=== PATIENT | male | born 1945 | race Caucasian/White ===

== ENCOUNTER → 2017-09-20 17:31 | Outpatient (CLI) | payer MEDICARE, OTHER, SELFPAY ==
--- NOTE | 2017-09-20 12:20 | COLBX_PTH ---
PATIENT: TOMMY KLEIN LOC: [facility] U#:[id number] AGE/SX: 79/M ROOM: RE09/20/[address]: Dr. Mg Norman MD : 1945 BED: DIS: SPEC #: [id number] RECD: 09/20/17 15:33 STATUS: ROHIT JJ #: [id number] ALEYDA: 09/20/17 12:[address]: Mg Norman DEPT: SURGICAL PATHOLOGY RECD BY: Aamir Corea ENTERED: 09/23/17 07:54 SP TYPE: COLON BX OTHR DR: Dr. Denisa Macias, [facility] Tissues: Rectum, NOS Procedures: Surgery Specimen Level IV HEADER OPERATION: Colonoscopy with polypectomy PRE-OP DIAGNOSIS: Rectal bleeding TISSUE SUBMITTED: Rectal polyp MICROSCOPIC DIAGNOSIS Rectal polyp, polypectomy: Fragments of fecal material. Colonic mucosal tissue is not identified. SJ:scott 09/24/18 MICROSCOPIC DESCRIPTION Slides are reviewed. GROSS DESCRIPTION Received in fixative is one container labeled with the patient's name and designated rectal polyp. The specimen predominantly consists of fecal material mixed with possible soares soft tissue, measuring in aggregate 2.5 x 0.6 x 0.1 cm. The specimen is totally submitted in one cassette. BIJU:scott 09/23/17 TC: cannot code CPT: 45200
== END ==
PROVIDERS: Family Provider Internal Medicine; PCP Internal Medicine; Visit Provider Internal Medicine Gastroenterology
DX: K62.1 Rectal polyp (principal)
CPT/HCPCS: 88305

== ENCOUNTER → 2018-02-07 15:04 | Outpatient (CLI) | payer MEDICARE, OTHER, SELFPAY ==
--- NOTE | 2018-02-07 12:17 | RAD_ITS ---
STUDY: X-RAY - RIGHT HAND REASON FOR EXAM: Male, 72 years old. Pain, possible foreign body TECHNIQUE: 2 view(s) of the hand. COMPARISON: None. FINDINGS: Normal radiocarpal articulation. Normal distal radioulnar joint. Normal visualized carpal bones. Normal carpal articulations Normal carpometacarpal articulation of the thumb. Normal second through fifth carpometacarpal joints. Normal metacarpi. There is degenerative arthrosis of the metacarpophalangeal (MCP) joints. Normal interphalangeal joint of the thumb. Normal proximal and distal phalanges of the thumb. Normal metacarpophalangeal joints of the second through fifth fingers. Normal proximal and distal interphalangeal joints of the second through fifth fingers. Normal phalanges of the second through fifth fingers. There is mild soft tissue swelling and a possible foreign body projecting adjacent to the first metacarpal seen only on the lateral view. RAD/Hand 2 Views IMPRESSION: Possible foreign body near the site of entrance marked on the film on the lateral film seen adjacent to the mid first metacarpal Mild arthrosis No demonstrated fracture Electronically Signed: Endy Perla MD at 9:21 EST , Service support ,
== END ==
PROVIDERS: Family Provider Internal Medicine; PCP Internal Medicine; Referring Provider Internal Medicine; Visit Provider Internal Medicine
DX: M79.641 Pain in right hand (principal)
CPT/HCPCS: 73120

== ENCOUNTER → 2018-04-01 13:14 | Outpatient (CLI) | payer MEDICARE, OTHER, SELFPAY ==
[2018-02-27 14:47] VITALS: BMI 29.3
--- NOTE | 2018-04-01 13:19 | US_ITS ---
STUDY: ABDOMINAL ULTRASOUND - RIGHT UPPER QUADRANT REASON FOR VISIT: Male, 72 years old. One-month history of epigastric pain and nausea. TECHNIQUE: Ultrasound evaluation of the right upper quadrant was performed with real-time and static lares-scale imaging. TECHNICAL QUALITY: Adequate. COMPARISON: None. FINDINGS: Liver: The liver measures 16.9 cm. There is normal echogenicity of the liver. The bile ducts are within normal limits. There is hepatic color flow. The direction of portal flow is hepatopetal. There is no demonstrated mass lesion. Gallbladder: Normal distended gallbladder. The gallbladder wall measures 2.4 mm. There is a negative sonographic Arcos's sign. There is no pericholecystic fluid. There are no gallstones. Common Bile Duct (C.B.D.): The common bile duct measures 4.5 mm. Pancreas: Normal size of the head, body and tail of the pancreas. There is increased echogenicity of the pancreas. There is no demonstrated pancreatic mass or cyst. Right Kidney: Normal size of the right kidney. The right kidney measures 12.7 cm x 4.9 cm x 6.6 cm. Normal renal cortex. The right cortex measures 2.0 cm. There is a 1.2 cm x 1 cm x 0.9 cm cyst arising from the lateral aspect of the right kidney. There is no right hydronephrosis. US/Abdomen Limited IMPRESSION: Normal right upper quadrant ultrasound examination. Small right renal cyst. Electronically Signed: Jakob Hunt MD at 14:49 EST Tel [phone], Service support ,
== END ==
PROVIDERS: Family Provider Internal Medicine; PCP Internal Medicine; Referring Provider Internal Medicine; Visit Provider Internal Medicine
DX: R10.13 Epigastric pain (principal)
CPT/HCPCS: 76705

== ENCOUNTER → 2018-04-14 11:18 | Outpatient (CLI) | payer MEDICARE, OTHER, SELFPAY ==
[2018-02-27 14:47] VITALS: BMI 29.3
--- NOTE | 2018-04-14 11:21 | NM_ITS ---
CLINICAL: 72-year-old male with reported history of right upper quadrant abdominal pain. RADIONUCLIDE HEPATOBILIARY SCINTIGRAPHY COMPARISON: Previous CCK hepatobiliary scintigraphy study dated 12/24/2011, abdominal ultrasound report 04/01/2018 FINDINGS: Following the intravenous administration of 5.4 mCi of 99m Tc Mebrofenin, hepatobiliary images reveal: 1. Relatively prompt and homogeneous radiopharmaceutical concentration is noted by a normal sized liver. No parenchymal defects are identified. 2. Gallbladder activity is identified at 10 minutes post radiopharmaceutical administration. 3. Small intestinal tract is observed at 15 minutes following tracer injection. 4. Washout of the radiopharmaceutical by the hepatic parenchyma appears qualitatively normal. Cholecystokinin (0.02 ug/kg) was administered intravenously over a 30-minute period. The post CCK gallbladder ejection fraction calculated at 20 minutes following Cholecystokinin administration was noted to be 93.0 % (normal greater than 35%). During 30 minutes of post CCK imaging, there is no scintigraphic evidence of reflux of the radiotracer into the common hepatic duct or refilling of the gallbladder. 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 NM/Hepatobilliary Img w/Pharm Int IMPRESSION: 1. A gallbladder ejection fraction calculated to be greater than 35% following the administration of Cholecystokinin makes the probability of functional hepatobiliary disease (gallbladder and/or sphincter of Oddi dyskinesia) and/or organic hepatobiliary disease (chronic acalculous cholecystitis and/or cystic duct syndrome) to be low. (Sandy Juan et al, Journal of Nuclear Medicine 32:1695, 1990). 2. There is scintigraphic evidence of transient post CCK duodenal-gastric reflux. (Elza et al, Nucl Med Angelika Corinne Press pg. 35, 1980). 3 . Overall compared to the previous CCK hepatobiliary scintigraphy study dated 12/24/2011, there is no significant interval change. Electronically Signed: Aamir Richmond DO at 23:46 EST Tel , Service support ,
--- OUTSIDE RECORDS SUMMARY | 2018-06-16 21:41 | XMS RPT_ITS | Continuity of Care Document ---
:1945 External Reference #:[id number] Author Organization [facility] Address [address] [place] [address] Phone Care Team Providers Name Role Phone Colleen GARCIA Denisa Unavailable Physical Therapy, [facility] Unavailable Herberth Pollock Unavailable Lawrence Church MD Unavailable Baljit Arcos MD Unavailable Dr. Nik Ch Unavailable Rivera MAO MD , Jhonathan Zelaya Unavailable Santana Zayas Unavailable Dr. Abel Rojas Unavailable Dr. Mg Norman Unavailable Julio Crooks DO Unavailable ALICIA Edge Unavailable Unavailable Pranav Wilkins Unavailable Unavailable Unavailable Unavailable Problems Name Dates Details Abnormal TSH (R79.89, 790.6) Status: Active Adult hypothyroidism (E03.9, 244.9) Status: Active AK (actinic keratosis) (L57.0, 702.0) Status: Active Annual Medicare Physical WITH abnormal findings (Renamed from Encounter for general adult medical examination with abnormal findings) (Z00.01, V70.0) Status: Active Benign prostatic hyperplasia with urinary obstruction and other lower urinary tract symptoms (N40.1, 600.21) Status: Active Bloody stool (K92.1, 578.1) Status: Active BMI 27.0-27.9,adult (Z68.27, V85.23) Status: Active BMI 28.0-28.9,adult (Z68.28, V85.24) Status: Active BMI 28.0-28.9,adult (Z68.28, V85.24) Status: Active BMI 28.0-28.9,adult (Z68.28, V85.24) Status: Active Bronchitis (J40, 490) Status: Active Chronic anticoagulation (Z79.01, V58.61) Comments: plavix -- bc h/o TIA Status: Active Concussion, with loss of consciousness of 30 minutes or less, subsequent encounter (S06.0X1D, V58.89) Status: Active Controlled diabetes mellitus type II without complication (E11.9, 250.00) Comments: pt wants to stay on amaryl bc cost - risk of low bs and cva with age reviewed-- he will work on diet and exercise to bring down and then rev meds Status: Active Cough (R05, 786.2) Status: Active Decreased peripheral vibratory sense (R20.8, 782.0) Status: Active 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, 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) Status: Active Dizziness and giddiness (R42, 780.4) Status: Active EGD - 07-31-07 Status: Active Encounter for Medicare annual wellness exam (Z00.00, V70.0) Status: Active Encounter for screening for malignant neoplasm of colon (Renamed from Special screening for malignant neoplasms, colon) (Z12.11, V76.51) Comments: ordered cologard Status: Active Epigastric pain (R10.13, 789.06) Status: Active Episodic lightheadedness (R42, 780.4) Comments: last carotids ok -- ck vertebrals Status: Active Essential hypertension (I10, 401.9) Comments: spikning intermittently Status: Active Family history of other cardiovascular diseases (Z82.49, V17.4) Status: Active GERD (gastroesophageal reflux disease) (K21.9, 530.81) Status: Active Hand pain, right (M79.641, 729.5) Status: Active Heart Cath Status: Active Heart disease, hypertensive, malignant, 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, 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) Status: Active Heart disease, hypertensive, malignant, 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, 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) Comments: back pain has not let him exercising -- wt gain , bp up etc Status: Active Heart murmur (R01.1, 785.2) Status: Active Heart murmur (R01.1, 785.2) Comments: last echo 04/06 Status: Active Heart murmur, aortic (I35.8, 424.1) Status: Active Heart murmur, systolic (R01.1, 785.2) Status: Active History of transient cerebral ischemia (Renamed from H/O transient cerebral ischemia) (Z86.73, V12.54) Status: Active Hypercholesterolemia (E78.00, 272.0) Status: Active Hypothyroidism (E03.9, 244.9) Status: Active Impingement syndrome of shoulder region, unspecified laterality (M75.40, 726.2) Status: Active Impotence (N52.9, 607.84) Status: Active Injury by nail (W45.0XXA, E920.8) Status: Active Insomnia, unspecified (G47.00, 780.52) Status: Active Low back pain potentially associated with radiculopathy (M54.5, 724.2) Comments: failure to improve after all conservative measures Status: Active Memory loss (R41.3, 780.93) Status: Active MILD SQUAMOUS CELL ATYPIA Status: Active Nausea (R11.0, 787.02) Status: Active Need for pneumococcal vaccination (Z23, V03.82) Status: Active Need for prophylactic vaccination (Renamed from Need for immunization against influenza) (Z23, V04.81) Status: Active Need for prophylactic vaccination and inoculation against influenza (Z23, V04.81) Status: Active Need for prophylactic vaccination and inoculation against influenza (Z23, V04.81) Status: Active Non-smoker (Z78.9, V49.89) Status: Active Non-smoker (Z78.9, V49.89) Status: Active Nutritional counseling (Z71.3, V65.3) Status: Active Occlusion and stenosis of unspecified carotid artery (I65.29, 433.10) Status: Active Other specified dermatoses (L98.8, 702.8) Status: Active Other specified viral infection, in conditions classified elsewhere and of unspecified site (B97.89, 079.89) Status: Active Paresthesia (R20.2, 782.0) Comments: Left foot Status: Active Physical exam WITHOUT abnormal findings (Renamed from Encounter for routine adult health examination without abnormal findings) (Z00.00, V70.0) Status: Active Potassium disorder (E87.8, 276.9) Status: Active Pre-operative general physical examination (Z01.818, V72.83) Status: Active Rash (R21, 782.1) Status: Active Right hand pain (M79.641, 729.5) Status: Active Right upper quadrant pain (R10.11, 789.01) Status: Active Rosacea (L71.9, 695.3) Status: Active RUQ pain (R10.11, 789.01) Status: Active Sacroiliac pain (M53.3, 724.6) Status: Active Screening for prostate cancer (Z12.5, V76.44) Status: Active Shoulder pain (M25.519, 719.41) Status: Active Sore throat (J02.9, 462) Status: Active Subcutaneous nodules (R22.9, 782.2) Status: Active 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 rupture (441.2) Comments: was being followed by dr Guillen but since he is not in [place] anymore so we will sweet pickle maker ball Status: Active TUBULOVILLOUS ADENOMA, NOS Comments: last colonoscopy was 2014 - Status: Active Uncontrolled type II diabetes mellitus (E11.65, 250.02) Status: Active Unspecified contact dermatitis, unspecified cause (L25.9, 692.9) Status: Active Unspecified Diagnosis Status: Active Vision changes (H53.9, 368.9) Status: Active Vitamin D deficiency (E55.9, 268.9) Status: Active Medications Name Dates Details Amaryl 4 MG Oral Tablet 1 (one) Tablet two times daily for 0 days Quantity: 180 {Tablet} Refills: 2 Ordered:27-Dec-2016 Jim Macias DO, DO, Kathleen Start : 27-Dec-2016 Active Atorvastatin Calcium 40 MG Oral Tablet 1 (one) Tablet daily for 0 days Quantity: 30 {Tablet} Refills: 5 Ordered:23-Dec-2017 Jim Macias DO, DO, Kathleen Start : 23-Dec-2017 Active Comments:in place of zocor Atorvastatin Calcium 40 MG Oral Tablet 1 (one) Tablet daily for 0 days Quantity: 90 {Tablet} Refills: 3 Ordered:23-Dec-2017 Jim Macias DO, DO, Kathleen Start : 23-Dec-2017 Active CATAPRES, 0.1MG (Oral Tablet) 1 Tablet up to tid for bp >180 on top for 0 days Quantity: 90 {Tablet} Refills: 1 Ordered:08-Oct-2013 Jim Macias DO, DO, Kathleen Start : 08-Oct-2013 Active Cialis 5 MG Oral Tablet 1 (one) Tablet qd for 90 days Quantity: 90 {Tablet} Refills: 3 Ordered:25-Feb-2018 Jim Macias DO, DO, Kathleen Start : 25-Feb-2018 Active Comments:Dx: BPH Folic Acid 1 MG Oral Tablet 1 Tablet QD for 90 days Quantity: 90 {Tablet} Refills: 3 Ordered:04-Jan-2017 Jim Macias DO, DO, Kathleen Start : 04-Jan-2017 Active Glucophage 1000 MG Oral Tablet 1 (one) tablet bid for 30 days Quantity: 180 {Tablet} Refills: 3 Ordered:11-Feb-2017 Jim Macias DO, DO, Kathleen Start : 11-Feb-2017 Active Januvia 100 MG Oral Tablet 1 (one) Tablet qd for 0 days Quantity: 30 {Tablet} Refills: 3 Ordered:31-Jul-2017 Jim Macias DO, DO, Kathleen Start : 31-Jul-2017 Active Metoprolol Succinate ER 50 MG Oral Tablet Extended Release 24 Hour 1 Tablet ER 24HR qd for 0 days Quantity: 90 {Tablet} Refills: 3 Ordered:06-Nov-2017 Jim Macias DO, DO, Kathleen Start : 06-Nov-2017 Active Metoprolol Succinate ER 50 MG Oral Tablet Extended Release 24 Hour 1 Tablet ER 24HR qd for 0 days Quantity: 90 {Tablet} Refills: 3 Ordered:06-Nov-2017 Jim Macias DO, DO, Kathleen Start : 06-Nov-2017 Active Comments:new dose MULTI-DAY PLUS MINERALS (Oral Tablet) 1 QD for 0 days Refills: 0 Ordered:04-Feb-2009 Anne Edgetive Norvasc 2.5 MG Oral Tablet 1 (one) Tablet Tablet daily for 0 days Quantity: 30 {Tablet} Refills: 3 Ordered:27-Dec-2016 Jim Macias DO, DO, Kathleen Start : 27-Dec-2016 Active Norvasc 2.5 MG Oral Tablet 1 (one) Tablet Tablet daily for 0 days Quantity: 90 {Tablet} Refills: 3 Ordered:27-Dec-2016 Jim Macias DO, DO, Kathleen Start : 27-Dec-2016 Active Pen Yeaddiss 5/16 31G X 8 MM Miscellaneous 1 (one) Misc Misc q week for 30 days Quantity: 1 {Box} Refills: 3 Ordered:01-Apr-2017 KelyAnne LPN Start : 01-Apr-2017 Active Plavix 75 MG Oral Tablet 1 Tablet qd for 30 days Quantity: 90 {Tablet} Refills: 3 Ordered:13-Aug-2017 Jim Macias DO, DO, Kathleen Start : 13-Aug-2017 Active Plavix 75 MG Oral Tablet 1 Tablet qd for 90 days Quantity: 90 {Tablet} Refills: 3 Ordered:13-Aug-2017 Jim Macias DO, DO, Kathleen Start : 13-Aug-2017 Active Protonix 40 MG Oral Tablet Delayed Release [address] qd for 0 days Quantity: 90 {Tablet} Refills: 3 Ordered:01-Apr-2018 Jim Macias DO, DO, Kathleen Start : 01-Apr-2018 Active Comments:may substitute generic Ramipril 5 MG Oral Capsule 1 Capsule bid for 90 days Quantity: 180 {Capsule} Refills: 3 Ordered:06-Nov-2017 Jim Macias DO, DO, Kathleen Start : 06-Nov-2017 Active Synthroid 50 MCG Oral Tablet tad Tablet daily for 90 days Quantity: 90 {Tablet} Refills: 1 Ordered:21-Oct-2017 Jim Macias DO, DO, Kathleen Start : 21-Oct-2017 Active VITAMIN D3, 5000UNIT (Oral Capsule) 2 (two) Capsule qd for 0 days Quantity: 90 {Capsule} Refills: 3 Ordered:10-May-2014 Jim Macias DO, DO, Kathleen Start : 10-May-2014 Active Comments:recently upped TYRELL-D 12 HOUR, 60-120MG (Oral Tablet Extended Release 12 Hour) 1 (one) Tablet ER 12HR Twice daily prn for 0 days Refills: 0 Ordered:17-Aug-2008 Anne Edge LPN Start : 17-Aug-2008 End : 14-Oct-2008 Inactive AMBIEN, 10MG (Oral Tablet) 1 Tablet qhs for 0 days Quantity: 90 {Tablet} Refills: 3 Ordered:04-Sep-2012 Anne Edge LPN Start : 28-Sep-2011 End : 04-Sep-2012 Inactive Comments:ninety ANTIVERT, 25MG (Oral Tablet) 1 Tablet q 8 hr prn for 0 days Quantity: 30 {Tablet} Refills: 0 Ordered:13-Mar-2012 Anne Edge LPN Start : 05-Jan-2011 End : 13-Mar-2012 Inactive ANTIVERT, 25MG (Oral Tablet) 1 (one) Tablet Q 6hr/PRN for 0 days Quantity: 30 {Tablet} Refills: 0 Ordered:17-Aug-2008 Anne Edge LPN Start : 17-Aug-2008 End : 14-Oct-2008 Inactive AUGMENTIN, 875-125MG (Oral Tablet) 1 Tablet bid for 10 days Quantity: 20 {Tablet} Refills: 0 Ordered:27-May-2015 Jim Macias DO, DO, Kathleen Start : 27-May-2015 End : 06-Jun-2015 Inactive BIAXIN, 500MG (Oral Tablet) 1 Tablet bid for 0 days Quantity: 20 {Tablet} Refills: 0 Ordered:10-Aug-2009 Anne Edge LPN Start : 15-Jun-2009 Inactive BYSTOLIC, 5MG (Oral Tablet) 1 (one) Tablet qd for 30 days Quantity: 30 {Tablet} Refills: 3 Ordered:08-Aug-2012 Anne Edge LPN Start : 07-Aug-2012 End : 08-Aug-2012 Inactive CELEBREX, 100MG (Oral Capsule) 1 Capsule Capsule qd for 0 days Quantity: 10 {Capsule} Refills: 0 Ordered:08-Oct-2013 Anne Edge LPN Start : 03-Apr-2013 End : 08-Oct-2013 Inactive CELEBREX, 200MG (Oral Capsule) 1 (one) Capsule qd for 0 days Quantity: 30 {Capsule} Refills: 3 Ordered:31-May-2010 Anne Edge LPN Start : 07-Jul-2009 End : 31-May-2010 Inactive CHERATUSSIN AC, 100-10MG/5ML (Oral Solution) 1-2 Teaspoon qhs prn cough for 0 days Quantity: 6 {Ounce} Refills: 0 Ordered:10-May-2014 Anne Edge LPN Start : 23-Mar-2014 End : 10-May-2014 Inactive Chlorthalidone 25 MG Oral Tablet 1 Tablet qd for 0 days Quantity: 90 {Tablet} Refills: 3 Ordered:31-Jul-2017 Anne Edge LPN Start : 08-Oct-2013 End : 31-Jul-2017 Inactive CIALIS, 20MG (Oral Tablet) 1 Tablet x1 prn for 0 days Quantity: 10 {Tablet} Refills: 3 Ordered:08-Jun-2011 Anne Edge LPN Start : 08-Jun-2011 End : 08-Jun-2011 Inactive Etodolac ER 400 MG Oral Tablet Extended Release 24 Hour 2 (two) Tablet ER 24HR qd with food for 0 days Quantity: 30 {Tablet} Refills: 0 Ordered:24-Sep-2016 Jim Macias DO, DO, Kathleen Start : 10-Sep-2016 End : 24-Sep-2016 Inactive FINACEA, 15% (External Gel) apply to affected area Gel Twice daily for 0 days Quantity: 45 {Gel} Refills: 0 Ordered:17-Dec-2007 Anne Edge LPN Start : 17-Dec-2007 End : 03-Mar-2008 Inactive Comments:disregard rx for daily use psl FISH OIL MAXIMUM STRENGTH, 1200MG (Oral Capsule) 2 bid for 0 days Refills: 0 Ordered:08-Jun-2011 Anne Edge LPN End : 08-Jun-2011 Inactive FLEXERIL, 10MG (Oral Tablet) 1 (one) Tablet Twice daily prn for 0 days Quantity: 20 {Tablet} Refills: 0 Ordered:14-Oct-2008 Anne Edge LPN Start : 14-Oct-2008 End : 25-Oct-2008 Inactive HYDROCHLOROTHIAZIDE, 25MG (Oral Tablet) 1 Tablet QD for 0 days Quantity: 30 {Tablet} Refills: 5 Ordered:03-Mar-2008 Anne Edge LPN Start : 03-Mar-2008 End : 17-Aug-2008 Inactive JUBLIA, 10% (External Solution) uad (10 %) Inactive Comments:Trillium [place] Devil Levitra 10 MG Oral Tablet 1 Tablet uad for 0 days Quantity: 8 {Tablet} Refills: 3 Ordered:31-Jul-2017 Anne Edge LPN Start : 13-Dec-2011 End : 31-Jul-2017 Inactive Comments:take 1 hr prior to intercourse LODINE XL, 400MG (Oral Tablet Extended Release 24 Hour) 2 (two) Tablet ER 24HR Daily for 0 days Quantity: 30 {Tablet_ER_24HR} Refills: 0 Ordered:14-Oct-2008 Anne Edge LPN Start : 14-Oct-2008 End : 25-Oct-2008 Inactive NASACORT AQ, 55MCG/ACT (Nasal Aerosol Solution) 2 (two) Aerosol Soln Daily for 0 days Refills: 0 Ordered:13-Dec-2011 Anne Edge LPN Start : 05-Jan-2011 End : 13-Dec-2011 Inactive Niaspan 500 MG Oral Tablet Extended Release 1 (one) Tablet ER daily for 0 days Quantity: 90 {Tablet_ER} Refills: 3 Ordered:31-Jul-2017 Anne Edge LPN Start : 08-Oct-2013 End : 31-Jul-2017 Inactive OMEPRAZOLE, 20MG (Oral Capsule Delayed Release) 1 (one) Capsule DR Daily for 0 days Quantity: 30 {Capsule_DR} Refills: 6 Ordered:31-Mar-2007 Anne Edge LPN Start : 31-Mar-2007 End : 07-Nov-2007 Inactive OMNARIS, 50MCG/ACT (Nasal Suspension) 2 (two) Suspension qd for 0 days Quantity: 1 {Suspension} Refills: 0 Ordered:31-May-2010 Anne Edge LPN Start : 23-Feb-2010 End : 31-May-2010 Inactive ProAir HFA 108 (90 Base) MCG/ACT Inhalation Aerosol Solution 2 (two) Puff Puff tid for 0 days Quantity: 1 {Inhaler} Refills: 0 Ordered:10-Sep-2016 Anne Edge LPN Start : 23-Mar-2014 End : 10-Sep-2016 Inactive PROMETHAZINE HCL, 12.5MG (Oral Tablet) 1-2 Tablet q 8 hr prn for 0 days Quantity: 20 {Tablet} Refills: 0 Ordered:13-Mar-2012 Anne Edge LPN Start : 05-Jan-2011 End : 13-Mar-2012 Inactive Comments:twenty SPECTAZOLE, 1% (External Cream) uad Cream BID for 0 days Quantity: 45 {Cream} Refills: 0 Ordered:31-Mar-2007 Anne Edge LPN Start : 31-Mar-2007 End : 07-Nov-2007 Inactive SULAR, 10MG (Oral Tablet Extended Release 24 Hour) 1 (one) Tablet ER 24HR Daily for 0 days Refills: 0 Ordered:29-Nov-2006 Brittaney Nina Start : 29-Nov-2006 End : 31-Mar-2007 Inactive Terbinafine HCl 250 MG Oral Tablet 1 Tablet qd for 90 days Quantity: 90 {Tablet} Refills: 3 Ordered:31-Jul-2017 Anne Edge LPN Start : 08-Oct-2013 End : 31-Jul-2017 Inactive VITAMIN E, 100UNIT (Oral Capsule) Not sure Not sure for 0 days Refills: 0 Ordered:31-Mar-2007 Brittaney Nina End : 31-Mar-2007 Inactive Zithromax Z-Luke 250 MG Oral Tablet 1 (one) Tablet Tablet tad for 0 days Quantity: 1 {Package} Refills: 0 Ordered:10-Sep-2016 Anne Edge LPN Start : 03-May-2016 End : 10-Sep-2016 Inactive Zithromax Z-Luke 250 MG Oral Tablet tad Tablet qd for 0 days Quantity: 1 {Package} Refills: 0 Ordered:31-Jul-2017 Anne Edge LPN Start : 15-May-2017 End : 31-Jul-2017 Inactive ASPIRIN BUF([id number]), 325MG (Oral Tablet) 1 (one) Tablet Daily for 0 days Refills: 0 Ordered:15-Sep-2007 Anne Edge LPN Start : 15-Sep-2007 End : 04-Sep-2012 Discontinued Comments:This order discontinued per [facility]. ASPIRIN LOW DOSE, 81MG (Oral Tablet) 1 Tablet QD for 0 days Refills: 0 Ordered:15-Sep-2007 Jim Macias DO, DO, Kathleen Start : 15-Sep-2007 End : 15-Sep-2007 Discontinued Bydureon 2 MG Subcutaneous Pen-injector 2 (two) Milligram qweek for 30 days Quantity: 1 {Box} Refills: 3 Ordered:27-May-2017 Colleen GARCIAJim DO, Kathleen Start : 27-May-2017 End : 27-May-2017 Discontinued Comments:called in to gavino hancock subcutaneous METFORMIN HCL, 1000MG (OSM) (Oral Tablet Extended Release 24 Hour) 2 (two) Tablet ER 24HR Daily for 0 days Refills: 0 Ordered:28-Sep-2009 Lorraine Johnston RN Start : 27-Dec-2008 End : 28-Sep-2009 Discontinued Comments:This order discontinued per [facility]. METROGEL, 0.75% (External Gel) 1 BID PRN for 0 days Refills: 0 Ordered:04-Sep-2012 Anne Edge LPN End : 04-Sep-2012 Discontinued Comments:This order discontinued per [facility]. NEXIUM, 20MG (Oral Capsule Delayed Release) Not sure - generic Not sure for 0 days Refills: 0 Ordered:26-Jul-2006 Lorraine Johnston RN End : 26-Jul-2006 Discontinued VIAGRA, 100MG (Oral Tablet) 1 (one) Tablet Tablet uad for 0 days Quantity: 12 {Tablet} Refills: 5 Ordered:19-Jan-2015 ColleenJim pratt DO, DO, Kathleen Start : 19-Jan-2015 End : 19-Jan-2015 Discontinued VITAMIN C, 100MG (Oral Tablet Chewable) Not sure Not sure for 0 days Refills: 0 Ordered:04-Nov-2006 Lisa Jeter End : 04-Nov-2006 Discontinued ZOCOR, 40MG (Oral Tablet) 1 Tablet Q HS for 0 days Quantity: 90 {Tablet} Refills: 3 Ordered:08-Jan-2014 Taylor Ascencio MD Start : 08-Jan-2014 End : 08-Jan-2014 Discontinued Comments:new dose Allergies and Adverse Reactions Name Dates Details Seafood (Allergy) Status: Active Shellfish (Allergy) Status: Active Past Medical History Name Dates Details Abdominal pain, acute, right upper quadrant (R10.11, 789.01) Comments: still present but improved 1-2/10 Status: Inactive as of 13-Mar-2012 Abnormal blood chemistry (R79.9, 790.6) Comments: elevated fasting BS Status: Resolved as of 25-Oct-2008 Abnormal cardiac function test (R94.30, 794.30) Status: Resolved as of 25-Oct-[address] scan (793.99) Status: Inactive as of 12-Dec-2016 Acute pain of right knee (M25.561, 719.46) Status: Inactive as of 06-Nov-2017 Benign paroxysmal positional vertigo (H81.10, 386.11) Status: Resolved as of 25-Oct-2008 Body aches (R52, 780.96) Status: Inactive as of 08-Jun-2016 Bronchitis (J40, 490) Status: Inactive as of 21-May-2016 Concussion, with loss of consciousness of 30 minutes or less, initial encounter (S06.0X1A, 850.11) Status: Inactive as of 30-May-2016 Cough (R05, 786.2) Status: Inactive as of 08-Jun-2016 Epistaxis (R04.0, 784.7) Comments: got cauterized - dr lawrence church Status: Resolved as of 15-Sep-2012 Eustachian tube dysfunction (H69.80, 381.81) Status: Resolved as of 25-Oct-2008 Fall from skis, initial encounter (V00.321A, E885.3) Status: Inactive as of 30-May-2016 Flu-like symptoms (R68.89, 780.99) Status: Inactive as of 30-May-2016 Hip pain (M25.559, 719.45) Status: Inactive as of 21-Feb-2015 Hypertensive urgency (I16.0, 401.9) Comments: ekg july 29 was okonly sx nose bleed Status: Resolved as of 04-Sep-2012 LIGHTHEADEDNESS (780.4) Status: Inactive as of 17-Aug-2008 Low back pain (M54.5, 724.2) Status: Inactive as of 13-Mar-2012 Muscle spasm (M62.838, 728.85) Status: Inactive as of 10-Aug-2009 Neoplasm of uncertain behavior of skin (D48.5, 238.2) Status: Inactive as of 17-Aug-2008 Other diseases of vocal cords (J38.3, 478.5) Status: Inactive as of 08-Jun-2016 Other symptoms and signs involving general sensations and perceptions (R44.8, 799.89) Status: Inactive as of 13-Mar-2012 Plantar fasciitis, right (M72.2, 728.71) Comments: strectghinb icving and nsaid- iof not better refer pod Status: Resolved as of 01-Apr-2017 Slurred speech (R47.81, 784.59) Status: Resolved as of 15-Sep-2012 TINEA PEDIS (110.4) Status: Inactive as of 17-Aug-2008 Traumatic head injury with multiple lacerations, initial encounter (S09.90XA, 959.01) Status: Inactive as of 30-May-2016 Procedures Date Value Details 01-Apr-2018 Abdomen Limited Result: Comments: See Note; NOTES: [facility] Imaging Services [address] [place] [address] Abdomen Limited MR#: [id number] Acct: [id number] Name: YOHANNES CADET Rep #: [id number] : 1945 M 72 From: Jakob Hunt MD PCP: Denisa Macias DO Status: REG CLI Study: Abdomen Limited Date of Exam: 04/01/18 Exam# [id number] Ordering Dr: Denisa Macias DO STUDY: ABDOMINAL UL TRASOUND - RIGHT UPPER QUADRANT REASON FOR VISIT: Male, 72 years old. One-month history of epigastric pain and nausea. TECHNIQUE: Ultrasound evaluation of the right upper quadrant was performed with r eal-time and static lares-scale imaging. TECHNICAL QUALITY: Adequate. COMPARISON: None. FINDINGS: Liver: The liver measures 16.9 cm. There is normal echogenicity o f the liver. The bile ducts are within normal limits. There is hepatic color flow. The direction of portal flow is hepatopetal. There is no demonstrated mass lesion. Gallbladder: Normal distended gallb ladder. The gallbladder wall measures 2.4 mm. There is a negative sonographic Arcos's sign. There is no pericholecystic fluid. There are no gallstones. Common Bile Duct (C.B.D.): The common bile duct measures 4.5 mm. Pancreas: Normal size of the head, body and tail of the pancreas. There is increased echogenicity of the pancreas. There is no demonstrated pancreatic mass or cyst. Right Kidney: Norm al size of the right kidney. The right kidney measures 12.7 cm x 4.9 cm x 6.6 cm. Normal renal cortex. The right cortex measures 2.0 cm. There is a 1.2 cm x 1 cm x 0.9 cm cyst arising from the lateral a spect of the right kidney. There is no right hydronephrosis. US/Abdomen Limited IMPRESSION: Normal right upper quadrant ultrasound examination. Small right renal cyst. Electronically Signed: Jakob Hunt MD at 14:49 EST Tel [phone], Service support , CC: Denisa Macias DO Homebound Teacher: Signed 28-Feb-2018 Surgery Visit Report Result: Comments: See Note; NOTES: [facility] [address] [place] [address]. 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: No Is patient in pain ?: No Allergies shellfish derived Allergy (Mild, Verified 02/27/18 14:47) hives Medications amlodipine 2.5 mg tablet 2.5 mg PO DAILY 02/27/18 [History Confirmed 02/27/18] atorvastatin 40 mg tablet 4 0 mg PO DAILY 02/27/18 [History Confirmed 02/27/18] cholecalciferol (vitamin D3) 5,000 unit capsule 5,000 unit PO DAILY 02/27/18 [History Confirmed 02/27/18] clonidine HCl 0.1 mg tablet 0.1 mg PO TID [History Confirmed 02/27/18] clopidogrel 75 mg tablet 75 mg PO DAILY 02/27/18 [History Confirmed 02/27/18] folic acid 1 mg tablet 1 mg PO DAILY 02/27/18 [History Confirmed 02/27/18] glimepiride 4 mg tablet 4 mg PO BID tab 02/27/18 [History Confirmed 02/27/18] levothyroxine 50 mcg tablet 50 mcg PO DAILY 02/27/18 [History Confirmed 02/27/18] metformin 1,000 mg tablet 1,000 mg PO BID 02/27/18 [His tory Confirmed 02/27/18] metoprolol succinate ER 50 mg capsule sprinkle, ext. release 24 hr 50 mg PO DAILY 02/27/18 [History Confirmed 02/27/18] multivitamin,ix-vzyp-fmmimltm tablet 1 tab PO DAILY 02/27 [History Confirmed 02/27/18] ramipril 5 mg capsule 5 mg PO DAILY 02/27/18 [History Confirmed 02/27/18] sitagliptin 100 mg tablet 100 mg PO DAILY 02/27/18 [History Confirmed 02/27/18] [facility] Medical History Diabetes mellitus (Acute) Hypothyroidism (Acute) TIA (transient ischemic attack) (Acute) HTN (hypertension) (Chronic) Surgical History (Revi ewed 02/28/18 @ 08:23 by Jhonathan Stafford MD) History of colonoscopy (Acute) History of tonsillectomy (Acute) History of vasectomy (Acute) Family History Father Heart disease Cancer brain Myocardial infarction CVA (cerebral vascular accident) Social History Smoking Status: Never smoker HPI HPI HPI: YOHANNES CADET, is a 72 M who presents to the [facility] today for evaluation of a questionable foreign body to his right hand. 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 He removed the nail obtained a tetanus shot and since then he has noticed that there is still a slight bump in the area and an x-ray was obtained show ing a possible foreign body near the site of entry marked on the film on the lateral area adjacent to the mid first metacarpal. Patient states that he really has no symptomatology at all occasionally h e will feel like something is uncomfortable when he pushes on the palmar aspect of his right head but this is actually been improving over the last month. He has had no drainage she has had no numbness or tingling down his hand and knees have full function of his hand ever since the incident ROS General General: No weight change, appetite, fatigue, colon cancer, breast cancer or weakness HEENT HEEN T: No difficulty swallowing, eye injury, eye surgery, swollen glands or hoarseness Endo Endocrine: Yes thyroid disease and diabetes mellitus; no thyroid cancer, Hair loss, heat intolerance or cold intol erance Cardio Cardiovascular: Yes high blood pressure; no murmur, pacemaker, heart disease, atrial fibrillation, heart attack, heart stent, palpitations, shortness of breat with exertion or chest pain P sych Psychiatric: No depression, anxiety or hearing voices Resp Respiratory: No shortness of breath, No sleep apnea, No cough, No COPD, No asthma, No emphysema, No wheezing Gastro Gastrointestinal: No a bdominal pain, No nausea or vomiting, No diarrhea, No constipation, No blood in stool, No acid reflux, No hemorrhoids, No ulcers, No gallbladder problem, No black,tarry stools Caleb Hematologic: Yes bloo d thinners, No blood disorders, No bleeding, No anemia, No blood clots Neuro Neurologic: No system reviewed and no additional complaints, except as docu, No as per HPI, No abnormal walking, No abnormal hearing, No abnormal movements, No abnormal speech, No behavioral changes, No burning sensations, No confusion, No seizure-like activity, No unsteadiness, No dizziness, No localized weakness, No frequen t falls, No headache(s), No lack of coordination, No loss of vision, No memory loss, No numbness, No other visual disturbances, No radiating pain, No restless legs, No sensory deficit, No fainting, No t ingling, No tremor(s), No weakness, Yes other (TIA) Exam Cardio Heart Sounds: no murmurs Extrem Other: On the palmar surface of his right he had is an obvious site where the entry of the nail happened . And it feels like the skin there is still healing and is slightly firm there is no induration he has no pain to deep palpation he has no signs of cellulitis he has normal function of his hand with ext ension and flexion and cutaneous sensation at the tip of his fingers Assessment AND Plan Problems 1. Foreign body of right hand, initial encounter S60.554I Plan At this point I do not think there is any surgical intervention that is needed. Continue to improve he has no localizing signs or symptoms of an infection or sequelae of injury to the nerves secondary to the incident. He can follow-up with me on an as-needed basis. I do not think that there is correlation with x-ray findings and physical exam x-ray findings medic same if there was something deep within the tissue itself physical exam make s you think that there is something superficial in the hand skin. I do not think there is any benefit to doing any surgeries on him at this time. Coding Level of Care Code Off vis,new,level 2 Diagnos es Foreign body of right hand, initial encounter S60.989F Encounter type: initial encounter Laterality: right 02/28/18 0826 <Electronically signed by Jhonathan Stafford MD> Date __ Jhonathan Stafford MD Cosigner Signature: Date (if applicable) CC: Denisa Macias DO 07-Feb-2018 Hand 2 Views Result: Comments: See Note; NOTES: [facility] Imaging Services [address] [place] [place] [address] Hand 2 Views MR#: [id number] Acct: [id number] Name: LATOYAYOHANNES F Rep #: [id number] : 0 1945 M 72 From: Morales Perla MD PCP: Denisa Macias DO Status: REG CLI Study: Hand 2 Views Date of Exam: 02/07/18 Exam# [id number] Ordering Dr: Denisa Macias DO STUDY: X-RAY - RIGHT HAND REASO N FOR EXAM: Male, 72 years old. Pain, possible foreign body TECHNIQUE: 2 view(s) of the hand. COMPARISON: None. FINDINGS: Normal radiocarpal articulation. Normal d istal radioulnar joint. Normal visualized carpal bones. Normal carpal articulations Normal carpometacarpal articulation of the thumb. Normal second through fifth carpometacarpal joints. Normal metaca rpi. There is degenerative arthrosis of the metacarpophalangeal (MCP) joints. Normal interphalangeal joint of the thumb. Normal proximal and distal phalanges of the thumb. Normal metacarpophalangeal j oints of the second through fifth fingers. Normal proximal and distal interphalangeal joints of the second through fifth fingers. Normal phalanges of the second through fifth fingers. There is mild sof t tissue swelling and a possible foreign body projecting adjacent to the first metacarpal seen only on the lateral view. RAD/Hand 2 Views IMPRESS ION: Possible foreign body near the site of entrance marked on the film on the lateral film seen adjacent to the mid first metacarpal Mild arthrosis No demonstrated fracture Electronically Signed: Guillermo Perla MD at 9:21 EST , Service support , CC: Denisa Macias DO Homebound Teacher: Signed 05-Dec-2016 PT D/C Summary (1) Result: Comments: See Note; NOTES: [facility] [address] [place] [address]. [address] [place] [address] Fax REHABILITATION SERVICES DISCHAR GE SUMMARY MR#: [id number] Acct: [id number] Name: YOHANNES CADET Rep #: [id number] : 1945 71 From: Aftab Mendez PT, ATC Referring DrAddi: Nik Ch DPM Status: REG RCR Insurance: MEDIC ARE PART A B [employer] FOR [employer] HP - PT D/C Summary It has been my pleasure to treat YOHANNES CADET under orders from Nik Ch, for the diagnosis of R plantarfascitis for a total of 14 visit (s). Discharge Date: Please see the following information for a summary of their discharge status. - Subjective Subjective: Mild pain this date - Pain R foot Pain Intensity (Out of 10): 1 - Obj ective Objective/Function: Pt rosendo Rx well. Pt had no pain after Rx. Pt has achieved Rx goals. - Goals Goal 1:: Decrease R foot pain x 50% to aid with ambulation Goal 2:: Increase R ankle DF ROM x 10 de grees to aid with decreasing R foot pain Goal 3:: I with HEP - Plan Plan: Discharge - D/C Information If there are questions or concerns regarding this patient's physical therapy, please feel free to call me at [phone]. Thank you for the referral of this patient. Sincerely, Aftab Mendez, PT, <Electronically signed by Aftab Mendez PT, ATC> 12/05/16 1100 CC: Nik valdes DPM; Denisa Macias DO [facility] Signed 09-Oct-2016 Inital Evaluation (1) - PT Result: Comments: See Note; NOTES: [facility] [address] [facility] [place] [address] Fax REHABILITATION SERVICES INITIAL EVALUATION MR#: [id number] Acct: [id number] Name: YOHANNES CADET Rep #: [id number] : 1945 71 From: Aftab Mendez PT, ATC Referring DrAddi: Nik Ch DPM Status: REG RCR Insurance: [facility] PART A B [employer]PS FOR LIFE Patient's Visit Information YOHANNES CADET is a 71 year old M referred to Physical Therapy by Nik Ch with a diagnosis of R plantarfascitis. Date of Evalua tion: 10/09/16 Physical Therapist: Aftab Mendez, PT, - Visit Plan Frequency: 2-3x /Week Duration: 4 Weeks Plan: R ankle stretching, DTR, stick rollout, foam roller, US and HEP - Subjective Subject viviana: Pt reports he has had R foot pain for a couple weeks. Pt reports he has been walking 10-15 miles per day, and that may be what provoked his pain. 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 Pt reports he has had this pain in the past, but it just went away. No T or N in R foot. Pt reports he does wear a DF boot to stretch out his foot, which he is able to we ar for 1/2 hour. No sleep diff at this time. Pt reports he has had xrays which reveal he has a spur in his R foot. Pt reports he is limited mostly with prolonged walking at this time. 2/10 at rest, 7/10 at worst - Pain R foot Pain Intensity (Out of 10): 2 Pain Intensity Range: 7 - Objective Palpation: Tender on ant heel region. No obvious deformity. Neuro: B LE sensation is WNL to light touch. RO M: L ankle DF= 2, PF= 60; R ankle DF= 3, PF= 60. MMT: 5/5 throughout B ankles - Goals Goal 1:: Decrease R foot pain x 50% to aid with ambulation Goal Time Frame: 2-4 Weeks Goal 2:: Increase R ankle DF ROM x 10 degrees to aid with decreasing R foot pain Goal Time Frame: 2-4 Weeks Goal 3:: I with HEP Goal Time Frame: 2-4 Weeks - Rehabilitation Potential Physical Therapy Diagnosis: R foot pain and limi barb ability to ambulate secondary to R plantarfascitis Rehabilitation Potential: Good - Anticipated Interventions Patient/Client Instruction: Educate patient on: Condition, Plan of Care For the Purpose of:: To improve self management Therapeutic Exercise to Include: Passive ROM, Active ROM For the Purpose of:: To decrease pain, To increase ROM Manual Therapy Techniques to Include: Soft tissue mobiliz ation For the Purpose of:: To decrease pain, To increase ROM Ultrasound (thermal/non thermal): Yes For the Purpose of:: To decrease pain Thank you for the opportunity to evaluate your patient. For Medicare and Medicare HMO plans, please review the plan of care and approve it. It will need to be FAXED BACK to us at [phone] for Medicare purposes. Please let me know if there are questions or concerns regarding this plan of care. Physician Signature: Date: <Electronically signed by Aftab Mendez PT, ATC> 1001 CC: Nik Ch DPM; Denisa Macias DO [facility] Signed For Medicare only, by signing this I certify the plan of care. Physicians Signature Date 21-May-2016 Brain/Head without Contrast Result: Comments: See Note; NOTES: [facility] Imaging Services [address] [place] [address] Verdana 4d Brain/Head without Contrast MR#: [id number] Acct: [id number] Name: YOHANNES CADET Rep #: [id number] : 1945 M 70 From: Sincere Solorio DO PCP: Denisa Macias DO Status: REG CLI Study: Brain/Head without Contrast Date of Exam: 05/21/16 Exam# [id number] Ordering Dr: Denisa Macias DO STUDY: CT BRAIN WITHOUT CONTRAST REASON FOR EXAM: Male, 70 years old. Head injury, status post fall yesterday. Patient on blood thinners RADIATION DOSAGE (If Supplied By Facility): CTDIv ol = ( 60.81 ) mGy, DLP = ( 1089.89 ) mGycm TECHNIQUE: Transaxial CT imaging of the brain was performed without administration of intravenous contrast material. Sagittal and coronal reconstructed image s are provided and reviewed. Individualized dose optimization techniques were used for this CT. COMPARISON: 08/04/2012 FINDINGS: Vascular calcifications are seen. N ormal calvarium. There is mild cerebral atrophy with widening of the extra-axial spaces and ventricular dilatation. There are areas of decreased attenuation within the white matter tracts of the suprat entorial brain, consistent with microvascular disease changes. Normal basal ganglia and thalami. Normal brainstem. There is mild cerebellar atrophy. There is no intracranial hemorrhage. There are no fi ndings of an acute ischemic infarction. Normal visualized paranasal sinuses. CT/Brain/Head without Contrast IMPRESSION: Chronic involutional marce nges. No acute intracranial abnormality. Electronically Signed: Sincere Solorio DO at 14:26 EST Tel , Service support [phone], CC: Denisa Macias DO Homebound Teacher: Signed 14-Nov-2015 Echocardiogram Complete Result: Comments: See Note; NOTES: [facility] Cardiovascular Services [address] [place] [id number] Echo Complete 11/14/15 1303 MR#: [id number] Acct: [id number] Name: YOHANNES CADET Rep #: [id number] : 1945 70 From: Layo Raymond MD Attending Dr: Denisa Macias DO Status: REG CLI Ordering Dr: Denisa Macias DO Date: 11/14/15 [facility]: [facility] Sex: M C Admitted: Reason Fo r Study: MURMUR Procedure This was a 2D Doppler, Color Flow transthoracic echocardiogram. Exam performed in department. Left Ventricle Normal LV size. Left ventricular systolic function is normal. The estimated ejection fraction is 60 %. No regional wall motion abnormalities noted. Right Ventricle Normal RV size. Normal systolic function. Atria Normal left atrium. Normal right atrium. Mitral Valv e Normal mitral valve. Mild (1+) eccentric mitral valve insufficiency. Tricuspid Valve Normal tricuspid valve. Mild tricuspid valve insufficiency. Aortic Valve Trisinus/trileaflet aortic valve. Pulmon ic Valve Normal pulmonic valve. Great Vessels Normal aortic root. The pulmonary artery is normal size. Normal inferior vena cava. Pericardium/Pleural No pericardial effusion. MMode/2D Measurements &a mp;#38; Calculations LVIDd: 4.5 cm IVSd: 1.3 cm Ao root diam: 3.9 cm LVIDs: 2.9 cm LVPWd: 1.1 cm LA dimension: 3.3 cm RVDd: 3.7 cm FS: 35.7 % LAV(MOD-bp): 50.9 ml EDV(MOD-sp2): 153.8 ml SV(MOD-sp2): 96.4 ml LAV(MOD-bp) Indexed: 22.9 ml/m2 EF(MOD-sp2): 62.7 % LAV(MOD-sp2): 45.3 ml LAV(MOD-sp4): 51.1 ml LA A4 area: 17.6 cm2 RA A4 area: 15.5 cm2 Doppler Measurements & Calculations MV E max siav: 81.9 cm/sec Lat Peak E' Siva: 11.1 cm/s ec Med Peak E' Siva: 6.1 cm/sec MV A max siva: 80.7 cm/sec E/E' lat: 7.4 E/E' med: 13.4 MV E/A: 1.0 Ao V2 max: 216.7 cm/se c LV V1 max: 110.3 cm/sec PA V2 max: 104.7 cm/sec Ao max P.8 mmHg LV V1 max P.9 mmHg Ao V2 mean: 132.6 cm/sec LV V1 mean P.3 mmHg Ao mean P.1 mmHg LV V1 mean: 70.1 cm/sec Ao V2 VTI: 40. 7 cm LV V1 VTI: 26.1 cm Interpretation Summary Normal LV size. Left ventricular systolic function is normal. The estimated ejection fraction is 60 %. Mild (1+) eccentric mitral valve insufficiency. Mil d tricuspid valve insufficiency. Ordering Physician: Denisa Macias Performed By: Zaira Her RDCS 11/14/151648 Date Layo Raymond MD CC: Denisa Macias DO Date Dictated: 10/24 05/10 1303 Date Transcribed: 11/14/151648 Homebound Teacher: Signed 14-Nov-2015 Chest WITH Contrast Result: Comments: See Note; NOTES: [facility] Imaging Services [address] [place] [address] [place] [id number] Verdana 4d Chest WITH Contrast MR#: [id number] Acct: [id number] Name: YOHANNES CADET Rep #: [id number] : 1945 M 70 From: Asia Peres MD PCP: Denisa Macias DO Status: [facility] CLI Study: Chest WITH Contrast Date of Exam: 11/14/15 Exam# [id number] Ordering Dr: Denisa Macias TUDY: CT CHEST WITH CONTRAST REASON FOR EXAM: Male, 70 years old. Heart murmur,? TAA, history of diabetes, hypertension RADIATION DOSAGE (If Supplied By Facility): CTDIvol = ( 17.07 ) mGy, DLP = ( 829 .12 ) mGycm TECHNIQUE: Transaxial 2.5 mm imaging was performed following intravenous administration of 100 ml of Isovue 300 contrast material. Multiplanar coronal and sagittal images were reformatted. There is image blurring as a result of cardiac motion. Diagnostic accuracy is somewhat reduced. However, there is substantial diagnostic information remaining available on this study. Individualized do se optimization techniques were used for this CT. COMPARISON: None. FINDINGS: The lungs are normal. There is no demonstrated pleural abnormality. Normal heart and pericardium. There are mild calcifications of the coronary arteries. Normal mediastinum. Normal hilar regions. Normal enhanced pulmonary arteries. Normal aorta arch and descending thoracic aorta. The re are multi-level degenerative changes of the thoracic spine. There is a small hiatal hernia and a left upper renal pole cyst of 1.4 x 1.5 cm. The visualized upper abdominal aorta is of normal enhance ment in diameter. CT/Chest WITH Contrast IMPRESSION: No abdominal aortic aneurysm, dissection or leak. No pulmonary edema, congestive heart dangelo lure or confluent pneumonia. Mild arteriosclerosis. Other nonacute findings as outlined above. Electronically Signed: Asia Peres MD at 2:25 EDT , Service support , CC: Denisa Macias DO Homebound Teacher: Signed 24-Oct-2015 ELECTROCARDIOGRAM, COMPLETE (ECG) ([id number]) Comments: sinus gabby - no acute chg - same as old and on BB Result: [MEASUREMENTS ANALYSIS] Date of Test: 10/24/2015 09:30:26; Heart Rate: 55; MS Interval: 184; QRS: 105; QT Interval: 404; Corrected QT Interval (QTc): 396; P Wave [place]: 26; QRS Wave [place]: 27; T Wave [place] : 34; Blood Pressure: 138/70 [ECG DIAGNOSTIC STATEMENTS] Date of Test: 10/24/2015 09:30:26; Summary: Sinus Bradycardia WITHIN NORMAL LIMITS 29-Sep-2015 Knee 4 or More Views Result: Comments: See Note; NOTES: [facility] Imaging Services [address] [place] [address] Verdana 4d Knee 4 or More Views MR#: [id number] Acct: [id number] Name: LTAOYAYOHANNES Rep #: [id number] : 1945 [facility] From: Tripp Miller MD PCP: Denisa Macias DO Status: REG CLI Study: Knee 4 or More Views Date of Exam: 09/29/15 Exam# [id number] Ordering Dr: Carrol Bautista DO STUDY: X-RAY - RIGHT KNEE REASON FOR EXAM: Male, 70 years old. The patient. No trauma TECHNIQUE: 4 view(s) of the knee. COMPARISON: None. F INDINGS: Normal visualized distal femur. Normal visualized proximal tibia and fibula. Normal proximal tibiofibular articulation. Normal medial femorotibial compartment. Normal lateral femorotibial compartment. There is moderate degenerative arthrosis of the patellofemoral articulation. The soft tissue structures are unremarkable. IMPRESSION: Moderate art hrosis of the patellofemoral joint Electronically Signed: Tripp Miller MD, FACR at 9:18 EDT , Service support [phone], RAD/Knee 4 or More Views IMPRESSION: Moderate arthrosis of the patellofemoral joint Electronically Signed: Tripp Miller MD, FACR at 9:18 EDT , Service support , CC: Carrol Kirkpatrick DO; Denisa Macias DO Homebound Teacher: Signed 27-Oct-2013 PT Discharge Summary Result: Comments: See Note; NOTES: [facility] [facility] [place] [address] Fax REHABILITATION SERVICES DISCHARGE SUMMARY MR#: [id number] Acct: [id number] Name: YOHANNES CADET Rep #: [id number] : 1945 68 From: Baljit Silva Referring Dr.: Denisa Macias DO Status: PRE RCR Eval Date: Dis charge Date: DATE OF SERVICE: PHYSICIAN: Denisa Macias D.O. This patient by the name of Yohannes Cadet was seen in our clinic with a diagnosis of right SI joint pain, right hip pain. The pat ient received physical therapy, which focused on the flexibility program. Provided the patient with a heel lift as well as some strengthening exercises for his core, abdominal back as well as hip ran ge of motion, flexibility. At this point, the patient hip dysfunction as well as some low back issues which he had in the past. The patient is progressing towards goals. We only saw the patient fo r 3 visits. On last visit, he complained of some slight foot slap. We did some strengthening exercises for his right ankle as well. At this point, he appears to have some isolated pain or isolated w eakness from his foot as well as some weakness in his legs. At this point, the patient was progressing towards his goals with increasing his strength, range of motion and function. He is discharged from our care. He will continue to exercise on his own otherwise. Once again, thank you for this referral. Baljit Silva, PT T: GI JOB: [id number] <Electronically signed by Baljit pantoja > 10/27/13 0758 CC: Signed 27-Jul-2013 Inital Evaluation - PT Result: Comments: See Note; NOTES: [facility] [address] [facility] [address] [place] [address] Fax REHABILITATION SERVICES INITIAL EVALUATION MR#: [id number] Acct: [id number] Name: YOHANNES CADET Rep #: [id number] : 1945 67 From: Baljit Silva Referring Dr.: Denisa Macias DO Status: DIS RCR Insurance: [place] PART A B Eval Date: [employer] DATE OF SERVICE: 07/20/2013 REFERRING PHYSICIAN: Dr. Denisa Macias, Radha. SUBJECTIVE: This patient by the name of Yohannes Cadet who was born on 1945, who was referred to physical therapy with diagnosis of right SI joint pain, hip pain. This patient has a significant history of low back and hip pain for many years. He has received physical therapy in the past for his low back, knee foot and has also complained of some symptoms in his foot. Most recently, he noticed in the morning he has increased stiffness in his lumbosacra l spine, as well as some pain around his right knee is 3/10, low back about 2/10 as well and symptoms in his foot with some pain and numbness. He states when he is walking extended distances he feel s as though that the right foot has a foot drop on it. He gets fatigued and tired as well, pain about half an hour affects his foot, worse in the morning. It is a little better when he is walking. T tete is 0/10 and will increase to 4/10 in his low back. He states that he did have x-rays. We looked at the x-ray, everything was negative. He had some mild arthritis from the acetabulum joint spac e narrowing. 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 His goals are to find why h e has this problems and pains, to care of it. Also to make sure he is able to ski as well. PAST MEDICAL HISTORY: Hypertension, TIA, low back pain, history of a transverse process fracture, osteoar thritis. MEDICATIONS: None. SOCIAL HISTORY: . OBJECTIVE: POSTURE: The patient has a flat lumbar spine. GAIT ASSESSMENT: The patient ambulates with toes out slightly, also noted a sligh t increased calcaneal valgus in heel strike, foot flat. NEUROLOGICAL: Denies numbness/tingling. Reflexes symmetrically elicited L3-L4, L4-L5, L5-S1. Myotome is intact. Lower extremity hamstrings mini joe limited. Piriformis is moderately at loss. Rectus femoris is moderately loss. Lower extremity strength, hip flexors are 4-/5, quadriceps, hamstrings are 4/5, dorsiflexors 4/5, plantar flexors 4/5. Active lumbar range of motion, flexion with functional limitation, extension with functional limitation, side glides with functional limitation. Repeated motion: Flexion, no effect before and after. Extension, end-range pain, no worse afterwards. Hook lying , no effect before and after. Prone press ups, end-range pain, right lumbosacral spine, no worse afterwards. Symmetries: There was n o leg length discrepancy noted, ASIS, PSIS, iliac crest are all equal. Palpation is also unremarkable as well. SPECIAL TESTS: Negative straight leg raise and intact heel-toe walking. Negative lumba r quadrant. Sacrum shear is negative as well. ASSESSMENT AND IMPRESSION: This patient has right low back pain, as well as symptoms radiating to right lumbosacral spine, which appears to be more l ow back and related, although his foot pain may be unrelated due to the patient does have some weakness of his posterior tibialis tendon around his posterior tibialis tendon area he has some tenderne ss, as well as when he stands there is a calcaneal valgus on his right side, although he does have a bilateral pes cavus with higher arch, but appears to have some more stress on his posterior tibi sylvain tendon as his foot mechanics are changing, worse on the right side. The patient could benefit from orthotics for this condition. PROBLEMS: 1. Decreased home exercise program. 2. Decreased pos ture body mechanics. 3. Decrease low back and leg pain. 4. Limited normal functional activities secondary symptomatology of pain in low back and foot. 5. Decreased prophylaxis. GOALS: 1. The karin ent will be independent with home exercise program to self-manage symptoms. 2. The patient will be independent with posture about body mechanics. 3. The patient to reduce symptoms in his low back and leg by at least 75% or greater to improve function, return to all level functional activity and maintain high quality of active lifestyle. 4. The patient will be able to have minimal complaints of pain with all functional activities, walking, standing or job demands, housework chores, ADLs, hobbies, etc., . 5. Prophylaxis home exercise program. PLAN: Plan of care was reviewed with the cherelle pickard. We discussed with the patient rehab potential. We discussed with the patient benefits of physical therapy. We did perform the low functional index scale with a score of 22% and using walking mo bility, moving around G8978 CJ at 20-39% and G8979 mobility goal status at CI 1-19%. Today, we educated the patient on some exercises to include repeat extension in lying, piriformis stretch, supin e hamstring stretch, 10repetitions. I plan to see this patient 3 times a week for the next 4 weeks focusing on home exercise program, posture body mechanics training, posture exercises, lumbar stabi lization, back strengthening, modalities and patient education, lower extremity flexibility ANDbenefits from orthotics. Due to the patient has a bilateral pes cavus as well causing posterior tibiali s stress and he did have a history of using orthotics in the past. We discussed with patient possibly using the [id number] orthotics before he considers fabricated orthotics due to cost. Uzair Silva, PT T: GI JOB: [id number] <Electronically signed by Baljit Silva > 07/27/13 1802 CC: Signed For Medicare only, by signing this I c ertify the plan of care. Physicians Signature Date 09-Jul-2013 Hip min 2 Views Result: Comments: See Note; NOTES: [facility] Imaging Services [address] [place] [address] Radiology Report MR#: [id number] Acct: [id number] Name: YOHANNES CADET Rep #: [id number] : 1945 M 67 From: Jakob Hunt MD PCP: Denisa Macias DO Status: REG CLI Study: Hip min 2 Views Date of Exam: 07/09/13 Exam# [id number] Ordering Dr: Denisa Macias DO STUDY : X-RAY - RIGHT HIP REASON FOR EXAM: Male, 67 years old. Right hip pain. TECHNIQUE: 2 view(s) of the hip. COMPARISON: None. FINDINGS: Normal femoral head, neck, intertrochanteric region and visualized proximal femur. Normal acetabulum. Normal hip joint. Normal visualized superior and inferior pubic rami and ischial tuberosities. IMPRESSION: Normal x-ray examination of the hip. Electronically Signed: Jakob Hunt MD at 14:44 EDT Tel [phone], Service support [phone], Fax CC: Denisa Macias DO Homebound Teacher: Signed 09-Jul-2013 Pelvis 1 or 2 Views Result: Comments: See Note; NOTES: [facility] Imaging Services [address] [place] [address] Radiology Report MR#: [id number] Acct: [id number] Name: YOHANNES CADET Rep #: [id number] : 1945 M 67 From: Jakob Hunt MD PCP: Denisa Macias DO Status: REG CLI Study: Pelvis 1 or 2 Views Date of Exam: 07/09/13 Exam# [id number] Ordering Dr: Denisa Macias DO S TUDY: X-RAY - PELVIS REASON FOR EXAM: Male, 67 years old. Right hip pain. TECHNIQUE: One view of the pelvis was obtained. COMPARISON: None. FINDINGS: There is a non-specific bowel gas pattern. Normal visualized soft tissue structures. Normal bilateral iliac wings, sacroiliac joints and visualized sacrum. Normal visualized bilateral superior and inferio r pubic rami. Normal pubic symphysis. Normal ischial tuberosities. Normal visualized right femoral head. Normal right acetabulum. There is moderate articular joint space narrowing of the right hip. Normal visualized left femoral head. Normal left acetabulum. There is moderate articular joint space narrowing of the left hip. IMPRESSION: Joint space narrowi ng of both hip joints. Electronically Signed: Jakob Hunt MD at 13:32 EDT Tel [phone], Service support [phone], CC: Denisa Macias DO Homebound Teacher: Signed 09-Jul-2013 EKG ([id number]) Comments: nsr no acute chg - ant leads are old Result: [MEASUREMENTS ANALYSIS] Date of Test: 07/09/2013 08:48:02; Heart Rate: 57; MS Interval: 164; QRS: 106; QT Interval: 408; Corrected QT Interval (QTc): 403; P Wave [place]: 25; QRS Wave [place]: 60; T Wave [place] : 62; Blood Pressure: 138/68 [ECG DIAGNOSTIC STATEMENTS] Date of Test: 07/09/2013 08:48:02; Summary: Sinus Bradycardia - Negative precordial T-waves. WITHIN NORMAL LIMITS Immunization Name Dates Details Influenza (3 years and up) on: 05-Jan-2008 Family History Unknown Family Member Name Dates Details Father Comments: [place]/CVA at 84 Status: Active Social History Name Dates Details Alcohol Use Comments: Occasional alcohol use Status: Active Non Smoker/No Tobacco Use Status: Active Tobacco use: Never smoker. Comments: 06/08/11 Status: Active Smoking Status Name Dates Details Never smoker Vital Signs Date Test Result Details 01-Apr-20189:54 Pulse 83 /min Comments: Pattern: Regular Respiration Rate 18 /min Comments: Pattern: Unlabored O2 SAT 96 % Comments: Room air BP Systolic 138 mm[Hg] Comments: Patient Position: Sitting; Cuff Location: Left Arm; Cuff Size: Large BP Diastolic 72 mm[Hg] Comments: Patient Position: Sitting; Cuff Location: Left Arm; Cuff Size: Large Weight 222.125 lb Height 74 in Body Mass Index Calculated 28.52 kg/m2 Body Surface Area Calculated 2.27 m2 :58 Pulse 65 /min Comments: Pattern: Regular Respiration Rate 18 /min Comments: Pattern: Unlabored O2 SAT 95 % Comments: Room air BP Systolic 138 mm[Hg] Comments: Patient Position: Sitting; Cuff Location: Left Arm; Cuff Size: Large BP Diastolic 78 mm[Hg] Comments: Patient Position: Sitting; Cuff Location: Left Arm; Cuff Size: Large Weight 225.125 lb Height 74 in Body Mass Index Calculated 28.9 kg/m2 Body Surface Area Calculated 2.29 m2 :58 Temperature 96 f Comments: Method: Temporal Pulse 69 /min Comments: Pattern: Regular Respiration Rate 16 /min Comments: Pattern: Unlabored O2 SAT 96 % Comments: Room air BP Systolic 118 mm[Hg] Comments: Patient Position: Sitting; Cuff Location: Left Arm; Cuff Size: Standard BP Diastolic 79 mm[Hg] Comments: Patient Position: Sitting; Cuff Location: Left Arm; Cuff Size: Standard Weight 225.5 lb Height 74 in Body Mass Index Calculated 28.95 kg/m2 Body Surface Area Calculated 2.29 m2 :08 Temperature 97.9 f Comments: Method: Temporal Pulse 98 /min Comments: Pattern: Regular Respiration Rate 16 /min Comments: Pattern: Unlabored O2 SAT 96 % Comments: Room air BP Systolic 140 mm[Hg] Comments: Patient Position: Sitting; Cuff Location: Left Arm; Cuff Size: Standard BP Diastolic 74 mm[Hg] Comments: Patient Position: Sitting; Cuff Location: Left Arm; Cuff Size: Standard Weight 219.5 lb Height 74 in Body Mass Index Calculated 28.18 kg/m2 Body Surface Area Calculated 2.26 m2 :47 Pulse 64 /min Comments: Pattern: Regular Respiration Rate 18 /min Comments: Pattern: Unlabored O2 SAT 98 % Comments: Room air BP Systolic 140 mm[Hg] Comments: Patient Position: Sitting; Cuff Location: Left Arm; Cuff Size: Standard BP Diastolic 78 mm[Hg] Comments: Patient Position: Sitting; Cuff Location: Left Arm; Cuff Size: Standard Weight 219.5 lb Height 74 in Body Mass Index Calculated 28.18 kg/m2 Body Surface Area Calculated 2.26 m2 :07 Pulse 62 /min Comments: Pattern: Regular Respiration Rate 18 /min Comments: Pattern: Unlabored O2 SAT 97 % Comments: Room air BP Systolic 126 mm[Hg] Comments: Patient Position: Sitting; Cuff Location: Left Arm; Cuff Size: Large BP Diastolic 74 mm[Hg] Comments: Patient Position: Sitting; Cuff Location: Left Arm; Cuff Size: Large Weight 221.5 lb Height 74 in Body Mass Index Calculated 28.44 kg/m2 Body Surface Area Calculated 2.27 m2 :15 Pulse 78 /min Comments: Pattern: Regular Respiration Rate 18 /min Comments: Pattern: Unlabored O2 SAT 98 % Comments: Room air BP Systolic 128 mm[Hg] Comments: Patient Position: Sitting; Cuff Location: Left Arm; Cuff Size: Large BP Diastolic 78 mm[Hg] Comments: Patient Position: Sitting; Cuff Location: Left Arm; Cuff Size: Large Weight 215.25 lb Height 74 in Body Mass Index Calculated 27.64 kg/m2 Body Surface Area Calculated 2.24 m2 :33 Temperature 97.4 f Comments: Method: Temporal Pulse 81 /min Comments: Pattern: Regular Respiration Rate 18 /min Comments: Pattern: Unlabored O2 SAT 96 % Comments: Room air BP Systolic 120 mm[Hg] Comments: Patient Position: Sitting; Cuff Location: Left Arm; Cuff Size: Large BP Diastolic 62 mm[Hg] Comments: Patient Position: Sitting; Cuff Location: Left Arm; Cuff Size: Large Weight 219.25 lb Height 74 in Body Mass Index Calculated 28.15 kg/m2 Body Surface Area Calculated 2.26 m2 :52 Pulse 54 /min Comments: Pattern: Regular Respiration Rate 18 /min Comments: Pattern: Unlabored O2 SAT 96 % Comments: Room air BP Systolic 128 mm[Hg] Comments: Patient Position: Sitting; Cuff Location: Left Arm; Cuff Size: Large BP Diastolic 78 mm[Hg] Comments: Patient Position: Sitting; Cuff Location: Left Arm; Cuff Size: Large Weight 222.125 lb Height 74 in Body Mass Index Calculated 28.52 kg/m2 Body Surface Area Calculated 2.27 m2 :53 Comments: [facility]inf [facility]. [facility] had a glaucoma test done Pulse 75 /min Comments: Pattern: Regular Respiration Rate 18 /min Comments: Pattern: Unlabored O2 SAT 95 % Comments: Room air BP Systolic 122 mm[Hg] Comments: Patient Position: Sitting; Cuff Location: Left Arm; Cuff Size: Large BP Diastolic 80 mm[Hg] Comments: Patient Position: Sitting; Cuff Location: Left Arm; Cuff Size: Large Weight 221.375 lb Height 74 in Body Mass Index Calculated 28.42 kg/m2 Body Surface Area Calculated 2.27 m2 :39 Pulse 59 /min Comments: Pattern: Regular Respiration Rate 18 /min Comments: Pattern: Unlabored O2 SAT 98 % Comments: Room air BP Systolic 122 mm[Hg] Comments: Patient Position: Sitting; Cuff Location: Left Arm; Cuff Size: Large BP Diastolic 78 mm[Hg] Comments: Patient Position: Sitting; Cuff Location: Left Arm; Cuff Size: Large Weight 226.375 lb Height 74 in Body Mass Index Calculated 29.06 kg/m2 Body Surface Area Calculated 2.29 m2 :57 Comments: his machine got 152/89 Pulse 68 /min Comments: Pattern: Regular Respiration Rate 18 /min Comments: Pattern: Unlabored O2 SAT 96 % Comments: Room air BP Systolic 124 mm[Hg] Comments: Patient Position: Sitting; Cuff Location: Left Arm; Cuff Size: Large BP Diastolic 84 mm[Hg] Comments: Patient Position: Sitting; Cuff Location: Left Arm; Cuff Size: Large Weight 221.5 lb Height 74 in Body Mass Index Calculated 28.44 kg/m2 Body Surface Area Calculated 2.27 m2 :58 Pulse 56 /min Comments: Pattern: Regular Respiration Rate 18 /min Comments: Pattern: Unlabored O2 SAT 95 % Comments: Room air BP Systolic 142 mm[Hg] Comments: Patient Position: Sitting; Cuff Location: Left Arm; Cuff Size: Large BP Diastolic 82 mm[Hg] Comments: Patient Position: Sitting; Cuff Location: Left Arm; Cuff Size: Large Weight 221.5 lb Height 74 in Body Mass Index Calculated 28.44 kg/m2 Body Surface Area Calculated 2.27 m2 :54 Pulse 62 /min Comments: Pattern: Regular Respiration Rate 18 /min Comments: Pattern: Unlabored O2 SAT 95 % Comments: Room air Weight 223.5 lb Height 74 in Body Mass Index Calculated 28.7 kg/m2 Body Surface Area Calculated 2.28 m2 :05 Pulse 64 /min Comments: Pattern: Regular Respiration Rate 18 /min Comments: Pattern: Unlabored O2 SAT 94 % Comments: Room air BP Systolic 132 mm[Hg] Comments: Patient Position: Sitting; Cuff Location: Left Arm; Cuff Size: Large BP Diastolic 78 mm[Hg] Comments: Patient Position: Sitting; Cuff Location: Left Arm; Cuff Size: Large Weight 223.125 lb Height 74 in Body Mass Index Calculated 28.65 kg/m2 Body Surface Area Calculated 2.28 m2 :09 Pulse 64 /min Comments: Pattern: Regular Respiration Rate 18 /min Comments: Pattern: Unlabored O2 SAT 95 % Comments: Room air BP Systolic 122 mm[Hg] Comments: Patient Position: Standing; Cuff Location: Left Arm; Cuff Size: Large BP Diastolic 72 mm[Hg] Comments: Patient Position: Standing; Cuff Location: Left Arm; Cuff Size: Large Weight 219 lb Height 74 in Body Mass Index Calculated 28.12 kg/m2 Body Surface Area Calculated 2.26 m2 :56 Temperature 98.2 f Comments: Method: Temporal Pulse 62 /min Comments: Pattern: Regular Respiration Rate 18 /min Comments: Pattern: Unlabored O2 SAT 97 % Comments: Room air BP Systolic 116 mm[Hg] Comments: Patient Position: Sitting; Cuff Location: Left Arm; Cuff Size: Large BP Diastolic 70 mm[Hg] Comments: Patient Position: Sitting; Cuff Location: Left Arm; Cuff Size: Large Weight 216 lb Height 74 in Body Mass Index Calculated 27.73 kg/m2 Body Surface Area Calculated 2.25 m2 :13 Pulse 66 /min Comments: Pattern: Regular Respiration Rate 18 /min Comments: Pattern: Unlabored O2 SAT 96 % Comments: Room air BP Systolic 124 mm[Hg] Comments: Patient Position: Sitting; Cuff Location: Left Arm; Cuff Size: Large BP Diastolic 72 mm[Hg] Comments: Patient Position: Sitting; Cuff Location: Left Arm; Cuff Size: Large Weight 223 lb Height 74 in Body Mass Index Calculated 28.63 kg/m2 Body Surface Area Calculated 2.28 m2 :27 Pulse 60 /min Comments: Pattern: Regular Respiration Rate 18 /min Comments: Pattern: Unlabored O2 SAT 95 % Comments: Room air BP Systolic 138 mm[Hg] Comments: Patient Position: Sitting; Cuff Location: Left Arm; Cuff Size: Large BP Diastolic 70 mm[Hg] Comments: Patient Position: Sitting; Cuff Location: Left Arm; Cuff Size: Large Weight 226.25 lb Height 74 in Body Mass Index Calculated 29.05 kg/m2 Body Surface Area Calculated 2.29 m2 :07 Pulse 59 /min Comments: Pattern: Regular Respiration Rate 16 /min Comments: Pattern: Unlabored O2 SAT 97 % Comments: Room air BP Systolic 126 mm[Hg] Comments: Patient Position: Sitting; Cuff Location: Left Arm; Cuff Size: Standard BP Diastolic 68 mm[Hg] Comments: Patient Position: Sitting; Cuff Location: Left Arm; Cuff Size: Standard Weight 218.5 lb Height 74 in Body Mass Index Calculated 28.05 kg/m2 Body Surface Area Calculated 2.26 m2 :20 Temperature 97.5 f Comments: Method: Temporal Pulse 76 /min Comments: Pattern: Regular Respiration Rate 18 /min Comments: Pattern: Unlabored O2 SAT 96 % Comments: Room air BP Systolic 150 mm[Hg] Comments: Patient Position: Sitting; Cuff Location: Left Arm; Cuff Size: Large BP Diastolic 80 mm[Hg] Comments: Patient Position: Sitting; Cuff Location: Left Arm; Cuff Size: Large Weight 219.5 lb Height 74 in Body Mass Index Calculated 28.18 kg/m2 Body Surface Area Calculated 2.26 m2 :48 Temperature 97.7 f Comments: Method: Axillary Pulse 63 /min Comments: Pattern: Regular Respiration Rate 18 /min Comments: Pattern: Unlabored O2 SAT 97 % Comments: Room air BP Systolic 122 mm[Hg] Comments: Patient Position: Sitting; Cuff Location: Left Arm; Cuff Size: Large BP Diastolic 64 mm[Hg] Comments: Patient Position: Sitting; Cuff Location: Left Arm; Cuff Size: Large Weight 221.5 lb Height 74 in Body Mass Index Calculated 28.44 kg/m2 Body Surface Area Calculated 2.27 m2 :45 Temperature 97.4 f Comments: Method: Oral Pulse 52 /min Comments: Pattern: Regular Respiration Rate 18 /min Comments: Pattern: Unlabored O2 SAT 98 % Comments: Room air BP Systolic 138 mm[Hg] Comments: Patient Position: Sitting; Cuff Location: Left Arm; Cuff Size: Standard BP Diastolic 78 mm[Hg] Comments: Patient Position: Sitting; Cuff Location: Left Arm; Cuff Size: Standard Weight 210 lb Height 74 in Body Mass Index Calculated 26.96 kg/m2 Body Surface Area Calculated 2.22 m2 :54 Temperature 97 f Comments: Method: Temporal Pulse 78 /min Comments: Pattern: Regular Respiration Rate 16 /min Comments: Pattern: Unlabored O2 SAT 98 % Comments: Room air BP Systolic 128 mm[Hg] Comments: Patient Position: Sitting; Cuff Location: Left Arm; Cuff Size: Standard BP Diastolic 78 mm[Hg] Comments: Patient Position: Sitting; Cuff Location: Left Arm; Cuff Size: Standard Weight 210 lb Height 74 in Body Mass Index Calculated 26.96 kg/m2 Body Surface Area Calculated 2.22 m2 :31 Temperature 96.7 f Comments: Method: Tympanic Pulse 56 /min Comments: Pattern: Regular Respiration Rate 18 /min Comments: Pattern: Unlabored O2 SAT 98 % Comments: Room air BP Systolic 124 mm[Hg] Comments: Patient Position: Sitting; Cuff Location: Left Arm; Cuff Size: Standard BP Diastolic 66 mm[Hg] Comments: Patient Position: Sitting; Cuff Location: Left Arm; Cuff Size: Standard Weight 210.25 lb Height 74 in Body Mass Index Calculated 26.99 kg/m2 Body Surface Area Calculated 2.22 m2 :57 Pulse 68 /min Comments: Pattern: Regular BP Systolic 120 mm[Hg] Comments: Patient Position: Sitting; Cuff Location: Left Arm; Cuff Size: Standard BP Diastolic 78 mm[Hg] Comments: Patient Position: Sitting; Cuff Location: Left Arm; Cuff Size: Standard Weight 234.25 lb Height 74 in Body Mass Index Calculated 30.08 kg/m2 Body Surface Area Calculated 2.32 m2 :12 Pulse 68 /min Comments: Pattern: Regular Respiration Rate 18 /min Comments: Pattern: Unlabored O2 SAT 97 % Comments: Room air BP Systolic 128 mm[Hg] Comments: Patient Position: Sitting; Cuff Location: Left Arm; Cuff Size: Large BP Diastolic 70 mm[Hg] Comments: Patient Position: Sitting; Cuff Location: Left Arm; Cuff Size: Large Weight 234.25 lb Height 74 in Body Mass Index Calculated 30.08 kg/m2 Body Surface Area Calculated 2.32 m2 :24 Comments: supine: 124/78 P 70sittin/80 P 75standin/76 P 78 Temperature 96.5 f Comments: Method: Oral Pulse 74 /min Comments: Pattern: Regular Respiration Rate 18 /min Comments: Pattern: Unlabored O2 SAT 98 % Comments: Room air BP Systolic 110 mm[Hg] Comments: Patient Position: Sitting; Cuff Location: Left Arm; Cuff Size: Standard BP Diastolic 60 mm[Hg] Comments: Patient Position: Sitting; Cuff Location: Left Arm; Cuff Size: Standard Weight 222.5625 lb Height 74 in Body Mass Index Calculated 28.58 kg/m2 Body Surface Area Calculated 2.27 m2 :15 Comments: eye-Dr at [facility] 2013hearing -wnl Pulse 57 /min Comments: Pattern: Regular Respiration Rate 20 /min Comments: Pattern: Unlabored O2 SAT 98 % Comments: Room air BP Systolic 128 mm[Hg] Comments: Patient Position: Sitting; Cuff Location: Left Arm; Cuff Size: Standard BP Diastolic 72 mm[Hg] Comments: Patient Position: Sitting; Cuff Location: Left Arm; Cuff Size: Standard Weight 228.5625 lb Height 74 in Body Mass Index Calculated 29.35 kg/m2 Body Surface Area Calculated 2.3 m2 :40 Temperature 97.9 f Comments: Method: Oral Pulse 72 /min Comments: Pattern: Regular Respiration Rate 18 /min Comments: Pattern: Unlabored BP Systolic 140 mm[Hg] Comments: Patient Position: Sitting; Cuff Location: Left Arm; Cuff Size: Standard BP Diastolic 90 mm[Hg] Comments: Patient Position: Sitting; Cuff Location: Left Arm; Cuff Size: Standard Weight 230 lb Height 74 in Body Mass Index Calculated 29.53 kg/m2 Body Surface Area Calculated 2.31 m2 :47 Pulse 64 /min Comments: Pattern: Regular Respiration Rate 18 /min Comments: Pattern: Unlabored O2 SAT 97 % Comments: Room air BP Systolic 132 mm[Hg] Comments: Patient Position: Sitting; Cuff Location: Left Arm; Cuff Size: Large BP Diastolic 62 mm[Hg] Comments: Patient Position: Sitting; Cuff Location: Left Arm; Cuff Size: Large Weight 230.4375 lb Height 74 in Body Mass Index Calculated 29.59 kg/m2 Body Surface Area Calculated 2.31 m2 :48 Temperature 96.9 f Comments: Method: Oral Pulse 66 /min Comments: Pattern: Regular Respiration Rate 18 /min Comments: Pattern: Unlabored O2 SAT 96 % Comments: Room air BP Systolic 138 mm[Hg] Comments: Patient Position: Sitting; Cuff Location: Left Arm; Cuff Size: Large BP Diastolic 68 mm[Hg] Comments: Patient Position: Sitting; Cuff Location: Left Arm; Cuff Size: Large Weight 227.125 lb Height 74 in Body Mass Index Calculated 29.16 kg/m2 Body Surface Area Calculated 2.29 m2 :46 Pulse 64 /min Comments: Pattern: Regular Respiration Rate 16 /min Comments: Pattern: Unlabored O2 SAT 98 % Comments: Room air BP Systolic 118 mm[Hg] Comments: Patient Position: Sitting; Cuff Location: Left Arm; Cuff Size: Large BP Diastolic 62 mm[Hg] Comments: Patient Position: Sitting; Cuff Location: Left Arm; Cuff Size: Large Weight 227.375 lb Height 74 in Body Mass Index Calculated 29.19 kg/m2 Body Surface Area Calculated 2.3 m2 :03 Temperature 97.6 f Comments: Method: Oral Pulse 68 /min Comments: Pattern: Regular Respiration Rate 18 /min Comments: Pattern: Unlabored BP Systolic 122 mm[Hg] Comments: Patient Position: Sitting; Cuff Location: Left Arm; Cuff Size: Large BP Diastolic 78 mm[Hg] Comments: Patient Position: Sitting; Cuff Location: Left Arm; Cuff Size: Large Weight 227.0625 lb Height 74 in Body Mass Index Calculated 29.15 kg/m2 Body Surface Area Calculated 2.29 m2 :26 Temperature 98 f Comments: Method: Oral Pulse 64 /min Comments: Pattern: Regular Respiration Rate 18 /min Comments: Pattern: Unlabored BP Systolic 124 mm[Hg] Comments: Patient Position: Sitting; Cuff Location: Left Arm; Cuff Size: Standard BP Diastolic 82 mm[Hg] Comments: Patient Position: Sitting; Cuff Location: Left Arm; Cuff Size: Standard Weight 225.4375 lb Height 74 in Body Mass Index Calculated 28.94 kg/m2 Body Surface Area Calculated 2.29 m2 :22 Pulse 60 /min Comments: Pattern: Regular Respiration Rate 18 /min Comments: Pattern: Unlabored BP Systolic 122 mm[Hg] Comments: Patient Position: Sitting; Cuff Location: Left Arm; Cuff Size: Large BP Diastolic 70 mm[Hg] Comments: Patient Position: Sitting; Cuff Location: Left Arm; Cuff Size: Large Weight 231 lb Height 74 in Body Mass Index Calculated 29.66 kg/m2 Body Surface Area Calculated 2.31 m2 :35 Temperature 98.2 f Pulse 74 /min Comments: Pattern: Regular Respiration Rate 20 /min Comments: Pattern: Unlabored BP Systolic 198 mm[Hg] Comments: Patient Position: Sitting; Cuff Location: Left Arm; Cuff Size: Standard BP Diastolic 108 mm[Hg] Comments: Patient Position: Sitting; Cuff Location: Left Arm; Cuff Size: Standard Weight 234.25 lb Height 74 in Body Mass Index Calculated 30.08 kg/m2 Body Surface Area Calculated 2.32 m2 :04 Pulse 60 /min Comments: Pattern: Regular Respiration Rate 20 /min Comments: Pattern: Unlabored BP Systolic 152 mm[Hg] Comments: Patient Position: Sitting; Cuff Location: Left Arm; Cuff Size: Large BP Diastolic 80 mm[Hg] Comments: Patient Position: Sitting; Cuff Location: Left Arm; Cuff Size: Large Weight 234.25 lb Height 74 in Body Mass Index Calculated 30.08 kg/m2 Body Surface Area Calculated 2.32 m2 :18 Pulse 60 /min Comments: Pattern: Regular Respiration Rate 18 /min Comments: Pattern: Unlabored BP Systolic 122 mm[Hg] Comments: Patient Position: Sitting; Cuff Location: Left Arm; Cuff Size: Large BP Diastolic 80 mm[Hg] Comments: Patient Position: Sitting; Cuff Location: Left Arm; Cuff Size: Large Weight 230.0625 lb Height 74 in Body Mass Index Calculated 29.54 kg/m2 Body Surface Area Calculated 2.31 m2 :59 Temperature 97.9 f Comments: Method: Oral Pulse 64 /min Comments: Pattern: Regular Respiration Rate 18 /min Comments: Pattern: Unlabored BP Systolic 158 mm[Hg] Comments: Patient Position: Sitting; Cuff Location: Left Arm; Cuff Size: Large BP Diastolic 92 mm[Hg] Comments: Patient Position: Sitting; Cuff Location: Left Arm; Cuff Size: Large Weight 221.5 lb Height 74 in Body Mass Index Calculated 28.44 kg/m2 Body Surface Area Calculated 2.27 m2 :09 Temperature 96.6 f Comments: Method: Oral Pulse 72 /min Comments: Pattern: Regular Respiration Rate 20 /min Comments: Pattern: Unlabored BP Systolic 120 mm[Hg] Comments: Patient Position: Sitting; Cuff Location: Left Arm; Cuff Size: Large BP Diastolic 78 mm[Hg] Comments: Patient Position: Sitting; Cuff Location: Left Arm; Cuff Size: Large Weight 218.375 lb Height 74 in Body Mass Index Calculated 28.04 kg/m2 Body Surface Area Calculated 2.26 m2 :36 Pulse 64 /min Comments: Pattern: Regular Respiration Rate 20 /min Comments: Pattern: Unlabored BP Systolic 122 mm[Hg] Comments: Patient Position: Sitting; Cuff Location: Left Arm; Cuff Size: Large BP Diastolic 80 mm[Hg] Comments: Patient Position: Sitting; Cuff Location: Left Arm; Cuff Size: Large Weight 218.125 lb Height 74 in Body Mass Index Calculated 28.01 kg/m2 Body Surface Area Calculated 2.25 m2 :22 Pulse 76 /min Comments: Pattern: Regular Respiration Rate 18 /min Comments: Pattern: Unlabored BP Systolic 128 mm[Hg] Comments: Patient Position: Sitting; Cuff Location: Left Arm; Cuff Size: Large BP Diastolic 78 mm[Hg] Comments: Patient Position: Sitting; Cuff Location: Left Arm; Cuff Size: Large Weight 220.4375 lb Height 74 in Body Mass Index Calculated 28.3 kg/m2 Body Surface Area Calculated 2.27 m2 :48 Temperature 98.4 f Comments: Method: Oral Pulse 60 /min Comments: Pattern: Regular Respiration Rate 16 /min Comments: Pattern: Unlabored BP Systolic 130 mm[Hg] Comments: Patient Position: Supine; Cuff Location: Left Arm; Cuff Size: Standard BP Diastolic 80 mm[Hg] Comments: Patient Position: Supine; Cuff Location: Left Arm; Cuff Size: Standard Weight 231.0625 lb Height 74 in Body Mass Index Calculated 29.67 kg/m2 Body Surface Area Calculated 2.31 m2 :31 Temperature 97.8 f Comments: Method: Oral Pulse 60 /min Comments: Pattern: Regular Respiration Rate 18 /min Comments: Pattern: Unlabored BP Systolic 118 mm[Hg] Comments: Patient Position: Sitting; Cuff Location: Left Arm; Cuff Size: Large BP Diastolic 70 mm[Hg] Comments: Patient Position: Sitting; Cuff Location: Left Arm; Cuff Size: Large Weight 231 lb Height 72 in Body Mass Index Calculated 31.33 kg/m2 Body Surface Area Calculated 2.27 m2 :15 Temperature 97.2 f Comments: Method: Oral Pulse 60 /min Comments: Pattern: Regular Respiration Rate 20 /min Comments: Pattern: Unlabored BP Systolic 138 mm[Hg] Comments: Patient Position: Sitting; Cuff Location: Left Arm; Cuff Size: Large BP Diastolic 80 mm[Hg] Comments: Patient Position: Sitting; Cuff Location: Left Arm; Cuff Size: Large Weight 235.3125 lb Height 72 in Body Mass Index Calculated 31.91 kg/m2 Body Surface Area Calculated 2.28 m2 :29 Temperature 98 f Comments: Method: Oral Pulse 64 /min Comments: Pattern: Regular Respiration Rate 20 /min Comments: Pattern: Unlabored BP Systolic 152 mm[Hg] Comments: Patient Position: Sitting; Cuff Location: Left Arm; Cuff Size: Standard BP Diastolic 84 mm[Hg] Comments: Patient Position: Sitting; Cuff Location: Left Arm; Cuff Size: Standard Weight 230.5 lb Height 72 in Body Mass Index Calculated 31.26 kg/m2 Body Surface Area Calculated 2.26 m2 :04 Pulse 60 /min Comments: Pattern: Regular Respiration Rate 20 /min Comments: Pattern: Unlabored BP Systolic 152 mm[Hg] Comments: Patient Position: Sitting; Cuff Location: Left Arm; Cuff Size: Large BP Diastolic 98 mm[Hg] Comments: Patient Position: Sitting; Cuff Location: Left Arm; Cuff Size: Large Weight 230.125 lb Height 72 in Body Mass Index Calculated 31.21 kg/m2 Body Surface Area Calculated 2.26 m2 :05 Temperature 98.1 f Comments: Method: Oral Pulse 60 /min Comments: Pattern: Regular Respiration Rate 16 /min Comments: Pattern: Unlabored BP Systolic 118 mm[Hg] Comments: Patient Position: Sitting; Cuff Location: Left Arm; Cuff Size: Standard BP Diastolic 82 mm[Hg] Comments: Patient Position: Sitting; Cuff Location: Left Arm; Cuff Size: Standard Weight 231.3125 lb Height 72 in Body Mass Index Calculated 31.37 kg/m2 Body Surface Area Calculated 2.27 m2 :03 Pulse 60 /min Comments: Pattern: Regular Respiration Rate 18 /min Comments: Pattern: Unlabored BP Systolic 128 mm[Hg] Comments: Patient Position: Sitting; Cuff Location: Left Arm; Cuff Size: Large BP Diastolic 78 mm[Hg] Comments: Patient Position: Sitting; Cuff Location: Left Arm; Cuff Size: Large Weight 225.375 lb Height 72 in Body Mass Index Calculated 30.57 kg/m2 Body Surface Area Calculated 2.24 m2 :09 Temperature 96.7 f Comments: Method: Oral Pulse 64 /min Comments: Pattern: Regular Respiration Rate 20 /min Comments: Pattern: Unlabored BP Systolic 120 mm[Hg] Comments: Patient Position: Sitting; Cuff Location: Left Arm; Cuff Size: Large BP Diastolic 80 mm[Hg] Comments: Patient Position: Sitting; Cuff Location: Left Arm; Cuff Size: Large Weight 222.25 lb Height 72 in Body Mass Index Calculated 30.14 kg/m2 Body Surface Area Calculated 2.23 m2 :08 Pulse 80 /min Comments: Pattern: Regular Respiration Rate 20 /min Comments: Pattern: Unlabored BP Systolic 118 mm[Hg] Comments: Patient Position: Sitting; Cuff Location: Left Arm; Cuff Size: Large BP Diastolic 78 mm[Hg] Comments: Patient Position: Sitting; Cuff Location: Left Arm; Cuff Size: Large Weight 220 lb Height 72 in Body Mass Index Calculated 29.84 kg/m2 Body Surface Area Calculated 2.22 m2 :04 Pulse 60 /min Comments: Pattern: Regular Respiration Rate 20 /min Comments: Pattern: Unlabored BP Systolic 118 mm[Hg] Comments: Patient Position: Sitting; Cuff Location: Left Arm; Cuff Size: Standard BP Diastolic 74 mm[Hg] Comments: Patient Position: Sitting; Cuff Location: Left Arm; Cuff Size: Standard Weight 222.5 lb Height 72 in Body Mass Index Calculated 30.18 kg/m2 Body Surface Area Calculated 2.23 m2 :10 Pulse 76 /min Comments: Pattern: Regular Respiration Rate 20 /min Comments: Pattern: Unlabored BP Systolic 124 mm[Hg] Comments: Patient Position: Sitting; Cuff Location: Left Arm; Cuff Size: Large BP Diastolic 78 mm[Hg] Comments: Patient Position: Sitting; Cuff Location: Left Arm; Cuff Size: Large Weight 224.25 lb Height 72 in Body Mass Index Calculated 30.41 kg/m2 Body Surface Area Calculated 2.24 m2 :30 Pulse 80 /min Comments: Pattern: Regular Respiration Rate 20 /min Comments: Pattern: Unlabored BP Systolic 128 mm[Hg] Comments: Patient Position: Sitting; Cuff Location: Left Arm; Cuff Size: Large BP Diastolic 80 mm[Hg] Comments: Patient Position: Sitting; Cuff Location: Left Arm; Cuff Size: Large Weight 225.5 lb Height 72 in Body Mass Index Calculated 30.58 kg/m2 Body Surface Area Calculated 2.24 m2 :15 Pulse 60 /min Comments: Pattern: Regular Respiration Rate 18 /min Comments: Pattern: Unlabored BP Systolic 128 mm[Hg] Comments: Patient Position: Sitting; Cuff Location: Left Arm; Cuff Size: Large BP Diastolic 82 mm[Hg] Comments: Patient Position: Sitting; Cuff Location: Left Arm; Cuff Size: Large Weight 227.1875 lb Height 72 in Body Mass Index Calculated 30.81 kg/m2 Body Surface Area Calculated 2.25 m2 Head Circumference 0.00 cm :01 Pulse 64 /min Comments: Pattern: Regular Respiration Rate 20 /min Comments: Pattern: Unlabored BP Systolic 124 mm[Hg] Comments: Patient Position: Sitting; Cuff Location: Left Arm; Cuff Size: Large BP Diastolic 82 mm[Hg] Comments: Patient Position: Sitting; Cuff Location: Left Arm; Cuff Size: Large Weight 233.5 lb Height 72 in Body Mass Index Calculated 31.67 kg/m2 Body Surface Area Calculated 2.28 m2 Head Circumference 0.00 cm :12 Pulse 64 /min Comments: Pattern: Regular Respiration Rate 18 /min Comments: Pattern: Unlabored BP Systolic 118 mm[Hg] Comments: Patient Position: Sitting; Cuff Location: Left Arm; Cuff Size: Large BP Diastolic 68 mm[Hg] Comments: Patient Position: Sitting; Cuff Location: Left Arm; Cuff Size: Large Weight 233.4375 lb Height 72 in Body Mass Index Calculated 31.66 kg/m2 Body Surface Area Calculated 2.28 m2 Head Circumference 0.00 cm :50 Temperature 97 f Comments: Method: Oral Pulse 61 /min Comments: Pattern: Regular Respiration Rate 18 /min Comments: Pattern: Unlabored BP Systolic 140 mm[Hg] Comments: Patient Position: Sitting; Cuff Location: Right Arm; Cuff Size: Large BP Diastolic 80 mm[Hg] Comments: Patient Position: Sitting; Cuff Location: Right Arm; Cuff Size: Large Weight 241.3125 lb Height 0 in Head Circumference 0.00 cm :01 Temperature 95.4 f Comments: Method: Oral Pulse 60 /min Comments: Pattern: Regular Respiration Rate 20 /min Comments: Pattern: Unlabored BP Systolic 118 mm[Hg] Comments: Patient Position: Sitting; Cuff Location: Left Arm; Cuff Size: Large BP Diastolic 62 mm[Hg] Comments: Patient Position: Sitting; Cuff Location: Left Arm; Cuff Size: Large Weight 236.1875 lb Height 72 in Body Mass Index Calculated 32.03 kg/m2 Body Surface Area Calculated 2.29 m2 Head Circumference 0.00 cm :04 Pulse 60 /min Comments: Pattern: Regular Respiration Rate 20 /min Comments: Pattern: Unlabored BP Systolic 128 mm[Hg] Comments: Patient Position: Sitting; Cuff Location: Left Arm; Cuff Size: Large BP Diastolic 68 mm[Hg] Comments: Patient Position: Sitting; Cuff Location: Left Arm; Cuff Size: Large Weight 242.5 lb Height 72 in Body Mass Index Calculated 32.89 kg/m2 Body Surface Area Calculated 2.31 m2 Head Circumference 0.00 cm :30 Pulse 64 /min Comments: Pattern: Regular Respiration Rate 20 /min Comments: Pattern: Unlabored BP Systolic 128 mm[Hg] Comments: Patient Position: Sitting; Cuff Location: Left Arm; Cuff Size: Large BP Diastolic 80 mm[Hg] Comments: Patient Position: Sitting; Cuff Location: Left Arm; Cuff Size: Large Weight 238.5625 lb Height 72 in Body Mass Index Calculated 32.35 kg/m2 Body Surface Area Calculated 2.3 m2 Head Circumference 0.00 cm :20 Pulse 66 /min Comments: Pattern: Regular Respiration Rate 16 /min Comments: Pattern: Unlabored BP Systolic 136 mm[Hg] Comments: Patient Position: Sitting; Cuff Location: Left Arm; Cuff Size: Standard BP Diastolic 78 mm[Hg] Comments: Patient Position: Sitting; Cuff Location: Left Arm; Cuff Size: Standard Weight 232.4375 lb Height 72 in Body Mass Index Calculated 31.52 kg/m2 Body Surface Area Calculated 2.27 m2 Head Circumference 0.00 cm :32 Pulse 80 /min Comments: Pattern: Regular Respiration Rate 20 /min Comments: Pattern: Unlabored BP Systolic 136 mm[Hg] Comments: Patient Position: Sitting; Cuff Location: Left Arm; Cuff Size: Standard BP Diastolic 80 mm[Hg] Comments: Patient Position: Sitting; Cuff Location: Left Arm; Cuff Size: Standard Weight 232.4375 lb Height 72 in Body Mass Index Calculated 31.52 kg/m2 Body Surface Area Calculated 2.27 m2 Head Circumference 0.00 cm :00 Pulse 72 /min Comments: Pattern: Regular Respiration Rate 20 /min Comments: Pattern: Unlabored BP Systolic 118 mm[Hg] Comments: Patient Position: Sitting; Cuff Location: Left Arm; Cuff Size: Large BP Diastolic 70 mm[Hg] Comments: Patient Position: Sitting; Cuff Location: Left Arm; Cuff Size: Large Weight 232.4375 lb Height 72 in Body Mass Index Calculated 31.52 kg/m2 Body Surface Area Calculated 2.27 m2 Head Circumference 0.00 cm :13 Pulse 64 /min Comments: Pattern: Regular Respiration Rate 20 /min Comments: Pattern: Unlabored BP Systolic 122 mm[Hg] Comments: Patient Position: Sitting; Cuff Location: Left Arm; Cuff Size: Large BP Diastolic 78 mm[Hg] Comments: Patient Position: Sitting; Cuff Location: Left Arm; Cuff Size: Large Weight 230.125 lb Height 72 in Body Mass Index Calculated 31.21 kg/m2 Body Surface Area Calculated 2.26 m2 Head Circumference 0.00 cm :20 Pulse 60 /min Comments: Pattern: Regular Respiration Rate 18 /min Comments: Pattern: Unlabored BP Systolic 148 mm[Hg] Comments: Patient Position: Sitting; Cuff Location: Right Arm; Cuff Size: Large BP Diastolic 80 mm[Hg] Comments: Patient Position: Sitting; Cuff Location: Right Arm; Cuff Size: Large Weight 230.4375 lb Height 72 in Body Mass Index Calculated 31.25 kg/m2 Body Surface Area Calculated 2.26 m2 Head Circumference 0.00 cm :14 Pulse 72 /min Comments: Pattern: Regular Respiration Rate 20 /min Comments: Pattern: Unlabored BP Systolic 128 mm[Hg] Comments: Patient Position: Sitting; Cuff Location: Left Arm; Cuff Size: Large BP Diastolic 78 mm[Hg] Comments: Patient Position: Sitting; Cuff Location: Left Arm; Cuff Size: Large Weight 230.4375 lb Height 72 in Body Mass Index Calculated 31.25 kg/m2 Body Surface Area Calculated 2.26 m2 Head Circumference 0.00 cm :29 Pulse 80 /min Comments: Pattern: Regular Respiration Rate 16 /min Comments: Pattern: Unlabored BP Systolic 124 mm[Hg] Comments: Patient Position: Sitting; Cuff Location: Right Arm; Cuff Size: Standard BP Diastolic 82 mm[Hg] Comments: Patient Position: Sitting; Cuff Location: Right Arm; Cuff Size: Standard Weight 234.125 lb Height 72 in Body Mass Index Calculated 31.75 kg/m2 Body Surface Area Calculated 2.28 m2 Head Circumference 0.00 cm :14 Pulse 64 /min Comments: Pattern: Regular Respiration Rate 16 /min Comments: Pattern: Unlabored BP Systolic 124 mm[Hg] Comments: Patient Position: Sitting; Cuff Location: Left Arm; Cuff Size: Standard BP Diastolic 82 mm[Hg] Comments: Patient Position: Sitting; Cuff Location: Left Arm; Cuff Size: Standard Weight 234.125 lb Height 72 in Body Mass Index Calculated 31.75 kg/m2 Body Surface Area Calculated 2.28 m2 Head Circumference 0.00 cm :03 Pulse 64 /min Comments: Pattern: Regular Respiration Rate 20 /min Comments: Pattern: Unlabored BP Systolic 124 mm[Hg] Comments: Patient Position: Sitting; Cuff Location: Left Arm; Cuff Size: Standard BP Diastolic 78 mm[Hg] Comments: Patient Position: Sitting; Cuff Location: Left Arm; Cuff Size: Standard Weight 223 lb Height 0 in Head Circumference 0.00 cm :39 Temperature 97.37 f Comments: Method: Undefined Pulse 74 /min Comments: Pattern: Regular Respiration Rate 18 /min Comments: Pattern: Undefined BP Systolic 148 mm[Hg] Comments: Patient Position: Sitting; Cuff Location: Left Arm; Cuff Size: Standard BP Diastolic 90 mm[Hg] Comments: Patient Position: Sitting; Cuff Location: Left Arm; Cuff Size: Standard Weight 0 lb Height 0 in Head Circumference 0.00 cm :00 Temperature 97.5 f Comments: Method: Oral Pulse 76 /min Comments: Pattern: Regular Respiration Rate 16 /min Comments: Pattern: Unlabored BP Systolic 138 mm[Hg] Comments: Patient Position: Sitting; Cuff Location: Left Arm; Cuff Size: Large BP Diastolic 88 mm[Hg] Comments: Patient Position: Sitting; Cuff Location: Left Arm; Cuff Size: Large Weight 0 lb Height 0 in Head Circumference 0.00 cm :44 Temperature 97.9 f Comments: Method: Oral Pulse 68 /min Comments: Pattern: Regular Respiration Rate 18 /min Comments: Pattern: Unlabored BP Systolic 142 mm[Hg] Comments: Patient Position: Sitting; Cuff Location: Left Arm; Cuff Size: Standard BP Diastolic 94 mm[Hg] Comments: Patient Position: Sitting; Cuff Location: Left Arm; Cuff Size: Standard Weight 223 lb Height 0 in Head Circumference 0.00 cm :58 Pulse 60 /min Comments: Pattern: Regular Respiration Rate 16 /min Comments: Pattern: Unlabored BP Systolic 124 mm[Hg] Comments: Patient Position: Sitting; Cuff Location: Left Arm; Cuff Size: Standard BP Diastolic 80 mm[Hg] Comments: Patient Position: Sitting; Cuff Location: Left Arm; Cuff Size: Standard Weight 238.375 lb Height 0 in Head Circumference 0.00 cm :56 Temperature 97.5 f Comments: Method: Undefined Pulse 72 /min Comments: Pattern: Regular Respiration Rate 16 /min Comments: Pattern: Undefined BP Systolic 142 mm[Hg] Comments: Patient Position: Sitting; Cuff Location: Right Arm; Cuff Size: Standard BP Diastolic 80 mm[Hg] Comments: Patient Position: Sitting; Cuff Location: Right Arm; Cuff Size: Standard Weight 238.375 lb Height 0 in Head Circumference 0.00 cm Results Date Description Value Details [id number] HELICOBACTER PYLORI ANTIBODY Comments: PATIENT NOT FASTINGPERFORMED BY: [facility] [id number] [facility] [id number] PROFILE IgG, IgM, IgA (15712) H. pylori, IgG Abs 0.14 {Index_Value} (Normal) Range: 0.00-0.79 Comments: Negative <0.80 Equivocal 0.80 - 0.89 Positive >0.89 5-Pgg-500591:40 Amylase (96401) Comments: PATIENT NOT FASTINGPERFORMED BY: [facility] [id number] [facility] [id number] Amylase 93 U/L (Normal) Range: 31-124 1-Jtx-066404:40 Lipase (62039) Comments: PATIENT NOT FASTINGPERFORMED BY: [facility] [id number] [facility] [id number] Lipase 41 U/L (Normal) Range: 13-78 1-Qog-252308:40 Sed Rate Erythrocyte (99234) Comments: PATIENT NOT FASTINGPERFORMED BY: [facility] HospitalBgtiou7340 [facility] [id number] Sedimentation Rate-Westergren 8 mm/h (Normal) Range: 0-30 7-Blx-715682:40 Metabolic Panel, Comprehensive Comments: PATIENT NOT FASTINGPERFORMED BY: [facility] HospitalMqhcpv5799 [facility] [id number] (04658) ALT (SGPT) 17 [iU]/L (Normal) Range: 0-44 AST (SGOT) 12 [iU]/L (Normal) Range: 0-40 Alkaline Phosphatase 99 [iU]/L (Normal) Range: 39-117 Bilirubin, Total 0.4 mg/dL (Normal) Range: 0.0-1.2 A/G Ratio 2.0 (Normal) Range: 1.2-2.2 Globulin, Total 2.1 g/dL (Normal) Range: 1.5-4.5 Albumin 4.2 g/dL (Normal) Range: 3.5-4.8 Protein, Total 6.3 g/dL (Normal) Range: 6.0-8.5 Calcium 9.5 mg/dL (Normal) Range: 8.6-10.2 Carbon Dioxide, Total 24 mmol/L (Normal) Range: 20-29 Chloride 100 mmol/L (Normal) Range: 96-106 Potassium 4.3 mmol/L (Normal) Range: 3.5-5.2 Sodium 137 mmol/L (Normal) Range: 134-144 BUN/Creatinine Ratio 11 (Normal) Range: 10-24 eGFR If Africn Am 71 mL/min/1.73 (Normal) eGFR If NonAfricn Am 62 mL/min/1.73 (Normal) Creatinine 1.16 mg/dL (Normal) Range: 0.76-1.27 BUN 13 mg/dL (Normal) Range: 8-27 Glucose 152 mg/dL (Abnormal) Range: 65-99 4-Vhj-107257:40 CBC with auto diff (44331) Comments: PATIENT NOT FASTINGPERFORMED BY: [facility] HospitalIsealn4058 [facility] [id number] Immature Grans (Abs) 0.0 {x10E3/uL} (Normal) Range: 0.0-0.1 Immature Granulocytes 0 % (Normal) Baso (Absolute) 0.0 {x10E3/uL} (Normal) Range: 0.0-0.2 Eos (Absolute) 0.1 {x10E3/uL} (Normal) Range: 0.0-0.4 Monocytes(Absolute) 0.3 {x10E3/uL} (Normal) Range: 0.1-0.9 Lymphs (Absolute) 1.6 {x10E3/uL} (Normal) Range: 0.7-3.1 Neutrophils (Absolute) 4.4 {x10E3/uL} (Normal) Range: 1.4-7.0 Basos 0 % (Normal) Eos 1 % (Normal) Monocytes 5 % (Normal) Lymphs 25 % (Normal) Neutrophils 69 % (Normal) Platelets 228 {x10E3/uL} (Normal) Range: 150-379 RDW 14.0 % (Normal) Range: 12.3-15.4 MCHC 32.1 g/dL (Normal) Range: 31.5-35.7 MCH 27.1 pg (Normal) Range: 26.6-33.0 MCV 85 fL (Normal) Range: 79-97 Hematocrit 42.1 % (Normal) Range: 37.5-51.0 Hemoglobin 13.5 g/dL (Normal) Range: 13.0-17.7 RBC 4.98 {x10E6/uL} (Normal) Range: 4.14-5.80 WBC 6.4 {x10E3/uL} (Normal) Range: 3.4-10.8 11-Idm-188326:59 HgA1C , Office (47153) HgA1C , Office 7.2 % (Abnormal) Range: 4.6 - 7.1 28-Qgi-861056:59 Blood Glucose , Office (63014) Blood Glucose , Office 128 (Normal) 9-Rbz-158232:20 Microscopic Examination Comments: PATIENT WAS FASTINGPERFORMED BY: BN [facility] [address] [id number] BY: CB [facility] Hblmpq9112 [facility] [id number] Bacteria None seen (Normal) Mucus Threads Present (Normal) Epithelial Cells (non renal) None seen {/hpf} (Normal) Range: 0 - 10 RBC None seen {/hpf} (Normal) Range: 0 - 2 WBC 0-5 {/hpf} (Normal) Range: 0 - 5 9-Onw-427030:20 CALCIFIDIOL (59642) VIT D Comments: PATIENT WAS FASTINGPERFORMED BY: [place] [id number] BY: [place] Fwrigh5362 [facility] [id number] 25 Vitamin D, 25-Hydroxy 55.7 ng/mL (Normal) Range: 30.0-100.0 Comments: Vitamin D deficiency has been defined by the [place] ofN[facility]cine and an Endocrine Society practice guideline as alevel of serum 25-OH vitamin D less than 20 ng/mL (1,2).The Endocrine Society went on to further define vitamin Dinsufficiency as a level between 21 and 29 ng/mL (2).1. IOM ([place] of Medicine). 2010. Dietary reference intakes for calcium and D. [place]: The National Academies Press.2. Charles MF, Raissa OCONNELL, Nirmala ALBERT, et al. Evaluation, treatment, and prevention of vitamin D deficiency: an Endocrine Society clinical practice guideline. JCEM. 2010; 96(7):1911-30. 2-Ceu-972131:20 TSH (87543) Comments: PATIENT WAS FASTINGPERFORMED BY: [address] [id number] BY: EferioRehabilitation Hospital of Southern New MexicoHemohq7159 [facility] [id number] TSH 2.360 {uIU/mL} (Normal) Range: 0.450-4.500 7-Hxv-010092:20 URINALYSIS, W/ MICRO Comments: PATIENT WAS FASTINGPERFORMED BY: [place] [id number] BY: [facility]tonCh[facility] HospitalVvfukx9708 [facility] [id number] (65450) Microscopic Examination See below: (Normal) Comments: Microscopic was indicated and was performed. Microscopic Examination MICRON (Normal) Comments: Microscopic follows if indicated. Nitrite, Urine Negative (Normal) Urobilinogen,Semi-Qn 0.2 mg/dL (Normal) Range: 0.2-1.0 Bilirubin Negative (Normal) Occult Blood Negative (Normal) Ketones Negative (Normal) Glucose Negative (Normal) Protein Negative (Normal) WBC Esterase Negative (Normal) Appearance Clear (Normal) Urine-Color Yellow (Normal) pH 5.0 (Normal) Range: 5.0-7.5 Specific Garner 1.019 (Normal) Range: 1.005-1.030 5-Ete-268044:20 MICROALBUMIN: CREATININE Comments: PATIENT WAS FASTINGPERFORMED BY: Liquid[address] [id number] BY: EferioRehabilitation Hospital of Southern New MexicoGsjjvg9179 [facility] [id number] RATIO (35227) AND (08265) Alb/Creat Ratio <2.4 {mg/g_creat} (Normal) Range: 0.0-30.0 Comments: Normal: 0.0 - 30.0 Albuminuria: 31.0 - 300.0 Clinical albuminuria: >300.0 Albumin, Urine <3.0 ug/mL (Normal) Creatinine, Urine 123.5 mg/dL (Normal) 2-Gio-380377:20 METABOLIC PANEL, Comments: PATIENT WAS FASTINGPERFORMED BY: [address] [id number] BY: EferioChilton Memorial HospitalGdycxu8557 [facility] [id number] COMPREHENSIVE (36869) ALT (SGPT) 22 [iU]/L (Normal) Range: 0-44 AST (SGOT) 15 [iU]/L (Normal) Range: 0-40 Alkaline Phosphatase 100 [iU]/L (Normal) Range: 39-117 Bilirubin, Total 0.4 mg/dL (Normal) Range: 0.0-1.2 A/G Ratio 1.8 (Normal) Range: 1.2-2.2 Globulin, Total 2.3 g/dL (Normal) Range: 1.5-4.5 Albumin 4.2 g/dL (Normal) Range: 3.5-4.8 Protein, Total 6.5 g/dL (Normal) Range: 6.0-8.5 Calcium 9.2 mg/dL (Normal) Range: 8.6-10.2 Carbon Dioxide, Total 23 mmol/L (Normal) Range: 20-29 Chloride 102 mmol/L (Normal) Range: 96-106 Potassium 4.5 mmol/L (Normal) Range: 3.5-5.2 Sodium 140 mmol/L (Normal) Range: 134-144 BUN/Creatinine Ratio 12 (Normal) Range: 10-24 eGFR If Africn Am 75 mL/min/1.73 (Normal) eGFR If NonAfricn Am 65 mL/min/1.73 (Normal) Creatinine 1.11 mg/dL (Normal) Range: 0.76-1.27 BUN 13 mg/dL (Normal) Range: 8-27 Glucose 156 mg/dL (Abnormal) Range: 65-99 9-Phw-661049:20 CBC W/AUTO DIFF WBC Comments: PATIENT WAS FASTINGPERFORMED BY: BN [facility] Fihtdohepw2699 [facility] [id number] BY: CB [facility] Fjmnzl0830 [facility] [id number] (75312) Immature Grans (Abs) 0.0 {x10E3/uL} (Normal) Range: 0.0-0.1 Immature Granulocytes 0 % (Normal) Baso (Absolute) 0.0 {x10E3/uL} (Normal) Range: 0.0-0.2 Eos (Absolute) 0.1 {x10E3/uL} (Normal) Range: 0.0-0.4 Monocytes(Absolute) 0.4 {x10E3/uL} (Normal) Range: 0.1-0.9 Lymphs (Absolute) 1.7 {x10E3/uL} (Normal) Range: 0.7-3.1 Neutrophils (Absolute) 3.6 {x10E3/uL} (Normal) Range: 1.4-7.0 Basos 0 % (Normal) Eos 2 % (Normal) Monocytes 7 % (Normal) Lymphs 29 % (Normal) Neutrophils 62 % (Normal) Platelets 212 {x10E3/uL} (Normal) Range: 150-379 RDW 14.1 % (Normal) Range: 12.3-15.4 MCHC 33.2 g/dL (Normal) Range: 31.5-35.7 MCH 27.4 pg (Normal) Range: 26.6-33.0 MCV 83 fL (Normal) Range: 79-97 Hematocrit 38.9 % (Normal) Range: 37.5-51.0 Hemoglobin 12.9 g/dL (Abnormal) Range: 13.0-17.7 RBC 4.70 {x10E6/uL} (Normal) Range: 4.14-5.80 WBC 5.8 {x10E3/uL} (Normal) Range: 3.4-10.8 2-Ooo-277574:20 LIPOPROTEIN, BLD, BY NMR Comments: PATIENT WAS FASTINGPERFORMED BY: BN [facility] Uhnakqbrjf4984 [facility] [id number] BY: CB [facility] Kqdcxw7406 [facility] [id number] ([id number]) LP-IR Score 66 (Abnormal) Comments: INSULIN RESISTANCE MARKER <--Insulin Sensitive Insulin Resistant--> Percentile in Reference PopulationInsulin Resistance ScoreLP-IR Score Low 25th 50th 75th High <27 27 45 63 >63LP-IR Score is inaccurate if patient is non-fasting. .The LP-IR score is a laboratory developed i [facility] that has beenassociated with insulin resistance and diabetes risk and should beused as one component of a physician's clinical assessment. TheLP-IR score listed above has not been cleared by the [place] Food andDrug Administration. LDL Size 20.4 nm (Normal) Comments: INTERPRETATIVE INFORMATION PARTICLE CONCENTRATION AND SIZE <--Lower CVD Risk Highe r CVD Risk--> LDL AND HDL PARTICLES Percentile in Reference Population HDL-P (total) High 75th 50th 25th Low >34.9 34.9 30.5 26.7 <26.7 . Small LDL-P Low 25th 50th 75th High <117 117 527 839 >839 . LDL Size <-Large (Pattern A)-> <-Small (Pattern B)-> 23.0 20.6 20.5 19.0 Small LDL-P and LDL Size are associated with CVD risk, but not afterLDL-P is taken into account. .These assays were developed and their performance characteristicsdetermined by [employer]. These assays have not been cleared by [place] Food and Drug Administration. The clinical utility of theselaboratory values have not been fully established. Small LDL-P 640 nmol/L (Abnormal) HDL-P (Total) 35.6 umol/L (Normal) Cholesterol, Total 168 mg/dL (Normal) Range: 100-199 Triglycerides 122 mg/dL (Normal) Range: 0-149 HDL-C 50 mg/dL (Normal) LDL-C 94 mg/dL (Normal) Range: 0-99 Comments: . Optimal < 100 Above optimal 100 - 129 Borderline 1 30 - 159 High 160 - 189 Very high > 189 .LDL-C is inaccurate if patient is non-fasting. LDL-P 1194 nmol/L (Abnormal) Comments: Low < 1000 Moderate 1000 - 1299 Borderline-High 1300 - 1599 High 1600 - 2000 Very High > 2000 23-Bqw-946566:40 HgA1C , Office (33119) HgA1C , Office 6.6 % (Normal) Range: 4.6 - 7.1 10-Ltg-456228:40 Blood Glucose , Office (87351) Blood Glucose , Office 75 (Normal) 40-Qti-580266:20 COLON BIOPSY (CHOOSE See Note (Normal) Comments: [facility] [address] [place], [address] SITE) Comments: Patient: YOHANNES CADET : 1945 (72/M) Acct Num: [id number] Phys: Mg Norman Unit Num: [id number] Loc: LABSPEC Specimen: [id number] Received: 09/20/17 - 6477 Spec Type: C OLON BX TISSUES TISSUES: Rectum, NOS GROSS DESCRIPTION Received in fixative is one container labeled with the patient's name and designated rectal polyp. The specimen predominantly consists of fecal material mixed with possible soares soft tissue, measuring in aggregate 2.5 x 0.6 x0.1 cm. The specimen is totally submitted in one cassette. SJ:scott 09/23/17 TC: cannot code CPT: 90366 HEADER OPERATION: Colonoscopy with polypectomy PRE-OP DIAGNOSIS: Rectal bleeding TISSUE SUBMITTED: Rectal polyp MICROSCOPIC DESCRIPTION Slides are reviewed. MICROSCOPIC DIAGNOSIS Rectal polyp, polypectomy: Fragments of fecal material. Colonic mucosal tissue is not identified. SJ:scott 09/24/18 Signed Magdy Yaniv 09/24/17 <signature on file> 73-Jto-884618:08 Microscopic Examination Comments: PATIENT WAS FASTINGPERFORMED BY: [employer] Groupin [place] [id number] Bacteria None seen (Normal) Mucus Threads Present (Normal) Epithelial Cells (non renal) None seen {/hpf} (Normal) Range: 0 - 10 RBC None seen {/hpf} (Normal) Range: 0 - 2 WBC 0-5 {/hpf} (Normal) Range: 0 - 5 53-Ind-262234:08 T4, FREE (THYROXINE) (24870) Comments: PATIENT WAS FASTINGPERFORMED BY: [employer]in [place] [id number] T4,Free(Direct) 1.27 ng/dL (Normal) Range: 0.82-1.77 84-Kdv-946673:08 T3, FREE (TRIDOTHYRONINE) (11551) Comments: PATIENT WAS FASTINGPERFORMED BY: [employer] [place] [id number] Triiodothyronine,Free,Serum 2.7 pg/mL (Normal) Range: 2.0-4.4 83-Abn-484968:08 CALCIFIDIOL (70625) VIT D 25 Comments: PATIENT WAS FASTINGPERFORMED BY: [facility]63[employer]ox [place] [id number] Vitamin D, 25-Hydroxy 57.4 ng/mL (Normal) Range: 30.0-100.0 Comments: Vitamin D deficiency has been defined by the [place] ofMedicine and an Endocrine Society practice guideline as alevel of serum 25-OH vitamin D less than 20 ng/mL (1,2).The Endocrine Society went on to further define vitamin Dinsufficiency as a level between 21 and 29 ng/mL (2).1. IOM ([place] of Medicine). 2010. Dietary reference intakes for calcium and D. [place]: The National Academies Press.2. Charles MF, Raissa OCONNELL, Nirmala ALBERT, et al. Evaluation, treatment, and prevention of vitamin D deficiency: an Endocrine Society clinical practice guideline. JCEM. 2010; 96(7):1911-30. 80-Esy-322945:08 TSH (59028) Comments: PATIENT WAS FASTINGPERFORMED BY: [facility] GroupC[facility] [id number] TSH 3.370 {uIU/mL} (Normal) Range: 0.450-4.500 69-Eky-474950:08 URINALYSIS, W/ MICRO (54002) Comments: PATIENT WAS FASTINGPERFORMED BY: [employer]70 [facility] [id number] Microscopic Examination See below: (Normal) Comments: Microscopic was indicated and was performed. Microscopic Examination MICRON (Normal) Comments: Microscopic follows if indicated. Nitrite, Urine Negative (Normal) Urobilinogen,Semi-Qn 0.2 mg/dL (Normal) Range: 0.2-1.0 Bilirubin Negative (Normal) Occult Blood Negative (Normal) Ketones Negative (Normal) Glucose Negative (Normal) Protein Negative (Normal) WBC Esterase Negative (Normal) Appearance Clear (Normal) Urine-Color Yellow (Normal) pH 5.0 (Normal) Range: 5.0-7.5 Specific Garner 1.026 (Normal) Range: 1.005-1.030 59-Lva-765239:08 MICROALBUMIN: CREATININE RATIO Comments: PATIENT WAS FASTINGPERFORMED BY: u[employer]70 [facility] [id number] (41061) AND (00395) Alb/Creat Ratio 1.3 {mg/g_creat} (Normal) Range: 0.0-30.0 Albumin, Urine 3.1 ug/mL (Normal) Creatinine, Urine 237.2 mg/dL (Normal) 83-Vzs-893853:08 METABOLIC PANEL, COMPREHENSIVE Comments: PATIENT WAS FASTINGPERFORMED BY: [place] Pykljf1487 [facility] [id number] (09102) ALT (SGPT) 17 [iU]/L (Normal) Range: 0-44 AST (SGOT) 14 [iU]/L (Normal) Range: 0-40 Alkaline Phosphatase 95 [iU]/L (Normal) Range: 39-117 Bilirubin, Total 0.4 mg/dL (Normal) Range: 0.0-1.2 A/G Ratio 1.8 (Normal) Range: 1.2-2.2 Globulin, Total 2.2 g/dL (Normal) Range: 1.5-4.5 Albumin 3.9 g/dL (Normal) Range: 3.5-4.8 Protein, Total 6.1 g/dL (Normal) Range: 6.0-8.5 Calcium 9.1 mg/dL (Normal) Range: 8.6-10.2 Carbon Dioxide, Total 23 mmol/L (Normal) Range: 20-29 Comments: Please note reference interval change Chloride 104 mmol/L (Normal) Range: 96-106 Potassium 4.8 mmol/L (Normal) Range: 3.5-5.2 Sodium 141 mmol/L (Normal) Range: 134-144 BUN/Creatinine Ratio 12 (Normal) Range: 10-24 eGFR If Africn Am 70 mL/min/1.73 (Normal) eGFR If NonAfricn Am 60 mL/min/1.73 (Normal) Creatinine 1.19 mg/dL (Normal) Range: 0.76-1.27 BUN 14 mg/dL (Normal) Range: 8-27 Glucose 142 mg/dL (Abnormal) Range: 65-99 38-Kpd-765433:08 CBC W/AUTO DIFF WBC (87748) Comments: PATIENT WAS FASTINGPERFORMED BY: [facility]tonChilton Memorial HospitalHrmoja9250 [facility] [id number] Immature Grans (Abs) 0.0 {x10E3/uL} (Normal) Range: 0.0-0.1 Immature Granulocytes 0 % (Normal) Baso (Absolute) 0.0 {x10E3/uL} (Normal) Range: 0.0-0.2 Eos (Absolute) 0.1 {x10E3/uL} (Normal) Range: 0.0-0.4 Monocytes(Absolute) 0.4 {x10E3/uL} (Normal) Range: 0.1-0.9 Lymphs (Absolute) 1.6 {x10E3/uL} (Normal) Range: 0.7-3.1 Neutrophils (Absolute) 3.3 {x10E3/uL} (Normal) Range: 1.4-7.0 Basos 0 % (Normal) Eos 2 % (Normal) Monocytes 7 % (Normal) Lymphs 30 % (Normal) Neutrophils 61 % (Normal) Platelets 218 {x10E3/uL} (Normal) Range: 150-379 RDW 14.2 % (Normal) Range: 12.3-15.4 MCHC 32.5 g/dL (Normal) Range: 31.5-35.7 MCH 27.9 pg (Normal) Range: 26.6-33.0 MCV 86 fL (Normal) Range: 79-97 Hematocrit 38.8 % (Normal) Range: 37.5-51.0 Hemoglobin 12.6 g/dL (Abnormal) Range: 13.0-17.7 RBC 4.52 {x10E6/uL} (Normal) Range: 4.14-5.80 WBC 5.5 {x10E3/uL} (Normal) Range: 3.4-10.8 46-Dph-081342:08 LIPID PANEL (96449) Comments: PATIENT WAS FASTINGPERFORMED BY: [facility]6370 [facility] [id number] LDL/HDL Ratio 1.2 {ratio} (Normal) Range: 0.0-3.6 Comments: LDL/HDL Ratio Men Women 1/2 Avg.Risk 1.0 1.5 Av g.Risk 3.6 3.2 2X Avg.Risk 6.2 5.0 3X Avg.Risk 8.0 6.1 LDL Cholesterol Calc 51 mg/dL (Normal) Range: 0-99 VLDL Cholesterol Ezequiel 18 mg/dL (Normal) Range: 5-40 HDL Cholesterol 43 mg/dL (Normal) Triglycerides 90 mg/dL (Normal) Range: 0-149 Cholesterol, Total 112 mg/dL (Normal) Range: 100-199 6-Voq-981166:08 HgA1C , Office (85308) HgA1C , Office 6.9 % (Normal) Range: 4.6 - 7.1 4-Bqv-722678:08 Blood Glucose , Office (98911) Blood Glucose , Office 123 (Normal) 6-Sdt-213164:23 Blood Glucose , Office (65729) Blood Glucose , Office 69 (Normal) :23 HgA1C , Office (11910) HgA1C , Office 7.1 % (Normal) Range: 4.6 - 7.1 :23 Blood Glucose , Office (82053) Blood Glucose , Office 84 (Normal) 32-Pzx-919698:06 Microscopic Examination Comments: PATIENT WAS FASTINGPERFORMED BY: [facility]Rehabilitation Hospital of Southern New MexicoHqobop4188 [facility] [id number] Bacteria Few (Normal) Mucus Threads Present (Normal) Epithelial Cells (non renal) None seen {/hpf} (Normal) Range: 0 - 10 RBC 0-2 {/hpf} (Normal) Range: 0 - 2 WBC 0-5 {/hpf} (Normal) Range: 0 - 5 8-Wfk-339192:25 Methymalonic Acid, Serum Comments: PATIENT NOT FASTINGPERFORMED BY: [facility]tonRehabilitation Hospital of Southern New MexicoPyyltu3105 [facility] [id number] BY: [employer] [id number] (43272) Methylmalonic Acid, Serum 586 nmol/L (Abnormal) Range: 0-378 7-Fdt-426052:25 METABOLIC PANEL, Comments: PATIENT NOT FASTINGPERFORMED BY: [facility]tonCh[facility] HospitalQvplfo7296 [facility] [id number] BY: [employer] [id number] Inf ormation: [id number], [id number] COMPREHENSIVE (46258) ALT (SGPT) 11 [iU]/L (Normal) Range: 0-44 AST (SGOT) 11 [iU]/L (Normal) Range: 0-40 Alkaline Phosphatase, S 99 [iU]/L (Normal) Range: 39-117 Bilirubin, Total 0.3 mg/dL (Normal) Range: 0.0-1.2 A/G Ratio 2.3 (Abnormal) Range: 1.2-2.2 Globulin, Total 1.9 g/dL (Normal) Range: 1.5-4.5 Albumin, Serum 4.3 g/dL (Normal) Range: 3.5-4.8 Protein, Total, Serum 6.2 g/dL (Normal) Range: 6.0-8.5 Calcium, Serum 9.5 mg/dL (Normal) Range: 8.6-10.2 Carbon Dioxide, Total 26 mmol/L (Normal) Range: 18-29 Chloride, Serum 101 mmol/L (Normal) Range: 96-106 Potassium, Serum 4.8 mmol/L (Normal) Range: 3.5-5.2 Sodium, Serum 141 mmol/L (Normal) Range: 134-144 BUN/Creatinine Ratio 12 (Normal) Range: 10-24 eGFR If Africn Am 68 mL/min/1.73 (Normal) eGFR If NonAfricn Am 59 mL/min/1.73 (Abnormal) Creatinine, Serum 1.21 mg/dL (Normal) Range: 0.76-1.27 BUN 14 mg/dL (Normal) Range: 8-27 Glucose, Serum 153 mg/dL (Abnormal) Range: 65-99 4-Ffo-875577:25 CBC (AUTO) (24198) Comments: PATIENT NOT FASTINGPERFORMED BY: CB [facility] Bdsrbl1449 [facility] [id number] BY: BN [facility] [address] [id number] Platelets 213 {x10E3/uL} (Normal) Range: 150-379 RDW 14.0 % (Normal) Range: 12.3-15.4 MCHC 33.2 g/dL (Normal) Range: 31.5-35.7 MCH 27.5 pg (Normal) Range: 26.6-33.0 MCV 83 fL (Normal) Range: 79-97 Hematocrit 38.2 % (Normal) Range: 37.5-51.0 Hemoglobin 12.7 g/dL (Normal) Range: 12.6-17.7 RBC 4.62 {x10E6/uL} (Normal) Range: 4.14-5.80 WBC 4.6 {x10E3/uL} (Normal) Range: 3.4-10.8 0-Ipk-624455:25 TSH (59922) Comments: PATIENT NOT FASTINGPERFORMED BY: CB [facility] Rpoyfx3244 [address]ado RoadDublin [place] [id number] BY: [address] [id number] TSH 3.040 {uIU/mL} (Normal) Range: 0.450-4.500 7-Gze-278480:25 VITAMIN B-12 (CYANOCOBALAMIN) Comments: PATIENT NOT FASTINGPERFORMED BY: CB [facility] Matzhe5332 Ros[address] RoadDublin [place] [id number] BY: [address] [id number] (80756) Vitamin B12 227 pg/mL (Normal) Range: 211-946 7-Qnk-779995:25 PSA (PROSTATE SPECIFIC Comments: PATIENT NOT FASTINGPERFORMED BY: CB [facility] Vegbev9634 [address] RoadDublin [place] [id number] BY: [address] [id number] ANTIGEN) (V76.44) Prostate Specific Ag, 2.0 ng/mL (Normal) Range: 0.0-4.0 Serum Comments: Dee ECLIA methodology. .According to the [place] [employer], Serum PSA shoulddecrease and remain at undetectable levels after radicalprostatectomy. The AUA defines biochemical recurrence as an initialPSA value 0.2 ng/mL or greater followed by a subsequent confirmatoryPSA value 0.2 ng/mL or greater.Values obtained with d ifferent assay methods or kits cannot be usedinterchangeably. Results cannot be interpreted as absolute evidenceof the presence or absence of malignant disease. 64-Ycq-597877:06 CALCIFIDIOL (74244) VIT D 25 Comments: PATIENT WAS FASTINGPERFORMED BY: CB [facility] Qmlzqb9613 [address] RoadDublin [place] [id number] Vitamin D, 25-Hydroxy 42.4 ng/mL (Normal) Range: 30.0-100.0 Comments: Vitamin D deficiency has been defined by the [place] ofMedicine and an Endocrine Society practice guideline as alevel of serum 25-OH vitamin D less than 20 ng/mL (1,2).The Endocrine Society went on to further define vitamin Dinsufficiency as a level between 21 and 29 ng/mL (2).1. IOM ([place] of Medicine). 2010. Dietary reference intakes for calcium and D. [place]: The National Academies Press.2. Charles MF, Raissa OCONNELL, Nirmala ALBERT, et al. Evaluation, treatment, and prevention of vitamin D deficiency: an Endocrine Society clinical practice guideline. JCEM. 2010; 96(7):1911-30. :06 TSH (31575) Comments: PATIENT WAS FASTINGPERFORMED BY: [employer]in [place] [id number] TSH 3.460 {uIU/mL} (Normal) Range: 0.450-4.500 :06 URINALYSIS, W/ MICRO (98459) Comments: PATIENT WAS FASTINGPERFORMED BY: [facility] Education GroupC[facility] [id number] Microscopic Examination See below: (Normal) Comments: Microscopic was indicated and was performed. Microscopic Examination MICRON (Normal) Comments: Microscopic follows if indicated. Nitrite, Urine Negative (Normal) Urobilinogen,Semi-Qn 0.2 mg/dL (Normal) Range: 0.2-1.0 Bilirubin Negative (Normal) Occult Blood Negative (Normal) Ketones Negative (Normal) Glucose Negative (Normal) Protein Negative (Normal) WBC Esterase Negative (Normal) Appearance Clear (Normal) Urine-Color Yellow (Normal) pH 5.0 (Normal) Range: 5.0-7.5 Specific Garner 1.020 (Normal) Range: 1.005-1.030 :06 MICROALBUMIN: CREATININE RATIO Comments: PATIENT WAS FASTINGPERFORMED BY: [employer] Groupin [place] [id number] (15343) AND (39784) Microalb/Creat Ratio <2.4 {mg/g_creat} (Normal) Range: 0.0-30.0 Microalbumin, Urine <3.0 ug/mL (Normal) Creatinine, Urine 127.3 mg/dL (Normal) 16-Wfd-258165:06 METABOLIC PANEL, COMPREHENSIVE Comments: PATIENT WAS FASTINGPERFORMED BY: [place] Igdahu1405 [facility] [id number] (05722) ALT (SGPT) 15 [iU]/L (Normal) Range: 0-44 AST (SGOT) 16 [iU]/L (Normal) Range: 0-40 Alkaline Phosphatase, S 96 [iU]/L (Normal) Range: 39-117 Bilirubin, Total 0.4 mg/dL (Normal) Range: 0.0-1.2 A/G Ratio 2.3 (Abnormal) Range: 1.2-2.2 Globulin, Total 1.8 g/dL (Normal) Range: 1.5-4.5 Albumin, Serum 4.2 g/dL (Normal) Range: 3.5-4.8 Protein, Total, Serum 6.0 g/dL (Normal) Range: 6.0-8.5 Calcium, Serum 9.4 mg/dL (Normal) Range: 8.6-10.2 Carbon Dioxide, Total 23 mmol/L (Normal) Range: 18-29 Chloride, Serum 102 mmol/L (Normal) Range: 96-106 Potassium, Serum 4.7 mmol/L (Normal) Range: 3.5-5.2 Sodium, Serum 142 mmol/L (Normal) Range: 134-144 BUN/Creatinine Ratio 12 (Normal) Range: 10-24 eGFR If Africn Am 85 mL/min/1.73 (Normal) eGFR If NonAfricn Am 73 mL/min/1.73 (Normal) Creatinine, Serum 1.01 mg/dL (Normal) Range: 0.76-1.27 BUN 12 mg/dL (Normal) Range: 8-27 Glucose, Serum 136 mg/dL (Abnormal) Range: 65-99 17-Lgc-686524:06 LIPID PANEL (98695) Comments: PATIENT WAS FASTINGPERFORMED BY: [facility]tonRehabilitation [facility] of Southern New MexicoStpjbr9963 [facility] [id number] LDL/HDL Ratio 1.5 {ratio_units} (Normal) Range: 0.0-3.6 Comments: LDL/HDL Ratio Men Women 1/2 Avg.Risk 1.0 1.5 Av g.Risk 3.6 3.2 2X Avg.Risk 6.2 5.0 3X Avg.Risk 8.0 6.1 LDL Cholesterol Calc 63 mg/dL (Normal) Range: 0-99 VLDL Cholesterol Ezequiel 25 mg/dL (Normal) Range: 5-40 HDL Cholesterol 42 mg/dL (Normal) Triglycerides 126 mg/dL (Normal) Range: 0-149 Cholesterol, Total 130 mg/dL (Normal) Range: 100-199 84-Xqt-434516:06 CBC W/AUTO DIFF WBC (82190) Comments: PATIENT WAS FASTINGPERFORMED BY: LabCoChilton Memorial HospitalNvtpch2713 [facility] [id number] Immature Grans (Abs) 0.0 {x10E3/uL} (Normal) Range: 0.0-0.1 Immature Granulocytes 0 % (Normal) Baso (Absolute) 0.0 {x10E3/uL} (Normal) Range: 0.0-0.2 Eos (Absolute) 0.2 {x10E3/uL} (Normal) Range: 0.0-0.4 Monocytes(Absolute) 0.3 {x10E3/uL} (Normal) Range: 0.1-0.9 Lymphs (Absolute) 1.7 {x10E3/uL} (Normal) Range: 0.7-3.1 Neutrophils (Absolute) 2.5 {x10E3/uL} (Normal) Range: 1.4-7.0 Basos 1 % (Normal) Eos 4 % (Normal) Monocytes 7 % (Normal) Lymphs 35 % (Normal) Neutrophils 53 % (Normal) Platelets 222 {x10E3/uL} (Normal) Range: 150-379 RDW 13.9 % (Normal) Range: 12.3-15.4 MCHC 31.4 g/dL (Abnormal) Range: 31.5-35.7 MCH 26.9 pg (Normal) Range: 26.6-33.0 MCV 86 fL (Normal) Range: 79-97 Hematocrit 40.1 % (Normal) Range: 37.5-51.0 Hemoglobin 12.6 g/dL (Normal) Range: 12.6-17.7 Comments: Effective February 25, 2017 the reference interval for Hemoglobin MALES only will be changing to: Males 13-15 years: 12.6 - 17.7 Males >15 years: 13.0 - 17.7 RBC 4.68 {x10E6/uL} (Normal) Range: 4.14-5.80 WBC 4.7 {x10E3/uL} (Normal) Range: 3.4-10.8 :32 HgA1C , Office (24183) HgA1C , Office 7.3 % (Abnormal) Range: 4.6 - 7.1 :32 Blood Glucose , Office (74907) Blood Glucose , Office 185 (Normal) :33 ALDOSTERONE (42544) Comments: PATIENT NOT FASTINGPERFORMED BY: [place] [id number] Aldosterone 3.8 ng/dL (Normal) Range: 0.0-30.0 Comments: This test was developed and its performance characteristicsdetermined by [employer] It has not been cleared or approvedby the Food and Drug Administration. :33 RENIN (32045) Comments: PATIENT NOT FASTINGPERFORMED BY: [address] [id number] Renin Activity, Plasma 0.402 {ng/mL/hr} Range: 0.167-5.380 (Normal) Comments: This test was developed and its performance characteristicsdetermined by [employer] It has not been cleared or approvedby the Food and Drug Administration. :31 METANEPHRINES - URINE (70503) Comments: PATIENT NOT FASTINGPERFORMED BY: [facility]Co[address] [id number] Metanephrine, U,24hr 238 {ug/24_hr} (Normal) Range: 45-290 Comments: (Hypertensive) >17 years 11 months: 35 - 460 Metanephrine, Ur 119 ug/L (Normal) Normetanephr.,U,24h 370 {ug/24_hr} (Normal) Range: 82-500 Comments: (Hypertensive) >17 years 11 months: 110 - 1050 Normetanephrine, Ur 185 ug/L (Normal) :31 CATECHOLAMINES TOTAL, URINE Comments: PATIENT NOT FASTINGPERFORMED BY: [place] 825027 [facility] [id number] Information: START 09/25/2016@WarrenAM (01800) Dopamine, Ur, 24hr 280 {ug/24_hr} (Normal) Range: 0-510 Dopamine, Urine 140 ug/L (Normal) Norepinephrine,U,24h 42 {ug/24_hr} (Normal) Range: 0-135 Norepinephrine, Ur 21 ug/L (Normal) Epinephrine, U, 24hr 4 {ug/24_hr} (Normal) Range: 0-20 Epinephrine, Urine 2 ug/L (Normal) 26-Sep-20161:31 URINE VMA (94279) Comments: PATIENT NOT FASTINGPERFORMED BY: [facility] HospitalWundrbar[address] [id number] VMA, Urine, 24hr 3.4 {mg/24_hr} (Normal) Range: 0.0-7.5 Comments: This test was developed and its performance characteristicsdetermined by [employer] It has not been cleared or approvedby the Food and Drug Administration. VMA, Urine 1.7 mg/L (Normal) 50-Ksx-361513:05 Microscopic Examination Comments: PATIENT WAS FASTINGPERFORMED BY: [facility] CenterWundrbarChilton Memorial HospitalWkoqpc8566 [facility] [id number] Bacteria None seen (Normal) Mucus Threads Present (Normal) Epithelial Cells (non renal) None seen {/hpf} (Normal) Range: 0 - 10 RBC 0-2 {/hpf} (Normal) Range: 0 - 2 WBC 0-5 {/hpf} (Normal) Range: 0 - 5 12-Tax-144261:05 LIPID PANEL (28164) Comments: PATIENT WAS FASTINGPERFORMED BY: [facility]6370 [facility] [id number] LDL/HDL Ratio 1.3 {ratio_units} (Normal) Range: 0.0-3.6 Comments: LDL/HDL Ratio Men Women 1/2 Avg.Risk 1.0 1.5 Av g.Risk 3.6 3.2 2X Avg.Risk 6.2 5.0 3X Avg.Risk 8.0 6.1 LDL Cholesterol Calc 61 mg/dL (Normal) Range: 0-99 VLDL Cholesterol Ezequiel 19 mg/dL (Normal) Range: 5-40 HDL Cholesterol 47 mg/dL (Normal) Triglycerides 94 mg/dL (Normal) Range: 0-149 Cholesterol, Total 127 mg/dL (Normal) Range: 100-199 :05 URINALYSIS, W/ MICRO (09861) Comments: PATIENT WAS FASTINGPERFORMED BY: [facility] [id number] Microscopic Examination See below: (Normal) Comments: Microscopic was indicated and was performed. Microscopic Examination MICRON (Normal) Comments: Microscopic follows if indicated. Nitrite, Urine Negative (Normal) Urobilinogen,Semi-Qn 0.2 mg/dL (Normal) Range: 0.2-1.0 Bilirubin Negative (Normal) Occult Blood Negative (Normal) Ketones Negative (Normal) Glucose Negative (Normal) Protein Negative (Normal) WBC Esterase Negative (Normal) Appearance Clear (Normal) Urine-Color Yellow (Normal) pH 5.5 (Normal) Range: 5.0-7.5 Specific Garner 1.024 (Normal) Range: 1.005-1.030 56-Hrp-333135:05 MICROALBUMIN: CREATININE RATIO Comments: PATIENT WAS FASTINGPERFORMED BY: extraTKT [facility] [id number] (40717) AND (49669) Microalb/Creat Ratio <1.7 {mg/g_creat} (Normal) Range: 0.0-30.0 Microalbumin, Urine <3.0 ug/mL (Normal) Creatinine, Urine 171.8 mg/dL (Normal) :05 METABOLIC PANEL, COMPREHENSIVE Comments: PATIENT WAS FASTINGPERFORMED BY: extraTKT [facility] [id number] (76303) ALT (SGPT) 15 [iU]/L (Normal) Range: 0-44 AST (SGOT) 15 [iU]/L (Normal) Range: 0-40 Alkaline Phosphatase, S 93 [iU]/L (Normal) Range: 39-117 Bilirubin, Total 0.4 mg/dL (Normal) Range: 0.0-1.2 A/G Ratio 1.8 (Normal) Range: 1.2-2.2 Globulin, Total 2.3 g/dL (Normal) Range: 1.5-4.5 Albumin, Serum 4.2 g/dL (Normal) Range: 3.5-4.8 Protein, Total, Serum 6.5 g/dL (Normal) Range: 6.0-8.5 Calcium, Serum 9.4 mg/dL (Normal) Range: 8.6-10.2 Carbon Dioxide, Total 23 mmol/L (Normal) Range: 18-29 Chloride, Serum 104 mmol/L (Normal) Range: 96-106 Potassium, Serum 4.7 mmol/L (Normal) Range: 3.5-5.2 Sodium, Serum 143 mmol/L (Normal) Range: 134-144 BUN/Creatinine Ratio 12 (Normal) Range: 10-24 eGFR If Africn Am 74 mL/min/1.73 (Normal) eGFR If NonAfricn Am 64 mL/min/1.73 (Normal) Creatinine, Serum 1.14 mg/dL (Normal) Range: 0.76-1.27 BUN 14 mg/dL (Normal) Range: 8-27 Glucose, Serum 117 mg/dL (Abnormal) Range: 65-99 42-Amx-505665:05 CBC W/AUTO DIFF WBC (01962) Comments: PATIENT WAS FASTINGPERFORMED BY: LabCoChilton Memorial HospitalDvocwx0467 [facility] [id number] Immature Grans (Abs) 0.0 {x10E3/uL} (Normal) Range: 0.0-0.1 Immature Granulocytes 0 % (Normal) Baso (Absolute) 0.0 {x10E3/uL} (Normal) Range: 0.0-0.2 Eos (Absolute) 0.2 {x10E3/uL} (Normal) Range: 0.0-0.4 Monocytes(Absolute) 0.3 {x10E3/uL} (Normal) Range: 0.1-0.9 Lymphs (Absolute) 1.7 {x10E3/uL} (Normal) Range: 0.7-3.1 Neutrophils (Absolute) 2.7 {x10E3/uL} (Normal) Range: 1.4-7.0 Basos 0 % (Normal) Eos 3 % (Normal) Monocytes 7 % (Normal) Lymphs 35 % (Normal) Neutrophils 55 % (Normal) Platelets 204 {x10E3/uL} (Normal) Range: 150-379 RDW 14.1 % (Normal) Range: 12.3-15.4 MCHC 33.2 g/dL (Normal) Range: 31.5-35.7 MCH 27.7 pg (Normal) Range: 26.6-33.0 MCV 83 fL (Normal) Range: 79-97 Hematocrit 38.5 % (Normal) Range: 37.5-51.0 Hemoglobin 12.8 g/dL (Normal) Range: 12.6-17.7 RBC 4.62 {x10E6/uL} (Normal) Range: 4.14-5.80 WBC 4.9 {x10E3/uL} (Normal) Range: 3.4-10.8 :05 TSH ([id number]) Comments: PATIENT WAS FASTINGPERFORMED BY: Halton VibeWrite [facility] [id number] TSH 3.460 {uIU/mL} (Normal) Range: 0.450-4.500 :05 T4, FREE (THYROXINE) ([id number]) Comments: PATIENT WAS FASTINGPERFORMED BY: Halton [id number] [facility] [place] [id number] T4,Free(Direct) 1.34 ng/dL (Normal) Range: 0.82-1.77 :05 T3, FREE (TRIDOTHYRONINE) ([id number]) Comments: PATIENT WAS FASTINGPERFORMED BY: Halton [id number] [facility] [id number] Triiodothyronine,Free,Serum 3.0 pg/mL (Normal) Range: 2.0-4.4 :05 CALCIFIDIOL ([id number]) VIT D 25 Comments: PATIENT WAS FASTINGPERFORMED BY: Halton [id number] [facility] [id number] Vitamin D, 25-Hydroxy 46.6 ng/mL (Normal) Range: 30.0-100.0 Comments: Vitamin D deficiency has been defined by the [place] of[employer] and an Endocrine Society practice guideline as alevel of serum 25-OH vitamin D less than 20 ng/mL (1,2).The Endocrine Society went on to further define vitamin Dinsufficiency as a level between 21 and 29 ng/mL (2).1. IOM ([place] of Medicine). 2010. Dietary reference intakes for calcium and D. [place]: The National Academies Press.2. Charles MF, Raissa OCONNELL, Nirmala ALBERT, et al. Evaluation, treatment, and prevention of vitamin D deficiency: an Endocrine Society clinical practice guideline. JCEM. 2010; 96(7):1911-30. :42 HgA1C , Office (92902) HgA1C , Office 6.6 % (Normal) Range: 4.6 - 7.1 :42 Blood Glucose , Office (57517) Blood Glucose , Office 117 (Normal) :59 HgA1C , Office (64731) HgA1C , Office 6.8 % (Normal) Range: 4.6 - 7.1 :59 Blood Glucose , Office (73674) Blood Glucose , Office 237 (Normal) :52 Rapid Flu (29811 x 2) Influenza A Ag neg (Normal) :19 HgA1C , Office (84400) HgA1C , Office 6.6 % (Normal) Range: 4.6 - 7.1 :19 Blood Glucose , Office (50887) Blood Glucose , Office 171 (Normal) :43 Microscopic Examination Comments: PATIENT WAS FASTINGPERFORMED BY: [facility]CoCh[facility] HospitalTcmbsz4188 [facility] [id number] Bacteria Few (Normal) Mucus Threads Present (Normal) Epithelial Cells (non renal) 0-10 {/hpf} (Normal) Range: 0 - 10 RBC 0-2 {/hpf} (Normal) Range: 0 - 2 WBC 0-5 {/hpf} (Normal) Range: 0 - 5 :53 Serum Creatinine AND GFR Comments: [facility] [address] [place], [place], [id number] EST GFR - AA 83 mL/min (Normal) Comments: GFR Calc EST GFR 69 mL/min (Normal) Comments: Non- GFR Calc CREAT,SERUM 1.12 mg/dL (Normal) Range: 0.70-1.30 Comments: The validity of the calculated GFR AND GFRAA in patients over70 years has not been determined. Clinical correlation isessential. :43 CALCIFIDIOL (17747) VIT D 25 Comments: PATIENT WAS FASTINGPERFORMED BY: uBeam70 [facility] [id number] Vitamin D, 25-Hydroxy 55.4 ng/mL (Normal) Range: 30.0-100.0 Comments: Vitamin D deficiency has been defined by the [place] ofN[facility]cine and an Endocrine Society practice guideline as alevel of serum 25-OH vitamin D less than 20 ng/mL (1,2).The Endocrine Society went on to further define vitamin Dinsufficiency as a level between 21 and 29 ng/mL (2).1. IOM ([place] of Medicine). 2010. Dietary reference intakes for calcium and D. [place]: The National Academies Press.2. Charles MF, Raissa NC, Nirmala ALBERT, et al. Evaluation, treatment, and prevention of vitamin D deficiency: an Endocrine Society clinical practice guideline. JCEM. 2010; 96(7):1911-30. :43 URINALYSIS, W/ MICRO (79718) Comments: PATIENT WAS FASTINGPERFORMED BY: [facility]6370 [facility] [id number] Microscopic Examination See below: (Normal) Comments: Microscopic was indicated and was performed. Microscopic Examination MICRON (Normal) Comments: Microscopic follows if indicated. Nitrite, Urine Negative (Normal) Urobilinogen,Semi-Qn 0.2 mg/dL (Normal) Range: 0.2-1.0 Bilirubin Negative (Normal) Occult Blood Negative (Normal) Ketones Negative (Normal) Glucose Negative (Normal) Protein Negative (Normal) WBC Esterase Negative (Normal) Appearance Clear (Normal) Urine-Color Yellow (Normal) pH 5.5 (Normal) Range: 5.0-7.5 Specific Garner 1.022 (Normal) Range: 1.005-1.030 8-Lkm-741848:43 MICROALBUMIN: CREATININE RATIO Comments: PATIENT WAS FASTINGPERFORMED BY: H2i TechnologiesScheurer Hospital6370 [facility] [id number] (40611) AND (65038) Microalb/Creat Ratio <2.4 {mg/g_creat} (Normal) Range: 0.0-30.0 Microalbumin, Urine <3.0 ug/mL (Normal) Creatinine, Urine 122.5 mg/dL (Normal) 8-Drj-369655:43 METABOLIC PANEL, COMPREHENSIVE Comments: PATIENT WAS FASTINGPERFORMED BY: H2i TechnologiesMoberly Regional Medical CenterMxpjxn3558 [facility] [id number] (14160) ALT (SGPT) 12 [iU]/L (Normal) Range: 0-44 AST (SGOT) 12 [iU]/L (Normal) Range: 0-40 Alkaline Phosphatase, S 100 [iU]/L (Normal) Range: 39-117 Bilirubin, Total 0.3 mg/dL (Normal) Range: 0.0-1.2 A/G Ratio 2.1 (Normal) Range: 1.1-2.5 Globulin, Total 2.0 g/dL (Normal) Range: 1.5-4.5 Albumin, Serum 4.1 g/dL (Normal) Range: 3.5-4.8 Protein, Total, Serum 6.1 g/dL (Normal) Range: 6.0-8.5 Calcium, Serum 9.2 mg/dL (Normal) Range: 8.6-10.2 Carbon Dioxide, Total 24 mmol/L (Normal) Range: 18-29 Chloride, Serum 103 mmol/L (Normal) Range: 97-106 Potassium, Serum 5.1 mmol/L (Normal) Range: 3.5-5.2 Sodium, Serum 140 mmol/L (Normal) Range: 136-144 BUN/Creatinine Ratio 13 (Normal) Range: 10-22 eGFR If Africn Am 78 mL/min/1.73 (Normal) eGFR If NonAfricn Am 67 mL/min/1.73 (Normal) Creatinine, Serum 1.09 mg/dL (Normal) Range: 0.76-1.27 BUN 14 mg/dL (Normal) Range: 8-27 Glucose, Serum 120 mg/dL (Abnormal) Range: 65-99 9-Azq-338957:43 TSH (04404) Comments: PATIENT WAS FASTINGPERFORMED BY: [facility]6370 [facility] [id number] TSH 4.010 {uIU/mL} (Normal) Range: 0.450-4.500 :43 LIPID PANEL (49770) Comments: PATIENT WAS FASTINGPERFORMED BY: [facility]6370 [facility] [id number] LDL/HDL Ratio 1.2 {ratio_units} (Normal) Range: 0.0-3.6 Comments: LDL/HDL Ratio Men Women 1/2 Avg.Risk 1.0 1.5 Av g.Risk 3.6 3.2 2X Avg.Risk 6.2 5.0 3X Avg.Risk 8.0 6.1 LDL Cholesterol Calc 55 mg/dL (Normal) Range: 0-99 VLDL Cholesterol Ezequiel 16 mg/dL (Normal) Range: 5-40 HDL Cholesterol 46 mg/dL (Normal) Comments: According to ATP-III Guidelines, HDL-C >59 mg/dL is considered anegative risk factor for CHD. Triglycerides 82 mg/dL (Normal) Range: 0-149 Cholesterol, Total 117 mg/dL (Normal) Range: 100-199 :43 CBC W/AUTO DIFF WBC (49844) Comments: PATIENT WAS FASTINGPERFORMED BY: [facility]6370 [facility] [id number] Immature Grans (Abs) 0.0 {x10E3/uL} (Normal) Range: 0.0-0.1 Immature Granulocytes 0 % (Normal) Baso (Absolute) 0.0 {x10E3/uL} (Normal) Range: 0.0-0.2 Eos (Absolute) 0.2 {x10E3/uL} (Normal) Range: 0.0-0.4 Monocytes(Absolute) 0.4 {x10E3/uL} (Normal) Range: 0.1-0.9 Lymphs (Absolute) 1.9 {x10E3/uL} (Normal) Range: 0.7-3.1 Neutrophils (Absolute) 3.4 {x10E3/uL} (Normal) Range: 1.4-7.0 Basos 1 % (Normal) Eos 3 % (Normal) Monocytes 7 % (Normal) Lymphs 32 % (Normal) Neutrophils 57 % (Normal) Platelets 236 {x10E3/uL} (Normal) Range: 150-379 RDW 14.1 % (Normal) Range: 12.3-15.4 MCHC 32.5 g/dL (Normal) Range: 31.5-35.7 MCH 27.7 pg (Normal) Range: 26.6-33.0 MCV 85 fL (Normal) Range: 79-97 Hematocrit 40.0 % (Normal) Range: 37.5-51.0 Hemoglobin 13.0 g/dL (Normal) Range: 12.6-17.7 RBC 4.70 {x10E6/uL} (Normal) Range: 4.14-5.80 WBC 6.0 {x10E3/uL} (Normal) Range: 3.4-10.8 :27 HgA1C , Office (37875) HgA1C , Office 6.6 % (Normal) Range: 4.6 - 7.1 :27 Blood Glucose , Office (63355) Blood Glucose , Office 168 (Normal) 53-Htl-233278:08 Microscopic Examination Comments: PATIENT WAS FASTINGPERFORMED BY: [facility]6370 [facility] [id number] Bacteria None seen (Normal) Mucus Threads Present (Normal) Epithelial Cells (non renal) None seen {/hpf} (Normal) Range: 0 - 10 RBC None seen {/hpf} (Normal) Range: 0 - 2 WBC 0-5 {/hpf} (Normal) Range: 0 - 5 :08 CALCIFIDIOL (72092) VIT D 25 Comments: PATIENT WAS FASTINGPERFORMED BY: [facility]6370 [facility] [id number] Vitamin D, 25-Hydroxy 62.4 ng/mL (Normal) Range: 30.0-100.0 Comments: Vitamin D deficiency has been defined by the [place] ofMedicine and an Endocrine Society practice guideline as alevel of serum 25-OH vitamin D less than 20 ng/mL (1,2).The Endocrine Society went on to further define vitamin Dinsufficiency as a level between 21 and 29 ng/mL (2).1. IOM ([place] of Medicine). 2010. Dietary reference intakes for calcium and D. [place]: The National Academies Press.2. Charles MF, Raissa OCONNELL, Nirmala ALBERT, et al. Evaluation, treatment, and prevention of vitamin D deficiency: an Endocrine Society clinical practice guideline. JCEM. 2010; 96(7):1911-30. 99-Ydn-971517:08 URINALYSIS, W/ MICRO (54497) Comments: PATIENT WAS FASTINGPERFORMED BY: [facility] GroupC[facility] [id number] Microscopic Examination See below: (Normal) Comments: Microscopic was indicated and was performed. Microscopic Examination MICRON (Normal) Comments: Microscopic follows if indicated. Nitrite, Urine Negative (Normal) Urobilinogen,Semi-Qn 0.2 mg/dL (Normal) Range: 0.2-1.0 Bilirubin Negative (Normal) Occult Blood Negative (Normal) Ketones Negative (Normal) Glucose Negative (Normal) Protein Negative (Normal) WBC Esterase Negative (Normal) Appearance Clear (Normal) Urine-Color Yellow (Normal) pH 6.0 (Normal) Range: 5.0-7.5 Specific Garner 1.022 (Normal) Range: 1.005-1.030 13-Kex-584547:08 MICROALBUMIN: CREATININE RATIO Comments: PATIENT WAS FASTINGPERFORMED BY: uBeam70 [facility] [id number] (86542) AND (60492) Microalb/Creat Ratio <1.8 {mg/g_creat} (Normal) Range: 0.0-30.0 Microalbumin, Urine <3.0 ug/mL (Normal) Creatinine, Urine 164.4 mg/dL (Normal) :08 METABOLIC PANEL, COMPREHENSIVE Comments: PATIENT WAS FASTINGPERFORMED BY: Eferio VibeWrite [facility] [id number] (38234) ALT (SGPT) 16 [iU]/L (Normal) Range: 0-44 AST (SGOT) 17 [iU]/L (Normal) Range: 0-40 Alkaline Phosphatase, S 91 [iU]/L (Normal) Range: 39-117 Bilirubin, Total 0.5 mg/dL (Normal) Range: 0.0-1.2 A/G Ratio 1.7 (Normal) Range: 1.1-2.5 Globulin, Total 2.5 g/dL (Normal) Range: 1.5-4.5 Albumin, Serum 4.2 g/dL (Normal) Range: 3.5-4.8 Protein, Total, Serum 6.7 g/dL (Normal) Range: 6.0-8.5 Calcium, Serum 9.4 mg/dL (Normal) Range: 8.6-10.2 Carbon Dioxide, Total 26 mmol/L (Normal) Range: 18-29 Chloride, Serum 103 mmol/L (Normal) Range: 97-108 Potassium, Serum 4.5 mmol/L (Normal) Range: 3.5-5.2 Sodium, Serum 142 mmol/L (Normal) Range: 134-144 BUN/Creatinine Ratio 13 (Normal) Range: 10-22 eGFR If Africn Am 79 mL/min/1.73 (Normal) eGFR If NonAfricn Am 68 mL/min/1.73 (Normal) Creatinine, Serum 1.09 mg/dL (Normal) Range: 0.76-1.27 BUN 14 mg/dL (Normal) Range: 8-27 Glucose, Serum 108 mg/dL (Abnormal) Range: 65-99 86-Hdx-210643:08 LIPID PANEL (98311) Comments: PATIENT WAS FASTINGPERFORMED BY: [facility]CoCh[facility] HospitalBzmlwp9407 [facility] [id number] LDL/HDL Ratio 1.4 {ratio_units} (Normal) Range: 0.0-3.6 Comments: LDL/HDL Ratio Men Women 1/2 Avg.Risk 1.0 1.5 Av g.Risk 3.6 3.2 2X Avg.Risk 6.2 5.0 3X Avg.Risk 8.0 6.1 LDL Cholesterol Calc 60 mg/dL (Normal) Range: 0-99 VLDL Cholesterol Ezequiel 20 mg/dL (Normal) Range: 5-40 HDL Cholesterol 44 mg/dL (Normal) Comments: According to ATP-III Guidelines, HDL-C >59 mg/dL is considered anegative risk factor for CHD. Triglycerides 99 mg/dL (Normal) Range: 0-149 Cholesterol, Total 124 mg/dL (Normal) Range: 100-199 :08 CBC W/AUTO DIFF WBC Comments: PATIENT WAS FASTINGPERFORMED BY: [facility]6370 [facility] [id number] Information: [id number] (65376) Immature Grans (Abs) 0.0 {x10E3/uL} (Normal) Range: 0.0-0.1 Immature Granulocytes 0 % (Normal) Baso (Absolute) 0.0 {x10E3/uL} (Normal) Range: 0.0-0.2 Eos (Absolute) 0.1 {x10E3/uL} (Normal) Range: 0.0-0.4 Monocytes(Absolute) 0.4 {x10E3/uL} (Normal) Range: 0.1-0.9 Lymphs (Absolute) 1.6 {x10E3/uL} (Normal) Range: 0.7-3.1 Neutrophils (Absolute) 3.4 {x10E3/uL} (Normal) Range: 1.4-7.0 Basos 1 % (Normal) Eos 2 % (Normal) Monocytes 8 % (Normal) Lymphs 28 % (Normal) Neutrophils 61 % (Normal) Platelets 214 {x10E3/uL} (Normal) Range: 150-379 RDW 15.1 % (Normal) Range: 12.3-15.4 MCHC 31.8 g/dL (Normal) Range: 31.5-35.7 MCH 27.0 pg (Normal) Range: 26.6-33.0 MCV 85 fL (Normal) Range: 79-97 Hematocrit 40.9 % (Normal) Range: 37.5-51.0 Hemoglobin 13.0 g/dL (Normal) Range: 12.6-17.7 RBC 4.81 {x10E6/uL} (Normal) Range: 4.14-5.80 WBC 5.5 {x10E3/uL} (Normal) Range: 3.4-10.8 :08 TSH (30898) Comments: PATIENT WAS FASTINGPERFORMED BY: [facility]6370 [facility] [id number] TSH 4.000 {uIU/mL} (Normal) Range: 0.450-4.500 :03 HgA1C , Office (42291) HgA1C , Office 6.2 % (Normal) Range: 4.6 - 7.1 :03 Blood Glucose , Office (14640) Blood Glucose , Office 102 (Normal) :49 Throat Culture (55445) Comments: PATIENT NOT FASTINGPERFORMED BY: [place] VibeWrite [facility] [id number] Information: SRC:THRT [id number] Result 1 RRF (Normal) Comments: Routine respiratory alfredo Upper Respiratory Culture Final report (Normal) :02 Rapid Strep Test, Office (93854) Rapid Strep Test, Office Negative (Normal) :48 Influenza A&B Viral Comments: PATIENT NOT FASTINGPERFORMED BY: extraTKT [facility] [id number] Information: SRC:NOS [id number] Culture (31523) Viral Culture,Rapid,Influenza FLUABN (Normal) Comments: Negative:No Influenza A or B detected. :26 Rapid Flu (48572 x 2) Influenza A Ag negative (Normal) :30 HgA1C , Office (43197) HgA1C , Office 7.3 % (Abnormal) Range: 4.6 - 7.1 :30 Blood Glucose , Office (29022) Blood Glucose , Office 191 (Normal) :52 Microscopic Examination Comments: PATIENT WAS FASTINGPERFORMED BY: Eferio Rpnifq4029 [facility] [id number] Bacteria None seen (Normal) Mucus Threads Present (Normal) Epithelial Cells (non renal) 0-10 {/hpf} (Normal) Range: 0 - 10 RBC 0-2 {/hpf} (Normal) Range: 0 - 2 WBC 0-5 {/hpf} (Normal) Range: 0 - 5 :52 CALCIFIDIOL (10226) VIT D 25 Comments: PATIENT WAS FASTINGPERFORMED BY: Eferio VibeWrite [facility] [id number] Vitamin D, 25-Hydroxy 44.9 ng/mL (Normal) Range: 30.0-100.0 Comments: Vitamin D deficiency has been defined by the [place] ofMedicine and an Endocrine Society practice guideline as alevel of serum 25-OH vitamin D less than 20 ng/mL (1,2).The Endocrine Society went on to further define vitamin Dinsufficiency as a level between 21 and 29 ng/mL (2).1. IOM ([place] of Medicine). 2010. Dietary reference intakes for calcium and D. [place]: The National AcademKybalion Press.2. Charles MF, Raissa NC, Nirmala ALBERT, et al. Evaluation, treatment, and prevention of vitamin D deficiency: an Endocrine Society clinical practice guideline. JCEM. 2010; 96(7):1911-30. :52 LIPID PANEL (05532) Comments: PATIENT WAS FASTINGPERFORMED BY: [employer] [facility] HospitalPrePayC[facility] [id number] LDL/HDL Ratio 2.4 {ratio_units} (Normal) Range: 0.0-3.6 Comments: LDL/HDL Ratio Men Women 1/2 Avg.Risk 1.0 1.5 Av g.Risk 3.6 3.2 2X Avg.Risk 6.2 5.0 3X Avg.Risk 8.0 6.1 LDL Cholesterol Calc 120 mg/dL (Abnormal) Range: 0-99 VLDL Cholesterol Ezequiel 25 mg/dL (Normal) Range: 5-40 HDL Cholesterol 51 mg/dL (Normal) Comments: According to ATP-III Guidelines, HDL-C >59 mg/dL is considered anegative risk factor for CHD. Triglycerides 123 mg/dL (Normal) Range: 0-149 Cholesterol, Total 196 mg/dL (Normal) Range: 100-199 :52 TSH (02726) Comments: PATIENT WAS FASTINGPERFORMED BY: [employer] [facility] HospitalPrePayC[facility] [id number] TSH 4.480 {uIU/mL} (Normal) Range: 0.450-4.500 :52 URINALYSIS, W/ MICRO (11637) Comments: PATIENT WAS FASTINGPERFORMED BY: [employer] RoadDublin [place] [id number] Microscopic Examination See below: (Normal) Comments: Microscopic was indicated and was performed. Microscopic Examination MICRON (Normal) Comments: Microscopic follows if indicated. Nitrite, Urine Negative (Normal) Urobilinogen,Semi-Qn 0.2 mg/dL (Normal) Range: 0.2-1.0 Bilirubin Negative (Normal) Occult Blood Negative (Normal) Ketones Negative (Normal) Glucose Negative (Normal) Protein Negative (Normal) WBC Esterase Negative (Normal) Appearance Clear (Normal) Urine-Color Yellow (Normal) pH 6.0 (Normal) Range: 5.0-7.5 Specific Garner 1.024 (Normal) Range: 1.005-1.030 :52 MICROALBUMIN: CREATININE RATIO Comments: PATIENT WAS FASTINGPERFORMED BY: [facility]6370 [facility] [id number] (91283) AND (38531) Microalb/Creat Ratio <2.2 {mg/g_creat} (Normal) Range: 0.0-30.0 Microalbumin, Urine <3.0 ug/mL (Normal) Range: 0.0-17.0 Creatinine, Urine 135.9 mg/dL (Normal) Range: 22.0-328.0 :52 METABOLIC PANEL, COMPREHENSIVE Comments: PATIENT WAS FASTINGPERFORMED BY: [place] 1092870 [facility] [id number]; will review at 02/21 appt (60138) ALT (SGPT) 13 [iU]/L (Normal) Range: 0-44 AST (SGOT) 13 [iU]/L (Normal) Range: 0-40 Alkaline Phosphatase, S 86 [iU]/L (Normal) Range: 39-117 Bilirubin, Total <0.2 mg/dL (Normal) Range: 0.0-1.2 A/G Ratio 2.0 (Normal) Range: 1.1-2.5 Globulin, Total 2.0 g/dL (Normal) Range: 1.5-4.5 Albumin, Serum 4.0 g/dL (Normal) Range: 3.5-4.8 Protein, Total, Serum 6.0 g/dL (Normal) Range: 6.0-8.5 Calcium, Serum 9.4 mg/dL (Normal) Range: 8.6-10.2 Carbon Dioxide, Total 26 mmol/L (Normal) Range: 18-29 Chloride, Serum 100 mmol/L (Normal) Range: 97-108 Potassium, Serum 5.2 mmol/L (Normal) Range: 3.5-5.2 Sodium, Serum 139 mmol/L (Normal) Range: 134-144 BUN/Creatinine Ratio 17 (Normal) Range: 10-22 eGFR If Africn Am 79 mL/min/1.73 (Normal) eGFR If NonAfricn Am 68 mL/min/1.73 (Normal) Creatinine, Serum 1.09 mg/dL (Normal) Range: 0.76-1.27 BUN 18 mg/dL (Normal) Range: 8-27 Glucose, Serum 130 mg/dL (Abnormal) Range: 65-99 54-Ful-34092:52 CBC W/AUTO DIFF WBC Comments: PATIENT WAS FASTINGPERFORMED BY: [facility]Sche[facility] Hospital6370 [facility] [id number] Information: [id number] (11979) Immature Grans (Abs) 0.0 {x10E3/uL} (Normal) Range: 0.0-0.1 Immature Granulocytes 0 % (Normal) Baso (Absolute) 0.0 {x10E3/uL} (Normal) Range: 0.0-0.2 Eos (Absolute) 0.2 {x10E3/uL} (Normal) Range: 0.0-0.4 Monocytes(Absolute) 0.5 {x10E3/uL} (Normal) Range: 0.1-0.9 Lymphs (Absolute) 1.5 {x10E3/uL} (Normal) Range: 0.7-3.1 Neutrophils (Absolute) 3.2 {x10E3/uL} (Normal) Range: 1.4-7.0 Basos 1 % (Normal) Eos 3 % (Normal) Monocytes 8 % (Normal) Lymphs 29 % (Normal) Neutrophils 59 % (Normal) Platelets 222 {x10E3/uL} (Normal) Range: 150-379 RDW 14.1 % (Normal) Range: 12.3-15.4 MCHC 32.3 g/dL (Normal) Range: 31.5-35.7 MCH 26.7 pg (Normal) Range: 26.6-33.0 MCV 83 fL (Normal) Range: 79-97 Hematocrit 39.3 % (Normal) Range: 37.5-51.0 Hemoglobin 12.7 g/dL (Normal) Range: 12.6-17.7 RBC 4.75 {x10E6/uL} (Normal) Range: 4.14-5.80 WBC 5.4 {x10E3/uL} (Normal) Range: 3.4-10.8 :56 HgA1C , Office (73733) HgA1C , Office 5.9 % (Normal) Range: 4.6 - 7.1 :56 Blood Glucose , Office (69241) Blood Glucose , Office 103 (Normal) :35 HgA1C , Office (49176) HgA1C , Office 6.0 % (Normal) Range: 4.6 - 7.1 :34 Blood Glucose , Office (09712) Blood Glucose , Office 135 (Normal) :45 Potassium Comments: Test performed at:[facility] [address] [place] [address] [id number] K 4.3 mmol/L (Normal) Range: 3.5-5.1 :54 Comp. Metabolic Panel (14) Comments: PATIENT WAS FASTINGPERFORMED BY: [facility]CoCh[facility] HospitalAwbypo7797 [facility] [id number] Information: [id number] ALT (SGPT) 11 [iU]/L (Normal) Range: 0-44 AST (SGOT) 14 [iU]/L (Normal) Range: 0-40 Alkaline Phosphatase, S 89 [iU]/L (Normal) Range: 39-117 Bilirubin, Total 0.3 mg/dL (Normal) Range: 0.0-1.2 A/G Ratio 2.1 (Normal) Range: 1.1-2.5 Globulin, Total 2.0 g/dL (Normal) Range: 1.5-4.5 Albumin, Serum 4.1 g/dL (Normal) Range: 3.5-4.8 Protein, Total, Serum 6.1 g/dL (Normal) Range: 6.0-8.5 Calcium, Serum 9.5 mg/dL (Normal) Range: 8.6-10.2 Carbon Dioxide, Total 25 mmol/L (Normal) Range: 18-29 Chloride, Serum 104 mmol/L (Normal) Range: 97-108 Potassium, Serum 5.3 mmol/L (Abnormal) Range: 3.5-5.2 Sodium, Serum 142 mmol/L (Normal) Range: 134-144 BUN/Creatinine Ratio 14 (Normal) Range: 10-22 eGFR If Africn Am 80 mL/min/1.73 (Normal) eGFR If NonAfricn Am 69 mL/min/1.73 (Normal) Creatinine, Serum 1.08 mg/dL (Normal) Range: 0.76-1.27 BUN 15 mg/dL (Normal) Range: 8-27 Glucose, Serum 117 mg/dL (Abnormal) Range: 65-99 06-Kdw-27386:54 Lipid Panel With LDL/HDL Comments: PATIENT WAS FASTINGPERFORMED BY: [facility] GroupC[facility] [id number] Ratio LDL/HDL Ratio 2.1 {ratio_units} Range: 0.0-3.6 (Normal) Comments: LDL/HDL Ratio Men Women 1/2 Avg.Risk 1.0 1.5 Av g.Risk 3.6 3.2 2X Avg.Risk 6.2 5.0 3X Avg.Risk 8.0 6.1 LDL Cholesterol Calc 103 mg/dL (Abnormal) Range: 0-99 VLDL Cholesterol Ezequiel 16 mg/dL (Normal) Range: 5-40 HDL Cholesterol 48 mg/dL (Normal) Comments: According to ATP-III Guidelines, HDL-C >59 mg/dL is considered anegative risk factor for CHD. Triglycerides 78 mg/dL (Normal) Range: 0-149 Cholesterol, Total 167 mg/dL (Normal) Range: 100-199 02-Aug-2014 TSH 2.860 {uIU/mL} Comments: PATIENT WAS FASTINGPERFORMED BY: [facility]6370 [facility] [id number] 9:54 (Normal) Range: 0.450-4.500 02-Aug-2014 Vitamin D, 25-Hydroxy 61.9 ng/mL (Normal) Comments: PATIENT WAS FASTINGPERFORMED BY: Eferio Dnxyrw6897 [facility] [id number] 9:54 Range: 30.0-100.0 Comments: Vitamin D deficiency has been defined by the [place] ofMedicine and an Endocrine Society practice guideline as alevel of serum 25-OH vitamin D less than 20 ng/mL (1,2).The Endocrine Society went on to further define vitamin Dinsufficiency as a level between 21 and 29 ng/mL (2).1. IOM ([place] of Medicine). 2010. Dietary reference intakes for calcium and D. [place]: The National AcademKybalion Press.2. Charles MF, Raissa OCONNELL, Nirmala ALBERT, et al. Evaluation, treatment, and prevention of vitamin D deficiency: an Endocrine Society clinical practice guideline. JCEM. 2010; 96(7):1911-30. :13 HgA1C , Office (41868) HgA1C , Office 6.8 % (Normal) Range: 4.6 - 7.1 :13 Blood Glucose , Office (12532) Blood Glucose , Office 218 (Normal) 78-Oot-539825:24 Microscopic Examination Comments: PATIENT WAS FASTINGPERFORMED BY: [place] Btghvg4496 [facility] [id number] Bacteria None seen (Normal) Mucus Threads Present (Normal) Epithelial Cells (non renal) None seen {/hpf} (Normal) Range: 0 - 10 RBC 0-2 {/hpf} (Normal) Range: 0 - 2 WBC 0-5 {/hpf} (Normal) Range: 0 - 5 16-Exs-330105:24 Vitamin D Hydroxy (94434) Comments: PATIENT WAS FASTINGPERFORMED BY: Eferio Akxicw2582 [facility] [id number] Vitamin D, 25-Hydroxy 35.7 ng/mL (Normal) Range: 30.0-100.0 Comments: Vitamin D deficiency has been defined by the [place] ofMedicine and an Endocrine Society practice guideline as alevel of serum 25-OH vitamin D less than 20 ng/mL (1,2).The Endocrine Society went on to further define vitamin Dinsufficiency as a level between 21 and 29 ng/mL (2).1. IOM ([place] of Medicine). 2010. Dietary reference intakes for calcium and D. [place]: The National Academies Press.2. Charles MF, Raissa OCONNELL, Nirmala ALBERT, et al. Evaluation, treatment, and prevention of vitamin D deficiency: an Endocrine Society clinical practice guideline. JCEM. 2010; 96(7):1911-30. 94-Jbu-331851:24 URINALYSIS, W/ MICRO ([id number]) Comments: PATIENT WAS FASTINGPERFORMED BY: [email or web address] [facility]yticsUNC [facility] Center [id number] Microscopic Examination See below: (Normal) Comments: Microscopic was indicated and was performed. Microscopic Examination MICRON (Normal) Comments: Microscopic follows if indicated. Nitrite, Urine Negative (Normal) Urobilinogen,Semi-Qn 0.2 mg/dL (Normal) Range: 0.0-1.9 Bilirubin Negative (Normal) Occult Blood Negative (Normal) Ketones Negative (Normal) Glucose Negative (Normal) Protein Negative (Normal) WBC Esterase Negative (Normal) Appearance Clear (Normal) Urine-Color Yellow (Normal) pH 6.0 (Normal) Range: 5.0-7.5 Specific Garner 1.025 (Normal) Range: 1.005-1.030 [id number] TSH ([id number]) Comments: PATIENT WAS FASTINGPERFORMED BY: [facility] [facility]PrePayC[facility] [id number] TSH 2.740 {uIU/mL} (Normal) Range: 0.450-4.500 [id number] MICROALBUMIN: CREATININE RATIO Comments: PATIENT WAS FASTINGPERFORMED BY: Eferio Smnurl1171 [facility] [id number] ([id number]) AND ([id number]) Microalb/Creat Ratio <1.5 {mg/g_creat} (Normal) Range: 0.0-30.0 Microalbumin, Urine <3.0 ug/mL (Normal) Range: 0.0-17.0 Creatinine, Urine 205.5 mg/dL (Normal) Range: 22.0-328.0 36-Epn-454348:24 METABOLIC PANEL, COMPREHENSIVE Comments: PATIENT WAS FASTINGPERFORMED BY: [place] Qwnfqm8893 [facility] [id number] (76513) ALT (SGPT) 13 [iU]/L (Normal) Range: 0-44 AST (SGOT) 13 [iU]/L (Normal) Range: 0-40 Alkaline Phosphatase, S 91 [iU]/L (Normal) Range: 39-117 Bilirubin, Total 0.5 mg/dL (Normal) Range: 0.0-1.2 A/G Ratio 2.1 (Normal) Range: 1.1-2.5 Globulin, Total 1.9 g/dL (Normal) Range: 1.5-4.5 Albumin, Serum 4.0 g/dL (Normal) Range: 3.5-4.8 Protein, Total, Serum 5.9 g/dL (Abnormal) Range: 6.0-8.5 Calcium, Serum 9.3 mg/dL (Normal) Range: 8.6-10.2 Comments: Please note reference interval change Carbon Dioxide, Total 24 mmol/L (Normal) Range: 18-29 Chloride, Serum 100 mmol/L (Normal) Range: 97-108 Potassium, Serum 4.8 mmol/L (Normal) Range: 3.5-5.2 Sodium, Serum 141 mmol/L (Normal) Range: 134-144 BUN/Creatinine Ratio 10 (Normal) Range: 10-22 eGFR If Africn Am 74 mL/min/1.73 (Normal) eGFR If NonAfricn Am 64 mL/min/1.73 (Normal) Creatinine, Serum 1.15 mg/dL (Normal) Range: 0.76-1.27 BUN 12 mg/dL (Normal) Range: 8-27 Glucose, Serum 138 mg/dL (Abnormal) Range: 65-99 49-Okr-620310:24 LIPID PANEL (69328) Comments: PATIENT WAS FASTINGPERFORMED BY: [facility]tonCh[facility] HospitalFmxnbr3484 [facility] [id number] LDL/HDL Ratio 3.2 {ratio_units} (Normal) Range: 0.0-3.6 Comments: LDL/HDL Ratio Men Women 1/2 Avg.Risk 1.0 1.5 Av g.Risk 3.6 3.2 2X Avg.Risk 6.2 5.0 3X Avg.Risk 8.0 6.1 LDL Cholesterol Calc 149 mg/dL (Abnormal) Range: 0-99 VLDL Cholesterol Ezequiel 26 mg/dL (Normal) Range: 5-40 HDL Cholesterol 46 mg/dL (Normal) Comments: According to ATP-III Guidelines, HDL-C >59 mg/dL is considered anegative risk factor for CHD. Triglycerides 128 mg/dL (Normal) Range: 0-149 Cholesterol, Total 221 mg/dL (Abnormal) Range: 100-199 71-Pvd-746187:24 CBC W/AUTO DIFF WBC Comments: PATIENT WAS FASTINGPERFORMED BY: LabCoChilton Memorial HospitalKingww7600 [facility] [id number] Information: [id number] (85622) Immature Grans (Abs) 0.0 {x10E3/uL} (Normal) Range: 0.0-0.1 Immature Granulocytes 0 % (Normal) Baso (Absolute) 0.0 {x10E3/uL} (Normal) Range: 0.0-0.2 Eos (Absolute) 0.1 {x10E3/uL} (Normal) Range: 0.0-0.4 Monocytes(Absolute) 0.4 {x10E3/uL} (Normal) Range: 0.1-0.9 Lymphs (Absolute) 1.7 {x10E3/uL} (Normal) Range: 0.7-3.1 Neutrophils (Absolute) 2.8 {x10E3/uL} (Normal) Range: 1.4-7.0 Basos 0 % (Normal) Eos 2 % (Normal) Monocytes 7 % (Normal) Lymphs 33 % (Normal) Neutrophils 58 % (Normal) Platelets 258 {x10E3/uL} (Normal) Range: 150-379 RDW 14.8 % (Normal) Range: 12.3-15.4 MCHC 32.3 g/dL (Normal) Range: 31.5-35.7 MCH 26.9 pg (Normal) Range: 26.6-33.0 MCV 83 fL (Normal) Range: 79-97 Hematocrit 39.9 % (Normal) Range: 37.5-51.0 Hemoglobin 12.9 g/dL (Normal) Range: 12.6-17.7 RBC 4.80 {x10E6/uL} (Normal) Range: 4.14-5.80 WBC 5.0 {x10E3/uL} (Normal) Range: 3.4-10.8 :00 Fecal Occult Blood , Office (53117) Fecal Occult Blood , Office (Inhouse) negative (Normal) :57 PSA (PROSTATE SPECIFIC Comments: PATIENT NOT FASTINGPERFORMED BY: [place] Pvtemr9709 [facility] [id number] Information: [id number] ANTIGEN) (V76.44) Prostate Specific Ag, 1.5 ng/mL (Normal) Range: 0.0-4.0 Serum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 or other use of these documents isstrictly prohibited. If you have received this information in error,pleasenotify the sender immediately and arrange for the return or destructionofthese docu ments. Dictated on 08/04/12 1645 by HEATHER FONTENOT MDranscribed on 08/04/121717 by ITS IMPORTSign by HEATHER FONTENOT MD on 08/04/121718 Sign by: ___ HEATHER FONTENOT MD [id number] CBCD ANC 4.1 3/uL (Normal) Range: 2.0-7.7 IG% 0.30 % (Abnormal) Range: 0.0-0.0 B% 0.5 % (Normal) Range: 0-1 E% 1.8 % (Normal) Range: 0-5 M% 7.9 % (Normal) Range: 0-10 L% 24.2 % (Normal) Range: 19-41 N% 65.3 % (Normal) Range: 47-70 MPV 10.6 fL (Normal) Range: 6.2-12.0 PLT 223 K/mm3 (Normal) Range: 150-450 RDWSD 42.2 fL (Normal) Range: 35.1-43.9 RDWCV 14.1 % (Normal) Range: 11.6-14.6 MCHC 32.2 g/dL (Normal) Range: 32-36 MCH 26.9 pg (Abnormal) Range: 27.0-32.0 MCV 83.4 fL (Normal) Range: 80-94 HCT 41.6 % (Normal) Range: 40-54 HGB 13.4 g/dL (Normal) Range: 13.0-16.5 RBC 4.99 {M/mm3} (Normal) Range: 4.6-6.2 WBC 6.2 {k/mm3} (Normal) Range: 4.4-11.0 :57 METABOLIC PANEL, Comments: PATIENT NOT FASTINGPERFORMED BY: GUICHO [facility] Mzplkg8805 [facility] [id number] Information: [id number] COMPREHENSIVE ([id number]) ALT (SGPT) 13 [iU]/L (Normal) Range: 0-44 AST (SGOT) 14 [iU]/L (Normal) Range: 0-40 Alkaline Phosphatase, S 88 [iU]/L (Normal) Range: 25-160 Bilirubin, Total 0.2 mg/dL (Normal) Range: 0.0-1.2 A/G Ratio 1.9 (Normal) Range: 1.1-2.5 Globulin, Total 2.2 g/dL (Normal) Range: 1.5-4.5 Albumin, Serum 4.2 g/dL (Normal) Range: 3.6-4.8 Protein, Total, Serum 6.4 g/dL (Normal) Range: 6.0-8.5 Calcium, Serum 9.1 mg/dL (Normal) Range: 8.6-10.2 Carbon Dioxide, Total 24 mmol/L (Normal) Range: 20-32 Chloride, Serum 104 mmol/L (Normal) Range: 97-108 Potassium, Serum 4.4 mmol/L (Normal) Range: 3.5-5.2 Sodium, Serum 139 mmol/L (Normal) Range: 134-144 BUN/Creatinine Ratio 14 (Normal) Range: 10-22 eGFR If Africn Am 89 mL/min/1.73 (Normal) Creatinine, Serum 1.00 mg/dL (Normal) Range: 0.76-1.27 eGFR If NonAfricn Am 77 mL/min/1.73 (Normal) BUN 14 mg/dL (Normal) Range: 8-27 Glucose, Serum 79 mg/dL (Normal) Range: 65-99 :01 HgA1C , Office (39203) HgA1C , Office 6.2 % (Normal) Range: 4.6 - 7.1 :01 Blood Glucose , Office (39314) Blood Glucose , Office 89 (Normal) :48 Microscopic Examination Comments: PATIENT WAS FASTINGPERFORMED BY: H2i TechnologiesMoberly Regional Medical CenterOhurbe4080 [facility] [id number] Bacteria Few (Normal) Mucus Threads Present (Normal) Epithelial Cells (non renal) None seen {/hpf} (Normal) Range: 0 - 10 RBC 0-3 {/hpf} (Normal) Range: 0 - 3 WBC 0-5 {/hpf} (Normal) Range: 0 - 5 :48 TSH (26745) Comments: PATIENT WAS FASTINGPERFORMED BY: [facility]Re[facility] Southern [facility] MexicoKgeini1532 [facility] [id number] TSH 5.340 {uIU/mL} (Abnormal) Range: 0.450-4.500 :48 URINALYSIS, W/ MICRO (46234) Comments: PATIENT WAS FASTINGPERFORMED BY: [facility] TechnologiesSelect [facility] Zbnkuc3557 [facility] [id number] Microscopic Examination See below: (Normal) Microscopic Examination MICRON (Normal) Comments: Microscopic follows if indicated. Bilirubin Negative (Normal) Nitrite, Urine Negative (Normal) Urobilinogen,Semi-Qn 0.2 mg/dL (Normal) Range: 0.0-1.9 Occult Blood Negative (Normal) Ketones Negative (Normal) Glucose Negative (Normal) Protein Negative (Normal) WBC Esterase Negative (Normal) Appearance Clear (Normal) pH 5.5 (Normal) Range: 5.0-7.5 Urine-Color Yellow (Normal) Specific Garner 1.028 (Normal) Range: 1.005-1.030 :48 MICROALBUMIN: CREATININE RATIO Comments: PATIENT WAS FASTINGPERFORMED BY: H2i TechnologiesScheurer Hospital6370 [facility] [id number] ([id number]) AND ([id number]) Microalb/Creat Ratio 1.6 {mg/g_creat} (Normal) Range: 0.0-30.0 Creatinine, Urine 195.7 mg/dL (Normal) Range: 22.0-328.0 Microalbumin, Urine 3.2 ug/mL (Normal) Range: 0.0-17.0 :48 METABOLIC PANEL, COMPREHENSIVE Comments: PATIENT WAS FASTINGPERFORMED BY: SAFCell70 [facility] [id number] ([id number]) ALT (SGPT) 16 [iU]/L (Normal) Range: 0-44 AST (SGOT) 16 [iU]/L (Normal) Range: 0-40 Alkaline Phosphatase, S 93 [iU]/L (Normal) Range: 25-160 Bilirubin, Total 0.3 mg/dL (Normal) Range: 0.0-1.2 A/G Ratio 1.9 (Normal) Range: 1.1-2.5 Globulin, Total 2.2 g/dL (Normal) Range: 1.5-4.5 Albumin, Serum 4.2 g/dL (Normal) Range: 3.6-4.8 Protein, Total, Serum 6.4 g/dL (Normal) Range: 6.0-8.5 Calcium, Serum 9.7 mg/dL (Normal) Range: 8.6-10.2 Carbon Dioxide, Total 25 mmol/L (Normal) Range: 20-32 Chloride, Serum 103 mmol/L (Normal) Range: 97-108 Potassium, Serum 4.4 mmol/L (Normal) Range: 3.5-5.2 Sodium, Serum 141 mmol/L (Normal) Range: 134-144 BUN/Creatinine Ratio 12 (Normal) Range: 10-22 eGFR If Africn Am 78 mL/min/1.73 (Normal) eGFR If NonAfricn Am 68 mL/min/1.73 (Normal) Creatinine, Serum 1.11 mg/dL (Normal) Range: 0.76-1.27 BUN 13 mg/dL (Normal) Range: 8-27 Glucose, Serum 97 mg/dL (Normal) Range: 65-99 :48 LIPID PANEL (08524) Comments: PATIENT WAS FASTINGPERFORMED BY: [employer]6370 [facility] [id number] LDL Cholesterol Calc 97 mg/dL (Normal) Range: 0-99 LDL/HDL Ratio 1.7 {ratio_units} (Normal) Range: 0.0-3.6 HDL Cholesterol 57 mg/dL (Normal) Comments: According to ATP-III Guidelines, HDL-C >59 mg/dL is considered anegative risk factor for CHD. VLDL Cholesterol Ezequiel 24 mg/dL (Normal) Range: 5-40 Cholesterol, Total 178 mg/dL (Normal) Range: 100-199 Triglycerides 120 mg/dL (Normal) Range: 0-149 :48 CBC WITH MANUAL DIFF Comments: PATIENT WAS FASTINGPERFORMED BY: [facility] Bogtre0544 [facility] [id number] Information: [id number] (96431) Immature Grans (Abs) 0.0 {x10E3/uL} (Normal) Range: 0.0-0.1 Immature Granulocytes 0 % (Normal) Range: 0-2 Baso (Absolute) 0.1 {x10E3/uL} (Normal) Range: 0.0-0.2 Eos (Absolute) 0.2 {x10E3/uL} (Normal) Range: 0.0-0.4 Monocytes(Absolute) 0.6 {x10E3/uL} (Normal) Range: 0.1-1.0 Lymphs (Absolute) 1.9 {x10E3/uL} (Normal) Range: 0.7-4.5 Neutrophils (Absolute) 4.3 {x10E3/uL} (Normal) Range: 1.8-7.8 Basos 1 % (Normal) Range: 0-3 Eos 3 % (Normal) Range: 0-7 Monocytes 9 % (Normal) Range: 4-13 Lymphs 27 % (Normal) Range: 14-46 Neutrophils 60 % (Normal) Range: 40-74 Platelets 237 {x10E3/uL} (Normal) Range: 140-415 RDW 14.3 % (Normal) Range: 12.3-15.4 MCH 26.6 pg (Normal) Range: 26.6-33.0 MCHC 32.7 g/dL (Normal) Range: 31.5-35.7 MCV 82 fL (Normal) Range: 79-97 Hematocrit 42.2 % (Normal) Range: 37.5-51.0 Hemoglobin 13.8 g/dL (Normal) Range: 12.6-17.7 RBC 5.18 {x10E6/uL} (Normal) Range: 4.14-5.80 WBC 7.0 {x10E3/uL} (Normal) Range: 4.0-10.5 :46 HgA1C , Office (89290) HgA1C , Office 6.1 % (Normal) Range: 4.6 - 7.1 :46 Blood Glucose , Office (12056) Blood Glucose , Office 91 (Normal) [id number]:25 HEPATOBILLIARY IMG W/PHARM INT Radiology Report See Note (Normal) Comments: CLINICAL:66-year-old male with history of right upper quadrant abdominal pain. RADIONUCLIDE HEPATOBILIARY SCINTIGRAPHY COMPARISON:Gallbladder ultrasound report 12/18/11 FINDINGS:Following the intravenou s administration of 5.1 mCi of Tc Mebrofenin,hepatobiliary images reveal: 1. Relatively prompt and homogeneous radiopharmaceutical concentrationisnoted by a normal sized liver. No parenchymal defects are identified.2. Gallbladder activity is identified at 15 minutes postradiopharmaceutical administration.3. Small intestinal tract is observed at 45 minutes postradiopharmaceutical administration.4. Washout of the radiopharmaceutical by the hepatic parenchyma occursina normal fashion on qualitative inspection. Cholecystokinin (0.02 ug/kg) was administered intravenously over [id number] period. The post CCK gallbladder ejection fraction [id number] minutes following Cholecystokinin administration was noted to be 83.6%(normal greater than 35%). During 30 minutes of post CCK imaging, thereisno s cintigraphic evidence of reflux of the radiotracer into the commonhepatic duct or refilling of the gallbladder. There is scintigraphicevidence of post CCK duodenal gastric reflux. IMPRESSION:1. A gall bladder ejection fraction calculated to be greater than 35%following the administration of Cholecystokinin makes the probability offunctional hepatobiliary disease (gallbladder and/or sphincter of Oddi dyskinesia) and/or organic hepatobiliary disease (chronic acalculouscholecystitis and/or cystic duct syndrome) to be low. (Sandy Medina al,Journal of Nuclear Medicine 32:1695, 1990). 2. There is sci ntigraphic evidence of post CCK duodenal-gastric reflux.(Nader, Nucl Med Angelika Corinne Press pg. 35, 1980). Signed:Aamir Richmond M.D.December 24, 2011 at 8:34:10 PM [id number] S igned RB/RB If you are the referring physician and would like to consult with theradiologist who provided this interpretation, please contact Chad Aragon at [phone]. If this radiologist is un available, you will bedirected to another radiologist to assist. If you are a patient with a question regarding this report, pleasecontactyour referring physician directly. Professional Interpretation P rovided By: [employer], Phone , These documents contain legally protected and confidential healthinformation intended only for the use of the individual or entity namedabo ve. If you are not the intended recipient, you are hereby notifiedthatany disclosure, copying, distribution, or other use of these documents isstrictly prohibited. If you have received this information in error,pleasenotify the sender immediately and arrange for the return or destructionofthese documents. Dictated on 12/24/11814 by Aamir Richmond DOTranscribed on 12/24/112116 by ITS IMPORTSign by Aamir Richmond DO on 12/24/112116 Sign by: Aamir Richmond DO [id number]-Cur-99711:56 GALLBLADDER Radiology Report See Note (Normal) Comments: PROCEDURE: ABDOMINAL ULTRASOUND - RIGHT UPPER QUADRANT REASON FOR VISIT: Male, 66 years old. Right upper quadrant pain. TECHNIQUE: Ultrasound evaluation of the right upper quadrant wa sperformed w ith real-time and static lares-scale imaging. TECHNICAL QUALITY: Adequate. COMPARISON: None. FINDINGS: Liver: The liver measures 16.5 cm. There is normal echogenicity of theliver. The bile ducts are within normal limits. There is hepatic colorflow. The direction of portal flow is hepatopetal. There is nodemonstrated mass lesion. Gallbladder: Normal distended gallbladder. The gallbladder w all isthickened and measures 4.5 mm. There is a negative sonographic Arcos'ssign. There is no pericholecystic fluid. Sludge is seen within thegallbladder lumen. Correlation with a nuclear medicine hepatobiliaryscanis recommended. Common Bile Duct (C.B.D.): The common bile duct measures 4.0 mm. Pancreas: Normal size of the head, body of the pancreas. The tailportion is obscured due to overlyi ng bowel gas. There is normalechogenicity of the pancreas. There is no demonstrated pancreatic massorcyst. Right Kidney: Normal size of the right kidney. The right wxnwuzhrukbkbf37.6 cm. Normal rolando al cortex. The right cortex measures 1.8 cm. Thereisno demonstrated renal mass or cyst. There is no right hydronephrosis. IMPRESSION:Sludge in the gallbladder lumen, with a thickened gallbladder wall .Correlation with nuclear medicine hepatobiliary scan is recommended. Signed:Jakob Hunt M.D.December 18, 2011 at 11:00:05 AM [id number] Signed GP/GP If you are the referring physician and would like to consult with theradiologist who provided this interpretation, please contact Chad Lao at [phone]. If this radiologist is unavailable, youwill be directed to another radiologist to assist. If you are a patient with a question regarding this report, pleasecontactyour referring physician directly. Professional Interpretation Provided By: [employer], Phone , These documents contain legally protected and confidential healthinformation intended only for the use of the individual or entity namedabove. If you are not the intende d recipient, you are hereby notifiedthatany disclosure, copying, distribution, or other use of these documents isstrictly prohibited. If you have received this information in error,pleasenotify the send er immediately and arrange for the return or destructionofthese documents. Dictated on 12/18/1140 by Jordy Hutn MDscribed on 12/18/111116 by ITS IMPORTSign by Jakob Hunt MD 12/18/111117 Sign by: Jakob Hunt MD :41 HgA1C , Office (97439) HgA1C , Office 6.2 % (Normal) Range: 4.6 - 7.1 :41 Blood Glucose , Office (80359) Blood Glucose , Office 115 (Normal) :37 HgA1C , Office (59337) HgA1C , Office 6.4 % (Normal) Range: 4.6 - 7.1 :37 Blood Glucose , Office (37498) Blood Glucose , Office 119 (Normal) :44 PSA (PROSTATE SPECIFIC Comments: PATIENT WAS FASTINGPERFORMED BY: uBeam70 [facility] [id number] ANTIGEN) (V76.44) Prostate Specific Ag, 1.7 ng/mL (Normal) Range: 0.0-4.0 Serum Comments: VenuelabsIA methodology. .According to the [place] [employer], Serum PSA shoulddecrease and remain at undetectable levels after radicalprostatectomy. The AUA defines biochemical recurrence as an initialPSA value 0.2 ng/mL or greater followed by a subsequent confirmatoryPSA value 0.2 ng/mL or greater.Values obtained with d ifferent assay methods or kits cannot be usedinterchangeably. Results cannot be interpreted as absolute evidenceof the presence or absence of malignant disease. :44 TSH (45858) Comments: PATIENT WAS FASTINGPERFORMED BY: [facility] [id number] TSH 2.660 {uIU/mL} (Normal) Range: 0.450-4.500 :44 URINALYSIS, W/ MICRO (18356) Comments: PATIENT WAS FASTINGPERFORMED BY: [facility]6370 [facility] [id number] Microscopic Examination See below: (Normal) Microscopic Examination MICRON (Normal) Comments: Microscopic follows if indicated. Nitrite, Urine Negative (Normal) Urobilinogen,Semi-Qn 0.2 mg/dL (Normal) Range: 0.0-1.9 Bilirubin Negative (Normal) Occult Blood Negative (Normal) Ketones Negative (Normal) Glucose Negative (Normal) Protein Negative (Normal) WBC Esterase Negative (Normal) Appearance Clear (Normal) Urine-Color Yellow (Normal) pH 6.0 (Normal) Range: 5.0-7.5 Specific Garner 1.024 (Normal) Range: 1.005-1.030 :44 MICROALBUMIN: CREATININE RATIO Comments: PATIENT WAS FASTINGPERFORMED BY: GUICHO [facility]Re[facility] MexicoXmoake1903 [facility] [id number] (60498) AND (85797) Microalb/Creat Ratio 1.1 {mg/g_creat} (Normal) Range: 0.0-30.0 Microalbumin, Urine 3.2 ug/mL (Normal) Range: 0.0-17.0 Creatinine, Urine 294.1 mg/dL (Normal) Range: 22.0-328.0 :44 Microscopic Examination Comments: PATIENT WAS FASTINGPERFORMED BY: GUICHO [facility]tonRe[facility] Southern New MexicoUevxar8832 [facility] [id number] Bacteria None seen (Normal) Mucus Threads Present (Normal) Epithelial Cells (non renal) None seen {/hpf} (Normal) Range: 0 - 10 RBC 0-3 {/hpf} (Normal) Range: 0 - 3 WBC 0-5 {/hpf} (Normal) Range: 0 - 5 :44 METABOLIC PANEL, COMPREHENSIVE Comments: PATIENT WAS FASTINGPERFORMED BY: [facility]Re[facility] MexicoTawrdl9142 [facility] [id number] (44506) ALT (SGPT) 21 [iU]/L (Normal) Range: 0-55 AST (SGOT) 22 [iU]/L (Normal) Range: 0-40 Alkaline Phosphatase, S 94 [iU]/L (Normal) Range: 25-160 Bilirubin, Total 0.6 mg/dL (Normal) Range: 0.0-1.2 A/G Ratio 1.9 (Normal) Range: 1.1-2.5 Globulin, Total 2.2 g/dL (Normal) Range: 1.5-4.5 Albumin, Serum 4.1 g/dL (Normal) Range: 3.6-4.8 Protein, Total, Serum 6.3 g/dL (Normal) Range: 6.0-8.5 Calcium, Serum 9.4 mg/dL (Normal) Range: 8.6-10.2 Carbon Dioxide, Total 23 mmol/L (Normal) Range: 20-32 Chloride, Serum 103 mmol/L (Normal) Range: 97-108 Potassium, Serum 4.3 mmol/L (Normal) Range: 3.5-5.2 Sodium, Serum 140 mmol/L (Normal) Range: 134-144 BUN/Creatinine Ratio 11 (Normal) Range: 10-22 eGFR If Africn Am 83 mL/min/1.73 (Normal) eGFR If NonAfricn Am 71 mL/min/1.73 (Normal) Creatinine, Serum 1.07 mg/dL (Normal) Range: 0.76-1.27 BUN 12 mg/dL (Normal) Range: 8-27 Glucose, Serum 119 mg/dL (Abnormal) Range: 65-99 :44 LIPID PANEL (37391) Comments: PATIENT WAS FASTINGPERFORMED BY: uBeam70 [facility] [id number] LDL/HDL Ratio 1.2 {ratio_units} (Normal) Range: 0.0-3.6 LDL Cholesterol Calc 63 mg/dL (Normal) Range: 0-99 VLDL Cholesterol Ezequiel 20 mg/dL (Normal) Range: 5-40 HDL Cholesterol 52 mg/dL (Normal) Comments: According to ATP-III Guidelines, HDL-C >59 mg/dL is considered anegative risk factor for CHD. Triglycerides 100 mg/dL (Normal) Range: 0-149 Cholesterol, Total 135 mg/dL (Normal) Range: 100-199 :44 CBC WITH MANUAL DIFF Comments: PATIENT WAS FASTINGPERFORMED BY: uBeam70 [facility] [id number] Information: [id number] (84741) Immature Grans (Abs) 0.0 {x10E3/uL} (Normal) Range: 0.0-0.1 Immature Granulocytes 0 % (Normal) Range: 0-2 Baso (Absolute) 0.0 {x10E3/uL} (Normal) Range: 0.0-0.2 Eos (Absolute) 0.1 {x10E3/uL} (Normal) Range: 0.0-0.4 Monocytes(Absolute) 0.3 {x10E3/uL} (Normal) Range: 0.1-1.0 Lymphs (Absolute) 1.9 {x10E3/uL} (Normal) Range: 0.7-4.5 Neutrophils (Absolute) 3.1 {x10E3/uL} (Normal) Range: 1.8-7.8 Basos 1 % (Normal) Range: 0-3 Eos 3 % (Normal) Range: 0-7 Monocytes 6 % (Normal) Range: 4-13 Lymphs 34 % (Normal) Range: 14-46 Neutrophils 56 % (Normal) Range: 40-74 Platelets 239 {x10E3/uL} (Normal) Range: 140-415 RDW 14.7 % (Normal) Range: 12.3-15.4 Comments: Please note reference interval change MCHC 31.9 g/dL (Normal) Range: 31.5-35.7 Comments: Please note reference interval change MCH 26.5 pg (Abnormal) Range: 26.6-33.0 Comments: Please note reference interval change MCV 83 fL (Normal) Range: 79-97 Comments: Please note reference interval change Hematocrit 41.7 % (Normal) Range: 37.5-51.0 Comments: Please note reference interval change Hemoglobin 13.3 g/dL (Normal) Range: 12.6-17.7 Comments: Please note reference interval change RBC 5.02 {x10E6/uL} (Normal) Range: 4.14-5.80 Comments: Please note reference interval change WBC 5.5 {x10E3/uL} (Normal) Range: 4.0-10.5 :25 HgA1C , Office (63408) HgA1C , Office 6.2 % (Normal) Range: 4.6 - 7.1 :25 Blood Glucose , Office (10503) Blood Glucose , Office 84 (Normal) :56 Blood Glucose , Office (70013) Blood Glucose , Office 96 (Normal) :29 SPINE, LUMBAR (ROUTINE) Radiology Report See Note (Normal) Comments: PROCEDURE: MRI LUMBAR SPINE WITHOUT CONTRAST REASON FOR EXAM: Male, 65 years old. Low back pain radiating to theright side for 3 months. TECHNIQUE: Standardized fat and water weighted pulse seque nces wereobtained in the sagittal and axial planes. COMPARISON: None. FINDINGS:It is presumed that the lower most lumbar type vertebral body representsL5. Slight straightening of the normal lumbar williams dosis with minor L3-4, L4-5and L5-S1 retrolisthesis. There is no substantial scoliosis. Prominent discogenic endplate changes at L3-4 with Modic type I endplateedema and Schmorl's node formation. Angel Luis r Modic chart II discogenicendplate change at L5-S1. Otherwise normal lumbar vertebrae. Normal conus medullaris that terminates at the L1-2 level. T12-L1: Sagittal imaging only. Normal disk height, hy dration andmorphology. No substantial endplate spondylosis or appreciable facetarthrosis. Normal central canal and visualized bilateral intervertebralneural foramina. L1-2 and L2-3: Normal disk height and hydration with minor annularbulgingand endplate spondylosis. Mild bilateral facet arthrosis. Normalcentralcanal, lateral recesses and bilateral intervertebral neural foramina. L3-4: Disk dehydra tion with moderate disk space narrowing.Circumferential annular bulge with broad-based posterior and slightlyrightlateralizing disk herniation of the protrusion type measuring 3 mm in APdimension. Acco mpanying endplate spondylosis with Modic type Idiscogenicendplate edema and Schmorl's nodes along the opposing vertebral bodyendplates. Mild to moderate bilateral facet arthrosis with slightligamentum flavum hypertrophy. Shallow ventral thecal sac contourdeformity with mild right lateral recess encroachment, with otherwisenormal central canal. Mild to moderate right intervertebral neuralforaminal n arrowing with normal left neural foramen. L4-5: Normal disk height and hydration with minor annular bulge. Nosubstantial endplate spondylosis with mild bilateral facet arthrosis.Normal central canal a nd lateral recesses. Normal bilateralintervertebralneural foramina. L5-S1: Disk dehydration with marked disk space narrowing.Circumferentialannular bulge with broad-based posterior and right per than leftintraforaminal disk herniation of the protrusion type with accompanyingendplate spondylosis, with lateralizing disk-spur complexes measuring uptoapproximately 5 mm in AP dimension. Mild to moderate bilateral facetarthrosis. Normal central canal and lateral recesses. Mild to moderatebilateral intervertebral neural foraminal narrowing. Normal visualized paraspinous soft tissue structures. IMPRESS ION:Multilevel degenerative changes of the lumbar spine, with straightenedlumbar lordosis and minor L3-4, L4-5 and L5-S1 retrolisthesis. Annular bulges and/or disk protrusions in conjunction with endpla tespondylosis and mild to moderate facet arthrosis, most pronounced at theL3- 4 and L5-S1 intervertebral disk levels, results in mild to moderateintervertebral neural foraminal narrowing on the right at L3-4 andbilaterally at L5-S1. Findings additionally result in mild right L3-4lateral recess encroachment, with otherwise normal central canal. Pleasesee level by level details above. Dictated on 1040 by HEATHER FONTENOT MD RTranscribed on 02/23/11 1355 by ITS IMPORTSign by HEATHER FONTENOT MD on 02/23/11 1356 Sign by: HEATHER FONTENOT MD :08 HgA1C , Office (57606) HgA1C , Office 6.3 % (Normal) Range: 4.6 - 7.1 :08 Blood Glucose , Office (28271) Blood Glucose , Office 108 (Normal) :50 URINALYSIS, W/ MICRO (41470) Comments: PATIENT WAS FASTINGPERFORMED BY: [facility]6370 [facility] [id number] Microscopic Examination See below: (Normal) Microscopic Examination MICRON (Normal) Comments: Microscopic follows if indicated. Nitrite, Urine Negative (Normal) Urobilinogen,Semi-Qn 0.2 mg/dL (Normal) Range: 0.0-1.9 Bilirubin Negative (Normal) Occult Blood Negative (Normal) Ketones Negative (Normal) Glucose Negative (Normal) Protein Negative (Normal) WBC Esterase Negative (Normal) Appearance Clear (Normal) Urine-Color Yellow (Normal) pH 5.5 (Normal) Range: 5.0-7.5 Specific Garner 1.022 (Normal) Range: 1.005-1.030 :50 MICROALBUMIN: CREATININE RATIO Comments: PATIENT WAS FASTINGPERFORMED BY: [place] Bxehno5712 [facility] [id number] ([id number]) AND (45548) Microalb/Creat Ratio <.6 {mg/g_creat} (Normal) Range: 0.0-30.0 Creatinine, Urine 163.1 mg/dL (Normal) Range: 22.0-328.0 Microalbumin, Urine <1.0 ug/mL (Normal) Range: 0.0-17.0 Comments: Verified by repeat analysis 29-Nov-20108:50 METABOLIC PANEL, COMPREHENSIVE Comments: PATIENT WAS FASTINGPERFORMED BY: Halton Iorvrm8281 [facility] [id number] ([id number]) ALT (SGPT) 16 [iU]/L (Normal) Range: 0-55 AST (SGOT) 15 [iU]/L (Normal) Range: 0-40 Alkaline Phosphatase, S 94 [iU]/L (Normal) Range: 25-160 Bilirubin, Total 0.4 mg/dL (Normal) Range: 0.0-1.2 A/G Ratio 2.0 (Normal) Range: 1.1-2.5 Globulin, Total 2.1 g/dL (Normal) Range: 1.5-4.5 Albumin, Serum 4.2 g/dL (Normal) Range: 3.6-4.8 Protein, Total, Serum 6.3 g/dL (Normal) Range: 6.0-8.5 Calcium, Serum 9.0 mg/dL (Normal) Range: 8.6-10.2 Carbon Dioxide, Total 26 mmol/L (Normal) Range: 20-32 Chloride, Serum 103 mmol/L (Normal) Range: 97-108 Potassium, Serum 4.5 mmol/L (Normal) Range: 3.5-5.2 Sodium, Serum 141 mmol/L (Normal) Range: 135-145 BUN/Creatinine Ratio 16 (Normal) Range: 10-22 eGFR If Africn Am 85 mL/min/1.73 (Normal) Comments: Note: A persistent eGFR <60 mL/min/1.73 m2 (3 months or more) mayindicate chronic kidney disease. An eGFR >59 mL/min/1.73 m2 with anelevated urine protein also may indicate chronic kidney disease.Calculated using CKD-EPI formula. eGFR If NonAfricn Am 74 mL/min/1.73 (Normal) Creatinine, Serum 1.04 mg/dL (Normal) Range: 0.76-1.27 BUN 17 mg/dL (Normal) Range: 8-27 Glucose, Serum 104 mg/dL (Abnormal) Range: 65-99 :50 LIPID PANEL (08506) Comments: PATIENT WAS FASTINGPERFORMED BY: uBeam70 [facility] [id number] LDL Cholesterol Calc 68 mg/dL (Normal) Range: 0-99 LDL/HDL Ratio 1.5 {ratio_units} (Normal) Range: 0.0-3.6 HDL Cholesterol 46 mg/dL (Normal) Comments: According to ATP-III Guidelines, HDL-C >59 mg/dL is considered anegative risk factor for CHD. VLDL Cholesterol Ezequiel 23 mg/dL (Normal) Range: 5-40 Triglycerides 115 mg/dL (Normal) Range: 0-149 Cholesterol, Total 137 mg/dL (Normal) Range: 100-199 :50 CBC WITH MANUAL DIFF Comments: PATIENT WAS FASTINGPERFORMED BY: [facility]6370 [facility] [id number] Information: [id number] ([id number]) Immature Grans (Abs) 0.0 {x10E3/uL} (Normal) Range: 0.0-0.1 Immature Granulocytes 0 % (Normal) Range: 0-2 Comments: Please note reference interval change Baso (Absolute) 0.0 {x10E3/uL} (Normal) Range: 0.0-0.2 Eos (Absolute) 0.2 {x10E3/uL} (Normal) Range: 0.0-0.4 Monocytes(Absolute) 0.5 {x10E3/uL} (Normal) Range: 0.1-1.0 Lymphs (Absolute) 1.8 {x10E3/uL} (Normal) Range: 0.7-4.5 Neutrophils (Absolute) 3.1 {x10E3/uL} (Normal) Range: 1.8-7.8 Basos 1 % (Normal) Range: 0-3 Eos 3 % (Normal) Range: 0-7 Monocytes 9 % (Normal) Range: 4-13 Lymphs 32 % (Normal) Range: 14-46 Neutrophils 55 % (Normal) Range: 40-74 Platelets 235 {x10E3/uL} (Normal) Range: 140-415 RDW 13.9 % (Normal) Range: 11.7-15.0 MCHC 32.1 g/dL (Normal) Range: 32.0-36.0 MCH 27.1 pg (Normal) Range: 27.0-34.0 MCV 84 fL (Normal) Range: 80-98 Hematocrit 41.1 % (Normal) Range: 36.0-50.0 Hemoglobin 13.2 g/dL (Normal) Range: 12.5-17.0 RBC 4.87 {x10E6/uL} (Normal) Range: 4.10-5.60 WBC 5.7 {x10E3/uL} (Normal) Range: 4.0-10.5 :50 Microscopic Examination Comments: PATIENT WAS FASTINGPERFORMED BY: uBeam70 [facility] [id number] Bacteria Few (Normal) Mucus Threads Present (Normal) Epithelial Cells (non renal) None seen {/hpf} (Normal) Range: 0 - 10 RBC None seen {/hpf} (Normal) Range: 0 - 3 WBC 0-5 {/hpf} (Normal) Range: 0 - 5 :58 HgA1C , Office (46970) HgA1C , Office 6.0 % (Normal) Range: 4.6 - 7.1 :58 Blood Glucose , Office (09035) Blood Glucose , Office 93 (Normal) 58-Jgb-519170:13 PSA (PROSTATE SPECIFIC Comments: PATIENT NOT FASTINGPERFORMED BY: LabWundrbar Qjginl8480 [facility] [id number] Information: [id number] ANTIGEN) (V76.44) Prostate Specific Ag, 1.5 ng/mL (Normal) Range: 0.0-4.0 Serum Comments: Dee ECLIA methodology. .According to the [place] [employer], Serum PSA shoulddecrease and remain at undetectable levels after radicalprostatectomy. The AUA defines biochemical recurrence as an initialPSA value 0.2 ng/mL or greater followed by a subsequent confirmatoryPSA value 0.2 ng/mL or greater.Values obtained with d ifferent assay methods or kits cannot be usedinterchangeably. Results cannot be interpreted as absolute evidenceof the presence or absence of malignant disease. :16 HgA1C , Office (46539) HgA1C , Office 6.2 % (Normal) Range: 4.6 - 7.1 :16 Blood Glucose , Office (41921) Blood Glucose , Office 196 (Normal) :15 TSH (19094) Comments: PATIENT WAS FASTINGPERFORMED BY: [facility] [id number] TSH 3.200 {uIU/mL} (Normal) Range: 0.450-4.500 7-Zri-857433:15 MICROALBUMIN: CREATININE RATIO Comments: PATIENT WAS FASTINGPERFORMED BY: uBeam70 [facility] [id number] ([id number]) AND (52510) Creatinine, Urine 168.7 mg/dL (Normal) Range: 22.0-328.0 Microalb/Creat Ratio 1.5 {mg/g_creat} (Normal) Range: 0.0-30.0 Microalbumin, Urine 2.5 ug/mL (Normal) Range: 0.0-17.0 :15 METABOLIC PANEL, COMPREHENSIVE Comments: PATIENT WAS FASTINGPERFORMED BY: uBeam70 [facility] [id number] (85692) A/G Ratio 1.8 (Normal) Range: 1.1-2.5 Alkaline Phosphatase, S 96 [iU]/L (Normal) Range: 25-160 ALT (SGPT) 19 [iU]/L (Normal) Range: 0-55 AST (SGOT) 19 [iU]/L (Normal) Range: 0-40 Bilirubin, Total 0.4 mg/dL (Normal) Range: 0.0-1.2 Albumin, Serum 4.1 g/dL (Normal) Range: 3.6-4.8 Calcium, Serum 9.5 mg/dL (Normal) Range: 8.6-10.2 Carbon Dioxide, Total 26 mmol/L (Normal) Range: 20-32 Globulin, Total 2.3 g/dL (Normal) Range: 1.5-4.5 Protein, Total, Serum 6.4 g/dL (Normal) Range: 6.0-8.5 BUN/Creatinine Ratio 11 (Normal) Range: 10-22 Chloride, Serum 101 mmol/L (Normal) Range: 97-108 Potassium, Serum 4.4 mmol/L (Normal) Range: 3.5-5.2 Sodium, Serum 137 mmol/L (Normal) Range: 135-145 BUN 12 mg/dL (Normal) Range: 8-27 Creatinine, Serum 1.05 mg/dL (Normal) Range: 0.76-1.27 eGFR >59 mL/min/1.73 (Normal) eGFR AfricanAmerican >59 mL/min/1.73 Comments: Note: Persistent reduction for 3 months or more in an eGFR<60 mL/min/1.73 m2 defines CKD. Patients with eGFR values>/=60 mL/min/1.73 m2 may also have CKD if evidence of persistentproteinuria is (Normal) present. Additional information may be found [email or web address]. Glucose, Serum 108 mg/dL (Abnormal) Range: 65-99 6-Lih-783120:15 LIPID PANEL (53923) Comments: PATIENT WAS FASTINGPERFORMED BY: uBeam70 [facility] [id number] LDL/HDL Ratio 1.8 {ratio_units} (Normal) Range: 0.0-3.6 HDL Cholesterol 49 mg/dL (Normal) Comments: According to ATP-III Guidelines, HDL-C >59 mg/dL is considered anegative risk factor for CHD. LDL Cholesterol Calc 86 mg/dL (Normal) Range: 0-99 VLDL Cholesterol Ezequiel 25 mg/dL (Normal) Range: 5-40 Cholesterol, Total 160 mg/dL (Normal) Range: 100-199 Triglycerides 123 mg/dL (Normal) Range: 0-149 0-Ohz-692195:15 CBC WITH MANUAL DIFF Comments: PATIENT WAS FASTINGPERFORMED BY: uBeam70 [facility] [id number] Information: [id number] (35981) Immature Grans (Abs) 0.0 {x10E3/uL} (Normal) Range: 0.0-0.1 Immature Granulocytes 0 % (Normal) Range: 0-1 Baso (Absolute) 0.0 {x10E3/uL} (Normal) Range: 0.0-0.2 Eos (Absolute) 0.1 {x10E3/uL} (Normal) Range: 0.0-0.4 Lymphs (Absolute) 1.6 {x10E3/uL} (Normal) Range: 0.7-4.5 Monocytes(Absolute) 0.4 {x10E3/uL} (Normal) Range: 0.1-1.0 Neutrophils (Absolute) 2.8 {x10E3/uL} (Normal) Range: 1.8-7.8 Basos 1 % (Normal) Range: 0-3 Eos 3 % (Normal) Range: 0-7 Lymphs 32 % (Normal) Range: 14-46 Monocytes 9 % (Normal) Range: 4-13 Neutrophils 55 % (Normal) Range: 40-74 MCH 26.9 pg (Abnormal) Range: 27.0-34.0 MCHC 32.8 g/dL (Normal) Range: 32.0-36.0 Platelets 226 {x10E3/uL} (Normal) Range: 140-415 RDW 14.1 % (Normal) Range: 11.7-15.0 MCV 82 fL (Normal) Range: 80-98 Hematocrit 40.8 % (Normal) Range: 36.0-50.0 Hemoglobin 13.4 g/dL (Normal) Range: 12.5-17.0 RBC 4.98 {x10E6/uL} (Normal) Range: 4.10-5.60 WBC 5.0 {x10E3/uL} (Normal) Range: 4.0-10.5 :53 HgA1C , Office (59930) HgA1C , Office 6.3 % (Normal) Range: 4.6 - 7.1 :53 Blood Glucose , Office (79008) Blood Glucose , Office 123 (Normal) :51 HgA1C , Office (06691) HgA1C , Office 6.2 % (Normal) Range: 4.6 - 7.1 :51 Blood Glucose , Office (85098) Blood Glucose , Office 93 (Normal) 65-Huc-621906:01 Microscopic Examination Comments: PATIENT WAS FASTINGPERFORMED BY: Halton Ingbze1760 [facility] [id number] Bacteria Few (Normal) Mucus Threads Present (Normal) Epithelial Cells (non renal) None seen {/hpf} (Normal) Range: 0 - 10 RBC 0-3 {/hpf} (Normal) Range: 0 - 3 WBC 0-5 {/hpf} (Normal) Range: 0 - 5 :01 PSA (PROSTATE SPECIFIC Comments: PATIENT WAS FASTINGPERFORMED BY: Halton Zbefyb3870 [facility] [id number] ANTIGEN) (V76.44) Prostate Specific Ag, 1.4 ng/mL (Normal) Range: 0.0-4.0 Serum Comments: RobArt ECLIA methodology..According to the [place] [employer], Serum PSA shoulddecrease and remain at undetectable levels after radicalprostatectomy. The AUA defines biochemical recurrence a s an initialPSA value 0.2 ng/mL or greater followed by a subsequent confirmatoryPSA value 0.2 ng/mL or greater.Values obtained with different assay methods or kits cannot be usedinterchangeably. Results cannot be interpreted as absolute evidenceof the presence or absence of malignant disease. :01 TSH (73093) Comments: PATIENT WAS FASTINGPERFORMED BY: Halton Ormwbs5648 [facility] [id number] TSH 3.670 {uIU/mL} (Normal) Range: 0.450-4.500 20-Zhf-212224:01 URINALYSIS, W/ MICRO (85937) Comments: PATIENT WAS FASTINGPERFORMED BY: Halton Fyhixq3396 [facility] [id number] Microscopic Examination See below: (Normal) Bilirubin Negative (Normal) Microscopic Examination MICRON (Normal) Comments: Microscopic follows if indicated. Nitrite, Urine Negative (Normal) Urobilinogen,Semi-Qn 0.2 mg/dL (Normal) Range: 0.0-1.9 Glucose Negative (Normal) Ketones Negative (Normal) Occult Blood Negative (Normal) Protein Negative (Normal) WBC Esterase Negative (Normal) Appearance Clear (Normal) pH 6.0 (Normal) Range: 5.0-7.5 Specific Garner 1.024 (Normal) Range: 1.005-1.030 Urine-Color Yellow (Normal) :01 MICROALBUMIN: CREATININE RATIO Comments: PATIENT WAS FASTINGPERFORMED BY: [facility]6370 [facility] [id number] ([id number]) AND (24005) Microalb/Creat Ratio <.4 {mg/g_creat} (Normal) Range: 0.0-30.0 Microalbumin, Urine <1.0 ug/mL (Normal) Range: 0.0-17.0 Creatinine, Urine 226.9 mg/dL (Normal) Range: 22.0-328.0 :01 METABOLIC PANEL, COMPREHENSIVE Comments: PATIENT WAS FASTINGPERFORMED BY: uBeam70 [facility] [id number] (92821) A/G Ratio 2.0 (Normal) Range: 1.1-2.5 Alkaline Phosphatase, S 82 [iU]/L (Normal) Range: 25-160 ALT (SGPT) 18 [iU]/L (Normal) Range: 0-55 AST (SGOT) 19 [iU]/L (Normal) Range: 0-40 Bilirubin, Total 0.5 mg/dL (Normal) Range: 0.0-1.2 Globulin, Total 2.2 g/dL (Normal) Range: 1.5-4.5 Albumin, Serum 4.3 g/dL (Normal) Range: 3.6-4.8 Protein, Total, Serum 6.5 g/dL (Normal) Range: 6.0-8.5 Calcium, Serum 9.1 mg/dL (Normal) Range: 8.6-10.2 Carbon Dioxide, Total 25 mmol/L (Normal) Range: 20-32 Chloride, Serum 102 mmol/L (Normal) Range: 97-108 Potassium, Serum 4.3 mmol/L (Normal) Range: 3.5-5.2 BUN/Creatinine Ratio 15 (Normal) Range: 8-27 Sodium, Serum 140 mmol/L (Normal) Range: 135-145 Creatinine, Serum 1.03 mg/dL (Normal) Range: 0.76-1.27 eGFR >59 mL/min/1.73 (Normal) eGFR AfricanAmerican >59 mL/min/1.73 Comments: Note: Persistent reduction for 3 months or more in an eGFR<60 mL/min/1.73 m2 defines CKD. Patients with eGFR values>/=60 mL/min/1.73 m2 may also have CKD if evidence of persistentproteinuria is (Normal) present. Additional information may be found [email or web address]. BUN 15 mg/dL (Normal) Range: 5-26 Glucose, Serum 93 mg/dL (Normal) Range: 65-99 52-Nks-022980:01 LIPID PANEL (11392) Comments: PATIENT WAS FASTINGPERFORMED BY: [facility] [id number] HDL Cholesterol 46 mg/dL (Normal) Comments: According to ATP-III Guidelines, HDL-C >59 mg/dL is considered anegative risk factor for CHD. LDL Cholesterol Calc 70 mg/dL (Normal) Range: 0-99 LDL/HDL Ratio 1.5 {ratio_units} (Normal) Range: 0.0-3.6 VLDL Cholesterol Ezequiel 18 mg/dL (Normal) Range: 5-40 Cholesterol, Total 134 mg/dL (Normal) Range: 100-199 Triglycerides 89 mg/dL (Normal) Range: 0-149 62-Wvz-478363:01 CBC WITH MANUAL DIFF Comments: PATIENT WAS FASTINGPERFORMED BY: [employer] LabCoKunlun70 [facility] [id number] Information: [id number] ([id number]) Baso (Absolute) 0.0 {x10E3/uL} (Normal) Range: 0.0-0.2 Eos (Absolute) 0.2 {x10E3/uL} (Normal) Range: 0.0-0.4 Monocytes(Absolute) 0.4 {x10E3/uL} (Normal) Range: 0.1-1.0 Lymphs (Absolute) 1.9 {x10E3/uL} (Normal) Range: 0.7-4.5 Basos 0 % (Normal) Range: 0-3 Neutrophils (Absolute) 3.0 {x10E3/uL} (Normal) Range: 1.8-7.8 Eos 3 % (Normal) Range: 0-7 Lymphs 34 % (Normal) Range: 14-46 Monocytes 8 % (Normal) Range: 4-13 Neutrophils 55 % (Normal) Range: 40-74 MCHC 33.5 g/dL (Normal) Range: 32.0-36.0 Platelets 188 {x10E3/uL} (Normal) Range: 140-415 RDW 14.0 % (Normal) Range: 11.7-15.0 Hematocrit 41.1 % (Normal) Range: 36.0-50.0 Hemoglobin 13.8 g/dL (Normal) Range: 12.5-17.0 MCH 28.6 pg (Normal) Range: 27.0-34.0 MCV 85 fL (Normal) Range: 80-98 RBC 4.81 {x10E6/uL} (Normal) Range: 4.10-5.60 WBC 5.5 {x10E3/uL} (Normal) Range: 4.0-10.5 :59 HgA1C , Office (21275) HgA1C , Office 6.6 % (Normal) Range: 4.6 - 7.1 :59 Blood Glucose , Office (07482) Blood Glucose , Office 105 (Normal) :29 HgA1C , Office (72296) Comments: done km HgA1C , Office 7.2 % (Abnormal) Range: 4.6 - 7.1 :29 Blood Glucose , Office (56317) Comments: done Blood Glucose , Office 134 (Normal) :04 HgA1C , Office (70800) Comments: done km HgA1C , Office 6.7 % (Normal) Range: 4.6 - 7.1 :04 Blood Glucose , Office (07876) Comments: done Blood Glucose , Office 141 (Normal) :27 TSH (54080) Comments: PATIENT WAS FASTINGPERFORMED BY: [facility]CoRe[facility] Southern New MexicoSvjfaz1148 [facility] [id number] TSH 3.740 {uIU/mL} (Normal) Range: 0.450-4.500 :27 METABOLIC PANEL, COMPREHENSIVE Comments: PATIENT WAS FASTINGPERFORMED BY: [facility]CoChilton [facility] HospitalVxfarj7661 [facility] [id number] (68621) A/G Ratio 1.7 (Normal) Range: 1.1-2.5 Albumin, Serum 4.0 g/dL (Normal) Range: 3.6-4.8 Alkaline Phosphatase, S 86 [iU]/L (Normal) Range: 25-160 ALT (SGPT) 16 [iU]/L (Normal) Range: 0-55 AST (SGOT) 15 [iU]/L (Normal) Range: 0-40 Bilirubin, Total 0.4 mg/dL (Normal) Range: 0.1-1.2 BUN 13 mg/dL (Normal) Range: 5-26 BUN/Creatinine Ratio 13 (Normal) Range: 8-27 Calcium, Serum 9.6 mg/dL (Normal) Range: 8.5-10.6 Carbon Dioxide, Total 28 mmol/L (Normal) Range: 20-32 Chloride, Serum 105 mmol/L (Normal) Range: 97-108 Creatinine, Serum 1.02 mg/dL (Normal) Range: 0.76-1.27 eGFR >59 mL/min/1.73 (Normal) eGFR AfricanAmerican >59 mL/min/1.73 Comments: Note: Persistent reduction for 3 months or more in an eGFR<60 mL/min/1.73 m2 defines CKD. Patients with eGFR values>/=60 mL/min/1.73 m2 may also have CKD if evidence of persistentproteinuria is (Normal) present. Additional information may be found [email or web address]. Globulin, Total 2.4 g/dL (Normal) Range: 1.5-4.5 Glucose, Serum 119 mg/dL (Abnormal) Range: 65-99 Potassium, Serum 4.8 mmol/L (Normal) Range: 3.5-5.2 Protein, Total, Serum 6.4 g/dL (Normal) Range: 6.0-8.5 Sodium, Serum 141 mmol/L (Normal) Range: 135-145 :27 LIPOPROTEIN, BLD, BY NMR (72366) Comments: PATIENT WAS FASTINGClinical Information: ADD [id number], [id number] PERFORMED BY: [facility] Jvbzlu4939 [facility] [id number] Cholesterol, Total 149 mg/dL (Normal) HDL-C 41 mg/dL (Normal) Large HDL-P 8.2 umol/L (Normal) Large VLDL-P 3.0 nmol/L (Normal) LDL Particle Size 20.2 nm (Normal) Comments: . Small (Pattern B) 18.0 - 20.5 Large (Pattern A) 20.6 - 23.0 . LDL-C 85 mg/dL (Normal) Comments: . Optimal < 100 Above optimal 100 - 129 Borderline 1 30 - 159 High 160 - 189 Very high > 189 . LDL-P 1373 nmol/L (Abnormal) Comments: . Optimal < 1000 Above optimal 1000 - 1299 Borderline 13 00 - 1599 High 1600 - 2000 Very high > 2000 . Patient Goals SPRCS (Normal) Comments: High Risk: LDL-P < 1000; Secondary goal: Small LDL-P < 850Moderately High-Risk: LDL-P < 1300; Secondary goal: Small LDL-P < 850 Small LDL-P 1087 nmol/L (Abnormal) Comments: . Low < 600 Moderate 600 - 849 Borderline 8 50 - 1200 High > 1200 . Triglycerides 117 mg/dL (Normal) 25-Oct-20089:27 CBC WITH MANUAL DIFF (04227) Comments: PATIENT WAS FASTINGPERFORMED BY: [facility] Oanupy2227 [facility] [id number] Baso (Absolute) 0.0 {x10E3/uL} (Normal) Range: 0.0-0.2 Basos 1 % (Normal) Range: 0-3 Eos 3 % (Normal) Range: 0-7 Eos (Absolute) 0.1 {x10E3/uL} (Normal) Range: 0.0-0.4 Hematocrit 40.3 % (Normal) Range: 36.0-50.0 Hemoglobin 13.3 g/dL (Normal) Range: 12.5-17.0 Lymphs 30 % (Normal) Range: 14-46 Lymphs (Absolute) 1.4 {x10E3/uL} (Normal) Range: 0.7-4.5 MCH 28.2 pg (Normal) Range: 27.0-34.0 MCHC 33.0 g/dL (Normal) Range: 32.0-36.0 MCV 85 fL (Normal) Range: 80-98 Monocytes 7 % (Normal) Range: 4-13 Monocytes(Absolute) 0.3 {x10E3/uL} (Normal) Range: 0.1-1.0 Neutrophils 59 % (Normal) Range: 40-74 Neutrophils (Absolute) 2.8 {x10E3/uL} (Normal) Range: 1.8-7.8 Platelets 190 {x10E3/uL} (Normal) Range: 140-415 RBC 4.72 {x10E6/uL} (Normal) Range: 4.10-5.60 RDW 14.1 % (Normal) Range: 11.7-15.0 WBC 4.7 {x10E3/uL} (Normal) Range: 4.0-10.5 :55 HgA1C , Office (31418) Comments: done HgA1C , Office 5.9 % (Normal) Range: 4.6 - 7.1 :55 Blood Glucose , Office (51280) Comments: done Blood Glucose , Office 115 (Normal) 35-Hvi-191053:10 TSH (43037) Comments: REpeat first week in September; PATIENT NOT FASTINGClinical Information: ADD DRAW FEE [id number] ADD J 30014 PERFORMED BY: EferioChilton Memorial HospitalOuhboc7573 [facility] [id number] TSH 3.800 {uIU/mL} (Normal) Range: 0.450-4.500 37-Ycn-632245:48 TSH (66240) Comments: PATIENT WAS FASTINGPERFORMED BY: [facility]tonChilton [facility] HospitalStbjpt8629 [facility] [id number] TSH 4.538 {uIU/mL} (Abnormal) Range: 0.450-4.500 35-Sqa-228335:48 MICROALBUMIN: CREATININE RATIO Comments: PATIENT WAS FASTINGPERFORMED BY: [place]tonM[place] 2526170 [facility] [id number] (15489) AND (75659) Creatinine, Urine 370.1 mg/dL (Abnormal) Range: 22.0-328.0 Microalb/Creat Ratio 1.0 {ug/mg_creat} (Normal) Range: 0.0-30.0 Microalbumin, Urine 3.7 ug/mL (Normal) Range: 0.0-17.0 38-Krq-573380:48 METABOLIC PANEL, COMPREHENSIVE Comments: PATIENT WAS FASTINGPERFORMED BY: LabCoChilton Memorial HospitalFvxwcu7638 [facility] [id number] (58688) A/G Ratio 1.6 (Normal) Range: 1.1-2.5 Albumin, Serum 4.1 g/dL (Normal) Range: 3.6-4.8 Alkaline Phosphatase, S 94 [iU]/L (Normal) Range: 25-160 ALT (SGPT) 16 [iU]/L (Normal) Range: 0-55 AST (SGOT) 16 [iU]/L (Normal) Range: 0-40 Bilirubin, Total 0.5 mg/dL (Normal) Range: 0.1-1.2 BUN 13 mg/dL (Normal) Range: 5-26 BUN/Creatinine Ratio 12 (Normal) Range: 8-27 Calcium, Serum 9.2 mg/dL (Normal) Range: 8.5-10.6 Carbon Dioxide, Total 24 mmol/L (Normal) Range: 20-32 Chloride, Serum 105 mmol/L (Normal) Range: 97-108 Creatinine, Serum 1.09 mg/dL (Normal) Range: 0.76-1.27 eGFR >59 mL/min/1.73 (Normal) eGFR AfricanAmerican >59 mL/min/1.73 Comments: Note: Persistent reduction for 3 months or more in an eGFR<60 mL/min/1.73 m2 defines CKD. Patients with eGFR values>/=60 mL/min/1.73 m2 may also have CKD if evidence of persistentproteinuria is (Normal) present. Additional information may be found [email or web address]. Globulin, Total 2.5 g/dL (Normal) Range: 1.5-4.5 Glucose, Serum 114 mg/dL (Abnormal) Range: 65-99 Potassium, Serum 4.5 mmol/L (Normal) Range: 3.5-5.2 Protein, Total, Serum 6.6 g/dL (Normal) Range: 6.0-8.5 Sodium, Serum 140 mmol/L (Normal) Range: 135-145 [id number] CBC WITH MANUAL DIFF ([id number]) Comments: PATIENT WAS FASTINGClinical Information: ADD DRAW FEE [id number] ADD J [id number] PERFORMED BY: GUICHO [employer] [facility] [id number] Baso (Absolute) 0.0 {x10E3/uL} (Normal) Range: 0.0-0.2 Basos 0 % (Normal) Range: 0-3 Eos 2 % (Normal) Range: 0-7 Eos (Absolute) 0.1 {x10E3/uL} (Normal) Range: 0.0-0.4 Hematocrit 43.5 % (Normal) Range: 36.0-50.0 Hemoglobin 14.2 g/dL (Normal) Range: 12.5-17.0 Lymphs 30 % (Normal) Range: 14-46 Lymphs (Absolute) 1.8 {x10E3/uL} (Normal) Range: 0.7-4.5 MCH 27.9 pg (Normal) Range: 27.0-34.0 MCHC 32.7 g/dL (Normal) Range: 32.0-36.0 MCV 85 fL (Normal) Range: 80-98 Monocytes 6 % (Normal) Range: 4-13 Monocytes(Absolute) 0.4 {x10E3/uL} (Normal) Range: 0.1-1.0 Neutrophils 62 % (Normal) Range: 40-74 Neutrophils (Absolute) 3.8 {x10E3/uL} (Normal) Range: 1.8-7.8 Platelets 205 {x10E3/uL} (Normal) Range: 140-415 Comments: Please note reference interval change RBC 5.09 {x10E6/uL} (Normal) Range: 4.10-5.60 RDW 14.4 % (Normal) Range: 11.7-15.0 WBC 6.1 {x10E3/uL} (Normal) Range: 4.0-10.5 [id number]-[id number] LIPID PANEL ([id number]) Comments: PATIENT WAS FASTINGPERFORMED BY: GUIC[facility]Obttjp[facility] [id number] Cholesterol, Total 171 mg/dL (Normal) Range: 100-199 HDL Cholesterol 45 mg/dL (Normal) Comments: According to ATP-III Guidelines, HDL-C >59 mg/dL is considered anegative risk factor for CHD. LDL Cholesterol Calc 99 mg/dL (Normal) Range: 0-99 LDL/HDL Ratio 2.2 {ratio_units} (Normal) Range: 0.0-3.6 Triglycerides 133 mg/dL (Normal) Range: 0-149 VLDL Cholesterol Ezequiel 27 mg/dL (Normal) Range: 5-40 :24 HgA1C , Office (48305) Comments: done HgA1C , Office 6.5 % (Normal) Range: 4.6 - 7.1 :24 Blood Glucose , Office (64969) Comments: done Blood Glucose , Office 113 (Normal) :38 HgA1C , Office (05183) Comments: done HgA1C , Office 6.0 % (Normal) Range: 4.6 - 7.1 :38 Blood Glucose , Office (10185) Comments: done Blood Glucose , Office 132 (Normal) :09 PSA,TOT SCREEN 1.30 ng/mL (Normal) Range: 0.00-4.00 Comments: This test was performed using the TPSA method for the[employer]um[employer] chemistry system.Values obtained with different assay methods cannot be usedinterchangably.When changing PSA assays in the course of monito ring apatient, additional sequential testing should be carriedout to confirm baseline values. :00 HgA1C , Office (87598) Comments: done HgA1C , Office 7.4 % (Abnormal) Range: 4.6 - 7.1 :00 Blood Glucose , Office (32413) Comments: done Blood Glucose , Office 138 (Normal) :32 MYOCARD PERF SPECT REST/STRESS Radiology Report See Note (Normal) Comments: Exam Number: [id number] MYOCARDIAL PERFUSION SCAN TECHNIQUEThe patient was injected with 10 mCi of Tc99m Cardiolite andsubsequently rest SPECT Cardiolite nuclear imaging was obtained in thehorizontal regino g, vertical long, and short axes views. The patientexercised on a Gurmeet protocol for 13 minutes achieving a peak heartrate of 171 beats per minute (109% predicted maximum heart rate) witha peak blood p ressure of 164/90 mmHg and a peak MET capacity of 15METs. The patient was injected with 31 mCi of Tc99m Cardiolite andsubsequently stress SPECT Cardiolite nuclear imaging was obtained inthe horizontal l jolynn, vertical long, and short axes views. GatedCardiolite study at peak stress was obtained. INTERPRETATION Rest SPECT Cardiolite nuclear imaging demonstrates resting diminishedmyocardial perfusion/tra cer uptake in the basal towards midinferiorsegment. Otherwise there appears to be relatively uniform traceruptake. Status post stress there is notation of a similar defect inthe inferior segment altho ugh less prominent as compared to rest. There appears to be end-systolic thickening and brightening and on thegated Cardiolite study myocardial thickening and inward wall motion. The reported LVEF is 60 %. The aforementioned resting changes arenoted on the resting polar map images. Status post stress thereappears to be no obvious deficits on the stress polar map images. Theaforementioned changes star ear compatible with shifting soft tissueattenuation/diaphragmatic attenuation and artifact with no myocardialperfusion changes considered diagnostic for stress-induced myocardialischemia or previous jacobo cardial injury/infarction. IMPRESSION1. Rest and stress SPECT Cardiolite nuclear imaging demonstratemyocardial perfusion changes appearing compatible with shifting softtissue/diaphragmatic attenuatio n and artifact (more prominent at restas opposed to stress) with no myocardial perfusion changes considereddiagnostic for stress-induced myocardial ischemia or previousmyocardial injury/infarction.2 . T he gated Cardiolite study reports an LVEF of 60%. Reported By: LOUIS CASTILLO M.D. [id number] URINALYSIS W/O MICRO ([id number]) Comments: PATIENT WAS FASTINGPERFORMED BY: [facility]ytclg[facility] [id number] Appearance Clear (Normal) Bilirubin Negative (Normal) Glucose Negative (Normal) Ketones Negative (Normal) Microscopic Examination MICRON (Normal) Comments: Microscopic follows if indicated. Nitrite, Urine Negative (Normal) Occult Blood Negative (Normal) pH 7.5 (Normal) Range: 5.0-7.5 Protein Trace (Normal) Specific Garner 1.023 (Normal) Range: 1.005-1.030 Urine-Color Yellow (Normal) Urobilinogen,Semi-Qn 0.2 mg/dL (Normal) Range: 0.0-1.9 WBC Esterase Negative (Normal) :27 TSH ([id number]) Comments: PATIENT WAS FASTINGPERFORMED BY: [facility]6[address] [facility] [id number] TSH 3.505 {uIU/mL} (Normal) Range: 0.350-5.500 Comments: Adult TSH concentrations below 5.5 uIU/mL do not rule out the presence of subclinical hypothyroidism. : MICROALBUMIN URINE QUANT Comments: PATIENT WAS FASTINGPERFORMED BY: [address] [id number] ([id number]) Microalbum.,U,Random 4.4 ug/mL (Normal) Range: 0.0-17.0 : METABOLIC PANEL, COMPREHENSIVE Comments: PATIENT WAS FASTINGPERFORMED BY: H2[employer] TechnologiesJessica [place] [id number] [facility] [id number] ([id number]) A/G Ratio 1.8 (Normal) Range: 1.1-2.5 Albumin, Serum 4.4 g/dL (Normal) Range: 3.6-4.8 Alkaline Phosphatase, S 92 [iU]/L (Normal) Range: 25-160 ALT (SGPT) 22 [iU]/L (Normal) Range: 0-55 AST (SGOT) 18 [iU]/L (Normal) Range: 0-40 Bilirubin, Total 0.5 mg/dL (Normal) Range: 0.1-1.2 BUN 15 mg/dL (Normal) Range: 5-26 BUN/Creatinine Ratio 14 (Normal) Range: 8-27 Calcium, Serum 10.0 mg/dL (Normal) Range: 8.5-10.6 Carbon Dioxide, Total 26 mmol/L (Normal) Range: 20-32 Chloride, Serum 100 mmol/L (Normal) Range: 97-108 Creatinine, Serum 1.10 mg/dL (Normal) Range: 0.50-1.50 Globulin, Total 2.5 g/dL (Normal) Range: 1.5-4.5 Glom Filt Rate, Est >60 mL/min (Normal) Range: 60-137 Glucose, Serum 132 mg/dL (Abnormal) Range: 65-99 If -Hungarian >60 mL/min (Normal) Range: 60-137 Comments: Note: Persistent reduction for 3 months or more in an eGFR<60 mL/min/1.73 m2 defines CKD. Patients with eGFR values>/=60 mL/min/1.73 m2 may also have CKD if evidence of persistentproteinuria is present. .Additional information may be found at [email or web address].org. Potassium, Serum 4.2 mmol/L (Normal) Range: 3.5-5.2 Protein, Total, Serum 6.9 g/dL (Normal) Range: 6.0-8.5 Sodium, Serum 140 mmol/L (Normal) Range: 135-145 [id number] CBC WITH MANUAL DIFF ([id number]) Comments: PATIENT WAS FASTINGClinical Information: ADD [id number], ADD [id number] PERFORMED BY: [facility] [id number] Baso (Absolute) 0.0 {x10E3/uL} (Normal) Range: 0.0-0.2 Basos 0 % (Normal) Range: 0-3 Eos 3 % (Normal) Range: 0-7 Eos (Absolute) 0.2 {x10E3/uL} (Normal) Range: 0.0-0.4 Hematocrit 43.1 % (Normal) Range: 36.0-50.0 Hemoglobin 14.5 g/dL (Normal) Range: 12.5-17.0 Lymphs 32 % (Normal) Range: 14-46 Lymphs (Absolute) 1.8 {x10E3/uL} (Normal) Range: 0.7-4.5 MCH 28.0 pg (Normal) Range: 27.0-34.0 MCHC 33.7 g/dL (Normal) Range: 32.0-36.0 MCV 83 fL (Normal) Range: 80-98 Monocytes 7 % (Normal) Range: 4-13 Monocytes(Absolute) 0.4 {x10E3/uL} (Normal) Range: 0.1-1.0 Neutrophils 58 % (Normal) Range: 40-74 Neutrophils (Absolute) 3.2 {x10E3/uL} (Normal) Range: 1.8-7.8 Platelets 226 {x10E3/uL} (Normal) Range: 140-415 RBC 5.18 {x10E6/uL} (Normal) Range: 4.10-5.60 RDW 14.0 % (Normal) Range: 11.7-15.0 WBC 5.5 {x10E3/uL} (Normal) Range: 4.0-10.5 :27 LIPID PANEL ([id number]) Comments: PATIENT WAS FASTINGPERFORMED BY: [facility] HospitalOdafbc9152 [facility] [id number] LDL/HDL Ratio 2.4 {ratio_units} (Normal) Range: 0.0-3.6 Cholesterol, Total 212 mg/dL (Abnormal) Range: 100-199 Comment SPRCS (Normal) Comments: If initial LDL-cholesterol result is >100 mg/dL, assess forrisk factors. HDL Cholesterol 52 mg/dL (Normal) Range: 40-59 LDL Cholesterol Calc 123 mg/dL (Abnormal) Range: 0-99 Triglycerides 184 mg/dL (Abnormal) Range: 0-149 VLDL Cholesterol Ezequiel 37 mg/dL (Normal) Range: 5-40 :28 HgA1C , Office (97810) Comments: done HgA1C , Office 6.9 % (Normal) Range: 4.6 - 7.1 :28 Blood Glucose , Office (91015) Comments: done Blood Glucose , Office 157 (Normal) :58 HgA1C , Office (69291) Comments: done HgA1C , Office 6.6 % (Normal) Range: 4.6 - 7.1 :58 Blood Glucose , Office (72427) Comments: done Blood Glucose , Office 136 (Normal) :29 CBCD,SMEAR DIFF CELLS COUNTED 100 (Normal) EOS 3 % (Normal) Range: 0-5 HCT 43.3 % (Normal) Range: 40-54 HGB 14.4 g/dL (Normal) Range: 14.0-18.0 LYMPH 31 % (Normal) Range: 19-41 MCH 28.1 pg (Normal) Range: 27.0-32.0 MCHC 33.3 g/dL (Normal) Range: 32-36 MCV 84.5 fL (Normal) Range: 80-94 MONOCYTE 1 % (Normal) Range: 0-10 PLT 231 K/mm3 (Normal) Range: 150-450 PLT EST SeeNote (Normal) Comments: Result: ADEQUATE RBC 5.12 {M/mm3} (Normal) Range: 4.6-6.2 RDW 13.0 % (Normal) Range: 11.6-14.6 RED CELL MORPH SeeNote {NORMAL} (Normal) Comments: Result: NORM C&C SEGS 65 % (Normal) Range: 47-70 WBC 5.0 K/mm3 (Normal) Range: 4.4-11.0 :29 COMP METABOLIC A/G 1.2 {RATIO} (Normal) Range: 0.9-2.4 ALB 3.6 g/dL (Normal) Range: 3.4-5.0 ALK P 103 U/L (Normal) Range: 50-136 ALT 38 [iU]/L (Normal) Range: 30-65 AST 16 U/L (Normal) Range: 15-37 BUN 13 mg/dL (Normal) Range: 7-18 BUN/CRE 10.8 {RATIO} (Normal) Range: 10-20 CA 8.9 mg/dL (Normal) Range: 8.5-10.1 CL 98 mmol/L (Normal) Range: 98-107 CO2 31.0 mmol/L (Normal) Range: 21.0-32.0 Comments: Please Note Reference Interval Change CREAT,SERUM 1.2 mg/dL (Normal) Range: 0.8-1.3 GAP 7 (Normal) Range: 5-15 GLOB 3.1 g/dL (Normal) Range: 2.7-4.2 Comments: Please Note Reference Interval Change GLU 137 mg/dL (Abnormal) Range: 70-110 Comments: Fasting Glucose result greater than or equal to 126 mg/dL suggests DIABETES MELLITUS per A.D.A. criteria. K 3.7 mmol/L (Normal) Range: 3.5-5.1 NA 136 mmol/L (Normal) Range: 136-145 T BILI 0.32 mg/dL (Normal) Range: 0.00-1.00 T PROT 6.7 g/dL (Normal) Range: 6.4-8.2 :29 COMPLETE UA BACTERIA 0 SEEN {/hpf} (Normal) BILIRUBIN URINE SeeNote (Normal) Comments: Result: NEGATIVE CLARITY CLEAR (Normal) COLOR YELLOW (Normal) GLUCOSE, UR SeeNote (Normal) Comments: Result: NEGATIVE KETONE UR SeeNote mg/dL (Normal) Comments: Result: NEGATIVE LEUK ESTERASE SeeNote (Normal) Comments: Result: NEGATIVE MUCUS, URINE 2+ {/hpf} (Normal) NITRITE UR SeeNote (Normal) Comments: Result: NEGATIVE OCCULT BLOOD-UR SeeNote (Normal) Comments: Result: NEGATIVE pH UR 6.0 (Normal) Range: 5.0-8.0 PROT DIPSTX SeeNote (Normal) Comments: Result: NEGATIVE RBC-UA 0 SEEN {/hpf} (Normal) Range: 0-5 SP.GR. DIPSTX >=1.030 (Normal) Range: 1.002-1.030 SQUAM EPI 0 SEEN {/hpf} (Normal) Range: 0-5 UROBILI 0.2 EU/dl (Normal) Range: 0.2 - 1.0 WBC 0 SEEN {/hpf} (Normal) Range: 0-5 :29 LIPID CHOL 168 mg/dL (Normal) Comments: <200 mg/dL Desirable 200-240 mg/dL Borderline >240 mg/dL High Risk HDL 40 mg/dL (Normal) Comments: Reference Range HDL <40 mg/dL Low HDL Cholesterol HDL >or= 60 mg/dL High HDL Cholesterol LDL 107 mg/dL (Normal) Range: 0-130 TRIG 106 mg/dL (Normal) Comments: Serum Triglycerides Reference Interval Normal <150 mg/dL Borderline high 150 - 199 mg/dL High 200 - 499 mg/dL Very High > or = 500 mg/dL VLDL 21 mg/dL (Normal) Range: 5-40 :29 MICROALBUMIN,UR 8.3 mg/L (Normal) :29 PSA,TOT SCREEN 1.35 ng/mL (Normal) Range: 0.00-4.00 Comments: This test was performed using the TPSA method for the[employer] chemistry system.Values obtained with different assay methods cannot be usedinterchangably.When changing PSA assays in the course of monito ring apatient, additionaly sequential testing should be carriedout to confirm baseline values. :29 TSH 3.67 {uIU/mL} (Normal) Range: 0.34-4.82 :39 Blood Glucose , Office ([id number]) Comments: done km Blood Glucose , Office 98 (Normal) :39 HgA1C , Office (63386) Comments: done km HgA1C , Office 6.5 % (Normal) Range: 4.6 - 7.1 :57 HgA1C , Office (63839) HgA1C , Office 6.5 % (Normal) Range: 4.6 - 7.1 :57 Blood Glucose , Office (27326) Blood Glucose , Office 138 (Normal) :03 HgA1C , Office (03442) HgA1C , Office 6.6 % (Normal) Range: 4.6 - 7.1 :03 Blood Glucose , Office (29071) Blood Glucose , Office 92 (Normal) [id number] LIVER ALB 3.6 g/dL (Normal) Range: 3.4-5.0 ALK P 96 U/L (Normal) Range: 50-136 ALT 47 [iU]/L (Normal) Range: 30-65 AST 20 U/L (Normal) Range: 15-37 D BILI 0.08 mg/dL (Normal) Range: 0.00-0.30 T BILI 0.44 mg/dL (Normal) Range: 0.00-1.00 T PROT 6.9 g/dL (Normal) Range: 6.4-8.2 :28 MICROALB:CRE UR MALB:CREAT 8.4 {mg/g_CRE} (Normal) MICROALBUMIN,UR 11.6 mg/L (Normal) UR CREAT 138.8 mg/dL (Normal) :28 PFLIP CHOL 188 mg/dL (Normal) Comments: <200 mg/dL Desirable 200-240 mg/dL Borderline >240 mg/dL High Risk HDL 38 mg/dL (Normal) Comments: Reference Range HDL <40 mg/dL Low HDL Cholesterol HDL >or= 60 mg/dL High HDL Cholesterol LDL 118 mg/dL (Normal) Range: 0-130 TRIG 160 mg/dL (Normal) Comments: Serum Triglycerides Reference Interval Normal <150 mg/dL Borderline high 150 - 199 mg/dL High 200 - 499 mg/dL Very High > or = 500 mg/dL VLDL 32 mg/dL (Normal) Range: 5-40 Plan of Care Name Dates Details Instructions Epigastric pain : *Abd Pain Red Flags Indication: Epigastric pain Uncontrolled type II diabetes mellitus : Continue Current Prescription(s) Indication: Uncontrolled type II diabetes mellitus Essential hypertension : Continue Current Prescription(s) Indication: Essential hypertension Controlled diabetes mellitus type II without complication : Follow up in 3 months Indication: Controlled diabetes mellitus type II without complication Hypothyroidism : Reviewed Lab Indication: Hypothyroidism Hypothyroidism : Continue Current Prescription(s) Indication: Hypothyroidism Essential hypertension : HTN/CAD Red Flags Indication: Essential hypertension Essential hypertension : Reviewed Lab Indication: Essential hypertension Hypercholesterolemia : Continue Current Prescription(s) Indication: Hypercholesterolemia Hypercholesterolemia : Cholesterol mgmt Indication: Hypercholesterolemia Controlled diabetes mellitus type II without complication : *Diabetes Education Indication: Controlled diabetes mellitus type II without complication Non-smoker : Eprescribed prescriptions (G8553) Indication: Non-smoker Right hand pain : Follow up if no improvement or if symptoms worsen Indication: Right hand pain BMI 28.0-28.9,adult : Eprescribed prescriptions (G8553) Indication: BMI 28.0-28.9,adult Controlled diabetes mellitus type II without complication : Follow up in 3 months Indication: Controlled diabetes mellitus type II without complication Essential hypertension : Diet, Exercise, and Wt loss Indication: Essential hypertension Essential hypertension : HTN/CAD Red Flags Indication: Essential hypertension Hypercholesterolemia : Cholesterol mgmt Indication: Hypercholesterolemia Controlled diabetes mellitus type II without complication : Eprescribed prescriptions (G8553) Indication: Controlled diabetes mellitus type II without complication AK (actinic keratosis) : Cryotherapy Indication: AK (actinic keratosis) Controlled diabetes mellitus type II without complication : Follow up in 3 months Indication: Controlled diabetes mellitus type II without complication GERD (gastroesophageal reflux disease) : GERD Education Indication: GERD (gastroesophageal reflux disease) Hypercholesterolemia : Cholesterol mgmt Indication: Hypercholesterolemia Hypercholesterolemia : *Cholesterol - Nonprescription Treatment Indication: Hypercholesterolemia Essential hypertension : Diet, Exercise, and Wt loss Indication: Essential hypertension Essential hypertension : HTN/CAD Red Flags Indication: Essential hypertension Uncontrolled type II diabetes mellitus : Follow up in 3 months Indication: Uncontrolled type II diabetes mellitus History of transient cerebral ischemia (Renamed from H/O transient cerebral ischemia) : Continue Current Prescription(s) Indication: History of transient cerebral ischemia (Renamed from H/O transient cerebral ischemia) Hypercholesterolemia : Cholesterol mgmt Indication: Hypercholesterolemia Essential hypertension : Diet, Exercise, and Wt loss Indication: Essential hypertension Essential hypertension : HTN/CAD Red Flags Indication: Essential hypertension Hypothyroidism : Continue Current Prescription(s) Indication: Hypothyroidism Hypothyroidism : Reviewed Lab Indication: Hypothyroidism Uncontrolled type II diabetes mellitus : *Diabetes Education Indication: Uncontrolled type II diabetes mellitus GERD (gastroesophageal reflux disease) : GERD Education Indication: GERD (gastroesophageal reflux disease) Memory loss : Follow up - Make appt after diagnostic tests Indication: Memory loss Annual Medicare Physical WITH abnormal findings (Renamed from Encounter for general adult medical examination with abnormal findings) : *Weight Loss Discussion Indication: Annual Medicare Physical WITH abnormal findings (Renamed from Encounter for general adult medical examination with abnormal findings) Annual Medicare Physical WITH abnormal findings (Renamed from Encounter for general adult medical examination with abnormal findings) : advance planning information Indication: Annual Medicare Physical WITH abnormal findings (Renamed from Encounter for general adult medical examination with abnormal findings) Annual Medicare Physical WITH abnormal findings (Renamed from Encounter for general adult medical examination with abnormal findings) : elderly packet given Indication: Annual Medicare Physical WITH abnormal findings (Renamed from Encounter for general adult medical examination with abnormal findings) Annual Medicare Physical WITH abnormal findings (Renamed from Encounter for general adult medical examination with abnormal findings) : fall reduction handout Indication: Annual Medicare Physical WITH abnormal findings (Renamed from Encounter for general adult medical examination with abnormal findings) Encounter for screening for malignant neoplasm of colon (Renamed from Special screening for malignant neoplasms, colon) : *Colon Cancer Screening Indication: Encounter for screening for malignant neoplasm of colon (Renamed from Special screening for malignant neoplasms, colon) Uncontrolled type II diabetes mellitus : Follow up in 3 months Indication: Uncontrolled type II diabetes mellitus GERD (gastroesophageal reflux disease) : GERD Education Indication: GERD (gastroesophageal reflux disease) Essential hypertension : Diet, Exercise, and Wt loss Indication: Essential hypertension Essential hypertension : HTN/CAD Red Flags Indication: Essential hypertension Uncontrolled type II diabetes mellitus : Diabetes and Exercise: Preventing Low Blood Sugar: blood sugar Indication: Uncontrolled type II diabetes mellitus Essential hypertension : Continue Current Prescription(s) Indication: Essential hypertension Essential hypertension : BP MONITORING - SELF Indication: Essential hypertension Uncontrolled type II diabetes mellitus : Follow up in 3 months Indication: Uncontrolled type II diabetes mellitus Essential hypertension : HTN/CAD Red Flags Indication: Essential hypertension Hypercholesterolemia : Cholesterol mgmt Indication: Hypercholesterolemia Uncontrolled type II diabetes mellitus : *Diabetes Education Indication: Uncontrolled type II diabetes mellitus Uncontrolled type II diabetes mellitus : Eprescribed prescriptions (G8553) Indication: Uncontrolled type II diabetes mellitus Uncontrolled type II diabetes mellitus : Diabetes and Exercise: Preventing Low Blood Sugar: blood sugar Indication: Uncontrolled type II diabetes mellitus Controlled diabetes mellitus type II without complication : Follow up in 3 months Indication: Controlled diabetes mellitus type II without complication Controlled diabetes mellitus type II without complication : *Diabetes Education Indication: Controlled diabetes mellitus type II without complication GERD (gastroesophageal reflux disease) : GERD Education Indication: GERD (gastroesophageal reflux disease) Hypercholesterolemia : Cholesterol mgmt Indication: Hypercholesterolemia Essential hypertension : Diet, Exercise, and Wt loss Indication: Essential hypertension Essential hypertension : HTN/CAD Red Flags Indication: Essential hypertension Fall from skis, initial encounter : fu any day next week Indication: Fall from skis, initial encounter Cough : Follow up if no improvement or if symptoms worsen Indication: Cough Flu-like symptoms : Eprescribed prescriptions (G8553) Indication: Flu-like symptoms Controlled diabetes mellitus type II without complication : Follow up in 3 months Indication: Controlled diabetes mellitus type II without complication Controlled diabetes mellitus type II without complication : Reviewed Lab Indication: Controlled diabetes mellitus type II without complication Adult hypothyroidism : Reviewed Lab Indication: Adult hypothyroidism Essential hypertension : Diet, Exercise, and Wt loss Indication: Essential hypertension Essential hypertension : HTN/CAD Red Flags Indication: Essential hypertension Hypercholesterolemia : Cholesterol mgmt Indication: Hypercholesterolemia Controlled diabetes mellitus type II without complication : Diabetes and Exercise: Preventing Low Blood Sugar: blood sugar Indication: Controlled diabetes mellitus type II without complication Controlled diabetes mellitus type II without complication : Follow up in 3 months Indication: Controlled diabetes mellitus type II without complication Hypercholesterolemia : Cholesterol mgmt Indication: Hypercholesterolemia Essential hypertension : Reviewed Lab Indication: Essential hypertension Controlled diabetes mellitus type II without complication : Eprescribed prescriptions (G8553) Indication: Controlled diabetes mellitus type II without complication Essential hypertension : HTN/CAD Red Flags Indication: Essential hypertension Controlled diabetes mellitus type II without complication : Follow up in 3 months- with kf per kf Indication: Controlled diabetes mellitus type II without complication Hypercholesterolemia : Cholesterol mgmt Indication: Hypercholesterolemia Controlled diabetes mellitus type II without complication : *Diabetes Education Indication: Controlled diabetes mellitus type II without complication GERD (gastroesophageal reflux disease) : Eprescribed prescriptions (G8553) Indication: GERD (gastroesophageal reflux disease) Body aches : Eprescribed prescriptions (G8553) Indication: Body aches Body aches : Flu (Influenza) *: upper respiratory infection Indication: Body aches Uncontrolled type II diabetes mellitus : Follow up in 3 months Indication: Uncontrolled type II diabetes mellitus Essential hypertension : HTN/CAD Red Flags Indication: Essential hypertension Hypothyroidism : Continue Current Prescription(s) Indication: Hypothyroidism Hypercholesterolemia : Reviewed Lab Indication: Hypercholesterolemia Uncontrolled type II diabetes mellitus : Eprescribed prescriptions (G8553) Indication: Uncontrolled type II diabetes mellitus Uncontrolled type II diabetes mellitus : Diabetes and Exercise: Preventing Low Blood Sugar: blood sugar Indication: Uncontrolled type II diabetes mellitus Physical exam WITHOUT abnormal findings (Renamed from Encounter for routine adult health examination without abnormal findings) : Follow up in 1 month- gen med / will need [facility] Indication: Physical exam WITHOUT abnormal findings (Renamed from Encounter for routine adult health examination without abnormal findings) Physical exam WITHOUT abnormal findings (Renamed from Encounter for routine adult health examination without abnormal findings) : fall reduction handout Indication: Physical exam WITHOUT abnormal findings (Renamed from Encounter for routine adult health examination without abnormal findings) Physical exam WITHOUT abnormal findings (Renamed from Encounter for routine adult health examination without abnormal findings) : elderly packet given Indication: Physical exam WITHOUT abnormal findings (Renamed from Encounter for routine adult health examination without abnormal findings) Physical exam WITHOUT abnormal findings (Renamed from Encounter for routine adult health examination without abnormal findings) : advance planning information Indication: Physical exam WITHOUT abnormal findings (Renamed from Encounter for routine adult health examination without abnormal findings) Physical exam WITHOUT abnormal findings (Renamed from Encounter for routine adult health examination without abnormal findings) : Eprescribed prescriptions (G8553) Indication: Physical exam WITHOUT abnormal findings (Renamed from Encounter for routine adult health examination without abnormal findings) Controlled diabetes mellitus type II without complication : Follow up in 2 months- medicare physcial Indication: Controlled diabetes mellitus type II without complication Controlled diabetes mellitus type II without complication : Follow up in 3 months- gen med Indication: Controlled diabetes mellitus type II without complication Heart disease, hypertensive, malignant, without heart failure : Continue Current Prescription(s) Indication: Heart disease, hypertensive, malignant, without heart failure Heart disease, hypertensive, malignant, without heart failure : HTN/CAD Red Flags Indication: Heart disease, hypertensive, malignant, without heart failure Controlled diabetes mellitus type II without complication : Eprescribed prescriptions ([id number]) Indication: Controlled diabetes mellitus type II without complication Heart disease, hypertensive, malignant, without heart failure : BP MONITORING - SELF Indication: Heart disease, hypertensive, malignant, without heart failure Controlled diabetes mellitus type II without complication : Follow up in 3 months Indication: Controlled diabetes mellitus type II without complication Heart disease, hypertensive, malignant, without heart failure : Continue Current Prescription(s) Indication: Heart disease, hypertensive, malignant, without heart failure Controlled diabetes mellitus type II without complication : *Diabetes Education Indication: Controlled diabetes mellitus type II without complication GERD (gastroesophageal reflux disease) : GERD Education Indication: GERD (gastroesophageal reflux disease) Heart disease, hypertensive, malignant, without heart failure : HTN/CAD Red Flags Indication: Heart disease, hypertensive, malignant, without heart failure Hypercholesterolemia : Cholesterol mgmt Indication: Hypercholesterolemia Hypothyroidism : Continue Current Prescription(s) Indication: Hypothyroidism Hypothyroidism : Reviewed Lab Indication: Hypothyroidism Heart disease, hypertensive, malignant, without heart failure : HTN/CAD Red Flags Indication: Heart disease, hypertensive, malignant, without heart failure Heart disease, hypertensive, malignant, without heart failure : Continue Current Prescription(s) Indication: Heart disease, hypertensive, malignant, without heart failure Heart disease, hypertensive, malignant, without heart failure : Continue Current Prescription(s) Indication: Heart disease, hypertensive, malignant, without heart failure Uncontrolled type II diabetes mellitus : Follow up in 3 months Indication: Uncontrolled type II diabetes mellitus Hypercholesterolemia : Cholesterol mgmt Indication: Hypercholesterolemia Hypothyroidism : Continue Current Prescription(s) Indication: Hypothyroidism Uncontrolled type II diabetes mellitus : Reviewed Lab Indication: Uncontrolled type II diabetes mellitus Heart disease, hypertensive, malignant, without heart failure : Reviewed Lab Indication: Heart disease, hypertensive, malignant, without heart failure Uncontrolled type II diabetes mellitus : Eprescribed prescriptions ([id number]) Indication: Uncontrolled type II diabetes mellitus Uncontrolled type II diabetes mellitus : Diabetes and Exercise: Preventing Low Blood Sugar: blood sugar Indication: Uncontrolled type II diabetes mellitus Flu-like symptoms : Follow up if no improvement or if symptoms worsen Indication: Flu-like symptoms Hypothyroidism : Continue Current Prescription(s) Indication: Hypothyroidism Uncontrolled type II diabetes mellitus : Eprescribed prescriptions ([id number]) Indication: Uncontrolled type II diabetes mellitus Uncontrolled type II diabetes mellitus : Follow up 10 days on 21 days Indication: Uncontrolled type II diabetes mellitus Uncontrolled type II diabetes mellitus : Follow up in 3 months Indication: Uncontrolled type II diabetes mellitus Encounter for Medicare annual wellness exam : *Weight Loss Discussion Indication: Encounter for Medicare annual wellness exam Encounter for Medicare annual wellness exam : advance planning information Indication: Encounter for Medicare annual wellness exam Encounter for Medicare annual wellness exam : elderly packet given Indication: Encounter for Medicare annual wellness exam Encounter for Medicare annual wellness exam : fall reduction handout Indication: Encounter for Medicare annual wellness exam GERD (gastroesophageal reflux disease) : GERD Education Indication: GERD (gastroesophageal reflux disease) Hypercholesterolemia : Cholesterol mgmt Indication: Hypercholesterolemia Heart disease, hypertensive, malignant, without heart failure : HTN/CAD Red Flags Indication: Heart disease, hypertensive, malignant, without heart failure Uncontrolled type II diabetes mellitus : Diabetes and Exercise: Preventing Low Blood Sugar: blood sugar Indication: Uncontrolled type II diabetes mellitus Heart disease, hypertensive, malignant, without heart failure : Eprescribed prescriptions ([id number]) Indication: Heart disease, hypertensive, malignant, without heart failure Uncontrolled type II diabetes mellitus : Follow up in 3 months Indication: Uncontrolled type II diabetes mellitus Uncontrolled type II diabetes mellitus : GERD Education Indication: Uncontrolled type II diabetes mellitus Heart disease, hypertensive, malignant, without heart failure : HTN/CAD Red Flags Indication: Heart disease, hypertensive, malignant, without heart failure Heart disease, hypertensive, malignant, without heart failure : Diet, Exercise, and Wt loss Indication: Heart disease, hypertensive, malignant, without heart failure Hypercholesterolemia : Cholesterol mgmt Indication: Hypercholesterolemia Uncontrolled type II diabetes mellitus : Eprescribed prescriptions ([id number]) Indication: Uncontrolled type II diabetes mellitus Uncontrolled type II diabetes mellitus : Diabetes and Exercise: Preventing Low Blood Sugar: blood sugar Indication: Uncontrolled type II diabetes mellitus Uncontrolled type II diabetes mellitus : Follow up in 3 months Indication: Uncontrolled type II diabetes mellitus Uncontrolled type II diabetes mellitus : HTN/CAD Red Flags Indication: Uncontrolled type II diabetes mellitus Uncontrolled type II diabetes mellitus : Diet, Exercise, and Wt loss Indication: Uncontrolled type II diabetes mellitus Uncontrolled type II diabetes mellitus : *Diabetes Education Indication: Uncontrolled type II diabetes mellitus Hypercholesterolemia : Cholesterol mgmt Indication: Hypercholesterolemia GERD (gastroesophageal reflux disease) : GERD Education Indication: GERD (gastroesophageal reflux disease) Uncontrolled type II diabetes mellitus : Diabetes and Exercise: Preventing Low Blood Sugar: blood sugar Indication: Uncontrolled type II diabetes mellitus Heart disease, hypertensive, malignant, without heart failure : Continue Current Prescription(s) Indication: Heart disease, hypertensive, malignant, without heart failure Uncontrolled type II diabetes mellitus : Follow up in 3 months Indication: Uncontrolled type II diabetes mellitus Hypothyroidism : Continue Current Prescription(s) Indication: Hypothyroidism Hypercholesterolemia : Cholesterol mgmt Indication: Hypercholesterolemia Uncontrolled type II diabetes mellitus : *Diabetes Education Indication: Uncontrolled type II diabetes mellitus Heart disease, hypertensive, malignant, without heart failure : HTN/CAD Red Flags Indication: Heart disease, hypertensive, malignant, without heart failure Uncontrolled type II diabetes mellitus : Diabetes Mellitus: Type 2 *: diabetes Indication: Uncontrolled type II diabetes mellitus Heart disease, hypertensive, malignant, without heart failure : HTN/CAD Red Flags Indication: Heart disease, hypertensive, malignant, without heart failure Hypothyroidism : Reviewed Lab Indication: Hypothyroidism Hypercholesterolemia : Cholesterol mgmt Indication: Hypercholesterolemia Controlled diabetes mellitus type II without complication : Follow up in 3 months Indication: Controlled diabetes mellitus type II without complication Controlled diabetes mellitus type II without complication : Diabetes Overview (Living with Diabetes): hypoglycemia Indication: Controlled diabetes mellitus type II without complication Controlled diabetes mellitus type II without complication : Follow up in 3 months Indication: Controlled diabetes mellitus type II without complication Heart disease, hypertensive, malignant, without heart failure : HTN/CAD Red Flags Indication: Heart disease, hypertensive, malignant, without heart failure Controlled diabetes mellitus type II without complication : Diabetes Mellitus: Type 2 *: high blood glucose Indication: Controlled diabetes mellitus type II without complication Heart disease, hypertensive, malignant, without heart failure : Continue Current Prescription(s) Indication: Heart disease, hypertensive, malignant, without heart failure Heart disease, hypertensive, malignant, without heart failure : HTN/CAD Red Flags Indication: Heart disease, hypertensive, malignant, without heart failure History of transient cerebral ischemia (Renamed from H/O transient cerebral ischemia) : 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 Indication: History of transient cerebral ischemia (Renamed from H/O transient cerebral ischemia) Hypertensive urgency : 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 Indication: Hypertensive urgency Heart disease, hypertensive, malignant, without heart failure : Continue Current Prescription(s) Indication: Heart disease, hypertensive, malignant, without heart failure Heart disease, hypertensive, malignant, without heart failure : Follow up in 1 month Indication: Heart disease, hypertensive, malignant, without heart failure Heart disease, hypertensive, malignant, without heart failure : BP MONITORING - SELF Indication: Heart disease, hypertensive, malignant, without heart failure Heart disease, hypertensive, malignant, without heart failure : Diet, Exercise, and Wt loss Indication: Heart disease, hypertensive, malignant, without heart failure Heart disease, hypertensive, malignant, without heart failure : HTN/CAD Red Flags Indication: Heart disease, hypertensive, malignant, without heart failure Heart disease, hypertensive, malignant, without heart failure : HTN/CAD Red Flags Indication: Heart disease, hypertensive, malignant, without heart failure Heart disease, hypertensive, malignant, without heart failure : Diet, Exercise, and Wt loss Indication: Heart disease, hypertensive, malignant, without heart failure Hypercholesterolemia : Cholesterol mgmt Indication: Hypercholesterolemia Hypothyroidism : Continue Current Prescription(s) Indication: Hypothyroidism Controlled diabetes mellitus type II without complication : Follow up in 3 months Indication: Controlled diabetes mellitus type II without complication Controlled diabetes mellitus type II without complication : Diabetes Overview (Living with Diabetes): diabetes type 2 Indication: Controlled diabetes mellitus type II without complication Controlled diabetes mellitus type II without complication : Follow up in 3 months Indication: Controlled diabetes mellitus type II without complication Controlled diabetes mellitus type II without complication : Follow up in 3 months Indication: Controlled diabetes mellitus type II without complication Hypercholesterolemia : Cholesterol mgmt Indication: Hypercholesterolemia Heart disease, hypertensive, malignant, without heart failure : Diet, Exercise, and Wt loss Indication: Heart disease, hypertensive, malignant, without heart failure Heart disease, hypertensive, malignant, without heart failure : HTN/CAD Red Flags Indication: Heart disease, hypertensive, malignant, without heart failure Hypothyroidism : Continue Current Prescription(s) Indication: Hypothyroidism GERD (gastroesophageal reflux disease) : GERD Education Indication: GERD (gastroesophageal reflux disease) Controlled diabetes mellitus type II without complication : Diabetes Mellitus: Type 2 *: diabetes type 2 Indication: Controlled diabetes mellitus type II without complication Abdominal pain, acute, right upper quadrant : Abdominal Pain: abdominal pain Indication: Abdominal pain, acute, right upper quadrant Hypothyroidism : Continue Current Prescription(s) Indication: Hypothyroidism Controlled diabetes mellitus type II without complication : Follow up in 3 months Indication: Controlled diabetes mellitus type II without complication Controlled diabetes mellitus type II without complication : *Cholesterol - Nonprescription Treatment Indication: Controlled diabetes mellitus type II without complication Controlled diabetes mellitus type II without complication : Cholesterol mgmt Indication: Controlled diabetes mellitus type II without complication Heart disease, hypertensive, malignant, without heart failure : Diet, Exercise, and Wt loss Indication: Heart disease, hypertensive, malignant, without heart failure Heart disease, hypertensive, malignant, without heart failure : HTN/CAD Red Flags Indication: Heart disease, hypertensive, malignant, without heart failure Controlled diabetes mellitus type II without complication : Diabetes Overview (Living with Diabetes): high blood glucose Indication: Controlled diabetes mellitus type II without complication Abdominal pain, acute, right upper quadrant : Abdominal Pain: abdominal pain Indication: Abdominal pain, acute, right upper quadrant Controlled diabetes mellitus type II without complication : Follow up in 3 months Indication: Controlled diabetes mellitus type II without complication Hypercholesterolemia : *Cholesterol - Nonprescription Treatment Indication: Hypercholesterolemia Hypercholesterolemia : Cholesterol mgmt Indication: Hypercholesterolemia Heart disease, hypertensive, malignant, without heart failure : Reviewed Lab Indication: Heart disease, hypertensive, malignant, without heart failure Hypothyroidism : Reviewed Lab Indication: Hypothyroidism Heart disease, hypertensive, malignant, without heart failure : HTN/CAD Red Flags Indication: Heart disease, hypertensive, malignant, without heart failure Controlled diabetes mellitus type II without complication : Diet, Exercise, and Wt loss Indication: Controlled diabetes mellitus type II without complication Controlled diabetes mellitus type II without complication : *Diabetes Education Indication: Controlled diabetes mellitus type II without complication Controlled diabetes mellitus type II without complication : Diabetes and Exercise: Preventing Low Blood Sugar: exercise Indication: Controlled diabetes mellitus type II without complication Controlled diabetes mellitus type II without complication : Follow up in 3 months Indication: Controlled diabetes mellitus type II without complication Heart disease, hypertensive, malignant, without heart failure : HTN/CAD Red Flags Indication: Heart disease, hypertensive, malignant, without heart failure Hypercholesterolemia : *Cholesterol - Nonprescription Treatment Indication: Hypercholesterolemia Hypercholesterolemia : Cholesterol mgmt Indication: Hypercholesterolemia Controlled diabetes mellitus type II without complication : Diet, Exercise, and Wt loss Indication: Controlled diabetes mellitus type II without complication Controlled diabetes mellitus type II without complication : *Diabetes Education Indication: Controlled diabetes mellitus type II without complication Controlled diabetes mellitus type II without complication : Follow up in 3 months Indication: Controlled diabetes mellitus type II without complication Heart disease, hypertensive, malignant, without heart failure : Diet, Exercise, and Wt loss Indication: Heart disease, hypertensive, malignant, without heart failure Heart disease, hypertensive, malignant, without heart failure : HTN/CAD Red Flags Indication: Heart disease, hypertensive, malignant, without heart failure Hypercholesterolemia : *Cholesterol - Nonprescription Treatment Indication: Hypercholesterolemia Hypercholesterolemia : Cholesterol mgmt Indication: Hypercholesterolemia Hypothyroidism : Continue Current Prescription(s) Indication: Hypothyroidism Controlled diabetes mellitus type II without complication : *Diabetes Education Indication: Controlled diabetes mellitus type II without complication Controlled diabetes mellitus type II without complication : Diet, Exercise, and Wt loss Indication: Controlled diabetes mellitus type II without complication Displacement of lumbar intervertebral disc without myelopathy : Reviewed Diagnostic Tests Indication: Displacement of lumbar intervertebral disc without myelopathy Dizziness and giddiness : Follow up - Make appt after diagnostic tests Indication: Dizziness and giddiness Dizziness and giddiness : *Vertigo Education Indication: Dizziness and giddiness Occlusion and stenosis of unspecified carotid artery : Reviewed Diagnostic Tests Indication: Occlusion and stenosis of unspecified carotid artery Controlled diabetes mellitus type II without complication : Follow up in 3 months Indication: Controlled diabetes mellitus type II without complication Hypercholesterolemia : *Cholesterol - Nonprescription Treatment Indication: Hypercholesterolemia Hypercholesterolemia : Cholesterol mgmt Indication: Hypercholesterolemia Hypothyroidism : Reviewed Lab Indication: Hypothyroidism Heart disease, hypertensive, malignant, without heart failure : Continue Current Prescription(s) Indication: Heart disease, hypertensive, malignant, without heart failure Heart disease, hypertensive, malignant, without heart failure : HTN/CAD Red Flags Indication: Heart disease, hypertensive, malignant, without heart failure Heart disease, hypertensive, malignant, without heart failure : Diet, Exercise, and Wt loss Indication: Heart disease, hypertensive, malignant, without heart failure Controlled diabetes mellitus type II without complication : Diet, Exercise, and Wt loss Indication: Controlled diabetes mellitus type II without complication Controlled diabetes mellitus type II without complication : *Diabetes Education Indication: Controlled diabetes mellitus type II without complication Hypothyroidism : Continue Current Prescription(s) Indication: Hypothyroidism Controlled diabetes mellitus type II without complication : FOLLOW UP IN 3 MONTHS Indication: Controlled diabetes mellitus type II without complication GERD (gastroesophageal reflux disease) : GERD Education Indication: GERD (gastroesophageal reflux disease) Hypercholesterolemia : CHOLESTEROL MGMT. Indication: Hypercholesterolemia Hypercholesterolemia : *Cholesterol - Nonprescription Treatment Indication: Hypercholesterolemia Heart disease, hypertensive, malignant, without heart failure : HTN/CAD Red Flags Indication: Heart disease, hypertensive, malignant, without heart failure Heart disease, hypertensive, malignant, without heart failure : Diet, Exercise, and Wt loss Indication: Heart disease, hypertensive, malignant, without heart failure Controlled diabetes mellitus type II without complication : *Diabetes Education Indication: Controlled diabetes mellitus type II without complication Controlled diabetes mellitus type II without complication : Diet, Exercise, and Wt loss Indication: Controlled diabetes mellitus type II without complication Controlled diabetes mellitus type II without complication : FOLLOW UP IN 3 MONTHS Indication: Controlled diabetes mellitus type II without complication Hypercholesterolemia : *Cholesterol - Nonprescription Treatment Indication: Hypercholesterolemia Hypercholesterolemia : CHOLESTEROL MGMT. Indication: Hypercholesterolemia GERD (gastroesophageal reflux disease) : GERD Education Indication: GERD (gastroesophageal reflux disease) Hypothyroidism : Continue Current Prescription(s) Indication: Hypothyroidism Heart disease, hypertensive, malignant, without heart failure : Diet, Exercise, and Wt loss Indication: Heart disease, hypertensive, malignant, without heart failure Heart disease, hypertensive, malignant, without heart failure : HTN/CAD Red Flags Indication: Heart disease, hypertensive, malignant, without heart failure Controlled diabetes mellitus type II without complication : Diet, Exercise, and Wt loss Indication: Controlled diabetes mellitus type II without complication Controlled diabetes mellitus type II without complication : *Diabetes Education Indication: Controlled diabetes mellitus type II without complication Other specified viral infection, in conditions classified elsewhere and of unspecified site : *URI Symptoms Indication: Other specified viral infection, in conditions classified elsewhere and of unspecified site Other specified viral infection, in conditions classified elsewhere and of unspecified site : *URI Treatment Indication: Other specified viral infection, in conditions classified elsewhere and of unspecified site Hypothyroidism : Continue Current Prescription(s) Indication: Hypothyroidism GERD (gastroesophageal reflux disease) : GERD Education Indication: GERD (gastroesophageal reflux disease) Heart disease, hypertensive, malignant, without heart failure : Diet, Exercise, and Wt loss Indication: Heart disease, hypertensive, malignant, without heart failure Heart disease, hypertensive, malignant, without heart failure : HTN/CAD Red Flags Indication: Heart disease, hypertensive, malignant, without heart failure Hypercholesterolemia : CHOLESTEROL MGMT. Indication: Hypercholesterolemia Hypercholesterolemia : *Cholesterol - Nonprescription Treatment Indication: Hypercholesterolemia Hypercholesterolemia : *Cholesterol - Medication Side Effects Indication: Hypercholesterolemia Controlled diabetes mellitus type II without complication : FOLLOW UP IN 3 MONTHS Indication: Controlled diabetes mellitus type II without complication Controlled diabetes mellitus type II without complication : Diet, Exercise, and Wt loss Indication: Controlled diabetes mellitus type II without complication Controlled diabetes mellitus type II without complication : *Diabetes Education Indication: Controlled diabetes mellitus type II without complication Controlled diabetes mellitus type II without complication : FOLLOW UP IN 3 MONTHS Indication: Controlled diabetes mellitus type II without complication Heart disease, hypertensive, malignant, without heart failure : Diet, Exercise, and Wt loss Indication: Heart disease, hypertensive, malignant, without heart failure Heart disease, hypertensive, malignant, without heart failure : HTN/CAD Red Flags Indication: Heart disease, hypertensive, malignant, without heart failure Hypothyroidism : Continue Current Prescription(s) Indication: Hypothyroidism Hypercholesterolemia : CHOLESTEROL MGMT. Indication: Hypercholesterolemia Hypercholesterolemia : *Cholesterol - Nonprescription Treatment Indication: Hypercholesterolemia Hypercholesterolemia : *Cholesterol - Medication Side Effects Indication: Hypercholesterolemia Controlled diabetes mellitus type II without complication : Diet, Exercise, and Wt loss Indication: Controlled diabetes mellitus type II without complication Controlled diabetes mellitus type II without complication : *Diabetes Education Indication: Controlled diabetes mellitus type II without complication Uncontrolled type II diabetes mellitus : FOLLOW UP IN 3 MONTHS Indication: Uncontrolled type II diabetes mellitus Hypothyroidism : Continue Current Prescription(s) Indication: Hypothyroidism GERD (gastroesophageal reflux disease) : GERD Education Indication: GERD (gastroesophageal reflux disease) Hypercholesterolemia : CHOLESTEROL MGMT. Indication: Hypercholesterolemia Hypercholesterolemia : *Cholesterol - Nonprescription Treatment Indication: Hypercholesterolemia Hypercholesterolemia : *Cholesterol - Medication Side Effects Indication: Hypercholesterolemia Heart disease, hypertensive, malignant, without heart failure : Diet, Exercise, and Wt loss Indication: Heart disease, hypertensive, malignant, without heart failure Heart disease, hypertensive, malignant, without heart failure : HTN/CAD Red Flags Indication: Heart disease, hypertensive, malignant, without heart failure Uncontrolled type II diabetes mellitus : Diet, Exercise, and Wt loss Indication: Uncontrolled type II diabetes mellitus Uncontrolled type II diabetes mellitus : *Diabetes Education Indication: Uncontrolled type II diabetes mellitus GERD (gastroesophageal reflux disease) : GERD Education Indication: GERD (gastroesophageal reflux disease) Heart disease, hypertensive, malignant, without heart failure : HTN/CAD Red Flags Indication: Heart disease, hypertensive, malignant, without heart failure Hypercholesterolemia : CHOLESTEROL MGMT. 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 Indication: Hypercholesterolemia Hypercholesterolemia : Cholesterol - Medication Side Effects Indication: Hypercholesterolemia Hypercholesterolemia : Cholesterol - Nonprescription Treatment Indication: Hypercholesterolemia GERD (gastroesophageal reflux disease) : GERD Education Indication: GERD (gastroesophageal reflux disease) Heart disease, hypertensive, malignant, without heart failure : Continue Current Prescription(s) Indication: Heart disease, hypertensive, malignant, without heart failure Hypothyroidism : Continue Current Prescription(s) Indication: Hypothyroidism Controlled diabetes mellitus type II without complication : FOLLOW UP IN 3 MONTHS Indication: Controlled diabetes mellitus type II without complication GERD (gastroesophageal reflux disease) : GERD Education Indication: GERD (gastroesophageal reflux disease) Controlled diabetes mellitus type II without complication : *Diabetes Education Indication: Controlled diabetes mellitus type II without complication Heart disease, hypertensive, malignant, without heart failure : Diet, Exercise, and Wt loss Indication: Heart disease, hypertensive, malignant, without heart failure Heart disease, hypertensive, malignant, without heart failure : HTN/CAD Red Flags Indication: Heart disease, hypertensive, malignant, without heart failure Abnormal blood chemistry : FOLLOW UP IN 2 MONTHS Indication: Abnormal blood chemistry GERD (gastroesophageal reflux disease) : GERD Education Indication: GERD (gastroesophageal reflux disease) Hypercholesterolemia : CHOLESTEROL MGMT. Indication: Hypercholesterolemia Hypercholesterolemia : Cholesterol - Nonprescription Treatment Indication: Hypercholesterolemia Hypercholesterolemia : Cholesterol - Medication Side Effects Indication: Hypercholesterolemia Controlled diabetes mellitus type II without complication : *Diabetes Education Indication: Controlled diabetes mellitus type II without complication Heart disease, hypertensive, malignant, without heart failure : Diet, Exercise, and Wt loss Indication: Heart disease, hypertensive, malignant, without heart failure Heart disease, hypertensive, malignant, without heart failure : HTN/CAD Red Flags Indication: Heart disease, hypertensive, malignant, without heart failure Controlled diabetes mellitus type II without complication : *Diabetes Education Indication: Controlled diabetes mellitus type II without complication Controlled diabetes mellitus type II without complication : FOLLOW UP IN 3 MONTHS Indication: Controlled diabetes mellitus type II without complication GERD (gastroesophageal reflux disease) : GERD Education Indication: GERD (gastroesophageal reflux disease) Hypercholesterolemia : Cholesterol - Nonprescription Treatment Indication: Hypercholesterolemia Hypercholesterolemia : CHOLESTEROL MGMT. 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 Neoplasm of uncertain behavior of skin : Skin Biopsy Home Instructions Indication: Neoplasm of uncertain behavior of skin Neoplasm of uncertain behavior of skin : Skin Infection - Signs and Symptoms Indication: Neoplasm of uncertain behavior of skin Neoplasm of uncertain behavior of skin : Shave Biopsy with Epi Indication: Neoplasm of uncertain behavior of skin Heart disease, hypertensive, malignant, without heart failure : Diet, Exercise, and Wt loss Indication: Heart disease, hypertensive, malignant, without heart failure Heart disease, hypertensive, malignant, without heart failure : HTN/CAD Red Flags Indication: Heart disease, hypertensive, malignant, without heart failure Uncontrolled type II diabetes mellitus : *Diabetes Education Indication: Uncontrolled type II diabetes mellitus Hypercholesterolemia : Cholesterol - Nonprescription Treatment Indication: Hypercholesterolemia Hypercholesterolemia : CHOLESTEROL MGMT. Indication: Hypercholesterolemia Hypercholesterolemia : Cholesterol - Medication Side Effects Indication: Hypercholesterolemia Heart disease, hypertensive, malignant, without heart failure : Continue Current Prescription(s) Indication: Heart disease, hypertensive, malignant, without heart failure Hypercholesterolemia : CHOLESTEROL MGMT. Indication: Hypercholesterolemia Hypercholesterolemia : Cholesterol - Nonprescription Treatment Indication: Hypercholesterolemia Hypercholesterolemia : Cholesterol - Medication Side Effects Indication: Hypercholesterolemia Uncontrolled type II diabetes mellitus : FOLLOW UP IN 3 MONTHS Indication: Uncontrolled type II diabetes mellitus Uncontrolled type II diabetes mellitus : *Diabetes Education Indication: Uncontrolled type II diabetes mellitus Diet, Exercise, and Wt loss HTN/CAD Red Flags GERD (gastroesophageal reflux disease) : GERD Education Indication: GERD (gastroesophageal reflux disease) Hypercholesterolemia : Cholesterol - Nonprescription Treatment Indication: Hypercholesterolemia Hypercholesterolemia : CHOLESTEROL MGMT. Indication: Hypercholesterolemia Hypercholesterolemia : Cholesterol - Medication Side Effects Indication: Hypercholesterolemia Diet, Exercise, and Wt loss *Diabetes Education GERD (gastroesophageal reflux disease) : GERD Education Indication: GERD (gastroesophageal reflux disease) Hypercholesterolemia : CHOLESTEROL MGMT. Indication: Hypercholesterolemia Hypercholesterolemia : Cholesterol - Nonprescription Treatment Indication: Hypercholesterolemia Hypercholesterolemia : Cholesterol - Medication Side Effects Indication: Hypercholesterolemia Diet, Exercise, and Wt loss Hypercholesterolemia : CHOLESTEROL MGMT. Indication: Hypercholesterolemia Hypercholesterolemia : Cholesterol - Medication Side Effects Indication: Hypercholesterolemia Hypercholesterolemia : Cholesterol - Nonprescription Treatment Indication: Hypercholesterolemia FOLLOW UP IN 2-3 WEEKS BP MONITORING - SELF HTN/CAD Red Flags Hypercholesterolemia : CHOLESTEROL MGMT. Indication: Hypercholesterolemia Hypercholesterolemia : Cholesterol - Medication Side Effects Indication: Hypercholesterolemia Hypercholesterolemia : Cholesterol - Nonprescription Treatment Indication: Hypercholesterolemia GERD (gastroesophageal reflux disease) : GERD Education Indication: GERD (gastroesophageal reflux disease) GERD (gastroesophageal reflux disease) : GERD Education Indication: GERD (gastroesophageal reflux disease) Hypercholesterolemia : Cholesterol - Nonprescription Treatment Indication: Hypercholesterolemia Hypercholesterolemia : Cholesterol - Medication Side Effects Indication: Hypercholesterolemia Diet and Exercise Hypercholesterolemia : Diet and Exercise and sriram in 6 months Indication: Hypercholesterolemia BP MONITORING - SELF-- pt to call in and i plan from there Planned Observations T4, FREE (THYROXINE) ([id number])Indication: Hypothyroidism On: 12-Nhf-561074:48 Request T3, FREE (TRIDOTHYRONINE) ([id number])Indication: Hypothyroidism On: 27-Sga-602080:48 Request URINALYSIS, W/ MICRO ([id number])Indication: Essential hypertension On: 95-Lef-471284:47 Request MICROALBUMIN: CREATININE RATIO ([id number]) AND ([id number])Indication: Essential hypertension On: 73-Qah-709344:47 Request METABOLIC PANEL, COMPREHENSIVE ([id number])Indication: Essential hypertension On: :47 Request CBC W/AUTO DIFF WBC ([id number])Indication: Essential hypertension On: 67-Zwn-540571:47 Request LIPID PANEL ([id number])Indication: Hypercholesterolemia On: 11-Hri-406834:47 Request TSH ([id number])Indication: Hypothyroidism On: 91-Edo-999049:47 Request CALCIFIDIOL (54049) VIT D 25Indication: Vitamin D deficiency On: 56-Nhl-079182:47 Request Influenza A&B Viral Culture ([id number])Indication: Flu-like symptoms On: 9-Ias-614657:53 Request POTASSIUM SERUM ([id number])Indication: Potassium disorder On: 77-Eea-009616:53 Request CALCIFEDIOL (52946)Indication: Vitamin D deficiency On: :36 Request TSH ([id number])Indication: Hypothyroidism On: 11-Fni-45557:35 Request Lipid Panel (84297)Indication: Hypercholesterolemia On: :34 Request Metabolic Panel, Comprehensive (04781)Indication: Hypercholesterolemia On: :34 Request URINE VMA ([id number])Indication: Hypertensive urgency On: 32-Lvs-691912:54 Request Catecholamines,24-Hour Urine ([id number])Indication: Hypertensive urgency On: 45-Paj-466258:54 Request RENIN ([id number])Indication: Hypertensive urgency On: 04-Pce-022325:54 Request ALDOSTERONE ([id number])Indication: Hypertensive urgency On: 99-Dih-884855:54 Request METANEPHRINES ([id number])Indication: Hypertensive urgency On: 34-Hmz-174803:54 Request CBC (Auto) ([id number])Indication: Hypertensive urgency On: 42-Jmh-854909:36 Request Metabolic Panel, Basic ([id number])Indication: Hypertensive urgency On: 06-Xre-764430:36 Request TSH ([id number])Indication: Hypertensive urgency On: :24 Request CBC WITH MANUAL DIFF ([id number])Indication: Hypertensive urgency On: 80-Oip-156726:24 Request METABOLIC PANEL, COMPREHENSIVE (37752)Indication: Hypertensive urgency On: 54-Vac-821254:24 Request Troponin I (38052)Indication: Hypertensive urgency On: 70-Dej-085753:20 Request CPK MB FRACTION ([id number])Indication: Hypertensive urgency On: 09-Ruk-505834:20 Request CREATINE KINASE TOTAL ([id number])Indication: Hypertensive urgency On: 34-Gyw-628339:20 Request TSH ([id number])Indication: Hypothyroidism On: 94-Kmi-337229:56 Request HgA1C , Office (77151)Indication: Controlled diabetes mellitus type II without complication On: 95-Chf-59008:56 Request PSA (PROSTATE SPECIFIC ANTIGEN) (V76.44)Indication: Screening for prostate cancer On: :20 Request TSH ([id number])Indication: Uncontrolled type II diabetes mellitus On: :19 Request URINALYSIS, W/ MICRO ([id number])Indication: Uncontrolled type II diabetes mellitus On: :19 Request MICROALBUMIN: CREATININE RATIO ([id number]) AND (31050)Indication: Uncontrolled type II diabetes mellitus On: :19 Request METABOLIC PANEL, COMPREHENSIVE ([id number])Indication: Uncontrolled type II diabetes mellitus On: :19 Request LIPOPROTEIN, BLD, BY NMR ([id number])Indication: Uncontrolled type II diabetes mellitus On: :19 Request LIPID PANEL ([id number])Indication: Uncontrolled type II diabetes mellitus On: :19 Request CBC WITH MANUAL DIFF ([id number])Indication: Uncontrolled type II diabetes mellitus On: : Request LIPOPROTEIN, BLD, BY NMR ([id number])Indication: Hypercholesterolemia On: :57 Request LIPID PANEL ([id number])Indication: Hypercholesterolemia On: :57 Request Comments: do in 3 months LIPID PANEL ([id number])Indication: Controlled diabetes mellitus type II without complication On: :22 Request T3, FREE (TRIDOTHYRONINE) ([id number])Indication: Abnormal TSH On: :40 Request T4, FREE (THYROXINE) ([id number])Indication: Abnormal TSH On: :40 Request TSH ([id number])Indication: Abnormal TSH On: :40 Request Comments: do in 2-3 mo TSH ([id number])Indication: Controlled diabetes mellitus type II without complication On: :29 Request METABOLIC PANEL, COMPREHENSIVE ([id number])Indication: Controlled diabetes mellitus type II without complication On: :29 Request MICROALBUMIN: CREATININE RATIO ([id number]) AND ([id number])Indication: Controlled diabetes mellitus type II without complication On: : Request CBC WITH MANUAL DIFF ([id number])Indication: Controlled diabetes mellitus type II without complication On: :29 Request LIPID PANEL ([id number])Indication: Controlled diabetes mellitus type II without complication On: :29 Request PSA (PROSTATE SPECIFIC ANTIGEN) (V76.44)Indication: Uncontrolled type II diabetes mellitus On: :18 Request LIPID PANEL ([id number])Indication: Hypercholesterolemia On: :02 Request HEPATIC FUNCTION PANEL ([id number])Indication: Hypercholesterolemia On: 38-Hse-079520:02 Request TSH ([id number]) On: :45 Request METABOLIC PANEL, COMPREHENSIVE (64139) On: :44 Request LIPID PANEL (40816) On: :44 Request CBC WITH MANUAL DIFF ([id number]) On: :44 Request PSA (PROSTATE SPECIFIC ANTIGEN) (98377) On: :17 Request Comments: screening TSH ([id number]) On: :14 Request URINALYSIS W/O MICRO ([id number]) On: :14 Request MICROALBUMIN URINE QUANT ([id number]) On: :14 Request LIPID PANEL ([id number]) On: :14 Request METABOLIC PANEL, COMPREHENSIVE ([id number]) On: 6-Byh-949199:14 Request CBC WITH MANUAL DIFF ([id number]) On: 1-Cja-554000:14 Request MICROALBUMIN: CREATININE RATIO ([id number]) On: :07 Request AND (40756) METABOLIC PANEL, COMPREHENSIVE ([id number]) On: :07 Request LIPID PANEL (00386) On: :07 Request CBC WITH MANUAL DIFF ([id number]) On: 3-Frp-918954:07 Request Planned Procedures HIDA SCAN WITH CHOLECYSTOKININ On: 03-Apr-2018 Intent (76653)By: Denisa Macias DO, DO, Kathleen ULTRASOUND, ABDOMEN, LIMITED On: 01-Apr-2018 Intent ([id number])By: Denisa Macias DO Comments: needs for pre-op -- this week please Denisa Macias DO EKG ([id number])By: Denisa Macias DO On: 27-Feb-2018 Intent Denisa Macias DO Comments: nsr no acute chg PNEUM VAC ADLT/IMUMNOSPR, SBC/INTRM On: 07-Feb-2018 Intent (23655)By: Denisa Macias DO Comments: 0.5 cc given sq lt arm lot [id number] exp 04/21/19 Denisa Macias DO X-RAY OF RIGHT HAND, ONE OR TWO On: 07-Feb-2018 Intent VIEWS ([id number])By: Denisa Macias DO Comments: attention to hypothenar area for FB Denisa Macias DO TD VACCINE ADULT (74915)By: Venkata, On: 23-Dec-2017 Intent Anne Comments: a105a3/12611.5mlr dltd, IMMLONG Flu Vaccine (Quadrivalent) 66181Dm: On: 28-Nov-2017 Intent Visit, Nurse Comments: Lot #[id number]/30/19Site-L dltd, IMDose prefilled syringegiven by: Genna VARGAS.VIS reviewed and ABN signed X-RAY RIGHT KNEE, 3 VIEWS ([id number])By: On: 31-Jul-2017 Intent Denisa Macias DO, DO, Kathleen Radiology - Knee - Right - Weight On: 31-Jul-2017 Intent BearingBy: Denisa Macias DO, DO, Kathleen ELECTROCARDIOGRAM, COMPLETE (ECG) On: 31-Jul-2017 Intent ([id number])By: Denisa Macias DO Comments: nsr no acute chg Denisa Macias DO CT - Brain/Head (IV Contrast On: 31-Dec-2016 Intent Needed)By: Denisa Macias DO, DO, Kathleen Echo CompleteBy: Denisa Macias DO On: 31-Dec-2016 Intent Denisa Macias DO PDAW-FF-LHOV BEHAVIORAL COUNSELING On: 31-Dec-2016 Intent FOR OBESITY, 15 MINUTES (G0447)By: Denisa Macias DO, DO, Kathleen Flu Vaccine (Quadrivalent) 62226Rz: On: 17-Dec-2016 Intent Denisa Macias DO, DO, Comments: Lot:[id number]:09/09/17Amt:0.5mlRoute:IMSite: L DltdGiven By: YURY Valdez signed Denisa MAGNETIC RESONANCE ANGIOGRAPHY OF On: 3-Dayo-2017 Intent CAROTID AND VERTEBRAL VESSELS (50974)By: Denisa Macias DO, DO, Kathleen ELECTROCARDIOGRAM, COMPLETE (ECG) On: 24-Sep-2016 Intent ([id number])By: Denisa Macias DO Comments: sinus gabby no acute chg- on BB Denisa Macias DO Renal Duplex ScanBy: Colleen GARCIA, On: 24-Sep-2016 Intent Denisa Valladares DO ELECTROCARDIOGRAM, COMPLETE (ECG) On: 10-Sep-2016 Intent (49578)By: Denisa Macias DO Comments: sinus gabby no acute chg Denisa Macias DO CT HEAD OR BRAIN WO CONTRAST On: 21-May-2016 Intent (72196)By: Denisa Macias DO, DO, Kathleen Flu Vaccine (Quadrivalent) 88187Gq: On: 23-Dec-2015 Intent Emeka Levin Comments: FLUlot: [id number]:08/08site:Lt deltoidroute:IMdose:.5mlDEMICK, [place] Echo CompleteBy: Denisa Macias DO On: 24-Oct-[address] SCAN OF CHEST WITH CONTRAST On: 24-Oct-2015 Intent (73791)By: Denisa Macias DO, DO, Kathleen CT - Chest (IV Contrast Needed)By: On: 20-Jun-2015 Intent Denisa Macias DO, DO, Kathleen Echo CompleteBy: Denisa Macias DO On: 21-Feb-2015 Intent Denisa Macias DO Flu Vaccine (Quadrivalent) 29057Jt: On: 05-Jan-2015 Intent Denisa Macias DO, DO, Comments: lot [id number]: 09/22/2015site/route L rafa, IMamt 0.5mlVIS and ABN signed when applicableELIO Oliver4 Denisa ELECTROCARDIOGRAM, COMPLETE (ECG) On: 16-Nov-2014 Intent (53866)By: Denisa Macias DO Comments: nsr no acute changes - Denisa Macias DO Prevnar 13 (63131)By: Colleen GARCIA, On: 10-May-2014 Intent Denisa Macias DO Denisa Comments: Lot:[id number]:08/07Dose:0.5mgRoute:imSite:l armGiven By:MIGUEL ÁNGEL signed Inhaler Demonstration (09040)By: On: 23-Mar-2014 Intent Hayley Stone CNP ADMINISTRATION OF INFLUENZA VIRUS On: 25-Dec-2013 Intent VACCINE (G0008)By: Visit, Nurse Comments: Lot #[id number]-L dltd, IMDose prefilled syringegiven by:YURY Seymour and IRAIS signed FLU VAC, SPLIT, >3 YEARS, INTRAMUSC On: 25-Dec-2013 Intent (49198)By: Visit, Nurse EKG (48756)By: Denisa Macias DO On: 08-Oct-2013 Intent Colleen DO Denisa Comments: nsr no acute chg - same as 2012 and last echo 2012 Radiology - PelvisBy: Colleen DO, On: 09-Jul-2013 Intent Denisa Macias DODenisa Comments: attention R side SI jt Radiology - Hip - RightBy: Colleen On: 09-Jul-2013 Intent , Denisa Colleen DO Denisa EMGBy: Colleen DO, Denisa Colleen On: 03-Apr-2013 Intent Denisa GARCIA Comments: lower extremity Nerve ConductionBy: Colleen DO, On: 03-Apr-2013 Intent Denisa Colleen DO Denisa Comments: lower extremity Eprescribed prescriptions ([id number])By: On: 03-Apr-2013 Intent Anne Edge LPN PNEUM VAC ADLT/IMUMNOSPR, SBC/INTRM On: 19-Dec-2012 Intent ([id number])By: Marge Smith Comments: Lot:[id number]:10/25/13Dose:0.5mgRoute:imSite:r armGiven By:MIGUEL ÁNGEL signed ADMINISTRATION OF PNEUMOCOCCAL On: 19-Dec-2012 Intent VACCINE (G0009)By: Marge Smith FLU VAC, SPLIT, >3 YEARS, INTRAMUSC On: 17-Dec-2012 Intent (52072)By: Anne Edge LPN Comments: Lot:[id number]:6.14Amt:0.5mlRoute:IMSite: L DltdGiven By: ALICIA ValdezVIS signed Eprescribed prescriptions ([id number])By: On: 17-Dec-2012 Intent Anne Edge LPN Eprescribed prescriptions ([id number])By: On: 15-Sep-2012 Intent Anne Edge LPN Renal Artery DopplerBy: Colleen DO, On: 08-Aug-2012 Intent Denisa Colleen DO Denisa MRI - BrainBy: Colleen DO Denisa On: 04-Aug-2012 Intent Colleen DO Denisa CT - Brain/HeadBy: Colleen DO, On: 04-Aug-2012 Intent Denisa Colleen DO, Denisa Echo CompleteBy: Colleen DO, Denisa On: 04-Aug-2012 Intent Colleen DO Denisa Carotid DopplerBy: Colleen DO, On: 04-Aug-2012 Intent Denisa Colleen DO, Denisa EKG ([id number])By: Colleen DO Denisa On: 28-Jul-2012 Intent Colleen DO Denisa Comments: nsr no acute changes Echo CompleteBy: Colleen DO, Denisa On: 21-Mar-2012 Intent Colleen DO, Denisa Echo CompleteBy: Colleen DO, Denisa On: 19-Mar-2012 Intent Colleen DO Denisa Eprescribed prescriptions ([id number])By: On: 13-Mar-2012 Intent Anne Edge LPN Eprescribed prescriptions ([id number])By: On: 31-Dec-2011 Intent Colleen DO, Denisa Colleen DO Denisa Nuclear Medicine - HIDA w/CPKBy: On: 19-Dec-2011 Intent Ciesa COMMERCIAL KITCHEN SERVICE TECHNICIAN, Supriya EKG ([id number])By: Colleen DO Denisa On: 13-Dec-2011 Intent Colleen DO Denisa Comments: nsr no acute chg Ultrasound - GallbladderBy: Colleen On: 29-Nov-2011 Intent DODenisa Colleen DO, Denisa Eprescribed prescriptions ([id number])By: On: 29-Nov-2011 Intent Anne Edge LPN FLU VAC, SPLIT, >3 YEARS, INTRAMUSC On: 27-Nov-2011 Intent (82107)By: Marissa Palomino LPN Comments: Lot #[id number]/30/13Site-left deltoidgiven by: Todd Palomino LPN ADMINISTRATION OF INFLUENZA VIRUS On: 27-Nov-2011 Intent VACCINE (G0008)By: Marissa Palomino LPN MRI - Lumbar Spine (IV Contrast On: 26-Jan-2011 Intent Needed)By: Denisa Macias DO, DO, Kathleen EKG (32137)By: Denisa Macias DO On: 05-Jan-2011 Intent Denisa Macias DO Comments: nsr no acute chg Cartoid DopplerBy: Colleen GARCIA, On: 05-Jan-2011 Intent Denisa Valladares DO EKG (62011)By: Denisa Macias DO On: 06-Dec-2010 Intent Denisa Macias DO Comments: nsr no acute chgn- Bio Z (09060)By: Denisa Macias DO On: 06-Dec-2010 Intent Denisa Macias DO Comments: stabel parameters- no chg in rx IMMUNIZ ADMNIN, 1 VAC, SNGL/COMBO On: 06-Dec-2010 Intent ([id number])By: Denisa Macias DO, DO, Kathleen FLU VAC, SPLIT, >3 YEARS, INTRAMUSC On: 06-Dec-2010 Intent (14829)By: Denisa Macias DO, DO, Kathleen TDAP VACCINE >7 IM (05608)By: Colleen On: 30-Aug-2010 Denisa Izquierdo DO, DO, Kathleen Comments: Lot #[id number]/25/13Site-left deltoidgiven by: Todd Palomino LPN ADMINISTRATION OF INFLUENZA VIRUS On: 27-Dec-2009 Intent VACCINE (G0008)By: Edilia Vasquez LPN FLU VAC, SPLIT, >3 YEARS, INTRAMUSC On: 27-Dec-2009 Intent ([id number])By: Edilia Vasquez LPN Comments: Lot #[id number] 4PExp-07/03Site-L armDose0.5mlgiven by: EKG (50515)By: Denisa Macias DO On: 15-Nov-2009 Intent Denisa Macias DO Comments: nsr no acute changes MRI - Shoulder(s) - LeftBy: Colleen On: 11-May-2009 Intent Denisa GARCIA DO, Kathleen Bio Z (58107)By: Denisa Macias DO On: 25-Oct-2008 Intent Denisa Macias DO Comments: NORMAL SVR AND CO EKG (47592)By: Denisa Macias DO On: 25-Oct-2008 Intent Denisa Macias DO Comments: NSR NO ACUTE CHANGES Bio Z (77822)By: Denisa Macias DO On: 04-Jun-2008 Intent Denisa Macias DO Comments: normal IMMUNIZ ADMNIN, 1 VAC, SNGL/COMBO On: 05-Jan-2008 Intent (68051)By: Denisa Macias DO, DO, Kathleen FLU VAC, SPLIT, >3 YEARS, INTRAMUSC On: 05-Jan-2008 Intent (49731)By: Denisa Macias DO, DO, Kathleen Bio Z ([id number])By: Denisa Macias DO On: 07-Nov-2007 Intent Denisa Macias DO Comments: normal svr and co Nuclear Stress Test/Stress On: 15-Sep-2007 Intent SPECT/TreadmillBy: Colleen GARCIA, Comments: heart group Denisa Valladares DO Echo CompleteBy: Denisa Macias DO On: 07-Aug-2007 Intent Deinsa Macias DO Cartoid DopplerBy: Colleen GARCIA, On: 07-Aug-2007 Intent Denisa Valladares DO EKG ([id number])By: Denisa Macias DO On: 07-Aug-2007 Intent Denisa Macias DO Comments: nsr no acute ischemic changes EKG (75371)By: Denisa Macias DO On: 29-Nov-2006 Intent Denisa Macias DO Comments: nsr no acute ischemic changes EMGBy: Denisa Macias DO On: 04-Nov-2006 Intent Denisa GARCIA Nerve ConductionBy: Colleen GARCIA, On: 04-Nov-2006 Intent Denisa Valladares DO Instructions Name Dates Details Non-smoker : How to access health information online Indication: Non-smoker Non-smoker : How to access health information online - Detail Indication: Non-smoker Non-smoker : Patient Instructions Indication: Non-smoker Non-smoker : How to access health information online Indication: Non-smoker Non-smoker : How to access health information online - Detail Indication: Non-smoker Non-smoker : Patient Instructions Indication: Non-smoker Non-smoker : How to access health information online Indication: Non-smoker Non-smoker : How to access health information online - Detail Indication: Non-smoker Non-smoker : Patient Instructions Indication: Non-smoker BMI 28.0-28.9,adult : How to access health information online Indication: BMI 28.0-28.9,adult BMI 28.0-28.9,adult : How to access health information online - Detail Indication: BMI 28.0-28.9,adult Injury by nail : Patient Instructions Indication: Injury by nail Controlled diabetes mellitus type II without complication : How to access health information online Indication: Controlled diabetes mellitus type II without complication Controlled diabetes mellitus type II without complication : How to access health information online - Detail Indication: Controlled diabetes mellitus type II without complication Controlled diabetes mellitus type II without complication : Patient Instructions Indication: Controlled diabetes mellitus type II without complication Non-smoker : How to access health information online Indication: Non-smoker Non-smoker : How to access health information online - Detail Indication: Non-smoker Non-smoker : Patient Instructions Indication: Non-smoker Non-smoker : How to access health information online Indication: Non-smoker Non-smoker : How to access health information online - Detail Indication: Non-smoker Non-smoker : Patient Instructions Indication: Non-smoker Uncontrolled type II diabetes mellitus : How to access health information online Indication: Uncontrolled type II diabetes mellitus Uncontrolled type II diabetes mellitus : How to access health information online - Detail Indication: Uncontrolled type II diabetes mellitus Uncontrolled type II diabetes mellitus : Patient Instructions Indication: Uncontrolled type II diabetes mellitus Uncontrolled type II diabetes mellitus : obesity counseling Indication: Uncontrolled type II diabetes mellitus Non-smoker : How to access health information online Indication: Non-smoker Non-smoker : How to access health information online - Detail Indication: Non-smoker Non-smoker : Patient Instructions Indication: Non-smoker Uncontrolled type II diabetes mellitus : How to access health information online Indication: Uncontrolled type II diabetes mellitus Uncontrolled type II diabetes mellitus : How to access health information online - Detail Indication: Uncontrolled type II diabetes mellitus Uncontrolled type II diabetes mellitus : Patient Instructions Indication: Uncontrolled type II diabetes mellitus Non-smoker : How to access health information online Indication: Non-smoker Non-smoker : How to access health information online - Detail Indication: Non-smoker Non-smoker : Patient Instructions Indication: Non-smoker Uncontrolled type II diabetes mellitus : How to access health information online Indication: Uncontrolled type II diabetes mellitus Uncontrolled type II diabetes mellitus : How to access health information online - Detail Indication: Uncontrolled type II diabetes mellitus Uncontrolled type II diabetes mellitus : Patient Instructions Indication: Uncontrolled type II diabetes mellitus Non-smoker : How to access health information online Indication: Non-smoker Non-smoker : How to access health information online - Detail Indication: Non-smoker Non-smoker : Patient Instructions Indication: Non-smoker Non-smoker : How to access health information online Indication: Non-smoker Non-smoker : How to access health information online - Detail Indication: Non-smoker Non-smoker : Patient Instructions Indication: Non-smoker Non-smoker : How to access health information online Indication: Non-smoker Non-smoker : How to access health information online - Detail Indication: Non-smoker Non-smoker : Patient Instructions Indication: Non-smoker Flu-like symptoms : How to access health information online Indication: Flu-like symptoms Flu-like symptoms : How to access health information online - Detail Indication: Flu-like symptoms Flu-like symptoms : Patient Instructions Indication: Flu-like symptoms Controlled diabetes mellitus type II without complication : How to access health information online Indication: Controlled diabetes mellitus type II without complication Controlled diabetes mellitus type II without complication : How to access health information online - Detail Indication: Controlled diabetes mellitus type II without complication Controlled diabetes mellitus type II without complication : Patient Instructions Indication: Controlled diabetes mellitus type II without complication Controlled diabetes mellitus type II without complication : How to access health information online Indication: Controlled diabetes mellitus type II without complication Controlled diabetes mellitus type II without complication : Patient Instructions Indication: Controlled diabetes mellitus type II without complication GERD (gastroesophageal reflux disease) : How to access health information online Indication: GERD (gastroesophageal reflux disease) GERD (gastroesophageal reflux disease) : How to access health information online - Detail Indication: GERD (gastroesophageal reflux disease) GERD (gastroesophageal reflux disease) : Patient Instructions Indication: GERD (gastroesophageal reflux disease) Body aches : How to access health information online - Detail Indication: Body aches Body aches : Patient Instructions Indication: Body aches Uncontrolled type II diabetes mellitus : How to access health information online Indication: Uncontrolled type II diabetes mellitus Uncontrolled type II diabetes mellitus : How to access health information online - Detail Indication: Uncontrolled type II diabetes mellitus Uncontrolled type II diabetes mellitus : Patient Instructions Indication: Uncontrolled type II diabetes mellitus Physical exam WITHOUT abnormal findings (Renamed from Encounter for routine adult health examination without abnormal findings) : How to access health information online Indication: Physical exam WITHOUT abnormal findings (Renamed from Encounter for routine adult health examination without abnormal findings) Physical exam WITHOUT abnormal findings (Renamed from Encounter for routine adult health examination without abnormal findings) : How to access health information online - Detail Indication: Physical exam WITHOUT abnormal findings (Renamed from Encounter for routine adult health examination without abnormal findings) Physical exam WITHOUT abnormal findings (Renamed from Encounter for routine adult health examination without abnormal findings) : Patient Instructions Indication: Physical exam WITHOUT abnormal findings (Renamed from Encounter for routine adult health examination without abnormal findings) Controlled diabetes mellitus type II without complication : How to access health information online Indication: Controlled diabetes mellitus type II without complication Controlled diabetes mellitus type II without complication : How to access health information online - Detail Indication: Controlled diabetes mellitus type II without complication Controlled diabetes mellitus type II without complication : Patient Instructions Indication: Controlled diabetes mellitus type II without complication Uncontrolled type II diabetes mellitus : Patient Instructions Indication: Uncontrolled type II diabetes mellitus Uncontrolled type II diabetes mellitus : Patient Instructions Indication: Uncontrolled type II diabetes mellitus Uncontrolled type II diabetes mellitus : How to access health information online Indication: Uncontrolled type II diabetes mellitus Uncontrolled type II diabetes mellitus : How to access health information online - Detail Indication: Uncontrolled type II diabetes mellitus Uncontrolled type II diabetes mellitus : Patient Instructions Indication: Uncontrolled type II diabetes mellitus Uncontrolled type II diabetes mellitus : Patient Instructions Indication: Uncontrolled type II diabetes mellitus Controlled diabetes mellitus type II without complication : Patient Instructions Indication: Controlled diabetes mellitus type II without complication Controlled diabetes mellitus type II without complication : Patient Instructions Indication: Controlled diabetes mellitus type II without complication Hypertensive urgency : Patient Instructions Indication: Hypertensive urgency Epistaxis : Patient Instructions Indication: Epistaxis Controlled diabetes mellitus type II without complication : Patient Instructions Indication: Controlled diabetes mellitus type II without complication Controlled diabetes mellitus type II without complication : Patient Instructions Indication: Controlled diabetes mellitus type II without complication Abdominal pain, acute, right upper quadrant : Patient Instructions Indication: Abdominal pain, acute, right upper quadrant Controlled diabetes mellitus type II without complication : Patient Instructions Indication: Controlled diabetes mellitus type II without complication Abdominal pain, acute, right upper quadrant : Patient Instructions Indication: Abdominal pain, acute, right upper quadrant Encounters Annotation/Addendum On: 03-Apr-2018 9:15 Encounter Diagnosis: Right upper quadrant pain End: 03-Apr-2018 9:17 [facility] Visit On: 01-Apr-2018 9:54 Encounter Reason: Abdominal pain - The onset of the pain has been sudden and has been occurring in an intermittent pattern for 1 month. The course has been recurrent. The pain is described as a moderate. The pain is desc End: 01-Apr-2018 11:01 ribed as being located in the upper abdomen. The pain does not radiate. The symptoms have no relieving factors. The symptoms have been associated with nausea.Encounter Diagnosis: BMI 28.0-28.9,adult, Non-smoker, Epigastric pain, RUQ pain, Nausea [facility] Office Visit On: 27-Feb-2018 10:58 Encounter Reason: Pre-Op Visit - The procedure scheduled is a lt catract eye sx on 03/14/18. The surgeon for the procedure will be Dr. Catie Zayas.Encounter Diagnosis: BMI 28.0-28.9,adult, Non-smoker, Pre-operative general physical examination, End: 27-Feb-2018 11:56 Essential hypertension, Uncontrolled type II diabetes mellitus [facility] Annotation/Addendum On: 25-Feb-2018 10:03 Encounter Diagnosis: Injury by nail, Hand pain, right End: 25-Feb-2018 10:19 [facility] Visit On: 07-Feb-2018 10:40 Encounter Reason: Follow up tests - Date: (01/29/18 labs)., [ADDITIONAL REASON] Follow up for chronic medical issues - The patient feels well with minor complai End: 07-Feb-2018 13:43 nts, has good energy level and is sleeping well. Patient has been compliant with instructions. Current medication use: no side effects and compliant with dosing regimen. Patient sleeps 7 hours per night . Impact of disease: no emotional impact. Nutrition: inappropriate diet. The medical issues the patient is following up for include All identified problems below, blood sugar issues, high blood pressure and high cholesterol. blood pressure range :, fasting blood sugars : and weight :. Encounter Diagnosis: BMI 28.0-28.9,adult, Non-smoker, Controlled diabetes mellitus type II without complication, Vision changes, Rash, Hand pain, right, Injury by nail, Hypercholesterolemia, Essential hypertension, Hypothyroidism [facility] Visit On: 23-Dec-2017 9:08 Encounter Reason: Falls, Geriatric - The most recent fall occurred indoors. 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 Pulled the n End: 23-Dec-2017 16:08 ail out and it was saurabh-not sure if there is a little piece still in hand or not. There is a small painful area-not sure if its still in there or not. Not sure when last tetanus shot was.Encounter Diagnosis: Non-smoker, BMI 28.0-28.9,adult, Injury by nail, Right hand pain [facility] Visit On: 28-Nov-2017 11:33 Encounter Reason: Injections - The medication the patient is here to receive is other (flu).Encounter Diagnosis: Need for prophylactic vaccination (Renamed from Need for immunization against influenza) End: 28-Nov-2017 13:31 [facility] Visit On: 06-Nov-2017 13:08 Encounter Reason: Follow up for chronic medical issues - The patient feels well with minor complaints, has good energy level and is sleeping well. Patient has been compliant with instructions. Current medication use: no End: 06-Nov-2017 15:36 side effects and compliant with dosing regimen. Patient sleeps 7 hours per night. Nutrition: balanced diet and supplemental vitamins. The medical issues the patient is following up for include All ident ified problems below, blood sugar issues, high blood pressure and high cholesterol. blood pressure range : and weight :., [ADDITIONAL REASON] Follow up tests - Date: (09/09/17). Encounter Diagnosis: Controlled diabetes mellitus type II without complication, BMI 28.0-28.9,adult, Non-smoker, Hypothyroidism, Hypercholesterolemia, Vitamin D deficiency, Nutritional counseling, Essential hypertension [facility] Phone Encounter On: 09-Sep-2017 10:40 Encounter Diagnosis: Bloody stool End: 09-Sep-2017 10:47 [facility] Visit On: 31-Jul-2017 13:07 Encounter Reason: Follow up for chronic medical issues - The patient feels well with minor complaints, has good energy level and is sleeping well.Encounter Diagnosis: BMI 28.0-28.9,adult, Non-smoker, End: 31-Jul-2017 16:50 Controlled diabetes mellitus type II without complication, Nutritional counseling, Essential hypertension, Hypercholesterolemia, Vitamin D deficiency, TUBULOVILLOUS ADENOMA, NOS, GERD (gastroesophageal reflux disease), Hypothyroidism, AK (actinic keratosis), Acute pain of right knee [facility] Visit On: 27-May-2017 16:00 Encounter Reason: Allergic reactionEncounter Diagnosis: BMI 27.0-27.9,adult, Non- smoker, Controlled diabetes mellitus type II without complication, Nutritional counseling, Subcutaneous nodules End: 27-May-2017 17:01 [facility] Visit On: 15-May-2017 11:31 Encounter Reason: Upper Respiratory Infection (URI) - No changes in management were made at the last visit. Symptoms include nasal congestion, scratchy throat, productive cough and general malaise. Onset was sudden 5 day End: 15-May-2017 12:05 (s) ago. The symptoms occur frequently. The patient describes this as moderate in severity and worsening.Encounter Diagnosis: BMI 28.0-28.9,adult, Non-smoker, Cough, Bronchitis [facility] Visit On: 01-Apr-2017 13:22 Encounter Reason: Follow up for chronic medical issues - The patient feels well with minor complaints, has good energy level and is sleeping well. Patient has been compliant with instructions. Current medication use: no End: 01-Apr-2017 14:42 side effects and compliant with dosing regimen. Patient sleeps 7 hours per night. Nutrition: balanced diet and no supplemental vitamins & iron. The medical issues the patient is following up for inc lude All identified problems below, blood sugar issues, high blood pressure, high cholesterol and other. blood pressure range : and weight :.Encounter Diagnosis: BMI 28.0-28.9,adult, GERD (gastroesophageal reflux disease), Uncontrolled type II diabetes mellitus, Hypothyroidism, Chronic anticoagulation, Essential hypertension, Vitamin D deficiency, Hypercholesterolemia, History of transient cerebral ischemia (Renamed from H/O transient cerebral ischemia) [facility] Visit On: 31-Dec-2016 10:10 Encounter Reason: Annual Medicare Exam - The patient had reviewed and updated the family history, medication/s, past medical history and social history. Yes the patient did have a mini mental status exam done today. The End: 31-Dec-2016 16:57 activities of daily living the patient needs help with are none. The patient has driven in past 6 months and put area rugs through house, but the patient has not had fecal incontinence, had urinary inco ntinence, missed or ran out of medications to soon, fallen in the past 6 months, gotten lost, has a medalert necklace or bracelet or put handrails in bathroom. The patient has completed the following pr eventative measures: PSA testing (?) and colonoscopy (5 yrs). The patient does have durable power of sander setter and living will. The patient has noticed nothing from the geriatic depression scale. Other p roviders contributing to the patient's care are other: (foot doc).Encounter Diagnosis: BMI 28.0-28.9,adult, Non-smoker, Annual Medicare Physical WITH abnormal findings (Renamed from Encounter for general adult medical ex amination with abnormal findings), Screening for prostate cancer, Encounter for screening for malignant neoplasm of colon (Renamed from Special screening for malignant neoplasms, colon), Uncontrolled type II diabetes mellitus, Memory loss, Heart murmur, systolic [facility] Visit On: 17-Dec-2016 8:31 Encounter Reason: Follow up for chronic medical issues - The patient feels well with minor complaints, has good energy level and is sleeping well. Patient has been compliant with instructions. Current medication use: no End: 17-Dec-2016 10:36 side effects and compliant with dosing regimen. Patient sleeps 7 hours per night. Nutrition: balanced diet and no supplemental vitamins & iron. The medical issues the patient is following up for inc lude All identified problems below, blood sugar issues, high blood pressure, high cholesterol and other.Encounter Diagnosis: Essential hypertension, Hypercholesterolemia, Uncontrolled type II diabetes mellitus, Vitamin D deficiency, Hypothyroidism, Decreased peripheral vibratory sense, GERD (gastroesophageal reflux disease), Need for prophylactic vaccination (Renamed from Need for immunization against influenza) [facility] Visit On: 24-Sep-2016 12:56 Encounter Reason: high blood pressure - The patient has experienced high blood pressure for days. blood pressure range : (200/100 something).Encounter Diagnosis: BMI 28.0-28.9,adult, Non-smoker, Essential hypertension, Episodic lightheadedness End: 24-Sep-2016 15:44 [facility] Visit On: 10-Sep-2016 8:41 Encounter Reason: Follow up for chronic medical issues - The patient feels well with minor complaints, has good energy level and is sleeping well. Patient has been compliant with instructions. Current medication use: no End: 10-Sep-2016 10:30 side effects and compliant with dosing regimen. Patient sleeps 7 hours per night. Nutrition: balanced diet and no supplemental vitamins & iron. The medical issues the patient is following up for inc lude All identified problems below, blood sugar issues, high blood pressure and high cholesterol. blood pressure range : and weight :.Encounter Diagnosis: Non- smoker, BMI 28.0-28.9,adult, Hypothyroidism, Hypercholesterolemia, Essential hypertension, Vitamin D deficiency, Plantar fasciitis, right, Uncontrolled type II diabetes mellitus [facility] Visit On: 08-Jun-2016 10:47 Encounter Reason: Follow up for chronic medical issues - The patient feels well with minor complaints, has good energy level and is sleeping well. Patient has been compliant with instructions. Current medication use: no End: 08-Jun-2016 12:54 side effects and compliant with dosing regimen. Patient sleeps 7 hours per night. Nutrition: balanced diet and no supplemental vitamins & iron. The medical issues the patient is following up for inc lude All identified problems below, blood sugar issues, high blood pressure and high cholesterol. fasting blood sugars : and weight :.Encounter Diagnosis: Controlled diabetes mellitus type II without complication, BMI 28.0-28.9,adult, Non-smoker, Benign prostatic hyperplasia with urinary obstruction and other lower urinary tract symptoms, Insomnia, unspecified, GERD (gastroesophageal reflux disease), Hypercholesterolemia, Essential hypertension, Vitamin D deficiency, Hypothyroidism [facility] Visit On: 30-May-2016 14:05 Encounter Diagnosis: BMI 28.0-28.9,adult, Non-smoker, Concussion, with loss of consciousness of 30 minutes or less, subsequent encounter, Concussion, with loss of consciousness of 30 minutes or less, initial encounter End: 30-May-2016 15:04 [facility] Visit On: 21-May-2016 11:58 Encounter Reason: Falls, Geriatric - The most recent fall occurred 1 day(s) ago outdoors. The fall resulted from loss of balance. The patient describes the symptoms as moderate in severity.Encounter Diagnosis: BMI 28.0-28.9,adult, Non-smoker, End: 21-May-2016 12:48 Fall from skis, initial encounter, Traumatic head injury with multiple lacerations, initial encounter, Concussion, with loss of consciousness of 30 minutes or less, initial encounter, Chronic anticoagulation [facility] Visit On: 03-May-2016 10:49 Encounter Reason: Flu Like Symptoms - No changes in management were made at the last visit. Symptoms include fever, chills, body aches and dry cough. Onset was sudden 3 day(s) ago. There is no known event that preceded s End: 03-May-2016 15:41 ymptom onset. The symptoms occur constantly. The patient describes this as moderate in severity and unchanged.Encounter Diagnosis: Flu-like symptoms, Cough, Body aches, Bronchitis [facility] Visit On: 09-Feb-2016 9:12 Encounter Reason: Follow up tests - Date: (01/24/16 labs)., [ADDITIONAL REASON] Follow up for chronic medical issues - The patient feels well with minor complai End: 09-Feb-2016 10:20 nts, has good energy level and is sleeping well. Patient has been compliant with instructions. Current medication use: no side effects and compliant with dosing regimen. Patient sleeps 6 hours per night . Nutrition: balanced diet and no supplemental vitamins & iron. The medical issues the patient is following up for include All identified problems below, blood sugar issues, high blood pressure and high cholesterol. blood pressure range :, fasting blood sugars : and weight :. Encounter Diagnosis: Controlled diabetes mellitus type II without complication, BMI 28.0- 28.9,adult, Non-smoker, Vitamin D deficiency, Hypercholesterolemia, Essential hypertension, Adult hypothyroidism [facility] Visit On: 23-Dec-2015 14:11 Encounter Reason: Nurse procedure visit - The symptoms have been associated with other (flu).Encounter Diagnosis: Need for prophylactic vaccination (Renamed from Need for immunization against influenza) End: 23-Dec-2015 14:24 [facility] Visit On: 24-Oct-2015 8:17 Encounter Reason: Follow up for chronic medical issues - The patient feels well with minor complaints, has good energy level and is sleeping well. Patient has been compliant with instructions. Current medication use: no End: 24-Oct-2015 11:28 side effects and compliant with dosing regimen. Patient sleeps 6 hours per night. Nutrition: balanced diet and no supplemental vitamins & iron. The medical issues the patient is following up for inc lude All identified problems below, blood sugar issues, high blood pressure and high cholesterol.Encounter Diagnosis: Controlled diabetes mellitus type II without complication, Essential hypertension, Hypothyroidism, Hypercholesterolemia, Vitamin D deficiency, 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 rupture (441.2), Heart murmur, Decreased peripheral vibratory sense [facility] Visit On: 20-Jun-2015 7:58 Encounter Reason: Follow up for chronic medical issues - The patient feels well with minor complaints, has good energy level and is sleeping well. Patient has been compliant with instructions. Current medication use: no End: 20-Jun-2015 8:42 side effects and compliant with dosing regimen. Patient sleeps 6 hours per night. Nutrition: balanced diet and no supplemental vitamins & iron. The medical issues the patient is following up for inc lude All identified problems below, blood sugar issues, high blood pressure and high cholesterol. blood pressure range : and weight :.Encounter Diagnosis: Hypercholesterolemia, Vitamin D deficiency, Controlled diabetes mellitus type II without complication, GERD (gastroesophageal reflux disease), 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 rupture (441.2), Hypothyroidism, Essential hypertension, TUBULOVILLOUS ADENOMA, NOS [facility] Visit On: 27-May-2015 12:20 Encounter Reason: Flu Like Symptoms - No changes in management were made at the last visit. Symptoms include body aches, sore throat, hoarseness, dry cough and headache, while symptoms do not include fever ( said he End: 27-May-2015 14:33 was warm) or runny nose. Onset was sudden. Onset followed exposure to someone at work with upper respiratory symptoms. The symptoms occur constantly. The patient describes this as moderate in severity a nd unchanged. Associated symptoms include fatigue, while associated symptoms do not include nausea, vomiting or diarrhea. Current treatment includes non- prescription cold medication.Encounter Diagnosis: Body aches, Sore throat [facility] Visit On: 21-Feb-2015 9:28 Encounter Reason: Follow up tests - Date: (02/15/15 labs)., [ADDITIONAL REASON] Follow up for chronic medical issues - The patient feels well with minor complai End: 21-Feb-2015 10:22 nts, has good energy level and is sleeping well. Patient has been compliant with instructions. Current medication use: no side effects and compliant with dosing regimen. Patient sleeps 6 hours per night . Nutrition: balanced diet and no supplemental vitamins & iron. The medical issues the patient is following up for include All identified problems below, blood sugar issues, high blood pressure and high cholesterol. blood pressure range : and weight :. Encounter Diagnosis: Uncontrolled type II diabetes mellitus, Hypercholesterolemia, Vitamin D deficiency, Hypothyroidism, Benign prostatic hyperplasia with urinary obstruction and other lower urinary tract symptoms, Essential hypertension, Heart murmur, aortic [facility] Office Visit On: 19-Jan-2015 9:28 Encounter Reason: Annual Medicare Exam - The patient had reviewed and updated the family history, medication/s, past medical history and social history. Yes the patient did have (mms 30/30wisper 3/3) a mini mental status End: 19-Jan-2015 11:07 exam done today. The activities of daily living the patient needs help with are none. The patient has had urinary incontinence (stream changed too) and fallen in the past 6 months, but the patient has not had fecal incontinence. The patient has completed the following preventative measures: PSA testing (2014) and colonoscopy (2013). The patient does have durable power of sander setter and living will. The patient has noticed nothing from the geriatic depression scale. Other providers contributing to the patient's care are computer repair instructor (dr zayas) and other: ([facility] vision jerome, vision test up to date).Encounter Diagnosis: Physical exam WITHOUT abnormal findings (Renamed from Encounter for routine adult health examination without abnormal findings), BPH (600.01) [facility] Office Visit On: 05-Jan-2015 15:06 Encounter Reason: Injections - The medication the patient is here to receive is other (influenza vaccine).Encounter Diagnosis: Need for prophylactic vaccination (Renamed from Need for immunization against influenza) End: 05-Jan-2015 16:09 [facility] Office Visit On: 16-Nov-2014 7:52 Encounter Reason: Follow up for chronic medical issues - The patient feels well with no complaints, has good energy level and is sleeping well. Patient has been compliant with instructions. Current medication use: no josé luis End: 16-Nov-2014 10:20 e effects and compliant with dosing regimen. Patient sleeps 6 hours per night. 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 Patient has been compliant with instructions. Current medication use: no josé luis End: 09-Aug-2014 9:16 e effects and compliant with dosing regimen. Patient sleeps 6 hours per night. 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), Gerd (530.81), Type II Diabetes,controlled (250.00) [facility] Lab Order On: 03-Aug-2014 12:52 Encounter Diagnosis: Potassium disorder End: 03-Aug-2014 12:56 [facility] Phone Encounter On: 02-Aug-2014 9:30 Encounter Diagnosis: Hypercholesterolemia (272.0), Hypothyroidism(244.9), Vitamin D deficiency End: 02-Aug-2014 9:36 [facility] Office Visit On: 19-May-2014 15:57 Encounter Reason: BP nurse visit - The symptoms have been associated with other (BP check).Encounter Diagnosis: 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 Patient has been compliant with instructions. Current medication use: no End: 10-May-2014 13:25 side effects and compliant with dosing regimen. Patient sleeps 7 hours per night. Nutrition: balanced diet and supplemental vitamins. The medical issues the patient is following up for include All ident ified problems below, blood sugar issues, high blood pressure and high cholesterol. 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 The cough is characterized as dry. The cough occurs all the time. The symptoms are aggravated by supine posture. The symptoms have been associated with h End: 23-Mar-2014 9:50 eadache, hoarseness, weight loss and wheezing, while the symptoms have not been associated with fever.Encounter Diagnosis: Flu-like symptoms, Cough [facility] Office Visit On: 18-Jan-2014 11:12 Encounter Reason: Follow up for chronic medical issues - The patient feels well with minor complaints, has good energy level and is sleeping well. Patient has been compliant with instructions. Current medication use: no End: 18-Jan-2014 15:12 side effects and compliant with dosing regimen. Patient sleeps 7 hours per night. Nutrition: balanced diet and supplemental vitamins. The medical issues the patient is following up for include All ident ified problems below, blood sugar issues, high blood pressure and high cholesterol. blood pressure range : and weight :., [ADDITIONAL REASON] Annual Medicare Exam - Yes the patient did have a mini mental status exam done t tete. The activities of daily living the patient needs help with are none. The patient has fallen in the past 6 months, but the patient has not had fecal incontinence, had urinary incontinence, missed o r ran out of medications to soon, driven in past 6 months, gotten lost, has a medalert necklace or bracelet, put area rugs through house or put handrails in bathroom. The patient has completed the [facility] preventative measures: PSA testing (2011) and colonoscopy (2011). The patient does have durable power of sander setter and living will. The patient has noticed nothing from the geriatic depression scale . Other providers contributing to the patient's care are computer repair instructor (Dr. Antonio) and surgeon (Dr. Negro -- orthopedic surgeon). 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), Annual Medicare Physical (V70.0), Type II Diabetes,uncontrolled (250.02), Impotence (607.84), SCREENING FOR CANCER OF THE PROSTATE (V76.44) [facility] Office Visit On: 08-Jan-2014 11:39 Encounter Diagnosis: Unspecified hypertensive heart disease without heart failure (402.90) End: 08-Jan-2014 11:57 [facility] Office Visit On: 25-Dec-2013 13:39 Encounter Reason: InjectionsEncounter Diagnosis: Need for prophylactic vaccination and inoculation against influenza (V04.81) End: 28-Dec-2013 11:38 [facility] Office Visit On: 08-Oct-2013 6:48 Encounter Reason: Follow up tests - Date: (09/29/13 labs)., [ADDITIONAL REASON] Follow up for chronic medical issues - The patient feels well with minor complai End: 08-Oct-2013 15:20 nts, has good energy level and is sleeping well. Patient has been compliant with instructions. Current medication use: no side effects and compliant with dosing regimen. Patient sleeps 6 hours per night . Nutrition: balanced diet and supplemental vitamins. The medical issues the patient is following up for include All identified problems below, blood sugar issues, high blood pressure and high cholesterol. blood pressure range : and weight :. Encounter Diagnosis: Gerd (530.81), Hypothyroidism(244.9), Hypercholesterolemia (272.0), BPH (600.01), Type II Diabetes,uncontrolled (250.02), Unspecified hypertensive heart disease without heart failure (402.90) [facility] Phone Encounter On: 17-Jul-2013 15:38 Encounter Diagnosis: Vitamin D deficiency End: 17-Jul-2013 15:39 [facility] Office Visit On: 09-Jul-2013 7:36 Encounter Reason: Follow up for chronic medical issues - The patient feels well with minor complaints, has good energy level and is sleeping well. Patient has been compliant with instructions. Current medication use: no End: 09-Jul-2013 15:16 side effects and compliant with dosing regimen. Patient sleeps 6 hours per night. Nutrition: balanced diet and supplemental vitamins. The medical issues the patient is following up for include All ident ified problems below, blood sugar issues, high blood pressure and high cholesterol. blood pressure range : and weight :.Encounter Diagnosis: Hypothyroidism(244.9), Gerd (530.81), Hypercholesterolemia (272.0), Type II Diabetes,uncontrolled (250.02), Unspecified hypertensive heart disease without heart failure (402.90), History of transient cerebral ischemia (Renamed from H/O transient cerebral ischemia), Hip pain, Sacroiliac pain [facility] Phone Encounter On: 29-Jun-2013 13:56 Encounter Diagnosis: Impotence (607.84) End: 29-Jun-2013 13:59 [facility] Office Visit On: 03-Apr-2013 7:30 Encounter Reason: Follow up for chronic medical issues - The patient feels well with minor complaints, has good energy level and is sleeping well. Patient has been compliant with instructions. Current medication use: no End: 03-Apr-2013 9:05 side effects and compliant with dosing regimen. Patient sleeps 6 hours per night. Nutrition: balanced diet. The medical issues the patient is following up for include All identified problems below, bloo d sugar issues, high blood pressure and high cholesterol. blood pressure range :, fasting blood sugars : and weight :.Encounter Diagnosis: Unspecified hypertensive heart disease without heart failure (402.90), Hypercholesterolemia (272.0), Hypothyroidism(244.9), Type II Diabetes,uncontrolled (250.02), Parasthesia (782.0), Shoulder pain (719.41) [facility] Office Visit On: 19-Dec-2012 11:46 Encounter Diagnosis: Need for pneumococcal vaccination (V03.82) End: 19-Dec-2012 14:01 [facility] Office Visit On: 17-Dec-2012 7:54 Encounter Reason: Follow up for chronic medical issues - The patient feels well with minor complaints, has good energy level and is sleeping well. Patient has been compliant with instructions. Current medication use: no End: 17-Dec-2012 11:37 side effects and compliant with dosing regimen. Patient sleeps 8 hours per night. Nutrition: balanced diet and no supplemental vitamins & iron. The medical issues the patient is following up for inc lude All identified problems below, blood sugar issues, high blood pressure and high cholesterol. blood pressure range :, fasting blood sugars : and weight :.Encounter Diagnosis: Type II Diabetes,controlled (250.00), Need for prophylactic vaccination and inoculation against influenza (V04.81), Hypercholesterolemia (272.0), Hypothyroidism(244.9), Unspecified hypertensive heart disease without heart failure (402.90) [facility] Office Visit On: 15-Sep-2012 10:22 Encounter Reason: Follow up for chronic medical issues - The patient feels well with minor complaints, has good energy level and is sleeping poorly. Patient has been compliant with instructions. Current medication use: n End: 15-Sep-2012 11:30 o side effects and compliant with dosing regimen. Patient sleeps 6 hours per night. Nutrition: balanced diet and supplemental vitamins. The medical issues the patient is following up for include All angelica ntified problems below, blood sugar issues, high blood pressure and high cholesterol. blood pressure range :, fasting blood sugars : and weight :., [ADDITIONAL REASON] Annual Medicare Exam - The patient had reviewed and updated the family history, medication/s, past medical history and social history. Yes the patient did have () a mini mental status exam done today. The activities of daily living the patient needs help with are none. The cherelle pickard has driven in past 6 months and put area rugs through house, but the patient has not had fecal incontinence, had urinary incontinence, missed or ran out of medications to soon, fallen in the past 6 months, gotten lost, has a medalert necklace or bracelet or put handrails in bathroom. The patient has completed the following preventative measures: PSA testing (08/2011) and colonoscopy (2011). The criselda toscano does have durable power of sander setter and living will. The patient has noticed nothing from the geriatic depression scale. 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 Encounter Diagnosis: Type II Diabetes,controlled (250.00), Unspecified hypertensive heart disease without heart failure (402.90), Hypothyroidism(244.9), Hypercholesterolemia (272.0), Epistaxis (784.7), Slurred speech (784.59), History of transient cerebral ischemia (V12.54), Annual Medicare Physical (V70.0), SCREENING FOR CANCER OF THE PROSTATE (V76.44) [facility] Office Visit On: 04-Sep-2012 10:18 Encounter Reason: Follow up Hypertension - The patient has experienced follow up hypertension for months. The symptoms have been associated with obesity, while the symptoms have not been associated with anxiety or excess End: 04-Sep-2012 11:13 viviana caffeine intake. blood pressure range :.Encounter Diagnosis: Hypertensive urgency (401.9), Hypercholesterolemia (272.0), Hypothyroidism(244.9), Type II Diabetes,controlled (250.00), History of transient cerebral ischemia (V12.54), Unspecified hypertensive heart disease without heart failure (402.90), Epistaxis (784.7) [facility] Office Visit On: 08-Aug-2012 10:50 Encounter Diagnosis: Hypertensive urgency (401.9) End: 08-Aug-2012 11:21 [facility] Phone Encounter On: 08-Aug-2012 9:24 Encounter Diagnosis: Hypertensive urgency (401.9) End: 08-Aug-2012 10:37 [facility] Phone Encounter On: 07-Aug-2012 8:17 Encounter Diagnosis: Hypertensive urgency (401.9) End: 07-Aug-2012 8:18 [facility] Phone Encounter On: 04-Aug-2012 17:36 Encounter Diagnosis: Abnormal CT scan (793.99) End: 04-Aug-2012 17:38 [facility] Office Visit On: 04-Aug-2012 13:23 Encounter Diagnosis: Unspecified hypertensive heart disease without heart failure (402.90), Epistaxis (784.7), Hypertensive urgency (401.9), Slurred speech (784.59) End: 04-Aug-2012 17:13 [facility] Office Visit On: 28-Jul-2012 12:52 Encounter Reason: high blood pressure - The patient has experienced high blood pressure for 1 day. The symptoms have been associated with family history of hypertension and obesity, while the symptoms have not been asso End: 28-Jul-2012 13:55 ciated with anxiety or excessive caffeine intake. blood pressure range : (not usually high).Encounter Diagnosis: Unspecified hypertensive heart disease without heart failure (402.90), Heart murmur (785.2), Epistaxis (784.7) [facility] Office Visit On: 13-Jun-2012 7:00 Encounter Reason: Follow up for chronic medical issues - The patient feels well with minor complaints, has good energy level and is sleeping poorly. Patient has been compliant with instructions. Current medication use: n End: 13-Jun-2012 7:52 o side effects and compliant with dosing regimen. Patient sleeps 6 hours per night. Nutrition: balanced diet and supplemental vitamins. The medical issues the patient is following up for include All angelica ntified problems below, blood sugar issues, high blood pressure and high cholesterol.Encounter Diagnosis: Type II Diabetes,controlled (250.00), Hypothyroidism(244.9), Hypercholesterolemia (272.0), Unspecified hypertensive heart disease without heart failure (402.90) [facility] Annotation/Addendum On: 21-Mar-2012 10:38 Encounter Diagnosis: Heart murmur (785.2) End: 21-Mar-2012 10:43 [facility] Phone Encounter On: 19-Mar-2012 14:55 Encounter Diagnosis: Hypothyroidism(244.9), Heart murmur (785.2) End: 19-Mar-2012 14:57 [facility] Office Visit On: 13-Mar-2012 7:42 Encounter Reason: Follow up for chronic medical issues - The patient feels well with minor complaints, has good energy level and is sleeping well. Patient has been compliant with instructions. Current medication use: no End: 13-Mar-2012 8:47 side effects and compliant with dosing regimen. Patient sleeps 6 hours per night. Nutrition: balanced diet and supplemental vitamins. The medical issues the patient is following up for include All ident ified problems below, blood sugar issues, cardiac issues, high blood pressure, high cholesterol and hypothyroid. blood pressure range :, fasting blood sugars : and weight :.Encounter Diagnosis: Type II Diabetes,controlled (250.00), Hypothyroidism(244.9), Gerd (530.81), Unspecified hypertensive heart disease without heart failure (402.90), Hypercholesterolemia (272.0) [facility] Office Visit On: 31-Dec-2011 11:07 Encounter Reason: Follow up tests - Date: (hida scan 12-24-11).Encounter Diagnosis: Abdominal Pain,RUQ(789.01), Gerd (530.81) End: 31-Dec-2011 11:54 [facility] Phone Encounter On: 19-Dec-2011 14:28 Encounter Diagnosis: ABNORMAL FINDINGS NEC (796.9) End: 19-Dec-2011 14:33 [facility] Office Visit On: 13-Dec-2011 7:30 Encounter Reason: Follow up for chronic medical issues - The patient feels well with minor complaints, has good energy level and is sleeping well. Patient has been compliant with instructions. Current medication use: no End: 13-Dec-2011 9:04 side effects and compliant with dosing regimen. Patient sleeps 7 hours per night. Nutrition: balanced diet and supplemental vitamins. The medical issues the patient is following up for include All ident ified problems below, blood sugar issues, high blood pressure and high cholesterol. blood pressure range : and weight :.Encounter Diagnosis: Impotence (607.84), Hypothyroidism(244.9), Type II Diabetes,controlled (250.00), Unspecified hypertensive heart disease without heart failure (402.90) [facility] Office Visit On: 29-Nov-2011 10:22 Encounter Reason: Abdominal pain - The onset of the pain has been sudden and has been occurring in an intermittent pattern for 1 week. The course has been decreasing. The pain is described as a mild (was really bad but g End: 29-Nov-2011 10:56 etting better now) sharp pain, dull ache and gnawing. The pain is described as being located in the right upper quadrant. The pain radiates to the back. The symptoms have no aggravating factors. The sym ptoms have no relieving factors. There has been no associated abdominal distention, bloating, constipation, diarrhea or nausea.Encounter Diagnosis: Abdominal Pain,RUQ(789.01) [facility] Office Visit On: 27-Nov-2011 12:19 Encounter Reason: Injections - The medication the patient is here to receive is other (flu).Encounter Diagnosis: Need for prophylactic vaccination and inoculation against influenza (V04.81) End: 27-Nov-2011 12:33 [facility] Office Visit On: 07-Sep-2011 8:36 Encounter Reason: Follow up for chronic medical issues - The patient feels well with minor complaints, has good energy level and is sleeping well. Patient has been compliant with instructions. Current medication use: no End: 07-Sep-2011 9:27 side effects and compliant with dosing regimen. Patient sleeps 6 hours per night. Nutrition: balanced diet and supplemental vitamins. The medical issues the patient is following up for include All ident ified problems below, blood sugar issues, gastric reflux, high blood pressure, high cholesterol and hypothyroid.Encounter Diagnosis: Type II Diabetes,controlled (250.00), Hypothyroidism(244.9), Unspecified hypertensive heart disease without heart failure (402.90), Hypercholesterolemia (272.0) [facility] Lab Order On: 30-Aug-2011 12:43 Encounter Diagnosis: Unspecified hypertensive heart disease without heart failure (402.90), Hypothyroidism(244.9), SCREENING FOR CANCER OF THE PROSTATE (V76.44) End: 30-Aug-2011 12:44 [facility] Phone Encounter On: 08-Jun-2011 16:33 Encounter Diagnosis: Unspecified Diagnosis End: 08-Jun-2011 16:35 [facility] Office Visit On: 08-Jun-2011 8:25 Encounter Reason: Follow up for chronic medical issues - The patient feels well with minor complaints, has good energy level and is sleeping well. Patient has been compliant with instructions. Current medication use: no End: 08-Jun-2011 9:06 side effects and compliant with dosing regimen. Patient sleeps 6 hours per night. Nutrition: balanced diet and supplemental vitamins. The medical issues the patient is following up for include All ident ified problems below, blood sugar issues, gastric reflux, high blood pressure, high cholesterol and hypothyroid. 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 Patient has been compliant with instructions. Current medication use: no End: 09-Mar-2011 9:16 side effects and compliant with dosing regimen. Patient sleeps 6 hours per night. Nutrition: balanced diet and supplemental vitamins. The medical issues the patient is following up for include All ident ified problems below, blood sugar issues, high blood pressure and high cholesterol. blood pressure range : and weight :., [ADDITIONAL REASON] Follow up tests - Date: (02/22/11 mri). 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 The injury involved the lower back. The activity began 2 month(s) ago. The last clinic visit was 2 month(s) ago. No changes in management we End: 26-Jan-2011 11:59 re made at the last visit. Symptoms include back pain and spasm, while symptoms do not include stiffness. Symptoms are located in the left lower back and right lower back. There is no radiation. The pat ient describes the pain as dull and aching. The symptoms occur constantly. The patient describes symptoms as moderate in severity and worsening. Symptoms are exacerbated by sitting. Symptoms are not relieved by rest, ice or acetaminophen. Encounter Diagnosis: Low back pain (724.2), LOW BACK PAIN WITH RADICULOPATHY (724.4) [facility] Office Visit On: 05-Jan-2011 10:43 Encounter Reason: Dizziness - The last clinic visit was 1 day(s) ago. No changes in management were made at the last visit. Symptoms include dizziness, while symptoms do not include weakness or syncope. The dizziness is End: 05-Jan-2011 15:55 described as lightheadedness, a spinning sensation, a sensation of movement and loss of balance. Onset was sudden 1 day(s) ago. There is no known event that preceded symptom onset. The symptoms occur co nstantly. The patient describes this as severe and worsening. Symptoms are exacerbated by head movement and turning the head, while symptoms are not exacerbated by lying down. Symptoms are not relieved by rest, recumbency, lying still, avoiding head movement or antivertigo medications. Associated symptoms include nausea, while associated symptoms do not include vomiting, diarrhea, headache, fever, ear pain, ear fullness, tinnitus or neck pain. The patient is not currently being treated for this problem.Encounter Diagnosis: Unspecified hypertensive heart disease without heart failure (402.90), Dizziness(780.4) [facility] Office Visit On: 06-Dec-2010 8:01 Encounter Reason: Follow up tests - Diagnostic tests include other (lab). Date: (11/29/10). Follow up visit with no current symptoms. There is a family history of cardiovascular disease. Past medical history includes hypertension., End: 06-Dec-2010 8:46 [ADDITIONAL REASON] Follow up for chronic medical issues - The patient feels well with no complaints. Patient has been compliant with instructions. Current medication use: no side effects. Encounter Diagnosis: Type II Diabetes,controlled (250.00), Hypothyroidism(244.9), Hypercholesterolemia (272.0), Unspecified hypertensive heart disease without heart failure (402.90), OCCLUSION AND STENOSIS OF CAROTID ARTERY, WITHOUT MENTION OF CEREBRAL INFARCTION (433.10), Need for prophylactic vaccination and inoculation against influenza (V04.81) [facility] Erroneous Entry On: 29-Nov-2010 8:49 Encounter Diagnosis: Type II Diabetes,controlled (250.00) End: 29-Nov-2010 8:50 [facility] Office Visit On: 30-Aug-2010 7:58 Encounter Reason: Follow up for chronic medical issues - The patient feels well with minor complaints, has good energy level and is sleeping well. Patient has been compliant with instructions. Current medication use: no End: 30-Aug-2010 9:14 side effects and compliant with dosing regimen. Patient sleeps 7 hours per night. Nutrition: balanced diet and supplemental vitamins. The medical issues the patient is following up for include All ident ified problems below, blood sugar issues, high blood pressure and high cholesterol. blood pressure range :, fasting blood sugars : and weight :., [ADDITIONAL REASON] Follow up, Laboratory Test Results - Date: (07/30/10). Encounter Diagnosis: Type II Diabetes,controlled (250.00), Unspecified hypertensive heart disease without heart failure (402.90), Hypercholesterolemia (272.0), Gerd (530.81), Hypothyroidism(244.9) [facility] Office Visit On: 31-May-2010 8:09 Encounter Reason: Follow up for chronic medical issues - The patient feels well with minor complaints, has good energy level and is sleeping well. Patient has been compliant with instructions. Current medication use: no End: 31-May-2010 9:37 side effects and compliant with dosing regimen. Patient sleeps 6 hours per night. Nutrition: balanced diet and supplemental vitamins. The medical issues the patient is following up for include All ident ified problems below, blood sugar issues, high blood pressure, high cholesterol and hypothyroid. blood pressure range : and weight :., [ADDITIONAL REASON] Follow up, Laboratory Test Results - Date: (05/24/10). Encounter Diagnosis: Type II Diabetes,controlled (250.00), Hypothyroidism(244.9), Gerd (530.81), Hypercholesterolemia (272.0), Unspecified hypertensive heart disease without heart failure (402.90), SCREENING FOR CANCER OF THE PROSTATE (V76.44) [facility] Phone Encounter On: 08-Mar-2010 16:31 Encounter Diagnosis: Viral infection, unspecified (079.99) End: 08-Mar-2010 16:32 [facility] Office Visit On: 23-Feb-2010 6:51 Encounter Reason: Follow up for chronic medical issues - The patient does not feel well, has decreased energy level and is sleeping poorly. Patient has been compliant with instructions. Current medication use: no side ef End: 23-Feb-2010 7:38 fects and compliant with dosing regimen. Patient sleeps 5 hours per night. Nutrition: balanced diet and supplemental vitamins. The medical issues the patient is following up for include All identified p roblems below, blood sugar issues, high blood pressure and high cholesterol. blood pressure range :, fasting blood sugars : and weight :.Encounter Diagnosis: Type II Diabetes,controlled (250.00), Unspecified hypertensive heart disease without heart failure (402.90), Hypercholesterolemia (272.0), Gerd (530.81), Hypothyroidism(244.9), Viral infection, unspecified (079.99) [facility] Office Visit On: 27-Dec-2009 17:14 Encounter Diagnosis: Need for prophylactic vaccination and inoculation against influenza (V04.81) End: 28-Dec-2009 9:39 [facility] Office Visit On: 15-Nov-2009 7:49 Encounter Reason: Follow up for chronic medical issues - The patient feels well with minor complaints ,has good energy level and is sleeping poorly. Patient has been compliant with instructions. Current medication use: n End: 15-Nov-2009 9:17 o side effects and compliant with dosing regimen. Patient sleeps 6 hours per night. Nutrition: balanced diet and supplemental vitamins. The medical issues the patient is following up for include All angelica ntified problems below ,blood sugar issues ,high blood pressure ,high cholesterol and hypothyroid. weight :. Encounter Diagnosis: Type II Diabetes,controlled (250.00), Unspecified hypertensive heart disease without heart failure (402.90), Hypothyroidism(244.9), Hypercholesterolemia (272.0) [facility] Office Visit On: 10-Aug-2009 7:58 Encounter Reason: Follow up for chronic medical issues - The patient feels well with minor complaints ,has good energy level and is sleeping well. Patient has been compliant with instructions. Current medication use: no End: 10-Aug-2009 9:01 side effects and compliant with dosing regimen. Patient sleeps 6 hours per night. Nutrition: balanced diet and supplemental vitamins. The medical issues the patient is following up for include All ident ified problems below ,blood sugar issues ,high blood pressure and high cholesterol. blood pressure range : ,fasting blood sugars : and weight :. Encounter Diagnosis: Type II Diabetes,uncontrolled (250.02), Unspecified hypertensive heart disease without heart failure (402.90), Hypercholesterolemia (272.0), Gerd (530.81), Hypothyroidism(244.9), SCREENING FOR CANCER OF THE PROSTATE (V76.44) [facility] Phone Encounter On: 15-Jun-2009 15:43 [facility] End: 15-Jun-2009 15:44 Office Visit On: 11-May-2009 8:28 Encounter Reason: Follow up for chronic medical issues - The patient feels well with minor complaints ,has decreased energy level and is sleeping well. Patient has been compliant with instructions. Current medication use End: 11-May-2009 9:39 : no side effects and compliant with dosing regimen. Patient sleeps 7 hours per night. Nutrition: balanced diet and supplemental vitamins. The medical issues the patient is following up for include All identified problems below ,blood sugar issues ,high blood pressure ,high cholesterol and hypothyroid. weight :. Encounter Diagnosis: Type II Diabetes,uncontrolled (250.02), Unspecified hypertensive heart disease without heart failure (402.90), Hypothyroidism(244.9), Hypercholesterolemia (272.0), Shoulder pain (719.41), Shoulder Impingment Syndrome (726.2), TUBULOVILLOUS ADENOMA, NOS, Gerd (530.81), SCREENING FOR CANCER OF THE PROSTATE (V76.44) [facility] Office Visit On: 04-Feb-2009 8:02 Encounter Reason: Follow up for chronic medical issues - The patient feels well with minor complaints ,has good energy level and is sleeping well. Patient has been compliant with instructions. Current medication use: no End: 04-Feb-2009 9:40 side effects and compliant with dosing regimen. Patient sleeps 6 hours per night. Nutrition: balanced diet ,inadequate caloric intake ,inappropriate diet ,no supplemental vitamins & iron ,poor nutri tion ,supplemental vitamins and low salt diet. The medical issues the patient is following up for include All identified problems below ,blood sugar issues ,high blood pressure and high cholesterol. blo od pressure range : ,fasting blood sugars : (160) and weight :. Encounter Diagnosis: Type II Diabetes,uncontrolled (250.02), Unspecified hypertensive heart disease without heart failure (402.90), Hypercholesterolemia (272.0), Hypothyroidism(244.9), Gerd (530.81), OCCLUSION AND STENOSIS OF CAROTID ARTERY, WITHOUT MENTION OF CEREBRAL INFARCTION (433.10) [facility] Office Visit On: 25-Oct-2008 7:54 Encounter Reason: Follow up for chronic medical issues - The patient feels well with minor complaints ,has good energy level and is sleeping well. Patient has been compliant with instructions. Current medication use: no End: 25-Oct-2008 9:04 side effects and compliant with dosing regimen. Patient sleeps 7 hours per night. Nutrition: balanced diet and supplemental vitamins. The medical issues the patient is following up for include All ident ified problems below ,blood sugar issues ,high blood pressure and high cholesterol. fasting blood sugars :. Encounter Diagnosis: Type II Diabetes,controlled (250.00), Unspecified hypertensive heart disease without heart failure (402.90), Hypothyroidism(244.9), Gerd (530.81) [facility] Office Visit On: 14-Oct-2008 9:10 Encounter Reason: Follow up, Laboratory Test Results - Date: (08/24/08). Encounter Diagnosis: Abnormal TSH (794.5), Hypothyroidism(244.9), Muscle spasm (728.85), Low back pain (724.2) End: 14-Oct-2008 9:59 [facility] Office Visit On: 24-Aug-2008 13:17 Encounter Reason: Follow up, Laboratory Test Results - Lab results: other (TSH, glucose). Date:. Encounter Diagnosis: Abnormal TSH (794.5), Abnormal blood chemistry (790.6) End: 24-Aug-2008 17:21 [facility] Office Visit On: 17-Aug-2008 11:47 Encounter Reason: Vertigo - The onset of the vertigo has been sudden and has been occurring in a persistent pattern for 3 days. The course has been constant. The vertigo is characterized as lightheadedness and spinning o End: 17-Aug-2008 12:37 f the environment. The vertigo is precipitated by position change. The symptoms have been associated with headache ,loss of balance and nausea, while the symptoms have not been associated with fever ,syncope ,tinnitus or vomiting. Encounter Diagnosis: Benign paroxysmal positional vertigo (386.11), Eustachian tube dysfunction (381.81) [facility] Office Visit On: 04-Jun-2008 10:24 Encounter Reason: Follow up for chronic medical issues - The patient feels well with minor complaints ,has good energy level and is sleeping poorly. Patient has been compliant with instructions. Current medication use: n End: 04-Jun-2008 13:12 o side effects and compliant with dosing regimen. Patient sleeps 7 hours per night. Nutrition: balanced diet and supplemental vitamins. The medical issues the patient is following up for include All angelica ntified problems below ,blood sugar issues ,gastric reflux ,high blood pressure and high cholesterol. Encounter Diagnosis: Type II Diabetes,controlled (250.00), Unspecified hypertensive heart disease without heart failure (402.90), Hypercholesterolemia (272.0), Gerd (530.81), BPH (600.01), OCCLUSION AND STENOSIS OF CAROTID ARTERY, WITHOUT MENTION OF CEREBRAL INFARCTION (433.10), Muscle spasm (728.85) [facility] Office Visit On: 03-Mar-2008 7:43 Encounter Reason: Follow up for chronic medical issues - The patient feels well with minor complaints ,has good energy level and is sleeping well. Patient has been compliant with instructions. Current medication use: no End: 03-Mar-2008 10:30 side effects and compliant with dosing regimen. Patient sleeps 7 hours per night. Nutrition: balanced diet and supplemental vitamins. The medical issues the patient is following up for include All ident ified problems below ,blood sugar issues ,high blood pressure and high cholesterol. blood pressure range : and weight :. Encounter Diagnosis: Type II Diabetes,controlled (250.00), Unspecified hypertensive heart disease without heart failure (402.90) , Hypercholesterolemia (272.0), Gerd (530.81) [facility] Office Visit On: 05-Jan-2008 14:17 Encounter Reason: Skin lesion - The skin lesion appeared gradually and has been occurring for months. It has been increasing in size. The skin lesion is characterized as raised above the skin. The skin lesion is located on the face. End: 05-Jan-2008 14:33 Encounter Diagnosis: MILD SQUAMOUS CELL ATYPIA, Need for prophylactic vaccination and inoculation against influenza (V04.81) [facility] Office Visit On: 22-Dec-2007 10:03 Encounter Reason: Skin lesion - The skin lesion appeared rapidly and has been occurring for 2 weeks. It has been increasing in size. The skin lesion is characterized as red and raised above the skin. The skin lesion is l End: 22-Dec-2007 12:00 ocated on the face (left cheek). There has been no associated itching or pain. Encounter Diagnosis: Lesion-Unknown behavior (238.2) [facility] Office Visit On: 17-Dec-2007 9:57 Encounter Reason: Skin lesion - The skin lesion appeared rapidly and has been occurring for 2 weeks. It has been increasing in size. The skin lesion is characterized as red and raised above the skin. The skin lesion is l End: 17-Dec-2007 10:37 ocated on the face (left cheek). There has been no associated itching or pain. Encounter Diagnosis: Rosacea (695.3), Lesion-Unknown behavior (238.2) [facility] Office Visit On: 07-Nov-2007 7:59 Encounter Reason: Follow up for chronic medical issues - The patient feels well with no complaints ,has good energy level and is sleeping well. Patient has been compliant with instructions. Current medication use: no josé luis End: 07-Nov-2007 10:02 e effects and compliant with dosing regimen. Patient sleeps 7 hours per night. Nutrition: balanced diet and supplemental vitamins. The medical issues the patient is following up for include All identifi ed problems below ,blood sugar issues ,gastric reflux ,high blood pressure and high cholesterol. blood pressure range : and weight :. Encounter Diagnosis: Type II Diabetes,uncontrolled (250.02), Unspecified hypertensive heart disease without heart failure (402.90), Hypercholesterolemia (272.0), OCCLUSION AND STENOSIS OF CAROTID ARTERY, WITHOUT MENTION OF CEREBRAL INFARCTION (433.10) [facility] Office Visit On: 25-Sep-2007 13:19 Encounter Reason: Follow up, Diagnostic Procedure Results - Date: (09-19-07). Note for Follow up, Diagnostic Procedure Results: stress testEncounter Diagnosis: Abnormal Cardiac Test (794.30), LIGHTHEADEDNESS (780.4) End: 25-Sep-2007 14:08 [facility] Office Visit On: 15-Sep-2007 10:11 Encounter Reason: Follow up, Laboratory Test Results - Date: (08-07-07 on face sheet). , [ADDITIONAL REASON] Follow up, Diagnostic Procedure Results - Date: (09-03-07 scanned in). Encounter Diagnosis: Abnormal Cardiac Test (794.30), End: 15-Sep-2007 11:05 OCCLUSION AND STENOSIS OF CAROTID ARTERY, WITHOUT MENTION OF CEREBRAL INFARCTION (433.10), Unspecified hypertensive heart disease without heart failure (402.90), Hypercholesterolemia (272.0) [facility] Historical Summary On: 08-Sep-2007 13:43 [facility] End: 08-Sep-2007 14:04 Phone Encounter On: 01-Sep-2007 8:44 [facility] End: 01-Sep-2007 8:44 Office Visit On: 07-Aug-2007 9:28 Encounter Reason: Follow up for chronic medical issues - The patient feels well with minor complaints ,has good energy level and is sleeping poorly. Patient has been compliant with instructions. Current medication use: n End: 07-Aug-2007 11:15 o side effects and compliant with dosing regimen. Patient sleeps 7 hours per night. Nutrition: balanced diet and supplemental vitamins. The medical issues the patient is following up for include All angelica ntified problems below ,blood sugar issues ,high blood pressure and high cholesterol. blood pressure range :. Encounter Diagnosis: Type II Diabetes,uncontrolled (250.02), LIGHTHEADEDNESS (780.4), Benign essential hypertension (401.1), Hypercholesterolemia (272.0), Gerd (530.81), Rosacea (695.3) [facility] Historical Summary On: 06-Aug-2007 9:20 [facility] End: 06-Aug-2007 9:22 Office Visit On: 31-Mar-2007 8:57 Encounter Reason: Follow up for chronic medical issues - The patient feels well with no complaints ,has good energy level and is sleeping well. Patient has been compliant with instructions. Current medication use: no josé luis End: 31-Mar-2007 12:13 e effects and compliant with dosing regimen. Patient sleeps 7 hours per night. Nutrition: balanced diet and supplemental vitamins. The medical issues the patient is following up for include All identifi ed problems below ,blood sugar issues ,high blood pressure and high cholesterol. blood pressure range :. Encounter Diagnosis: Abnormal glucose tolerance test (790.22), Hypertension (401.0), Hypercholesterolemia (272.0), Gerd (530.81), TINEA PEDIS (110.4) [facility] Office Visit On: 02-Jan-2007 11:02 Encounter Reason: Follow up Meds - The patient feels well with no complaints ,has good energy level and is sleeping poorly. Patient has been compliant with instructions. Current medication use: no side effects and compli End: 02-Jan-2007 12:06 ant with dosing regimen. Patient sleeps 6 hours per night. Nutrition: balanced diet and supplemental vitamins. Encounter Diagnosis: Benign essential hypertension (401.1), Hypercholesterolemia (272.0) [facility] Office Visit On: 29-Nov-2006 11:38 Encounter Reason: Follow up for chronic medical issues - The patient feels well with no complaints ,has good energy level and is sleeping well. Patient has been compliant with instructions. Current medication use: no josé luis End: 29-Nov-2006 12:57 e effects and compliant with dosing regimen. Patient sleeps 7 hours per night. Nutrition: inappropriate diet ,supplemental vitamins and low salt diet. The medical issues the patient is following up for include All identified problems below ,gastric reflux ,high blood pressure and high cholesterol. blood pressure range : (130's-70). Encounter Diagnosis: Abnormal glucose tolerance test (790.22), Hypertension (401.0), Hypercholesterolemia (272.0), Gerd (530.81) [facility] Office Visit On: 04-Nov-2006 12:00 Encounter Reason: Foot problems - The onset of the foot problems has been gradual (left foot numbness) and they have been occurring in a persistent pattern for 2 months (before surgery done on ingrown toenail). The cours End: 04-Nov-2006 12:46 e has been constant. The foot problems are described as mild (numbness). Encounter Diagnosis: Parasthesia (782.0) [facility] Office Visit On: 26-Jul-2006 10:44 Encounter Reason: Follow up for chronic medical issues - The patient feels well with minor complaints (occasional swelling of left foot ). Patient has been compliant with instructions. Current medication use: no side eff End: 26-Jul-2006 11:33 ects. Patient sleeps 6 hours per night. Nutrition: balanced diet. The medical issues the patient is following up for include All identified problems below ,blood sugar issues ,gastric reflux ,high blood pressure ,high cholesterol and other (BPH). Encounter Diagnosis: Abnormal glucose tolerance test (790.22), Hypertension (401.0), Hypercholesterolemia (272.0), Gerd (530.81) [facility] Office Visit On: 18-Jul-2006 11:54 Encounter Reason: Rash - The onset of the rash has been gradual and has been occurring in a persistent pattern for 3 days. The course has been increasing. The rash is characterized as red and raised above the skin. The r End: 18-Jul-2006 12:25 maxx was first seen on the trunk. It spread to the trunk. Note for Rash: Pt was cutting downa tree and thinks he now has poison oak- [facility] Office Visit On: 28-Mar-2006 10:56 Encounter Reason: Follow up for chronic medical issues - The patient feels well with minor complaints (one little spot on back that still hurts). Patient has been compliant with instructions. Current medication use: no s End: 28-Mar-2006 18:03 angelica effects. Patient sleeps 5 (has interrupted sleep pattern on and off) hours per night. Nutrition: balanced diet. The medical issues the patient is following up for include All identified problems bel ow ,blood sugar issues ,high blood pressure and high cholesterol. , [ADDITIONAL REASON] Follow up for diabetes/glucose intolerance - The patient is sleeping poorly. Cherelle pickard has been compliant with instructions. Nutrition: follows ADA diet (to best of his ability). , [ADDITIONAL REASON] Insomnia - The onset of the insomnia has been variable and has been occurring in an intermittent pattern for 12 months. The course has been recurrent. The insomnia is characterized as disturbed sleep. There has been no associated anxiety ,chronic pain ,depression ,excessive alcohol ,excessive caffeine intake ,fatigue ,lack of concentration ,suicidal thoughts ,use of alcohol or weight loss. Encounter Diagnosis: Abnormal glucose tolerance test (790.22), Hypertension (401.0), Hypercholesterolemia (272.0), Insomnia,Unspecified (327.00), Gerd (530.81) [facility] Historical Summary On: 26-Mar-2006 15:22 [facility] End: 26-Mar-2006 15:24 Historical Summary On: 07-Mar-2006 14:16 [facility] End: 07-Mar-2006 14:37 Payers MedicareAlex Plummer Ins/MedicareErnest Stone; joceline guarantor
--- OUTSIDE RECORDS SUMMARY | 2018-06-16 21:44 | XMS RPT_ITS | Continuity of Care Document ---
:1945 External Reference #:[id number] Author Organization [facility] Address [address] [facility] [address] [place] [address] Phone Care Team Providers Name Role Phone Colleen GARCIA Denisa Unavailable Physical Therapy, [facility] Unavailable Herberth Pollock Unavailable Lawrence Church MD Unavailable Baljit Arcos MD Unavailable Dr. Nik Ch Unavailable Rivera MAO MD , Jhonathan Zelaya Unavailable Santana Zayas Unavailable Dr. Abel Rojas Unavailable Dr. Mg Norman Unavailable Julio Crooks DO Unavailable ALICIA Edge Unavailable Unavailable Unavailable Unavailable Problems Name Dates [...] Right hand pain (M79.641, 729.5) Status: Active Rosacea (L71.9, 695.3) Status: Active [...] not in neptali anymore so we will garbage pick up worker ball Status: Active TUBULOVILLOUS ADENOMA, NOS Comments: [...] DO, Kathleen Start : 27-Dec-2016 Active Pen [place] 5/16 31G X 8 MM Miscellaneous 1 (one) Misc Misc q week for 30 days Quantity: 1 {Box} Refills: 3 Ordered:01-Apr-2017 Anne Edge LPN Start : 01-Apr-2017 Active Plavix 75 [...] days Quantity: 90 {Capsule} Refills: 3 Ordered:10-May-2014 iJm Macias DO, DO, Kathleen Start : 10-May-2014 [...] (External Solution) uad (10 %) Inactive Comments:Trillium Harnett Levitra 10 MG Oral Tablet 1 Tablet [...] : 15-May-2017 End : 31-Jul-2017 Inactive ASPIRIN BUF(JEBHUA-KDYEFW-IRG), 325MG (Oral Tablet) 1 (one) Tablet Daily [...] days Quantity: 1 {Box} Refills: 3 Ordered:27-May-2017 Jim Macias DO, DO, Kathleen Start : 27-May-2017 End : [...] days Quantity: 12 {Tablet} Refills: 5 Ordered:19-Jan-2015 Jim Macias DO, DO, Kathleen Start : 19-Jan-2015 End [...] (R10.11, 789.01) Comments: still present but improved Status: Inactive as of 13-Mar-2012 Abnormal blood [...] as of 30-May-2016 Procedures Date Value Details 28-Feb-2018 Surgery Visit Report Result: Comments: See Note; NOTES: [facility] [address] [place] [address]. [address] [place] [address] OFFICE VISIT Date of Service: 02/27/18 MR#: [id number] Acct: [id number] Name: YOHANNES CADET Rep #: [id number] : 1945 Provider: Jhonathan Stafford MD Age/Sex: 72/M Location: [facility] Status: Signed Intake Vital Signs02/27/18 Height 6 ft 09/09 Weight: 216 lb 4 oz 02/27/18 Body Mass Index (BMI) 29.3 02/27/18 Blood Pressure 135/79 H Intake Visit Reasons: FB R Hand Chief Complaint: FB right hand Labor Trainer Required: No Is patient in pain ?: [...] mg PO DAILY 02/27/18 [History Confirmed 02/27/18] multivitamin,ro-fbel-ekisthxj tablet 1 tab PO DAILY 02/27 [History Confirmed 02/27/18] ramipril 5 mg capsule 5 mg PO DAILY 02/27/18 [History Confirmed 02/27/18] sitagliptin 100 mg tablet 100 mg PO DAILY 02/27/18 [History Confirmed 02/27/18] [facility] Medical History Diabetes mellitus (Acute) Hypothyroidism (Acute) [...] a 72 M [facility] of a questionable foreign [...] Foreign body of right hand, initial encounter S60.551A Plan At this point I do not [...] Foreign body of right hand, initial encounter S60.551A Encounter type: initial encounter Laterality: right 02/28/18 0826 <Electronically signed by Jhonathan Stafford MD> Date __ Jhonathan Stafford MD Cosigner Signature: Date (if applicable) CC: Denisa Macias DO 07-Feb-2018 Hand 2 Views Result: Comments: See Note; NOTES: [facility] Imaging Services [address] [place] [address] Hand 2 Views MR#: [id number] Acct: [id number] Name: YOHANNES CADET Rep #: [id number] : 0 1945 M 72 From: Morales Perla MD PCP: Denisa Macias DO Status: REG CLI Study: Hand 2 Views Date of Exam: 02/07/18 Exam# [id number] Ordering Dr: Denisa Macias DO STUDY: X-RAY [...] Service support , CC: Denisa Macias DO Stocklayer: Signed 05-Dec-2016 PT D/C Summary (1) Result: Comments: See Note; NOTES: [facility] [address] [place] [address] Fax REHABILITATION SERVICES DISCHAR SUMMARY MR#: [id number] Acct: [id number] Name: YOHANNES CADET Rep #: [id number] [...] please feel free to call me at [phone]. Thank you for the referral of this patient. Sincerely, Aftab Mendez PT, <Electronically signed by Aftab Mendez PT, ATC> 12/05/16 1100 CC: Nik valdes DPM; Denisa Macias DO [facility] Signed 09-Oct-2016 Inital Evaluation (1) - PT Result: Comments: See Note; NOTES: [facility] [address] [facility]. [address] [place], [place] [address] Fax REHABILITATION SERVICES INITIAL EVALUATION MR#: [id number] Acct: [id number] Name: YOHANNES CADET Rep #: [id number] : 1945 71 From: Aftab Mendez PT, ATC Referring DrAddi: Nik Ch DPM Status: REG RCR Insurance: [facility] CARE PART A B [employer] FOR LIFE Patient's Visit Information YOHANNES CADET is a 71 year old M referred to Physical Therapy by Nik Ch with a diagnosis of R plantarfascitis. Date of Evalua tion: 10/09/16 Physical Therapist: Aftab Mendez PT, - Visit Plan Frequency: 2-3x /Week [...] to be FAXED BACK to us at [phone] for Medicare purposes. Please let me know if there are questions or concerns regarding this plan of care. Physician Signature: Date: <Electronically signed by Aftab Mendez PT, ATC> 1001 CC: Nik FINNM; Denisa Macias DO [facility] Signed For Medicare only, by signing this I certify the plan of care. Physicians Signature Date 21-May-2016 Brain/Head without Contrast Result: Comments: See Note; NOTES: [facility] Imaging Services [address] [place] [address] Verda 4d Brain/Head without Contrast MR#: [id number] Acct: [id number] Name: YOHANNES CADET Rep #: [id number] : 1945 M 70 From: Sincere Solorio DO PCP: Denisa Macias DO Status: REG CLI Study: Brain/Head without Contrast Date of Exam: 05/21/16 Exam# [id number] Ordering Dr: Denisa Macias DO STUDY: CT [...] at 14:26 EST Tel , Service support [phone], CC: Denisa Macias DO Stocklayer: Signed 14-Nov-2015 Echocardiogram Complete Result: Comments: See Note; NOTES: [facility] Cardiovascular Services [facility] [place] [address] Echo Complete 11/14/15 1303 MR#: [id number] Acct: [id number] Name: YOHANNES CADET Rep #: [id number] : 1945 70 From: Layo Raymond MD Attending Dr: Denisa Macias DO Status: REG CLI Ordering Dr: Denisa Macias DO Date: 11/14/15 Location: [facility] Sex: M C Admitted: Reason Fo r [...] Doppler Measurements & Calculations MV E max siva: 81.9 cm/sec Lat Peak E' Siva: 11.1 [...] Denisa Macias Performed By: Zaira Her RDCS 11/14/15 1649 Date Layo Raymond MD CC: Denisa Macias DO Date Dictated: 10/24 05/10 1303 Date Transcribed: 11/14/15 1649 Stocklayer: Signed 14-Nov-2015 Chest WITH Contrast Result: Comments: See Note; NOTES: [facility] Imaging Services [address] [place] [address] Verdana 4d Chest WITH Contrast MR#: [id number] Acct: [id number] Name: YOHANNES CADET Rep #: [id number] : 1945 M 70 From: Asia Peres MD PCP: Denisa Macias DO Status: REG CLI Study: Chest WITH Contrast Date of Exam: 11/14/15 Exam# [id number] Ordering Dr: Denisa Macias TUDY: CT CHEST [...] Service support , CC: Denisa Macias DO Stocklayer: Signed 24-Oct-2015 ELECTROCARDIOGRAM, COMPLETE (ECG) (53309) Comments: sinus gabby - no acute chg - same as old and on BB Result: [MEASUREMENTS ANALYSIS] Date of Test: 10/24/2015 09:30:26; Heart Rate: 55; MO Interval: 184; QRS: 105; QT Interval: 404; Corrected QT Interval (QTc): 396; P Wave [place]: 26; QRS Wave [place]: 27; T Wave [place] : 34; Blood Pressure: 138/70 [ECG DIAGNOSTIC STATEMENTS] Date of Test: 10/24/2015 09:30:26; Summary: Sinus Bradycardia WITHIN NORMAL LIMITS 29-Sep-2015 Knee 4 or More Views Result: Comments: See Note; NOTES: [facility] Imaging Services [address] [place] [address] Verdana 4d Knee 4 or More Views MR#: [id number] Acct: [id number] Name: YOHANNES CADET Rep #: [id number] : 1945 M 70 From: Tripp Miller MD PCP: Denisa Macias DO Status: REG CLI Study: Knee 4 or More Views Date of Exam: 09/29/15 Exam# [id number] Ordering Dr: Carrol Bautista DO STUDY: X-RAY [...] FACR at 9:18 EDT , Service support [phone], RAD/Knee 4 or More Views IMPRESSION: Moderate arthrosis of the patellofemoral joint Electronically Signed: Tripp Miller MD, FACR at 9:18 EDT , Service support [phone], CC: Carrol Kirkpatrick DO; Denisa Macias DO Stocklayer: Signed 27-Oct-2013 PT Discharge Summary Result: Comments: See Note; NOTES: [facility] [address] [place], [place] [address] Fax REHABILITATION SERVICES DISCHARGE SUMMARY MR#: [id number] Acct: [id number] Name: YOHANNES CADET Rep #: [id number] : 1945 68 From: Baljit Silva Referring [...] referral. Baljit Silva, PT T: GI JOB: [id number] <Electronically signed by Baljit pantoja > 10/27/13 0758 CC: Signed 27-Jul-2013 Inital Evaluation - PT Result: Comments: See Note; NOTES: [facility] [address] [place] [address]. [address] [place] [address] Fax REHABILITATION SERVICES INITIAL EVALUATION MR#: [id number] Acct: [id number] Name: YOHANNES CADET Rep #: [id number] : 1945 67 From: Baljit Silva Referring Dr.: Denisa Macias DO Status: DIS RCR Insurance: [place] PART A B Eval Date: [employer] FOR LIFE DATE OF SERVICE: 07/20/2013 REFERRING PHYSICIAN: Dr. Denisa Macias, JethroO. 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 His goals are to find why yaya lo has this problems and pains, to care [...] We discussed with patient possibly using the ubha-tke-cszprfq orthotics before he considers fabricated orthotics due to cost. Uzair Silva, PT T: GI JOB: [id number] <Electronically signed by Baljit Silva > 07/27/13 1802 CC: Signed For Medicare only, by signing this I c ertify the plan of care. Physicians Signature Date 09-Jul-2013 Hip min 2 Views Result: Comments: See Note; NOTES: [facility] Imaging Services [address] [place] [address] Radiology Report MR#: [id number] Acct: [id number] Name: YOHANNES CADET Rep #: [id number] : 1945 M 67 From: Jakob Hunt MD PCP: Denisa Macias DO Status: REG CLI Study: Hip min 2 Views Date of Exam: 07/09/13 Exam# [id number] Ordering Dr: Denisa Macias DO STUDY : [...] Jakob Hunt MD at 14:44 EDT Tel [phone], Service support [phone], Fax CC: Denisa Macias DO Stocklayer: Signed 09-Jul-2013 Pelvis 1 or 2 Views Result: Comments: See Note; NOTES: [facility] Imaging Services [address] [place] [address] Radiology Report MR#: [id number] Acct: [id number] Name: YOHANNES CADET Rep #: [id number] : 1945 M 67 From: Jakob Hunt MD PCP: Denisa aMcias DO Status: REG CLI Study: Pelvis 1 or 2 Views Date of Exam: 07/09/13 Exam# [id number] Ordering Dr: Denisa Macias DO S TUDY: [...] Jakob Hunt MD at 13:32 EDT Tel [phone], Service support [phone], CC: Denisa Macias DO Stocklayer: Signed 09-Jul-2013 EKG (17436) Comments: nsr no acute chg - ant leads are old Result: [MEASUREMENTS ANALYSIS] Date of Test: 07/09/2013 08:48:02; Heart Rate: 57; MO Interval: 164; QRS: 106; QT Interval: 408; Corrected QT Interval (QTc): 403; P Wave Havana: 25; QRS Wave [place]: 60; T Wave [place] : 62; Blood Pressure: 138/68 [ECG DIAGNOSTIC STATEMENTS] Date of Test: 07/09/2013 08:48:02; Summary: Sinus Bradycardia - Negative precordial T-waves. WITHIN NORMAL LIMITS Immunization Name Dates Details Influenza (3 years and up) on: 05-Jan-2008 Family History Unknown Family Member Name Dates Details Father Comments: NC/CVA at 84 Status: Active Social History Name [...] kg/m2 Body Surface Area Calculated 2.27 m2 9-Klm-708149:58 Pulse 65 /min Comments: Pattern: Regular Respiration [...] kg/m2 Body Surface Area Calculated 2.27 m2 7-Rhd-796051:15 Pulse 78 /min Comments: Pattern: Regular Respiration [...] Surface Area Calculated 2.27 m2 :15 Comments: joshua- at [facility] 2013hearing -wnl Pulse 57 /min Comments: Pattern: [...] kg/m2 Body Surface Area Calculated 2.29 m2 85-Xft-56414:46 Pulse 64 /min Comments: Pattern: Regular Respiration [...] kg/m2 Body Surface Area Calculated 2.26 m2 : Temperature 98.1 f Comments: Method: Oral Pulse [...] 0.00 cm Results Date Description Value Details :59 HgA1C , Office (86503) HgA1C , Office 7.2 % (Abnormal) Range: 4.6 - 7.1 :59 Blood Glucose , Office (75179) Blood Glucose , Office 128 (Normal) 9-Enu-751212:20 Microscopic Examination Comments: PATIENT WAS FASTINGPERFORMED BY: [employer] [id number] BY: [employer]yside[employer]70 [place] EventsCutefund [place] [id number] Bacteria None seen (Normal) Mucus Threads Present (Normal) Epithelial Cells (non renal) None seen {/hpf} (Normal) Range: 0 - 10 RBC None seen {/hpf} (Normal) Range: 0 - 2 WBC 0-5 {/hpf} (Normal) Range: 0 - 5 5-Aun-569059:20 CALCIFIDIOL (93740) VIT D Comments: PATIENT WAS FASTINGPERFORMED BY: [employer] [id number] BY: BuysideFX[address] WelzooSelect Specialty Hospital [facility] [id number] 25 Vitamin D, 25-Hydroxy 55.7 ng/mL (Normal) Range: 30.0-100.0 Comments: Vitamin D deficiency has been defined by the [place] of[place]icine and an Endocrine Society practice guideline as alevel of serum 25-OH vitamin D less than 20 ng/mL (1,2).The Endocrine Society went on to further define vitamin Dinsufficiency as a level between 21 and 29 ng/mL (2).1. IOM ([place] of Medicine). 2010. Dietary reference intakes for calcium and D. [place]: The National Academies Press.2. Charles MF, Raissa OCONNELL, Nirmala ALBERT, et al. Evaluation, treatment, and prevention of vitamin D deficiency: an Endocrine Society clinical practice guideline. JCEM. 2010; 96(7):1911-30. 9-Mzg-479060:20 TSH (43853) Comments: PATIENT WAS FASTINGPERFORMED BY: [employer] [facility] [id number] BY: [facility] Resource GroupCape [facility] [id number] TSH 2.360 {uIU/mL} (Normal) Range: 0.450-4.500 1-Vfz-610055:20 URINALYSIS, W/ MICRO Comments: PATIENT WAS FASTINGPERFORMED BY: [employer] [facility] [id number] BY: [facility] Resource GroupC[facility] [id number] (20819) Microscopic Examination See below: (Normal) Comments: Microscopic was indicated and was performed. Microscopic Examination MICRON (Normal) Comments: Microscopic follows if indicated. Nitrite, Urine Negative (Normal) Urobilinogen,Semi-Qn 0.2 mg/dL (Normal) Range: 0.2-1.0 Bilirubin Negative (Normal) Occult Blood Negative (Normal) Ketones Negative (Normal) Glucose Negative (Normal) Protein Negative (Normal) WBC Esterase Negative (Normal) Appearance Clear (Normal) Urine-Color Yellow (Normal) pH 5.0 (Normal) Range: 5.0-7.5 Specific Flint 1.019 (Normal) Range: 1.005-1.030 1-Qkc-577423:20 MICROALBUMIN: CREATININE Comments: PATIENT WAS FASTINGPERFORMED BY: [employer] [id number] BY: Ethics Resource Groupin [place] [id number] RATIO (86835) AND (86049) Alb/Creat Ratio <2.4 {mg/g_creat} (Normal) Range: 0.0-30.0 Comments: Normal: 0.0 - 30.0 Albuminuria: 31.0 - 300.0 Clinical albuminuria: >300.0 Albumin, Urine <3.0 ug/mL (Normal) Creatinine, Urine 123.5 mg/dL (Normal) 7-Web-370975:20 METABOLIC PANEL, Comments: PATIENT WAS FASTINGPERFORMED BY: BN [facility] Irkdguphhf1944 [facility] [id number] BY: CB [facility] Aoxruk2442 [facility] [id number] COMPREHENSIVE (03892) ALT (SGPT) 22 [iU]/L (Normal) Range: 0-44 [...] 8-27 Glucose 156 mg/dL (Abnormal) Range: 65-99 8-Isq-875825:20 CBC W/AUTO DIFF WBC Comments: PATIENT WAS FASTINGPERFORMED BY: Movidius[address] [id number] BY: [facility] County HospitalPiktochartValerie Ville 1217270 [facility] [id number] (46686) Immature Grans (Abs) 0.0 {x10E3/uL} (Normal) Range: [...] 4.14-5.80 WBC 5.8 {x10E3/uL} (Normal) Range: 3.4-10.8 3-Nnt-884804:20 LIPOPROTEIN, BLD, BY NMR Comments: PATIENT WAS FASTINGPERFORMED BY: Movid[address] [id number] BY: MovidiusSaint Francis Medical CenterMtmdet5525 [facility] [id number] (22176) LP-IR Score 66 (Abnormal) Comments: INSULIN RESISTANCE MARKER <--Insulin Sensitive Insulin Resistant--> Percentile in Reference PopulationInsulin Resistance ScoreLP-IR Score Low 25th 50th 75th High <27 27 45 63 >63LP-IR Score is inaccurate if patient is non-fasting. .The LP-IR score is a laboratory developed i [facility] that has beenassociated with insulin resistance and [...] were developed and their performance characteristicsdetermined by LipBuysideFX. These assays have not been cleared by [...] 1600 - 2000 Very High > 2000 72-Lxh-992105:40 HgA1C , Office (15218) HgA1C , Office 6.6 % (Normal) Range: 4.6 - 7.1 78-Kiw-639612:40 Blood Glucose , Office (14525) Blood Glucose , Office 75 (Normal) 02-Vec-841126:20 COLON BIOPSY (CHOOSE See Note (Normal) Comments: [facility] Ualtlkujum[address] [place], [address] SITE) Comments: Patient: YOHANNES CADET : 1945 (72/M) Acct Num: [id number] Phys: Mg Norman Unit Num: [id number] Loc: LABSPEC Specimen: [id number] Received: 09/20/171532 Spec Type: C OLON BX TISSUES TISSUES: Rectum, NOS GROSS DESCRIPTION Received in fixative is one container labeled with the patient's name and designated rectal polyp. The specimen predominantly consists of fecal material mixed with possible soares soft tissue, measuring in aggregate 2.5 x 0.6 x0.1 cm. The specimen is totally submitted in one cassette. BIJU:scott 09/23/17 TC: cannot code CPT: 29107 HEADER OPERATION: Colonoscopy with polypectomy PRE-OP DIAGNOSIS: Rectal bleeding TISSUE SUBMITTED: Rectal polyp MICROSCOPIC DESCRIPTION Slides are reviewed. MICROSCOPIC DIAGNOSIS Rectal polyp, polypectomy: Fragments of fecal material. Colonic mucosal tissue is not identified. BIJU:scott 09/24/18 Signed Magdy Purvis 09/24/17 <signature on file> 95-Fpc-233054:08 Microscopic Examination Comments: PATIENT WAS FASTINGPERFORMED BY: [facility] Kgxelp8126 [address] Roadblin [place] [id number] Bacteria None seen (Normal) Mucus Threads Present (Normal) Epithelial Cells (non renal) None seen {/hpf} (Normal) Range: 0 - 10 RBC None seen {/hpf} (Normal) Range: 0 - 2 WBC 0-5 {/hpf} (Normal) Range: 0 - 5 :08 T4, FREE (THYROXINE) (59023) Comments: PATIENT WAS FASTINGPERFORMED BY: [facility]University [facility] Byoors8511 Rosado RoadDublin [place] [id number] T4,Free(Direct) 1.27 ng/dL (Normal) Range: 0.82-1.77 :08 T3, FREE (TRIDOTHYRONINE) (20998) Comments: PATIENT WAS FASTINGPERFORMED BY: [facility]University [facility] Yasobi1299 Rosado RoadDublin [place] [id number] Triiodothyronine,Free,Serum 2.7 pg/mL (Normal) Range: 2.0-4.4 :08 CALCIFIDIOL (20334) VIT D 25 Comments: PATIENT WAS FASTINGPERFORMED BY: [facility] Maikru9761 Rosado RoadDublin [place] [id number] Vitamin D, 25-Hydroxy 57.4 ng/mL (Normal) Range: 30.0-100.0 Comments: Vitamin D deficiency has been defined by the [place] of[place]icine and an Endocrine Society practice guideline as alevel of serum 25-OH vitamin D less than 20 ng/mL (1,2).The Endocrine Society went on to further define vitamin Dinsufficiency as a level between 21 and 29 ng/mL (2).1. IOM ([place] of Medicine). 2010. Dietary reference intakes for calcium and D. [place]: The National Academies Press.2. Charles MF, Raissa NC, Nirmala ALBERT, et al. Evaluation, treatment, and prevention of vitamin D deficiency: an Endocrine Society clinical practice guideline. JCEM. 2010; 96(7):1911-30. :08 TSH (16823) Comments: PATIENT WAS FASTINGPERFORMED BY: [facility] Zcfdll0030 [facility] [id number] TSH 3.370 {uIU/mL} (Normal) Range: 0.450-4.500 06-Hem-236816:08 URINALYSIS, W/ MICRO (29716) Comments: PATIENT WAS FASTINGPERFORMED BY: [facility]6370 [facility] [id number] Microscopic Examination See below: (Normal) Comments: Microscopic was indicated and was performed. Microscopic Examination MICRON (Normal) Comments: Microscopic follows if indicated. Nitrite, Urine Negative (Normal) Urobilinogen,Semi-Qn 0.2 mg/dL (Normal) Range: 0.2-1.0 Bilirubin Negative (Normal) Occult Blood Negative (Normal) Ketones Negative (Normal) Glucose Negative (Normal) Protein Negative (Normal) WBC Esterase Negative (Normal) Appearance Clear (Normal) Urine-Color Yellow (Normal) pH 5.0 (Normal) Range: 5.0-7.5 Specific Flint 1.026 (Normal) Range: 1.005-1.030 19-Vyd-640842:08 MICROALBUMIN: CREATININE RATIO Comments: PATIENT WAS FASTINGPERFORMED BY: [facility]6370 [facility] [id number] (12512) AND (78288) Alb/Creat Ratio 1.3 {mg/g_creat} (Normal) Range: 0.0-30.0 Albumin, Urine 3.1 ug/mL (Normal) Creatinine, Urine 237.2 mg/dL (Normal) 97-Tmk-515648:08 METABOLIC PANEL, COMPREHENSIVE Comments: PATIENT WAS FASTINGPERFORMED BY: [facility]6370 [facility] [id number] (88708) ALT (SGPT) 17 [iU]/L (Normal) Range: 0-44 [...] 8-27 Glucose 142 mg/dL (Abnormal) Range: 65-99 25-Aws-433158:08 CBC W/AUTO DIFF WBC (51467) Comments: PATIENT WAS FASTINGPERFORMED BY: [facility] Nygtku5959 [facility] [id number] Immature Grans (Abs) 0.0 {x10E3/uL} (Normal) Range: [...] WBC 5.5 {x10E3/uL} (Normal) Range: 3.4-10.8 :08 LIPID PANEL (51876) Comments: PATIENT WAS FASTINGPERFORMED BY: GUICHO Movidiusrafi [facility] [id number] LDL/HDL Ratio 1.2 {ratio} (Normal) Range: 0.0-3.6 Comments: LDL/HDL Ratio Men Women 1/2 Avg.Risk 1.0 1.5 Av g.Risk 3.6 3.2 2X Avg.Risk 6.2 5.0 3X Avg.Risk 8.0 6.1 LDL Cholesterol Calc 51 mg/dL (Normal) Range: 0-99 VLDL Cholesterol Ezequiel 18 mg/dL (Normal) Range: 5-40 HDL Cholesterol 43 mg/dL (Normal) Triglycerides 90 mg/dL (Normal) Range: 0-149 Cholesterol, Total 112 mg/dL (Normal) Range: 100-199 :08 HgA1C , Office (25957) HgA1C , Office 6.9 % (Normal) Range: 4.6 - 7.1 :08 Blood Glucose , Office (90972) Blood Glucose , Office 123 (Normal) 4-Yki-285061:23 Blood Glucose , Office (39700) Blood Glucose , Office 69 (Normal) :23 HgA1C , Office (94885) HgA1C , Office 7.1 % (Normal) Range: 4.6 - 7.1 :23 Blood Glucose , Office (25552) Blood Glucose , Office 84 (Normal) 67-Qub-907034:06 Microscopic Examination Comments: PATIENT WAS FASTINGPERFORMED BY: GUICHO Glovicoblin [place] [id number] Bacteria Few (Normal) Mucus Threads Present (Normal) Epithelial Cells (non renal) None seen {/hpf} (Normal) Range: 0 - 10 RBC 0-2 {/hpf} (Normal) Range: 0 - 2 WBC 0-5 {/hpf} (Normal) Range: 0 - 5 1-Tqy-554419:25 Methymalonic Acid, Serum Comments: PATIENT NOT FASTINGPERFORMED BY: [place] 0066370 [facility] [id number] BY: Wealth[address] [id number] (12661) Methylmalonic Acid, Serum 586 nmol/L (Abnormal) Range: 0-378 9-Byu-942828:25 METABOLIC PANEL, Comments: PATIENT NOT FASTINGPERFORMED BY: LabPiktochartValerie Ville 1217270 [facility] [id number] BY: LabPiktochart[address] [id number] Inf ormation: [id number], [id number] COMPREHENSIVE (75599) ALT (SGPT) 11 [iU]/L (Normal) Range: 0-44 [...] Glucose, Serum 153 mg/dL (Abnormal) Range: 65-99 3-Dgv-938089:25 CBC (AUTO) (86212) Comments: PATIENT NOT FASTINGPERFORMED BY: [employer] [address] [facility]ontiacClavisterC[facility] [id number] BY: Movid[address] [id number] Platelets 213 {x10E3/uL} (Normal) Range: 150-379 RDW 14.0 % (Normal) Range: 12.3-15.4 MCHC 33.2 g/dL (Normal) Range: 31.5-35.7 MCH 27.5 pg (Normal) Range: 26.6-33.0 MCV 83 fL (Normal) Range: 79-97 Hematocrit 38.2 % (Normal) Range: 37.5-51.0 Hemoglobin 12.7 g/dL (Normal) Range: 12.6-17.7 RBC 4.62 {x10E6/uL} (Normal) Range: 4.14-5.80 WBC 4.6 {x10E3/uL} (Normal) Range: 3.4-10.8 3-Ygd-922288:25 TSH (23450) Comments: PATIENT NOT FASTINGPERFORMED BY: [employer]uro [employer] Jhupkp2275 [facility] [id number] BY: Movidius[address] [id number] TSH 3.040 {uIU/mL} (Normal) Range: 0.450-4.500 0-Hbl-509849:25 VITAMIN B-12 (CYANOCOBALAMIN) Comments: PATIENT NOT FASTINGPERFORMED BY: [employer] [facility] [id number] BY: MovidiusSpecialty Hospital at MonmouthApnsjcwlkp5232 [facility] [id number] (98408) Vitamin B12 227 pg/mL (Normal) Range: 211-946 :25 PSA (PROSTATE SPECIFIC Comments: PATIENT NOT FASTINGPERFORMED BY: [facility]Co Awhblp3982 [facility] [place] [id number] BY: LabCoDestiny Ville 037367 [facility] [id number] ANTIGEN) (V76.44) Prostate Specific Ag, 2.0 ng/mL (Normal) Range: 0.0-4.0 Serum Comments: Luxury RetreatsIA methodology. .According to the [place] [employer], Serum PSA shoulddecrease and remain at undetectable levels after radicalprostatectomy. The AUA defines biochemical recurrence as an initialPSA value 0.2 ng/mL or greater followed by a subsequent confirmatoryPSA value 0.2 ng/mL or greater.Values obtained with d ifferent assay methods or kits cannot be usedinterchangeably. Results cannot be interpreted as absolute evidenceof the presence or absence of malignant disease. 14-Vnu-041198:06 CALCIFIDIOL (80338) VIT D 25 Comments: PATIENT WAS FASTINGPERFORMED BY: WealthEngineMclaren [facility] Special [facility] Hospital6370 [facility] [id number] Vitamin D, 25-Hydroxy 42.4 ng/mL (Normal) Range: 30.0-100.0 Comments: Vitamin D deficiency has been defined by the [place] ofMedicine and an Endocrine Society practice guideline as alevel of serum 25-OH vitamin D less than 20 ng/mL (1,2).The Endocrine Society went on to further define vitamin Dinsufficiency as a level between 21 and 29 ng/mL (2).1. IOM ([place] of Medicine). 2010. Dietary reference intakes for calcium and D. [place]: The National Academies Press.2. Charles MF, Raissa OCONNELL, Nirmala ALBERT, et al. Evaluation, treatment, and prevention of vitamin D deficiency: an Endocrine Society clinical practice guideline. JCEM. 2010; 96(7):1911-30. :06 TSH (74345) Comments: PATIENT WAS FASTINGPERFORMED BY: WealthEngineMclaren [facility] Hospital6370 [facility] [id number] TSH 3.460 {uIU/mL} (Normal) Range: 0.450-4.500 :06 URINALYSIS, W/ MICRO (09264) Comments: PATIENT WAS FASTINGPERFORMED BY: [facility]6370 [facility] [id number] Microscopic Examination See below: (Normal) Comments: Microscopic was indicated and was performed. Microscopic Examination MICRON (Normal) Comments: Microscopic follows if indicated. Nitrite, Urine Negative (Normal) Urobilinogen,Semi-Qn 0.2 mg/dL (Normal) Range: 0.2-1.0 Bilirubin Negative (Normal) Occult Blood Negative (Normal) Ketones Negative (Normal) Glucose Negative (Normal) Protein Negative (Normal) WBC Esterase Negative (Normal) Appearance Clear (Normal) Urine-Color Yellow (Normal) pH 5.0 (Normal) Range: 5.0-7.5 Specific [place] 1.020 (Normal) Range: 1.005-1.030 20-Sys-622831:06 MICROALBUMIN: CREATININE RATIO Comments: PATIENT WAS FASTINGPERFORMED BY: WealthEngineMcl[facility] Hospital6370 [facility] [id number] (63762) AND (70719) Microalb/Creat Ratio <2.4 {mg/g_creat} (Normal) Range: 0.0-30.0 Microalbumin, Urine <3.0 ug/mL (Normal) Creatinine, Urine 127.3 mg/dL (Normal) 23-Anw-416491:06 METABOLIC PANEL, COMPREHENSIVE Comments: PATIENT WAS FASTINGPERFORMED BY: [facility]6370 [facility] [id number] (24481) ALT (SGPT) 15 [iU]/L (Normal) Range: 0-44 [...] Glucose, Serum 136 mg/dL (Abnormal) Range: 65-99 28-Ghf-673339:06 LIPID PANEL (58635) Comments: PATIENT WAS FASTINGPERFORMED BY: Nanotron TechnologiesCoEasiest Credit Card To Get Approved For70 Kapow EventsCape Fear Valley Bl[facility] [id number] LDL/HDL Ratio 1.5 {ratio_units} (Normal) Range: 0.0-3.6 Comments: LDL/HDL Ratio Men Women 1/2 Avg.Risk 1.0 1.5 Av g.Risk 3.6 3.2 2X Avg.Risk 6.2 5.0 3X Avg.Risk 8.0 6.1 LDL Cholesterol Calc 63 mg/dL (Normal) Range: 0-99 VLDL Cholesterol Ezequiel 25 mg/dL (Normal) Range: 5-40 HDL Cholesterol 42 mg/dL (Normal) Triglycerides 126 mg/dL (Normal) Range: 0-149 Cholesterol, Total 130 mg/dL (Normal) Range: 100-199 58-Mec-014831:06 CBC W/AUTO DIFF WBC (19250) Comments: PATIENT WAS FASTINGPERFORMED BY: InfoBionic [facility] Ilhqjm6257 K-PAX PharmaceuticalsSelect Specialty Hospital - [facility] [id number] Immature Grans (Abs) 0.0 {x10E3/uL} (Normal) Range: [...] (Normal) Range: 3.4-10.8 :32 HgA1C , Office (48588) HgA1C , Office 7.3 % (Abnormal) Range: 4.6 - 7.1 :32 Blood Glucose , Office (53648) Blood Glucose , Office 185 (Normal) :33 ALDOSTERONE (44654) Comments: PATIENT NOT FASTINGPERFORMED BY: LabCo[address] [id number] Aldosterone 3.8 ng/dL (Normal) Range: 0.0-30.0 Comments: This test was developed and its performance characteristicsdetermined by [employer].. It has not been cleared or approvedby the Food and Drug Administration. 0-Dge-493383:33 RENIN (48320) Comments: PATIENT NOT FASTINGPERFORMED BY: [address] [id number] Renin Activity, Plasma 0.402 {ng/mL/hr} Range: 0.167-5.380 (Normal) Comments: This test was developed and its performance characteristicsdetermined by [employer] It has not been cleared or approvedby the Food and Drug Administration. :31 METANEPHRINES - URINE (26343) Comments: PATIENT NOT FASTINGPERFORMED BY: [address] [id number] Metanephrine, U,24hr 238 {ug/24_hr} (Normal) Range: 45-290 Comments: (Hypertensive) >17 years 11 months: 35 - 460 Metanephrine, Ur 119 ug/L (Normal) Normetanephr.,U,24h 370 {ug/24_hr} (Normal) Range: 82-500 Comments: (Hypertensive) >17 years 11 months: 110 - 1050 Normetanephrine, Ur 185 ug/L (Normal) :31 CATECHOLAMINES TOTAL, URINE Comments: PATIENT NOT FASTINGPERFORMED BY: [address] [id number] Information: START 09/25/2016@447AM (69043) Dopamine, Ur, 24hr 280 {ug/24_hr} (Normal) Range: 0-510 Dopamine, Urine 140 ug/L (Normal) Norepinephrine,U,24h 42 {ug/24_hr} (Normal) Range: 0-135 Norepinephrine, Ur 21 ug/L (Normal) Epinephrine, U, 24hr 4 {ug/24_hr} (Normal) Range: 0-20 Epinephrine, Urine 2 ug/L (Normal) :31 URINE VMA (83006) Comments: PATIENT NOT FASTINGPERFORMED BY: WealthEngine[address] [id number] VMA, Urine, 24hr 3.4 {mg/24_hr} (Normal) Range: 0.0-7.5 Comments: This test was developed and its performance characteristicsdetermined by [employer].. It has not been cleared or approvedby the Food and Drug Administration. VMA, Urine 1.7 mg/L (Normal) :05 Microscopic Examination Comments: PATIENT WAS FASTINGPERFORMED BY: GUICHO [facility] SystemsPiktochartSaint Francis Medical CenterVtkuso5181 [facility] [id number] Bacteria None seen (Normal) Mucus Threads Present (Normal) Epithelial Cells (non renal) None seen {/hpf} (Normal) Range: 0 - 10 RBC 0-2 {/hpf} (Normal) Range: 0 - 2 WBC 0-5 {/hpf} (Normal) Range: 0 - 5 :05 LIPID PANEL (26769) Comments: PATIENT WAS FASTINGPERFORMED BY: GUICHO [facility]6370 [facility] [id number] LDL/HDL Ratio 1.3 {ratio_units} (Normal) Range: 0.0-3.6 Comments: LDL/HDL Ratio Men Women 1/2 Avg.Risk 1.0 1.5 Av g.Risk 3.6 3.2 2X Avg.Risk 6.2 5.0 3X Avg.Risk 8.0 6.1 LDL Cholesterol Calc 61 mg/dL (Normal) Range: 0-99 VLDL Cholesterol Ezequiel 19 mg/dL (Normal) Range: 5-40 HDL Cholesterol 47 mg/dL (Normal) Triglycerides 94 mg/dL (Normal) Range: 0-149 Cholesterol, Total 127 mg/dL (Normal) Range: 100-199 93-Opg-878435:05 URINALYSIS, W/ MICRO (88543) Comments: PATIENT WAS FASTINGPERFORMED BY: [facility]6370 [facility] [id number] Microscopic Examination See below: (Normal) Comments: Microscopic was indicated and was performed. Microscopic Examination MICRON (Normal) Comments: Microscopic follows if indicated. Nitrite, Urine Negative (Normal) Urobilinogen,Semi-Qn 0.2 mg/dL (Normal) Range: 0.2-1.0 Bilirubin Negative (Normal) Occult Blood Negative (Normal) Ketones Negative (Normal) Glucose Negative (Normal) Protein Negative (Normal) WBC Esterase Negative (Normal) Appearance Clear (Normal) Urine-Color Yellow (Normal) pH 5.5 (Normal) Range: 5.0-7.5 Specific [place] 1.024 (Normal) Range: 1.005-1.030 08-Hqh-226811:05 MICROALBUMIN: CREATININE RATIO Comments: PATIENT WAS FASTINGPERFORMED BY: BuysideFX70 [address] [facility] [id number] (32292) AND (54923) Microalb/Creat Ratio <1.7 {mg/g_creat} (Normal) Range: 0.0-30.0 Microalbumin, Urine <3.0 ug/mL (Normal) Creatinine, Urine 171.8 mg/dL (Normal) :05 METABOLIC PANEL, COMPREHENSIVE Comments: PATIENT WAS FASTINGPERFORMED BY: BuysideFX70 Kapow EventsCape Fear Valley [facility] [id number] (94761) ALT (SGPT) 15 [iU]/L (Normal) Range: 0-44 [...] Glucose, Serum 117 mg/dL (Abnormal) Range: 65-99 :05 CBC W/AUTO DIFF WBC (99070) Comments: PATIENT WAS FASTINGPERFORMED BY: LabMclaren Bay Special Care Hospital6370 [facility] [id number] Immature Grans (Abs) 0.0 {x10E3/uL} (Normal) Range: [...] 4.9 {x10E3/uL} (Normal) Range: 3.4-10.8 :05 TSH (21424) Comments: PATIENT WAS FASTINGPERFORMED BY: [facility] Iiwgll0881 Rosado RoadDublin [place] [id number] TSH 3.460 {uIU/mL} (Normal) Range: 0.450-4.500 :05 T4, FREE (THYROXINE) (80805) Comments: PATIENT WAS FASTINGPERFORMED BY: [facility] Syrefz5564 Rosado RoadDublin [place] [id number] T4,Free(Direct) 1.34 ng/dL (Normal) Range: 0.82-1.77 :05 T3, FREE (TRIDOTHYRONINE) (85230) Comments: PATIENT WAS FASTINGPERFORMED BY: [facility] Jtqwfa0823 [address] [facility] Hospitalblin [place] [id number] Triiodothyronine,Free,Serum 3.0 pg/mL (Normal) Range: 2.0-4.4 :05 CALCIFIDIOL (20198) VIT D 25 Comments: PATIENT WAS FASTINGPERFORMED BY: [facility] Dzvntu3250 [address] [facility]ontiacDublin [place] [id number] Vitamin D, 25-Hydroxy 46.6 ng/mL (Normal) Range: 30.0-100.0 Comments: Vitamin D deficiency has been defined by the [place] of[place]icine and an Endocrine Society practice guideline as alevel of serum 25-OH vitamin D less than 20 ng/mL (1,2).The Endocrine Society went on to further define vitamin Dinsufficiency as a level between 21 and 29 ng/mL (2).1. IOM ([place] of Medicine). 2010. Dietary reference intakes for calcium and D. [place]: The National Academies Press.2. Charles MF, Raissa NC, Hien-Calixto ALBERT, et al. Evaluation, treatment, and prevention of vitamin D deficiency: an Endocrine Society clinical practice guideline. JCEM. 2010; 96(7):1911-30. :42 HgA1C , Office (32422) HgA1C , Office 6.6 % (Normal) Range: 4.6 - 7.1 :42 Blood Glucose , Office (40956) Blood Glucose , Office 117 (Normal) :59 HgA1C , Office (55567) HgA1C , Office 6.8 % (Normal) Range: 4.6 - 7.1 :59 Blood Glucose , Office (97887) Blood Glucose , Office 237 (Normal) :52 Rapid Flu (63298 x 2) Influenza A Ag neg (Normal) :19 HgA1C , Office (89031) HgA1C , Office 6.6 % (Normal) Range: 4.6 - 7.1 :19 Blood Glucose , Office (30507) Blood Glucose , Office 171 (Normal) :43 Microscopic Examination Comments: PATIENT WAS FASTINGPERFORMED BY: Ethics Resource GroupCape Fear [facility] [id number] Bacteria Few (Normal) Mucus Threads Present (Normal) Epithelial Cells (non renal) 0-10 {/hpf} (Normal) Range: 0 - 10 RBC 0-2 {/hpf} (Normal) Range: 0 - 2 WBC 0-5 {/hpf} (Normal) Range: 0 - 5 :53 Serum Creatinine AND GFR Comments: [facility] Kshjshzygf[address] [place], [place], [address] EST GFR - AA 83 mL/min (Normal) Comments: GFR Calc EST GFR 69 mL/min (Normal) Comments: Non- GFR Calc CREAT,SERUM 1.12 mg/dL (Normal) Range: 0.70-1.30 Comments: The validity of the calculated GFR AND GFRAA in patients over70 years has not been determined. Clinical correlation isessential. :43 CALCIFIDIOL (07272) VIT D 25 Comments: PATIENT WAS FASTINGPERFORMED BY: [employer] RosadoMetaplaceSelect Specialty Hospital [facility] [id number] Vitamin D, 25-Hydroxy 55.4 ng/mL (Normal) Range: 30.0-100.0 Comments: Vitamin D deficiency has been defined by the [place] ofMedicine and an Endocrine Society practice guideline as alevel of serum 25-OH vitamin D less than 20 ng/mL (1,2).The Endocrine Society went on to further define vitamin Dinsufficiency as a level between 21 and 29 ng/mL (2).1. IOM ([place] of Medicine). 2010. Dietary reference intakes for calcium and D. [place]: The National Academies Press.2. Charles MF, Raissa OCONNELL, Nirmala ALBERT, et al. Evaluation, treatment, and prevention of vitamin D deficiency: an Endocrine Society clinical practice guideline. JCEM. 2010; 96(7):1911-30. 5-Ymg-690840:43 URINALYSIS, W/ MICRO (18899) Comments: PATIENT WAS FASTINGPERFORMED BY: [employer] [place] [id number] Microscopic Examination See below: (Normal) Comments: Microscopic was indicated and was performed. Microscopic Examination MICRON (Normal) Comments: Microscopic follows if indicated. Nitrite, Urine Negative (Normal) Urobilinogen,Semi-Qn 0.2 mg/dL (Normal) Range: 0.2-1.0 Bilirubin Negative (Normal) Occult Blood Negative (Normal) Ketones Negative (Normal) Glucose Negative (Normal) Protein Negative (Normal) WBC Esterase Negative (Normal) Appearance Clear (Normal) Urine-Color Yellow (Normal) pH 5.5 (Normal) Range: 5.0-7.5 Specific [place] 1.022 (Normal) Range: 1.005-1.030 8-Kph-080207:43 MICROALBUMIN: CREATININE RATIO Comments: PATIENT WAS FASTINGPERFORMED BY: Ethics Resource GroupCape [facility] [id number] (42564) AND (92996) Microalb/Creat Ratio <2.4 {mg/g_creat} (Normal) Range: 0.0-30.0 Microalbumin, Urine <3.0 ug/mL (Normal) Creatinine, Urine 122.5 mg/dL (Normal) :43 METABOLIC PANEL, COMPREHENSIVE Comments: PATIENT WAS FASTINGPERFORMED BY: Ethics Resource GroupCape [facility] [id number] (69906) ALT (SGPT) 12 [iU]/L (Normal) Range: 0-44 [...] Glucose, Serum 120 mg/dL (Abnormal) Range: 65-99 1-Lnt-012561:43 TSH (17295) Comments: PATIENT WAS FASTINGPERFORMED BY: BuysideFX70 [facility] [id number] TSH 4.010 {uIU/mL} (Normal) Range: 0.450-4.500 5-Wed-008387:43 LIPID PANEL (52852) Comments: PATIENT WAS FASTINGPERFORMED BY: BuysideFX70 [facility] [id number] LDL/HDL Ratio 1.2 {ratio_units} (Normal) Range: 0.0-3.6 [...] Cholesterol, Total 117 mg/dL (Normal) Range: 100-199 6-Mdu-433560:43 CBC W/AUTO DIFF WBC (18022) Comments: PATIENT WAS FASTINGPERFORMED BY: [facility] Nxocmr2778 [facility] [id number] Immature Grans (Abs) 0.0 {x10E3/uL} (Normal) Range: [...] (Normal) Range: 3.4-10.8 :27 HgA1C , Office (99111) HgA1C , Office 6.6 % (Normal) Range: 4.6 - 7.1 :27 Blood Glucose , Office (95212) Blood Glucose , Office 168 (Normal) :08 Microscopic Examination Comments: PATIENT WAS FASTINGPERFORMED BY: [employer] [facility] [id number] Bacteria None seen (Normal) Mucus Threads Present (Normal) Epithelial Cells (non renal) None seen {/hpf} (Normal) Range: 0 - 10 RBC None seen {/hpf} (Normal) Range: 0 - 2 WBC 0-5 {/hpf} (Normal) Range: 0 - 5 :08 CALCIFIDIOL (99526) VIT D 25 Comments: PATIENT WAS FASTINGPERFORMED BY: TeamVisibility6370 [facility] HospitalClavisterCape [facility] [id number] Vitamin D, 25-Hydroxy 62.4 ng/mL (Normal) Range: 30.0-100.0 Comments: Vitamin D deficiency has been defined by the [place] ofMedicine and an Endocrine Society practice guideline as alevel of serum 25-OH vitamin D less than 20 ng/mL (1,2).The Endocrine Society went on to further define vitamin Dinsufficiency as a level between 21 and 29 ng/mL (2).1. IOM ([place] of Medicine). 2010. Dietary reference intakes for calcium and D. [place]: The National Academies Press.2. Charles MF, Raissa NC, Nirmala ALBERT, et al. Evaluation, treatment, and prevention of vitamin D deficiency: an Endocrine Society clinical practice guideline. JCEM. 2010; 96(7):1911-30. :08 URINALYSIS, W/ MICRO (33920) Comments: PATIENT WAS FASTINGPERFORMED BY: Movidius Ycthuo6453 [address] WelzooSelect Specialty Hospital - [facility] [id number] Microscopic Examination See below: (Normal) Comments: Microscopic was indicated and was performed. Microscopic Examination MICRON (Normal) Comments: Microscopic follows if indicated. Nitrite, Urine Negative (Normal) Urobilinogen,Semi-Qn 0.2 mg/dL (Normal) Range: 0.2-1.0 Bilirubin Negative (Normal) Occult Blood Negative (Normal) Ketones Negative (Normal) Glucose Negative (Normal) Protein Negative (Normal) WBC Esterase Negative (Normal) Appearance Clear (Normal) Urine-Color Yellow (Normal) pH 6.0 (Normal) Range: 5.0-7.5 Specific [place] 1.022 (Normal) Range: 1.005-1.030 89-Fku-693128:08 MICROALBUMIN: CREATININE RATIO Comments: PATIENT WAS FASTINGPERFORMED BY: [employer]uro [employer] Vgwyub8961 Kap[facility] EventsCape Fear [facility] [id number] (39928) AND (20791) Microalb/Creat Ratio <1.8 {mg/g_creat} (Normal) Range: 0.0-30.0 Microalbumin, Urine <3.0 ug/mL (Normal) Creatinine, Urine 164.4 mg/dL (Normal) :08 METABOLIC PANEL, COMPREHENSIVE Comments: PATIENT WAS FASTINGPERFORMED BY: [employer]6370 Kap[facility] EventsCape Fear Valley [facility] [id number] (29676) ALT (SGPT) 16 [iU]/L (Normal) Range: 0-44 [...] Glucose, Serum 108 mg/dL (Abnormal) Range: 65-99 38-Sku-910493:08 LIPID PANEL (13798) Comments: PATIENT WAS FASTINGPERFORMED BY: Crescentratinglin6370 [facility] [id number] LDL/HDL Ratio 1.4 {ratio_units} (Normal) Range: 0.0-3.6 [...] Cholesterol, Total 124 mg/dL (Normal) Range: 100-199 75-Hbs-649466:08 CBC W/AUTO DIFF WBC Comments: PATIENT WAS FASTINGPERFORMED BY: Crescentratinglin6370 [facility] [id number] Information: [id number] (18550) Immature Grans (Abs) 0.0 {x10E3/uL} (Normal) Range: [...] 5.5 {x10E3/uL} (Normal) Range: 3.4-10.8 :08 TSH (69857) Comments: PATIENT WAS FASTINGPERFORMED BY: Cybersourcelin6370 [facility] [id number] TSH 4.000 {uIU/mL} (Normal) Range: 0.450-4.500 :03 HgA1C , Office (63347) HgA1C , Office 6.2 % (Normal) Range: 4.6 - 7.1 :03 Blood Glucose , Office (06436) Blood Glucose , Office 102 (Normal) :49 Throat Culture (47489) Comments: PATIENT NOT FASTINGPERFORMED BY: InfoBionic LabPiktochart Vzdpcm4511 [facility] [id number] Information: SRC:THRT [id number] Result 1 RRF (Normal) Comments: Routine respiratory alfredo Upper Respiratory Culture Final report (Normal) :02 Rapid Strep Test, Office (09395) Rapid Strep Test, Office Negative (Normal) 9-Xii-457232:48 Influenza A&B Viral Comments: PATIENT NOT FASTINGPERFORMED BY: LabMclaren Bay Special Care Hospital6370 [facility] [id number] Information: SRC:NOS [id number] Culture (71648) Viral Culture,Rapid,Influenza FLUABN (Normal) Comments: Negative:No Influenza A or B detected. 4-Vfx-595246:26 Rapid Flu (86538 x 2) Influenza A Ag negative (Normal) :30 HgA1C , Office (89580) HgA1C , Office 7.3 % (Abnormal) Range: 4.6 - 7.1 :30 Blood Glucose , Office (49456) Blood Glucose , Office 191 (Normal) :52 Microscopic Examination Comments: PATIENT WAS FASTINGPERFORMED BY: [facility]6370 [facility] [id number] Bacteria None seen (Normal) Mucus Threads Present (Normal) Epithelial Cells (non renal) 0-10 {/hpf} (Normal) Range: 0 - 10 RBC 0-2 {/hpf} (Normal) Range: 0 - 2 WBC 0-5 {/hpf} (Normal) Range: 0 - 5 :52 CALCIFIDIOL (83355) VIT D 25 Comments: PATIENT WAS FASTINGPERFORMED BY: [facility]6370 [facility] [id number] Vitamin D, 25-Hydroxy 44.9 ng/mL (Normal) Range: 30.0-100.0 Comments: Vitamin D deficiency has been defined by the [place] ofMedicine and an Endocrine Society practice guideline as alevel of serum 25-OH vitamin D less than 20 ng/mL (1,2).The Endocrine Society went on to further define vitamin Dinsufficiency as a level between 21 and 29 ng/mL (2).1. IOM ([place] of Medicine). 2010. Dietary reference intakes for calcium and D. [place]: The National Academies Press.2. Charles SCHILLING, Raissa OCONNELL, Nirmala ALBERT, et al. Evaluation, treatment, and prevention of vitamin D deficiency: an Endocrine Society clinical practice guideline. JCEM. 2010; 96(7):1911-30. :52 LIPID PANEL (76941) Comments: PATIENT WAS FASTINGPERFORMED BY: MovidiusSaint Francis Medical CenterVcblit8567 [facility] [id number] LDL/HDL Ratio 2.4 {ratio_units} (Normal) Range: 0.0-3.6 [...] 196 mg/dL (Normal) Range: 100-199 :52 TSH (05360) Comments: PATIENT WAS FASTINGPERFORMED BY: Auro Mira EnergySaint Francis Medical CenterDbozej1081 [facility] [id number] TSH 4.480 {uIU/mL} (Normal) Range: 0.450-4.500 :52 URINALYSIS, W/ MICRO (58509) Comments: PATIENT WAS FASTINGPERFORMED BY: Auro Mira EnergyValerie V[place] 1217270 [facility] [id number] Microscopic Examination See below: (Normal) Comments: Microscopic was indicated and was performed. Microscopic Examination MICRON (Normal) Comments: Microscopic follows if indicated. Nitrite, Urine Negative (Normal) Urobilinogen,Semi-Qn 0.2 mg/dL (Normal) Range: 0.2-1.0 Bilirubin Negative (Normal) Occult Blood Negative (Normal) Ketones Negative (Normal) Glucose Negative (Normal) Protein Negative (Normal) WBC Esterase Negative (Normal) Appearance Clear (Normal) Urine-Color Yellow (Normal) pH 6.0 (Normal) Range: 5.0-7.5 Specific [place] 1.024 (Normal) Range: 1.005-1.030 :52 MICROALBUMIN: CREATININE RATIO Comments: PATIENT WAS FASTINGPERFORMED BY: Auro Mira EnergySaint Francis Medical CenterTdyadf6405 [facility] [id number] (94728) AND (95036) Microalb/Creat Ratio <2.2 {mg/g_creat} (Normal) Range: 0.0-30.0 Microalbumin, Urine <3.0 ug/mL (Normal) Range: 0.0-17.0 Creatinine, Urine 135.9 mg/dL (Normal) Range: 22.0-328.0 62-Qyq-94223:52 METABOLIC PANEL, COMPREHENSIVE Comments: PATIENT WAS FASTINGPERFORMED BY: Cybersourcelin6370 [facility] [id number]; will review at 02/21 appt (52540) ALT (SGPT) 13 [iU]/L (Normal) Range: 0-44 [...] Glucose, Serum 130 mg/dL (Abnormal) Range: 65-99 :52 CBC W/AUTO DIFF WBC Comments: PATIENT WAS FASTINGPERFORMED BY: LabCoSaint Francis Medical CenterOfabaf4632 [facility] [id number] Information: [id number] (06525) Immature Grans (Abs) 0.0 {x10E3/uL} (Normal) Range: [...] (Normal) Range: 3.4-10.8 :56 HgA1C , Office (11929) HgA1C , Office 5.9 % (Normal) Range: 4.6 - 7.1 :56 Blood Glucose , Office (69501) Blood Glucose , Office 103 (Normal) :35 HgA1C , Office (22344) HgA1C , Office 6.0 % (Normal) Range: 4.6 - 7.1 :34 Blood Glucose , Office (12494) Blood Glucose , Office 135 (Normal) :45 Potassium Comments: Test performed at:[facility] Cxhwtwscbl[address] [place], [place] [address] K 4.3 mmol/L (Normal) Range: 3.5-5.1 :54 Comp. Metabolic Panel (14) Comments: PATIENT WAS FASTINGPERFORMED BY: LabCoSaint Francis Medical CenterDiqenr4518 [facility] [id number] Information: [id number] ALT (SGPT) 11 [iU]/L (Normal) Range: 0-44 [...] Glucose, Serum 117 mg/dL (Abnormal) Range: 65-99 25-Crl-86886:54 Lipid Panel With LDL/HDL Comments: PATIENT WAS FASTINGPERFORMED BY: WealthEngineMclaren Bay Special Care Hospital6370 [facility] [id number] Ratio LDL/HDL Ratio 2.1 {ratio_units} Range: 0.0-3.6 [...] 2.860 {uIU/mL} Comments: PATIENT WAS FASTINGPERFORMED BY: WealthEngineCoSaint Francis Medical CenterVjlukp7962 [facility] [facility] [id number] 9:54 (Normal) Range: 0.450-4.500 02-Aug-2014 Vitamin D, 25-Hydroxy 61.9 ng/mL (Normal) Comments: PATIENT WAS FASTINGPERFORMED BY: [facility]CoSaint [facility] CenterXzhwjy8766 [facility] [id number] 9:54 Range: 30.0-100.0 Comments: Vitamin D deficiency has been defined by the [place] ofMedicine and an Endocrine Society practice guideline as alevel of serum 25-OH vitamin D less than 20 ng/mL (1,2).The Endocrine Society went on to further define vitamin Dinsufficiency as a level between 21 and 29 ng/mL (2).1. IOM ([place] of Medicine). 2010. Dietary reference intakes for calcium and D. [place]: The National Academies Press.2. Charles MF, Raissa NC, Nirmala ALBERT, et al. Evaluation, treatment, and prevention of vitamin D deficiency: an Endocrine Society clinical practice guideline. JCEM. 2010; 96(7):1911-30. :13 HgA1C , Office (55030) HgA1C , Office 6.8 % (Normal) Range: 4.6 - 7.1 :13 Blood Glucose , Office (92080) Blood Glucose , Office 218 (Normal) 73-Cyk-207059:24 Microscopic Examination Comments: PATIENT WAS FASTINGPERFORMED BY: [employer] Ttkxqh9216 Rosado RoadSentara Albemarle Medical Centerin [place] [id number] Bacteria None seen (Normal) Mucus Threads Present (Normal) Epithelial Cells (non renal) None seen {/hpf} (Normal) Range: 0 - 10 RBC 0-2 {/hpf} (Normal) Range: 0 - 2 WBC 0-5 {/hpf} (Normal) Range: 0 - 5 :24 Vitamin D Hydroxy (73243) Comments: PATIENT WAS FASTINGPERFORMED BY: [employer]6370 [facility] [id number] Vitamin D, 25-Hydroxy 35.7 ng/mL (Normal) Range: 30.0-100.0 Comments: Vitamin D deficiency has been defined by the [place] ofMedicine and an Endocrine Society practice guideline as alevel of serum 25-OH vitamin D less than 20 ng/mL (1,2).The Endocrine Society went on to further define vitamin Dinsufficiency as a level between 21 and 29 ng/mL (2).1. IOM ([place] of Medicine). 2010. Dietary reference intakes for calcium and D. [place]: The National Academies Press.2. Charles MF, Raissa OCONNELL, Nirmala ALBERT, et al. Evaluation, treatment, and prevention of vitamin D deficiency: an Endocrine Society clinical practice guideline. JCEM. 2010; 96(7):1911-30. :24 URINALYSIS, W/ MICRO (65870) Comments: PATIENT WAS FASTINGPERFORMED BY: [facility] Skkujm5585 [address] [facility] [place] [id number] Microscopic Examination See below: (Normal) Comments: Microscopic was indicated and was performed. Microscopic Examination MICRON (Normal) Comments: Microscopic follows if indicated. Nitrite, Urine Negative (Normal) Urobilinogen,Semi-Qn 0.2 mg/dL (Normal) Range: 0.0-1.9 Bilirubin Negative (Normal) Occult Blood Negative (Normal) Ketones Negative (Normal) Glucose Negative (Normal) Protein Negative (Normal) WBC Esterase Negative (Normal) Appearance Clear (Normal) Urine-Color Yellow (Normal) pH 6.0 (Normal) Range: 5.0-7.5 Specific [place] 1.025 (Normal) Range: 1.005-1.030 81-Gfn-949288:24 TSH (27134) Comments: PATIENT WAS FASTINGPERFORMED BY: [employer] [facility] [id number] TSH 2.740 {uIU/mL} (Normal) Range: 0.450-4.500 55-Zow-465525:24 MICROALBUMIN: CREATININE RATIO Comments: PATIENT WAS FASTINGPERFORMED BY: [employer] [facility] [id number] (84233) AND (13258) Microalb/Creat Ratio <1.5 {mg/g_creat} (Normal) Range: 0.0-30.0 Microalbumin, Urine <3.0 ug/mL (Normal) Range: 0.0-17.0 Creatinine, Urine 205.5 mg/dL (Normal) Range: 22.0-328.0 11-Qje-673767:24 METABOLIC PANEL, COMPREHENSIVE Comments: PATIENT WAS FASTINGPERFORMED BY: Auro Mira EnergySaint Francis Medical CenterHsshsl6150 [facility] [id number] (83131) ALT (SGPT) 13 [iU]/L (Normal) Range: 0-44 [...] Glucose, Serum 138 mg/dL (Abnormal) Range: 65-99 64-Isk-476298:24 LIPID PANEL (15409) Comments: PATIENT WAS FASTINGPERFORMED BY: [employer]ideFX70 [employer] [facility] [id number] LDL/HDL Ratio 3.2 {ratio_units} (Normal) Range: 0.0-3.6 [...] Cholesterol, Total 221 mg/dL (Abnormal) Range: 100-199 29-Fyv-226455:24 CBC W/AUTO DIFF WBC Comments: PATIENT WAS FASTINGPERFORMED BY: [employer]6370 [address] [facility] [id number] Information: [id number] (76441) Immature Grans (Abs) 0.0 {x10E3/uL} (Normal) Range: [...] 4.14-5.80 WBC 5.0 {x10E3/uL} (Normal) Range: 3.4-10.8 15-Tbu-786979:00 Fecal Occult Blood , Office (78410) Fecal Occult Blood , Office (Inhouse) negative (Normal) 10-Jes-233350:57 PSA (PROSTATE SPECIFIC Comments: PATIENT NOT FASTINGPERFORMED BY: [facility]6370 [facility] [id number] Information: [id number] ANTIGEN) (V76.44) Prostate Specific Ag, 1.5 ng/mL (Normal) Range: 0.0-4.0 Serum Comments: Dee ECLIA methodology. .According to the [place] U[employer], Serum PSA shoulddecrease and remain [...] of malignant disease. :17 HgA1C , Office (38897) HgA1C , Office 7.0 % (Normal) Range: 4.6 - 7.1 :17 Blood Glucose , Office (54371) Blood Glucose , Office 118 (Normal) :50 HgA1C , Office (57741) HgA1C , Office 7.6 % (Abnormal) Range: 4.6 - 7.1 :50 Blood Glucose , Office (06232) Blood Glucose , Office 142 (Normal) :44 Microscopic Examination Comments: PATIENT WAS FASTINGPERFORMED BY: [employer]ideFX70 [facility] [id number] Bacteria None seen (Normal) Mucus Threads Present (Normal) Epithelial Cells (non renal) None seen {/hpf} (Normal) Range: 0 - 10 RBC 0-2 {/hpf} (Normal) Range: 0 - 2 WBC 0-5 {/hpf} (Normal) Range: 0 - 5 :32 URINALYSIS, W/ MICRO (29709) Comments: PATIENT WAS FASTINGPERFORMED BY: [employer]6370 [facility] [id number] Microscopic Examination See below: (Normal) Comments: Microscopic was indicated and was performed. Microscopic Examination MICRON (Normal) Comments: Microscopic follows if indicated. Nitrite, Urine Negative (Normal) Urobilinogen,Semi-Qn 0.2 mg/dL (Normal) Range: 0.0-1.9 Bilirubin Negative (Normal) Ketones Negative (Normal) Occult Blood Negative (Normal) Glucose Trace (Abnormal) Protein Negative (Normal) WBC Esterase Negative (Normal) Appearance Clear (Normal) Urine-Color Yellow (Normal) pH 6.0 (Normal) Range: 5.0-7.5 Specific [place] 1.024 (Normal) Range: 1.005-1.030 :32 MICROALBUMIN: CREATININE RATIO Comments: PATIENT WAS FASTINGPERFORMED BY: [employer] Mkkfxo5807 [facility] [id number] (22731) AND (05365) Microalb/Creat Ratio 1.3 {mg/g_creat} (Normal) Range: 0.0-30.0 Creatinine, Urine 188.3 mg/dL (Normal) Range: 22.0-328.0 Microalbumin, Urine 2.4 ug/mL (Normal) Range: 0.0-17.0 :32 TSH (31837) Comments: PATIENT WAS FASTINGPERFORMED BY: OVIA70 [facility] [id number] TSH 3.250 {uIU/mL} (Normal) Range: 0.450-4.500 :32 METABOLIC PANEL, COMPREHENSIVE Comments: PATIENT WAS FASTINGPERFORMED BY: [employer] [facility] [id number]; will review at 10/08 appt (46451) ALT (SGPT) 22 [iU]/L (Normal) Range: 0-44 [...] Glucose, Serum 152 mg/dL (Abnormal) Range: 65-99 0-Exl-127334:32 LIPID PANEL (50595) Comments: PATIENT WAS FASTINGPERFORMED BY: [employer]6370 [facility] [id number] LDL/HDL Ratio 2.0 {ratio_units} (Normal) Range: 0.0-3.6 LDL Cholesterol Calc 84 mg/dL (Normal) Range: 0-99 HDL Cholesterol 43 mg/dL (Normal) Comments: According to ATP-III Guidelines, HDL-C >59 mg/dL is considered anegative risk factor for CHD. VLDL Cholesterol Ezequiel 24 mg/dL (Normal) Range: 5-40 Triglycerides 121 mg/dL (Normal) Range: 0-149 Cholesterol, Total 151 mg/dL (Normal) Range: 100-199 :32 CBC WITH MANUAL DIFF Comments: PATIENT WAS FASTINGPERFORMED BY: Auro Mira EnergySaint Francis Medical CenterWkzkxz5513 [facility] [id number] Information: [id number] (72998) Immature Grans (Abs) 0.0 {x10E3/uL} (Normal) Range: [...] (Normal) Range: 3.4-10.8 :37 HgA1C , Office (55489) HgA1C , Office 7.1 % (Normal) Range: 4.6 - 7.1 :37 Blood Glucose , Office (89866) Blood Glucose , Office 142 (Normal) 47-Rny-246805:39 Microscopic Examination Comments: PATIENT WAS FASTINGPERFORMED BY: [employer]6370 [facility] [id number] Bacteria None seen (Normal) Mucus Threads Present (Normal) Epithelial Cells (non renal) None seen {/hpf} (Normal) Range: 0 - 10 RBC None seen {/hpf} (Normal) Range: 0 - 3 WBC 0-5 {/hpf} (Normal) Range: 0 - 5 :13 Vitamin D Hydroxy (42691) Comments: PATIENT WAS FASTINGPERFORMED BY: [employer]ysideFX70 [facility]-PAX PharmaceuticalsSelect [facility] [id number] Vitamin D, 25-Hydroxy 35.9 ng/mL (Normal) Range: 30.0-100.0 Comments: Vitamin D deficiency has been defined by the [place] of[place]icine and an Endocrine Society practice guideline as alevel of serum 25-OH vitamin D less than 20 ng/mL (1,2).The Endocrine Society went on to further define vitamin Dinsufficiency as a level between 21 and 29 ng/mL (2).1. IOM ([place] of Medicine). 2010. Dietary reference intakes for calcium and D. [place]: The National Academies Press.2. Charles MF, Raissa OCONNELL, Nirmala ALBERT, et al. Evaluation, treatment, and prevention of vitamin D deficiency: an Endocrine Society clinical practice guideline. JCEM. 2010; 96(7):1911-30. :13 TSH (33279) Comments: PATIENT WAS FASTINGPERFORMED BY: [employer] [place] [id number] TSH 4.190 {uIU/mL} (Normal) Range: 0.450-4.500 :13 URINALYSIS, W/ MICRO (59523) Comments: PATIENT WAS FASTINGPERFORMED BY: [facility] GroupCape [facility] [id number] Microscopic Examination MICRON (Normal) Comments: Microscopic follows if indicated. Microscopic Examination See below: (Normal) Nitrite, Urine Negative (Normal) Urobilinogen,Semi-Qn 0.2 mg/dL (Normal) Range: 0.0-1.9 Bilirubin Negative (Normal) Occult Blood Negative (Normal) Ketones Negative (Normal) Glucose Negative (Normal) Protein Negative (Normal) Appearance Clear (Normal) WBC Esterase Negative (Normal) Urine-Color Yellow (Normal) pH 7.0 (Normal) Range: 5.0-7.5 Specific [place] 1.023 (Normal) Range: 1.005-1.030 :13 MICROALBUMIN: CREATININE RATIO Comments: PATIENT WAS FASTINGPERFORMED BY: BuysideFX70 [facility] EventsC[facility] [id number] (84554) AND (97146) Microalb/Creat Ratio 1.4 {mg/g_creat} (Normal) Range: 0.0-30.0 Creatinine, Urine 177.1 mg/dL (Normal) Range: 22.0-328.0 Microalbumin, Urine 2.5 ug/mL (Normal) Range: 0.0-17.0 :13 METABOLIC PANEL, COMPREHENSIVE Comments: PATIENT WAS FASTINGPERFORMED BY: [employer] Sgupnl8251 [facility] [id number] (13963) ALT (SGPT) 17 [iU]/L (Normal) Range: 0-44 [...] mg/dL (Abnormal) Range: 65-99 :13 LIPID PANEL (35966) Comments: PATIENT WAS FASTINGPERFORMED BY: OVIA70 [facility] [id number] LDL/HDL Ratio 1.8 {ratio_units} (Normal) Range: 0.0-3.6 LDL Cholesterol Calc 86 mg/dL (Normal) Range: 0-99 VLDL Cholesterol Ezequiel 18 mg/dL (Normal) Range: 5-40 HDL Cholesterol 48 mg/dL (Normal) Comments: According to ATP-III Guidelines, HDL-C >59 mg/dL is considered anegative risk factor for CHD. Triglycerides 92 mg/dL (Normal) Range: 0-149 Cholesterol, Total 152 mg/dL (Normal) Range: 100-199 27-Ejx-55573:13 CBC WITH MANUAL DIFF Comments: PATIENT WAS FASTINGPERFORMED BY: LabCoSaint Francis Medical CenterNjuumi8211 [facility] [id number] Information: [id number] (87273) Immature Grans (Abs) 0.0 {x10E3/uL} (Normal) Range: [...] (Normal) Range: 3.4-10.8 :31 HgA1C , Office (44391) HgA1C , Office 6.7 % (Normal) Range: 4.6 - 7.1 :31 Blood Glucose , Office (53699) Blood Glucose , Office 141 (Normal) :55 HgA1C , Office (14202) HgA1C , Office 6.4 % (Normal) Range: 4.6 - 7.1 :55 Blood Glucose , Office (03610) Blood Glucose , Office 116 (Normal) :33 Microscopic Examination Comments: PATIENT WAS FASTINGPERFORMED BY: [facility] GroupC[facility] [id number] Bacteria None seen (Normal) Mucus Threads Present (Normal) Epithelial Cells (non renal) None seen {/hpf} (Normal) Range: 0 - 10 RBC 0-3 {/hpf} (Normal) Range: 0 - 3 WBC 0-5 {/hpf} (Normal) Range: 0 - 5 :33 PSA (PROSTATE SPECIFIC Comments: PATIENT WAS FASTINGPERFORMED BY: [employer]6370 [facility] EventsC[facility] [id number] ANTIGEN) (V76.44) Prostate Specific Ag, 1.5 ng/mL (Normal) Range: 0.0-4.0 Serum Comments: Dee ECLIA methodology. .According to the [place] U[employer] Association, Serum PSA shoulddecrease and remain at undetectable levels after radicalprostatectomy. The AUA defines biochemical recurrence as an initialPSA value 0.2 ng/mL or greater followed by a subsequent confirmatoryPSA value 0.2 ng/mL or greater.Values obtained with d ifferent assay methods or kits cannot be usedinterchangeably. Results cannot be interpreted as absolute evidenceof the presence or absence of malignant disease. :33 TSH (38729) Comments: PATIENT WAS FASTINGPERFORMED BY: [employer] Ohxwzk3836 [address] Wenjuan.comblin [place] [id number] TSH 2.770 {uIU/mL} (Normal) Range: 0.450-4.500 :33 URINALYSIS, W/ MICRO (95685) Comments: PATIENT WAS FASTINGPERFORMED BY: MovidiusSaint Francis Medical CenterAxggiq6423 [facility] [id number] Microscopic Examination See below: (Normal) Microscopic Examination MICRON (Normal) Comments: Microscopic follows if indicated. Nitrite, Urine Negative (Normal) Urobilinogen,Semi-Qn 0.2 mg/dL (Normal) Range: 0.0-1.9 Bilirubin Negative (Normal) Occult Blood Negative (Normal) Ketones Negative (Normal) Glucose Negative (Normal) Protein Negative (Normal) WBC Esterase Negative (Normal) Appearance Clear (Normal) Urine-Color Yellow (Normal) pH 6.0 (Normal) Range: 5.0-7.5 Specific [place] 1.026 (Normal) Range: 1.005-1.030 63-Qam-958774:33 MICROALBUMIN: CREATININE RATIO Comments: PATIENT WAS FASTINGPERFORMED BY: [employer] Cmfsqi9094 [facility] [id number] (38437) AND (29988) Microalb/Creat Ratio 1.8 {mg/g_creat} (Normal) Range: 0.0-30.0 Microalbumin, Urine 3.6 ug/mL (Normal) Range: 0.0-17.0 Creatinine, Urine 203.4 mg/dL (Normal) Range: 22.0-328.0 56-Zpw-206969:33 METABOLIC PANEL, COMPREHENSIVE Comments: PATIENT WAS FASTINGPERFORMED BY: MovidiusSaint Francis Medical CenterPolcnp2200 [facility] [id number] (31672) ALT (SGPT) 16 [iU]/L (Normal) Range: 0-44 [...] Glucose, Serum 114 mg/dL (Abnormal) Range: 65-99 67-Nms-995023:33 LIPID PANEL (43671) Comments: PATIENT WAS FASTINGPERFORMED BY: [employer]70 [address] [facility] [id number] LDL/HDL Ratio 1.3 {ratio_units} (Normal) Range: 0.0-3.6 LDL Cholesterol Calc 63 mg/dL (Normal) Range: 0-99 VLDL Cholesterol Ezequiel 25 mg/dL (Normal) Range: 5-40 HDL Cholesterol 47 mg/dL (Normal) Comments: According to ATP-III Guidelines, HDL-C >59 mg/dL is considered anegative risk factor for CHD. Triglycerides 123 mg/dL (Normal) Range: 0-149 Cholesterol, Total 135 mg/dL (Normal) Range: 100-199 81-Bdi-563728:33 CBC WITH MANUAL DIFF Comments: PATIENT WAS FASTINGPERFORMED BY: Auro Mira EnergySaint Francis Medical CenterBxlykk1976 [facility] [id number] Information: [id number] (39313) Immature Grans (Abs) 0.0 {x10E3/uL} (Normal) Range: [...] (Normal) Range: 4.0-10.5 :22 HgA1C , Office (33601) HgA1C , Office 6.3 % (Normal) Range: 4.6 - 7.1 :22 Blood Glucose , Office (62382) Blood Glucose , Office 109 (Normal) :49 ALDOS 9.3 ng/dL (Normal) Range: 0.0-30.0 :49 CATU tDOP24 674 Range: 0-510 {ug/24_hr} Comments: TESTING PERFORMED AT [facility]. ORIGINAL REPORT ONFILE IN LAB CONTAINS ADDITIONAL [...] metanephrines and plasma catecolamines. TESTING PERFORMED AT [facility]. ORIGINAL REPORT ONFILE IN LAB CONTAINS ADDITIONAL TEST SITE INFORMATION. a y - 2 0 1 3 9 : 4 9 2 [place] 1.86 Comments: Adult Normal SaltIntake:Upright 1.31 - 3.95Supine 0.15 - 2.33.Salt Excretion(Na mEq/24 hr):Na= 0 - 30 8.82 - 23.86Na= 30 - 75 4.09 - 7.73Na= 75 - 150 1.44 - 2.80Na= 0 {ng/mL/hr} >150 0.39 - 1.31Performed at: - [facility] [id number] Director: Bruno Williamson MD, Phone: [phone] - (Normal) Pam car y - 2 0 1 3 9 : 4 9 :49 VMA tVMA24 4.6 {mg/24_hr} (Normal) Range: 0.0-7.5 tVMA 2.2 mg/L (Normal) :15 BMP CO2 30.0 mmol/L (Normal) Range: 21.0-32.0 [...] 126 mg/dLsuggests DIABETES MELLITUS per A.D.A. criteria. 62-Xek-683406:15 CBCD ANC 3.6 3/uL (Normal) Range: 2.0-7.7 [...] 4.6-6.2 WBC 6.4 {k/mm3} (Normal) Range: 4.4-11.0 90-Tik-63431:00 BRAIN W/WO CONTRAST Radiology Report See Note [...] Stauffer M.D.August 08, 2012 at 10:05:25 PM [id number] Signed AH/AH If you are the referring physician and would like to consult with theradiologist who provided this interpretation, please contact Roseanne Mast. at [phone]. If this radiologist is unavailable,you will be directed to another radiologist to assist. If you are a patient with a question regarding this report, pleasecontactyour referring physician directly . Professional Interpretation Provided By: [employer], Phone , These documents contain legally protected [...] on 08/08/122207 Sign by: MIKHAIL STAUFFER MD 69-Hms-266816:32 BRAIN/HEAD WITHOUT CONTRAST Radiology Report See Note [...] Fontenot M.D.August 04, 2012 at 5:16:58 PM [id number] Signed DN/DN If you are the referring physician and would like to consult with theradiologist who pro vided this interpretation, please contact Heather Ng M.D. at [phone]. If this radiologist is unavailable, youwillbe directed to another radiologist to assist. If you are a patient with a quest ion regarding this report, pleasecontactyour referring physician directly. Professional Interpretation Provided By: [employer], Phone , These documents contain legally pro tected and confidential healthinformation intended only for the use of the individual or entity namedabove. If you are not the intended recipient, you are hereby notifiedthatany disclosure, copying, dis tribution, or other use of these documents isstrictly prohibited. If you have received this information in error,pleasenotify the sender immediately and arrange for the return or destructionofthese [facility] ments. Dictated on 08/04/12 1645 by HEATHER FONTENOT MD RTranscribed on 08/04/121717 by ITS IMPORTSign by HEATHER FONTENOT MD on 08/04/121718 Sign by: ___ HEATHER FONTENOT MD 37-Zqx-336587:36 CBCD ANC 4.1 3/uL (Normal) Range: 2.0-7.7 [...] 4.6-6.2 WBC 6.2 {k/mm3} (Normal) Range: 4.4-11.0 8-Jqp-682031:57 METABOLIC PANEL, Comments: PATIENT NOT FASTINGPERFORMED BY: LabCoSaint Francis Medical CenterUjybyw4143 [facility] [id number] Information: [id number] COMPREHENSIVE (50126) ALT (SGPT) 13 [iU]/L (Normal) Range: 0-44 [...] (Normal) Range: 65-99 :01 HgA1C , Office (83955) HgA1C , Office 6.2 % (Normal) Range: 4.6 - 7.1 :01 Blood Glucose , Office (45769) Blood Glucose , Office 89 (Normal) :48 Microscopic Examination Comments: PATIENT WAS FASTINGPERFORMED BY: OVIA70 [facility] [id number] Bacteria Few (Normal) Mucus Threads Present (Normal) Epithelial Cells (non renal) None seen {/hpf} (Normal) Range: 0 - 10 RBC 0-3 {/hpf} (Normal) Range: 0 - 3 WBC 0-5 {/hpf} (Normal) Range: 0 - 5 :48 TSH (53874) Comments: PATIENT WAS FASTINGPERFORMED BY: [employer] Fbvvai4104 [facility] [id number] TSH 5.340 {uIU/mL} (Abnormal) Range: 0.450-4.500 :48 URINALYSIS, W/ MICRO (96410) Comments: PATIENT WAS FASTINGPERFORMED BY: MovidiusSaint Francis Medical CenterZqlkda1362 [facility] [id number] Microscopic Examination See below: (Normal) Microscopic Examination MICRON (Normal) Comments: Microscopic follows if indicated. Bilirubin Negative (Normal) Nitrite, Urine Negative (Normal) Urobilinogen,Semi-Qn 0.2 mg/dL (Normal) Range: 0.0-1.9 Occult Blood Negative (Normal) Ketones Negative (Normal) Glucose Negative (Normal) Protein Negative (Normal) WBC Esterase Negative (Normal) Appearance Clear (Normal) pH 5.5 (Normal) Range: 5.0-7.5 Urine-Color Yellow (Normal) Specific [place] 1.028 (Normal) Range: 1.005-1.030 :48 MICROALBUMIN: CREATININE RATIO Comments: PATIENT WAS FASTINGPERFORMED BY: [employer] Yktvnu5671 [facility] [id number] (30572) AND (49550) Microalb/Creat Ratio 1.6 {mg/g_creat} (Normal) Range: 0.0-30.0 Creatinine, Urine 195.7 mg/dL (Normal) Range: 22.0-328.0 Microalbumin, Urine 3.2 ug/mL (Normal) Range: 0.0-17.0 :48 METABOLIC PANEL, COMPREHENSIVE Comments: PATIENT WAS FASTINGPERFORMED BY: Auro Mira EnergySaint Francis Medical CenterLhciqk4165 [facility] [id number] (01094) ALT (SGPT) 16 [iU]/L (Normal) Range: 0-44 [...] mg/dL (Normal) Range: 65-99 :48 LIPID PANEL (98684) Comments: PATIENT WAS FASTINGPERFORMED BY: [employer]ysideFX70 [facility] [id number] LDL Cholesterol Calc 97 mg/dL (Normal) Range: [...] MANUAL DIFF Comments: PATIENT WAS FASTINGPERFORMED BY: Auro Mira EnergySaint Francis Medical CenterEjofgc8529 [facility] [id number] Information: [id number] (71188) Immature Grans (Abs) 0.0 {x10E3/uL} (Normal) Range: [...] (Normal) Range: 4.0-10.5 :46 HgA1C , Office (99815) HgA1C , Office 6.1 % (Normal) Range: 4.6 - 7.1 :46 Blood Glucose , Office (26074) Blood Glucose , Office 91 (Normal) 6-Pay-479064:25 HEPATOBILLIARY IMG W/PHARM INT Radiology Report See [...] Cholecystokinin (0.02 ug/kg) was administered intravenously over m73-atcdph period. The post CCK gallbladder ejection fraction xawekfocshgr38 minutes following Cholecystokinin administration was noted to [...] cystic duct syndrome) to be low. (Sandy Juan et al,Journal of Nuclear Medicine 32:1695, 1990). 2. 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 35, 1980). Signed:Aamir Richmond M.D.December 24, 2011 at 8:34:10 PM [id number] S igned RB/RB If you are the referring physician and would like to consult with theradiologist who provided this interpretation, please contact Chad Aragon at [phone]. If this radiologist is un available, you will bedirected to another radiologist to assist. If you are a patient with a question regarding this report, pleasecontactyour referring physician directly. Professional Interpretation P rovided By: [employer], Phone , These documents contain legally protected [...] on 12/24/112116 Sign by: Aamir Richmond DO 78-Tzq-77314:56 GALLBLADDER Radiology Report See Note (Normal) Comments: [...] size of the right kidney. The right qwcvvzxyjtztss27.6 cm. Normal rolando al cortex. The right cortex measures 1.8 cm. Thereisno demonstrated renal mass or cyst. There is no right hydronephrosis. IMPRESSION:Sludge in the gallbladder lumen, with a thickened gallbladder wall .Correlation with nuclear medicine hepatobiliary scan is recommended. Signed:Jakob Hunt M.D.December 18, 2011 at 11:00:05 AM [id number] Signed GP/GP If you are the referring physician and would like to consult with theradiologist who provided this interpretation, please contact Chad Lao at [phone]. If this radiologist is unavailable, youwill be directed to another radiologist to assist. If you are a patient with a question regarding this report, pleasecontactyour referring physician directly. Professional Interpretation Provided By: [employer], Phone , These documents contain legally protected [...] the return or destructionofthese documents. Dictated on 12/18/11 0940 by Gilbert YANG,Adrianaranscribed on 12/18/11 1117 by ITS IMPORTSign by Jakob Hunt MD 12/18/11 1118 Sign by: Jakob Hunt MD :41 HgA1C , Office (27464) HgA1C , Office 6.2 % (Normal) Range: 4.6 - 7.1 :41 Blood Glucose , Office (23784) Blood Glucose , Office 115 (Normal) :37 HgA1C , Office (48481) HgA1C , Office 6.4 % (Normal) Range: 4.6 - 7.1 :37 Blood Glucose , Office (06273) Blood Glucose , Office 119 (Normal) :44 PSA (PROSTATE SPECIFIC Comments: PATIENT WAS FASTINGPERFORMED BY: LabMcl[facility] Hospital6370 [facility] [id number] ANTIGEN) (V76.44) Prostate Specific Ag, 1.7 ng/mL (Normal) Range: 0.0-4.0 Serum Comments: Dee ECLIA methodology. .According to the [place] [employer], Serum PSA shoulddecrease and remain at undetectable levels after radicalprostatectomy. The AUA defines biochemical recurrence as an initialPSA value 0.2 ng/mL or greater followed by a subsequent confirmatoryPSA value 0.2 ng/mL or greater.Values obtained with d ifferent assay methods or kits cannot be usedinterchangeably. Results cannot be interpreted as absolute evidenceof the presence or absence of malignant disease. :44 TSH (60393) Comments: PATIENT WAS FASTINGPERFORMED BY: Ethics Resource GroupCape [facility] [id number] TSH 2.660 {uIU/mL} (Normal) Range: 0.450-4.500 :44 URINALYSIS, W/ MICRO (63767) Comments: PATIENT WAS FASTINGPERFORMED BY: Ethics Resource GroupCape [facility] [id number] Microscopic Examination See below: (Normal) Microscopic Examination MICRON (Normal) Comments: Microscopic follows if indicated. Nitrite, Urine Negative (Normal) Urobilinogen,Semi-Qn 0.2 mg/dL (Normal) Range: 0.0-1.9 Bilirubin Negative (Normal) Occult Blood Negative (Normal) Ketones Negative (Normal) Glucose Negative (Normal) Protein Negative (Normal) WBC Esterase Negative (Normal) Appearance Clear (Normal) Urine-Color Yellow (Normal) pH 6.0 (Normal) Range: 5.0-7.5 Specific [place] 1.024 (Normal) Range: 1.005-1.030 :44 MICROALBUMIN: CREATININE RATIO Comments: PATIENT WAS FASTINGPERFORMED BY: BuysideFX70 Kapow EventsCape Fear Valley Bl[facility] [id number] ([id number]) AND (05739) Microalb/Creat Ratio 1.1 {mg/g_creat} (Normal) Range: 0.0-30.0 Microalbumin, Urine 3.2 ug/mL (Normal) Range: 0.0-17.0 Creatinine, Urine 294.1 mg/dL (Normal) Range: 22.0-328.0 :44 Microscopic Examination Comments: PATIENT WAS FASTINGPERFORMED BY: CloudSpongeDublin [place] [id number] Bacteria None seen (Normal) Mucus Threads Present (Normal) Epithelial Cells (non renal) None seen {/hpf} (Normal) Range: 0 - 10 RBC 0-3 {/hpf} (Normal) Range: 0 - 3 WBC 0-5 {/hpf} (Normal) Range: 0 - 5 9-Ocp-593321:44 METABOLIC PANEL, COMPREHENSIVE Comments: PATIENT WAS FASTINGPERFORMED BY: GUICHO TeamVisibility6370 [facility] [id number] ([id number]) ALT (SGPT) 21 [iU]/L (Normal) Range: 0-55 [...] Glucose, Serum 119 mg/dL (Abnormal) Range: 65-99 2-Aqx-933660:44 LIPID PANEL (12666) Comments: PATIENT WAS FASTINGPERFORMED BY: GUICHO OVIA70 [facility] [id number] LDL/HDL Ratio 1.2 {ratio_units} (Normal) Range: 0.0-3.6 LDL Cholesterol Calc 63 mg/dL (Normal) Range: 0-99 VLDL Cholesterol Ezequiel 20 mg/dL (Normal) Range: 5-40 HDL Cholesterol 52 mg/dL (Normal) Comments: According to ATP-III Guidelines, HDL-C >59 mg/dL is considered anegative risk factor for CHD. Triglycerides 100 mg/dL (Normal) Range: 0-149 Cholesterol, Total 135 mg/dL (Normal) Range: 100-199 7-Jxy-872835:44 CBC WITH MANUAL DIFF Comments: PATIENT WAS FASTINGPERFORMED BY: Movidius Ldmbyc0724 [facility] [id number] Information: [id number] (93703) Immature Grans (Abs) 0.0 {x10E3/uL} (Normal) Range: [...] (Normal) Range: 4.0-10.5 :25 HgA1C , Office (28898) HgA1C , Office 6.2 % (Normal) Range: 4.6 - 7.1 :25 Blood Glucose , Office (56929) Blood Glucose , Office 84 (Normal) :56 Blood Glucose , Office (30762) Blood Glucose , Office 96 (Normal) 3-Ljo-873109:29 SPINE, LUMBAR (ROUTINE) Radiology Report See Note [...] on 02/23/11 1355 by ITS IMPORTSign by CORIE YANGHEATHER R on 02/23/11 1356 Sign by: CORIE AYNGHEATHER :08 HgA1C , Office (70496) HgA1C , Office 6.3 % (Normal) Range: 4.6 - 7.1 :08 Blood Glucose , Office (93929) Blood Glucose , Office 108 (Normal) :50 URINALYSIS, W/ MICRO (64207) Comments: PATIENT WAS FASTINGPERFORMED BY: Ethics Resource GroupCutefund [place] [id number] Microscopic Examination See below: (Normal) Microscopic Examination MICRON (Normal) Comments: Microscopic follows if indicated. Nitrite, Urine Negative (Normal) Urobilinogen,Semi-Qn 0.2 mg/dL (Normal) Range: 0.0-1.9 Bilirubin Negative (Normal) Occult Blood Negative (Normal) Ketones Negative (Normal) Glucose Negative (Normal) Protein Negative (Normal) WBC Esterase Negative (Normal) Appearance Clear (Normal) Urine-Color Yellow (Normal) pH 5.5 (Normal) Range: 5.0-7.5 Specific [place] 1.022 (Normal) Range: 1.005-1.030 :50 MICROALBUMIN: CREATININE RATIO Comments: PATIENT WAS FASTINGPERFORMED BY: BuysideFX70 Kapow EventsCape Fear [facility] [id number] ([id number]) AND (24090) Microalb/Creat Ratio <.6 {mg/g_creat} (Normal) Range: 0.0-30.0 Creatinine, Urine 163.1 mg/dL (Normal) Range: 22.0-328.0 Microalbumin, Urine <1.0 ug/mL (Normal) Range: 0.0-17.0 Comments: Verified by repeat analysis :50 METABOLIC PANEL, COMPREHENSIVE Comments: PATIENT WAS FASTINGPERFORMED BY: Auro [employer] Vwmfee9986 Kapow EventsCape Fear [facility] [id number] (32813) ALT (SGPT) 16 [iU]/L (Normal) Range: 0-55 [...] mg/dL (Abnormal) Range: 65-99 :50 LIPID PANEL (82519) Comments: PATIENT WAS FASTINGPERFORMED BY: LabCoSaint Francis Medical CenterVnxort3512 [facility] [id number] LDL Cholesterol Calc 68 mg/dL (Normal) Range: 0-99 LDL/HDL Ratio 1.5 {ratio_units} (Normal) Range: 0.0-3.6 HDL Cholesterol 46 mg/dL (Normal) Comments: According to ATP-III Guidelines, HDL-C >59 mg/dL is considered anegative risk factor for CHD. VLDL Cholesterol Ezequiel 23 mg/dL (Normal) Range: 5-40 Triglycerides 115 mg/dL (Normal) Range: 0-149 Cholesterol, Total 137 mg/dL (Normal) Range: 100-199 29-Nov-20108:50 CBC WITH MANUAL DIFF Comments: PATIENT WAS FASTINGPERFORMED BY: LabM[facility] Hospital6370 [facility] [id number] Information: [id number] (63101) Immature Grans (Abs) 0.0 {x10E3/uL} (Normal) Range: [...] Microscopic Examination Comments: PATIENT WAS FASTINGPERFORMED BY: Movidius Jpabgj2104 [facility] [id number] Bacteria Few (Normal) Mucus Threads Present (Normal) Epithelial Cells (non renal) None seen {/hpf} (Normal) Range: 0 - 10 RBC None seen {/hpf} (Normal) Range: 0 - 3 WBC 0-5 {/hpf} (Normal) Range: 0 - 5 :58 HgA1C , Office (52002) HgA1C , Office 6.0 % (Normal) Range: 4.6 - 7.1 :58 Blood Glucose , Office (38951) Blood Glucose , Office 93 (Normal) :13 PSA (PROSTATE SPECIFIC Comments: PATIENT NOT FASTINGPERFORMED BY: Movidius Silgmk5991 [facility] [id number] Information: [id number] ANTIGEN) (V76.44) Prostate Specific Ag, 1.5 ng/mL (Normal) Range: 0.0-4.0 Serum Comments: Dee ECLIA methodology. .According to the [place] [employer], Serum PSA shoulddecrease and remain [...] of malignant disease. :16 HgA1C , Office (76985) HgA1C , Office 6.2 % (Normal) Range: 4.6 - 7.1 :16 Blood Glucose , Office (30651) Blood Glucose , Office 196 (Normal) :15 TSH (72138) Comments: PATIENT WAS FASTINGPERFORMED BY: Movidius Ykxylt3889 [facility] [id number] TSH 3.200 {uIU/mL} (Normal) Range: 0.450-4.500 4-Dgy-682774:15 MICROALBUMIN: CREATININE RATIO Comments: PATIENT WAS FASTINGPERFORMED BY: MovidiusSaint Francis Medical CenterItoato5837 [facility] [id number] (50075) AND (85792) Creatinine, Urine 168.7 mg/dL (Normal) Range: 22.0-328.0 Microalb/Creat Ratio 1.5 {mg/g_creat} (Normal) Range: 0.0-30.0 Microalbumin, Urine 2.5 ug/mL (Normal) Range: 0.0-17.0 2-Wvz-837108:15 METABOLIC PANEL, COMPREHENSIVE Comments: PATIENT WAS FASTINGPERFORMED BY: Auto I.D. Xfbpoy0079 [facility] [id number] (82971) A/G Ratio 1.8 (Normal) Range: 1.1-2.5 Alkaline [...] Glucose, Serum 108 mg/dL (Abnormal) Range: 65-99 8-Qgf-151661:15 LIPID PANEL (48796) Comments: PATIENT WAS FASTINGPERFORMED BY: [employer]6370 [facility] [id number] LDL/HDL Ratio 1.8 {ratio_units} (Normal) Range: 0.0-3.6 HDL Cholesterol 49 mg/dL (Normal) Comments: According to ATP-III Guidelines, HDL-C >59 mg/dL is considered anegative risk factor for CHD. LDL Cholesterol Calc 86 mg/dL (Normal) Range: 0-99 VLDL Cholesterol Ezequiel 25 mg/dL (Normal) Range: 5-40 Cholesterol, Total 160 mg/dL (Normal) Range: 100-199 Triglycerides 123 mg/dL (Normal) Range: 0-149 6-Gis-976907:15 CBC WITH MANUAL DIFF Comments: PATIENT WAS FASTINGPERFORMED BY: [employer]6370 [facility] [id number] Information: [id number] (77269) Immature Grans (Abs) 0.0 {x10E3/uL} (Normal) Range: [...] (Normal) Range: 4.0-10.5 :53 HgA1C , Office (75707) HgA1C , Office 6.3 % (Normal) Range: 4.6 - 7.1 :53 Blood Glucose , Office (49090) Blood Glucose , Office 123 (Normal) :51 HgA1C , Office (28316) HgA1C , Office 6.2 % (Normal) Range: 4.6 - 7.1 :51 Blood Glucose , Office (80323) Blood Glucose , Office 93 (Normal) 39-Mgi-899751:01 Microscopic Examination Comments: PATIENT WAS FASTINGPERFORMED BY: CloudSpongeSelect [facility] [id number] Bacteria Few (Normal) Mucus Threads Present (Normal) Epithelial Cells (non renal) None seen {/hpf} (Normal) Range: 0 - 10 RBC 0-3 {/hpf} (Normal) Range: 0 - 3 WBC 0-5 {/hpf} (Normal) Range: 0 - 5 53-Fks-685454:01 PSA (PROSTATE SPECIFIC Comments: PATIENT WAS FASTINGPERFORMED BY: Ethics Resource GroupCape [facility] [id number] ANTIGEN) (V76.44) Prostate Specific Ag, 1.4 ng/mL (Normal) Range: 0.0-4.0 Serum Comments: Dee ECLIA methodology..According to the [place] [employer], Serum PSA shoulddecrease and remain at undetectable levels after radicalprostatectomy. The AUA defines biochemical recurrence a s an initialPSA value 0.2 ng/mL or greater followed by a subsequent confirmatoryPSA value 0.2 ng/mL or greater.Values obtained with different assay methods or kits cannot be usedinterchangeably. Results cannot be interpreted as absolute evidenceof the presence or absence of malignant disease. 17-Nxc-090858:01 TSH (35157) Comments: PATIENT WAS FASTINGPERFORMED BY: Ethics Resource GroupC[facility] [id number] TSH 3.670 {uIU/mL} (Normal) Range: 0.450-4.500 : URINALYSIS, W/ MICRO (61861) Comments: PATIENT WAS FASTINGPERFORMED BY: Ethics Resource GroupCape [facility] [id number] Microscopic Examination See below: (Normal) Bilirubin Negative (Normal) Microscopic Examination MICRON (Normal) Comments: Microscopic follows if indicated. Nitrite, Urine Negative (Normal) Urobilinogen,Semi-Qn 0.2 mg/dL (Normal) Range: 0.0-1.9 Glucose Negative (Normal) Ketones Negative (Normal) Occult Blood Negative (Normal) Protein Negative (Normal) WBC Esterase Negative (Normal) Appearance Clear (Normal) pH 6.0 (Normal) Range: 5.0-7.5 Specific [place] 1.024 (Normal) Range: 1.005-1.030 Urine-Color Yellow (Normal) 77-Jfv-860716:01 MICROALBUMIN: CREATININE RATIO Comments: PATIENT WAS FASTINGPERFORMED BY: Ethics Resource GroupC[facility] [id number] (07202) AND (16970) Microalb/Creat Ratio <.4 {mg/g_creat} (Normal) Range: 0.0-30.0 Microalbumin, Urine <1.0 ug/mL (Normal) Range: 0.0-17.0 Creatinine, Urine 226.9 mg/dL (Normal) Range: 22.0-328.0 :01 METABOLIC PANEL, COMPREHENSIVE Comments: PATIENT WAS FASTINGPERFORMED BY: GUICHO Auto I.D. Biwghh7181 [facility] [id number] (22080) A/G Ratio 2.0 (Normal) Range: 1.1-2.5 Alkaline [...] Glucose, Serum 93 mg/dL (Normal) Range: 65-99 56-Tvw-870583:01 LIPID PANEL (30569) Comments: PATIENT WAS FASTINGPERFORMED BY: GUICHO LabCoSaint Francis Medical CenterVswkkv2789 [facility] [id number] HDL Cholesterol 46 mg/dL (Normal) Comments: According to ATP-III Guidelines, HDL-C >59 mg/dL is considered anegative risk factor for CHD. LDL Cholesterol Calc 70 mg/dL (Normal) Range: 0-99 LDL/HDL Ratio 1.5 {ratio_units} (Normal) Range: 0.0-3.6 VLDL Cholesterol Ezequiel 18 mg/dL (Normal) Range: 5-40 Cholesterol, Total 134 mg/dL (Normal) Range: 100-199 Triglycerides 89 mg/dL (Normal) Range: 0-149 27-Ezp-112751:01 CBC WITH MANUAL DIFF Comments: PATIENT WAS FASTINGPERFORMED BY: MovidiusSaint Francis Medical CenterZbbjlr4331 [facility] [id number] Information: [id number] (70080) Baso (Absolute) 0.0 {x10E3/uL} (Normal) Range: 0.0-0.2 [...] (Normal) Range: 4.0-10.5 :59 HgA1C , Office (62679) HgA1C , Office 6.6 % (Normal) Range: 4.6 - 7.1 :59 Blood Glucose , Office (03780) Blood Glucose , Office 105 (Normal) :29 HgA1C , Office (08546) Comments: done km HgA1C , Office 7.2 % (Abnormal) Range: 4.6 - 7.1 :29 Blood Glucose , Office (15463) Comments: done km Blood Glucose , Office 134 (Normal) :04 HgA1C , Office (98538) Comments: done km HgA1C , Office 6.7 % (Normal) Range: 4.6 - 7.1 :04 Blood Glucose , Office (89320) Comments: done Blood Glucose , Office 141 (Normal) :27 TSH (39304) Comments: PATIENT WAS FASTINGPERFORMED BY: Auro Mira EnergySaint Francis Medical CenterZuorkl5157 [facility] [id number] TSH 3.740 {uIU/mL} (Normal) Range: 0.450-4.500 :27 METABOLIC PANEL, COMPREHENSIVE Comments: PATIENT WAS FASTINGPERFORMED BY: Auro Mira EnergyValerie V[place] 1217270 [facility] [id number] (24508) A/G Ratio 1.7 (Normal) Range: 1.1-2.5 Albumin, [...] Sodium, Serum 141 mmol/L (Normal) Range: 135-145 25-Oct-20089:27 LIPOPROTEIN, BLD, BY NMR (63416) Comments: PATIENT WAS FASTINGClinical Information: ADD [id number], [id number] PERFORMED BY: LabM[facility] Hospital6370 [facility] [id number] Cholesterol, Total 149 mg/dL (Normal) HDL-C 41 [...] mg/dL (Normal) 25-Oct-20089:27 CBC WITH MANUAL DIFF (94695) Comments: PATIENT WAS FASTINGPERFORMED BY: LabCoSaint Francis Medical CenterEwukvq6865 [facility] [id number] Baso (Absolute) 0.0 {x10E3/uL} (Normal) Range: 0.0-0.2 [...] 11.7-15.0 WBC 4.7 {x10E3/uL} (Normal) Range: 4.0-10.5 3-Aug-02447:55 HgA1C , Office (90570) Comments: done km HgA1C , Office 5.9 % (Normal) Range: 4.6 - 7.1 :55 Blood Glucose , Office (29015) Comments: done km Blood Glucose , Office 115 (Normal) 84-Qda-606538:10 TSH (36386) Comments: REpeat first week in September; PATIENT NOT FASTINGClinical Information: ADD DRAW FEE 106701 ADD J [id number] PERFORMED BY: BuysideFX70 Rosado WelzooSelect Specialty Hospital [facility] [id number] TSH 3.800 {uIU/mL} (Normal) Range: 0.450-4.500 60-Axt-895547:48 TSH (83157) Comments: PATIENT WAS FASTINGPERFORMED BY: BuysideFX70 Rosado [facility]-PontiacClavisterCape [facility] [id number] TSH 4.538 {uIU/mL} (Abnormal) Range: 0.450-4.500 03-Pyp-986258:48 MICROALBUMIN: CREATININE RATIO Comments: PATIENT WAS FASTINGPERFORMED BY: BuysideFX70 RosadoSaint Francis Medical Center [id number] (03561) AND (86691) Creatinine, Urine 370.1 mg/dL (Abnormal) Range: 22.0-328.0 Microalb/Creat Ratio 1.0 {ug/mg_creat} (Normal) Range: 0.0-30.0 Microalbumin, Urine 3.7 ug/mL (Normal) Range: 0.0-17.0 84-Lco-133062:48 METABOLIC PANEL, COMPREHENSIVE Comments: PATIENT WAS FASTINGPERFORMED BY: BuysideFX70 RosadoSaint Francis Medical Center [id number] (76117) A/G Ratio 1.6 (Normal) Range: 1.1-2.5 Albumin, [...] Sodium, Serum 140 mmol/L (Normal) Range: 135-145 28-Yly-744779:48 CBC WITH MANUAL DIFF (44785) Comments: PATIENT WAS FASTINGClinical Information: ADD DRAW FEE [id number] ADD J [id number] PERFORMED BY: LabCoSaint Francis Medical CenterPmsobe4689 [facility] [id number] Baso (Absolute) 0.0 {x10E3/uL} (Normal) Range: 0.0-0.2 [...] 11.7-15.0 WBC 6.1 {x10E3/uL} (Normal) Range: 4.0-10.5 :48 LIPID PANEL (81700) Comments: PATIENT WAS FASTINGPERFORMED BY: LabCoSaint Francis Medical CenterIqvryb7952 [facility] [id number] Cholesterol, Total 171 mg/dL (Normal) Range: 100-199 HDL Cholesterol 45 mg/dL (Normal) Comments: According to ATP-III Guidelines, HDL-C >59 mg/dL is considered anegative risk factor for CHD. LDL Cholesterol Calc 99 mg/dL (Normal) Range: 0-99 LDL/HDL Ratio 2.2 {ratio_units} (Normal) Range: 0.0-3.6 Triglycerides 133 mg/dL (Normal) Range: 0-149 VLDL Cholesterol Ezequiel 27 mg/dL (Normal) Range: 5-40 :24 HgA1C , Office (17246) Comments: done km HgA1C , Office 6.5 % (Normal) Range: 4.6 - 7.1 :24 Blood Glucose , Office (51695) Comments: done km Blood Glucose , Office 113 (Normal) :38 HgA1C , Office (38309) Comments: done km HgA1C , Office 6.0 % (Normal) Range: 4.6 - 7.1 :38 Blood Glucose , Office (30467) Comments: done sylvain Blood Glucose , Office 132 (Normal) :09 PSA,TOT SCREEN 1.30 ng/mL (Normal) Range: 0.00-4.00 Comments: This test was performed using the TPSA method for the[employer] chemistry system.Values obtained with different assay methods cannot be usedinterchangably.When changing PSA assays in the course of monito ring apatient, additional sequential testing should be carriedout to confirm baseline values. :00 HgA1C , Office (94005) Comments: done sylvain HgA1C , Office 7.4 % (Abnormal) Range: 4.6 - 7.1 :00 Blood Glucose , Office (66800) Comments: done sylvain Blood Glucose , Office 138 (Normal) :32 MYOCARD PERF SPECT REST/STRESS Radiology Report See Note (Normal) Comments: Exam Number: [id number] MYOCARDIAL PERFUSION SCAN TECHNIQUEThe patient was injected [...] of 60%. Reported By: LOUIS CASTILLO M.D. 09-Sni-249053:27 URINALYSIS W/O MICRO (90571) Comments: PATIENT WAS FASTINGPERFORMED BY: Ethics Resource GroupCape [facility] [id number] Appearance Clear (Normal) Bilirubin Negative (Normal) Glucose Negative (Normal) Ketones Negative (Normal) Microscopic Examination MICRON (Normal) Comments: Microscopic follows if indicated. Nitrite, Urine Negative (Normal) Occult Blood Negative (Normal) pH 7.5 (Normal) Range: 5.0-7.5 Protein Trace (Normal) Specific [place] 1.023 (Normal) Range: 1.005-1.030 Urine-Color Yellow (Normal) Urobilinogen,Semi-Qn 0.2 mg/dL (Normal) Range: 0.0-1.9 WBC Esterase Negative (Normal) 64-Mhw-474675:27 TSH (11391) Comments: PATIENT WAS FASTINGPERFORMED BY: BuysideFX70 Kapow EventsCape Fear Valley Bl[facility] Hospital [id number] TSH 3.505 {uIU/mL} (Normal) Range: 0.350-5.500 Comments: Adult TSH concentrations below 5.5 uIU/mL do not rule out the presence of subclinical hypothyroidism. 62-Utb-705760:27 MICROALBUMIN URINE QUANT Comments: PATIENT WAS FASTINGPERFORMED BY: Ethics Resource GroupCape [facility] [id number] (71151) Microalbum.,U,Random 4.4 ug/mL (Normal) Range: 0.0-17.0 :27 METABOLIC PANEL, COMPREHENSIVE Comments: PATIENT WAS FASTINGPERFORMED BY: [facility] Vrxtau0151 [facility] [id number] (68176) A/G Ratio 1.8 (Normal) Range: 1.1-2.5 Albumin, [...] Serum 132 mg/dL (Abnormal) Range: 65-99 If -Yemeni >60 mL/min (Normal) Range: 60-137 Comments: Note: [...] Sodium, Serum 140 mmol/L (Normal) Range: 135-145 :27 CBC WITH MANUAL DIFF (22758) Comments: PATIENT WAS FASTINGClinical Information: ADD [id number], ADD [id number] PERFORMED BY: GUICHO MovidiusSaint Francis Medical CenterThhwsv8379 [facility] [id number] Baso (Absolute) 0.0 {x10E3/uL} (Normal) Range: 0.0-0.2 [...] 11.7-15.0 WBC 5.5 {x10E3/uL} (Normal) Range: 4.0-10.5 89-Ika-522113:27 LIPID PANEL (10899) Comments: PATIENT WAS FASTINGPERFORMED BY: WealthEngineCoSaint Francis Medical CenterFpanel4491 [facility] [id number] LDL/HDL Ratio 2.4 {ratio_units} (Normal) Range: 0.0-3.6 Cholesterol, Total 212 mg/dL (Abnormal) Range: 100-199 Comment SPRCS (Normal) Comments: If initial LDL-cholesterol result is >100 mg/dL, assess forrisk factors. HDL Cholesterol 52 mg/dL (Normal) Range: 40-59 LDL Cholesterol Calc 123 mg/dL (Abnormal) Range: 0-99 Triglycerides 184 mg/dL (Abnormal) Range: 0-149 VLDL Cholesterol Ezequiel 37 mg/dL (Normal) Range: 5-40 :28 HgA1C , Office (94489) Comments: done HgA1C , Office 6.9 % (Normal) Range: 4.6 - 7.1 :28 Blood Glucose , Office (16590) Comments: done Blood Glucose , Office 157 (Normal) :58 HgA1C , Office (84656) Comments: done HgA1C , Office 6.6 % (Normal) Range: 4.6 - 7.1 :58 Blood Glucose , Office (81620) Comments: done Blood Glucose , Office 136 [...] T PROT 6.7 g/dL (Normal) Range: 6.4-8.2 01-Fic-46399:29 COMPLETE UA BACTERIA 0 SEEN {/hpf} (Normal) [...] was performed using the TPSA method for [employer] chemistry system.Values obtained with different assay methods cannot be usedinterchangably.When changing PSA assays in the course of monito ring apatient, additionaly sequential testing should be carriedout to confirm baseline values. :29 TSH 3.67 {uIU/mL} (Normal) Range: 0.34-4.82 :39 Blood Glucose , Office (33605) Comments: done km Blood Glucose , Office 98 (Normal) :39 HgA1C , Office (39863) Comments: done km HgA1C , Office 6.5 % (Normal) Range: 4.6 - 7.1 :57 HgA1C , Office (52753) HgA1C , Office 6.5 % (Normal) Range: 4.6 - 7.1 :57 Blood Glucose , Office (45738) Blood Glucose , Office 138 (Normal) :03 HgA1C , Office (02600) HgA1C , Office 6.6 % (Normal) Range: 4.6 - 7.1 9-Egu-220899:03 Blood Glucose , Office (50022) Blood Glucose , Office 92 (Normal) 08-Krp-121152:28 LIVER ALB 3.6 g/dL (Normal) Range: 3.4-5.0 [...] 1 month- gen med / will need [facility] Indication: Physical exam WITHOUT abnormal findings (Renamed [...] from H/O transient cerebral ischemia) : Reviewed Rehabilitator Letter Indication: History of transient cerebral ischemia (Renamed from H/O transient cerebral ischemia) Hypertensive urgency : Reviewed Rehabilitator Letter Indication: Hypertensive urgency Heart disease, hypertensive, [...] Current Prescription(s) Indication: Hypothyroidism Hypothyroidism : Reviewed Rehabilitator Letter Indication: Hypothyroidism Uncontrolled type II diabetes [...] and i plan from there Planned Observations HELICOBACTER PYLORI ANTIBODY PROFILE IgG, IgM, IgA (27827)Indication: Epigastric pain On: :52 Request Amylase (06778)Indication: Epigastric pain On: :52 Request Lipase (89761)Indication: Epigastric pain On: :52 Request Sed Rate Erythrocyte (36742)Indication: Epigastric pain On: :52 Request Metabolic Panel, Comprehensive (72979)Indication: Epigastric pain On: :52 Request CBC with auto diff (55502)Indication: Epigastric pain On: :52 Request T4, FREE (THYROXINE) (56031)Indication: Hypothyroidism On: :48 Request T3, FREE (TRIDOTHYRONINE) (24355)Indication: Hypothyroidism On: :48 Request URINALYSIS, W/ MICRO (47423)Indication: Essential hypertension On: :47 Request MICROALBUMIN: CREATININE RATIO (77684) AND (41541)Indication: Essential hypertension On: :47 Request METABOLIC PANEL, COMPREHENSIVE (85878)Indication: Essential hypertension On: :47 Request CBC W/AUTO DIFF WBC (60266)Indication: Essential hypertension On: :47 Request LIPID PANEL (06520)Indication: Hypercholesterolemia On: :47 Request TSH (65905)Indication: Hypothyroidism On: :47 Request CALCIFIDIOL (27541) VIT D 25Indication: Vitamin D deficiency On: :47 Request Influenza A&B Viral Culture (10286)Indication: Flu-like symptoms On: 9-Skk-080689:53 Request POTASSIUM SERUM (69845)Indication: Potassium disorder On: 62-Qie-260903:53 Request CALCIFEDIOL (35298)Indication: Vitamin D deficiency On: 77-Mpl-72129:36 Request TSH (58078)Indication: Hypothyroidism On: 98-Vmk-54397:35 Request Lipid Panel (00733)Indication: Hypercholesterolemia On: :34 Request Metabolic Panel, Comprehensive (68817)Indication: Hypercholesterolemia On: :34 Request URINE VMA (98502)Indication: Hypertensive urgency On: 90-Zld-325533:54 Request Catecholamines,24-Hour Urine (81963)Indication: Hypertensive urgency On: 01-Hsa-684476:54 Request RENIN (03237)Indication: Hypertensive urgency On: 46-Xoj-252937:54 Request ALDOSTERONE (81161)Indication: Hypertensive urgency On: 11-Hhc-719872:54 Request METANEPHRINES (90477)Indication: Hypertensive urgency On: 34-Zsm-918953:54 Request CBC (Auto) (36568)Indication: Hypertensive urgency On: 26-Wvv-325095:36 Request Metabolic Panel, Basic ([id number])Indication: Hypertensive urgency On: 47-Djo-[id number] Request TSH ([id number])Indication: Hypertensive urgency On: 58-Qfd-784173:24 Request CBC WITH MANUAL DIFF ([id number])Indication: Hypertensive urgency On: 21-Yjc-660103:24 Request METABOLIC PANEL, COMPREHENSIVE ([id number])Indication: Hypertensive urgency On: 50-Rhk-725590:24 Request Troponin I (52735)Indication: Hypertensive urgency On: 09-Taq-017034:20 Request CPK MB FRACTION ([id number])Indication: Hypertensive urgency On: 06-Hnl-831137:20 Request CREATINE KINASE TOTAL ([id number])Indication: Hypertensive urgency On: 05-Hnt-016393:20 Request TSH ([id number])Indication: Hypothyroidism On: 08-Nlg-596768:56 Request HgA1C , Office ([id number])Indication: Controlled diabetes mellitus type II without complication On: 49-Fot-20928:56 Request PSA (PROSTATE SPECIFIC ANTIGEN) (V76.44)Indication: Screening for prostate cancer On: :20 Request TSH ([id number])Indication: Uncontrolled type II diabetes mellitus On: :19 Request URINALYSIS, W/ MICRO ([id number])Indication: Uncontrolled type II diabetes mellitus On: :19 Request MICROALBUMIN: CREATININE RATIO ([id number]) AND ([id number])Indication: Uncontrolled type II diabetes mellitus On: :19 Request METABOLIC PANEL, COMPREHENSIVE ([id number])Indication: Uncontrolled type II diabetes mellitus On: :19 Request LIPOPROTEIN, BLD, BY NMR ([id number])Indication: Uncontrolled type II diabetes mellitus On: :19 Request LIPID PANEL ([id number])Indication: Uncontrolled type II diabetes mellitus On: :19 Request CBC WITH MANUAL DIFF ([id number])Indication: Uncontrolled type II diabetes mellitus On: : Request LIPOPROTEIN, BLD, BY NMR ([id number])Indication: Hypercholesterolemia On: :57 Request LIPID PANEL ([id number])Indication: Hypercholesterolemia On: :57 Request Comments: do in 3 months LIPID PANEL ([id number])Indication: Controlled diabetes mellitus type II without complication On: :22 Request T3, FREE (TRIDOTHYRONINE) ([id number])Indication: Abnormal TSH On: :40 Request T4, FREE (THYROXINE) ([id number])Indication: Abnormal TSH On: :40 Request TSH ([id number])Indication: Abnormal TSH On: :40 Request Comments: do in 2-3 mo TSH ([id number])Indication: Controlled diabetes mellitus type II without complication On: :29 Request METABOLIC PANEL, COMPREHENSIVE ([id number])Indication: Controlled diabetes mellitus type II without complication On: :29 Request MICROALBUMIN: CREATININE RATIO ([id number]) AND ([id number])Indication: Controlled diabetes mellitus type II without complication On: :29 Request CBC WITH MANUAL DIFF ([id number])Indication: Controlled diabetes mellitus type II without complication On: :29 Request LIPID PANEL ([id number])Indication: Controlled diabetes mellitus type II without complication On: :29 Request PSA (PROSTATE SPECIFIC ANTIGEN) (V76.44)Indication: Uncontrolled type II diabetes mellitus On: :18 Request LIPID PANEL ([id number])Indication: Hypercholesterolemia On: :02 Request HEPATIC FUNCTION PANEL (53210)Indication: Hypercholesterolemia On: 28-Wba-354039:02 Request TSH ([id number]) On: :45 Request METABOLIC PANEL, COMPREHENSIVE (43541) On: :44 Request LIPID PANEL ([id number]) On: :44 Request CBC WITH MANUAL DIFF ([id number]) On: :44 Request PSA (PROSTATE SPECIFIC ANTIGEN) (34091) On: :17 Request Comments: screening TSH ([id number]) On: :14 Request URINALYSIS W/O MICRO ([id number]) On: :14 Request MICROALBUMIN URINE QUANT (09952) On: :14 Request LIPID PANEL ([id number]) On: :14 Request METABOLIC PANEL, COMPREHENSIVE ([id number]) On: :14 Request CBC WITH MANUAL DIFF ([id number]) On: :14 Request MICROALBUMIN: CREATININE RATIO ([id number]) On: :07 Request AND ([id number]) METABOLIC PANEL, COMPREHENSIVE (51363) On: :07 Request LIPID PANEL ([id number]) On: :07 Request CBC WITH MANUAL DIFF ([id number]) On: : Request Planned Procedures ULTRASOUND, ABDOMEN, LIMITED On: 01-Apr-2018 Intent ([id number])By: Denisa Macias DO Comments: needs for pre-op -- this week please Denisa Macias DO EKG ([id number])By: Denisa Macias DO On: 27-Feb-2018 Intent Denisa Macias DO Comments: nsr no acute chg PNEUM VAC ADLT/IMUMNOSPR, SBC/INTRM On: 07-Feb-2018 Intent (19774)By: Denisa Macias DO Comments: 0.5 cc given sq lt arm lot [id number] 04/21/19 Denisa Macias DO X-RAY OF RIGHT HAND, ONE OR TWO On: 07-Feb-2018 Intent VIEWS ([id number])By: Denisa Macias DO Comments: attention to hypothenar area for FB Denisa Macias DO TD VACCINE ADULT ([id number])By: Venkata, On: 23-Dec-2017 Intent Anne Comments: a105a3/97933.5mlr dltd, IMMLONG Flu Vaccine (Quadrivalent) 92775Wa: On: 28-Nov-2017 Intent Visit, Nurse Comments: Lot #[id number]/30/19Site-L dltd, IMDose prefilled syringegiven by: Genna FARAHVIS reviewed and ABN signed X-RAY RIGHT KNEE, 3 VIEWS ([id number])By: On: 31-Jul-2017 Intent Denisa Macias DO, DO, Kathleen Radiology - Knee - Right - Weight On: 31-Jul-2017 Intent BearingBy: Denisa Macias DO, DO, Kathleen ELECTROCARDIOGRAM, COMPLETE (ECG) On: 31-Jul-2017 Intent ([id number])By: Denisa Macias DO Comments: nsr no acute chg Denisa Macias DO CT - Brain/Head (IV Contrast On: 31-Dec-2016 Intent Needed)By: Denisa Macias DO, DO, Kathleen Echo CompleteBy: Denisa Macias DO On: 31-Dec-2016 Intent Denisa Macias DO [id number]-MV-[id number] BEHAVIORAL COUNSELING On: 31-Dec-2016 Intent FOR OBESITY, 15 MINUTES (G0447)By: Denisa Macias DO, DO, Kathleen Flu Vaccine (Quadrivalent) 18539Nq: On: 17-Dec-2016 Intent Denisa Macias DO, DO, Comments: Lot:[id number]:09/09/17Amt:0.5mlRoute:IMSite: L DltdGiven By: YURY Valdez signed Denisa MAGNETIC RESONANCE ANGIOGRAPHY OF On: 24-Sep-2016 Intent CAROTID AND VERTEBRAL VESSELS ([id number])By: Denisa Macias DO, DO, Kathleen ELECTROCARDIOGRAM, COMPLETE (ECG) On: 24-Sep-2016 Intent ([id number])By: Denisa Macias DO Comments: sinus gabby no acute chg- on BB Denisa Macias DO Renal Duplex ScanBy: Colleen GARCIA, On: 24-Sep-2016 Intent Denisa Valladares DO ELECTROCARDIOGRAM, COMPLETE (ECG) On: 10-Sep-2016 Intent ([id number])By: Denisa Macias DO Comments: sinus gabby no acute chg Denisa Macias DO CT HEAD OR BRAIN WO CONTRAST On: 21-May-2016 Intent ([id number])By: Denisa Macias DO, DO, Kathleen Flu Vaccine (Quadrivalent) 50339Ds: On: 23-Dec-2015 Intent Emeka Levin Comments: FLUlot: [id number]:08/08site:Lt deltoidroute:IMdose:.5mlDEMICK, [place] Echo CompleteBy: Denisa Macias DO On: 24-Oct-[address] SCAN OF CHEST WITH CONTRAST On: 24-Oct-2015 Intent ([id number])By: Denisa Macias DO, DO, Kathleen CT - Chest (IV Contrast Needed)By: On: 20-Jun-2015 Intent Denisa Macias DO, DO, Kathleen Echo CompleteBy: Denisa Macias DO On: 21-Feb-2015 Intent Denisa Macias DO Flu Vaccine (Quadrivalent) 47321Xa: On: 05-Jan-2015 Intent Denisa Macias DO, DO, Comments: lot [id number]: 09/22/2015site/route L rafa, IMamt 0.5mlVIS and ABN signed when applicableFirebaugh [facility] Denisa ELECTROCARDIOGRAM, COMPLETE (ECG) On: 16-Nov-2014 Intent (79385)By: Denisa Macias DO Comments: nsr no acute changes - Denisa Macias DO Prevnar 13 (71880)By: Colleen GARCIA, On: 10-May-2014 Intent Denisa Valladares DO Comments: Lot:[id number]:08/07Dose:0.5mgRoute:imSite:l armGiven By:MIGUEL ÁNGEL signed Inhaler Demonstration ([id number])By: On: 23-Mar-2014 Intent Ciesa GELATIN MAKER UTILITY, Supriya ADMINISTRATION OF INFLUENZA VIRUS On: 25-Dec-2013 Intent VACCINE (G0008)By: Visit, Nurse Comments: Lot #[id number]-L dltd, IMDose prefilled syringegiven by:YURY Seymour and IRAIS signed FLU VAC, SPLIT, >3 YEARS, INTRAMUSC On: 25-Dec-2013 Intent ([id number])By: Visit, Nurse EKG (12138)By: Denisa Macias DO On: 08-Oct-2013 Intent Denisa Macias DO Comments: nsr no acute chg - same as 2012 and last echo 2012 Radiology - PelvisBy: Colleen GARCIA, On: 09-Jul-2013 Intent Denisa Valladares DO Comments: attention R side SI jt Radiology - Hip - RightBy: Colleen On: 09-Jul-2013 Intent Denisa GARCIA DO, Kathleen EMGBy: Colleen Denisa GARCIA Colleen On: 03-Apr-2013 Denisa Izquierdo DO Comments: lower extremity Nerve ConductionBy: Colleen GARCIA, On: 03-Apr-2013 Intent Denisa Valladares DO Comments: lower extremity Eprescribed prescriptions ([id number])By: On: 03-Apr-2013 Anne Hale LPN PNEUM VAC ADLT/IMUMNOSPR, SBC/INTRM On: 19-Dec-2012 Intent (52540)By: Marge Smith Comments: Lot:[id number]:10/25/13Dose:0.5mgRoute:imSite:r armGiven By:MIGUEL ÁNGEL signed ADMINISTRATION OF PNEUMOCOCCAL On: 19-Dec-2012 Intent VACCINE (G0009)By: Marge Smith FLU VAC, SPLIT, >3 YEARS, INTRAMUSC On: 17-Dec-2012 Intent (47352)By: Anne Edge LPN Comments: Lot:[id number]:6.14Amt:0.5mlRoute:IMSite: L DltdGiven By: YURY Valdez signed Eprescribed prescriptions (G8553)By: On: 17-Dec-2012 Anne Hale LPN Eprescribed prescriptions (G8553)By: On: 15-Sep-2012 Anne Hale LPN Renal Artery DopplerBy: Colleen GARCIA, On: 08-Aug-2012 Intent Denisa Colleen DOInesDenisa MRI - BrainBy: Colleen DO Denisa On: 04-Aug-2012 Intent Colleen DO Denisa CT - Brain/HeadBy: Colleen DO, On: 04-Aug-2012 Intent Denisa Colleen DO Denisa Echo CompleteBy: Colleen DO Denisa On: 04-Aug-2012 Intent Colleen DO Denisa Carotid DopplerBy: Oclleen DO, On: 04-Aug-2012 Intent Denisa Colleen DO Denisa EKG ([id number])By: Colleen DO Denisa On: 28-Jul-2012 Intent Colleen DO Denisa Comments: nsr no acute changes Echo CompleteBy: Colleen DO Denisa On: 21-Mar-2012 Intent Colleen DO Denisa Echo CompleteBy: Colleen DO Denisa On: 19-Mar-2012 Intent Colleen DODeniaDenisa Eprescribed prescriptions (G8553)By: On: 13-Mar-2012 Intent Anne Edge LPN Eprescribed prescriptions (G8553)By: On: 31-Dec-2011 Intent Colleen DO Denisa Colleen DO Denisa Nuclear Medicine - HIDA w/CPKBy: On: 19-Dec-2011 Intent Ciesa GELATIN MAKER UTILITYHayley E EKG (50537)By: Denisa Macias DO On: 13-Dec-2011 Intent Colleen DOInesDenisa Comments: nsr no acute chg Ultrasound - GallbladderBy: Colleen On: 29-Nov-2011 Intent Denisa GARCIA Colleen DO Denisa Eprescribed prescriptions (G8553)By: On: 29-Nov-2011 Intent Anne Edge LPN FLU VAC, SPLIT, >3 YEARS, INTRAMUSC On: 27-Nov-2011 Intent (11049)By: Marissa Palomino LPN Comments: Lot #[id number]/30/13Site-left deltoidgiven by: Todd Palomino LPN ADMINISTRATION OF INFLUENZA VIRUS On: 27-Nov-2011 Intent VACCINE (G0008)By: Marissa Palomino LPN MRI - Lumbar Spine (IV Contrast On: 26-Jan-2011 Intent Needed)By: Denisa Macias DO, DO, Kathleen EKG (27820)By: Denisa Macias DO On: 05-Jan-2011 Intent Denisa Macias DO Comments: nsr no acute chg Cartoid DopplerBy: Colleen GARCIA, On: 05-Jan-2011 Intent Denisa Valladares DO EKG (10257)By: Denisa Macias DO On: 06-Dec-2010 Intent Denisa Macias DO Comments: nsr no acute chgn- Bio Z (35376)By: Denisa Macias DO On: 06-Dec-2010 Intent Denisa Macias DO Comments: stabel parameters- no chg in rx IMMUNIZ ADMNIN, 1 VAC, SNGL/COMBO On: 06-Dec-2010 Intent ([id number])By: Denisa Macias DO, DO, Kathleen FLU VAC, SPLIT, >3 YEARS, INTRAMUSC On: 06-Dec-2010 Intent (61082)By: Denisa Macias DO, DO, Kathleen TDAP VACCINE >7 IM ([id number])By: Colleen On: 30-Aug-2010 Intent Denisa GARCIA DO, Kathleen Comments: Lot #[id number]/25/13Site-left deltoidgiven by: Todd Palomino LPN ADMINISTRATION OF INFLUENZA VIRUS On: 27-Dec-2009 Intent VACCINE (G0008)By: Edilia Vasquez LPN FLU VAC, SPLIT, >3 YEARS, INTRAMUSC On: 27-Dec-2009 Intent (98913)By: Edilia Vasquez LPN Comments: Lot #[id number] 4PExp-07/03Site-L armDose0.5mlgiven by: EKG (12652)By: Denisa Macias DO On: 15-Nov-2009 Intent Denisa Macias DO Comments: nsr no acute changes MRI - Shoulder(s) - LeftBy: Colleen On: 11-May-2009 Intent Denisa GARCIA DO, Kathleen Bio Z (12620)By: Denisa Macias DO On: 25-Oct-2008 Intent Denisa Macias DO Comments: NORMAL SVR AND CO EKG (47766)By: Denisa Macias DO On: 25-Oct-2008 Intent Denisa Macias DO Comments: NSR NO ACUTE CHANGES Bio Z ([id number])By: Denisa Macias DO On: 04-Jun-2008 Intent Denisa Macias DO Comments: normal IMMUNIZ ADMNIN, 1 VAC, SNGL/COMBO On: 05-Jan-2008 Intent ([id number])By: Denisa Macias DO, DO, Kathleen FLU VAC, SPLIT, >3 YEARS, INTRAMUSC On: 05-Jan-2008 Intent ([id number])By: Denisa Macias DO, DO, Kathleen Bio Z (58656)By: Denisa Macias DO On: 07-Nov-2007 Intent Denisa Macias DO Comments: normal svr and co Nuclear Stress Test/Stress On: 15-Sep-2007 Intent SPECT/TreadmillBy: Colleen GARCIA, Comments: heart group Denisa Valladares DO Echo CompleteBy: Denisa Macias DO On: 07-Aug-2007 Intent Denisa Macias DO Cartoid DopplerBy: Colleen GARCIA, On: 07-Aug-2007 Intent Denisa Valladares DO EKG (83504)By: Denisa Macias DO On: 07-Aug-2007 Intent Denisa Macias DO Comments: nsr no acute ischemic changes EKG (31077)By: Denisa Macias DO On: 29-Nov-2006 Intent Denisa Macias DO Comments: nsr no acute ischemic changes EMGBy: Denisa Macias DO On: 04-Nov-2006 Intent Denisa GARCIA Nerve ConductionBy: Colleen GARCIA On: 04-Nov-2006 Intent Denisa Valladares DO Instructions [...] Abdominal pain, acute, right upper quadrant Encounters Office Visit On: 01-Apr-2018 9:54 Encounter Reason: Abdominal pain - The onset of the pain has been sudden and has been occurring in an intermittent pattern for 1 month. The course has been recurrent. The pain is described as a moderate. The pain is desc End: 8-Van-2019 11:01 ribed as being located in the [...] The patient does have durable power of azure architect and living will. The patient has noticed [...] the patient is following up for inc rosemarie All identified problems below, blood sugar issues, [...] The patient does have durable power of azure architect and living will. The patient has noticed nothing from the geriatic depression scale. Other providers contributing to the patient's care are refrigerating engineer head (dr zayas) and other: ([facility], vision test up to date).Encounter Diagnosis: Physical [...] in bathroom. The patient has completed the [facility] preventative measures: PSA testing (2011) and colonoscopy (2011). The patient does have durable power of azure architect and living will. The patient has noticed nothing from the geriatic depression scale . Other providers contributing to the patient's care are refrigerating engineer head (Dr. Antonio) and surgeon (Dr. Negro -- [...] criselda toscano does have durable power of azure architect and living will. The patient has noticed nothing from the geriatic depression scale. Other providers contributing to the patient's care are renal social worker and other: (dependency counselor, ENT). Encounter Diagnosis: Type II Diabetes,controlled (250.00), [...] [facility] End: 07-Mar-2006 14:37 Payers MedicareAetmadan Life Ins/MedicareErnest Stone; joceline guarantor
--- OUTSIDE RECORDS SUMMARY | 2018-06-16 21:46 | XMS RPT_ITS | Continuity of Care Document ---
:1945 External Reference #:[id number] Author Organization [facility] Address [address] [facility] [address] [place] [address] Phone Care Team Providers Name Role Phone Colleen GARCIA Denisa Unavailable Physical Therapy, [facility] Unavailable Herberth Pollock Unavailable Lawrence Collier MD Unavailable Baljit Arcos MD Unavailable Dr. Nik Ch Unavailable Rivera MAO MD , Jhonathan Zelaya Unavailable Santana Liu Unavailable Dr. Abel Rojas Unavailable Dr. 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) Status: Active Heart murmur (R01.1, 785.2) Status: [...] Active MILD SQUAMOUS CELL ATYPIA Status: Active Need for pneumococcal vaccination (Z23, [...] Status: Active Rosacea (L71.9, 695.3) Status: Active Sacroiliac pain (M53.3, 724.6) Status: Active Screening for prostate cancer (Z12.5, V76.44) Status: Active Shoulder pain (M25.519, 719.41) Status: Active Sore throat (J02.9, 462) Status: Active Subcutaneous nodules (R22.9, 782.2) Status: Active 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 rupture (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.2) Comments: was being followed by dr Guillen but since he is not in [place] anymore so we will steel pickler ball Status: Active TUBULOVILLOUS ADENOMA, NOS Comments: [...] DO, DO, Kathleen Start : 23-Dec-2017 Active Atorvastatin Calcium 40 MG Oral Tablet 1 (one) Tablet daily for 0 days Quantity: 30 {Tablet} Refills: 5 Ordered:23-Dec-2017 Jim Macias DO, DO, Kathleen Start : 23-Dec-2017 Active Comments:in place of zocor CATAPRES, 0.1MG (Oral Tablet) 1 Tablet up [...] Kathleen Start : 06-Nov-2017 Active Comments:new dose Metoprolol Succinate ER 50 MG Oral Tablet Extended Release 24 Hour 1 Tablet ER 24HR qd for 0 days Quantity: 90 {Tablet} Refills: 3 Ordered:06-Nov-2017 Jim Macias DO, DO, Kathleen Start : 06-Nov-2017 Active MULTI-DAY PLUS MINERALS (Oral Tablet) 1 QD for 0 days Refills: 0 Ordered:04-Feb-2009 Anne Edge Norvasc 2.5 MG Oral Tablet 1 (one) Tablet Tablet daily for 0 days Quantity: 30 {Tablet} Refills: 3 Ordered:27-Dec-2016 Jim Macias DO, DO, Kathleen Start : 27-Dec-2016 Active Norvasc 2.5 MG Oral Tablet 1 (one) Tablet Tablet daily for 0 days Quantity: 90 {Tablet} Refills: 3 Ordered:27-Dec-2016 Jim Macias DO, DO, Kathleen Start : 27-Dec-2016 Active Pen [place] 08/07 31G X 8 MM Miscellaneous 1 (one) [...] DO, DO, Kathleen Start : 13-Aug-2017 Active Ramipril 5 MG Oral Capsule 1 Capsule [...] Inactive Comments:ninety ANTIVERT, 25MG (Oral Tablet) 1 (one) Tablet Q 6hr/PRN for 0 days Quantity: 30 {Tablet} Refills: 0 Ordered:17-Aug-2008 Anne Edge LPN Start : 17-Aug-2008 End : 14-Oct-2008 Inactive ANTIVERT, 25MG (Oral Tablet) 1 Tablet q 8 hr prn for 0 days Quantity: 30 {Tablet} Refills: 0 Ordered:13-Mar-2012 Anne Edge LPN Start : 05-Jan-2011 End : 13-Mar-2012 Inactive AUGMENTIN, 875-125MG (Oral Tablet) 1 Tablet [...] (External Solution) uad (10 %) Inactive Comments:Trillium [place] Levitra 10 MG Oral Tablet 1 Tablet [...] : 05-Jan-2011 End : 13-Mar-2012 Inactive Comments:twenty Protonix 40 MG Oral Tablet Delayed Release [address] qd for 0 days Quantity: 90 {Tablet} Refills: 3 Ordered:31-Jul-2017 Anne Edge LPN Start : 08-Oct-2013 End : 31-Jul-2017 Inactive Comments:may substitute generic SPECTAZOLE, 1% (External Cream) uad Cream BID [...] : 15-May-2017 End : 31-Jul-2017 Inactive ASPIRIN BUF(YLSEQX-DYPPJS-QTK), 325MG (Oral Tablet) 1 (one) Tablet Daily [...] for 0 days Refills: 0 Ordered:04-Sep-2012 Anne dEge LPN End : 04-Sep-2012 Discontinued Comments:This order [...] 784.7) Comments: got cauterized - dr lawrence collier Status: Resolved as of 15-Sep-2012 Eustachian tube [...] as of 30-May-2016 Procedures Date Value Details 07-Feb-2018 Hand 2 Views Result: Comments: See Note; NOTES: [facility] Imaging Services [address] [address] Hand 2 Views MR#: [id number] Acct: [id number] Name: YOHANNES CADET Rep #: [id number] : 0 1945 M 72 From: Morales Perla MD PCP: Denisa Macias DO Status: REG CLI Study: Hand 2 Views Date of Exam: 02/07/18 Exam# [id number] Ordering Dr: Denisa Macias DO STUDY: X-RAY [...] Service support , CC: Denisa Macias DO Hotel Maintenance Technician: Signed 05-Dec-2016 PT D/C Summary (1) Result: Comments: See Note; NOTES: [facility] Physical Therapy [facility] [place], [place] [address] Fax REHABILITATION SERVICES DISCHAR GE SUMMARY MR#: [id number] Acct: [id number] Name: YOHANNES CADET Rep #: [id number] : 1945 71 From: Aftab Mendez PT, ATC Referring Dr.: Nik Ch DPM Status: REG RCR Insurance: MEDIC ARE PART A B S [place] HP - PT D/C Summary It has [...] please feel free to call me at [phone]. Thank you for the referral of this patient. Sincerely, Aftab Mendez, PT, <Electronically signed by Aftab Mendez PT, ATC> 12/05/16 1100 CC: Nik valdes DPM; Denisa Colleen DO [facility] Signed 09-Oct-2016 Inital Evaluation (1) - PT Result: Comments: See Note; NOTES: [facility] Physical Therapy [facility] [address] [place] [address] Fax REHABILITATION SERVICES INITIAL EVALUATION MR#: [id number] Acct: [id number] Name: YOHANNES CADET Rep #: [id number] : 1945 71 From: Aftab Mendez PT, ATC Referring Dr.: Nik Ch DPM Status: REG RCR Insurance: [employer] PART A B [place] Patient's Visit Information YOHANNES CADET is a [...] to be FAXED BACK to us at [phone] for Medicare purposes. Please let me know if there are questions or concerns regarding this plan of care. Physician Signature: Date: <Electronically signed by Aftab Mendez PT, ATC> 1001 CC: Nik Ch DPM; Denisa Macias DO [facility] Signed For Medicare only, by signing this I certify the plan of care. Physicians Signature Date 21-May-2016 Brain/Head without Contrast Result: Comments: See Note; NOTES: [facility] Imaging Services [address] [place] [address] Verdana 4d Brain/Head without Contrast MR#: [id number] Acct: [id number] Name: YOHANNES CADET Rep #: [id number] : 1945 M 70 From: Sincere Solorio DO PCP: Denisa Macias DO Status: REG CLI Study: Brain/Head without Contrast Date of Exam: 05/21/16 Exam# [id number] Ordering Dr: Denisa Macias DO STUDY: CT [...] at 14:26 EST Tel , Service support [phone], CC: Denisa Macias DO Hotel Maintenance Technician: Signed 14-Nov-2015 Echocardiogram Complete Result: Comments: See Note; NOTES: [facility] Cardiovascular Services [address] [place] [address] Echo Complete 11/14/15 1303 MR#: [id number] Acct: [id number] Name: YOHANNES CADET Rep #: [id number] : 1945 70 From: Layo Raymond MD Attending Dr: Denisa Macias DO Status: REG CLI Ordering Dr: Denisa Macias DO Date: 11/14/15 Location: [facility] Sex: M C Admitted: Reason Fo r [...] Physician: Denisa Macias Performed By: Zaira Her , RDCS 11/14/151648 Date Layo Raymond MD CC: Denisa Macias DO Date Dictated: 10/24 05/10 1303 Date Transcribed: 11/14/151648 Hotel Maintenance Technician: Signed 14-Nov-2015 Chest WITH Contrast Result: Comments: See Note; NOTES: [facility] Imaging Services [address] [place] [address] Verdana 4d Chest WITH Contrast MR#: [id number] Acct: [id number] Name: YOHANNES CADET Rep #: [id number] : 1945 M 70 From: Asia Peres MD PCP: Denisa Macias DO Status: REG CLI Study: Chest WITH Contrast Date of Exam: 11/14/15 Exam# [id number] Ordering Dr: Denisa Macias DY: CT CHEST WITH CONTRAST REASON FOR EXAM: [...] Service support , CC: Denisa Macias DO Hotel Maintenance Technician: Signed 24-Oct-2015 ELECTROCARDIOGRAM, COMPLETE (ECG) (08511) Comments: sinus gabby - no acute chg - same as old and on BB Result: [MEASUREMENTS ANALYSIS] Date of Test: 10/24/2015 09:30:26; Heart Rate: 55; SC Interval: 184; QRS: 105; QT Interval: 404; Corrected QT Interval (QTc): 396; P Wave [place]: 26; QRS Wave [place]: 27; T Wave [place] : 34; Blood Pressure: 138/70 [ECG DIAGNOSTIC STATEMENTS] Date of Test: 10/24/2015 09:30:26; Summary: Sinus Bradycardia WITHIN NORMAL LIMITS 29-Sep-2015 Knee 4 or More Views Result: Comments: See Note; NOTES: [facility] Imaging Services [address] [place] [address] Verdana 4d Knee 4 or More Views MR#: [id number] Acct: [id number] Name: YOHANNES CADET Rep #: [id number] : 1945 M 70 From: Tripp Miller MD PCP: Denisa Macias DO Status: REG CLI Study: Knee 4 or More Views Date of Exam: 09/29/15 Exam# [id number] Ordering Dr: Carrol Bautista DO STUDY: X-RAY [...] FACR at 9:18 EDT , Service support [phone], RAD/Knee 4 or More Views IMPRESSION: Moderate arthrosis of the patellofemoral joint Electronically Signed: Tripp Miller MD, FACR at 9:18 EDT , Service support , CC: Carrol Kirkpatrick DO; Denisa Macias DO Hotel Maintenance Technician: Signed 27-Oct-2013 PT Discharge Summary Result: Comments: See Note; NOTES: [facility] Physical Therapy [address] [place] [address] Fax REHABILITATION SERVICES DISCHARGE SUMMARY MR#: [id number] Acct: [id number] Name: YOHANNES CADET Rep #: [id number] : 1945 68 From: Baljit Silva Referring : Denisa Macias DO Status: PRE RCR Eval Date: Dis charge Date: DATE OF SERVICE: PHYSICIAN: Denisa Macias D.O. This patient by the name of Yohannes Helio was seen in our clinic with a [...] referral. Baljit Silva, PT T: GI JOB: [id number] <Electronically signed by Baljit pantoja > 10/27/13 0758 CC: Signed 27-Jul-2013 Inital Evaluation - PT Result: Comments: See Note; NOTES: [facility] Physical Therapy [facility] [address] [place], [place] [address] Fax REHABILITATION SERVICES INITIAL EVALUATION MR#: [id number] Acct: [id number] Name: YOHANNES CADET Rep #: [id number] : 1945 67 From: Baljit Silva Referring Dr.: Denisa Macias DO Status: DIS RCR Insurance: [place] PART A B Eval Date: [facility] [employer] DATE OF SERVICE: 07/20/2013 REFERRING PHYSICIAN: Dr. Denias Macias, JethroO. 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 His goals are to find [...] We discussed with patient possibly using the trxe-wqu-pwfbfox orthotics before he considers fabricated orthotics due to cost. Uzair Silva PT T: GI JOB: [id number] <Electronically signed by Baljit Silva > 07/27/13 1802 CC: Signed For Medicare only, by signing this I c ertify the plan of care. Physicians Signature Date 09-Jul-2013 Hip min 2 Views Result: Comments: See Note; NOTES: [facility] Imaging Services [address] [place] [address] Radiology Report MR#: [id number] Acct: [id number] Name: YOHANNES CADET Rep #: [id number] : 1945 M 67 From: Jakob Hunt MD PCP: Denisa Macias DO Status: REG CLI Study: Hip min 2 Views Date of Exam: 07/09/13 Exam# [id number] Ordering Dr: Denisa Macias DO STUDY : [...] examination of the hip. Electronically Signed: Jakob Hnut MD at 14:44 EDT Tel [phone], Service support [phone], Fax CC: Denisa Macias DO Hotel Maintenance Technician: Signed 09-Jul-2013 Pelvis 1 or 2 Views Result: Comments: See Note; NOTES: [facility] Imaging Services [address] [place] [address] Radiology Report MR#: [id number] Acct: [id number] Name: YOHANNES CADET Rep #: [id number] : 1945 M 67 From: Jakob Hunt MD PCP: Denisa Macias DO Status: REG CLI Study: Pelvis 1 or 2 Views Date of Exam: 07/09/13 Exam# [id number] Ordering Dr: Denisa Macias TUDY: X-RAY - PELVIS REASON FOR EXAM: [...] Jakob Hunt MD at 13:32 EDT Tel [phone], Service support [phone], CC: Denisa Macias DO Hotel Maintenance Technician: Signed 09-Jul-2013 EKG (95648) Comments: nsr no acute chg - ant leads are old Result: [MEASUREMENTS ANALYSIS] Date of Test: 07/09/2013 08:48:02; Heart Rate: 57; SC Interval: 164; QRS: 106; QT Interval: 408; Corrected QT Interval (QTc): 403; P Wave [place]: 25; QRS Wave [place]: 60; T Wave [place] : 62; Blood Pressure: 138/68 [ECG DIAGNOSTIC STATEMENTS] Date of Test: 07/09/2013 08:48:02; Summary: Sinus Bradycardia - Negative precordial T-waves. WITHIN NORMAL LIMITS Immunization Name Dates Details Influenza (3 years and up) on: 05-Jan-2008 Family History Unknown Family Member Name Dates Details Father Comments: [place]/CVA at 84 Status: Active Social History Name Dates Details Alcohol Use Comments: Occasional alcohol use Status: Active Non Smoker/No Tobacco Use Status: Active Tobacco use: Never smoker. Comments: 06/08/11 Status: Active Smoking Status Name Dates Details Never smoker Vital Signs Date Test Result Details 5-Niu-236709:58 Pulse 65 /min Comments: Pattern: Regular Respiration [...] kg/m2 Body Surface Area Calculated 2.29 m2 14-Oar-804859:58 Temperature 96 f Comments: Method: Temporal Pulse [...] Calculated 2.27 m2 :15 Comments: eye-Dr at [facility] 2013hearing -wnl Pulse 57 /min Comments: Pattern: [...] Description Value Details :59 HgA1C , Office (05773) HgA1C , Office 7.2 % (Abnormal) Range: 4.6 - 7.1 :59 Blood Glucose , Office (41242) Blood Glucose , Office 128 (Normal) 1-Gnh-392698:20 Microscopic Examination Comments: PATIENT WAS FASTINGPERFORMED BY: BN [facility] Aicaudqjvd2451 [facility] [id number] BY: CB [facility] Ufvzof5360 [facility] [id number] Bacteria None seen (Normal) Mucus Threads Present (Normal) Epithelial Cells (non renal) None seen {/hpf} (Normal) Range: 0 - 10 RBC None seen {/hpf} (Normal) Range: 0 - 2 WBC 0-5 {/hpf} (Normal) Range: 0 - 5 8-Bua-254081:20 CALCIFIDIOL (03873) VIT D Comments: PATIENT WAS FASTINGPERFORMED BY: [facility] [id number] BY: [facility] Aqmrlr4640 [facility] [id number] 25 Vitamin D, 25-Hydroxy 55.7 ng/mL (Normal) Range: 30.0-100.0 Comments: Vitamin D deficiency has been defined by the [place] ofMedicine and an Endocrine Society practice guideline as alevel of serum 25-OH vitamin D less than 20 ng/mL (1,2).The Endocrine Society went on to further define vitamin Dinsufficiency as a level between 21 and 29 ng/mL (2).1. IOM ([place] of Medicine). 2010. Dietary reference intakes for calcium and D. [place]: The National Academies Press.2. Charles MF, Raissa OCONNELL, Nirmala ALBERT, et al. Evaluation, treatment, and prevention of vitamin D deficiency: an Endocrine Society clinical practice guideline. JCEM. 2010; 96(7):1911-30. 1-Miy-233379:20 TSH (10206) Comments: PATIENT WAS FASTINGPERFORMED BY: [employer] [id number] BY: Le[facility] CommerceSt. Joseph's Regional Medical CenterFpnevj9808 [facility] [id number] TSH 2.360 {uIU/mL} (Normal) Range: 0.450-4.500 1-Lvt-410250:20 URINALYSIS, W/ MICRO Comments: PATIENT WAS FASTINGPERFORMED BY: [facility] [id number] BY: Doctors TogetherSt. Joseph's Regional Medical CenterPvmsiu7436 [facility] [id number] (81724) Microscopic Examination See below: (Normal) Comments: Microscopic was indicated and was performed. Microscopic Examination MICRON (Normal) Comments: Microscopic follows if indicated. Nitrite, Urine Negative (Normal) Urobilinogen,Semi-Qn 0.2 mg/dL (Normal) Range: 0.2-1.0 Bilirubin Negative (Normal) Occult Blood Negative (Normal) Ketones Negative (Normal) Glucose Negative (Normal) Protein Negative (Normal) WBC Esterase Negative (Normal) Appearance Clear (Normal) Urine-Color Yellow (Normal) pH 5.0 (Normal) Range: 5.0-7.5 Specific [place] 1.019 (Normal) Range: 1.005-1.030 0-Jmi-865077:20 MICROALBUMIN: CREATININE Comments: PATIENT WAS FASTINGPERFORMED BY: [employer] [id number] BY: Leap CommerceSt. Joseph's Regional Medical CenterLbhnjz5964[address] [place] [address] [id number] RATIO (39592) AND (94132) Alb/Creat Ratio <2.4 {mg/g_creat} (Normal) Range: 0.0-30.0 Comments: Normal: 0.0 - 30.0 Albuminuria: 31.0 - 300.0 Clinical albuminuria: >300.0 Albumin, Urine <3.0 ug/mL (Normal) Creatinine, Urine 123.5 mg/dL (Normal) 7-Ltb-361324:20 METABOLIC PANEL, Comments: PATIENT WAS FASTINGPERFORMED BY: [facility] [id number] BY: Le[employer] CommerceSt. Joseph's Regional Medical CenterBkahwf8556 [facility] [id number] COMPREHENSIVE (23663) ALT (SGPT) 22 [iU]/L (Normal) Range: 0-44 [...] 8-27 Glucose 156 mg/dL (Abnormal) Range: 65-99 0-Ake-059349:20 CBC W/AUTO DIFF WBC Comments: PATIENT WAS FASTINGPERFORMED BY: BN [facility] Eosgjjwrua2442 [facility] [id number] BY: CB [facility] Duxuav5308 [facility] [id number] (94984) Immature Grans (Abs) 0.0 {x10E3/uL} (Normal) Range: [...] 4.14-5.80 WBC 5.8 {x10E3/uL} (Normal) Range: 3.4-10.8 2-Hxr-372096:20 LIPOPROTEIN, BLD, BY NMR Comments: PATIENT WAS FASTINGPERFORMED BY: BN [facility] Ngolpjpmcx2593 [facility] [id number] BY: CB [facility] Ubbhnk8234 [facility] [id number] (88703) LP-IR Score 66 (Abnormal) Comments: INSULIN RESISTANCE MARKER <--Insulin Sensitive Insulin Resistant--> Percentile in Reference PopulationInsulin Resistance ScoreLP-IR Score Low 25th 50th 75th High <27 27 45 63 >63LP-IR Score is inaccurate if patient is non-fasting. .The LP-IR score is a laboratory developed i [facility] that has beenassociated with insulin resistance and [...] 1600 - 2000 Very High > 2000 86-Utc-023157:40 HgA1C , Office (27947) HgA1C , Office 6.6 % (Normal) Range: 4.6 - 7.1 47-Chs-479923:40 Blood Glucose , Office (67430) Blood Glucose , Office 75 (Normal) 82-Yky-744917:20 COLON BIOPSY (CHOOSE See Note (Normal) Comments: [facility] [address] [place], [address] SITE) Comments: Patient: YOHANNES CADET : 1945 (72/M) Acct Num: [id number] Phys: Mg Norman Unit Num: [id number] Loc: LABSPEC Specimen: [id number] Received: 09/20/17 - 7872 Spec Type: C OLON BX TISSUES TISSUES: Rectum, NOS GROSS DESCRIPTION Received in fixative is one container labeled with the patient's name and designated rectal polyp. The specimen predominantly consists of fecal material mixed with possible soares soft tissue, measuring in aggregate 2.5 x 0.6 x0.1 cm. The specimen is totally submitted in one cassette. SJ:scott 09/23/17 TC: cannot code CPT: 22902 HEADER OPERATION: Colonoscopy with polypectomy PRE-OP DIAGNOSIS: Rectal bleeding TISSUE SUBMITTED: Rectal polyp MICROSCOPIC DESCRIPTION Slides are reviewed. MICROSCOPIC DIAGNOSIS Rectal polyp, polypectomy: Fragments of fecal material. Colonic mucosal tissue is not identified. SJ:scott 09/24/18 Signed Magdy Mcduffiein 09/24/17 <signature on file> 56-Dxp-674267:08 Microscopic Examination Comments: PATIENT WAS FASTINGPERFORMED BY: CTQuan[place] [id number] Bacteria None seen (Normal) Mucus Threads Present (Normal) Epithelial Cells (non renal) None seen {/hpf} (Normal) Range: 0 - 10 RBC None seen {/hpf} (Normal) Range: 0 - 2 WBC 0-5 {/hpf} (Normal) Range: 0 - 5 55-Hcr-110973:08 T4, FREE (THYROXINE) (70446) Comments: PATIENT WAS FASTINGPERFORMED BY: CT[place] [id number] T4,Free(Direct) 1.27 ng/dL (Normal) Range: 0.82-1.77 94-Kxv-209552:08 T3, FREE (TRIDOTHYRONINE) (71430) Comments: PATIENT WAS FASTINGPERFORMED BY: [place] [id number] Triiodothyronine,Free,Serum 2.7 pg/mL (Normal) Range: 2.0-4.4 30-Zeu-948811:08 CALCIFIDIOL (07076) VIT D 25 Comments: PATIENT WAS FASTINGPERFORMED BY: [employer] Analysisblin [place] [id number] Vitamin D, 25-Hydroxy 57.4 ng/mL (Normal) Range: 30.0-100.0 Comments: Vitamin D deficiency has been defined by the [place] ofMedicine and an Endocrine Society practice guideline as alevel of serum 25-OH vitamin D less than 20 ng/mL (1,2).The Endocrine Society went on to further define vitamin Dinsufficiency as a level between 21 and 29 ng/mL (2).1. IOM ([place] of Medicine). 2010. Dietary reference intakes for calcium and D. [place]: The National Academies Press.2. Charles MF, Raissa OCONNELL, Nirmala ALBERT, et al. Evaluation, treatment, and prevention of vitamin D deficiency: an Endocrine Society clinical practice guideline. JCEM. 2010; 96(7):1911-30. 16-Ljw-417573:08 TSH (14916) Comments: PATIENT WAS FASTINGPERFORMED BY: CTQuanECU [facility] [id number] TSH 3.370 {uIU/mL} (Normal) Range: 0.450-4.500 93-Yrk-896826:08 URINALYSIS, W/ MICRO (95786) Comments: PATIENT WAS FASTINGPERFORMED BY: [employer]70 Ze-genECU [facility] [id number] Microscopic Examination See below: (Normal) Comments: Microscopic was indicated and was performed. Microscopic Examination MICRON (Normal) Comments: Microscopic follows if indicated. Nitrite, Urine Negative (Normal) Urobilinogen,Semi-Qn 0.2 mg/dL (Normal) Range: 0.2-1.0 Bilirubin Negative (Normal) Occult Blood Negative (Normal) Ketones Negative (Normal) Glucose Negative (Normal) Protein Negative (Normal) WBC Esterase Negative (Normal) Appearance Clear (Normal) Urine-Color Yellow (Normal) pH 5.0 (Normal) Range: 5.0-7.5 Specific [place] 1.026 (Normal) Range: 1.005-1.030 46-Nmr-748709:08 MICROALBUMIN: CREATININE RATIO Comments: PATIENT WAS FASTINGPERFORMED BY: [employer] [facility] [id number] (27730) AND (75647) Alb/Creat Ratio 1.3 {mg/g_creat} (Normal) Range: 0.0-30.0 Albumin, Urine 3.1 ug/mL (Normal) Creatinine, Urine 237.2 mg/dL (Normal) 48-Pqe-731911:08 METABOLIC PANEL, COMPREHENSIVE Comments: PATIENT WAS FASTINGPERFORMED BY: GUICHO [employer]70 [facility] [id number] (19833) ALT (SGPT) 17 [iU]/L (Normal) Range: 0-44 [...] 8-27 Glucose 142 mg/dL (Abnormal) Range: 65-99 64-Zvp-051126:08 CBC W/AUTO DIFF WBC (71081) Comments: PATIENT WAS FASTINGPERFORMED BY: [employer]6370 [facility] [id number] Immature Grans (Abs) 0.0 {x10E3/uL} (Normal) Range: [...] 4.14-5.80 WBC 5.5 {x10E3/uL} (Normal) Range: 3.4-10.8 27-Num-538449:08 LIPID PANEL (83702) Comments: PATIENT WAS FASTINGPERFORMED BY: [facility] Hhtscl2154 [facility] [id number] LDL/HDL Ratio 1.2 {ratio} (Normal) Range: 0.0-3.6 Comments: LDL/HDL Ratio Men Women 1/2 Avg.Risk 1.0 1.5 Av g.Risk 3.6 3.2 2X Avg.Risk 6.2 5.0 3X Avg.Risk 8.0 6.1 LDL Cholesterol Calc 51 mg/dL (Normal) Range: 0-99 VLDL Cholesterol Ezequiel 18 mg/dL (Normal) Range: 5-40 HDL Cholesterol 43 mg/dL (Normal) Triglycerides 90 mg/dL (Normal) Range: 0-149 Cholesterol, Total 112 mg/dL (Normal) Range: 100-199 9-Cel-864627:08 HgA1C , Office (37281) HgA1C , Office 6.9 % (Normal) Range: 4.6 - 7.1 9-Wcw-169410:08 Blood Glucose , Office (46756) Blood Glucose , Office 123 (Normal) 8-Dpy-852782:23 Blood Glucose , Office (82524) Blood Glucose , Office 69 (Normal) :23 HgA1C , Office (22176) HgA1C , Office 7.1 % (Normal) Range: 4.6 - 7.1 :23 Blood Glucose , Office (06993) Blood Glucose , Office 84 (Normal) 75-Fnk-650630:06 Microscopic Examination Comments: PATIENT WAS FASTINGPERFORMED BY: Doctors TogetherUNM Sandoval Regional Medical CenterOadqgj6304 [facility] [id number] Bacteria Few (Normal) Mucus Threads Present (Normal) Epithelial Cells (non renal) None seen {/hpf} (Normal) Range: 0 - 10 RBC 0-2 {/hpf} (Normal) Range: 0 - 2 WBC 0-5 {/hpf} (Normal) Range: 0 - 5 5-Ulk-768540:25 Methymalonic Acid, Serum Comments: PATIENT NOT FASTINGPERFORMED BY: Doctors TogetherUNM Sandoval Regional Medical CenterSlvxyi2605 [facility] [id number] BY: RUN[address] [id number] (87451) Methylmalonic Acid, Serum 586 nmol/L (Abnormal) Range: 0-378 8-Etu-063744:25 METABOLIC PANEL, Comments: PATIENT NOT FASTINGPERFORMED BY: Doctors TogetherPatrick [place] 8840370 [facility] [id number] BY: RUN[address] [id number] Inf ormation: [id number], [id number] COMPREHENSIVE (14031) ALT (SGPT) 11 [iU]/L (Normal) Range: 0-44 [...] Glucose, Serum 153 mg/dL (Abnormal) Range: 65-99 9-Omy-888846:25 CBC (AUTO) (12075) Comments: PATIENT NOT FASTINGPERFORMED BY: CB [facility] Ljfaod9374 [facility] [id number] BY: BN [facility] [address] [id number] Platelets 213 {x10E3/uL} (Normal) Range: 150-379 RDW 14.0 % (Normal) Range: 12.3-15.4 MCHC 33.2 g/dL (Normal) Range: 31.5-35.7 MCH 27.5 pg (Normal) Range: 26.6-33.0 MCV 83 fL (Normal) Range: 79-97 Hematocrit 38.2 % (Normal) Range: 37.5-51.0 Hemoglobin 12.7 g/dL (Normal) Range: 12.6-17.7 RBC 4.62 {x10E6/uL} (Normal) Range: 4.14-5.80 WBC 4.6 {x10E3/uL} (Normal) Range: 3.4-10.8 3-Fsg-675208:25 TSH (47353) Comments: PATIENT NOT FASTINGPERFORMED BY: [employer] [facility] Jvzpsz3011 Rosado RoadDublin [place] [id number] BY: [address] [id number] TSH 3.040 {uIU/mL} (Normal) Range: 0.450-4.500 6-Mmx-247703:25 VITAMIN B-12 (CYANOCOBALAMIN) Comments: PATIENT NOT FASTINGPERFORMED BY: [employer] [facility] Lnbwlv7271 Rosado RoadDublin [place] [id number] BY: [address] [id number] (20111) Vitamin B12 227 pg/mL (Normal) Range: 211-946 1-Zod-989310:25 PSA (PROSTATE SPECIFIC Comments: PATIENT NOT FASTINGPERFORMED BY: [employer] [facility] Nvurcp1199 Rosado RoadDublin [place] [id number] BY: RUN[address] [id number] ANTIGEN) (V76.44) Prostate Specific Ag, 2.0 ng/mL (Normal) Range: 0.0-4.0 Serum Comments: Dee ECLIA methodology. .According to the [place] [employer], Serum PSA shoulddecrease and remain at undetectable levels after radicalprostatectomy. The AUA defines biochemical recurrence as an initialPSA value 0.2 ng/mL or greater followed by a subsequent confirmatoryPSA value 0.2 ng/mL or greater.Values obtained with d ifferent assay methods or kits cannot be usedinterchangeably. Results cannot be interpreted as absolute evidenceof the presence or absence of malignant disease. 77-Xtm-403613:06 CALCIFIDIOL (80702) VIT D 25 Comments: PATIENT WAS FASTINGPERFORMED BY: [employer] [facility] Deukjs7402 [address] RoadDublin [place] [id number] Vitamin D, 25-Hydroxy 42.4 ng/mL (Normal) Range: 30.0-100.0 Comments: Vitamin D deficiency has been defined by the [place] ofMedicine and an Endocrine Society practice guideline as alevel of serum 25-OH vitamin D less than 20 ng/mL (1,2).The Endocrine Society went on to further define vitamin Dinsufficiency as a level between 21 and 29 ng/mL (2).1. IOM ([place] of Medicine). 2010. Dietary reference intakes for calcium and D. [place]: The National Academies Press.2. Charles MF, Raissa OCONNELL, Nirmala ALBERT, et al. Evaluation, treatment, and prevention of vitamin D deficiency: an Endocrine Society clinical practice guideline. JCEM. 2010; 96(7):1911-30. :06 TSH (29792) Comments: PATIENT WAS FASTINGPERFORMED BY: [employer] [place] [id number] TSH 3.460 {uIU/mL} (Normal) Range: 0.450-4.500 :06 URINALYSIS, W/ MICRO (68931) Comments: PATIENT WAS FASTINGPERFORMED BY: [facility]QuanECU [facility] [id number] Microscopic Examination See below: (Normal) Comments: Microscopic was indicated and was performed. Microscopic Examination MICRON (Normal) Comments: Microscopic follows if indicated. Nitrite, Urine Negative (Normal) Urobilinogen,Semi-Qn 0.2 mg/dL (Normal) Range: 0.2-1.0 Bilirubin Negative (Normal) Occult Blood Negative (Normal) Ketones Negative (Normal) Glucose Negative (Normal) Protein Negative (Normal) WBC Esterase Negative (Normal) Appearance Clear (Normal) Urine-Color Yellow (Normal) pH 5.0 (Normal) Range: 5.0-7.5 Specific [place] 1.020 (Normal) Range: 1.005-1.030 86-Gaw-384175:06 MICROALBUMIN: CREATININE RATIO Comments: PATIENT WAS FASTINGPERFORMED BY: CTQuanECU [facility] [id number] (56067) AND (89153) Microalb/Creat Ratio <2.4 {mg/g_creat} (Normal) Range: 0.0-30.0 Microalbumin, Urine <3.0 ug/mL (Normal) Creatinine, Urine 127.3 mg/dL (Normal) 15-Jci-562618:06 METABOLIC PANEL, COMPREHENSIVE Comments: PATIENT WAS FASTINGPERFORMED BY: [employer] [facility] Rvrtks6292 [facility] [id number] (88967) ALT (SGPT) 15 [iU]/L (Normal) Range: 0-44 [...] Glucose, Serum 136 mg/dL (Abnormal) Range: 65-99 91-Bdy-394382:06 LIPID PANEL (54416) Comments: PATIENT WAS FASTINGPERFORMED BY: Doctors TogetherUNM Sandoval Regional Medical CenterTnozoq8628 [facility] [id number] LDL/HDL Ratio 1.5 {ratio_units} (Normal) Range: 0.0-3.6 Comments: LDL/HDL Ratio Men Women 1/2 Avg.Risk 1.0 1.5 Av g.Risk 3.6 3.2 2X Avg.Risk 6.2 5.0 3X Avg.Risk 8.0 6.1 LDL Cholesterol Calc 63 mg/dL (Normal) Range: 0-99 VLDL Cholesterol Ezequiel 25 mg/dL (Normal) Range: 5-40 HDL Cholesterol 42 mg/dL (Normal) Triglycerides 126 mg/dL (Normal) Range: 0-149 Cholesterol, Total 130 mg/dL (Normal) Range: 100-199 06-Ljb-233848:06 CBC W/AUTO DIFF WBC (61925) Comments: PATIENT WAS FASTINGPERFORMED BY: [facility] Jqrmwt5235 [facility] [id number] Immature Grans (Abs) 0.0 {x10E3/uL} (Normal) Range: [...] (Normal) Range: 3.4-10.8 :32 HgA1C , Office (50734) HgA1C , Office 7.3 % (Abnormal) Range: 4.6 - 7.1 :32 Blood Glucose , Office (31240) Blood Glucose , Office 185 (Normal) :33 ALDOSTERONE (89579) Comments: PATIENT NOT FASTINGPERFORMED BY: LabCo[address] [id number] Aldosterone 3.8 ng/dL (Normal) Range: 0.0-30.0 Comments: This test was developed and its performance characteristicsdetermined by [employer]. It has not been cleared or approvedby the Food and Drug Administration. :33 RENIN (04822) Comments: PATIENT NOT FASTINGPERFORMED BY: [facility] [address] [id number] Renin Activity, Plasma 0.402 {ng/mL/hr} Range: 0.167-5.380 (Normal) Comments: This test was developed and its performance characteristicsdetermined by [employer]. It has not been cleared or approvedby the Food and Drug Administration. :31 METANEPHRINES - URINE (22261) Comments: PATIENT NOT FASTINGPERFORMED BY: [facility] [address] [id number] Metanephrine, U,24hr 238 {ug/24_hr} (Normal) Range: 45-290 Comments: (Hypertensive) >17 years 11 months: 35 - 460 Metanephrine, Ur 119 ug/L (Normal) Normetanephr.,U,24h 370 {ug/24_hr} (Normal) Range: 82-500 Comments: (Hypertensive) >17 years 11 months: 110 - 1050 Normetanephrine, Ur 185 ug/L (Normal) :31 CATECHOLAMINES TOTAL, URINE Comments: PATIENT NOT FASTINGPERFORMED BY: [facility]1447 [facility] [id number] Information: START 09/25/2016@447AM (73084) Dopamine, Ur, 24hr 280 {ug/24_hr} (Normal) Range: 0-510 Dopamine, Urine 140 ug/L (Normal) Norepinephrine,U,24h 42 {ug/24_hr} (Normal) Range: 0-135 Norepinephrine, Ur 21 ug/L (Normal) Epinephrine, U, 24hr 4 {ug/24_hr} (Normal) Range: 0-20 Epinephrine, Urine 2 ug/L (Normal) 26-Sep-20161:31 URINE VMA (26979) Comments: PATIENT NOT FASTINGPERFORMED BY: [address] [id number] VMA, Urine, 24hr 3.4 {mg/24_hr} (Normal) Range: 0.0-7.5 Comments: This test was developed and its performance characteristicsdetermined by [employer]. It has not been cleared or approvedby the Food and Drug Administration. VMA, Urine 1.7 mg/L (Normal) 27-Mng-130829:05 Microscopic Examination Comments: PATIENT WAS FASTINGPERFORMED BY: [facility] HospitalAllied Payment NetworkSt. Joseph's Regional Medical CenterIltqte4557 [facility] [id number] Bacteria None seen (Normal) Mucus Threads Present (Normal) Epithelial Cells (non renal) None seen {/hpf} (Normal) Range: 0 - 10 RBC 0-2 {/hpf} (Normal) Range: 0 - 2 WBC 0-5 {/hpf} (Normal) Range: 0 - 5 21-Jcm-886707:05 LIPID PANEL (83330) Comments: PATIENT WAS FASTINGPERFORMED BY: [facility]6370 [facility] [id number] LDL/HDL Ratio 1.3 {ratio_units} (Normal) Range: 0.0-3.6 [...] (Normal) Range: 100-199 :05 URINALYSIS, W/ MICRO (07065) Comments: PATIENT WAS FASTINGPERFORMED BY: [employer] BioelectronicsAtrium Health [facility] [id number] Microscopic Examination See below: (Normal) Comments: Microscopic was indicated and was performed. Microscopic Examination MICRON (Normal) Comments: Microscopic follows if indicated. Nitrite, Urine Negative (Normal) Urobilinogen,Semi-Qn 0.2 mg/dL (Normal) Range: 0.2-1.0 Bilirubin Negative (Normal) Occult Blood Negative (Normal) Ketones Negative (Normal) Glucose Negative (Normal) Protein Negative (Normal) WBC Esterase Negative (Normal) Appearance Clear (Normal) Urine-Color Yellow (Normal) pH 5.5 (Normal) Range: 5.0-7.5 Specific [place] 1.024 (Normal) Range: 1.005-1.030 62-Ffn-064371:05 MICROALBUMIN: CREATININE RATIO Comments: PATIENT WAS FASTINGPERFORMED BY: [employer] [address] [facility] [id number] (95233) AND (61781) Microalb/Creat Ratio <1.7 {mg/g_creat} (Normal) Range: 0.0-30.0 Microalbumin, Urine <3.0 ug/mL (Normal) Creatinine, Urine 171.8 mg/dL (Normal) :05 METABOLIC PANEL, COMPREHENSIVE Comments: PATIENT WAS FASTINGPERFORMED BY: [employer] [facility] [id number] (62580) ALT (SGPT) 15 [iU]/L (Normal) Range: 0-44 [...] Glucose, Serum 117 mg/dL (Abnormal) Range: 65-99 63-Nzl-566024:05 CBC W/AUTO DIFF WBC (82179) Comments: PATIENT WAS FASTINGPERFORMED BY: LabCoSt. Joseph's Regional Medical CenterXikdzu8588 [facility] [id number] Immature Grans (Abs) 0.0 {x10E3/uL} (Normal) Range: [...] 4.9 {x10E3/uL} (Normal) Range: 3.4-10.8 :05 TSH (90376) Comments: PATIENT WAS FASTINGPERFORMED BY: [facility] Mdaecl4738 Ranch Networksblin [place] [id number] TSH 3.460 {uIU/mL} (Normal) Range: 0.450-4.500 :05 T4, FREE (THYROXINE) (57115) Comments: PATIENT WAS FASTINGPERFORMED BY: [facility] Wslawm[address] [place] [employer] [id number] T4,Free(Direct) 1.34 ng/dL (Normal) Range: 0.82-1.77 :05 T3, FREE (TRIDOTHYRONINE) (81984) Comments: PATIENT WAS FASTINGPERFORMED BY: [facility] Epusct8053 [address] [facility] [place] [id number] Triiodothyronine,Free,Serum 3.0 pg/mL (Normal) Range: 2.0-4.4 :05 CALCIFIDIOL (00076) VIT D 25 Comments: PATIENT WAS FASTINGPERFORMED BY: [facility] Vimzyc7382 [address] [facility] Hospitalbl[facility] [place] [id number] Vitamin D, 25-Hydroxy 46.6 ng/mL (Normal) Range: 30.0-100.0 Comments: Vitamin D deficiency has been defined by the [place] ofMedicine and an Endocrine Society practice guideline as alevel of serum 25-OH vitamin D less than 20 ng/mL (1,2).The Endocrine Society went on to further define vitamin Dinsufficiency as a level between 21 and 29 ng/mL (2).1. IOM (Per[place]ido of Medicine). 2010. Dietary reference intakes for calcium and D. [place]: The National Academies Press.2. Charles MF, Raissa OCONNELL, Nirmala ALBERT, et al. Evaluation, treatment, and prevention of vitamin D deficiency: an Endocrine Society clinical practice guideline. JCEM. 2010; 96(7):1911-30. :42 HgA1C , Office (11432) HgA1C , Office 6.6 % (Normal) Range: 4.6 - 7.1 :42 Blood Glucose , Office (68439) Blood Glucose , Office 117 (Normal) :59 HgA1C , Office (75535) HgA1C , Office 6.8 % (Normal) Range: 4.6 - 7.1 :59 Blood Glucose , Office (64748) Blood Glucose , Office 237 (Normal) :52 Rapid Flu (46281 x 2) Influenza A Ag neg (Normal) :19 HgA1C , Office (30430) HgA1C , Office 6.6 % (Normal) Range: 4.6 - 7.1 :19 Blood Glucose , Office (35431) Blood Glucose , Office 171 (Normal) :43 Microscopic Examination Comments: PATIENT WAS FASTINGPERFORMED BY: LabCoSt. Joseph's Regional Medical CenterDsoapb9427 [facility] [id number] Bacteria Few (Normal) Mucus Threads Present (Normal) Epithelial Cells (non renal) 0-10 {/hpf} (Normal) Range: 0 - 10 RBC 0-2 {/hpf} (Normal) Range: 0 - 2 WBC 0-5 {/hpf} (Normal) Range: 0 - 5 :53 Serum Creatinine AND GFR Comments: [facility] Dqsfgtphqp30[address] [place], [place], [id number] EST GFR - AA 83 mL/min (Normal) Comments: GFR Calc EST GFR 69 mL/min (Normal) Comments: Non- GFR Calc CREAT,SERUM 1.12 mg/dL (Normal) Range: 0.70-1.30 Comments: The validity of the calculated GFR AND GFRAA in patients over70 years has not been determined. Clinical correlation isessential. :43 CALCIFIDIOL (28378) VIT D 25 Comments: PATIENT WAS FASTINGPERFORMED BY: [employer]70 [facility] [id number] Vitamin D, 25-Hydroxy 55.4 ng/mL (Normal) Range: 30.0-100.0 Comments: Vitamin D deficiency has been defined by the [place] ofMedicine and an Endocrine Society practice guideline as alevel of serum 25-OH vitamin D less than 20 ng/mL (1,2).The Endocrine Society went on to further define vitamin Dinsufficiency as a level between 21 and 29 ng/mL (2).1. IOM ([place]ido of Medicine). 2010. Dietary reference intakes for calcium and D. [place]: The National Academies Press.2. Charles MF, Raissa [place], Nirmala ALBERT, et al. Evaluation, treatment, and prevention of vitamin D deficiency: an Endocrine Society clinical practice guideline. JCEM. 2010; 96(7):1911-30. :43 URINALYSIS, W/ MICRO (13776) Comments: PATIENT WAS FASTINGPERFORMED BY: [employer]6370 [facility] [id number] Microscopic Examination See below: (Normal) Comments: Microscopic was indicated and was performed. Microscopic Examination MICRON (Normal) Comments: Microscopic follows if indicated. Nitrite, Urine Negative (Normal) Urobilinogen,Semi-Qn 0.2 mg/dL (Normal) Range: 0.2-1.0 Bilirubin Negative (Normal) Occult Blood Negative (Normal) Ketones Negative (Normal) Glucose Negative (Normal) Protein Negative (Normal) WBC Esterase Negative (Normal) Appearance Clear (Normal) Urine-Color Yellow (Normal) pH 5.5 (Normal) Range: 5.0-7.5 Specific [place] 1.022 (Normal) Range: 1.005-1.030 9-Hfb-998130:43 MICROALBUMIN: CREATININE RATIO Comments: PATIENT WAS FASTINGPERFORMED BY: RUNVibra Hospital Of Southeastern Michigan6370 [facility] [id number] (57075) AND (47469) Microalb/Creat Ratio <2.4 {mg/g_creat} (Normal) Range: 0.0-30.0 Microalbumin, Urine <3.0 ug/mL (Normal) Creatinine, Urine 122.5 mg/dL (Normal) 8-Thy-520973:43 METABOLIC PANEL, COMPREHENSIVE Comments: PATIENT WAS FASTINGPERFORMED BY: RUNSac-Osage HospitalBnaffd9582 [facility] [id number] (08502) ALT (SGPT) 12 [iU]/L (Normal) Range: 0-44 [...] Glucose, Serum 120 mg/dL (Abnormal) Range: 65-99 :43 TSH (79007) Comments: PATIENT WAS FASTINGPERFORMED BY: [facility]6370 [facility] [id number] TSH 4.010 {uIU/mL} (Normal) Range: 0.450-4.500 7-Lkj-007378:43 LIPID PANEL (16189) Comments: PATIENT WAS FASTINGPERFORMED BY: [facility]6370 [facility] [id number] LDL/HDL Ratio 1.2 {ratio_units} (Normal) Range: 0.0-3.6 [...] Range: 100-199 :43 CBC W/AUTO DIFF WBC (94512) Comments: PATIENT WAS FASTINGPERFORMED BY: [facility]6370 [facility] [id number] Immature Grans (Abs) 0.0 {x10E3/uL} (Normal) Range: [...] (Normal) Range: 3.4-10.8 :27 HgA1C , Office (73623) HgA1C , Office 6.6 % (Normal) Range: 4.6 - 7.1 :27 Blood Glucose , Office (69923) Blood Glucose , Office 168 (Normal) 23-Phh-664844:08 Microscopic Examination Comments: PATIENT WAS FASTINGPERFORMED BY: [employer]6370 [facility]EC[facility] [id number] Bacteria None seen (Normal) Mucus Threads Present (Normal) Epithelial Cells (non renal) None seen {/hpf} (Normal) Range: 0 - 10 RBC None seen {/hpf} (Normal) Range: 0 - 2 WBC 0-5 {/hpf} (Normal) Range: 0 - 5 :08 CALCIFIDIOL (24893) VIT D 25 Comments: PATIENT WAS FASTINGPERFORMED BY: [employer]6370 [facility]EC[facility] [id number] Vitamin D, 25-Hydroxy 62.4 ng/mL (Normal) Range: 30.0-100.0 Comments: Vitamin D deficiency has been defined by the [place] ofMedicine and an Endocrine Society practice guideline as alevel of serum 25-OH vitamin D less than 20 ng/mL (1,2).The Endocrine Society went on to further define vitamin Dinsufficiency as a level between 21 and 29 ng/mL (2).1. IOM ([place] of Medicine). 2010. Dietary reference intakes for calcium and D. [place]: The National Academies Press.2. Charles MF, Raissa OCONNELL, Nirmala ALBERT, et al. Evaluation, treatment, and prevention of vitamin D deficiency: an Endocrine Society clinical practice guideline. JCEM. 2010; 96(7):1911-30. 34-Ahy-224945:08 URINALYSIS, W/ MICRO (17751) Comments: PATIENT WAS FASTINGPERFORMED BY: CTQuanECU [facility] Hospital [id number] Microscopic Examination See below: (Normal) Comments: Microscopic was indicated and was performed. Microscopic Examination MICRON (Normal) Comments: Microscopic follows if indicated. Nitrite, Urine Negative (Normal) Urobilinogen,Semi-Qn 0.2 mg/dL (Normal) Range: 0.2-1.0 Bilirubin Negative (Normal) Occult Blood Negative (Normal) Ketones Negative (Normal) Glucose Negative (Normal) Protein Negative (Normal) WBC Esterase Negative (Normal) Appearance Clear (Normal) Urine-Color Yellow (Normal) pH 6.0 (Normal) Range: 5.0-7.5 Specific [place] 1.022 (Normal) Range: 1.005-1.030 49-Hdw-753935:08 MICROALBUMIN: CREATININE RATIO Comments: PATIENT WAS FASTINGPERFORMED BY: [employer] Formerly [facility] HospitalHubHumanECU [facility] [id number] (40968) AND (41216) Microalb/Creat Ratio <1.8 {mg/g_creat} (Normal) Range: 0.0-30.0 Microalbumin, Urine <3.0 ug/mL (Normal) Creatinine, Urine 164.4 mg/dL (Normal) 97-Ykl-831878:08 METABOLIC PANEL, COMPREHENSIVE Comments: PATIENT WAS FASTINGPERFORMED BY: [employer] [facility] HospitalHubHumanEC[facility] [id number] (83719) ALT (SGPT) 16 [iU]/L (Normal) Range: 0-44 [...] Glucose, Serum 108 mg/dL (Abnormal) Range: 65-99 57-Eky-048915:08 LIPID PANEL (48169) Comments: PATIENT WAS FASTINGPERFORMED BY: LabCoSt. Joseph's Regional Medical CenterWzyjau2950 [facility] [id number] LDL/HDL Ratio 1.4 {ratio_units} (Normal) Range: 0.0-3.6 [...] DIFF WBC Comments: PATIENT WAS FASTINGPERFORMED BY: RUNVibra Hospital Of Southeastern Michigan6370 [facility] [id number] Information: [id number] (53156) Immature Grans (Abs) 0.0 {x10E3/uL} (Normal) Range: [...] 5.5 {x10E3/uL} (Normal) Range: 3.4-10.8 :08 TSH (82717) Comments: PATIENT WAS FASTINGPERFORMED BY: [facility]6370 [facility] [id number] TSH 4.000 {uIU/mL} (Normal) Range: 0.450-4.500 :03 HgA1C , Office (19599) HgA1C , Office 6.2 % (Normal) Range: 4.6 - 7.1 :03 Blood Glucose , Office (85161) Blood Glucose , Office 102 (Normal) :49 Throat Culture (12796) Comments: PATIENT NOT FASTINGPERFORMED BY: [employer] [facility] [id number] Information: SRC:THRT [id number] Result 1 RRF (Normal) Comments: Routine respiratory alfredo Upper Respiratory Culture Final report (Normal) :02 Rapid Strep Test, Office (72009) Rapid Strep Test, Office Negative (Normal) :48 Influenza A&B Viral Comments: PATIENT NOT FASTINGPERFORMED BY: [employer] [facility] [id number] Information: SRC:NOS [id number] Culture (70824) Viral Culture,Rapid,Influenza FLUABN (Normal) Comments: Negative:No Influenza A or B detected. :26 Rapid Flu (81209 x 2) Influenza A Ag negative (Normal) :30 HgA1C , Office (02881) HgA1C , Office 7.3 % (Abnormal) Range: 4.6 - 7.1 :30 Blood Glucose , Office (93530) Blood Glucose , Office 191 (Normal) :52 Microscopic Examination Comments: PATIENT WAS FASTINGPERFORMED BY: [facility] Xwqwll7775 [facility] [id number] Bacteria None seen (Normal) Mucus Threads Present (Normal) Epithelial Cells (non renal) 0-10 {/hpf} (Normal) Range: 0 - 10 RBC 0-2 {/hpf} (Normal) Range: 0 - 2 WBC 0-5 {/hpf} (Normal) Range: 0 - 5 :52 CALCIFIDIOL (26810) VIT D 25 Comments: PATIENT WAS FASTINGPERFORMED BY: [employer] [facility] [id number] Vitamin D, 25-Hydroxy 44.9 ng/mL (Normal) Range: 30.0-100.0 Comments: Vitamin D deficiency has been defined by the [place] ofMedicine and an Endocrine Society practice guideline as alevel of serum 25-OH vitamin D less than 20 ng/mL (1,2).The Endocrine Society went on to further define vitamin Dinsufficiency as a level between 21 and 29 ng/mL (2).1. IOM ([place] of Medicine). 2010. Dietary reference intakes for calcium and D. [place]: The National Academies Press.2. Charles MF, Raissa OCONNELL, Nirmala ALBERT, et al. Evaluation, treatment, and prevention of vitamin D deficiency: an Endocrine Society clinical practice guideline. JCEM. 2010; 96(7):1911-30. :52 LIPID PANEL (18346) Comments: PATIENT WAS FASTINGPERFORMED BY: [employer] [facility] [id number] LDL/HDL Ratio 2.4 {ratio_units} (Normal) Range: 0.0-3.6 [...] 196 mg/dL (Normal) Range: 100-199 :52 TSH (28818) Comments: PATIENT WAS FASTINGPERFORMED BY: [employer] Former[facility] HospitalHubHumanEC[facility] [id number] TSH 4.480 {uIU/mL} (Normal) Range: 0.450-4.500 :52 URINALYSIS, W/ MICRO (80354) Comments: PATIENT WAS FASTINGPERFORMED BY: CTQuanblin [place] [id number] Microscopic Examination See below: (Normal) Comments: Microscopic was indicated and was performed. Microscopic Examination MICRON (Normal) Comments: Microscopic follows if indicated. Nitrite, Urine Negative (Normal) Urobilinogen,Semi-Qn 0.2 mg/dL (Normal) Range: 0.2-1.0 Bilirubin Negative (Normal) Occult Blood Negative (Normal) Ketones Negative (Normal) Glucose Negative (Normal) Protein Negative (Normal) WBC Esterase Negative (Normal) Appearance Clear (Normal) Urine-Color Yellow (Normal) pH 6.0 (Normal) Range: 5.0-7.5 Specific [place] 1.024 (Normal) Range: 1.005-1.030 :52 MICROALBUMIN: CREATININE RATIO Comments: PATIENT WAS FASTINGPERFORMED BY: [facility]6370 [facility] [id number] (03256) AND (98363) Microalb/Creat Ratio <2.2 {mg/g_creat} (Normal) Range: 0.0-30.0 Microalbumin, Urine <3.0 ug/mL (Normal) Range: 0.0-17.0 Creatinine, Urine 135.9 mg/dL (Normal) Range: 22.0-328.0 :52 METABOLIC PANEL, COMPREHENSIVE Comments: PATIENT WAS FASTINGPERFORMED BY: [facility]6370 [facility] [id number]; will review at 02/21 appt (93276) ALT (SGPT) 13 [iU]/L (Normal) Range: 0-44 [...] Glucose, Serum 130 mg/dL (Abnormal) Range: 65-99 39-Zdx-29888:52 CBC W/AUTO DIFF WBC Comments: PATIENT WAS FASTINGPERFORMED BY: [facility] Kqxgmk6995 [facility] [id number] Information: [id number] (48316) Immature Grans (Abs) 0.0 {x10E3/uL} (Normal) Range: [...] (Normal) Range: 3.4-10.8 :56 HgA1C , Office (86956) HgA1C , Office 5.9 % (Normal) Range: 4.6 - 7.1 :56 Blood Glucose , Office (13590) Blood Glucose , Office 103 (Normal) :35 HgA1C , Office (18012) HgA1C , Office 6.0 % (Normal) Range: 4.6 - 7.1 :34 Blood Glucose , Office (77262) Blood Glucose , Office 135 (Normal) :45 Potassium Comments: Test performed at:[facility] Vwjagumavb4513 [place], [place] [id number] K 4.3 mmol/L (Normal) Range: 3.5-5.1 :54 Comp. Metabolic Panel (14) Comments: PATIENT WAS FASTINGPERFORMED BY: LabCoSt. Joseph's Regional Medical CenterCkvlag7376 [facility] [id number] Information: [id number] ALT (SGPT) 11 [iU]/L (Normal) Range: 0-44 [...] Glucose, Serum 117 mg/dL (Abnormal) Range: 65-99 82-Vpo-54149:54 Lipid Panel With LDL/HDL Comments: PATIENT WAS FASTINGPERFORMED BY: CTQuanECU [facility] [id number] Ratio LDL/HDL Ratio 2.1 {ratio_units} Range: 0.0-3.6 [...] 2.860 {uIU/mL} Comments: PATIENT WAS FASTINGPERFORMED BY: [employer]70 [facility]genEC[facility] [id number] 9:54 (Normal) Range: 0.450-4.500 02-Aug-2014 Vitamin D, 25-Hydroxy 61.9 ng/mL (Normal) Comments: PATIENT WAS FASTINGPERFORMED BY: [employer] Zlxeva5522 [facility] [place] [id number] 9:54 Range: 30.0-100.0 Comments: Vitamin D deficiency has been defined by the [place] ofMedicine and an Endocrine Society practice guideline as alevel of serum 25-OH vitamin D less than 20 ng/mL (1,2).The Endocrine Society went on to further define vitamin Dinsufficiency as a level between 21 and 29 ng/mL (2).1. IOM (Perdido of Medicine). 2010. Dietary reference intakes for calcium and D. [place]: The National Academies Press.2. Charles MF, Raissa OCONNELL, Nirmala ALBERT, et al. Evaluation, treatment, and prevention of vitamin D deficiency: an Endocrine Society clinical practice guideline. JCEM. 2010; 96(7):1911-30. :13 HgA1C , Office (72509) HgA1C , Office 6.8 % (Normal) Range: 4.6 - 7.1 :13 Blood Glucose , Office (65347) Blood Glucose , Office 218 (Normal) 41-Yhe-372798:24 Microscopic Examination Comments: PATIENT WAS FASTINGPERFORMED BY: [facility] Bfwpuh0331 [facility] [id number] Bacteria None seen (Normal) Mucus Threads Present (Normal) Epithelial Cells (non renal) None seen {/hpf} (Normal) Range: 0 - 10 RBC 0-2 {/hpf} (Normal) Range: 0 - 2 WBC 0-5 {/hpf} (Normal) Range: 0 - 5 80-Chr-986884:24 Vitamin D Hydroxy (83697) Comments: PATIENT WAS FASTINGPERFORMED BY: [employer] Vpdtbg2471 [facility] [id number] Vitamin D, 25-Hydroxy 35.7 ng/mL (Normal) Range: 30.0-100.0 Comments: Vitamin D deficiency has been defined by the [place] ofMedicine and an Endocrine Society practice guideline as alevel of serum 25-OH vitamin D less than 20 ng/mL (1,2).The Endocrine Society went on to further define vitamin Dinsufficiency as a level between 21 and 29 ng/mL (2).1. IOM (Perdido of Medicine). 2010. Dietary reference intakes for calcium and D. [place]: The National Academies Press.2. Charles MF, Raissa OCONNELL, Nirmala ALBERT, et al. Evaluation, treatment, and prevention of vitamin D deficiency: an Endocrine Society clinical practice guideline. JCEM. 2010; 96(7):1911-30. 77-Njj-915521:24 URINALYSIS, W/ MICRO (63083) Comments: PATIENT WAS FASTINGPERFORMED BY: [employer]70 [facility] [id number] Microscopic Examination See below: (Normal) Comments: Microscopic was indicated and was performed. Microscopic Examination MICRON (Normal) Comments: Microscopic follows if indicated. Nitrite, Urine Negative (Normal) Urobilinogen,Semi-Qn 0.2 mg/dL (Normal) Range: 0.0-1.9 Bilirubin Negative (Normal) Occult Blood Negative (Normal) Ketones Negative (Normal) Glucose Negative (Normal) Protein Negative (Normal) WBC Esterase Negative (Normal) Appearance Clear (Normal) Urine-Color Yellow (Normal) pH 6.0 (Normal) Range: 5.0-7.5 Specific [place] 1.025 (Normal) Range: 1.005-1.030 75-Pai-348780:24 TSH (15602) Comments: PATIENT WAS FASTINGPERFORMED BY: [employer]6370 [facility] [id number] TSH 2.740 {uIU/mL} (Normal) Range: 0.450-4.500 72-Qwi-821069:24 MICROALBUMIN: CREATININE RATIO Comments: PATIENT WAS FASTINGPERFORMED BY: [employer] Ieytdm2467 [facility] [id number] (44358) AND (93342) Microalb/Creat Ratio <1.5 {mg/g_creat} (Normal) Range: 0.0-30.0 Microalbumin, Urine <3.0 ug/mL (Normal) Range: 0.0-17.0 Creatinine, Urine 205.5 mg/dL (Normal) Range: 22.0-328.0 81-Epw-137201:24 METABOLIC PANEL, COMPREHENSIVE Comments: PATIENT WAS FASTINGPERFORMED BY: [facility] TogetherSt. [facility]'s Regional Medical CenterHrqqwn2640 [facility] [id number] (05231) ALT (SGPT) 13 [iU]/L (Normal) Range: 0-44 [...] Glucose, Serum 138 mg/dL (Abnormal) Range: 65-99 24-Wid-553058:24 LIPID PANEL (82245) Comments: PATIENT WAS FASTINGPERFORMED BY: [facility] TogetherSt. [facility] Regional Medical CenterGzimxp4907 [facility] [id number] LDL/HDL Ratio 3.2 {ratio_units} (Normal) Range: 0.0-3.6 [...] Cholesterol, Total 221 mg/dL (Abnormal) Range: 100-199 66-Eva-652492:24 CBC W/AUTO DIFF WBC Comments: PATIENT WAS FASTINGPERFORMED BY: LabCoSt. Joseph's Regional Medical CenterNgcota5399 [facility] [id number] Information: [id number] (70226) Immature Grans (Abs) 0.0 {x10E3/uL} (Normal) Range: [...] 3.4-10.8 :00 Fecal Occult Blood , Office (97215) Fecal Occult Blood , Office (Inhouse) negative (Normal) :57 PSA (PROSTATE SPECIFIC Comments: PATIENT NOT FASTINGPERFORMED BY: Doctors TogetherUNM Sandoval Regional Medical CenterRpfucn3798 [facility] [id number] Information: [id number] ANTIGEN) (V76.44) Prostate Specific Ag, 1.5 ng/mL (Normal) Range: 0.0-4.0 Serum Comments: Parkit EnterpriseIA methodology. .According to the [place] U[employer], Serum PSA shoulddecrease and remain [...] of malignant disease. :17 HgA1C , Office (04655) HgA1C , Office 7.0 % (Normal) Range: 4.6 - 7.1 30-Upv-874695:17 Blood Glucose , Office (30347) Blood Glucose , Office 118 (Normal) :50 HgA1C , Office (93399) HgA1C , Office 7.6 % (Abnormal) Range: 4.6 - 7.1 :50 Blood Glucose , Office (04261) Blood Glucose , Office 142 (Normal) 0-Qyd-982923:44 Microscopic Examination Comments: PATIENT WAS FASTINGPERFORMED BY: Doctors TogetherUNM Sandoval Regional Medical CenterJunhsi8173 [facility] [id number] Bacteria None seen (Normal) Mucus Threads Present (Normal) Epithelial Cells (non renal) None seen {/hpf} (Normal) Range: 0 - 10 RBC 0-2 {/hpf} (Normal) Range: 0 - 2 WBC 0-5 {/hpf} (Normal) Range: 0 - 5 3-Dos-886582:32 URINALYSIS, W/ MICRO (06894) Comments: PATIENT WAS FASTINGPERFORMED BY: [facility] Mleqzd7546 [facility] [id number] Microscopic Examination See below: (Normal) Comments: Microscopic was indicated and was performed. Microscopic Examination MICRON (Normal) Comments: Microscopic follows if indicated. Nitrite, Urine Negative (Normal) Urobilinogen,Semi-Qn 0.2 mg/dL (Normal) Range: 0.0-1.9 Bilirubin Negative (Normal) Ketones Negative (Normal) Occult Blood Negative (Normal) Glucose Trace (Abnormal) Protein Negative (Normal) WBC Esterase Negative (Normal) Appearance Clear (Normal) Urine-Color Yellow (Normal) pH 6.0 (Normal) Range: 5.0-7.5 Specific [place] 1.024 (Normal) Range: 1.005-1.030 :32 MICROALBUMIN: CREATININE RATIO Comments: PATIENT WAS FASTINGPERFORMED BY: [facility] [employer] [facility] [id number] (47332) AND (80740) Microalb/Creat Ratio 1.3 {mg/g_creat} (Normal) Range: 0.0-30.0 Creatinine, Urine 188.3 mg/dL (Normal) Range: 22.0-328.0 Microalbumin, Urine 2.4 ug/mL (Normal) Range: 0.0-17.0 :32 TSH (77801) Comments: PATIENT WAS FASTINGPERFORMED BY: [facility] Nokfie1174 [facility] [id number] TSH 3.250 {uIU/mL} (Normal) Range: 0.450-4.500 0-Kpv-499226:32 METABOLIC PANEL, COMPREHENSIVE Comments: PATIENT WAS FASTINGPERFORMED BY: [facility] [place] [facility] [id number]; will review at 10/08 appt (19679) ALT (SGPT) 22 [iU]/L (Normal) Range: 0-44 [...] Glucose, Serum 152 mg/dL (Abnormal) Range: 65-99 0-Ogz-998917:32 LIPID PANEL (42191) Comments: PATIENT WAS FASTINGPERFORMED BY: [employer]70 [facility] [id number] LDL/HDL Ratio 2.0 {ratio_units} (Normal) Range: 0.0-3.6 LDL Cholesterol Calc 84 mg/dL (Normal) Range: 0-99 HDL Cholesterol 43 mg/dL (Normal) Comments: According to ATP-III Guidelines, HDL-C >59 mg/dL is considered anegative risk factor for CHD. VLDL Cholesterol Ezequiel 24 mg/dL (Normal) Range: 5-40 Triglycerides 121 mg/dL (Normal) Range: 0-149 Cholesterol, Total 151 mg/dL (Normal) Range: 100-199 1-Bgy-024827:32 CBC WITH MANUAL DIFF Comments: PATIENT WAS FASTINGPERFORMED BY: [employer]6370 [employer] [facility] [id number] Information: [id number] (23268) Immature Grans (Abs) 0.0 {x10E3/uL} (Normal) Range: [...] (Normal) Range: 3.4-10.8 :37 HgA1C , Office (29856) HgA1C , Office 7.1 % (Normal) Range: 4.6 - 7.1 :37 Blood Glucose , Office (43582) Blood Glucose , Office 142 (Normal) :39 Microscopic Examination Comments: PATIENT WAS FASTINGPERFORMED BY: [place] 7445570 [facility] [id number] Bacteria None seen (Normal) Mucus Threads Present (Normal) Epithelial Cells (non renal) None seen {/hpf} (Normal) Range: 0 - 10 RBC None seen {/hpf} (Normal) Range: 0 - 3 WBC 0-5 {/hpf} (Normal) Range: 0 - 5 :13 Vitamin D Hydroxy (51112) Comments: PATIENT WAS FASTINGPERFORMED BY: [facility] Jcppkl5802 [facility] [id number] Vitamin D, 25-Hydroxy 35.9 ng/mL (Normal) Range: 30.0-100.0 Comments: Vitamin D deficiency has been defined by the Perdido ofMedicine and an Endocrine Society practice guideline as alevel of serum 25-OH vitamin D less than 20 ng/mL (1,2).The Endocrine Society went on to further define vitamin Dinsufficiency as a level between 21 and 29 ng/mL (2).1. IOM (Perdido of Medicine). 2010. Dietary reference intakes for calcium and D. [place]: The National Academies Press.2. Charles MF, Raissa OCONNELL, Nirmala ALBERT, et al. Evaluation, treatment, and prevention of vitamin D deficiency: an Endocrine Society clinical practice guideline. JCEM. 2010; 96(7):1911-30. :13 TSH (78479) Comments: PATIENT WAS FASTINGPERFORMED BY: [facility] Bafxev1938 [facility] [place] [id number] TSH 4.190 {uIU/mL} (Normal) Range: 0.450-4.500 :13 URINALYSIS, W/ MICRO (90386) Comments: PATIENT WAS FASTINGPERFORMED BY: [facility] Etnojd0935 [facility] [place] [id number] Microscopic Examination See below: (Normal) Microscopic Examination MICRON (Normal) Comments: Microscopic follows if indicated. Nitrite, Urine Negative (Normal) Urobilinogen,Semi-Qn 0.2 mg/dL (Normal) Range: 0.0-1.9 Bilirubin Negative (Normal) Occult Blood Negative (Normal) Ketones Negative (Normal) Glucose Negative (Normal) Protein Negative (Normal) Appearance Clear (Normal) WBC Esterase Negative (Normal) Urine-Color Yellow (Normal) pH 7.0 (Normal) Range: 5.0-7.5 Specific [place] 1.023 (Normal) Range: 1.005-1.030 :13 MICROALBUMIN: CREATININE RATIO Comments: PATIENT WAS FASTINGPERFORMED BY: [employer] Sefmdj0589 [facility] [id number] (53843) AND (48632) Microalb/Creat Ratio 1.4 {mg/g_creat} (Normal) Range: 0.0-30.0 Creatinine, Urine 177.1 mg/dL (Normal) Range: 22.0-328.0 Microalbumin, Urine 2.5 ug/mL (Normal) Range: 0.0-17.0 :13 METABOLIC PANEL, COMPREHENSIVE Comments: PATIENT WAS FASTINGPERFORMED BY: [employer]6370 [facility] [id number] (84880) ALT (SGPT) 17 [iU]/L (Normal) Range: 0-44 [...] mg/dL (Abnormal) Range: 65-99 :13 LIPID PANEL (82851) Comments: PATIENT WAS FASTINGPERFORMED BY: [employer]70 [facility] [id number] LDL/HDL Ratio 1.8 {ratio_units} (Normal) Range: 0.0-3.6 [...] MANUAL DIFF Comments: PATIENT WAS FASTINGPERFORMED BY: [employer]6370 [facility] [id number] Information: [id number] (38906) Immature Grans (Abs) 0.0 {x10E3/uL} (Normal) Range: [...] (Normal) Range: 3.4-10.8 :31 HgA1C , Office (15176) HgA1C , Office 6.7 % (Normal) Range: 4.6 - 7.1 :31 Blood Glucose , Office (87248) Blood Glucose , Office 141 (Normal) :55 HgA1C , Office (57810) HgA1C , Office 6.4 % (Normal) Range: 4.6 - 7.1 :55 Blood Glucose , Office (41572) Blood Glucose , Office 116 (Normal) 32-Uxz-861336:33 Microscopic Examination Comments: PATIENT WAS FASTINGPERFORMED BY: [facility] Scjjhl8450 [facility] [id number] Bacteria None seen (Normal) Mucus Threads Present (Normal) Epithelial Cells (non renal) None seen {/hpf} (Normal) Range: 0 - 10 RBC 0-3 {/hpf} (Normal) Range: 0 - 3 WBC 0-5 {/hpf} (Normal) Range: 0 - 5 45-Nkr-605131:33 PSA (PROSTATE SPECIFIC Comments: PATIENT WAS FASTINGPERFORMED BY: [employer] Opwptl6753 [facility] [id number] ANTIGEN) (V76.44) Prostate Specific Ag, 1.5 ng/mL (Normal) Range: 0.0-4.0 Serum Comments: Dee ECLIA methodology. .According to the [place] [employer], Serum PSA shoulddecrease and remain at undetectable levels after radicalprostatectomy. The AUA defines biochemical recurrence as an initialPSA value 0.2 ng/mL or greater followed by a subsequent confirmatoryPSA value 0.2 ng/mL or greater.Values obtained with d ifferent assay methods or kits cannot be usedinterchangeably. Results cannot be interpreted as absolute evidenceof the presence or absence of malignant disease. TSH (53766) Comments: PATIENT WAS FASTINGPERFORMED BY: [facility] [id number] TSH 2.770 {uIU/mL} (Normal) Range: 0.450-4.500 URINALYSIS, W/ MICRO (74062) Comments: PATIENT WAS FASTINGPERFORMED BY: CTQuanECU [facility] [id number] Microscopic Examination See below: (Normal) Microscopic Examination MICRON (Normal) Comments: Microscopic follows if indicated. Nitrite, Urine Negative (Normal) Urobilinogen,Semi-Qn 0.2 mg/dL (Normal) Range: 0.0-1.9 Bilirubin Negative (Normal) Occult Blood Negative (Normal) Ketones Negative (Normal) Glucose Negative (Normal) Protein Negative (Normal) WBC Esterase Negative (Normal) Appearance Clear (Normal) Urine-Color Yellow (Normal) pH 6.0 (Normal) Range: 5.0-7.5 Specific [place] 1.026 (Normal) Range: 1.005-1.030 :33 MICROALBUMIN: CREATININE RATIO Comments: PATIENT WAS FASTINGPERFORMED BY: [employer]6370 [facility]EC[facility] [id number] (28013) AND (80641) Microalb/Creat Ratio 1.8 {mg/g_creat} (Normal) Range: 0.0-30.0 Microalbumin, Urine 3.6 ug/mL (Normal) Range: 0.0-17.0 Creatinine, Urine 203.4 mg/dL (Normal) Range: 22.0-328.0 33 METABOLIC PANEL, COMPREHENSIVE Comments: PATIENT WAS FASTINGPERFORMED BY: modulRCo Ktvzvb2568 [facility] [id number] (54316) ALT (SGPT) 16 [iU]/L (Normal) Range: 0-44 [...] Glucose, Serum 114 mg/dL (Abnormal) Range: 65-99 63-Qnt-477751:33 LIPID PANEL (57337) Comments: PATIENT WAS FASTINGPERFORMED BY: Doctors TogetherSt. Joseph's Regional Medical CenterSwzbbr8689 [facility] [id number] LDL/HDL Ratio 1.3 {ratio_units} (Normal) Range: 0.0-3.6 LDL Cholesterol Calc 63 mg/dL (Normal) Range: 0-99 VLDL Cholesterol Ezequiel 25 mg/dL (Normal) Range: 5-40 HDL Cholesterol 47 mg/dL (Normal) Comments: According to ATP-III Guidelines, HDL-C >59 mg/dL is considered anegative risk factor for CHD. Triglycerides 123 mg/dL (Normal) Range: 0-149 Cholesterol, Total 135 mg/dL (Normal) Range: 100-199 08-Glr-565999:33 CBC WITH MANUAL DIFF Comments: PATIENT WAS FASTINGPERFORMED BY: LabCoSt. Joseph's Regional Medical CenterWjmpxn4240 [facility] [id number] Information: [id number] (24158) Immature Grans (Abs) 0.0 {x10E3/uL} (Normal) Range: [...] (Normal) Range: 4.0-10.5 :22 HgA1C , Office (53184) HgA1C , Office 6.3 % (Normal) Range: 4.6 - 7.1 :22 Blood Glucose , Office (16250) Blood Glucose , Office 109 (Normal) :49 ALDOS 9.3 ng/dL (Normal) Range: 0.0-30.0 :49 CATU tDOP24 674 Range: 0-510 {ug/24_hr} Comments: TESTING PERFORMED AT [facility]. ORIGINAL REPORT ONFILE IN LAB CONTAINS ADDITIONAL [...] metanephrines and plasma catecolamines. TESTING PERFORMED AT [facility]. ORIGINAL REPORT ONFILE IN LAB [...] >150 0.39 - 1.31Performed at: - [facility] [address] [id number] Director: Bruno Williamson MD, Phone: [phone] - (Normal) [facility] y - 2 0 1 3 9 : 4 9 :49 VMA tVMA24 4.6 {mg/24_hr} (Normal) Range: 0.0-7.5 tVMA 2.2 mg/L (Normal) 64-Tlh-679105:15 BMP CO2 30.0 mmol/L (Normal) Range: 21.0-32.0 [...] 126 mg/dLsuggests DIABETES MELLITUS per A.D.A. criteria. 53-Est-251471:15 CBCD ANC 3.6 3/uL (Normal) Range: 2.0-7.7 [...] 4.6-6.2 WBC 6.4 {k/mm3} (Normal) Range: 4.4-11.0 23-Ilp-42447:00 BRAIN W/WO CONTRAST Radiology Report See Note [...] Stauffer M.D.August 08, 2012 at 10:05:25 PM [id number] Signed AH/ If you are the referring physician and would like to consult with theradiologist who provided this interpretation, please contact Chad Mast at [phone]. If this radiologist is unavailable,you will be directed to another radiologist to assist. If you are a patient with a question regarding this report, pleasecontactyour referring physician directly . Professional Interpretation Provided By: [employer] Phone , These documents contain legally protected [...] on 08/08/122207 Sign by: MIKHAIL STAUFFER MD 98-Bcp-692387:32 BRAIN/HEAD WITHOUT CONTRAST Radiology Report See Note [...] Fontenot M.D.August 04, 2012 at 5:16:58 PM [id number] Signed DN/DN If you are the referring physician and would like to consult with theradiologist who pro vided this interpretation, please contact Heather Ng M.D. at [phone]. If this radiologist is unavailable, youwillbe directed to another radiologist to assist. If you are a patient with a quest ion regarding this report, pleasecontactyour referring physician directly. Professional Interpretation Provided By: [employer] Phone , These documents contain legally pro [...] 08/04/121718 Sign by: ___ HEATHER FONTENOT MD 92-Azm-561431:36 CBCD ANC 4.1 3/uL (Normal) Range: 2.0-7.7 [...] Comments: PATIENT NOT FASTINGPERFORMED BY: GUICHO [facility] Ucdtng5975 [facility] [id number] Information: [id number] COMPREHENSIVE (98704) ALT (SGPT) 13 [iU]/L (Normal) Range: 0-44 [...] (Normal) Range: 65-99 :01 HgA1C , Office (12944) HgA1C , Office 6.2 % (Normal) Range: 4.6 - 7.1 :01 Blood Glucose , Office (22825) Blood Glucose , Office 89 (Normal) :48 Microscopic Examination Comments: PATIENT WAS FASTINGPERFORMED BY: [facility] Kbepos8885 [facility] [id number] Bacteria Few (Normal) Mucus Threads Present (Normal) Epithelial Cells (non renal) None seen {/hpf} (Normal) Range: 0 - 10 RBC 0-3 {/hpf} (Normal) Range: 0 - 3 WBC 0-5 {/hpf} (Normal) Range: 0 - 5 :48 TSH (23806) Comments: PATIENT WAS FASTINGPERFORMED BY: [facility] Qakaik5849 [facility] [id number] TSH 5.340 {uIU/mL} (Abnormal) Range: 0.450-4.500 :48 URINALYSIS, W/ MICRO (83744) Comments: PATIENT WAS FASTINGPERFORMED BY: [facility] Fodqzc8640 [facility] [id number] Microscopic Examination See below: (Normal) Microscopic Examination MICRON (Normal) Comments: Microscopic follows if indicated. Bilirubin Negative (Normal) Nitrite, Urine Negative (Normal) Urobilinogen,Semi-Qn 0.2 mg/dL (Normal) Range: 0.0-1.9 Occult Blood Negative (Normal) Ketones Negative (Normal) Glucose Negative (Normal) Protein Negative (Normal) WBC Esterase Negative (Normal) Appearance Clear (Normal) pH 5.5 (Normal) Range: 5.0-7.5 Urine-Color Yellow (Normal) Specific [place] 1.028 (Normal) Range: 1.005-1.030 :48 MICROALBUMIN: CREATININE RATIO Comments: PATIENT WAS FASTINGPERFORMED BY: RUNVib[facility]6370 [facility] [id number] (28656) AND (66331) Microalb/Creat Ratio 1.6 {mg/g_creat} (Normal) Range: 0.0-30.0 Creatinine, Urine 195.7 mg/dL (Normal) Range: 22.0-328.0 Microalbumin, Urine 3.2 ug/mL (Normal) Range: 0.0-17.0 :48 METABOLIC PANEL, COMPREHENSIVE Comments: PATIENT WAS FASTINGPERFORMED BY: [facility] Fodjwy5329 [facility] [id number] (44244) ALT (SGPT) 16 [iU]/L (Normal) Range: 0-44 [...] mg/dL (Normal) Range: 65-99 :48 LIPID PANEL (54732) Comments: PATIENT WAS FASTINGPERFORMED BY: [facility] Ysnflx1540 [facility] [id number] LDL Cholesterol Calc 97 mg/dL (Normal) Range: 0-99 LDL/HDL Ratio 1.7 {ratio_units} (Normal) Range: 0.0-3.6 HDL Cholesterol 57 mg/dL (Normal) Comments: According to ATP-III Guidelines, HDL-C >59 mg/dL is considered anegative risk factor for CHD. VLDL Cholesterol Ezequiel 24 mg/dL (Normal) Range: 5-40 Cholesterol, Total 178 mg/dL (Normal) Range: 100-199 Triglycerides 120 mg/dL (Normal) Range: 0-149 65-Nzf-80727:48 CBC WITH MANUAL DIFF Comments: PATIENT WAS FASTINGPERFORMED BY: LabVibra [facility]6370 [facility] [id number] Information: [id number] (54916) Immature Grans (Abs) 0.0 {x10E3/uL} (Normal) Range: [...] (Normal) Range: 4.0-10.5 :46 HgA1C , Office (50246) HgA1C , Office 6.1 % (Normal) Range: 4.6 - 7.1 :46 Blood Glucose , Office (58844) Blood Glucose , Office 91 (Normal) 6-Tmv-204090:25 HEPATOBILLIARY IMG W/PHARM INT Radiology Report See [...] Cholecystokinin (0.02 ug/kg) was administered intravenously over t73-bjjsqx period. The post CCK gallbladder ejection fraction lbdyjfqeiwfc30 minutes following Cholecystokinin administration was noted to [...] Richmond M.D.December 24, 2011 at 8:34:10 PM [id number] S igned RB/RB If you are the referring physician and would like to consult with theradiologist who provided this interpretation, please contact Chad Aragon at [phone]. If this radiologist is un available, you will bedirected to another radiologist to assist. If you are a patient with a question regarding this report, pleasecontactyour referring physician directly. Professional Interpretation P rovided By: [employer] Phone , These documents contain legally protected [...] on 12/24/112116 Sign by: Aamir Richmond DO 05-Ooj-07214:56 GALLBLADDER Radiology Report See Note (Normal) Comments: [...] size of the right kidney. The right sipleabxknexvb84.6 cm. Normal rolando al cortex. The right cortex measures 1.8 cm. Thereisno demonstrated renal mass or cyst. There is no right hydronephrosis. IMPRESSION:Sludge in the gallbladder lumen, with a thickened gallbladder wall .Correlation with nuclear medicine hepatobiliary scan is recommended. Signed:Jakob Hunt M.D.December 18, 2011 at 11:00:05 AM [id number] Signed GP/GP If you are the referring physician and would like to consult with theradiologist who provided this interpretation, please contact Chad Lao at [phone]. If this radiologist is unavailable, youwill be directed to another radiologist to assist. If you are a patient with a question regarding this report, pleasecontactyour referring physician directly. Professional Interpretation Provided By: [employer] Phone , These documents contain legally protected [...] destructionofthese documents. Dictated on 12/18/11 0940 by Jordy Hunt MDscribed on 12/18/111116 by ITS IMPORTSign by Jakob Hunt MD 12/18/111117 Sign by: Jakob Hunt MD :41 HgA1C , Office (10277) HgA1C , Office 6.2 % (Normal) Range: 4.6 - 7.1 :41 Blood Glucose , Office (63777) Blood Glucose , Office 115 (Normal) :37 HgA1C , Office (54346) HgA1C , Office 6.4 % (Normal) Range: 4.6 - 7.1 :37 Blood Glucose , Office (25326) Blood Glucose , Office 119 (Normal) :44 PSA (PROSTATE SPECIFIC Comments: PATIENT WAS FASTINGPERFORMED BY: [employer]6370 [facility] [id number] ANTIGEN) (V76.44) Prostate Specific Ag, 1.7 ng/mL (Normal) Range: 0.0-4.0 Serum Comments: Parkit EnterpriseIA methodology. .According to the [place] [employer], Serum PSA shoulddecrease and remain at undetectable levels after radicalprostatectomy. The AUA defines biochemical recurrence as an initialPSA value 0.2 ng/mL or greater followed by a subsequent confirmatoryPSA value 0.2 ng/mL or greater.Values obtained with d ifferent assay methods or kits cannot be usedinterchangeably. Results cannot be interpreted as absolute evidenceof the presence or absence of malignant disease. :44 TSH (49142) Comments: PATIENT WAS FASTINGPERFORMED BY: [employer]6370 [facility]EC[facility] [id number] TSH 2.660 {uIU/mL} (Normal) Range: 0.450-4.500 :44 URINALYSIS, W/ MICRO (55325) Comments: PATIENT WAS FASTINGPERFORMED BY: [employer]6370 [facility] [id number] Microscopic Examination See below: (Normal) Microscopic Examination MICRON (Normal) Comments: Microscopic follows if indicated. Nitrite, Urine Negative (Normal) Urobilinogen,Semi-Qn 0.2 mg/dL (Normal) Range: 0.0-1.9 Bilirubin Negative (Normal) Occult Blood Negative (Normal) Ketones Negative (Normal) Glucose Negative (Normal) Protein Negative (Normal) WBC Esterase Negative (Normal) Appearance Clear (Normal) Urine-Color Yellow (Normal) pH 6.0 (Normal) Range: 5.0-7.5 Specific [place] 1.024 (Normal) Range: 1.005-1.030 :44 MICROALBUMIN: CREATININE RATIO Comments: PATIENT WAS FASTINGPERFORMED BY: Doctors TogetherUNM Sandoval Regional Medical CenterQgoplv1444 [facility] [id number] ([id number]) AND (39011) Microalb/Creat Ratio 1.1 {mg/g_creat} (Normal) Range: 0.0-30.0 Microalbumin, Urine 3.2 ug/mL (Normal) Range: 0.0-17.0 Creatinine, Urine 294.1 mg/dL (Normal) Range: 22.0-328.0 :44 Microscopic Examination Comments: PATIENT WAS FASTINGPERFORMED BY: [employer] [facility] Sesguj8072 [facility] [id number] Bacteria None seen (Normal) Mucus Threads Present (Normal) Epithelial Cells (non renal) None seen {/hpf} (Normal) Range: 0 - 10 RBC 0-3 {/hpf} (Normal) Range: 0 - 3 WBC 0-5 {/hpf} (Normal) Range: 0 - 5 :44 METABOLIC PANEL, COMPREHENSIVE Comments: PATIENT WAS FASTINGPERFORMED BY: Doctors TogetherUNM Sandoval Regional Medical CenterQcpvua7524 [facility] [id number] (91251) ALT (SGPT) 21 [iU]/L (Normal) Range: 0-55 [...] mg/dL (Abnormal) Range: 65-99 :44 LIPID PANEL (34637) Comments: PATIENT WAS FASTINGPERFORMED BY: [employer]6370 [facility] [id number] LDL/HDL Ratio 1.2 {ratio_units} (Normal) Range: 0.0-3.6 [...] MANUAL DIFF Comments: PATIENT WAS FASTINGPERFORMED BY: [employer]6370 [facility] [id number] Information: [id number] (79319) Immature Grans (Abs) 0.0 {x10E3/uL} (Normal) Range: [...] (Normal) Range: 4.0-10.5 :25 HgA1C , Office (72645) HgA1C , Office 6.2 % (Normal) Range: 4.6 - 7.1 :25 Blood Glucose , Office (26741) Blood Glucose , Office 84 (Normal) :56 Blood Glucose , Office (28763) Blood Glucose , Office 96 (Normal) :29 [...] HEATHER FONTENOT MD :08 HgA1C , Office (16364) HgA1C , Office 6.3 % (Normal) Range: 4.6 - 7.1 :08 Blood Glucose , Office (33425) Blood Glucose , Office 108 (Normal) :50 URINALYSIS, W/ MICRO (67128) Comments: PATIENT WAS FASTINGPERFORMED BY: [facility]6370 [facility] [id number] Microscopic Examination See below: (Normal) Microscopic Examination MICRON (Normal) Comments: Microscopic follows if indicated. Nitrite, Urine Negative (Normal) Urobilinogen,Semi-Qn 0.2 mg/dL (Normal) Range: 0.0-1.9 Bilirubin Negative (Normal) Occult Blood Negative (Normal) Ketones Negative (Normal) Glucose Negative (Normal) Protein Negative (Normal) WBC Esterase Negative (Normal) Appearance Clear (Normal) Urine-Color Yellow (Normal) pH 5.5 (Normal) Range: 5.0-7.5 Specific [place] 1.022 (Normal) Range: 1.005-1.030 :50 MICROALBUMIN: CREATININE RATIO Comments: PATIENT WAS FASTINGPERFORMED BY: [facility] Anmcht1929 [facility] [id number] (37312) AND (62553) Microalb/Creat Ratio <.6 {mg/g_creat} (Normal) Range: 0.0-30.0 Creatinine, Urine 163.1 mg/dL (Normal) Range: 22.0-328.0 Microalbumin, Urine <1.0 ug/mL (Normal) Range: 0.0-17.0 Comments: Verified by repeat analysis :50 METABOLIC PANEL, COMPREHENSIVE Comments: PATIENT WAS FASTINGPERFORMED BY: [employer] [facility] Xsejfy7036 [facility] [id number] (28200) ALT (SGPT) 16 [iU]/L (Normal) Range: 0-55 [...] mg/dL (Abnormal) Range: 65-99 :50 LIPID PANEL (23461) Comments: PATIENT WAS FASTINGPERFORMED BY: [employer]70 [facility] [id number] LDL Cholesterol Calc 68 mg/dL (Normal) Range: [...] MANUAL DIFF Comments: PATIENT WAS FASTINGPERFORMED BY: [employer]6370 [facility] [id number] Information: [id number] (37739) Immature Grans (Abs) 0.0 {x10E3/uL} (Normal) Range: [...] Microscopic Examination Comments: PATIENT WAS FASTINGPERFORMED BY: [employer]70 [facility] [id number] Bacteria Few (Normal) Mucus Threads Present (Normal) Epithelial Cells (non renal) None seen {/hpf} (Normal) Range: 0 - 10 RBC None seen {/hpf} (Normal) Range: 0 - 3 WBC 0-5 {/hpf} (Normal) Range: 0 - 5 :58 HgA1C , Office (56360) HgA1C , Office 6.0 % (Normal) Range: 4.6 - 7.1 :58 Blood Glucose , Office (21777) Blood Glucose , Office 93 (Normal) 15-Cyd-206600:13 PSA (PROSTATE SPECIFIC Comments: PATIENT NOT FASTINGPERFORMED BY: [employer]6370 [facility] [id number] Information: [id number] ANTIGEN) (V76.44) Prostate Specific Ag, 1.5 ng/mL (Normal) Range: 0.0-4.0 Serum Comments: Dee ECLIA methodology. .According to the [place] [employer], Serum PSA shoulddecrease and remain [...] of malignant disease. :16 HgA1C , Office (36746) HgA1C , Office 6.2 % (Normal) Range: 4.6 - 7.1 :16 Blood Glucose , Office (41604) Blood Glucose , Office 196 (Normal) 0-Xgv-593132:15 TSH (77913) Comments: PATIENT WAS FASTINGPERFORMED BY: [employer]70 [facility]At[facility] [id number] TSH 3.200 {uIU/mL} (Normal) Range: 0.450-4.500 7-Hgg-349203:15 MICROALBUMIN: CREATININE RATIO Comments: PATIENT WAS FASTINGPERFORMED BY: [employer]70 [facility] [id number] (38081) AND (55186) Creatinine, Urine 168.7 mg/dL (Normal) Range: 22.0-328.0 Microalb/Creat Ratio 1.5 {mg/g_creat} (Normal) Range: 0.0-30.0 Microalbumin, Urine 2.5 ug/mL (Normal) Range: 0.0-17.0 :15 METABOLIC PANEL, COMPREHENSIVE Comments: PATIENT WAS FASTINGPERFORMED BY: [employer]70 [facility] [id number] (72997) A/G Ratio 1.8 (Normal) Range: 1.1-2.5 Alkaline [...] Glucose, Serum 108 mg/dL (Abnormal) Range: 65-99 5-Wgp-790105:15 LIPID PANEL (94742) Comments: PATIENT WAS FASTINGPERFORMED BY: [employer]70 [facility] [id number] LDL/HDL Ratio 1.8 {ratio_units} (Normal) Range: 0.0-3.6 HDL Cholesterol 49 mg/dL (Normal) Comments: According to ATP-III Guidelines, HDL-C >59 mg/dL is considered anegative risk factor for CHD. LDL Cholesterol Calc 86 mg/dL (Normal) Range: 0-99 VLDL Cholesterol Ezequiel 25 mg/dL (Normal) Range: 5-40 Cholesterol, Total 160 mg/dL (Normal) Range: 100-199 Triglycerides 123 mg/dL (Normal) Range: 0-149 8-Jyv-361273:15 CBC WITH MANUAL DIFF Comments: PATIENT WAS FASTINGPERFORMED BY: [employer]70 [facility] NetworksAt[facility] [id number] Information: [id number] (32332) Immature Grans (Abs) 0.0 {x10E3/uL} (Normal) Range: [...] (Normal) Range: 4.0-10.5 :53 HgA1C , Office (34220) HgA1C , Office 6.3 % (Normal) Range: 4.6 - 7.1 :53 Blood Glucose , Office (79864) Blood Glucose , Office 123 (Normal) :51 HgA1C , Office (98500) HgA1C , Office 6.2 % (Normal) Range: 4.6 - 7.1 72-Hip-21700:51 Blood Glucose , Office (86111) Blood Glucose , Office 93 (Normal) 12-Bsk-339666:01 Microscopic Examination Comments: PATIENT WAS FASTINGPERFORMED BY: [employer] [facility] Oeojju9415 [facility] [id number] Bacteria Few (Normal) Mucus Threads Present (Normal) Epithelial Cells (non renal) None seen {/hpf} (Normal) Range: 0 - 10 RBC 0-3 {/hpf} (Normal) Range: 0 - 3 WBC 0-5 {/hpf} (Normal) Range: 0 - 5 10-Upo-836730:01 PSA (PROSTATE SPECIFIC Comments: PATIENT WAS FASTINGPERFORMED BY: [employer] [facility] Fl[employer]ome [facility] [id number] ANTIGEN) (V76.44) Prostate Specific Ag, 1.4 ng/mL (Normal) Range: 0.0-4.0 Serum Comments: Double[employer] ECLIA methodology..According to the [place] [employer], Serum PSA shoulddecrease and remain at undetectable levels after radicalprostatectomy. The AUA defines biochemical recurrence a s an initialPSA value 0.2 ng/mL or greater followed by a subsequent confirmatoryPSA value 0.2 ng/mL or greater.Values obtained with different assay methods or kits cannot be usedinterchangeably. Results cannot be interpreted as absolute evidenceof the presence or absence of malignant disease. 16-Yxi-340996:01 TSH (73676) Comments: PATIENT WAS FASTINGPERFORMED BY: [employer] [facility] Wjmxke4801 [facility] [id number] TSH 3.670 {uIU/mL} (Normal) Range: 0.450-4.500 62-Nop-817985:01 URINALYSIS, W/ MICRO (53648) Comments: PATIENT WAS FASTINGPERFORMED BY: [employer] [facility] Kpafkb4798 [facility] [id number] Microscopic Examination See below: (Normal) Bilirubin Negative (Normal) Microscopic Examination MICRON (Normal) Comments: Microscopic follows if indicated. Nitrite, Urine Negative (Normal) Urobilinogen,Semi-Qn 0.2 mg/dL (Normal) Range: 0.0-1.9 Glucose Negative (Normal) Ketones Negative (Normal) Occult Blood Negative (Normal) Protein Negative (Normal) WBC Esterase Negative (Normal) Appearance Clear (Normal) pH 6.0 (Normal) Range: 5.0-7.5 Specific [place] 1.024 (Normal) Range: 1.005-1.030 Urine-Color Yellow (Normal) :01 MICROALBUMIN: CREATININE RATIO Comments: PATIENT WAS FASTINGPERFORMED BY: [employer]6370 [facility] [id number] (77944) AND (00056) Microalb/Creat Ratio <.4 {mg/g_creat} (Normal) Range: 0.0-30.0 Microalbumin, Urine <1.0 ug/mL (Normal) Range: 0.0-17.0 Creatinine, Urine 226.9 mg/dL (Normal) Range: 22.0-328.0 13-Hcy-820064:01 METABOLIC PANEL, COMPREHENSIVE Comments: PATIENT WAS FASTINGPERFORMED BY: [employer]70 [facility] HospitalHubHumanEC[facility] [id number] (58591) A/G Ratio 2.0 (Normal) Range: 1.1-2.5 Alkaline [...] Glucose, Serum 93 mg/dL (Normal) Range: 65-99 30-Sij-684159:01 LIPID PANEL (15357) Comments: PATIENT WAS FASTINGPERFORMED BY: [employer]70 [facility] [id number] HDL Cholesterol 46 mg/dL (Normal) Comments: According to ATP-III Guidelines, HDL-C >59 mg/dL is considered anegative risk factor for CHD. LDL Cholesterol Calc 70 mg/dL (Normal) Range: 0-99 LDL/HDL Ratio 1.5 {ratio_units} (Normal) Range: 0.0-3.6 VLDL Cholesterol Ezequiel 18 mg/dL (Normal) Range: 5-40 Cholesterol, Total 134 mg/dL (Normal) Range: 100-199 Triglycerides 89 mg/dL (Normal) Range: 0-149 94-Kao-206118:01 CBC WITH MANUAL DIFF Comments: PATIENT WAS FASTINGPERFORMED BY: [employer]70 [facility] [id number] Information: [id number] (10608) Baso (Absolute) 0.0 {x10E3/uL} (Normal) Range: 0.0-0.2 [...] (Normal) Range: 4.0-10.5 :59 HgA1C , Office (73708) HgA1C , Office 6.6 % (Normal) Range: 4.6 - 7.1 :59 Blood Glucose , Office (69125) Blood Glucose , Office 105 (Normal) :29 HgA1C , Office (43403) Comments: done km HgA1C , Office 7.2 % (Abnormal) Range: 4.6 - 7.1 :29 Blood Glucose , Office (88474) Comments: done Blood Glucose , Office 134 (Normal) :04 HgA1C , Office (84173) Comments: done km HgA1C , Office 6.7 % (Normal) Range: 4.6 - 7.1 :04 Blood Glucose , Office (83586) Comments: done Blood Glucose , Office 141 (Normal) :27 TSH (87906) Comments: PATIENT WAS FASTINGPERFORMED BY: LabCoSt. Joseph's Regional Medical CenterLljrjk2545 [facility] [id number] TSH 3.740 {uIU/mL} (Normal) Range: 0.450-4.500 :27 METABOLIC PANEL, COMPREHENSIVE Comments: PATIENT WAS FASTINGPERFORMED BY: LabCoSt. Joseph's Regional Medical CenterCtjtar1333 [facility] [id number] (45001) A/G Ratio 1.7 (Normal) Range: 1.1-2.5 Albumin, [...] Range: 135-145 :27 LIPOPROTEIN, BLD, BY NMR (33907) Comments: PATIENT WAS FASTINGClinical Information: ADD [id number], [id number] PERFORMED BY: [employer] [facility] Jftrei3876 [facility] [id number] Cholesterol, Total 149 mg/dL (Normal) HDL-C 41 [...] mg/dL (Normal) 25-Oct-20089:27 CBC WITH MANUAL DIFF (21280) Comments: PATIENT WAS FASTINGPERFORMED BY: [facility] Tziban4629 [facility] [id number] Baso (Absolute) 0.0 {x10E3/uL} (Normal) Range: 0.0-0.2 [...] (Normal) Range: 4.0-10.5 :55 HgA1C , Office (52143) Comments: done HgA1C , Office 5.9 % (Normal) Range: 4.6 - 7.1 :55 Blood Glucose , Office (03320) Comments: done Blood Glucose , Office 115 (Normal) 48-Zyr-396369:10 TSH (33021) Comments: REpeat first week in September; PATIENT NOT FASTINGClinical Information: ADD DRAW FEE [id number] ADD J 46517 PERFORMED BY: Leap CommerceSt. Joseph's Regional Medical CenterDfzcqx7434 [facility] [id number] TSH 3.800 {uIU/mL} (Normal) Range: 0.450-4.500 39-Cjd-101503:48 TSH (22742) Comments: PATIENT WAS FASTINGPERFORMED BY: Leap CommerceSt. Joseph's Regional Medical CenterMbbpfj4190 [facility] [id number] TSH 4.538 {uIU/mL} (Abnormal) Range: 0.450-4.500 35-Ocb-240044:48 MICROALBUMIN: CREATININE RATIO Comments: PATIENT WAS FASTINGPERFORMED BY: Leap CommerceSt. Joseph's Regional Medical CenterGqbedn[address] [place] [address] [id number] (27917) AND (31358) Creatinine, Urine 370.1 mg/dL (Abnormal) Range: 22.0-328.0 Microalb/Creat Ratio 1.0 {ug/mg_creat} (Normal) Range: 0.0-30.0 Microalbumin, Urine 3.7 ug/mL (Normal) Range: 0.0-17.0 61-Btk-472493:48 METABOLIC PANEL, COMPREHENSIVE Comments: PATIENT WAS FASTINGPERFORMED BY: [facility] Bhfnka9743 [facility] [id number] (67507) A/G Ratio 1.6 (Normal) Range: 1.1-2.5 Albumin, [...] Sodium, Serum 140 mmol/L (Normal) Range: 135-145 38-Zfj-505484:48 CBC WITH MANUAL DIFF (98207) Comments: PATIENT WAS FASTINGClinical Information: ADD DRAW FEE [id number] ADD J [id number] PERFORMED BY: GUICHO RUNCoIntercommunity Cancer Centers of America [facility] [id number] Baso (Absolute) 0.0 {x10E3/uL} (Normal) Range: 0.0-0.2 [...] 11.7-15.0 WBC 6.1 {x10E3/uL} (Normal) Range: 4.0-10.5 76-Ddc-197638:48 LIPID PANEL (63564) Comments: PATIENT WAS FASTINGPERFORMED BY: [facility] Hazsuv4973 [facility] [id number] Cholesterol, Total 171 mg/dL (Normal) Range: 100-199 HDL Cholesterol 45 mg/dL (Normal) Comments: According to ATP-III Guidelines, HDL-C >59 mg/dL is considered anegative risk factor for CHD. LDL Cholesterol Calc 99 mg/dL (Normal) Range: 0-99 LDL/HDL Ratio 2.2 {ratio_units} (Normal) Range: 0.0-3.6 Triglycerides 133 mg/dL (Normal) Range: 0-149 VLDL Cholesterol Ezequiel 27 mg/dL (Normal) Range: 5-40 :24 HgA1C , Office (25057) Comments: done HgA1C , Office 6.5 % (Normal) Range: 4.6 - 7.1 :24 Blood Glucose , Office (25238) Comments: done Blood Glucose , Office 113 (Normal) :38 HgA1C , Office (95041) Comments: done HgA1C , Office 6.0 % (Normal) Range: 4.6 - 7.1 :38 Blood Glucose , Office (03464) Comments: done Blood Glucose , Office 132 (Normal) :09 PSA,TOT SCREEN 1.30 ng/mL (Normal) Range: 0.00-4.00 Comments: This test was performed using the TPSA method for theSendmybag chemistry system.Values obtained with different assay methods cannot be usedinterchangably.When changing PSA assays in the course of monito ring apatient, additional sequential testing should be carriedout to confirm baseline values. :00 HgA1C , Office (85279) Comments: done HgA1C , Office 7.4 % (Abnormal) Range: 4.6 - 7.1 :00 Blood Glucose , Office (47376) Comments: done Blood Glucose , Office 138 (Normal) :32 MYOCARD PERF SPECT REST/STRESS Radiology Report See Note (Normal) Comments: Exam Number: [id number] MYOCARDIAL PERFUSION SCAN TECHNIQUEThe patient was injected [...] of 60%. Reported By: LOUIS CASTILLO M.D. 99-Erq-866183:27 URINALYSIS W/O MICRO (47123) Comments: PATIENT WAS FASTINGPERFORMED BY: LabCoSt. Joseph's Regional Medical CenterVmvrsg1222 [facility] [id number] Appearance Clear (Normal) Bilirubin Negative (Normal) Glucose Negative (Normal) Ketones Negative (Normal) Microscopic Examination MICRON (Normal) Comments: Microscopic follows if indicated. Nitrite, Urine Negative (Normal) Occult Blood Negative (Normal) pH 7.5 (Normal) Range: 5.0-7.5 Protein Trace (Normal) Specific [place] 1.023 (Normal) Range: 1.005-1.030 Urine-Color Yellow (Normal) Urobilinogen,Semi-Qn 0.2 mg/dL (Normal) Range: 0.0-1.9 WBC Esterase Negative (Normal) :27 TSH (12537) Comments: PATIENT WAS FASTINGPERFORMED BY: RUNVibra Hospital Of Southeastern Michigan6370 [facility] [id number] TSH 3.505 {uIU/mL} (Normal) Range: 0.350-5.500 Comments: Adult TSH concentrations below 5.5 uIU/mL do not rule out the presence of subclinical hypothyroidism. : MICROALBUMIN URINE QUANT Comments: PATIENT WAS FASTINGPERFORMED BY: RUNDebra Ville 2714970 [facility] [id number] (71632) Microalbum.,U,Random 4.4 ug/mL (Normal) Range: 0.0-17.0 : METABOLIC PANEL, COMPREHENSIVE Comments: PATIENT WAS FASTINGPERFORMED BY: RUNVibra Hospital Of Southeastern Michigan6370 [facility] [id number] (66623) A/G Ratio 1.8 (Normal) Range: 1.1-2.5 Albumin, [...] Serum 132 mg/dL (Abnormal) Range: 65-99 If -Emirati >60 mL/min (Normal) Range: 60-137 Comments: Note: [...] Sodium, Serum 140 mmol/L (Normal) Range: 135-145 40-Fyz-773999:27 CBC WITH MANUAL DIFF (74496) Comments: PATIENT WAS FASTINGClinical Information: ADD [id number], ADD [id number] PERFORMED BY: LabCoSt. Joseph's Regional Medical CenterAwvgpr7978 [facility] [id number] Baso (Absolute) 0.0 {x10E3/uL} (Normal) Range: 0.0-0.2 [...] {x10E3/uL} (Normal) Range: 4.0-10.5 :27 LIPID PANEL (26558) Comments: PATIENT WAS FASTINGPERFORMED BY: LabCoSt. Joseph's Regional Medical CenterAajveq0929 [facility] [id number] LDL/HDL Ratio 2.4 {ratio_units} (Normal) Range: 0.0-3.6 Cholesterol, Total 212 mg/dL (Abnormal) Range: 100-199 Comment SPRCS (Normal) Comments: If initial LDL-cholesterol result is >100 mg/dL, assess forrisk factors. HDL Cholesterol 52 mg/dL (Normal) Range: 40-59 LDL Cholesterol Calc 123 mg/dL (Abnormal) Range: 0-99 Triglycerides 184 mg/dL (Abnormal) Range: 0-149 VLDL Cholesterol Ezequiel 37 mg/dL (Normal) Range: 5-40 :28 HgA1C , Office (15294) Comments: done HgA1C , Office 6.9 % (Normal) Range: 4.6 - 7.1 :28 Blood Glucose , Office (26200) Comments: done Blood Glucose , Office 157 (Normal) :58 HgA1C , Office (74010) Comments: done HgA1C , Office 6.6 % (Normal) Range: 4.6 - 7.1 :58 Blood Glucose , Office (82141) Comments: done Blood Glucose , Office 136 [...] T PROT 6.7 g/dL (Normal) Range: 6.4-8.2 72-Iul-90611:29 COMPLETE UA BACTERIA 0 SEEN {/hpf} (Normal) [...] was performed using the TPSA method for theApplicotrinity health [facility] chemistry system.Values obtained with different assay methods cannot be usedinterchangably.When changing PSA assays in the course of monito ring apatient, additionaly sequential testing should be carriedout to confirm baseline values. :29 TSH 3.67 {uIU/mL} (Normal) Range: 0.34-4.82 :39 Blood Glucose , Office (90534) Comments: done km Blood Glucose , Office 98 (Normal) :39 HgA1C , Office (41766) Comments: done km HgA1C , Office 6.5 % (Normal) Range: 4.6 - 7.1 :57 HgA1C , Office (54745) HgA1C , Office 6.5 % (Normal) Range: 4.6 - 7.1 :57 Blood Glucose , Office (21080) Blood Glucose , Office 138 (Normal) :03 HgA1C , Office (20665) HgA1C , Office 6.6 % (Normal) Range: 4.6 - 7.1 :03 Blood Glucose , Office (78077) Blood Glucose , Office 92 (Normal) 99-Nyn-576556:28 LIVER ALB 3.6 g/dL (Normal) Range: 3.4-5.0 ALK P 96 U/L (Normal) Range: 50-136 ALT 47 [iU]/L (Normal) Range: 30-65 AST 20 U/L (Normal) Range: 15-37 D BILI 0.08 mg/dL (Normal) Range: 0.00-0.30 T BILI 0.44 mg/dL (Normal) Range: 0.00-1.00 T PROT 6.9 g/dL (Normal) Range: 6.4-8.2 10-Sbw-546538:28 MICROALB:CRE UR MALB:CREAT 8.4 {mg/g_CRE} (Normal) MICROALBUMIN,UR [...] Plan of Care Name Dates Details Instructions Uncontrolled type II diabetes mellitus : Continue [...] from H/O transient cerebral ischemia) : Reviewed Financial Analyst Accountant Letter Indication: History of transient cerebral ischemia (Renamed from H/O transient cerebral ischemia) Hypertensive urgency : Reviewed Financial Analyst Accountant Letter Indication: Hypertensive urgency Heart disease, hypertensive, [...] Current Prescription(s) Indication: Hypothyroidism Hypothyroidism : Reviewed Financial Analyst Accountant Letter Indication: Hypothyroidism Uncontrolled type II diabetes [...] from there Planned Observations T4, FREE (THYROXINE) (17159)Indication: Hypothyroidism On: 48-Jum-577541:48 Request T3, FREE (TRIDOTHYRONINE) (33768)Indication: Hypothyroidism On: 70-Wci-421666:48 Request URINALYSIS, W/ MICRO (36371)Indication: Essential hypertension On: 92-Qjn-425883:47 Request MICROALBUMIN: CREATININE RATIO (03401) AND (57499)Indication: Essential hypertension On: 38-Imn-744409:47 Request METABOLIC PANEL, COMPREHENSIVE (65741)Indication: Essential hypertension On: 39-Jxf-334232:47 Request CBC W/AUTO DIFF WBC (79036)Indication: Essential hypertension On: 32-Elv-527652:47 Request LIPID PANEL (86763)Indication: Hypercholesterolemia On: 11-Uex-720630:47 Request TSH (28055)Indication: Hypothyroidism On: 14-Ogq-606043:47 Request CALCIFIDIOL (12226) VIT D 25Indication: Vitamin D deficiency On: 86-Zmq-945960:47 Request Influenza A&B Viral Culture (16825)Indication: Flu-like symptoms On: 9-Zap-057355:53 Request POTASSIUM SERUM (60062)Indication: Potassium disorder On: 16-Bld-647559:53 Request CALCIFEDIOL (93119)Indication: Vitamin D deficiency On: 07-Xsh-77901:36 Request TSH (88820)Indication: Hypothyroidism On: 22-Ryy-51513:35 Request Lipid Panel (25367)Indication: Hypercholesterolemia On: :34 Request Metabolic Panel, Comprehensive (84831)Indication: Hypercholesterolemia On: 10-Cke-36097:34 Request URINE VMA (69449)Indication: Hypertensive urgency On: 79-Tge-465659:54 Request Catecholamines,24-Hour Urine (86317)Indication: Hypertensive urgency On: 97-Ouj-955666:54 Request RENIN (34223)Indication: Hypertensive urgency On: 18-Aom-883923:54 Request ALDOSTERONE (90415)Indication: Hypertensive urgency On: 01-Zlb-018164:54 Request METANEPHRINES (05731)Indication: Hypertensive urgency On: 23-Apj-377326:54 Request CBC (Auto) (46123)Indication: Hypertensive urgency On: 29-Nny-502650:36 Request Metabolic Panel, Basic (08126)Indication: Hypertensive urgency On: 75-Fdk-281010:36 Request TSH (04123)Indication: Hypertensive urgency On: 48-Koa-801134:24 Request CBC WITH MANUAL DIFF (36345)Indication: Hypertensive urgency On: 78-Ecp-387307:24 Request METABOLIC PANEL, COMPREHENSIVE (41461)Indication: Hypertensive urgency On: 67-Dpx-678988:24 Request Troponin I (90021)Indication: Hypertensive urgency On: 41-Pkx-297183:20 Request CPK MB FRACTION (73984)Indication: Hypertensive urgency On: 35-Rls-654557:20 Request CREATINE KINASE TOTAL (72160)Indication: Hypertensive urgency On: 89-Tys-311986:20 Request TSH (04518)Indication: Hypothyroidism On: 16-Zia-874926:56 Request HgA1C , Office (52393)Indication: Controlled diabetes mellitus type II without complication On: 16-Mya-79513:56 Request PSA (PROSTATE SPECIFIC ANTIGEN) (V76.44)Indication: Screening for prostate cancer On: :20 Request TSH (62030)Indication: Uncontrolled type II diabetes mellitus On: :19 Request URINALYSIS, W/ MICRO (65814)Indication: Uncontrolled type II diabetes mellitus On: :19 Request MICROALBUMIN: CREATININE RATIO (53773) AND (73384)Indication: Uncontrolled type II diabetes mellitus On: :19 Request METABOLIC PANEL, COMPREHENSIVE (93680)Indication: Uncontrolled type II diabetes mellitus On: :19 Request LIPOPROTEIN, BLD, BY NMR (31385)Indication: Uncontrolled type II diabetes mellitus On: :19 Request LIPID PANEL (12757)Indication: Uncontrolled type II diabetes mellitus On: :19 Request CBC WITH MANUAL DIFF (51914)Indication: Uncontrolled type II diabetes mellitus On: : Request LIPOPROTEIN, BLD, BY NMR (90213)Indication: Hypercholesterolemia On: :57 Request LIPID PANEL (09194)Indication: Hypercholesterolemia On: :57 Request Comments: do in 3 months LIPID PANEL (83800)Indication: Controlled diabetes mellitus type II without complication On: :22 Request T3, FREE (TRIDOTHYRONINE) (06475)Indication: Abnormal TSH On: :40 Request T4, FREE (THYROXINE) ([id number])Indication: Abnormal TSH On: :40 Request TSH ([id number])Indication: Abnormal TSH On: :40 Request Comments: do in 2-3 mo TSH ([id number])Indication: Controlled diabetes mellitus type II without complication On: :29 Request METABOLIC PANEL, COMPREHENSIVE ([id number])Indication: Controlled diabetes mellitus type II without complication On: :29 Request MICROALBUMIN: CREATININE RATIO ([id number]) AND ([id number])Indication: Controlled diabetes mellitus type II without complication On: :29 Request CBC WITH MANUAL DIFF ([id number])Indication: Controlled diabetes mellitus type II without complication On: :29 Request LIPID PANEL ([id number])Indication: Controlled diabetes mellitus type II without complication On: :29 Request PSA (PROSTATE SPECIFIC ANTIGEN) (V76.44)Indication: Uncontrolled type II diabetes mellitus On: :18 Request LIPID PANEL ([id number])Indication: Hypercholesterolemia On: :02 Request HEPATIC FUNCTION PANEL ([id number])Indication: Hypercholesterolemia On: :02 Request TSH ([id number]) On: :45 Request METABOLIC PANEL, COMPREHENSIVE (60355) On: :44 Request LIPID PANEL ([id number]) On: :44 Request CBC WITH MANUAL DIFF ([id number]) On: :44 Request PSA (PROSTATE SPECIFIC ANTIGEN) ([id number]) On: :17 Request Comments: screening TSH ([id number]) On: :14 Request URINALYSIS W/O MICRO ([id number]) On: :14 Request MICROALBUMIN URINE QUANT ([id number]) On: :14 Request LIPID PANEL ([id number]) On: :14 Request METABOLIC PANEL, COMPREHENSIVE (70547) On: :14 Request CBC WITH MANUAL DIFF ([id number]) On: 6-Upu-599625:14 Request MICROALBUMIN: CREATININE RATIO ([id number]) On: :07 Request AND ([id number]) METABOLIC PANEL, COMPREHENSIVE (05400) On: :07 Request LIPID PANEL ([id number]) On: 6-Ozs-826556:07 Request CBC WITH MANUAL DIFF ([id number]) On: 5-Trq-680389:07 Request Planned Procedures EKG ([id number])By: Denisa Macias DO On: 27-Feb-2018 Intent Denisa Macias DO Comments: nsr no acute chg PNEUM VAC ADLT/IMUMNOSPR, SBC/INTRM On: 07-Feb-2018 Intent ([id number])By: Denisa Macias DO Comments: 0.5 cc given sq lt arm lot [id number] exp 04/21/19 Denisa Macias DO X-RAY OF RIGHT HAND, ONE OR TWO On: 07-Feb-2018 Intent VIEWS ([id number])By: Denisa Macias DO Comments: attention to hypothenar area for FB Denisa Macias DO TD VACCINE ADULT ([id number])By: Venkata, On: 23-Dec-2017 Intent Anne Comments: a105a3/21756.5mlr dltd, IMMLONG Flu Vaccine (Quadrivalent) 79510Wc: On: 28-Nov-2017 Intent Visit, Nurse Comments: Lot #[id number]/30/19Site-L dltd, IMDose prefilled syringegiven by: Genna FARAHVIS reviewed and ABN signed X-RAY RIGHT KNEE, 3 VIEWS ([id number])By: On: 31-Jul-2017 Intent Denisa Macias DO, DO, Kathleen Radiology - Knee - Right - Weight On: 31-Jul-2017 Intent BearingBy: Denisa Macias DO, DO, Kathleen ELECTROCARDIOGRAM, COMPLETE (ECG) On: 31-Jul-2017 Intent ([id number])By: Denisa Macias DO Comments: nsr no acute chg Denisa Macias DO CT - Brain/Head (IV Contrast On: 31-Dec-2016 Intent Needed)By: Denisa Macias DO, DO, Kathleen Echo CompleteBy: Denisa Macias DO On: 31-Dec-2016 Intent Denisa Macias DO PYTF-OP-EWNF BEHAVIORAL COUNSELING On: 31-Dec-2016 Intent FOR OBESITY, 15 MINUTES ([id number])By: Denisa Macias DO, DO, Kathleen Flu Vaccine (Quadrivalent) 66560Nz: On: 17-Dec-2016 Intent Denisa Macias DO, DO, Comments: Lot:[id number]:09/09/17Amt:0.5mlRoute:IMSite: L DltdGiven By: YURY Valdez signed Denisa MAGNETIC RESONANCE ANGIOGRAPHY OF On: 24-Sep-2016 Intent CAROTID AND VERTEBRAL VESSELS ([id number])By: Denisa Macias DO, DO, Kathleen ELECTROCARDIOGRAM, COMPLETE (ECG) On: 24-Sep-2016 Intent ([id number])By: Denisa Macias DO Comments: sinus gabby no acute chg- on BB Denisa Macias DO Renal Duplex ScanBy: Colelen GARCIA, On: 24-Sep-2016 Intent Denisa Valladares DO ELECTROCARDIOGRAM, COMPLETE (ECG) On: 10-Sep-2016 Intent ([id number])By: Denisa Macias DO Comments: sinus gabby no acute chg Denisa Macias DO CT HEAD OR BRAIN WO CONTRAST On: 21-May-2016 Intent ([id number])By: Denisa Macias DO, DO, Kathleen Flu Vaccine (Quadrivalent) 03182Vd: On: 23-Dec-2015 Intent CristelaEmeka rosa Comments: FLUlot: [id number]:08/08site:Lt deltoidroute:IMdose:.5mlDEMICK, MA Echo CompleteBy: Denisa Macias DO On: 24-Oct-[address] SCAN OF CHEST WITH CONTRAST On: 24-Oct-2015 Intent ([id number])By: Denisa Macias DO, DO, Kathleen CT - Chest (IV Contrast Needed)By: On: 20-Jun-2015 Intent Denisa Macias DO, DO, Kathleen Echo CompleteBy: Denisa Macias DO On: 21-Feb-2015 Intent Denisa Macias DO Flu Vaccine (Quadrivalent) 90579Kt: On: 05-Jan-2015 Intent Denisa Macias DO, DO, Comments: lot [id number]: 09/22/2015site/route L rafa, IMamt 0.5mlVIS and ABN signed when applicableChelsea, CMA4 Denisa ELECTROCARDIOGRAM, COMPLETE (ECG) On: 16-Nov-2014 Intent ([id number])By: Denisa Macias DO Comments: nsr no acute changes - Denisa Macias DO Prevnar 13 (82068)By: Colleen GARCIA, On: 10-May-2014 Intent Denisa Valladares DO Comments: Lot:[id number]:08/07Dose:0.5mgRoute:imSite:l armGiven By:MIGUEL ÁNGEL signed Inhaler Demonstration (40624)By: On: 23-Mar-2014 Intent Hayley Stone CNP ADMINISTRATION OF INFLUENZA VIRUS On: 25-Dec-2013 Intent VACCINE (G0008)By: Visit, Nurse Comments: Lot #[id number]-L dltd, IMDose prefilled syringegiven by:YURY Seymour and ABN signed FLU VAC, SPLIT, >3 YEARS, INTRAMUSC On: 25-Dec-2013 Intent ([id number])By: Visit, Nurse EKG (60073)By: Denisa Macias DO On: 08-Oct-2013 Intent Denisa Macias DO Comments: nsr no acute chg - same as 2012 and last echo 2012 Radiology - PelvisBy: Colleen DO, On: 09-Jul-2013 Intent Denisa ColleenDenisa pratt DO Comments: attention R side SI jt Radiology - Hip - RightBy: Colleen On: 09-Jul-2013 Intent Denisa GARCIA DO, Kathleen EMGBy: Colleen DO, Denisa Colleen On: 03-Apr-2013 Intent Denisa GARCIA Comments: lower extremity Nerve ConductionBy: Colleen GARCIA, On: 03-Apr-2013 Intent Denisa Valladares DO Comments: lower extremity Eprescribed prescriptions ([id number])By: On: 03-Apr-2013 Intent Anne Edge LPN PNEUM VAC ADLT/IMUMNOSPR, SBC/INTRM On: 19-Dec-2012 Intent ([id number])By: Marge Smith Comments: Lot:[id number]:10/25/13Dose:0.5mgRoute:imSite:r armGiven By:MIGUEL ÁNGEL signed ADMINISTRATION OF PNEUMOCOCCAL On: 19-Dec-2012 Intent VACCINE (G0009)By: Marge Smith FLU VAC, SPLIT, >3 YEARS, INTRAMUSC On: 17-Dec-2012 Intent (33790)By: Anne Edge LPN Comments: Lot:[id number]:6.14Amt:0.5mlRoute:IMSite: L DltdGiven By: YURY Valdez signed Eprescribed prescriptions ([id number])By: On: 17-Dec-2012 Anne Hale LPN Eprescribed prescriptions ([id number])By: On: 15-Sep-2012 Intent Anne Edge LPN Renal Artery DopplerBy: Colleen GARCIA, On: 08-Aug-2012 Intent Denisa Valladares DO MRI - BrainBy: ColleenDenisa pratt DO On: 04-Aug-2012 [address] DO CT - Brain/HeadBy: Colleen DO, On: 04-Aug-2012 Intent Denisa Macias DODenisa Echo CompleteBy: Colleen DOInesDenisa On: 04-Aug-2012 Intent Denisa Macias DO Carotid DopplerBy: Colleen GARCIA, On: 04-Aug-2012 Intent Denisa Valladares DO EKG ([id number])By: Denisa Macias DO On: 28-Jul-2012 Intent Denisa Macias DO Comments: nsr no acute changes Echo CompleteBy: Denisa Macias DO On: 21-Mar-2012 Intent Denisa Macias DO Echo CompleteBy: Colleen DODenisa On: 19-Mar-2012 Intent Denisa Macias DO Eprescribed prescriptions ([id number])By: On: 13-Mar-2012 Intent Anne Edge LPN Eprescribed prescriptions ([id number])By: On: 31-Dec-2011 Intent Denisa Macias DO, DO, Kathleen Nuclear Medicine - HIDA w/CPKBy: On: 19-Dec-2011 Intent 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, Hayley Lo EKG (75444)By: Denisa Macias DO On: 13-Dec-2011 Intent Denisa Macias DO Comments: nsr no acute chg Ultrasound - GallbladderBy: Colleen On: 29-Nov-2011 Intent Denisa GARCIA DO, Kathleen Eprescribed prescriptions ([id number])By: On: 29-Nov-2011 Intent Anne Edge LPN FLU VAC, SPLIT, >3 YEARS, INTRAMUSC On: 27-Nov-2011 Intent ([id number])By: Marissa Palomino LPN Comments: Lot #[id number]/30/13Site-left deltoidgiven by: Todd Palomino LPN ADMINISTRATION OF INFLUENZA VIRUS On: 27-Nov-2011 Intent VACCINE (G0008)By: Marissa Palomino LPN MRI - Lumbar Spine (IV Contrast On: 26-Jan-2011 Intent Needed)By: Denisa Macias DO, DO, Kathleen EKG ([id number])By: Denisa Macias DO On: 05-Jan-2011 Intent Denisa Macias DO Comments: nsr no acute chg Cartoid DopplerBy: Colleen GARCIA, On: 05-Jan-2011 Intent Denisa Valladares DO EKG ([id number])By: Denisa Macias DO On: 06-Dec-2010 Intent Denisa Macias DO Comments: nsr no acute chgn- Bio Z ([id number])By: Denisa Macias DO On: 06-Dec-2010 Intent Denisa Macias DO Comments: stabel parameters- no chg in rx IMMUNIZ ADMNIN, 1 VAC, SNGL/COMBO On: 06-Dec-2010 Intent ([id number])By: Denisa Macias DO, DO, Kathleen FLU VAC, SPLIT, >3 YEARS, INTRAMUSC On: 06-Dec-2010 Intent (53281)By: Denisa Macias DO, DO, Kathleen TDAP VACCINE >7 IM (75781)By: Colleen On: 30-Aug-2010 Denisa Izquierdo DO, DO, Kathleen Comments: Lot #[id number]-2/25/13Site-left deltoidgiven by: Todd Palomino LPN ADMINISTRATION OF INFLUENZA VIRUS On: 27-Dec-2009 Intent VACCINE (G0008)By: Edilia Vasquez LPN FLU VAC, SPLIT, >3 YEARS, INTRAMUSC On: 27-Dec-2009 Intent (73744)By: Edilia Vasquez LPN Comments: Lot #[id number] 4PExp-07/03Site-L armDose0.5mlgiven by: EKG (54489)By: Denisa Macias DO On: 15-Nov-2009 Intent Denisa Macias DO Comments: nsr no acute changes MRI - Shoulder(s) - LeftBy: Colleen On: 11-May-2009 Intent Denisa GARCIA DO, Kathleen Bio Z ([id number])By: Denisa Macias DO On: 25-Oct-2008 Intent Denisa Macias DO Comments: NORMAL SVR AND CO EKG (78361)By: Denisa Macias DO On: 25-Oct-2008 Intent Denisa Macias DO Comments: NSR NO ACUTE CHANGES Bio Z ([id number])By: Denisa Macias DO On: 04-Jun-2008 Intent Denisa Macias DO Comments: normal IMMUNIZ ADMNIN, 1 VAC, SNGL/COMBO On: 05-Jan-2008 Intent ([id number])By: Denisa Macias DO, DO, Kathleen FLU VAC, SPLIT, >3 YEARS, INTRAMUSC On: 05-Jan-2008 Intent (63359)By: Denisa Macias DO, DO, Kathleen Bio Z (04231)By: Denisa Macias DO On: 07-Nov-2007 Intent Denisa Macias DO Comments: normal svr and co Nuclear Stress Test/Stress On: 15-Sep-2007 Intent SPECT/TreadmillBy: Colleen GARCIA, Comments: [facility] eDnisa Valladares DO Echo CompleteBy: Denisa Macias DO On: 07-Aug-2007 Intent Denisa Macias DO Cartoid DopplerBy: Colleen GARCIA, On: 07-Aug-2007 Intent Denisa Valladares DO EKG (38321)By: Denisa Macias DO On: 07-Aug-2007 Intent Denisa Macias DO Comments: nsr no acute ischemic changes EKG ([id number])By: Denisa Macias DO On: 29-Nov-2006 Intent Denisa Macias DO Comments: nsr no acute ischemic changes EMGBy: Deinsa Macias DO On: 04-Nov-2006 Intent Denisa GARCIA [...] right upper quadrant Encounters Office Visit On: 27-Feb-2018 10:58 Encounter Reason: Pre-Op Visit - The procedure scheduled is a lt catract eye sx on 03/14/18. The surgeon for the procedure will be Dr. Catie Liu.Encounter Diagnosis: BMI 28.0-28.9,adult, Non-smoker, Pre-operative general physical [...] The patient does have durable power of trade mark attorney and living will. The patient has noticed [...] The patient does have durable power of trade mark attorney and living will. The patient has noticed nothing from the geriatic depression scale. Other providers contributing to the patient's care are dot net developer (dr liu) and other: ([facility], vision test up to date).Encounter Diagnosis: Physical [...] in bathroom. The patient has completed the [facility] preventative measures: PSA testing (2011) and colonoscopy (2011). The patient does have durable power of trade mark attorney and living will. The patient has noticed nothing from the geriatic depression scale . Other providers contributing to the patient's care are dot net developer (Dr. Antonio) and surgeon (Dr. Negro -- [...] criselda toscano does have durable power of trade mark attorney and living will. The patient has noticed nothing from the geriatic depression scale. Other providers contributing to the patient's care are assessment counselor and other: (bobbin sorter, ENT). Encounter Diagnosis: Type II Diabetes,controlled (250.00), [...] intolerance - The patient is sleeping poorly. hCerelle pickard has been compliant with instructions. Nutrition: [...] [facility] End: 07-Mar-2006 14:37 Payers MedicareAetna Kavitha Ins/MedicareErnest Stone; joceline guarantor
--- OUTSIDE RECORDS SUMMARY | 2018-06-16 21:49 | XMS RPT_ITS | Continuity of Care Document ---
:1945 External Reference #:[id number] Author Organization [facility] Address [address] [place] [address] Phone Care Team Providers Name Role Phone Denia Macias DOeen Unavailable Physical Therapy, [facility] Unavailable Herberth Pollock Unavailable Lawrence Church MD Unavailable Baljit Arcos MD Unavailable Dr. Nik Ch Unavailable Rivera MAO MD , Jhonathan Zelaya Unavailable Santana Zayas Unavailable Dr. Abel Rojas Unavailable Dr. 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] (External Solution) uad (10 %) Inactive Comments:Trillium [place] Levitra 10 MG Oral Tablet 1 Tablet [...] : 15-May-2017 End : 31-Jul-2017 Inactive ASPIRIN BUF(PMXHPC-FCSTVL-DEV), 325MG (Oral Tablet) 1 (one) Tablet Daily [...] 2 Views Result: Comments: See Note; NOTES: [facility] Imaging Services [address] [place] [address] Hand 2 Views MR#: [id number] Acct: [id number] Name: YOHANNES CADET Rep #: [id number] : 0 1945 M 72 From: Morales Perla MD PCP: Denisa Macias DO Status: REG CLI Study: Hand 2 Views Date of Exam: 02/07/18 Exam# [id number] Ordering Dr: Denisa Macias DO STUDY: X-RAY [...] Service support , CC: Denisa Macias DO Ceramic Design Engineer: Signed 05-Dec-2016 PT D/C Summary (1) Result: Comments: See Note; NOTES: [facility] [address] [place] [address] Fax REHABILITATION SERVICES DISCHAR SUMMARY MR#: [id number] Acct: [id number] Name: YOHANNES CADET Rep #: [id number] : 1945 71 From: Aftab Mendez PT, ATC Referring Dr.: Nik Ch DPM Status: REG RCR Insurance: MEDIC ARE PART A B WPS CanDiag HP - PT D/C Summary It has [...] please feel free to call me at [phone]. Thank you for the referral of this patient. Sincerely, Aftab Mendez, PT, <Electronically signed by Aftab Mendez PT, ATC> 12/05/16 1100 CC: Nik valdes DPM; Denisa Colleen DO [facility] Signed 09-Oct-2016 Inital Evaluation (1) - PT Result: Comments: See Note; NOTES: [facility] [address] [place] [address] Fax REHABILITATION SERVICES INITIAL EVALUATION MR#: [id number] Acct: [id number] Name: YOHANNES CADET Rep #: [id number] : 1945 71 From: Aftab Mendez PT, ATC Referring Dr.: Nik Ch DPM Status: REG RCR Insurance: [place] PART A B WPS Can[employer]ag Patient's Visit Information YOHANNES CADET is a [...] to be FAXED BACK to us at [phone] for Medicare purposes. Please let me know if there are questions or concerns regarding this plan of care. Physician Signature: Date: <Electronically signed by Aftab Mendez PT, ATC> 1001 CC: Nik Ch DPM; Denisa Macias DO [facility] Signed For Medicare only, by signing this I certify the plan of care. Physicians Signature Date 21-May-2016 Brain/Head without Contrast Result: Comments: See Note; NOTES: [facility] Imaging Services [address] [place] [address] Verdana 4d Brain/Head without Contrast MR#: [id number] Acct: [id number] Name: YHOANNES CADET Rep #: [id number] : 1945 M 70 From: Sincere Solorio DO PCP: Denisa Macias DO Status: REG CLI Study: Brain/Head without Contrast Date of Exam: 05/21/16 Exam# [id number] Ordering Dr: Denisa Macias DO STUDY: CT [...] at 14:26 EST Tel , Service support [phone], CC: Denisa Macias DO Ceramic Design Engineer: Signed 14-Nov-2015 Echocardiogram Complete Result: Comments: See Note; NOTES: [facility] Cardiovascular Services [address] [place] [address] Echo Complete 11/14/15 1303 MR#: [id number] Acct: [id number] Name: YOHANNES CADET Rep #: [id number] : 1945 70 From: Layo Raymond MD Attending Dr: Denisa Macias DO Status: REG CLI Ordering Dr: Denisa Macias DO Date: 11/14/15 Location: [facility] Sex: M C Admitted: Reason Fo [...] Denisa Macias Performed By: Zaira Her RDCS 11/14/159 Date Layo Raymond MD CC: Denisa Macias DO Date Dictated: 10/24 05/10 1303 Date Transcribed: 11/14/151648 Ceramic Design Engineer: Signed 14-Nov-2015 Chest WITH Contrast Result: Comments: See Note; NOTES: [facility] Imaging Services [address] [place] [address] Verdana 4d Chest WITH Contrast MR#: [id number] Acct: [id number] Name: YOHANNES CADET Rep #: [id number] : 1945 M 70 From: Asia Peres MD PCP: Denisa Macias DO Status: REG CLI Study: Chest WITH Contrast Date of Exam: 11/14/15 Exam# [id number] Ordering Dr: Denisa Macias TUDY: CT CHEST [...] Service support , CC: Denisa Macias DO Ceramic Design Engineer: Signed 24-Oct-2015 ELECTROCARDIOGRAM, COMPLETE (ECG) (97911) Comments: sinus gabby - no acute chg - same as old and on BB Result: [MEASUREMENTS ANALYSIS] Date of Test: 10/24/2015 09:30:26; Heart Rate: 55; WA Interval: 184; QRS: 105; QT Interval: 404; Corrected QT Interval (QTc): 396; P Wave Massillon: 26; QRS Wave Massillon: 27; T Wave Massillon : 34; Blood Pressure: 138/70 [ECG DIAGNOSTIC STATEMENTS] Date of Test: 10/24/2015 09:30:26; Summary: Sinus Bradycardia WITHIN NORMAL LIMITS 29-Sep-2015 Knee 4 or More Views Result: Comments: See Note; NOTES: [facility] Imaging Services [address] [place] [address] Verdana 4d Knee 4 or More Views MR#: [id number] Acct: [id number] Name: YOHANNES CADET Rep #: [id number] : 1945 M 70 From: Tripp Miller MD PCP: Denisa Macias DO Status: REG CLI Study: Knee 4 or More Views Date of Exam: 09/29/15 Exam# [id number] Ordering Dr: Carrol Bautista DO STUDY: X-RAY [...] FACR at 9:18 EDT , Service support [phone], RAD/Knee 4 or More Views IMPRESSION: Moderate arthrosis of the patellofemoral joint Electronically Signed: Tripp Miller MD, FACR at 9:18 EDT , Service support , CC: Carrol Kirkpatrick DO; Denisa Macias DO Ceramic Design Engineer: Signed 27-Oct-2013 PT Discharge Summary Result: Comments: See Note; NOTES: [facility] Physical Therapy [address] [place] [address] Fax REHABILITATION SERVICES DISCHARGE SUMMARY MR#: [id number] Acct: [id number] Name: YOHANNES CADET Rep #: [id number] : 1945 68 From: Baljit Silva Referring [...] referral. Baljit Silva, PT T: GI JOB: [id number] <Electronically signed by Baljit pantoja > 10/27/13 0758 CC: Signed 27-Jul-2013 Inital Evaluation - PT Result: Comments: See Note; NOTES: [facility] [address] [place] [address]. 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 His goals are to find [...] We discussed with patient possibly using the dbkm-olq-byhhkfi orthotics before he considers fabricated orthotics due to cost. Uzair Silva PT T: GI JOB: [id number] <Electronically signed by Baljit Silva > 07/27/13 1802 CC: Signed For Medicare only, by signing this I c ertify the plan of care. Physicians Signature Date 09-Jul-2013 Hip min 2 Views Result: Comments: See Note; NOTES: [facility] Imaging Services [address] [place] [address] Radiology Report MR#: [id number] Acct: [id number] Name: YOHANNES CADET Rep #: [id number] : 1945 67 From: Jakob Hunt MD PCP: Denisa Macias DO Status: REG CLI Study: Hip min 2 Views Date of Exam: 07/09/13 Exam# [id number] Ordering Dr: Denisa Macias DO STUDY : [...] Jakob Hunt MD at 14:44 EDT Tel [phone], Service support [phone], Fax CC: Denisa Macias DO Ceramic Design Engineer: Signed 09-Jul-2013 Pelvis 1 or 2 Views Result: Comments: See Note; NOTES: [facility] Imaging Services [address] [place] [address] Radiology Report MR#: [id number] Acct: [id number] Name: YOHANNES CADET Rep #: [id number] : 1945 M 67 From: Jakob Hunt MD PCP: Denisa Macias DO Status: REG CLI Study: Pelvis 1 or 2 Views Date of Exam: 07/09/13 Exam# [id number] Ordering Dr: Denisa Macias TUDY: X-RAY - [...] Jakob Hunt MD at 13:32 EDT Tel [phone], Service support [phone], CC: Denisa Macias DO Ceramic Design Engineer: Signed 09-Jul-2013 EKG (09461) Comments: nsr no acute chg - ant leads are old Result: [MEASUREMENTS ANALYSIS] Date of Test: 07/09/2013 08:48:02; Heart Rate: 57; WA Interval: 164; QRS: 106; QT Interval: 408; Corrected QT Interval (QTc): 403; P Wave Massillon: 25; QRS Wave Massillon: 60; T Wave Massillon : 62; Blood Pressure: 138/68 [ECG DIAGNOSTIC STATEMENTS] Date of Test: 07/09/2013 08:48:02; Summary: Sinus Bradycardia - Negative precordial T-waves. WITHIN NORMAL LIMITS Immunization Name Dates Details Influenza (3 years and up) on: 05-Jan-2008 Family History Unknown Family Member Name Dates Details Father Comments: [place]/CVA at 84 Status: Active Social History Name Dates Details Alcohol Use Comments: Occasional alcohol use Status: Active Non Smoker/No Tobacco Use Status: Active Tobacco use: Never smoker. Comments: 06/08/11 Status: Active Smoking Status Name Dates Details Never smoker Vital Signs Date Test Result Details :58 Temperature 96 f Comments: Method: Temporal [...] 2.27 m2 :15 Comments: eye-Dr at [facility] 2013hearing -wnl Pulse 57 /min Comments: Pattern: [...] 0.00 cm Results Date Description Value Details 61-Iry-086737:59 HgA1C , Office (23876) HgA1C , Office 7.2 % (Abnormal) Range: 4.6 - 7.1 98-Umb-864569:59 Blood Glucose , Office (11760) Blood Glucose , Office 128 (Normal) 3-Fox-704756:20 Microscopic Examination Comments: PATIENT WAS FASTINGPERFORMED BY: [facility] [address] [id number] BY: [employer] Qwwnwa[address] [place] [address] [id number] Bacteria None seen (Normal) Mucus Threads Present (Normal) Epithelial Cells (non renal) None seen {/hpf} (Normal) Range: 0 - 10 RBC None seen {/hpf} (Normal) Range: 0 - 2 WBC 0-5 {/hpf} (Normal) Range: 0 - 5 7-Kca-036158:20 CALCIFIDIOL (83229) VIT D Comments: PATIENT WAS FASTINGPERFORMED BY: [facility] [address] [id number] BY: [employer] Ganvwu3154 [facility] [id number] 25 Vitamin D, 25-Hydroxy 55.7 ng/mL (Normal) Range: 30.0-100.0 Comments: Vitamin D deficiency has been defined by the [place] of[place]icine and an Endocrine Society practice guideline as alevel of serum 25-OH vitamin D less than 20 ng/mL (1,2).The Endocrine Society went on to further define vitamin Dinsufficiency as a level between 21 and 29 ng/mL (2).1. IOM ([place] of Medicine). 2010. Dietary reference intakes for calcium and D. [place]: The National Academies Press.2. Charles MF, Raissa OCONNELL, Nirmala ALBERT, et al. Evaluation, treatment, and prevention of vitamin D deficiency: an Endocrine Society clinical practice guideline. JCEM. 2010; 96(7):1911-30. 8-Dkq-699305:20 TSH (87939) Comments: PATIENT WAS FASTINGPERFORMED BY: [employer] [id number] BY: [facility] VitaNewton Medical CenterPaqgcw4054 [facility] [id number] TSH 2.360 {uIU/mL} (Normal) Range: 0.450-4.500 6-Zfh-425738:20 URINALYSIS, W/ MICRO Comments: PATIENT WAS FASTINGPERFORMED BY: [employer] T[employer]gen[employer] Technologiesrp [address] [id number] BY: [employer] LabB[employer] Tunnelgenix TechnologiesNewton Medical CenterZtcgps9988 [facility] [id number] (03237) Microscopic Examination See below: (Normal) Comments: Microscopic was indicated and was performed. Microscopic Examination MICRON (Normal) Comments: Microscopic follows if indicated. Nitrite, Urine Negative (Normal) Urobilinogen,Semi-Qn 0.2 mg/dL (Normal) Range: 0.2-1.0 Bilirubin Negative (Normal) Occult Blood Negative (Normal) Ketones Negative (Normal) Glucose Negative (Normal) Protein Negative (Normal) WBC Esterase Negative (Normal) Appearance Clear (Normal) Urine-Color Yellow (Normal) pH 5.0 (Normal) Range: 5.0-7.5 Specific [place]oli 1.019 (Normal) Range: 1.005-1.030 0-Fei-436481:20 MICROALBUMIN: CREATININE Comments: PATIENT WAS FASTINGPERFORMED BY: [facility] LocalMegan [place] [address] [facility] [id number] BY: [facility] VitaDavid [place] 6396970 [facility] [id number] RATIO (07625) AND (91429) Alb/Creat Ratio <2.4 {mg/g_creat} (Normal) Range: 0.0-30.0 Comments: Normal: 0.0 - 30.0 Albuminuria: 31.0 - 300.0 Clinical albuminuria: >300.0 Albumin, Urine <3.0 ug/mL (Normal) Creatinine, Urine 123.5 mg/dL (Normal) 9-Hmk-383140:20 METABOLIC PANEL, Comments: PATIENT WAS FASTINGPERFORMED BY: [employer] [id number] BY: [facility] VitaNewton Medical CenterAylzaw7015 [facility] [id number] COMPREHENSIVE (86691) ALT (SGPT) 22 [iU]/L (Normal) Range: 0-44 [...] 8-27 Glucose 156 mg/dL (Abnormal) Range: 65-99 9-Hhk-124281:20 CBC W/AUTO DIFF WBC Comments: PATIENT WAS FASTINGPERFORMED BY: BN [facility] Hlqlevriqg2004 [facility] [id number] BY: CB [facility] Yjqzay6328 [facility] [id number] (08852) Immature Grans (Abs) 0.0 {x10E3/uL} (Normal) Range: [...] 4.14-5.80 WBC 5.8 {x10E3/uL} (Normal) Range: 3.4-10.8 1-Mkb-330279:20 LIPOPROTEIN, BLD, BY NMR Comments: PATIENT WAS FASTINGPERFORMED BY: BN [facility] Usvxsihpwq5238 [facility] [id number] BY: CB [facility] Jclljx9043 [facility] [id number] (57646) LP-IR Score 66 (Abnormal) Comments: INSULIN RESISTANCE MARKER <--Insulin Sensitive Insulin Resistant--> Percentile in Reference PopulationInsulin Resistance ScoreLP-IR Score Low 25th 50th 75th High <27 27 45 63 >63LP-IR Score is inaccurate if patient is non-fasting. .The LP-IR score is a laboratory developed i [facility] that has beenassociated with insulin resistance and [...] 1600 - 2000 Very High > 2000 16-Lwg-885320:40 HgA1C , Office (47374) HgA1C , Office 6.6 % (Normal) Range: 4.6 - 7.1 91-Bxz-460022:40 Blood Glucose , Office (26160) Blood Glucose , Office 75 (Normal) 54-Mta-351944:20 COLON BIOPSY (CHOOSE See Note (Normal) Comments: [facility] Vadxhqvqag8823 [facility]. [place], [place], [address] SITE) Comments: Patient: YOHANNES CADET : 1945 (72/M) Acct Num: [id number] Phys: FroydariusMg Unit Num: [id number] Loc: LABSPEC Specimen: [id number] Received: 09/20/171532 Spec Type: C OLON BX TISSUES TISSUES: Rectum, NOS GROSS DESCRIPTION Received in fixative is one container labeled with the patient's name and designated rectal polyp. The specimen predominantly consists of fecal material mixed with possible soares soft tissue, measuring in aggregate 2.5 x 0.6 x0.1 cm. The specimen is totally submitted in one cassette. BIJU:scott 09/23/17 TC: cannot code CPT: 68648 HEADER OPERATION: Colonoscopy with polypectomy PRE-OP DIAGNOSIS: Rectal bleeding TISSUE SUBMITTED: Rectal polyp MICROSCOPIC DESCRIPTION Slides are reviewed. MICROSCOPIC DIAGNOSIS Rectal polyp, polypectomy: Fragments of fecal material. Colonic mucosal tissue is not identified. BIJU:scott 09/24/18 Signed Magdy Purvis 09/24/17 <signature on file> 21-Bpa-148963:08 Microscopic Examination Comments: PATIENT WAS FASTINGPERFORMED BY: [employer] Jquxsv0346 Rosado RoadDublin [place] [id number] Bacteria None seen (Normal) Mucus Threads Present (Normal) Epithelial Cells (non renal) None seen {/hpf} (Normal) Range: 0 - 10 RBC None seen {/hpf} (Normal) Range: 0 - 2 WBC 0-5 {/hpf} (Normal) Range: 0 - 5 07-Slp-051739:08 T4, FREE (THYROXINE) (88131) Comments: PATIENT WAS FASTINGPERFORMED BY: [employer] Vefjfe6[address] [facility] HospitalDublin [place] [id number] T4,Free(Direct) 1.27 ng/dL (Normal) Range: 0.82-1.77 :08 T3, FREE (TRIDOTHYRONINE) (39986) Comments: PATIENT WAS FASTINGPERFORMED BY: [employer] Sgprvm7321 Rosado RoadDublin [place] [id number] Triiodothyronine,Free,Serum 2.7 pg/mL (Normal) Range: 2.0-4.4 59-Bbd-603650:08 CALCIFIDIOL (31459) VIT D 25 Comments: PATIENT WAS FASTINGPERFORMED BY: LabK[facility] Duthqp6074 Rosado RoadDublin [place] [id number] Vitamin D, 25-Hydroxy 57.4 ng/mL (Normal) Range: 30.0-100.0 Comments: Vitamin D deficiency has been defined by the [place] of[place]icine and an Endocrine Society practice guideline as alevel of serum 25-OH vitamin D less than 20 ng/mL (1,2).The Endocrine Society went on to further define vitamin Dinsufficiency as a level between 21 and 29 ng/mL (2).1. IOM ([place] of Medicine). 2010. Dietary reference intakes for calcium and D. [place]: The National Academies Press.2. Charles MF, Raissa NC, Nirmala ALBERT, et al. Evaluation, treatment, and prevention of vitamin D deficiency: an Endocrine Society clinical practice guideline. JCEM. 2010; 96(7):1911-30. 40-Iff-841254:08 TSH (16533) Comments: PATIENT WAS FASTINGPERFORMED BY: [facility]6370 [facility] [id number] TSH 3.370 {uIU/mL} (Normal) Range: 0.450-4.500 68-Mvd-271777:08 URINALYSIS, W/ MICRO (16966) Comments: PATIENT WAS FASTINGPERFORMED BY: [facility]6370 [facility] [id number] Microscopic Examination See below: (Normal) Comments: Microscopic was indicated and was performed. Microscopic Examination MICRON (Normal) Comments: Microscopic follows if indicated. Nitrite, Urine Negative (Normal) Urobilinogen,Semi-Qn 0.2 mg/dL (Normal) Range: 0.2-1.0 Bilirubin Negative (Normal) Occult Blood Negative (Normal) Ketones Negative (Normal) Glucose Negative (Normal) Protein Negative (Normal) WBC Esterase Negative (Normal) Appearance Clear (Normal) Urine-Color Yellow (Normal) pH 5.0 (Normal) Range: 5.0-7.5 Specific Pa[place] 1.026 (Normal) Range: 1.005-1.030 08-Fvq-819101:08 MICROALBUMIN: CREATININE RATIO Comments: PATIENT WAS FASTINGPERFORMED BY: [facility]6370 [facility] [id number] (19704) AND (68906) Alb/Creat Ratio 1.3 {mg/g_creat} (Normal) Range: 0.0-30.0 Albumin, Urine 3.1 ug/mL (Normal) Creatinine, Urine 237.2 mg/dL (Normal) 04-Ylh-316153:08 METABOLIC PANEL, COMPREHENSIVE Comments: PATIENT WAS FASTINGPERFORMED BY: [facility]Tr[facility]6370 [facility] [id number] (97203) ALT (SGPT) 17 [iU]/L (Normal) Range: 0-44 [...] 8-27 Glucose 142 mg/dL (Abnormal) Range: 65-99 68-Rwk-749193:08 CBC W/AUTO DIFF WBC (61987) Comments: PATIENT WAS FASTINGPERFORMED BY: LabCoNewton Medical CenterZxcwhf7280 [facility] [id number] Immature Grans (Abs) 0.0 {x10E3/uL} (Normal) Range: [...] {x10E3/uL} (Normal) Range: 3.4-10.8 :08 LIPID PANEL (27825) Comments: PATIENT WAS FASTINGPERFORMED BY: [facility]Tr[facility]6370 [facility] [id number] LDL/HDL Ratio 1.2 {ratio} (Normal) Range: 0.0-3.6 [...] (Normal) Range: 100-199 :08 HgA1C , Office (61209) HgA1C , Office 6.9 % (Normal) Range: 4.6 - 7.1 :08 Blood Glucose , Office (53348) Blood Glucose , Office 123 (Normal) 4-Sey-040084:23 Blood Glucose , Office (80529) Blood Glucose , Office 69 (Normal) :23 HgA1C , Office (13854) HgA1C , Office 7.1 % (Normal) Range: 4.6 - 7.1 2-Mkk-218106:23 Blood Glucose , Office (74647) Blood Glucose , Office 84 (Normal) 87-Pnp-195064:06 Microscopic Examination Comments: PATIENT WAS FASTINGPERFORMED BY: [facility] VitaNewton Medical CenterHuplvj0592 [facility] [id number] Bacteria Few (Normal) Mucus Threads Present (Normal) Epithelial Cells (non renal) None seen {/hpf} (Normal) Range: 0 - 10 RBC 0-2 {/hpf} (Normal) Range: 0 - 2 WBC 0-5 {/hpf} (Normal) Range: 0 - 5 0-Glz-263727:25 Methymalonic Acid, Serum Comments: PATIENT NOT FASTINGPERFORMED BY: [employer] [id number] BY: [employer] [id number] (34113) Methylmalonic Acid, Serum 586 nmol/L (Abnormal) Range: 0-378 7-Hpc-461494:25 METABOLIC PANEL, Comments: PATIENT NOT FASTINGPERFORMED BY: [employer] [id number] BY: [employer] [id number] Inf ormation: [id number], [id number] COMPREHENSIVE (84179) ALT (SGPT) 11 [iU]/L (Normal) Range: 0-44 [...] Glucose, Serum 153 mg/dL (Abnormal) Range: 65-99 5-Aei-919084:25 CBC (AUTO) (32702) Comments: PATIENT NOT FASTINGPERFORMED BY: [facility] Cjnetd300[address] [place] [address] [id number] BY: [employer] [id number] Platelets 213 {x10E3/uL} (Normal) Range: 150-379 RDW 14.0 % (Normal) Range: 12.3-15.4 MCHC 33.2 g/dL (Normal) Range: 31.5-35.7 MCH 27.5 pg (Normal) Range: 26.6-33.0 MCV 83 fL (Normal) Range: 79-97 Hematocrit 38.2 % (Normal) Range: 37.5-51.0 Hemoglobin 12.7 g/dL (Normal) Range: 12.6-17.7 RBC 4.62 {x10E6/uL} (Normal) Range: 4.14-5.80 WBC 4.6 {x10E3/uL} (Normal) Range: 3.4-10.8 6-Tmc-641606:25 TSH (75261) Comments: PATIENT NOT FASTINGPERFORMED BY: [facility] [id number] BY: [employer] [id number] TSH 3.040 {uIU/mL} (Normal) Range: 0.450-4.500 7-Qzq-667480:25 VITAMIN B-12 (CYANOCOBALAMIN) Comments: PATIENT NOT FASTINGPERFORMED BY: CB [facility] Qmydpv0449 Rosado RoadDublin [place] [id number] BY: [facility] [id number] (62107) Vitamin B12 227 pg/mL (Normal) Range: 211-946 1-Djk-713785:25 PSA (PROSTATE SPECIFIC Comments: PATIENT NOT FASTINGPERFORMED BY: CB [facility] Rsylmm2908 [address] RoadDublin [place] [id number] BY: [facility] [id number] ANTIGEN) (V76.44) Prostate Specific Ag, 2.0 ng/mL (Normal) Range: 0.0-4.0 Serum Comments: Commutable ECLIA methodology. .According to the [place] U[employer] Association, Serum PSA shoulddecrease and remain at undetectable levels after radicalprostatectomy. The AUA defines biochemical recurrence as an initialPSA value 0.2 ng/mL or greater followed by a subsequent confirmatoryPSA value 0.2 ng/mL or greater.Values obtained with d ifferent assay methods or kits cannot be usedinterchangeably. Results cannot be interpreted as absolute evidenceof the presence or absence of malignant disease. 87-Fjm-355778:06 CALCIFIDIOL (95965) VIT D 25 Comments: PATIENT WAS FASTINGPERFORMED BY: [facility] Lrevsv0946 [address] [facility] HospitalD[facility] [place] [id number] Vitamin D, 25-Hydroxy 42.4 ng/mL (Normal) Range: 30.0-100.0 Comments: Vitamin D deficiency has been defined by the [place] of[place]icine and an Endocrine Society practice guideline as alevel of serum 25-OH vitamin D less than 20 ng/mL (1,2).The Endocrine Society went on to further define vitamin Dinsufficiency as a level between 21 and 29 ng/mL (2).1. IOM ([place] of Medicine). 2010. Dietary reference intakes for calcium and D. [place]: The National Academies Press.2. Charles MF, Raissa OCONNELL, Nirmala ALBERT, et al. Evaluation, treatment, and prevention of vitamin D deficiency: an Endocrine Society clinical practice guideline. JCEM. 2010; 96(7):1911-30. :06 TSH (50531) Comments: PATIENT WAS FASTINGPERFORMED BY: [facility]6370 [facility] [id number] TSH 3.460 {uIU/mL} (Normal) Range: 0.450-4.500 60-Elo-097201:06 URINALYSIS, W/ MICRO (06013) Comments: PATIENT WAS FASTINGPERFORMED BY: [facility]6[address] [facility] [id number] Microscopic Examination See below: (Normal) Comments: Microscopic was indicated and was performed. Microscopic Examination MICRON (Normal) Comments: Microscopic follows if indicated. Nitrite, Urine Negative (Normal) Urobilinogen,Semi-Qn 0.2 mg/dL (Normal) Range: 0.2-1.0 Bilirubin Negative (Normal) Occult Blood Negative (Normal) Ketones Negative (Normal) Glucose Negative (Normal) Protein Negative (Normal) WBC Esterase Negative (Normal) Appearance Clear (Normal) Urine-Color Yellow (Normal) pH 5.0 (Normal) Range: 5.0-7.5 Specific [place] 1.020 (Normal) Range: 1.005-1.030 83-Wcv-669336:06 MICROALBUMIN: CREATININE RATIO Comments: PATIENT WAS FASTINGPERFORMED BY: [facility]6[address] [facility] [id number] (09414) AND (76841) Microalb/Creat Ratio <2.4 {mg/g_creat} (Normal) Range: 0.0-30.0 Microalbumin, Urine <3.0 ug/mL (Normal) Creatinine, Urine 127.3 mg/dL (Normal) :06 METABOLIC PANEL, COMPREHENSIVE Comments: PATIENT WAS FASTINGPERFORMED BY: [facility]6[address] [facility] [id number] (51271) ALT (SGPT) 15 [iU]/L (Normal) Range: 0-44 [...] Glucose, Serum 136 mg/dL (Abnormal) Range: 65-99 :06 LIPID PANEL (71470) Comments: PATIENT WAS FASTINGPERFORMED BY: [facility]Tr[facility]6370 [facility] [id number] LDL/HDL Ratio 1.5 {ratio_units} (Normal) Range: 0.0-3.6 Comments: LDL/HDL Ratio Men Women 1/2 Avg.Risk 1.0 1.5 Av g.Risk 3.6 3.2 2X Avg.Risk 6.2 5.0 3X Avg.Risk 8.0 6.1 LDL Cholesterol Calc 63 mg/dL (Normal) Range: 0-99 VLDL Cholesterol Ezequiel 25 mg/dL (Normal) Range: 5-40 HDL Cholesterol 42 mg/dL (Normal) Triglycerides 126 mg/dL (Normal) Range: 0-149 Cholesterol, Total 130 mg/dL (Normal) Range: 100-199 96-Vpf-754986:06 CBC W/AUTO DIFF WBC (61510) Comments: PATIENT WAS FASTINGPERFORMED BY: LabCoNewton Medical CenterWhmemh4115 [facility] [id number] Immature Grans (Abs) 0.0 {x10E3/uL} (Normal) Range: [...] (Normal) Range: 3.4-10.8 :32 HgA1C , Office (76198) HgA1C , Office 7.3 % (Abnormal) Range: 4.6 - 7.1 :32 Blood Glucose , Office (20065) Blood Glucose , Office 185 (Normal) :33 ALDOSTERONE (74751) Comments: PATIENT NOT FASTINGPERFORMED BY: [address] [id number] Aldosterone 3.8 ng/dL (Normal) Range: 0.0-30.0 Comments: This test was developed and its performance characteristicsdetermined by [facility]. It has not been cleared or approvedby the Food and Drug Administration. :33 RENIN (69343) Comments: PATIENT NOT FASTINGPERFORMED BY: [employer] [id number] Renin Activity, Plasma 0.402 {ng/mL/hr} Range: 0.167-5.380 (Normal) Comments: This test was developed and its performance characteristicsdetermined by [facility]. It has not been cleared or approvedby the Food and Drug Administration. :31 METANEPHRINES - URINE (35108) Comments: PATIENT NOT FASTINGPERFORMED BY: [employer] [id number] Metanephrine, U,24hr 238 {ug/24_hr} (Normal) Range: 45-290 Comments: (Hypertensive) >17 years 11 months: 35 - 460 Metanephrine, Ur 119 ug/L (Normal) Normetanephr.,U,24h 370 {ug/24_hr} (Normal) Range: 82-500 Comments: (Hypertensive) >17 years 11 months: 110 - 1050 Normetanephrine, Ur 185 ug/L (Normal) :31 CATECHOLAMINES TOTAL, URINE Comments: PATIENT NOT FASTINGPERFORMED BY: [address] [id number] Information: START 09/25/2016@447AM (32392) Dopamine, Ur, 24hr 280 {ug/24_hr} (Normal) Range: 0-510 Dopamine, Urine 140 ug/L (Normal) Norepinephrine,U,24h 42 {ug/24_hr} (Normal) Range: 0-135 Norepinephrine, Ur 21 ug/L (Normal) Epinephrine, U, 24hr 4 {ug/24_hr} (Normal) Range: 0-20 Epinephrine, Urine 2 ug/L (Normal) :31 URINE VMA (83687) Comments: PATIENT NOT FASTINGPERFORMED BY: PARUL [place] [address]99[address] [facility] [id number] VMA, Urine, 24hr 3.4 {mg/24_hr} (Normal) Range: 0.0-7.5 Comments: This test was developed and its performance characteristicsdetermined by [facility]. It has not been cleared or approvedby the Food and Drug Administration. VMA, Urine 1.7 mg/L (Normal) 51-Hae-505619:05 Microscopic Examination Comments: PATIENT WAS FASTINGPERFORMED BY: GUICHO [facility] Imwcnu2529 [facility] [id number] Bacteria None seen (Normal) Mucus Threads Present (Normal) Epithelial Cells (non renal) None seen {/hpf} (Normal) Range: 0 - 10 RBC 0-2 {/hpf} (Normal) Range: 0 - 2 WBC 0-5 {/hpf} (Normal) Range: 0 - 5 61-Bom-350573:05 LIPID PANEL (77440) Comments: PATIENT WAS FASTINGPERFORMED BY: GUICHO [facility] Zeaphm3346 [facility] [id number] LDL/HDL Ratio 1.3 {ratio_units} (Normal) Range: 0.0-3.6 Comments: LDL/HDL Ratio Men Women 1/2 Avg.Risk 1.0 1.5 Av g.Risk 3.6 3.2 2X Avg.Risk 6.2 5.0 3X Avg.Risk 8.0 6.1 LDL Cholesterol Calc 61 mg/dL (Normal) Range: 0-99 VLDL Cholesterol Ezequiel 19 mg/dL (Normal) Range: 5-40 HDL Cholesterol 47 mg/dL (Normal) Triglycerides 94 mg/dL (Normal) Range: 0-149 Cholesterol, Total 127 mg/dL (Normal) Range: 100-199 61-Jzd-971039:05 URINALYSIS, W/ MICRO (21132) Comments: PATIENT WAS FASTINGPERFORMED BY: [facility]6[address] [facility] [id number] Microscopic Examination See below: (Normal) Comments: Microscopic was indicated and was performed. Microscopic Examination MICRON (Normal) Comments: Microscopic follows if indicated. Nitrite, Urine Negative (Normal) Urobilinogen,Semi-Qn 0.2 mg/dL (Normal) Range: 0.2-1.0 Bilirubin Negative (Normal) Occult Blood Negative (Normal) Ketones Negative (Normal) Glucose Negative (Normal) Protein Negative (Normal) WBC Esterase Negative (Normal) Appearance Clear (Normal) Urine-Color Yellow (Normal) pH 5.5 (Normal) Range: 5.0-7.5 Specific [place] 1.024 (Normal) Range: 1.005-1.030 30-Fge-654446:05 MICROALBUMIN: CREATININE RATIO Comments: PATIENT WAS FASTINGPERFORMED BY: [employer] [facility] [id number] (28840) AND (46336) Microalb/Creat Ratio <1.7 {mg/g_creat} (Normal) Range: 0.0-30.0 Microalbumin, Urine <3.0 ug/mL (Normal) Creatinine, Urine 171.8 mg/dL (Normal) 51-Qcv-390922:05 METABOLIC PANEL, COMPREHENSIVE Comments: PATIENT WAS FASTINGPERFORMED BY: [facility]EC[facility] [id number] (35291) ALT (SGPT) 15 [iU]/L (Normal) Range: 0-44 [...] Glucose, Serum 117 mg/dL (Abnormal) Range: 65-99 98-Daw-287999:05 CBC W/AUTO DIFF WBC (98205) Comments: PATIENT WAS FASTINGPERFORMED BY: LabCoNewton Medical CenterRzuidg4778 [facility] [id number] Immature Grans (Abs) 0.0 {x10E3/uL} (Normal) Range: [...] 4.9 {x10E3/uL} (Normal) Range: 3.4-10.8 :05 TSH (06977) Comments: PATIENT WAS FASTINGPERFORMED BY: [facility] Tqeihp1733 [address] RoadDublin [place] [id number] TSH 3.460 {uIU/mL} (Normal) Range: 0.450-4.500 :05 T4, FREE (THYROXINE) (70627) Comments: PATIENT WAS FASTINGPERFORMED BY: [facility] Sqidmw5146 [address] RoadDublin [place] [id number] T4,Free(Direct) 1.34 ng/dL (Normal) Range: 0.82-1.77 :05 T3, FREE (TRIDOTHYRONINE) (06324) Comments: PATIENT WAS FASTINGPERFORMED BY: [facility] Kkzcfc2940 [address] RoadDublin [place] [id number] Triiodothyronine,Free,Serum 3.0 pg/mL (Normal) Range: 2.0-4.4 :05 CALCIFIDIOL (08910) VIT D 25 Comments: PATIENT WAS FASTINGPERFORMED BY: [facility] Lmznom9852 [address] RoadDublin [place] [id number] Vitamin D, 25-Hydroxy 46.6 ng/mL (Normal) Range: 30.0-100.0 Comments: Vitamin D deficiency has been defined by the [place] of[place]icine and an Endocrine Society practice guideline as alevel of serum 25-OH vitamin D less than 20 ng/mL (1,2).The Endocrine Society went on to further define vitamin Dinsufficiency as a level between 21 and 29 ng/mL (2).1. IOM ([place] of Medicine). 2010. Dietary reference intakes for calcium and D. [place]: The National Academies Press.2. Charles MF, Raissa NC, Nirmala ALBERT, et al. Evaluation, treatment, and prevention of vitamin D deficiency: an Endocrine Society clinical practice guideline. JCEM. 2010; 96(7):1911-30. :42 HgA1C , Office (68510) HgA1C , Office 6.6 % (Normal) Range: 4.6 - 7.1 :42 Blood Glucose , Office (89008) Blood Glucose , Office 117 (Normal) :59 HgA1C , Office (33266) HgA1C , Office 6.8 % (Normal) Range: 4.6 - 7.1 :59 Blood Glucose , Office (33007) Blood Glucose , Office 237 (Normal) :52 Rapid Flu (89089 x 2) Influenza A Ag neg (Normal) :19 HgA1C , Office (57706) HgA1C , Office 6.6 % (Normal) Range: 4.6 - 7.1 :19 Blood Glucose , Office (44866) Blood Glucose , Office 171 (Normal) :43 Microscopic Examination Comments: PATIENT WAS FASTINGPERFORMED BY: 6[facility]EC[facility] [id number] Bacteria Few (Normal) Mucus Threads Present (Normal) Epithelial Cells (non renal) 0-10 {/hpf} (Normal) Range: 0 - 10 RBC 0-2 {/hpf} (Normal) Range: 0 - 2 WBC 0-5 {/hpf} (Normal) Range: 0 - 5 :53 Serum Creatinine AND GFR Comments: [facility] [address]qkhwsjp[address] [place], [place], [id number] EST GFR - AA 83 mL/min (Normal) Comments: GFR Calc EST GFR 69 mL/min (Normal) Comments: Non- GFR Calc CREAT,SERUM 1.12 mg/dL (Normal) Range: 0.70-1.30 Comments: The validity of the calculated GFR AND GFRAA in patients over70 years has not been determined. Clinical correlation isessential. :43 CALCIFIDIOL (22025) VIT D 25 Comments: PATIENT WAS FASTINGPERFORMED BY: [employer] [address] [place] GroupNov[facility] [id number] Vitamin D, 25-Hydroxy 55.4 ng/mL (Normal) Range: 30.0-100.0 Comments: Vitamin D deficiency has been defined by the [place] of[place]icine and an Endocrine Society practice guideline as alevel of serum 25-OH vitamin D less than 20 ng/mL (1,2).The Endocrine Society went on to further define vitamin Dinsufficiency as a level between 21 and 29 ng/mL (2).1. IOM ([place] of Medicine). 2010. Dietary reference intakes for calcium and D. [place]: The National Academies Press.2. Charles MF, Raissa OCONNELL, Nirmala ALBERT, et al. Evaluation, treatment, and prevention of vitamin D deficiency: an Endocrine Society clinical practice guideline. JCEM. 2010; 96(7):1911-30. :43 URINALYSIS, W/ MICRO (32336) Comments: PATIENT WAS FASTINGPERFORMED BY: Wink [place] [id number] Microscopic Examination See below: (Normal) Comments: Microscopic was indicated and was performed. Microscopic Examination MICRON (Normal) Comments: Microscopic follows if indicated. Nitrite, Urine Negative (Normal) Urobilinogen,Semi-Qn 0.2 mg/dL (Normal) Range: 0.2-1.0 Bilirubin Negative (Normal) Occult Blood Negative (Normal) Ketones Negative (Normal) Glucose Negative (Normal) Protein Negative (Normal) WBC Esterase Negative (Normal) Appearance Clear (Normal) Urine-Color Yellow (Normal) pH 5.5 (Normal) Range: 5.0-7.5 Specific [place] 1.022 (Normal) Range: 1.005-1.030 :43 MICROALBUMIN: CREATININE RATIO Comments: PATIENT WAS FASTINGPERFORMED BY: [address] [place] [id number] (10561) AND (62929) Microalb/Creat Ratio <2.4 {mg/g_creat} (Normal) Range: 0.0-30.0 Microalbumin, Urine <3.0 ug/mL (Normal) Creatinine, Urine 122.5 mg/dL (Normal) :43 METABOLIC PANEL, COMPREHENSIVE Comments: PATIENT WAS FASTINGPERFORMED BY: [facility] VitaGallup Indian Medical CenterFxpquk6650 [facility] [id number] (15870) ALT (SGPT) 12 [iU]/L (Normal) Range: 0-44 [...] Glucose, Serum 120 mg/dL (Abnormal) Range: 65-99 7-Bfp-165763:43 TSH (32517) Comments: PATIENT WAS FASTINGPERFORMED BY: [facility] VitaGallup Indian Medical CenterIcrram6440 [facility] [id number] TSH 4.010 {uIU/mL} (Normal) Range: 0.450-4.500 2-Leq-018465:43 LIPID PANEL (55039) Comments: PATIENT WAS FASTINGPERFORMED BY: [facility] VitaGallup Indian Medical CenterTveizi3573 [facility] [id number] LDL/HDL Ratio 1.2 {ratio_units} (Normal) Range: 0.0-3.6 [...] Cholesterol, Total 117 mg/dL (Normal) Range: 100-199 6-Ydm-989113:43 CBC W/AUTO DIFF WBC (71576) Comments: PATIENT WAS FASTINGPERFORMED BY: [facility] Dzzmkb1279 [facility] [id number] Immature Grans (Abs) 0.0 {x10E3/uL} (Normal) Range: [...] (Normal) Range: 3.4-10.8 :27 HgA1C , Office (13826) HgA1C , Office 6.6 % (Normal) Range: 4.6 - 7.1 :27 Blood Glucose , Office (99643) Blood Glucose , Office 168 (Normal) :08 Microscopic Examination Comments: PATIENT WAS FASTINGPERFORMED BY: GUICHO [employer] GIDEEN [facility] [id number] Bacteria None seen (Normal) Mucus Threads Present (Normal) Epithelial Cells (non renal) None seen {/hpf} (Normal) Range: 0 - 10 RBC None seen {/hpf} (Normal) Range: 0 - 2 WBC 0-5 {/hpf} (Normal) Range: 0 - 5 :08 CALCIFIDIOL (81777) VIT D 25 Comments: PATIENT WAS FASTINGPERFORMED BY: GUICHO [employer] Vztedt8171 [address] 360EC[facility] [id number] Vitamin D, 25-Hydroxy 62.4 ng/mL (Normal) Range: 30.0-100.0 Comments: Vitamin D deficiency has been defined by the [place] ofBethesda North Hospitalcine and an Endocrine Society practice guideline as alevel of serum 25-OH vitamin D less than 20 ng/mL (1,2).The Endocrine Society went on to further define vitamin Dinsufficiency as a level between 21 and 29 ng/mL (2).1. IOM ([place] of Medicine). 2010. Dietary reference intakes for calcium and D. [place]: The National Academies Press.2. Charles MF, Raissa OCONNELL, Nirmala ALBERT, et al. Evaluation, treatment, and prevention of vitamin D deficiency: an Endocrine Society clinical practice guideline. JCEM. 2010; 96(7):1911-30. :08 URINALYSIS, W/ MICRO (28102) Comments: PATIENT WAS FASTINGPERFORMED BY: [facility]6370 [facility] [id number] Microscopic Examination See below: (Normal) Comments: Microscopic was indicated and was performed. Microscopic Examination MICRON (Normal) Comments: Microscopic follows if indicated. Nitrite, Urine Negative (Normal) Urobilinogen,Semi-Qn 0.2 mg/dL (Normal) Range: 0.2-1.0 Bilirubin Negative (Normal) Occult Blood Negative (Normal) Ketones Negative (Normal) Glucose Negative (Normal) Protein Negative (Normal) WBC Esterase Negative (Normal) Appearance Clear (Normal) Urine-Color Yellow (Normal) pH 6.0 (Normal) Range: 5.0-7.5 Specific [place] 1.022 (Normal) Range: 1.005-1.030 :08 MICROALBUMIN: CREATININE RATIO Comments: PATIENT WAS FASTINGPERFORMED BY: [facility]yTr[facility]6370 [facility] [id number] (13403) AND (13850) Microalb/Creat Ratio <1.8 {mg/g_creat} (Normal) Range: 0.0-30.0 Microalbumin, Urine <3.0 ug/mL (Normal) Creatinine, Urine 164.4 mg/dL (Normal) :08 METABOLIC PANEL, COMPREHENSIVE Comments: PATIENT WAS FASTINGPERFORMED BY: [facility]6370 [facility] [id number] (73209) ALT (SGPT) 16 [iU]/L (Normal) Range: 0-44 [...] Glucose, Serum 108 mg/dL (Abnormal) Range: 65-99 11-Lal-082394:08 LIPID PANEL (98426) Comments: PATIENT WAS FASTINGPERFORMED BY: [employer] [facility] [id number] LDL/HDL Ratio 1.4 {ratio_units} (Normal) Range: 0.0-3.6 [...] DIFF WBC Comments: PATIENT WAS FASTINGPERFORMED BY: [employer] [facility] [id number] Information: [id number] (77444) Immature Grans (Abs) 0.0 {x10E3/uL} (Normal) Range: [...] 5.5 {x10E3/uL} (Normal) Range: 3.4-10.8 :08 TSH (87180) Comments: PATIENT WAS FASTINGPERFORMED BY: [employer] [facility] [id number] TSH 4.000 {uIU/mL} (Normal) Range: 0.450-4.500 :03 HgA1C , Office (18101) HgA1C , Office 6.2 % (Normal) Range: 4.6 - 7.1 :03 Blood Glucose , Office (40801) Blood Glucose , Office 102 (Normal) 1-Dui-690472:49 Throat Culture (81543) Comments: PATIENT NOT FASTINGPERFORMED BY: IDMissionNewton Medical CenterQuqiso6708 [facility] [id number] Information: SRC:THRT [id number] Result 1 RRF (Normal) Comments: Routine respiratory alfredo Upper Respiratory Culture Final report (Normal) :02 Rapid Strep Test, Office (85730) Rapid Strep Test, Office Negative (Normal) :48 Influenza A&B Viral Comments: PATIENT NOT FASTINGPERFORMED BY: [employer] Wmkycu0355 [address] [facility] [id number] Information: SRC:NOS [id number] Culture (70249) Viral Culture,Rapid,Influenza FLUABN (Normal) Comments: Negative:No Influenza A or B detected. 8-Opf-959470:26 Rapid Flu (86223 x 2) Influenza A Ag negative (Normal) :30 HgA1C , Office (10121) HgA1C , Office 7.3 % (Abnormal) Range: 4.6 - 7.1 :30 Blood Glucose , Office (27799) Blood Glucose , Office 191 (Normal) :52 Microscopic Examination Comments: PATIENT WAS FASTINGPERFORMED BY: [employer] Mmbado1371 [facility] [id number] Bacteria None seen (Normal) Mucus Threads Present (Normal) Epithelial Cells (non renal) 0-10 {/hpf} (Normal) Range: 0 - 10 RBC 0-2 {/hpf} (Normal) Range: 0 - 2 WBC 0-5 {/hpf} (Normal) Range: 0 - 5 :52 CALCIFIDIOL (66268) VIT D 25 Comments: PATIENT WAS FASTINGPERFORMED BY: [facility] Pywnmr5615 [facility] [id number] Vitamin D, 25-Hydroxy 44.9 ng/mL (Normal) Range: 30.0-100.0 Comments: Vitamin D deficiency has been defined by the [place] of[place]icine and an Endocrine Society practice guideline as alevel of serum 25-OH vitamin D less than 20 ng/mL (1,2).The Endocrine Society went on to further define vitamin Dinsufficiency as a level between 21 and 29 ng/mL (2).1. IOM ([place] of Medicine). 2010. Dietary reference intakes for calcium and D. [place]: The National Academies Press.2. Chalres MF, Raissa NC, Nirmala ALBERT, et al. Evaluation, treatment, and prevention of vitamin D deficiency: an Endocrine Society clinical practice guideline. JCEM. 2010; 96(7):1911-30. :52 LIPID PANEL (79207) Comments: PATIENT WAS FASTINGPERFORMED BY: [facility] la VitaNewton Medical CenterTdfquh0442 [facility] [id number] LDL/HDL Ratio 2.4 {ratio_units} (Normal) Range: 0.0-3.6 [...] 196 mg/dL (Normal) Range: 100-199 :52 TSH (44394) Comments: PATIENT WAS FASTINGPERFORMED BY: [facility] la VitaNewton Medical CenterLfjfaw3810 [facility] [id number] TSH 4.480 {uIU/mL} (Normal) Range: 0.450-4.500 :52 URINALYSIS, W/ MICRO (74752) Comments: PATIENT WAS FASTINGPERFORMED BY: [facility]yTr[facility]6370 [facility] [id number] Microscopic Examination See below: (Normal) Comments: Microscopic was indicated and was performed. Microscopic Examination MICRON (Normal) Comments: Microscopic follows if indicated. Nitrite, Urine Negative (Normal) Urobilinogen,Semi-Qn 0.2 mg/dL (Normal) Range: 0.2-1.0 Bilirubin Negative (Normal) Occult Blood Negative (Normal) Ketones Negative (Normal) Glucose Negative (Normal) Protein Negative (Normal) WBC Esterase Negative (Normal) Appearance Clear (Normal) Urine-Color Yellow (Normal) pH 6.0 (Normal) Range: 5.0-7.5 Specific [place] 1.024 (Normal) Range: 1.005-1.030 :52 MICROALBUMIN: CREATININE RATIO Comments: PATIENT WAS FASTINGPERFORMED BY: IDMissionNewton Medical CenterPgxzvt2476 [facility] [id number] (23676) AND (63509) Microalb/Creat Ratio <2.2 {mg/g_creat} (Normal) Range: 0.0-30.0 Microalbumin, Urine <3.0 ug/mL (Normal) Range: 0.0-17.0 Creatinine, Urine 135.9 mg/dL (Normal) Range: 22.0-328.0 :52 METABOLIC PANEL, COMPREHENSIVE Comments: PATIENT WAS FASTINGPERFORMED BY: IDMission Glzdct9239 [facility] [id number]; will review at 02/21 appt (33416) ALT (SGPT) 13 [iU]/L (Normal) Range: 0-44 [...] Glucose, Serum 130 mg/dL (Abnormal) Range: 65-99 07-Xzr-63230:52 CBC W/AUTO DIFF WBC Comments: PATIENT WAS FASTINGPERFORMED BY: LabK[facility] Vuyyaw5368 [facility] [id number] Information: [id number] (23946) Immature Grans (Abs) 0.0 {x10E3/uL} (Normal) Range: [...] (Normal) Range: 3.4-10.8 :56 HgA1C , Office (16734) HgA1C , Office 5.9 % (Normal) Range: 4.6 - 7.1 :56 Blood Glucose , Office (24410) Blood Glucose , Office 103 (Normal) :35 HgA1C , Office (87887) HgA1C , Office 6.0 % (Normal) Range: 4.6 - 7.1 :34 Blood Glucose , Office (83382) Blood Glucose , Office 135 (Normal) :45 Potassium Comments: Test performed at:[facility] Srzdfijtql[address] [place] [address] K 4.3 mmol/L (Normal) Range: 3.5-5.1 :54 Comp. Metabolic Panel (14) Comments: PATIENT WAS FASTINGPERFORMED BY: [facility] Rczlfi1520 [facility] [id number] Information: [id number] ALT (SGPT) 11 [iU]/L (Normal) Range: 0-44 [...] Glucose, Serum 117 mg/dL (Abnormal) Range: 65-99 22-Iux-77321:54 Lipid Panel With LDL/HDL Comments: PATIENT WAS FASTINGPERFORMED BY: Agrivi70 [facility] [id number] Ratio LDL/HDL Ratio 2.1 {ratio_units} Range: 0.0-3.6 [...] 2.860 {uIU/mL} Comments: PATIENT WAS FASTINGPERFORMED BY: Hlidacky.cz6370 [facility] [id number] 9:54 (Normal) Range: 0.450-4.500 02-Aug-2014 Vitamin D, 25-Hydroxy 61.9 ng/mL (Normal) Comments: PATIENT WAS FASTINGPERFORMED BY: [employer] Tnlfqi8345 [facility] [id number] 9:54 Range: 30.0-100.0 Comments: Vitamin D deficiency has been defined by the [place] of[place]icine and an Endocrine Society practice guideline as alevel of serum 25-OH vitamin D less than 20 ng/mL (1,2).The Endocrine Society went on to further define vitamin Dinsufficiency as a level between 21 and 29 ng/mL (2).1. IOM ([place] of Medicine). 2010. Dietary reference intakes for calcium and D. [place]: The National Academies Press.2. Raissa Harrison, Nirmala ALBERT, et al. Evaluation, treatment, and prevention of vitamin D deficiency: an Endocrine Society clinical practice guideline. JCEM. 2010; 96(7):1911-30. :13 HgA1C , Office (40771) HgA1C , Office 6.8 % (Normal) Range: 4.6 - 7.1 :13 Blood Glucose , Office (28568) Blood Glucose , Office 218 (Normal) :24 Microscopic Examination Comments: PATIENT WAS FASTINGPERFORMED BY: [employer]6370 [facility] [id number] Bacteria None seen (Normal) Mucus Threads Present (Normal) Epithelial Cells (non renal) None seen {/hpf} (Normal) Range: 0 - 10 RBC 0-2 {/hpf} (Normal) Range: 0 - 2 WBC 0-5 {/hpf} (Normal) Range: 0 - 5 :24 Vitamin D Hydroxy (58912) Comments: PATIENT WAS FASTINGPERFORMED BY: [employer]6370 [address] 360EC[facility] [id number] Vitamin D, 25-Hydroxy 35.7 ng/mL (Normal) Range: 30.0-100.0 Comments: Vitamin D deficiency has been defined by the [place] of[place]icine and an Endocrine Society practice guideline as alevel of serum 25-OH vitamin D less than 20 ng/mL (1,2).The Endocrine Society went on to further define vitamin Dinsufficiency as a level between 21 and 29 ng/mL (2).1. IOM ([place] of Medicine). 2010. Dietary reference intakes for calcium and D. [place]: The National Academies Press.2. Raissa Harrison, Nirmala ALBERT, et al. Evaluation, treatment, and prevention of vitamin D deficiency: an Endocrine Society clinical practice guideline. JCEM. 2010; 96(7):1911-30. :24 URINALYSIS, W/ MICRO (31793) Comments: PATIENT WAS FASTINGPERFORMED BY: IDMission Jvvvcc0214 [facility] [id number] Microscopic Examination See below: (Normal) Comments: Microscopic was indicated and was performed. Microscopic Examination MICRON (Normal) Comments: Microscopic follows if indicated. Nitrite, Urine Negative (Normal) Urobilinogen,Semi-Qn 0.2 mg/dL (Normal) Range: 0.0-1.9 Bilirubin Negative (Normal) Occult Blood Negative (Normal) Ketones Negative (Normal) Glucose Negative (Normal) Protein Negative (Normal) WBC Esterase Negative (Normal) Appearance Clear (Normal) Urine-Color Yellow (Normal) pH 6.0 (Normal) Range: 5.0-7.5 Specific [place] 1.025 (Normal) Range: 1.005-1.030 27-Lde-420206:24 TSH (49756) Comments: PATIENT WAS FASTINGPERFORMED BY: IDMission Qdvbgx2541 [facility] [facility] [id number] TSH 2.740 {uIU/mL} (Normal) Range: 0.450-4.500 51-Sfx-126166:24 MICROALBUMIN: CREATININE RATIO Comments: PATIENT WAS FASTINGPERFORMED BY: IDMissionNewton Medical CenterXapidu0041 [facility] [id number] (11080) AND (02058) Microalb/Creat Ratio <1.5 {mg/g_creat} (Normal) Range: 0.0-30.0 Microalbumin, Urine <3.0 ug/mL (Normal) Range: 0.0-17.0 Creatinine, Urine 205.5 mg/dL (Normal) Range: 22.0-328.0 67-Cdu-447317:24 METABOLIC PANEL, COMPREHENSIVE Comments: PATIENT WAS FASTINGPERFORMED BY: IDMission Nwbohn8514 [facility] [id number] (81753) ALT (SGPT) 13 [iU]/L (Normal) Range: 0-44 [...] Glucose, Serum 138 mg/dL (Abnormal) Range: 65-99 36-Knu-219556:24 LIPID PANEL (40906) Comments: PATIENT WAS FASTINGPERFORMED BY: LabCoNewton Medical CenterBpqxda1251 [facility] [id number] LDL/HDL Ratio 3.2 {ratio_units} (Normal) Range: 0.0-3.6 [...] Cholesterol, Total 221 mg/dL (Abnormal) Range: 100-199 13-Vlj-877926:24 CBC W/AUTO DIFF WBC Comments: PATIENT WAS FASTINGPERFORMED BY: [facility] HospitalCoDavid Ville 6396970 [facility] [id number] Information: [id number] (26878) Immature Grans (Abs) 0.0 {x10E3/uL} (Normal) Range: [...] 4.14-5.80 WBC 5.0 {x10E3/uL} (Normal) Range: 3.4-10.8 40-Njj-112544:00 Fecal Occult Blood , Office (92520) Fecal Occult Blood , Office (Inhouse) negative (Normal) 46-Cfl-358599:57 PSA (PROSTATE SPECIFIC Comments: PATIENT NOT FASTINGPERFORMED BY: [place] 7298370 [facility] [id number] Information: [id number] ANTIGEN) (V76.44) Prostate Specific Ag, 1.5 ng/mL (Normal) Range: 0.0-4.0 Serum Comments: Dee ECLIA methodology. .According to the [place] U[employer] Association, Serum PSA shoulddecrease and remain [...] of malignant disease. :17 HgA1C , Office (38051) HgA1C , Office 7.0 % (Normal) Range: 4.6 - 7.1 :17 Blood Glucose , Office (26283) Blood Glucose , Office 118 (Normal) :50 HgA1C , Office (68135) HgA1C , Office 7.6 % (Abnormal) Range: 4.6 - 7.1 :50 Blood Glucose , Office (39907) Blood Glucose , Office 142 (Normal) 6-Nts-287560:44 Microscopic Examination Comments: PATIENT WAS FASTINGPERFORMED BY: [facility]EC[facility] [id number] Bacteria None seen (Normal) Mucus Threads Present (Normal) Epithelial Cells (non renal) None seen {/hpf} (Normal) Range: 0 - 10 RBC 0-2 {/hpf} (Normal) Range: 0 - 2 WBC 0-5 {/hpf} (Normal) Range: 0 - 5 :32 URINALYSIS, W/ MICRO (38536) Comments: PATIENT WAS FASTINGPERFORMED BY: Ignis IT SolutionsMeadowview Regional [facility] Center [id number] Microscopic Examination See below: (Normal) Comments: Microscopic was indicated and was performed. Microscopic Examination MICRON (Normal) Comments: Microscopic follows if indicated. Nitrite, Urine Negative (Normal) Urobilinogen,Semi-Qn 0.2 mg/dL (Normal) Range: 0.0-1.9 Bilirubin Negative (Normal) Ketones Negative (Normal) Occult Blood Negative (Normal) Glucose Trace (Abnormal) Protein Negative (Normal) WBC Esterase Negative (Normal) Appearance Clear (Normal) Urine-Color Yellow (Normal) pH 6.0 (Normal) Range: 5.0-7.5 Specific Pa[place] 1.024 (Normal) Range: 1.005-1.030 :32 MICROALBUMIN: CREATININE RATIO Comments: PATIENT WAS FASTINGPERFORMED BY: [employer] Xjxuck8188 [facility] [id number] (17766) AND (83020) Microalb/Creat Ratio 1.3 {mg/g_creat} (Normal) Range: 0.0-30.0 Creatinine, Urine 188.3 mg/dL (Normal) Range: 22.0-328.0 Microalbumin, Urine 2.4 ug/mL (Normal) Range: 0.0-17.0 :32 TSH (02630) Comments: PATIENT WAS FASTINGPERFORMED BY: [employer] Qfnmoa4262 [facility] [id number] TSH 3.250 {uIU/mL} (Normal) Range: 0.450-4.500 6-Meg-567809:32 METABOLIC PANEL, COMPREHENSIVE Comments: PATIENT WAS FASTINGPERFORMED BY: [employer] GIDEEN [facility] [id number]; will review at 10/08 appt (52365) ALT (SGPT) 22 [iU]/L (Normal) Range: 0-44 [...] Glucose, Serum 152 mg/dL (Abnormal) Range: 65-99 8-Poz-464576:32 LIPID PANEL (29604) Comments: PATIENT WAS FASTINGPERFORMED BY: Cl[employer] [facility] [id number] LDL/HDL Ratio 2.0 {ratio_units} (Normal) Range: 0.0-3.6 [...] MANUAL DIFF Comments: PATIENT WAS FASTINGPERFORMED BY: [employer] [facility] [id number] Information: [id number] (77067) Immature Grans (Abs) 0.0 {x10E3/uL} (Normal) Range: [...] (Normal) Range: 3.4-10.8 :37 HgA1C , Office (35825) HgA1C , Office 7.1 % (Normal) Range: 4.6 - 7.1 :37 Blood Glucose , Office (65389) Blood Glucose , Office 142 (Normal) 31-Qtn-120410:39 Microscopic Examination Comments: PATIENT WAS FASTINGPERFORMED BY: Agrivi70 [place] [id number] Bacteria None seen (Normal) Mucus Threads Present (Normal) Epithelial Cells (non renal) None seen {/hpf} (Normal) Range: 0 - 10 RBC None seen {/hpf} (Normal) Range: 0 - 3 WBC 0-5 {/hpf} (Normal) Range: 0 - 5 :13 Vitamin D Hydroxy (92491) Comments: PATIENT WAS FASTINGPERFORMED BY: [place] [id number] Vitamin D, 25-Hydroxy 35.9 ng/mL (Normal) Range: 30.0-100.0 Comments: Vitamin D deficiency has been defined by the [place] of[place] and an Endocrine Society practice guideline as alevel of serum 25-OH vitamin D less than 20 ng/mL (1,2).The Endocrine Society went on to further define vitamin Dinsufficiency as a level between 21 and 29 ng/mL (2).1. IOM ([place] of Medicine). 2010. Dietary reference intakes for calcium and D. [place]: The National Academies Press.2. Charles MF, Raissa OCONNELL, Nirmala ALBERT, et al. Evaluation, treatment, and prevention of vitamin D deficiency: an Endocrine Society clinical practice guideline. JCEM. 2010; 96(7):1911-30. :13 TSH (56087) Comments: PATIENT WAS FASTINGPERFORMED BY: Clear[employer] Data6370 [place] [id number] TSH 4.190 {uIU/mL} (Normal) Range: 0.450-4.500 :13 URINALYSIS, W/ MICRO (83545) Comments: PATIENT WAS FASTINGPERFORMED BY: IDMissionrp Xktnus7025 Blueroof 360EC[facility] [id number] Microscopic Examination MICRON (Normal) Comments: Microscopic follows if indicated. Microscopic Examination See below: (Normal) Nitrite, Urine Negative (Normal) Urobilinogen,Semi-Qn 0.2 mg/dL (Normal) Range: 0.0-1.9 Bilirubin Negative (Normal) Occult Blood Negative (Normal) Ketones Negative (Normal) Glucose Negative (Normal) Protein Negative (Normal) Appearance Clear (Normal) WBC Esterase Negative (Normal) Urine-Color Yellow (Normal) pH 7.0 (Normal) Range: 5.0-7.5 Specific [place] 1.023 (Normal) Range: 1.005-1.030 :13 MICROALBUMIN: CREATININE RATIO Comments: PATIENT WAS FASTINGPERFORMED BY: IDMissionrp Rdetdc8249 [employer]of 360[facility] [id number] (79815) AND (71535) Microalb/Creat Ratio 1.4 {mg/g_creat} (Normal) Range: 0.0-30.0 Creatinine, Urine 177.1 mg/dL (Normal) Range: 22.0-328.0 Microalbumin, Urine 2.5 ug/mL (Normal) Range: 0.0-17.0 :13 METABOLIC PANEL, COMPREHENSIVE Comments: PATIENT WAS FASTINGPERFORMED BY: Agrivi70 [employer] 360[facility] [id number] (54531) ALT (SGPT) 17 [iU]/L (Normal) Range: 0-44 [...] mg/dL (Abnormal) Range: 65-99 :13 LIPID PANEL (81488) Comments: PATIENT WAS FASTINGPERFORMED BY: [employer]Story Data6370 [employer] 360[facility] [id number] LDL/HDL Ratio 1.8 {ratio_units} (Normal) Range: 0.0-3.6 LDL Cholesterol Calc 86 mg/dL (Normal) Range: 0-99 VLDL Cholesterol Ezequiel 18 mg/dL (Normal) Range: 5-40 HDL Cholesterol 48 mg/dL (Normal) Comments: According to ATP-III Guidelines, HDL-C >59 mg/dL is considered anegative risk factor for CHD. Triglycerides 92 mg/dL (Normal) Range: 0-149 Cholesterol, Total 152 mg/dL (Normal) Range: 100-199 00-Kxy-40485:13 CBC WITH MANUAL DIFF Comments: PATIENT WAS FASTINGPERFORMED BY: LabCoNewton Medical CenterCoyfix0971 [facility] [id number] Information: [id number] (99481) Immature Grans (Abs) 0.0 {x10E3/uL} (Normal) Range: [...] (Normal) Range: 3.4-10.8 :31 HgA1C , Office (66603) HgA1C , Office 6.7 % (Normal) Range: 4.6 - 7.1 :31 Blood Glucose , Office (34925) Blood Glucose , Office 141 (Normal) :55 HgA1C , Office (47228) HgA1C , Office 6.4 % (Normal) Range: 4.6 - 7.1 :55 Blood Glucose , Office (41226) Blood Glucose , Office 116 (Normal) :33 Microscopic Examination Comments: PATIENT WAS FASTINGPERFORMED BY: [employer] Data6370 [facility] [id number] Bacteria None seen (Normal) Mucus Threads Present (Normal) Epithelial Cells (non renal) None seen {/hpf} (Normal) Range: 0 - 10 RBC 0-3 {/hpf} (Normal) Range: 0 - 3 WBC 0-5 {/hpf} (Normal) Range: 0 - 5 :33 PSA (PROSTATE SPECIFIC Comments: PATIENT WAS FASTINGPERFORMED BY: Clear[employer] Data6370 [facility] [id number] ANTIGEN) (V76.44) Prostate Specific Ag, 1.5 ng/mL (Normal) Range: 0.0-4.0 Serum Comments: Commutable ECLIA methodology. .According to the [place] [employer] Association, Serum PSA shoulddecrease and remain at undetectable levels after radicalprostatectomy. The AUA defines biochemical recurrence as an initialPSA value 0.2 ng/mL or greater followed by a subsequent confirmatoryPSA value 0.2 ng/mL or greater.Values obtained with d ifferent assay methods or kits cannot be usedinterchangeably. Results cannot be interpreted as absolute evidenceof the presence or absence of malignant disease. :33 TSH (40371) Comments: PATIENT WAS FASTINGPERFORMED BY: [facility]arrantyTr[facility]6370 [facility] [id number] TSH 2.770 {uIU/mL} (Normal) Range: 0.450-4.500 :33 URINALYSIS, W/ MICRO (06127) Comments: PATIENT WAS FASTINGPERFORMED BY: [place] 7298370 [facility] [id number] Microscopic Examination See below: (Normal) Microscopic Examination MICRON (Normal) Comments: Microscopic follows if indicated. Nitrite, Urine Negative (Normal) Urobilinogen,Semi-Qn 0.2 mg/dL (Normal) Range: 0.0-1.9 Bilirubin Negative (Normal) Occult Blood Negative (Normal) Ketones Negative (Normal) Glucose Negative (Normal) Protein Negative (Normal) WBC Esterase Negative (Normal) Appearance Clear (Normal) Urine-Color Yellow (Normal) pH 6.0 (Normal) Range: 5.0-7.5 Specific [place] 1.026 (Normal) Range: 1.005-1.030 84-Cpe-504010:33 MICROALBUMIN: CREATININE RATIO Comments: PATIENT WAS FASTINGPERFORMED BY: [facility]arrantyTr[facility]6370 [facility] [id number] (35725) AND (99912) Microalb/Creat Ratio 1.8 {mg/g_creat} (Normal) Range: 0.0-30.0 Microalbumin, Urine 3.6 ug/mL (Normal) Range: 0.0-17.0 Creatinine, Urine 203.4 mg/dL (Normal) Range: 22.0-328.0 21-Yhc-222845:33 METABOLIC PANEL, COMPREHENSIVE Comments: PATIENT WAS FASTINGPERFORMED BY: [facility]6370 [facility] [id number] (74564) ALT (SGPT) 16 [iU]/L (Normal) Range: 0-44 [...] Glucose, Serum 114 mg/dL (Abnormal) Range: 65-99 14-Eyz-766159:33 LIPID PANEL (25197) Comments: PATIENT WAS FASTINGPERFORMED BY: [employer] [facility] [id number] LDL/HDL Ratio 1.3 {ratio_units} (Normal) Range: 0.0-3.6 LDL Cholesterol Calc 63 mg/dL (Normal) Range: 0-99 VLDL Cholesterol Ezequiel 25 mg/dL (Normal) Range: 5-40 HDL Cholesterol 47 mg/dL (Normal) Comments: According to ATP-III Guidelines, HDL-C >59 mg/dL is considered anegative risk factor for CHD. Triglycerides 123 mg/dL (Normal) Range: 0-149 Cholesterol, Total 135 mg/dL (Normal) Range: 100-199 01-Hhf-706711:33 CBC WITH MANUAL DIFF Comments: PATIENT WAS FASTINGPERFORMED BY: IDMissionGallup Indian Medical CenterUpecws6318 [facility] [id number] Information: [id number] (41083) Immature Grans (Abs) 0.0 {x10E3/uL} (Normal) Range: [...] (Normal) Range: 4.0-10.5 :22 HgA1C , Office (08425) HgA1C , Office 6.3 % (Normal) Range: 4.6 - 7.1 :22 Blood Glucose , Office (20567) Blood Glucose , Office 109 (Normal) :49 ALDOS 9.3 ng/dL (Normal) Range: 0.0-30.0 :49 CATU tDOP24 674 Range: 0-510 {ug/24_hr} Comments: TESTING PERFORMED AT [facility]. ORIGINAL REPORT ONFILE IN LAB CONTAINS ADDITIONAL [...] metanephrines and plasma catecolamines. TESTING PERFORMED AT [facility]. ORIGINAL REPORT ONFILE IN LAB CONTAINS ADDITIONAL [...] >150 0.39 - 1.31Performed at: - [facility] [address] [id number] Director: Bruno Williamson MD, Phone: [phone] - (Normal) M joceline y - 2 0 1 3 9 : 4 9 81-Bpd-22352:49 VMA tVMA24 4.6 {mg/24_hr} (Normal) Range: 0.0-7.5 [...] 126 mg/dLsuggests DIABETES MELLITUS per A.D.A. criteria. 76-Zdm-329524:15 CBCD ANC 3.6 3/uL (Normal) Range: 2.0-7.7 [...] 4.6-6.2 WBC 6.4 {k/mm3} (Normal) Range: 4.4-11.0 67-Jti-77202:00 BRAIN W/WO CONTRAST Radiology Report See Note [...] Stauffer M.D.August 08, 2012 at 10:05:25 PM [id number] Signed AH/AH If you are the referring physician and would like to consult with theradiologist who provided this interpretation, please contact Chad Mast at [phone]. If this radiologist is unavailable,you will be directed to another radiologist to assist. If you are a patient with a question regarding this report, pleasecontactyour referring physician directly . Professional Interpretation Provided By: WorldAPP, Phone , These documents contain legally protected [...] on 08/08/122207 Sign by: MIKHAIL STAUFFER MD 67-Mmf-947644:32 BRAIN/HEAD WITHOUT CONTRAST Radiology Report See Note [...] Fontenot M.D.August 04, 2012 at 5:16:58 PM [id number] Signed DN/DN If you are the referring physician and would like to consult with theradiologist who pro vided this interpretation, please contact Heather Ng M.D. at [phone]. If this radiologist is unavailable, youwillbe directed to another radiologist to assist. If you are a patient with a quest ion regarding this report, pleasecontactyour referring physician directly. Professional Interpretation Provided By: WorldAPP, Phone , These documents contain legally pro tected and confidential healthinformation intended only for the use of the individual or entity namedabove. If you are not the intended recipient, you are hereby notifiedthatany disclosure, copying, dis tribution, or other use of these documents isstrictly prohibited. If you have received this information in error,pleasenotify the sender immediately and arrange for the return or destructionofthese danielleu ments. Dictated on 08/04/12 1645 by HEATHER FONTENOT MD RTranscribed on 08/04/121717 by ITS IMPORTSign by HEATHER FONTENOT MD on 08/04/121718 Sign by: ___ HEATHER FONTENOT MD 25-Zht-678595:36 CBCD ANC 4.1 3/uL (Normal) Range: 2.0-7.7 [...] METABOLIC PANEL, Comments: PATIENT NOT FASTINGPERFORMED BY: LabCoNewton Medical CenterEfayeh2959 [facility] [id number] Information: [id number] COMPREHENSIVE (52399) ALT (SGPT) 13 [iU]/L (Normal) Range: 0-44 [...] (Normal) Range: 65-99 :01 HgA1C , Office (43858) HgA1C , Office 6.2 % (Normal) Range: 4.6 - 7.1 :01 Blood Glucose , Office (16432) Blood Glucose , Office 89 (Normal) :48 Microscopic Examination Comments: PATIENT WAS FASTINGPERFORMED BY: LabCoNewton Medical CenterOolnul0140 [facility] [id number] Bacteria Few (Normal) Mucus Threads Present (Normal) Epithelial Cells (non renal) None seen {/hpf} (Normal) Range: 0 - 10 RBC 0-3 {/hpf} (Normal) Range: 0 - 3 WBC 0-5 {/hpf} (Normal) Range: 0 - 5 :48 TSH (46227) Comments: PATIENT WAS FASTINGPERFORMED BY: Viva la VitaGallup Indian Medical CenterIccvzd0507 [facility] [id number] TSH 5.340 {uIU/mL} (Abnormal) Range: 0.450-4.500 :48 URINALYSIS, W/ MICRO (09273) Comments: PATIENT WAS FASTINGPERFORMED BY: Viva la VitaGallup Indian Medical CenterUzcvcp1354 [facility] [id number] Microscopic Examination See below: (Normal) Microscopic Examination MICRON (Normal) Comments: Microscopic follows if indicated. Bilirubin Negative (Normal) Nitrite, Urine Negative (Normal) Urobilinogen,Semi-Qn 0.2 mg/dL (Normal) Range: 0.0-1.9 Occult Blood Negative (Normal) Ketones Negative (Normal) Glucose Negative (Normal) Protein Negative (Normal) WBC Esterase Negative (Normal) Appearance Clear (Normal) pH 5.5 (Normal) Range: 5.0-7.5 Urine-Color Yellow (Normal) Specific Pa[place] 1.028 (Normal) Range: 1.005-1.030 :48 MICROALBUMIN: CREATININE RATIO Comments: PATIENT WAS FASTINGPERFORMED BY: Viva la VitaGallup Indian Medical CenterWqwwja7025 [facility] [id number] (35634) AND (96958) Microalb/Creat Ratio 1.6 {mg/g_creat} (Normal) Range: 0.0-30.0 Creatinine, Urine 195.7 mg/dL (Normal) Range: 22.0-328.0 Microalbumin, Urine 3.2 ug/mL (Normal) Range: 0.0-17.0 :48 METABOLIC PANEL, COMPREHENSIVE Comments: PATIENT WAS FASTINGPERFORMED BY: Viva la VitaNewton Medical CenterVzlqnc8368 [facility] [id number] (20685) ALT (SGPT) 16 [iU]/L (Normal) Range: 0-44 [...] mg/dL (Normal) Range: 65-99 :48 LIPID PANEL (66900) Comments: PATIENT WAS FASTINGPERFORMED BY: Agrivi70 [employer] 360[facility] [id number] LDL Cholesterol Calc 97 mg/dL (Normal) Range: [...] MANUAL DIFF Comments: PATIENT WAS FASTINGPERFORMED BY: [employer] Data6370 [facility] [id number] Information: [id number] (31945) Immature Grans (Abs) 0.0 {x10E3/uL} (Normal) Range: [...] (Normal) Range: 4.0-10.5 :46 HgA1C , Office (01442) HgA1C , Office 6.1 % (Normal) Range: 4.6 - 7.1 :46 Blood Glucose , Office (88729) Blood Glucose , Office 91 (Normal) 9-Pgh-541905:25 HEPATOBILLIARY IMG W/PHARM INT Radiology Report See [...] Cholecystokinin (0.02 ug/kg) was administered intravenously over d67-ruzecv period. The post CCK gallbladder ejection fraction mzjqjeekylvq15 minutes following Cholecystokinin administration was noted to [...] Richmond M.D.December 24, 2011 at 8:34:10 PM [id number] S igned RB/RB If you are the referring physician and would like to consult with theradiologist who provided this interpretation, please contact Chad Aragon at [phone]. If this radiologist is un available, you will bedirected to another radiologist to assist. If you are a patient with a question regarding this report, pleasecontactyour referring physician directly. Professional Interpretation P rovided By: WorldAPP, Phone , These documents contain legally protected and confidential healthinformation intended only for the use of the individual or entity namedabo gustabo. If you are not the intended recipient, [...] on 12/24/112116 Sign by: Aamir Richmond DO :56 GALLBLADDER Radiology Report See Note (Normal) Comments: [...] size of the right kidney. The right mdwmwdxotsekjn94.6 cm. Normal rolando al cortex. The right cortex measures 1.8 cm. Thereisno demonstrated renal mass or cyst. There is no right hydronephrosis. IMPRESSION:Sludge in the gallbladder lumen, with a thickened gallbladder wall .Correlation with nuclear medicine hepatobiliary scan is recommended. Signed:Jakob Hunt M.D.December 18, 2011 at 11:00:05 AM [id number] Signed GP/GP If you are the referring physician and would like to consult with theradiologist who provided this interpretation, please contact Chad Lao at [phone]. If this radiologist is unavailable, youwill be directed to another radiologist to assist. If you are a patient with a question regarding this report, pleasecontactyour referring physician directly. Professional Interpretation Provided By: WorldAPP, Phone , These documents contain legally protected [...] 12/18/11 0940 by Jordy Hunt MDscribed on 12/18/11 111 by ITS IMPORTSign by Jakob Hunt MD 12/18/11 1118 Sign by: Jakob Hunt MD :41 HgA1C , Office (90496) HgA1C , Office 6.2 % (Normal) Range: 4.6 - 7.1 :41 Blood Glucose , Office (77405) Blood Glucose , Office 115 (Normal) :37 HgA1C , Office (72396) HgA1C , Office 6.4 % (Normal) Range: 4.6 - 7.1 :37 Blood Glucose , Office (09867) Blood Glucose , Office 119 (Normal) :44 PSA (PROSTATE SPECIFIC Comments: PATIENT WAS FASTINGPERFORMED BY: [facility]Tr[facility]6370 [facility] [id number] ANTIGEN) (V76.44) Prostate Specific Ag, 1.7 ng/mL (Normal) Range: 0.0-4.0 Serum Comments: YoucruitIA methodology. .According to the [place] [employer] Association, Serum PSA shoulddecrease and remain at undetectable levels after radicalprostatectomy. The AUA defines biochemical recurrence as an initialPSA value 0.2 ng/mL or greater followed by a subsequent confirmatoryPSA value 0.2 ng/mL or greater.Values obtained with d ifferent assay methods or kits cannot be usedinterchangeably. Results cannot be interpreted as absolute evidenceof the presence or absence of malignant disease. :44 TSH (63219) Comments: PATIENT WAS FASTINGPERFORMED BY: [employer]6370 [facility] [id number] TSH 2.660 {uIU/mL} (Normal) Range: 0.450-4.500 :44 URINALYSIS, W/ MICRO (26885) Comments: PATIENT WAS FASTINGPERFORMED BY: [employer]6370 [facility] [id number] Microscopic Examination See below: (Normal) Microscopic Examination MICRON (Normal) Comments: Microscopic follows if indicated. Nitrite, Urine Negative (Normal) Urobilinogen,Semi-Qn 0.2 mg/dL (Normal) Range: 0.0-1.9 Bilirubin Negative (Normal) Occult Blood Negative (Normal) Ketones Negative (Normal) Glucose Negative (Normal) Protein Negative (Normal) WBC Esterase Negative (Normal) Appearance Clear (Normal) Urine-Color Yellow (Normal) pH 6.0 (Normal) Range: 5.0-7.5 Specific [place] 1.024 (Normal) Range: 1.005-1.030 :44 MICROALBUMIN: CREATININE RATIO Comments: PATIENT WAS FASTINGPERFORMED BY: IDMission Mxgnxf6991 [facility] [id number] (20992) AND (77187) Microalb/Creat Ratio 1.1 {mg/g_creat} (Normal) Range: 0.0-30.0 Microalbumin, Urine 3.2 ug/mL (Normal) Range: 0.0-17.0 Creatinine, Urine 294.1 mg/dL (Normal) Range: 22.0-328.0 :44 Microscopic Examination Comments: PATIENT WAS FASTINGPERFORMED BY: Viva la VitaNewton Medical CenterMrcthe8507 [facility] [id number] Bacteria None seen (Normal) Mucus Threads Present (Normal) Epithelial Cells (non renal) None seen {/hpf} (Normal) Range: 0 - 10 RBC 0-3 {/hpf} (Normal) Range: 0 - 3 WBC 0-5 {/hpf} (Normal) Range: 0 - 5 :44 METABOLIC PANEL, COMPREHENSIVE Comments: PATIENT WAS FASTINGPERFORMED BY: [employer] Data6370 [facility] [id number] (71478) ALT (SGPT) 21 [iU]/L (Normal) Range: 0-55 [...] mg/dL (Abnormal) Range: 65-99 :44 LIPID PANEL (13060) Comments: PATIENT WAS FASTINGPERFORMED BY: The Clymb Lfgllc1924 [facility] [id number] LDL/HDL Ratio 1.2 {ratio_units} (Normal) Range: 0.0-3.6 [...] MANUAL DIFF Comments: PATIENT WAS FASTINGPERFORMED BY: Handprintlin6370 [facility] [id number] Information: [id number] (48028) Immature Grans (Abs) 0.0 {x10E3/uL} (Normal) Range: [...] (Normal) Range: 4.0-10.5 :25 HgA1C , Office (46522) HgA1C , Office 6.2 % (Normal) Range: 4.6 - 7.1 :25 Blood Glucose , Office (30867) Blood Glucose , Office 84 (Normal) :56 Blood Glucose , Office (40826) Blood Glucose , Office 96 (Normal) 4-Klu-850974:29 SPINE, LUMBAR (ROUTINE) Radiology Report See Note [...] HEATHER FONTENOT MD :08 HgA1C , Office (57945) HgA1C , Office 6.3 % (Normal) Range: 4.6 - 7.1 :08 Blood Glucose , Office (95538) Blood Glucose , Office 108 (Normal) :50 URINALYSIS, W/ MICRO (19328) Comments: PATIENT WAS FASTINGPERFORMED BY: [facility] [place] [id number] Microscopic Examination See below: (Normal) Microscopic Examination MICRON (Normal) Comments: Microscopic follows if indicated. Nitrite, Urine Negative (Normal) Urobilinogen,Semi-Qn 0.2 mg/dL (Normal) Range: 0.0-1.9 Bilirubin Negative (Normal) Occult Blood Negative (Normal) Ketones Negative (Normal) Glucose Negative (Normal) Protein Negative (Normal) WBC Esterase Negative (Normal) Appearance Clear (Normal) Urine-Color Yellow (Normal) pH 5.5 (Normal) Range: 5.0-7.5 Specific [place] 1.022 (Normal) Range: 1.005-1.030 :50 MICROALBUMIN: CREATININE RATIO Comments: PATIENT WAS FASTINGPERFORMED BY: [facility] [id number] ([id number]) AND (77941) Microalb/Creat Ratio <.6 {mg/g_creat} (Normal) Range: 0.0-30.0 Creatinine, Urine 163.1 mg/dL (Normal) Range: 22.0-328.0 Microalbumin, Urine <1.0 ug/mL (Normal) Range: 0.0-17.0 Comments: Verified by repeat analysis :50 METABOLIC PANEL, COMPREHENSIVE Comments: PATIENT WAS FASTINGPERFORMED BY: Agrivi70 [employer] [facility] [id number] ([id number]) ALT (SGPT) 16 [iU]/L (Normal) Range: 0-55 [...] mg/dL (Abnormal) Range: 65-99 :50 LIPID PANEL (86723) Comments: PATIENT WAS FASTINGPERFORMED BY: [employer] [facility] [id number] LDL Cholesterol Calc 68 mg/dL (Normal) Range: [...] MANUAL DIFF Comments: PATIENT WAS FASTINGPERFORMED BY: [facility] Qaqsew4141 [facility] [id number] Information: [id number] (21681) Immature Grans (Abs) 0.0 {x10E3/uL} (Normal) Range: [...] Microscopic Examination Comments: PATIENT WAS FASTINGPERFORMED BY: [employer] Tgmzmc7010 [facility] [id number] Bacteria Few (Normal) Mucus Threads Present (Normal) Epithelial Cells (non renal) None seen {/hpf} (Normal) Range: 0 - 10 RBC None seen {/hpf} (Normal) Range: 0 - 3 WBC 0-5 {/hpf} (Normal) Range: 0 - 5 :58 HgA1C , Office (46739) HgA1C , Office 6.0 % (Normal) Range: 4.6 - 7.1 :58 Blood Glucose , Office (01735) Blood Glucose , Office 93 (Normal) :13 PSA (PROSTATE SPECIFIC Comments: PATIENT NOT FASTINGPERFORMED BY: [employer] Sejhaf4045 [facility] [id number] Information: [id number] ANTIGEN) (V76.44) Prostate Specific Ag, 1.5 ng/mL (Normal) Range: 0.0-4.0 Serum Comments: Dee ECLIA methodology. .According to the [place] U[employer] Association, Serum PSA shoulddecrease and remain [...] of malignant disease. :16 HgA1C , Office (22080) HgA1C , Office 6.2 % (Normal) Range: 4.6 - 7.1 :16 Blood Glucose , Office (30342) Blood Glucose , Office 196 (Normal) 7-Bfn-227416:15 TSH (03921) Comments: PATIENT WAS FASTINGPERFORMED BY: [employer] [facility]arrantyTr[facility]6370 [facility] [id number] TSH 3.200 {uIU/mL} (Normal) Range: 0.450-4.500 8-Gzk-181492:15 MICROALBUMIN: CREATININE RATIO Comments: PATIENT WAS FASTINGPERFORMED BY: [facility]yTr[facility]6370 [facility] [id number] (71183) AND (89977) Creatinine, Urine 168.7 mg/dL (Normal) Range: 22.0-328.0 Microalb/Creat Ratio 1.5 {mg/g_creat} (Normal) Range: 0.0-30.0 Microalbumin, Urine 2.5 ug/mL (Normal) Range: 0.0-17.0 3-Eij-478994:15 METABOLIC PANEL, COMPREHENSIVE Comments: PATIENT WAS FASTINGPERFORMED BY: [facility] VitaNewton Medical CenterDsqqrq8473 [facility] [id number] (58883) A/G Ratio 1.8 (Normal) Range: 1.1-2.5 Alkaline [...] Glucose, Serum 108 mg/dL (Abnormal) Range: 65-99 9-Wnv-916038:15 LIPID PANEL (13129) Comments: PATIENT WAS FASTINGPERFORMED BY: [employer]6370 [facility] [id number] LDL/HDL Ratio 1.8 {ratio_units} (Normal) Range: 0.0-3.6 HDL Cholesterol 49 mg/dL (Normal) Comments: According to ATP-III Guidelines, HDL-C >59 mg/dL is considered anegative risk factor for CHD. LDL Cholesterol Calc 86 mg/dL (Normal) Range: 0-99 VLDL Cholesterol Ezequiel 25 mg/dL (Normal) Range: 5-40 Cholesterol, Total 160 mg/dL (Normal) Range: 100-199 Triglycerides 123 mg/dL (Normal) Range: 0-149 5-Wrv-890513:15 CBC WITH MANUAL DIFF Comments: PATIENT WAS FASTINGPERFORMED BY: Agrivi70 [facility] [id number] Information: [id number] (90280) Immature Grans (Abs) 0.0 {x10E3/uL} (Normal) Range: [...] (Normal) Range: 4.0-10.5 :53 HgA1C , Office (80793) HgA1C , Office 6.3 % (Normal) Range: 4.6 - 7.1 :53 Blood Glucose , Office (13908) Blood Glucose , Office 123 (Normal) :51 HgA1C , Office (90218) HgA1C , Office 6.2 % (Normal) Range: 4.6 - 7.1 :51 Blood Glucose , Office (11620) Blood Glucose , Office 93 (Normal) 83-Ujd-710293:01 Microscopic Examination Comments: PATIENT WAS FASTINGPERFORMED BY: LabCoNewton Medical CenterGktqiq9196 [facility] [id number] Bacteria Few (Normal) Mucus Threads Present (Normal) Epithelial Cells (non renal) None seen {/hpf} (Normal) Range: 0 - 10 RBC 0-3 {/hpf} (Normal) Range: 0 - 3 WBC 0-5 {/hpf} (Normal) Range: 0 - 5 13-Smg-193664: PSA (PROSTATE SPECIFIC Comments: PATIENT WAS FASTINGPERFORMED BY: [employer] [facility] [id number] ANTIGEN) (V76.44) Prostate Specific Ag, 1.4 ng/mL (Normal) Range: 0.0-4.0 Serum Comments: YoucruitIA methodology..According to the [place] U[employer] Association, Serum PSA shoulddecrease and remain at undetectable levels after radicalprostatectomy. The AUA defines biochemical recurrence a s an initialPSA value 0.2 ng/mL or greater followed by a subsequent confirmatoryPSA value 0.2 ng/mL or greater.Values obtained with different assay methods or kits cannot be usedinterchangeably. Results cannot be interpreted as absolute evidenceof the presence or absence of malignant disease. : TSH (28622) Comments: PATIENT WAS FASTINGPERFORMED BY: Agrivi70 [facility] [id number] TSH 3.670 {uIU/mL} (Normal) Range: 0.450-4.500 95-Ujz-101361: URINALYSIS, W/ MICRO (53987) Comments: PATIENT WAS FASTINGPERFORMED BY: [employer]6370 [facility] [id number] Microscopic Examination See below: (Normal) Bilirubin Negative (Normal) Microscopic Examination MICRON (Normal) Comments: Microscopic follows if indicated. Nitrite, Urine Negative (Normal) Urobilinogen,Semi-Qn 0.2 mg/dL (Normal) Range: 0.0-1.9 Glucose Negative (Normal) Ketones Negative (Normal) Occult Blood Negative (Normal) Protein Negative (Normal) WBC Esterase Negative (Normal) Appearance Clear (Normal) pH 6.0 (Normal) Range: 5.0-7.5 Specific [place] 1.024 (Normal) Range: 1.005-1.030 Urine-Color Yellow (Normal) 95-Nxc-608636: MICROALBUMIN: CREATININE RATIO Comments: PATIENT WAS FASTINGPERFORMED BY: Agrivi70 [facility] [id number] ([id number]) AND (73989) Microalb/Creat Ratio <.4 {mg/g_creat} (Normal) Range: 0.0-30.0 Microalbumin, Urine <1.0 ug/mL (Normal) Range: 0.0-17.0 Creatinine, Urine 226.9 mg/dL (Normal) Range: 22.0-328.0 25-Edw-747927:01 METABOLIC PANEL, COMPREHENSIVE Comments: PATIENT WAS FASTINGPERFORMED BY: LabTr[facility]6370 [facility] [id number] (88744) A/G Ratio 2.0 (Normal) Range: 1.1-2.5 Alkaline [...] Glucose, Serum 93 mg/dL (Normal) Range: 65-99 23-Yal-716159:01 LIPID PANEL (07990) Comments: PATIENT WAS FASTINGPERFORMED BY: [facility] VitaNewton Medical CenterYcuvjg9564 [facility] [id number] HDL Cholesterol 46 mg/dL (Normal) Comments: According to ATP-III Guidelines, HDL-C >59 mg/dL is considered anegative risk factor for CHD. LDL Cholesterol Calc 70 mg/dL (Normal) Range: 0-99 LDL/HDL Ratio 1.5 {ratio_units} (Normal) Range: 0.0-3.6 VLDL Cholesterol Ezequiel 18 mg/dL (Normal) Range: 5-40 Cholesterol, Total 134 mg/dL (Normal) Range: 100-199 Triglycerides 89 mg/dL (Normal) Range: 0-149 29-Vxt-545434:01 CBC WITH MANUAL DIFF Comments: PATIENT WAS FASTINGPERFORMED BY: LabCoNewton Medical CenterVgqncx9052 [facility] [id number] Information: [id number] (85811) Baso (Absolute) 0.0 {x10E3/uL} (Normal) Range: 0.0-0.2 [...] (Normal) Range: 4.0-10.5 :59 HgA1C , Office (88260) HgA1C , Office 6.6 % (Normal) Range: 4.6 - 7.1 :59 Blood Glucose , Office (88783) Blood Glucose , Office 105 (Normal) :29 HgA1C , Office (17296) Comments: done km HgA1C , Office 7.2 % (Abnormal) Range: 4.6 - 7.1 :29 Blood Glucose , Office (71903) Comments: done Blood Glucose , Office 134 (Normal) :04 HgA1C , Office (86963) Comments: done km HgA1C , Office 6.7 % (Normal) Range: 4.6 - 7.1 :04 Blood Glucose , Office (62084) Comments: done Blood Glucose , Office 141 (Normal) :27 TSH (70442) Comments: PATIENT WAS FASTINGPERFORMED BY: [facility] la VitaNewton Medical CenterJdrkhb0272 [facility] [id number] TSH 3.740 {uIU/mL} (Normal) Range: 0.450-4.500 :27 METABOLIC PANEL, COMPREHENSIVE Comments: PATIENT WAS FASTINGPERFORMED BY: IDMissionNewton Medical CenterExezdu6165 [facility] [id number] (25042) A/G Ratio 1.7 (Normal) Range: 1.1-2.5 Albumin, [...] Range: 135-145 25-Oct-20089:27 LIPOPROTEIN, BLD, BY NMR (05316) Comments: PATIENT WAS FASTINGClinical Information: ADD [id number], [id number] PERFORMED BY: [facility]6370 [facility] [id number] Cholesterol, Total 149 mg/dL (Normal) HDL-C 41 [...] mg/dL (Normal) 25-Oct-20089:27 CBC WITH MANUAL DIFF (68382) Comments: PATIENT WAS FASTINGPERFORMED BY: LabCoNewton Medical CenterAjdynj3726 [facility] [id number] Baso (Absolute) 0.0 {x10E3/uL} (Normal) Range: 0.0-0.2 [...] (Normal) Range: 4.0-10.5 :55 HgA1C , Office (38417) Comments: done km HgA1C , Office 5.9 % (Normal) Range: 4.6 - 7.1 :55 Blood Glucose , Office (68511) Comments: done km Blood Glucose , Office 115 (Normal) 78-Nne-155358:10 TSH (14232) Comments: REpeat first week in September; PATIENT NOT FASTINGClinical Information: ADD DRAW FEE [id number] ADD J [id number] PERFORMED BY: IDMissionNewton Medical CenterEmwfip1499 [facility] [id number] TSH 3.800 {uIU/mL} (Normal) Range: 0.450-4.500 72-Tdm-464143:48 TSH (94531) Comments: PATIENT WAS FASTINGPERFORMED BY: [employer] Kpahpy8165 [facility] [id number] TSH 4.538 {uIU/mL} (Abnormal) Range: 0.450-4.500 48-Zwa-518168:48 MICROALBUMIN: CREATININE RATIO Comments: PATIENT WAS FASTINGPERFORMED BY: [facility] VitaNewton Medical CenterDfvhdm26[address] [place] [address] [id number] (27500) AND (45405) Creatinine, Urine 370.1 mg/dL (Abnormal) Range: 22.0-328.0 Microalb/Creat Ratio 1.0 {ug/mg_creat} (Normal) Range: 0.0-30.0 Microalbumin, Urine 3.7 ug/mL (Normal) Range: 0.0-17.0 54-Yvm-081496:48 METABOLIC PANEL, COMPREHENSIVE Comments: PATIENT WAS FASTINGPERFORMED BY: [facility] VitaDavid Ville 6396970 [facility] [id number] (64141) A/G Ratio 1.6 (Normal) Range: 1.1-2.5 Albumin, [...] Sodium, Serum 140 mmol/L (Normal) Range: 135-145 39-Wnj-732886:48 CBC WITH MANUAL DIFF (44084) Comments: PATIENT WAS FASTINGClinical Information: ADD DRAW FEE [id number] ADD J [id number] PERFORMED BY: LabJennifer Ville 6503170 [facility] [id number] Baso (Absolute) 0.0 {x10E3/uL} (Normal) Range: 0.0-0.2 [...] {x10E3/uL} (Normal) Range: 4.0-10.5 :48 LIPID PANEL (53769) Comments: PATIENT WAS FASTINGPERFORMED BY: [facility]6370 [facility] [id number] Cholesterol, Total 171 mg/dL (Normal) Range: 100-199 HDL Cholesterol 45 mg/dL (Normal) Comments: According to ATP-III Guidelines, HDL-C >59 mg/dL is considered anegative risk factor for CHD. LDL Cholesterol Calc 99 mg/dL (Normal) Range: 0-99 LDL/HDL Ratio 2.2 {ratio_units} (Normal) Range: 0.0-3.6 Triglycerides 133 mg/dL (Normal) Range: 0-149 VLDL Cholesterol Ezequiel 27 mg/dL (Normal) Range: 5-40 67-Jyx-005989:24 HgA1C , Office (08273) Comments: done km HgA1C , Office 6.5 % (Normal) Range: 4.6 - 7.1 :24 Blood Glucose , Office (23573) Comments: done Blood Glucose , Office 113 (Normal) :38 HgA1C , Office (61354) Comments: done sylvain HgA1C , Office 6.0 % (Normal) Range: 4.6 - 7.1 :38 Blood Glucose , Office (84295) Comments: done Blood Glucose , Office 132 (Normal) :09 PSA,TOT SCREEN 1.30 ng/mL (Normal) Range: 0.00-4.00 Comments: This test was performed using the TPSA method for thePolymita Technologies chemistry system.Values obtained with different assay methods cannot be usedinterchangably.When changing PSA assays in the course of monito ring apatient, additional sequential testing should be carriedout to confirm baseline values. :00 HgA1C , Office (96280) Comments: done sylvain HgA1C , Office 7.4 % (Abnormal) Range: 4.6 - 7.1 :00 Blood Glucose , Office (71092) Comments: done Blood Glucose , Office 138 (Normal) :32 MYOCARD PERF SPECT REST/STRESS Radiology Report See Note (Normal) Comments: Exam Number: [id number] MYOCARDIAL PERFUSION SCAN TECHNIQUEThe patient was injected [...] of 60%. Reported By: LOUIS CASTILLO M.D. 45-Iqu-911029:27 URINALYSIS W/O MICRO (86384) Comments: PATIENT WAS FASTINGPERFORMED BY: Agrivi70 [employer] [facility] HospitalSocial CollectiveECU [facility] [id number] Appearance Clear (Normal) Bilirubin Negative (Normal) Glucose Negative (Normal) Ketones Negative (Normal) Microscopic Examination MICRON (Normal) Comments: Microscopic follows if indicated. Nitrite, Urine Negative (Normal) Occult Blood Negative (Normal) pH 7.5 (Normal) Range: 5.0-7.5 Protein Trace (Normal) Specific [place] 1.023 (Normal) Range: 1.005-1.030 Urine-Color Yellow (Normal) Urobilinogen,Semi-Qn 0.2 mg/dL (Normal) Range: 0.0-1.9 WBC Esterase Negative (Normal) 73-Llv-618686:27 TSH (86730) Comments: PATIENT WAS FASTINGPERFORMED BY: [employer]6370 [facility] [id number] TSH 3.505 {uIU/mL} (Normal) Range: 0.350-5.500 Comments: Adult TSH concentrations below 5.5 uIU/mL do not rule out the presence of subclinical hypothyroidism. :27 MICROALBUMIN URINE QUANT Comments: PATIENT WAS FASTINGPERFORMED BY: [facility]6370 [facility] [id number] (26725) Microalbum.,U,Random 4.4 ug/mL (Normal) Range: 0.0-17.0 :27 METABOLIC PANEL, COMPREHENSIVE Comments: PATIENT WAS FASTINGPERFORMED BY: LabTr[facility]6370 [facility] [id number] (30329) A/G Ratio 1.8 (Normal) Range: 1.1-2.5 Albumin, [...] Serum 132 mg/dL (Abnormal) Range: 65-99 If -Niuean >60 mL/min (Normal) Range: 60-137 Comments: Note: [...] Range: 135-145 :27 CBC WITH MANUAL DIFF (01466) Comments: PATIENT WAS FASTINGClinical Information: ADD [id number], ADD [id number] PERFORMED BY: Agrivi70 [facility] [id number] Baso (Absolute) 0.0 {x10E3/uL} (Normal) Range: 0.0-0.2 [...] 11.7-15.0 WBC 5.5 {x10E3/uL} (Normal) Range: 4.0-10.5 13-Maw-193754:27 LIPID PANEL (21318) Comments: PATIENT WAS FASTINGPERFORMED BY: [employer] Jnwydc4406 [facility] [id number] LDL/HDL Ratio 2.4 {ratio_units} (Normal) Range: 0.0-3.6 Cholesterol, Total 212 mg/dL (Abnormal) Range: 100-199 Comment SPRCS (Normal) Comments: If initial LDL-cholesterol result is >100 mg/dL, assess forrisk factors. HDL Cholesterol 52 mg/dL (Normal) Range: 40-59 LDL Cholesterol Calc 123 mg/dL (Abnormal) Range: 0-99 Triglycerides 184 mg/dL (Abnormal) Range: 0-149 VLDL Cholesterol Ezequiel 37 mg/dL (Normal) Range: 5-40 :28 HgA1C , Office (77713) Comments: done HgA1C , Office 6.9 % (Normal) Range: 4.6 - 7.1 :28 Blood Glucose , Office (08488) Comments: done Blood Glucose , Office 157 (Normal) :58 HgA1C , Office (80797) Comments: done HgA1C , Office 6.6 % (Normal) Range: 4.6 - 7.1 :58 Blood Glucose , Office (10328) Comments: done Blood Glucose , Office 136 [...] was performed using the TPSA method for thePolymita Technologies chemistry system.Values obtained with different assay methods cannot be usedinterchangably.When changing PSA assays in the course of monito ring apatient, additionaly sequential testing should be carriedout to confirm baseline values. :29 TSH 3.67 {uIU/mL} (Normal) Range: 0.34-4.82 :39 Blood Glucose , Office (49295) Comments: done km Blood Glucose , Office 98 (Normal) :39 HgA1C , Office (24360) Comments: done km HgA1C , Office 6.5 % (Normal) Range: 4.6 - 7.1 :57 HgA1C , Office (04818) HgA1C , Office 6.5 % (Normal) Range: 4.6 - 7.1 8-Mch-610738:57 Blood Glucose , Office (42391) Blood Glucose , Office 138 (Normal) :03 HgA1C , Office (47706) HgA1C , Office 6.6 % (Normal) Range: 4.6 - 7.1 1-Vyc-212157:03 Blood Glucose , Office (98161) Blood Glucose , Office 92 (Normal) 08-Rqg-820723:28 LIVER ALB 3.6 g/dL (Normal) Range: 3.4-5.0 ALK P 96 U/L (Normal) Range: 50-136 ALT 47 [iU]/L (Normal) Range: 30-65 AST 20 U/L (Normal) Range: 15-37 D BILI 0.08 mg/dL (Normal) Range: 0.00-0.30 T BILI 0.44 mg/dL (Normal) Range: 0.00-1.00 T PROT 6.9 g/dL (Normal) Range: 6.4-8.2 07-Vlh-331574:28 MICROALB:CRE UR MALB:CREAT 8.4 {mg/g_CRE} (Normal) MICROALBUMIN,UR 11.6 mg/L (Normal) UR CREAT 138.8 mg/dL (Normal) 16-Ail-587973:28 PFLIP CHOL 188 mg/dL (Normal) Comments: <200 [...] Plan of Care Name Dates Details Instructions Controlled diabetes mellitus type II without complication [...] 1 month- gen med / will need [facility] Indication: Physical exam WITHOUT abnormal findings (Renamed [...] from H/O transient cerebral ischemia) : 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 Indication: History of transient cerebral ischemia (Renamed from H/O transient cerebral ischemia) Hypertensive urgency : 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 Indication: Hypertensive urgency Heart disease, [...] Current Prescription(s) Indication: Hypothyroidism Hypothyroidism : 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 Indication: Hypothyroidism Uncontrolled type II [...] from there Planned Observations T4, FREE (THYROXINE) (06833)Indication: Hypothyroidism On: :48 Request T3, FREE (TRIDOTHYRONINE) (30807)Indication: Hypothyroidism On: :48 Request URINALYSIS, W/ MICRO (47523)Indication: Essential hypertension On: :47 Request MICROALBUMIN: CREATININE RATIO (73243) AND (45900)Indication: Essential hypertension On: :47 Request METABOLIC PANEL, COMPREHENSIVE (57686)Indication: Essential hypertension On: :47 Request CBC W/AUTO DIFF WBC (21824)Indication: Essential hypertension On: :47 Request LIPID PANEL (12382)Indication: Hypercholesterolemia On: :47 Request TSH (40612)Indication: Hypothyroidism On: :47 Request CALCIFIDIOL (64929) VIT D 25Indication: Vitamin D deficiency On: :47 Request Influenza A&B Viral Culture (56234)Indication: Flu-like symptoms On: 8-Vld-626548:53 Request POTASSIUM SERUM (44319)Indication: Potassium disorder On: 80-Keq-088894:53 Request CALCIFEDIOL (08043)Indication: Vitamin D deficiency On: 39-Qzg-57859:36 Request TSH (60832)Indication: Hypothyroidism On: 06-Kma-22339:35 Request Lipid Panel (12420)Indication: Hypercholesterolemia On: :34 Request Metabolic Panel, Comprehensive (88710)Indication: Hypercholesterolemia On: 53-Lda-15557:34 Request URINE VMA (34298)Indication: Hypertensive urgency On: 94-Hld-860903:54 Request Catecholamines,24-Hour Urine (59477)Indication: Hypertensive urgency On: 75-Smr-494878:54 Request RENIN (31315)Indication: Hypertensive urgency On: 73-Fjc-342343:54 Request ALDOSTERONE (85528)Indication: Hypertensive urgency On: 38-Nzc-466548:54 Request METANEPHRINES (99394)Indication: Hypertensive urgency On: 10-Ibs-762621:54 Request CBC (Auto) (52972)Indication: Hypertensive urgency On: 06-Mtu-134928:36 Request Metabolic Panel, Basic (35846)Indication: Hypertensive urgency On: 17-Fsm-913631:36 Request TSH (03801)Indication: Hypertensive urgency On: 57-Buv-686319:24 Request CBC WITH MANUAL DIFF (54725)Indication: Hypertensive urgency On: 57-Qxa-337792:24 Request METABOLIC PANEL, COMPREHENSIVE (48823)Indication: Hypertensive urgency On: 10-Zvv-609882:24 Request Troponin I (65856)Indication: Hypertensive urgency On: 26-Vmx-240859:20 Request CPK MB FRACTION (77442)Indication: Hypertensive urgency On: 88-Icp-601493:20 Request CREATINE KINASE TOTAL (09847)Indication: Hypertensive urgency On: 99-Mwr-878189:20 Request TSH (39622)Indication: Hypothyroidism On: 02-Xjb-918369:56 Request HgA1C , Office (10009)Indication: Controlled diabetes mellitus type II without complication On: 44-Huz-66270:56 Request PSA (PROSTATE SPECIFIC ANTIGEN) (V76.44)Indication: Screening for prostate cancer On: 19-Phl-74885:20 Request TSH (20839)Indication: Uncontrolled type II diabetes mellitus On: :19 Request URINALYSIS, W/ MICRO (64897)Indication: Uncontrolled type II diabetes mellitus On: :19 Request MICROALBUMIN: CREATININE RATIO (73437) AND (46137)Indication: Uncontrolled type II diabetes mellitus On: :19 Request METABOLIC PANEL, COMPREHENSIVE (78670)Indication: Uncontrolled type II diabetes mellitus On: :19 Request LIPOPROTEIN, BLD, BY NMR (34071)Indication: Uncontrolled type II diabetes mellitus On: :19 Request LIPID PANEL (05246)Indication: Uncontrolled type II diabetes mellitus On: :19 Request CBC WITH MANUAL DIFF (81117)Indication: Uncontrolled type II diabetes mellitus On: :19 Request LIPOPROTEIN, BLD, BY NMR (25685)Indication: Hypercholesterolemia On: :57 Request LIPID PANEL (60120)Indication: Hypercholesterolemia On: :57 Request Comments: do in 3 months LIPID PANEL (24219)Indication: Controlled diabetes mellitus type II without complication On: :22 Request T3, FREE (TRIDOTHYRONINE) (32062)Indication: Abnormal TSH On: :40 Request T4, FREE (THYROXINE) (66159)Indication: Abnormal TSH On: :40 Request TSH (15074)Indication: Abnormal TSH On: :40 Request Comments: do in 2-3 mo TSH (58964)Indication: Controlled diabetes mellitus type II without complication On: 44-Bgs-702815:29 Request METABOLIC PANEL, COMPREHENSIVE (97412)Indication: Controlled diabetes mellitus type II without complication On: 41-Ujh-701431:29 Request MICROALBUMIN: CREATININE RATIO (21046) AND (32328)Indication: Controlled diabetes mellitus type II without complication On: :29 Request CBC WITH MANUAL DIFF (17915)Indication: Controlled diabetes mellitus type II without complication On: 80-Fwf-726502:29 Request LIPID PANEL (80453)Indication: Controlled diabetes mellitus type II without complication On: 19-Rlz-760855:29 Request PSA (PROSTATE SPECIFIC ANTIGEN) (V76.44)Indication: Uncontrolled type II diabetes mellitus On: :18 Request LIPID PANEL (00982)Indication: Hypercholesterolemia On: 18-Vjx-195487:02 Request HEPATIC FUNCTION PANEL (71249)Indication: Hypercholesterolemia On: 03-Zvr-526416:02 Request TSH (96527) On: :45 Request METABOLIC PANEL, COMPREHENSIVE (65687) On: :44 Request LIPID PANEL (24680) On: :44 Request CBC WITH MANUAL DIFF (06564) On: :44 Request PSA (PROSTATE SPECIFIC ANTIGEN) (96666) On: 0-Zph-483402:17 Request Comments: screening TSH (62982) On: Request URINALYSIS W/O MICRO (56190) On: Request MICROALBUMIN URINE QUANT (33993) On: Request LIPID PANEL (14241) On: Request METABOLIC PANEL, COMPREHENSIVE (53884) On: Request CBC WITH MANUAL DIFF (24224) On: Request MICROALBUMIN: CREATININE RATIO (59266) On: Request AND (85056) METABOLIC PANEL, COMPREHENSIVE (12135) On: Request LIPID PANEL (78182) On: Request CBC WITH MANUAL DIFF (77147) On: Request Planned Procedures PNEUM VAC ADLT/IMUMNOSPR, SBC/INTRM On: 07-Feb-2018 Intent (66635)By: Denisa Macias DO Comments: 0.5 cc given sq lt arm lot [id number] exp 04/21/19 Denisa Macias DO X-RAY OF RIGHT HAND, ONE OR TWO On: 07-Feb-2018 Intent VIEWS (56800)By: Denisa Macias DO Comments: attention to hypothenar area for FB Denisa Macias DO TD VACCINE ADULT (45209)By: Venkata On: 23-Dec-2017 Intent Anne Comments: [id number]/09197.5mlr dltd, IMMLONG Flu Vaccine (Quadrivalent) 76210Hl: On: 28-Nov-2017 Intent Visit, Nurse Comments: Lot #[id number]/Site-L dltd, IMDose prefilled syringegiven by: Genna VARGAS.VIS reviewed and ABN signed X-RAY RIGHT KNEE, 3 VIEWS (21768)By: On: 31-Jul-2017 Intent Denisa Macias DO, DO, Kathleen Radiology - Knee - Right - Weight On: 31-Jul-2017 Intent BearingBy: Denisa Macias DO, DO, Kathleen ELECTROCARDIOGRAM, COMPLETE (ECG) On: 31-Jul-2017 Intent (99042)By: Denisa Macias DO Comments: nsr no acute chg Denisa Macias DO CT - Brain/Head (IV Contrast On: 31-Dec-2016 Intent Needed)By: Denisa Macias DO, DO, Kathleen Echo CompleteBy: Denisa Macias DO On: 31-Dec-2016 Intent Denisa Macias DO [id number]-[id number]-[id number] BEHAVIORAL COUNSELING On: 31-Dec-2016 Intent FOR OBESITY, 15 MINUTES (G0447)By: Denisa Macias DO, DO, Kathleen Flu Vaccine (Quadrivalent) 04533Tw: On: 17-Dec-2016 Intent Denisa Macias DO, DO, Comments: Lot:[id number]:09/09/17Amt:0.5mlRoute:IMSite: L DltdGiven By: YURY Valdez signed Denisa MAGNETIC RESONANCE ANGIOGRAPHY OF On: 24-Sep-2016 Intent CAROTID AND VERTEBRAL VESSELS ([id number])By: Denisa Macias DO, DO, Kathleen ELECTROCARDIOGRAM, COMPLETE (ECG) On: 24-Sep-2016 Intent ([id number])By: Denisa Macias DO Comments: sinus gabby no acute chg- on BB Denisa Macias DO Renal Duplex ScanBy: Colleen GARCIA, On: 24-Sep-2016 Intent Denisa Vlaladares DO ELECTROCARDIOGRAM, COMPLETE (ECG) On: 10-Sep-2016 Intent ([id number])By: Denisa Macias DO Comments: sinus gabby no acute chg Denisa Macias DO CT HEAD OR BRAIN WO CONTRAST On: 21-May-2016 Intent ([id number])By: Denisa Macias DO, DO, Kathleen Flu Vaccine (Quadrivalent) [id number]: On: 23-Dec-2015 Intent Emeka Levin Comments: FLUlot: [id number]:08/08site:Lt deltoidroute:IMdose:.5mlDEMICK, MA Echo CompleteBy: Denisa Macias DO On: 24-Oct-[address] SCAN OF CHEST WITH CONTRAST On: 24-Oct-2015 Intent ([id number])By: Denisa Macias DO, DO, Kathleen CT - Chest (IV Contrast Needed)By: On: 20-Jun-2015 Intent Denisa Macias DO, DO, Kathleen Echo CompleteBy: Denisa Macias DO On: 21-Feb-2015 Intent Denisa Macias DO Flu Vaccine (Quadrivalent) [id number]: On: 05-Jan-2015 Intent Denisa Macias DO, DO, Comments: lot [id number]: 09/22/2015site/route L rafa, IMamt 0.5mlVIS and ABN signed when applicableChelsea, CMA4 Denisa ELECTROCARDIOGRAM, COMPLETE (ECG) On: 16-Nov-2014 Intent ([id number])By: Denisa Macias DO Comments: nsr no acute changes - Denisa Macias DO Prevnar 13 ([id number])By: Colleen GARCIA, On: 10-May-2014 Intent Denisa Valladares DO Comments: Lot:[id number]:08/07Dose:0.5mgRoute:imSite:l armGiven By:MIGUEL ÁNGEL signed Inhaler Demonstration ([id number])By: On: 23-Mar-2014 Intent Hayley Stone CNP ADMINISTRATION OF INFLUENZA VIRUS On: 25-Dec-2013 Intent VACCINE (G0008)By: Visit, Nurse Comments: Lot #[id number]-L dltd, IMDose prefilled syringegiven by:YURY Seymour and ABN signed FLU VAC, SPLIT, >3 YEARS, INTRAMUSC On: 25-Dec-2013 Intent ([id number])By: Visit, Nurse EKG ([id number])By: Denisa Macias DO On: 08-Oct-2013 Intent Denisa Macias DO Comments: nsr no acute chg - same as 2012 and last echo 2013 Radiology - PelvisBy: Colleen GARCIA, On: 09-Jul-2013 Intent Denisa Valladares DO Comments: attention R side SI jt Radiology - Hip - RightBy: Colleen On: 09-Jul-2013 Intent Denisa GARCIA DO, Kathleen EMGBy: Denisa Macias DO On: 03-Apr-2013 Intent Denisa GARCIA Comments: lower extremity Nerve ConductionBy: Colleen DO, On: 03-Apr-2013 Intent Denisa Colleen Denisa GARCIA Comments: lower extremity Eprescribed prescriptions ([id number])By: On: 03-Apr-2013 Intent Anne Edge LPN PNEUM VAC ADLT/IMUMNOSPR, SBC/INTRM On: 19-Dec-2012 Intent ([id number])By: Marge Smith Comments: Lot:[id number]:10/25/13Dose:0.5mgRoute:imSite:r armGiven By:MIGUEL ÁNGEL signed ADMINISTRATION OF PNEUMOCOCCAL On: 19-Dec-2012 Intent VACCINE (G0009)By: Marge Smith FLU VAC, SPLIT, >3 YEARS, INTRAMUSC On: 17-Dec-2012 Intent ([id number])By: Anne Edge LPN Comments: Lot:[id number]:6.14Amt:0.5mlRoute:IMSite: L DltdGiven By: YURY Valdez signed Eprescribed prescriptions ([id number])By: On: 17-Dec-2012 Intent Anne Edge LPN Eprescribed prescriptions ([id number])By: On: 15-Sep-2012 Intent Anne Edge LPN Renal Artery DopplerBy: Collene DO, On: 08-Aug-2012 Intent Denisa Valladares DO MRI - BrainBy: Colleen DODenisa On: 04-Aug-[address] - Brain/HeadBy: Colleen DO, On: 04-Aug-2012 Intent Denisa Colleen DODenisa Echo CompleteBy: Colleen DO Denisa On: 04-Aug-2012 Intent Colleen DODenisa Carotid DopplerBy: Colleen DO, On: 04-Aug-2012 Intent Denisa Colleen DODenisa EKG ([id number])By: ColleenDenisa pratt DO On: 28-Jul-2012 Intent Denisa Macias DO Comments: nsr no acute changes Echo CompleteBy: Colleen DOInesDenisa On: 21-Mar-2012 Intent Colleen DODenisa Echo CompleteBy: Colleen DO Denisa On: 19-Mar-2012 Intent Denisa Macias DO Eprescribed prescriptions ([id number])By: On: 13-Mar-2012 Intent Anne Edge LPN Eprescribed prescriptions ([id number])By: On: 31-Dec-2011 Intent Denisa Macias DO, DO, Kathleen Nuclear Medicine - HIDA w/CPKBy: On: 19-Dec-2011 Intent Ciesa TACK WELDER, Supriya EKG ([id number])By: Denisa Macias DO On: 13-Dec-2011 Intent Denisa Macias DO Comments: nsr no acute chg Ultrasound - GallbladderBy: Colleen On: 29-Nov-2011 Intent Denisa GARCIA DO, Kathleen Eprescribed prescriptions ([id number])By: On: 29-Nov-2011 Intent Anne Edge LPN FLU VAC, SPLIT, >3 YEARS, INTRAMUSC On: 27-Nov-2011 Intent ([id number])By: Marissa Palomino LPN Comments: Lot #[id number]/30/13Site-left deltoidgiven by: Todd Palomino LPN ADMINISTRATION OF INFLUENZA VIRUS On: 27-Nov-2011 Intent VACCINE (G0008)By: Marissa Palomino LPN MRI - Lumbar Spine (IV Contrast On: 26-Jan-2011 Intent Needed)By: Denisa Macias DO, DO, Kathleen EKG ([id number])By: Denisa Macias DO On: 05-Jan-2011 Intent Denisa Macias DO Comments: nsr no acute chg Cartoid DopplerBy: Colleen GARCIA, On: 05-Jan-2011 Intent Denisa Valladares DO EKG ([id number])By: Denisa Macias DO On: 06-Dec-2010 Intent Denisa Macias DO Comments: nsr no acute chgn- Bio Z ([id number])By: Denisa Macias DO On: 06-Dec-2010 Intent Denisa Macias DO Comments: stabel parameters- no chg in rx IMMUNIZ ADMNIN, 1 VAC, SNGL/COMBO On: 06-Dec-2010 Intent ([id number])By: Denisa Macias DO, DO, Kathleen FLU VAC, SPLIT, >3 YEARS, INTRAMUSC On: 06-Dec-2010 Intent ([id number])By: Denisa Macias DO, DO, Kathleen TDAP VACCINE >7 IM ([id number])By: Colleen On: 30-Aug-2010 Denisa Izquierdo DO, DO, Kathleen Comments: Lot #[id number]/25/13Site-left deltoidgiven by: Todd Palomino LPN ADMINISTRATION OF INFLUENZA VIRUS On: 27-Dec-2009 Intent VACCINE (G0008)By: Edilia Vasquez LPN FLU VAC, SPLIT, >3 YEARS, INTRAMUSC On: 27-Dec-2009 Intent ([id number])By: Edilia Vasquez LPN Comments: Lot #[id number] 4PExp-07/03Site-L armDose0.5mlgiven by: EKG ([id number])By: Denisa Macias DO On: 15-Nov-2009 Intent Denisa Macias DO Comments: nsr no acute changes MRI - Shoulder(s) - LeftBy: Colleen On: 11-May-2009 Intent Denisa GARCIA DO, Kathleen Bio Z ([id number])By: Denisa Macias DO On: 25-Oct-2008 Intent Denisa Macias DO Comments: NORMAL SVR AND CO EKG ([id number])By: Denisa Macias DO On: 25-Oct-2008 Intent Denisa Macias DO Comments: NSR NO ACUTE CHANGES Bio Z ([id number])By: Denisa Macias DO On: 04-Jun-2008 Intent Denisa Macias DO Comments: normal IMMUNIZ ADMNIN, 1 VAC, SNGL/COMBO On: 05-Jan-2008 Intent ([id number])By: Denisa Macias DO, DO, Kathleen FLU VAC, SPLIT, >3 YEARS, INTRAMUSC On: 05-Jan-2008 Intent ([id number])By: Denisa Macias DO, DO, Kathleen Bio Z ([id number])By: Denisa Macias DO On: 07-Nov-2007 Intent Denisa Macias DO Comments: normal svr and co Nuclear Stress Test/Stress On: 15-Sep-2007 Intent SPECT/TreadmillBy: Colleen GARCIA, Comments: heart group Denisa Valladares DO Echo CompleteBy: Denisa Macias DO On: 07-Aug-2007 Intent Denisa Macias DO Cartoid DopplerBy: Colleen DO, On: 07-Aug-2007 Intent Denisa Valladares DO EKG ([id number])By: Denisa Macias DO On: 07-Aug-2007 Intent Denias Macias DO Comments: nsr no acute ischemic changes EKG ([id number])By: Denisa Macias DO On: 29-Nov-2006 Intent Denisa [...] acute, right upper quadrant Encounters Annotation/Addendum On: 25-Feb-2018 10:03 Encounter Diagnosis: Injury [...] The patient does have durable power of trial attorney and living will. The patient has [...] social history. Yes the patient did have ([facility] /30wisper 05/25) a mini mental status End: 19-Jan-2015 11:07 [...] The patient does have durable power of trial attorney and living will. The patient has noticed nothing from the geriatic depression scale. Other providers contributing to the patient's care are call center team leader (dr zayas) and other: ([facility], vision test up to date).Encounter Diagnosis: [...] in bathroom. The patient has completed the [facility] preventative measures: PSA testing (2011) and colonoscopy (2011). The patient does have durable power of trial attorney and living will. The patient has noticed nothing from the geriatic depression scale . Other providers contributing to the patient's care are call center team leader (Dr. Antonio) and surgeon (Dr. Negro -- [...] patient needs help with are none. The pat ierobin has driven in past 6 months and [...] criselda toscano does have durable power of trial attorney and living will. The patient has noticed nothing from the geriatic depression scale. Other providers contributing to the patient's care are sustainability officer and other: (planning intern, ENT). Encounter Diagnosis: Type II Diabetes,controlled (250.00), [...] Internal Medicine End: 07-Mar-2006 14:37 Payers MedicareAetna Life Ins/MedicareErnest Stone; joceline guarantor
--- OUTSIDE RECORDS SUMMARY | 2018-06-16 21:51 | XMS RPT_ITS | Continuity of Care Document ---
:1945 External Reference #:[id number] Author Organization [facility] Address [address] [facility] [address] [place] [address] Phone Care Team Providers Name Role Phone Denia Macias DOeen Unavailable Physical Therapy, [facility] Unavailable Herberth Pollock Unavailable Lawrence Church MD Unavailable Baljit Arcos MD Unavailable Dr. Nik hC Unavailable Rivera MAO MD , Jhonathan Zelaya [...] not in neptali anymore so we will pickle pumper ball Status: Active TUBULOVILLOUS ADENOMA, NOS Comments: [...] DO, Kathleen Start : 27-Dec-2016 Active Pen [place] 16 31G X 8 MM Miscellaneous 1 [...] (External Solution) uad (10 %) Inactive Comments:Trillium Kingfisher Levitra 10 MG Oral Tablet 1 Tablet [...] : 15-May-2017 End : 31-Jul-2017 Inactive ASPIRIN BUF(FFIANW-DLQCXH-OSN), 325MG (Oral Tablet) 1 (one) Tablet Daily [...] 2 Views Result: Comments: See Note; NOTES: [facility] Imaging Services [address] [place] [address] Hand 2 Views MR#: [id number] Acct: [id number] Name: YOHANNES CADET Rep #: [id number] : 0 1945 M 72 From: Morales Perla MD PCP: Denisa Macias DO Status: REG CLI Study: Hand 2 Views Date of Exam: 02/07/18 Exam# [id number] Ordering Dr: Denisa Macias DO STUDY: X-RAY [...] Service support , CC: Denisa Macias DO Tree And Shrub Technician: Signed 05-Dec-2016 PT D/C Summary (1) Result: Comments: See Note; NOTES: [facility] Physical Therapy [facility] [address] [place] [address] Fax REHABILITATION SERVICES DISCHAR SUMMARY MR#: [id number] Acct: [id number] Name: YOHANNES CADET Rep #: [id number] : 1945 71 From: Aftab Mendez PT, ATC Referring Dr.: Nik Ch DPM Status: REG RCR Insurance: MEDIC ARE PART A B [employer] Bet[employer] HP - PT D/C Summary It has [...] please feel free to call me at [phone]. Thank you for the referral of this patient. Sincerely, Aftab Mendez, PT, <Electronically signed by Aftab Mendez PT, ATC> 12/05/16 1100 CC: Nik valdes DPM; Denisa Colleen DO [facility] Signed 09-Oct-2016 Inital Evaluation (1) - PT Result: Comments: See Note; NOTES: [facility] Physical Therapy [facility] [address] [place] [address] Fax REHABILITATION SERVICES INITIAL EVALUATION MR#: [id number] Acct: [id number] Name: YOHANNES CADET Rep #: [id number] : 1945 71 From: Aftab Mendez PT, ATC Referring Dr.: Nik Ch DPM Status: REG RCR Insurance: [employer] PART A B [employer] Patient's Visit Information YOHANNES CADET is a [...] to be FAXED BACK to us at [phone] for Medicare purposes. Please let me know if there are questions or concerns regarding this plan of care. Physician Signature: Date: <Electronically signed by Aftab Mendez PT, ATC> 1001 CC: Nik Ch DPM; Denisa Macias DO [facility] Signed For Medicare only, by signing this I certify the plan of care. Physicians Signature Date 21-May-2016 Brain/Head without Contrast Result: Comments: See Note; NOTES: [facility] Imaging Services [address] [place] [address] Verdana 4d Brain/Head without Contrast MR#: [id number] Acct: [id number] Name: YOHANNES CADET Rep #: [id number] : 1945 M 70 From: Sincere Solorio DO PCP: Denisa Macias DO Status: REG CLI Study: Brain/Head without Contrast Date of Exam: 05/21/16 Exam# [id number] Ordering Dr: Denisa Macias DO STUDY: CT [...] at 14:26 EST Tel , Service support [phone], CC: Denisa Macias DO Tree And Shrub Technician: Signed 14-Nov-2015 Echocardiogram Complete Result: Comments: See Note; NOTES: [facility] Cardiovascular Services [address] [place] [address] Echo Complete 11/14/15 1303 MR#: [id number] Acct: [id number] Name: YOHANNES CADET Rep #: [id number] : 1945 70 From: Layo Raymond MD Attending Dr: Denisa Macias DO Status: REG CLI Ordering Dr: Denisa Macias DO Date: 11/14/15 Location: [facility] Sex: M C Admitted: Reason Fo [...] Dictated: 10/24 05/10 1303 Date Transcribed: 11/14/151648 Tree And Shrub Technician: Signed 14-Nov-2015 Chest WITH Contrast Result: Comments: See Note; NOTES: [facility] Imaging Services [address] [place] [address] Verdana 4d Chest WITH Contrast MR#: [id number] Acct: [id number] Name: YOHANNES CADET Rep #: [id number] : 1945 M 70 From: Asia Peres MD PCP: Denisa Macias DO Status: REG CLI Study: Chest WITH Contrast Date of Exam: 11/14/15 Exam# [id number] Ordering Dr: Denisa Macias TUDY: CT CHEST [...] MD at 2:25 EDT , Service support [phone], CC: Denisa Macias DO Tree And Shrub Technician: Signed 24-Oct-2015 ELECTROCARDIOGRAM, COMPLETE (ECG) (72160) Comments: sinus gabby - no acute chg - same as old and on BB Result: [MEASUREMENTS ANALYSIS] Date of Test: 10/24/2015 09:30:26; Heart Rate: 55; RI Interval: 184; QRS: 105; QT Interval: 404; Corrected QT Interval (QTc): 396; P Wave [place]: 26; QRS Wave [place]: 27; T Wave [place] : 34; Blood Pressure: 138/70 [ECG DIAGNOSTIC STATEMENTS] Date of Test: 10/24/2015 09:30:26; Summary: Sinus Bradycardia WITHIN NORMAL LIMITS 29-Sep-2015 Knee 4 or More Views Result: Comments: See Note; NOTES: [facility] Imaging Services [address] [place] [address] Verdana 4d Knee 4 or More Views MR#: [id number] Acct: [id number] Name: YOHANNES CADET Rep #: [id number] : 1945 M 70 From: Tripp Miller MD PCP: Denisa Macias DO Status: REG CLI Study: Knee 4 or More Views Date of Exam: 09/29/15 Exam# [id number] Ordering Dr: Carrol Bautista DO STUDY: X-RAY [...] FACR at 9:18 EDT , Service support [phone], RAD/Knee 4 or More Views IMPRESSION: Moderate arthrosis of the patellofemoral joint Electronically Signed: Tripp Miller MD, FACR at 9:18 EDT , Service support , CC: Carrol Kirkpatrick DO; Denisa Macias DO Tree And Shrub Technician: Signed 27-Oct-2013 PT Discharge Summary Result: Comments: See Note; NOTES: [facility] Physical Therapy [address] [place] [address] Fax REHABILITATION SERVICES DISCHARGE SUMMARY MR#: [id number] Acct: [id number] Name: YOHANNES CADET Rep #: [id number] : 1945 68 From: Baljit Silva Referring : eDnisa Macias DO Status: PRE RCR Eval Date: [...] referral. Baljit Silva, PT T: GI JOB: [id number] <Electronically signed by Baljit pantoja > 10/27/13 0758 CC: Signed 27-Jul-2013 Inital Evaluation - PT Result: Comments: See Note; NOTES: [facility] Physical Therapy [facility] [address] [place] [address]. 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 His goals are to find [...] We discussed with patient possibly using the avbu-xsj-jqyvalf orthotics before he considers fabricated orthotics due to cost. Uzair Silva PT T: GI JOB: [id number] <Electronically signed by Baljit Silva > 07/27/13 1802 CC: Signed For Medicare only, by signing this I c ertify the plan of care. Physicians Signature Date 09-Jul-2013 Hip min 2 Views Result: Comments: See Note; NOTES: [facility] Imaging Services [address] [place] [address] Radiology Report MR#: [id number] Acct: [id number] Name: YOHANNES CADET Rep #: [id number] : 1945 67 From: Jakob Hunt MD PCP: Denisa Macias DO Status: REG CLI Study: Hip min 2 Views Date of Exam: 07/09/13 Exam# [id number] Ordering Dr: Denisa Macias DO STUDY : [...] Jakob Hunt MD at 14:44 EDT Tel [phone], Service support [phone], Fax CC: Denisa Macias DO Tree And Shrub Technician: Signed 09-Jul-2013 Pelvis 1 or 2 Views Result: Comments: See Note; NOTES: [facility] Imaging Services [address] [place] [address] Radiology Report MR#: [id number] Acct: [id number] Name: YOHANNES CADET Rep #: [id number] : 1945 M 67 From: Jakob Hunt MD PCP: Denisa Macias DO Status: REG CLI Study: Pelvis 1 or 2 Views Date of Exam: 07/09/13 Exam# [id number] Ordering Dr: Denisa Macias TUDY: X-RAY - [...] Jakob Hunt MD at 13:32 EDT Tel [phone], Service support [phone], CC: Denisa Macias DO Tree And Shrub Technician: Signed 09-Jul-2013 EKG (91255) Comments: nsr no acute chg - ant leads are old Result: [MEASUREMENTS ANALYSIS] Date of Test: 07/09/2013 08:48:02; Heart Rate: 57; RI Interval: 164; QRS: 106; QT Interval: 408; Corrected QT Interval (QTc): 403; P Wave [place]: 25; QRS Wave [place]: 60; T Wave [place] : 62; Blood Pressure: 138/68 [ECG DIAGNOSTIC STATEMENTS] Date of Test: 07/09/2013 08:48:02; Summary: Sinus Bradycardia - Negative precordial T-waves. WITHIN NORMAL LIMITS Immunization Name Dates Details Influenza (3 years and up) on: 05-Jan-2008 Family History Unknown Family Member Name Dates Details Father Comments: [place]/CVA at 84 Status: Active Social History Name [...] Calculated 2.27 m2 :15 Comments: eye[facility]Dr [facility] 2013hearing -wnl Pulse 57 /min Comments: Pattern: [...] 0.00 cm Results Date Description Value Details 69-Nnh-353558:59 HgA1C , Office (45004) HgA1C , Office 7.2 % (Abnormal) Range: 4.6 - 7.1 73-Xym-152997:59 Blood Glucose , Office (73208) Blood Glucose , Office 128 (Normal) 3-Kir-033956:20 Microscopic Examination Comments: PATIENT WAS FASTINGPERFORMED BY: CMP.LY [address] [id number] BY: [employer] [address] [place] [address] [id number] Bacteria None seen (Normal) Mucus Threads Present (Normal) Epithelial Cells (non renal) None seen {/hpf} (Normal) Range: 0 - 10 RBC None seen {/hpf} (Normal) Range: 0 - 2 WBC 0-5 {/hpf} (Normal) Range: 0 - 5 5-Qbr-077683:20 CALCIFIDIOL (26863) VIT D Comments: PATIENT WAS FASTINGPERFORMED BY: CMP.LY [address] [id number] BY: [employer] Jhgdwt2444 [facility] [id number] 25 Vitamin D, 25-Hydroxy 55.7 ng/mL (Normal) Range: 30.0-100.0 Comments: Vitamin D deficiency has been defined by the [place] ofMedicine and an Endocrine Society practice guideline as alevel of serum 25-OH vitamin D less than 20 ng/mL (1,2).The Endocrine Society went on to further define vitamin Dinsufficiency as a level between 21 and 29 ng/mL (2).1. IOM ([place] of Medicine). 2010. Dietary reference intakes for calcium and D. [place]: The National Academies Press.2. Charles MF, Raissa OCONNELL, Nirmala ALBERT, et al. Evaluation, treatment, and prevention of vitamin D deficiency: an Endocrine Society clinical practice guideline. JCEM. 2010; 96(7):1911-30. 0-Bdj-923202:20 TSH (76881) Comments: PATIENT WAS FASTINGPERFORMED BY: Arrowsight[address] [id number] BY: ClustrixSaint Barnabas Medical CenterQtedyx6612 [facility] [id number] TSH 2.360 {uIU/mL} (Normal) Range: 0.450-4.500 0-Iyg-088533:20 URINALYSIS, W/ MICRO Comments: PATIENT WAS FASTINGPERFORMED BY: [employer] Labbideo.comrp [address] [id number] BY: [employer] Labbideo.comSaint Barnabas Medical CenterSxcvth5862 [facility] [id number] (61168) Microscopic Examination See below: (Normal) Comments: Microscopic was indicated and was performed. Microscopic Examination MICRON (Normal) Comments: Microscopic follows if indicated. Nitrite, Urine Negative (Normal) Urobilinogen,Semi-Qn 0.2 mg/dL (Normal) Range: 0.2-1.0 Bilirubin Negative (Normal) Occult Blood Negative (Normal) Ketones Negative (Normal) Glucose Negative (Normal) Protein Negative (Normal) WBC Esterase Negative (Normal) Appearance Clear (Normal) Urine-Color Yellow (Normal) pH 5.0 (Normal) Range: 5.0-7.5 Specific Robert 1.019 (Normal) Range: 1.005-1.030 3-Zad-866667:20 MICROALBUMIN: CREATININE Comments: PATIENT WAS FASTINGPERFORMED BY: LawDeckRyan [place] [address] [facility] [id number] BY: ClustrixBrian [place] 1527870 [facility] [id number] RATIO (00667) AND (39270) Alb/Creat Ratio <2.4 {mg/g_creat} (Normal) Range: 0.0-30.0 Comments: Normal: 0.0 - 30.0 Albuminuria: 31.0 - 300.0 Clinical albuminuria: >300.0 Albumin, Urine <3.0 ug/mL (Normal) Creatinine, Urine 123.5 mg/dL (Normal) 6-Qok-315278:20 METABOLIC PANEL, Comments: PATIENT WAS FASTINGPERFORMED BY: LawDeck[address] [id number] BY: ClustrixSaint Barnabas Medical CenterGkdboa2993 [facility] [id number] COMPREHENSIVE (26837) ALT (SGPT) 22 [iU]/L (Normal) Range: 0-44 [...] 8-27 Glucose 156 mg/dL (Abnormal) Range: 65-99 7-Olr-777096:20 CBC W/AUTO DIFF WBC Comments: PATIENT WAS FASTINGPERFORMED BY: BN [facility] Maiwpctick6917 [facility] [id number] BY: CB [facility] Tnpwok1981 [facility] [id number] (21819) Immature Grans (Abs) 0.0 {x10E3/uL} (Normal) Range: [...] 4.14-5.80 WBC 5.8 {x10E3/uL} (Normal) Range: 3.4-10.8 9-Fve-760614:20 LIPOPROTEIN, BLD, BY NMR Comments: PATIENT WAS FASTINGPERFORMED BY: BN [facility] Fqtfxppdgq5527 [facility] [id number] BY: CB [facility] Lyhwuh9171 [facility] [id number] (84703) LP-IR Score 66 (Abnormal) Comments: INSULIN RESISTANCE MARKER <--Insulin Sensitive Insulin Resistant--> Percentile in Reference PopulationInsulin Resistance ScoreLP-IR Score Low 25th 50th 75th High <27 27 45 63 >63LP-IR Score is inaccurate if patient is non-fasting. .The LP-IR score is a laboratory developed i [facility] that has beenassociated with insulin resistance [...] 1600 - 2000 Very High > 2000 30-Yvd-447717:40 HgA1C , Office (70616) HgA1C , Office 6.6 % (Normal) Range: 4.6 - 7.1 74-Auk-282436:40 Blood Glucose , Office (11726) Blood Glucose , Office 75 (Normal) 61-Tms-819904:20 COLON BIOPSY (CHOOSE See Note (Normal) Comments: [facility] Qxnvetyobl7781 [facility]. [place], [place], [address] SITE) Comments: Patient: YOHANNES CADET : 1945 (72/M) Acct Num: [id number] Phys: FroydariusMg Unit Num: [id number] Loc: LABSPEC Specimen: [id number] Received: 09/20/171532 Spec Type: C OLON BX TISSUES TISSUES: Rectum, NOS GROSS DESCRIPTION Received in fixative is one container labeled with the patient's name and designated rectal polyp. The specimen predominantly consists of fecal material mixed with possible soares soft tissue, measuring in aggregate 2.5 x 0.6 x0.1 cm. The specimen is totally submitted in one cassette. BIJU:scott 09/23/17 TC: cannot code CPT: 57921 HEADER OPERATION: Colonoscopy with polypectomy PRE-OP DIAGNOSIS: Rectal bleeding TISSUE SUBMITTED: Rectal polyp MICROSCOPIC DESCRIPTION Slides are reviewed. MICROSCOPIC DIAGNOSIS Rectal polyp, polypectomy: Fragments of fecal material. Colonic mucosal tissue is not identified. BIJU:scott 09/24/18 Signed Magdy Purvis 09/24/17 <signature on file> 29-Lom-317507:08 Microscopic Examination Comments: PATIENT WAS FASTINGPERFORMED BY: [employer] Juqeln2083 Rosado RoadDublin [place] [id number] Bacteria None seen (Normal) Mucus Threads Present (Normal) Epithelial Cells (non renal) None seen {/hpf} (Normal) Range: 0 - 10 RBC None seen {/hpf} (Normal) Range: 0 - 2 WBC 0-5 {/hpf} (Normal) Range: 0 - 5 46-Dhs-722716:08 T4, FREE (THYROXINE) (36926) Comments: PATIENT WAS FASTINGPERFORMED BY: Cl[employer] Tzlqgj0344 [address] [facility] HospitalDublin [place] [id number] T4,Free(Direct) 1.27 ng/dL (Normal) Range: 0.82-1.77 :08 T3, FREE (TRIDOTHYRONINE) (73795) Comments: PATIENT WAS FASTINGPERFORMED BY: [employer] Kknixi8070 Rosado RoadDublin [place] [id number] Triiodothyronine,Free,Serum 2.7 pg/mL (Normal) Range: 2.0-4.4 47-Plw-276356:08 CALCIFIDIOL (17321) VIT D 25 Comments: PATIENT WAS FASTINGPERFORMED BY: [facility]Pers[facility] Iujijc7745 Rosado RoadDublin [place] [id number] Vitamin D, 25-Hydroxy 57.4 ng/mL (Normal) Range: 30.0-100.0 Comments: Vitamin D deficiency has been defined by the [place] of[place]icine and an Endocrine Society practice guideline as alevel of serum 25-OH vitamin D less than 20 ng/mL (1,2).The Endocrine Society went on to further define vitamin Dinsufficiency as a level between 21 and 29 ng/mL (2).1. IOM ([place] of Medicine). 2010. Dietary reference intakes for calcium and D. [place]: The National Academies Press.2. Charles MF, Raissa [place], Nirmala ALBERT, et al. Evaluation, treatment, and prevention of vitamin D deficiency: an Endocrine Society clinical practice guideline. JCEM. 2010; 96(7):1911-30. 70-Aeh-519414:08 TSH (87773) Comments: PATIENT WAS FASTINGPERFORMED BY: [facility]6370 [facility] [id number] TSH 3.370 {uIU/mL} (Normal) Range: 0.450-4.500 78-Xxe-746567:08 URINALYSIS, W/ MICRO (38786) Comments: PATIENT WAS FASTINGPERFORMED BY: [facility]6370 [facility] [id number] Microscopic Examination See below: (Normal) Comments: Microscopic was indicated and was performed. Microscopic Examination MICRON (Normal) Comments: Microscopic follows if indicated. Nitrite, Urine Negative (Normal) Urobilinogen,Semi-Qn 0.2 mg/dL (Normal) Range: 0.2-1.0 Bilirubin Negative (Normal) Occult Blood Negative (Normal) Ketones Negative (Normal) Glucose Negative (Normal) Protein Negative (Normal) WBC Esterase Negative (Normal) Appearance Clear (Normal) Urine-Color Yellow (Normal) pH 5.0 (Normal) Range: 5.0-7.5 Specific Robert 1.026 (Normal) Range: 1.005-1.030 08-Ige-515210:08 MICROALBUMIN: CREATININE RATIO Comments: PATIENT WAS FASTINGPERFORMED BY: [facility]ixSur[facility]6370 [facility] [id number] (90945) AND (36619) Alb/Creat Ratio 1.3 {mg/g_creat} (Normal) Range: 0.0-30.0 Albumin, Urine 3.1 ug/mL (Normal) Creatinine, Urine 237.2 mg/dL (Normal) 33-Xkr-429483:08 METABOLIC PANEL, COMPREHENSIVE Comments: PATIENT WAS FASTINGPERFORMED BY: [facility]ixSur[facility] Center6370 [facility] [id number] (57139) ALT (SGPT) 17 [iU]/L (Normal) Range: 0-44 [...] 8-27 Glucose 142 mg/dL (Abnormal) Range: 65-99 42-Kxs-585073:08 CBC W/AUTO DIFF WBC (67863) Comments: PATIENT WAS FASTINGPERFORMED BY: LabCoSaint Barnabas Medical CenterJxelyf0620 [facility] [id number] Immature Grans (Abs) 0.0 {x10E3/uL} (Normal) Range: [...] {x10E3/uL} (Normal) Range: 3.4-10.8 :08 LIPID PANEL (06224) Comments: PATIENT WAS FASTINGPERFORMED BY: LabSurgeons [facility] Center6370 [facility] [id number] LDL/HDL Ratio 1.2 {ratio} (Normal) Range: 0.0-3.6 [...] (Normal) Range: 100-199 :08 HgA1C , Office (93223) HgA1C , Office 6.9 % (Normal) Range: 4.6 - 7.1 :08 Blood Glucose , Office (96842) Blood Glucose , Office 123 (Normal) 0-Clr-759312:23 Blood Glucose , Office (06164) Blood Glucose , Office 69 (Normal) :23 HgA1C , Office (52727) HgA1C , Office 7.1 % (Normal) Range: 4.6 - 7.1 4-Xkd-515038:23 Blood Glucose , Office (70797) Blood Glucose , Office 84 (Normal) 98-Tnv-317342:06 Microscopic Examination Comments: PATIENT WAS FASTINGPERFORMED BY: ClustrixSaint Barnabas Medical CenterRpsfkc4511 [facility] [id number] Bacteria Few (Normal) Mucus Threads Present (Normal) Epithelial Cells (non renal) None seen {/hpf} (Normal) Range: 0 - 10 RBC 0-2 {/hpf} (Normal) Range: 0 - 2 WBC 0-5 {/hpf} (Normal) Range: 0 - 5 8-Oeg-261177:25 Methymalonic Acid, Serum Comments: PATIENT NOT FASTINGPERFORMED BY: Clustrix[address] [id number] BY: Clustrix[address] [id number] (68781) Methylmalonic Acid, Serum 586 nmol/L (Abnormal) Range: 0-378 3-Uky-033715:25 METABOLIC PANEL, Comments: PATIENT NOT FASTINGPERFORMED BY: Clustrix[address] [id number] BY: Clustrix[address] [id number] Inf ormation: [id number], [id number] COMPREHENSIVE (18334) ALT (SGPT) 11 [iU]/L (Normal) Range: 0-44 [...] Glucose, Serum 153 mg/dL (Abnormal) Range: 65-99 4-Ifk-337049:25 CBC (AUTO) (94507) Comments: PATIENT NOT FASTINGPERFORMED BY: [employer] U[address] [place] [address] [id number] BY: Clustrix[address] [id number] Platelets 213 {x10E3/uL} (Normal) Range: 150-379 RDW 14.0 % (Normal) Range: 12.3-15.4 MCHC 33.2 g/dL (Normal) Range: 31.5-35.7 MCH 27.5 pg (Normal) Range: 26.6-33.0 MCV 83 fL (Normal) Range: 79-97 Hematocrit 38.2 % (Normal) Range: 37.5-51.0 Hemoglobin 12.7 g/dL (Normal) Range: 12.6-17.7 RBC 4.62 {x10E6/uL} (Normal) Range: 4.14-5.80 WBC 4.6 {x10E3/uL} (Normal) Range: 3.4-10.8 7-Wgj-858265:25 TSH (03904) Comments: PATIENT NOT FASTINGPERFORMED BY: [employer] [id number] BY: Clustrix[address] [id number] TSH 3.040 {uIU/mL} (Normal) Range: 0.450-4.500 2-Hqj-557854:25 VITAMIN B-12 (CYANOCOBALAMIN) Comments: PATIENT NOT FASTINGPERFORMED BY: CB [facility] Qlyrpw1168 Rosado RoadDublin [place] [id number] BY: LabCo[address] [id number] (75304) Vitamin B12 227 pg/mL (Normal) Range: 211-946 6-Usf-830112:25 PSA (PROSTATE SPECIFIC Comments: PATIENT NOT FASTINGPERFORMED BY: CB [facility] Ugzuud2037 Rosado RoadDublin [place] [id number] BY: LabCo[address] [id number] ANTIGEN) (V76.44) Prostate Specific Ag, 2.0 ng/mL (Normal) Range: 0.0-4.0 Serum Comments: [employer] ECLIA methodology. .According to the [place] [employer], Serum PSA shoulddecrease and remain at undetectable levels after radicalprostatectomy. The AUA defines biochemical recurrence as an initialPSA value 0.2 ng/mL or greater followed by a subsequent confirmatoryPSA value 0.2 ng/mL or greater.Values obtained with d ifferent assay methods or kits cannot be usedinterchangeably. Results cannot be interpreted as absolute evidenceof the presence or absence of malignant disease. 07-Oci-205170:06 CALCIFIDIOL (16395) VIT D 25 Comments: PATIENT WAS FASTINGPERFORMED BY: [facility] Myicjf9[address] [facility] HospitalDublin [place] [id number] Vitamin D, 25-Hydroxy 42.4 ng/mL (Normal) Range: 30.0-100.0 Comments: Vitamin D deficiency has been defined by the [place] ofMedicine and an Endocrine Society practice guideline as alevel of serum 25-OH vitamin D less than 20 ng/mL (1,2).The Endocrine Society went on to further define vitamin Dinsufficiency as a level between 21 and 29 ng/mL (2).1. IOM ([place] of Medicine). 2010. Dietary reference intakes for calcium and D. [place]: The National Academies Press.2. Charles MF, Raissa OCONNELL, Nirmala ALBERT, et al. Evaluation, treatment, and prevention of vitamin D deficiency: an Endocrine Society clinical practice guideline. JCEM. 2010; 96(7):1911-30. :06 TSH (52664) Comments: PATIENT WAS FASTINGPERFORMED BY: [facility]6370 [facility] [id number] TSH 3.460 {uIU/mL} (Normal) Range: 0.450-4.500 39-Gzi-127896:06 URINALYSIS, W/ MICRO (29826) Comments: PATIENT WAS FASTINGPERFORMED BY: [facility]6370 [facility] [id number] Microscopic Examination See below: (Normal) Comments: Microscopic was indicated and was performed. Microscopic Examination MICRON (Normal) Comments: Microscopic follows if indicated. Nitrite, Urine Negative (Normal) Urobilinogen,Semi-Qn 0.2 mg/dL (Normal) Range: 0.2-1.0 Bilirubin Negative (Normal) Occult Blood Negative (Normal) Ketones Negative (Normal) Glucose Negative (Normal) Protein Negative (Normal) WBC Esterase Negative (Normal) Appearance Clear (Normal) Urine-Color Yellow (Normal) pH 5.0 (Normal) Range: 5.0-7.5 Specific Robert 1.020 (Normal) Range: 1.005-1.030 97-Bkx-882130:06 MICROALBUMIN: CREATININE RATIO Comments: PATIENT WAS FASTINGPERFORMED BY: [facility]6[address] [facility] [id number] (22223) AND (97014) Microalb/Creat Ratio <2.4 {mg/g_creat} (Normal) Range: 0.0-30.0 Microalbumin, Urine <3.0 ug/mL (Normal) Creatinine, Urine 127.3 mg/dL (Normal) :06 METABOLIC PANEL, COMPREHENSIVE Comments: PATIENT WAS FASTINGPERFORMED BY: [facility]6[address] [facility] [id number] (80264) ALT (SGPT) 15 [iU]/L (Normal) Range: 0-44 [...] mg/dL (Abnormal) Range: 65-99 :06 LIPID PANEL (06451) Comments: PATIENT WAS FASTINGPERFORMED BY: [facility]Sur[facility]6[address] [facility] [id number] LDL/HDL Ratio 1.5 {ratio_units} (Normal) Range: 0.0-3.6 Comments: LDL/HDL Ratio Men Women 1/2 Avg.Risk 1.0 1.5 Av g.Risk 3.6 3.2 2X Avg.Risk 6.2 5.0 3X Avg.Risk 8.0 6.1 LDL Cholesterol Calc 63 mg/dL (Normal) Range: 0-99 VLDL Cholesterol Ezequiel 25 mg/dL (Normal) Range: 5-40 HDL Cholesterol 42 mg/dL (Normal) Triglycerides 126 mg/dL (Normal) Range: 0-149 Cholesterol, Total 130 mg/dL (Normal) Range: 100-199 22-Upi-494464:06 CBC W/AUTO DIFF WBC (83859) Comments: PATIENT WAS FASTINGPERFORMED BY: LabCoSaint Barnabas Medical CenterUvghib5337 [facility] [id number] Immature Grans (Abs) 0.0 {x10E3/uL} (Normal) Range: [...] (Normal) Range: 3.4-10.8 :32 HgA1C , Office (83161) HgA1C , Office 7.3 % (Abnormal) Range: 4.6 - 7.1 :32 Blood Glucose , Office (38566) Blood Glucose , Office 185 (Normal) :33 ALDOSTERONE (21263) Comments: PATIENT NOT FASTINGPERFORMED BY: [address] [id number] Aldosterone 3.8 ng/dL (Normal) Range: 0.0-30.0 Comments: This test was developed and its performance characteristicsdetermined by [employer]. It has not been cleared or approvedby the Food and Drug Administration. :33 RENIN (41657) Comments: PATIENT NOT FASTINGPERFORMED BY: Pro[facility]ix[address] [id number] Renin Activity, Plasma 0.402 {ng/mL/hr} Range: 0.167-5.380 (Normal) Comments: This test was developed and its performance characteristicsdetermined by [employer]. It has not been cleared or approvedby the Food and Drug Administration. :31 METANEPHRINES - URINE (60427) Comments: PATIENT NOT FASTINGPERFORMED BY: Pro[employer]omix[address] [id number] Metanephrine, U,24hr 238 {ug/24_hr} (Normal) Range: 45-290 Comments: (Hypertensive) >17 years 11 months: 35 - 460 Metanephrine, Ur 119 ug/L (Normal) Normetanephr.,U,24h 370 {ug/24_hr} (Normal) Range: 82-500 Comments: (Hypertensive) >17 years 11 months: 110 - 1050 Normetanephrine, Ur 185 ug/L (Normal) :31 CATECHOLAMINES TOTAL, URINE Comments: PATIENT NOT FASTINGPERFORMED BY: [address] [id number] Information: START 09/25/2016@447AM (20345) Dopamine, Ur, 24hr 280 {ug/24_hr} (Normal) Range: 0-510 Dopamine, Urine 140 ug/L (Normal) Norepinephrine,U,24h 42 {ug/24_hr} (Normal) Range: 0-135 Norepinephrine, Ur 21 ug/L (Normal) Epinephrine, U, 24hr 4 {ug/24_hr} (Normal) Range: 0-20 Epinephrine, Urine 2 ug/L (Normal) :31 URINE VMA (99947) Comments: PATIENT NOT FASTINGPERFORMED BY: PARUL [place] [address]50[address] [facility] [id number] VMA, Urine, 24hr 3.4 {mg/24_hr} (Normal) Range: 0.0-7.5 Comments: This test was developed and its performance characteristicsdetermined by [facility]. It has not been cleared or approvedby the Food and Drug Administration. VMA, Urine 1.7 mg/L (Normal) 85-Iie-502564:05 Microscopic Examination Comments: PATIENT WAS FASTINGPERFORMED BY: GUICHO [facility] Zzbqlp6439 [facility] [id number] Bacteria None seen (Normal) Mucus Threads Present (Normal) Epithelial Cells (non renal) None seen {/hpf} (Normal) Range: 0 - 10 RBC 0-2 {/hpf} (Normal) Range: 0 - 2 WBC 0-5 {/hpf} (Normal) Range: 0 - 5 52-Ale-515361:05 LIPID PANEL (68758) Comments: PATIENT WAS FASTINGPERFORMED BY: GUICHO [facility] Araikr0149 [facility] [id number] LDL/HDL Ratio 1.3 {ratio_units} (Normal) Range: 0.0-3.6 Comments: LDL/HDL Ratio Men Women 1/2 Avg.Risk 1.0 1.5 Av g.Risk 3.6 3.2 2X Avg.Risk 6.2 5.0 3X Avg.Risk 8.0 6.1 LDL Cholesterol Calc 61 mg/dL (Normal) Range: 0-99 VLDL Cholesterol Ezequiel 19 mg/dL (Normal) Range: 5-40 HDL Cholesterol 47 mg/dL (Normal) Triglycerides 94 mg/dL (Normal) Range: 0-149 Cholesterol, Total 127 mg/dL (Normal) Range: 100-199 55-Lld-419156:05 URINALYSIS, W/ MICRO (96746) Comments: PATIENT WAS FASTINGPERFORMED BY: [facility]6[address] [facility] [id number] Microscopic Examination See below: (Normal) Comments: Microscopic was indicated and was performed. Microscopic Examination MICRON (Normal) Comments: Microscopic follows if indicated. Nitrite, Urine Negative (Normal) Urobilinogen,Semi-Qn 0.2 mg/dL (Normal) Range: 0.2-1.0 Bilirubin Negative (Normal) Occult Blood Negative (Normal) Ketones Negative (Normal) Glucose Negative (Normal) Protein Negative (Normal) WBC Esterase Negative (Normal) Appearance Clear (Normal) Urine-Color Yellow (Normal) pH 5.5 (Normal) Range: 5.0-7.5 Specific Robert 1.024 (Normal) Range: 1.005-1.030 41-Sdp-516093:05 MICROALBUMIN: CREATININE RATIO Comments: PATIENT WAS FASTINGPERFORMED BY: [employer] [employer] [facility] [id number] (16938) AND (66196) Microalb/Creat Ratio <1.7 {mg/g_creat} (Normal) Range: 0.0-30.0 Microalbumin, Urine <3.0 ug/mL (Normal) Creatinine, Urine 171.8 mg/dL (Normal) 15-Cgt-493042:05 METABOLIC PANEL, COMPREHENSIVE Comments: PATIENT WAS FASTINGPERFORMED BY: [facility] [id number] (46730) ALT (SGPT) 15 [iU]/L (Normal) Range: 0-44 [...] Glucose, Serum 117 mg/dL (Abnormal) Range: 65-99 10-Ifq-957435:05 CBC W/AUTO DIFF WBC (73641) Comments: PATIENT WAS FASTINGPERFORMED BY: LabCoSaint Barnabas Medical CenterMedcok2725 [facility] [id number] Immature Grans (Abs) 0.0 {x10E3/uL} (Normal) Range: [...] 4.9 {x10E3/uL} (Normal) Range: 3.4-10.8 :05 TSH (11317) Comments: PATIENT WAS FASTINGPERFORMED BY: [facility] Zzqweg5197 [address] RoadDublin [place] [id number] TSH 3.460 {uIU/mL} (Normal) Range: 0.450-4.500 :05 T4, FREE (THYROXINE) (03029) Comments: PATIENT WAS FASTINGPERFORMED BY: [facility] Eehffl2466 [address]ado RoadDublin [place] [id number] T4,Free(Direct) 1.34 ng/dL (Normal) Range: 0.82-1.77 :05 T3, FREE (TRIDOTHYRONINE) (31893) Comments: PATIENT WAS FASTINGPERFORMED BY: [facility] Leuswp4454 [address] RoadDublin [place] [id number] Triiodothyronine,Free,Serum 3.0 pg/mL (Normal) Range: 2.0-4.4 :05 CALCIFIDIOL (00224) VIT D 25 Comments: PATIENT WAS FASTINGPERFORMED BY: [facility] Wflcsi2699 [address] RoadDublin [place] [id number] Vitamin D, 25-Hydroxy 46.6 ng/mL (Normal) Range: 30.0-100.0 Comments: Vitamin D deficiency has been defined by the [place] ofMedicine and an Endocrine Society practice guideline as alevel of serum 25-OH vitamin D less than 20 ng/mL (1,2).The Endocrine Society went on to further define vitamin Dinsufficiency as a level between 21 and 29 ng/mL (2).1. IOM ([place] of Medicine). 2010. Dietary reference intakes for calcium and D. [place]: The National Academies Press.2. Charles MF, Raissa NC, Nirmala ALBERT, et al. Evaluation, treatment, and prevention of vitamin D deficiency: an Endocrine Society clinical practice guideline. JCEM. 2010; 96(7):1911-30. :42 HgA1C , Office (96570) HgA1C , Office 6.6 % (Normal) Range: 4.6 - 7.1 :42 Blood Glucose , Office (66747) Blood Glucose , Office 117 (Normal) :59 HgA1C , Office (41554) HgA1C , Office 6.8 % (Normal) Range: 4.6 - 7.1 :59 Blood Glucose , Office (15532) Blood Glucose , Office 237 (Normal) :52 Rapid Flu (03170 x 2) Influenza A Ag neg (Normal) :19 HgA1C , Office (89572) HgA1C , Office 6.6 % (Normal) Range: 4.6 - 7.1 :19 Blood Glucose , Office (02765) Blood Glucose , Office 171 (Normal) :43 Microscopic Examination Comments: PATIENT WAS FASTINGPERFORMED BY: [facility] [id number] Bacteria Few (Normal) Mucus Threads Present (Normal) Epithelial Cells (non renal) 0-10 {/hpf} (Normal) Range: 0 - 10 RBC 0-2 {/hpf} (Normal) Range: 0 - 2 WBC 0-5 {/hpf} (Normal) Range: 0 - 5 :53 Serum Creatinine AND GFR Comments: [facility] [address] [place], [place], [id number] EST GFR - AA 83 mL/min (Normal) Comments: GFR Calc EST GFR 69 mL/min (Normal) Comments: Non- GFR Calc CREAT,SERUM 1.12 mg/dL (Normal) Range: 0.70-1.30 Comments: The validity of the calculated GFR AND GFRAA in patients over70 years has not been determined. Clinical correlation isessential. :43 CALCIFIDIOL (14379) VIT D 25 Comments: PATIENT WAS FASTINGPERFORMED BY: [employer] [address] [facility] [id number] Vitamin D, 25-Hydroxy 55.4 ng/mL (Normal) Range: 30.0-100.0 Comments: Vitamin D deficiency has been defined by the [place] ofMedicine and an Endocrine Society practice guideline as alevel of serum 25-OH vitamin D less than 20 ng/mL (1,2).The Endocrine Society went on to further define vitamin Dinsufficiency as a level between 21 and 29 ng/mL (2).1. IOM ([place] of Medicine). 2010. Dietary reference intakes for calcium and D. [place]: The National Academies Press.2. Charles MF, Raissa OCONNELL, Nirmala ALBERT, et al. Evaluation, treatment, and prevention of vitamin D deficiency: an Endocrine Society clinical practice guideline. JCEM. 2010; 96(7):1911-30. :43 URINALYSIS, W/ MICRO (04060) Comments: PATIENT WAS FASTINGPERFORMED BY: [employer] [place] [id number] Microscopic Examination See below: (Normal) Comments: Microscopic was indicated and was performed. Microscopic Examination MICRON (Normal) Comments: Microscopic follows if indicated. Nitrite, Urine Negative (Normal) Urobilinogen,Semi-Qn 0.2 mg/dL (Normal) Range: 0.2-1.0 Bilirubin Negative (Normal) Occult Blood Negative (Normal) Ketones Negative (Normal) Glucose Negative (Normal) Protein Negative (Normal) WBC Esterase Negative (Normal) Appearance Clear (Normal) Urine-Color Yellow (Normal) pH 5.5 (Normal) Range: 5.0-7.5 Specific Robert 1.022 (Normal) Range: 1.005-1.030 :43 MICROALBUMIN: CREATININE RATIO Comments: PATIENT WAS FASTINGPERFORMED BY: [employer] [place] [id number] (15868) AND (84528) Microalb/Creat Ratio <2.4 {mg/g_creat} (Normal) Range: 0.0-30.0 Microalbumin, Urine <3.0 ug/mL (Normal) Creatinine, Urine 122.5 mg/dL (Normal) :43 METABOLIC PANEL, COMPREHENSIVE Comments: PATIENT WAS FASTINGPERFORMED BY: ClustrixLea Regional Medical CenterReuisw3572 [facility] [id number] (22402) ALT (SGPT) 12 [iU]/L (Normal) Range: 0-44 [...] Glucose, Serum 120 mg/dL (Abnormal) Range: 65-99 1-Htk-755959:43 TSH (39540) Comments: PATIENT WAS FASTINGPERFORMED BY: ClustrixLea Regional Medical CenterSsuhci4052 [facility] [id number] TSH 4.010 {uIU/mL} (Normal) Range: 0.450-4.500 3-Lpn-007949:43 LIPID PANEL (95325) Comments: PATIENT WAS FASTINGPERFORMED BY: ClustrixLea Regional Medical CenterNkogcc1557 [facility] [id number] LDL/HDL Ratio 1.2 {ratio_units} (Normal) Range: 0.0-3.6 [...] Cholesterol, Total 117 mg/dL (Normal) Range: 100-199 8-Khb-436836:43 CBC W/AUTO DIFF WBC (87472) Comments: PATIENT WAS FASTINGPERFORMED BY: [facility] Znjmxd0766 [facility] [id number] Immature Grans (Abs) 0.0 {x10E3/uL} (Normal) Range: [...] (Normal) Range: 3.4-10.8 :27 HgA1C , Office (87222) HgA1C , Office 6.6 % (Normal) Range: 4.6 - 7.1 :27 Blood Glucose , Office (54506) Blood Glucose , Office 168 (Normal) :08 Microscopic Examination Comments: PATIENT WAS FASTINGPERFORMED BY: GUICHO [employer] [facility] [id number] Bacteria None seen (Normal) Mucus Threads Present (Normal) Epithelial Cells (non renal) None seen {/hpf} (Normal) Range: 0 - 10 RBC None seen {/hpf} (Normal) Range: 0 - 2 WBC 0-5 {/hpf} (Normal) Range: 0 - 5 :08 CALCIFIDIOL (94528) VIT D 25 Comments: PATIENT WAS FASTINGPERFORMED BY: GUICHO [employer] Jlordk9306 [facility] [id number] Vitamin D, 25-Hydroxy 62.4 ng/mL (Normal) Range: 30.0-100.0 Comments: Vitamin D deficiency has been defined by the [place] ofGenesis Hospitalcine and an Endocrine Society practice guideline as alevel of serum 25-OH vitamin D less than 20 ng/mL (1,2).The Endocrine Society went on to further define vitamin Dinsufficiency as a level between 21 and 29 ng/mL (2).1. IOM ([place] of Medicine). 2010. Dietary reference intakes for calcium and D. [place]: The National Academies Press.2. Charles MF, Raissa OCONNELL, Nirmala ALBERT, et al. Evaluation, treatment, and prevention of vitamin D deficiency: an Endocrine Society clinical practice guideline. JCEM. 2010; 96(7):1911-30. :08 URINALYSIS, W/ MICRO (74838) Comments: PATIENT WAS FASTINGPERFORMED BY: [facility]6370 [facility] [id number] Microscopic Examination See below: (Normal) Comments: Microscopic was indicated and was performed. Microscopic Examination MICRON (Normal) Comments: Microscopic follows if indicated. Nitrite, Urine Negative (Normal) Urobilinogen,Semi-Qn 0.2 mg/dL (Normal) Range: 0.2-1.0 Bilirubin Negative (Normal) Occult Blood Negative (Normal) Ketones Negative (Normal) Glucose Negative (Normal) Protein Negative (Normal) WBC Esterase Negative (Normal) Appearance Clear (Normal) Urine-Color Yellow (Normal) pH 6.0 (Normal) Range: 5.0-7.5 Specific Robert 1.022 (Normal) Range: 1.005-1.030 :08 MICROALBUMIN: CREATININE RATIO Comments: PATIENT WAS FASTINGPERFORMED BY: [facility]gnomixSur[facility] Center6370 [facility] [id number] (41360) AND (10040) Microalb/Creat Ratio <1.8 {mg/g_creat} (Normal) Range: 0.0-30.0 Microalbumin, Urine <3.0 ug/mL (Normal) Creatinine, Urine 164.4 mg/dL (Normal) :08 METABOLIC PANEL, COMPREHENSIVE Comments: PATIENT WAS FASTINGPERFORMED BY: [facility] [id number] (37135) ALT (SGPT) 16 [iU]/L (Normal) Range: 0-44 [...] Glucose, Serum 108 mg/dL (Abnormal) Range: 65-99 63-Vsc-145621:08 LIPID PANEL (50807) Comments: PATIENT WAS FASTINGPERFORMED BY: [employer] [facility] [id number] LDL/HDL Ratio 1.4 {ratio_units} (Normal) Range: 0.0-3.6 [...] DIFF WBC Comments: PATIENT WAS FASTINGPERFORMED BY: [employer] [facility] [id number] Information: [id number] (04193) Immature Grans (Abs) 0.0 {x10E3/uL} (Normal) Range: [...] 5.5 {x10E3/uL} (Normal) Range: 3.4-10.8 :08 TSH (58153) Comments: PATIENT WAS FASTINGPERFORMED BY: [employer] [facility] [id number] TSH 4.000 {uIU/mL} (Normal) Range: 0.450-4.500 :03 HgA1C , Office (22246) HgA1C , Office 6.2 % (Normal) Range: 4.6 - 7.1 :03 Blood Glucose , Office (20596) Blood Glucose , Office 102 (Normal) 6-Xky-405915:49 Throat Culture (33788) Comments: PATIENT NOT FASTINGPERFORMED BY: InnovaspireSaint Barnabas Medical CenterTivdbt6546 [facility] [id number] Information: SRC:THRT [id number] Result 1 RRF (Normal) Comments: Routine respiratory alfredo Upper Respiratory Culture Final report (Normal) :02 Rapid Strep Test, Office (28786) Rapid Strep Test, Office Negative (Normal) :48 Influenza A&B Viral Comments: PATIENT NOT FASTINGPERFORMED BY: [employer] Cmyljz3977 [address] [facility] [id number] Information: SRC:NOS [id number] Culture (69798) Viral Culture,Rapid,Influenza FLUABN (Normal) Comments: Negative:No Influenza A or B detected. 7-Zwt-580173:26 Rapid Flu (90749 x 2) Influenza A Ag negative (Normal) :30 HgA1C , Office (34894) HgA1C , Office 7.3 % (Abnormal) Range: 4.6 - 7.1 :30 Blood Glucose , Office (21035) Blood Glucose , Office 191 (Normal) :52 Microscopic Examination Comments: PATIENT WAS FASTINGPERFORMED BY: [employer] Ukvtzj9768 [facility] [id number] Bacteria None seen (Normal) Mucus Threads Present (Normal) Epithelial Cells (non renal) 0-10 {/hpf} (Normal) Range: 0 - 10 RBC 0-2 {/hpf} (Normal) Range: 0 - 2 WBC 0-5 {/hpf} (Normal) Range: 0 - 5 :52 CALCIFIDIOL (40443) VIT D 25 Comments: PATIENT WAS FASTINGPERFORMED BY: [facility]Pers[facility] Phouqd3770 [facility] [id number] Vitamin D, 25-Hydroxy 44.9 ng/mL (Normal) Range: 30.0-100.0 Comments: Vitamin D deficiency has been defined by the [place] ofMedicine and an Endocrine Society practice guideline as alevel of serum 25-OH vitamin D less than 20 ng/mL (1,2).The Endocrine Society went on to further define vitamin Dinsufficiency as a level between 21 and 29 ng/mL (2).1. IOM ([place] of Medicine). 2010. Dietary reference intakes for calcium and D. [place]: The National Academies Press.2. Charles MF, Raissa NC, Nirmala ALBERT, et al. Evaluation, treatment, and prevention of vitamin D deficiency: an Endocrine Society clinical practice guideline. JCEM. 2010; 96(7):1911-30. :52 LIPID PANEL (03740) Comments: PATIENT WAS FASTINGPERFORMED BY: ClustrixSaint Barnabas Medical CenterEjaadw1454 [facility] [id number] LDL/HDL Ratio 2.4 {ratio_units} (Normal) Range: 0.0-3.6 [...] 196 mg/dL (Normal) Range: 100-199 :52 TSH (51717) Comments: PATIENT WAS FASTINGPERFORMED BY: ClustrixSaint Barnabas Medical CenterIgpyqr2047 [facility] [id number] TSH 4.480 {uIU/mL} (Normal) Range: 0.450-4.500 :52 URINALYSIS, W/ MICRO (26072) Comments: PATIENT WAS FASTINGPERFORMED BY: [facility]gn[facility]ixSurgeons [facility] Center6370 [facility] [id number] Microscopic Examination See below: (Normal) Comments: Microscopic was indicated and was performed. Microscopic Examination MICRON (Normal) Comments: Microscopic follows if indicated. Nitrite, Urine Negative (Normal) Urobilinogen,Semi-Qn 0.2 mg/dL (Normal) Range: 0.2-1.0 Bilirubin Negative (Normal) Occult Blood Negative (Normal) Ketones Negative (Normal) Glucose Negative (Normal) Protein Negative (Normal) WBC Esterase Negative (Normal) Appearance Clear (Normal) Urine-Color Yellow (Normal) pH 6.0 (Normal) Range: 5.0-7.5 Specific Robert 1.024 (Normal) Range: 1.005-1.030 :52 MICROALBUMIN: CREATININE RATIO Comments: PATIENT WAS FASTINGPERFORMED BY: InnovaspireSaint Barnabas Medical CenterYvewkn5395 [facility] [id number] (66797) AND (18015) Microalb/Creat Ratio <2.2 {mg/g_creat} (Normal) Range: 0.0-30.0 Microalbumin, Urine <3.0 ug/mL (Normal) Range: 0.0-17.0 Creatinine, Urine 135.9 mg/dL (Normal) Range: 22.0-328.0 :52 METABOLIC PANEL, COMPREHENSIVE Comments: PATIENT WAS FASTINGPERFORMED BY: [employer] Bsfdwh1635 [facility] [id number]; will review at 02/21 appt (35566) ALT (SGPT) 13 [iU]/L (Normal) Range: 0-44 [...] Glucose, Serum 130 mg/dL (Abnormal) Range: 65-99 60-Cei-75158:52 CBC W/AUTO DIFF WBC Comments: PATIENT WAS FASTINGPERFORMED BY: LabPers[facility] Hospital Oqfpoz1100 [facility] [id number] Information: [id number] (21970) Immature Grans (Abs) 0.0 {x10E3/uL} (Normal) Range: [...] (Normal) Range: 3.4-10.8 :56 HgA1C , Office (83265) HgA1C , Office 5.9 % (Normal) Range: 4.6 - 7.1 :56 Blood Glucose , Office (51416) Blood Glucose , Office 103 (Normal) :35 HgA1C , Office (35670) HgA1C , Office 6.0 % (Normal) Range: 4.6 - 7.1 :34 Blood Glucose , Office (02677) Blood Glucose , Office 135 (Normal) :45 Potassium Comments: Test performed at:[facility] Youeeucoux6971 [place] [address] K 4.3 mmol/L (Normal) Range: 3.5-5.1 :54 Comp. Metabolic Panel (14) Comments: PATIENT WAS FASTINGPERFORMED BY: [facility] Zppayj9202 [facility] [id number] Information: [id number] ALT (SGPT) 11 [iU]/L (Normal) Range: 0-44 [...] Glucose, Serum 117 mg/dL (Abnormal) Range: 65-99 46-Hsb-10058:54 Lipid Panel With LDL/HDL Comments: PATIENT WAS FASTINGPERFORMED BY: [employer] [id number] Ratio LDL/HDL Ratio 2.1 {ratio_units} Range: 0.0-3.6 [...] 2.860 {uIU/mL} Comments: PATIENT WAS FASTINGPERFORMED BY: [employer]6370 [facility] [id number] 9:54 (Normal) Range: 0.450-4.500 02-Aug-2014 Vitamin D, 25-Hydroxy 61.9 ng/mL (Normal) Comments: PATIENT WAS FASTINGPERFORMED BY: [employer] Buyelf8265 [facility] [id number] 9:54 Range: 30.0-100.0 Comments: Vitamin D deficiency has been defined by the [place] ofMedicine and an Endocrine Society practice guideline as alevel of serum 25-OH vitamin D less than 20 ng/mL (1,2).The Endocrine Society went on to further define vitamin Dinsufficiency as a level between 21 and 29 ng/mL (2).1. IOM ([place] of Medicine). 2010. Dietary reference intakes for calcium and D. [place]: The National Academies Press.2. Raissa Harrison, Nirmala ALBERT, et al. Evaluation, treatment, and prevention of vitamin D deficiency: an Endocrine Society clinical practice guideline. JCEM. 2010; 96(7):1911-30. :13 HgA1C , Office (81443) HgA1C , Office 6.8 % (Normal) Range: 4.6 - 7.1 :13 Blood Glucose , Office (27136) Blood Glucose , Office 218 (Normal) :24 Microscopic Examination Comments: PATIENT WAS FASTINGPERFORMED BY: [employer]6370 [facility] [id number] Bacteria None seen (Normal) Mucus Threads Present (Normal) Epithelial Cells (non renal) None seen {/hpf} (Normal) Range: 0 - 10 RBC 0-2 {/hpf} (Normal) Range: 0 - 2 WBC 0-5 {/hpf} (Normal) Range: 0 - 5 :24 Vitamin D Hydroxy (69059) Comments: PATIENT WAS FASTINGPERFORMED BY: [employer]6370 [facility] [id number] Vitamin D, 25-Hydroxy 35.7 ng/mL (Normal) Range: 30.0-100.0 Comments: Vitamin D deficiency has been defined by the [place] ofMedicine and an Endocrine Society practice guideline as alevel of serum 25-OH vitamin D less than 20 ng/mL (1,2).The Endocrine Society went on to further define vitamin Dinsufficiency as a level between 21 and 29 ng/mL (2).1. IOM ([place] of [place]). 2010. Dietary reference intakes for calcium and D. [place]: The National Academies Press.2. Raissa Harrison, Nirmala ALBERT, et al. Evaluation, treatment, and prevention of vitamin D deficiency: an Endocrine Society clinical practice guideline. JCEM. 2010; 96(7):1911-30. :24 URINALYSIS, W/ MICRO (32599) Comments: PATIENT WAS FASTINGPERFORMED BY: [employer] Foddmy1228 [facility] [id number] Microscopic Examination See below: (Normal) Comments: Microscopic was indicated and was performed. Microscopic Examination MICRON (Normal) Comments: Microscopic follows if indicated. Nitrite, Urine Negative (Normal) Urobilinogen,Semi-Qn 0.2 mg/dL (Normal) Range: 0.0-1.9 Bilirubin Negative (Normal) Occult Blood Negative (Normal) Ketones Negative (Normal) Glucose Negative (Normal) Protein Negative (Normal) WBC Esterase Negative (Normal) Appearance Clear (Normal) Urine-Color Yellow (Normal) pH 6.0 (Normal) Range: 5.0-7.5 Specific Robert 1.025 (Normal) Range: 1.005-1.030 71-Sbb-448544:24 TSH (43549) Comments: PATIENT WAS FASTINGPERFORMED BY: [employer] Kfodxx2954 [facility] [id number] TSH 2.740 {uIU/mL} (Normal) Range: 0.450-4.500 06-Cau-299326:24 MICROALBUMIN: CREATININE RATIO Comments: PATIENT WAS FASTINGPERFORMED BY: InnovaspireSaint Barnabas Medical CenterPjazja2441 [facility] [id number] (49270) AND (92993) Microalb/Creat Ratio <1.5 {mg/g_creat} (Normal) Range: 0.0-30.0 Microalbumin, Urine <3.0 ug/mL (Normal) Range: 0.0-17.0 Creatinine, Urine 205.5 mg/dL (Normal) Range: 22.0-328.0 36-Afs-794790:24 METABOLIC PANEL, COMPREHENSIVE Comments: PATIENT WAS FASTINGPERFORMED BY: [employer] Fzoayu5714 [facility] [id number] (89291) ALT (SGPT) 13 [iU]/L (Normal) Range: 0-44 [...] Glucose, Serum 138 mg/dL (Abnormal) Range: 65-99 37-Tfi-053276:24 LIPID PANEL (95411) Comments: PATIENT WAS FASTINGPERFORMED BY: LabCoSaint Barnabas Medical CenterIbvbbb8886 [facility] [id number] LDL/HDL Ratio 3.2 {ratio_units} (Normal) Range: 0.0-3.6 [...] Cholesterol, Total 221 mg/dL (Abnormal) Range: 100-199 86-Mkp-286709:24 CBC W/AUTO DIFF WBC Comments: PATIENT WAS FASTINGPERFORMED BY: [facility] HospitalCoBrian Ville [id number] [facility] [id number] Information: [id number] (25919) Immature Grans (Abs) 0.0 {x10E3/uL} (Normal) Range: [...] 4.14-5.80 WBC 5.0 {x10E3/uL} (Normal) Range: 3.4-10.8 95-Gqs-459935:00 Fecal Occult Blood , Office (14451) Fecal Occult Blood , Office (Inhouse) negative (Normal) 27-Bfg-948910:57 PSA (PROSTATE SPECIFIC Comments: PATIENT NOT FASTINGPERFORMED BY: [place] [id number] [facility] [id number] Information: [id number] ANTIGEN) (V76.44) Prostate Specific Ag, 1.5 ng/mL (Normal) Range: 0.0-4.0 Serum Comments: Dee ECLIA methodology. .According to the [place] [employer], Serum PSA shoulddecrease and remain [...] of malignant disease. :17 HgA1C , Office (68371) HgA1C , Office 7.0 % (Normal) Range: 4.6 - 7.1 :17 Blood Glucose , Office (74415) Blood Glucose , Office 118 (Normal) :50 HgA1C , Office (80270) HgA1C , Office 7.6 % (Abnormal) Range: 4.6 - 7.1 :50 Blood Glucose , Office (04116) Blood Glucose , Office 142 (Normal) 6-Lbv-950050:44 Microscopic Examination Comments: PATIENT WAS FASTINGPERFORMED BY: [facility] [id number] Bacteria None seen (Normal) Mucus Threads Present (Normal) Epithelial Cells (non renal) None seen {/hpf} (Normal) Range: 0 - 10 RBC 0-2 {/hpf} (Normal) Range: 0 - 2 WBC 0-5 {/hpf} (Normal) Range: 0 - 5 :32 URINALYSIS, W/ MICRO (98644) Comments: PATIENT WAS FASTINGPERFORMED BY: [facility] [id number] Microscopic Examination See below: (Normal) Comments: Microscopic was indicated and was performed. Microscopic Examination MICRON (Normal) Comments: Microscopic follows if indicated. Nitrite, Urine Negative (Normal) Urobilinogen,Semi-Qn 0.2 mg/dL (Normal) Range: 0.0-1.9 Bilirubin Negative (Normal) Ketones Negative (Normal) Occult Blood Negative (Normal) Glucose Trace (Abnormal) Protein Negative (Normal) WBC Esterase Negative (Normal) Appearance Clear (Normal) Urine-Color Yellow (Normal) pH 6.0 (Normal) Range: 5.0-7.5 Specific Robert 1.024 (Normal) Range: 1.005-1.030 :32 MICROALBUMIN: CREATININE RATIO Comments: PATIENT WAS FASTINGPERFORMED BY: [employer] Zjfekx9588 [facility] [id number] (05679) AND (41186) Microalb/Creat Ratio 1.3 {mg/g_creat} (Normal) Range: 0.0-30.0 Creatinine, Urine 188.3 mg/dL (Normal) Range: 22.0-328.0 Microalbumin, Urine 2.4 ug/mL (Normal) Range: 0.0-17.0 :32 TSH (32733) Comments: PATIENT WAS FASTINGPERFORMED BY: [employer] Ccggzx7829 [facility] [id number] TSH 3.250 {uIU/mL} (Normal) Range: 0.450-4.500 1-Kht-541382:32 METABOLIC PANEL, COMPREHENSIVE Comments: PATIENT WAS FASTINGPERFORMED BY: [employer] [facility] [id number]; will review at 10/08 appt (14190) ALT (SGPT) 22 [iU]/L (Normal) Range: 0-44 [...] Glucose, Serum 152 mg/dL (Abnormal) Range: 65-99 3-Ajy-948955:32 LIPID PANEL (36281) Comments: PATIENT WAS FASTINGPERFORMED BY: [employer] [facility] [id number] LDL/HDL Ratio 2.0 {ratio_units} (Normal) Range: 0.0-3.6 [...] MANUAL DIFF Comments: PATIENT WAS FASTINGPERFORMED BY: [employer] [facility] [id number] Information: [id number] (77972) Immature Grans (Abs) 0.0 {x10E3/uL} (Normal) Range: [...] (Normal) Range: 3.4-10.8 :37 HgA1C , Office (93553) HgA1C , Office 7.1 % (Normal) Range: 4.6 - 7.1 :37 Blood Glucose , Office (89579) Blood Glucose , Office 142 (Normal) 91-Svj-287425:39 Microscopic Examination Comments: PATIENT WAS FASTINGPERFORMED BY: [employer] [place] [id number] Bacteria None seen (Normal) Mucus Threads Present (Normal) Epithelial Cells (non renal) None seen {/hpf} (Normal) Range: 0 - 10 RBC None seen {/hpf} (Normal) Range: 0 - 3 WBC 0-5 {/hpf} (Normal) Range: 0 - 5 :13 Vitamin D Hydroxy (04967) Comments: PATIENT WAS FASTINGPERFORMED BY: [employer] [place] [id number] Vitamin D, 25-Hydroxy 35.9 ng/mL (Normal) Range: 30.0-100.0 Comments: Vitamin D deficiency has been defined by the [place] ofMedicine and an Endocrine Society practice guideline as alevel of serum 25-OH vitamin D less than 20 ng/mL (1,2).The Endocrine Society went on to further define vitamin Dinsufficiency as a level between 21 and 29 ng/mL (2).1. IOM ([place] of Medicine). 2010. Dietary reference intakes for calcium and D. [place]: The National Academies Press.2. Charles MF, Raissa OCONNELL, Nirmala ALBERT, et al. Evaluation, treatment, and prevention of vitamin D deficiency: an Endocrine Society clinical practice guideline. JCEM. 2010; 96(7):1911-30. :13 TSH (07675) Comments: PATIENT WAS FASTINGPERFORMED BY: [employer]6370 [employer] [place] [id number] TSH 4.190 {uIU/mL} (Normal) Range: 0.450-4.500 :13 URINALYSIS, W/ MICRO (02820) Comments: PATIENT WAS FASTINGPERFORMED BY: Innovaspirerp Wqgibg0489 [facility] [id number] Microscopic Examination MICRON (Normal) Comments: Microscopic follows if indicated. Microscopic Examination See below: (Normal) Nitrite, Urine Negative (Normal) Urobilinogen,Semi-Qn 0.2 mg/dL (Normal) Range: 0.0-1.9 Bilirubin Negative (Normal) Occult Blood Negative (Normal) Ketones Negative (Normal) Glucose Negative (Normal) Protein Negative (Normal) Appearance Clear (Normal) WBC Esterase Negative (Normal) Urine-Color Yellow (Normal) pH 7.0 (Normal) Range: 5.0-7.5 Specific Robert 1.023 (Normal) Range: 1.005-1.030 :13 MICROALBUMIN: CREATININE RATIO Comments: PATIENT WAS FASTINGPERFORMED BY: Innovaspirerp Lhlsei1218 [facility] [id number] (04225) AND (86707) Microalb/Creat Ratio 1.4 {mg/g_creat} (Normal) Range: 0.0-30.0 Creatinine, Urine 177.1 mg/dL (Normal) Range: 22.0-328.0 Microalbumin, Urine 2.5 ug/mL (Normal) Range: 0.0-17.0 :13 METABOLIC PANEL, COMPREHENSIVE Comments: PATIENT WAS FASTINGPERFORMED BY: [employer]70 [facility] [id number] (58390) ALT (SGPT) 17 [iU]/L (Normal) Range: 0-44 [...] mg/dL (Abnormal) Range: 65-99 :13 LIPID PANEL (47089) Comments: PATIENT WAS FASTINGPERFORMED BY: [employer]6370 [facility] [id number] LDL/HDL Ratio 1.8 {ratio_units} (Normal) Range: 0.0-3.6 LDL Cholesterol Calc 86 mg/dL (Normal) Range: 0-99 VLDL Cholesterol Ezequiel 18 mg/dL (Normal) Range: 5-40 HDL Cholesterol 48 mg/dL (Normal) Comments: According to ATP-III Guidelines, HDL-C >59 mg/dL is considered anegative risk factor for CHD. Triglycerides 92 mg/dL (Normal) Range: 0-149 Cholesterol, Total 152 mg/dL (Normal) Range: 100-199 69-Sze-05649:13 CBC WITH MANUAL DIFF Comments: PATIENT WAS FASTINGPERFORMED BY: LabCoSaint Barnabas Medical CenterPsgalz5845 [facility] [id number] Information: [id number] (39370) Immature Grans (Abs) 0.0 {x10E3/uL} (Normal) Range: [...] (Normal) Range: 3.4-10.8 :31 HgA1C , Office (47421) HgA1C , Office 6.7 % (Normal) Range: 4.6 - 7.1 :31 Blood Glucose , Office (83108) Blood Glucose , Office 141 (Normal) :55 HgA1C , Office (15752) HgA1C , Office 6.4 % (Normal) Range: 4.6 - 7.1 :55 Blood Glucose , Office (65916) Blood Glucose , Office 116 (Normal) :33 Microscopic Examination Comments: PATIENT WAS FASTINGPERFORMED BY: [employer]6370 [facility] [id number] Bacteria None seen (Normal) Mucus Threads Present (Normal) Epithelial Cells (non renal) None seen {/hpf} (Normal) Range: 0 - 10 RBC 0-3 {/hpf} (Normal) Range: 0 - 3 WBC 0-5 {/hpf} (Normal) Range: 0 - 5 :33 PSA (PROSTATE SPECIFIC Comments: PATIENT WAS FASTINGPERFORMED BY: [employer]6370 [facility] [id number] ANTIGEN) (V76.44) Prostate Specific Ag, 1.5 ng/mL (Normal) Range: 0.0-4.0 Serum Comments: [employer] ECLIA methodology. .According to the [place] [employer], Serum PSA shoulddecrease and remain at undetectable levels after radicalprostatectomy. The AUA defines biochemical recurrence as an initialPSA value 0.2 ng/mL or greater followed by a subsequent confirmatoryPSA value 0.2 ng/mL or greater.Values obtained with d ifferent assay methods or kits cannot be usedinterchangeably. Results cannot be interpreted as absolute evidenceof the presence or absence of malignant disease. :33 TSH (52150) Comments: PATIENT WAS FASTINGPERFORMED BY: [facility]6370 [facility] [id number] TSH 2.770 {uIU/mL} (Normal) Range: 0.450-4.500 :33 URINALYSIS, W/ MICRO (05942) Comments: PATIENT WAS FASTINGPERFORMED BY: [place] 1930070 [facility] [id number] Microscopic Examination See below: (Normal) Microscopic Examination MICRON (Normal) Comments: Microscopic follows if indicated. Nitrite, Urine Negative (Normal) Urobilinogen,Semi-Qn 0.2 mg/dL (Normal) Range: 0.0-1.9 Bilirubin Negative (Normal) Occult Blood Negative (Normal) Ketones Negative (Normal) Glucose Negative (Normal) Protein Negative (Normal) WBC Esterase Negative (Normal) Appearance Clear (Normal) Urine-Color Yellow (Normal) pH 6.0 (Normal) Range: 5.0-7.5 Specific Robert 1.026 (Normal) Range: 1.005-1.030 46-Fdi-551360:33 MICROALBUMIN: CREATININE RATIO Comments: PATIENT WAS FASTINGPERFORMED BY: [facility]ix[facility] Center6370 [facility] [id number] (15466) AND (12806) Microalb/Creat Ratio 1.8 {mg/g_creat} (Normal) Range: 0.0-30.0 Microalbumin, Urine 3.6 ug/mL (Normal) Range: 0.0-17.0 Creatinine, Urine 203.4 mg/dL (Normal) Range: 22.0-328.0 65-Reb-872982:33 METABOLIC PANEL, COMPREHENSIVE Comments: PATIENT WAS FASTINGPERFORMED BY: [facility]6370 [facility] [id number] (61018) ALT (SGPT) 16 [iU]/L (Normal) Range: 0-44 [...] Glucose, Serum 114 mg/dL (Abnormal) Range: 65-99 36-Ndy-108921:33 LIPID PANEL (68938) Comments: PATIENT WAS FASTINGPERFORMED BY: [employer] [facility] [id number] LDL/HDL Ratio 1.3 {ratio_units} (Normal) Range: 0.0-3.6 LDL Cholesterol Calc 63 mg/dL (Normal) Range: 0-99 VLDL Cholesterol Ezequiel 25 mg/dL (Normal) Range: 5-40 HDL Cholesterol 47 mg/dL (Normal) Comments: According to ATP-III Guidelines, HDL-C >59 mg/dL is considered anegative risk factor for CHD. Triglycerides 123 mg/dL (Normal) Range: 0-149 Cholesterol, Total 135 mg/dL (Normal) Range: 100-199 66-Gfm-951945:33 CBC WITH MANUAL DIFF Comments: PATIENT WAS FASTINGPERFORMED BY: InnovaspireLea Regional Medical CenterRnevfc4493 [facility] [id number] Information: [id number] (25564) Immature Grans (Abs) 0.0 {x10E3/uL} (Normal) Range: [...] (Normal) Range: 4.0-10.5 :22 HgA1C , Office (25827) HgA1C , Office 6.3 % (Normal) Range: 4.6 - 7.1 :22 Blood Glucose , Office (14827) Blood Glucose , Office 109 (Normal) :49 ALDOS 9.3 ng/dL (Normal) Range: 0.0-30.0 :49 CATU tDOP24 674 Range: 0-510 {ug/24_hr} Comments: TESTING PERFORMED AT [facility]. ORIGINAL REPORT ONFILE IN LAB CONTAINS [...] metanephrines and plasma catecolamines. TESTING PERFORMED AT [facility]. ORIGINAL REPORT ONFILE IN LAB CONTAINS [...] >150 0.39 - 1.31Performed at: - [facility] [address] [id number] Director: Bruno Williamson MD, Phone: [phone] - (Normal) M joceline y - 2 0 1 3 9 : 4 9 51-Cxb-55660:49 VMA tVMA24 4.6 {mg/24_hr} (Normal) Range: 0.0-7.5 [...] 126 mg/dLsuggests DIABETES MELLITUS per A.D.A. criteria. 56-Kre-968419:15 CBCD ANC 3.6 3/uL (Normal) Range: 2.0-7.7 [...] 4.6-6.2 WBC 6.4 {k/mm3} (Normal) Range: 4.4-11.0 64-Zuu-47064:00 BRAIN W/WO CONTRAST Radiology Report See Note [...] Stauffer M.D.August 08, 2012 at 10:05:25 PM [id number] Signed AH/AH If you are the referring physician and would like to consult with theradiologist who provided this interpretation, please contact Chad Mast at [phone]. If this radiologist is unavailable,you will be directed to another radiologist to assist. If you are a patient with a question regarding this report, pleasecontactyour referring physician directly . Professional Interpretation Provided By: [employer], Phone , These documents contain legally protected [...] on 08/08/122207 Sign by: MIKHAIL STAUFFER MD 47-Kqi-144271:32 BRAIN/HEAD WITHOUT CONTRAST Radiology Report See Note [...] Fontenot M.D.August 04, 2012 at 5:16:58 PM [id number] Signed DN/DN If you are the referring physician and would like to consult with theradiologist who pro vided this interpretation, please contact Heather Ng M.D. at [phone]. If this radiologist is unavailable, youwillbe directed to another radiologist to assist. If you are a patient with a quest ion regarding this report, pleasecontactyour referring physician directly. Professional Interpretation Provided By: [employer], Phone , These documents contain legally pro [...] 08/04/121718 Sign by: ___ HEATHER FONTENOT MD 12-Bti-604550:36 CBCD ANC 4.1 3/uL (Normal) Range: 2.0-7.7 [...] PANEL, Comments: PATIENT NOT FASTINGPERFORMED BY: LabCoSaint Barnabas Medical CenterEhucxq4922 [facility] [id number] Information: [id number] COMPREHENSIVE (68086) ALT (SGPT) 13 [iU]/L (Normal) Range: 0-44 [...] (Normal) Range: 65-99 :01 HgA1C , Office (80668) HgA1C , Office 6.2 % (Normal) Range: 4.6 - 7.1 :01 Blood Glucose , Office (47751) Blood Glucose , Office 89 (Normal) :48 Microscopic Examination Comments: PATIENT WAS FASTINGPERFORMED BY: LabCoSaint Barnabas Medical CenterZxtyrn6007 [facility] [id number] Bacteria Few (Normal) Mucus Threads Present (Normal) Epithelial Cells (non renal) None seen {/hpf} (Normal) Range: 0 - 10 RBC 0-3 {/hpf} (Normal) Range: 0 - 3 WBC 0-5 {/hpf} (Normal) Range: 0 - 5 :48 TSH (38006) Comments: PATIENT WAS FASTINGPERFORMED BY: ClustrixLea Regional Medical CenterZsrxyn9626 [facility] [id number] TSH 5.340 {uIU/mL} (Abnormal) Range: 0.450-4.500 :48 URINALYSIS, W/ MICRO (65958) Comments: PATIENT WAS FASTINGPERFORMED BY: ClustrixLea Regional Medical CenterLnwscj4043 [facility] [id number] Microscopic Examination See below: (Normal) Microscopic Examination MICRON (Normal) Comments: Microscopic follows if indicated. Bilirubin Negative (Normal) Nitrite, Urine Negative (Normal) Urobilinogen,Semi-Qn 0.2 mg/dL (Normal) Range: 0.0-1.9 Occult Blood Negative (Normal) Ketones Negative (Normal) Glucose Negative (Normal) Protein Negative (Normal) WBC Esterase Negative (Normal) Appearance Clear (Normal) pH 5.5 (Normal) Range: 5.0-7.5 Urine-Color Yellow (Normal) Specific Robert 1.028 (Normal) Range: 1.005-1.030 :48 MICROALBUMIN: CREATININE RATIO Comments: PATIENT WAS FASTINGPERFORMED BY: ClustrixLea Regional Medical CenterWwoetv1697 [facility] [id number] (76116) AND (31028) Microalb/Creat Ratio 1.6 {mg/g_creat} (Normal) Range: 0.0-30.0 Creatinine, Urine 195.7 mg/dL (Normal) Range: 22.0-328.0 Microalbumin, Urine 3.2 ug/mL (Normal) Range: 0.0-17.0 :48 METABOLIC PANEL, COMPREHENSIVE Comments: PATIENT WAS FASTINGPERFORMED BY: ClustrixSaint Barnabas Medical CenterVfpwad4982 [facility] [id number] (18037) ALT (SGPT) 16 [iU]/L (Normal) Range: 0-44 [...] mg/dL (Normal) Range: 65-99 :48 LIPID PANEL (55092) Comments: PATIENT WAS FASTINGPERFORMED BY: [employer] [facility] [id number] LDL Cholesterol Calc 97 mg/dL (Normal) Range: [...] MANUAL DIFF Comments: PATIENT WAS FASTINGPERFORMED BY: [employer]6370 [facility] [id number] Information: [id number] (11314) Immature Grans (Abs) 0.0 {x10E3/uL} (Normal) Range: [...] (Normal) Range: 4.0-10.5 :46 HgA1C , Office (63165) HgA1C , Office 6.1 % (Normal) Range: 4.6 - 7.1 :46 Blood Glucose , Office (91655) Blood Glucose , Office 91 (Normal) 0-Yyf-707080:25 HEPATOBILLIARY IMG W/PHARM INT Radiology Report See [...] Cholecystokinin (0.02 ug/kg) was administered intravenously over k71-fwcijy period. The post CCK gallbladder ejection fraction fsixplfqimvd11 minutes following Cholecystokinin administration was noted to [...] Richmond M.D.December 24, 2011 at 8:34:10 PM [id number] S igned RB/RB If you are the referring physician and would like to consult with theradiologist who provided this interpretation, please contact Chad Aragon at [phone]. If this radiologist is un available, you will bedirected to another radiologist to assist. If you are a patient with a question regarding this report, pleasecontactyour referring physician directly. Professional Interpretation P rovided By: [employer], Phone , These documents contain legally protected [...] size of the right kidney. The right jcnylgtljapope70.6 cm. Normal rolando al cortex. The right cortex measures 1.8 cm. Thereisno demonstrated renal mass or cyst. There is no right hydronephrosis. IMPRESSION:Sludge in the gallbladder lumen, with a thickened gallbladder wall .Correlation with nuclear medicine hepatobiliary scan is recommended. Signed:Jakob Hunt M.D.December 18, 2011 at 11:00:05 AM [id number] Signed GP/GP If you are the referring physician and would like to consult with theradiologist who provided this interpretation, please contact Chad Lao at [phone]. If this radiologist is unavailable, youwill be directed to another radiologist to assist. If you are a patient with a question regarding this report, pleasecontactyour referring physician directly. Professional Interpretation Provided By: [employer], Phone , These documents contain legally protected [...] Jakob Hunt MD :41 HgA1C , Office (91005) HgA1C , Office 6.2 % (Normal) Range: 4.6 - 7.1 :41 Blood Glucose , Office (47444) Blood Glucose , Office 115 (Normal) :37 HgA1C , Office (81921) HgA1C , Office 6.4 % (Normal) Range: 4.6 - 7.1 :37 Blood Glucose , Office (60290) Blood Glucose , Office 119 (Normal) :44 PSA (PROSTATE SPECIFIC Comments: PATIENT WAS FASTINGPERFORMED BY: CB LabSurgeons [facility] Center6370 [facility] [id number] ANTIGEN) (V76.44) Prostate Specific Ag, 1.7 ng/mL (Normal) Range: 0.0-4.0 Serum Comments: [employer] methodology. .According to the [place] [employer], Serum PSA shoulddecrease and remain at undetectable levels after radicalprostatectomy. The AUA defines biochemical recurrence as an initialPSA value 0.2 ng/mL or greater followed by a subsequent confirmatoryPSA value 0.2 ng/mL or greater.Values obtained with d ifferent assay methods or kits cannot be usedinterchangeably. Results cannot be interpreted as absolute evidenceof the presence or absence of malignant disease. :44 TSH (71001) Comments: PATIENT WAS FASTINGPERFORMED BY: [employer]6370 [facility] [id number] TSH 2.660 {uIU/mL} (Normal) Range: 0.450-4.500 :44 URINALYSIS, W/ MICRO (67412) Comments: PATIENT WAS FASTINGPERFORMED BY: [employer]6370 [facility] [id number] Microscopic Examination See below: (Normal) Microscopic Examination MICRON (Normal) Comments: Microscopic follows if indicated. Nitrite, Urine Negative (Normal) Urobilinogen,Semi-Qn 0.2 mg/dL (Normal) Range: 0.0-1.9 Bilirubin Negative (Normal) Occult Blood Negative (Normal) Ketones Negative (Normal) Glucose Negative (Normal) Protein Negative (Normal) WBC Esterase Negative (Normal) Appearance Clear (Normal) Urine-Color Yellow (Normal) pH 6.0 (Normal) Range: 5.0-7.5 Specific Robert 1.024 (Normal) Range: 1.005-1.030 :44 MICROALBUMIN: CREATININE RATIO Comments: PATIENT WAS FASTINGPERFORMED BY: [employer] Ipnvly5620 [facility] [id number] (65540) AND (14871) Microalb/Creat Ratio 1.1 {mg/g_creat} (Normal) Range: 0.0-30.0 Microalbumin, Urine 3.2 ug/mL (Normal) Range: 0.0-17.0 Creatinine, Urine 294.1 mg/dL (Normal) Range: 22.0-328.0 :44 Microscopic Examination Comments: PATIENT WAS FASTINGPERFORMED BY: ClustrixSaint Barnabas Medical CenterXrbmfq5547 [facility] [id number] Bacteria None seen (Normal) Mucus Threads Present (Normal) Epithelial Cells (non renal) None seen {/hpf} (Normal) Range: 0 - 10 RBC 0-3 {/hpf} (Normal) Range: 0 - 3 WBC 0-5 {/hpf} (Normal) Range: 0 - 5 :44 METABOLIC PANEL, COMPREHENSIVE Comments: PATIENT WAS FASTINGPERFORMED BY: [employer]6370 [facility] [id number] (22582) ALT (SGPT) 21 [iU]/L (Normal) Range: 0-55 [...] mg/dL (Abnormal) Range: 65-99 :44 LIPID PANEL (64996) Comments: PATIENT WAS FASTINGPERFORMED BY: [employer] Ueryxg0616 [facility] [id number] LDL/HDL Ratio 1.2 {ratio_units} (Normal) Range: 0.0-3.6 [...] MANUAL DIFF Comments: PATIENT WAS FASTINGPERFORMED BY: [employer]6370 [facility] [id number] Information: [id number] (21282) Immature Grans (Abs) 0.0 {x10E3/uL} (Normal) Range: [...] (Normal) Range: 4.0-10.5 :25 HgA1C , Office (97389) HgA1C , Office 6.2 % (Normal) Range: 4.6 - 7.1 :25 Blood Glucose , Office (66349) Blood Glucose , Office 84 (Normal) :56 Blood Glucose , Office (94603) Blood Glucose , Office 96 (Normal) 1-Yww-904303:29 SPINE, LUMBAR (ROUTINE) Radiology Report See Note [...] HEATHER FONTENOT MD :08 HgA1C , Office (31720) HgA1C , Office 6.3 % (Normal) Range: 4.6 - 7.1 :08 Blood Glucose , Office (83116) Blood Glucose , Office 108 (Normal) :50 URINALYSIS, W/ MICRO (56020) Comments: PATIENT WAS FASTINGPERFORMED BY: [employer] Medical[employer] [place] [id number] Microscopic Examination See below: (Normal) Microscopic Examination MICRON (Normal) Comments: Microscopic follows if indicated. Nitrite, Urine Negative (Normal) Urobilinogen,Semi-Qn 0.2 mg/dL (Normal) Range: 0.0-1.9 Bilirubin Negative (Normal) Occult Blood Negative (Normal) Ketones Negative (Normal) Glucose Negative (Normal) Protein Negative (Normal) WBC Esterase Negative (Normal) Appearance Clear (Normal) Urine-Color Yellow (Normal) pH 5.5 (Normal) Range: 5.0-7.5 Specific Robert 1.022 (Normal) Range: 1.005-1.030 :50 MICROALBUMIN: CREATININE RATIO Comments: PATIENT WAS FASTINGPERFORMED BY: [facility] Medical[facility] [id number] (12531) AND (37679) Microalb/Creat Ratio <.6 {mg/g_creat} (Normal) Range: 0.0-30.0 Creatinine, Urine 163.1 mg/dL (Normal) Range: 22.0-328.0 Microalbumin, Urine <1.0 ug/mL (Normal) Range: 0.0-17.0 Comments: Verified by repeat analysis :50 METABOLIC PANEL, COMPREHENSIVE Comments: PATIENT WAS FASTINGPERFORMED BY: [employer] [facility] [id number] (38815) ALT (SGPT) 16 [iU]/L (Normal) Range: 0-55 [...] mg/dL (Abnormal) Range: 65-99 :50 LIPID PANEL (36230) Comments: PATIENT WAS FASTINGPERFORMED BY: [employer] [facility] [id number] LDL Cholesterol Calc 68 mg/dL (Normal) Range: [...] DIFF Comments: PATIENT WAS FASTINGPERFORMED BY: [facility] Hfqnrc5153 [facility] [id number] Information: [id number] (25657) Immature Grans (Abs) 0.0 {x10E3/uL} (Normal) Range: [...] Microscopic Examination Comments: PATIENT WAS FASTINGPERFORMED BY: [employer] Fbdqkb6918 [facility] [id number] Bacteria Few (Normal) Mucus Threads Present (Normal) Epithelial Cells (non renal) None seen {/hpf} (Normal) Range: 0 - 10 RBC None seen {/hpf} (Normal) Range: 0 - 3 WBC 0-5 {/hpf} (Normal) Range: 0 - 5 :58 HgA1C , Office (61412) HgA1C , Office 6.0 % (Normal) Range: 4.6 - 7.1 :58 Blood Glucose , Office (29454) Blood Glucose , Office 93 (Normal) :13 PSA (PROSTATE SPECIFIC Comments: PATIENT NOT FASTINGPERFORMED BY: [employer] Quuqto4051 [facility] [id number] Information: [id number] ANTIGEN) (V76.44) Prostate Specific Ag, 1.5 ng/mL (Normal) Range: 0.0-4.0 Serum Comments: Dee ECLIA methodology. .According to the [place] [employer], Serum PSA shoulddecrease and remain [...] of malignant disease. :16 HgA1C , Office (28946) HgA1C , Office 6.2 % (Normal) Range: 4.6 - 7.1 :16 Blood Glucose , Office (31551) Blood Glucose , Office 196 (Normal) 3-Hoh-744953:15 TSH (53764) Comments: PATIENT WAS FASTINGPERFORMED BY: [facility]ixSur[facility]6370 [facility] [id number] TSH 3.200 {uIU/mL} (Normal) Range: 0.450-4.500 8-Lpi-299513:15 MICROALBUMIN: CREATININE RATIO Comments: PATIENT WAS FASTINGPERFORMED BY: [facility]gnomixSur[facility] Center6370 [facility] [id number] (16954) AND (23011) Creatinine, Urine 168.7 mg/dL (Normal) Range: 22.0-328.0 Microalb/Creat Ratio 1.5 {mg/g_creat} (Normal) Range: 0.0-30.0 Microalbumin, Urine 2.5 ug/mL (Normal) Range: 0.0-17.0 3-Frl-876362:15 METABOLIC PANEL, COMPREHENSIVE Comments: PATIENT WAS FASTINGPERFORMED BY: ClustrixSaint Barnabas Medical CenterWmgmay9246 [facility] [id number] (91541) A/G Ratio 1.8 (Normal) Range: 1.1-2.5 Alkaline [...] Glucose, Serum 108 mg/dL (Abnormal) Range: 65-99 8-Gwe-411989:15 LIPID PANEL (33673) Comments: PATIENT WAS FASTINGPERFORMED BY: [facility]6370 [facility] [id number] LDL/HDL Ratio 1.8 {ratio_units} (Normal) Range: 0.0-3.6 HDL Cholesterol 49 mg/dL (Normal) Comments: According to ATP-III Guidelines, HDL-C >59 mg/dL is considered anegative risk factor for CHD. LDL Cholesterol Calc 86 mg/dL (Normal) Range: 0-99 VLDL Cholesterol Ezequiel 25 mg/dL (Normal) Range: 5-40 Cholesterol, Total 160 mg/dL (Normal) Range: 100-199 Triglycerides 123 mg/dL (Normal) Range: 0-149 9-Djj-546094:15 CBC WITH MANUAL DIFF Comments: PATIENT WAS FASTINGPERFORMED BY: [employer]70 [facility] [id number] Information: [id number] (30498) Immature Grans (Abs) 0.0 {x10E3/uL} (Normal) Range: [...] (Normal) Range: 4.0-10.5 :53 HgA1C , Office (92513) HgA1C , Office 6.3 % (Normal) Range: 4.6 - 7.1 :53 Blood Glucose , Office (95523) Blood Glucose , Office 123 (Normal) :51 HgA1C , Office (53892) HgA1C , Office 6.2 % (Normal) Range: 4.6 - 7.1 :51 Blood Glucose , Office (87274) Blood Glucose , Office 93 (Normal) 98-Lip-992590:01 Microscopic Examination Comments: PATIENT WAS FASTINGPERFORMED BY: LabCoSaint Barnabas Medical CenterJzudpl3247 [facility] [id number] Bacteria Few (Normal) Mucus Threads Present (Normal) Epithelial Cells (non renal) None seen {/hpf} (Normal) Range: 0 - 10 RBC 0-3 {/hpf} (Normal) Range: 0 - 3 WBC 0-5 {/hpf} (Normal) Range: 0 - 5 09-Ocb-029796: PSA (PROSTATE SPECIFIC Comments: PATIENT WAS FASTINGPERFORMED BY: [employer] [facility] [id number] ANTIGEN) (V76.44) Prostate Specific Ag, 1.4 ng/mL (Normal) Range: 0.0-4.0 Serum Comments: [employer] methodology..According to the [place] [employer], Serum PSA shoulddecrease and remain at undetectable levels after radicalprostatectomy. The AUA defines biochemical recurrence a s an initialPSA value 0.2 ng/mL or greater followed by a subsequent confirmatoryPSA value 0.2 ng/mL or greater.Values obtained with different assay methods or kits cannot be usedinterchangeably. Results cannot be interpreted as absolute evidenceof the presence or absence of malignant disease. : TSH (24853) Comments: PATIENT WAS FASTINGPERFORMED BY: [employer]70 [facility] [id number] TSH 3.670 {uIU/mL} (Normal) Range: 0.450-4.500 75-Opv-470979: URINALYSIS, W/ MICRO (48074) Comments: PATIENT WAS FASTINGPERFORMED BY: [employer]6370 [facility] [id number] Microscopic Examination See below: (Normal) Bilirubin Negative (Normal) Microscopic Examination MICRON (Normal) Comments: Microscopic follows if indicated. Nitrite, Urine Negative (Normal) Urobilinogen,Semi-Qn 0.2 mg/dL (Normal) Range: 0.0-1.9 Glucose Negative (Normal) Ketones Negative (Normal) Occult Blood Negative (Normal) Protein Negative (Normal) WBC Esterase Negative (Normal) Appearance Clear (Normal) pH 6.0 (Normal) Range: 5.0-7.5 Specific Robert 1.024 (Normal) Range: 1.005-1.030 Urine-Color Yellow (Normal) 65-Sah-461659: MICROALBUMIN: CREATININE RATIO Comments: PATIENT WAS FASTINGPERFORMED BY: [employer]70 [facility] [id number] (15494) AND (28624) Microalb/Creat Ratio <.4 {mg/g_creat} (Normal) Range: 0.0-30.0 Microalbumin, Urine <1.0 ug/mL (Normal) Range: 0.0-17.0 Creatinine, Urine 226.9 mg/dL (Normal) Range: 22.0-328.0 37-Axe-826204:01 METABOLIC PANEL, COMPREHENSIVE Comments: PATIENT WAS FASTINGPERFORMED BY: LabSurgeons [facility] Center6370 [facility] [id number] (64673) A/G Ratio 2.0 (Normal) Range: 1.1-2.5 Alkaline [...] Glucose, Serum 93 mg/dL (Normal) Range: 65-99 14-Puy-598691:01 LIPID PANEL (35873) Comments: PATIENT WAS FASTINGPERFORMED BY: ClustrixSaint Barnabas Medical CenterZrwybn3949 [facility] [id number] HDL Cholesterol 46 mg/dL (Normal) Comments: According to ATP-III Guidelines, HDL-C >59 mg/dL is considered anegative risk factor for CHD. LDL Cholesterol Calc 70 mg/dL (Normal) Range: 0-99 LDL/HDL Ratio 1.5 {ratio_units} (Normal) Range: 0.0-3.6 VLDL Cholesterol Ezequiel 18 mg/dL (Normal) Range: 5-40 Cholesterol, Total 134 mg/dL (Normal) Range: 100-199 Triglycerides 89 mg/dL (Normal) Range: 0-149 81-Ruu-390192:01 CBC WITH MANUAL DIFF Comments: PATIENT WAS FASTINGPERFORMED BY: LabCoSaint Barnabas Medical CenterReokcc4004 [facility] [id number] Information: [id number] (53289) Baso (Absolute) 0.0 {x10E3/uL} (Normal) Range: 0.0-0.2 [...] (Normal) Range: 4.0-10.5 :59 HgA1C , Office (28054) HgA1C , Office 6.6 % (Normal) Range: 4.6 - 7.1 :59 Blood Glucose , Office (01448) Blood Glucose , Office 105 (Normal) :29 HgA1C , Office (03339) Comments: done km HgA1C , Office 7.2 % (Abnormal) Range: 4.6 - 7.1 :29 Blood Glucose , Office (39986) Comments: done Blood Glucose , Office 134 (Normal) :04 HgA1C , Office (82057) Comments: done km HgA1C , Office 6.7 % (Normal) Range: 4.6 - 7.1 :04 Blood Glucose , Office (24963) Comments: done Blood Glucose , Office 141 (Normal) :27 TSH (44368) Comments: PATIENT WAS FASTINGPERFORMED BY: ClustrixSaint Barnabas Medical CenterOveicl6135 [facility] [id number] TSH 3.740 {uIU/mL} (Normal) Range: 0.450-4.500 :27 METABOLIC PANEL, COMPREHENSIVE Comments: PATIENT WAS FASTINGPERFORMED BY: InnovaspireSaint Barnabas Medical CenterBwtott2896 [facility] [id number] (17457) A/G Ratio 1.7 (Normal) Range: 1.1-2.5 Albumin, [...] Range: 135-145 25-Oct-20089:27 LIPOPROTEIN, BLD, BY NMR (64941) Comments: PATIENT WAS FASTINGClinical Information: ADD [id number], [id number] PERFORMED BY: [facility]6370 [facility] [id number] Cholesterol, Total 149 mg/dL (Normal) HDL-C 41 [...] mg/dL (Normal) 25-Oct-20089:27 CBC WITH MANUAL DIFF (89320) Comments: PATIENT WAS FASTINGPERFORMED BY: LabCoSaint Barnabas Medical CenterTgisrp9472 [facility] [id number] Baso (Absolute) 0.0 {x10E3/uL} (Normal) Range: 0.0-0.2 [...] (Normal) Range: 4.0-10.5 :55 HgA1C , Office (18546) Comments: done km HgA1C , Office 5.9 % (Normal) Range: 4.6 - 7.1 :55 Blood Glucose , Office (66956) Comments: done km Blood Glucose , Office 115 (Normal) 60-Gkb-889128:10 TSH (64849) Comments: REpeat first week in September; PATIENT NOT FASTINGClinical Information: ADD DRAW FEE 248210 ADD J 01402 PERFORMED BY: InnovaspireSaint Barnabas Medical CenterWsfvus5234 [facility] [id number] TSH 3.800 {uIU/mL} (Normal) Range: 0.450-4.500 14-Kka-507516:48 TSH (48528) Comments: PATIENT WAS FASTINGPERFORMED BY: [employer] Nrhkhg2380 [facility] [id number] TSH 4.538 {uIU/mL} (Abnormal) Range: 0.450-4.500 61-Kqm-767040:48 MICROALBUMIN: CREATININE RATIO Comments: PATIENT WAS FASTINGPERFORMED BY: ClustrixSaint Barnabas Medical CenterXrbfkn[address] [place] [address] [id number] (56597) AND (87101) Creatinine, Urine 370.1 mg/dL (Abnormal) Range: 22.0-328.0 Microalb/Creat Ratio 1.0 {ug/mg_creat} (Normal) Range: 0.0-30.0 Microalbumin, Urine 3.7 ug/mL (Normal) Range: 0.0-17.0 92-Eng-178879:48 METABOLIC PANEL, COMPREHENSIVE Comments: PATIENT WAS FASTINGPERFORMED BY: ClustrixBrian Ville 1527870 [facility] [id number] (70635) A/G Ratio 1.6 (Normal) Range: 1.1-2.5 Albumin, [...] Sodium, Serum 140 mmol/L (Normal) Range: 135-145 44-Gbj-764047:48 CBC WITH MANUAL DIFF (47992) Comments: PATIENT WAS FASTINGClinical Information: ADD DRAW FEE 608839 ADD J 52926 PERFORMED BY: LabLuke Ville 1437770 [facility] [id number] Baso (Absolute) 0.0 {x10E3/uL} (Normal) Range: 0.0-0.2 [...] {x10E3/uL} (Normal) Range: 4.0-10.5 :48 LIPID PANEL (77742) Comments: PATIENT WAS FASTINGPERFORMED BY: [facility]6370 [facility] [id number] Cholesterol, Total 171 mg/dL (Normal) Range: 100-199 HDL Cholesterol 45 mg/dL (Normal) Comments: According to ATP-III Guidelines, HDL-C >59 mg/dL is considered anegative risk factor for CHD. LDL Cholesterol Calc 99 mg/dL (Normal) Range: 0-99 LDL/HDL Ratio 2.2 {ratio_units} (Normal) Range: 0.0-3.6 Triglycerides 133 mg/dL (Normal) Range: 0-149 VLDL Cholesterol Ezequiel 27 mg/dL (Normal) Range: 5-40 11-Krr-539504:24 HgA1C , Office (31088) Comments: done km HgA1C , Office 6.5 % (Normal) Range: 4.6 - 7.1 :24 Blood Glucose , Office (38110) Comments: done Blood Glucose , Office 113 (Normal) :38 HgA1C , Office (99732) Comments: done sylvain HgA1C , Office 6.0 % (Normal) Range: 4.6 - 7.1 :38 Blood Glucose , Office (13955) Comments: done Blood Glucose , Office 132 (Normal) :09 PSA,TOT SCREEN 1.30 ng/mL (Normal) Range: 0.00-4.00 Comments: This test was performed using the TPSA method for theClever chemistry system.Values obtained with different assay methods cannot be usedinterchangably.When changing PSA assays in the course of monito ring apatient, additional sequential testing should be carriedout to confirm baseline values. :00 HgA1C , Office (49165) Comments: done sylvain HgA1C , Office 7.4 % (Abnormal) Range: 4.6 - 7.1 :00 Blood Glucose , Office (67031) Comments: done Blood Glucose , Office 138 (Normal) :32 MYOCARD PERF SPECT REST/STRESS Radiology Report See Note (Normal) Comments: Exam Number: [id number] MYOCARDIAL PERFUSION SCAN TECHNIQUEThe patient was injected [...] of 60%. Reported By: LOUIS CASTILLO M.D. 73-Vfm-862250:27 URINALYSIS W/O MICRO (28863) Comments: PATIENT WAS FASTINGPERFORMED BY: [employer]70 [facility] HospitalipnexusFormerly [facility] [id number] Appearance Clear (Normal) Bilirubin Negative (Normal) Glucose Negative (Normal) Ketones Negative (Normal) Microscopic Examination MICRON (Normal) Comments: Microscopic follows if indicated. Nitrite, Urine Negative (Normal) Occult Blood Negative (Normal) pH 7.5 (Normal) Range: 5.0-7.5 Protein Trace (Normal) Specific Robert 1.023 (Normal) Range: 1.005-1.030 Urine-Color Yellow (Normal) Urobilinogen,Semi-Qn 0.2 mg/dL (Normal) Range: 0.0-1.9 WBC Esterase Negative (Normal) 19-Msg-065406:27 TSH (56192) Comments: PATIENT WAS FASTINGPERFORMED BY: [employer]6370 [facility] [id number] TSH 3.505 {uIU/mL} (Normal) Range: 0.350-5.500 Comments: Adult TSH concentrations below 5.5 uIU/mL do not rule out the presence of subclinical hypothyroidism. :27 MICROALBUMIN URINE QUANT Comments: PATIENT WAS FASTINGPERFORMED BY: [facility]6370 [facility] [id number] (32504) Microalbum.,U,Random 4.4 ug/mL (Normal) Range: 0.0-17.0 :27 METABOLIC PANEL, COMPREHENSIVE Comments: PATIENT WAS FASTINGPERFORMED BY: LabSurgeons [facility] Center6370 [facility] [id number] (29135) A/G Ratio 1.8 (Normal) Range: 1.1-2.5 Albumin, [...] Serum 132 mg/dL (Abnormal) Range: 65-99 If -Libyan >60 mL/min (Normal) Range: 60-137 Comments: Note: [...] Range: 135-145 :27 CBC WITH MANUAL DIFF (21608) Comments: PATIENT WAS FASTINGClinical Information: ADD [id number], ADD [id number] PERFORMED BY: [employer]70 [facility] [id number] Baso (Absolute) 0.0 {x10E3/uL} (Normal) Range: 0.0-0.2 [...] 11.7-15.0 WBC 5.5 {x10E3/uL} (Normal) Range: 4.0-10.5 73-You-180942:27 LIPID PANEL (28900) Comments: PATIENT WAS FASTINGPERFORMED BY: [employer] Vwzszg0183 [facility] [id number] LDL/HDL Ratio 2.4 {ratio_units} (Normal) Range: 0.0-3.6 Cholesterol, Total 212 mg/dL (Abnormal) Range: 100-199 Comment SPRCS (Normal) Comments: If initial LDL-cholesterol result is >100 mg/dL, assess forrisk factors. HDL Cholesterol 52 mg/dL (Normal) Range: 40-59 LDL Cholesterol Calc 123 mg/dL (Abnormal) Range: 0-99 Triglycerides 184 mg/dL (Abnormal) Range: 0-149 VLDL Cholesterol Ezequiel 37 mg/dL (Normal) Range: 5-40 :28 HgA1C , Office (96212) Comments: done HgA1C , Office 6.9 % (Normal) Range: 4.6 - 7.1 :28 Blood Glucose , Office (50718) Comments: done Blood Glucose , Office 157 (Normal) :58 HgA1C , Office (91742) Comments: done HgA1C , Office 6.6 % (Normal) Range: 4.6 - 7.1 :58 Blood Glucose , Office (51558) Comments: done Blood Glucose , Office 136 [...] was performed using the TPSA method for theClever chemistry system.Values obtained with different assay methods cannot be usedinterchangably.When changing PSA assays in the course of monito ring apatient, additionaly sequential testing should be carriedout to confirm baseline values. :29 TSH 3.67 {uIU/mL} (Normal) Range: 0.34-4.82 :39 Blood Glucose , Office (65960) Comments: done km Blood Glucose , Office 98 (Normal) :39 HgA1C , Office (78771) Comments: done km HgA1C , Office 6.5 % (Normal) Range: 4.6 - 7.1 :57 HgA1C , Office (86174) HgA1C , Office 6.5 % (Normal) Range: 4.6 - 7.1 7-Gtz-742948:57 Blood Glucose , Office (38876) Blood Glucose , Office 138 (Normal) :03 HgA1C , Office (56454) HgA1C , Office 6.6 % (Normal) Range: 4.6 - 7.1 8-Gfk-386050:03 Blood Glucose , Office (14211) Blood Glucose , Office 92 (Normal) 59-Ktx-456326:28 LIVER ALB 3.6 g/dL (Normal) Range: 3.4-5.0 ALK P 96 U/L (Normal) Range: 50-136 ALT 47 [iU]/L (Normal) Range: 30-65 AST 20 U/L (Normal) Range: 15-37 D BILI 0.08 mg/dL (Normal) Range: 0.00-0.30 T BILI 0.44 mg/dL (Normal) Range: 0.00-1.00 T PROT 6.9 g/dL (Normal) Range: 6.4-8.2 08-Piy-062024:28 MICROALB:CRE UR MALB:CREAT 8.4 {mg/g_CRE} (Normal) MICROALBUMIN,UR 11.6 mg/L (Normal) UR CREAT 138.8 mg/dL (Normal) 54-Auy-141288:28 PFLIP CHOL 188 mg/dL (Normal) Comments: <200 [...] 1 month- gen med / will need [facility] Indication: Physical exam WITHOUT abnormal [...] from H/O transient cerebral ischemia) : Reviewed Theatre Arts Professor Letter Indication: History of transient cerebral ischemia (Renamed from H/O transient cerebral ischemia) Hypertensive urgency : Reviewed Theatre Arts Professor Letter Indication: Hypertensive urgency Heart disease, hypertensive, [...] Current Prescription(s) Indication: Hypothyroidism Hypothyroidism : Reviewed Theatre Arts Professor Letter Indication: Hypothyroidism Uncontrolled type II diabetes [...] from there Planned Observations T4, FREE (THYROXINE) (52205)Indication: Hypothyroidism On: :48 Request T3, FREE (TRIDOTHYRONINE) (17782)Indication: Hypothyroidism On: :48 Request URINALYSIS, W/ MICRO (50745)Indication: Essential hypertension On: :47 Request MICROALBUMIN: CREATININE RATIO (17125) AND (06425)Indication: Essential hypertension On: :47 Request METABOLIC PANEL, COMPREHENSIVE (14711)Indication: Essential hypertension On: :47 Request CBC W/AUTO DIFF WBC (86627)Indication: Essential hypertension On: :47 Request LIPID PANEL (63173)Indication: Hypercholesterolemia On: :47 Request TSH (80264)Indication: Hypothyroidism On: :47 Request CALCIFIDIOL (85550) VIT D 25Indication: Vitamin D deficiency On: :47 Request Influenza A&B Viral Culture (55298)Indication: Flu-like symptoms On: 6-Cew-340298:53 Request POTASSIUM SERUM (79790)Indication: Potassium disorder On: 90-Klg-487647:53 Request CALCIFEDIOL (38705)Indication: Vitamin D deficiency On: 68-Xco-07322:36 Request TSH (33976)Indication: Hypothyroidism On: 44-Fka-98284:35 Request Lipid Panel (73026)Indication: Hypercholesterolemia On: :34 Request Metabolic Panel, Comprehensive (09402)Indication: Hypercholesterolemia On: 41-Ekn-72773:34 Request URINE VMA (41532)Indication: Hypertensive urgency On: 48-Obo-574615:54 Request Catecholamines,24-Hour Urine (69068)Indication: Hypertensive urgency On: 33-Wom-915724:54 Request RENIN (74747)Indication: Hypertensive urgency On: 52-Wnb-592356:54 Request ALDOSTERONE (75809)Indication: Hypertensive urgency On: 38-Ibd-277912:54 Request METANEPHRINES (42219)Indication: Hypertensive urgency On: 11-Dmk-121291:54 Request CBC (Auto) (12130)Indication: Hypertensive urgency On: 99-Ngm-203389:36 Request Metabolic Panel, Basic (66902)Indication: Hypertensive urgency On: 07-Jwp-275493:36 Request TSH (68343)Indication: Hypertensive urgency On: 50-Nvc-345511:24 Request CBC WITH MANUAL DIFF (61887)Indication: Hypertensive urgency On: 67-Bce-481466:24 Request METABOLIC PANEL, COMPREHENSIVE (90815)Indication: Hypertensive urgency On: 09-Qpk-050989:24 Request Troponin I (88895)Indication: Hypertensive urgency On: 62-Cws-382501:20 Request CPK MB FRACTION (50798)Indication: Hypertensive urgency On: 57-Zjz-870996:20 Request CREATINE KINASE TOTAL (81707)Indication: Hypertensive urgency On: 67-Tnf-676562:20 Request TSH (88991)Indication: Hypothyroidism On: 07-Gia-720257:56 Request HgA1C , Office (73041)Indication: Controlled diabetes mellitus type II without complication On: 62-Nxl-31709:56 Request PSA (PROSTATE SPECIFIC ANTIGEN) (V76.44)Indication: Screening for prostate cancer On: 56-Jpb-79832:20 Request TSH (21077)Indication: Uncontrolled type II diabetes mellitus On: :19 Request URINALYSIS, W/ MICRO (70386)Indication: Uncontrolled type II diabetes mellitus On: :19 Request MICROALBUMIN: CREATININE RATIO (97193) AND (58167)Indication: Uncontrolled type II diabetes mellitus On: :19 Request METABOLIC PANEL, COMPREHENSIVE (66865)Indication: Uncontrolled type II diabetes mellitus On: :19 Request LIPOPROTEIN, BLD, BY NMR (75935)Indication: Uncontrolled type II diabetes mellitus On: :19 Request LIPID PANEL (34333)Indication: Uncontrolled type II diabetes mellitus On: :19 Request CBC WITH MANUAL DIFF (71183)Indication: Uncontrolled type II diabetes mellitus On: :19 Request LIPOPROTEIN, BLD, BY NMR (55667)Indication: Hypercholesterolemia On: :57 Request LIPID PANEL (02446)Indication: Hypercholesterolemia On: :57 Request Comments: do in 3 months LIPID PANEL (85713)Indication: Controlled diabetes mellitus type II without complication On: :22 Request T3, FREE (TRIDOTHYRONINE) (87406)Indication: Abnormal TSH On: :40 Request T4, FREE (THYROXINE) (54938)Indication: Abnormal TSH On: :40 Request TSH (36326)Indication: Abnormal TSH On: :40 Request Comments: do in 2-3 mo TSH (62178)Indication: Controlled diabetes mellitus type II without complication On: 20-Itu-664699:29 Request METABOLIC PANEL, COMPREHENSIVE (11063)Indication: Controlled diabetes mellitus type II without complication On: 21-Hgq-701525:29 Request MICROALBUMIN: CREATININE RATIO (51667) AND (90633)Indication: Controlled diabetes mellitus type II without complication On: :29 Request CBC WITH MANUAL DIFF (69232)Indication: Controlled diabetes mellitus type II without complication On: 64-Pbr-159100:29 Request LIPID PANEL (98495)Indication: Controlled diabetes mellitus type II without complication On: 19-Cvx-224560:29 Request PSA (PROSTATE SPECIFIC ANTIGEN) (V76.44)Indication: Uncontrolled type II diabetes mellitus On: :18 Request LIPID PANEL (21444)Indication: Hypercholesterolemia On: 83-Zow-846017:02 Request HEPATIC FUNCTION PANEL (07355)Indication: Hypercholesterolemia On: 28-Wev-147530:02 Request TSH (52080) On: :45 Request METABOLIC PANEL, COMPREHENSIVE (33047) On: :44 Request LIPID PANEL (23872) On: :44 Request CBC WITH MANUAL DIFF (92619) On: :44 Request PSA (PROSTATE SPECIFIC ANTIGEN) (29498) On: 9-Nas-668708:17 Request Comments: screening TSH (85704) On: Request URINALYSIS W/O MICRO (53480) On: Request MICROALBUMIN URINE QUANT (30972) On: Request LIPID PANEL (74473) On: Request METABOLIC PANEL, COMPREHENSIVE (07206) On: Request CBC WITH MANUAL DIFF (63657) On: Request MICROALBUMIN: CREATININE RATIO (02296) On: Request AND (46819) METABOLIC PANEL, COMPREHENSIVE (46313) On: Request LIPID PANEL (73872) On: Request CBC WITH MANUAL DIFF (62174) On: Request Planned Procedures PNEUM VAC ADLT/IMUMNOSPR, SBC/INTRM On: 07-Feb-2018 Intent (15127)By: Denisa aMcias DO Comments: 0.5 cc given sq lt arm lot [id number] exp 04/21/19 Denisa Macias DO X-RAY OF RIGHT HAND, ONE OR TWO On: 07-Feb-2018 Intent VIEWS (52998)By: Denisa Macias DO Comments: attention to hypothenar area for FB Denisa Macias DO TD VACCINE ADULT (69329)By: Venkata On: 23-Dec-2017 Intent Anne Comments: [id number]/93389.5mlr dltd, IMMLONG Flu Vaccine (Quadrivalent) 64169Sr: On: 28-Nov-2017 Intent Visit, Nurse Comments: Lot #[id number]/30/Site-L dltd, IMDose prefilled syringegiven by: Genna VRAGAS.VIS reviewed and ABN signed X-RAY RIGHT KNEE, 3 VIEWS (42292)By: On: 31-Jul-2017 Intent Denisa Macias DO, DO, Kathleen Radiology - Knee - Right - Weight On: 31-Jul-2017 Intent BearingBy: Denisa Macias DO, DO, Kathleen ELECTROCARDIOGRAM, COMPLETE (ECG) On: 31-Jul-2017 Intent (18821)By: Denisa Macias DO Comments: nsr no acute chg Denisa Macias DO CT - Brain/Head (IV Contrast On: 31-Dec-2016 Intent Needed)By: Denisa Macias DO, DO, Kathleen Echo CompleteBy: Denisa Macias DO On: 31-Dec-2016 Intent Denisa Macias DO EUBY-IJ-DGAQ BEHAVIORAL COUNSELING On: 31-Dec-2016 Intent FOR OBESITY, 15 MINUTES (G0447)By: Denisa Macias DO, DO, Kathleen Flu Vaccine (Quadrivalent) 93308Nw: On: 17-Dec-2016 Intent Denisa Macias DO, DO, Comments: Lot:[id number]:09/09/17Amt:0.5mlRoute:IMSite: L DltdGiven By: YURY Valdez signed Denisa MAGNETIC RESONANCE ANGIOGRAPHY OF On: 24-Sep-2016 Intent CAROTID AND VERTEBRAL VESSELS (48608)By: Denisa Macias DO, DO, Kathleen ELECTROCARDIOGRAM, COMPLETE (ECG) On: 24-Sep-2016 Intent (14901)By: Denisa Macias DO Comments: sinus gabby no acute chg- on BB Denisa Macias DO Renal Duplex ScanBy: Colleen GARCIA, On: 24-Sep-2016 Intent Denisa Valladares DO ELECTROCARDIOGRAM, COMPLETE (ECG) On: 10-Sep-2016 Intent (66902)By: Denisa Macias DO Comments: sinus gabby no acute chg Denisa Macias DO CT HEAD OR BRAIN WO CONTRAST On: 21-May-2016 Intent (80472)By: Denisa Macias DO, DO, Kathleen Flu Vaccine (Quadrivalent) 62018Us: On: 23-Dec-2015 Intent Emeka Levin Comments: FLUlot: [id number]:08/08site:Lt deltoidroute:IMdose:.5mlDEMICK, [place] Echo CompleteBy: Denisa Macias DO On: 24-Oct-[address] SCAN OF CHEST WITH CONTRAST On: 24-Oct-2015 Intent ([id number])By: Denisa Macias DO, DO, Kathleen CT - Chest (IV Contrast Needed)By: On: 20-Jun-2015 Intent Denisa Macias DO, DO, Kathleen Echo CompleteBy: Denisa Macias DO On: 21-Feb-2015 Intent Denisa Macias DO Flu Vaccine (Quadrivalent) [id number]: On: 05-Jan-2015 Intent Denisa Macias DO, DO, Comments: lot [id number]: 09/22/2015site/route L rafa, IMamt 0.5mlVIS and ABN signed when applicableChelsea, CMA4 Denisa ELECTROCARDIOGRAM, COMPLETE (ECG) On: 16-Nov-2014 Intent ([id number])By: Denisa Macias DO Comments: nsr no acute changes - Denisa Macias DO Prevnar 13 ([id number])By: Colleen GARCIA, On: 10-May-2014 Intent Denisa Valladares DO Comments: Lot:[id number]:08/07Dose:0.5mgRoute:imSite:l armGiven By:MIGUEL ÁNGEL signed Inhaler Demonstration ([id number])By: On: 23-Mar-2014 Intent Hayley Stone CNP ADMINISTRATION OF INFLUENZA VIRUS On: 25-Dec-2013 Intent VACCINE ([id number])By: Visit, Nurse Comments: Lot #[id number]-L dltd, IMDose prefilled syringegiven by:YURY Seymour and ABN signed FLU VAC, SPLIT, >3 YEARS, INTRAMUSC On: 25-Dec-2013 Intent ([id number])By: Visit, Nurse EKG ([id number])By: Denisa Macias DO On: 08-Oct-2013 Intent Denisa [...] PNEUM VAC ADLT/IMUMNOSPR, SBC/INTRM On: 19-Dec-2012 Intent ([id number])By: Marge Smith Comments: Lot:[id number]:10/25/13Dose:0.5mgRoute:imSite:r armGiven By:MIGUEL ÁNGEL signed ADMINISTRATION OF PNEUMOCOCCAL On: 19-Dec-2012 Intent VACCINE ([id number])By: Marge Smith FLU VAC, SPLIT, >3 YEARS, INTRAMUSC On: 17-Dec-2012 Intent ([id number])By: Anne Edge LPN Comments: Lot:[id number]:6.14Amt:0.5mlRoute:IMSite: L DltdGiven By: YURY Valdez signed Eprescribed prescriptions ([id number])By: On: 17-Dec-2012 Intent Anne Edge LPN Eprescribed prescriptions ([id number])By: On: 15-Sep-2012 Intent Anne Edge LPN Renal Artery DopplerBy: Colleen DO, On: 08-Aug-2012 Intent Denisa Valladares DO MRI - BrainBy: Colleen DODenisa On: 04-Aug-[address] - Brain/HeadBy: Colleen DO, On: 04-Aug-2012 Intent Denisa Colleen DODenisa Echo CompleteBy: Colleen DO Denisa On: 04-Aug-2012 Intent Colleen DODenisa Carotid DopplerBy: Colleen DO, On: 04-Aug-2012 Intent Denisa Colleen DODenisa EKG ([id number])By: ColleenDenisa pratt DO On: 28-Jul-2012 Intent Denisa Macias DO Comments: nsr no acute changes Echo CompleteBy: Colleen DOInesDenisa On: 21-Mar-2012 Intent Colleen DODenisa Echo CompleteBy: Colleen DO Denisa On: 19-Mar-2012 Intent Denisa Macias DO Eprescribed prescriptions ([id number])By: On: 13-Mar-2012 Intent Anne Edge LPN Eprescribed prescriptions ([id number])By: On: 31-Dec-2011 Intent Denisa Macias DO, DO, Kathleen Nuclear Medicine - HIDA w/CPKBy: On: 19-Dec-2011 Intent Ciesa APPLICATION TECHNICIAN, Supriya EKG ([id number])By: Denisa Macias DO On: 13-Dec-2011 Intent Denisa Macias DO Comments: nsr no acute chg Ultrasound - GallbladderBy: Colleen On: 29-Nov-2011 Intent Denisa GARCIA DO, Kathleen Eprescribed prescriptions ([id number])By: On: 29-Nov-2011 Intent Anne Edge LPN FLU VAC, SPLIT, >3 YEARS, INTRAMUSC On: 27-Nov-2011 Intent ([id number])By: Marissa Palomino LPN Comments: Lot #[id number]/30/13Site-left deltoidgiven by: Todd Palomino LPN ADMINISTRATION OF INFLUENZA VIRUS On: 27-Nov-2011 Intent VACCINE ([id number])By: Marissa Palomino LPN MRI - Lumbar Spine (IV Contrast On: 26-Jan-2011 Intent Needed)By: Denisa Macias DO, DO, Kathleen EKG ([id number])By: Denisa Macias DO On: 05-Jan-2011 Intent Denisa Macias DO Comments: nsr no acute chg Cartoid DopplerBy: Colleen GARCIA, On: 05-Jan-2011 Intent Denisa Valladares DO EKG ([id number])By: Denisa Macias DO On: 06-Dec-2010 Intent Denisa Macias DO Comments: nsr no acute chgn- Bio Z ([id number])By: Denisa Macias DO On: 06-Dec-2010 Intent Denisa Macias DO Comments: stabel parameters- no chg in rx IMMUNIZ ADMNIN, 1 VAC, SNGL/COMBO On: 06-Dec-2010 Intent ([id number])By: Denisa Macias DO, DO, Kathleen FLU VAC, SPLIT, >3 YEARS, INTRAMUSC On: 06-Dec-2010 Intent ([id number])By: Denisa Macias DO, DO, Kathleen TDAP VACCINE >7 IM ([id number])By: Colleen On: 30-Aug-2010 Denisa Izquierdo DO, DO, Kathleen Comments: Lot #[id number]/25/13Site-left deltoidgiven by: Todd Palomino LPN ADMINISTRATION OF INFLUENZA VIRUS On: 27-Dec-2009 Intent VACCINE (G0008)By: Edilia Vasquez LPN FLU VAC, SPLIT, >3 YEARS, INTRAMUSC On: 27-Dec-2009 Intent ([id number])By: Edilia Vasquez LPN Comments: Lot #[id number] 4PExp-07/03Site-L armDose0.5mlgiven by: EKG ([id number])By: Denisa Macias DO On: 15-Nov-2009 Intent Denisa Macias DO Comments: nsr no acute changes MRI - Shoulder(s) - LeftBy: Colleen On: 11-May-2009 Intent Denisa GARCIA DO, Kathleen Bio Z ([id number])By: Denisa Macias DO On: 25-Oct-2008 Intent Denisa Macias DO Comments: NORMAL SVR AND CO EKG ([id number])By: Denisa Macias DO On: 25-Oct-2008 Intent Denisa Macias DO Comments: NSR NO ACUTE CHANGES Bio Z ([id number])By: Denisa Macias DO On: 04-Jun-2008 Intent Denisa Macias DO Comments: normal IMMUNIZ ADMNIN, 1 VAC, SNGL/COMBO On: 05-Jan-2008 Intent ([id number])By: Denisa Macias DO, DO, Kathleen FLU VAC, SPLIT, >3 YEARS, INTRAMUSC On: 05-Jan-2008 Intent ([id number])By: Denisa Macias DO, DO, Kathleen Bio Z ([id number])By: Denisa Macias DO On: 07-Nov-2007 Intent Denisa Macias DO Comments: normal svr and co Nuclear Stress Test/Stress On: 15-Sep-2007 Intent SPECT/TreadmillBy: Colleen GARCIA, Comments: [facility] Denisa Valladares DO Echo CompleteBy: Denisa Macias DO On: 07-Aug-2007 Intent Denisa Macias DO Cartoid DopplerBy: Colleen DO, On: 07-Aug-2007 Intent Denisa Valladares DO EKG ([id number])By: Denisa Macias DO On: 07-Aug-2007 Intent Denisa Macias DO Comments: nsr no acute ischemic changes EKG ([id number])By: Denisa Macias DO On: 29-Nov-2006 Intent Denisa [...] The patient does have durable power of consumer attorney and living will. The patient has [...] social history. Yes the patient did have ([facility] /30wisper 05/25) a mini mental status [...] The patient does have durable power of consumer attorney and living will. The patient has noticed nothing from the geriatic depression scale. Other providers contributing to the patient's care are grease man (dr zayas) and other: ([facility], vision test up to date).Encounter Diagnosis: [...] in bathroom. The patient has completed the [facility] preventative measures: PSA testing (2011) and colonoscopy (2011). The patient does have durable power of consumer attorney and living will. The patient has noticed nothing from the geriatic depression scale . Other providers contributing to the patient's care are grease man (Dr. Antonio) and surgeon (Dr. Negro -- [...] criselda toscano does have durable power of consumer attorney and living will. The patient has noticed nothing from the geriatic depression scale. Other providers contributing to the patient's care are material liaison and other: (animal care provider, ENT). Encounter Diagnosis: Type II Diabetes,controlled (250.00), [...]
--- OUTSIDE RECORDS SUMMARY | 2018-06-16 21:54 | XMS RPT_ITS | Continuity of Care Document ---
:1945 External Reference #:[id number] Author Organization [facility] Address [address] [facility] [address] [place] [address] Phone Care Team Providers Name Role Phone [...] not in neptali anymore so we will machine pecan picker ball Status: Active TUBULOVILLOUS ADENOMA, NOS Comments: [...] DO, Kathleen Start : 27-Dec-2016 Active Pen Mimbres 16 31G X 8 MM Miscellaneous 1 [...] (External Solution) uad (10 %) Inactive Comments:[employer] [place] Levitra 10 MG Oral Tablet 1 Tablet [...] days Quantity: 90 {Tablet} Refills: 3 Ordered:31-Jul-2017 nAne Edge LPN Start : 08-Oct-2013 End : [...] : 15-May-2017 End : 31-Jul-2017 Inactive ASPIRIN BUF(MKBBEB-LBXCLN-QFD), 325MG (Oral Tablet) 1 (one) Tablet Daily [...] 2 Views Result: Comments: See Note; NOTES: [facility] Imaging Services [address] [place] [address] Hand 2 Views MR#: [id number] Acct: [id number] Name: YOHANNES CADET Rep #: [id number] : 0 1945 M 72 From: Morales Perla MD PCP: Denisa Macias DO Status: REG CLI Study: Hand 2 Views Date of Exam: 02/07/18 Exam# [id number] Ordering Dr: Denisa Macias DO STUDY: X-RAY [...] Service support , CC: Denisa Macias DO Upholsterer Inside: Signed 05-Dec-2016 PT D/C Summary (1) Result: Comments: See Note; NOTES: [facility] Physical Therapy [facility] [address] [place] [address] Fax REHABILITATION SERVICES DISCHAR SUMMARY MR#: [id number] Acct: [id number] Name: YOHANNES CADET Rep #: [id number] : 1945 71 From: Aftab Mendez PT, ATC Referring Dr.: Nik Ch DPM Status: REG RCR Insurance: MEDIC ARE PART A B [employer] - PT D/C Summary It has [...] please feel free to call me at [phone]. Thank you for the referral of this patient. Sincerely, Aftab Mendez, PT, <Electronically signed by Aftab Mendez PT, ATC> 12/05/16 1100 CC: Nik valdes DPM; Denisa Colleen DO [facility] Signed 09-Oct-2016 Inital Evaluation (1) - PT Result: Comments: See Note; NOTES: [facility] Physical Therapy [facility] [address] [place] [address] Fax REHABILITATION SERVICES INITIAL EVALUATION MR#: [id number] Acct: [id number] Name: YOHANNES CADET Rep #: [id number] : 1945 71 From: Aftab Mendez PT, ATC Referring Dr.: Nik Ch DPM Status: REG RCR Insurance: [place] PART A B [employer] Patient's Visit Information YOHANNES CADET is a [...] to be FAXED BACK to us at [phone] for Medicare purposes. Please let me know if there are questions or concerns regarding this plan of care. Physician Signature: Date: <Electronically signed by Aftab Mendez PT, ATC> 1001 CC: Nik Ch DPM; Denisa Macias DO [facility] Signed For Medicare only, by signing this I certify the plan of care. Physicians Signature Date 21-May-2016 Brain/Head without Contrast Result: Comments: See Note; NOTES: [facility] Imaging Services [address] [place] [address] Verdana 4d Brain/Head without Contrast MR#: [id number] Acct: [id number] Name: YOHANNES CADET Rep #: [id number] : 1945 M 70 From: Sincere Solorio DO PCP: Denisa Macias DO Status: REG CLI Study: Brain/Head without Contrast Date of Exam: 05/21/16 Exam# [id number] Ordering Dr: Denisa Macias DO STUDY: CT [...] at 14:26 EST Tel , Service support [phone], CC: Denisa Macias DO Upholsterer Inside: Signed 14-Nov-2015 Echocardiogram Complete Result: Comments: See Note; NOTES: [facility] Cardiovascular Services [address] [place] [address] Echo Complete 11/14/15 1303 MR#: [id number] Acct: [id number] Name: YOHANNES CADET Rep #: [id number] : 1945 70 From: Layo Raymond MD Attending Dr: Denisa Macias DO Status: REG CLI Ordering Dr: Denisa Macias DO Date: 11/14/15 Location: [facility] Sex: M C Admitted: Reason Fo [...] Dictated: 10/24 05/10 1303 Date Transcribed: 11/14/151648 Upholsterer Inside: Signed 14-Nov-2015 Chest WITH Contrast Result: Comments: See Note; NOTES: [facility] Imaging Services [address] [place] [address] Verdana 4d Chest WITH Contrast MR#: [id number] Acct: [id number] Name: YOHANNES CADET Rep #: [id number] : 1945 M 70 From: Asia Peres MD PCP: Denisa Macias DO Status: REG CLI Study: Chest WITH Contrast Date of Exam: 11/14/15 Exam# [id number] Ordering Dr: Denisa Macias TUDY: CT CHEST [...] MD at 2:25 EDT , Service support [phone], CC: Denisa Macias DO Upholsterer Inside: Signed 24-Oct-2015 ELECTROCARDIOGRAM, COMPLETE (ECG) (71317) Comments: sinus gabby - no acute chg - same as old and on BB Result: [MEASUREMENTS ANALYSIS] Date of Test: 10/24/2015 09:30:26; Heart Rate: 55; FL Interval: 184; QRS: 105; QT Interval: 404; Corrected QT Interval (QTc): 396; P Wave Warren: 26; QRS Wave Warren: 27; T Wave Warren : 34; Blood Pressure: 138/70 [ECG DIAGNOSTIC STATEMENTS] Date of Test: 10/24/2015 09:30:26; Summary: Sinus Bradycardia WITHIN NORMAL LIMITS 29-Sep-2015 Knee 4 or More Views Result: Comments: See Note; NOTES: [facility] Imaging Services [address] [place] [address] Verdana 4d Knee 4 or More Views MR#: [id number] Acct: [id number] Name: YOHANNES CADET Rep #: [id number] : 1945 M 70 From: Tripp Miller MD PCP: Denisa Macias DO Status: REG CLI Study: Knee 4 or More Views Date of Exam: 09/29/15 Exam# [id number] Ordering Dr: Carrol Bautista DO STUDY: X-RAY [...] FACR at 9:18 EDT , Service support [phone], RAD/Knee 4 or More Views IMPRESSION: Moderate arthrosis of the patellofemoral joint Electronically Signed: Tripp Miller MD, FACR at 9:18 EDT , Service support [phone], CC: Carrol Kirkpatrick DO; Denisa Macias DO Upholsterer Inside: Signed 27-Oct-2013 PT Discharge Summary Result: Comments: See Note; NOTES: [facility] Physical Therapy [address] [place] [address] Fax REHABILITATION SERVICES DISCHARGE SUMMARY MR#: [id number] Acct: [id number] Name: YOHANNES CADET Rep #: [id number] : 1945 68 From: Baljit Silva Referring [...] referral. Baljit Silva, PT T: GI JOB: [id number] <Electronically signed by Baljit pantoja > 10/27/13 0758 CC: Signed 27-Jul-2013 Inital Evaluation - PT Result: Comments: See Note; NOTES: [facility] [address] [place] [address]. 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 His goals are to find [...] We discussed with patient possibly using the dxvs-bfb-vzonpzs orthotics before he considers fabricated orthotics due to cost. Uzair Silva PT T: GI JOB: [id number] <Electronically signed by Baljit Silva > 07/27/13 1802 CC: Signed For Medicare only, by signing this I c ertify the plan of care. Physicians Signature Date 09-Jul-2013 Hip min 2 Views Result: Comments: See Note; NOTES: [facility] Imaging Services [address] [place] [address] Radiology Report MR#: [id number] Acct: [id number] Name: YOHANNES CADET Rep #: [id number] : 1945 67 From: Jakob Hunt MD PCP: Denisa Macias DO Status: REG CLI Study: Hip min 2 Views Date of Exam: 07/09/13 Exam# [id number] Ordering Dr: Denisa Macias DO STUDY : [...] Jakob Hunt MD at 14:44 EDT Tel [phone], Service support [phone], Fax CC: Denisa Macias DO Upholsterer Inside: Signed 09-Jul-2013 Pelvis 1 or 2 Views Result: Comments: See Note; NOTES: [facility] Imaging Services [address] [place] [address] Radiology Report MR#: [id number] Acct: [id number] Name: YOHANNES CADET Rep #: [id number] : 1945 M 67 From: Jakob Hunt MD PCP: Denisa Macias DO Status: REG CLI Study: Pelvis 1 or 2 Views Date of Exam: 07/09/13 Exam# [id number] Ordering Dr: Denisa Macias TUDY: X-RAY - [...] Jakob Hunt MD at 13:32 EDT Tel [phone], Service support [phone], CC: Denisa Macias DO Upholsterer Inside: Signed 09-Jul-2013 EKG (07931) Comments: nsr no acute chg - ant leads are old Result: [MEASUREMENTS ANALYSIS] Date of Test: 07/09/2013 08:48:02; Heart Rate: 57; FL Interval: 164; QRS: 106; QT Interval: 408; Corrected QT Interval (QTc): 403; P Wave Warren: 25; QRS Wave Warren: 60; T Wave Warren : 62; Blood Pressure: 138/68 [ECG DIAGNOSTIC [...] Calculated 2.27 m2 :15 Comments: eye-Dr at [facility] 2013hearing -wnl Pulse 57 /min Comments: Pattern: [...] 0.00 cm Results Date Description Value Details 60-Ihj-867582:59 HgA1C , Office (97652) HgA1C , Office 7.2 % (Abnormal) Range: 4.6 - 7.1 65-Qnm-313020:59 Blood Glucose , Office (37706) Blood Glucose , Office 128 (Normal) 7-Wmv-730016:20 Microscopic Examination Comments: PATIENT WAS FASTINGPERFORMED BY: [employer] [address] [id number] BY: [employer] F[address]sea[address] [place] [address] [id number] Bacteria None seen (Normal) Mucus Threads Present (Normal) Epithelial Cells (non renal) None seen {/hpf} (Normal) Range: 0 - 10 RBC None seen {/hpf} (Normal) Range: 0 - 2 WBC 0-5 {/hpf} (Normal) Range: 0 - 5 2-Guz-176253:20 CALCIFIDIOL (80252) VIT D Comments: PATIENT WAS FASTINGPERFORMED BY: [employer] [address] [id number] BY: [employer] Uybgua2036 [facility] [id number] 25 Vitamin D, 25-Hydroxy 55.7 ng/mL (Normal) Range: 30.0-100.0 Comments: Vitamin D deficiency has been defined by the [place] of[place]icine and an Endocrine Society practice guideline as alevel of serum 25-OH vitamin D less than 20 ng/mL (1,2).The Endocrine Society went on to further define vitamin Dinsufficiency as a level between 21 and 29 ng/mL (2).1. IOM ([place] of Medicine). 2010. Dietary reference intakes for calcium and D. [place]: The National Academies Press.2. Charles MF, Raissa OCONNELL, Nirmala ALBERT, et al. Evaluation, treatment, and prevention of vitamin D deficiency: an Endocrine Society clinical practice guideline. JCEM. 2010; 96(7):1911-30. 1-Lft-946800:20 TSH (09587) Comments: PATIENT WAS FASTINGPERFORMED BY: [employer] [id number] BY: [facility] WellnessKessler Institute for RehabilitationAqknhr9412 [facility] [id number] TSH 2.360 {uIU/mL} (Normal) Range: 0.450-4.500 1-Fib-774654:20 URINALYSIS, W/ MICRO Comments: PATIENT WAS FASTINGPERFORMED BY: [employer] LabRyposrp [address] [id number] BY: [employer] LabRyposKessler Institute for RehabilitationFlbucw6726 [facility] [id number] (66168) Microscopic Examination See below: (Normal) Comments: Microscopic was indicated and was performed. Microscopic Examination MICRON (Normal) Comments: Microscopic follows if indicated. Nitrite, Urine Negative (Normal) Urobilinogen,Semi-Qn 0.2 mg/dL (Normal) Range: 0.2-1.0 Bilirubin Negative (Normal) Occult Blood Negative (Normal) Ketones Negative (Normal) Glucose Negative (Normal) Protein Negative (Normal) WBC Esterase Negative (Normal) Appearance Clear (Normal) Urine-Color Yellow (Normal) pH 5.0 (Normal) Range: 5.0-7.5 Specific Patrick 1.019 (Normal) Range: 1.005-1.030 3-Tvv-798415:20 MICROALBUMIN: CREATININE Comments: PATIENT WAS FASTINGPERFORMED BY: [place]uvotronicsMary [place] [address] [facility] [id number] BY: [facility]-Fi WellnessLori [place] 9826470 [facility] [id number] RATIO (61881) AND (82493) Alb/Creat Ratio <2.4 {mg/g_creat} (Normal) Range: 0.0-30.0 Comments: Normal: 0.0 - 30.0 Albuminuria: 31.0 - 300.0 Clinical albuminuria: >300.0 Albumin, Urine <3.0 ug/mL (Normal) Creatinine, Urine 123.5 mg/dL (Normal) 4-Oja-525666:20 METABOLIC PANEL, Comments: PATIENT WAS FASTINGPERFORMED BY: [employer] [id number] BY: [facility] WellnessKessler Institute for RehabilitationWvvqmb8389 [facility] [id number] COMPREHENSIVE (53020) ALT (SGPT) 22 [iU]/L (Normal) Range: 0-44 [...] 8-27 Glucose 156 mg/dL (Abnormal) Range: 65-99 3-Wzm-696424:20 CBC W/AUTO DIFF WBC Comments: PATIENT WAS FASTINGPERFORMED BY: BN [facility] Ebbondsiet2260 [facility] [id number] BY: CB [facility] Tgprhs2340 [facility] [id number] (56650) Immature Grans (Abs) 0.0 {x10E3/uL} (Normal) Range: [...] 4.14-5.80 WBC 5.8 {x10E3/uL} (Normal) Range: 3.4-10.8 6-Qqr-495642:20 LIPOPROTEIN, BLD, BY NMR Comments: PATIENT WAS FASTINGPERFORMED BY: BN [facility] Kpfuoqixyv1951 [facility] [id number] BY: CB [facility] Fufjxo3053 [facility] [id number] (43480) LP-IR Score 66 (Abnormal) Comments: INSULIN RESISTANCE MARKER <--Insulin Sensitive Insulin Resistant--> Percentile in Reference PopulationInsulin Resistance ScoreLP-IR Score Low 25th 50th 75th High <27 27 45 63 >63LP-IR Score is inaccurate if patient is non-fasting. .The LP-IR score is a laboratory developed i [facility] that has beenassociated with insulin [...] 1600 - 2000 Very High > 2000 38-Qts-912716:40 HgA1C , Office (41440) HgA1C , Office 6.6 % (Normal) Range: 4.6 - 7.1 40-Tyn-762557:40 Blood Glucose , Office (55015) Blood Glucose , Office 75 (Normal) 70-Npa-677498:20 COLON BIOPSY (CHOOSE See Note (Normal) Comments: [facility] Bxrnawzwah8462 [facility]. [place], [place], [address] SITE) Comments: Patient: YOHANNES CADET : 1945 (72/M) Acct Num: [id number] Phys: FroydariusMg Unit Num: [id number] Loc: LABSPEC Specimen: [id number] Received: 09/20/171532 Spec Type: C OLON BX TISSUES TISSUES: Rectum, NOS GROSS DESCRIPTION Received in fixative is one container labeled with the patient's name and designated rectal polyp. The specimen predominantly consists of fecal material mixed with possible soares soft tissue, measuring in aggregate 2.5 x 0.6 x0.1 cm. The specimen is totally submitted in one cassette. BIJU:scott 09/23/17 TC: cannot code CPT: 17141 HEADER OPERATION: Colonoscopy with polypectomy PRE-OP DIAGNOSIS: Rectal bleeding TISSUE SUBMITTED: Rectal polyp MICROSCOPIC DESCRIPTION Slides are reviewed. MICROSCOPIC DIAGNOSIS Rectal polyp, polypectomy: Fragments of fecal material. Colonic mucosal tissue is not identified. BIJU:scott 09/24/18 Signed Magdy Purvis 09/24/17 <signature on file> 77-Chu-904651:08 Microscopic Examination Comments: PATIENT WAS FASTINGPERFORMED BY: [employer] [facility] Gwqaxe8786 [address]ado RoadDublin [place] [id number] Bacteria None seen (Normal) Mucus Threads Present (Normal) Epithelial Cells (non renal) None seen {/hpf} (Normal) Range: 0 - 10 RBC None seen {/hpf} (Normal) Range: 0 - 2 WBC 0-5 {/hpf} (Normal) Range: 0 - 5 71-Zcb-482186:08 T4, FREE (THYROXINE) (32351) Comments: PATIENT WAS FASTINGPERFORMED BY: [employer] [facility] Dqahot9476 [address] [facility]urg[facility] HospitalDublin [place] [id number] T4,Free(Direct) 1.27 ng/dL (Normal) Range: 0.82-1.77 :08 T3, FREE (TRIDOTHYRONINE) (92306) Comments: PATIENT WAS FASTINGPERFORMED BY: [facility] [facility] Sxeoba0752 [address]ado RoadDublin [place] [id number] Triiodothyronine,Free,Serum 2.7 pg/mL (Normal) Range: 2.0-4.4 27-Yjh-571781:08 CALCIFIDIOL (31502) VIT D 25 Comments: PATIENT WAS FASTINGPERFORMED BY: [facility] Weragl0179 Rosado RoadDublin [place] [id number] Vitamin D, 25-Hydroxy 57.4 ng/mL (Normal) Range: 30.0-100.0 Comments: Vitamin D deficiency has been defined by the [place] of[place]icine and an Endocrine Society practice guideline as alevel of serum 25-OH vitamin D less than 20 ng/mL (1,2).The Endocrine Society went on to further define vitamin Dinsufficiency as a level between 21 and 29 ng/mL (2).1. IOM ([place] of Medicine). 2010. Dietary reference intakes for calcium and D. [place]: The National Academies Press.2. Charles MF, Raissa [place], Nirmala ALBERT, et al. Evaluation, treatment, and prevention of vitamin D deficiency: an Endocrine Society clinical practice guideline. JCEM. 2010; 96(7):1911-30. 76-Uiu-146708:08 TSH (56627) Comments: PATIENT WAS FASTINGPERFORMED BY: [facility]6370 [facility] [id number] TSH 3.370 {uIU/mL} (Normal) Range: 0.450-4.500 69-Qwu-192917:08 URINALYSIS, W/ MICRO (77687) Comments: PATIENT WAS FASTINGPERFORMED BY: [facility]6370 [facility] [id number] Microscopic Examination See below: (Normal) Comments: Microscopic was indicated and was performed. Microscopic Examination MICRON (Normal) Comments: Microscopic follows if indicated. Nitrite, Urine Negative (Normal) Urobilinogen,Semi-Qn 0.2 mg/dL (Normal) Range: 0.2-1.0 Bilirubin Negative (Normal) Occult Blood Negative (Normal) Ketones Negative (Normal) Glucose Negative (Normal) Protein Negative (Normal) WBC Esterase Negative (Normal) Appearance Clear (Normal) Urine-Color Yellow (Normal) pH 5.0 (Normal) Range: 5.0-7.5 Specific Patrick 1.026 (Normal) Range: 1.005-1.030 63-Psa-815538:08 MICROALBUMIN: CREATININE RATIO Comments: PATIENT WAS FASTINGPERFORMED BY: [facility]6370 [facility] [id number] (44349) AND (12562) Alb/Creat Ratio 1.3 {mg/g_creat} (Normal) Range: 0.0-30.0 Albumin, Urine 3.1 ug/mL (Normal) Creatinine, Urine 237.2 mg/dL (Normal) 78-Rvd-474732:08 METABOLIC PANEL, COMPREHENSIVE Comments: PATIENT WAS FASTINGPERFORMED BY: [facility]6370 [facility] [id number] (72835) ALT (SGPT) 17 [iU]/L (Normal) Range: 0-44 [...] 8-27 Glucose 142 mg/dL (Abnormal) Range: 65-99 13-Cdw-524530:08 CBC W/AUTO DIFF WBC (70535) Comments: PATIENT WAS FASTINGPERFORMED BY: LabCoKessler Institute for RehabilitationBpuvsx1814 [facility] [id number] Immature Grans (Abs) 0.0 {x10E3/uL} (Normal) Range: [...] {x10E3/uL} (Normal) Range: 3.4-10.8 :08 LIPID PANEL (28220) Comments: PATIENT WAS FASTINGPERFORMED BY: [facility]6370 [facility] [id number] LDL/HDL Ratio 1.2 {ratio} (Normal) Range: 0.0-3.6 [...] (Normal) Range: 100-199 :08 HgA1C , Office (49249) HgA1C , Office 6.9 % (Normal) Range: 4.6 - 7.1 :08 Blood Glucose , Office (62225) Blood Glucose , Office 123 (Normal) 1-Wap-866391:23 Blood Glucose , Office (37029) Blood Glucose , Office 69 (Normal) :23 HgA1C , Office (56435) HgA1C , Office 7.1 % (Normal) Range: 4.6 - 7.1 7-Upk-585557:23 Blood Glucose , Office (34170) Blood Glucose , Office 84 (Normal) 01-Avm-695401:06 Microscopic Examination Comments: PATIENT WAS FASTINGPERFORMED BY: [facility] WellnessKessler Institute for RehabilitationTsqntv3170 [facility] [id number] Bacteria Few (Normal) Mucus Threads Present (Normal) Epithelial Cells (non renal) None seen {/hpf} (Normal) Range: 0 - 10 RBC 0-2 {/hpf} (Normal) Range: 0 - 2 WBC 0-5 {/hpf} (Normal) Range: 0 - 5 8-Iqb-083852:25 Methymalonic Acid, Serum Comments: PATIENT NOT FASTINGPERFORMED BY: [facility] [facility] [id number] BY: [employer] [id number] (35035) Methylmalonic Acid, Serum 586 nmol/L (Abnormal) Range: 0-378 8-Bga-215976:25 METABOLIC PANEL, Comments: PATIENT NOT FASTINGPERFORMED BY: [employer] [facility] [id number] BY: [employer] [id number] Inf ormation: [id number], [id number] COMPREHENSIVE (44518) ALT (SGPT) 11 [iU]/L (Normal) Range: 0-44 [...] Glucose, Serum 153 mg/dL (Abnormal) Range: 65-99 1-Kdn-074732:25 CBC (AUTO) (75702) Comments: PATIENT NOT FASTINGPERFORMED BY: [employer] J[address] [place] [address] [id number] BY: [employer] [id number] Platelets 213 {x10E3/uL} (Normal) Range: 150-379 RDW 14.0 % (Normal) Range: 12.3-15.4 MCHC 33.2 g/dL (Normal) Range: 31.5-35.7 MCH 27.5 pg (Normal) Range: 26.6-33.0 MCV 83 fL (Normal) Range: 79-97 Hematocrit 38.2 % (Normal) Range: 37.5-51.0 Hemoglobin 12.7 g/dL (Normal) Range: 12.6-17.7 RBC 4.62 {x10E6/uL} (Normal) Range: 4.14-5.80 WBC 4.6 {x10E3/uL} (Normal) Range: 3.4-10.8 6-Fjw-103879:25 TSH (65333) Comments: PATIENT NOT FASTINGPERFORMED BY: [employer] [id number] BY: [employer] [id number] TSH 3.040 {uIU/mL} (Normal) Range: 0.450-4.500 5-Ibx-467084:25 VITAMIN B-12 (CYANOCOBALAMIN) Comments: PATIENT NOT FASTINGPERFORMED BY: CB [facility] Kihgnu7982 [address]ado RoadDublin [place] [id number] BY: [facility] [id number] (60387) Vitamin B12 227 pg/mL (Normal) Range: 211-946 2-Glx-255723:25 PSA (PROSTATE SPECIFIC Comments: PATIENT NOT FASTINGPERFORMED BY: CB [facility] Etieki2469 Rosado RoadDublin [place] [id number] BY: [facility] [id number] ANTIGEN) (V76.44) Prostate Specific Ag, 2.0 ng/mL (Normal) Range: 0.0-4.0 Serum Comments: [employer] ECLIA methodology. .According to the [place] [employer] Association, Serum PSA shoulddecrease and remain at undetectable levels after radicalprostatectomy. The AUA defines biochemical recurrence as an initialPSA value 0.2 ng/mL or greater followed by a subsequent confirmatoryPSA value 0.2 ng/mL or greater.Values obtained with d ifferent assay methods or kits cannot be usedinterchangeably. Results cannot be interpreted as absolute evidenceof the presence or absence of malignant disease. 86-Fkx-668114:06 CALCIFIDIOL (09505) VIT D 25 Comments: PATIENT WAS FASTINGPERFORMED BY: [facility] Ewtzsp66[address] [facility]urg[facility] HospitalDublin [place] [id number] Vitamin D, 25-Hydroxy 42.4 ng/mL (Normal) Range: 30.0-100.0 Comments: Vitamin D deficiency has been defined by the [place] of[place]icine and an Endocrine Society practice guideline as alevel of serum 25-OH vitamin D less than 20 ng/mL (1,2).The Endocrine Society went on to further define vitamin Dinsufficiency as a level between 21 and 29 ng/mL (2).1. IOM ([place] of [place]). 2010. Dietary reference intakes for calcium and D. [place]: The National Academies Press.2. Charles MF, Raissa OCONNELL, Nirmala ALBERT, et al. Evaluation, treatment, and prevention of vitamin D deficiency: an Endocrine Society clinical practice guideline. JCEM. 2010; 96(7):1911-30. :06 TSH (46257) Comments: PATIENT WAS FASTINGPERFORMED BY: [facility]6370 [facility] [id number] TSH 3.460 {uIU/mL} (Normal) Range: 0.450-4.500 94-Ikc-507278:06 URINALYSIS, W/ MICRO (90287) Comments: PATIENT WAS FASTINGPERFORMED BY: [facility]6370 [facility] [id number] Microscopic Examination See below: (Normal) Comments: Microscopic was indicated and was performed. Microscopic Examination MICRON (Normal) Comments: Microscopic follows if indicated. Nitrite, Urine Negative (Normal) Urobilinogen,Semi-Qn 0.2 mg/dL (Normal) Range: 0.2-1.0 Bilirubin Negative (Normal) Occult Blood Negative (Normal) Ketones Negative (Normal) Glucose Negative (Normal) Protein Negative (Normal) WBC Esterase Negative (Normal) Appearance Clear (Normal) Urine-Color Yellow (Normal) pH 5.0 (Normal) Range: 5.0-7.5 Specific Patrick 1.020 (Normal) Range: 1.005-1.030 19-Uiv-103265:06 MICROALBUMIN: CREATININE RATIO Comments: PATIENT WAS FASTINGPERFORMED BY: [facility]6370 [facility] [id number] (89565) AND (30156) Microalb/Creat Ratio <2.4 {mg/g_creat} (Normal) Range: 0.0-30.0 Microalbumin, Urine <3.0 ug/mL (Normal) Creatinine, Urine 127.3 mg/dL (Normal) :06 METABOLIC PANEL, COMPREHENSIVE Comments: PATIENT WAS FASTINGPERFORMED BY: [facility]6370 [facility] [id number] (99772) ALT (SGPT) 15 [iU]/L (Normal) Range: 0-44 [...] mg/dL (Abnormal) Range: 65-99 :06 LIPID PANEL (15773) Comments: PATIENT WAS FASTINGPERFORMED BY: [facility]6370 [facility] [id number] LDL/HDL Ratio 1.5 {ratio_units} (Normal) Range: 0.0-3.6 Comments: LDL/HDL Ratio Men Women 1/2 Avg.Risk 1.0 1.5 Av g.Risk 3.6 3.2 2X Avg.Risk 6.2 5.0 3X Avg.Risk 8.0 6.1 LDL Cholesterol Calc 63 mg/dL (Normal) Range: 0-99 VLDL Cholesterol Ezequiel 25 mg/dL (Normal) Range: 5-40 HDL Cholesterol 42 mg/dL (Normal) Triglycerides 126 mg/dL (Normal) Range: 0-149 Cholesterol, Total 130 mg/dL (Normal) Range: 100-199 01-Ijn-020771:06 CBC W/AUTO DIFF WBC (47579) Comments: PATIENT WAS FASTINGPERFORMED BY: LabCoKessler Institute for RehabilitationYmtdbn0013 [facility] [id number] Immature Grans (Abs) 0.0 {x10E3/uL} (Normal) Range: [...] (Normal) Range: 3.4-10.8 :32 HgA1C , Office (92084) HgA1C , Office 7.3 % (Abnormal) Range: 4.6 - 7.1 :32 Blood Glucose , Office (72957) Blood Glucose , Office 185 (Normal) :33 ALDOSTERONE (99442) Comments: PATIENT NOT FASTINGPERFORMED BY: [address] [id number] Aldosterone 3.8 ng/dL (Normal) Range: 0.0-30.0 Comments: This test was developed and its performance characteristicsdetermined by [employer]. It has not been cleared or approvedby the Food and Drug Administration. :33 RENIN (66114) Comments: PATIENT NOT FASTINGPERFORMED BY: Artoo[address] [id number] Renin Activity, Plasma 0.402 {ng/mL/hr} Range: 0.167-5.380 (Normal) Comments: This test was developed and its performance characteristicsdetermined by [employer]. It has not been cleared or approvedby the Food and Drug Administration. :31 METANEPHRINES - URINE (54933) Comments: PATIENT NOT FASTINGPERFORMED BY: Artoo[address] [id number] Metanephrine, U,24hr 238 {ug/24_hr} (Normal) Range: 45-290 Comments: (Hypertensive) >17 years 11 months: 35 - 460 Metanephrine, Ur 119 ug/L (Normal) Normetanephr.,U,24h 370 {ug/24_hr} (Normal) Range: 82-500 Comments: (Hypertensive) >17 years 11 months: 110 - 1050 Normetanephrine, Ur 185 ug/L (Normal) :31 CATECHOLAMINES TOTAL, URINE Comments: PATIENT NOT FASTINGPERFORMED BY: [address] [id number] Information: START 09/25/2016@447AM (88515) Dopamine, Ur, 24hr 280 {ug/24_hr} (Normal) Range: 0-510 Dopamine, Urine 140 ug/L (Normal) Norepinephrine,U,24h 42 {ug/24_hr} (Normal) Range: 0-135 Norepinephrine, Ur 21 ug/L (Normal) Epinephrine, U, 24hr 4 {ug/24_hr} (Normal) Range: 0-20 Epinephrine, Urine 2 ug/L (Normal) :31 URINE VMA (63313) Comments: PATIENT NOT FASTINGPERFORMED BY: PARUL [place] [address] [facility] [id number] VMA, Urine, 24hr 3.4 {mg/24_hr} (Normal) Range: 0.0-7.5 Comments: This test was developed and its performance characteristicsdetermined by [facility]. It has not been cleared or approvedby the Food and Drug Administration. VMA, Urine 1.7 mg/L (Normal) 28-Svi-490474:05 Microscopic Examination Comments: PATIENT WAS FASTINGPERFORMED BY: GUICHO [facility] Uqntsb8932 [facility] [id number] Bacteria None seen (Normal) Mucus Threads Present (Normal) Epithelial Cells (non renal) None seen {/hpf} (Normal) Range: 0 - 10 RBC 0-2 {/hpf} (Normal) Range: 0 - 2 WBC 0-5 {/hpf} (Normal) Range: 0 - 5 03-Dzj-386446:05 LIPID PANEL (12942) Comments: PATIENT WAS FASTINGPERFORMED BY: GUICHO [facility] Jqecyd0258 [facility] [id number] LDL/HDL Ratio 1.3 {ratio_units} (Normal) Range: 0.0-3.6 Comments: LDL/HDL Ratio Men Women 1/2 Avg.Risk 1.0 1.5 Av g.Risk 3.6 3.2 2X Avg.Risk 6.2 5.0 3X Avg.Risk 8.0 6.1 LDL Cholesterol Calc 61 mg/dL (Normal) Range: 0-99 VLDL Cholesterol Ezequiel 19 mg/dL (Normal) Range: 5-40 HDL Cholesterol 47 mg/dL (Normal) Triglycerides 94 mg/dL (Normal) Range: 0-149 Cholesterol, Total 127 mg/dL (Normal) Range: 100-199 48-Upv-302729:05 URINALYSIS, W/ MICRO (54572) Comments: PATIENT WAS FASTINGPERFORMED BY: [facility]6370 [facility] [id number] Microscopic Examination See below: (Normal) Comments: Microscopic was indicated and was performed. Microscopic Examination MICRON (Normal) Comments: Microscopic follows if indicated. Nitrite, Urine Negative (Normal) Urobilinogen,Semi-Qn 0.2 mg/dL (Normal) Range: 0.2-1.0 Bilirubin Negative (Normal) Occult Blood Negative (Normal) Ketones Negative (Normal) Glucose Negative (Normal) Protein Negative (Normal) WBC Esterase Negative (Normal) Appearance Clear (Normal) Urine-Color Yellow (Normal) pH 5.5 (Normal) Range: 5.0-7.5 Specific Patrick 1.024 (Normal) Range: 1.005-1.030 65-Gkn-278691:05 MICROALBUMIN: CREATININE RATIO Comments: PATIENT WAS FASTINGPERFORMED BY: [employer] [facility] [id number] (02614) AND (92105) Microalb/Creat Ratio <1.7 {mg/g_creat} (Normal) Range: 0.0-30.0 Microalbumin, Urine <3.0 ug/mL (Normal) Creatinine, Urine 171.8 mg/dL (Normal) 84-Qgk-790337:05 METABOLIC PANEL, COMPREHENSIVE Comments: PATIENT WAS FASTINGPERFORMED BY: [employer] sentronicsPending sale to [facility] [id number] (19007) ALT (SGPT) 15 [iU]/L (Normal) Range: 0-44 [...] Glucose, Serum 117 mg/dL (Abnormal) Range: 65-99 13-Doh-322337:05 CBC W/AUTO DIFF WBC (65805) Comments: PATIENT WAS FASTINGPERFORMED BY: LabCoKessler Institute for RehabilitationOwjdbp2973 [facility] [id number] Immature Grans (Abs) 0.0 {x10E3/uL} (Normal) Range: [...] 4.9 {x10E3/uL} (Normal) Range: 3.4-10.8 :05 TSH (59946) Comments: PATIENT WAS FASTINGPERFORMED BY: [facility] Hzzinb2198 [address]ado RoadDublin [place] [id number] TSH 3.460 {uIU/mL} (Normal) Range: 0.450-4.500 :05 T4, FREE (THYROXINE) (54410) Comments: PATIENT WAS FASTINGPERFORMED BY: [facility] Dvnppd9170 Rosado RoadDublin [place] [id number] T4,Free(Direct) 1.34 ng/dL (Normal) Range: 0.82-1.77 :05 T3, FREE (TRIDOTHYRONINE) (53963) Comments: PATIENT WAS FASTINGPERFORMED BY: [facility] Cyeddk0303 [address] RoadDublin [place] [id number] Triiodothyronine,Free,Serum 3.0 pg/mL (Normal) Range: 2.0-4.4 :05 CALCIFIDIOL (45891) VIT D 25 Comments: PATIENT WAS FASTINGPERFORMED BY: [facility] Seiwsv6901 [address]ado RoadDublin [place] [id number] Vitamin D, 25-Hydroxy 46.6 ng/mL (Normal) Range: 30.0-100.0 Comments: Vitamin D deficiency has been defined by the [place] of[place]icine and an Endocrine Society practice guideline as alevel of serum 25-OH vitamin D less than 20 ng/mL (1,2).The Endocrine Society went on to further define vitamin Dinsufficiency as a level between 21 and 29 ng/mL (2).1. IOM ([place] of Medicine). 2010. Dietary reference intakes for calcium and D. [place]: The National Academies Press.2. Charles MF, Raissa NC, Nirmala ALBERT, et al. Evaluation, treatment, and prevention of vitamin D deficiency: an Endocrine Society clinical practice guideline. JCEM. 2010; 96(7):1911-30. :42 HgA1C , Office (87040) HgA1C , Office 6.6 % (Normal) Range: 4.6 - 7.1 :42 Blood Glucose , Office (47247) Blood Glucose , Office 117 (Normal) :59 HgA1C , Office (72617) HgA1C , Office 6.8 % (Normal) Range: 4.6 - 7.1 :59 Blood Glucose , Office (97723) Blood Glucose , Office 237 (Normal) :52 Rapid Flu (80610 x 2) Influenza A Ag neg (Normal) :19 HgA1C , Office (66577) HgA1C , Office 6.6 % (Normal) Range: 4.6 - 7.1 :19 Blood Glucose , Office (10840) Blood Glucose , Office 171 (Normal) :43 Microscopic Examination Comments: PATIENT WAS FASTINGPERFORMED BY: [employer] sentronicsPending sale to [facility] [id number] Bacteria Few (Normal) Mucus Threads Present (Normal) Epithelial Cells (non renal) 0-10 {/hpf} (Normal) Range: 0 - 10 RBC 0-2 {/hpf} (Normal) Range: 0 - 2 WBC 0-5 {/hpf} (Normal) Range: 0 - 5 :53 Serum Creatinine AND GFR Comments: [facility] Wqwzjhcflg[address] [place], [place], [id number] EST GFR - AA 83 mL/min (Normal) Comments: GFR Calc EST GFR 69 mL/min (Normal) Comments: Non- GFR Calc CREAT,SERUM 1.12 mg/dL (Normal) Range: 0.70-1.30 Comments: The validity of the calculated GFR AND GFRAA in patients over70 years has not been determined. Clinical correlation isessential. :43 CALCIFIDIOL (94943) VIT D 25 Comments: PATIENT WAS FASTINGPERFORMED BY: [employer] [address] [facility] [id number] Vitamin D, 25-Hydroxy 55.4 ng/mL (Normal) Range: 30.0-100.0 Comments: Vitamin D deficiency has been defined by the [place] of[place]icine and an Endocrine Society practice guideline as alevel of serum 25-OH vitamin D less than 20 ng/mL (1,2).The Endocrine Society went on to further define vitamin Dinsufficiency as a level between 21 and 29 ng/mL (2).1. IOM ([place] of Medicine). 2010. Dietary reference intakes for calcium and D. [place]: The National Academies Press.2. Charles MF, Raissa OCONNELL, Nirmala ALBERT, et al. Evaluation, treatment, and prevention of vitamin D deficiency: an Endocrine Society clinical practice guideline. JCEM. 2010; 96(7):1911-30. :43 URINALYSIS, W/ MICRO (19802) Comments: PATIENT WAS FASTINGPERFORMED BY: [place] [id number] Microscopic Examination See below: (Normal) Comments: Microscopic was indicated and was performed. Microscopic Examination MICRON (Normal) Comments: Microscopic follows if indicated. Nitrite, Urine Negative (Normal) Urobilinogen,Semi-Qn 0.2 mg/dL (Normal) Range: 0.2-1.0 Bilirubin Negative (Normal) Occult Blood Negative (Normal) Ketones Negative (Normal) Glucose Negative (Normal) Protein Negative (Normal) WBC Esterase Negative (Normal) Appearance Clear (Normal) Urine-Color Yellow (Normal) pH 5.5 (Normal) Range: 5.0-7.5 Specific Patrick 1.022 (Normal) Range: 1.005-1.030 :43 MICROALBUMIN: CREATININE RATIO Comments: PATIENT WAS FASTINGPERFORMED BY: [address] [place] [id number] (22326) AND (06964) Microalb/Creat Ratio <2.4 {mg/g_creat} (Normal) Range: 0.0-30.0 Microalbumin, Urine <3.0 ug/mL (Normal) Creatinine, Urine 122.5 mg/dL (Normal) :43 METABOLIC PANEL, COMPREHENSIVE Comments: PATIENT WAS FASTINGPERFORMED BY: Yo-[facility] WellnessSanta Fe Indian HospitalIpzzla3778 [facility] [id number] (00791) ALT (SGPT) 12 [iU]/L (Normal) Range: 0-44 [...] Glucose, Serum 120 mg/dL (Abnormal) Range: 65-99 9-Ubb-480286:43 TSH (59681) Comments: PATIENT WAS FASTINGPERFORMED BY: Yo-Fi WellnessSanta Fe Indian HospitalKpwqia6650 [facility] [id number] TSH 4.010 {uIU/mL} (Normal) Range: 0.450-4.500 5-Ggx-031510:43 LIPID PANEL (62674) Comments: PATIENT WAS FASTINGPERFORMED BY: [facility] WellnessSanta Fe Indian HospitalXjxarl4208 [facility] [id number] LDL/HDL Ratio 1.2 {ratio_units} (Normal) Range: 0.0-3.6 [...] Cholesterol, Total 117 mg/dL (Normal) Range: 100-199 7-Xxv-451720:43 CBC W/AUTO DIFF WBC (66554) Comments: PATIENT WAS FASTINGPERFORMED BY: [facility] Sbmdry5319 [facility] [id number] Immature Grans (Abs) 0.0 {x10E3/uL} (Normal) Range: [...] (Normal) Range: 3.4-10.8 :27 HgA1C , Office (62578) HgA1C , Office 6.6 % (Normal) Range: 4.6 - 7.1 :27 Blood Glucose , Office (86478) Blood Glucose , Office 168 (Normal) :08 Microscopic Examination Comments: PATIENT WAS FASTINGPERFORMED BY: GUICHO [facility] [facility] [employer] [facility] [id number] Bacteria None seen (Normal) Mucus Threads Present (Normal) Epithelial Cells (non renal) None seen {/hpf} (Normal) Range: 0 - 10 RBC None seen {/hpf} (Normal) Range: 0 - 2 WBC 0-5 {/hpf} (Normal) Range: 0 - 5 :08 CALCIFIDIOL (19949) VIT D 25 Comments: PATIENT WAS FASTINGPERFORMED BY: GUICHO [employer] [facility] Dmllvy2392 [facility] [place]P[facility] [id number] Vitamin D, 25-Hydroxy 62.4 ng/mL (Normal) Range: 30.0-100.0 Comments: Vitamin D deficiency has been defined by the [place] ofKettering Healthcine and an Endocrine Society practice guideline as alevel of serum 25-OH vitamin D less than 20 ng/mL (1,2).The Endocrine Society went on to further define vitamin Dinsufficiency as a level between 21 and 29 ng/mL (2).1. IOM ([place] of Medicine). 2010. Dietary reference intakes for calcium and D. [place]: The National Academies Press.2. Charles MF, Raissa OCONNELL, Nirmala ALBERT, et al. Evaluation, treatment, and prevention of vitamin D deficiency: an Endocrine Society clinical practice guideline. JCEM. 2010; 96(7):1911-30. :08 URINALYSIS, W/ MICRO (52265) Comments: PATIENT WAS FASTINGPERFORMED BY: [facility]6370 [facility] [id number] Microscopic Examination See below: (Normal) Comments: Microscopic was indicated and was performed. Microscopic Examination MICRON (Normal) Comments: Microscopic follows if indicated. Nitrite, Urine Negative (Normal) Urobilinogen,Semi-Qn 0.2 mg/dL (Normal) Range: 0.2-1.0 Bilirubin Negative (Normal) Occult Blood Negative (Normal) Ketones Negative (Normal) Glucose Negative (Normal) Protein Negative (Normal) WBC Esterase Negative (Normal) Appearance Clear (Normal) Urine-Color Yellow (Normal) pH 6.0 (Normal) Range: 5.0-7.5 Specific Patrick 1.022 (Normal) Range: 1.005-1.030 :08 MICROALBUMIN: CREATININE RATIO Comments: PATIENT WAS FASTINGPERFORMED BY: [facility]tooBeaumont Hospital6370 [facility] [id number] (44759) AND (38196) Microalb/Creat Ratio <1.8 {mg/g_creat} (Normal) Range: 0.0-30.0 Microalbumin, Urine <3.0 ug/mL (Normal) Creatinine, Urine 164.4 mg/dL (Normal) :08 METABOLIC PANEL, COMPREHENSIVE Comments: PATIENT WAS FASTINGPERFORMED BY: [facility]6370 [facility] [id number] (42056) ALT (SGPT) 16 [iU]/L (Normal) Range: 0-44 [...] Glucose, Serum 108 mg/dL (Abnormal) Range: 65-99 14-Yoi-552600:08 LIPID PANEL (87969) Comments: PATIENT WAS FASTINGPERFORMED BY: [employer] [facility] [id number] LDL/HDL Ratio 1.4 {ratio_units} (Normal) Range: 0.0-3.6 [...] DIFF WBC Comments: PATIENT WAS FASTINGPERFORMED BY: [employer] [facility] [id number] Information: [id number] (87518) Immature Grans (Abs) 0.0 {x10E3/uL} (Normal) Range: [...] 5.5 {x10E3/uL} (Normal) Range: 3.4-10.8 :08 TSH (84502) Comments: PATIENT WAS FASTINGPERFORMED BY: [employer] [facility] [id number] TSH 4.000 {uIU/mL} (Normal) Range: 0.450-4.500 :03 HgA1C , Office (67760) HgA1C , Office 6.2 % (Normal) Range: 4.6 - 7.1 :03 Blood Glucose , Office (37248) Blood Glucose , Office 102 (Normal) 1-Ohg-282004:49 Throat Culture (22557) Comments: PATIENT NOT FASTINGPERFORMED BY: [place] [facility]IG[facility] MEDIAKessler Institute for RehabilitationAjzvgx5323 [facility] [id number] Information: SRC:THRT [id number] Result 1 RRF (Normal) Comments: Routine respiratory alfredo Upper Respiratory Culture Final report (Normal) :02 Rapid Strep Test, Office (54836) Rapid Strep Test, Office Negative (Normal) :48 Influenza A&B Viral Comments: PATIENT NOT FASTINGPERFORMED BY: [employer] Abtjko4123 [address] [facility] [id number] Information: SRC:NOS [id number] Culture (54667) Viral Culture,Rapid,Influenza FLUABN (Normal) Comments: Negative:No Influenza A or B detected. 9-Yvy-424737:26 Rapid Flu (69593 x 2) Influenza A Ag negative (Normal) :30 HgA1C , Office (15248) HgA1C , Office 7.3 % (Abnormal) Range: 4.6 - 7.1 :30 Blood Glucose , Office (42566) Blood Glucose , Office 191 (Normal) :52 Microscopic Examination Comments: PATIENT WAS FASTINGPERFORMED BY: [employer] [facility] Klkdhu0071 [facility] [id number] Bacteria None seen (Normal) Mucus Threads Present (Normal) Epithelial Cells (non renal) 0-10 {/hpf} (Normal) Range: 0 - 10 RBC 0-2 {/hpf} (Normal) Range: 0 - 2 WBC 0-5 {/hpf} (Normal) Range: 0 - 5 :52 CALCIFIDIOL (24915) VIT D 25 Comments: PATIENT WAS FASTINGPERFORMED BY: [facility] Ztowbc7054 [facility] [id number] Vitamin D, 25-Hydroxy 44.9 ng/mL (Normal) Range: 30.0-100.0 Comments: Vitamin D deficiency has been defined by the [place] of[place]icine and an Endocrine Society practice guideline as alevel of serum 25-OH vitamin D less than 20 ng/mL (1,2).The Endocrine Society went on to further define vitamin Dinsufficiency as a level between 21 and 29 ng/mL (2).1. IOM ([place] of Medicine). 2010. Dietary reference intakes for calcium and D. [place]: The National Academies Press.2. Charles MF, Raissa NC, Nirmala ALBERT, et al. Evaluation, treatment, and prevention of vitamin D deficiency: an Endocrine Society clinical practice guideline. JCEM. 2010; 96(7):1911-30. :52 LIPID PANEL (50989) Comments: PATIENT WAS FASTINGPERFORMED BY: Yo-[facility] WellnessKessler Institute for RehabilitationEocnsg1372 [facility] [id number] LDL/HDL Ratio 2.4 {ratio_units} (Normal) Range: 0.0-3.6 [...] 196 mg/dL (Normal) Range: 100-199 :52 TSH (48209) Comments: PATIENT WAS FASTINGPERFORMED BY: Yo-Fi WellnessKessler Institute for RehabilitationFlffnp2224 [facility] [id number] TSH 4.480 {uIU/mL} (Normal) Range: 0.450-4.500 :52 URINALYSIS, W/ MICRO (53045) Comments: PATIENT WAS FASTINGPERFORMED BY: [facility]tooBe[facility] Hospital6370 [facility] [id number] Microscopic Examination See below: (Normal) Comments: Microscopic was indicated and was performed. Microscopic Examination MICRON (Normal) Comments: Microscopic follows if indicated. Nitrite, Urine Negative (Normal) Urobilinogen,Semi-Qn 0.2 mg/dL (Normal) Range: 0.2-1.0 Bilirubin Negative (Normal) Occult Blood Negative (Normal) Ketones Negative (Normal) Glucose Negative (Normal) Protein Negative (Normal) WBC Esterase Negative (Normal) Appearance Clear (Normal) Urine-Color Yellow (Normal) pH 6.0 (Normal) Range: 5.0-7.5 Specific Patrick 1.024 (Normal) Range: 1.005-1.030 :52 MICROALBUMIN: CREATININE RATIO Comments: PATIENT WAS FASTINGPERFORMED BY: [place] [facility]IG[facility] MEDIAKessler Institute for RehabilitationVjkppq2423 [facility] [id number] (82747) AND (50425) Microalb/Creat Ratio <2.2 {mg/g_creat} (Normal) Range: 0.0-30.0 Microalbumin, Urine <3.0 ug/mL (Normal) Range: 0.0-17.0 Creatinine, Urine 135.9 mg/dL (Normal) Range: 22.0-328.0 :52 METABOLIC PANEL, COMPREHENSIVE Comments: PATIENT WAS FASTINGPERFORMED BY: [employer] Kfjbtj9880 [facility] [id number]; will review at 02/21 appt (28605) ALT (SGPT) 13 [iU]/L (Normal) Range: 0-44 [...] Glucose, Serum 130 mg/dL (Abnormal) Range: 65-99 12-Swc-90724:52 CBC W/AUTO DIFF WBC Comments: PATIENT WAS FASTINGPERFORMED BY: [facility] Ygesco1129 [facility] [id number] Information: [id number] (45298) Immature Grans (Abs) 0.0 {x10E3/uL} (Normal) Range: [...] (Normal) Range: 3.4-10.8 :56 HgA1C , Office (22578) HgA1C , Office 5.9 % (Normal) Range: 4.6 - 7.1 :56 Blood Glucose , Office (64404) Blood Glucose , Office 103 (Normal) :35 HgA1C , Office (92694) HgA1C , Office 6.0 % (Normal) Range: 4.6 - 7.1 :34 Blood Glucose , Office (79370) Blood Glucose , Office 135 (Normal) :45 Potassium Comments: Test performed at:[facility] Uspbiiphwd4608 [place] [address] K 4.3 mmol/L (Normal) Range: 3.5-5.1 :54 Comp. Metabolic Panel (14) Comments: PATIENT WAS FASTINGPERFORMED BY: [facility] Yrsvzu7280 [facility] [id number] Information: [id number] ALT (SGPT) 11 [iU]/L (Normal) Range: 0-44 [...] Glucose, Serum 117 mg/dL (Abnormal) Range: 65-99 56-Jyk-45003:54 Lipid Panel With LDL/HDL Comments: PATIENT WAS FASTINGPERFORMED BY: Maximus70 [facility] [id number] Ratio LDL/HDL Ratio 2.1 {ratio_units} Range: 0.0-3.6 [...] 2.860 {uIU/mL} Comments: PATIENT WAS FASTINGPERFORMED BY: [employer]6370 [facility] [id number] 9:54 (Normal) Range: 0.450-4.500 02-Aug-2014 Vitamin D, 25-Hydroxy 61.9 ng/mL (Normal) Comments: PATIENT WAS FASTINGPERFORMED BY: [employer] Wwqlsi6463 [facility] [id number] 9:54 Range: 30.0-100.0 Comments: Vitamin D deficiency has been defined by the [place] of[place]icine and an Endocrine Society practice guideline as alevel of serum 25-OH vitamin D less than 20 ng/mL (1,2).The Endocrine Society went on to further define vitamin Dinsufficiency as a level between 21 and 29 ng/mL (2).1. IOM ([place] of [place]). 2010. Dietary reference intakes for calcium and D. [place]: The National Academies Press.2. Riassa Harrison, Nirmala ALBERT, et al. Evaluation, treatment, and prevention of vitamin D deficiency: an Endocrine Society clinical practice guideline. JCEM. 2010; 96(7):1911-30. :13 HgA1C , Office (22262) HgA1C , Office 6.8 % (Normal) Range: 4.6 - 7.1 :13 Blood Glucose , Office (77178) Blood Glucose , Office 218 (Normal) :24 Microscopic Examination Comments: PATIENT WAS FASTINGPERFORMED BY: [employer]6370 [facility] [id number] Bacteria None seen (Normal) Mucus Threads Present (Normal) Epithelial Cells (non renal) None seen {/hpf} (Normal) Range: 0 - 10 RBC 0-2 {/hpf} (Normal) Range: 0 - 2 WBC 0-5 {/hpf} (Normal) Range: 0 - 5 :24 Vitamin D Hydroxy (41107) Comments: PATIENT WAS FASTINGPERFORMED BY: [employer]6370 [facility] [place]P[facility] [id number] Vitamin D, 25-Hydroxy 35.7 ng/mL (Normal) Range: 30.0-100.0 Comments: Vitamin D deficiency has been defined by the [place] of[place]icine and an Endocrine Society practice guideline as alevel of serum 25-OH vitamin D less than 20 ng/mL (1,2).The Endocrine Society went on to further define vitamin Dinsufficiency as a level between 21 and 29 ng/mL (2).1. IOM ([place] of [place]). 2010. Dietary reference intakes for calcium and D. [place]: The National Academies Press.2. Raissa Harrison, Nirmala ALBERT, et al. Evaluation, treatment, and prevention of vitamin D deficiency: an Endocrine Society clinical practice guideline. JCEM. 2010; 96(7):1911-30. :24 URINALYSIS, W/ MICRO (09749) Comments: PATIENT WAS FASTINGPERFORMED BY: [employer] Zvoprx4996 [facility] [id number] Microscopic Examination See below: (Normal) Comments: Microscopic was indicated and was performed. Microscopic Examination MICRON (Normal) Comments: Microscopic follows if indicated. Nitrite, Urine Negative (Normal) Urobilinogen,Semi-Qn 0.2 mg/dL (Normal) Range: 0.0-1.9 Bilirubin Negative (Normal) Occult Blood Negative (Normal) Ketones Negative (Normal) Glucose Negative (Normal) Protein Negative (Normal) WBC Esterase Negative (Normal) Appearance Clear (Normal) Urine-Color Yellow (Normal) pH 6.0 (Normal) Range: 5.0-7.5 Specific Patrick 1.025 (Normal) Range: 1.005-1.030 48-Fur-625615:24 TSH (36678) Comments: PATIENT WAS FASTINGPERFORMED BY: [employer] Idqkkk0255 [facility] [id number] TSH 2.740 {uIU/mL} (Normal) Range: 0.450-4.500 17-Pmr-221399:24 MICROALBUMIN: CREATININE RATIO Comments: PATIENT WAS FASTINGPERFORMED BY: [place] [facility]IG[facility] MEDIAKessler Institute for RehabilitationUxdjuy0043 [facility] [id number] (18094) AND (75011) Microalb/Creat Ratio <1.5 {mg/g_creat} (Normal) Range: 0.0-30.0 Microalbumin, Urine <3.0 ug/mL (Normal) Range: 0.0-17.0 Creatinine, Urine 205.5 mg/dL (Normal) Range: 22.0-328.0 45-Ndz-251737:24 METABOLIC PANEL, COMPREHENSIVE Comments: PATIENT WAS FASTINGPERFORMED BY: [employer] Rkmnsw3644 [facility] [id number] (74533) ALT (SGPT) 13 [iU]/L (Normal) Range: 0-44 [...] Glucose, Serum 138 mg/dL (Abnormal) Range: 65-99 29-Kbc-544285:24 LIPID PANEL (65708) Comments: PATIENT WAS FASTINGPERFORMED BY: LabCoKessler Institute for RehabilitationZfqoul5205 [facility] [id number] LDL/HDL Ratio 3.2 {ratio_units} (Normal) Range: 0.0-3.6 [...] Cholesterol, Total 221 mg/dL (Abnormal) Range: 100-199 24-Nzq-774013:24 CBC W/AUTO DIFF WBC Comments: PATIENT WAS FASTINGPERFORMED BY: [facility] CenterCoLori [facility]ille 9826470 [facility] [id number] Information: [id number] (76819) Immature Grans (Abs) 0.0 {x10E3/uL} (Normal) Range: [...] 4.14-5.80 WBC 5.0 {x10E3/uL} (Normal) Range: 3.4-10.8 94-Tkk-124032:00 Fecal Occult Blood , Office (25039) Fecal Occult Blood , Office (Inhouse) negative (Normal) 64-Gqv-737246:57 PSA (PROSTATE SPECIFIC Comments: PATIENT NOT FASTINGPERFORMED BY: [place] 1390270 [facility] [id number] Information: [id number] ANTIGEN) (V76.44) Prostate Specific Ag, 1.5 ng/mL (Normal) Range: 0.0-4.0 Serum Comments: Dee ECLIA methodology. .According to the [place] [employer], Serum PSA shoulddecrease and remain [...] of malignant disease. :17 HgA1C , Office (82266) HgA1C , Office 7.0 % (Normal) Range: 4.6 - 7.1 :17 Blood Glucose , Office (48643) Blood Glucose , Office 118 (Normal) :50 HgA1C , Office (22662) HgA1C , Office 7.6 % (Abnormal) Range: 4.6 - 7.1 :50 Blood Glucose , Office (96616) Blood Glucose , Office 142 (Normal) 3-Cpz-362726:44 Microscopic Examination Comments: PATIENT WAS FASTINGPERFORMED BY: ISIS sentronicsPending sale to [facility] [id number] Bacteria None seen (Normal) Mucus Threads Present (Normal) Epithelial Cells (non renal) None seen {/hpf} (Normal) Range: 0 - 10 RBC 0-2 {/hpf} (Normal) Range: 0 - 2 WBC 0-5 {/hpf} (Normal) Range: 0 - 5 :32 URINALYSIS, W/ MICRO (74332) Comments: PATIENT WAS FASTINGPERFORMED BY: [facility] [id number] Microscopic Examination See below: (Normal) Comments: Microscopic was indicated and was performed. Microscopic Examination MICRON (Normal) Comments: Microscopic follows if indicated. Nitrite, Urine Negative (Normal) Urobilinogen,Semi-Qn 0.2 mg/dL (Normal) Range: 0.0-1.9 Bilirubin Negative (Normal) Ketones Negative (Normal) Occult Blood Negative (Normal) Glucose Trace (Abnormal) Protein Negative (Normal) WBC Esterase Negative (Normal) Appearance Clear (Normal) Urine-Color Yellow (Normal) pH 6.0 (Normal) Range: 5.0-7.5 Specific Patrick 1.024 (Normal) Range: 1.005-1.030 :32 MICROALBUMIN: CREATININE RATIO Comments: PATIENT WAS FASTINGPERFORMED BY: [employer] Csygkh5208 [facility] [id number] (45758) AND (09783) Microalb/Creat Ratio 1.3 {mg/g_creat} (Normal) Range: 0.0-30.0 Creatinine, Urine 188.3 mg/dL (Normal) Range: 22.0-328.0 Microalbumin, Urine 2.4 ug/mL (Normal) Range: 0.0-17.0 :32 TSH (21288) Comments: PATIENT WAS FASTINGPERFORMED BY: [employer] Gdaxeh8512 [facility] [id number] TSH 3.250 {uIU/mL} (Normal) Range: 0.450-4.500 4-Zmk-406600:32 METABOLIC PANEL, COMPREHENSIVE Comments: PATIENT WAS FASTINGPERFORMED BY: [employer] [facility] [id number]; will review at 10/08 appt (41449) ALT (SGPT) 22 [iU]/L (Normal) Range: 0-44 [...] Glucose, Serum 152 mg/dL (Abnormal) Range: 65-99 8-Eoc-247363:32 LIPID PANEL (03418) Comments: PATIENT WAS FASTINGPERFORMED BY: [employer] [facility] [id number] LDL/HDL Ratio 2.0 {ratio_units} (Normal) Range: 0.0-3.6 [...] MANUAL DIFF Comments: PATIENT WAS FASTINGPERFORMED BY: [employer] [facility] [id number] Information: [id number] (03672) Immature Grans (Abs) 0.0 {x10E3/uL} (Normal) Range: [...] (Normal) Range: 3.4-10.8 :37 HgA1C , Office (87856) HgA1C , Office 7.1 % (Normal) Range: 4.6 - 7.1 :37 Blood Glucose , Office (45016) Blood Glucose , Office 142 (Normal) 30-Hvt-758865:39 Microscopic Examination Comments: PATIENT WAS FASTINGPERFORMED BY: Maximus70 [place] [id number] Bacteria None seen (Normal) Mucus Threads Present (Normal) Epithelial Cells (non renal) None seen {/hpf} (Normal) Range: 0 - 10 RBC None seen {/hpf} (Normal) Range: 0 - 3 WBC 0-5 {/hpf} (Normal) Range: 0 - 5 :13 Vitamin D Hydroxy (39727) Comments: PATIENT WAS FASTINGPERFORMED BY: [place] [id number] Vitamin D, 25-Hydroxy 35.9 ng/mL (Normal) Range: 30.0-100.0 Comments: Vitamin D deficiency has been defined by the [place] ofMedicine and an Endocrine Society practice guideline as alevel of serum 25-OH vitamin D less than 20 ng/mL (1,2).The Endocrine Society went on to further define vitamin Dinsufficiency as a level between 21 and 29 ng/mL (2).1. IOM ([place] of Medicine). 2010. Dietary reference intakes for calcium and D. [place]: The National Academies Press.2. Charles MF, Raissa OCONNELL, Nirmala ALBERT, et al. Evaluation, treatment, and prevention of vitamin D deficiency: an Endocrine Society clinical practice guideline. JCEM. 2010; 96(7):1911-30. :13 TSH (60658) Comments: PATIENT WAS FASTINGPERFORMED BY: [employer]6[address] [place] [id number] TSH 4.190 {uIU/mL} (Normal) Range: 0.450-4.500 :13 URINALYSIS, W/ MICRO (91535) Comments: PATIENT WAS FASTINGPERFORMED BY: [place] DIGITAL MEDIArp Rwmmcg4174 [facility] [place] [id number] Microscopic Examination MICRON (Normal) Comments: Microscopic follows if indicated. Microscopic Examination See below: (Normal) Nitrite, Urine Negative (Normal) Urobilinogen,Semi-Qn 0.2 mg/dL (Normal) Range: 0.0-1.9 Bilirubin Negative (Normal) Occult Blood Negative (Normal) Ketones Negative (Normal) Glucose Negative (Normal) Protein Negative (Normal) Appearance Clear (Normal) WBC Esterase Negative (Normal) Urine-Color Yellow (Normal) pH 7.0 (Normal) Range: 5.0-7.5 Specific Patrick 1.023 (Normal) Range: 1.005-1.030 :13 MICROALBUMIN: CREATININE RATIO Comments: PATIENT WAS FASTINGPERFORMED BY: [place] DIGITAL MEDIArp Vbumky8048 [facility] [place] [id number] (53333) AND (73909) Microalb/Creat Ratio 1.4 {mg/g_creat} (Normal) Range: 0.0-30.0 Creatinine, Urine 177.1 mg/dL (Normal) Range: 22.0-328.0 Microalbumin, Urine 2.5 ug/mL (Normal) Range: 0.0-17.0 :13 METABOLIC PANEL, COMPREHENSIVE Comments: PATIENT WAS FASTINGPERFORMED BY: Maximus70 [facility] [place] [id number] (01273) ALT (SGPT) 17 [iU]/L (Normal) Range: 0-44 [...] mg/dL (Abnormal) Range: 65-99 :13 LIPID PANEL (42762) Comments: PATIENT WAS FASTINGPERFORMED BY: [employer]6370 [facility] [place] [id number] LDL/HDL Ratio 1.8 {ratio_units} (Normal) Range: 0.0-3.6 LDL Cholesterol Calc 86 mg/dL (Normal) Range: 0-99 VLDL Cholesterol Ezequiel 18 mg/dL (Normal) Range: 5-40 HDL Cholesterol 48 mg/dL (Normal) Comments: According to ATP-III Guidelines, HDL-C >59 mg/dL is considered anegative risk factor for CHD. Triglycerides 92 mg/dL (Normal) Range: 0-149 Cholesterol, Total 152 mg/dL (Normal) Range: 100-199 48-Siq-01622:13 CBC WITH MANUAL DIFF Comments: PATIENT WAS FASTINGPERFORMED BY: LabCoKessler Institute for RehabilitationStxnpn2183 [facility] [id number] Information: [id number] (06465) Immature Grans (Abs) 0.0 {x10E3/uL} (Normal) Range: [...] (Normal) Range: 3.4-10.8 :31 HgA1C , Office (51237) HgA1C , Office 6.7 % (Normal) Range: 4.6 - 7.1 :31 Blood Glucose , Office (13199) Blood Glucose , Office 141 (Normal) :55 HgA1C , Office (30047) HgA1C , Office 6.4 % (Normal) Range: 4.6 - 7.1 :55 Blood Glucose , Office (99068) Blood Glucose , Office 116 (Normal) :33 Microscopic Examination Comments: PATIENT WAS FASTINGPERFORMED BY: [employer]6370 [facility] [id number] Bacteria None seen (Normal) Mucus Threads Present (Normal) Epithelial Cells (non renal) None seen {/hpf} (Normal) Range: 0 - 10 RBC 0-3 {/hpf} (Normal) Range: 0 - 3 WBC 0-5 {/hpf} (Normal) Range: 0 - 5 :33 PSA (PROSTATE SPECIFIC Comments: PATIENT WAS FASTINGPERFORMED BY: [employer]6370 [facility] [id number] ANTIGEN) (V76.44) Prostate Specific Ag, 1.5 ng/mL (Normal) Range: 0.0-4.0 Serum Comments: [employer] ECLIA methodology. .According to the [place] [employer] Association, Serum PSA shoulddecrease and remain at undetectable levels after radicalprostatectomy. The AUA defines biochemical recurrence as an initialPSA value 0.2 ng/mL or greater followed by a subsequent confirmatoryPSA value 0.2 ng/mL or greater.Values obtained with d ifferent assay methods or kits cannot be usedinterchangeably. Results cannot be interpreted as absolute evidenceof the presence or absence of malignant disease. :33 TSH (57641) Comments: PATIENT WAS FASTINGPERFORMED BY: [facility] Hospital6370 [facility] [id number] TSH 2.770 {uIU/mL} (Normal) Range: 0.450-4.500 :33 URINALYSIS, W/ MICRO (41190) Comments: PATIENT WAS FASTINGPERFORMED BY: [place] 1390270 [facility] [id number] Microscopic Examination See below: (Normal) Microscopic Examination MICRON (Normal) Comments: Microscopic follows if indicated. Nitrite, Urine Negative (Normal) Urobilinogen,Semi-Qn 0.2 mg/dL (Normal) Range: 0.0-1.9 Bilirubin Negative (Normal) Occult Blood Negative (Normal) Ketones Negative (Normal) Glucose Negative (Normal) Protein Negative (Normal) WBC Esterase Negative (Normal) Appearance Clear (Normal) Urine-Color Yellow (Normal) pH 6.0 (Normal) Range: 5.0-7.5 Specific Patrick 1.026 (Normal) Range: 1.005-1.030 19-Erg-559759:33 MICROALBUMIN: CREATININE RATIO Comments: PATIENT WAS FASTINGPERFORMED BY: [facility]6370 [facility] [id number] (71533) AND (29879) Microalb/Creat Ratio 1.8 {mg/g_creat} (Normal) Range: 0.0-30.0 Microalbumin, Urine 3.6 ug/mL (Normal) Range: 0.0-17.0 Creatinine, Urine 203.4 mg/dL (Normal) Range: 22.0-328.0 15-Kbl-567558:33 METABOLIC PANEL, COMPREHENSIVE Comments: PATIENT WAS FASTINGPERFORMED BY: [facility]6370 [facility] [id number] (35883) ALT (SGPT) 16 [iU]/L (Normal) Range: 0-44 [...] Glucose, Serum 114 mg/dL (Abnormal) Range: 65-99 01-Zoj-426793:33 LIPID PANEL (91555) Comments: PATIENT WAS FASTINGPERFORMED BY: [employer] [facility] [id number] LDL/HDL Ratio 1.3 {ratio_units} (Normal) Range: 0.0-3.6 LDL Cholesterol Calc 63 mg/dL (Normal) Range: 0-99 VLDL Cholesterol Ezequiel 25 mg/dL (Normal) Range: 5-40 HDL Cholesterol 47 mg/dL (Normal) Comments: According to ATP-III Guidelines, HDL-C >59 mg/dL is considered anegative risk factor for CHD. Triglycerides 123 mg/dL (Normal) Range: 0-149 Cholesterol, Total 135 mg/dL (Normal) Range: 100-199 00-Mne-324407:33 CBC WITH MANUAL DIFF Comments: PATIENT WAS FASTINGPERFORMED BY: [place] DIGITAL MEDIASanta Fe Indian HospitalShpccv2789 [facility] [id number] Information: [id number] (63463) Immature Grans (Abs) 0.0 {x10E3/uL} (Normal) Range: [...] (Normal) Range: 4.0-10.5 :22 HgA1C , Office (61945) HgA1C , Office 6.3 % (Normal) Range: 4.6 - 7.1 :22 Blood Glucose , Office (80094) Blood Glucose , Office 109 (Normal) :49 ALDOS 9.3 ng/dL (Normal) Range: 0.0-30.0 :49 CATU [id number] 674 Range: 0-510 {ug/24_hr} Comments: TESTING PERFORMED AT [facility]. ORIGINAL REPORT ONFILE IN LAB CONTAINS [...] metanephrines and plasma catecolamines. TESTING PERFORMED AT [facility]. ORIGINAL REPORT ONFILE IN LAB CONTAINS ADDITIONAL [...] 0.39 - 1.31Performed at: - [facility] [address] [id number] Director: Bruno Williamson MD, Phone: [phone] - (Normal) M joceline y - 2 0 1 3 9 : 4 9 43-Imf-08655:49 VMA tVMA24 4.6 {mg/24_hr} (Normal) Range: 0.0-7.5 [...] 126 mg/dLsuggests DIABETES MELLITUS per A.D.A. criteria. 87-Acm-855735:15 CBCD ANC 3.6 3/uL (Normal) Range: 2.0-7.7 [...] 4.6-6.2 WBC 6.4 {k/mm3} (Normal) Range: 4.4-11.0 09-Tor-23298:00 BRAIN W/WO CONTRAST Radiology Report See Note [...] Stauffer M.D.August 08, 2012 at 10:05:25 PM [id number] Signed AH/AH If you are the referring physician and would like to consult with theradiologist who provided this interpretation, please contact Chad Mast at [phone]. If this radiologist is unavailable,you will be directed to another radiologist to assist. If you are a patient with a question regarding this report, pleasecontactyour referring physician directly . Professional Interpretation Provided By: [employer], Phone , These documents contain legally protected [...] on 08/08/122207 Sign by: MIKHAIL STAUFFER MD 58-Otb-307592:32 BRAIN/HEAD WITHOUT CONTRAST Radiology Report See Note [...] Fontenot M.D.August 04, 2012 at 5:16:58 PM [id number] Signed DN/DN If you are the referring physician and would like to consult with theradiologist who pro vided this interpretation, please contact Heather Ng M.D. at [phone]. If this radiologist is unavailable, youwillbe directed to another radiologist to assist. If you are a patient with a quest ion regarding this report, pleasecontactyour referring physician directly. Professional Interpretation Provided By: [employer], Phone , These documents contain legally pro [...] 08/04/121718 Sign by: ___ HEATHER FONTENOT MD 61-Wpl-468072:36 CBCD ANC 4.1 3/uL (Normal) Range: 2.0-7.7 [...] METABOLIC PANEL, Comments: PATIENT NOT FASTINGPERFORMED BY: LabCoKessler Institute for RehabilitationSdcvev4350 [facility] [id number] Information: [id number] COMPREHENSIVE (24125) ALT (SGPT) 13 [iU]/L (Normal) Range: 0-44 [...] (Normal) Range: 65-99 :01 HgA1C , Office (43112) HgA1C , Office 6.2 % (Normal) Range: 4.6 - 7.1 :01 Blood Glucose , Office (79000) Blood Glucose , Office 89 (Normal) :48 Microscopic Examination Comments: PATIENT WAS FASTINGPERFORMED BY: LabCoKessler Institute for RehabilitationJfedxq9943 [facility] [id number] Bacteria Few (Normal) Mucus Threads Present (Normal) Epithelial Cells (non renal) None seen {/hpf} (Normal) Range: 0 - 10 RBC 0-3 {/hpf} (Normal) Range: 0 - 3 WBC 0-5 {/hpf} (Normal) Range: 0 - 5 :48 TSH (38767) Comments: PATIENT WAS FASTINGPERFORMED BY: [facility] WellnessSanta Fe Indian HospitalIzckbm6701 [facility] [id number] TSH 5.340 {uIU/mL} (Abnormal) Range: 0.450-4.500 :48 URINALYSIS, W/ MICRO (29724) Comments: PATIENT WAS FASTINGPERFORMED BY: Yo-Fi WellnessSanta Fe Indian HospitalSpmoxv7733 [facility] [id number] Microscopic Examination See below: (Normal) Microscopic Examination MICRON (Normal) Comments: Microscopic follows if indicated. Bilirubin Negative (Normal) Nitrite, Urine Negative (Normal) Urobilinogen,Semi-Qn 0.2 mg/dL (Normal) Range: 0.0-1.9 Occult Blood Negative (Normal) Ketones Negative (Normal) Glucose Negative (Normal) Protein Negative (Normal) WBC Esterase Negative (Normal) Appearance Clear (Normal) pH 5.5 (Normal) Range: 5.0-7.5 Urine-Color Yellow (Normal) Specific Patrick 1.028 (Normal) Range: 1.005-1.030 :48 MICROALBUMIN: CREATININE RATIO Comments: PATIENT WAS FASTINGPERFORMED BY: [facility]-Fi WellnessSanta Fe Indian HospitalNctwpj1562 [facility] [id number] (51395) AND (91089) Microalb/Creat Ratio 1.6 {mg/g_creat} (Normal) Range: 0.0-30.0 Creatinine, Urine 195.7 mg/dL (Normal) Range: 22.0-328.0 Microalbumin, Urine 3.2 ug/mL (Normal) Range: 0.0-17.0 :48 METABOLIC PANEL, COMPREHENSIVE Comments: PATIENT WAS FASTINGPERFORMED BY: Yo-Fi WellnessKessler Institute for RehabilitationAvkozy7094 [facility] [id number] (76050) ALT (SGPT) 16 [iU]/L (Normal) Range: 0-44 [...] mg/dL (Normal) Range: 65-99 :48 LIPID PANEL (63333) Comments: PATIENT WAS FASTINGPERFORMED BY: [employer]70 [facility] [place] [id number] LDL Cholesterol Calc 97 mg/dL (Normal) Range: [...] MANUAL DIFF Comments: PATIENT WAS FASTINGPERFORMED BY: [employer]6370 [facility] [id number] Information: [id number] (32592) Immature Grans (Abs) 0.0 {x10E3/uL} (Normal) Range: [...] (Normal) Range: 4.0-10.5 :46 HgA1C , Office (00716) HgA1C , Office 6.1 % (Normal) Range: 4.6 - 7.1 :46 Blood Glucose , Office (28511) Blood Glucose , Office 91 (Normal) 3-Oxl-119347:25 HEPATOBILLIARY IMG W/PHARM INT Radiology Report See [...] Cholecystokinin (0.02 ug/kg) was administered intravenously over d40-qknqky period. The post CCK gallbladder ejection fraction mtdoqlcxkhba68 minutes following Cholecystokinin administration was noted to [...] Richmond M.D.December 24, 2011 at 8:34:10 PM [id number] S igned RB/RB If you are the referring physician and would like to consult with theradiologist who provided this interpretation, please contact Chad Aragon at [phone]. If this radiologist is un available, you will bedirected to another radiologist to assist. If you are a patient with a question regarding this report, pleasecontactyour referring physician directly. Professional Interpretation P rovided By: [employer], Phone , These documents contain legally protected [...] size of the right kidney. The right qurrzytpeqchwp29.6 cm. Normal rolando al cortex. The right cortex measures 1.8 cm. Thereisno demonstrated renal mass or cyst. There is no right hydronephrosis. IMPRESSION:Sludge in the gallbladder lumen, with a thickened gallbladder wall .Correlation with nuclear medicine hepatobiliary scan is recommended. Signed:Jakob Hunt M.D.December 18, 2011 at 11:00:05 AM [id number] Signed GP/GP If you are the referring physician and would like to consult with theradiologist who provided this interpretation, please contact Chad Lao at [phone]. If this radiologist is unavailable, youwill be directed to another radiologist to assist. If you are a patient with a question regarding this report, pleasecontactyour referring physician directly. Professional Interpretation Provided By: [employer], Phone , These documents contain legally protected [...] Jakob Hunt MD :41 HgA1C , Office (73827) HgA1C , Office 6.2 % (Normal) Range: 4.6 - 7.1 :41 Blood Glucose , Office (42964) Blood Glucose , Office 115 (Normal) :37 HgA1C , Office (08962) HgA1C , Office 6.4 % (Normal) Range: 4.6 - 7.1 :37 Blood Glucose , Office (05881) Blood Glucose , Office 119 (Normal) :44 PSA (PROSTATE SPECIFIC Comments: PATIENT WAS FASTINGPERFORMED BY: CB LabBeaum[facility] Hospital6370 [facility] [id number] ANTIGEN) (V76.44) Prostate Specific Ag, 1.7 ng/mL (Normal) Range: 0.0-4.0 Serum Comments: [employer] methodology. .According to the [place] U[employer] Association, Serum PSA shoulddecrease and remain at undetectable levels after radicalprostatectomy. The AUA defines biochemical recurrence as an initialPSA value 0.2 ng/mL or greater followed by a subsequent confirmatoryPSA value 0.2 ng/mL or greater.Values obtained with d ifferent assay methods or kits cannot be usedinterchangeably. Results cannot be interpreted as absolute evidenceof the presence or absence of malignant disease. :44 TSH (98684) Comments: PATIENT WAS FASTINGPERFORMED BY: [employer]6370 [facility] [id number] TSH 2.660 {uIU/mL} (Normal) Range: 0.450-4.500 :44 URINALYSIS, W/ MICRO (67595) Comments: PATIENT WAS FASTINGPERFORMED BY: [employer]6370 [facility] [id number] Microscopic Examination See below: (Normal) Microscopic Examination MICRON (Normal) Comments: Microscopic follows if indicated. Nitrite, Urine Negative (Normal) Urobilinogen,Semi-Qn 0.2 mg/dL (Normal) Range: 0.0-1.9 Bilirubin Negative (Normal) Occult Blood Negative (Normal) Ketones Negative (Normal) Glucose Negative (Normal) Protein Negative (Normal) WBC Esterase Negative (Normal) Appearance Clear (Normal) Urine-Color Yellow (Normal) pH 6.0 (Normal) Range: 5.0-7.5 Specific Patrick 1.024 (Normal) Range: 1.005-1.030 :44 MICROALBUMIN: CREATININE RATIO Comments: PATIENT WAS FASTINGPERFORMED BY: [place] [employer] Vmmlts9769 [facility] [id number] (23368) AND (53186) Microalb/Creat Ratio 1.1 {mg/g_creat} (Normal) Range: 0.0-30.0 Microalbumin, Urine 3.2 ug/mL (Normal) Range: 0.0-17.0 Creatinine, Urine 294.1 mg/dL (Normal) Range: 22.0-328.0 :44 Microscopic Examination Comments: PATIENT WAS FASTINGPERFORMED BY: Yo-Fi WellnessKessler Institute for RehabilitationXlcdta9000 [facility] [id number] Bacteria None seen (Normal) Mucus Threads Present (Normal) Epithelial Cells (non renal) None seen {/hpf} (Normal) Range: 0 - 10 RBC 0-3 {/hpf} (Normal) Range: 0 - 3 WBC 0-5 {/hpf} (Normal) Range: 0 - 5 :44 METABOLIC PANEL, COMPREHENSIVE Comments: PATIENT WAS FASTINGPERFORMED BY: [employer]6370 [facility] [id number] (38913) ALT (SGPT) 21 [iU]/L (Normal) Range: 0-55 [...] mg/dL (Abnormal) Range: 65-99 :44 LIPID PANEL (35719) Comments: PATIENT WAS FASTINGPERFORMED BY: [employer] Jfkgqa1177 [facility] [id number] LDL/HDL Ratio 1.2 {ratio_units} (Normal) Range: 0.0-3.6 [...] MANUAL DIFF Comments: PATIENT WAS FASTINGPERFORMED BY: [employer]6370 [facility] [id number] Information: [id number] (26792) Immature Grans (Abs) 0.0 {x10E3/uL} (Normal) Range: [...] (Normal) Range: 4.0-10.5 :25 HgA1C , Office (23322) HgA1C , Office 6.2 % (Normal) Range: 4.6 - 7.1 :25 Blood Glucose , Office (03636) Blood Glucose , Office 84 (Normal) :56 Blood Glucose , Office (94440) Blood Glucose , Office 96 (Normal) 5-Mhf-451425:29 SPINE, LUMBAR (ROUTINE) Radiology Report See Note [...] HEATHER FONTENOT MD :08 HgA1C , Office (83512) HgA1C , Office 6.3 % (Normal) Range: 4.6 - 7.1 :08 Blood Glucose , Office (26967) Blood Glucose , Office 108 (Normal) :50 URINALYSIS, W/ MICRO (40066) Comments: PATIENT WAS FASTINGPERFORMED BY: [employer] sentronicsShang[employer] [place] [id number] Microscopic Examination See below: (Normal) Microscopic Examination MICRON (Normal) Comments: Microscopic follows if indicated. Nitrite, Urine Negative (Normal) Urobilinogen,Semi-Qn 0.2 mg/dL (Normal) Range: 0.0-1.9 Bilirubin Negative (Normal) Occult Blood Negative (Normal) Ketones Negative (Normal) Glucose Negative (Normal) Protein Negative (Normal) WBC Esterase Negative (Normal) Appearance Clear (Normal) Urine-Color Yellow (Normal) pH 5.5 (Normal) Range: 5.0-7.5 Specific Patrick 1.022 (Normal) Range: 1.005-1.030 :50 MICROALBUMIN: CREATININE RATIO Comments: PATIENT WAS FASTINGPERFORMED BY: [employer] sentronicsPending sale to [facility] [id number] (16605) AND (33281) Microalb/Creat Ratio <.6 {mg/g_creat} (Normal) Range: 0.0-30.0 Creatinine, Urine 163.1 mg/dL (Normal) Range: 22.0-328.0 Microalbumin, Urine <1.0 ug/mL (Normal) Range: 0.0-17.0 Comments: Verified by repeat analysis :50 METABOLIC PANEL, COMPREHENSIVE Comments: PATIENT WAS FASTINGPERFORMED BY: Maximus70 [employer] [facility] [id number] (72675) ALT (SGPT) 16 [iU]/L (Normal) Range: 0-55 [...] mg/dL (Abnormal) Range: 65-99 :50 LIPID PANEL (26283) Comments: PATIENT WAS FASTINGPERFORMED BY: [employer] [facility] [id number] LDL Cholesterol Calc 68 mg/dL (Normal) Range: [...] DIFF Comments: PATIENT WAS FASTINGPERFORMED BY: [facility] Vbcyph6747 [facility] [id number] Information: [id number] (43017) Immature Grans (Abs) 0.0 {x10E3/uL} (Normal) Range: [...] Microscopic Examination Comments: PATIENT WAS FASTINGPERFORMED BY: [employer] Ewsjkn6579 [facility] [id number] Bacteria Few (Normal) Mucus Threads Present (Normal) Epithelial Cells (non renal) None seen {/hpf} (Normal) Range: 0 - 10 RBC None seen {/hpf} (Normal) Range: 0 - 3 WBC 0-5 {/hpf} (Normal) Range: 0 - 5 :58 HgA1C , Office (66544) HgA1C , Office 6.0 % (Normal) Range: 4.6 - 7.1 :58 Blood Glucose , Office (45719) Blood Glucose , Office 93 (Normal) :13 PSA (PROSTATE SPECIFIC Comments: PATIENT NOT FASTINGPERFORMED BY: [employer] Feftbb0448 [facility] [id number] Information: [id number] ANTIGEN) (V76.44) Prostate Specific Ag, 1.5 ng/mL (Normal) Range: 0.0-4.0 Serum Comments: Dee ECLIA methodology. .According to the [place] U[employer], Serum PSA shoulddecrease and remain [...] of malignant disease. :16 HgA1C , Office (14052) HgA1C , Office 6.2 % (Normal) Range: 4.6 - 7.1 :16 Blood Glucose , Office (11923) Blood Glucose , Office 196 (Normal) 7-Psf-797360:15 TSH (92496) Comments: PATIENT WAS FASTINGPERFORMED BY: [facility]tooBeaumont Hospital6370 [facility] [id number] TSH 3.200 {uIU/mL} (Normal) Range: 0.450-4.500 8-Jif-011869:15 MICROALBUMIN: CREATININE RATIO Comments: PATIENT WAS FASTINGPERFORMED BY: [facility] Hospital6370 [facility] [id number] (84457) AND (02805) Creatinine, Urine 168.7 mg/dL (Normal) Range: 22.0-328.0 Microalb/Creat Ratio 1.5 {mg/g_creat} (Normal) Range: 0.0-30.0 Microalbumin, Urine 2.5 ug/mL (Normal) Range: 0.0-17.0 7-Enk-948760:15 METABOLIC PANEL, COMPREHENSIVE Comments: PATIENT WAS FASTINGPERFORMED BY: Yo-Fi WellnessKessler Institute for RehabilitationTlcfqw8277 [facility] [id number] ([id number]) A/G Ratio 1.8 (Normal) Range: 1.1-2.5 Alkaline [...] Glucose, Serum 108 mg/dL (Abnormal) Range: 65-99 4-Nnz-476550:15 LIPID PANEL (99962) Comments: PATIENT WAS FASTINGPERFORMED BY: [employer]6370 [facility] [id number] LDL/HDL Ratio 1.8 {ratio_units} (Normal) Range: 0.0-3.6 HDL Cholesterol 49 mg/dL (Normal) Comments: According to ATP-III Guidelines, HDL-C >59 mg/dL is considered anegative risk factor for CHD. LDL Cholesterol Calc 86 mg/dL (Normal) Range: 0-99 VLDL Cholesterol Ezequiel 25 mg/dL (Normal) Range: 5-40 Cholesterol, Total 160 mg/dL (Normal) Range: 100-199 Triglycerides 123 mg/dL (Normal) Range: 0-149 3-Iuz-333722:15 CBC WITH MANUAL DIFF Comments: PATIENT WAS FASTINGPERFORMED BY: Maximus70 [facility] [id number] Information: [id number] (33932) Immature Grans (Abs) 0.0 {x10E3/uL} (Normal) Range: [...] (Normal) Range: 4.0-10.5 :53 HgA1C , Office (56922) HgA1C , Office 6.3 % (Normal) Range: 4.6 - 7.1 :53 Blood Glucose , Office (99740) Blood Glucose , Office 123 (Normal) :51 HgA1C , Office (64304) HgA1C , Office 6.2 % (Normal) Range: 4.6 - 7.1 :51 Blood Glucose , Office (34820) Blood Glucose , Office 93 (Normal) 32-Efi-002207:01 Microscopic Examination Comments: PATIENT WAS FASTINGPERFORMED BY: LabCoKessler Institute for RehabilitationOehjem7768 [facility] [id number] Bacteria Few (Normal) Mucus Threads Present (Normal) Epithelial Cells (non renal) None seen {/hpf} (Normal) Range: 0 - 10 RBC 0-3 {/hpf} (Normal) Range: 0 - 3 WBC 0-5 {/hpf} (Normal) Range: 0 - 5 17-Skz-011281: PSA (PROSTATE SPECIFIC Comments: PATIENT WAS FASTINGPERFORMED BY: [employer] [facility] [id number] ANTIGEN) (V76.44) Prostate Specific Ag, 1.4 ng/mL (Normal) Range: 0.0-4.0 Serum Comments: VideoJaxIA methodology..According to the [place] [employer], Serum PSA shoulddecrease and remain at undetectable levels after radicalprostatectomy. The AUA defines biochemical recurrence a s an initialPSA value 0.2 ng/mL or greater followed by a subsequent confirmatoryPSA value 0.2 ng/mL or greater.Values obtained with different assay methods or kits cannot be usedinterchangeably. Results cannot be interpreted as absolute evidenceof the presence or absence of malignant disease. : TSH (27908) Comments: PATIENT WAS FASTINGPERFORMED BY: Maximus70 [facility] [id number] TSH 3.670 {uIU/mL} (Normal) Range: 0.450-4.500 72-Gmf-838173: URINALYSIS, W/ MICRO (20314) Comments: PATIENT WAS FASTINGPERFORMED BY: [employer]6370 [facility] [id number] Microscopic Examination See below: (Normal) Bilirubin Negative (Normal) Microscopic Examination MICRON (Normal) Comments: Microscopic follows if indicated. Nitrite, Urine Negative (Normal) Urobilinogen,Semi-Qn 0.2 mg/dL (Normal) Range: 0.0-1.9 Glucose Negative (Normal) Ketones Negative (Normal) Occult Blood Negative (Normal) Protein Negative (Normal) WBC Esterase Negative (Normal) Appearance Clear (Normal) pH 6.0 (Normal) Range: 5.0-7.5 Specific Patrick 1.024 (Normal) Range: 1.005-1.030 Urine-Color Yellow (Normal) 65-Gxx-095961: MICROALBUMIN: CREATININE RATIO Comments: PATIENT WAS FASTINGPERFORMED BY: Maximus70 [facility] [id number] (44689) AND (95009) Microalb/Creat Ratio <.4 {mg/g_creat} (Normal) Range: 0.0-30.0 Microalbumin, Urine <1.0 ug/mL (Normal) Range: 0.0-17.0 Creatinine, Urine 226.9 mg/dL (Normal) Range: 22.0-328.0 86-Bbi-054986:01 METABOLIC PANEL, COMPREHENSIVE Comments: PATIENT WAS FASTINGPERFORMED BY: LabBeaumont Hospital6370 [facility] [id number] (52934) A/G Ratio 2.0 (Normal) Range: 1.1-2.5 Alkaline [...] Glucose, Serum 93 mg/dL (Normal) Range: 65-99 44-Xcp-141689:01 LIPID PANEL (42718) Comments: PATIENT WAS FASTINGPERFORMED BY: Yo-Fi WellnessKessler Institute for RehabilitationSmvaef5676 [facility] [id number] HDL Cholesterol 46 mg/dL (Normal) Comments: According to ATP-III Guidelines, HDL-C >59 mg/dL is considered anegative risk factor for CHD. LDL Cholesterol Calc 70 mg/dL (Normal) Range: 0-99 LDL/HDL Ratio 1.5 {ratio_units} (Normal) Range: 0.0-3.6 VLDL Cholesterol Ezequiel 18 mg/dL (Normal) Range: 5-40 Cholesterol, Total 134 mg/dL (Normal) Range: 100-199 Triglycerides 89 mg/dL (Normal) Range: 0-149 03-Qbu-907415:01 CBC WITH MANUAL DIFF Comments: PATIENT WAS FASTINGPERFORMED BY: LabCoKessler Institute for RehabilitationOhcedm8225 [facility] [id number] Information: [id number] (33855) Baso (Absolute) 0.0 {x10E3/uL} (Normal) Range: 0.0-0.2 [...] (Normal) Range: 4.0-10.5 :59 HgA1C , Office (10991) HgA1C , Office 6.6 % (Normal) Range: 4.6 - 7.1 :59 Blood Glucose , Office (71559) Blood Glucose , Office 105 (Normal) :29 HgA1C , Office (08771) Comments: done km HgA1C , Office 7.2 % (Abnormal) Range: 4.6 - 7.1 :29 Blood Glucose , Office (84091) Comments: done Blood Glucose , Office 134 (Normal) :04 HgA1C , Office (01936) Comments: done km HgA1C , Office 6.7 % (Normal) Range: 4.6 - 7.1 :04 Blood Glucose , Office (04650) Comments: done Blood Glucose , Office 141 (Normal) :27 TSH (81029) Comments: PATIENT WAS FASTINGPERFORMED BY: Yo-[facility] WellnessKessler Institute for RehabilitationVjirwn7322 [facility] [id number] TSH 3.740 {uIU/mL} (Normal) Range: 0.450-4.500 :27 METABOLIC PANEL, COMPREHENSIVE Comments: PATIENT WAS FASTINGPERFORMED BY: [place] DIGITAL MEDIAKessler Institute for RehabilitationNcfrxv8843 [facility] [id number] (77802) A/G Ratio 1.7 (Normal) Range: 1.1-2.5 Albumin, [...] Range: 135-145 25-Oct-20089:27 LIPOPROTEIN, BLD, BY NMR (34636) Comments: PATIENT WAS FASTINGClinical Information: ADD [id number], [id number] PERFORMED BY: [facility]6370 [facility] [id number] Cholesterol, Total 149 mg/dL (Normal) HDL-C 41 [...] mg/dL (Normal) 25-Oct-20089:27 CBC WITH MANUAL DIFF (01374) Comments: PATIENT WAS FASTINGPERFORMED BY: LabCoKessler Institute for RehabilitationQtxuje3870 [facility] [id number] Baso (Absolute) 0.0 {x10E3/uL} (Normal) Range: 0.0-0.2 [...] (Normal) Range: 4.0-10.5 :55 HgA1C , Office (32606) Comments: done km HgA1C , Office 5.9 % (Normal) Range: 4.6 - 7.1 :55 Blood Glucose , Office (03829) Comments: done km Blood Glucose , Office 115 (Normal) 18-Yud-925260:10 TSH (41004) Comments: REpeat first week in September; PATIENT NOT FASTINGClinical Information: ADD DRAW FEE [id number] ADD J 64032 PERFORMED BY: [place] DIGITAL MEDIAKessler Institute for RehabilitationRksefe5566 [facility] [id number] TSH 3.800 {uIU/mL} (Normal) Range: 0.450-4.500 74-Chg-018115:48 TSH (43843) Comments: PATIENT WAS FASTINGPERFORMED BY: Solasta Pwyfnp3282 [facility] [id number] TSH 4.538 {uIU/mL} (Abnormal) Range: 0.450-4.500 81-Qmg-244166:48 MICROALBUMIN: CREATININE RATIO Comments: PATIENT WAS FASTINGPERFORMED BY: Yo-Fi WellnessKessler Institute for RehabilitationOhpaby[address] [place] [address] [id number] (91757) AND (79801) Creatinine, Urine 370.1 mg/dL (Abnormal) Range: 22.0-328.0 Microalb/Creat Ratio 1.0 {ug/mg_creat} (Normal) Range: 0.0-30.0 Microalbumin, Urine 3.7 ug/mL (Normal) Range: 0.0-17.0 61-Qfx-324767:48 METABOLIC PANEL, COMPREHENSIVE Comments: PATIENT WAS FASTINGPERFORMED BY: Yo-Fi WellnessLori Ville 9826470 [facility] [id number] (73358) A/G Ratio 1.6 (Normal) Range: 1.1-2.5 Albumin, [...] Sodium, Serum 140 mmol/L (Normal) Range: 135-145 89-Xat-457990:48 CBC WITH MANUAL DIFF (28997) Comments: PATIENT WAS FASTINGClinical Information: ADD DRAW FEE [id number] ADD J [id number] PERFORMED BY: LabBruce V[place] 3310770 [facility] [id number] Baso (Absolute) 0.0 {x10E3/uL} (Normal) Range: 0.0-0.2 [...] {x10E3/uL} (Normal) Range: 4.0-10.5 :48 LIPID PANEL (65231) Comments: PATIENT WAS FASTINGPERFORMED BY: [facility]6370 [facility] [id number] Cholesterol, Total 171 mg/dL (Normal) Range: 100-199 HDL Cholesterol 45 mg/dL (Normal) Comments: According to ATP-III Guidelines, HDL-C >59 mg/dL is considered anegative risk factor for CHD. LDL Cholesterol Calc 99 mg/dL (Normal) Range: 0-99 LDL/HDL Ratio 2.2 {ratio_units} (Normal) Range: 0.0-3.6 Triglycerides 133 mg/dL (Normal) Range: 0-149 VLDL Cholesterol Ezequiel 27 mg/dL (Normal) Range: 5-40 04-Xrv-495668:24 HgA1C , Office (16301) Comments: done km HgA1C , Office 6.5 % (Normal) Range: 4.6 - 7.1 :24 Blood Glucose , Office (82039) Comments: done Blood Glucose , Office 113 (Normal) :38 HgA1C , Office (73342) Comments: done sylvain HgA1C , Office 6.0 % (Normal) Range: 4.6 - 7.1 :38 Blood Glucose , Office (34499) Comments: done Blood Glucose , Office 132 (Normal) :09 PSA,TOT SCREEN 1.30 ng/mL (Normal) Range: 0.00-4.00 Comments: This test was performed using the TPSA method for theEc[employer] chemistry system.Values obtained with different assay methods cannot be usedinterchangably.When changing PSA assays in the course of monito ring apatient, additional sequential testing should be carriedout to confirm baseline values. :00 HgA1C , Office (60329) Comments: done sylvain HgA1C , Office 7.4 % (Abnormal) Range: 4.6 - 7.1 :00 Blood Glucose , Office (64409) Comments: done Blood Glucose , Office 138 (Normal) :32 MYOCARD PERF SPECT REST/STRESS Radiology Report See Note (Normal) Comments: Exam Number: [id number] MYOCARDIAL PERFUSION SCAN TECHNIQUEThe patient was injected [...] of 60%. Reported By: LOUIS CASTILLO M.D. 51-Cab-685128:27 URINALYSIS W/O MICRO (90554) Comments: PATIENT WAS FASTINGPERFORMED BY: Maximus70 [employer] [facility]Birks [facility] MayorsPending sale to [facility] [id number] Appearance Clear (Normal) Bilirubin Negative (Normal) Glucose Negative (Normal) Ketones Negative (Normal) Microscopic Examination MICRON (Normal) Comments: Microscopic follows if indicated. Nitrite, Urine Negative (Normal) Occult Blood Negative (Normal) pH 7.5 (Normal) Range: 5.0-7.5 Protein Trace (Normal) Specific Patrick 1.023 (Normal) Range: 1.005-1.030 Urine-Color Yellow (Normal) Urobilinogen,Semi-Qn 0.2 mg/dL (Normal) Range: 0.0-1.9 WBC Esterase Negative (Normal) 50-Wbt-992569:27 TSH (61709) Comments: PATIENT WAS FASTINGPERFORMED BY: [employer]6370 [facility] [id number] TSH 3.505 {uIU/mL} (Normal) Range: 0.350-5.500 Comments: Adult TSH concentrations below 5.5 uIU/mL do not rule out the presence of subclinical hypothyroidism. :27 MICROALBUMIN URINE QUANT Comments: PATIENT WAS FASTINGPERFORMED BY: [facility]6370 [facility] [id number] (94145) Microalbum.,U,Random 4.4 ug/mL (Normal) Range: 0.0-17.0 :27 METABOLIC PANEL, COMPREHENSIVE Comments: PATIENT WAS FASTINGPERFORMED BY: LabBeaumont Hospital6370 [facility] [id number] (37819) A/G Ratio 1.8 (Normal) Range: 1.1-2.5 Albumin, [...] Serum 132 mg/dL (Abnormal) Range: 65-99 If -Maldivian >60 mL/min (Normal) Range: 60-137 Comments: Note: [...] Range: 135-145 :27 CBC WITH MANUAL DIFF (80149) Comments: PATIENT WAS FASTINGClinical Information: ADD [id number], ADD [id number] PERFORMED BY: Maximus70 [facility] [id number] Baso (Absolute) 0.0 {x10E3/uL} (Normal) Range: 0.0-0.2 [...] 11.7-15.0 WBC 5.5 {x10E3/uL} (Normal) Range: 4.0-10.5 25-Cbk-063336:27 LIPID PANEL (16493) Comments: PATIENT WAS FASTINGPERFORMED BY: Solasta Vnkvlk2172 [facility] [id number] LDL/HDL Ratio 2.4 {ratio_units} (Normal) Range: 0.0-3.6 Cholesterol, Total 212 mg/dL (Abnormal) Range: 100-199 Comment SPRCS (Normal) Comments: If initial LDL-cholesterol result is >100 mg/dL, assess forrisk factors. HDL Cholesterol 52 mg/dL (Normal) Range: 40-59 LDL Cholesterol Calc 123 mg/dL (Abnormal) Range: 0-99 Triglycerides 184 mg/dL (Abnormal) Range: 0-149 VLDL Cholesterol Ezequiel 37 mg/dL (Normal) Range: 5-40 :28 HgA1C , Office (32006) Comments: done HgA1C , Office 6.9 % (Normal) Range: 4.6 - 7.1 :28 Blood Glucose , Office (29163) Comments: done Blood Glucose , Office 157 (Normal) :58 HgA1C , Office (51529) Comments: done HgA1C , Office 6.6 % (Normal) Range: 4.6 - 7.1 :58 Blood Glucose , Office (46468) Comments: done Blood Glucose , Office 136 [...] was performed using the TPSA method for the[employer] chemistry system.Values obtained with different assay methods cannot be usedinterchangably.When changing PSA assays in the course of monito ring apatient, additionaly sequential testing should be carriedout to confirm baseline values. :29 TSH 3.67 {uIU/mL} (Normal) Range: 0.34-4.82 :39 Blood Glucose , Office (76816) Comments: done km Blood Glucose , Office 98 (Normal) :39 HgA1C , Office (58180) Comments: done km HgA1C , Office 6.5 % (Normal) Range: 4.6 - 7.1 :57 HgA1C , Office (34123) HgA1C , Office 6.5 % (Normal) Range: 4.6 - 7.1 7-Eiy-983817:57 Blood Glucose , Office (46069) Blood Glucose , Office 138 (Normal) :03 HgA1C , Office (53976) HgA1C , Office 6.6 % (Normal) Range: 4.6 - 7.1 3-Wct-269114:03 Blood Glucose , Office (22352) Blood Glucose , Office 92 (Normal) 36-Okn-713889:28 LIVER ALB 3.6 g/dL (Normal) Range: 3.4-5.0 ALK P 96 U/L (Normal) Range: 50-136 ALT 47 [iU]/L (Normal) Range: 30-65 AST 20 U/L (Normal) Range: 15-37 D BILI 0.08 mg/dL (Normal) Range: 0.00-0.30 T BILI 0.44 mg/dL (Normal) Range: 0.00-1.00 T PROT 6.9 g/dL (Normal) Range: 6.4-8.2 98-Glu-556520:28 MICROALB:CRE UR MALB:CREAT 8.4 {mg/g_CRE} (Normal) MICROALBUMIN,UR 11.6 mg/L (Normal) UR CREAT 138.8 mg/dL (Normal) 86-Gya-334206:28 PFLIP CHOL 188 mg/dL (Normal) Comments: <200 [...] 1 month- gen med / [facility] Indication: Physical exam WITHOUT abnormal findings [...] from H/O transient cerebral ischemia) : Reviewed [employer] Handicapper Letter Indication: History of transient cerebral ischemia (Renamed from H/O transient cerebral ischemia) Hypertensive urgency : Reviewed [employer] Handicapper Letter Indication: Hypertensive urgency Heart disease, hypertensive, [...] Current Prescription(s) Indication: Hypothyroidism Hypothyroidism : Reviewed [employer]ic[employer] Letter Indication: Hypothyroidism Uncontrolled type II diabetes [...] from there Planned Observations T4, FREE (THYROXINE) (24290)Indication: Hypothyroidism On: :48 Request T3, FREE (TRIDOTHYRONINE) (52546)Indication: Hypothyroidism On: :48 Request URINALYSIS, W/ MICRO (15968)Indication: Essential hypertension On: :47 Request MICROALBUMIN: CREATININE RATIO (51605) AND (26461)Indication: Essential hypertension On: :47 Request METABOLIC PANEL, COMPREHENSIVE (14695)Indication: Essential hypertension On: :47 Request CBC W/AUTO DIFF WBC (77507)Indication: Essential hypertension On: :47 Request LIPID PANEL (78916)Indication: Hypercholesterolemia On: :47 Request TSH (21584)Indication: Hypothyroidism On: :47 Request CALCIFIDIOL (70970) VIT D 25Indication: Vitamin D deficiency On: :47 Request Influenza A&B Viral Culture (12435)Indication: Flu-like symptoms On: 1-Eco-189534:53 Request POTASSIUM SERUM (11981)Indication: Potassium disorder On: 91-Ixo-596091:53 Request CALCIFEDIOL (80618)Indication: Vitamin D deficiency On: 94-Gqg-61085:36 Request TSH (26389)Indication: Hypothyroidism On: 36-Hlx-15608:35 Request Lipid Panel (74638)Indication: Hypercholesterolemia On: :34 Request Metabolic Panel, Comprehensive (99731)Indication: Hypercholesterolemia On: 62-Tke-57643:34 Request URINE VMA (52499)Indication: Hypertensive urgency On: 31-Ptw-073399:54 Request Catecholamines,24-Hour Urine (39157)Indication: Hypertensive urgency On: 43-Maw-606408:54 Request RENIN (58558)Indication: Hypertensive urgency On: 17-Zis-296602:54 Request ALDOSTERONE (08835)Indication: Hypertensive urgency On: 84-Ebt-514884:54 Request METANEPHRINES (59787)Indication: Hypertensive urgency On: 37-Orr-801383:54 Request CBC (Auto) (74778)Indication: Hypertensive urgency On: 27-Cmv-856730:36 Request Metabolic Panel, Basic (34861)Indication: Hypertensive urgency On: 21-Dvn-545375:36 Request TSH (73770)Indication: Hypertensive urgency On: 13-Pix-906266:24 Request CBC WITH MANUAL DIFF (61733)Indication: Hypertensive urgency On: 72-Rsv-353610:24 Request METABOLIC PANEL, COMPREHENSIVE (29294)Indication: Hypertensive urgency On: 55-Vao-394853:24 Request Troponin I (24353)Indication: Hypertensive urgency On: 81-Qxi-638322:20 Request CPK MB FRACTION (50983)Indication: Hypertensive urgency On: 48-Hrm-330986:20 Request CREATINE KINASE TOTAL (12701)Indication: Hypertensive urgency On: 12-Trx-135879:20 Request TSH (25319)Indication: Hypothyroidism On: 54-Yph-903279:56 Request HgA1C , Office (66172)Indication: Controlled diabetes mellitus type II without complication On: 45-Qgc-33393:56 Request PSA (PROSTATE SPECIFIC ANTIGEN) (V76.44)Indication: Screening for prostate cancer On: 33-Pxp-62910:20 Request TSH (64150)Indication: Uncontrolled type II diabetes mellitus On: :19 Request URINALYSIS, W/ MICRO (38403)Indication: Uncontrolled type II diabetes mellitus On: :19 Request MICROALBUMIN: CREATININE RATIO (60209) AND (87502)Indication: Uncontrolled type II diabetes mellitus On: :19 Request METABOLIC PANEL, COMPREHENSIVE (42828)Indication: Uncontrolled type II diabetes mellitus On: :19 Request LIPOPROTEIN, BLD, BY NMR (79443)Indication: Uncontrolled type II diabetes mellitus On: :19 Request LIPID PANEL (21124)Indication: Uncontrolled type II diabetes mellitus On: :19 Request CBC WITH MANUAL DIFF (16650)Indication: Uncontrolled type II diabetes mellitus On: :19 Request LIPOPROTEIN, BLD, BY NMR (68601)Indication: Hypercholesterolemia On: :57 Request LIPID PANEL (09900)Indication: Hypercholesterolemia On: :57 Request Comments: do in 3 months LIPID PANEL (57873)Indication: Controlled diabetes mellitus type II without complication On: :22 Request T3, FREE (TRIDOTHYRONINE) (65202)Indication: Abnormal TSH On: :40 Request T4, FREE (THYROXINE) (32835)Indication: Abnormal TSH On: :40 Request TSH (58632)Indication: Abnormal TSH On: :40 Request Comments: do in 2-3 mo TSH (54225)Indication: Controlled diabetes mellitus type II without complication On: 38-Bbu-449756:29 Request METABOLIC PANEL, COMPREHENSIVE (06900)Indication: Controlled diabetes mellitus type II without complication On: 35-Fhx-269081:29 Request MICROALBUMIN: CREATININE RATIO (84589) AND (17895)Indication: Controlled diabetes mellitus type II without complication On: :29 Request CBC WITH MANUAL DIFF (34922)Indication: Controlled diabetes mellitus type II without complication On: 26-Vft-434114:29 Request LIPID PANEL (84416)Indication: Controlled diabetes mellitus type II without complication On: 97-Wyh-055234:29 Request PSA (PROSTATE SPECIFIC ANTIGEN) (V76.44)Indication: Uncontrolled type II diabetes mellitus On: :18 Request LIPID PANEL (75688)Indication: Hypercholesterolemia On: 17-Buo-472742:02 Request HEPATIC FUNCTION PANEL (55201)Indication: Hypercholesterolemia On: 17-Ars-013456:02 Request TSH (58283) On: :45 Request METABOLIC PANEL, COMPREHENSIVE (71477) On: :44 Request LIPID PANEL (68923) On: :44 Request CBC WITH MANUAL DIFF (99645) On: :44 Request PSA (PROSTATE SPECIFIC ANTIGEN) (85091) On: 1-Dnj-192596:17 Request Comments: screening TSH (51602) On: Request URINALYSIS W/O MICRO (67283) On: Request MICROALBUMIN URINE QUANT (88983) On: Request LIPID PANEL (01385) On: Request METABOLIC PANEL, COMPREHENSIVE (13665) On: Request CBC WITH MANUAL DIFF (75883) On: Request MICROALBUMIN: CREATININE RATIO (08284) On: Request AND (64181) METABOLIC PANEL, COMPREHENSIVE (41630) On: Request LIPID PANEL (23248) On: Request CBC WITH MANUAL DIFF (84972) On: Request Planned Procedures PNEUM VAC ADLT/IMUMNOSPR, SBC/INTRM On: 07-Feb-2018 Intent (09956)By: Denisa Macias DO Comments: 0.5 cc given sq lt arm lot [id number] exp 04/21/19 Denisa Macias DO X-RAY OF RIGHT HAND, ONE OR TWO On: 07-Feb-2018 Intent VIEWS (85457)By: Denisa Macias DO Comments: attention to hypothenar area for FB Denisa Macias DO TD VACCINE ADULT (69032)By: Venkata On: 23-Dec-2017 Intent Anne Comments: a105a3/82018.5mlr dltd, IMMLONG Flu Vaccine (Quadrivalent) 99281Ld: On: 28-Nov-2017 Intent Visit, Nurse Comments: Lot #[id number]/Site-L dltd, IMDose prefilled syringegiven by: Genna VARGAS.VIS reviewed and ABN signed X-RAY RIGHT KNEE, 3 VIEWS (42287)By: On: 31-Jul-2017 Intent Denisa Macias DO, DO, Kathleen Radiology - Knee - Right - Weight On: 31-Jul-2017 Intent BearingBy: Denisa Macias DO, DO, Kathleen ELECTROCARDIOGRAM, COMPLETE (ECG) On: 31-Jul-2017 Intent (14817)By: Denisa Macias DO Comments: nsr no acute chg Denisa Macias DO CT - Brain/Head (IV Contrast On: 31-Dec-2016 Intent Needed)By: Denisa Macias DO, DO, Kathleen Echo CompleteBy: Denisa Macias DO On: 31-Dec-2016 Intent Denisa Macias DO OBFW-QY-SMUZ BEHAVIORAL COUNSELING On: 31-Dec-2016 Intent FOR OBESITY, 15 MINUTES (G0447)By: Denisa Macias DO, DO, Kathleen Flu Vaccine (Quadrivalent) 62629Ki: On: 17-Dec-2016 Intent Denisa Macias DO, DO, Comments: Lot:[id number]:09/09/17Amt:0.5mlRoute:IMSite: L DltdGiven By: YURY Valdez signed Denisa MAGNETIC RESONANCE ANGIOGRAPHY OF On: 24-Sep-2016 Intent CAROTID AND VERTEBRAL VESSELS (62863)By: Denisa Macias DO, DO, Kathleen ELECTROCARDIOGRAM, COMPLETE (ECG) On: 24-Sep-2016 Intent (46234)By: Denisa Macias DO Comments: sinus gabby no acute chg- on BB Denisa Macias DO Renal Duplex ScanBy: Colleen GARCIA, On: 24-Sep-2016 Intent Denisa Valladares DO ELECTROCARDIOGRAM, COMPLETE (ECG) On: 10-Sep-2016 Intent (37413)By: Denisa Macias DO Comments: sinus gabby no acute chg Denisa Macias DO CT HEAD OR BRAIN WO CONTRAST On: 21-May-2016 Intent (82678)By: Denisa Macias DO, DO, Kathleen Flu Vaccine (Quadrivalent) 85954Ju: On: 23-Dec-2015 Intent Emeka Levin Comments: FLUlot: [id number]:08/08site:Lt deltoidroute:IMdose:.5mlDEMICK, MA Echo CompleteBy: Denisa Macias DO On: 24-Oct-[address] SCAN OF CHEST WITH CONTRAST On: 24-Oct-2015 Intent (83646)By: Denisa Macias DO, DO, Kathleen CT - Chest (IV Contrast Needed)By: On: 20-Jun-2015 Intent Denisa Macias DO, DO, Kathleen Echo CompleteBy: Denisa Macias DO On: 21-Feb-2015 Intent Denisa Macias DO Flu Vaccine (Quadrivalent) 78923Dw: On: 05-Jan-2015 Intent Denisa Macias DO, DO, Comments: lot [id number]: 09/22/2015site/route L rafa, IMamt 0.5mlVIS and ABN signed when applicableChelsea, CMA4 Denisa ELECTROCARDIOGRAM, COMPLETE (ECG) On: 16-Nov-2014 Intent (31141)By: Denisa Macias DO Comments: nsr no acute changes - Denisa Macias DO Prevnar 13 (86037)By: Colleen GARCIA, On: 10-May-2014 Intent Denisa Valladares DO Comments: Lot:[id number]:08/07Dose:0.5mgRoute:imSite:l armGiven By:MIGUEL ÁNGEL signed Inhaler Demonstration (81638)By: On: 23-Mar-2014 Intent Hayley Stone CNP ADMINISTRATION OF INFLUENZA VIRUS On: 25-Dec-2013 Intent VACCINE (G0008)By: Visit, Nurse Comments: Lot #[id number]-L dltd, IMDose prefilled syringegiven by:YURY Seymour and ABN signed FLU VAC, SPLIT, >3 YEARS, INTRAMUSC On: 25-Dec-2013 Intent (08161)By: Visit, Nurse EKG (85883)By: Denisa Macias DO On: 08-Oct-2013 Intent Denisa [...] PNEUM VAC ADLT/IMUMNOSPR, SBC/INTRM On: 19-Dec-2012 Intent (55910)By: Marge Smith Comments: Lot:[id number]:10/25/13Dose:0.5mgRoute:imSite:r armGiven By:MIGUEL ÁNGEL signed ADMINISTRATION OF PNEUMOCOCCAL On: 19-Dec-2012 Intent VACCINE (G0009)By: Marge Smith FLU VAC, SPLIT, >3 YEARS, INTRAMUSC On: 17-Dec-2012 Intent (37586)By: Anne Edge LPN Comments: Lot:[id number]:6.14Amt:0.5mlRoute:IMSite: L DltdGiven By: YURY Valdez signed Eprescribed [...] On: 04-Aug-2012 Intent Denisa Colleen DODenisa EKG (43817)By: ColleenDenisa pratt DO On: 28-Jul-2012 Intent Denisa Macias DO Comments: nsr no acute changes Echo CompleteBy: Colleen DOInesDenisa On: 21-Mar-2012 Intent Colleen DODenisa Echo CompleteBy: Colleen DO Denisa On: 19-Mar-2012 Intent Denisa Macias DO Eprescribed prescriptions (G8553)By: On: 13-Mar-2012 Intent Anne Edge LPN Eprescribed prescriptions (G8553)By: On: 31-Dec-2011 Intent Denisa Macias DO, DO, Kathleen Nuclear Medicine - HIDA w/CPKBy: On: 19-Dec-2011 Intent Ciesa SEO TEAM LEAD, Supriya EKG ([id number])By: Denisa Macias DO On: 13-Dec-2011 Intent Denisa Macias DO Comments: nsr no acute chg Ultrasound - GallbladderBy: Colleen On: 29-Nov-2011 Intent Denisa GARCIA DO, Kathleen Eprescribed prescriptions ([id number])By: On: 29-Nov-2011 Intent Anne Edge LPN FLU VAC, SPLIT, >3 YEARS, INTRAMUSC On: 27-Nov-2011 Intent ([id number])By: Marissa Palomino LPN Comments: Lot #[id number]-left deltoidgiven by: Todd Palomino LPN ADMINISTRATION OF INFLUENZA VIRUS On: 27-Nov-2011 Intent VACCINE ([id number])By: Marissa Palomino LPN MRI - Lumbar Spine (IV Contrast On: 26-Jan-2011 Intent Needed)By: Denisa Macias DO, DO, Kathleen EKG ([id number])By: Denisa Macias DO On: 05-Jan-2011 Intent Denisa Macias DO Comments: nsr no acute chg Cartoid DopplerBy: Colleen GARCIA, On: 05-Jan-2011 Intent Denisa Valladares DO EKG ([id number])By: Denisa Macias DO On: 06-Dec-2010 Intent Denisa Macias DO Comments: nsr no acute chgn- Bio Z ([id number])By: Denisa Macias DO On: 06-Dec-2010 Intent Denisa Macias DO Comments: stabel parameters- no chg in rx IMMUNIZ ADMNIN, 1 VAC, SNGL/COMBO On: 06-Dec-2010 Intent ([id number])By: Denisa Macias DO, DO, Kathleen FLU VAC, SPLIT, >3 YEARS, INTRAMUSC On: 06-Dec-2010 Intent ([id number])By: Denisa Macias DO, DO, Kathleen TDAP VACCINE >7 IM ([id number])By: Colleen On: 30-Aug-2010 Denisa Izquierdo DO, DO, Kathleen Comments: Lot #[id number]-left deltoidgiven by: Todd Palomino LPN ADMINISTRATION OF INFLUENZA VIRUS On: 27-Dec-2009 Intent VACCINE ([id number])By: Edilia Vasquez LPN FLU VAC, SPLIT, >3 YEARS, INTRAMUSC On: 27-Dec-2009 Intent ([id number])By: Edilia Vasquez LPN Comments: Lot #[id number]/03Site-L armDose0.5mlgiven by: EKG ([id number])By: Denisa Macias DO On: 15-Nov-2009 Intent Denisa Macias DO Comments: nsr no acute changes MRI - Shoulder(s) - LeftBy: Colleen On: 11-May-2009 Intent Denisa GARCIA DO, Kathleen Bio Z ([id number])By: Denisa Macias DO On: 25-Oct-2008 Intent Denisa Macias DO Comments: NORMAL SVR AND CO EKG ([id number])By: Denisa Macias DO On: 25-Oct-2008 Intent Denisa Macias DO Comments: NSR NO ACUTE CHANGES Bio Z ([id number])By: Denisa Macias DO On: 04-Jun-2008 Intent Denisa Macias DO Comments: normal IMMUNIZ ADMNIN, 1 VAC, SNGL/COMBO On: 05-Jan-2008 Intent ([id number])By: Denisa Macias DO, DO, Kathleen FLU VAC, SPLIT, >3 YEARS, INTRAMUSC On: 05-Jan-2008 Intent ([id number])By: Denisa Macias DO, DO, Kathleen Bio Z ([id number])By: Denisa Macias DO On: 07-Nov-2007 Intent Denisa Macias DO Comments: normal svr and co Nuclear Stress Test/Stress On: 15-Sep-2007 Intent SPECT/TreadmillBy: Colleen GARCIA, Comments: [facility] Denisa Valladares DO Echo CompleteBy: Denisa Macias DO On: 07-Aug-2007 Intent Denisa Macias DO Cartoid DopplerBy: Colleen DO, On: 07-Aug-2007 Intent Denisa Valladares DO EKG ([id number])By: Denisa Macias DO On: 07-Aug-2007 Intent Denisa Macias DO Comments: nsr no acute ischemic changes EKG ([id number])By: Denisa Macias DO On: 29-Nov-2006 Intent Denisa [...] The patient does have durable power of erisa attorney and living will. The patient has [...] social history. Yes the patient did have ([facility] /30wisper 05/25) a mini mental status End: [...] The patient does have durable power of erisa attorney and living will. The patient has noticed nothing from the geriatic depression scale. Other providers contributing to the patient's care are population health coach (dr zayas) and other: ([facility], vision test up to date).Encounter Diagnosis: [...] in bathroom. The patient has completed the [facility] preventative measures: PSA testing (2011) and colonoscopy (2011). The patient does have durable power of erisa attorney and living will. The patient has noticed nothing from the geriatic depression scale . Other providers contributing to the patient's care are population health coach (Dr. Antonio) and surgeon (Dr. Negro -- [...] criselda toscano does have durable power of erisa attorney and living will. The patient has noticed nothing from the geriatic depression scale. Other providers contributing to the patient's care are volunteer services supervisor and other: (sketch maker, ENT). Encounter Diagnosis: Type II Diabetes,controlled (250.00), [...]
--- OUTSIDE RECORDS SUMMARY | 2018-06-16 21:56 | XMS RPT_ITS | Continuity of Care Document ---
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 Status: Active TUBULOVILLOUS ADENOMA, NOS Comments: [...] DO, Kathleen Start : 27-Dec-2016 Active Pen Aurora 16 31G X 8 MM Miscellaneous 1 [...] days Quantity: 30 {Tablet} Refills: 3 Ordered:08-Aug-2012 Anen Edge LPN Start : 07-Aug-2012 End : [...] (External Solution) uad (10 %) Inactive Comments:[employer] [place] Levitra 10 MG Oral Tablet 1 Tablet [...] Quantity: 20 {Tablet} Refills: 0 Ordered:13-Mar-2012 Anne Edeg LPN Start : 05-Jan-2011 End : 13-Mar-2012 [...] : 15-May-2017 End : 31-Jul-2017 Inactive ASPIRIN BUF(YMHZUD-LIDODI-QNC), 325MG (Oral Tablet) 1 (one) Tablet Daily [...] 2 Views Result: Comments: See Note; NOTES: [facility] Imaging Services [address] [place] [address] Hand 2 Views MR#: [id number] Acct: [id number] Name: YOHANNES CADET Rep #: [id number] : 0 1945 M 72 From: Morales Perla MD PCP: Denisa Macias DO Status: REG CLI Study: Hand 2 Views Date of Exam: 02/07/18 Exam# [id number] Ordering Dr: Denisa Macias DO STUDY: X-RAY [...] Service support , CC: Denisa Macias DO Loan Broker: Signed 05-Dec-2016 PT D/C Summary (1) Result: Comments: See Note; NOTES: [facility] Physical Therapy [facility] [address] [place] [address] Fax REHABILITATION SERVICES DISCHAR SUMMARY MR#: [id number] Acct: [id number] Name: YOHANNES CADET Rep #: [id number] : 1945 71 From: Aftab Mendez PT, ATC Referring Dr.: Nik Ch DPM Status: REG RCR Insurance: MEDIC ARE PART A B [employer] [place] HP - PT D/C Summary It has [...] please feel free to call me at [phone]. Thank you for the referral of this patient. Sincerely, Aftab Mendez, PT, <Electronically signed by Aftab Mendez PT, ATC> 12/05/16 1100 CC: Nik valdes DPM; Denisa Colleen DO [facility] Signed 09-Oct-2016 Inital Evaluation (1) - PT Result: Comments: See Note; NOTES: [facility] Physical Therapy [facility] [address] [place] [address] Fax REHABILITATION SERVICES INITIAL EVALUATION MR#: [id number] Acct: [id number] Name: YOHANNES CADET Rep #: [id number] : 1945 71 From: Aftab Mendez PT, ATC Referring Dr.: Nik Ch DPM Status: REG RCR Insurance: [employer] PART A B [employer] [place] Patient's Visit Information YOHANNES CADET is a [...] to be FAXED BACK to us at [phone] for Medicare purposes. Please let me know if there are questions or concerns regarding this plan of care. Physician Signature: Date: <Electronically signed by Aftab Mendez PT, ATC> 1001 CC: Nik Ch DPM; Deinsa Macias DO [facility] Signed For Medicare only, by signing this I certify the plan of care. Physicians Signature Date 21-May-2016 Brain/Head without Contrast Result: Comments: See Note; NOTES: [facility] Imaging Services [address] [place] [address] Verdana 4d Brain/Head without Contrast MR#: [id number] Acct: [id number] Name: YOHANNES CADET Rep #: [id number] : 1945 M 70 From: Sincere Solorio DO PCP: Denisa Macias DO Status: REG CLI Study: Brain/Head without Contrast Date of Exam: 05/21/16 Exam# [id number] Ordering Dr: Denisa Macias DO STUDY: CT [...] at 14:26 EST Tel , Service support [phone], CC: Denisa Macias DO Loan Broker: Signed 14-Nov-2015 Echocardiogram Complete Result: Comments: See Note; NOTES: [facility] Cardiovascular Services [address] [place] [address] Echo Complete 11/14/15 1303 MR#: [id number] Acct: [id number] Name: YOHANNES CADET Rep #: [id number] : 1945 70 From: Layo Raymond MD Attending Dr: Denisa Macias DO Status: REG CLI Ordering Dr: Denisa Macias DO Date: 11/14/15 Location: [facility] Sex: M C Admitted: Reason Fo r [...] Dictated: 10/24 05/10 1303 Date Transcribed: 11/14/151648 Loan Broker: Signed 14-Nov-2015 Chest WITH Contrast Result: Comments: See Note; NOTES: [facility] Imaging Services [address] [place] [address] Verdana 4d Chest WITH Contrast MR#: [id number] Acct: [id number] Name: YOHANNES CADET Rep #: [id number] : 1945 M 70 From: Asia Peres MD PCP: Denisa Macias DO Status: REG CLI Study: Chest WITH Contrast Date of Exam: 11/14/15 Exam# [id number] Ordering Dr: Denisa Macias TUDY: CT CHEST [...] MD at 2:25 EDT , Service support [phone], CC: Denisa Macias DO Loan Broker: Signed 24-Oct-2015 ELECTROCARDIOGRAM, COMPLETE (ECG) (84252) Comments: sinus gabby - no acute chg - same as old and on BB Result: [MEASUREMENTS ANALYSIS] Date of Test: 10/24/2015 09:30:26; Heart Rate: 55; NJ Interval: 184; QRS: 105; QT Interval: 404; Corrected QT Interval (QTc): 396; P Wave Randolph: 26; QRS Wave Randolph: 27; T Wave Randolph : 34; Blood Pressure: 138/70 [ECG DIAGNOSTIC STATEMENTS] Date of Test: 10/24/2015 09:30:26; Summary: Sinus Bradycardia WITHIN NORMAL LIMITS 29-Sep-2015 Knee 4 or More Views Result: Comments: See Note; NOTES: [facility] Imaging Services [address] [place] [address] Verdana 4d Knee 4 or More Views MR#: [id number] Acct: [id number] Name: YOHANNES CADET Rep #: [id number] : 1945 M 70 From: Tripp Miller MD PCP: Denisa Macias DO Status: REG CLI Study: Knee 4 or More Views Date of Exam: 09/29/15 Exam# [id number] Ordering Dr: Carrol Bautista DO STUDY: X-RAY [...] FACR at 9:18 EDT , Service support [phone], RAD/Knee 4 or More Views IMPRESSION: Moderate arthrosis of the patellofemoral joint Electronically Signed: Tripp Miller MD, FACR at 9:18 EDT , Service support [phone], CC: Carrol Kirkpatrick DO; Denisa Macias DO Loan Broker: Signed 27-Oct-2013 PT Discharge Summary Result: Comments: See Note; NOTES: [facility] Physical Therapy [address] [place] [address] Fax REHABILITATION SERVICES DISCHARGE SUMMARY MR#: [id number] Acct: [id number] Name: YOHANNES CADET Rep #: [id number] : 1945 68 From: Baljit Silva Referring [...] referral. Baljit Silva, PT T: GI JOB: [id number] <Electronically signed by Baljit pantoja > 10/27/13 0758 CC: Signed 27-Jul-2013 Inital Evaluation - PT Result: Comments: See Note; NOTES: [facility] [address] [place] [address]. 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 His goals are to find [...] We discussed with patient possibly using the dhxu-kql-jhtkidq orthotics before he considers fabricated orthotics due to cost. Uzair Silva PT T: GI JOB: [id number] <Electronically signed by Baljit Silva > 07/27/13 1802 CC: Signed For Medicare only, by signing this I c ertify the plan of care. Physicians Signature Date 09-Jul-2013 Hip min 2 Views Result: Comments: See Note; NOTES: [facility] Imaging Services [address] [place] [address] Radiology Report MR#: [id number] Acct: [id number] Name: YOHANNES CADET Rep #: [id number] : 1945 67 From: Jakob Hunt MD PCP: Denisa Macias DO Status: REG CLI Study: Hip min 2 Views Date of Exam: 07/09/13 Exam# [id number] Ordering Dr: eDnisa Macias DO STUDY : X-RAY - RIGHT [...] Jakob Hunt MD at 14:44 EDT Tel [phone], Service support [phone], Fax CC: Denisa Macias DO Loan Broker: Signed 09-Jul-2013 Pelvis 1 or 2 Views Result: Comments: See Note; NOTES: [facility] Imaging Services [address] [place] [address] Radiology Report MR#: [id number] Acct: [id number] Name: YOHANNES CADET Rep #: [id number] : 1945 M 67 From: Jakob Hunt MD PCP: Denisa Macias DO Status: REG CLI Study: Pelvis 1 or 2 Views Date of Exam: 07/09/13 Exam# [id number] Ordering Dr: Denisa Macias TUDY: X-RAY - [...] Jakob Hunt MD at 13:32 EDT Tel [phone], Service support [phone], CC: Denisa Macias DO Loan Broker: Signed 09-Jul-2013 EKG (47789) Comments: nsr no acute chg - ant leads are old Result: [MEASUREMENTS ANALYSIS] Date of Test: 07/09/2013 08:48:02; Heart Rate: 57; NJ Interval: 164; QRS: 106; QT Interval: 408; Corrected QT Interval (QTc): 403; P Wave Randolph: 25; QRS Wave Randolph: 60; T Wave Randolph : 62; Blood Pressure: 138/68 [ECG DIAGNOSTIC STATEMENTS] Date of Test: 07/09/2013 08:48:02; Summary: Sinus Bradycardia - Negative precordial T-waves. WITHIN NORMAL LIMITS Immunization Name Dates Details Influenza (3 years and up) on: 05-Jan-2008 Family History Unknown Family Member Name Dates Details Father Comments: [place]/CVA at 84 Status: Active Social History Name [...] Calculated 2.27 m2 :15 Comments: eye-Dr at [facility] 2013hearing -wnl Pulse 57 /min Comments: [...] 0.00 cm Results Date Description Value Details 50-Gwo-173685:59 HgA1C , Office (59076) HgA1C , Office 7.2 % (Abnormal) Range: 4.6 - 7.1 43-Vli-295500:59 Blood Glucose , Office (14850) Blood Glucose , Office 128 (Normal) 1-Gfm-593893:20 Microscopic Examination Comments: PATIENT WAS FASTINGPERFORMED BY: [employer] [address] [id number] BY: [employer] [address] [place] [address] [id number] Bacteria None seen (Normal) Mucus Threads Present (Normal) Epithelial Cells (non renal) None seen {/hpf} (Normal) Range: 0 - 10 RBC None seen {/hpf} (Normal) Range: 0 - 2 WBC 0-5 {/hpf} (Normal) Range: 0 - 5 4-Ybx-413108:20 CALCIFIDIOL (24790) VIT D Comments: PATIENT WAS FASTINGPERFORMED BY: [employer] [address] [id number] BY: [employer] Plwzjz1477 [facility] [id number] 25 Vitamin D, 25-Hydroxy 55.7 ng/mL (Normal) Range: 30.0-100.0 Comments: Vitamin D deficiency has been defined by the Barton ofMedicine and an Endocrine Society practice guideline as alevel of serum 25-OH vitamin D less than 20 ng/mL (1,2).The Endocrine Society went on to further define vitamin Dinsufficiency as a level between 21 and 29 ng/mL (2).1. IOM (Barton of Medicine). 2010. Dietary reference intakes for calcium and D. [place]: The National Academies Press.2. Charles MF, Raissa OCONNELL, Nirmala ALBERT, et al. Evaluation, treatment, and prevention of vitamin D deficiency: an Endocrine Society clinical practice guideline. JCEM. 2010; 96(7):1911-30. 3-Lfl-483501:20 TSH (68376) Comments: PATIENT WAS FASTINGPERFORMED BY: [employer] [id number] BY: Libra AllianceSouthern Ocean Medical CenterLahrbi2106 [facility] [id number] TSH 2.360 {uIU/mL} (Normal) Range: 0.450-4.500 5-Nvh-078890:20 URINALYSIS, W/ MICRO Comments: PATIENT WAS FASTINGPERFORMED BY: [employer] [facility] Worldwiderp [address] [id number] BY: [employer] [facility] Options WorldwideSouthern Ocean Medical CenterLadnij8097 [facility] [id number] (37989) Microscopic Examination See below: (Normal) Comments: Microscopic was indicated and was performed. Microscopic Examination MICRON (Normal) Comments: Microscopic follows if indicated. Nitrite, Urine Negative (Normal) Urobilinogen,Semi-Qn 0.2 mg/dL (Normal) Range: 0.2-1.0 Bilirubin Negative (Normal) Occult Blood Negative (Normal) Ketones Negative (Normal) Glucose Negative (Normal) Protein Negative (Normal) WBC Esterase Negative (Normal) Appearance Clear (Normal) Urine-Color Yellow (Normal) pH 5.0 (Normal) Range: 5.0-7.5 Specific [place] 1.019 (Normal) Range: 1.005-1.030 0-Ptl-525453:20 MICROALBUMIN: CREATININE Comments: PATIENT WAS FASTINGPERFORMED BY: PrestigosChristopher [place] [address] [facility] [id number] BY: Libra AllianceMary V[place] 2766070 [facility] [id number] RATIO (52236) AND (57039) Alb/Creat Ratio <2.4 {mg/g_creat} (Normal) Range: 0.0-30.0 Comments: Normal: 0.0 - 30.0 Albuminuria: 31.0 - 300.0 Clinical albuminuria: >300.0 Albumin, Urine <3.0 ug/mL (Normal) Creatinine, Urine 123.5 mg/dL (Normal) 9-Tzj-156907:20 METABOLIC PANEL, Comments: PATIENT WAS FASTINGPERFORMED BY: [employer] [id number] BY: Libra AllianceSouthern Ocean Medical CenterHisjit4725 [facility] [id number] COMPREHENSIVE (26558) ALT (SGPT) 22 [iU]/L (Normal) Range: 0-44 [...] 8-27 Glucose 156 mg/dL (Abnormal) Range: 65-99 4-Glb-333315:20 CBC W/AUTO DIFF WBC Comments: PATIENT WAS FASTINGPERFORMED BY: BN [facility] Ylxcmirbea1588 [facility] [id number] BY: CB [facility] Llcmcs3091 [facility] [id number] (14903) Immature Grans (Abs) 0.0 {x10E3/uL} (Normal) Range: [...] 4.14-5.80 WBC 5.8 {x10E3/uL} (Normal) Range: 3.4-10.8 0-Tqa-829754:20 LIPOPROTEIN, BLD, BY NMR Comments: PATIENT WAS FASTINGPERFORMED BY: BN [facility] Baijogvtul0702 [facility] [id number] BY: CB [facility] Wifzmq5900 [facility] [id number] (08474) LP-IR Score 66 (Abnormal) Comments: INSULIN RESISTANCE MARKER <--Insulin Sensitive Insulin Resistant--> Percentile in Reference PopulationInsulin Resistance ScoreLP-IR Score Low 25th 50th 75th High <27 27 45 63 >63LP-IR Score is inaccurate if patient is non-fasting. .The LP-IR score is a laboratory developed i [facility] that has beenassociated with [...] 1600 - 2000 Very High > 2000 45-Nqf-002012:40 HgA1C , Office (42616) HgA1C , Office 6.6 % (Normal) Range: 4.6 - 7.1 89-Tms-911898:40 Blood Glucose , Office (68255) Blood Glucose , Office 75 (Normal) 57-Zvz-763813:20 COLON BIOPSY (CHOOSE See Note (Normal) Comments: [facility] Tifkuyqvog8075 [facility]. [place], [place], [address] SITE) Comments: Patient: YOHANNES CADET : 1945 (72/M) Acct Num: [id number] Phys: FroydariusMg Unit Num: [id number] Loc: LABSPEC Specimen: [id number] Received: 09/20/171532 Spec Type: C OLON BX TISSUES TISSUES: Rectum, NOS GROSS DESCRIPTION Received in fixative is one container labeled with the patient's name and designated rectal polyp. The specimen predominantly consists of fecal material mixed with possible soares soft tissue, measuring in aggregate 2.5 x 0.6 x0.1 cm. The specimen is totally submitted in one cassette. BIJU:scott 09/23/17 TC: cannot code CPT: 46289 HEADER OPERATION: Colonoscopy with polypectomy PRE-OP DIAGNOSIS: Rectal bleeding TISSUE SUBMITTED: Rectal polyp MICROSCOPIC DESCRIPTION Slides are reviewed. MICROSCOPIC DIAGNOSIS Rectal polyp, polypectomy: Fragments of fecal material. Colonic mucosal tissue is not identified. BIJU:scott 09/24/18 Signed Magdy Purvis 09/24/17 <signature on file> 62-Yql-582290:08 Microscopic Examination Comments: PATIENT WAS FASTINGPERFORMED BY: [employer] Jszpzx0812 [address] RoadDublin [place] [id number] Bacteria None seen (Normal) Mucus Threads Present (Normal) Epithelial Cells (non renal) None seen {/hpf} (Normal) Range: 0 - 10 RBC None seen {/hpf} (Normal) Range: 0 - 2 WBC 0-5 {/hpf} (Normal) Range: 0 - 5 63-Dgt-768693:08 T4, FREE (THYROXINE) (72509) Comments: PATIENT WAS FASTINGPERFORMED BY: [employer] Nugcqu60[address] Formerly [facility] HospitalDublin [place] [id number] T4,Free(Direct) 1.27 ng/dL (Normal) Range: 0.82-1.77 :08 T3, FREE (TRIDOTHYRONINE) (37131) Comments: PATIENT WAS FASTINGPERFORMED BY: [employer] Reudks3795 Rosado RoadDublin [place] [id number] Triiodothyronine,Free,Serum 2.7 pg/mL (Normal) Range: 2.0-4.4 37-Vzh-258481:08 CALCIFIDIOL (38495) VIT D 25 Comments: PATIENT WAS FASTINGPERFORMED BY: [facility] Ljjafu1131 Rosado RoadDublin [place] [id number] Vitamin D, 25-Hydroxy 57.4 ng/mL (Normal) Range: 30.0-100.0 Comments: Vitamin D deficiency has been defined by the Barton ofMedicine and an Endocrine Society practice guideline as alevel of serum 25-OH vitamin D less than 20 ng/mL (1,2).The Endocrine Society went on to further define vitamin Dinsufficiency as a level between 21 and 29 ng/mL (2).1. IOM (Barton of Medicine). 2010. Dietary reference intakes for calcium and D. [place]: The National Academies Press.2. Charles MF, Raissa NC, Nirmaal ALBERT, et al. Evaluation, treatment, and prevention of vitamin D deficiency: an Endocrine Society clinical practice guideline. JCEM. 2010; 96(7):1911-30. 76-Cuc-380533:08 TSH (83854) Comments: PATIENT WAS FASTINGPERFORMED BY: [facility]6370 [facility] [id number] TSH 3.370 {uIU/mL} (Normal) Range: 0.450-4.500 95-Dnr-045408:08 URINALYSIS, W/ MICRO (95797) Comments: PATIENT WAS FASTINGPERFORMED BY: [facility]6370 [facility] [id number] Microscopic Examination See below: (Normal) Comments: Microscopic was indicated and was performed. Microscopic Examination MICRON (Normal) Comments: Microscopic follows if indicated. Nitrite, Urine Negative (Normal) Urobilinogen,Semi-Qn 0.2 mg/dL (Normal) Range: 0.2-1.0 Bilirubin Negative (Normal) Occult Blood Negative (Normal) Ketones Negative (Normal) Glucose Negative (Normal) Protein Negative (Normal) WBC Esterase Negative (Normal) Appearance Clear (Normal) Urine-Color Yellow (Normal) pH 5.0 (Normal) Range: 5.0-7.5 Specific [place] 1.026 (Normal) Range: 1.005-1.030 35-Xta-725904:08 MICROALBUMIN: CREATININE RATIO Comments: PATIENT WAS FASTINGPERFORMED BY: SaludFÁCILMclaren Northern [facility]6370 [facility] [id number] (31995) AND (96496) Alb/Creat Ratio 1.3 {mg/g_creat} (Normal) Range: 0.0-30.0 Albumin, Urine 3.1 ug/mL (Normal) Creatinine, Urine 237.2 mg/dL (Normal) 36-Wyj-811551:08 METABOLIC PANEL, COMPREHENSIVE Comments: PATIENT WAS FASTINGPERFORMED BY: SaludFÁCILMclaren Northern Michigan6370 [facility] [id number] (65846) ALT (SGPT) 17 [iU]/L (Normal) Range: 0-44 [...] 8-27 Glucose 142 mg/dL (Abnormal) Range: 65-99 40-Uno-211918:08 CBC W/AUTO DIFF WBC (76443) Comments: PATIENT WAS FASTINGPERFORMED BY: LabCoSouthern Ocean Medical CenterDzqmpw6290 [facility] [id number] Immature Grans (Abs) 0.0 {x10E3/uL} (Normal) Range: [...] {x10E3/uL} (Normal) Range: 3.4-10.8 :08 LIPID PANEL (84213) Comments: PATIENT WAS FASTINGPERFORMED BY: LabMclaren [facility] Michigan6370 [facility] [id number] LDL/HDL Ratio 1.2 {ratio} (Normal) Range: 0.0-3.6 [...] (Normal) Range: 100-199 :08 HgA1C , Office (26393) HgA1C , Office 6.9 % (Normal) Range: 4.6 - 7.1 :08 Blood Glucose , Office (40433) Blood Glucose , Office 123 (Normal) 1-Hsd-692978:23 Blood Glucose , Office (33439) Blood Glucose , Office 69 (Normal) :23 HgA1C , Office (68326) HgA1C , Office 7.1 % (Normal) Range: 4.6 - 7.1 5-Brd-319422:23 Blood Glucose , Office (56406) Blood Glucose , Office 84 (Normal) 72-Ojg-704918:06 Microscopic Examination Comments: PATIENT WAS FASTINGPERFORMED BY: Lib[facility] AllianceSouthern Ocean Medical CenterSpqocu7138 [facility] [id number] Bacteria Few (Normal) Mucus Threads Present (Normal) Epithelial Cells (non renal) None seen {/hpf} (Normal) Range: 0 - 10 RBC 0-2 {/hpf} (Normal) Range: 0 - 2 WBC 0-5 {/hpf} (Normal) Range: 0 - 5 9-Xgr-469128:25 Methymalonic Acid, Serum Comments: PATIENT NOT FASTINGPERFORMED BY: [employer] [id number] BY: [employer] [id number] (83785) Methylmalonic Acid, Serum 586 nmol/L (Abnormal) Range: 0-378 4-Eqe-460751:25 METABOLIC PANEL, Comments: PATIENT NOT FASTINGPERFORMED BY: [employer] [id number] BY: [employer] [id number] Inf ormation: [id number], 605555 COMPREHENSIVE (25290) ALT (SGPT) 11 [iU]/L (Normal) Range: 0-44 [...] Glucose, Serum 153 mg/dL (Abnormal) Range: 65-99 0-Yfl-294354:25 CBC (AUTO) (07694) Comments: PATIENT NOT FASTINGPERFORMED BY: [employer] Jawglp[address] [place] [address] [id number] BY: [employer] [id number] Platelets 213 {x10E3/uL} (Normal) Range: 150-379 RDW 14.0 % (Normal) Range: 12.3-15.4 MCHC 33.2 g/dL (Normal) Range: 31.5-35.7 MCH 27.5 pg (Normal) Range: 26.6-33.0 MCV 83 fL (Normal) Range: 79-97 Hematocrit 38.2 % (Normal) Range: 37.5-51.0 Hemoglobin 12.7 g/dL (Normal) Range: 12.6-17.7 RBC 4.62 {x10E6/uL} (Normal) Range: 4.14-5.80 WBC 4.6 {x10E3/uL} (Normal) Range: 3.4-10.8 8-Ygb-341599:25 TSH (54307) Comments: PATIENT NOT FASTINGPERFORMED BY: [employer] [id number] BY: [employer] [id number] TSH 3.040 {uIU/mL} (Normal) Range: 0.450-4.500 2-Ndi-999902:25 VITAMIN B-12 (CYANOCOBALAMIN) Comments: PATIENT NOT FASTINGPERFORMED BY: CB [facility] Aekuuu4358 Rosado RoadDublin [place] [id number] BY: [facility]Co[address] [id number] (49884) Vitamin B12 227 pg/mL (Normal) Range: 211-946 2-Cvy-771883:25 PSA (PROSTATE SPECIFIC Comments: PATIENT NOT FASTINGPERFORMED BY: CB [facility] Gmxvoy3063 [address] RoadDublin [place] [id number] BY: [facility]Co[address] [id number] ANTIGEN) (V76.44) Prostate Specific Ag, 2.0 ng/mL (Normal) Range: 0.0-4.0 Serum Comments: [employer] ECLIA methodology. .According to the [place] Urological [...] the presence or absence of malignant disease. 50-Dpd-527508:06 CALCIFIDIOL (97767) VIT D 25 Comments: PATIENT WAS FASTINGPERFORMED BY: [facility] Fxxujl[address] [facility] HospitalDublin [place] [id number] Vitamin D, 25-Hydroxy 42.4 ng/mL (Normal) Range: 30.0-100.0 Comments: Vitamin D deficiency has been defined by the Barton ofMedicine and an Endocrine Society practice guideline as alevel of serum 25-OH vitamin D less than 20 ng/mL (1,2).The Endocrine Society went on to further define vitamin Dinsufficiency as a level between 21 and 29 ng/mL (2).1. IOM (Barton of Medicine). 2010. Dietary reference intakes for calcium and D. [place]: The National Academies Press.2. Charles MF, Raissa OCONNELL, Nirmala ALBERT, et al. Evaluation, treatment, and prevention of vitamin D deficiency: an Endocrine Society clinical practice guideline. JCEM. 2010; 96(7):1911-30. :06 TSH (59351) Comments: PATIENT WAS FASTINGPERFORMED BY: [facility]6370 [facility] [id number] TSH 3.460 {uIU/mL} (Normal) Range: 0.450-4.500 12-Zej-291816:06 URINALYSIS, W/ MICRO (43361) Comments: PATIENT WAS FASTINGPERFORMED BY: [facility]6370 [facility] [id number] Microscopic Examination See below: (Normal) Comments: Microscopic was indicated and was performed. Microscopic Examination MICRON (Normal) Comments: Microscopic follows if indicated. Nitrite, Urine Negative (Normal) Urobilinogen,Semi-Qn 0.2 mg/dL (Normal) Range: 0.2-1.0 Bilirubin Negative (Normal) Occult Blood Negative (Normal) Ketones Negative (Normal) Glucose Negative (Normal) Protein Negative (Normal) WBC Esterase Negative (Normal) Appearance Clear (Normal) Urine-Color Yellow (Normal) pH 5.0 (Normal) Range: 5.0-7.5 Specific [place] 1.020 (Normal) Range: 1.005-1.030 19-Xaf-794274:06 MICROALBUMIN: CREATININE RATIO Comments: PATIENT WAS FASTINGPERFORMED BY: [facility]udFÁCILMclaren Northern Michigan6370 [facility] [id number] (09633) AND (42506) Microalb/Creat Ratio <2.4 {mg/g_creat} (Normal) Range: 0.0-30.0 Microalbumin, Urine <3.0 ug/mL (Normal) Creatinine, Urine 127.3 mg/dL (Normal) :06 METABOLIC PANEL, COMPREHENSIVE Comments: PATIENT WAS FASTINGPERFORMED BY: SaludFÁCILMclaren Northern Michigan6370 [facility] [id number] (01162) ALT (SGPT) 15 [iU]/L (Normal) Range: 0-44 [...] mg/dL (Abnormal) Range: 65-99 :06 LIPID PANEL (81664) Comments: PATIENT WAS FASTINGPERFORMED BY: [facility]6370 [facility] [id number] LDL/HDL Ratio 1.5 {ratio_units} (Normal) Range: 0.0-3.6 Comments: LDL/HDL Ratio Men Women 1/2 Avg.Risk 1.0 1.5 Av g.Risk 3.6 3.2 2X Avg.Risk 6.2 5.0 3X Avg.Risk 8.0 6.1 LDL Cholesterol Calc 63 mg/dL (Normal) Range: 0-99 VLDL Cholesterol Ezequiel 25 mg/dL (Normal) Range: 5-40 HDL Cholesterol 42 mg/dL (Normal) Triglycerides 126 mg/dL (Normal) Range: 0-149 Cholesterol, Total 130 mg/dL (Normal) Range: 100-199 22-Inx-841300:06 CBC W/AUTO DIFF WBC (50169) Comments: PATIENT WAS FASTINGPERFORMED BY: LabCoSouthern Ocean Medical CenterBeeggb2478 [facility] [id number] Immature Grans (Abs) 0.0 {x10E3/uL} (Normal) Range: [...] (Normal) Range: 3.4-10.8 :32 HgA1C , Office (27526) HgA1C , Office 7.3 % (Abnormal) Range: 4.6 - 7.1 :32 Blood Glucose , Office (48875) Blood Glucose , Office 185 (Normal) :33 ALDOSTERONE (15798) Comments: PATIENT NOT FASTINGPERFORMED BY: [address] [id number] Aldosterone 3.8 ng/dL (Normal) Range: 0.0-30.0 Comments: This test was developed and its performance characteristicsdetermined by [employer]. It has not been cleared or approvedby the Food and Drug Administration. :33 RENIN (44441) Comments: PATIENT NOT FASTINGPERFORMED BY: SaludFÁCIL[address] [id number] Renin Activity, Plasma 0.402 {ng/mL/hr} Range: 0.167-5.380 (Normal) Comments: This test was developed and its performance characteristicsdetermined by [employer]. It has not been cleared or approvedby the Food and Drug Administration. :31 METANEPHRINES - URINE (48577) Comments: PATIENT NOT FASTINGPERFORMED BY: SaludFÁCIL[address] [id number] Metanephrine, U,24hr 238 {ug/24_hr} (Normal) Range: 45-290 Comments: (Hypertensive) >17 years 11 months: 35 - 460 Metanephrine, Ur 119 ug/L (Normal) Normetanephr.,U,24h 370 {ug/24_hr} (Normal) Range: 82-500 Comments: (Hypertensive) >17 years 11 months: 110 - 1050 Normetanephrine, Ur 185 ug/L (Normal) :31 CATECHOLAMINES TOTAL, URINE Comments: PATIENT NOT FASTINGPERFORMED BY: [address] [id number] Information: START 09/25/2016@447AM (73821) Dopamine, Ur, 24hr 280 {ug/24_hr} (Normal) Range: 0-510 Dopamine, Urine 140 ug/L (Normal) Norepinephrine,U,24h 42 {ug/24_hr} (Normal) Range: 0-135 Norepinephrine, Ur 21 ug/L (Normal) Epinephrine, U, 24hr 4 {ug/24_hr} (Normal) Range: 0-20 Epinephrine, Urine 2 ug/L (Normal) :31 URINE VMA (02579) Comments: PATIENT NOT FASTINGPERFORMED BY: PARUL [place] [address] [facility] [id number] VMA, Urine, 24hr 3.4 {mg/24_hr} (Normal) Range: 0.0-7.5 Comments: This test was developed and its performance characteristicsdetermined by [facility]. It has not been cleared or approvedby the Food and Drug Administration. VMA, Urine 1.7 mg/L (Normal) 51-Wfh-697542:05 Microscopic Examination Comments: PATIENT WAS FASTINGPERFORMED BY: GUICHO [facility] [place]3[address] [facility] [id number] Bacteria None seen (Normal) Mucus Threads Present (Normal) Epithelial Cells (non renal) None seen {/hpf} (Normal) Range: 0 - 10 RBC 0-2 {/hpf} (Normal) Range: 0 - 2 WBC 0-5 {/hpf} (Normal) Range: 0 - 5 99-Rhe-409997:05 LIPID PANEL (96530) Comments: PATIENT WAS FASTINGPERFORMED BY: GUICHO [facility] Vlrnmm8126 [facility] [id number] LDL/HDL Ratio 1.3 {ratio_units} (Normal) Range: 0.0-3.6 Comments: LDL/HDL Ratio Men Women 1/2 Avg.Risk 1.0 1.5 Av g.Risk 3.6 3.2 2X Avg.Risk 6.2 5.0 3X Avg.Risk 8.0 6.1 LDL Cholesterol Calc 61 mg/dL (Normal) Range: 0-99 VLDL Cholesterol Ezequiel 19 mg/dL (Normal) Range: 5-40 HDL Cholesterol 47 mg/dL (Normal) Triglycerides 94 mg/dL (Normal) Range: 0-149 Cholesterol, Total 127 mg/dL (Normal) Range: 100-199 55-Gdc-249824:05 URINALYSIS, W/ MICRO (47366) Comments: PATIENT WAS FASTINGPERFORMED BY: [facility]6370 [facility] [id number] Microscopic Examination See below: (Normal) Comments: Microscopic was indicated and was performed. Microscopic Examination MICRON (Normal) Comments: Microscopic follows if indicated. Nitrite, Urine Negative (Normal) Urobilinogen,Semi-Qn 0.2 mg/dL (Normal) Range: 0.2-1.0 Bilirubin Negative (Normal) Occult Blood Negative (Normal) Ketones Negative (Normal) Glucose Negative (Normal) Protein Negative (Normal) WBC Esterase Negative (Normal) Appearance Clear (Normal) Urine-Color Yellow (Normal) pH 5.5 (Normal) Range: 5.0-7.5 Specific [place] 1.024 (Normal) Range: 1.005-1.030 68-Llm-173179:05 MICROALBUMIN: CREATININE RATIO Comments: PATIENT WAS FASTINGPERFORMED BY: appAttach [facility] [id number] (13333) AND (85597) Microalb/Creat Ratio <1.7 {mg/g_creat} (Normal) Range: 0.0-30.0 Microalbumin, Urine <3.0 ug/mL (Normal) Creatinine, Urine 171.8 mg/dL (Normal) 10-Wxc-847481:05 METABOLIC PANEL, COMPREHENSIVE Comments: PATIENT WAS FASTINGPERFORMED BY: [facility] [id number] (92370) ALT (SGPT) 15 [iU]/L (Normal) Range: 0-44 [...] Glucose, Serum 117 mg/dL (Abnormal) Range: 65-99 09-Jzo-012610:05 CBC W/AUTO DIFF WBC (43402) Comments: PATIENT WAS FASTINGPERFORMED BY: LabCoSouthern Ocean Medical CenterBwcbvn5498 [facility] [id number] Immature Grans (Abs) 0.0 {x10E3/uL} (Normal) Range: [...] 4.9 {x10E3/uL} (Normal) Range: 3.4-10.8 :05 TSH (99381) Comments: PATIENT WAS FASTINGPERFORMED BY: LabCo Jjgklc1939 [address]ado RoadDublin [place] [id number] TSH 3.460 {uIU/mL} (Normal) Range: 0.450-4.500 :05 T4, FREE (THYROXINE) (69219) Comments: PATIENT WAS FASTINGPERFORMED BY: Lab[facility] Cilmeg4607 [address] RoadDublin [place] [id number] T4,Free(Direct) 1.34 ng/dL (Normal) Range: 0.82-1.77 :05 T3, FREE (TRIDOTHYRONINE) (90566) Comments: PATIENT WAS FASTINGPERFORMED BY: [facility] Earifh0629 [address] RoadDublin [place] [id number] Triiodothyronine,Free,Serum 3.0 pg/mL (Normal) Range: 2.0-4.4 :05 CALCIFIDIOL (35798) VIT D 25 Comments: PATIENT WAS FASTINGPERFORMED BY: [facility] Wfktyd8230 [address]ado RoadDublin [place] [id number] Vitamin D, 25-Hydroxy 46.6 ng/mL (Normal) Range: 30.0-100.0 Comments: Vitamin D deficiency has been defined by the Barton ofMedicine and an Endocrine Society practice guideline as alevel of serum 25-OH vitamin D less than 20 ng/mL (1,2).The Endocrine Society went on to further define vitamin Dinsufficiency as a level between 21 and 29 ng/mL (2).1. IOM (Barton of Medicine). 2010. Dietary reference intakes for calcium and D. [place]: The National Academies Press.2. Charles MF, Raissa NC, Nirmala ALBERT, et al. Evaluation, treatment, and prevention of vitamin D deficiency: an Endocrine Society clinical practice guideline. JCEM. 2010; 96(7):1911-30. :42 HgA1C , Office (85794) HgA1C , Office 6.6 % (Normal) Range: 4.6 - 7.1 :42 Blood Glucose , Office (68124) Blood Glucose , Office 117 (Normal) :59 HgA1C , Office (23660) HgA1C , Office 6.8 % (Normal) Range: 4.6 - 7.1 :59 Blood Glucose , Office (70256) Blood Glucose , Office 237 (Normal) :52 Rapid Flu (84007 x 2) Influenza A Ag neg (Normal) :19 HgA1C , Office (43447) HgA1C , Office 6.6 % (Normal) Range: 4.6 - 7.1 :19 Blood Glucose , Office (09912) Blood Glucose , Office 171 (Normal) :43 Microscopic Examination Comments: PATIENT WAS FASTINGPERFORMED BY: [facility] [id number] Bacteria Few (Normal) Mucus Threads Present (Normal) Epithelial Cells (non renal) 0-10 {/hpf} (Normal) Range: 0 - 10 RBC 0-2 {/hpf} (Normal) Range: 0 - 2 WBC 0-5 {/hpf} (Normal) Range: 0 - 5 :53 Serum Creatinine AND GFR Comments: [facility] Wroohbqapp[address] [place], [place], [id number] EST GFR - AA 83 mL/min (Normal) Comments: GFR Calc EST GFR 69 mL/min (Normal) Comments: Non- GFR Calc CREAT,SERUM 1.12 mg/dL (Normal) Range: 0.70-1.30 Comments: The validity of the calculated GFR AND GFRAA in patients over70 years has not been determined. Clinical correlation isessential. :43 CALCIFIDIOL (89686) VIT D 25 Comments: PATIENT WAS FASTINGPERFORMED BY: [employer] [address] ChattyFormerly [facility] [id number] Vitamin D, 25-Hydroxy 55.4 ng/mL (Normal) Range: 30.0-100.0 Comments: Vitamin D deficiency has been defined by the Barton ofMedicine and an Endocrine Society practice guideline as alevel of serum 25-OH vitamin D less than 20 ng/mL (1,2).The Endocrine Society went on to further define vitamin Dinsufficiency as a level between 21 and 29 ng/mL (2).1. IOM (Barton of Medicine). 2010. Dietary reference intakes for calcium and D. [place]: The National Academies Press.2. Charles MF, Raissa OCONNELL, Nirmala ALBERT, et al. Evaluation, treatment, and prevention of vitamin D deficiency: an Endocrine Society clinical practice guideline. JCEM. 2010; 96(7):1911-30. :43 URINALYSIS, W/ MICRO (26111) Comments: PATIENT WAS FASTINGPERFORMED BY: [employer] [place] [id number] Microscopic Examination See below: (Normal) Comments: Microscopic was indicated and was performed. Microscopic Examination MICRON (Normal) Comments: Microscopic follows if indicated. Nitrite, Urine Negative (Normal) Urobilinogen,Semi-Qn 0.2 mg/dL (Normal) Range: 0.2-1.0 Bilirubin Negative (Normal) Occult Blood Negative (Normal) Ketones Negative (Normal) Glucose Negative (Normal) Protein Negative (Normal) WBC Esterase Negative (Normal) Appearance Clear (Normal) Urine-Color Yellow (Normal) pH 5.5 (Normal) Range: 5.0-7.5 Specific [place] 1.022 (Normal) Range: 1.005-1.030 :43 MICROALBUMIN: CREATININE RATIO Comments: PATIENT WAS FASTINGPERFORMED BY: [employer] SARL[address] [place] [id number] (75263) AND (79785) Microalb/Creat Ratio <2.4 {mg/g_creat} (Normal) Range: 0.0-30.0 Microalbumin, Urine <3.0 ug/mL (Normal) Creatinine, Urine 122.5 mg/dL (Normal) :43 METABOLIC PANEL, COMPREHENSIVE Comments: PATIENT WAS FASTINGPERFORMED BY: Lib[facility] AllianceUNM Cancer CenterCcwnbt1214 [facility] [id number] (34977) ALT (SGPT) 12 [iU]/L (Normal) Range: 0-44 [...] Glucose, Serum 120 mg/dL (Abnormal) Range: 65-99 7-Qiq-874441:43 TSH (16243) Comments: PATIENT WAS FASTINGPERFORMED BY: Lib[facility] AllianceUNM Cancer CenterOduzwu6209 [facility] [id number] TSH 4.010 {uIU/mL} (Normal) Range: 0.450-4.500 6-Clc-703256:43 LIPID PANEL (00889) Comments: PATIENT WAS FASTINGPERFORMED BY: Lib[facility] AllianceUNM Cancer CenterFqjvvx7850 [facility] [id number] LDL/HDL Ratio 1.2 {ratio_units} (Normal) Range: 0.0-3.6 [...] Cholesterol, Total 117 mg/dL (Normal) Range: 100-199 5-Dxa-541427:43 CBC W/AUTO DIFF WBC (96608) Comments: PATIENT WAS FASTINGPERFORMED BY: [facility] Mmdsnt7222 [facility] [id number] Immature Grans (Abs) 0.0 {x10E3/uL} (Normal) Range: [...] (Normal) Range: 3.4-10.8 :27 HgA1C , Office (56527) HgA1C , Office 6.6 % (Normal) Range: 4.6 - 7.1 :27 Blood Glucose , Office (89835) Blood Glucose , Office 168 (Normal) :08 Microscopic Examination Comments: PATIENT WAS FASTINGPERFORMED BY: GUICHO [employer] [facility] [id number] Bacteria None seen (Normal) Mucus Threads Present (Normal) Epithelial Cells (non renal) None seen {/hpf} (Normal) Range: 0 - 10 RBC None seen {/hpf} (Normal) Range: 0 - 2 WBC 0-5 {/hpf} (Normal) Range: 0 - 5 :08 CALCIFIDIOL (30877) VIT D 25 Comments: PATIENT WAS FASTINGPERFORMED BY: GUICHO [employer] Mfzlvy6747 [facility] TherapeuticsECU [facility] [id number] Vitamin D, 25-Hydroxy 62.4 ng/mL (Normal) Range: 30.0-100.0 Comments: Vitamin D deficiency has been defined by the Barton ofUniversity Hospitals Portage Medical Centercine and an Endocrine Society practice guideline as alevel of serum 25-OH vitamin D less than 20 ng/mL (1,2).The Endocrine Society went on to further define vitamin Dinsufficiency as a level between 21 and 29 ng/mL (2).1. IOM (Barton of Medicine). 2010. Dietary reference intakes for calcium and D. [place]: The National Academies Press.2. Charles MF, Raissa OCONNELL, Nirmala ALBERT, et al. Evaluation, treatment, and prevention of vitamin D deficiency: an Endocrine Society clinical practice guideline. JCEM. 2010; 96(7):1911-30. :08 URINALYSIS, W/ MICRO (55441) Comments: PATIENT WAS FASTINGPERFORMED BY: [facility]6370 [facility] [id number] Microscopic Examination See below: (Normal) Comments: Microscopic was indicated and was performed. Microscopic Examination MICRON (Normal) Comments: Microscopic follows if indicated. Nitrite, Urine Negative (Normal) Urobilinogen,Semi-Qn 0.2 mg/dL (Normal) Range: 0.2-1.0 Bilirubin Negative (Normal) Occult Blood Negative (Normal) Ketones Negative (Normal) Glucose Negative (Normal) Protein Negative (Normal) WBC Esterase Negative (Normal) Appearance Clear (Normal) Urine-Color Yellow (Normal) pH 6.0 (Normal) Range: 5.0-7.5 Specific [place] 1.022 (Normal) Range: 1.005-1.030 :08 MICROALBUMIN: CREATININE RATIO Comments: PATIENT WAS FASTINGPERFORMED BY: SaludFÁCILMclaren Northern Michigan6370 [facility] [id number] (01469) AND (47452) Microalb/Creat Ratio <1.8 {mg/g_creat} (Normal) Range: 0.0-30.0 Microalbumin, Urine <3.0 ug/mL (Normal) Creatinine, Urine 164.4 mg/dL (Normal) :08 METABOLIC PANEL, COMPREHENSIVE Comments: PATIENT WAS FASTINGPERFORMED BY: [facility]6370 [facility] [id number] (32036) ALT (SGPT) 16 [iU]/L (Normal) Range: 0-44 [...] Glucose, Serum 108 mg/dL (Abnormal) Range: 65-99 32-Kdt-734205:08 LIPID PANEL (75654) Comments: PATIENT WAS FASTINGPERFORMED BY: appAttach [facility] [id number] LDL/HDL Ratio 1.4 {ratio_units} (Normal) Range: 0.0-3.6 [...] DIFF WBC Comments: PATIENT WAS FASTINGPERFORMED BY: [employer] [facility] [id number] Information: [id number] (05366) Immature Grans (Abs) 0.0 {x10E3/uL} (Normal) Range: [...] 5.5 {x10E3/uL} (Normal) Range: 3.4-10.8 :08 TSH (00996) Comments: PATIENT WAS FASTINGPERFORMED BY: [employer] [facility] [id number] TSH 4.000 {uIU/mL} (Normal) Range: 0.450-4.500 :03 HgA1C , Office (47427) HgA1C , Office 6.2 % (Normal) Range: 4.6 - 7.1 :03 Blood Glucose , Office (75256) Blood Glucose , Office 102 (Normal) 6-Hlr-327106:49 Throat Culture (16839) Comments: PATIENT NOT FASTINGPERFORMED BY: AndigilogSouthern Ocean Medical CenterXozwnx7763 [facility] [id number] Information: SRC:THRT [id number] Result 1 RRF (Normal) Comments: Routine respiratory alfredo Upper Respiratory Culture Final report (Normal) :02 Rapid Strep Test, Office (53417) Rapid Strep Test, Office Negative (Normal) :48 Influenza A&B Viral Comments: PATIENT NOT FASTINGPERFORMED BY: [employer] Qliawy5546 [address] [facility] [id number] Information: SRC:NOS [id number] Culture (84956) Viral Culture,Rapid,Influenza FLUABN (Normal) Comments: Negative:No Influenza A or B detected. 0-Ayu-474955:26 Rapid Flu (09481 x 2) Influenza A Ag negative (Normal) :30 HgA1C , Office (56802) HgA1C , Office 7.3 % (Abnormal) Range: 4.6 - 7.1 :30 Blood Glucose , Office (48437) Blood Glucose , Office 191 (Normal) :52 Microscopic Examination Comments: PATIENT WAS FASTINGPERFORMED BY: [employer] Zmlnsk9060 [facility] [id number] Bacteria None seen (Normal) Mucus Threads Present (Normal) Epithelial Cells (non renal) 0-10 {/hpf} (Normal) Range: 0 - 10 RBC 0-2 {/hpf} (Normal) Range: 0 - 2 WBC 0-5 {/hpf} (Normal) Range: 0 - 5 :52 CALCIFIDIOL (20046) VIT D 25 Comments: PATIENT WAS FASTINGPERFORMED BY: LabPark[facility] Dfytvv6111 [facility] [id number] Vitamin D, 25-Hydroxy 44.9 ng/mL (Normal) Range: 30.0-100.0 Comments: Vitamin D deficiency has been defined by the Barton ofMedicine and an Endocrine Society practice guideline as alevel of serum 25-OH vitamin D less than 20 ng/mL (1,2).The Endocrine Society went on to further define vitamin Dinsufficiency as a level between 21 and 29 ng/mL (2).1. IOM (Barton of Medicine). 2010. Dietary reference intakes for calcium and D. [place]: The National Academies Press.2. Charles MF, Raissa NC, Nirmala ALBERT, et al. Evaluation, treatment, and prevention of vitamin D deficiency: an Endocrine Society clinical practice guideline. JCEM. 2010; 96(7):1911-30. :52 LIPID PANEL (37830) Comments: PATIENT WAS FASTINGPERFORMED BY: Libra AllianceSouthern Ocean Medical CenterIpfvue5166 [facility] [id number] LDL/HDL Ratio 2.4 {ratio_units} (Normal) Range: 0.0-3.6 [...] 196 mg/dL (Normal) Range: 100-199 :52 TSH (72152) Comments: PATIENT WAS FASTINGPERFORMED BY: Libra AllianceSouthern Ocean Medical CenterFbktyi0231 [facility] [id number] TSH 4.480 {uIU/mL} (Normal) Range: 0.450-4.500 :52 URINALYSIS, W/ MICRO (61777) Comments: PATIENT WAS FASTINGPERFORMED BY: SaludFÁCILMclaren Northern Michigan6370 [facility] [id number] Microscopic Examination See below: (Normal) Comments: Microscopic was indicated and was performed. Microscopic Examination MICRON (Normal) Comments: Microscopic follows if indicated. Nitrite, Urine Negative (Normal) Urobilinogen,Semi-Qn 0.2 mg/dL (Normal) Range: 0.2-1.0 Bilirubin Negative (Normal) Occult Blood Negative (Normal) Ketones Negative (Normal) Glucose Negative (Normal) Protein Negative (Normal) WBC Esterase Negative (Normal) Appearance Clear (Normal) Urine-Color Yellow (Normal) pH 6.0 (Normal) Range: 5.0-7.5 Specific [place] 1.024 (Normal) Range: 1.005-1.030 :52 MICROALBUMIN: CREATININE RATIO Comments: PATIENT WAS FASTINGPERFORMED BY: AndigilogSouthern Ocean Medical CenterXqzckx7431 [facility] [id number] (25565) AND (52042) Microalb/Creat Ratio <2.2 {mg/g_creat} (Normal) Range: 0.0-30.0 Microalbumin, Urine <3.0 ug/mL (Normal) Range: 0.0-17.0 Creatinine, Urine 135.9 mg/dL (Normal) Range: 22.0-328.0 :52 METABOLIC PANEL, COMPREHENSIVE Comments: PATIENT WAS FASTINGPERFORMED BY: [employer] Aepxjh5248 [facility] [id number]; will review at 02/21 appt (70632) ALT (SGPT) 13 [iU]/L (Normal) Range: 0-44 [...] Glucose, Serum 130 mg/dL (Abnormal) Range: 65-99 05-Osb-82512:52 CBC W/AUTO DIFF WBC Comments: PATIENT WAS FASTINGPERFORMED BY: LabParkland [facility] Center Tcvssk0310 [facility] [id number] Information: [id number] (06549) Immature Grans (Abs) 0.0 {x10E3/uL} (Normal) Range: [...] (Normal) Range: 3.4-10.8 :56 HgA1C , Office (75559) HgA1C , Office 5.9 % (Normal) Range: 4.6 - 7.1 :56 Blood Glucose , Office (26624) Blood Glucose , Office 103 (Normal) :35 HgA1C , Office (15329) HgA1C , Office 6.0 % (Normal) Range: 4.6 - 7.1 :34 Blood Glucose , Office (00919) Blood Glucose , Office 135 (Normal) :45 Potassium Comments: Test performed at:[facility] Qnjzyrmyat2437 [place] [address] K 4.3 mmol/L (Normal) Range: 3.5-5.1 :54 Comp. Metabolic Panel (14) Comments: PATIENT WAS FASTINGPERFORMED BY: [facility]Co Yxlljr7381 [facility] [id number] Information: [id number] ALT (SGPT) 11 [iU]/L (Normal) Range: 0-44 [...] Glucose, Serum 117 mg/dL (Abnormal) Range: 65-99 97-Nye-27033:54 Lipid Panel With LDL/HDL Comments: PATIENT WAS FASTINGPERFORMED BY: [employer] SARL70 [facility] [id number] Ratio LDL/HDL Ratio 2.1 {ratio_units} Range: 0.0-3.6 [...] 2.860 {uIU/mL} Comments: PATIENT WAS FASTINGPERFORMED BY: [employer]6370 [facility] [id number] 9:54 (Normal) Range: 0.450-4.500 02-Aug-2014 Vitamin D, 25-Hydroxy 61.9 ng/mL (Normal) Comments: PATIENT WAS FASTINGPERFORMED BY: [employer] Dxnudl8568 [facility] [id number] 9:54 Range: 30.0-100.0 Comments: Vitamin D deficiency has been defined by the Barton ofMedicine and an Endocrine Society practice guideline as alevel of serum 25-OH vitamin D less than 20 ng/mL (1,2).The Endocrine Society went on to further define vitamin Dinsufficiency as a level between 21 and 29 ng/mL (2).1. IOM (Barton of Medicine). 2010. Dietary reference intakes for calcium and D. [place]: The National Academies Press.2. Raissa Harrison, Nirmala ALBERT, et al. Evaluation, treatment, and prevention of vitamin D deficiency: an Endocrine Society clinical practice guideline. JCEM. 2010; 96(7):1911-30. :13 HgA1C , Office (15534) HgA1C , Office 6.8 % (Normal) Range: 4.6 - 7.1 :13 Blood Glucose , Office (37910) Blood Glucose , Office 218 (Normal) :24 Microscopic Examination Comments: PATIENT WAS FASTINGPERFORMED BY: [employer]6370 [facility] [id number] Bacteria None seen (Normal) Mucus Threads Present (Normal) Epithelial Cells (non renal) None seen {/hpf} (Normal) Range: 0 - 10 RBC 0-2 {/hpf} (Normal) Range: 0 - 2 WBC 0-5 {/hpf} (Normal) Range: 0 - 5 :24 Vitamin D Hydroxy (67182) Comments: PATIENT WAS FASTINGPERFORMED BY: [employer]ando6370 [facility] TherapeuticsEC[facility] [id number] Vitamin D, 25-Hydroxy 35.7 ng/mL (Normal) Range: 30.0-100.0 Comments: Vitamin D deficiency has been defined by the Barton ofMedicine and an Endocrine Society practice guideline as alevel of serum 25-OH vitamin D less than 20 ng/mL (1,2).The Endocrine Society went on to further define vitamin Dinsufficiency as a level between 21 and 29 ng/mL (2).1. IOM (Barton of Medicine). 2010. Dietary reference intakes for calcium and D. [place]: The National Academies Press.2. Raissa Harrison, Nimrala ALBERT, et al. Evaluation, treatment, and prevention of vitamin D deficiency: an Endocrine Society clinical practice guideline. JCEM. 2010; 96(7):1911-30. :24 URINALYSIS, W/ MICRO (99154) Comments: PATIENT WAS FASTINGPERFORMED BY: [employer] Phioei3225 [facility] [id number] Microscopic Examination See below: (Normal) Comments: Microscopic was indicated and was performed. Microscopic Examination MICRON (Normal) Comments: Microscopic follows if indicated. Nitrite, Urine Negative (Normal) Urobilinogen,Semi-Qn 0.2 mg/dL (Normal) Range: 0.0-1.9 Bilirubin Negative (Normal) Occult Blood Negative (Normal) Ketones Negative (Normal) Glucose Negative (Normal) Protein Negative (Normal) WBC Esterase Negative (Normal) Appearance Clear (Normal) Urine-Color Yellow (Normal) pH 6.0 (Normal) Range: 5.0-7.5 Specific [place] 1.025 (Normal) Range: 1.005-1.030 57-Hya-024823:24 TSH (99281) Comments: PATIENT WAS FASTINGPERFORMED BY: [employer] Uihkdz8240 [facility] [id number] TSH 2.740 {uIU/mL} (Normal) Range: 0.450-4.500 51-Agz-000253:24 MICROALBUMIN: CREATININE RATIO Comments: PATIENT WAS FASTINGPERFORMED BY: AndigilogSouthern Ocean Medical CenterLhahjy5145 [facility] [id number] (77522) AND (12750) Microalb/Creat Ratio <1.5 {mg/g_creat} (Normal) Range: 0.0-30.0 Microalbumin, Urine <3.0 ug/mL (Normal) Range: 0.0-17.0 Creatinine, Urine 205.5 mg/dL (Normal) Range: 22.0-328.0 06-Mfd-467000:24 METABOLIC PANEL, COMPREHENSIVE Comments: PATIENT WAS FASTINGPERFORMED BY: [employer] Nicdkp4877 [facility] [id number] (01963) ALT (SGPT) 13 [iU]/L (Normal) Range: 0-44 [...] Glucose, Serum 138 mg/dL (Abnormal) Range: 65-99 35-Ylk-325202:24 LIPID PANEL (85599) Comments: PATIENT WAS FASTINGPERFORMED BY: LabCoSouthern Ocean Medical CenterGdlvdp4916 [facility] [id number] LDL/HDL Ratio 3.2 {ratio_units} (Normal) Range: 0.0-3.6 [...] Cholesterol, Total 221 mg/dL (Abnormal) Range: 100-199 48-Npc-124459:24 CBC W/AUTO DIFF WBC Comments: PATIENT WAS FASTINGPERFORMED BY: [facility] Medical CenterCoMary Ville 2766070 [facility] [id number] Information: [id number] (25453) Immature Grans (Abs) 0.0 {x10E3/uL} (Normal) Range: [...] 4.14-5.80 WBC 5.0 {x10E3/uL} (Normal) Range: 3.4-10.8 81-Kuy-201673:00 Fecal Occult Blood , Office (00586) Fecal Occult Blood , Office (Inhouse) negative (Normal) 58-Cvi-976382:57 PSA (PROSTATE SPECIFIC Comments: PATIENT NOT FASTINGPERFORMED BY: [place] 9292870 [facility] [id number] Information: [id number] ANTIGEN) (V76.44) Prostate Specific Ag, 1.5 ng/mL [...] of malignant disease. :17 HgA1C , Office (36465) HgA1C , Office 7.0 % (Normal) Range: 4.6 - 7.1 :17 Blood Glucose , Office (37727) Blood Glucose , Office 118 (Normal) :50 HgA1C , Office (07713) HgA1C , Office 7.6 % (Abnormal) Range: 4.6 - 7.1 :50 Blood Glucose , Office (82551) Blood Glucose , Office 142 (Normal) 2-Jeo-862015:44 Microscopic Examination Comments: PATIENT WAS FASTINGPERFORMED BY: FootbalisticEC[facility] [id number] Bacteria None seen (Normal) Mucus Threads Present (Normal) Epithelial Cells (non renal) None seen {/hpf} (Normal) Range: 0 - 10 RBC 0-2 {/hpf} (Normal) Range: 0 - 2 WBC 0-5 {/hpf} (Normal) Range: 0 - 5 :32 URINALYSIS, W/ MICRO (37274) Comments: PATIENT WAS FASTINGPERFORMED BY: VeriTweetNorton [facility] [id number] Microscopic Examination See below: (Normal) Comments: Microscopic was indicated and was performed. Microscopic Examination MICRON (Normal) Comments: Microscopic follows if indicated. Nitrite, Urine Negative (Normal) Urobilinogen,Semi-Qn 0.2 mg/dL (Normal) Range: 0.0-1.9 Bilirubin Negative (Normal) Ketones Negative (Normal) Occult Blood Negative (Normal) Glucose Trace (Abnormal) Protein Negative (Normal) WBC Esterase Negative (Normal) Appearance Clear (Normal) Urine-Color Yellow (Normal) pH 6.0 (Normal) Range: 5.0-7.5 Specific [place] 1.024 (Normal) Range: 1.005-1.030 :32 MICROALBUMIN: CREATININE RATIO Comments: PATIENT WAS FASTINGPERFORMED BY: [employer] Assbfd2488 [facility] [id number] (13024) AND (80799) Microalb/Creat Ratio 1.3 {mg/g_creat} (Normal) Range: 0.0-30.0 Creatinine, Urine 188.3 mg/dL (Normal) Range: 22.0-328.0 Microalbumin, Urine 2.4 ug/mL (Normal) Range: 0.0-17.0 :32 TSH (17422) Comments: PATIENT WAS FASTINGPERFORMED BY: [employer] Hskijr3270 [facility] [id number] TSH 3.250 {uIU/mL} (Normal) Range: 0.450-4.500 6-Qds-899842:32 METABOLIC PANEL, COMPREHENSIVE Comments: PATIENT WAS FASTINGPERFORMED BY: [employer] Tifen.com [facility] [id number]; will review at 10/08 appt (71072) ALT (SGPT) 22 [iU]/L (Normal) Range: 0-44 [...] Glucose, Serum 152 mg/dL (Abnormal) Range: 65-99 6-Yjh-371287:32 LIPID PANEL (06387) Comments: PATIENT WAS FASTINGPERFORMED BY: appAttach [facility] [id number] LDL/HDL Ratio 2.0 {ratio_units} (Normal) Range: 0.0-3.6 [...] MANUAL DIFF Comments: PATIENT WAS FASTINGPERFORMED BY: [employer] [facility] [id number] Information: [id number] (40633) Immature Grans (Abs) 0.0 {x10E3/uL} (Normal) Range: [...] (Normal) Range: 3.4-10.8 :37 HgA1C , Office (01302) HgA1C , Office 7.1 % (Normal) Range: 4.6 - 7.1 :37 Blood Glucose , Office (55478) Blood Glucose , Office 142 (Normal) 73-Ztv-565573:39 Microscopic Examination Comments: PATIENT WAS FASTINGPERFORMED BY: [employer] SARL70 [place] [id number] Bacteria None seen (Normal) Mucus Threads Present (Normal) Epithelial Cells (non renal) None seen {/hpf} (Normal) Range: 0 - 10 RBC None seen {/hpf} (Normal) Range: 0 - 3 WBC 0-5 {/hpf} (Normal) Range: 0 - 5 :13 Vitamin D Hydroxy (00569) Comments: PATIENT WAS FASTINGPERFORMED BY: [employer] [place] [id number] Vitamin D, 25-Hydroxy 35.9 ng/mL (Normal) Range: 30.0-100.0 Comments: Vitamin D deficiency has been defined by the [place] ofMedicine and an Endocrine Society practice guideline as alevel of serum 25-OH vitamin D less than 20 ng/mL (1,2).The Endocrine Society went on to further define vitamin Dinsufficiency as a level between 21 and 29 ng/mL (2).1. IOM ([place] of Medicine). 2010. Dietary reference intakes for calcium and D. [place]: The National Academies Press.2. Charles MF, Raissa OCONNELL, Nirmala ALBERT, et al. Evaluation, treatment, and prevention of vitamin D deficiency: an Endocrine Society clinical practice guideline. JCEM. 2010; 96(7):1911-30. :13 TSH (07807) Comments: PATIENT WAS FASTINGPERFORMED BY: Apparcando6370 [place] [id number] TSH 4.190 {uIU/mL} (Normal) Range: 0.450-4.500 :13 URINALYSIS, W/ MICRO (47757) Comments: PATIENT WAS FASTINGPERFORMED BY: Andigilogrp Fitswe4080 [facility] TherapeuticsECU [facility] [id number] Microscopic Examination MICRON (Normal) Comments: Microscopic follows if indicated. Microscopic Examination See below: (Normal) Nitrite, Urine Negative (Normal) Urobilinogen,Semi-Qn 0.2 mg/dL (Normal) Range: 0.0-1.9 Bilirubin Negative (Normal) Occult Blood Negative (Normal) Ketones Negative (Normal) Glucose Negative (Normal) Protein Negative (Normal) Appearance Clear (Normal) WBC Esterase Negative (Normal) Urine-Color Yellow (Normal) pH 7.0 (Normal) Range: 5.0-7.5 Specific [place] 1.023 (Normal) Range: 1.005-1.030 :13 MICROALBUMIN: CREATININE RATIO Comments: PATIENT WAS FASTINGPERFORMED BY: Andigilogrp Penhai8389 [facility] TherapeuticsECU Health Beau[facility] Hospital [id number] (86431) AND (76777) Microalb/Creat Ratio 1.4 {mg/g_creat} (Normal) Range: 0.0-30.0 Creatinine, Urine 177.1 mg/dL (Normal) Range: 22.0-328.0 Microalbumin, Urine 2.5 ug/mL (Normal) Range: 0.0-17.0 :13 METABOLIC PANEL, COMPREHENSIVE Comments: PATIENT WAS FASTINGPERFORMED BY: [employer] SARL70 [facility] TherapeuticsECU [facility] [id number] (84161) ALT (SGPT) 17 [iU]/L (Normal) Range: 0-44 [...] mg/dL (Abnormal) Range: 65-99 :13 LIPID PANEL (29034) Comments: PATIENT WAS FASTINGPERFORMED BY: Apparcando6370 [facility] TherapeuticsEC[facility] [id number] LDL/HDL Ratio 1.8 {ratio_units} (Normal) Range: 0.0-3.6 LDL Cholesterol Calc 86 mg/dL (Normal) Range: 0-99 VLDL Cholesterol Ezequiel 18 mg/dL (Normal) Range: 5-40 HDL Cholesterol 48 mg/dL (Normal) Comments: According to ATP-III Guidelines, HDL-C >59 mg/dL is considered anegative risk factor for CHD. Triglycerides 92 mg/dL (Normal) Range: 0-149 Cholesterol, Total 152 mg/dL (Normal) Range: 100-199 10-Nll-15588:13 CBC WITH MANUAL DIFF Comments: PATIENT WAS FASTINGPERFORMED BY: LabCoSouthern Ocean Medical CenterXwloae3593 [facility] [id number] Information: [id number] (96660) Immature Grans (Abs) 0.0 {x10E3/uL} (Normal) Range: [...] (Normal) Range: 3.4-10.8 :31 HgA1C , Office (11976) HgA1C , Office 6.7 % (Normal) Range: 4.6 - 7.1 :31 Blood Glucose , Office (93279) Blood Glucose , Office 141 (Normal) :55 HgA1C , Office (96849) HgA1C , Office 6.4 % (Normal) Range: 4.6 - 7.1 :55 Blood Glucose , Office (41059) Blood Glucose , Office 116 (Normal) :33 Microscopic Examination Comments: PATIENT WAS FASTINGPERFORMED BY: Apparcando6370 [facility] [id number] Bacteria None seen (Normal) Mucus Threads Present (Normal) Epithelial Cells (non renal) None seen {/hpf} (Normal) Range: 0 - 10 RBC 0-3 {/hpf} (Normal) Range: 0 - 3 WBC 0-5 {/hpf} (Normal) Range: 0 - 5 :33 PSA (PROSTATE SPECIFIC Comments: PATIENT WAS FASTINGPERFORMED BY: Apparcando6370 [facility] [id number] ANTIGEN) (V76.44) Prostate Specific Ag, 1.5 ng/mL (Normal) Range: 0.0-4.0 Serum Comments: [employer] ECLIA methodology. .According to the [place] Urological [...] or absence of malignant disease. :33 TSH (95103) Comments: PATIENT WAS FASTINGPERFORMED BY: SaludFÁCILMclaren Northern Michigan6370 [facility] [id number] TSH 2.770 {uIU/mL} (Normal) Range: 0.450-4.500 :33 URINALYSIS, W/ MICRO (27913) Comments: PATIENT WAS FASTINGPERFORMED BY: [place] 9292870 [facility] [id number] Microscopic Examination See below: (Normal) Microscopic Examination MICRON (Normal) Comments: Microscopic follows if indicated. Nitrite, Urine Negative (Normal) Urobilinogen,Semi-Qn 0.2 mg/dL (Normal) Range: 0.0-1.9 Bilirubin Negative (Normal) Occult Blood Negative (Normal) Ketones Negative (Normal) Glucose Negative (Normal) Protein Negative (Normal) WBC Esterase Negative (Normal) Appearance Clear (Normal) Urine-Color Yellow (Normal) pH 6.0 (Normal) Range: 5.0-7.5 Specific [place] 1.026 (Normal) Range: 1.005-1.030 69-Ebc-684401:33 MICROALBUMIN: CREATININE RATIO Comments: PATIENT WAS FASTINGPERFORMED BY: SaludFÁCILMclaren Northern Michigan6370 [facility] [id number] (46116) AND (16666) Microalb/Creat Ratio 1.8 {mg/g_creat} (Normal) Range: 0.0-30.0 Microalbumin, Urine 3.6 ug/mL (Normal) Range: 0.0-17.0 Creatinine, Urine 203.4 mg/dL (Normal) Range: 22.0-328.0 05-Xen-287770:33 METABOLIC PANEL, COMPREHENSIVE Comments: PATIENT WAS FASTINGPERFORMED BY: [facility]6370 [facility] [id number] (51582) ALT (SGPT) 16 [iU]/L (Normal) Range: 0-44 [...] Glucose, Serum 114 mg/dL (Abnormal) Range: 65-99 36-Cdy-229167:33 LIPID PANEL (00678) Comments: PATIENT WAS FASTINGPERFORMED BY: [employer] Rosado [facility] [id number] LDL/HDL Ratio 1.3 {ratio_units} (Normal) Range: 0.0-3.6 LDL Cholesterol Calc 63 mg/dL (Normal) Range: 0-99 VLDL Cholesterol Ezequiel 25 mg/dL (Normal) Range: 5-40 HDL Cholesterol 47 mg/dL (Normal) Comments: According to ATP-III Guidelines, HDL-C >59 mg/dL is considered anegative risk factor for CHD. Triglycerides 123 mg/dL (Normal) Range: 0-149 Cholesterol, Total 135 mg/dL (Normal) Range: 100-199 64-Att-095553:33 CBC WITH MANUAL DIFF Comments: PATIENT WAS FASTINGPERFORMED BY: AndigilogUNM Cancer CenterTaxrgq3541 [facility] [id number] Information: [id number] (97961) Immature Grans (Abs) 0.0 {x10E3/uL} (Normal) Range: [...] (Normal) Range: 4.0-10.5 :22 HgA1C , Office (47978) HgA1C , Office 6.3 % (Normal) Range: 4.6 - 7.1 :22 Blood Glucose , Office (76184) Blood Glucose , Office 109 (Normal) :49 ALDOS 9.3 ng/dL (Normal) Range: 0.0-30.0 :49 CATU tDOP24 674 Range: 0-510 {ug/24_hr} Comments: TESTING PERFORMED AT [facility]. ORIGINAL REPORT ONFILE IN LAB CONTAINS [...] metanephrines and plasma catecolamines. TESTING PERFORMED AT [facility]. ORIGINAL REPORT ONFILE IN LAB [...] >150 0.39 - 1.31Performed at: - [facility] [address] [id number] Director: Bruno Williamson MD, Phone: [phone] - (Normal) M joceline y - 2 0 1 3 9 : 4 9 86-Usb-30462:49 VMA tVMA24 4.6 {mg/24_hr} (Normal) Range: 0.0-7.5 [...] 126 mg/dLsuggests DIABETES MELLITUS per A.D.A. criteria. 92-Gpw-410919:15 CBCD ANC 3.6 3/uL (Normal) Range: 2.0-7.7 [...] 4.6-6.2 WBC 6.4 {k/mm3} (Normal) Range: 4.4-11.0 43-Zks-07911:00 BRAIN W/WO CONTRAST Radiology Report See Note [...] Stauffer M.D.August 08, 2012 at 10:05:25 PM [id number] Signed AH/AH If you are the referring physician and would like to consult with theradiologist who provided this interpretation, please contact Chad Mast at [phone]. If this radiologist is unavailable,you will be directed to another radiologist to assist. If you are a patient with a question regarding this report, pleasecontactyour referring physician directly . Professional Interpretation Provided By: SPHARES, Phone , These documents contain legally protected [...] on 08/08/122207 Sign by: MIKHAIL STAUFFER MD 90-Elt-153243:32 BRAIN/HEAD WITHOUT CONTRAST Radiology Report See Note [...] Fontenot M.D.August 04, 2012 at 5:16:58 PM [id number] Signed DN/DN If you are the referring physician and would like to consult with theradiologist who pro vided this interpretation, please contact Heather Ng M.D. at [phone]. If this radiologist is unavailable, youwillbe directed to another radiologist to assist. If you are a patient with a quest ion regarding this report, pleasecontactyour referring physician directly. Professional Interpretation Provided By: SPHARES, Phone , These documents contain legally pro [...] 08/04/121718 Sign by: ___ HEATHER FONTENOT MD 33-Exo-877597:36 CBCD ANC 4.1 3/uL (Normal) Range: 2.0-7.7 [...] METABOLIC PANEL, Comments: PATIENT NOT FASTINGPERFORMED BY: LabCoSouthern Ocean Medical CenterQgexhp6152 [facility] [id number] Information: [id number] COMPREHENSIVE (62666) ALT (SGPT) 13 [iU]/L (Normal) Range: 0-44 [...] (Normal) Range: 65-99 :01 HgA1C , Office (18856) HgA1C , Office 6.2 % (Normal) Range: 4.6 - 7.1 :01 Blood Glucose , Office (98259) Blood Glucose , Office 89 (Normal) :48 Microscopic Examination Comments: PATIENT WAS FASTINGPERFORMED BY: LabCoSouthern Ocean Medical CenterHlcylv1673 [facility] [id number] Bacteria Few (Normal) Mucus Threads Present (Normal) Epithelial Cells (non renal) None seen {/hpf} (Normal) Range: 0 - 10 RBC 0-3 {/hpf} (Normal) Range: 0 - 3 WBC 0-5 {/hpf} (Normal) Range: 0 - 5 :48 TSH (26038) Comments: PATIENT WAS FASTINGPERFORMED BY: Libra AllianceUNM Cancer CenterYhvgpn4082 [facility] [id number] TSH 5.340 {uIU/mL} (Abnormal) Range: 0.450-4.500 :48 URINALYSIS, W/ MICRO (15213) Comments: PATIENT WAS FASTINGPERFORMED BY: Libra AllianceUNM Cancer CenterDosbff1560 [facility] [id number] Microscopic Examination See below: (Normal) Microscopic Examination MICRON (Normal) Comments: Microscopic follows if indicated. Bilirubin Negative (Normal) Nitrite, Urine Negative (Normal) Urobilinogen,Semi-Qn 0.2 mg/dL (Normal) Range: 0.0-1.9 Occult Blood Negative (Normal) Ketones Negative (Normal) Glucose Negative (Normal) Protein Negative (Normal) WBC Esterase Negative (Normal) Appearance Clear (Normal) pH 5.5 (Normal) Range: 5.0-7.5 Urine-Color Yellow (Normal) Specific [place] 1.028 (Normal) Range: 1.005-1.030 :48 MICROALBUMIN: CREATININE RATIO Comments: PATIENT WAS FASTINGPERFORMED BY: Libra AllianceUNM Cancer CenterVxmjeo7670 [facility] [id number] (97734) AND (41603) Microalb/Creat Ratio 1.6 {mg/g_creat} (Normal) Range: 0.0-30.0 Creatinine, Urine 195.7 mg/dL (Normal) Range: 22.0-328.0 Microalbumin, Urine 3.2 ug/mL (Normal) Range: 0.0-17.0 :48 METABOLIC PANEL, COMPREHENSIVE Comments: PATIENT WAS FASTINGPERFORMED BY: Libra AllianceSouthern Ocean Medical CenterZngvci5237 [facility] [id number] (94493) ALT (SGPT) 16 [iU]/L (Normal) Range: 0-44 [...] mg/dL (Normal) Range: 65-99 :48 LIPID PANEL (02493) Comments: PATIENT WAS FASTINGPERFORMED BY: [employer] SARL70 [facility] TherapeuticsEC[facility] [id number] LDL Cholesterol Calc 97 mg/dL (Normal) Range: [...] MANUAL DIFF Comments: PATIENT WAS FASTINGPERFORMED BY: Apparcando6370 [employer] JapanFormerly [facility] [id number] Information: [id number] (71514) Immature Grans (Abs) 0.0 {x10E3/uL} (Normal) Range: [...] (Normal) Range: 4.0-10.5 :46 HgA1C , Office (98223) HgA1C , Office 6.1 % (Normal) Range: 4.6 - 7.1 :46 Blood Glucose , Office (62292) Blood Glucose , Office 91 (Normal) 6-Rto-153794:25 HEPATOBILLIARY IMG W/PHARM INT Radiology Report See [...] Cholecystokinin (0.02 ug/kg) was administered intravenously over v49-nacrwa period. The post CCK gallbladder ejection fraction ttnrziohueeq33 minutes following Cholecystokinin administration was noted to [...] Richmond M.D.December 24, 2011 at 8:34:10 PM [id number] S igned RB/RB If you are the referring physician and would like to consult with theradiologist who provided this interpretation, please contact Chad Aragon at [phone]. If this radiologist is un available, you will bedirected to another radiologist to assist. If you are a patient with a question regarding this report, pleasecontactyour referring physician directly. Professional Interpretation P rovided By: SPHARES, Phone , These documents contain legally protected [...] size of the right kidney. The right mbxgfvdowrgcte38.6 cm. Normal rolando al cortex. The right cortex measures 1.8 cm. Thereisno demonstrated renal mass or cyst. There is no right hydronephrosis. IMPRESSION:Sludge in the gallbladder lumen, with a thickened gallbladder wall .Correlation with nuclear medicine hepatobiliary scan is recommended. Signed:Jakob Hunt M.D.December 18, 2011 at 11:00:05 AM [id number] Signed GP/GP If you are the referring physician and would like to consult with theradiologist who provided this interpretation, please contact Chad Lao at [phone]. If this radiologist is unavailable, youwill be directed to another radiologist to assist. If you are a patient with a question regarding this report, pleasecontactyour referring physician directly. Professional Interpretation Provided By: SPHARES, Phone , These documents contain legally protected [...] Jakob Hunt MD :41 HgA1C , Office (65240) HgA1C , Office 6.2 % (Normal) Range: 4.6 - 7.1 :41 Blood Glucose , Office (11001) Blood Glucose , Office 115 (Normal) :37 HgA1C , Office (31200) HgA1C , Office 6.4 % (Normal) Range: 4.6 - 7.1 :37 Blood Glucose , Office (60283) Blood Glucose , Office 119 (Normal) :44 PSA (PROSTATE SPECIFIC Comments: PATIENT WAS FASTINGPERFORMED BY: CB LabMclaren Northern Michigan6370 [facility] [id number] ANTIGEN) (V76.44) Prostate Specific Ag, 1.7 ng/mL (Normal) Range: 0.0-4.0 Serum Comments: [employer] methodology. .According to the [place] U[employer] Association, [...] or absence of malignant disease. :44 TSH (48325) Comments: PATIENT WAS FASTINGPERFORMED BY: Apparcando6370 [facility] [id number] TSH 2.660 {uIU/mL} (Normal) Range: 0.450-4.500 :44 URINALYSIS, W/ MICRO (47135) Comments: PATIENT WAS FASTINGPERFORMED BY: Apparcando6370 [facility] [id number] Microscopic Examination See below: (Normal) Microscopic Examination MICRON (Normal) Comments: Microscopic follows if indicated. Nitrite, Urine Negative (Normal) Urobilinogen,Semi-Qn 0.2 mg/dL (Normal) Range: 0.0-1.9 Bilirubin Negative (Normal) Occult Blood Negative (Normal) Ketones Negative (Normal) Glucose Negative (Normal) Protein Negative (Normal) WBC Esterase Negative (Normal) Appearance Clear (Normal) Urine-Color Yellow (Normal) pH 6.0 (Normal) Range: 5.0-7.5 Specific [place] 1.024 (Normal) Range: 1.005-1.030 :44 MICROALBUMIN: CREATININE RATIO Comments: PATIENT WAS FASTINGPERFORMED BY: Andigilog Ctvhod6305 [facility] [id number] (02212) AND (43039) Microalb/Creat Ratio 1.1 {mg/g_creat} (Normal) Range: 0.0-30.0 Microalbumin, Urine 3.2 ug/mL (Normal) Range: 0.0-17.0 Creatinine, Urine 294.1 mg/dL (Normal) Range: 22.0-328.0 :44 Microscopic Examination Comments: PATIENT WAS FASTINGPERFORMED BY: Libra AllianceSouthern Ocean Medical CenterLdyiya7863 [facility] [id number] Bacteria None seen (Normal) Mucus Threads Present (Normal) Epithelial Cells (non renal) None seen {/hpf} (Normal) Range: 0 - 10 RBC 0-3 {/hpf} (Normal) Range: 0 - 3 WBC 0-5 {/hpf} (Normal) Range: 0 - 5 :44 METABOLIC PANEL, COMPREHENSIVE Comments: PATIENT WAS FASTINGPERFORMED BY: Apparcando6370 [facility] [id number] (71576) ALT (SGPT) 21 [iU]/L (Normal) Range: 0-55 [...] mg/dL (Abnormal) Range: 65-99 :44 LIPID PANEL (42168) Comments: PATIENT WAS FASTINGPERFORMED BY: [employer] Tztsdv3714 [facility] [id number] LDL/HDL Ratio 1.2 {ratio_units} (Normal) Range: 0.0-3.6 [...] MANUAL DIFF Comments: PATIENT WAS FASTINGPERFORMED BY: Voxbright Technologieslin6370 [facility] [id number] Information: [id number] (78355) Immature Grans (Abs) 0.0 {x10E3/uL} (Normal) Range: [...] (Normal) Range: 4.0-10.5 :25 HgA1C , Office (51325) HgA1C , Office 6.2 % (Normal) Range: 4.6 - 7.1 :25 Blood Glucose , Office (45891) Blood Glucose , Office 84 (Normal) :56 Blood Glucose , Office (90765) Blood Glucose , Office 96 (Normal) 6-Uzw-730422:29 SPINE, LUMBAR (ROUTINE) Radiology Report See Note [...] HEATHER FONTENOT MD :08 HgA1C , Office (31274) HgA1C , Office 6.3 % (Normal) Range: 4.6 - 7.1 :08 Blood Glucose , Office (24974) Blood Glucose , Office 108 (Normal) :50 URINALYSIS, W/ MICRO (52859) Comments: PATIENT WAS FASTINGPERFORMED BY: [employer]isticHar[employer] [place] [id number] Microscopic Examination See below: (Normal) Microscopic Examination MICRON (Normal) Comments: Microscopic follows if indicated. Nitrite, Urine Negative (Normal) Urobilinogen,Semi-Qn 0.2 mg/dL (Normal) Range: 0.0-1.9 Bilirubin Negative (Normal) Occult Blood Negative (Normal) Ketones Negative (Normal) Glucose Negative (Normal) Protein Negative (Normal) WBC Esterase Negative (Normal) Appearance Clear (Normal) Urine-Color Yellow (Normal) pH 5.5 (Normal) Range: 5.0-7.5 Specific [place] 1.022 (Normal) Range: 1.005-1.030 :50 MICROALBUMIN: CREATININE RATIO Comments: PATIENT WAS FASTINGPERFORMED BY: FootbalisticECU [facility] [id number] (76295) AND (50474) Microalb/Creat Ratio <.6 {mg/g_creat} (Normal) Range: 0.0-30.0 Creatinine, Urine 163.1 mg/dL (Normal) Range: 22.0-328.0 Microalbumin, Urine <1.0 ug/mL (Normal) Range: 0.0-17.0 Comments: Verified by repeat analysis :50 METABOLIC PANEL, COMPREHENSIVE Comments: PATIENT WAS FASTINGPERFORMED BY: [employer] SARL70 [employer] [facility] [id number] (81974) ALT (SGPT) 16 [iU]/L (Normal) Range: 0-55 [...] mg/dL (Abnormal) Range: 65-99 :50 LIPID PANEL (43355) Comments: PATIENT WAS FASTINGPERFORMED BY: [employer] [facility] [id number] LDL Cholesterol Calc 68 mg/dL (Normal) Range: [...] DIFF Comments: PATIENT WAS FASTINGPERFORMED BY: [facility] Ztlbwu2336 [employer] [facility] [id number] Information: [id number] (48664) Immature Grans (Abs) 0.0 {x10E3/uL} (Normal) Range: [...] Microscopic Examination Comments: PATIENT WAS FASTINGPERFORMED BY: [employer] Nectjy2418 [facility] [id number] Bacteria Few (Normal) Mucus Threads Present (Normal) Epithelial Cells (non renal) None seen {/hpf} (Normal) Range: 0 - 10 RBC None seen {/hpf} (Normal) Range: 0 - 3 WBC 0-5 {/hpf} (Normal) Range: 0 - 5 :58 HgA1C , Office (06088) HgA1C , Office 6.0 % (Normal) Range: 4.6 - 7.1 :58 Blood Glucose , Office (67626) Blood Glucose , Office 93 (Normal) :13 PSA (PROSTATE SPECIFIC Comments: PATIENT NOT FASTINGPERFORMED BY: [employer] Mglpvc9853 [facility] [id number] Information: [id number] ANTIGEN) (V76.44) Prostate Specific Ag, 1.5 ng/mL [...] of malignant disease. :16 HgA1C , Office (31159) HgA1C , Office 6.2 % (Normal) Range: 4.6 - 7.1 :16 Blood Glucose , Office (22456) Blood Glucose , Office 196 (Normal) 2-Xjl-929326:15 TSH (83760) Comments: PATIENT WAS FASTINGPERFORMED BY: SaludFÁCILMclaren Northern Michigan6370 [facility] [id number] TSH 3.200 {uIU/mL} (Normal) Range: 0.450-4.500 1-Wmq-680851:15 MICROALBUMIN: CREATININE RATIO Comments: PATIENT WAS FASTINGPERFORMED BY: SaludFÁCILMclaren Northern Michigan6370 [facility] [id number] (38530) AND (06288) Creatinine, Urine 168.7 mg/dL (Normal) Range: 22.0-328.0 Microalb/Creat Ratio 1.5 {mg/g_creat} (Normal) Range: 0.0-30.0 Microalbumin, Urine 2.5 ug/mL (Normal) Range: 0.0-17.0 9-Vgi-189652:15 METABOLIC PANEL, COMPREHENSIVE Comments: PATIENT WAS FASTINGPERFORMED BY: Libra AllianceSouthern Ocean Medical CenterTgsokm3924 [facility] [id number] (35641) A/G Ratio 1.8 (Normal) Range: 1.1-2.5 Alkaline [...] Glucose, Serum 108 mg/dL (Abnormal) Range: 65-99 7-Qmt-126412:15 LIPID PANEL (00993) Comments: PATIENT WAS FASTINGPERFORMED BY: Apparcando6370 [facility] [id number] LDL/HDL Ratio 1.8 {ratio_units} (Normal) Range: 0.0-3.6 HDL Cholesterol 49 mg/dL (Normal) Comments: According to ATP-III Guidelines, HDL-C >59 mg/dL is considered anegative risk factor for CHD. LDL Cholesterol Calc 86 mg/dL (Normal) Range: 0-99 VLDL Cholesterol Ezequiel 25 mg/dL (Normal) Range: 5-40 Cholesterol, Total 160 mg/dL (Normal) Range: 100-199 Triglycerides 123 mg/dL (Normal) Range: 0-149 1-Qwb-733553:15 CBC WITH MANUAL DIFF Comments: PATIENT WAS FASTINGPERFORMED BY: [employer] SARL70 [facility] [id number] Information: [id number] (61471) Immature Grans (Abs) 0.0 {x10E3/uL} (Normal) Range: [...] (Normal) Range: 4.0-10.5 :53 HgA1C , Office (41527) HgA1C , Office 6.3 % (Normal) Range: 4.6 - 7.1 :53 Blood Glucose , Office (75935) Blood Glucose , Office 123 (Normal) :51 HgA1C , Office (79920) HgA1C , Office 6.2 % (Normal) Range: 4.6 - 7.1 :51 Blood Glucose , Office (07540) Blood Glucose , Office 93 (Normal) 14-Eff-924884:01 Microscopic Examination Comments: PATIENT WAS FASTINGPERFORMED BY: LabCoSouthern Ocean Medical CenterMvbbsl5636 [facility] [id number] Bacteria Few (Normal) Mucus Threads Present (Normal) Epithelial Cells (non renal) None seen {/hpf} (Normal) Range: 0 - 10 RBC 0-3 {/hpf} (Normal) Range: 0 - 3 WBC 0-5 {/hpf} (Normal) Range: 0 - 5 10-Btw-049104: PSA (PROSTATE SPECIFIC Comments: PATIENT WAS FASTINGPERFORMED BY: appAttach [facility] [id number] ANTIGEN) (V76.44) Prostate Specific Ag, 1.4 ng/mL (Normal) Range: 0.0-4.0 Serum Comments: ClickScanShareIA methodology..According to the [place] [employer], Serum [...] or absence of malignant disease. : TSH (92168) Comments: PATIENT WAS FASTINGPERFORMED BY: [employer] SARL70 [facility] [id number] TSH 3.670 {uIU/mL} (Normal) Range: 0.450-4.500 31-Vjh-939293: URINALYSIS, W/ MICRO (42038) Comments: PATIENT WAS FASTINGPERFORMED BY: Apparcando6370 [facility] [id number] Microscopic Examination See below: (Normal) Bilirubin Negative (Normal) Microscopic Examination MICRON (Normal) Comments: Microscopic follows if indicated. Nitrite, Urine Negative (Normal) Urobilinogen,Semi-Qn 0.2 mg/dL (Normal) Range: 0.0-1.9 Glucose Negative (Normal) Ketones Negative (Normal) Occult Blood Negative (Normal) Protein Negative (Normal) WBC Esterase Negative (Normal) Appearance Clear (Normal) pH 6.0 (Normal) Range: 5.0-7.5 Specific [place] 1.024 (Normal) Range: 1.005-1.030 Urine-Color Yellow (Normal) 12-Grg-245885: MICROALBUMIN: CREATININE RATIO Comments: PATIENT WAS FASTINGPERFORMED BY: [employer] SARL70 [facility] [id number] (20368) AND (83333) Microalb/Creat Ratio <.4 {mg/g_creat} (Normal) Range: 0.0-30.0 Microalbumin, Urine <1.0 ug/mL (Normal) Range: 0.0-17.0 Creatinine, Urine 226.9 mg/dL (Normal) Range: 22.0-328.0 65-Pkq-786669:01 METABOLIC PANEL, COMPREHENSIVE Comments: PATIENT WAS FASTINGPERFORMED BY: LabMcl[facility]6370 [facility] [id number] (89513) A/G Ratio 2.0 (Normal) Range: 1.1-2.5 Alkaline [...] Glucose, Serum 93 mg/dL (Normal) Range: 65-99 30-Vxc-935165:01 LIPID PANEL (86911) Comments: PATIENT WAS FASTINGPERFORMED BY: Libra AllianceSouthern Ocean Medical CenterRzohfr9493 [facility] [id number] HDL Cholesterol 46 mg/dL (Normal) Comments: According to ATP-III Guidelines, HDL-C >59 mg/dL is considered anegative risk factor for CHD. LDL Cholesterol Calc 70 mg/dL (Normal) Range: 0-99 LDL/HDL Ratio 1.5 {ratio_units} (Normal) Range: 0.0-3.6 VLDL Cholesterol Ezequiel 18 mg/dL (Normal) Range: 5-40 Cholesterol, Total 134 mg/dL (Normal) Range: 100-199 Triglycerides 89 mg/dL (Normal) Range: 0-149 26-Vbd-838840:01 CBC WITH MANUAL DIFF Comments: PATIENT WAS FASTINGPERFORMED BY: LabCoSouthern Ocean Medical CenterJpvcgf2066 [facility] [id number] Information: [id number] (99841) Baso (Absolute) 0.0 {x10E3/uL} (Normal) Range: 0.0-0.2 [...] (Normal) Range: 4.0-10.5 :59 HgA1C , Office (07266) HgA1C , Office 6.6 % (Normal) Range: 4.6 - 7.1 :59 Blood Glucose , Office (32058) Blood Glucose , Office 105 (Normal) :29 HgA1C , Office (29783) Comments: done km HgA1C , Office 7.2 % (Abnormal) Range: 4.6 - 7.1 :29 Blood Glucose , Office (48173) Comments: done Blood Glucose , Office 134 (Normal) :04 HgA1C , Office (34922) Comments: done km HgA1C , Office 6.7 % (Normal) Range: 4.6 - 7.1 :04 Blood Glucose , Office (13748) Comments: done Blood Glucose , Office 141 (Normal) :27 TSH (32972) Comments: PATIENT WAS FASTINGPERFORMED BY: Libra AllianceSouthern Ocean Medical CenterAzvuhq3981 [facility] [id number] TSH 3.740 {uIU/mL} (Normal) Range: 0.450-4.500 :27 METABOLIC PANEL, COMPREHENSIVE Comments: PATIENT WAS FASTINGPERFORMED BY: AndigilogSouthern Ocean Medical CenterUrtrtd6277 [facility] [id number] (07932) A/G Ratio 1.7 (Normal) Range: 1.1-2.5 Albumin, [...] Range: 135-145 25-Oct-20089:27 LIPOPROTEIN, BLD, BY NMR (96575) Comments: PATIENT WAS FASTINGClinical Information: ADD 189907, [id number] PERFORMED BY: [facility]6370 [facility] [id number] Cholesterol, Total 149 mg/dL (Normal) HDL-C 41 [...] mg/dL (Normal) 25-Oct-20089:27 CBC WITH MANUAL DIFF (83841) Comments: PATIENT WAS FASTINGPERFORMED BY: LabCoSouthern Ocean Medical CenterSytjsd9056 [facility] [id number] Baso (Absolute) 0.0 {x10E3/uL} (Normal) Range: 0.0-0.2 [...] (Normal) Range: 4.0-10.5 :55 HgA1C , Office (31836) Comments: done km HgA1C , Office 5.9 % (Normal) Range: 4.6 - 7.1 :55 Blood Glucose , Office (79684) Comments: done km Blood Glucose , Office 115 (Normal) 28-Amy-798444:10 TSH (10428) Comments: REpeat first week in September; PATIENT NOT FASTINGClinical Information: ADD DRAW FEE 795794 ADD J 27637 PERFORMED BY: AndigilogSouthern Ocean Medical CenterPptxwn8301 [facility] [id number] TSH 3.800 {uIU/mL} (Normal) Range: 0.450-4.500 48-Jld-910502:48 TSH (96246) Comments: PATIENT WAS FASTINGPERFORMED BY: [employer] Ugwjhq2835 [facility] [id number] TSH 4.538 {uIU/mL} (Abnormal) Range: 0.450-4.500 18-Olf-412058:48 MICROALBUMIN: CREATININE RATIO Comments: PATIENT WAS FASTINGPERFORMED BY: Libra AllianceSouthern Ocean Medical CenterZnohtw50[address] [place] [address] [id number] (91738) AND (00283) Creatinine, Urine 370.1 mg/dL (Abnormal) Range: 22.0-328.0 Microalb/Creat Ratio 1.0 {ug/mg_creat} (Normal) Range: 0.0-30.0 Microalbumin, Urine 3.7 ug/mL (Normal) Range: 0.0-17.0 68-Yqw-755315:48 METABOLIC PANEL, COMPREHENSIVE Comments: PATIENT WAS FASTINGPERFORMED BY: Libra AllianceMary Ville 2766070 [facility] [id number] (94681) A/G Ratio 1.6 (Normal) Range: 1.1-2.5 Albumin, [...] Sodium, Serum 140 mmol/L (Normal) Range: 135-145 01-Pkl-752695:48 CBC WITH MANUAL DIFF (20996) Comments: PATIENT WAS FASTINGClinical Information: ADD DRAW FEE [id number] ADD J 77012 PERFORMED BY: LabDiane Ville 8889270 [facility] [id number] Baso (Absolute) 0.0 {x10E3/uL} (Normal) Range: 0.0-0.2 [...] {x10E3/uL} (Normal) Range: 4.0-10.5 :48 LIPID PANEL (77619) Comments: PATIENT WAS FASTINGPERFORMED BY: [facility]6370 [facility] [id number] Cholesterol, Total 171 mg/dL (Normal) Range: 100-199 HDL Cholesterol 45 mg/dL (Normal) Comments: According to ATP-III Guidelines, HDL-C >59 mg/dL is considered anegative risk factor for CHD. LDL Cholesterol Calc 99 mg/dL (Normal) Range: 0-99 LDL/HDL Ratio 2.2 {ratio_units} (Normal) Range: 0.0-3.6 Triglycerides 133 mg/dL (Normal) Range: 0-149 VLDL Cholesterol Ezequiel 27 mg/dL (Normal) Range: 5-40 45-Mcp-838840:24 HgA1C , Office (49322) Comments: done km HgA1C , Office 6.5 % (Normal) Range: 4.6 - 7.1 :24 Blood Glucose , Office (95412) Comments: done Blood Glucose , Office 113 (Normal) :38 HgA1C , Office (95299) Comments: done sylvain HgA1C , Office 6.0 % (Normal) Range: 4.6 - 7.1 :38 Blood Glucose , Office (72821) Comments: done Blood Glucose , Office 132 (Normal) :09 PSA,TOT SCREEN 1.30 ng/mL (Normal) Range: 0.00-4.00 Comments: This test was performed using the TPSA method for theSc[employer] chemistry system.Values obtained with different assay methods cannot be usedinterchangably.When changing PSA assays in the course of monito ring apatient, additional sequential testing should be carriedout to confirm baseline values. :00 HgA1C , Office (12244) Comments: done sylvain HgA1C , Office 7.4 % (Abnormal) Range: 4.6 - 7.1 :00 Blood Glucose , Office (29872) Comments: done Blood Glucose , Office 138 (Normal) :32 MYOCARD PERF SPECT REST/STRESS Radiology Report See Note (Normal) Comments: Exam Number: [id number] MYOCARDIAL PERFUSION SCAN TECHNIQUEThe patient was injected [...] of 60%. Reported By: LOUIS CASTILLO M.D. 18-Gng-553584:27 URINALYSIS W/O MICRO (30303) Comments: PATIENT WAS FASTINGPERFORMED BY: [employer] SARL70 [facility] HospitalKallfly Pte LtdECU [facility] [id number] Appearance Clear (Normal) Bilirubin Negative (Normal) Glucose Negative (Normal) Ketones Negative (Normal) Microscopic Examination MICRON (Normal) Comments: Microscopic follows if indicated. Nitrite, Urine Negative (Normal) Occult Blood Negative (Normal) pH 7.5 (Normal) Range: 5.0-7.5 Protein Trace (Normal) Specific [place] 1.023 (Normal) Range: 1.005-1.030 Urine-Color Yellow (Normal) Urobilinogen,Semi-Qn 0.2 mg/dL (Normal) Range: 0.0-1.9 WBC Esterase Negative (Normal) 12-Czk-457315:27 TSH (05538) Comments: PATIENT WAS FASTINGPERFORMED BY: Apparcando6370 [facility] [id number] TSH 3.505 {uIU/mL} (Normal) Range: 0.350-5.500 Comments: Adult TSH concentrations below 5.5 uIU/mL do not rule out the presence of subclinical hypothyroidism. :27 MICROALBUMIN URINE QUANT Comments: PATIENT WAS FASTINGPERFORMED BY: [facility]6370 [facility] [id number] (31713) Microalbum.,U,Random 4.4 ug/mL (Normal) Range: 0.0-17.0 :27 METABOLIC PANEL, COMPREHENSIVE Comments: PATIENT WAS FASTINGPERFORMED BY: LabMclaren [facility]6370 [facility] [id number] (86229) A/G Ratio 1.8 (Normal) Range: 1.1-2.5 Albumin, [...] Range: 135-145 :27 CBC WITH MANUAL DIFF (88219) Comments: PATIENT WAS FASTINGClinical Information: ADD [id number], ADD [id number] PERFORMED BY: [employer] SARL70 [facility] [id number] Baso (Absolute) 0.0 {x10E3/uL} (Normal) Range: 0.0-0.2 [...] 11.7-15.0 WBC 5.5 {x10E3/uL} (Normal) Range: 4.0-10.5 00-Hvv-357217:27 LIPID PANEL (34565) Comments: PATIENT WAS FASTINGPERFORMED BY: [employer] Ocddyi2639 [facility] [id number] LDL/HDL Ratio 2.4 {ratio_units} (Normal) Range: 0.0-3.6 Cholesterol, Total 212 mg/dL (Abnormal) Range: 100-199 Comment SPRCS (Normal) Comments: If initial LDL-cholesterol result is >100 mg/dL, assess forrisk factors. HDL Cholesterol 52 mg/dL (Normal) Range: 40-59 LDL Cholesterol Calc 123 mg/dL (Abnormal) Range: 0-99 Triglycerides 184 mg/dL (Abnormal) Range: 0-149 VLDL Cholesterol Ezequiel 37 mg/dL (Normal) Range: 5-40 :28 HgA1C , Office (38455) Comments: done HgA1C , Office 6.9 % (Normal) Range: 4.6 - 7.1 :28 Blood Glucose , Office (64311) Comments: done Blood Glucose , Office 157 (Normal) :58 HgA1C , Office (90420) Comments: done HgA1C , Office 6.6 % (Normal) Range: 4.6 - 7.1 :58 Blood Glucose , Office (35461) Comments: done Blood Glucose , Office 136 [...] was performed using the TPSA method for the[employer] chemistry system.Values obtained with different assay methods cannot be usedinterchangably.When changing PSA assays in the course of monito ring apatient, additionaly sequential testing should be carriedout to confirm baseline values. :29 TSH 3.67 {uIU/mL} (Normal) Range: 0.34-4.82 :39 Blood Glucose , Office (47375) Comments: done km Blood Glucose , Office 98 (Normal) :39 HgA1C , Office (82655) Comments: done km HgA1C , Office 6.5 % (Normal) Range: 4.6 - 7.1 :57 HgA1C , Office (08753) HgA1C , Office 6.5 % (Normal) Range: 4.6 - 7.1 4-Cxs-686730:57 Blood Glucose , Office (76274) Blood Glucose , Office 138 (Normal) :03 HgA1C , Office (47523) HgA1C , Office 6.6 % (Normal) Range: 4.6 - 7.1 1-Yyz-732655:03 Blood Glucose , Office (82641) Blood Glucose , Office 92 (Normal) 86-Kko-344139:28 LIVER ALB 3.6 g/dL (Normal) Range: 3.4-5.0 ALK P 96 U/L (Normal) Range: 50-136 ALT 47 [iU]/L (Normal) Range: 30-65 AST 20 U/L (Normal) Range: 15-37 D BILI 0.08 mg/dL (Normal) Range: 0.00-0.30 T BILI 0.44 mg/dL (Normal) Range: 0.00-1.00 T PROT 6.9 g/dL (Normal) Range: 6.4-8.2 43-Wij-858809:28 MICROALB:CRE UR MALB:CREAT 8.4 {mg/g_CRE} (Normal) MICROALBUMIN,UR 11.6 mg/L (Normal) UR CREAT 138.8 mg/dL (Normal) 78-Tfy-948671:28 PFLIP CHOL 188 mg/dL (Normal) Comments: <200 [...] 1 month- gen med / will need [facility] Indication: Physical exam WITHOUT abnormal findings (Renamed [...] from H/O transient cerebral ischemia) : Reviewed Cancellation Clerk Letter Indication: History of transient cerebral ischemia (Renamed from H/O transient cerebral ischemia) Hypertensive urgency : Reviewed Cancellation Clerk Letter Indication: Hypertensive urgency Heart disease, hypertensive, [...] Current Prescription(s) Indication: Hypothyroidism Hypothyroidism : Reviewed Cancellation Clerk Letter Indication: Hypothyroidism Uncontrolled type II diabetes [...] from there Planned Observations T4, FREE (THYROXINE) (94088)Indication: Hypothyroidism On: :48 Request T3, FREE (TRIDOTHYRONINE) (02538)Indication: Hypothyroidism On: :48 Request URINALYSIS, W/ MICRO (34828)Indication: Essential hypertension On: :47 Request MICROALBUMIN: CREATININE RATIO (24468) AND (30906)Indication: Essential hypertension On: :47 Request METABOLIC PANEL, COMPREHENSIVE (06342)Indication: Essential hypertension On: :47 Request CBC W/AUTO DIFF WBC (08457)Indication: Essential hypertension On: :47 Request LIPID PANEL (22706)Indication: Hypercholesterolemia On: :47 Request TSH (92939)Indication: Hypothyroidism On: :47 Request CALCIFIDIOL (54524) VIT D 25Indication: Vitamin D deficiency On: :47 Request Influenza A&B Viral Culture (19840)Indication: Flu-like symptoms On: 0-Fno-666337:53 Request POTASSIUM SERUM (80880)Indication: Potassium disorder On: 51-Iyx-226715:53 Request CALCIFEDIOL (77568)Indication: Vitamin D deficiency On: 33-Cyo-37638:36 Request TSH (37568)Indication: Hypothyroidism On: 00-Iid-67116:35 Request Lipid Panel (17268)Indication: Hypercholesterolemia On: :34 Request Metabolic Panel, Comprehensive (43338)Indication: Hypercholesterolemia On: 08-Seh-01254:34 Request URINE VMA (70811)Indication: Hypertensive urgency On: 71-Ecr-865092:54 Request Catecholamines,24-Hour Urine (34675)Indication: Hypertensive urgency On: 49-Zti-725113:54 Request RENIN (15225)Indication: Hypertensive urgency On: 55-Dcx-535221:54 Request ALDOSTERONE (81866)Indication: Hypertensive urgency On: 54-Xtj-284691:54 Request METANEPHRINES (92228)Indication: Hypertensive urgency On: 88-Yqd-224636:54 Request CBC (Auto) (73486)Indication: Hypertensive urgency On: 89-Kyq-421939:36 Request Metabolic Panel, Basic (54176)Indication: Hypertensive urgency On: 83-Tli-687129:36 Request TSH (29949)Indication: Hypertensive urgency On: 28-Kpc-756168:24 Request CBC WITH MANUAL DIFF (95793)Indication: Hypertensive urgency On: 93-Adp-066390:24 Request METABOLIC PANEL, COMPREHENSIVE (16885)Indication: Hypertensive urgency On: 75-Ruf-840991:24 Request Troponin I (92717)Indication: Hypertensive urgency On: 02-Pja-304085:20 Request CPK MB FRACTION (94513)Indication: Hypertensive urgency On: 97-Iyq-233797:20 Request CREATINE KINASE TOTAL (19557)Indication: Hypertensive urgency On: 60-Cax-443588:20 Request TSH (26020)Indication: Hypothyroidism On: 42-Mak-568265:56 Request HgA1C , Office (48902)Indication: Controlled diabetes mellitus type II without complication On: 36-Leq-01485:56 Request PSA (PROSTATE SPECIFIC ANTIGEN) (V76.44)Indication: Screening for prostate cancer On: 66-Div-62457:20 Request TSH (90857)Indication: Uncontrolled type II diabetes mellitus On: :19 Request URINALYSIS, W/ MICRO (29587)Indication: Uncontrolled type II diabetes mellitus On: :19 Request MICROALBUMIN: CREATININE RATIO (06989) AND (98635)Indication: Uncontrolled type II diabetes mellitus On: :19 Request METABOLIC PANEL, COMPREHENSIVE (54334)Indication: Uncontrolled type II diabetes mellitus On: :19 Request LIPOPROTEIN, BLD, BY NMR (13578)Indication: Uncontrolled type II diabetes mellitus On: :19 Request LIPID PANEL (02289)Indication: Uncontrolled type II diabetes mellitus On: :19 Request CBC WITH MANUAL DIFF (42932)Indication: Uncontrolled type II diabetes mellitus On: :19 Request LIPOPROTEIN, BLD, BY NMR (62551)Indication: Hypercholesterolemia On: :57 Request LIPID PANEL (64633)Indication: Hypercholesterolemia On: :57 Request Comments: do in 3 months LIPID PANEL (46691)Indication: Controlled diabetes mellitus type II without complication On: :22 Request T3, FREE (TRIDOTHYRONINE) (08937)Indication: Abnormal TSH On: :40 Request T4, FREE (THYROXINE) (03538)Indication: Abnormal TSH On: :40 Request TSH (26156)Indication: Abnormal TSH On: :40 Request Comments: do in 2-3 mo TSH (73853)Indication: Controlled diabetes mellitus type II without complication On: 52-Wjw-908614:29 Request METABOLIC PANEL, COMPREHENSIVE (26707)Indication: Controlled diabetes mellitus type II without complication On: 81-Lhg-694082:29 Request MICROALBUMIN: CREATININE RATIO (90030) AND (25252)Indication: Controlled diabetes mellitus type II without complication On: :29 Request CBC WITH MANUAL DIFF (36173)Indication: Controlled diabetes mellitus type II without complication On: 92-Pke-372262:29 Request LIPID PANEL (48103)Indication: Controlled diabetes mellitus type II without complication On: 10-Fqq-783166:29 Request PSA (PROSTATE SPECIFIC ANTIGEN) (V76.44)Indication: Uncontrolled type II diabetes mellitus On: :18 Request LIPID PANEL (78791)Indication: Hypercholesterolemia On: 33-Jjy-698203:02 Request HEPATIC FUNCTION PANEL (57953)Indication: Hypercholesterolemia On: 56-Szu-045099:02 Request TSH (51840) On: :45 Request METABOLIC PANEL, COMPREHENSIVE (18842) On: :44 Request LIPID PANEL (55962) On: :44 Request CBC WITH MANUAL DIFF (29494) On: :44 Request PSA (PROSTATE SPECIFIC ANTIGEN) (95931) On: 6-Szm-949130:17 Request Comments: screening TSH (78401) On: Request URINALYSIS W/O MICRO (29468) On: Request MICROALBUMIN URINE QUANT (31237) On: Request LIPID PANEL (05285) On: Request METABOLIC PANEL, COMPREHENSIVE (66874) On: Request CBC WITH MANUAL DIFF (52425) On: Request MICROALBUMIN: CREATININE RATIO (02618) On: Request AND (69814) METABOLIC PANEL, COMPREHENSIVE (85322) On: Request LIPID PANEL (54877) On: Request CBC WITH MANUAL DIFF (66794) On: Request Planned Procedures PNEUM VAC ADLT/IMUMNOSPR, SBC/INTRM On: 07-Feb-2018 Intent (38604)By: Denisa Macias DO Comments: 0.5 cc given sq lt arm lot [id number] exp 04/21/19 Denisa Macias DO X-RAY OF RIGHT HAND, ONE OR TWO On: 07-Feb-2018 Intent VIEWS (90870)By: Denisa Macias DO Comments: attention to hypothenar area for FB Denisa Macais DO TD VACCINE ADULT (01692)By: Venkata On: 23-Dec-2017 Intent Anne Comments: a105a3/27261.5mlr dltd, IMMLONG Flu Vaccine (Quadrivalent) 23015Gc: On: 28-Nov-2017 Intent Visit, Nurse Comments: Lot #[id number]/30/Site-L dltd, IMDose prefilled syringegiven by: Genna VARGAS.VIS reviewed and ABN signed X-RAY RIGHT KNEE, 3 VIEWS (07904)By: On: 31-Jul-2017 Intent Denisa Macias DO, DO, Kathleen Radiology - Knee - Right - Weight On: 31-Jul-2017 Intent BearingBy: Denisa Macias DO, DO, Kathleen ELECTROCARDIOGRAM, COMPLETE (ECG) On: 31-Jul-2017 Intent (13729)By: Denisa Macias DO Comments: nsr no acute chg Denisa Macias DO CT - Brain/Head (IV Contrast On: 31-Dec-2016 Intent Needed)By: Denisa Macias DO, DO, Kathleen Echo CompleteBy: Denisa Macias DO On: 31-Dec-2016 Intent Denisa Macias DO LJIB-RM-VGDK BEHAVIORAL COUNSELING On: 31-Dec-2016 Intent FOR OBESITY, 15 MINUTES (G0447)By: Denisa Macias DO, DO, Kathleen Flu Vaccine (Quadrivalent) 43104Df: On: 17-Dec-2016 Intent Denisa Macias DO, DO, Comments: Lot:[id number]:09/09/17Amt:0.5mlRoute:IMSite: L DltdGiven By: YURY Valdez signed Denisa MAGNETIC RESONANCE ANGIOGRAPHY OF On: 24-Sep-2016 Intent CAROTID AND VERTEBRAL VESSELS (49712)By: Denisa Macias DO, DO, Kathleen ELECTROCARDIOGRAM, COMPLETE (ECG) On: 24-Sep-2016 Intent (21066)By: Denisa Macias DO Comments: sinus gabby no acute chg- on BB Denisa Macias DO Renal Duplex ScanBy: Colleen GARCIA, On: 24-Sep-2016 Intent Denisa Valladares DO ELECTROCARDIOGRAM, COMPLETE (ECG) On: 10-Sep-2016 Intent (30877)By: Denisa Macias DO Comments: sinus gabby no acute chg Denisa Macias DO CT HEAD OR BRAIN WO CONTRAST On: 21-May-2016 Intent (84547)By: Denisa Macias DO, DO, Kathleen Flu Vaccine (Quadrivalent) 58692Ma: On: 23-Dec-2015 Intent Emeka Levin Comments: FLUlot: [id number]:08/08site:Lt deltoidroute:IMdose:.5mlDEMICK, MA Echo CompleteBy: Denisa Macias DO On: 24-Oct-2015 Intent [address] DO [address] SCAN OF CHEST WITH CONTRAST On: 24-Oct-2015 Intent (11786)By: Denisa Macias DO, DO, Kathleen CT - Chest (IV Contrast Needed)By: On: 20-Jun-2015 Intent Denisa Macias DO, DO, Kathleen Echo CompleteBy: Denisa Macias DO On: 21-Feb-2015 Intent Denisa Macias DO Flu Vaccine (Quadrivalent) 96443Px: On: 05-Jan-2015 Intent Denisa Macias DO, DO, Comments: lot [id number]: 09/22/2015site/route L rafa, IMamt 0.5mlVIS and ABN signed when applicableChelsea, CMA4 Denisa ELECTROCARDIOGRAM, COMPLETE (ECG) On: 16-Nov-2014 Intent (62664)By: Denisa Macias DO Comments: nsr no acute changes - Denisa Macias DO Prevnar 13 (29978)By: Colleen GARCIA, On: 10-May-2014 Intent Denisa Valladares DO Comments: Lot:[id number]:08/07Dose:0.5mgRoute:imSite:l armGiven By:MIGUEL ÁNGEL signed Inhaler Demonstration (65916)By: On: 23-Mar-2014 Intent Hayley Stone CNP ADMINISTRATION OF INFLUENZA VIRUS On: 25-Dec-2013 Intent VACCINE (G0008)By: Visit, Nurse Comments: Lot #[id number]-L dltd, IMDose prefilled syringegiven by:YURY Seymour and ABN signed FLU VAC, SPLIT, >3 YEARS, INTRAMUSC On: 25-Dec-2013 Intent (58395)By: Visit, Nurse EKG (78654)By: Denisa Macias DO On: 08-Oct-2013 Intent Denisa [...] PNEUM VAC ADLT/IMUMNOSPR, SBC/INTRM On: 19-Dec-2012 Intent (36096)By: Marge Smith Comments: Lot:[id number]:10/25/13Dose:0.5mgRoute:imSite:r armGiven By:MIGUEL ÁNGEL signed ADMINISTRATION OF PNEUMOCOCCAL On: 19-Dec-2012 Intent VACCINE (G0009)By: Marge Smith FLU VAC, SPLIT, >3 YEARS, INTRAMUSC On: 17-Dec-2012 Intent (59993)By: Anne Edge LPN Comments: Lot:[id number]:6.14Amt:0.5mlRoute:IMSite: L DltdGiven By: YURY Valdez signed Eprescribed [...] On: 04-Aug-2012 Intent Denisa Colleen DODenisa EKG (70168)By: ColleenDenisa pratt DO On: 28-Jul-2012 Intent Denisa Macias DO Comments: nsr no acute changes Echo CompleteBy: Colleen DOInesDenisa On: 21-Mar-2012 Intent Colleen DODenisa Echo CompleteBy: Colleen DO Denisa On: 19-Mar-2012 Intent Denisa Macias DO Eprescribed prescriptions (G8553)By: On: 13-Mar-2012 Intent Anne Edge LPN Eprescribed prescriptions (G8553)By: On: 31-Dec-2011 Intent Denisa Macias DO, DO, Kathleen Nuclear Medicine - HIDA w/CPKBy: On: 19-Dec-2011 Intent Ciesa POWERHOUSE ELECTRICIAN, Supriya EKG (78775)By: Denisa Macias DO On: 13-Dec-2011 Intent Denisa Macias DO Comments: nsr no acute chg Ultrasound - GallbladderBy: Colleen On: 29-Nov-2011 Intent Denisa GARCIA DO, Kathleen Eprescribed prescriptions (G8553)By: On: 29-Nov-2011 Intent Anne Edge LPN FLU VAC, SPLIT, >3 YEARS, INTRAMUSC On: 27-Nov-2011 Intent ([id number])By: Marissa Palomino LPN Comments: Lot #[id number]/30/13Site-left deltoidgiven by: Todd Palomino LPN ADMINISTRATION OF INFLUENZA VIRUS On: 27-Nov-2011 Intent VACCINE ([id number])By: Marissa Palomino LPN MRI - Lumbar Spine (IV Contrast On: 26-Jan-2011 Intent Needed)By: Denisa Macias DO, DO, Kathleen EKG ([id number])By: Denisa Macias DO On: 05-Jan-2011 Intent Denisa Macias DO Comments: nsr no acute chg Cartoid DopplerBy: Colleen GARCIA, On: 05-Jan-2011 Intent Denisa Valladares DO EKG ([id number])By: Denisa Macias DO On: 06-Dec-2010 Intent Denisa Macias DO Comments: nsr no acute chgn- Bio Z ([id number])By: Denisa Macias DO On: 06-Dec-2010 Intent Denisa Macias DO Comments: stabel parameters- no chg in rx IMMUNIZ ADMNIN, 1 VAC, SNGL/COMBO On: 06-Dec-2010 Intent ([id number])By: Denisa Macias DO, DO, Kathleen FLU VAC, SPLIT, >3 YEARS, INTRAMUSC On: 06-Dec-2010 Intent ([id number])By: Denisa Macias DO, DO, Kathleen TDAP VACCINE >7 IM ([id number])By: Colleen On: 30-Aug-2010 Denisa Izquierdo DO, DO, Kathleen Comments: Lot #[id number]/25/13Site-left deltoidgiven by: Todd Palomino LPN ADMINISTRATION OF INFLUENZA VIRUS On: 27-Dec-2009 Intent VACCINE ([id number])By: Edilia Vasquez LPN FLU VAC, SPLIT, >3 YEARS, INTRAMUSC On: 27-Dec-2009 Intent ([id number])By: Edilia Vasquez LPN Comments: Lot #[id number] 4PExp-07/03Site-L armDose0.5mlgiven by: EKG ([id number])By: Denisa Macias DO On: 15-Nov-2009 Intent Denisa Macias DO Comments: nsr no acute changes MRI - Shoulder(s) - LeftBy: Colleen On: 11-May-2009 Intent Denisa GARCIA DO, Kathleen Bio Z ([id number])By: Denisa Macias DO On: 25-Oct-2008 Intent Denisa Macias DO Comments: NORMAL SVR AND CO EKG ([id number])By: Denisa Macias DO On: 25-Oct-2008 Intent Denisa Macias DO Comments: NSR NO ACUTE CHANGES Bio Z ([id number])By: Denisa Macias DO On: 04-Jun-2008 Intent Denisa Macias DO Comments: normal IMMUNIZ ADMNIN, 1 VAC, SNGL/COMBO On: 05-Jan-2008 Intent ([id number])By: Denisa Macias DO, DO, Kathleen FLU VAC, SPLIT, >3 YEARS, INTRAMUSC On: 05-Jan-2008 Intent ([id number])By: Denisa Macias DO, DO, Kathleen Bio Z ([id number])By: Denisa Macias DO On: 07-Nov-2007 Intent Denisa Macias DO Comments: normal svr and co Nuclear Stress Test/Stress On: 15-Sep-2007 Intent SPECT/TreadmillBy: Colleen GARCIA, Comments: [facility] Denisa Valladares DO Echo CompleteBy: Denisa Macias DO On: 07-Aug-2007 Intent Denisa Macias DO Cartoid DopplerBy: Colleen DO, On: 07-Aug-2007 Intent Denisa Valladares DO EKG ([id number])By: Denisa Macias DO On: 07-Aug-2007 Intent Denisa Macias DO Comments: nsr no acute ischemic changes EKG ([id number])By: Denisa Macias DO On: 29-Nov-2006 Intent Denisa [...] The patient does have durable power of compliance attorney and living will. The patient has [...] social history. Yes the patient did have ([facility] /30wisper 05/25) a mini mental status End: [...] The patient does have durable power of compliance attorney and living will. The patient has noticed nothing from the geriatic depression scale. Other providers contributing to the patient's care are health and physical education professor (dr zayas) and other: ([facility], vision test up to date).Encounter Diagnosis: [...] in bathroom. The patient has completed the [facility] preventative measures: PSA testing (2011) and colonoscopy (2011). The patient does have durable power of compliance attorney and living will. The patient has noticed nothing from the geriatic depression scale . Other providers contributing to the patient's care are health and physical education professor (Dr. Antonio) and surgeon (Dr. Negro -- [...] criselda toscano does have durable power of compliance attorney and living will. The patient has noticed nothing from the geriatic depression scale. Other providers contributing to the patient's care are mri technician and other: (mental health tech, ENT). Encounter Diagnosis: Type II Diabetes,controlled (250.00), [...]
--- OUTSIDE RECORDS SUMMARY | 2018-06-16 21:58 | XMS RPT_ITS | Continuity of Care Document ---
:1945 External Reference #:[id number] Author Organization [facility] Address [address] [facility] [address] [place] [address] Phone Care Team Providers Name Role Phone Denia Macias DOeen Unavailable Physical Therapy, [facility] Unavailable Herberth Pollock Unavailable Lawrence Church MD Unavailable Bajlit Arcos MD Unavailable Dr. Nik Ch Unavailable [...] not in neptali anymore so we will sampler pickup ball Status: Active TUBULOVILLOUS ADENOMA, NOS Comments: [...] DO, DO, Kathleen Start : 08-Oct-2013 Active Folic Acid 1 MG Oral Tablet 1 [...] DO, Kathleen Start : 27-Dec-2016 Active Pen Ewing 08/07 31G X 8 MM Miscellaneous 1 [...] Start : 08-Oct-2013 End : 31-Jul-2017 Inactive Cialis 5 MG Oral Tablet 1 (one) Tablet qd for 90 days Quantity: 90 {Tablet} Refills: 3 Ordered:31-Jul-2017 Anne Edge LPN Start : 27-May-2017 End : 31-Jul-2017 Inactive CIALIS, 20MG (Oral [...] (External Solution) uad (10 %) Inactive Comments:Trillium Man[place] Levitra 10 MG Oral Tablet 1 Tablet [...] Start : 15-May-2017 End : 31-Jul-2017 Inactive Zithromax Z-Luke 250 MG Oral Tablet 1 (one) Tablet Tablet tad for 0 days Quantity: 1 {Package} Refills: 0 Ordered:10-Sep-2016 Anne Edge LPN Start : 03-May-2016 End : 10-Sep-2016 Inactive ASPIRIN BUF(MRRPFA-SVOWTV-OWT), 325MG (Oral Tablet) 1 (one) Tablet Daily [...] 2 Views Result: Comments: See Note; NOTES: [facility] Imaging Services [address] [place] [address] Hand 2 Views MR#: [id number] Acct: [id number] Name: YOHANNES CADET Rep #: [id number] : 0 1945 M 72 From: Morales Perla MD PCP: Denisa Macias DO Status: REG CLI Study: Hand 2 Views Date of Exam: 02/07/18 Exam# [id number] Ordering Dr: Denisa Macias DO STUDY: X-RAY [...] Service support , CC: Denisa Macias DO Statistical Developer: Signed 05-Dec-2016 PT D/C Summary (1) Result: Comments: See Note; NOTES: [facility] Physical Therapy [facility] [address] [place] [address] Fax REHABILITATION SERVICES DISCHAR GE SUMMARY MR#: [id number] Acct: [id number] Name: YOHANNES CADET Rep #: [id number] : 1945 71 From: Aftab Mendez PT, ATC Referring Dr.: Nik Ch DPM Status: REG RCR Insurance: MEDIC ARE PART A B S [employer] HP - PT D/C Summary It has [...] please feel free to call me at [phone]. Thank you for the referral of this patient. Sincerely, Aftab Mendez PT, <Electronically signed by Aftab Mendez PT, ATC> 12/05/16 1100 CC: Nik valdes DPM; Denisa Macias DO [facility] Signed 09-Oct-2016 Inital Evaluation (1) - PT Result: Comments: See Note; NOTES: [facility] [address] [place] [address] Fax REHABILITATION SERVICES INITIAL EVALUATION MR#: [id number] Acct: [id number] Name: YOHANNES CADET Rep #: [id number] : 1945 71 From: Aftab Mendez PT, ATC Referring Dr.: Nik Ch DPM Status: REG RCR Insurance: [employer] PART A B WPS [employer] Patient's Visit Information YOHANNES CADET is a [...] to be FAXED BACK to us at [phone] for Medicare purposes. Please let me know if there are questions or concerns regarding this plan of care. Physician Signature: Date: <Electronically signed by Aftab Mendez PT, ATC> 1001 CC: Nik Ch DPM; Denisa Macias DO [facility] Signed For Medicare only, by signing this I certify the plan of care. Physicians Signature Date 21-May-2016 Brain/Head without Contrast Result: Comments: See Note; NOTES: [facility] Imaging Services [address] [place] [address] [place] [address] Verdana 4d Brain/Head without Contrast MR#: [id number] Acct: [id number] Name: YOHANNES CADET Rep #: [id number] : 1945 M 70 From: Sincere Solorio DO PCP: Denisa Macias DO Status: REG CLI Study: Brain/Head without Contrast Date of Exam: 05/21/16 Exam# [id number] Ordering Dr: Denisa Macias DO STUDY: CT [...] at 14:26 EST Tel , Service support [phone], CC: Denisa Macias DO Statistical Developer: Signed 14-Nov-2015 Echocardiogram Complete Result: Comments: See Note; NOTES: [facility] Cardiovascular Services [address] [place] [address] Echo Complete 11/14/15 1303 MR#: [id number] Acct: [id number] Name: YOHANNES CADET Rep #: [id number] : 1945 70 From: Layo Raymond MD [...] Dictated: 10/24 05/10 1303 Date Transcribed: 11/14/151648 Statistical Developer: Signed 14-Nov-2015 Chest WITH Contrast Result: Comments: See Note; NOTES: [facility] Imaging Services [address] [place] [address] Verdana 4d Chest WITH Contrast MR#: [id number] Acct: [id number] Name: YOHANNES CADET Rep #: [id number] : 1945 M 70 From: Asia Peres MD PCP: Denisa Macias DO Status: REG CLI Study: Chest WITH Contrast Date of Exam: 11/14/15 Exam# [id number] Ordering Dr: Denisa Macias TUDY: CT CHEST [...] Service support , CC: Denisa Macias DO Statistical Developer: Signed 24-Oct-2015 ELECTROCARDIOGRAM, COMPLETE (ECG) (83764) Comments: sinus gabby - no acute chg - same as old and on BB Result: [MEASUREMENTS ANALYSIS] Date of Test: 10/24/2015 09:30:26; Heart Rate: 55; ID Interval: 184; QRS: 105; QT Interval: 404; Corrected QT Interval (QTc): 396; P Wave [place]: 26; QRS Wave [place]: 27; T Wave [place] : 34; Blood Pressure: 138/70 [ECG DIAGNOSTIC STATEMENTS] Date of Test: 10/24/2015 09:30:26; Summary: Sinus Bradycardia WITHIN NORMAL LIMITS 29-Sep-2015 Knee 4 or More Views Result: Comments: See Note; NOTES: [facility] Imaging Services [address] [place] [address] Verdana 4d Knee 4 or More Views MR#: [id number] Acct: [id number] Name: YOHANNES CADET Rep #: [id number] : 1945 M 70 From: Tripp Miller MD PCP: Denisa Macias DO Status: REG CLI Study: Knee 4 or More Views Date of Exam: 09/29/15 Exam# [id number] Ordering Dr: Carrol Bautista DO STUDY: X-RAY [...] FACR at 9:18 EDT , Service support [phone], RAD/Knee 4 or More Views IMPRESSION: Moderate arthrosis of the patellofemoral joint Electronically Signed: Tripp Miller MD, FACR at 9:18 EDT , Service support , CC: Carrol Kirkpatrick DO; Denisa Macias DO Statistical Developer: Signed 27-Oct-2013 PT Discharge Summary Result: Comments: See Note; NOTES: [facility] Physical Therapy [address] [place] [address] Fax REHABILITATION SERVICES DISCHARGE SUMMARY MR#: [id number] Acct: [id number] Name: YOHANNES CADET Rep #: [id number] : 1945 68 From: Baljit Silva Referring DrAddi: Denisa Macias DO Status: PRE RCR Eval [...] referral. Baljit Silva, PT T: GI JOB: [id number] <Electronically signed by Baljit pantoja > 10/27/13 0758 CC: Signed 27-Jul-2013 Inital Evaluation - PT Result: Comments: See Note; NOTES: [facility] [address] [place] [address]. [address] [place], [place] [address] Fax REHABILITATION SERVICES INITIAL EVALUATION MR#: [id number] Acct: [id number] Name: YOHANNES CADET Rep #: [id number] : 1945 67 From: Baljit Silva Referring Dr.: Denisa Macias DO Status: DIS RCR Insurance: [place] DICARE PART A B Eval Date: [facility] DATE OF SERVICE: 07/20/2013 REFERRING PHYSICIAN: Dr. Denisa Macias, D.O. 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 His goals are to find why yaya herman has this problems and pains, to care [...] We discussed with patient possibly using the rpie-zbc-mehpxrq orthotics before he considers fabricated orthotics due to cost. Uzair Silva PT T: GI JOB: [id number] <Electronically signed by Baljit Silva > 07/27/13 1802 CC: Signed For Medicare only, by signing this I c ertify the plan of care. Physicians Signature Date 09-Jul-2013 Hip min 2 Views Result: Comments: See Note; NOTES: [facility] Imaging Services [address] [place] [address] Radiology Report MR#: [id number] Acct: [id number] Name: YOHANNES CADET Rep #: [id number] : 1945 M 67 From: Jakob Hunt MD PCP: Denisa Macias DO Status: REG CLI Study: Hip min 2 Views Date of Exam: 07/09/13 Exam# [id number] Ordering Dr: Denisa Macias DO STUDY : [...] Jakob Hunt MD at 14:44 EDT Tel [phone], Service support [phone], Fax CC: Denisa Macias DO Statistical Developer: Signed 09-Jul-2013 Pelvis 1 or 2 Views Result: Comments: See Note; NOTES: [facility] Imaging Services [address] [place] [address] Radiology Report MR#: [id number] Acct: [id number] Name: YOHANNES CADET Rep #: [id number] : 1945 M 67 From: Jakob Hunt MD PCP: Denisa Macias DO Status: REG CLI Study: Pelvis 1 or 2 Views Date of Exam: 07/09/13 Exam# [id number] Ordering Dr: Denisa Macias TUDY: X-RAY - [...] Jakob Hunt MD at 13:32 EDT Tel [phone], Service support [phone], CC: Denisa Macias DO Statistical Developer: Signed 09-Jul-2013 EKG (43543) Comments: nsr no acute chg - ant leads are old Result: [MEASUREMENTS ANALYSIS] Date of Test: 07/09/2013 08:48:02; Heart Rate: 57; ID Interval: 164; QRS: 106; QT Interval: 408; Corrected QT Interval (QTc): 403; P Wave [place]: 25; QRS Wave [place]: 60; T Wave [place] : 62; Blood Pressure: 138/68 [ECG DIAGNOSTIC STATEMENTS] Date of Test: 07/09/2013 08:48:02; Summary: Sinus Bradycardia - Negative precordial T-waves. WITHIN NORMAL LIMITS Immunization Name Dates Details Influenza (3 years and up) on: 05-Jan-2008 Family History Unknown Family Member Name Dates Details Father Comments: [place]/CVA at 84 Status: Active Social History Name Dates Details Alcohol Use Comments: Occasional alcohol use Status: Active Non Smoker/No Tobacco Use Status: Active Tobacco use: Never smoker. Comments: 06/08/11 Status: Active Smoking Status Name Dates Details Never smoker Vital Signs Date Test Result Details 93-Cgq-384293:58 Temperature 96 f Comments: Method: Temporal Pulse [...] kg/m2 Body Surface Area Calculated 2.29 m2 23-Dec-20179:08 Temperature 97.9 f Comments: Method: Temporal Pulse [...] kg/m2 Body Surface Area Calculated 2.26 m2 67-Dlp-019130:47 Pulse 64 /min Comments: Pattern: Regular Respiration [...] Calculated 2.27 m2 :15 Comments: eye-Dr at [facility] 2013hearing -wnl Pulse 57 /min Comments: Pattern: [...] 0.00 cm Results Date Description Value Details 39-Mpy-671094:59 HgA1C , Office (45988) HgA1C , Office 7.2 % (Abnormal) Range: 4.6 - 7.1 12-Rgm-826643:59 Blood Glucose , Office (39716) Blood Glucose , Office 128 (Normal) 8-Pod-108613:20 Microscopic Examination Comments: PATIENT WAS FASTINGPERFORMED BY: [employer] [place] [id number] BY: [employer] [facility] [id number] Bacteria None seen (Normal) Mucus Threads Present (Normal) Epithelial Cells (non renal) None seen {/hpf} (Normal) Range: 0 - 10 RBC None seen {/hpf} (Normal) Range: 0 - 2 WBC 0-5 {/hpf} (Normal) Range: 0 - 5 3-Cfa-159482:20 CALCIFIDIOL (73198) VIT D Comments: PATIENT WAS FASTINGPERFORMED BY: [address] [id number] BY: [facility] Tsktln3209 [facility] [id number] 25 Vitamin D, 25-Hydroxy 55.7 ng/mL (Normal) Range: 30.0-100.0 Comments: Vitamin D deficiency has been defined by the [place] ofMedicine and an Endocrine Society practice guideline as alevel of serum 25-OH vitamin D less than 20 ng/mL (1,2).The Endocrine Society went on to further define vitamin Dinsufficiency as a level between 21 and 29 ng/mL (2).1. IOM ([place] of Medicine). 2010. Dietary reference intakes for calcium and D. [place]: The National Academies Press.2. Charles MF, Raissa OCONNELL, Nirmala ALBERT, et al. Evaluation, treatment, and prevention of vitamin D deficiency: an Endocrine Society clinical practice guideline. JCEM. 2010; 96(7):1911-30. 3-Hkv-863195:20 TSH (77709) Comments: PATIENT WAS FASTINGPERFORMED BY: [employer] [address] [id number] BY: [facility] Ggomsz1757 [facility] [id number] TSH 2.360 {uIU/mL} (Normal) Range: 0.450-4.500 8-Tro-481633:20 URINALYSIS, W/ MICRO Comments: PATIENT WAS FASTINGPERFORMED BY: [employer] [address] [id number] BY: [facility] Wpxysz1752 [facility] [id number] (07533) Microscopic Examination See below: (Normal) Comments: Microscopic was indicated and was performed. Microscopic Examination MICRON (Normal) Comments: Microscopic follows if indicated. Nitrite, Urine Negative (Normal) Urobilinogen,Semi-Qn 0.2 mg/dL (Normal) Range: 0.2-1.0 Bilirubin Negative (Normal) Occult Blood Negative (Normal) Ketones Negative (Normal) Glucose Negative (Normal) Protein Negative (Normal) WBC Esterase Negative (Normal) Appearance Clear (Normal) Urine-Color Yellow (Normal) pH 5.0 (Normal) Range: 5.0-7.5 Specific [place] 1.019 (Normal) Range: 1.005-1.030 9-Ati-762163:20 MICROALBUMIN: CREATININE Comments: PATIENT WAS FASTINGPERFORMED BY: BN [place]1447 [facility] [id number] BY: PhotodigmSaint Barnabas Behavioral Health CenterHvzrkt0957 [facility] [id number] RATIO (43571) AND (10053) Alb/Creat Ratio <2.4 {mg/g_creat} (Normal) Range: 0.0-30.0 Comments: Normal: 0.0 - 30.0 Albuminuria: 31.0 - 300.0 Clinical albuminuria: >300.0 Albumin, Urine <3.0 ug/mL (Normal) Creatinine, Urine 123.5 mg/dL (Normal) 2-Xfe-179092:20 METABOLIC PANEL, Comments: PATIENT WAS FASTINGPERFORMED BY: [employer] Ilyvrdyggg4943 [facility] [id number] BY: PhotodigmRoosevelt General HospitalNnmbqr7882 [facility] [id number] COMPREHENSIVE (71723) ALT (SGPT) 22 [iU]/L (Normal) Range: 0-44 [...] 8-27 Glucose 156 mg/dL (Abnormal) Range: 65-99 0-Clk-666223:20 CBC W/AUTO DIFF WBC Comments: PATIENT WAS FASTINGPERFORMED BY: BN [facility] Hhfaqbbjqq5326 [facility] [id number] BY: CB [facility] Ofljzh2737 [facility] [id number] (43831) Immature Grans (Abs) 0.0 {x10E3/uL} (Normal) Range: [...] 4.14-5.80 WBC 5.8 {x10E3/uL} (Normal) Range: 3.4-10.8 7-Kjr-737272:20 LIPOPROTEIN, BLD, BY NMR Comments: PATIENT WAS FASTINGPERFORMED BY: BN [facility] Nvsideklmf1033 [facility] [id number] BY: CB [facility] Mzxckj8037 [facility] [id number] (40072) LP-IR Score 66 (Abnormal) Comments: INSULIN RESISTANCE MARKER <--Insulin Sensitive Insulin Resistant--> Percentile in Reference PopulationInsulin Resistance ScoreLP-IR Score Low 25th 50th 75th High <27 27 45 63 >63LP-IR Score is inaccurate if patient is non-fasting. .The LP-IR score is a laboratory developed i [facility] that has beenassociated with insulin [...] 1600 - 2000 Very High > 2000 84-Whx-840259:40 HgA1C , Office (40741) HgA1C , Office 6.6 % (Normal) Range: 4.6 - 7.1 11-Kdb-813943:40 Blood Glucose , Office (85567) Blood Glucose , Office 75 (Normal) 15-Riq-652332:20 COLON BIOPSY (CHOOSE See Note (Normal) Comments: [facility] Aehexozdhp3561 [facility] [place], [address] SITE) Comments: Patient: YOHANNES CADET : 1945 (72/M) Acct Num: [id number] Phys: Mg Norman Unit Num: [id number] Loc: LABSPEC Specimen: [id number] Received: 09/20/17 - 2503 Spec Type: C OLON BX TISSUES TISSUES: Rectum, NOS GROSS DESCRIPTION Received in fixative is one container labeled with the patient's name and designated rectal polyp. The specimen predominantly consists of fecal material mixed with possible soares soft tissue, measuring in aggregate 2.5 x 0.6 x0.1 cm. The specimen is totally submitted in one cassette. BIJU:scott 09/23/17 TC: cannot code CPT: 59877 HEADER OPERATION: Colonoscopy with polypectomy PRE-OP DIAGNOSIS: Rectal bleeding TISSUE SUBMITTED: Rectal polyp MICROSCOPIC DESCRIPTION Slides are reviewed. MICROSCOPIC DIAGNOSIS Rectal polyp, polypectomy: Fragments of fecal material. Colonic mucosal tissue is not identified. BIJU:scott 09/24/18 Signed Magdy Purvis 09/24/17 <signature on file> 32-Fqq-868298:08 Microscopic Examination Comments: PATIENT WAS FASTINGPERFORMED BY: [employer] Kapzaw8530 Rosado RoadDublin [place] [id number] Bacteria None seen (Normal) Mucus Threads Present (Normal) Epithelial Cells (non renal) None seen {/hpf} (Normal) Range: 0 - 10 RBC None seen {/hpf} (Normal) Range: 0 - 2 WBC 0-5 {/hpf} (Normal) Range: 0 - 5 :08 T4, FREE (THYROXINE) (55432) Comments: PATIENT WAS FASTINGPERFORMED BY: [employer] Lygnil6494 Rosado RoadDublin [place] [id number] T4,Free(Direct) 1.27 ng/dL (Normal) Range: 0.82-1.77 :08 T3, FREE (TRIDOTHYRONINE) (98372) Comments: PATIENT WAS FASTINGPERFORMED BY: [facility] Gfwqmt1516 Rosado RoadDublin [place] [id number] Triiodothyronine,Free,Serum 2.7 pg/mL (Normal) Range: 2.0-4.4 69-Nhq-459598:08 CALCIFIDIOL (20077) VIT D 25 Comments: PATIENT WAS FASTINGPERFORMED BY: [facility] Pxyxwm6610 Rosado RoadDublin [place] [id number] Vitamin D, 25-Hydroxy 57.4 ng/mL (Normal) Range: 30.0-100.0 Comments: Vitamin D deficiency has been defined by the [place] of[place]icine and an Endocrine Society practice guideline as alevel of serum 25-OH vitamin D less than 20 ng/mL (1,2).The Endocrine Society went on to further define vitamin Dinsufficiency as a level between 21 and 29 ng/mL (2).1. IOM ([place] of Medicine). 2010. Dietary reference intakes for calcium and D. [place]: The National Academies Press.2. Charles MF, Raissa NC, Nirmala ALBERT, et al. Evaluation, treatment, and prevention of vitamin D deficiency: an Endocrine Society clinical practice guideline. JCEM. 2010; 96(7):1911-30. 34-Hkv-147061:08 TSH (82487) Comments: PATIENT WAS FASTINGPERFORMED BY: [facility]6370 [facility] [id number] TSH 3.370 {uIU/mL} (Normal) Range: 0.450-4.500 05-Hzw-883003:08 URINALYSIS, W/ MICRO (58644) Comments: PATIENT WAS FASTINGPERFORMED BY: [facility]6370 [facility] [id number] Microscopic Examination See below: (Normal) Comments: Microscopic was indicated and was performed. Microscopic Examination MICRON (Normal) Comments: Microscopic follows if indicated. Nitrite, Urine Negative (Normal) Urobilinogen,Semi-Qn 0.2 mg/dL (Normal) Range: 0.2-1.0 Bilirubin Negative (Normal) Occult Blood Negative (Normal) Ketones Negative (Normal) Glucose Negative (Normal) Protein Negative (Normal) WBC Esterase Negative (Normal) Appearance Clear (Normal) Urine-Color Yellow (Normal) pH 5.0 (Normal) Range: 5.0-7.5 Specific [place] 1.026 (Normal) Range: 1.005-1.030 08-Ujv-312063:08 MICROALBUMIN: CREATININE RATIO Comments: PATIENT WAS FASTINGPERFORMED BY: [facility]6370 [facility] [id number] (77842) AND (64857) Alb/Creat Ratio 1.3 {mg/g_creat} (Normal) Range: 0.0-30.0 Albumin, Urine 3.1 ug/mL (Normal) Creatinine, Urine 237.2 mg/dL (Normal) 18-Lmn-216589:08 METABOLIC PANEL, COMPREHENSIVE Comments: PATIENT WAS FASTINGPERFORMED BY: [facility]6370 [facility] [id number] (83045) ALT (SGPT) 17 [iU]/L (Normal) Range: 0-44 [...] 8-27 Glucose 142 mg/dL (Abnormal) Range: 65-99 99-Tcg-860348:08 CBC W/AUTO DIFF WBC (96489) Comments: PATIENT WAS FASTINGPERFORMED BY: LabCoSaint Barnabas Behavioral Health CenterSwjgdf9977 [facility] [id number] Immature Grans (Abs) 0.0 {x10E3/uL} (Normal) Range: [...] {x10E3/uL} (Normal) Range: 3.4-10.8 :08 LIPID PANEL (39207) Comments: PATIENT WAS FASTINGPERFORMED BY: [facility]6370 [facility] [id number] LDL/HDL Ratio 1.2 {ratio} (Normal) Range: 0.0-3.6 [...] (Normal) Range: 100-199 :08 HgA1C , Office (72999) HgA1C , Office 6.9 % (Normal) Range: 4.6 - 7.1 :08 Blood Glucose , Office (65062) Blood Glucose , Office 123 (Normal) :23 Blood Glucose , Office (31268) Blood Glucose , Office 69 (Normal) :23 HgA1C , Office (88180) HgA1C , Office 7.1 % (Normal) Range: 4.6 - 7.1 8-Oud-057916:23 Blood Glucose , Office (91309) Blood Glucose , Office 84 (Normal) 62-Vub-516253:06 Microscopic Examination Comments: PATIENT WAS FASTINGPERFORMED BY: PhotodigmSaint Barnabas Behavioral Health CenterHzgqoj6044 [facility] [id number] Bacteria Few (Normal) Mucus Threads Present (Normal) Epithelial Cells (non renal) None seen {/hpf} (Normal) Range: 0 - 10 RBC 0-2 {/hpf} (Normal) Range: 0 - 2 WBC 0-5 {/hpf} (Normal) Range: 0 - 5 6-Hqv-829078:25 Methymalonic Acid, Serum Comments: PATIENT NOT FASTINGPERFORMED BY: PhotodigmRoosevelt General HospitalKwmqvn0993 [facility] [id number] BY: [employer] [id number] (02880) Methylmalonic Acid, Serum 586 nmol/L (Abnormal) Range: 0-378 4-Oqd-940501:25 METABOLIC PANEL, Comments: PATIENT NOT FASTINGPERFORMED BY: PhotodigmSaint Barnabas Behavioral Health CenterBhbomq1521 [facility] [id number] BY: [employer] [id number] Inf ormation: A06078, 954524 [facility] (44069) ALT (SGPT) 11 [iU]/L (Normal) Range: 0-44 [...] Glucose, Serum 153 mg/dL (Abnormal) Range: 65-99 1-Mti-138181:25 CBC (AUTO) (13386) Comments: PATIENT NOT FASTINGPERFORMED BY: [employer] [id number] BY: [employer] [id number] Platelets 213 {x10E3/uL} (Normal) Range: 150-379 RDW 14.0 % (Normal) Range: 12.3-15.4 MCHC 33.2 g/dL (Normal) Range: 31.5-35.7 MCH 27.5 pg (Normal) Range: 26.6-33.0 MCV 83 fL (Normal) Range: 79-97 Hematocrit 38.2 % (Normal) Range: 37.5-51.0 Hemoglobin 12.7 g/dL (Normal) Range: 12.6-17.7 RBC 4.62 {x10E6/uL} (Normal) Range: 4.14-5.80 WBC 4.6 {x10E3/uL} (Normal) Range: 3.4-10.8 5-Lrh-129953:25 TSH (19343) Comments: PATIENT NOT FASTINGPERFORMED BY: [employer] [id number] BY: [employer] [id number] TSH 3.040 {uIU/mL} (Normal) Range: 0.450-4.500 9-Oxm-615404:25 VITAMIN B-12 (CYANOCOBALAMIN) Comments: PATIENT NOT FASTINGPERFORMED BY: [facility] Oxpwbx5240 [address] [facility] Hospitalblin [place] [id number] BY: LabCoSharon [place] [address] [facility] [id number] (78361) Vitamin B12 227 pg/mL (Normal) Range: 211-946 9-Uxp-042433:25 PSA (PROSTATE SPECIFIC Comments: PATIENT NOT FASTINGPERFORMED BY: CB [facility] Toebjw4846 [address] [facility] BranchDublin [place] [id number] BY: [facility] Gaojfflagw2835 [facility] [id number] ANTIGEN) (V76.44) Prostate Specific Ag, 2.0 ng/mL (Normal) Range: 0.0-4.0 Serum Comments: Dee ECLIA methodology. .According to the [place] U[employer] Association, Serum PSA shoulddecrease and remain at undetectable levels after radicalprostatectomy. The AUA defines biochemical recurrence as an initialPSA value 0.2 ng/mL or greater followed by a subsequent confirmatoryPSA value 0.2 ng/mL or greater.Values obtained with d ifferent assay methods or kits cannot be usedinterchangeably. Results cannot be interpreted as absolute evidenceof the presence or absence of malignant disease. 55-Rhr-180775:06 CALCIFIDIOL (51233) VIT D 25 Comments: PATIENT WAS FASTINGPERFORMED BY: [facility] Hwsmol3811 [facility] [id number] Vitamin D, 25-Hydroxy 42.4 ng/mL (Normal) Range: 30.0-100.0 Comments: Vitamin D deficiency has been defined by the [place] of[place]icine and an Endocrine Society practice guideline as alevel of serum 25-OH vitamin D less than 20 ng/mL (1,2).The Endocrine Society went on to further define vitamin Dinsufficiency as a level between 21 and 29 ng/mL (2).1. IOM ([place] of Medicine). 2010. Dietary reference intakes for calcium and D. [place]: The National Academies Press.2. Charles MF, Raissa NC, Nirmala ALBERT, et al. Evaluation, treatment, and prevention of vitamin D deficiency: an Endocrine Society clinical practice guideline. JCEM. 2010; 96(7):1911-30. 79-Ppb-775645:06 TSH (09837) Comments: PATIENT WAS FASTINGPERFORMED BY: [facility]6[address] [facility] [id number] TSH 3.460 {uIU/mL} (Normal) Range: 0.450-4.500 52-Ccv-577438:06 URINALYSIS, W/ MICRO (52250) Comments: PATIENT WAS FASTINGPERFORMED BY: [facility]6[address] [facility] [id number] Microscopic Examination See below: (Normal) Comments: Microscopic was indicated and was performed. Microscopic Examination MICRON (Normal) Comments: Microscopic follows if indicated. Nitrite, Urine Negative (Normal) Urobilinogen,Semi-Qn 0.2 mg/dL (Normal) Range: 0.2-1.0 Bilirubin Negative (Normal) Occult Blood Negative (Normal) Ketones Negative (Normal) Glucose Negative (Normal) Protein Negative (Normal) WBC Esterase Negative (Normal) Appearance Clear (Normal) Urine-Color Yellow (Normal) pH 5.0 (Normal) Range: 5.0-7.5 Specific [place] 1.020 (Normal) Range: 1.005-1.030 11-Nuv-605558:06 MICROALBUMIN: CREATININE RATIO Comments: PATIENT WAS FASTINGPERFORMED BY: [facility]6[address] [facility] [id number] (60096) AND (03092) Microalb/Creat Ratio <2.4 {mg/g_creat} (Normal) Range: 0.0-30.0 Microalbumin, Urine <3.0 ug/mL (Normal) Creatinine, Urine 127.3 mg/dL (Normal) 83-Ieu-104410:06 METABOLIC PANEL, COMPREHENSIVE Comments: PATIENT WAS FASTINGPERFORMED BY: [facility] [place] [address] [id number] (17500) ALT (SGPT) 15 [iU]/L (Normal) Range: 0-44 [...] Glucose, Serum 136 mg/dL (Abnormal) Range: 65-99 39-Ctc-096704:06 LIPID PANEL (43380) Comments: PATIENT WAS FASTINGPERFORMED BY: LabCoSaint Barnabas Behavioral Health CenterNuockt3144 [facility] [id number] LDL/HDL Ratio 1.5 {ratio_units} (Normal) Range: 0.0-3.6 Comments: LDL/HDL Ratio Men Women 1/2 Avg.Risk 1.0 1.5 Av g.Risk 3.6 3.2 2X Avg.Risk 6.2 5.0 3X Avg.Risk 8.0 6.1 LDL Cholesterol Calc 63 mg/dL (Normal) Range: 0-99 VLDL Cholesterol Ezequiel 25 mg/dL (Normal) Range: 5-40 HDL Cholesterol 42 mg/dL (Normal) Triglycerides 126 mg/dL (Normal) Range: 0-149 Cholesterol, Total 130 mg/dL (Normal) Range: 100-199 24-Mam-959459:06 CBC W/AUTO DIFF WBC (11836) Comments: PATIENT WAS FASTINGPERFORMED BY: GUICHO [facility] Ocxmcq1366 [facility] [id number] Immature Grans (Abs) 0.0 {x10E3/uL} (Normal) Range: [...] (Normal) Range: 3.4-10.8 :32 HgA1C , Office (35227) HgA1C , Office 7.3 % (Abnormal) Range: 4.6 - 7.1 :32 Blood Glucose , Office (36450) Blood Glucose , Office 185 (Normal) 6-Acj-240054:33 ALDOSTERONE (86037) Comments: PATIENT NOT FASTINGPERFORMED BY: [address] [id number] Aldosterone 3.8 ng/dL (Normal) Range: 0.0-30.0 Comments: This test was developed and its performance characteristicsdetermined by [employer]. It has not been cleared or approvedby the Food and Drug Administration. 4-Cqv-601774:33 RENIN (09869) Comments: PATIENT NOT FASTINGPERFORMED BY: [address] [id number] Renin Activity, Plasma 0.402 {ng/mL/hr} Range: 0.167-5.380 (Normal) Comments: This test was developed and its performance characteristicsdetermined by [employer]. It has not been cleared or approvedby the Food and Drug Administration. 26-Sep-20161:31 METANEPHRINES - URINE (74936) Comments: PATIENT NOT FASTINGPERFORMED BY: [employer] [id number] Metanephrine, U,24hr 238 {ug/24_hr} (Normal) Range: 45-290 Comments: (Hypertensive) >17 years 11 months: 35 - 460 Metanephrine, Ur 119 ug/L (Normal) Normetanephr.,U,24h 370 {ug/24_hr} (Normal) Range: 82-500 Comments: (Hypertensive) >17 years 11 months: 110 - 1050 Normetanephrine, Ur 185 ug/L (Normal) 26-Sep-20161:31 CATECHOLAMINES TOTAL, URINE Comments: PATIENT NOT FASTINGPERFORMED BY: [address] [id number] Information: START 09/25/2016@447AM (52624) Dopamine, Ur, 24hr 280 {ug/24_hr} (Normal) Range: 0-510 Dopamine, Urine 140 ug/L (Normal) Norepinephrine,U,24h 42 {ug/24_hr} (Normal) Range: 0-135 Norepinephrine, Ur 21 ug/L (Normal) Epinephrine, U, 24hr 4 {ug/24_hr} (Normal) Range: 0-20 Epinephrine, Urine 2 ug/L (Normal) :31 URINE VMA (69665) Comments: PATIENT NOT FASTINGPERFORMED BY: [address] [id number] VMA, Urine, 24hr 3.4 {mg/24_hr} (Normal) Range: 0.0-7.5 Comments: This test was developed and its performance characteristicsdetermined by [facility]. It has not been cleared or approvedby the Food and Drug Administration. VMA, Urine 1.7 mg/L (Normal) 17-Rlr-657899:05 Microscopic Examination Comments: PATIENT WAS FASTINGPERFORMED BY: [place] 3913770 [facility] [id number] Bacteria None seen (Normal) Mucus Threads Present (Normal) Epithelial Cells (non renal) None seen {/hpf} (Normal) Range: 0 - 10 RBC 0-2 {/hpf} (Normal) Range: 0 - 2 WBC 0-5 {/hpf} (Normal) Range: 0 - 5 :05 LIPID PANEL (17327) Comments: PATIENT WAS FASTINGPERFORMED BY: [facility]6[address] [facility] [id number] LDL/HDL Ratio 1.3 {ratio_units} (Normal) Range: 0.0-3.6 Comments: LDL/HDL Ratio Men Women 1/2 Avg.Risk 1.0 1.5 Av g.Risk 3.6 3.2 2X Avg.Risk 6.2 5.0 3X Avg.Risk 8.0 6.1 LDL Cholesterol Calc 61 mg/dL (Normal) Range: 0-99 VLDL Cholesterol Ezequiel 19 mg/dL (Normal) Range: 5-40 HDL Cholesterol 47 mg/dL (Normal) Triglycerides 94 mg/dL (Normal) Range: 0-149 Cholesterol, Total 127 mg/dL (Normal) Range: 100-199 66-Jta-234261:05 URINALYSIS, W/ MICRO (44881) Comments: PATIENT WAS FASTINGPERFORMED BY: [facility]6[address] [facility] [id number] Microscopic Examination See below: (Normal) Comments: Microscopic was indicated and was performed. Microscopic Examination MICRON (Normal) Comments: Microscopic follows if indicated. Nitrite, Urine Negative (Normal) Urobilinogen,Semi-Qn 0.2 mg/dL (Normal) Range: 0.2-1.0 Bilirubin Negative (Normal) Occult Blood Negative (Normal) Ketones Negative (Normal) Glucose Negative (Normal) Protein Negative (Normal) WBC Esterase Negative (Normal) Appearance Clear (Normal) Urine-Color Yellow (Normal) pH 5.5 (Normal) Range: 5.0-7.5 Specific [place] 1.024 (Normal) Range: 1.005-1.030 23-Arl-804476:05 MICROALBUMIN: CREATININE RATIO Comments: PATIENT WAS FASTINGPERFORMED BY: [facility] [id number] (45171) AND (28874) Microalb/Creat Ratio <1.7 {mg/g_creat} (Normal) Range: 0.0-30.0 Microalbumin, Urine <3.0 ug/mL (Normal) Creatinine, Urine 171.8 mg/dL (Normal) :05 METABOLIC PANEL, COMPREHENSIVE Comments: PATIENT WAS FASTINGPERFORMED BY: Rezdy[address] [facility] [id number] (66269) ALT (SGPT) 15 [iU]/L (Normal) Range: 0-44 [...] Glucose, Serum 117 mg/dL (Abnormal) Range: 65-99 15-Hwq-231012:05 CBC W/AUTO DIFF WBC (89915) Comments: PATIENT WAS FASTINGPERFORMED BY: LabCoSaint Barnabas Behavioral Health CenterUgnvef5291 [facility] [id number] Immature Grans (Abs) 0.0 {x10E3/uL} (Normal) Range: [...] 4.9 {x10E3/uL} (Normal) Range: 3.4-10.8 :05 TSH (70159) Comments: PATIENT WAS FASTINGPERFORMED BY: [facility] Lkpfwr0643 [address]ado RoadDublin [place] [id number] TSH 3.460 {uIU/mL} (Normal) Range: 0.450-4.500 :05 T4, FREE (THYROXINE) (16672) Comments: PATIENT WAS FASTINGPERFORMED BY: [facility] Pzslps4725 Rosado RoadDublin [place] [id number] T4,Free(Direct) 1.34 ng/dL (Normal) Range: 0.82-1.77 :05 T3, FREE (TRIDOTHYRONINE) (03073) Comments: PATIENT WAS FASTINGPERFORMED BY: [facility] Xfnloa[address] [facility] BranchD[place] [id number] Triiodothyronine,Free,Serum 3.0 pg/mL (Normal) Range: 2.0-4.4 :05 CALCIFIDIOL (57250) VIT D 25 Comments: PATIENT WAS FASTINGPERFORMED BY: [facility] Kmgwrn5941 [address]ado RoadDublin [place] [id number] Vitamin D, 25-Hydroxy 46.6 ng/mL (Normal) Range: 30.0-100.0 Comments: Vitamin D deficiency has been defined by the [place] ofMedicine and an Endocrine Society practice guideline as alevel of serum 25-OH vitamin D less than 20 ng/mL (1,2).The Endocrine Society went on to further define vitamin Dinsufficiency as a level between 21 and 29 ng/mL (2).1. IOM ([place] of Medicine). 2010. Dietary reference intakes for calcium and D. [place]: The National Academies Press.2. Charles SCHILLING, Raissa OCONNELL, Nirmala ALBERT, et al. Evaluation, treatment, and prevention of vitamin D deficiency: an Endocrine Society clinical practice guideline. JCEM. 2010; 96(7):1911-30. 37-Lbh-79006:42 HgA1C , Office (73857) HgA1C , Office 6.6 % (Normal) Range: 4.6 - 7.1 :42 Blood Glucose , Office (21295) Blood Glucose , Office 117 (Normal) :59 HgA1C , Office (78234) HgA1C , Office 6.8 % (Normal) Range: 4.6 - 7.1 :59 Blood Glucose , Office (96985) Blood Glucose , Office 237 (Normal) :52 Rapid Flu (00833 x 2) Influenza A Ag neg (Normal) :19 HgA1C , Office (53670) HgA1C , Office 6.6 % (Normal) Range: 4.6 - 7.1 :19 Blood Glucose , Office (97343) Blood Glucose , Office 171 (Normal) :43 Microscopic Examination Comments: PATIENT WAS FASTINGPERFORMED BY: [facility] [id number] Bacteria Few (Normal) Mucus Threads Present (Normal) Epithelial Cells (non renal) 0-10 {/hpf} (Normal) Range: 0 - 10 RBC 0-2 {/hpf} (Normal) Range: 0 - 2 WBC 0-5 {/hpf} (Normal) Range: 0 - 5 :53 Serum Creatinine AND GFR Comments: [facility] Rzztwtsqzh[address] [place], [place], [address] EST GFR - AA 83 mL/min (Normal) Comments: GFR Calc EST GFR 69 mL/min (Normal) Comments: Non- GFR Calc CREAT,SERUM 1.12 mg/dL (Normal) Range: 0.70-1.30 Comments: The validity of the calculated GFR AND GFRAA in patients over70 years has not been determined. Clinical correlation isessential. :43 CALCIFIDIOL (68699) VIT D 25 Comments: PATIENT WAS FASTINGPERFORMED BY: [employer] [facility] [id number] Vitamin D, 25-Hydroxy 55.4 ng/mL (Normal) Range: 30.0-100.0 Comments: Vitamin D deficiency has been defined by the [place] ofMedicine and an Endocrine Society practice guideline as alevel of serum 25-OH vitamin D less than 20 ng/mL (1,2).The Endocrine Society went on to further define vitamin Dinsufficiency as a level between 21 and 29 ng/mL (2).1. IOM ([place] of Medicine). 2010. Dietary reference intakes for calcium and D. [place]: The National Academies Press.2. Charles MF, Raissa OCONNELL, Nirmala ALBERT, et al. Evaluation, treatment, and prevention of vitamin D deficiency: an Endocrine Society clinical practice guideline. JCEM. 2010; 96(7):1911-30. :43 URINALYSIS, W/ MICRO (86153) Comments: PATIENT WAS FASTINGPERFORMED BY: [place] [id number] Microscopic Examination See below: (Normal) Comments: Microscopic was indicated and was performed. Microscopic Examination MICRON (Normal) Comments: Microscopic follows if indicated. Nitrite, Urine Negative (Normal) Urobilinogen,Semi-Qn 0.2 mg/dL (Normal) Range: 0.2-1.0 Bilirubin Negative (Normal) Occult Blood Negative (Normal) Ketones Negative (Normal) Glucose Negative (Normal) Protein Negative (Normal) WBC Esterase Negative (Normal) Appearance Clear (Normal) Urine-Color Yellow (Normal) pH 5.5 (Normal) Range: 5.0-7.5 Specific [place] 1.022 (Normal) Range: 1.005-1.030 :43 MICROALBUMIN: CREATININE RATIO Comments: PATIENT WAS FASTINGPERFORMED BY: [place] [id number] (42800) AND (76892) Microalb/Creat Ratio <2.4 {mg/g_creat} (Normal) Range: 0.0-30.0 Microalbumin, Urine <3.0 ug/mL (Normal) Creatinine, Urine 122.5 mg/dL (Normal) :43 METABOLIC PANEL, COMPREHENSIVE Comments: PATIENT WAS FASTINGPERFORMED BY: [employer] Networkslin6370 [facility] [id number] (62622) ALT (SGPT) 12 [iU]/L (Normal) Range: 0-44 [...] Glucose, Serum 120 mg/dL (Abnormal) Range: 65-99 8-Unr-546003:43 TSH (79239) Comments: PATIENT WAS FASTINGPERFORMED BY: LabCoSaint Barnabas Behavioral Health CenterYysmgq6509 [facility] [id number] TSH 4.010 {uIU/mL} (Normal) Range: 0.450-4.500 2-Rcz-960482:43 LIPID PANEL (84900) Comments: PATIENT WAS FASTINGPERFORMED BY: LabCoSaint Barnabas Behavioral Health CenterVpokgg7515 [facility] [id number] LDL/HDL Ratio 1.2 {ratio_units} (Normal) Range: 0.0-3.6 [...] Cholesterol, Total 117 mg/dL (Normal) Range: 100-199 9-Xzt-963387:43 CBC W/AUTO DIFF WBC (69255) Comments: PATIENT WAS FASTINGPERFORMED BY: LabCoSaint Barnabas Behavioral Health CenterIavpju8447 [facility] [id number] Immature Grans (Abs) 0.0 {x10E3/uL} (Normal) Range: [...] (Normal) Range: 3.4-10.8 :27 HgA1C , Office (32131) HgA1C , Office 6.6 % (Normal) Range: 4.6 - 7.1 :27 Blood Glucose , Office (22642) Blood Glucose , Office 168 (Normal) :08 Microscopic Examination Comments: PATIENT WAS FASTINGPERFORMED BY: [employer] [facility] [id number] Bacteria None seen (Normal) Mucus Threads Present (Normal) Epithelial Cells (non renal) None seen {/hpf} (Normal) Range: 0 - 10 RBC None seen {/hpf} (Normal) Range: 0 - 2 WBC 0-5 {/hpf} (Normal) Range: 0 - 5 :08 CALCIFIDIOL (83481) VIT D 25 Comments: PATIENT WAS FASTINGPERFORMED BY: Rezdy[address] [facility] [id number] Vitamin D, 25-Hydroxy 62.4 ng/mL (Normal) Range: 30.0-100.0 Comments: Vitamin D deficiency has been defined by the [place] of[place]icine and an Endocrine Society practice guideline as alevel of serum 25-OH vitamin D less than 20 ng/mL (1,2).The Endocrine Society went on to further define vitamin Dinsufficiency as a level between 21 and 29 ng/mL (2).1. IOM ([place] of Medicine). 2010. Dietary reference intakes for calcium and D. [place]: The National Academies Press.2. Charles MF, Raissa [place], Nirmala ALBERT, et al. Evaluation, treatment, and prevention of vitamin D deficiency: an Endocrine Society clinical practice guideline. JCEM. 2010; 96(7):1911-30. :08 URINALYSIS, W/ MICRO (71116) Comments: PATIENT WAS FASTINGPERFORMED BY: [facility]6370 [facility] [id number] Microscopic Examination See below: (Normal) Comments: Microscopic was indicated and was performed. Microscopic Examination MICRON (Normal) Comments: Microscopic follows if indicated. Nitrite, Urine Negative (Normal) Urobilinogen,Semi-Qn 0.2 mg/dL (Normal) Range: 0.2-1.0 Bilirubin Negative (Normal) Occult Blood Negative (Normal) Ketones Negative (Normal) Glucose Negative (Normal) Protein Negative (Normal) WBC Esterase Negative (Normal) Appearance Clear (Normal) Urine-Color Yellow (Normal) pH 6.0 (Normal) Range: 5.0-7.5 Specific [place] 1.022 (Normal) Range: 1.005-1.030 35-Ygo-202621:08 MICROALBUMIN: CREATININE RATIO Comments: PATIENT WAS FASTINGPERFORMED BY: [place] 3913770 [facility] [id number] (11383) AND (40346) Microalb/Creat Ratio <1.8 {mg/g_creat} (Normal) Range: 0.0-30.0 Microalbumin, Urine <3.0 ug/mL (Normal) Creatinine, Urine 164.4 mg/dL (Normal) :08 METABOLIC PANEL, COMPREHENSIVE Comments: PATIENT WAS FASTINGPERFORMED BY: [facility]6370 [facility] [id number] (49227) ALT (SGPT) 16 [iU]/L (Normal) Range: 0-44 [...] Glucose, Serum 108 mg/dL (Abnormal) Range: 65-99 50-Ear-202192:08 LIPID PANEL (34447) Comments: PATIENT WAS FASTINGPERFORMED BY: Rezdy70 [facility] [id number] LDL/HDL Ratio 1.4 {ratio_units} (Normal) Range: 0.0-3.6 [...] Cholesterol, Total 124 mg/dL (Normal) Range: 100-199 23-Nyn-759512:08 CBC W/AUTO DIFF WBC Comments: PATIENT WAS FASTINGPERFORMED BY: [employer] Xasduk2005 [facility] [id number] Information: [id number] (15073) Immature Grans (Abs) 0.0 {x10E3/uL} (Normal) Range: [...] 5.5 {x10E3/uL} (Normal) Range: 3.4-10.8 :08 TSH (48696) Comments: PATIENT WAS FASTINGPERFORMED BY: [employer] Aaycbj6958 [facility] [id number] TSH 4.000 {uIU/mL} (Normal) Range: 0.450-4.500 :03 HgA1C , Office (12363) HgA1C , Office 6.2 % (Normal) Range: 4.6 - 7.1 :03 Blood Glucose , Office (17299) Blood Glucose , Office 102 (Normal) 6-Gfc-003258:49 Throat Culture (21182) Comments: PATIENT NOT FASTINGPERFORMED BY: LabPinocularSaint Barnabas Behavioral Health CenterDixdgu5223 [facility] [id number] Information: SRC:THRT [id number] Result 1 RRF (Normal) Comments: Routine respiratory alfredo Upper Respiratory Culture Final report (Normal) 7-Wds-724596:02 Rapid Strep Test, Office (41557) Rapid Strep Test, Office Negative (Normal) :48 Influenza A&B Viral Comments: PATIENT NOT FASTINGPERFORMED BY: [employer] Fznznf2521 [facility] [id number] Information: SRC:NOS [id number] Culture (59523) Viral Culture,Rapid,Influenza FLUABN (Normal) Comments: Negative:No Influenza A or B detected. 3-Rcw-908824:26 Rapid Flu (39059 x 2) Influenza A Ag negative (Normal) :30 HgA1C , Office (17445) HgA1C , Office 7.3 % (Abnormal) Range: 4.6 - 7.1 :30 Blood Glucose , Office (61686) Blood Glucose , Office 191 (Normal) :52 Microscopic Examination Comments: PATIENT WAS FASTINGPERFORMED BY: [facility] Lwbwdu2233 [facility] [id number] Bacteria None seen (Normal) Mucus Threads Present (Normal) Epithelial Cells (non renal) 0-10 {/hpf} (Normal) Range: 0 - 10 RBC 0-2 {/hpf} (Normal) Range: 0 - 2 WBC 0-5 {/hpf} (Normal) Range: 0 - 5 :52 CALCIFIDIOL (32311) VIT D 25 Comments: PATIENT WAS FASTINGPERFORMED BY: [facility] WirelessS[facility] Xqmmno9226 [facility] [id number] Vitamin D, 25-Hydroxy 44.9 ng/mL (Normal) Range: 30.0-100.0 Comments: Vitamin D deficiency has been defined by the [place] ofMedicine and an Endocrine Society practice guideline as alevel of serum 25-OH vitamin D less than 20 ng/mL (1,2).The Endocrine Society went on to further define vitamin Dinsufficiency as a level between 21 and 29 ng/mL (2).1. IOM ([place] of Medicine). 2010. Dietary reference intakes for calcium and D. [place]: The National Academies Press.2. Charles SCHILLING, Raissa [place], Nirmala ALBERT, et al. Evaluation, treatment, and prevention of vitamin D deficiency: an Endocrine Society clinical practice guideline. JCEM. 2010; 96(7):1911-30. :52 LIPID PANEL (50898) Comments: PATIENT WAS FASTINGPERFORMED BY: [employer] Rdwzme5803 [facility] [id number] LDL/HDL Ratio 2.4 {ratio_units} (Normal) Range: 0.0-3.6 [...] 196 mg/dL (Normal) Range: 100-199 :52 TSH (79924) Comments: PATIENT WAS FASTINGPERFORMED BY: [employer] Ydsjgj7315 [facility] [id number] TSH 4.480 {uIU/mL} (Normal) Range: 0.450-4.500 :52 URINALYSIS, W/ MICRO (98805) Comments: PATIENT WAS FASTINGPERFORMED BY: PhotodigmSaint Barnabas Behavioral Health CenterJvaywe6279 [facility] [id number] Microscopic Examination See below: (Normal) Comments: Microscopic was indicated and was performed. Microscopic Examination MICRON (Normal) Comments: Microscopic follows if indicated. Nitrite, Urine Negative (Normal) Urobilinogen,Semi-Qn 0.2 mg/dL (Normal) Range: 0.2-1.0 Bilirubin Negative (Normal) Occult Blood Negative (Normal) Ketones Negative (Normal) Glucose Negative (Normal) Protein Negative (Normal) WBC Esterase Negative (Normal) Appearance Clear (Normal) Urine-Color Yellow (Normal) pH 6.0 (Normal) Range: 5.0-7.5 Specific [place] 1.024 (Normal) Range: 1.005-1.030 :52 MICROALBUMIN: CREATININE RATIO Comments: PATIENT WAS FASTINGPERFORMED BY: PhotodigmSaint Barnabas Behavioral Health CenterQzmfpv7292 [facility] [id number] (31761) AND (44720) Microalb/Creat Ratio <2.2 {mg/g_creat} (Normal) Range: 0.0-30.0 Microalbumin, Urine <3.0 ug/mL (Normal) Range: 0.0-17.0 Creatinine, Urine 135.9 mg/dL (Normal) Range: 22.0-328.0 :52 METABOLIC PANEL, COMPREHENSIVE Comments: PATIENT WAS FASTINGPERFORMED BY: PhotodigmSaint Barnabas Behavioral Health CenterLdjdam7640 [facility] [id number]; will review at 02/21 appt (75400) ALT (SGPT) 13 [iU]/L (Normal) Range: 0-44 [...] WBC Comments: PATIENT WAS FASTINGPERFORMED BY: LabCoSaint Barnabas Behavioral Health CenterYqknso8261 [facility] [id number] Information: [id number] (48856) Immature Grans (Abs) 0.0 {x10E3/uL} (Normal) Range: [...] (Normal) Range: 3.4-10.8 :56 HgA1C , Office (09520) HgA1C , Office 5.9 % (Normal) Range: 4.6 - 7.1 :56 Blood Glucose , Office (80076) Blood Glucose , Office 103 (Normal) :35 HgA1C , Office (06659) HgA1C , Office 6.0 % (Normal) Range: 4.6 - 7.1 :34 Blood Glucose , Office (98816) Blood Glucose , Office 135 (Normal) :45 Potassium Comments: Test performed at:[facility] Gzwqigbuyk[address] [place], [place] [address] K 4.3 mmol/L (Normal) Range: 3.5-5.1 :54 Comp. Metabolic Panel (14) Comments: PATIENT WAS FASTINGPERFORMED BY: [facility] Opzmrr3445 [facility] [id number] Information: [id number] ALT (SGPT) 11 [iU]/L (Normal) Range: 0-44 [...] Glucose, Serum 117 mg/dL (Abnormal) Range: 65-99 29-Bje-63194:54 Lipid Panel With LDL/HDL Comments: PATIENT WAS FASTINGPERFORMED BY: [facility] [id number] Ratio LDL/HDL Ratio 2.1 {ratio_units} Range: 0.0-3.6 [...] 2.860 {uIU/mL} Comments: PATIENT WAS FASTINGPERFORMED BY: [employer] [facility] [id number] 9:54 (Normal) Range: 0.450-4.500 02-Aug-2014 Vitamin D, 25-Hydroxy 61.9 ng/mL (Normal) Comments: PATIENT WAS FASTINGPERFORMED BY: [employer] Shqlsh3600 [facility] [id number] 9:54 Range: 30.0-100.0 Comments: Vitamin D deficiency has been defined by the [place] of[place]icine and an Endocrine Society practice guideline as alevel of serum 25-OH vitamin D less than 20 ng/mL (1,2).The Endocrine Society went on to further define vitamin Dinsufficiency as a level between 21 and 29 ng/mL (2).1. IOM ([place] of Medicine). 2010. Dietary reference intakes for calcium and D. [place]: The National Academies Press.2. Raissa Harrison, Nirmala ALBERT, et al. Evaluation, treatment, and prevention of vitamin D deficiency: an Endocrine Society clinical practice guideline. JCEM. 2010; 96(7):1911-30. :13 HgA1C , Office (76326) HgA1C , Office 6.8 % (Normal) Range: 4.6 - 7.1 :13 Blood Glucose , Office (79441) Blood Glucose , Office 218 (Normal) :24 Microscopic Examination Comments: PATIENT WAS FASTINGPERFORMED BY: [facility] [place] [id number] Bacteria None seen (Normal) Mucus Threads Present (Normal) Epithelial Cells (non renal) None seen {/hpf} (Normal) Range: 0 - 10 RBC 0-2 {/hpf} (Normal) Range: 0 - 2 WBC 0-5 {/hpf} (Normal) Range: 0 - 5 :24 Vitamin D Hydroxy (99871) Comments: PATIENT WAS FASTINGPERFORMED BY: [employer]63bMobilized [place] [id number] Vitamin D, 25-Hydroxy 35.7 ng/mL (Normal) Range: 30.0-100.0 Comments: Vitamin D deficiency has been defined by the [place] ofOhio[facility] Hospitalcine and an Endocrine Society practice guideline as alevel of serum 25-OH vitamin D less than 20 ng/mL (1,2).The Endocrine Society went on to further define vitamin Dinsufficiency as a level between 21 and 29 ng/mL (2).1. IOM ([place] of Medicine). 2010. Dietary reference intakes for calcium and D. [place]: The National Academies Press.2. Raissa Harrison, Nirmala ALBERT, et al. Evaluation, treatment, and prevention of vitamin D deficiency: an Endocrine Society clinical practice guideline. JCEM. 2010; 96(7):1911-30. :24 URINALYSIS, W/ MICRO (55253) Comments: PATIENT WAS FASTINGPERFORMED BY: [employer] PhotodigmSaint Barnabas Behavioral Health CenterBobshd2214 [facility] [id number] Microscopic Examination See below: (Normal) Comments: Microscopic was indicated and was performed. Microscopic Examination MICRON (Normal) Comments: Microscopic follows if indicated. Nitrite, Urine Negative (Normal) Urobilinogen,Semi-Qn 0.2 mg/dL (Normal) Range: 0.0-1.9 Bilirubin Negative (Normal) Occult Blood Negative (Normal) Ketones Negative (Normal) Glucose Negative (Normal) Protein Negative (Normal) WBC Esterase Negative (Normal) Appearance Clear (Normal) Urine-Color Yellow (Normal) pH 6.0 (Normal) Range: 5.0-7.5 Specific [place] 1.025 (Normal) Range: 1.005-1.030 :24 TSH (60481) Comments: PATIENT WAS FASTINGPERFORMED BY: PhotodigmSaint Barnabas Behavioral Health CenterEgojrk6481 [facility] [id number] TSH 2.740 {uIU/mL} (Normal) Range: 0.450-4.500 88-Ifp-441278:24 MICROALBUMIN: CREATININE RATIO Comments: PATIENT WAS FASTINGPERFORMED BY: PhotodigmSaint Barnabas Behavioral Health CenterAsaioi1023 [facility] [id number] (21978) AND (59827) Microalb/Creat Ratio <1.5 {mg/g_creat} (Normal) Range: 0.0-30.0 Microalbumin, Urine <3.0 ug/mL (Normal) Range: 0.0-17.0 Creatinine, Urine 205.5 mg/dL (Normal) Range: 22.0-328.0 70-Nla-501602:24 METABOLIC PANEL, COMPREHENSIVE Comments: PATIENT WAS FASTINGPERFORMED BY: Spotwave WirelessDavid Ville 4406970 [facility] [id number] (40692) ALT (SGPT) 13 [iU]/L (Normal) Range: 0-44 [...] Glucose, Serum 138 mg/dL (Abnormal) Range: 65-99 11-Spp-741841:24 LIPID PANEL (63333) Comments: PATIENT WAS FASTINGPERFORMED BY: LabCoSaint Barnabas Behavioral Health CenterDavjdu6282 [facility] [id number] LDL/HDL Ratio 3.2 {ratio_units} (Normal) Range: 0.0-3.6 [...] Cholesterol, Total 221 mg/dL (Abnormal) Range: 100-199 38-Unf-994199:24 CBC W/AUTO DIFF WBC Comments: PATIENT WAS FASTINGPERFORMED BY: LabCoSaint Barnabas Behavioral Health CenterPgcdiu1692 [facility] [id number] Information: [id number] (07468) Immature Grans (Abs) 0.0 {x10E3/uL} (Normal) Range: [...] 4.14-5.80 WBC 5.0 {x10E3/uL} (Normal) Range: 3.4-10.8 59-Pqg-288516:00 Fecal Occult Blood , Office (34827) Fecal Occult Blood , Office (Inhouse) negative (Normal) 07-Tam-851038:57 PSA (PROSTATE SPECIFIC Comments: PATIENT NOT FASTINGPERFORMED BY: LabCoSaint Barnabas Behavior[facility] Health CenterXtigxv5049 [facility] [id number] Information: [id number] ANTIGEN) (V76.44) Prostate Specific Ag, 1.5 ng/mL (Normal) Range: 0.0-4.0 Serum Comments: Dee ECLIA methodology. .According to the [place] Urological Association, Serum PSA shoulddecrease and remain [...] of malignant disease. :17 HgA1C , Office (72345) HgA1C , Office 7.0 % (Normal) Range: 4.6 - 7.1 :17 Blood Glucose , Office (53140) Blood Glucose , Office 118 (Normal) :50 HgA1C , Office (56630) HgA1C , Office 7.6 % (Abnormal) Range: 4.6 - 7.1 :50 Blood Glucose , Office (62850) Blood Glucose , Office 142 (Normal) 7-Xtj-265275:44 Microscopic Examination Comments: PATIENT WAS FASTINGPERFORMED BY: [facility] [id number] Bacteria None seen (Normal) Mucus Threads Present (Normal) Epithelial Cells (non renal) None seen {/hpf} (Normal) Range: 0 - 10 RBC 0-2 {/hpf} (Normal) Range: 0 - 2 WBC 0-5 {/hpf} (Normal) Range: 0 - 5 :32 URINALYSIS, W/ MICRO (01618) Comments: PATIENT WAS FASTINGPERFORMED BY: YippeeO [employer]6370 [facility] [id number] Microscopic Examination See below: (Normal) Comments: Microscopic was indicated and was performed. Microscopic Examination MICRON (Normal) Comments: Microscopic follows if indicated. Nitrite, Urine Negative (Normal) Urobilinogen,Semi-Qn 0.2 mg/dL (Normal) Range: 0.0-1.9 Bilirubin Negative (Normal) Ketones Negative (Normal) Occult Blood Negative (Normal) Glucose Trace (Abnormal) Protein Negative (Normal) WBC Esterase Negative (Normal) Appearance Clear (Normal) Urine-Color Yellow (Normal) pH 6.0 (Normal) Range: 5.0-7.5 Specific [place] 1.024 (Normal) Range: 1.005-1.030 :32 MICROALBUMIN: CREATININE RATIO Comments: PATIENT WAS FASTINGPERFORMED BY: [employer] Zzvvza8916 [facility] [id number] (67180) AND (06379) Microalb/Creat Ratio 1.3 {mg/g_creat} (Normal) Range: 0.0-30.0 Creatinine, Urine 188.3 mg/dL (Normal) Range: 22.0-328.0 Microalbumin, Urine 2.4 ug/mL (Normal) Range: 0.0-17.0 :32 TSH (05445) Comments: PATIENT WAS FASTINGPERFORMED BY: [employer] Cxxuvy1067 [facility] [id number] TSH 3.250 {uIU/mL} (Normal) Range: 0.450-4.500 3-Wwl-658726:32 METABOLIC PANEL, COMPREHENSIVE Comments: PATIENT WAS FASTINGPERFORMED BY: [employer] [facility] [id number]; will review at 10/08 appt (79859) ALT (SGPT) 22 [iU]/L (Normal) Range: 0-44 [...] Glucose, Serum 152 mg/dL (Abnormal) Range: 65-99 :32 LIPID PANEL (98069) Comments: PATIENT WAS FASTINGPERFORMED BY: Flynn [facility] [id number] LDL/HDL Ratio 2.0 {ratio_units} (Normal) Range: 0.0-3.6 [...] MANUAL DIFF Comments: PATIENT WAS FASTINGPERFORMED BY: [employer] [facility] [id number] Information: [id number] (41401) Immature Grans (Abs) 0.0 {x10E3/uL} (Normal) Range: [...] (Normal) Range: 3.4-10.8 :37 HgA1C , Office (14314) HgA1C , Office 7.1 % (Normal) Range: 4.6 - 7.1 :37 Blood Glucose , Office (28145) Blood Glucose , Office 142 (Normal) 94-Mqg-098030:39 Microscopic Examination Comments: PATIENT WAS FASTINGPERFORMED BY: [employer] [place] [id number] Bacteria None seen (Normal) Mucus Threads Present (Normal) Epithelial Cells (non renal) None seen {/hpf} (Normal) Range: 0 - 10 RBC None seen {/hpf} (Normal) Range: 0 - 3 WBC 0-5 {/hpf} (Normal) Range: 0 - 5 :13 Vitamin D Hydroxy (67408) Comments: PATIENT WAS FASTINGPERFORMED BY: [employer] [place] [id number] Vitamin D, 25-Hydroxy 35.9 ng/mL (Normal) Range: 30.0-100.0 Comments: Vitamin D deficiency has been defined by the [place] ofMedicine and an Endocrine Society practice guideline as alevel of serum 25-OH vitamin D less than 20 ng/mL (1,2).The Endocrine Society went on to further define vitamin Dinsufficiency as a level between 21 and 29 ng/mL (2).1. IOM ([place] of Medicine). 2010. Dietary reference intakes for calcium and D. [place]: The National Academies Press.2. Charles MF, Raissa OCONNELL, Nirmala ALBERT, et al. Evaluation, treatment, and prevention of vitamin D deficiency: an Endocrine Society clinical practice guideline. JCEM. 2010; 96(7):1911-30. :13 TSH (52087) Comments: PATIENT WAS FASTINGPERFORMED BY: [employer]6370 [facility] [id number] TSH 4.190 {uIU/mL} (Normal) Range: 0.450-4.500 :13 URINALYSIS, W/ MICRO (61080) Comments: PATIENT WAS FASTINGPERFORMED BY: [employer] [facility] [id number] Microscopic Examination MICRON (Normal) Comments: Microscopic follows if indicated. Microscopic Examination See below: (Normal) Nitrite, Urine Negative (Normal) Urobilinogen,Semi-Qn 0.2 mg/dL (Normal) Range: 0.0-1.9 Bilirubin Negative (Normal) Occult Blood Negative (Normal) Ketones Negative (Normal) Glucose Negative (Normal) Protein Negative (Normal) Appearance Clear (Normal) WBC Esterase Negative (Normal) Urine-Color Yellow (Normal) pH 7.0 (Normal) Range: 5.0-7.5 Specific [place] 1.023 (Normal) Range: 1.005-1.030 :13 MICROALBUMIN: CREATININE RATIO Comments: PATIENT WAS FASTINGPERFORMED BY: [facility] Jlgtie8493 BankerBay TechnologiesAffinity Health Partners [id number] (24020) AND (41691) Microalb/Creat Ratio 1.4 {mg/g_creat} (Normal) Range: 0.0-30.0 Creatinine, Urine 177.1 mg/dL (Normal) Range: 22.0-328.0 Microalbumin, Urine 2.5 ug/mL (Normal) Range: 0.0-17.0 :13 METABOLIC PANEL, COMPREHENSIVE Comments: PATIENT WAS FASTINGPERFORMED BY: ithinksport70 [facility] [id number] (68546) ALT (SGPT) 17 [iU]/L (Normal) Range: 0-44 [...] mg/dL (Abnormal) Range: 65-99 :13 LIPID PANEL (44198) Comments: PATIENT WAS FASTINGPERFORMED BY: [employer]6370 [place] [facility] [id number] LDL/HDL Ratio 1.8 {ratio_units} (Normal) Range: 0.0-3.6 LDL Cholesterol Calc 86 mg/dL (Normal) Range: 0-99 VLDL Cholesterol Ezequiel 18 mg/dL (Normal) Range: 5-40 HDL Cholesterol 48 mg/dL (Normal) Comments: According to ATP-III Guidelines, HDL-C >59 mg/dL is considered anegative risk factor for CHD. Triglycerides 92 mg/dL (Normal) Range: 0-149 Cholesterol, Total 152 mg/dL (Normal) Range: 100-199 58-Wnw-56063:13 CBC WITH MANUAL DIFF Comments: PATIENT WAS FASTINGPERFORMED BY: LabCoSaint Barnabas Behavioral Health CenterSxnapc5402 [facility] [id number] Information: [id number] (60967) Immature Grans (Abs) 0.0 {x10E3/uL} (Normal) Range: [...] (Normal) Range: 3.4-10.8 :31 HgA1C , Office (54475) HgA1C , Office 6.7 % (Normal) Range: 4.6 - 7.1 :31 Blood Glucose , Office (89265) Blood Glucose , Office 141 (Normal) :55 HgA1C , Office (21803) HgA1C , Office 6.4 % (Normal) Range: 4.6 - 7.1 :55 Blood Glucose , Office (37872) Blood Glucose , Office 116 (Normal) :33 Microscopic Examination Comments: PATIENT WAS FASTINGPERFORMED BY: [facility]ZenAff[facility] [id number] Bacteria None seen (Normal) Mucus Threads Present (Normal) Epithelial Cells (non renal) None seen {/hpf} (Normal) Range: 0 - 10 RBC 0-3 {/hpf} (Normal) Range: 0 - 3 WBC 0-5 {/hpf} (Normal) Range: 0 - 5 :33 PSA (PROSTATE SPECIFIC Comments: PATIENT WAS FASTINGPERFORMED BY: [facility]energy[facility] [id number] ANTIGEN) (V76.44) Prostate Specific Ag, 1.5 ng/mL (Normal) Range: 0.0-4.0 Serum Comments: [employer] ECLIA methodology. .According to the [place] Urological Association, Serum PSA shoulddecrease and remain at undetectable levels after radicalprostatectomy. The AUA defines biochemical recurrence as an initialPSA value 0.2 ng/mL or greater followed by a subsequent confirmatoryPSA value 0.2 ng/mL or greater.Values obtained with d ifferent assay methods or kits cannot be usedinterchangeably. Results cannot be interpreted as absolute evidenceof the presence or absence of malignant disease. :33 TSH (64099) Comments: PATIENT WAS FASTINGPERFORMED BY: [employer] [facility] [id number] TSH 2.770 {uIU/mL} (Normal) Range: 0.450-4.500 62-Ybo-088182:33 URINALYSIS, W/ MICRO (97773) Comments: PATIENT WAS FASTINGPERFORMED BY: [facility]6370 [facility] [id number] Microscopic Examination See below: (Normal) Microscopic Examination MICRON (Normal) Comments: Microscopic follows if indicated. Nitrite, Urine Negative (Normal) Urobilinogen,Semi-Qn 0.2 mg/dL (Normal) Range: 0.0-1.9 Bilirubin Negative (Normal) Occult Blood Negative (Normal) Ketones Negative (Normal) Glucose Negative (Normal) Protein Negative (Normal) WBC Esterase Negative (Normal) Appearance Clear (Normal) Urine-Color Yellow (Normal) pH 6.0 (Normal) Range: 5.0-7.5 Specific [place] 1.026 (Normal) Range: 1.005-1.030 28-Jvh-894255:33 MICROALBUMIN: CREATININE RATIO Comments: PATIENT WAS FASTINGPERFORMED BY: [facility]6370 [facility] [id number] (93233) AND (11161) Microalb/Creat Ratio 1.8 {mg/g_creat} (Normal) Range: 0.0-30.0 Microalbumin, Urine 3.6 ug/mL (Normal) Range: 0.0-17.0 Creatinine, Urine 203.4 mg/dL (Normal) Range: 22.0-328.0 29-Znm-715509:33 METABOLIC PANEL, COMPREHENSIVE Comments: PATIENT WAS FASTINGPERFORMED BY: [facility]6370 [facility] [id number] (04488) ALT (SGPT) 16 [iU]/L (Normal) Range: 0-44 [...] Glucose, Serum 114 mg/dL (Abnormal) Range: 65-99 40-Uzb-780822:33 LIPID PANEL (34921) Comments: PATIENT WAS FASTINGPERFORMED BY: Flynn [facility] [id number] LDL/HDL Ratio 1.3 {ratio_units} (Normal) Range: 0.0-3.6 LDL Cholesterol Calc 63 mg/dL (Normal) Range: 0-99 VLDL Cholesterol Ezequiel 25 mg/dL (Normal) Range: 5-40 HDL Cholesterol 47 mg/dL (Normal) Comments: According to ATP-III Guidelines, HDL-C >59 mg/dL is considered anegative risk factor for CHD. Triglycerides 123 mg/dL (Normal) Range: 0-149 Cholesterol, Total 135 mg/dL (Normal) Range: 100-199 99-Ttz-371561:33 CBC WITH MANUAL DIFF Comments: PATIENT WAS FASTINGPERFORMED BY: [facility] Uglvnu2736 [facility] [id number] Information: [id number] (67144) Immature Grans (Abs) 0.0 {x10E3/uL} (Normal) Range: [...] (Normal) Range: 4.0-10.5 :22 HgA1C , Office (45849) HgA1C , Office 6.3 % (Normal) Range: 4.6 - 7.1 :22 Blood Glucose , Office (64587) Blood Glucose , Office 109 (Normal) :49 ALDOS 9.3 ng/dL (Normal) Range: 0.0-30.0 :49 CATU [id number] 674 Range: 0-510 {ug/24_hr} Comments: TESTING PERFORMED AT [facility]. ORIGINAL REPORT ONFILE IN LAB CONTAINS [...] metanephrines and plasma catecolamines. TESTING PERFORMED AT [facility]. ORIGINAL REPORT ONFILE IN LAB CONTAINS ADDITIONAL TEST SITE INFORMATION. a y - 2 0 1 3 9 : 4 9 2 ROLANDO 1.86 Comments: Adult Normal SaltIntake:Upright 1.31 - 3.95Supine 0.15 - 2.33.Salt Excretion(Na mEq/24 hr):Na= 0 - 30 8.82 - 23.86Na= 30 - 75 4.09 - 7.73Na= 75 - 150 1.44 - 2.80Na= 0 {ng/mL/hr} >150 0.39 - 1.31Performed at: [facility] - [facility] [address] [id number] Director: Bruno Williamson MD, Phone: [phone] - (Normal) M a y - 2 0 1 3 9 : 4 9 02-Qkv-30503:49 VMA tVMA24 4.6 {mg/24_hr} (Normal) Range: 0.0-7.5 tVMA 2.2 mg/L (Normal) 21-Fnf-956460:15 BMP CO2 30.0 mmol/L (Normal) Range: 21.0-32.0 [...] 126 mg/dLsuggests DIABETES MELLITUS per A.D.A. criteria. 33-Sag-047788:15 CBCD ANC 3.6 3/uL (Normal) Range: 2.0-7.7 [...] 4.6-6.2 WBC 6.4 {k/mm3} (Normal) Range: 4.4-11.0 54-Jid-60519:00 BRAIN W/WO CONTRAST Radiology Report See Note [...] M.D.August 08, 2012 at 10:05:25 PM [id number] Signed AH/AH If you are the referring physician and would like to consult with theradiologist who provided this interpretation, please contact Chad Mast at [phone]. If this radiologist is unavailable,you will be directed to another radiologist to assist. If you are a patient with a question regarding this report, pleasecontactyour referring physician directly . Professional Interpretation Provided By: [facility], Phone , These documents contain legally protected [...] on 08/08/122207 Sign by: MIKHAIL STAUFFER MD 03-Wxn-754733:32 BRAIN/HEAD WITHOUT CONTRAST Radiology Report See Note [...] Fontenot M.D.August 04, 2012 at 5:16:58 PM [id number] Signed DN/DN If you are the referring physician and would like to consult with theradiologist who pro vided this interpretation, please contact Heather Ng M.D. at [phone]. If this radiologist is unavailable, youwillbe directed to another radiologist to assist. If you are a patient with a quest ion regarding this report, pleasecontactyour referring physician directly. Professional Interpretation Provided By: [facility], Phone , These documents contain legally pro tected and confidential healthinformation intended only for the use of the individual or entity namedabove. If you are not the intended recipient, you are hereby notifiedthatany disclosure, copying, dis tribution, or other use of these documents isstrictly prohibited. If you have received this information in error,pleasenotify the sender immediately and arrange for the return or destructionofthese anneliese echeverria. Dictated on 08/04/125 by HEATHER FONTENOT MD RTranscribed on 08/04/121717 by ITS IMPORTSign by HEATHER FONTENOT MD on 08/04/121718 Sign by: ___ HEATHER FONTENOT MD :36 CBCD ANC 4.1 3/uL (Normal) Range: 2.0-7.7 [...] Comments: PATIENT NOT FASTINGPERFORMED BY: LabCoSaint Barnabas Behavioral Health CenterXqrvrs2731 [facility] [id number] Information: [id number] COMPREHENSIVE (96171) ALT (SGPT) 13 [iU]/L (Normal) Range: 0-44 [...] (Normal) Range: 65-99 :01 HgA1C , Office (92302) HgA1C , Office 6.2 % (Normal) Range: 4.6 - 7.1 :01 Blood Glucose , Office (81089) Blood Glucose , Office 89 (Normal) :48 Microscopic Examination Comments: PATIENT WAS FASTINGPERFORMED BY: LabCoSaint Barnabas Behavior[facility] Health CenterSgglmz7288 [facility] [id number] Bacteria Few (Normal) Mucus Threads Present (Normal) Epithelial Cells (non renal) None seen {/hpf} (Normal) Range: 0 - 10 RBC 0-3 {/hpf} (Normal) Range: 0 - 3 WBC 0-5 {/hpf} (Normal) Range: 0 - 5 :48 TSH (47957) Comments: PATIENT WAS FASTINGPERFORMED BY: [employer] Mfkfhs9702 [facility] [id number] TSH 5.340 {uIU/mL} (Abnormal) Range: 0.450-4.500 :48 URINALYSIS, W/ MICRO (54958) Comments: PATIENT WAS FASTINGPERFORMED BY: [employer] Rhnciy6898 [facility] [id number] Microscopic Examination See below: (Normal) Microscopic Examination MICRON (Normal) Comments: Microscopic follows if indicated. Bilirubin Negative (Normal) Nitrite, Urine Negative (Normal) Urobilinogen,Semi-Qn 0.2 mg/dL (Normal) Range: 0.0-1.9 Occult Blood Negative (Normal) Ketones Negative (Normal) Glucose Negative (Normal) Protein Negative (Normal) WBC Esterase Negative (Normal) Appearance Clear (Normal) pH 5.5 (Normal) Range: 5.0-7.5 Urine-Color Yellow (Normal) Specific [place] 1.028 (Normal) Range: 1.005-1.030 :48 MICROALBUMIN: CREATININE RATIO Comments: PATIENT WAS FASTINGPERFORMED BY: [employer] Lfwnux9634 [facility] [id number] (07780) AND (14710) Microalb/Creat Ratio 1.6 {mg/g_creat} (Normal) Range: 0.0-30.0 Creatinine, Urine 195.7 mg/dL (Normal) Range: 22.0-328.0 Microalbumin, Urine 3.2 ug/mL (Normal) Range: 0.0-17.0 :48 METABOLIC PANEL, COMPREHENSIVE Comments: PATIENT WAS FASTINGPERFORMED BY: [employer] Vhkryb3496 [facility] [id number] (97331) ALT (SGPT) 16 [iU]/L (Normal) Range: 0-44 [...] mg/dL (Normal) Range: 65-99 :48 LIPID PANEL (95555) Comments: PATIENT WAS FASTINGPERFORMED BY: [employer]6370 [place] [facility] [id number] LDL Cholesterol Calc 97 mg/dL (Normal) Range: [...] MANUAL DIFF Comments: PATIENT WAS FASTINGPERFORMED BY: [employer]6370 [place] [facility] [id number] Information: [id number] (98181) Immature Grans (Abs) 0.0 {x10E3/uL} (Normal) Range: [...] (Normal) Range: 4.0-10.5 :46 HgA1C , Office (97001) HgA1C , Office 6.1 % (Normal) Range: 4.6 - 7.1 :46 Blood Glucose , Office (79355) Blood Glucose , Office 91 (Normal) 9-Sfx-705590:25 HEPATOBILLIARY IMG W/PHARM INT Radiology Report See [...] Cholecystokinin (0.02 ug/kg) was administered intravenously over u15-ezxnwy period. The post CCK gallbladder ejection fraction mbgwzllvhsfo28 minutes following Cholecystokinin administration was noted to [...] [place] M.D.December 24, 2011 at 8:34:10 PM [id number] S igned RB/RB If you are the referring physician and would like to consult with theradiologist who provided this interpretation, please contact Chad Aragon at [phone]. If this radiologist is un available, you will bedirected to another radiologist to assist. If you are a patient with a question regarding this report, pleasecontactyour referring physician directly. Professional Interpretation P rovided By: [facility], Phone , These documents contain legally protected [...] size of the right kidney. The right odqjnxpjrkirnx29.6 cm. Normal rolando al cortex. The right cortex measures 1.8 cm. Thereisno demonstrated renal mass or cyst. There is no right hydronephrosis. IMPRESSION:Sludge in the gallbladder lumen, with a thickened gallbladder wall .Correlation with nuclear medicine hepatobiliary scan is recommended. Signed:Jakob Hunt M.D.December 18, 2011 at 11:00:05 AM [id number] Signed GP/GP If you are the referring physician and would like to consult with theradiologist who provided this interpretation, please contact Chad Lao at [phone]. If this radiologist is unavailable, youwill be directed to another radiologist to assist. If you are a patient with a question regarding this report, pleasecontactyour referring physician directly. Professional Interpretation Provided By: [facility], Phone , These documents contain legally protected [...] destructionofthese documents. Dictated on 12/18/11 0940 by Adriana Hunt MDranscribed on 12/18/111116 by ITS IMPORTSign by Jakob Hunt MD 12/18/111117 Sign by: Jakob Hunt MD :41 HgA1C , Office (76946) HgA1C , Office 6.2 % (Normal) Range: 4.6 - 7.1 :41 Blood Glucose , Office (28487) Blood Glucose , Office 115 (Normal) :37 HgA1C , Office (37908) HgA1C , Office 6.4 % (Normal) Range: 4.6 - 7.1 :37 Blood Glucose , Office (35983) Blood Glucose , Office 119 (Normal) :44 PSA (PROSTATE SPECIFIC Comments: PATIENT WAS FASTINGPERFORMED BY: [facility]6370 [facility] [id number] ANTIGEN) (V76.44) Prostate Specific Ag, 1.7 ng/mL (Normal) Range: 0.0-4.0 Serum Comments: [employer] SoftwareIA methodology. .According to the [place] Urological Association, Serum PSA shoulddecrease and remain at undetectable levels after radicalprostatectomy. The AUA defines biochemical recurrence as an initialPSA value 0.2 ng/mL or greater followed by a subsequent confirmatoryPSA value 0.2 ng/mL or greater.Values obtained with d ifferent assay methods or kits cannot be usedinterchangeably. Results cannot be interpreted as absolute evidenceof the presence or absence of malignant disease. :44 TSH (43230) Comments: PATIENT WAS FASTINGPERFORMED BY: [employer]6370 [place] [facility] [id number] TSH 2.660 {uIU/mL} (Normal) Range: 0.450-4.500 :44 URINALYSIS, W/ MICRO (94878) Comments: PATIENT WAS FASTINGPERFORMED BY: [employer]6370 [facility] [id number] Microscopic Examination See below: (Normal) Microscopic Examination MICRON (Normal) Comments: Microscopic follows if indicated. Nitrite, Urine Negative (Normal) Urobilinogen,Semi-Qn 0.2 mg/dL (Normal) Range: 0.0-1.9 Bilirubin Negative (Normal) Occult Blood Negative (Normal) Ketones Negative (Normal) Glucose Negative (Normal) Protein Negative (Normal) WBC Esterase Negative (Normal) Appearance Clear (Normal) Urine-Color Yellow (Normal) pH 6.0 (Normal) Range: 5.0-7.5 Specific [place] 1.024 (Normal) Range: 1.005-1.030 :44 MICROALBUMIN: CREATININE RATIO Comments: PATIENT WAS FASTINGPERFORMED BY: Rezdy70 [place] [facility] [id number] (36767) AND (18140) Microalb/Creat Ratio 1.1 {mg/g_creat} (Normal) Range: 0.0-30.0 Microalbumin, Urine 3.2 ug/mL (Normal) Range: 0.0-17.0 Creatinine, Urine 294.1 mg/dL (Normal) Range: 22.0-328.0 :44 Microscopic Examination Comments: PATIENT WAS FASTINGPERFORMED BY: [employer]6370 [facility] [id number] Bacteria None seen (Normal) Mucus Threads Present (Normal) Epithelial Cells (non renal) None seen {/hpf} (Normal) Range: 0 - 10 RBC 0-3 {/hpf} (Normal) Range: 0 - 3 WBC 0-5 {/hpf} (Normal) Range: 0 - 5 :44 METABOLIC PANEL, COMPREHENSIVE Comments: PATIENT WAS FASTINGPERFORMED BY: [employer]6370 [facility] [id number] (57420) ALT (SGPT) 21 [iU]/L (Normal) Range: 0-55 [...] mg/dL (Abnormal) Range: 65-99 :44 LIPID PANEL (38926) Comments: PATIENT WAS FASTINGPERFORMED BY: PhotodigmSaint Barnabas Behavioral Health CenterDtgtoo5098 [facility] [id number] LDL/HDL Ratio 1.2 {ratio_units} (Normal) Range: 0.0-3.6 [...] MANUAL DIFF Comments: PATIENT WAS FASTINGPERFORMED BY: [employer] Jzumac4380 [facility] [id number] Information: [id number] (30735) Immature Grans (Abs) 0.0 {x10E3/uL} (Normal) Range: [...] (Normal) Range: 4.0-10.5 :25 HgA1C , Office (03194) HgA1C , Office 6.2 % (Normal) Range: 4.6 - 7.1 :25 Blood Glucose , Office (46400) Blood Glucose , Office 84 (Normal) :56 Blood Glucose , Office (64465) Blood Glucose , Office 96 (Normal) :29 [...] HEATHER FONTENOT MD :08 HgA1C , Office (42371) HgA1C , Office 6.3 % (Normal) Range: 4.6 - 7.1 :08 Blood Glucose , Office (69009) Blood Glucose , Office 108 (Normal) :50 URINALYSIS, W/ MICRO (93564) Comments: PATIENT WAS FASTINGPERFORMED BY: [employer] [place] [id number] Microscopic Examination See below: (Normal) Microscopic Examination MICRON (Normal) Comments: Microscopic follows if indicated. Nitrite, Urine Negative (Normal) Urobilinogen,Semi-Qn 0.2 mg/dL (Normal) Range: 0.0-1.9 Bilirubin Negative (Normal) Occult Blood Negative (Normal) Ketones Negative (Normal) Glucose Negative (Normal) Protein Negative (Normal) WBC Esterase Negative (Normal) Appearance Clear (Normal) Urine-Color Yellow (Normal) pH 5.5 (Normal) Range: 5.0-7.5 Specific [place] 1.022 (Normal) Range: 1.005-1.030 :50 MICROALBUMIN: CREATININE RATIO Comments: PATIENT WAS FASTINGPERFORMED BY: Rezdy70 [facility] [id number] ([id number]) AND (02252) Microalb/Creat Ratio <.6 {mg/g_creat} (Normal) Range: 0.0-30.0 Creatinine, Urine 163.1 mg/dL (Normal) Range: 22.0-328.0 Microalbumin, Urine <1.0 ug/mL (Normal) Range: 0.0-17.0 Comments: Verified by repeat analysis :50 METABOLIC PANEL, COMPREHENSIVE Comments: PATIENT WAS FASTINGPERFORMED BY: Rezdy70 [employer] [facility] [id number] ([id number]) ALT (SGPT) 16 [iU]/L (Normal) Range: 0-55 [...] mg/dL (Abnormal) Range: 65-99 :50 LIPID PANEL (98789) Comments: PATIENT WAS FASTINGPERFORMED BY: Rezdy70 [facility] [id number] LDL Cholesterol Calc 68 mg/dL (Normal) Range: [...] Comments: PATIENT WAS FASTINGPERFORMED BY: LabCoSaint Barnabas Behavioral Health CenterTkqait5175 [facility] [id number] Information: [id number] (33960) Immature Grans (Abs) 0.0 {x10E3/uL} (Normal) Range: [...] Microscopic Examination Comments: PATIENT WAS FASTINGPERFORMED BY: [employer] Ybxfvf0116 [facility] [id number] Bacteria Few (Normal) Mucus Threads Present (Normal) Epithelial Cells (non renal) None seen {/hpf} (Normal) Range: 0 - 10 RBC None seen {/hpf} (Normal) Range: 0 - 3 WBC 0-5 {/hpf} (Normal) Range: 0 - 5 :58 HgA1C , Office (09012) HgA1C , Office 6.0 % (Normal) Range: 4.6 - 7.1 :58 Blood Glucose , Office (68870) Blood Glucose , Office 93 (Normal) 02-Wou-246640:13 PSA (PROSTATE SPECIFIC Comments: PATIENT NOT FASTINGPERFORMED BY: [employer] Jssjtx5465 [facility] [id number] Information: [id number] ANTIGEN) (V76.44) Prostate Specific Ag, 1.5 ng/mL (Normal) Range: 0.0-4.0 Serum Comments: Dee ECLIA methodology. .According to the [place] U[employer], Serum PSA shoulddecrease and remain [...] of malignant disease. :16 HgA1C , Office (21572) HgA1C , Office 6.2 % (Normal) Range: 4.6 - 7.1 :16 Blood Glucose , Office (79763) Blood Glucose , Office 196 (Normal) 8-Lho-131957:15 TSH (23244) Comments: PATIENT WAS FASTINGPERFORMED BY: [employer] WirelessTr[facility]6370 [facility] [id number] TSH 3.200 {uIU/mL} (Normal) Range: 0.450-4.500 0-Ycd-085234:15 MICROALBUMIN: CREATININE RATIO Comments: PATIENT WAS FASTINGPERFORMED BY: [facility] WirelessTr[facility]6370 [facility] [id number] (13028) AND (46212) Creatinine, Urine 168.7 mg/dL (Normal) Range: 22.0-328.0 Microalb/Creat Ratio 1.5 {mg/g_creat} (Normal) Range: 0.0-30.0 Microalbumin, Urine 2.5 ug/mL (Normal) Range: 0.0-17.0 9-Wje-437454:15 METABOLIC PANEL, COMPREHENSIVE Comments: PATIENT WAS FASTINGPERFORMED BY: [facility] WirelessTr[facility]6370 [facility] [id number] (47343) A/G Ratio 1.8 (Normal) Range: 1.1-2.5 Alkaline [...] Glucose, Serum 108 mg/dL (Abnormal) Range: 65-99 3-Utn-632443:15 LIPID PANEL (72158) Comments: PATIENT WAS FASTINGPERFORMED BY: Rezdy70 [employer] [facility] [id number] LDL/HDL Ratio 1.8 {ratio_units} (Normal) Range: 0.0-3.6 HDL Cholesterol 49 mg/dL (Normal) Comments: According to ATP-III Guidelines, HDL-C >59 mg/dL is considered anegative risk factor for CHD. LDL Cholesterol Calc 86 mg/dL (Normal) Range: 0-99 VLDL Cholesterol Ezequiel 25 mg/dL (Normal) Range: 5-40 Cholesterol, Total 160 mg/dL (Normal) Range: 100-199 Triglycerides 123 mg/dL (Normal) Range: 0-149 7-Sin-706061:15 CBC WITH MANUAL DIFF Comments: PATIENT WAS FASTINGPERFORMED BY: Rezdy70 [facility] [id number] Information: [id number] (91192) Immature Grans (Abs) 0.0 {x10E3/uL} (Normal) Range: [...] (Normal) Range: 4.0-10.5 :53 HgA1C , Office (44768) HgA1C , Office 6.3 % (Normal) Range: 4.6 - 7.1 :53 Blood Glucose , Office (75020) Blood Glucose , Office 123 (Normal) :51 HgA1C , Office (11069) HgA1C , Office 6.2 % (Normal) Range: 4.6 - 7.1 :51 Blood Glucose , Office (42768) Blood Glucose , Office 93 (Normal) 62-Vpu-953060:01 Microscopic Examination Comments: PATIENT WAS FASTINGPERFORMED BY: LabCoSaint Barnabas Behavioral Health CenterQmwrem8430 [facility] [id number] Bacteria Few (Normal) Mucus Threads Present (Normal) Epithelial Cells (non renal) None seen {/hpf} (Normal) Range: 0 - 10 RBC 0-3 {/hpf} (Normal) Range: 0 - 3 WBC 0-5 {/hpf} (Normal) Range: 0 - 5 : PSA (PROSTATE SPECIFIC Comments: PATIENT WAS FASTINGPERFORMED BY: [facility] [id number] ANTIGEN) (V76.44) Prostate Specific Ag, 1.4 ng/mL (Normal) Range: 0.0-4.0 Serum Comments: BrightSide SoftwareIA methodology..According to the [place] U[employer] Association, Serum PSA shoulddecrease and remain at undetectable levels after radicalprostatectomy. The AUA defines biochemical recurrence a s an initialPSA value 0.2 ng/mL or greater followed by a subsequent confirmatoryPSA value 0.2 ng/mL or greater.Values obtained with different assay methods or kits cannot be usedinterchangeably. Results cannot be interpreted as absolute evidenceof the presence or absence of malignant disease. : TSH (02030) Comments: PATIENT WAS FASTINGPERFORMED BY: Rezdy70 [facility] [id number] TSH 3.670 {uIU/mL} (Normal) Range: 0.450-4.500 : URINALYSIS, W/ MICRO (84852) Comments: PATIENT WAS FASTINGPERFORMED BY: [facility]energyWashington [facility] [id number] Microscopic Examination See below: (Normal) Bilirubin Negative (Normal) Microscopic Examination MICRON (Normal) Comments: Microscopic follows if indicated. Nitrite, Urine Negative (Normal) Urobilinogen,Semi-Qn 0.2 mg/dL (Normal) Range: 0.0-1.9 Glucose Negative (Normal) Ketones Negative (Normal) Occult Blood Negative (Normal) Protein Negative (Normal) WBC Esterase Negative (Normal) Appearance Clear (Normal) pH 6.0 (Normal) Range: 5.0-7.5 Specific [place] 1.024 (Normal) Range: 1.005-1.030 Urine-Color Yellow (Normal) : MICROALBUMIN: CREATININE RATIO Comments: PATIENT WAS FASTINGPERFORMED BY: [facility]energy[facility] [id number] ([id number]) AND (97480) Microalb/Creat Ratio <.4 {mg/g_creat} (Normal) Range: 0.0-30.0 Microalbumin, Urine <1.0 ug/mL (Normal) Range: 0.0-17.0 Creatinine, Urine 226.9 mg/dL (Normal) Range: 22.0-328.0 19-Pim-846565:01 METABOLIC PANEL, COMPREHENSIVE Comments: PATIENT WAS FASTINGPERFORMED BY: LabCoSaint Barnabas Behavioral Health CenterUtmife1195 [facility] [id number] (67791) A/G Ratio 2.0 (Normal) Range: 1.1-2.5 Alkaline [...] Glucose, Serum 93 mg/dL (Normal) Range: 65-99 63-Xxu-007562:01 LIPID PANEL (45580) Comments: PATIENT WAS FASTINGPERFORMED BY: LabCoSaint Barnabas Behavioral Health CenterVxnybn7511 [facility] [id number] HDL Cholesterol 46 mg/dL (Normal) Comments: According to ATP-III Guidelines, HDL-C >59 mg/dL is considered anegative risk factor for CHD. LDL Cholesterol Calc 70 mg/dL (Normal) Range: 0-99 LDL/HDL Ratio 1.5 {ratio_units} (Normal) Range: 0.0-3.6 VLDL Cholesterol Ezequiel 18 mg/dL (Normal) Range: 5-40 Cholesterol, Total 134 mg/dL (Normal) Range: 100-199 Triglycerides 89 mg/dL (Normal) Range: 0-149 19-Qaj-619002:01 CBC WITH MANUAL DIFF Comments: PATIENT WAS FASTINGPERFORMED BY: LabCoSaint Barnabas Behavioral Health CenterMvxpvg8342 [facility] [id number] Information: [id number] (38896) Baso (Absolute) 0.0 {x10E3/uL} (Normal) Range: 0.0-0.2 [...] (Normal) Range: 4.0-10.5 :59 HgA1C , Office (41123) HgA1C , Office 6.6 % (Normal) Range: 4.6 - 7.1 :59 Blood Glucose , Office (82479) Blood Glucose , Office 105 (Normal) :29 HgA1C , Office (64842) Comments: done km HgA1C , Office 7.2 % (Abnormal) Range: 4.6 - 7.1 :29 Blood Glucose , Office (23843) Comments: done Blood Glucose , Office 134 (Normal) :04 HgA1C , Office (32298) Comments: done km HgA1C , Office 6.7 % (Normal) Range: 4.6 - 7.1 :04 Blood Glucose , Office (97202) Comments: done Blood Glucose , Office 141 (Normal) :27 TSH (63263) Comments: PATIENT WAS FASTINGPERFORMED BY: LabCoSaint Barnabas Behavioral Health CenterRxgjtq3191 [facility] [id number] TSH 3.740 {uIU/mL} (Normal) Range: 0.450-4.500 :27 METABOLIC PANEL, COMPREHENSIVE Comments: PATIENT WAS FASTINGPERFORMED BY: LabPinocularSaint Barnabas Behavioral Health CenterEkjrdc0082 [facility] [id number] (29982) A/G Ratio 1.7 (Normal) Range: 1.1-2.5 Albumin, [...] Range: 135-145 25-Oct-20089:27 LIPOPROTEIN, BLD, BY NMR (85574) Comments: PATIENT WAS FASTINGClinical Information: ADD [id number], [id number] PERFORMED BY: LabTr[facility] Hospital6370 [facility] [id number] Cholesterol, Total 149 mg/dL (Normal) HDL-C 41 [...] mg/dL (Normal) 25-Oct-20089:27 CBC WITH MANUAL DIFF (73499) Comments: PATIENT WAS FASTINGPERFORMED BY: LabCoSaint Barnabas Behavioral Health CenterXzhykn1936 [facility] [id number] Baso (Absolute) 0.0 {x10E3/uL} (Normal) Range: 0.0-0.2 [...] (Normal) Range: 4.0-10.5 :55 HgA1C , Office (99080) Comments: done km HgA1C , Office 5.9 % (Normal) Range: 4.6 - 7.1 :55 Blood Glucose , Office (91497) Comments: done km Blood Glucose , Office 115 (Normal) 31-Yfr-921208:10 TSH (01917) Comments: REpeat first week in September; PATIENT NOT FASTINGClinical Information: ADD DRAW FEE [id number] ADD J [id number] PERFORMED BY: PhotodigmSaint Barnabas Behavioral Health CenterXanmjq4[address] [place] [address] [id number] TSH 3.800 {uIU/mL} (Normal) Range: 0.450-4.500 72-Mvy-184937:48 TSH (09202) Comments: PATIENT WAS FASTINGPERFORMED BY: PhotodigmDerrick [place] 9223270 [facility] [id number] TSH 4.538 {uIU/mL} (Abnormal) Range: 0.450-4.500 68-Pjg-895110:48 MICROALBUMIN: CREATININE RATIO Comments: PATIENT WAS FASTINGPERFORMED BY: [employer] [id number] (90195) AND (00014) Creatinine, Urine 370.1 mg/dL (Abnormal) Range: 22.0-328.0 Microalb/Creat Ratio 1.0 {ug/mg_creat} (Normal) Range: 0.0-30.0 Microalbumin, Urine 3.7 ug/mL (Normal) Range: 0.0-17.0 07-Wye-605827:48 METABOLIC PANEL, COMPREHENSIVE Comments: PATIENT WAS FASTINGPERFORMED BY: PhotodigmDerrick [place] 9223270 [facility] [id number] (30051) A/G Ratio 1.6 (Normal) Range: 1.1-2.5 Albumin, [...] Sodium, Serum 140 mmol/L (Normal) Range: 135-145 81-Xms-320898:48 CBC WITH MANUAL DIFF (58900) Comments: PATIENT WAS FASTINGClinical Information: ADD DRAW FEE [id number] ADD J [id number] PERFORMED BY: LabTrinity [facility] Hospital6370 [facility] [id number] Baso (Absolute) 0.0 {x10E3/uL} (Normal) Range: 0.0-0.2 [...] {x10E3/uL} (Normal) Range: 4.0-10.5 :48 LIPID PANEL (86593) Comments: PATIENT WAS FASTINGPERFORMED BY: LabCoSaint Barnabas Behavioral Health CenterBagxop5100 [facility] [id number] Cholesterol, Total 171 mg/dL (Normal) Range: 100-199 HDL Cholesterol 45 mg/dL (Normal) Comments: According to ATP-III Guidelines, HDL-C >59 mg/dL is considered anegative risk factor for CHD. LDL Cholesterol Calc 99 mg/dL (Normal) Range: 0-99 LDL/HDL Ratio 2.2 {ratio_units} (Normal) Range: 0.0-3.6 Triglycerides 133 mg/dL (Normal) Range: 0-149 VLDL Cholesterol Ezequiel 27 mg/dL (Normal) Range: 5-40 77-Seb-019152:24 HgA1C , Office (09796) Comments: done km HgA1C , Office 6.5 % (Normal) Range: 4.6 - 7.1 :24 Blood Glucose , Office (24409) Comments: done [place] Blood Glucose , Office 113 (Normal) :38 HgA1C , Office (45799) Comments: done [place] HgA1C , Office 6.0 % (Normal) Range: 4.6 - 7.1 :38 Blood Glucose , Office (19573) Comments: done [place] Blood Glucose , Office 132 (Normal) :09 PSA,TOT SCREEN 1.30 ng/mL (Normal) Range: 0.00-4.00 Comments: This test was performed using the TPSA method for [facility] chemistry system.Values obtained with different assay methods cannot be usedinterchangably.When changing PSA assays in the course of monito ring apatient, additional sequential testing should be carriedout to confirm baseline values. :00 HgA1C , Office (37935) Comments: done [place] HgA1C , Office 7.4 % (Abnormal) Range: 4.6 - 7.1 :00 Blood Glucose , Office (81862) Comments: done Blood Glucose , Office 138 (Normal) :32 MYOCARD PERF SPECT REST/STRESS Radiology Report See Note (Normal) Comments: Exam Number: [id number] MYOCARDIAL PERFUSION SCAN TECHNIQUEThe patient was injected [...] of 60%. Reported By: LOUIS CASTILLO M.D. 69-Cqh-283145:27 URINALYSIS W/O MICRO (50316) Comments: PATIENT WAS FASTINGPERFORMED BY: [facility] [id number] Appearance Clear (Normal) Bilirubin Negative (Normal) Glucose Negative (Normal) Ketones Negative (Normal) Microscopic Examination MICRON (Normal) Comments: Microscopic follows if indicated. Nitrite, Urine Negative (Normal) Occult Blood Negative (Normal) pH 7.5 (Normal) Range: 5.0-7.5 Protein Trace (Normal) Specific [place] 1.023 (Normal) Range: 1.005-1.030 Urine-Color Yellow (Normal) Urobilinogen,Semi-Qn 0.2 mg/dL (Normal) Range: 0.0-1.9 WBC Esterase Negative (Normal) 52-Eyg-489319:27 TSH (67798) Comments: PATIENT WAS FASTINGPERFORMED BY: Rezdy70 [employer] [facility] [id number] TSH 3.505 {uIU/mL} (Normal) Range: 0.350-5.500 Comments: Adult TSH concentrations below 5.5 uIU/mL do not rule out the presence of subclinical hypothyroidism. 22-Mpn-820118:27 MICROALBUMIN URINE QUANT Comments: PATIENT WAS FASTINGPERFORMED BY: LabCoSaint Barnabas Behavioral Health CenterFzmjwu5193 [facility] [id number] ([id number]) Microalbum.,U,Random 4.4 ug/mL (Normal) Range: 0.0-17.0 62-Rvr-598709:27 METABOLIC PANEL, COMPREHENSIVE Comments: PATIENT WAS FASTINGPERFORMED BY: LabTrinity Health [facility] Hospital6370 [facility] [id number] (17908) A/G Ratio 1.8 (Normal) Range: 1.1-2.5 Albumin, [...] Serum 132 mg/dL (Abnormal) Range: 65-99 If -Andorran >60 mL/min (Normal) Range: 60-137 Comments: Note: [...] Range: 135-145 :27 CBC WITH MANUAL DIFF (72059) Comments: PATIENT WAS FASTINGClinical Information: ADD [id number], ADD [id number] PERFORMED BY: GUICHO LabCoThe Bucket BBQEbkvco1838 [facility] [id number] Baso (Absolute) 0.0 {x10E3/uL} (Normal) Range: 0.0-0.2 [...] {x10E3/uL} (Normal) Range: 4.0-10.5 :27 LIPID PANEL (21806) Comments: PATIENT WAS FASTINGPERFORMED BY: LabCoSaint Barnabas Behavioral Health CenterLqmfcj8974 [facility] [id number] LDL/HDL Ratio 2.4 {ratio_units} (Normal) Range: 0.0-3.6 Cholesterol, Total 212 mg/dL (Abnormal) Range: 100-199 Comment SPRCS (Normal) Comments: If initial LDL-cholesterol result is >100 mg/dL, assess forrisk factors. HDL Cholesterol 52 mg/dL (Normal) Range: 40-59 LDL Cholesterol Calc 123 mg/dL (Abnormal) Range: 0-99 Triglycerides 184 mg/dL (Abnormal) Range: 0-149 VLDL Cholesterol Ezequiel 37 mg/dL (Normal) Range: 5-40 :28 HgA1C , Office (98216) Comments: done HgA1C , Office 6.9 % (Normal) Range: 4.6 - 7.1 :28 Blood Glucose , Office (31797) Comments: done Blood Glucose , Office 157 (Normal) :58 HgA1C , Office (90824) Comments: done HgA1C , Office 6.6 % (Normal) Range: 4.6 - 7.1 :58 Blood Glucose , Office (40440) Comments: done Blood Glucose , Office 136 [...] was performed using the TPSA method for theStamplay chemistry system.Values obtained with different assay methods cannot be usedinterchangably.When changing PSA assays in the course of monito ring apatient, additionaly sequential testing should be carriedout to confirm baseline values. :29 TSH 3.67 {uIU/mL} (Normal) Range: 0.34-4.82 :39 Blood Glucose , Office (24451) Comments: done km Blood Glucose , Office 98 (Normal) :39 HgA1C , Office (43913) Comments: done km HgA1C , Office 6.5 % (Normal) Range: 4.6 - 7.1 :57 HgA1C , Office (47280) HgA1C , Office 6.5 % (Normal) Range: 4.6 - 7.1 8-Ndd-241223:57 Blood Glucose , Office (19249) Blood Glucose , Office 138 (Normal) :03 HgA1C , Office (28004) HgA1C , Office 6.6 % (Normal) Range: 4.6 - 7.1 :03 Blood Glucose , Office (36496) Blood Glucose , Office 92 (Normal) 61-Uwd-185134:28 LIVER ALB 3.6 g/dL (Normal) Range: 3.4-5.0 [...] 1 month- gen med / will need [facility] Indication: Physical exam WITHOUT abnormal findings [...] from H/O transient cerebral ischemia) : Reviewed [employer] Letter Indication: History of transient cerebral ischemia (Renamed from H/O transient cerebral ischemia) Hypertensive urgency : Reviewed [employer] Letter Indication: Hypertensive urgency Heart disease, hypertensive, [...] Current Prescription(s) Indication: Hypothyroidism Hypothyroidism : Reviewed [employer] Letter Indication: Hypothyroidism Uncontrolled type II diabetes [...] from there Planned Observations T4, FREE (THYROXINE) (25151)Indication: Hypothyroidism On: :48 Request T3, FREE (TRIDOTHYRONINE) (85136)Indication: Hypothyroidism On: :48 Request URINALYSIS, W/ MICRO (36182)Indication: Essential hypertension On: :47 Request MICROALBUMIN: CREATININE RATIO (62650) AND (41681)Indication: Essential hypertension On: :47 Request METABOLIC PANEL, COMPREHENSIVE (38527)Indication: Essential hypertension On: :47 Request CBC W/AUTO DIFF WBC (20183)Indication: Essential hypertension On: :47 Request LIPID PANEL (12939)Indication: Hypercholesterolemia On: :47 Request TSH (06671)Indication: Hypothyroidism On: :47 Request CALCIFIDIOL (08828) VIT D 25Indication: Vitamin D deficiency On: :47 Request Influenza A&B Viral Culture (80705)Indication: Flu-like symptoms On: 0-Fxh-247036:53 Request POTASSIUM SERUM (50691)Indication: Potassium disorder On: 70-Gcv-877359:53 Request CALCIFEDIOL (48254)Indication: Vitamin D deficiency On: 49-Snf-57014:36 Request TSH (72762)Indication: Hypothyroidism On: 42-Aeg-62620:35 Request Lipid Panel (56556)Indication: Hypercholesterolemia On: :34 Request Metabolic Panel, Comprehensive (75228)Indication: Hypercholesterolemia On: :34 Request URINE VMA (94647)Indication: Hypertensive urgency On: 44-Jud-485292:54 Request Catecholamines,24-Hour Urine (45842)Indication: Hypertensive urgency On: 62-Vie-550854:54 Request RENIN (60803)Indication: Hypertensive urgency On: 16-Loz-411771:54 Request ALDOSTERONE (66254)Indication: Hypertensive urgency On: 51-Fhp-395170:54 Request METANEPHRINES (45770)Indication: Hypertensive urgency On: 54-Bgv-701267:54 Request CBC (Auto) (76293)Indication: Hypertensive urgency On: 22-Zjo-612413:36 Request Metabolic Panel, Basic (31072)Indication: Hypertensive urgency On: 75-Viy-951469:36 Request TSH (31704)Indication: Hypertensive urgency On: 39-Hfn-498632:24 Request CBC WITH MANUAL DIFF (23849)Indication: Hypertensive urgency On: 63-Jfu-032151:24 Request METABOLIC PANEL, COMPREHENSIVE (26464)Indication: Hypertensive urgency On: 42-Omy-717041:24 Request Troponin I (92267)Indication: Hypertensive urgency On: 56-Neu-633492:20 Request CPK MB FRACTION (59606)Indication: Hypertensive urgency On: 62-Lbz-065894:20 Request CREATINE KINASE TOTAL (26044)Indication: Hypertensive urgency On: 02-Htv-019382:20 Request TSH (20812)Indication: Hypothyroidism On: 73-Bwn-239025:56 Request HgA1C , Office (40726)Indication: Controlled diabetes mellitus type II without complication On: 14-Djf-72221:56 Request PSA (PROSTATE SPECIFIC ANTIGEN) (V76.44)Indication: Screening for prostate cancer On: 29-Sco-98142:20 Request TSH (84084)Indication: Uncontrolled type II diabetes mellitus On: :19 Request URINALYSIS, W/ MICRO (98448)Indication: Uncontrolled type II diabetes mellitus On: :19 Request MICROALBUMIN: CREATININE RATIO (68106) AND (47323)Indication: Uncontrolled type II diabetes mellitus On: :19 Request METABOLIC PANEL, COMPREHENSIVE (61679)Indication: Uncontrolled type II diabetes mellitus On: :19 Request LIPOPROTEIN, BLD, BY NMR (61393)Indication: Uncontrolled type II diabetes mellitus On: :19 Request LIPID PANEL (96425)Indication: Uncontrolled type II diabetes mellitus On: :19 Request CBC WITH MANUAL DIFF (91425)Indication: Uncontrolled type II diabetes mellitus On: :19 Request LIPOPROTEIN, BLD, BY NMR (92691)Indication: Hypercholesterolemia On: :57 Request LIPID PANEL (13252)Indication: Hypercholesterolemia On: :57 Request Comments: do in 3 months LIPID PANEL (20163)Indication: Controlled diabetes mellitus type II without complication On: :22 Request T3, FREE (TRIDOTHYRONINE) (01115)Indication: Abnormal TSH On: :40 Request T4, FREE (THYROXINE) (27335)Indication: Abnormal TSH On: :40 Request TSH (14841)Indication: Abnormal TSH On: :40 Request Comments: do in 2-3 mo TSH (03487)Indication: Controlled diabetes mellitus type II without complication On: 35-Bao-296103:29 Request METABOLIC PANEL, COMPREHENSIVE (24422)Indication: Controlled diabetes mellitus type II without complication On: :29 Request MICROALBUMIN: CREATININE RATIO (32960) AND (01028)Indication: Controlled diabetes mellitus type II without complication On: 11-Jtv-128756:29 Request CBC WITH MANUAL DIFF (71667)Indication: Controlled diabetes mellitus type II without complication On: 09-Vfg-960583:29 Request LIPID PANEL (07315)Indication: Controlled diabetes mellitus type II without complication On: 46-Uzv-568382:29 Request PSA (PROSTATE SPECIFIC ANTIGEN) (V76.44)Indication: Uncontrolled type II diabetes mellitus On: :18 Request LIPID PANEL (00097)Indication: Hypercholesterolemia On: 95-Nmg-390535:02 Request HEPATIC FUNCTION PANEL (97226)Indication: Hypercholesterolemia On: 24-Pqe-182720:02 Request TSH (15584) On: :45 Request METABOLIC PANEL, COMPREHENSIVE (39412) On: :44 Request LIPID PANEL (26695) On: :44 Request CBC WITH MANUAL DIFF (44617) On: :44 Request PSA (PROSTATE SPECIFIC ANTIGEN) (21951) On: :17 Request Comments: screening TSH (34894) On: 8-Zzq-921866:14 Request URINALYSIS W/O MICRO (85865) On: Request MICROALBUMIN URINE QUANT (76248) On: Request LIPID PANEL (35791) On: Request METABOLIC PANEL, COMPREHENSIVE (74211) On: Request CBC WITH MANUAL DIFF (76837) On: Request MICROALBUMIN: CREATININE RATIO (41375) On: Request AND (04509) METABOLIC PANEL, COMPREHENSIVE (02321) On: Request LIPID PANEL (84193) On: Request CBC WITH MANUAL DIFF (99527) On: Request Planned Procedures PNEUM VAC ADLT/IMUMNOSPR, SBC/INTRM On: 07-Feb-2018 Intent (05675)By: Denisa Macias DO Comments: 0.5 cc given sq lt arm lot [id number] exp 04/21/19 Denisa Macias DO X-RAY OF RIGHT HAND, ONE OR TWO On: 07-Feb-2018 Intent VIEWS (20433)By: Denisa Macias DO Comments: attention to hypothenar area for FB Denisa Macias DO TD VACCINE ADULT (49667)By: Venkata On: 23-Dec-2017 Intent Anne Comments: a105a3/08832.5mlr dltd, IMMLONG Flu Vaccine (Quadrivalent) 09442Rg: On: 28-Nov-2017 Intent Visit, Nurse Comments: Lot #[id number]/30/19Site-L dltd, IMDose prefilled syringegiven by: Genna VARGAS.VIS reviewed and ABN signed X-RAY RIGHT KNEE, 3 VIEWS (54305)By: On: 31-Jul-2017 Intent Denisa Macias DO, DO, Kathleen Radiology - Knee - Right - Weight On: 31-Jul-2017 Intent BearingBy: Denisa Macias DO, DO, Kathleen ELECTROCARDIOGRAM, COMPLETE (ECG) On: 31-Jul-2017 Intent (94770)By: Denisa Macias DO Comments: nsr no acute chg Denisa Macias DO CT - Brain/Head (IV Contrast On: 31-Dec-2016 Intent Needed)By: Denisa Macias DO, DO, Kathleen Echo CompleteBy: Denisa Macias DO On: 31-Dec-2016 Intent Denisa Macias DO [id number] On: 31-Dec-2016 Intent FOR OBESITY, 15 MINUTES ([id number])By: Denisa Macias DO, DO, Kathleen Flu Vaccine (Quadrivalent) [id number]: On: 17-Dec-2016 Intent Denisa Macias DO, DO, Comments: Lot:[id number]:09/09/17Amt:0.5mlRoute:IMSite: L DltdGiven By: YURY Valdez signed Denisa MAGNETIC RESONANCE ANGIOGRAPHY OF On: 24-Sep-2016 Intent CAROTID AND VERTEBRAL VESSELS ([id number])By: Denisa Macias DO, DO, Kathleen ELECTROCARDIOGRAM, COMPLETE (ECG) On: 24-Sep-2016 Intent ([id number])By: Denisa Macias DO Comments: sinus gabby no acute chg- on BB Denisa Macias DO Renal Duplex ScanBy: Colleen GARCIA, On: 24-Sep-2016 Intent Denisa Valladares DO ELECTROCARDIOGRAM, COMPLETE (ECG) On: 10-Sep-2016 Intent ([id number])By: Denisa Macias DO Comments: sinus gabby no acute chg Denisa Macias DO CT HEAD OR BRAIN WO CONTRAST On: 21-May-2016 Intent ([id number])By: Denisa Macias DO, DO, Kathleen Flu Vaccine (Quadrivalent) [id number]: On: 23-Dec-2015 Intent Emeka Levin Comments: FLUlot: [id number]:08/08site:Lt deltoidroute:IMdose:.5mlDEMICK, MA Echo CompleteBy: Denisa Macias DO On: 24-Oct-[address] CT SCAN OF CHEST WITH CONTRAST On: 24-Oct-2015 Intent ([id number])By: ColleenDenisa pratt DO, DO, Kathleen CT - Chest (IV Contrast Needed)By: On: 20-Jun-2015 Intent Denisa Macias DO, DO, Kathleen Echo CompleteBy: Denisa Macias DO On: 21-Feb-2015 Intent Denisa Macias DO Flu Vaccine (Quadrivalent) 85015Ko: On: 05-Jan-2015 Intent Denisa Macias DO, DO, Comments: lot [id number]: 09/22/2015site/route L rafa, IMamt 0.5mlVIS and ABN signed when applicableChelsea, CMAFM4 Denisa ELECTROCARDIOGRAM, COMPLETE (ECG) On: 16-Nov-2014 Intent ([id number])By: Denisa Macias DO Comments: nsr no acute changes - Denisa Macias DO Prevnar 13 ([id number])By: Colleen GARCIA, On: 10-May-2014 Intent Denisa Valladares DO Comments: Lot:[id number]:08/07Dose:0.5mgRoute:imSite:l armGiven By:MIGUEL ÁNGEL signed Inhaler Demonstration ([id number])By: On: 23-Mar-2014 Intent Chase REIS Hayley Herman ADMINISTRATION OF INFLUENZA VIRUS On: 25-Dec-2013 Intent VACCINE (G0008)By: Visit, Nurse Comments: Lot #[id number]-L dltd, IMDose prefilled syringegiven by:TRACYong, LPNVIS and ABN signed FLU VAC, SPLIT, >3 YEARS, INTRAMUSC On: 25-Dec-2013 Intent ([id number])By: Visit, Nurse EKG ([id number])By: Denisa Macias DO On: 08-Oct-2013 Intent Denisa Macias DO Comments: nsr no acute chg - same as 2012 and last echo 2013 Radiology - PelvisBy: Colleen GARCIA, On: 09-Jul-2013 Intent Denisa Valladares DO Comments: attention R side SI jt Radiology - Hip - RightBy: Colleen On: 09-Jul-2013 Denisa Izquierdo DO, DO, Kathleen EMGBy: Denisa Macias DO On: 03-Apr-2013 Denisa Izquierdo DO Comments: lower extremity Nerve ConductionBy: Colleen DO, On: 03-Apr-2013 Intent Denisa Colleen DO Denisa Comments: lower extremity Eprescribed prescriptions ([id number])By: On: 03-Apr-2013 Intent Anne Edge LPN PNEUM VAC ADLT/IMUMNOSPR, SBC/INTRM On: 19-Dec-2012 Intent ([id number])By: Marge Smith Comments: Lot:[id number]:10/25/13Dose:0.5mgRoute:imSite:r armGiven By:MIGUEL ÁNGEL signed ADMINISTRATION OF PNEUMOCOCCAL On: 19-Dec-2012 Intent VACCINE (G0009)By: Marge Smith FLU VAC, SPLIT, >3 YEARS, INTRAMUSC On: 17-Dec-2012 Intent ([id number])By: Anne Edge LPN Comments: Lot:[id number]:6.14Amt:0.5mlRoute:IMSite: L DltdGiven By: YURY Valdez signed Eprescribed prescriptions ([id number])By: On: 17-Dec-2012 Intent Anne Edge LPN Eprescribed prescriptions ([id number])By: On: 15-Sep-2012 Intent Anne Edge LPN Renal Artery DopplerBy: Colleen DO, On: 08-Aug-2012 Intent Denisa Wareon DODenisa MRI - BrainBy: Colleen DO Denisa On: 04-Aug-[address] - Brain/HeadBy: Colleen DO, On: 04-Aug-2012 Intent Denisa Colleen DODenisa Echo CompleteBy: Colleen DO Denisa On: 04-Aug-2012 Intent Colleen DO Denisa Carotid DopplerBy: Colleen DO, On: 04-Aug-2012 Intent Denisa Colleen DO Denisa EKG ([id number])By: Colleen DOInesDenisa On: 28-Jul-2012 Intent Colleen DO Denisa Comments: nsr no acute changes Echo CompleteBy: Colleen DO Denisa On: 21-Mar-2012 Intent Colleen DO Denisa Echo CompleteBy: Colleen DO Denisa On: 19-Mar-2012 Intent Colleen DO Denisa Eprescribed prescriptions ([id number])By: On: 13-Mar-2012 Intent Anne Edge LPN Eprescribed prescriptions ([id number])By: On: 31-Dec-2011 Intent Denisa Macias DO, DO, Kathleen Nuclear Medicine - HIDA w/CPKBy: On: 19-Dec-2011 Intent Ciesa HELMET COVERER, Supriya EKG ([id number])By: Denisa Macias DO On: 13-Dec-2011 Intent Denisa Macias DO Comments: nsr no acute chg Ultrasound - GallbladderBy: Colleen On: 29-Nov-2011 Intent Denisa GARCIA DO, Kathleen Eprescribed prescriptions ([id number])By: On: 29-Nov-2011 Intent Anne Edge LPN FLU VAC, SPLIT, >3 YEARS, INTRAMUSC On: 27-Nov-2011 Intent ([id number])By: Marissa Palomino LPN Comments: Lot #[id number]/30/13Site-left deltoidgiven by: Todd Palomino LPN ADMINISTRATION OF INFLUENZA VIRUS On: 27-Nov-2011 Intent VACCINE (G0008)By: Marissa Palomino LPN MRI - Lumbar Spine (IV Contrast On: 26-Jan-2011 Intent Needed)By: Denisa Macias DO, DO, Kathleen EKG ([id number])By: Denisa Macias DO On: 05-Jan-2011 Intent Denisa Macias DO Comments: nsr no acute chg Cartoid DopplerBy: Colleen GARCIA, On: 05-Jan-2011 Intent Denisa Valladares DO EKG ([id number])By: Denisa Macias DO On: 06-Dec-2010 Intent Denisa Macias DO Comments: nsr no acute chgn- Bio Z ([id number])By: Denisa Macias DO On: 06-Dec-2010 Intent Denisa Macias DO Comments: stabel parameters- no chg in rx IMMUNIZ ADMNIN, 1 VAC, SNGL/COMBO On: 06-Dec-2010 Intent ([id number])By: Denisa Macias DO, DO, Kathleen FLU VAC, SPLIT, >3 YEARS, INTRAMUSC On: 06-Dec-2010 Intent ([id number])By: Denisa Macias DO, DO, Kathleen TDAP VACCINE >7 IM ([id number])By: Colleen On: 30-Aug-2010 Denisa Izquierdo DO, DO, Kathleen Comments: Lot #[id number]-2/25/13Site-left deltoidgiven by: Todd Palomino LPN ADMINISTRATION OF INFLUENZA VIRUS On: 27-Dec-2009 Intent VACCINE (G0008)By: Edilia Vasquez LPN FLU VAC, SPLIT, >3 YEARS, INTRAMUSC On: 27-Dec-2009 Intent ([id number])By: Edilia Vasquez LPN Comments: Lot #[id number] 4PExp-07/03Site-L armDose0.5mlgiven by: EKG ([id number])By: Denisa Macias DO On: 15-Nov-2009 Intent Denisa Macias DO Comments: nsr no acute changes MRI - Shoulder(s) - LeftBy: Colleen On: 11-May-2009 Intent Denisa GARCIA DO, Kathleen Bio Z ([id number])By: Denisa Macias DO On: 25-Oct-2008 Intent Denisa Macias DO Comments: NORMAL SVR AND CO EKG ([id number])By: Denisa Macias DO On: 25-Oct-2008 Intent Denisa Macias DO Comments: NSR NO ACUTE CHANGES Bio Z ([id number])By: Denisa Macias DO On: 04-Jun-2008 Intent Denisa Macias DO Comments: normal IMMUNIZ ADMNIN, 1 VAC, SNGL/COMBO On: 05-Jan-2008 Intent ([id number])By: Denisa Macias DO, DO, Kathleen FLU VAC, SPLIT, >3 YEARS, INTRAMUSC On: 05-Jan-2008 Intent ([id number])By: Denisa Macias DO, DO, Kathleen Bio Z ([id number])By: Denisa Macias DO On: 07-Nov-2007 Intent Denisa Macias DO Comments: normal svr and co Nuclear Stress Test/Stress On: 15-Sep-2007 Intent SPECT/TreadmillBy: Colleen DO, Comments: heart group Denisa Valladares DO Echo CompleteBy: Denisa Macias DO On: 07-Aug-2007 Intent Denisa Macias DO Cartoid DopplerBy: Colleen , On: 07-Aug-2007 Intent Denisa Valladares DO EKG ([id number])By: Denisa Macias DO On: 07-Aug-2007 Intent Denisa Macias DO Comments: nsr no acute ischemic changes EKG ([id number])By: Denisa Macias DO On: 29-Nov-2006 Intent Denisa Macias DO Comments: nsr no acute ischemic changes EMGBy: Denisa Macias DO On: 04-Nov-2006 Intent Denisa GARCIA Nerve ConductionBy: Colleen DO, On: 04-Nov-2006 Intent Denisa Valladares DO Instructions [...] The patient does have durable power of commercial attorney and living will. The patient has [...] history. Yes the patient did have (mms /30wisper 3/) a mini mental status End: 19-Jan-2015 11:07 [...] The patient does have durable power of commercial attorney and living will. The patient has noticed nothing from the geriatic depression scale. Other providers contributing to the patient's care are nitroglycerin neutralizer (dr zayas) and other: ([facility], vision test up to date).Encounter Diagnosis: Physical [...] The patient does have durable power of commercial attorney and living will. The patient has noticed nothing from the geriatic depression scale . Other providers contributing to the patient's care are nitroglycerin neutralizer (Dr. Antonio) and surgeon (Dr. Negro -- [...] needs help with are none. The pat ient has driven in past 6 months and [...] PSA testing (08/2011) and colonoscopy (2011). The pa tient does have durable power of commercial attorney and living will. The patient has noticed nothing from the geriatic depression scale. 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 Encounter Diagnosis: Type II Diabetes,controlled (250.00), [...] 07-Mar-2006 14:37 Payers MedicareAetna Life Ins/MedicareErnest Stone; a guarantor
--- OUTSIDE RECORDS SUMMARY | 2018-06-16 22:01 | XMS RPT_ITS | Continuity of Care Document ---
:1945 External Reference #:[id number] Author Organization [facility] Address [address] [facility] [address] [place] [address] Phone Care Team Providers Name Role Phone Colleen Denisa GARCIA Unavailable Physical Therapy, [facility] Unavailable Herberth Pollock Unavailable Lawrence Collier MD Unavailable Baljit Arcos MD Unavailable Dr. Nik Ch Unavailable Santana Liu Unavailable Dr. Abel Rojas Unavailable Dr. 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: Active TUBULOVILLOUS ADENOMA, NOS Comments: [...] days Quantity: 90 {Tablet} Refills: 3 Ordered:23-Dec-2017 ColleenJim pratt DO, DO, Kathleen Start : 23-Dec-2017 Active [...] DO, Kathleen Start : 27-Dec-2016 Active Pen Erskine 5/16 31G X 8 MM Miscellaneous 1 [...] days Quantity: 20 {Tablet} Refills: 0 Ordered:27-May-2015 Colleen Jim DeniaDenisa Start : 27-May-2015 End : 06-Jun-2015 Inactive [...] (External Solution) uad (10 %) Inactive Comments:Trillium [place] Levitra 10 MG Oral Tablet 1 Tablet [...] : 03-May-2016 End : 10-Sep-2016 Inactive ASPIRIN BUF(ZSDXOZ-VEMVBB-VHX), 325MG (Oral Tablet) 1 (one) Tablet Daily [...] as of 30-May-2016 Procedures Date Value Details 05-Dec-2016 PT D/C Summary (1) Result: Comments: See Note; NOTES: [facility] Physical Therapy [facility] [place] [address] Fax REHABILITATION SERVICES DISCHAR GE SUMMARY MR#: [id number] Acct: [id number] Name: YOHANNES CADET Rep #: [id number] : 1945 71 From: Aftab Mendez PT, ATC Referring Dr.: Nik Ch DPM Status: REG RCR Insurance: MEDIC ARE PART A B WPS [employer] HP - PT D/C Summary It [...] please feel free to call me at [phone]. Thank you for the referral of this patient. Sincerely, Aftab Mendez, PT, <Electronically signed by Aftab Mendez PT, ATC> 12/05/16 1100 CC: Nik valdes DPM; Denisa Macias DO [facility] Signed 09-Oct-2016 Inital Evaluation (1) - PT Result: Comments: See Note; NOTES: [facility] Physical Therapy [facility] [address] [place] [address] Fax REHABILITATION SERVICES INITIAL EVALUATION MR#: [id number] Acct: [id number] Name: YOHANNES CADET Rep #: [id number] : 1945 71 From: Aftab Mendez PT, ATC Referring Dr.: Nik Ch DPM Status: REG RCR Insurance: [facility] C[facility] PART A B WPS [employer] FOR LIFE Patient's Visit Information YOHANNES CADET [...] to be FAXED BACK to us at [phone] for Medicare purposes. Please let me know if there are questions or concerns regarding this plan of care. Physician Signature: Date: <Electronically signed by Aftab Mendez PT, ATC> 1001 CC: Nik Ch DPM; Denisa Macias DO [facility] Signed For Medicare only, by signing this I certify the plan of care. Physicians Signature Date 21-May-2016 Brain/Head without Contrast Result: Comments: See Note; NOTES: [facility] Imaging Services [address] [place] [address] Verdamadan 4d Brain/Head without Contrast MR#: [id number] Acct: [id number] Name: YOHANNES CADET Rep #: [id number] : 1945 M 70 From: Sincere Solorio DO PCP: Denisa Macias DO Status: REG CLI Study: Brain/Head without Contrast Date of Exam: 05/21/16 Exam# [id number] Ordering Dr: Denisa Macias DO STUDY: CT [...] at 14:26 EST Tel , Service support [phone], CC: Denisa Macias DO Evaporator Supervisor: Signed 14-Nov-2015 Echocardiogram Complete Result: Comments: See Note; NOTES: [facility] Cardiovascular Services [address] [address] Echo Complete 11/14/15 1303 MR#: [id number] Acct: [id number] Name: YOHANNES CADET Rep #: [id number] : 1945 70 From: Layo Raymond MD [...] 10/24 05/10 1303 Date Transcribed: 11/14/15 1649 Evaporator Supervisor: Signed 14-Nov-2015 Chest WITH Contrast Result: Comments: See Note; NOTES: [facility] Imaging Services [address] [place] [address] Verdana 4d Chest WITH Contrast MR#: [id number] Acct: [id number] Name: YOHANNES CADET Rep #: [id number] : 1945 M 70 From: Asia Peres MD PCP: Denisa Macias DO Status: REG CLI Study: Chest WITH Contrast Date of Exam: 11/14/15 Exam# [id number] Ordering Dr: Denisa Macias DO S TUDY: CT CHEST WITH CONTRAST REASON FOR [...] MD at 2:25 EDT , Service support [phone], CC: Denisa Macias DO Evaporator Supervisor: Signed 24-Oct-2015 ELECTROCARDIOGRAM, COMPLETE (ECG) (94659) Comments: sinus gabby - no acute chg - same as old and on BB Result: [MEASUREMENTS ANALYSIS] Date of Test: 10/24/2015 09:30:26; Heart Rate: 55; MO Interval: 184; QRS: 105; QT Interval: 404; Corrected QT Interval (QTc): 396; P Wave Concord: 26; QRS Wave Concord: 27; T Wave Concord : 34; Blood Pressure: 138/70 [ECG DIAGNOSTIC STATEMENTS] Date of Test: 10/24/2015 09:30:26; Summary: Sinus Bradycardia WITHIN NORMAL LIMITS 29-Sep-2015 Knee 4 or More Views Result: Comments: See Note; NOTES: [facility] Imaging Services [address] [place] [address] Verdana 4d Knee 4 or More Views MR#: [id number] Acct: [id number] Name: YOHANNES CADET Rep #: [id number] : 1945 70 From: Tripp Miller MD PCP: Denisa Macias DO Status: REG CLI Study: Knee 4 or More Views Date of Exam: 09/29/15 Exam# [id number] Ordering Dr: Carrol Bautista DO STUDY: X-RAY [...] FACR at 9:18 EDT , Service support [phone], RAD/Knee 4 or More Views IMPRESSION: Moderate arthrosis of the patellofemoral joint Electronically Signed: Tripp Miller MD, FACR at 9:18 EDT , Service support , CC: Carrol Kirkpatrick DO; Denisa Macias DO Evaporator Supervisor: Signed 27-Oct-2013 PT Discharge Summary Result: Comments: See Note; NOTES: [facility] Physical Therapy [facility] [address] [place] [address]. [address] [place] [address] Fax REHABILITATION SERVICES DISCHARGE SUMMARY MR#: [id number] Acct: [id number] Name: YOHANNES CADET Rep #: [id number] : 1945 68 From: Baljit Silva Referring [...] referral. Baljit Silva, PT T: GI JOB: [id number] <Electronically signed by Baljit pantoja > 10/27/13 0758 CC: Signed 27-Jul-2013 Inital Evaluation - PT Result: Comments: See Note; NOTES: [facility] Physical Therapy [facility] [address] [place], [place] [address] Fax REHABILITATION SERVICES INITIAL EVALUATION MR#: [id number] Acct: [id number] Name: YOHANNES CADET Rep #: [id number] : 1945 67 From: Baljit Silva Referring Dr.: Denisa Macias DO Status: DIS RCR Insurance: [place] [employer] PART A B Eval Date: [facility] Kimelt[employer] FOR [employer] DATE OF SERVICE: 07/20/2013 REFERRING PHYSICIAN: Dr. 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 His goals are to find [...] We discussed with patient possibly using the sluz-dai-kblniaj orthotics before he considers fabricated orthotics due to cost. Uzair Silva PT T: GI JOB: [id number] <Electronically signed by Baljit Silva > 07/27/13 1802 CC: Signed For Medicare only, by signing this I c ertify the plan of care. Physicians Signature Date 09-Jul-2013 Hip min 2 Views Result: Comments: See Note; NOTES: [facility] Imaging Services [address] [place] [address] Radiology Report MR#: [id number] Acct: [id number] Name: YOHANNES CADET Rep #: [id number] : 1945 M 67 From: Jakob Hunt MD PCP: Denisa Macias DO Status: REG CLI Study: Hip min 2 Views Date of Exam: 07/09/13 Exam# [id number] Ordering Dr: Denisa Macias DO STUDY : [...] Jakob Hunt MD at 14:44 EDT Tel [phone], Service support [phone], Fax CC: Denisa Macias DO Evaporator Supervisor: Signed 09-Jul-2013 Pelvis 1 or 2 Views Result: Comments: See Note; NOTES: [facility] Imaging Services [address] [place] [address] Radiology Report MR#: [id number] Acct: [id number] Name: YOHANNES CADET Rep #: [id number] : 1945 M 67 From: Jakob Hunt MD PCP: Denisa Macias DO Status: REG CLI Study: Pelvis 1 or 2 Views Date of Exam: 07/09/13 Exam# [id number] Ordering Dr: Denisa Macias DO S TUDY: [...] Jakob Hunt MD at 13:32 EDT Tel [phone], Service support [phone], CC: Denisa Macias DO Evaporator Supervisor: Signed 09-Jul-2013 EKG (06582) Comments: nsr no acute chg - ant leads are old Result: [MEASUREMENTS ANALYSIS] Date of Test: 07/09/2013 08:48:02; Heart Rate: 57; MO Interval: 164; QRS: 106; QT Interval: 408; Corrected QT Interval (QTc): 403; P Wave Concord: 25; QRS Wave Concord: 60; T Wave Concord : 62; Blood Pressure: 138/68 [ECG DIAGNOSTIC STATEMENTS] Date of Test: 07/09/2013 08:48:02; Summary: Sinus Bradycardia - Negative precordial T-waves. WITHIN NORMAL LIMITS Immunization Name Dates Details Influenza (3 years and up) on: 05-Jan-2008 Family History Unknown Family Member Name Dates Details Father Comments: [place]/CVA at 84 Status: Active Social History Name [...] kg/m2 Body Surface Area Calculated 2.26 m2 18-Uis-133007:47 Pulse 64 /min Comments: Pattern: Regular Respiration [...] kg/m2 Body Surface Area Calculated 2.26 m2 6-Utj-884028:07 Pulse 62 /min Comments: Pattern: Regular Respiration [...] kg/m2 Body Surface Area Calculated 2.27 m2 6-Mco-036247:15 Pulse 78 /min Comments: Pattern: Regular Respiration [...] Surface Area Calculated 2.27 m2 :15 Comments: Lance at [facility] 2013hearing -wnl Pulse 57 /min Comments: [...] Calculated 2.28 m2 Head Circumference 0.00 cm 7-Van-52241:14 Pulse 64 /min Comments: Pattern: Regular Respiration [...] Description Value Details :59 HgA1C , Office (99932) HgA1C , Office 7.2 % (Abnormal) Range: 4.6 - 7.1 :59 Blood Glucose , Office (12924) Blood Glucose , Office 128 (Normal) 3-Odg-186649:20 Microscopic Examination Comments: PATIENT WAS FASTINGPERFORMED BY: PuzzleSocial[address] [id number] BY: Recovers70 [employer] cTraderGlobili [place] [id number] Bacteria None seen (Normal) Mucus Threads Present (Normal) Epithelial Cells (non renal) None seen {/hpf} (Normal) Range: 0 - 10 RBC None seen {/hpf} (Normal) Range: 0 - 2 WBC 0-5 {/hpf} (Normal) Range: 0 - 5 5-Zqx-562453:20 CALCIFIDIOL (48478) VIT D Comments: PATIENT WAS FASTINGPERFORMED BY: PuzzleSocial[address] [id number] BY: Recovers70 [facility] [id number] 25 Vitamin D, 25-Hydroxy 55.7 ng/mL (Normal) Range: 30.0-100.0 Comments: Vitamin D deficiency has been defined by the Reva ofMedicine and an Endocrine Society practice guideline as alevel of serum 25-OH vitamin D less than 20 ng/mL (1,2).The Endocrine Society went on to further define vitamin Dinsufficiency as a level between 21 and 29 ng/mL (2).1. IOM (Reva of Medicine). 2010. Dietary reference intakes for calcium and D. [place]: The National Academies Press.2. Charles MF, Raissa OCONNELL, Nirmala ALBERT, et al. Evaluation, treatment, and prevention of vitamin D deficiency: an Endocrine Society clinical practice guideline. JCEM. 2010; 96(7):1911-30. 1-Qmx-713626:20 TSH (90521) Comments: PATIENT WAS FASTINGPERFORMED BY: PuzzleSocialton1447 [facility] [id number] BY: Bilbus [facility] [id number] TSH 2.360 {uIU/mL} (Normal) Range: 0.450-4.500 7-Iul-744872:20 URINALYSIS, W/ MICRO Comments: PATIENT WAS FASTINGPERFORMED BY: [employer] (Vill[employer])1447 [facility] [id number] BY: [facility]EC[facility] [id number] (96402) Microscopic Examination See below: (Normal) Comments: Microscopic was indicated and was performed. Microscopic Examination MICRON (Normal) Comments: Microscopic follows if indicated. Nitrite, Urine Negative (Normal) Urobilinogen,Semi-Qn 0.2 mg/dL (Normal) Range: 0.2-1.0 Bilirubin Negative (Normal) Occult Blood Negative (Normal) Ketones Negative (Normal) Glucose Negative (Normal) Protein Negative (Normal) WBC Esterase Negative (Normal) Appearance Clear (Normal) Urine-Color Yellow (Normal) pH 5.0 (Normal) Range: 5.0-7.5 Specific Hope 1.019 (Normal) Range: 1.005-1.030 4-Wlg-047348:20 MICROALBUMIN: CREATININE Comments: PATIENT WAS FASTINGPERFORMED BY: PuzzleSocialton1447 [facility] [id number] BY: Web[employer] GroupCone Health Women'S Hospitalin [place] [id number] RATIO (16925) AND (96472) Alb/Creat Ratio <2.4 {mg/g_creat} (Normal) Range: 0.0-30.0 Comments: Normal: 0.0 - 30.0 Albuminuria: 31.0 - 300.0 Clinical albuminuria: >300.0 Albumin, Urine <3.0 ug/mL (Normal) Creatinine, Urine 123.5 mg/dL (Normal) 6-Syz-721410:20 METABOLIC PANEL, Comments: PATIENT WAS FASTINGPERFORMED BY: [facility] [address] [id number] BY: [facility] Myfblh2760 [facility] [id number] COMPREHENSIVE (59010) ALT (SGPT) 22 [iU]/L (Normal) Range: 0-44 [...] 8-27 Glucose 156 mg/dL (Abnormal) Range: 65-99 2-Xyg-191569:20 CBC W/AUTO DIFF WBC Comments: PATIENT WAS FASTINGPERFORMED BY: Order Mapper[address] [id number] BY: [place] 0436070 [facility] [id number] (22762) Immature Grans (Abs) 0.0 {x10E3/uL} (Normal) Range: [...] 4.14-5.80 WBC 5.8 {x10E3/uL} (Normal) Range: 3.4-10.8 0-Qyj-228177:20 LIPOPROTEIN, BLD, BY NMR Comments: PATIENT WAS FASTINGPERFORMED BY: Order Mapper[address] [id number] BY: Order MapperInspira Medical Center VinelandSpizes5882 [facility] [id number] (52948) LP-IR Score 66 (Abnormal) Comments: INSULIN RESISTANCE MARKER <--Insulin Sensitive Insulin Resistant--> Percentile in Reference PopulationInsulin Resistance ScoreLP-IR Score Low 25th 50th 75th High <27 27 45 63 >63LP-IR Score is inaccurate if patient is non-fasting. .The LP-IR score is a laboratory developed i [facility] that has beenassociated with insulin resistance [...] were developed and their performance characteristicsdetermined by [employer]. These assays have not been cleared by [...] 1600 - 2000 Very High > 2000 85-Mud-680459:40 HgA1C , Office (02669) HgA1C , Office 6.6 % (Normal) Range: 4.6 - 7.1 99-Aju-772818:40 Blood Glucose , Office (39259) Blood Glucose , Office 75 (Normal) 07-Xvt-069548:20 COLON BIOPSY (CHOOSE See Note (Normal) Comments: [facility] [address] [place], [place], [address] SITE) Comments: Patient: YOHANNES CADET : 1945 (72/M) Acct Num: [id number] Phys: Mg Norman Unit Num: [id number] Loc: LABSPEC Specimen: [id number] Received: 09/20/171532 Spec Type: C JUJU BX TISSUES TISSUES: Rectum, NOS GROSS DESCRIPTION Received in fixative is one container labeled with the patient's name and designated rectal polyp. The specimen predominantly consists of fecal material mixed with possible soares soft tissue, measuring in aggregate 2.5 x 0.6 x0.1 cm. The specimen is totally submitted in one cassette. BIJU:scott 09/23/17 TC: cannot code CPT: 14940 HEADER OPERATION: Colonoscopy with polypectomy PRE-OP DIAGNOSIS: Rectal bleeding TISSUE SUBMITTED: Rectal polyp MICROSCOPIC DESCRIPTION Slides are reviewed. MICROSCOPIC DIAGNOSIS Rectal polyp, polypectomy: Fragments of fecal material. Colonic mucosal tissue is not identified. BIJU:scott 09/24/18 Signed Magdy Purvis 09/24/17 <signature on file> 56-Xcp-262024:08 Microscopic Examination Comments: PATIENT WAS FASTINGPERFORMED BY: GUICHO [facility] Siwzqa3096 [address] RoadDublin [place] [id number] Bacteria None seen (Normal) Mucus Threads Present (Normal) Epithelial Cells (non renal) None seen {/hpf} (Normal) Range: 0 - 10 RBC None seen {/hpf} (Normal) Range: 0 - 2 WBC 0-5 {/hpf} (Normal) Range: 0 - 5 :08 T4, FREE (THYROXINE) (35739) Comments: PATIENT WAS FASTINGPERFORMED BY: [facility]The [facility] Lvbxuc8381 Rosado RoadDublin [place] [id number] T4,Free(Direct) 1.27 ng/dL (Normal) Range: 0.82-1.77 :08 T3, FREE (TRIDOTHYRONINE) (01143) Comments: PATIENT WAS FASTINGPERFORMED BY: DiscountDocThe [facility] Llvdcr9[address] [facility] HospitalDublin [place] [id number] Triiodothyronine,Free,Serum 2.7 pg/mL (Normal) Range: 2.0-4.4 :08 CALCIFIDIOL (89532) VIT D 25 Comments: PATIENT WAS FASTINGPERFORMED BY: [facility] Nnyygw4878 [address] RoadDublin [place] [id number] Vitamin D, 25-Hydroxy 57.4 ng/mL (Normal) Range: 30.0-100.0 Comments: Vitamin D deficiency has been defined by the Reva ofWayne Hospitalcine and an Endocrine Society practice guideline as alevel of serum 25-OH vitamin D less than 20 ng/mL (1,2).The Endocrine Society went on to further define vitamin Dinsufficiency as a level between 21 and 29 ng/mL (2).1. IOM (Reva of Medicine). 2010. Dietary reference intakes for calcium and D. [place]: The National Academies Press.2. Charles MF, Raissa NC, Nirmala ALBERT, et al. Evaluation, treatment, and prevention of vitamin D deficiency: an Endocrine Society clinical practice guideline. JCEM. 2010; 96(7):1911-30. :08 TSH (63367) Comments: PATIENT WAS FASTINGPERFORMED BY: [facility]6370 [facility] [id number] TSH 3.370 {uIU/mL} (Normal) Range: 0.450-4.500 94-Jcu-609587:08 URINALYSIS, W/ MICRO (88326) Comments: PATIENT WAS FASTINGPERFORMED BY: [facility]6370 [facility] [id number] Microscopic Examination See below: (Normal) Comments: Microscopic was indicated and was performed. Microscopic Examination MICRON (Normal) Comments: Microscopic follows if indicated. Nitrite, Urine Negative (Normal) Urobilinogen,Semi-Qn 0.2 mg/dL (Normal) Range: 0.2-1.0 Bilirubin Negative (Normal) Occult Blood Negative (Normal) Ketones Negative (Normal) Glucose Negative (Normal) Protein Negative (Normal) WBC Esterase Negative (Normal) Appearance Clear (Normal) Urine-Color Yellow (Normal) pH 5.0 (Normal) Range: 5.0-7.5 Specific Hope 1.026 (Normal) Range: 1.005-1.030 10-Hlz-401666:08 MICROALBUMIN: CREATININE RATIO Comments: PATIENT WAS FASTINGPERFORMED BY: [facility]6370 [facility] [id number] (95635) AND (01717) Alb/Creat Ratio 1.3 {mg/g_creat} (Normal) Range: 0.0-30.0 Albumin, Urine 3.1 ug/mL (Normal) Creatinine, Urine 237.2 mg/dL (Normal) 97-Wpl-603299:08 METABOLIC PANEL, COMPREHENSIVE Comments: PATIENT WAS FASTINGPERFORMED BY: [facility]6370 [facility] [id number] (17437) ALT (SGPT) 17 [iU]/L (Normal) Range: 0-44 [...] 8-27 Glucose 142 mg/dL (Abnormal) Range: 65-99 36-Ycf-846202:08 CBC W/AUTO DIFF WBC (02294) Comments: PATIENT WAS FASTINGPERFORMED BY: [facility] Djmnlu5171 [facility] [id number] Immature Grans (Abs) 0.0 {x10E3/uL} (Normal) Range: [...] {x10E3/uL} (Normal) Range: 3.4-10.8 :08 LIPID PANEL (47191) Comments: PATIENT WAS FASTINGPERFORMED BY: GUICHO [facility] Tggucl5839 [facility] [id number] LDL/HDL Ratio 1.2 {ratio} (Normal) Range: 0.0-3.6 [...] (Normal) Range: 100-199 :08 HgA1C , Office (98139) HgA1C , Office 6.9 % (Normal) Range: 4.6 - 7.1 :08 Blood Glucose , Office (80838) Blood Glucose , Office 123 (Normal) 0-Mna-287362:23 Blood Glucose , Office (49572) Blood Glucose , Office 69 (Normal) :23 HgA1C , Office (30944) HgA1C , Office 7.1 % (Normal) Range: 4.6 - 7.1 :23 Blood Glucose , Office (85197) Blood Glucose , Office 84 (Normal) 99-Vrg-838201:06 Microscopic Examination Comments: PATIENT WAS FASTINGPERFORMED BY: LabCoInspira Medical Center VinelandIgrbcb7579 [facility] [id number] Bacteria Few (Normal) Mucus Threads Present (Normal) Epithelial Cells (non renal) None seen {/hpf} (Normal) Range: 0 - 10 RBC 0-2 {/hpf} (Normal) Range: 0 - 2 WBC 0-5 {/hpf} (Normal) Range: 0 - 5 6-Jmm-004830:25 Methymalonic Acid, Serum Comments: PATIENT NOT FASTINGPERFORMED BY: Order Mapper Idiaci5552 [facility] [id number] BY: DiscountDoc[address] [id number] (46955) Methylmalonic Acid, Serum 586 nmol/L (Abnormal) Range: 0-378 4-Axi-985882:25 METABOLIC PANEL, Comments: PATIENT NOT FASTINGPERFORMED BY: Order Mapper Selbsw2304 [facility] [id number] BY: Order Mapper[address] [id number] Inf ormation: [id number], [id number] [facility] (96903) ALT (SGPT) 11 [iU]/L (Normal) Range: 0-44 [...] Glucose, Serum 153 mg/dL (Abnormal) Range: 65-99 3-Val-913982:25 CBC (AUTO) (42136) Comments: PATIENT NOT FASTINGPERFORMED BY: Bilbus [facility] [id number] BY: Order Mapper[address] [id number] Platelets 213 {x10E3/uL} (Normal) Range: 150-379 RDW 14.0 % (Normal) Range: 12.3-15.4 MCHC 33.2 g/dL (Normal) Range: 31.5-35.7 MCH 27.5 pg (Normal) Range: 26.6-33.0 MCV 83 fL (Normal) Range: 79-97 Hematocrit 38.2 % (Normal) Range: 37.5-51.0 Hemoglobin 12.7 g/dL (Normal) Range: 12.6-17.7 RBC 4.62 {x10E6/uL} (Normal) Range: 4.14-5.80 WBC 4.6 {x10E3/uL} (Normal) Range: 3.4-10.8 0-Gau-459520:25 TSH (27458) Comments: PATIENT NOT FASTINGPERFORMED BY: Recovers70 [facility] [id number] BY: Order Mapper[address] [id number] TSH 3.040 {uIU/mL} (Normal) Range: 0.450-4.500 3-Rbq-393882:25 VITAMIN B-12 (CYANOCOBALAMIN) Comments: PATIENT NOT FASTINGPERFORMED BY: [employer] [facility] [id number] BY: [facility] Stockbirug7475 [facility] [id number] (51508) Vitamin B12 227 pg/mL (Normal) Range: 211-946 :25 PSA (PROSTATE SPECIFIC Comments: PATIENT NOT FASTINGPERFORMED BY: [facility] Xmzcms8234 [facility] Centerblin [place] [id number] BY: LabCoMichelle Ville 582677 [facility] [id number] ANTIGEN) (V76.44) Prostate Specific Ag, 2.0 ng/mL (Normal) Range: 0.0-4.0 Serum Comments: Access ClosureIA methodology. .According to the [place] U[employer] Association, Serum PSA shoulddecrease and remain at undetectable levels after radicalprostatectomy. The AUA defines biochemical recurrence as an initialPSA value 0.2 ng/mL or greater followed by a subsequent confirmatoryPSA value 0.2 ng/mL or greater.Values obtained with d ifferent assay methods or kits cannot be usedinterchangeably. Results cannot be interpreted as absolute evidenceof the presence or absence of malignant disease. :06 CALCIFIDIOL (66965) VIT D 25 Comments: PATIENT WAS FASTINGPERFORMED BY: LabCoInspira Medical Center VinelandUylzrx5602 [facility] [id number] Vitamin D, 25-Hydroxy 42.4 ng/mL (Normal) Range: 30.0-100.0 Comments: Vitamin D deficiency has been defined by the Reva ofMedicine and an Endocrine Society practice guideline as alevel of serum 25-OH vitamin D less than 20 ng/mL (1,2).The Endocrine Society went on to further define vitamin Dinsufficiency as a level between 21 and 29 ng/mL (2).1. IOM (Reva of Medicine). 2010. Dietary reference intakes for calcium and D. [place]: The National Academies Press.2. Charles MF, Raissa NC, Nirmala ALBERT, et al. Evaluation, treatment, and prevention of vitamin D deficiency: an Endocrine Society clinical practice guideline. JCEM. 2010; 96(7):1911-30. :06 TSH (15951) Comments: PATIENT WAS FASTINGPERFORMED BY: [facility]DocSher[facility]6370 [facility] [id number] TSH 3.460 {uIU/mL} (Normal) Range: 0.450-4.500 81-Sut-133904:06 URINALYSIS, W/ MICRO (39981) Comments: PATIENT WAS FASTINGPERFORMED BY: [facility]6370 [facility] [id number] Microscopic Examination See below: (Normal) Comments: Microscopic was indicated and was performed. Microscopic Examination MICRON (Normal) Comments: Microscopic follows if indicated. Nitrite, Urine Negative (Normal) Urobilinogen,Semi-Qn 0.2 mg/dL (Normal) Range: 0.2-1.0 Bilirubin Negative (Normal) Occult Blood Negative (Normal) Ketones Negative (Normal) Glucose Negative (Normal) Protein Negative (Normal) WBC Esterase Negative (Normal) Appearance Clear (Normal) Urine-Color Yellow (Normal) pH 5.0 (Normal) Range: 5.0-7.5 Specific Hope 1.020 (Normal) Range: 1.005-1.030 03-Oyc-447532:06 MICROALBUMIN: CREATININE RATIO Comments: PATIENT WAS FASTINGPERFORMED BY: [facility] [facility] [id number] (16272) AND (55735) Microalb/Creat Ratio <2.4 {mg/g_creat} (Normal) Range: 0.0-30.0 Microalbumin, Urine <3.0 ug/mL (Normal) Creatinine, Urine 127.3 mg/dL (Normal) 64-Arf-692112:06 METABOLIC PANEL, COMPREHENSIVE Comments: PATIENT WAS FASTINGPERFORMED BY: [facility] [facility] [id number] (40214) ALT (SGPT) 15 [iU]/L (Normal) Range: 0-44 [...] Glucose, Serum 136 mg/dL (Abnormal) Range: 65-99 18-Ozl-860632:06 LIPID PANEL (71968) Comments: PATIENT WAS FASTINGPERFORMED BY: TribeHiredCoVesocclude MedicalECU [facility] [id number] LDL/HDL Ratio 1.5 {ratio_units} (Normal) Range: 0.0-3.6 Comments: LDL/HDL Ratio Men Women 1/2 Avg.Risk 1.0 1.5 Av g.Risk 3.6 3.2 2X Avg.Risk 6.2 5.0 3X Avg.Risk 8.0 6.1 LDL Cholesterol Calc 63 mg/dL (Normal) Range: 0-99 VLDL Cholesterol Ezequiel 25 mg/dL (Normal) Range: 5-40 HDL Cholesterol 42 mg/dL (Normal) Triglycerides 126 mg/dL (Normal) Range: 0-149 Cholesterol, Total 130 mg/dL (Normal) Range: 100-199 89-Ibd-538467:06 CBC W/AUTO DIFF WBC (96812) Comments: PATIENT WAS FASTINGPERFORMED BY: [employer] LabCoJoppel70 [employer] / cTraderECU Health Bertie Hospital [id number] Immature Grans (Abs) 0.0 {x10E3/uL} (Normal) Range: [...] (Normal) Range: 3.4-10.8 :32 HgA1C , Office (73002) HgA1C , Office 7.3 % (Abnormal) Range: 4.6 - 7.1 :32 Blood Glucose , Office (52060) Blood Glucose , Office 185 (Normal) :33 ALDOSTERONE (47422) Comments: PATIENT NOT FASTINGPERFORMED BY: LabCo[address] [id number] Aldosterone 3.8 ng/dL (Normal) Range: 0.0-30.0 Comments: This test was developed and its performance characteristicsdetermined by [facility]. It has not been cleared or approvedby the Food and Drug Administration. 4-Liz-323459:33 RENIN (46002) Comments: PATIENT NOT FASTINGPERFORMED BY: DiscountDoc[address] [id number] Renin Activity, Plasma 0.402 {ng/mL/hr} Range: 0.167-5.380 (Normal) Comments: This test was developed and its performance characteristicsdetermined by [facility]. It has not been cleared or approvedby the Food and Drug Administration. :31 METANEPHRINES - URINE (64728) Comments: PATIENT NOT FASTINGPERFORMED BY: Order Mapper[address] [id number] Metanephrine, U,24hr 238 {ug/24_hr} (Normal) Range: 45-290 Comments: (Hypertensive) >17 years 11 months: 35 - 460 Metanephrine, Ur 119 ug/L (Normal) Normetanephr.,U,24h 370 {ug/24_hr} (Normal) Range: 82-500 Comments: (Hypertensive) >17 years 11 months: 110 - 1050 Normetanephrine, Ur 185 ug/L (Normal) :31 CATECHOLAMINES TOTAL, URINE Comments: PATIENT NOT FASTINGPERFORMED BY: [address] [id number] Information: START 09/25/2016@447AM (93758) Dopamine, Ur, 24hr 280 {ug/24_hr} (Normal) Range: 0-510 Dopamine, Urine 140 ug/L (Normal) Norepinephrine,U,24h 42 {ug/24_hr} (Normal) Range: 0-135 Norepinephrine, Ur 21 ug/L (Normal) Epinephrine, U, 24hr 4 {ug/24_hr} (Normal) Range: 0-20 Epinephrine, Urine 2 ug/L (Normal) :31 URINE VMA (58302) Comments: PATIENT NOT FASTINGPERFORMED BY: LabFrank Ville [address] [facility] [id number] VMA, Urine, 24hr 3.4 {mg/24_hr} (Normal) Range: 0.0-7.5 Comments: This test was developed and its performance characteristicsdetermined by [facility]DocThe [facility]. It has not been cleared or approvedby the Food and Drug Administration. VMA, Urine 1.7 mg/L (Normal) :05 Microscopic Examination Comments: PATIENT WAS FASTINGPERFORMED BY: [facility] [facility] [id number] Bacteria None seen (Normal) Mucus Threads Present (Normal) Epithelial Cells (non renal) None seen {/hpf} (Normal) Range: 0 - 10 RBC 0-2 {/hpf} (Normal) Range: 0 - 2 WBC 0-5 {/hpf} (Normal) Range: 0 - 5 :05 LIPID PANEL (26926) Comments: PATIENT WAS FASTINGPERFORMED BY: [facility]6[address] [facility] [id number] LDL/HDL Ratio 1.3 {ratio_units} (Normal) Range: 0.0-3.6 [...] (Normal) Range: 100-199 :05 URINALYSIS, W/ MICRO (85831) Comments: PATIENT WAS FASTINGPERFORMED BY: [facility] [facility] [id number] Microscopic Examination See below: (Normal) Comments: Microscopic was indicated and was performed. Microscopic Examination MICRON (Normal) Comments: Microscopic follows if indicated. Nitrite, Urine Negative (Normal) Urobilinogen,Semi-Qn 0.2 mg/dL (Normal) Range: 0.2-1.0 Bilirubin Negative (Normal) Occult Blood Negative (Normal) Ketones Negative (Normal) Glucose Negative (Normal) Protein Negative (Normal) WBC Esterase Negative (Normal) Appearance Clear (Normal) Urine-Color Yellow (Normal) pH 5.5 (Normal) Range: 5.0-7.5 Specific Hope 1.024 (Normal) Range: 1.005-1.030 95-Fqm-186894:05 MICROALBUMIN: CREATININE RATIO Comments: PATIENT WAS FASTINGPERFORMED BY: Recovers70 [employer] [facility] HospitalBankBazaar.comECU Health [facility] Hospital [id number] (12579) AND (48684) Microalb/Creat Ratio <1.7 {mg/g_creat} (Normal) Range: 0.0-30.0 Microalbumin, Urine <3.0 ug/mL (Normal) Creatinine, Urine 171.8 mg/dL (Normal) :05 METABOLIC PANEL, COMPREHENSIVE Comments: PATIENT WAS FASTINGPERFORMED BY: [employer]6370 [employer] / cTraderECU Health [facility] Hospital [id number] (44002) ALT (SGPT) 15 [iU]/L (Normal) Range: 0-44 [...] Glucose, Serum 117 mg/dL (Abnormal) Range: 65-99 59-Jap-845478:05 CBC W/AUTO DIFF WBC (79998) Comments: PATIENT WAS FASTINGPERFORMED BY: LabCoInspira Medical Center VinelandPpbnss1241 [facility] [id number] Immature Grans (Abs) 0.0 {x10E3/uL} (Normal) Range: [...] 4.14-5.80 WBC 4.9 {x10E3/uL} (Normal) Range: 3.4-10.8 12-Nfc-387504:05 TSH (53771) Comments: PATIENT WAS FASTINGPERFORMED BY: Lab[facility] Xjjfjp0412 Rosado RoadDublin [place] [id number] TSH 3.460 {uIU/mL} (Normal) Range: 0.450-4.500 :05 T4, FREE (THYROXINE) (24358) Comments: PATIENT WAS FASTINGPERFORMED BY: [facility] Evsjdf9793 Rosado RoadDublin [place] [id number] T4,Free(Direct) 1.34 ng/dL (Normal) Range: 0.82-1.77 :05 T3, FREE (TRIDOTHYRONINE) (42723) Comments: PATIENT WAS FASTINGPERFORMED BY: [facility] Tsehzq0298 Rosado RoadDublin [place] [id number] Triiodothyronine,Free,Serum 3.0 pg/mL (Normal) Range: 2.0-4.4 :05 CALCIFIDIOL (49989) VIT D 25 Comments: PATIENT WAS FASTINGPERFORMED BY: [facility] Fmhbbw3886 [address] [facility] HospitalDublin [place] [id number] Vitamin D, 25-Hydroxy 46.6 ng/mL (Normal) Range: 30.0-100.0 Comments: Vitamin D deficiency has been defined by the Reva ofMedicine and an Endocrine Society practice guideline as alevel of serum 25-OH vitamin D less than 20 ng/mL (1,2).The Endocrine Society went on to further define vitamin Dinsufficiency as a level between 21 and 29 ng/mL (2).1. IOM (Reva of Medicine). 2010. Dietary reference intakes for calcium and D. [place]: The National Academies Press.2. Charles MF, Raissa NC, Nirmala ALBERT, et al. Evaluation, treatment, and prevention of vitamin D deficiency: an Endocrine Society clinical practice guideline. JCEM. 2010; 96(7):1911-30. :42 HgA1C , Office (45515) HgA1C , Office 6.6 % (Normal) Range: 4.6 - 7.1 :42 Blood Glucose , Office (97567) Blood Glucose , Office 117 (Normal) :59 HgA1C , Office (45563) HgA1C , Office 6.8 % (Normal) Range: 4.6 - 7.1 :59 Blood Glucose , Office (91075) Blood Glucose , Office 237 (Normal) :52 Rapid Flu (70644 x 2) Influenza A Ag neg (Normal) :19 HgA1C , Office (13380) HgA1C , Office 6.6 % (Normal) Range: 4.6 - 7.1 :19 Blood Glucose , Office (28133) Blood Glucose , Office 171 (Normal) :43 Microscopic Examination Comments: PATIENT WAS FASTINGPERFORMED BY: [employer] [facility] [id number] Bacteria Few (Normal) Mucus Threads Present (Normal) Epithelial Cells (non renal) 0-10 {/hpf} (Normal) Range: 0 - 10 RBC 0-2 {/hpf} (Normal) Range: 0 - 2 WBC 0-5 {/hpf} (Normal) Range: 0 - 5 :53 Serum Creatinine AND GFR Comments: [facility] Gurrkptdlf[address] [place], [address] EST GFR - AA 83 mL/min (Normal) Comments: GFR Calc EST GFR 69 mL/min (Normal) Comments: Non- GFR Calc CREAT,SERUM 1.12 mg/dL (Normal) Range: 0.70-1.30 Comments: The validity of the calculated GFR AND GFRAA in patients over70 years has not been determined. Clinical correlation isessential. :43 CALCIFIDIOL (82949) VIT D 25 Comments: PATIENT WAS FASTINGPERFORMED BY: Order Mapper Ycxzss7992 [facility] [id number] Vitamin D, 25-Hydroxy 55.4 ng/mL (Normal) Range: 30.0-100.0 Comments: Vitamin D deficiency has been defined by the Reva ofMedicine and an Endocrine Society practice guideline as alevel of serum 25-OH vitamin D less than 20 ng/mL (1,2).The Endocrine Society went on to further define vitamin Dinsufficiency as a level between 21 and 29 ng/mL (2).1. IOM (Reva of Medicine). 2010. Dietary reference intakes for calcium and D. [place]: The National AcademJamglue Press.2. Charles MF, Raissa NC, Nirmala ALBERT, et al. Evaluation, treatment, and prevention of vitamin D deficiency: an Endocrine Society clinical practice guideline. JCEM. 2010; 96(7):1911-30. 4-Usu-013758:43 URINALYSIS, W/ MICRO (61717) Comments: PATIENT WAS FASTINGPERFORMED BY: [employer] [place] [id number] Microscopic Examination See below: (Normal) Comments: Microscopic was indicated and was performed. Microscopic Examination MICRON (Normal) Comments: Microscopic follows if indicated. Nitrite, Urine Negative (Normal) Urobilinogen,Semi-Qn 0.2 mg/dL (Normal) Range: 0.2-1.0 Bilirubin Negative (Normal) Occult Blood Negative (Normal) Ketones Negative (Normal) Glucose Negative (Normal) Protein Negative (Normal) WBC Esterase Negative (Normal) Appearance Clear (Normal) Urine-Color Yellow (Normal) pH 5.5 (Normal) Range: 5.0-7.5 Specific Hope 1.022 (Normal) Range: 1.005-1.030 2-Ksw-263784:43 MICROALBUMIN: CREATININE RATIO Comments: PATIENT WAS FASTINGPERFORMED BY: [facility]cted Sports VenturesECU Health [facility] Hospital [id number] (09849) AND (67642) Microalb/Creat Ratio <2.4 {mg/g_creat} (Normal) Range: 0.0-30.0 Microalbumin, Urine <3.0 ug/mL (Normal) Creatinine, Urine 122.5 mg/dL (Normal) :43 METABOLIC PANEL, COMPREHENSIVE Comments: PATIENT WAS FASTINGPERFORMED BY: [facility] [id number] (04798) ALT (SGPT) 12 [iU]/L (Normal) Range: 0-44 [...] Glucose, Serum 120 mg/dL (Abnormal) Range: 65-99 9-Utg-681439:43 TSH (26336) Comments: PATIENT WAS FASTINGPERFORMED BY: [employer]6370 [facility] [id number] TSH 4.010 {uIU/mL} (Normal) Range: 0.450-4.500 4-Gym-390450:43 LIPID PANEL (80064) Comments: PATIENT WAS FASTINGPERFORMED BY: Recovers70 [facility] [id number] LDL/HDL Ratio 1.2 {ratio_units} (Normal) Range: 0.0-3.6 [...] Cholesterol, Total 117 mg/dL (Normal) Range: 100-199 6-Iqj-499951:43 CBC W/AUTO DIFF WBC (46265) Comments: PATIENT WAS FASTINGPERFORMED BY: LabCoInspira Medical Center VinelandWlbypq8282 [facility] [id number] Immature Grans (Abs) 0.0 {x10E3/uL} (Normal) Range: [...] (Normal) Range: 3.4-10.8 :27 HgA1C , Office (26542) HgA1C , Office 6.6 % (Normal) Range: 4.6 - 7.1 :27 Blood Glucose , Office (68474) Blood Glucose , Office 168 (Normal) :08 Microscopic Examination Comments: PATIENT WAS FASTINGPERFORMED BY: Order Mapper Ymfzxz0444 [facility] Centerin [place] [id number] Bacteria None seen (Normal) Mucus Threads Present (Normal) Epithelial Cells (non renal) None seen {/hpf} (Normal) Range: 0 - 10 RBC None seen {/hpf} (Normal) Range: 0 - 2 WBC 0-5 {/hpf} (Normal) Range: 0 - 5 :08 CALCIFIDIOL (83782) VIT D 25 Comments: PATIENT WAS FASTINGPERFORMED BY: PlayerPro6370 [facility] [id number] Vitamin D, 25-Hydroxy 62.4 ng/mL (Normal) Range: 30.0-100.0 Comments: Vitamin D deficiency has been defined by the Reva ofMedicine and an Endocrine Society practice guideline as alevel of serum 25-OH vitamin D less than 20 ng/mL (1,2).The Endocrine Society went on to further define vitamin Dinsufficiency as a level between 21 and 29 ng/mL (2).1. IOM (Reva of Medicine). 2010. Dietary reference intakes for calcium and D. [place]: The National Academies Press.2. Charles MF, Raissa NC, Nirmala ALBERT, et al. Evaluation, treatment, and prevention of vitamin D deficiency: an Endocrine Society clinical practice guideline. JCEM. 2010; 96(7):1911-30. :08 URINALYSIS, W/ MICRO (63767) Comments: PATIENT WAS FASTINGPERFORMED BY: Order Mapper Qmgdzb2462 [facility] [id number] Microscopic Examination See below: (Normal) Comments: Microscopic was indicated and was performed. Microscopic Examination MICRON (Normal) Comments: Microscopic follows if indicated. Nitrite, Urine Negative (Normal) Urobilinogen,Semi-Qn 0.2 mg/dL (Normal) Range: 0.2-1.0 Bilirubin Negative (Normal) Occult Blood Negative (Normal) Ketones Negative (Normal) Glucose Negative (Normal) Protein Negative (Normal) WBC Esterase Negative (Normal) Appearance Clear (Normal) Urine-Color Yellow (Normal) pH 6.0 (Normal) Range: 5.0-7.5 Specific Hope 1.022 (Normal) Range: 1.005-1.030 48-Dva-297712:08 MICROALBUMIN: CREATININE RATIO Comments: PATIENT WAS FASTINGPERFORMED BY: [place] 1000[employer] Meeths6734 RosadoAerin MedicalECU Health [facility] Hospital [id number] (07375) AND (08794) Microalb/Creat Ratio <1.8 {mg/g_creat} (Normal) Range: 0.0-30.0 Microalbumin, Urine <3.0 ug/mL (Normal) Creatinine, Urine 164.4 mg/dL (Normal) :08 METABOLIC PANEL, COMPREHENSIVE Comments: PATIENT WAS FASTINGPERFORMED BY: [employer]6370 [employer] / cTraderECU Health [facility] Hospital [id number] (46652) ALT (SGPT) 16 [iU]/L (Normal) Range: 0-44 [...] Glucose, Serum 108 mg/dL (Abnormal) Range: 65-99 04-Hft-038651:08 LIPID PANEL (60229) Comments: PATIENT WAS FASTINGPERFORMED BY: Connectivity70 [facility] [id number] LDL/HDL Ratio 1.4 {ratio_units} (Normal) Range: 0.0-3.6 [...] Cholesterol, Total 124 mg/dL (Normal) Range: 100-199 79-Riu-661649:08 CBC W/AUTO DIFF WBC Comments: PATIENT WAS FASTINGPERFORMED BY: PlayerPro6370 [facility] [id number] Information: [id number] (82639) Immature Grans (Abs) 0.0 {x10E3/uL} (Normal) Range: [...] 5.5 {x10E3/uL} (Normal) Range: 3.4-10.8 :08 TSH (96610) Comments: PATIENT WAS FASTINGPERFORMED BY: [employer] Kwsoyq6533 [facility] [id number] TSH 4.000 {uIU/mL} (Normal) Range: 0.450-4.500 :03 HgA1C , Office (84822) HgA1C , Office 6.2 % (Normal) Range: 4.6 - 7.1 :03 Blood Glucose , Office (09392) Blood Glucose , Office 102 (Normal) :49 Throat Culture (75097) Comments: PATIENT NOT FASTINGPERFORMED BY: [place] 1000CHI Software TechnologyInspira Medical Center VinelandUrrurs6427 [facility] [id number] Information: SRC:THRGuillermo [id number] Result 1 RRF (Normal) Comments: Routine respiratory alfredo Upper Respiratory Culture Final report (Normal) :02 Rapid Strep Test, Office (63299) Rapid Strep Test, Office Negative (Normal) 9-Wng-917254:48 Influenza A&B Viral Comments: PATIENT NOT FASTINGPERFORMED BY: LabSheridan [facility] Hospital6370 [facility] [id number] Information: SRC:NOS [id number] Culture (45395) Viral Culture,Rapid,Influenza FLUABN (Normal) Comments: Negative:No Influenza A or B detected. 9-Zoi-156423:26 Rapid Flu (81332 x 2) Influenza A Ag negative (Normal) :30 HgA1C , Office (61617) HgA1C , Office 7.3 % (Abnormal) Range: 4.6 - 7.1 :30 Blood Glucose , Office (17754) Blood Glucose , Office 191 (Normal) :52 Microscopic Examination Comments: PATIENT WAS FASTINGPERFORMED BY: Order Mapper Ltiaid0389 [facility] [id number] Bacteria None seen (Normal) Mucus Threads Present (Normal) Epithelial Cells (non renal) 0-10 {/hpf} (Normal) Range: 0 - 10 RBC 0-2 {/hpf} (Normal) Range: 0 - 2 WBC 0-5 {/hpf} (Normal) Range: 0 - 5 :52 CALCIFIDIOL (81170) VIT D 25 Comments: PATIENT WAS FASTINGPERFORMED BY: DiscountDocSheridan Community Hospital6370 [facility] [id number] Vitamin D, 25-Hydroxy 44.9 ng/mL (Normal) Range: 30.0-100.0 Comments: Vitamin D deficiency has been defined by the Reva ofMedicine and an Endocrine Society practice guideline as alevel of serum 25-OH vitamin D less than 20 ng/mL (1,2).The Endocrine Society went on to further define vitamin Dinsufficiency as a level between 21 and 29 ng/mL (2).1. IOM (Reva of Medicine). 2010. Dietary reference intakes for calcium and D. [place]: The National Academies Press.2. Charles MF, Raissa NC, Nirmala ALBERT, et al. Evaluation, treatment, and prevention of vitamin D deficiency: an Endocrine Society clinical practice guideline. JCEM. 2010; 96(7):1911-30. :52 LIPID PANEL (22278) Comments: PATIENT WAS FASTINGPERFORMED BY: DiscountDocSheridan Community Hospital6370 [facility] [id number] LDL/HDL Ratio 2.4 {ratio_units} (Normal) Range: 0.0-3.6 [...] 196 mg/dL (Normal) Range: 100-199 :52 TSH (75298) Comments: PATIENT WAS FASTINGPERFORMED BY: DiscountDocSheridan Community Hospital6370 [facility] [id number] TSH 4.480 {uIU/mL} (Normal) Range: 0.450-4.500 :52 URINALYSIS, W/ MICRO (40309) Comments: PATIENT WAS FASTINGPERFORMED BY: [address] [id number] Microscopic Examination See below: (Normal) Comments: Microscopic was indicated and was performed. Microscopic Examination MICRON (Normal) Comments: Microscopic follows if indicated. Nitrite, Urine Negative (Normal) Urobilinogen,Semi-Qn 0.2 mg/dL (Normal) Range: 0.2-1.0 Bilirubin Negative (Normal) Occult Blood Negative (Normal) Ketones Negative (Normal) Glucose Negative (Normal) Protein Negative (Normal) WBC Esterase Negative (Normal) Appearance Clear (Normal) Urine-Color Yellow (Normal) pH 6.0 (Normal) Range: 5.0-7.5 Specific Hope 1.024 (Normal) Range: 1.005-1.030 :52 MICROALBUMIN: CREATININE RATIO Comments: PATIENT WAS FASTINGPERFORMED BY: PlayerPro6370 [facility] HospitalBankBazaar.comECU Health [facility] Hospital [id number] (17367) AND (82117) Microalb/Creat Ratio <2.2 {mg/g_creat} (Normal) Range: 0.0-30.0 Microalbumin, Urine <3.0 ug/mL (Normal) Range: 0.0-17.0 Creatinine, Urine 135.9 mg/dL (Normal) Range: 22.0-328.0 81-Pem-88444:52 METABOLIC PANEL, COMPREHENSIVE Comments: PATIENT WAS FASTINGPERFORMED BY: [employer]6370 [facility] HospitalBankBazaar.comECU Health [facility] Hospital [id number]; will review at 02/21 appt (57532) ALT (SGPT) 13 [iU]/L (Normal) Range: 0-44 [...] DIFF WBC Comments: PATIENT WAS FASTINGPERFORMED BY: LabCoInspira Medical Center VinelandWjvdar1229 [facility] [id number] Information: [id number] (94278) Immature Grans (Abs) 0.0 {x10E3/uL} (Normal) Range: [...] (Normal) Range: 3.4-10.8 :56 HgA1C , Office (44059) HgA1C , Office 5.9 % (Normal) Range: 4.6 - 7.1 :56 Blood Glucose , Office (55628) Blood Glucose , Office 103 (Normal) :35 HgA1C , Office (52241) HgA1C , Office 6.0 % (Normal) Range: 4.6 - 7.1 :34 Blood Glucose , Office (94708) Blood Glucose , Office 135 (Normal) :45 Potassium Comments: Test performed at:[facility] Pqatgtxbdh[address] [place], [place] [id number] K 4.3 mmol/L (Normal) Range: 3.5-5.1 :54 Comp. Metabolic Panel (14) Comments: PATIENT WAS FASTINGPERFORMED BY: LabCoInspira Medical Center VinelandExpiii7545 [facility] [id number] Information: [id number] ALT (SGPT) 11 [iU]/L (Normal) Range: 0-44 [...] Glucose, Serum 117 mg/dL (Abnormal) Range: 65-99 79-Mji-63747:54 Lipid Panel With LDL/HDL Comments: PATIENT WAS FASTINGPERFORMED BY: DiscountDocThe [facility] Vxwaxd5031 [facility] [id number] Ratio LDL/HDL Ratio 2.1 {ratio_units} Range: 0.0-3.6 [...] 2.860 {uIU/mL} Comments: PATIENT WAS FASTINGPERFORMED BY: Order Mapper Cjneip4895 [facility] [id number] 9:54 (Normal) Range: 0.450-4.500 02-Aug-2014 Vitamin D, 25-Hydroxy 61.9 ng/mL (Normal) Comments: PATIENT WAS FASTINGPERFORMED BY: LabWorkThinkInspira Medical Center VinelandStxwdb6171 [facility] [id number] 9:54 Range: 30.0-100.0 Comments: Vitamin D deficiency has been defined by the Reva ofMedicine and an Endocrine Society practice guideline as alevel of serum 25-OH vitamin D less than 20 ng/mL (1,2).The Endocrine Society went on to further define vitamin Dinsufficiency as a level between 21 and 29 ng/mL (2).1. IOM (Reva of Medicine). 2010. Dietary reference intakes for calcium and D. [place]: The National Academies Press.2. Charles MF, Raissa OCONNELL, Nirmala ALBERT, et al. Evaluation, treatment, and prevention of vitamin D deficiency: an Endocrine Society clinical practice guideline. JCEM. 2010; 96(7):1911-30. :13 HgA1C , Office (76995) HgA1C , Office 6.8 % (Normal) Range: 4.6 - 7.1 :13 Blood Glucose , Office (30820) Blood Glucose , Office 218 (Normal) :24 Microscopic Examination Comments: PATIENT WAS FASTINGPERFORMED BY: Order Mapper Iwwdrq1536 [facility]in [place] [id number] Bacteria None seen (Normal) Mucus Threads Present (Normal) Epithelial Cells (non renal) None seen {/hpf} (Normal) Range: 0 - 10 RBC 0-2 {/hpf} (Normal) Range: 0 - 2 WBC 0-5 {/hpf} (Normal) Range: 0 - 5 :24 Vitamin D Hydroxy (35693) Comments: PATIENT WAS FASTINGPERFORMED BY: Order Mapper Fkkofv7738 [facility] [id number] Vitamin D, 25-Hydroxy 35.7 ng/mL (Normal) Range: 30.0-100.0 Comments: Vitamin D deficiency has been defined by the Reva ofMedicine and an Endocrine Society practice guideline as alevel of serum 25-OH vitamin D less than 20 ng/mL (1,2).The Endocrine Society went on to further define vitamin Dinsufficiency as a level between 21 and 29 ng/mL (2).1. IOM (Reva of Medicine). 2010. Dietary reference intakes for calcium and D. [place]: The National Academies Press.2. Charles MF, Raissa OCONNELL, Nirmala ALBERT, et al. Evaluation, treatment, and prevention of vitamin D deficiency: an Endocrine Society clinical practice guideline. JCEM. 2010; 96(7):1911-30. :24 URINALYSIS, W/ MICRO (17354) Comments: PATIENT WAS FASTINGPERFORMED BY: LabCo Uoibrz0898 [facility] [id number] Microscopic Examination See below: (Normal) Comments: Microscopic was indicated and was performed. Microscopic Examination MICRON (Normal) Comments: Microscopic follows if indicated. Nitrite, Urine Negative (Normal) Urobilinogen,Semi-Qn 0.2 mg/dL (Normal) Range: 0.0-1.9 Bilirubin Negative (Normal) Occult Blood Negative (Normal) Ketones Negative (Normal) Glucose Negative (Normal) Protein Negative (Normal) WBC Esterase Negative (Normal) Appearance Clear (Normal) Urine-Color Yellow (Normal) pH 6.0 (Normal) Range: 5.0-7.5 Specific Hope 1.025 (Normal) Range: 1.005-1.030 41-Tct-935371:24 TSH (03120) Comments: PATIENT WAS FASTINGPERFORMED BY: [place] 1000[employer] [facility] [id number] TSH 2.740 {uIU/mL} (Normal) Range: 0.450-4.500 :24 MICROALBUMIN: CREATININE RATIO Comments: PATIENT WAS FASTINGPERFORMED BY: [place] 1000[employer] Card[employer] [facility] [id number] (92938) AND (06213) Microalb/Creat Ratio <1.5 {mg/g_creat} (Normal) Range: 0.0-30.0 Microalbumin, Urine <3.0 ug/mL (Normal) Range: 0.0-17.0 Creatinine, Urine 205.5 mg/dL (Normal) Range: 22.0-328.0 74-Jpz-626753:24 METABOLIC PANEL, COMPREHENSIVE Comments: PATIENT WAS FASTINGPERFORMED BY: [place] 1000[employer] Cyvrfe9400 [facility] [id number] (48436) ALT (SGPT) 13 [iU]/L (Normal) Range: 0-44 [...] Glucose, Serum 138 mg/dL (Abnormal) Range: 65-99 79-Zuy-665071:24 LIPID PANEL (36238) Comments: PATIENT WAS FASTINGPERFORMED BY: Recovers70 [employer] / cTraderECU [facility] [id number] LDL/HDL Ratio 3.2 {ratio_units} (Normal) Range: 0.0-3.6 [...] Cholesterol, Total 221 mg/dL (Abnormal) Range: 100-199 00-Lwe-142138:24 CBC W/AUTO DIFF WBC Comments: PATIENT WAS FASTINGPERFORMED BY: Recovers70 [facility] [id number] Information: [id number] (34951) Immature Grans (Abs) 0.0 {x10E3/uL} (Normal) Range: [...] 4.14-5.80 WBC 5.0 {x10E3/uL} (Normal) Range: 3.4-10.8 84-Zgq-023951:00 Fecal Occult Blood , Office (10356) Fecal Occult Blood , Office (Inhouse) negative (Normal) 67-Hvg-695185:57 PSA (PROSTATE SPECIFIC Comments: PATIENT NOT FASTINGPERFORMED BY: [facility]6370 [facility] [id number] Information: [id number] ANTIGEN) (V76.44) Prostate Specific Ag, 1.5 ng/mL (Normal) Range: 0.0-4.0 Serum Comments: Access ClosureIA methodology. .According to the [place] U[employer] Association, Serum PSA shoulddecrease and remain [...] of malignant disease. :17 HgA1C , Office (90662) HgA1C , Office 7.0 % (Normal) Range: 4.6 - 7.1 :17 Blood Glucose , Office (21015) Blood Glucose , Office 118 (Normal) :50 HgA1C , Office (78059) HgA1C , Office 7.6 % (Abnormal) Range: 4.6 - 7.1 :50 Blood Glucose , Office (64470) Blood Glucose , Office 142 (Normal) :44 Microscopic Examination Comments: PATIENT WAS FASTINGPERFORMED BY: [employer]6370 [facility] [id number] Bacteria None seen (Normal) Mucus Threads Present (Normal) Epithelial Cells (non renal) None seen {/hpf} (Normal) Range: 0 - 10 RBC 0-2 {/hpf} (Normal) Range: 0 - 2 WBC 0-5 {/hpf} (Normal) Range: 0 - 5 :32 URINALYSIS, W/ MICRO (31392) Comments: PATIENT WAS FASTINGPERFORMED BY: [employer]6370 [place] [facility] [id number] Microscopic Examination See below: (Normal) Comments: Microscopic was indicated and was performed. Microscopic Examination MICRON (Normal) Comments: Microscopic follows if indicated. Nitrite, Urine Negative (Normal) Urobilinogen,Semi-Qn 0.2 mg/dL (Normal) Range: 0.0-1.9 Bilirubin Negative (Normal) Ketones Negative (Normal) Occult Blood Negative (Normal) Glucose Trace (Abnormal) Protein Negative (Normal) WBC Esterase Negative (Normal) Appearance Clear (Normal) Urine-Color Yellow (Normal) pH 6.0 (Normal) Range: 5.0-7.5 Specific Hope 1.024 (Normal) Range: 1.005-1.030 :32 MICROALBUMIN: CREATININE RATIO Comments: PATIENT WAS FASTINGPERFORMED BY: Order Mapper Mbeaop5809 [facility] [id number] (02331) AND (61339) Microalb/Creat Ratio 1.3 {mg/g_creat} (Normal) Range: 0.0-30.0 Creatinine, Urine 188.3 mg/dL (Normal) Range: 22.0-328.0 Microalbumin, Urine 2.4 ug/mL (Normal) Range: 0.0-17.0 :32 TSH (11767) Comments: PATIENT WAS FASTINGPERFORMED BY: Order Mapper Yllvsm0462 [facility] [id number] TSH 3.250 {uIU/mL} (Normal) Range: 0.450-4.500 :32 METABOLIC PANEL, COMPREHENSIVE Comments: PATIENT WAS FASTINGPERFORMED BY: Order MapperInspira Medical Center VinelandYzwuak7037 [facility] [id number]; will review at 10/08 appt (98036) ALT (SGPT) 22 [iU]/L (Normal) Range: 0-44 [...] Glucose, Serum 152 mg/dL (Abnormal) Range: 65-99 0-Ykv-887890:32 LIPID PANEL (65407) Comments: PATIENT WAS FASTINGPERFORMED BY: Order MapperInspira Medical Center VinelandKqhokb9438 [facility] [id number] LDL/HDL Ratio 2.0 {ratio_units} (Normal) Range: 0.0-3.6 [...] MANUAL DIFF Comments: PATIENT WAS FASTINGPERFORMED BY: Order MapperInspira Medical Center VinelandZpwbgr9989 [facility] [id number] Information: [id number] (86405) Immature Grans (Abs) 0.0 {x10E3/uL} (Normal) Range: [...] (Normal) Range: 3.4-10.8 :37 HgA1C , Office (00921) HgA1C , Office 7.1 % (Normal) Range: 4.6 - 7.1 :37 Blood Glucose , Office (44729) Blood Glucose , Office 142 (Normal) 70-Aim-632829:39 Microscopic Examination Comments: PATIENT WAS FASTINGPERFORMED BY: [facility] Fzdaoo3396 [facility] [id number] Bacteria None seen (Normal) Mucus Threads Present (Normal) Epithelial Cells (non renal) None seen {/hpf} (Normal) Range: 0 - 10 RBC None seen {/hpf} (Normal) Range: 0 - 3 WBC 0-5 {/hpf} (Normal) Range: 0 - 5 :13 Vitamin D Hydroxy (12104) Comments: PATIENT WAS FASTINGPERFORMED BY: [employer] [facility] Aasxbh6636 [place] [facility] [id number] Vitamin D, 25-Hydroxy 35.9 ng/mL (Normal) Range: 30.0-100.0 Comments: Vitamin D deficiency has been defined by the Reva ofMedicine and an Endocrine Society practice guideline as alevel of serum 25-OH vitamin D less than 20 ng/mL (1,2).The Endocrine Society went on to further define vitamin Dinsufficiency as a level between 21 and 29 ng/mL (2).1. IOM (Reva of Medicine). 2010. Dietary reference intakes for calcium and D. [place]: The National Academies Press.2. Charles MF, Raissa OCONNELL, Nirmala ALBERT, et al. Evaluation, treatment, and prevention of vitamin D deficiency: an Endocrine Society clinical practice guideline. JCEM. 2010; 96(7):1911-30. :13 TSH (84859) Comments: PATIENT WAS FASTINGPERFORMED BY: [facility] [id number] TSH 4.190 {uIU/mL} (Normal) Range: 0.450-4.500 :13 URINALYSIS, W/ MICRO (65211) Comments: PATIENT WAS FASTINGPERFORMED BY: Connected Sports VenturesECU Health Bert[facility] Hospital [id number] Microscopic Examination MICRON (Normal) Comments: Microscopic follows if indicated. Microscopic Examination See below: (Normal) Nitrite, Urine Negative (Normal) Urobilinogen,Semi-Qn 0.2 mg/dL (Normal) Range: 0.0-1.9 Bilirubin Negative (Normal) Occult Blood Negative (Normal) Ketones Negative (Normal) Glucose Negative (Normal) Protein Negative (Normal) Appearance Clear (Normal) WBC Esterase Negative (Normal) Urine-Color Yellow (Normal) pH 7.0 (Normal) Range: 5.0-7.5 Specific Hope 1.023 (Normal) Range: 1.005-1.030 :13 MICROALBUMIN: CREATININE RATIO Comments: PATIENT WAS FASTINGPERFORMED BY: Recovers70 [employer] / cTraderECU Health [facility] Hospital [id number] (47993) AND (73091) Microalb/Creat Ratio 1.4 {mg/g_creat} (Normal) Range: 0.0-30.0 Creatinine, Urine 177.1 mg/dL (Normal) Range: 22.0-328.0 Microalbumin, Urine 2.5 ug/mL (Normal) Range: 0.0-17.0 :13 METABOLIC PANEL, COMPREHENSIVE Comments: PATIENT WAS FASTINGPERFORMED BY: Recovers70 [employer] / cTraderECU [facility] [id number] (47213) ALT (SGPT) 17 [iU]/L (Normal) Range: 0-44 [...] mg/dL (Abnormal) Range: 65-99 :13 LIPID PANEL (33331) Comments: PATIENT WAS FASTINGPERFORMED BY: [employer]6370 [place] [facility] HospitalBankBazaar.comECU Health [facility] [id number] LDL/HDL Ratio 1.8 {ratio_units} (Normal) Range: 0.0-3.6 LDL Cholesterol Calc 86 mg/dL (Normal) Range: 0-99 VLDL Cholesterol Ezequiel 18 mg/dL (Normal) Range: 5-40 HDL Cholesterol 48 mg/dL (Normal) Comments: According to ATP-III Guidelines, HDL-C >59 mg/dL is considered anegative risk factor for CHD. Triglycerides 92 mg/dL (Normal) Range: 0-149 Cholesterol, Total 152 mg/dL (Normal) Range: 100-199 17-Qpp-53466:13 CBC WITH MANUAL DIFF Comments: PATIENT WAS FASTINGPERFORMED BY: [facility]6370 [facility] [id number] Information: [id number] (77247) Immature Grans (Abs) 0.0 {x10E3/uL} (Normal) Range: [...] (Normal) Range: 3.4-10.8 :31 HgA1C , Office (85591) HgA1C , Office 6.7 % (Normal) Range: 4.6 - 7.1 :31 Blood Glucose , Office (90571) Blood Glucose , Office 141 (Normal) :55 HgA1C , Office (93562) HgA1C , Office 6.4 % (Normal) Range: 4.6 - 7.1 :55 Blood Glucose , Office (85847) Blood Glucose , Office 116 (Normal) :33 Microscopic Examination Comments: PATIENT WAS FASTINGPERFORMED BY: Connected Sports VenturesECU Health Bert[facility] Hospital [id number] Bacteria None seen (Normal) Mucus Threads Present (Normal) Epithelial Cells (non renal) None seen {/hpf} (Normal) Range: 0 - 10 RBC 0-3 {/hpf} (Normal) Range: 0 - 3 WBC 0-5 {/hpf} (Normal) Range: 0 - 5 :33 PSA (PROSTATE SPECIFIC Comments: PATIENT WAS FASTINGPERFORMED BY: Connected Sports VenturesECU Health [facility] Hospital [id number] ANTIGEN) (V76.44) Prostate Specific Ag, 1.5 ng/mL (Normal) Range: 0.0-4.0 Serum Comments: Dee ECLIA methodology. .According to the [place] U[employer] Association, Serum PSA shoulddecrease and remain at undetectable levels after radicalprostatectomy. The AUA defines biochemical recurrence as an initialPSA value 0.2 ng/mL or greater followed by a subsequent confirmatoryPSA value 0.2 ng/mL or greater.Values obtained with d ifferent assay methods or kits cannot be usedinterchangeably. Results cannot be interpreted as absolute evidenceof the presence or absence of malignant disease. :33 TSH (08205) Comments: PATIENT WAS FASTINGPERFORMED BY: [employer] Vplxyb8550 [facility] [id number] TSH 2.770 {uIU/mL} (Normal) Range: 0.450-4.500 :33 URINALYSIS, W/ MICRO (24569) Comments: PATIENT WAS FASTINGPERFORMED BY: Order MapperInspira Medical Center VinelandMmgbit0641 [facility] [id number] Microscopic Examination See below: (Normal) Microscopic Examination MICRON (Normal) Comments: Microscopic follows if indicated. Nitrite, Urine Negative (Normal) Urobilinogen,Semi-Qn 0.2 mg/dL (Normal) Range: 0.0-1.9 Bilirubin Negative (Normal) Occult Blood Negative (Normal) Ketones Negative (Normal) Glucose Negative (Normal) Protein Negative (Normal) WBC Esterase Negative (Normal) Appearance Clear (Normal) Urine-Color Yellow (Normal) pH 6.0 (Normal) Range: 5.0-7.5 Specific Hope 1.026 (Normal) Range: 1.005-1.030 :33 MICROALBUMIN: CREATININE RATIO Comments: PATIENT WAS FASTINGPERFORMED BY: Order MapperInspira Medical Center VinelandRninhm2272 [facility] [id number] (25550) AND (18937) Microalb/Creat Ratio 1.8 {mg/g_creat} (Normal) Range: 0.0-30.0 Microalbumin, Urine 3.6 ug/mL (Normal) Range: 0.0-17.0 Creatinine, Urine 203.4 mg/dL (Normal) Range: 22.0-328.0 :33 METABOLIC PANEL, COMPREHENSIVE Comments: PATIENT WAS FASTINGPERFORMED BY: Order MapperInspira Medical Center VinelandDkgzhf0647 [facility] [id number] (41480) ALT (SGPT) 16 [iU]/L (Normal) Range: 0-44 [...] Glucose, Serum 114 mg/dL (Abnormal) Range: 65-99 75-Dms-255736:33 LIPID PANEL (36816) Comments: PATIENT WAS FASTINGPERFORMED BY: Recovers70 [facility] [id number] LDL/HDL Ratio 1.3 {ratio_units} (Normal) Range: 0.0-3.6 LDL Cholesterol Calc 63 mg/dL (Normal) Range: 0-99 VLDL Cholesterol Ezequiel 25 mg/dL (Normal) Range: 5-40 HDL Cholesterol 47 mg/dL (Normal) Comments: According to ATP-III Guidelines, HDL-C >59 mg/dL is considered anegative risk factor for CHD. Triglycerides 123 mg/dL (Normal) Range: 0-149 Cholesterol, Total 135 mg/dL (Normal) Range: 100-199 48-Ccd-625023:33 CBC WITH MANUAL DIFF Comments: PATIENT WAS FASTINGPERFORMED BY: [place] 1000CHI Software TechnologyInspira Medical Center VinelandBuishy1899 [facility] [id number] Information: [id number] (77434) Immature Grans (Abs) 0.0 {x10E3/uL} (Normal) Range: [...] (Normal) Range: 4.0-10.5 :22 HgA1C , Office (70076) HgA1C , Office 6.3 % (Normal) Range: 4.6 - 7.1 :22 Blood Glucose , Office (38767) Blood Glucose , Office 109 (Normal) :49 ALDOS 9.3 ng/dL (Normal) Range: 0.0-30.0 :49 CATU [id number] Range: 0-510 {ug/24_hr} Comments: TESTING PERFORMED AT [facility]. ORIGINAL REPORT ONFILE IN LAB CONTAINS ADDITIONAL [...] metanephrines and plasma catecolamines. TESTING PERFORMED AT [facility]. ORIGINAL REPORT ONFILE IN LAB CONTAINS [...] 0.39 - 1.31Performed at: - [facility] [address] [id number] Director: Bruno Williamson MD, Phone: [phone] - (Normal) Pam car y - 2 [...] 126 mg/dLsuggests DIABETES MELLITUS per A.D.A. criteria. 96-Dej-252981:15 CBCD ANC 3.6 3/uL (Normal) Range: 2.0-7.7 [...] 4.6-6.2 WBC 6.4 {k/mm3} (Normal) Range: 4.4-11.0 96-Kgc-01129:00 BRAIN W/WO CONTRAST Radiology Report See Note [...] Stauffer M.D.August 08, 2012 at 10:05:25 PM [id number] Signed AH/AH If you are the referring physician and would like to consult with theradiologist who provided this interpretation, please contact Roseanne Mast. at [phone]. If this radiologist is unavailable,you will be directed to another radiologist to assist. If you are a patient with a question regarding this report, pleasecontactyour referring physician directly . Professional Interpretation Provided By: [employer], Phone , These documents contain legally protected [...] on 08/08/122207 Sign by: MIKHAIL STAUFFER MD 40-Eae-473908:32 BRAIN/HEAD WITHOUT CONTRAST Radiology Report See Note [...] Fontenot M.D.August 04, 2012 at 5:16:58 PM [id number] Signed DN/DN If you are the referring physician and would like to consult with theradiologist who pro vided this interpretation, please contact Heather Ng M.D. at [phone]. If this radiologist is unavailable, youwillbe directed to another radiologist to assist. If you are a patient with a quest ion regarding this report, pleasecontactyour referring physician directly. Professional Interpretation Provided By: [employer], Phone , These documents contain legally pro [...] docu ments. Dictated on 08/04/12 1645 by CORIE YANG,HEATHER RTranscribed on 08/04/121717 by ITS IMPORTSign by CORIE YANG,HEATHER Brand on 08/04/121718 Sign by: ___ HEATHER FONTENOT MD 90-Dfr-145494:36 CBCD ANC 4.1 3/uL (Normal) Range: 2.0-7.7 [...] METABOLIC PANEL, Comments: PATIENT NOT FASTINGPERFORMED BY: LabCoInspira Medical Center VinelandNwufgg5945 [facility] [id number] Information: [id number] COMPREHENSIVE (14153) ALT (SGPT) 13 [iU]/L (Normal) Range: 0-44 [...] (Normal) Range: 65-99 :01 HgA1C , Office (39200) HgA1C , Office 6.2 % (Normal) Range: 4.6 - 7.1 :01 Blood Glucose , Office (39479) Blood Glucose , Office 89 (Normal) :48 Microscopic Examination Comments: PATIENT WAS FASTINGPERFORMED BY: Recovers70 [employer] / cTraderECU [facility] [id number] Bacteria Few (Normal) Mucus Threads Present (Normal) Epithelial Cells (non renal) None seen {/hpf} (Normal) Range: 0 - 10 RBC 0-3 {/hpf} (Normal) Range: 0 - 3 WBC 0-5 {/hpf} (Normal) Range: 0 - 5 :48 TSH (82767) Comments: PATIENT WAS FASTINGPERFORMED BY: Recovers70 [employer] / cTraderECU [facility] [id number] TSH 5.340 {uIU/mL} (Abnormal) Range: 0.450-4.500 :48 URINALYSIS, W/ MICRO (12290) Comments: PATIENT WAS FASTINGPERFORMED BY: Order MapperInspira Medical Center VinelandPkppqo4169 [facility] [id number] Microscopic Examination See below: (Normal) Microscopic Examination MICRON (Normal) Comments: Microscopic follows if indicated. Bilirubin Negative (Normal) Nitrite, Urine Negative (Normal) Urobilinogen,Semi-Qn 0.2 mg/dL (Normal) Range: 0.0-1.9 Occult Blood Negative (Normal) Ketones Negative (Normal) Glucose Negative (Normal) Protein Negative (Normal) WBC Esterase Negative (Normal) Appearance Clear (Normal) pH 5.5 (Normal) Range: 5.0-7.5 Urine-Color Yellow (Normal) Specific Hope 1.028 (Normal) Range: 1.005-1.030 :48 MICROALBUMIN: CREATININE RATIO Comments: PATIENT WAS FASTINGPERFORMED BY: Order MapperInspira Medical Center VinelandEqoyll4761 [facility] [id number] (56421) AND (36029) Microalb/Creat Ratio 1.6 {mg/g_creat} (Normal) Range: 0.0-30.0 Creatinine, Urine 195.7 mg/dL (Normal) Range: 22.0-328.0 Microalbumin, Urine 3.2 ug/mL (Normal) Range: 0.0-17.0 :48 METABOLIC PANEL, COMPREHENSIVE Comments: PATIENT WAS FASTINGPERFORMED BY: Order MapperInspira Medical Center VinelandYtwdou5060 [facility] [id number] (35352) ALT (SGPT) 16 [iU]/L (Normal) Range: 0-44 [...] mg/dL (Normal) Range: 65-99 :48 LIPID PANEL (19374) Comments: PATIENT WAS FASTINGPERFORMED BY: Recovers70 [facility] [id number] LDL Cholesterol Calc 97 mg/dL (Normal) Range: [...] MANUAL DIFF Comments: PATIENT WAS FASTINGPERFORMED BY: [employer]ic[employer]in6370 [facility] [id number] Information: [id number] (18265) Immature Grans (Abs) 0.0 {x10E3/uL} (Normal) Range: [...] (Normal) Range: 4.0-10.5 :46 HgA1C , Office (22272) HgA1C , Office 6.1 % (Normal) Range: 4.6 - 7.1 :46 Blood Glucose , Office (07711) Blood Glucose , Office 91 (Normal) 0-Drb-426785:25 HEPATOBILLIARY IMG W/PHARM INT Radiology Report See [...] Cholecystokinin (0.02 ug/kg) was administered intravenously over u35-gkgtgq period. The post CCK gallbladder ejection fraction minutes following Cholecystokinin administration was noted to [...] Richmond M.D.December 24, 2011 at 8:34:10 PM [id number] S igned RB/RB If you are the referring physician and would like to consult with theradiologist who provided this interpretation, please contact Chad Aragon at [phone]. If this radiologist is un available, you will bedirected to another radiologist to assist. If you are a patient with a question regarding this report, pleasecontactyour referring physician directly. Professional Interpretation P rovided By: [employer]pPlyce, Phone , These documents contain legally protected [...] on 12/24/112116 Sign by: Aamir Richmond DO 32-Bmf-93830:56 GALLBLADDER Radiology Report See Note (Normal) Comments: [...] size of the right kidney. The right tqvazhkzycxvvx25.6 cm. Normal rolando al cortex. The right cortex measures 1.8 cm. Thereisno demonstrated renal mass or cyst. There is no right hydronephrosis. IMPRESSION:Sludge in the gallbladder lumen, with a thickened gallbladder wall .Correlation with nuclear medicine hepatobiliary scan is recommended. Signed:Jakob Hunt M.D.December 18, 2011 at 11:00:05 AM [id number] Signed GP/GP If you are the referring physician and would like to consult with theradiologist who provided this interpretation, please contact Chad Lao at [phone]. If this radiologist is unavailable, youwill be directed to another radiologist to assist. If you are a patient with a question regarding this report, pleasecontactyour referring physician directly. Professional Interpretation Provided By: [employer], Phone , These documents contain legally protected [...] Jakob Hunt MD :41 HgA1C , Office (13798) HgA1C , Office 6.2 % (Normal) Range: 4.6 - 7.1 :41 Blood Glucose , Office (74967) Blood Glucose , Office 115 (Normal) :37 HgA1C , Office (06707) HgA1C , Office 6.4 % (Normal) Range: 4.6 - 7.1 :37 Blood Glucose , Office (17131) Blood Glucose , Office 119 (Normal) :44 PSA (PROSTATE SPECIFIC Comments: PATIENT WAS FASTINGPERFORMED BY: [facility]6370 [facility] [id number] ANTIGEN) (V76.44) Prostate Specific Ag, 1.7 ng/mL (Normal) Range: 0.0-4.0 Serum Comments: Dee ECLIA methodology. .According to the [place] U[employer] Association, Serum PSA shoulddecrease and remain at undetectable levels after radicalprostatectomy. The AUA defines biochemical recurrence as an initialPSA value 0.2 ng/mL or greater followed by a subsequent confirmatoryPSA value 0.2 ng/mL or greater.Values obtained with d ifferent assay methods or kits cannot be usedinterchangeably. Results cannot be interpreted as absolute evidenceof the presence or absence of malignant disease. :44 TSH (21601) Comments: PATIENT WAS FASTINGPERFORMED BY: [facility] Sports VenturesECU [facility] [id number] TSH 2.660 {uIU/mL} (Normal) Range: 0.450-4.500 :44 URINALYSIS, W/ MICRO (39481) Comments: PATIENT WAS FASTINGPERFORMED BY: [facility] Sports VenturesECU [facility] [id number] Microscopic Examination See below: (Normal) Microscopic Examination MICRON (Normal) Comments: Microscopic follows if indicated. Nitrite, Urine Negative (Normal) Urobilinogen,Semi-Qn 0.2 mg/dL (Normal) Range: 0.0-1.9 Bilirubin Negative (Normal) Occult Blood Negative (Normal) Ketones Negative (Normal) Glucose Negative (Normal) Protein Negative (Normal) WBC Esterase Negative (Normal) Appearance Clear (Normal) Urine-Color Yellow (Normal) pH 6.0 (Normal) Range: 5.0-7.5 Specific Hope 1.024 (Normal) Range: 1.005-1.030 :44 MICROALBUMIN: CREATININE RATIO Comments: PATIENT WAS FASTINGPERFORMED BY: [employer]6370 [employer] / cTraderECU [facility] Hospital [id number] (48521) AND (34277) Microalb/Creat Ratio 1.1 {mg/g_creat} (Normal) Range: 0.0-30.0 Microalbumin, Urine 3.2 ug/mL (Normal) Range: 0.0-17.0 Creatinine, Urine 294.1 mg/dL (Normal) Range: 22.0-328.0 :44 Microscopic Examination Comments: PATIENT WAS FASTINGPERFORMED BY: [facility]6370 [facility] [id number] Bacteria None seen (Normal) Mucus Threads Present (Normal) Epithelial Cells (non renal) None seen {/hpf} (Normal) Range: 0 - 10 RBC 0-3 {/hpf} (Normal) Range: 0 - 3 WBC 0-5 {/hpf} (Normal) Range: 0 - 5 :44 METABOLIC PANEL, COMPREHENSIVE Comments: PATIENT WAS FASTINGPERFORMED BY: [facility]DocSher[facility] Hospital6370 [facility] [id number] (20209) ALT (SGPT) 21 [iU]/L (Normal) Range: 0-55 [...] Glucose, Serum 119 mg/dL (Abnormal) Range: 65-99 4-Myu-711988:44 LIPID PANEL (47893) Comments: PATIENT WAS FASTINGPERFORMED BY: [facility]ountDocSher[facility] Hospital6370 [facility] [id number] LDL/HDL Ratio 1.2 {ratio_units} (Normal) Range: 0.0-3.6 LDL Cholesterol Calc 63 mg/dL (Normal) Range: 0-99 VLDL Cholesterol Ezequiel 20 mg/dL (Normal) Range: 5-40 HDL Cholesterol 52 mg/dL (Normal) Comments: According to ATP-III Guidelines, HDL-C >59 mg/dL is considered anegative risk factor for CHD. Triglycerides 100 mg/dL (Normal) Range: 0-149 Cholesterol, Total 135 mg/dL (Normal) Range: 100-199 7-Rye-077950:44 CBC WITH MANUAL DIFF Comments: PATIENT WAS FASTINGPERFORMED BY: Order MapperInspira Medical Center VinelandSpxqdz1302 [facility] [id number] Information: [id number] (09555) Immature Grans (Abs) 0.0 {x10E3/uL} (Normal) Range: [...] (Normal) Range: 4.0-10.5 :25 HgA1C , Office (29956) HgA1C , Office 6.2 % (Normal) Range: 4.6 - 7.1 :25 Blood Glucose , Office (28433) Blood Glucose , Office 84 (Normal) :56 Blood Glucose , Office (54678) Blood Glucose , Office 96 (Normal) 3-Rub-618587:29 SPINE, LUMBAR (ROUTINE) Radiology Report See Note [...] level by level details above. Dictated on 12 /01/11 1040 by HEATHER FONTENOT MD RTranscribed on 02/23/11 1355 by ITS IMPORTSign by HEATHER FONTENOT MD R on 02/23/11 1356 Sign by: HEATHER FONTENOT MD :08 HgA1C , Office (35818) HgA1C , Office 6.3 % (Normal) Range: 4.6 - 7.1 :08 Blood Glucose , Office (81377) Blood Glucose , Office 108 (Normal) :50 URINALYSIS, W/ MICRO (66645) Comments: PATIENT WAS FASTINGPERFORMED BY: [employer] [place] [id number] Microscopic Examination See below: (Normal) Microscopic Examination MICRON (Normal) Comments: Microscopic follows if indicated. Nitrite, Urine Negative (Normal) Urobilinogen,Semi-Qn 0.2 mg/dL (Normal) Range: 0.0-1.9 Bilirubin Negative (Normal) Occult Blood Negative (Normal) Ketones Negative (Normal) Glucose Negative (Normal) Protein Negative (Normal) WBC Esterase Negative (Normal) Appearance Clear (Normal) Urine-Color Yellow (Normal) pH 5.5 (Normal) Range: 5.0-7.5 Specific Hope 1.022 (Normal) Range: 1.005-1.030 :50 MICROALBUMIN: CREATININE RATIO Comments: PATIENT WAS FASTINGPERFORMED BY: [facility] Sports VenturesECU [facility] [id number] (29732) AND (02042) Microalb/Creat Ratio <.6 {mg/g_creat} (Normal) Range: 0.0-30.0 Creatinine, Urine 163.1 mg/dL (Normal) Range: 22.0-328.0 Microalbumin, Urine <1.0 ug/mL (Normal) Range: 0.0-17.0 Comments: Verified by repeat analysis :50 METABOLIC PANEL, COMPREHENSIVE Comments: PATIENT WAS FASTINGPERFORMED BY: [place] 1000[employer] GroovideoECU Health [facility] Hospital [id number] (95545) ALT (SGPT) 16 [iU]/L (Normal) Range: 0-55 [...] mg/dL (Abnormal) Range: 65-99 :50 LIPID PANEL (47757) Comments: PATIENT WAS FASTINGPERFORMED BY: LabCoInspira [facility] Center VinelandMviutl3339 [facility] [id number] LDL Cholesterol Calc 68 mg/dL (Normal) Range: 0-99 LDL/HDL Ratio 1.5 {ratio_units} (Normal) Range: 0.0-3.6 HDL Cholesterol 46 mg/dL (Normal) Comments: According to ATP-III Guidelines, HDL-C >59 mg/dL is considered anegative risk factor for CHD. VLDL Cholesterol Ezqeuiel 23 mg/dL (Normal) Range: 5-40 Triglycerides 115 mg/dL (Normal) Range: 0-149 Cholesterol, Total 137 mg/dL (Normal) Range: 100-199 :50 CBC WITH MANUAL DIFF Comments: PATIENT WAS FASTINGPERFORMED BY: [facility] [id number] Information: [id number] ([id number]) Immature Grans (Abs) 0.0 {x10E3/uL} (Normal) Range: [...] Microscopic Examination Comments: PATIENT WAS FASTINGPERFORMED BY: Order Mapper Dnwlry3955 [facility] [id number] Bacteria Few (Normal) Mucus Threads Present (Normal) Epithelial Cells (non renal) None seen {/hpf} (Normal) Range: 0 - 10 RBC None seen {/hpf} (Normal) Range: 0 - 3 WBC 0-5 {/hpf} (Normal) Range: 0 - 5 :58 HgA1C , Office (35897) HgA1C , Office 6.0 % (Normal) Range: 4.6 - 7.1 :58 Blood Glucose , Office (43246) Blood Glucose , Office 93 (Normal) :13 PSA (PROSTATE SPECIFIC Comments: PATIENT NOT FASTINGPERFORMED BY: Order Mapper Sfnyju2365 [facility] [id number] Information: [id number] ANTIGEN) (V76.44) Prostate Specific Ag, 1.5 ng/mL (Normal) Range: 0.0-4.0 Serum Comments: Dee ECLIA methodology. .According to the [place] [employer], Serum PSA shoulddecrease and remain [...] of malignant disease. :16 HgA1C , Office (02898) HgA1C , Office 6.2 % (Normal) Range: 4.6 - 7.1 :16 Blood Glucose , Office (27008) Blood Glucose , Office 196 (Normal) :15 TSH (79114) Comments: PATIENT WAS FASTINGPERFORMED BY: Order Mapper Eipihg6194 [facility] [id number] TSH 3.200 {uIU/mL} (Normal) Range: 0.450-4.500 4-Hka-091416:15 MICROALBUMIN: CREATININE RATIO Comments: PATIENT WAS FASTINGPERFORMED BY: [facility] [id number] (97292) AND (73627) Creatinine, Urine 168.7 mg/dL (Normal) Range: 22.0-328.0 Microalb/Creat Ratio 1.5 {mg/g_creat} (Normal) Range: 0.0-30.0 Microalbumin, Urine 2.5 ug/mL (Normal) Range: 0.0-17.0 6-Rmh-261551:15 METABOLIC PANEL, COMPREHENSIVE Comments: PATIENT WAS FASTINGPERFORMED BY: Order MapperInspira Medical Center VinelandLsyxko7619 [facility] [id number] ([id number]) A/G Ratio 1.8 (Normal) Range: 1.1-2.5 Alkaline [...] Glucose, Serum 108 mg/dL (Abnormal) Range: 65-99 1-Xxm-208847:15 LIPID PANEL (80207) Comments: PATIENT WAS FASTINGPERFORMED BY: [place] 1000CHI Software TechnologyInspira Medical Center VinelandFohiib2939 [facility] [id number] LDL/HDL Ratio 1.8 {ratio_units} (Normal) Range: 0.0-3.6 HDL Cholesterol 49 mg/dL (Normal) Comments: According to ATP-III Guidelines, HDL-C >59 mg/dL is considered anegative risk factor for CHD. LDL Cholesterol Calc 86 mg/dL (Normal) Range: 0-99 VLDL Cholesterol Ezequiel 25 mg/dL (Normal) Range: 5-40 Cholesterol, Total 160 mg/dL (Normal) Range: 100-199 Triglycerides 123 mg/dL (Normal) Range: 0-149 6-Xlm-486284:15 CBC WITH MANUAL DIFF Comments: PATIENT WAS FASTINGPERFORMED BY: [place] 1000CHI Software TechnologyInspira Medical Center VinelandBpucsu3130 [facility] [id number] Information: [id number] (40099) Immature Grans (Abs) 0.0 {x10E3/uL} (Normal) Range: [...] (Normal) Range: 4.0-10.5 :53 HgA1C , Office (31398) HgA1C , Office 6.3 % (Normal) Range: 4.6 - 7.1 :53 Blood Glucose , Office (96793) Blood Glucose , Office 123 (Normal) :51 HgA1C , Office (72204) HgA1C , Office 6.2 % (Normal) Range: 4.6 - 7.1 :51 Blood Glucose , Office (40795) Blood Glucose , Office 93 (Normal) 10-Aqh-367146:01 Microscopic Examination Comments: PATIENT WAS FASTINGPERFORMED BY: [place] 1000[employer] Rdzpvm4174 [facility] [id number] Bacteria Few (Normal) Mucus Threads Present (Normal) Epithelial Cells (non renal) None seen {/hpf} (Normal) Range: 0 - 10 RBC 0-3 {/hpf} (Normal) Range: 0 - 3 WBC 0-5 {/hpf} (Normal) Range: 0 - 5 70-Khx-221506:01 PSA (PROSTATE SPECIFIC Comments: PATIENT WAS FASTINGPERFORMED BY: [employer] GroupCommunity Health [id number] ANTIGEN) (V76.44) Prostate Specific Ag, 1.4 ng/mL (Normal) Range: 0.0-4.0 Serum Comments: Access ClosureIA methodology..According to the [place] [employer], Serum PSA shoulddecrease and remain at undetectable levels after radicalprostatectomy. The AUA defines biochemical recurrence a s an initialPSA value 0.2 ng/mL or greater followed by a subsequent confirmatoryPSA value 0.2 ng/mL or greater.Values obtained with different assay methods or kits cannot be usedinterchangeably. Results cannot be interpreted as absolute evidenceof the presence or absence of malignant disease. : TSH (23014) Comments: PATIENT WAS FASTINGPERFORMED BY: Connected Sports VenturesECU [facility] [id number] TSH 3.670 {uIU/mL} (Normal) Range: 0.450-4.500 : URINALYSIS, W/ MICRO (55560) Comments: PATIENT WAS FASTINGPERFORMED BY: [employer] [facility] [id number] Microscopic Examination See below: (Normal) Bilirubin Negative (Normal) Microscopic Examination MICRON (Normal) Comments: Microscopic follows if indicated. Nitrite, Urine Negative (Normal) Urobilinogen,Semi-Qn 0.2 mg/dL (Normal) Range: 0.0-1.9 Glucose Negative (Normal) Ketones Negative (Normal) Occult Blood Negative (Normal) Protein Negative (Normal) WBC Esterase Negative (Normal) Appearance Clear (Normal) pH 6.0 (Normal) Range: 5.0-7.5 Specific Hope 1.024 (Normal) Range: 1.005-1.030 Urine-Color Yellow (Normal) 98-Fsm-565726:01 MICROALBUMIN: CREATININE RATIO Comments: PATIENT WAS FASTINGPERFORMED BY: [facility] GroupCommunity Health [id number] ([id number]) AND (82191) Microalb/Creat Ratio <.4 {mg/g_creat} (Normal) Range: 0.0-30.0 Microalbumin, Urine <1.0 ug/mL (Normal) Range: 0.0-17.0 Creatinine, Urine 226.9 mg/dL (Normal) Range: 22.0-328.0 :01 METABOLIC PANEL, COMPREHENSIVE Comments: PATIENT WAS FASTINGPERFORMED BY: LabCoInspira Medical Center VinelandDsqgts7480 [facility] [id number] (96452) A/G Ratio 2.0 (Normal) Range: 1.1-2.5 Alkaline [...] Glucose, Serum 93 mg/dL (Normal) Range: 65-99 :01 LIPID PANEL (69922) Comments: PATIENT WAS FASTINGPERFORMED BY: Order MapperInspira Medical Center VinelandHyorer6261 [facility] [id number] HDL Cholesterol 46 mg/dL (Normal) Comments: According to ATP-III Guidelines, HDL-C >59 mg/dL is considered anegative risk factor for CHD. LDL Cholesterol Calc 70 mg/dL (Normal) Range: 0-99 LDL/HDL Ratio 1.5 {ratio_units} (Normal) Range: 0.0-3.6 VLDL Cholesterol Ezequiel 18 mg/dL (Normal) Range: 5-40 Cholesterol, Total 134 mg/dL (Normal) Range: 100-199 Triglycerides 89 mg/dL (Normal) Range: 0-149 18-Jkk-393112:01 CBC WITH MANUAL DIFF Comments: PATIENT WAS FASTINGPERFORMED BY: Order MapperInspira Medical Center VinelandGiefwo5536 [facility] [id number] Information: [id number] (29967) Baso (Absolute) 0.0 {x10E3/uL} (Normal) Range: 0.0-0.2 [...] (Normal) Range: 4.0-10.5 :59 HgA1C , Office (89208) HgA1C , Office 6.6 % (Normal) Range: 4.6 - 7.1 :59 Blood Glucose , Office (46074) Blood Glucose , Office 105 (Normal) :29 HgA1C , Office (13354) Comments: done km HgA1C , Office 7.2 % (Abnormal) Range: 4.6 - 7.1 :29 Blood Glucose , Office (57679) Comments: done km Blood Glucose , Office 134 (Normal) :04 HgA1C , Office (77582) Comments: done km HgA1C , Office 6.7 % (Normal) Range: 4.6 - 7.1 :04 Blood Glucose , Office (61713) Comments: done Blood Glucose , Office 141 (Normal) :27 TSH (78095) Comments: PATIENT WAS FASTINGPERFORMED BY: LabCoInspira Medical Center VinelandPsgrtj9778 [facility] [id number] TSH 3.740 {uIU/mL} (Normal) Range: 0.450-4.500 :27 METABOLIC PANEL, COMPREHENSIVE Comments: PATIENT WAS FASTINGPERFORMED BY: LabCoInspira Medical Center VinelandXqucbj7186 [facility] [id number] (23317) A/G Ratio 1.7 (Normal) Range: 1.1-2.5 Albumin, [...] Range: 135-145 25-Oct-20089:27 LIPOPROTEIN, BLD, BY NMR (58618) Comments: PATIENT WAS FASTINGClinical Information: ADD [id number], [id number] PERFORMED BY: [facility]6370 [facility] [id number] Cholesterol, Total 149 mg/dL (Normal) HDL-C 41 [...] mg/dL (Normal) 25-Oct-20089:27 CBC WITH MANUAL DIFF (43630) Comments: PATIENT WAS FASTINGPERFORMED BY: LabCoInspira Medical Center VinelandYxycax7799 [facility] [id number] Baso (Absolute) 0.0 {x10E3/uL} (Normal) Range: 0.0-0.2 [...] (Normal) Range: 4.0-10.5 :55 HgA1C , Office (04352) Comments: done km HgA1C , Office 5.9 % (Normal) Range: 4.6 - 7.1 :55 Blood Glucose , Office (92698) Comments: done km Blood Glucose , Office 115 (Normal) 09-Bwr-402872:10 TSH (09867) Comments: REpeat first week in September; PATIENT NOT FASTINGClinical Information: ADD DRAW FEE [id number] ADD J 01229 PERFORMED BY: Recovers70 [facility] [id number] TSH 3.800 {uIU/mL} (Normal) Range: 0.450-4.500 79-Xdk-385210:48 TSH (00709) Comments: PATIENT WAS FASTINGPERFORMED BY: [facility] [id number] TSH 4.538 {uIU/mL} (Abnormal) Range: 0.450-4.500 37-Npy-443882:48 MICROALBUMIN: CREATININE RATIO Comments: PATIENT WAS FASTINGPERFORMED BY: [employer]70 [facility] [id number] (94911) AND (84960) Creatinine, Urine 370.1 mg/dL (Abnormal) Range: 22.0-328.0 Microalb/Creat Ratio 1.0 {ug/mg_creat} (Normal) Range: 0.0-30.0 Microalbumin, Urine 3.7 ug/mL (Normal) Range: 0.0-17.0 48-Fdl-913010:48 METABOLIC PANEL, COMPREHENSIVE Comments: PATIENT WAS FASTINGPERFORMED BY: [facility] [id number] (69236) A/G Ratio 1.6 (Normal) Range: 1.1-2.5 Albumin, [...] Sodium, Serum 140 mmol/L (Normal) Range: 135-145 33-Ydf-715212:48 CBC WITH MANUAL DIFF (54009) Comments: PATIENT WAS FASTINGClinical Information: ADD DRAW FEE [id number] ADD J [id number] PERFORMED BY: LabCoInspira Medical Center VinelandViheoh8310 [facility] [id number] Baso (Absolute) 0.0 {x10E3/uL} (Normal) Range: 0.0-0.2 [...] {x10E3/uL} (Normal) Range: 4.0-10.5 :48 LIPID PANEL (21181) Comments: PATIENT WAS FASTINGPERFORMED BY: LabCoInsp[facility] Center VinelandKudaeg1876 [facility] [id number] Cholesterol, Total 171 mg/dL (Normal) Range: 100-199 HDL Cholesterol 45 mg/dL (Normal) Comments: According to ATP-III Guidelines, HDL-C >59 mg/dL is considered anegative risk factor for CHD. LDL Cholesterol Calc 99 mg/dL (Normal) Range: 0-99 LDL/HDL Ratio 2.2 {ratio_units} (Normal) Range: 0.0-3.6 Triglycerides 133 mg/dL (Normal) Range: 0-149 VLDL Cholesterol Ezequiel 27 mg/dL (Normal) Range: 5-40 :24 HgA1C , Office (73631) Comments: done km HgA1C , Office 6.5 % (Normal) Range: 4.6 - 7.1 :24 Blood Glucose , Office (76579) Comments: done km Blood Glucose , Office 113 (Normal) :38 HgA1C , Office (99184) Comments: done HgA1C , Office 6.0 % (Normal) Range: 4.6 - 7.1 :38 Blood Glucose , Office (04795) Comments: done Blood Glucose , Office 132 (Normal) :09 PSA,TOT SCREEN 1.30 ng/mL (Normal) Range: 0.00-4.00 Comments: This test was performed using the TPSA method for theTapFwd chemistry system.Values obtained with different assay methods cannot be usedinterchangably.When changing PSA assays in the course of monito ring apatient, additional sequential testing should be carriedout to confirm baseline values. :00 HgA1C , Office (78265) Comments: done HgA1C , Office 7.4 % (Abnormal) Range: 4.6 - 7.1 :00 Blood Glucose , Office (73100) Comments: done Blood Glucose , Office 138 (Normal) :32 MYOCARD PERF SPECT REST/STRESS Radiology Report See Note (Normal) Comments: Exam Number: [id number] MYOCARDIAL PERFUSION SCAN TECHNIQUEThe patient was injected [...] of 60%. Reported By: LOUIS CASTILLO M.D. 52-Hzz-769893:27 URINALYSIS W/O MICRO (08872) Comments: PATIENT WAS FASTINGPERFORMED BY: [facility]uresEC[facility] [id number] Appearance Clear (Normal) Bilirubin Negative (Normal) Glucose Negative (Normal) Ketones Negative (Normal) Microscopic Examination MICRON (Normal) Comments: Microscopic follows if indicated. Nitrite, Urine Negative (Normal) Occult Blood Negative (Normal) pH 7.5 (Normal) Range: 5.0-7.5 Protein Trace (Normal) Specific Hope 1.023 (Normal) Range: 1.005-1.030 Urine-Color Yellow (Normal) Urobilinogen,Semi-Qn 0.2 mg/dL (Normal) Range: 0.0-1.9 WBC Esterase Negative (Normal) 59-Ltr-913170:27 TSH (10128) Comments: PATIENT WAS FASTINGPERFORMED BY: [facility]EC[facility] [id number] TSH 3.505 {uIU/mL} (Normal) Range: 0.350-5.500 Comments: Adult TSH concentrations below 5.5 uIU/mL do not rule out the presence of subclinical hypothyroidism. 77-Tbp-242908:27 MICROALBUMIN URINE QUANT Comments: PATIENT WAS FASTINGPERFORMED BY: [facility]uresEC[facility] [id number] ([id number]) Microalbum.,U,Random 4.4 ug/mL (Normal) Range: 0.0-17.0 :27 METABOLIC PANEL, COMPREHENSIVE Comments: PATIENT WAS FASTINGPERFORMED BY: [facility] Zerpll8157 [facility] [id number] (32713) A/G Ratio 1.8 (Normal) Range: 1.1-2.5 Albumin, [...] Serum 132 mg/dL (Abnormal) Range: 65-99 If -Nigerien >60 mL/min (Normal) Range: 60-137 Comments: Note: [...] Sodium, Serum 140 mmol/L (Normal) Range: 135-145 94-Gcb-103338:27 CBC WITH MANUAL DIFF (42924) Comments: PATIENT WAS FASTINGClinical Information: ADD [id number], ADD [id number] PERFORMED BY: GUICHO [facility] Wkavzb1590 [facility] [id number] Baso (Absolute) 0.0 {x10E3/uL} (Normal) Range: 0.0-0.2 [...] 11.7-15.0 WBC 5.5 {x10E3/uL} (Normal) Range: 4.0-10.5 79-Uyw-500520:27 LIPID PANEL (08870) Comments: PATIENT WAS FASTINGPERFORMED BY: [facility] Kojcpw6335 [facility] [id number] LDL/HDL Ratio 2.4 {ratio_units} (Normal) Range: 0.0-3.6 Cholesterol, Total 212 mg/dL (Abnormal) Range: 100-199 Comment SPRCS (Normal) Comments: If initial LDL-cholesterol result is >100 mg/dL, assess forrisk factors. HDL Cholesterol 52 mg/dL (Normal) Range: 40-59 LDL Cholesterol Calc 123 mg/dL (Abnormal) Range: 0-99 Triglycerides 184 mg/dL (Abnormal) Range: 0-149 VLDL Cholesterol Ezequiel 37 mg/dL (Normal) Range: 5-40 :28 HgA1C , Office (45897) Comments: done HgA1C , Office 6.9 % (Normal) Range: 4.6 - 7.1 :28 Blood Glucose , Office (82541) Comments: done Blood Glucose , Office 157 (Normal) :58 HgA1C , Office (89867) Comments: done HgA1C , Office 6.6 % (Normal) Range: 4.6 - 7.1 :58 Blood Glucose , Office (70450) Comments: done Blood Glucose , Office 136 [...] was performed using the TPSA method for [employer] chemistry system.Values obtained with different assay methods cannot be usedinterchangably.When changing PSA assays in the course of monito ring apatient, additionaly sequential testing should be carriedout to confirm baseline values. :29 TSH 3.67 {uIU/mL} (Normal) Range: 0.34-4.82 :39 Blood Glucose , Office (46333) Comments: done km Blood Glucose , Office 98 (Normal) :39 HgA1C , Office (09885) Comments: done km HgA1C , Office 6.5 % (Normal) Range: 4.6 - 7.1 :57 HgA1C , Office (01631) HgA1C , Office 6.5 % (Normal) Range: 4.6 - 7.1 :57 Blood Glucose , Office (26681) Blood Glucose , Office 138 (Normal) :03 HgA1C , Office (58438) HgA1C , Office 6.6 % (Normal) Range: 4.6 - 7.1 6-Nfr-766435:03 Blood Glucose , Office (12502) Blood Glucose , Office 92 (Normal) 78-Yna-555575:28 LIVER ALB 3.6 g/dL (Normal) Range: 3.4-5.0 [...] 1 month- gen med / will need [facility] Indication: Physical exam WITHOUT abnormal findings [...] from H/O transient cerebral ischemia) : Reviewed Director Of Automation Letter Indication: History of transient cerebral ischemia (Renamed from H/O transient cerebral ischemia) Hypertensive urgency : Reviewed Director Of Automation Letter Indication: Hypertensive urgency Heart disease, hypertensive, [...] Current Prescription(s) Indication: Hypothyroidism Hypothyroidism : Reviewed Director Of Automation Letter Indication: Hypothyroidism Uncontrolled type II diabetes [...] from there Planned Observations T4, FREE (THYROXINE) (35558)Indication: Hypothyroidism On: :48 Request T3, FREE (TRIDOTHYRONINE) (30392)Indication: Hypothyroidism On: :48 Request URINALYSIS, W/ MICRO (57062)Indication: Essential hypertension On: :47 Request MICROALBUMIN: CREATININE RATIO (05804) AND (13257)Indication: Essential hypertension On: :47 Request METABOLIC PANEL, COMPREHENSIVE (16999)Indication: Essential hypertension On: :47 Request CBC W/AUTO DIFF WBC (63729)Indication: Essential hypertension On: :47 Request LIPID PANEL (04273)Indication: Hypercholesterolemia On: :47 Request TSH (47182)Indication: Hypothyroidism On: :47 Request CALCIFIDIOL (97120) VIT D 25Indication: Vitamin D deficiency On: :47 Request Influenza A&B Viral Culture (01301)Indication: Flu-like symptoms On: 3-Hfo-716843:53 Request POTASSIUM SERUM (23988)Indication: Potassium disorder On: 33-Vna-624860:53 Request CALCIFEDIOL (19152)Indication: Vitamin D deficiency On: 71-Abt-80220:36 Request TSH (12704)Indication: Hypothyroidism On: 92-Ael-38310:35 Request Lipid Panel (68250)Indication: Hypercholesterolemia On: :34 Request Metabolic Panel, Comprehensive (55304)Indication: Hypercholesterolemia On: :34 Request URINE VMA (32913)Indication: Hypertensive urgency On: 15-Wtv-074665:54 Request Catecholamines,24-Hour Urine (12089)Indication: Hypertensive urgency On: 47-Bem-200595:54 Request RENIN (52075)Indication: Hypertensive urgency On: 19-Iex-395821:54 Request ALDOSTERONE (83483)Indication: Hypertensive urgency On: 41-Hzn-300086:54 Request METANEPHRINES (91359)Indication: Hypertensive urgency On: 83-Qrj-194881:54 Request CBC (Auto) (08332)Indication: Hypertensive urgency On: 05-Zkq-956573:36 Request Metabolic Panel, Basic (17420)Indication: Hypertensive urgency On: 44-Gwf-713083:36 Request TSH (33542)Indication: Hypertensive urgency On: :24 Request CBC WITH MANUAL DIFF (98550)Indication: Hypertensive urgency On: :24 Request METABOLIC PANEL, COMPREHENSIVE (49798)Indication: Hypertensive urgency On: 13-Qwy-598960:24 Request Troponin I (21445)Indication: Hypertensive urgency On: 17-Nlz-133164:20 Request CPK MB FRACTION (84201)Indication: Hypertensive urgency On: :20 Request CREATINE KINASE TOTAL (54718)Indication: Hypertensive urgency On: 51-Pgy-998551:20 Request TSH (71923)Indication: Hypothyroidism On: 83-Qed-214744:56 Request HgA1C , Office (19681)Indication: Controlled diabetes mellitus type II without complication On: :56 Request PSA (PROSTATE SPECIFIC ANTIGEN) (V76.44)Indication: Screening for prostate cancer On: 31-Krc-92704:20 Request TSH (60605)Indication: Uncontrolled type II diabetes mellitus On: :19 Request URINALYSIS, W/ MICRO (21507)Indication: Uncontrolled type II diabetes mellitus On: :19 Request MICROALBUMIN: CREATININE RATIO (44566) AND (89658)Indication: Uncontrolled type II diabetes mellitus On: :19 Request METABOLIC PANEL, COMPREHENSIVE (16596)Indication: Uncontrolled type II diabetes mellitus On: :19 Request LIPOPROTEIN, BLD, BY NMR (39847)Indication: Uncontrolled type II diabetes mellitus On: :19 Request LIPID PANEL (65474)Indication: Uncontrolled type II diabetes mellitus On: :19 Request CBC WITH MANUAL DIFF (73877)Indication: Uncontrolled type II diabetes mellitus On: :19 Request LIPOPROTEIN, BLD, BY NMR (12622)Indication: Hypercholesterolemia On: :57 Request LIPID PANEL (26254)Indication: Hypercholesterolemia On: :57 Request Comments: do in 3 months LIPID PANEL (53762)Indication: Controlled diabetes mellitus type II without complication On: :22 Request T3, FREE (TRIDOTHYRONINE) (87009)Indication: Abnormal TSH On: :40 Request T4, FREE (THYROXINE) (88326)Indication: Abnormal TSH On: :40 Request TSH (43485)Indication: Abnormal TSH On: :40 Request Comments: do in 2-3 mo TSH (78046)Indication: Controlled diabetes mellitus type II without complication On: :29 Request METABOLIC PANEL, COMPREHENSIVE (01327)Indication: Controlled diabetes mellitus type II without complication On: :29 Request MICROALBUMIN: CREATININE RATIO (72615) AND (83885)Indication: Controlled diabetes mellitus type II without complication On: :29 Request CBC WITH MANUAL DIFF (08222)Indication: Controlled diabetes mellitus type II without complication On: 99-Dgu-112375:29 Request LIPID PANEL (12514)Indication: Controlled diabetes mellitus type II without complication On: :29 Request PSA (PROSTATE SPECIFIC ANTIGEN) (V76.44)Indication: Uncontrolled type II diabetes mellitus On: :18 Request LIPID PANEL (56839)Indication: Hypercholesterolemia On: 99-Ira-572589:02 Request HEPATIC FUNCTION PANEL (39998)Indication: Hypercholesterolemia On: 40-Qgw-219616:02 Request TSH (09046) On: :45 Request METABOLIC PANEL, COMPREHENSIVE (87198) On: :44 Request LIPID PANEL (27898) On: :44 Request CBC WITH MANUAL DIFF (25569) On: :44 Request PSA (PROSTATE SPECIFIC ANTIGEN) (11830) On: :17 Request Comments: screening TSH (05452) On: :14 Request URINALYSIS W/O MICRO (95177) On: :14 Request MICROALBUMIN URINE QUANT (44176) On: 8-Rrb-380578:14 Request LIPID PANEL (76942) On: :14 Request METABOLIC PANEL, COMPREHENSIVE (47732) On: :14 Request CBC WITH MANUAL DIFF (46199) On: Request MICROALBUMIN: CREATININE RATIO (20061) On: : Request AND (10989) METABOLIC PANEL, COMPREHENSIVE (22014) On: : Request LIPID PANEL (68005) On: Request CBC WITH MANUAL DIFF (25496) On: Request Planned Procedures PNEUM VAC ADLT/IMUMNOSPR, SBC/INTRM On: 07-Feb-2018 Intent (82132)By: Denisa Macias DO Comments: 0.5 cc given sq lt arm lot [id number] exp 04/21/19 Denisa Macias DO X-RAY OF RIGHT HAND, ONE OR TWO On: 07-Feb-2018 Intent VIEWS (16149)By: Denisa Macias DO Comments: attention to hypothenar area for FB Denisa Macias DO TD VACCINE ADULT (05251)By: Venkata, On: 23-Dec-2017 Intent Anne Comments: a105a3/91290.5mlr dltd, IMMLONG Flu Vaccine (Quadrivalent) 33681Os: On: 28-Nov-2017 Intent Visit, Nurse Comments: Lot #[id number]-6/30/19Site-L dltd, IMDose prefilled syringegiven by: Genna VARGAS.VIS reviewed and ABN signed X-RAY RIGHT KNEE, 3 VIEWS (63078)By: On: 31-Jul-2017 Intent Denisa Macias DO, DO, Kathleen Radiology - Knee - Right - Weight On: 31-Jul-2017 Intent BearingBy: Denisa Macias DO, DO, Kathleen ELECTROCARDIOGRAM, COMPLETE (ECG) On: 31-Jul-2017 Intent (61931)By: Denisa Macias DO Comments: nsr no acute chg Denisa Macias DO CT - Brain/Head (IV Contrast On: 31-Dec-2016 Intent Needed)By: Denisa Macias DO, DO, Kathleen Echo CompleteBy: Denisa Macias DO On: 31-Dec-2016 Intent Denisa Macias DO [facility] COUNSELING On: 31-Dec-2016 Intent FOR OBESITY, 15 MINUTES (G0447)By: Denisa Macias DO, DO, Kathleen Flu Vaccine (Quadrivalent) 39165Zh: On: 17-Dec-2016 Intent Denisa Macias DO, DO, Comments: Lot:[id number]:09/09/17Amt:0.5mlRoute:IMSite: L DltdGiven By: YURY Valdez signed Denisa MAGNETIC RESONANCE ANGIOGRAPHY OF On: 24-Sep-2016 Intent CAROTID AND VERTEBRAL VESSELS (29033)By: Denisa Macias DO, DO, Kathleen ELECTROCARDIOGRAM, COMPLETE (ECG) On: 24-Sep-2016 Intent (32442)By: Denisa Macias DO Comments: sinus gabby no acute chg- on BB Denisa Macias DO Renal Duplex ScanBy: Colleen GARCIA, On: 24-Sep-2016 Intent Denisa Valladares DO ELECTROCARDIOGRAM, COMPLETE (ECG) On: 10-Sep-2016 Intent (06158)By: Denisa Macias DO Comments: sinus gabby no acute chg Denisa Macias DO CT HEAD OR BRAIN WO CONTRAST On: 21-May-2016 Intent (12425)By: Denisa Macias DO, DO, Kathleen Flu Vaccine (Quadrivalent) 71658Wi: On: 23-Dec-2015 Intent Emeka Levin Comments: FLUlot: [id number]:08/08site:Lt deltoidroute:IMdose:.5mlDEMICK, MA Echo CompleteBy: Denisa Macias DO On: 24-Oct-2015 Intent [address] SCAN OF CHEST WITH CONTRAST On: 24-Oct-2015 Intent (87083)By: Denisa Macias DO, DO, Kathleen CT - Chest (IV Contrast Needed)By: On: 20-Jun-2015 Intent Denisa Macias DO, DO, Kathleen Echo CompleteBy: Denisa Macias DO On: 21-Feb-2015 Intent Denisa Macias DO Flu Vaccine (Quadrivalent) 07516Gf: On: 05-Jan-2015 Intent Denisa Macias DO, DO, Comments: lot [id number]: 09/22/2015site/route L rafa, IMamt 0.5mlVIS and ABN signed when applicableChelsea, CMAFM4 Denisa ELECTROCARDIOGRAM, COMPLETE (ECG) On: 16-Nov-2014 Intent ([id number])By: Denisa Macias DO Comments: nsr no acute changes - Denisa Macias DO Prevnar 13 ([id number])By: Colleen GARCIA, On: 10-May-2014 Intent Denisa Valladares DO Comments: Lot:[id number]:08/07Dose:0.5mgRoute:imSite:l armGiven By:MIGUEL ÁNGEL signed Inhaler Demonstration ([id number])By: On: 23-Mar-2014 Intent Hayley Stone CNP ADMINISTRATION OF INFLUENZA VIRUS On: 25-Dec-2013 Intent VACCINE (G0008)By: Visit, Nurse Comments: Lot #[id number]-L dltd, IMDose prefilled syringegiven by:YURY Seymour and ABN signed FLU VAC, SPLIT, >3 YEARS, INTRAMUSC On: 25-Dec-2013 Intent ([id number])By: Visit, Nurse EKG ([id number])By: Denisa Macias DO On: 08-Oct-2013 Intent Denisa [...] PNEUM VAC ADLT/IMUMNOSPR, SBC/INTRM On: 19-Dec-2012 Intent ([id number])By: Marge Smith Comments: Lot:[id number]:10/25/13Dose:0.5mgRoute:imSite:r armGiven By:MIGUEL ÁNGEL signed ADMINISTRATION OF PNEUMOCOCCAL On: 19-Dec-2012 Intent VACCINE (G0009)By: Marge Smith FLU VAC, SPLIT, >3 YEARS, INTRAMUSC On: 17-Dec-2012 Intent ([id number])By: Anne Edge LPN Comments: Lot:[id number]:6.14Amt:0.5mlRoute:IMSite: L DltdGiven By: YURY Valdez signed Eprescribed prescriptions ([id number])By: On: 17-Dec-2012 Intent Anne Edge LPN Eprescribed prescriptions ([id number])By: On: 15-Sep-2012 Intent Anne Edge LPN Renal Artery DopplerBy: Colleen DO, On: 08-Aug-2012 Intent Denisa Colleen DO Denisa MRI - BrainBy: Colleen DO, Denisa On: 04-Aug-2012 Intent Colleen DO, Denisa CT - Brain/HeadBy: Colleen DO, On: 04-Aug-2012 Intent Denisa Colleen DO, Denisa Echo CompleteBy: Colleen DO, Denisa On: 04-Aug-2012 Intent Colleen DO, Denisa Carotid DopplerBy: Colleen DO, On: 04-Aug-2012 Intent Denisa Colleen DO, Denisa EKG ([id number])By: Colleen DO Denisa On: 28-Jul-2012 Intent Colleen DO Denisa Comments: nsr no acute changes Echo CompleteBy: Colleen DO, Denisa On: 21-Mar-2012 Intent Colleen DO, Denisa Echo CompleteBy: Colleen DO, Denisa On: 19-Mar-2012 Intent Colleen DO, Denisa Eprescribed prescriptions ([id number])By: On: 13-Mar-2012 Intent Anne Edge LPN Eprescribed prescriptions ([id number])By: On: 31-Dec-2011 Intent Denisa Macias DO, DO, Kathleen Nuclear Medicine - HIDA w/CPKBy: On: 19-Dec-2011 Intent Chase WAREHOUSE OPERATIONS ASSOCIATE, Supriya EKG ([id number])By: Denisa Macias DO On: 13-Dec-2011 Intent Denisa Macias DO Comments: nsr no acute chg Ultrasound - GallbladderBy: Colleen On: 29-Nov-2011 Intent Denisa GARCIA DO, Kathleen Eprescribed prescriptions ([id number])By: On: 29-Nov-2011 Intent Anne Edge LPN FLU VAC, SPLIT, >3 YEARS, INTRAMUSC On: 27-Nov-2011 Intent ([id number])By: Marissa Palomino LPN Comments: Lot #[id number]/30/13Site-left deltoidgiven by: Todd Palomino LPN ADMINISTRATION OF INFLUENZA VIRUS On: 27-Nov-2011 Intent VACCINE ([id number])By: Marissa Palomino LPN MRI - Lumbar Spine (IV Contrast On: 26-Jan-2011 Intent Needed)By: Denisa Macias DO, DO, Kathleen EKG ([id number])By: Denisa aMcias DO On: 05-Jan-2011 Intent Denisa Macias DO Comments: nsr no acute chg Cartoid DopplerBy: Colleen GARCIA, On: 05-Jan-2011 Intent Denisa Valladares DO EKG ([id number])By: Denisa Macias DO On: 06-Dec-2010 Intent Denisa Macias DO Comments: nsr no acute chgn- Bio Z ([id number])By: Denisa Macias DO On: 06-Dec-2010 Intent Denisa Macias DO Comments: stabel parameters- no chg in rx IMMUNIZ ADMNIN, 1 VAC, SNGL/COMBO On: 06-Dec-2010 Intent ([id number])By: Denisa Macias DO, DO, Kathleen FLU VAC, SPLIT, >3 YEARS, INTRAMUSC On: 06-Dec-2010 Intent ([id number])By: Denisa Macias DO, DO, Kathleen TDAP VACCINE >7 IM ([id number])By: Colleen On: 30-Aug-2010 Intent Denisa GARCIA DO, Kathleen Comments: Lot #[id number]/25/13Site-left deltoidgiven by: Todd Palomino LPN ADMINISTRATION OF INFLUENZA VIRUS On: 27-Dec-2009 Intent VACCINE (G0008)By: Edilia Vasquez LPN FLU VAC, SPLIT, >3 YEARS, INTRAMUSC On: 27-Dec-2009 Intent ([id number])By: Edilia Vasquez LPN Comments: Lot #[id number]-07/03Site-L armDose0.5mlgiven by: EKG ([id number])By: Denisa Macias DO On: 15-Nov-2009 Intent Denisa Macias DO Comments: nsr no acute changes MRI - Shoulder(s) - LeftBy: Colleen On: 11-May-2009 Intent Denisa GARCIA DO, Kathleen Bio Z ([id number])By: Denisa Macias DO On: 25-Oct-2008 Intent Denisa Macias DO Comments: NORMAL SVR AND CO EKG ([id number])By: Denisa Macias DO On: 25-Oct-2008 Intent Denisa Macias DO Comments: NSR NO ACUTE CHANGES Bio Z ([id number])By: Denisa Macias DO On: 04-Jun-2008 Intent Denisa Macias DO Comments: normal IMMUNIZ ADMNIN, 1 VAC, SNGL/COMBO On: 05-Jan-2008 Intent ([id number])By: Denisa Macias DO, DO, Kathleen FLU VAC, SPLIT, >3 YEARS, INTRAMUSC On: 05-Jan-2008 Intent ([id number])By: Denisa Macias DO, DO, Kathleen Bio Z ([id number])By: Denisa Macias DO On: 07-Nov-2007 Intent Denisa Macias DO Comments: normal svr and co Nuclear Stress Test/Stress On: 15-Sep-2007 Intent SPECT/TreadmillBy: Colleen GARCIA, Comments: [facility] Denisa Valladares DO Echo CompleteBy: Denisa Macias DO On: 07-Aug-2007 Intent Denisa Macias DO Cartoid DopplerBy: Colleen , On: 07-Aug-2007 Intent Denisa Valladares DO EKG ([id number])By: Denisa Macias DO On: 07-Aug-2007 Intent Denisa Macias DO Comments: nsr no acute ischemic changes EKG ([id number])By: Denisa Macias DO On: 29-Nov-2006 Intent Denisa [...] right upper quadrant Encounters Office Visit On: 07-Feb-2018 10:40 Encounter Reason: [...] The patient does have durable power of contract attorney and living will. The patient has [...] issues the patient is following up for [facility] All identified problems below, blood sugar [...] The patient does have durable power of contract attorney and living will. The patient has noticed nothing from the geriatic depression scale. Other providers contributing to the patient's care are window trimmer (dr liu) and other: ([facility], vision test up to date).Encounter Diagnosis: [...] in bathroom. The patient has completed the [facility] acute [facility] preventative measures: PSA testing (2011) and colonoscopy (2011). The patient does have durable power of contract attorney and living will. The patient has noticed nothing from the geriatic depression scale . Other providers contributing to the patient's care are window trimmer (Dr. Antonio) and surgeon (Dr. Negro -- [...] pa tient does have durable power of contract attorney and living will. The patient has noticed nothing from the geriatic depression scale. 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 Encounter Diagnosis: Type II Diabetes,controlled (250.00), [...] [facility] End: 07-Mar-2006 14:37 Payers MedicareAeguillermo Life Ins/MedicareErnest Stone; joceline guarantor
--- OUTSIDE RECORDS SUMMARY | 2018-06-16 22:03 | XMS RPT_ITS | Continuity of Care Document ---
:1945 External Reference #:[id number] Author Organization [facility] Address [address] [place] [address] Phone Care Team Providers Name Role Phone Denisa Macias DO Unavailable Physical Therapy, [facility] Unavailable Herberth Pollock Unavailable Lawrence Collier MD Unavailable Baljit Arcos MD Unavailable Dr. Nik Ch Unavailable Dr. 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 Status: Active TUBULOVILLOUS ADENOMA, NOS Comments: last colonoscopy was 2014 - Status: Active Uncontrolled type II diabetes mellitus (E11.65, 250.02) Status: Active Unspecified contact dermatitis, unspecified cause (L25.9, 692.9) Status: Active Unspecified Diagnosis Status: Active Vitamin D deficiency (E55.9, 268.9) [...] days Quantity: 90 {Tablet} Refills: 3 Ordered:04-Jan-2017 ColleenJim pratt DO, DO, Kathleen Start : 04-Jan-2017 Active Glucophage 1000 MG Oral Tablet 1 (one) tablet bid for 30 days Quantity: 180 {Tablet} Refills: 3 Ordered:11-Feb-2017 ColleenJim pratt DO, DO, Kathleen Start : 11-Feb-2017 Active Januvia 100 MG Oral Tablet 1 (one) Tablet qd for 0 days Quantity: 30 {Tablet} Refills: 3 Ordered:31-Jul-2017 ColleenJim pratt DO, DO, Kathleen Start : 31-Jul-2017 Active [...] DO, Kathleen Start : 27-Dec-2016 Active Pen [place] 5/16 31G X 8 MM Miscellaneous 1 [...] Quantity: 20 {Tablet} Refills: 0 Ordered:27-May-2015 Colleen DOJim DO, Kathleen Start : 27-May-2015 End : [...] days Quantity: 30 {Tablet} Refills: 0 Ordered:24-Sep-2016 Colleen GARCIA DenisaDenia Macias DOeen Start : 10-Sep-2016 End : 24-Sep-2016 Inactive [...] (External Solution) uad (10 %) Inactive Comments:[facility] [place] Levitra 10 MG Oral Tablet 1 Tablet [...] : 03-May-2016 End : 10-Sep-2016 Inactive ASPIRIN BUF(QVKPYJ-RVLEKH-RLV), 325MG (Oral Tablet) 1 (one) Tablet Daily [...] sure for 0 days Refills: 0 Ordered:26-Jul-2006 Mast Lorraine LANGLEY End : 26-Jul-2006 Discontinued VIAGRA, 100MG (Oral [...] Summary (1) Result: Comments: See Note; NOTES: [facility] [address] [place] [address]. [address] [place], [place] [address] [phone] Fax REHABILITATION SERVICES DISCHAR GE SUMMARY MR#: [id number] Acct: [id number] Name: YOHANNES CADET Rep #: [id number] [...] please feel free to call me at [phone]. Thank you for the referral of this patient. Sincerely, Aftab Mendez, PT, <Electronically signed by Aftab Mendez PT, ATC> 12/05/16 1100 CC: Nik valdes DPM; Denisa Macias DO [facility] Signed 09-Oct-2016 Inital Evaluation (1) - PT Result: Comments: See Note; NOTES: [facility] [address] [place], [place] [id number] Fax REHABILITATION SERVICES INITIAL EVALUATION MR#: [id number] Acct: [id number] Name: YOHANNES CADET Rep #: [id number] : 1945 71 From: Aftab Mendez PT, ATC Referring Dr.: Nik Ch DPM Status: REG RCR Insurance: [facility] PART A B WPS FOR LIFE Patient's [...] to be FAXED BACK to us at [phone] for Medicare purposes. Please let me know if there are questions or concerns regarding this plan of care. Physician Signature: Date: <Electronically signed by Aftab Mendez PT, ATC> 1001 CC: Nik Ch DPM; Denisa Macias DO [facility] Signed For Medicare only, by signing this I certify the plan of care. Physicians Signature Date 21-May-2016 Brain/Head without Contrast Result: Comments: See Note; NOTES: [facility] Imaging Services [address] [place] [address] Verdana 4d Brain/Head without Contrast MR#: [id number] Acct: [id number] Name: YOHANNES CADET Rep #: [id number] : 1945 M 70 From: Sincere Solorio DO PCP: Denisa Macias DO Status: REG CLI Study: Brain/Head without Contrast Date of Exam: 05/21/16 Exam# [id number] Ordering Dr: Denisa Macias DO STUDY: CT [...] at 14:26 EST Tel , Service support [phone], CC: Denisa Macias DO Internal Medicine Doctor: Signed 14-Nov-2015 Echocardiogram Complete Result: Comments: See Note; NOTES: [facility] Cardiovascular Services [address] [place] [address]218 Echo Complete 11/14/15 1303 MR#: [id number] Acct: [id number] Name: YOHANNES CADET Rep #: [id number] : 1945 70 From: Layo Raymond MD Attending Dr: Denisa Maicas DO Status: REG CLI Ordering Dr: Denisa Macias DO Date: 11/14/15 Location: [facility] Sex: M C Admitted: Reason Fo r [...] Dictated: 10/24 05/10 1303 Date Transcribed: 11/14/151648 Internal Medicine Doctor: Signed 14-Nov-2015 Chest WITH Contrast Result: Comments: See Note; NOTES: [facility] Imaging Services [address] [place], [place] [address] [place] [address] Verdana 4d Chest WITH Contrast MR#: [id number] Acct: [id number] Name: YOHANNES CADET Rep #: [id number] : 1945 M 70 From: Asia Peres MD PCP: Denisa Macias DO Status: REG CLI Study: Chest WITH Contrast Date of Exam: 11/14/15 Exam# [id number] Ordering Dr: Denisa Macias TUDY: CT CHEST [...] Service support , CC: Denisa Macias DO Internal Medicine Doctor: Signed 24-Oct-2015 ELECTROCARDIOGRAM, COMPLETE (ECG) (80521) Comments: sinus gabby - no acute chg - same as old and on BB Result: [MEASUREMENTS ANALYSIS] Date of Test: 10/24/2015 09:30:26; Heart Rate: 55; [place] Interval: 184; QRS: 105; QT Interval: 404; Corrected QT Interval (QTc): 396; P Wave [place]: 26; QRS Wave [place]: 27; T Wave [place] : 34; Blood Pressure: 138/70 [ECG DIAGNOSTIC STATEMENTS] Date of Test: 10/24/2015 09:30:26; Summary: Sinus Bradycardia WITHIN NORMAL LIMITS 29-Sep-2015 Knee 4 or More Views Result: Comments: See Note; NOTES: [facility] Imaging Services [address] [place] [address] Verdana 4d Knee 4 or More Views MR#: [id number] Acct: [id number] Name: YOHANNES CADET Rep #: [id number] : 1945 [facility] From: Tripp Miller MD PCP: Denisa Macias DO Status: [facility] CLI Study: Knee 4 or More Views Date of Exam: 09/29/15 Exam# [id number] Ordering Dr: Carrol Bautista DO STUDY: X-RAY [...] FACR at 9:18 EDT , Service support [phone], RAD/Knee 4 or More Views IMPRESSION: Moderate arthrosis of the patellofemoral joint Electronically Signed: Tripp Miller MD, FACR at 9:18 EDT , Service support [phone], CC: Carrol Kirkpatrick DO; Denisa Macias DO Internal Medicine Doctor: Signed 27-Oct-2013 PT Discharge Summary Result: Comments: See Note; NOTES: [facility] [address]. [address] [place] [address] Fax REHABILITATION SERVICES DISCHARGE SUMMARY MR#: [id number] Acct: [id number] Name: YOHANNES CADET Rep #: [id number] : 1945 68 From: Baljit Silva Referring [...] again, thank you for this referral. Baljit Silva PT T: GI JOB: [id number] <Electronically signed by Baljit pantoja > 10/27/13 0758 CC: Signed 27-Jul-2013 Inital Evaluation - PT Result: Comments: See Note; NOTES: [facility] [address]. 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 His goals are to find [...] We discussed with patient possibly using the cmzz-ffg-dpzwies orthotics before he considers fabricated orthotics due to cost. Uzair Silva, PT T: GI JOB: [id number] <Electronically signed by Baljit Silva > 07/27/13 1802 CC: Signed For Medicare only, by signing this I c ertify the plan of care. Physicians Signature Date 09-Jul-2013 Hip min 2 Views Result: Comments: See Note; NOTES: [facility] Imaging Services [address] [place] [address] Radiology Report MR#: [id number] Acct: [id number] Name: YOHANNES CADET Rep #: [id number] : 1945 M 67 From: Jakob Hunt MD PCP: Denisa Macias DO Status: REG CLI Study: Hip min 2 Views Date of Exam: 07/09/13 Exam# [id number] Ordering Dr: Denisa Macias DO STUDY : [...] Jakob Hunt MD at 14:44 EDT Tel [phone], Service support [phone], Fax CC: Denisa Macias DO Internal Medicine Doctor: Signed 09-Jul-2013 Pelvis 1 or 2 Views Result: Comments: See Note; NOTES: [facility] Imaging Services [address] [place] [address] Radiology Report MR#: [id number] Acct: [id number] Name: YOHANNES CADET Rep #: [id number] : 1945 M 67 From: Jakob Hunt MD PCP: Denisa Macias DO Status: REG CLI Study: Pelvis 1 or 2 Views Date of Exam: 07/09/13 Exam# [id number] Ordering Dr: Denisa Macias TUDY: X-RAY - [...] Jakob Hunt MD at 13:32 EDT Tel [phone], Service support [phone], CC: Denisa Macias DO Internal Medicine Doctor: Signed 09-Jul-2013 EKG (86375) Comments: nsr no acute chg - ant leads are old Result: [MEASUREMENTS ANALYSIS] Date of Test: 07/09/2013 08:48:02; Heart Rate: 57; [place] Interval: 164; QRS: 106; QT Interval: 408; Corrected QT Interval (QTc): 403; P Wave [place]: 25; QRS Wave [place]: 60; T Wave [place] : 62; Blood Pressure: 138/68 [ECG DIAGNOSTIC STATEMENTS] Date of Test: 07/09/2013 08:48:02; Summary: Sinus Bradycardia - Negative precordial T-waves. WITHIN NORMAL LIMITS Immunization Name Dates Details Influenza (3 years and up) on: 05-Jan-2008 Family History Unknown Family Member Name Dates Details Father Comments: [place]/CVA at 84 Status: Active Social History Name Dates Details Alcohol Use Comments: Occasional alcohol use Status: Active Non Smoker/No Tobacco Use Status: Active Tobacco use: Never smoker. Comments: 06/08/11 Status: Active Smoking Status Name Dates Details Never smoker Vital Signs Date Test Result Details :08 Temperature 97.9 f Comments: Method: Temporal [...] m2 :15 Comments[facility] Pulse 57 /min Comments: Pattern: Regular Respiration [...] 0.00 cm Results Date Description Value Details :40 HgA1C , Office (65623) HgA1C , Office 6.6 % (Normal) Range: 4.6 - 7.1 :40 Blood Glucose , Office (65119) Blood Glucose , Office 75 (Normal) 01-Qgl-964061:20 COLON BIOPSY (CHOOSE See Note (Normal) Comments: [facility] [address] [place], [place], [id number] SITE) Comments: Patient: YOHANNES CADET : 1945 (72/M) Acct Num: [id number] Phys: Mg Norman Unit Num: [id number] Loc: LABSPEC Specimen: [id number] Received: 09/20/171532 Spec Type: C OLON BX TISSUES TISSUES: Rectum, NOS GROSS DESCRIPTION Received in fixative is one container labeled with the patient's name and designated rectal polyp. The specimen predominantly consists of fecal material mixed with possible soares soft tissue, measuring in aggregate 2.5 x 0.6 x0.1 cm. The specimen is totally submitted in one cassette. SJ:scott 09/23/17 TC: cannot code CPT: 95343 HEADER OPERATION: Colonoscopy with polypectomy PRE-OP DIAGNOSIS: Rectal bleeding TISSUE SUBMITTED: Rectal polyp MICROSCOPIC DESCRIPTION Slides are reviewed. MICROSCOPIC DIAGNOSIS Rectal polyp, polypectomy: Fragments of fecal material. Colonic mucosal tissue is not identified. SJ:scott 09/24/18 Signed Magdy Purvis 09/24/17 <signature on file> 99-Zzv-160153:08 Microscopic Examination Comments: PATIENT WAS FASTINGPERFORMED BY: [employer]70 [facility] [id number] Bacteria None seen (Normal) Mucus Threads Present (Normal) Epithelial Cells (non renal) None seen {/hpf} (Normal) Range: 0 - 10 RBC None seen {/hpf} (Normal) Range: 0 - 2 WBC 0-5 {/hpf} (Normal) Range: 0 - 5 72-Xyv-803953:08 T4, FREE (THYROXINE) (38742) Comments: PATIENT WAS FASTINGPERFORMED BY: [employer]70 [facility] [id number] T4,Free(Direct) 1.27 ng/dL (Normal) Range: 0.82-1.77 05-Aih-718002:08 T3, FREE (TRIDOTHYRONINE) (37939) Comments: PATIENT WAS FASTINGPERFORMED BY: [facility] Oilttd2611 [facility] [id number] Triiodothyronine,Free,Serum 2.7 pg/mL (Normal) Range: 2.0-4.4 71-Ggz-150271:08 CALCIFIDIOL (58594) VIT D 25 Comments: PATIENT WAS FASTINGPERFORMED BY: [facility]6370 [facility] [id number] Vitamin D, 25-Hydroxy 57.4 ng/mL (Normal) Range: 30.0-100.0 Comments: Vitamin D deficiency has been defined by the [place] of[place]icine and an Endocrine Society practice guideline as alevel of serum 25-OH vitamin D less than 20 ng/mL (1,2).The Endocrine Society went on to further define vitamin Dinsufficiency as a level between 21 and 29 ng/mL (2).1. IOM ([place] of Medicine). 2010. Dietary reference intakes for calcium and D. [place]: The National Academies Press.2. Charles MF, Raissa NC, Nirmala ALBERT, et al. Evaluation, treatment, and prevention of vitamin D deficiency: an Endocrine Society clinical practice guideline. JCEM. 2010; 96(7):1911-30. 49-Jgw-541385:08 TSH (51095) Comments: PATIENT WAS FASTINGPERFORMED BY: [facility] [facility] [id number] TSH 3.370 {uIU/mL} (Normal) Range: 0.450-4.500 94-Phl-331369:08 URINALYSIS, W/ MICRO (60434) Comments: PATIENT WAS FASTINGPERFORMED BY: [facility] [id number] Microscopic Examination See below: (Normal) Comments: Microscopic was indicated and was performed. Microscopic Examination MICRON (Normal) Comments: Microscopic follows if indicated. Nitrite, Urine Negative (Normal) Urobilinogen,Semi-Qn 0.2 mg/dL (Normal) Range: 0.2-1.0 Bilirubin Negative (Normal) Occult Blood Negative (Normal) Ketones Negative (Normal) Glucose Negative (Normal) Protein Negative (Normal) WBC Esterase Negative (Normal) Appearance Clear (Normal) Urine-Color Yellow (Normal) pH 5.0 (Normal) Range: 5.0-7.5 Specific [place] 1.026 (Normal) Range: 1.005-1.030 48-Cdv-382175:08 MICROALBUMIN: CREATININE RATIO Comments: PATIENT WAS FASTINGPERFORMED BY: [employer]70 [facility] [id number] (53637) AND (47164) Alb/Creat Ratio 1.3 {mg/g_creat} (Normal) Range: 0.0-30.0 Albumin, Urine 3.1 ug/mL (Normal) Creatinine, Urine 237.2 mg/dL (Normal) 04-Kuw-330607:08 METABOLIC PANEL, COMPREHENSIVE Comments: PATIENT WAS FASTINGPERFORMED BY: [employer]70 [facility] [id number] (68249) ALT (SGPT) 17 [iU]/L (Normal) Range: 0-44 [...] 8-27 Glucose 142 mg/dL (Abnormal) Range: 65-99 18-Qfa-077856:08 CBC W/AUTO DIFF WBC (91663) Comments: PATIENT WAS FASTINGPERFORMED BY: [facility]6370 [facility] [id number] Immature Grans (Abs) 0.0 {x10E3/uL} (Normal) Range: [...] 4.14-5.80 WBC 5.5 {x10E3/uL} (Normal) Range: 3.4-10.8 00-Miz-355492:08 LIPID PANEL (93006) Comments: PATIENT WAS FASTINGPERFORMED BY: [place] 7493070 [facility] [id number] LDL/HDL Ratio 1.2 {ratio} (Normal) Range: 0.0-3.6 [...] (Normal) Range: 100-199 :08 HgA1C , Office (23083) HgA1C , Office 6.9 % (Normal) Range: 4.6 - 7.1 3-Ipv-009588:08 Blood Glucose , Office (07030) Blood Glucose , Office 123 (Normal) 3-Zhm-647692:23 Blood Glucose , Office (51568) Blood Glucose , Office 69 (Normal) 9-Rgu-631539:23 HgA1C , Office (89429) HgA1C , Office 7.1 % (Normal) Range: 4.6 - 7.1 :23 Blood Glucose , Office (60578) Blood Glucose , Office 84 (Normal) 49-Tjx-461416:06 Microscopic Examination Comments: PATIENT WAS FASTINGPERFORMED BY: [facility]6370 [facility] [id number] Bacteria Few (Normal) Mucus Threads Present (Normal) Epithelial Cells (non renal) None seen {/hpf} (Normal) Range: 0 - 10 RBC 0-2 {/hpf} (Normal) Range: 0 - 2 WBC 0-5 {/hpf} (Normal) Range: 0 - 5 4-Rao-115596:25 Methymalonic Acid, Serum Comments: PATIENT NOT FASTINGPERFORMED BY: [place] 0219170 [facility] [id number] BY: [address] [id number] (93566) Methylmalonic Acid, Serum 586 nmol/L (Abnormal) Range: 0-378 4-Bfg-871691:25 METABOLIC PANEL, Comments: PATIENT NOT FASTINGPERFORMED BY: LabCoUNM HospitalNeiwui8272 [facility] [id number] BY: LabCoSherry V[place] 980657 [facility] [id number] Inf ormation: [id number], [id number] COMPREHENSIVE (04382) ALT (SGPT) 11 [iU]/L (Normal) Range: 0-44 [...] Glucose, Serum 153 mg/dL (Abnormal) Range: 65-99 2-Hgc-151991:25 CBC (AUTO) (93096) Comments: PATIENT NOT FASTINGPERFORMED BY: LabKISSmetricsSt. Mary's HospitalZwkfwy5449 [facility] [id number] BY: [employer] [id number] Platelets 213 {x10E3/uL} (Normal) Range: 150-379 RDW 14.0 % (Normal) Range: 12.3-15.4 MCHC 33.2 g/dL (Normal) Range: 31.5-35.7 MCH 27.5 pg (Normal) Range: 26.6-33.0 MCV 83 fL (Normal) Range: 79-97 Hematocrit 38.2 % (Normal) Range: 37.5-51.0 Hemoglobin 12.7 g/dL (Normal) Range: 12.6-17.7 RBC 4.62 {x10E6/uL} (Normal) Range: 4.14-5.80 WBC 4.6 {x10E3/uL} (Normal) Range: 3.4-10.8 2-Weq-571973:25 TSH (37823) Comments: PATIENT NOT FASTINGPERFORMED BY: [employer] Scsiyo7093 [facility] [id number] BY: [employer] [id number] TSH 3.040 {uIU/mL} (Normal) Range: 0.450-4.500 5-Spq-391466:25 VITAMIN B-12 (CYANOCOBALAMIN) Comments: PATIENT NOT FASTINGPERFORMED BY: [facility] Bgnxoj2059 [facility] [id number] BY: [employer] [id number] (63185) Vitamin B12 227 pg/mL (Normal) Range: 211-946 0-Gsn-295584:25 PSA (PROSTATE SPECIFIC Comments: PATIENT NOT FASTINGPERFORMED BY: [facility] Nxegpb6965 [facility] [id number] BY: [address] [id number] ANTIGEN) (V76.44) Prostate Specific Ag, 2.0 ng/mL [...] or absence of malignant disease. :06 CALCIFIDIOL (00958) VIT D 25 Comments: PATIENT WAS FASTINGPERFORMED BY: Note6370 Rosado RoadDublin [place] [id number] Vitamin D, 25-Hydroxy 42.4 ng/mL (Normal) Range: 30.0-100.0 Comments: Vitamin D deficiency has been defined by the [place] of[place]icine and an Endocrine Society practice guideline as alevel of serum 25-OH vitamin D less than 20 ng/mL (1,2).The Endocrine Society went on to further define vitamin Dinsufficiency as a level between 21 and 29 ng/mL (2).1. IOM ([place] of Medicine). 2010. Dietary reference intakes for calcium and D. [place]: The National Academies Press.2. Charles MF, Raissa NC, Nirmala ALBERT, et al. Evaluation, treatment, and prevention of vitamin D deficiency: an Endocrine Society clinical practice guideline. JCEM. 2010; 96(7):1911-30. :06 TSH (78400) Comments: PATIENT WAS FASTINGPERFORMED BY: [employer] Vqmeml8714 Rosado RoadDublin [place] [id number] TSH 3.460 {uIU/mL} (Normal) Range: 0.450-4.500 :06 URINALYSIS, W/ MICRO (60734) Comments: PATIENT WAS FASTINGPERFORMED BY: [employer] Wbwpuc2884 Rosado RoadDublin [place] [id number] Microscopic Examination See below: (Normal) Comments: Microscopic was indicated and was performed. Microscopic Examination MICRON (Normal) Comments: Microscopic follows if indicated. Nitrite, Urine Negative (Normal) Urobilinogen,Semi-Qn 0.2 mg/dL (Normal) Range: 0.2-1.0 Bilirubin Negative (Normal) Occult Blood Negative (Normal) Ketones Negative (Normal) Glucose Negative (Normal) Protein Negative (Normal) WBC Esterase Negative (Normal) Appearance Clear (Normal) Urine-Color Yellow (Normal) pH 5.0 (Normal) Range: 5.0-7.5 Specific [place] 1.020 (Normal) Range: 1.005-1.030 61-Ngf-363301:06 MICROALBUMIN: CREATININE RATIO Comments: PATIENT WAS FASTINGPERFORMED BY: [employer] [facility] [id number] (08599) AND (58183) Microalb/Creat Ratio <2.4 {mg/g_creat} (Normal) Range: 0.0-30.0 Microalbumin, Urine <3.0 ug/mL (Normal) Creatinine, Urine 127.3 mg/dL (Normal) 42-Twc-439843:06 METABOLIC PANEL, COMPREHENSIVE Comments: PATIENT WAS FASTINGPERFORMED BY: Note6370 [facility]cent[facility] [id number] (33364) ALT (SGPT) 15 [iU]/L (Normal) Range: 0-44 [...] Glucose, Serum 136 mg/dL (Abnormal) Range: 65-99 23-Tzg-614871:06 LIPID PANEL (72628) Comments: PATIENT WAS FASTINGPERFORMED BY: HakiaSt. Mary's HospitalZzmswe4111 [facility] [id number] LDL/HDL Ratio 1.5 {ratio_units} (Normal) Range: 0.0-3.6 Comments: LDL/HDL Ratio Men Women 1/2 Avg.Risk 1.0 1.5 Av g.Risk 3.6 3.2 2X Avg.Risk 6.2 5.0 3X Avg.Risk 8.0 6.1 LDL Cholesterol Calc 63 mg/dL (Normal) Range: 0-99 VLDL Cholesterol Ezequiel 25 mg/dL (Normal) Range: 5-40 HDL Cholesterol 42 mg/dL (Normal) Triglycerides 126 mg/dL (Normal) Range: 0-149 Cholesterol, Total 130 mg/dL (Normal) Range: 100-199 05-Vea-959807:06 CBC W/AUTO DIFF WBC (28917) Comments: PATIENT WAS FASTINGPERFORMED BY: HakiaSt. Mary's HospitalJemdzf2026 [facility] [id number] Immature Grans (Abs) 0.0 {x10E3/uL} (Normal) Range: [...] (Normal) Range: 3.4-10.8 :32 HgA1C , Office (71218) HgA1C , Office 7.3 % (Abnormal) Range: 4.6 - 7.1 :32 Blood Glucose , Office (75622) Blood Glucose , Office 185 (Normal) :33 ALDOSTERONE (61812) Comments: PATIENT NOT FASTINGPERFORMED BY: Hakia[address] [id number] Aldosterone 3.8 ng/dL (Normal) Range: 0.0-30.0 Comments: This test was developed and its performance characteristicsdetermined by [employer]. It has not been cleared or approvedby the Food and Drug Administration. :33 RENIN (61836) Comments: PATIENT NOT FASTINGPERFORMED BY: Hakia[address] [id number] Renin Activity, Plasma 0.402 {ng/mL/hr} Range: 0.167-5.380 (Normal) Comments: This test was developed and its performance characteristicsdetermined by [employer]. It has not been cleared or approvedby the Food and Drug Administration. :31 METANEPHRINES - URINE (17581) Comments: PATIENT NOT FASTINGPERFORMED BY: [address] [id number] Metanephrine, U,24hr 238 {ug/24_hr} (Normal) Range: 45-290 Comments: (Hypertensive) >17 years 11 months: 35 - 460 Metanephrine, Ur 119 ug/L (Normal) Normetanephr.,U,24h 370 {ug/24_hr} (Normal) Range: 82-500 Comments: (Hypertensive) >17 years 11 months: 110 - 1050 Normetanephrine, Ur 185 ug/L (Normal) :31 CATECHOLAMINES TOTAL, URINE Comments: PATIENT NOT FASTINGPERFORMED BY: [address] [id number] Information: START 09/25/2016@447AM (62705) Dopamine, Ur, 24hr 280 {ug/24_hr} (Normal) Range: 0-510 Dopamine, Urine 140 ug/L (Normal) Norepinephrine,U,24h 42 {ug/24_hr} (Normal) Range: 0-135 Norepinephrine, Ur 21 ug/L (Normal) Epinephrine, U, 24hr 4 {ug/24_hr} (Normal) Range: 0-20 Epinephrine, Urine 2 ug/L (Normal) :31 URINE VMA (67851) Comments: PATIENT NOT FASTINGPERFORMED BY: [address] [id number] VMA, Urine, 24hr 3.4 {mg/24_hr} (Normal) Range: 0.0-7.5 Comments: This test was developed and its performance characteristicsdetermined by [employer]. It has not been cleared or approvedby the Food and Drug Administration. VMA, Urine 1.7 mg/L (Normal) 15-Qyt-521781:05 Microscopic Examination Comments: PATIENT WAS FASTINGPERFORMED BY: [facility] Uhudbh7934 [facility] [id number] Bacteria None seen (Normal) Mucus Threads Present (Normal) Epithelial Cells (non renal) None seen {/hpf} (Normal) Range: 0 - 10 RBC 0-2 {/hpf} (Normal) Range: 0 - 2 WBC 0-5 {/hpf} (Normal) Range: 0 - 5 :05 LIPID PANEL (51003) Comments: PATIENT WAS FASTINGPERFORMED BY: [facility]QCritical [facility] hospital [id number] LDL/HDL Ratio 1.3 {ratio_units} (Normal) Range: 0.0-3.6 Comments: LDL/HDL Ratio Men Women 1/2 Avg.Risk 1.0 1.5 Av g.Risk 3.6 3.2 2X Avg.Risk 6.2 5.0 3X Avg.Risk 8.0 6.1 LDL Cholesterol Calc 61 mg/dL (Normal) Range: 0-99 VLDL Cholesterol Ezequiel 19 mg/dL (Normal) Range: 5-40 HDL Cholesterol 47 mg/dL (Normal) Triglycerides 94 mg/dL (Normal) Range: 0-149 Cholesterol, Total 127 mg/dL (Normal) Range: 100-199 08-Zky-264842:05 URINALYSIS, W/ MICRO (24367) Comments: PATIENT WAS FASTINGPERFORMED BY: DataKraft Rosado Att[facility] FoodsCritical access hospital [id number] Microscopic Examination See below: (Normal) Comments: Microscopic was indicated and was performed. Microscopic Examination MICRON (Normal) Comments: Microscopic follows if indicated. Nitrite, Urine Negative (Normal) Urobilinogen,Semi-Qn 0.2 mg/dL (Normal) Range: 0.2-1.0 Bilirubin Negative (Normal) Occult Blood Negative (Normal) Ketones Negative (Normal) Glucose Negative (Normal) Protein Negative (Normal) WBC Esterase Negative (Normal) Appearance Clear (Normal) Urine-Color Yellow (Normal) pH 5.5 (Normal) Range: 5.0-7.5 Specific Hudson 1.024 (Normal) Range: 1.005-1.030 46-Efv-103085:05 MICROALBUMIN: CREATININE RATIO Comments: PATIENT WAS FASTINGPERFORMED BY: [employer]70 [facility] [id number] (38275) AND (48080) Microalb/Creat Ratio <1.7 {mg/g_creat} (Normal) Range: 0.0-30.0 Microalbumin, Urine <3.0 ug/mL (Normal) Creatinine, Urine 171.8 mg/dL (Normal) :05 METABOLIC PANEL, COMPREHENSIVE Comments: PATIENT WAS FASTINGPERFORMED BY: LabCoMissy's CandyZwlqwv0086 [facility] [id number] (16117) ALT (SGPT) 15 [iU]/L (Normal) Range: 0-44 [...] Glucose, Serum 117 mg/dL (Abnormal) Range: 65-99 81-Sfk-588403:05 CBC W/AUTO DIFF WBC (53825) Comments: PATIENT WAS FASTINGPERFORMED BY: LabCo51 GiveOdrrir6833 [facility] [id number] Immature Grans (Abs) 0.0 {x10E3/uL} (Normal) Range: [...] 4.14-5.80 WBC 4.9 {x10E3/uL} (Normal) Range: 3.4-10.8 22-Rfc-485755:05 TSH (69552) Comments: PATIENT WAS FASTINGPERFORMED BY: VaultizeCoSummer [place]ille 7493070 [facility] [id number] TSH 3.460 {uIU/mL} (Normal) Range: 0.450-4.500 26-Paq-296601:05 T4, FREE (THYROXINE) (16092) Comments: PATIENT WAS FASTINGPERFORMED BY: [facility] [place] [address] [id number] T4,Free(Direct) 1.34 ng/dL (Normal) Range: 0.82-1.77 87-Knv-224896:05 T3, FREE (TRIDOTHYRONINE) (40547) Comments: PATIENT WAS FASTINGPERFORMED BY: LabCo Kiuhtq6557 [facility] [id number] Triiodothyronine,Free,Serum 3.0 pg/mL (Normal) Range: 2.0-4.4 55-Awg-401246:05 CALCIFIDIOL (19791) VIT D 25 Comments: PATIENT WAS FASTINGPERFORMED BY: LabCo Gllmhv5014 [facility] [id number] Vitamin D, 25-Hydroxy 46.6 ng/mL (Normal) Range: 30.0-100.0 Comments: Vitamin D deficiency has been defined by the [place] [facility] and an Endocrine Society practice guideline as alevel of serum 25-OH vitamin D less than 20 ng/mL (1,2).The Endocrine Society went on to further define vitamin Dinsufficiency as a level between 21 and 29 ng/mL (2).1. IOM ([place] of Medicine). 2010. Dietary reference intakes for calcium and D. [place]: The National Academies Press.2. Charles MF, Raissa NC, Nirmala ALBERT, et al. Evaluation, treatment, and prevention of vitamin D deficiency: an Endocrine Society clinical practice guideline. JCEM. 2010; 96(7):1911-30. :42 HgA1C , Office (67934) HgA1C , Office 6.6 % (Normal) Range: 4.6 - 7.1 :42 Blood Glucose , Office (15845) Blood Glucose , Office 117 (Normal) 28-Dvf-496745:59 HgA1C , Office (01325) HgA1C , Office 6.8 % (Normal) Range: 4.6 - 7.1 :59 Blood Glucose , Office (88451) Blood Glucose , Office 237 (Normal) :52 Rapid Flu (34528 x 2) Influenza A Ag neg (Normal) :19 HgA1C , Office (69692) HgA1C , Office 6.6 % (Normal) Range: 4.6 - 7.1 :19 Blood Glucose , Office (42154) Blood Glucose , Office 171 (Normal) 0-Srp-112925:43 Microscopic Examination Comments: PATIENT WAS FASTINGPERFORMED BY: Note6370 [facility] [id number] Bacteria Few (Normal) Mucus Threads Present (Normal) Epithelial Cells (non renal) 0-10 {/hpf} (Normal) Range: 0 - 10 RBC 0-2 {/hpf} (Normal) Range: 0 - 2 WBC 0-5 {/hpf} (Normal) Range: 0 - 5 :53 Serum Creatinine AND GFR Comments: [facility] [address] [place], [place], [address] EST GFR - AA 83 mL/min (Normal) Comments: GFR Calc EST GFR 69 mL/min (Normal) Comments: Non- GFR Calc CREAT,SERUM 1.12 mg/dL (Normal) Range: 0.70-1.30 Comments: The validity of the calculated GFR AND GFRAA in patients over70 years has not been determined. Clinical correlation isessential. :43 CALCIFIDIOL (59367) VIT D 25 Comments: PATIENT WAS FASTINGPERFORMED BY: Note6370 [facility] [id number] Vitamin D, 25-Hydroxy 55.4 ng/mL (Normal) Range: 30.0-100.0 Comments: Vitamin D deficiency has been defined by the [place] [facility] and an Endocrine Society practice guideline as alevel of serum 25-OH vitamin D less than 20 ng/mL (1,2).The Endocrine Society went on to further define vitamin Dinsufficiency as a level between 21 and 29 ng/mL (2).1. IOM ([place] of Medicine). 2010. Dietary reference intakes for calcium and D. [place]: The National Academies Press.2. Charles MF, Raissa NC, Nirmala ALBERT, et al. Evaluation, treatment, and prevention of vitamin D deficiency: an Endocrine Society clinical practice guideline. JCEM. 2010; 96(7):1911-30. :43 URINALYSIS, W/ MICRO (65281) Comments: PATIENT WAS FASTINGPERFORMED BY: Phonepluslin6370 [facility] [id number] Microscopic Examination See below: (Normal) Comments: Microscopic was indicated and was performed. Microscopic Examination MICRON (Normal) Comments: Microscopic follows if indicated. Nitrite, Urine Negative (Normal) Urobilinogen,Semi-Qn 0.2 mg/dL (Normal) Range: 0.2-1.0 Bilirubin Negative (Normal) Occult Blood Negative (Normal) Ketones Negative (Normal) Glucose Negative (Normal) Protein Negative (Normal) WBC Esterase Negative (Normal) Appearance Clear (Normal) Urine-Color Yellow (Normal) pH 5.5 (Normal) Range: 5.0-7.5 Specific Hudson 1.022 (Normal) Range: 1.005-1.030 3-Bjq-858180:43 MICROALBUMIN: CREATININE RATIO Comments: PATIENT WAS FASTINGPERFORMED BY: VaultizeJennifer [place] [id number] [facility] [id number] (89766) AND (73360) Microalb/Creat Ratio <2.4 {mg/g_creat} (Normal) Range: 0.0-30.0 Microalbumin, Urine <3.0 ug/mL (Normal) Creatinine, Urine 122.5 mg/dL (Normal) 1-Kdj-193550:43 METABOLIC PANEL, COMPREHENSIVE Comments: PATIENT WAS FASTINGPERFORMED BY: [facility]6370 [facility] [id number] (61226) ALT (SGPT) 12 [iU]/L (Normal) Range: 0-44 [...] Glucose, Serum 120 mg/dL (Abnormal) Range: 65-99 5-Vyo-753829:43 TSH (61010) Comments: PATIENT WAS FASTINGPERFORMED BY: Note63Metric InsightsCritical access hospital [id number] TSH 4.010 {uIU/mL} (Normal) Range: 0.450-4.500 6-Btz-318437:43 LIPID PANEL (04790) Comments: PATIENT WAS FASTINGPERFORMED BY: Note6370 [facility]Carolin[facility] [id number] LDL/HDL Ratio 1.2 {ratio_units} (Normal) Range: 0.0-3.6 [...] Range: 100-199 :43 CBC W/AUTO DIFF WBC (83622) Comments: PATIENT WAS FASTINGPERFORMED BY: SlapVidox EUCODIS BioscienceCarolinas ContinueCARE Hospital [facility] [id number] Immature Grans (Abs) 0.0 {x10E3/uL} (Normal) Range: [...] (Normal) Range: 3.4-10.8 :27 HgA1C , Office (22984) HgA1C , Office 6.6 % (Normal) Range: 4.6 - 7.1 :27 Blood Glucose , Office (71129) Blood Glucose , Office 168 (Normal) 43-Hkl-117348:08 Microscopic Examination Comments: PATIENT WAS FASTINGPERFORMED BY: [facility] Nfutyt9166 [facility] [id number] Bacteria None seen (Normal) Mucus Threads Present (Normal) Epithelial Cells (non renal) None seen {/hpf} (Normal) Range: 0 - 10 RBC None seen {/hpf} (Normal) Range: 0 - 2 WBC 0-5 {/hpf} (Normal) Range: 0 - 5 :08 CALCIFIDIOL (68223) VIT D 25 Comments: PATIENT WAS FASTINGPERFORMED BY: Hakia Lydjnd6041 [facility] [id number] Vitamin D, 25-Hydroxy 62.4 ng/mL (Normal) Range: 30.0-100.0 Comments: Vitamin D deficiency has been defined by the [place] of[place]icine and an Endocrine Society practice guideline as alevel of serum 25-OH vitamin D less than 20 ng/mL (1,2).The Endocrine Society went on to further define vitamin Dinsufficiency as a level between 21 and 29 ng/mL (2).1. IOM ([place] of Medicine). 2010. Dietary reference intakes for calcium and D. [place]: The National Academies Press.2. Charles MF, Raissa NC, Nirmala ALBERT, et al. Evaluation, treatment, and prevention of vitamin D deficiency: an Endocrine Society clinical practice guideline. JCEM. 2010; 96(7):1911-30. :08 URINALYSIS, W/ MICRO (12091) Comments: PATIENT WAS FASTINGPERFORMED BY: amcure Rqynzy5366 [facility] [id number] Microscopic Examination See below: (Normal) Comments: Microscopic was indicated and was performed. Microscopic Examination MICRON (Normal) Comments: Microscopic follows if indicated. Nitrite, Urine Negative (Normal) Urobilinogen,Semi-Qn 0.2 mg/dL (Normal) Range: 0.2-1.0 Bilirubin Negative (Normal) Occult Blood Negative (Normal) Ketones Negative (Normal) Glucose Negative (Normal) Protein Negative (Normal) WBC Esterase Negative (Normal) Appearance Clear (Normal) Urine-Color Yellow (Normal) pH 6.0 (Normal) Range: 5.0-7.5 Specific Hudson 1.022 (Normal) Range: 1.005-1.030 :08 MICROALBUMIN: CREATININE RATIO Comments: PATIENT WAS FASTINGPERFORMED BY: HakiaSt. Mary's HospitalXxybag0948 [facility] [id number] (77250) AND (35719) Microalb/Creat Ratio <1.8 {mg/g_creat} (Normal) Range: 0.0-30.0 Microalbumin, Urine <3.0 ug/mL (Normal) Creatinine, Urine 164.4 mg/dL (Normal) 51-Xeq-280272:08 METABOLIC PANEL, COMPREHENSIVE Comments: PATIENT WAS FASTINGPERFORMED BY: [employer]70 [facility] [id number] (04298) ALT (SGPT) 16 [iU]/L (Normal) Range: 0-44 [...] Glucose, Serum 108 mg/dL (Abnormal) Range: 65-99 58-Tcm-795659:08 LIPID PANEL (01120) Comments: PATIENT WAS FASTINGPERFORMED BY: Note6370 [facility] [id number] LDL/HDL Ratio 1.4 {ratio_units} (Normal) Range: 0.0-3.6 [...] Cholesterol, Total 124 mg/dL (Normal) Range: 100-199 66-Mkq-052674:08 CBC W/AUTO DIFF WBC Comments: PATIENT WAS FASTINGPERFORMED BY: [facility] Zjyvvg8816 [facility] [id number] Information: [id number] (30359) Immature Grans (Abs) 0.0 {x10E3/uL} (Normal) Range: [...] 5.5 {x10E3/uL} (Normal) Range: 3.4-10.8 :08 TSH (25909) Comments: PATIENT WAS FASTINGPERFORMED BY: LabJennifer Ville 0219170 [facility] [id number] TSH 4.000 {uIU/mL} (Normal) Range: 0.450-4.500 :03 HgA1C , Office (34654) HgA1C , Office 6.2 % (Normal) Range: 4.6 - 7.1 :03 Blood Glucose , Office (38317) Blood Glucose , Office 102 (Normal) :49 Throat Culture (10962) Comments: PATIENT NOT FASTINGPERFORMED BY: [place]nette [place] [id number] [facility] [id number] Information: SRC:THRT [id number] Result 1 RRF (Normal) Comments: Routine respiratory alfredo Upper Respiratory Culture Final report (Normal) :02 Rapid Strep Test, Office (09405) Rapid Strep Test, Office Negative (Normal) :48 Influenza A&B Viral Comments: PATIENT NOT FASTINGPERFORMED BY: [facility]6370 [facility] [id number] Information: SRC:NOS [id number] Culture (57038) Viral Culture,Rapid,Influenza FLUABN (Normal) Comments: Negative:No Influenza A or B detected. :26 Rapid Flu (61818 x 2) Influenza A Ag negative (Normal) :30 HgA1C , Office (49860) HgA1C , Office 7.3 % (Abnormal) Range: 4.6 - 7.1 :30 Blood Glucose , Office (56641) Blood Glucose , Office 191 (Normal) :52 Microscopic Examination Comments: PATIENT WAS FASTINGPERFORMED BY: Hakia Klxzrp1052 [facility] [id number] Bacteria None seen (Normal) Mucus Threads Present (Normal) Epithelial Cells (non renal) 0-10 {/hpf} (Normal) Range: 0 - 10 RBC 0-2 {/hpf} (Normal) Range: 0 - 2 WBC 0-5 {/hpf} (Normal) Range: 0 - 5 :52 CALCIFIDIOL (61443) VIT D 25 Comments: PATIENT WAS FASTINGPERFORMED BY: Hakia Uwfgbh0117 Rosado EUCODIS BioscienceCarolinas [facility] [id number] Vitamin D, 25-Hydroxy 44.9 ng/mL (Normal) Range: 30.0-100.0 Comments: Vitamin D deficiency has been defined by the [place] [facility] and an Endocrine Society practice guideline as alevel of serum 25-OH vitamin D less than 20 ng/mL (1,2).The Endocrine Society went on to further define vitamin Dinsufficiency as a level between 21 and 29 ng/mL (2).1. IOM ([place] of Medicine). 2010. Dietary reference intakes for calcium and D. [place]: The National Academies Press.2. Charles MF, Raissa NC, Nirmala ALBERT, et al. Evaluation, treatment, and prevention of vitamin D deficiency: an Endocrine Society clinical practice guideline. JCEM. 2010; 96(7):1911-30. :52 LIPID PANEL (61126) Comments: PATIENT WAS FASTINGPERFORMED BY: Hakia Fmukaa2780 [facility] [id number] LDL/HDL Ratio 2.4 {ratio_units} (Normal) Range: 0.0-3.6 [...] 196 mg/dL (Normal) Range: 100-199 :52 TSH (06761) Comments: PATIENT WAS FASTINGPERFORMED BY: DataKraft RosadoLast SizeCritical access hospital [id number] TSH 4.480 {uIU/mL} (Normal) Range: 0.450-4.500 :52 URINALYSIS, W/ MICRO (42013) Comments: PATIENT WAS FASTINGPERFORMED BY: DataKraft [facility] [id number] Microscopic Examination See below: (Normal) Comments: Microscopic was indicated and was performed. Microscopic Examination MICRON (Normal) Comments: Microscopic follows if indicated. Nitrite, Urine Negative (Normal) Urobilinogen,Semi-Qn 0.2 mg/dL (Normal) Range: 0.2-1.0 Bilirubin Negative (Normal) Occult Blood Negative (Normal) Ketones Negative (Normal) Glucose Negative (Normal) Protein Negative (Normal) WBC Esterase Negative (Normal) Appearance Clear (Normal) Urine-Color Yellow (Normal) pH 6.0 (Normal) Range: 5.0-7.5 Specific Hudson 1.024 (Normal) Range: 1.005-1.030 :52 MICROALBUMIN: CREATININE RATIO Comments: PATIENT WAS FASTINGPERFORMED BY: DataKraft [facility] [id number] (94029) AND (86999) Microalb/Creat Ratio <2.2 {mg/g_creat} (Normal) Range: 0.0-30.0 Microalbumin, Urine <3.0 ug/mL (Normal) Range: 0.0-17.0 Creatinine, Urine 135.9 mg/dL (Normal) Range: 22.0-328.0 :52 METABOLIC PANEL, COMPREHENSIVE Comments: PATIENT WAS FASTINGPERFORMED BY: amcure Pvrwlr9803 [facility] [id number]; will review at 02/21 appt (47299) ALT (SGPT) 13 [iU]/L (Normal) Range: 0-44 [...] Glucose, Serum 130 mg/dL (Abnormal) Range: 65-99 04-Pdx-10236:52 CBC W/AUTO DIFF WBC Comments: PATIENT WAS FASTINGPERFORMED BY: [facility] Ssqsxu2644 [facility] [id number] Information: [id number] (21439) Immature Grans (Abs) 0.0 {x10E3/uL} (Normal) Range: [...] (Normal) Range: 3.4-10.8 :56 HgA1C , Office (82171) HgA1C , Office 5.9 % (Normal) Range: 4.6 - 7.1 :56 Blood Glucose , Office (65579) Blood Glucose , Office 103 (Normal) :35 HgA1C , Office (80558) HgA1C , Office 6.0 % (Normal) Range: 4.6 - 7.1 :34 Blood Glucose , Office (00199) Blood Glucose , Office 135 (Normal) :45 Potassium Comments: Test performed at:[facility] [address] [place] [address] K 4.3 mmol/L (Normal) Range: 3.5-5.1 :54 Comp. Metabolic Panel (14) Comments: PATIENT WAS FASTINGPERFORMED BY: Bugsnag6370 [facility] [id number] Information: [id number] ALT (SGPT) 11 [iU]/L (Normal) Range: 0-44 [...] Glucose, Serum 117 mg/dL (Abnormal) Range: 65-99 :54 Lipid Panel With LDL/HDL Comments: PATIENT WAS FASTINGPERFORMED BY: HakiaSt. Mary's HospitalJffcom6337 [facility] [id number] Ratio LDL/HDL Ratio 2.1 {ratio_units} Range: 0.0-3.6 [...] 2.860 {uIU/mL} Comments: PATIENT WAS FASTINGPERFORMED BY: VOIQin [place] [id number] 9:54 (Normal) Range: 0.450-4.500 02-Aug-2014 Vitamin D, 25-Hydroxy 61.9 ng/mL (Normal) Comments: PATIENT WAS FASTINGPERFORMED BY: VOIQblin [place] [id number] 9:54 Range: 30.0-100.0 Comments: Vitamin D deficiency has been defined by the [place] of[place]icine and an Endocrine Society practice guideline as alevel of serum 25-OH vitamin D less than 20 ng/mL (1,2).The Endocrine Society went on to further define vitamin Dinsufficiency as a level between 21 and 29 ng/mL (2).1. IOM ([place] of Medicine). 2010. Dietary reference intakes for calcium and D. [place]: The National Academies Press.2. Charles MF, Raissa NC, Nirmala ALBERT, et al. Evaluation, treatment, and prevention of vitamin D deficiency: an Endocrine Society clinical practice guideline. JCEM. 2010; 96(7):1911-30. :13 HgA1C , Office (82282) HgA1C , Office 6.8 % (Normal) Range: 4.6 - 7.1 :13 Blood Glucose , Office (48765) Blood Glucose , Office 218 (Normal) 79-Waj-397988:24 Microscopic Examination Comments: PATIENT WAS FASTINGPERFORMED BY: VenueJam LabCalando Pharmaceuticals Hctedf7989 TrufaRutherford Regional Health Systemin [place] [id number] Bacteria None seen (Normal) Mucus Threads Present (Normal) Epithelial Cells (non renal) None seen {/hpf} (Normal) Range: 0 - 10 RBC 0-2 {/hpf} (Normal) Range: 0 - 2 WBC 0-5 {/hpf} (Normal) Range: 0 - 5 27-Umw-258762:24 Vitamin D Hydroxy (19740) Comments: PATIENT WAS FASTINGPERFORMED BY: amcure Supqpr3062 [facility] [id number] Vitamin D, 25-Hydroxy 35.7 ng/mL (Normal) Range: 30.0-100.0 Comments: Vitamin D deficiency has been defined by the [place] of[place]icine and an Endocrine Society practice guideline as alevel of serum 25-OH vitamin D less than 20 ng/mL (1,2).The Endocrine Society went on to further define vitamin Dinsufficiency as a level between 21 and 29 ng/mL (2).1. IOM ([place] of Medicine). 2010. Dietary reference intakes for calcium and D. [place]: The National Academies Press.2. Charles MF, Raissa OCONNELL, Nirmala ALBERT, et al. Evaluation, treatment, and prevention of vitamin D deficiency: an Endocrine Society clinical practice guideline. JCEM. 2010; 96(7):1911-30. 92-Tcv-382163:24 URINALYSIS, W/ MICRO (18655) Comments: PATIENT WAS FASTINGPERFORMED BY: amcure Cnmnkj1985 [facility] [id number] Microscopic Examination See below: (Normal) Comments: Microscopic was indicated and was performed. Microscopic Examination MICRON (Normal) Comments: Microscopic follows if indicated. Nitrite, Urine Negative (Normal) Urobilinogen,Semi-Qn 0.2 mg/dL (Normal) Range: 0.0-1.9 Bilirubin Negative (Normal) Occult Blood Negative (Normal) Ketones Negative (Normal) Glucose Negative (Normal) Protein Negative (Normal) WBC Esterase Negative (Normal) Appearance Clear (Normal) Urine-Color Yellow (Normal) pH 6.0 (Normal) Range: 5.0-7.5 Specific Hudson 1.025 (Normal) Range: 1.005-1.030 90-Psv-253110:24 TSH (10700) Comments: PATIENT WAS FASTINGPERFORMED BY: amcure Tnnsyy3991 [facility] [id number] TSH 2.740 {uIU/mL} (Normal) Range: 0.450-4.500 70-Yzz-155347:24 MICROALBUMIN: CREATININE RATIO Comments: PATIENT WAS FASTINGPERFORMED BY: [facility]6370 [facility] [id number] (91979) AND (07248) Microalb/Creat Ratio <1.5 {mg/g_creat} (Normal) Range: 0.0-30.0 Microalbumin, Urine <3.0 ug/mL (Normal) Range: 0.0-17.0 Creatinine, Urine 205.5 mg/dL (Normal) Range: 22.0-328.0 48-Bwx-488586:24 METABOLIC PANEL, COMPREHENSIVE Comments: PATIENT WAS FASTINGPERFORMED BY: [facility]6370 [facility] [id number] (04444) ALT (SGPT) 13 [iU]/L (Normal) Range: 0-44 [...] Glucose, Serum 138 mg/dL (Abnormal) Range: 65-99 37-Sjb-939156:24 LIPID PANEL (17968) Comments: PATIENT WAS FASTINGPERFORMED BY: [facility]6370 [facility] [id number] LDL/HDL Ratio 3.2 {ratio_units} (Normal) Range: 0.0-3.6 [...] Cholesterol, Total 221 mg/dL (Abnormal) Range: 100-199 10-Zsl-999988:24 CBC W/AUTO DIFF WBC Comments: PATIENT WAS FASTINGPERFORMED BY: [facility]6370 [facility] [id number] Information: [id number] (33334) Immature Grans (Abs) 0.0 {x10E3/uL} (Normal) Range: [...] 4.14-5.80 WBC 5.0 {x10E3/uL} (Normal) Range: 3.4-10.8 90-Srp-073531:00 Fecal Occult Blood , Office (10617) Fecal Occult Blood , Office (Inhouse) negative (Normal) 38-Zra-189755:57 PSA (PROSTATE SPECIFIC Comments: PATIENT NOT FASTINGPERFORMED BY: [facility]6370 [facility] [id number] Information: [id number] ANTIGEN) (V76.44) Prostate Specific Ag, 1.5 ng/mL [...] of malignant disease. :17 HgA1C , Office (43885) HgA1C , Office 7.0 % (Normal) Range: 4.6 - 7.1 :17 Blood Glucose , Office (76038) Blood Glucose , Office 118 (Normal) :50 HgA1C , Office (96410) HgA1C , Office 7.6 % (Abnormal) Range: 4.6 - 7.1 :50 Blood Glucose , Office (11198) Blood Glucose , Office 142 (Normal) 0-Bbz-101327:44 Microscopic Examination Comments: PATIENT WAS FASTINGPERFORMED BY: VOIQCritical access hospital [id number] Bacteria None seen (Normal) Mucus Threads Present (Normal) Epithelial Cells (non renal) None seen {/hpf} (Normal) Range: 0 - 10 RBC 0-2 {/hpf} (Normal) Range: 0 - 2 WBC 0-5 {/hpf} (Normal) Range: 0 - 5 :32 URINALYSIS, W/ MICRO (00948) Comments: PATIENT WAS FASTINGPERFORMED BY: VOIQCritical access hospital [id number] Microscopic Examination See below: (Normal) Comments: Microscopic was indicated and was performed. Microscopic Examination MICRON (Normal) Comments: Microscopic follows if indicated. Nitrite, Urine Negative (Normal) Urobilinogen,Semi-Qn 0.2 mg/dL (Normal) Range: 0.0-1.9 Bilirubin Negative (Normal) Ketones Negative (Normal) Occult Blood Negative (Normal) Glucose Trace (Abnormal) Protein Negative (Normal) WBC Esterase Negative (Normal) Appearance Clear (Normal) Urine-Color Yellow (Normal) pH 6.0 (Normal) Range: 5.0-7.5 Specific Hudson 1.024 (Normal) Range: 1.005-1.030 8-Lyi-988372:32 MICROALBUMIN: CREATININE RATIO Comments: PATIENT WAS FASTINGPERFORMED BY: VOIQCritical access hospital [id number] (28632) AND (41835) Microalb/Creat Ratio 1.3 {mg/g_creat} (Normal) Range: 0.0-30.0 Creatinine, Urine 188.3 mg/dL (Normal) Range: 22.0-328.0 Microalbumin, Urine 2.4 ug/mL (Normal) Range: 0.0-17.0 :32 TSH (92459) Comments: PATIENT WAS FASTINGPERFORMED BY: Hakia Jimizv0278 [facility] [id number] TSH 3.250 {uIU/mL} (Normal) Range: 0.450-4.500 :32 METABOLIC PANEL, COMPREHENSIVE Comments: PATIENT WAS FASTINGPERFORMED BY: [employer] [facility] [id number]; will review at 10/08 appt (23421) ALT (SGPT) 22 [iU]/L (Normal) Range: 0-44 [...] mg/dL (Abnormal) Range: 65-99 :32 LIPID PANEL (28684) Comments: PATIENT WAS FASTINGPERFORMED BY: unamia70 [facility] [id number] LDL/HDL Ratio 2.0 {ratio_units} (Normal) Range: 0.0-3.6 LDL Cholesterol Calc 84 mg/dL (Normal) Range: 0-99 HDL Cholesterol 43 mg/dL (Normal) Comments: According to ATP-III Guidelines, HDL-C >59 mg/dL is considered anegative risk factor for CHD. VLDL Cholesterol Ezequiel 24 mg/dL (Normal) Range: 5-40 Triglycerides 121 mg/dL (Normal) Range: 0-149 Cholesterol, Total 151 mg/dL (Normal) Range: 100-199 9-Jgm-009704:32 CBC WITH MANUAL DIFF Comments: PATIENT WAS FASTINGPERFORMED BY: LabCoSt. Mary's HospitalRafcfn2699 [facility] [id number] Information: [id number] (06848) Immature Grans (Abs) 0.0 {x10E3/uL} (Normal) Range: [...] (Normal) Range: 3.4-10.8 :37 HgA1C , Office (67509) HgA1C , Office 7.1 % (Normal) Range: 4.6 - 7.1 :37 Blood Glucose , Office (21316) Blood Glucose , Office 142 (Normal) :39 Microscopic Examination Comments: PATIENT WAS FASTINGPERFORMED BY: Hakia Tlfhed2801 [facility] [id number] Bacteria None seen (Normal) Mucus Threads Present (Normal) Epithelial Cells (non renal) None seen {/hpf} (Normal) Range: 0 - 10 RBC None seen {/hpf} (Normal) Range: 0 - 3 WBC 0-5 {/hpf} (Normal) Range: 0 - 5 :13 Vitamin D Hydroxy (76491) Comments: PATIENT WAS FASTINGPERFORMED BY: Note6370 [facility] [id number] Vitamin D, 25-Hydroxy 35.9 ng/mL (Normal) Range: 30.0-100.0 Comments: Vitamin D deficiency has been defined by the [place] [facility] and an Endocrine Society practice guideline as alevel of serum 25-OH vitamin D less than 20 ng/mL (1,2).The Endocrine Society went on to further define vitamin Dinsufficiency as a level between 21 and 29 ng/mL (2).1. IOM ([place] [employer]). 2010. Dietary reference intakes for calcium and D. [place]: The National Academies Press.2. Charles MF, Raissa NC, Nirmala ALBERT, et al. Evaluation, treatment, and prevention of vitamin D deficiency: an Endocrine Society clinical practice guideline. JCEM. 2010; 96(7):1911-30. :13 TSH (00880) Comments: PATIENT WAS FASTINGPERFORMED BY: [employer] [place] [id number] TSH 4.190 {uIU/mL} (Normal) Range: 0.450-4.500 :13 URINALYSIS, W/ MICRO (90838) Comments: PATIENT WAS FASTINGPERFORMED BY: [facility]6370 [facility] [id number] Microscopic Examination MICRON (Normal) Comments: Microscopic follows if indicated. Microscopic Examination See below: (Normal) Nitrite, Urine Negative (Normal) Urobilinogen,Semi-Qn 0.2 mg/dL (Normal) Range: 0.0-1.9 Bilirubin Negative (Normal) Occult Blood Negative (Normal) Ketones Negative (Normal) Glucose Negative (Normal) Protein Negative (Normal) Appearance Clear (Normal) WBC Esterase Negative (Normal) Urine-Color Yellow (Normal) pH 7.0 (Normal) Range: 5.0-7.5 Specific Hudson 1.023 (Normal) Range: 1.005-1.030 :13 MICROALBUMIN: CREATININE RATIO Comments: PATIENT WAS FASTINGPERFORMED BY: [facility]6370 [facility] [id number] (45010) AND (12240) Microalb/Creat Ratio 1.4 {mg/g_creat} (Normal) Range: 0.0-30.0 Creatinine, Urine 177.1 mg/dL (Normal) Range: 22.0-328.0 Microalbumin, Urine 2.5 ug/mL (Normal) Range: 0.0-17.0 :13 METABOLIC PANEL, COMPREHENSIVE Comments: PATIENT WAS FASTINGPERFORMED BY: [facility]6370 [facility] [id number] (97632) ALT (SGPT) 17 [iU]/L (Normal) Range: 0-44 [...] mg/dL (Abnormal) Range: 65-99 :13 LIPID PANEL (03137) Comments: PATIENT WAS FASTINGPERFORMED BY: [employer]70 [facility] [id number] LDL/HDL Ratio 1.8 {ratio_units} (Normal) Range: 0.0-3.6 [...] MANUAL DIFF Comments: PATIENT WAS FASTINGPERFORMED BY: HakiaSt. Mary's HospitalXrqeca9586 [facility] [id number] Information: [id number] (59568) Immature Grans (Abs) 0.0 {x10E3/uL} (Normal) Range: [...] (Normal) Range: 3.4-10.8 :31 HgA1C , Office (94763) HgA1C , Office 6.7 % (Normal) Range: 4.6 - 7.1 :31 Blood Glucose , Office (87223) Blood Glucose , Office 141 (Normal) :55 HgA1C , Office (98144) HgA1C , Office 6.4 % (Normal) Range: 4.6 - 7.1 :55 Blood Glucose , Office (65003) Blood Glucose , Office 116 (Normal) :33 Microscopic Examination Comments: PATIENT WAS FASTINGPERFORMED BY: [facility]6370 [facility] [id number] Bacteria None seen (Normal) Mucus Threads Present (Normal) Epithelial Cells (non renal) None seen {/hpf} (Normal) Range: 0 - 10 RBC 0-3 {/hpf} (Normal) Range: 0 - 3 WBC 0-5 {/hpf} (Normal) Range: 0 - 5 :33 PSA (PROSTATE SPECIFIC Comments: PATIENT WAS FASTINGPERFORMED BY: HakiaSt. Mary's HospitalYczpvm0606 [facility] [id number] ANTIGEN) (V76.44) Prostate Specific Ag, 1.5 ng/mL (Normal) Range: 0.0-4.0 Serum Comments: CheckiOIA methodology. .According to the [place] [employer], [...] or absence of malignant disease. :33 TSH (06295) Comments: PATIENT WAS FASTINGPERFORMED BY: [facility]6370 [facility] [id number] TSH 2.770 {uIU/mL} (Normal) Range: 0.450-4.500 :33 URINALYSIS, W/ MICRO (89980) Comments: PATIENT WAS FASTINGPERFORMED BY: [facility]6370 [facility] [id number] Microscopic Examination See below: (Normal) Microscopic Examination MICRON (Normal) Comments: Microscopic follows if indicated. Nitrite, Urine Negative (Normal) Urobilinogen,Semi-Qn 0.2 mg/dL (Normal) Range: 0.0-1.9 Bilirubin Negative (Normal) Occult Blood Negative (Normal) Ketones Negative (Normal) Glucose Negative (Normal) Protein Negative (Normal) WBC Esterase Negative (Normal) Appearance Clear (Normal) Urine-Color Yellow (Normal) pH 6.0 (Normal) Range: 5.0-7.5 Specific Hudson 1.026 (Normal) Range: 1.005-1.030 :33 MICROALBUMIN: CREATININE RATIO Comments: PATIENT WAS FASTINGPERFORMED BY: HakiaUNM HospitalArlpnf4642 [facility] [id number] (93907) AND (88070) Microalb/Creat Ratio 1.8 {mg/g_creat} (Normal) Range: 0.0-30.0 Microalbumin, Urine 3.6 ug/mL (Normal) Range: 0.0-17.0 Creatinine, Urine 203.4 mg/dL (Normal) Range: 22.0-328.0 :33 METABOLIC PANEL, COMPREHENSIVE Comments: PATIENT WAS FASTINGPERFORMED BY: Note6370 [facility] [id number] (72538) ALT (SGPT) 16 [iU]/L (Normal) Range: 0-44 [...] Glucose, Serum 114 mg/dL (Abnormal) Range: 65-99 :33 LIPID PANEL (48971) Comments: PATIENT WAS FASTINGPERFORMED BY: [employer]6370 [facility] [id number] LDL/HDL Ratio 1.3 {ratio_units} (Normal) Range: 0.0-3.6 LDL Cholesterol Calc 63 mg/dL (Normal) Range: 0-99 VLDL Cholesterol Ezequiel 25 mg/dL (Normal) Range: 5-40 HDL Cholesterol 47 mg/dL (Normal) Comments: According to ATP-III Guidelines, HDL-C >59 mg/dL is considered anegative risk factor for CHD. Triglycerides 123 mg/dL (Normal) Range: 0-149 Cholesterol, Total 135 mg/dL (Normal) Range: 100-199 :33 CBC WITH MANUAL DIFF Comments: PATIENT WAS FASTINGPERFORMED BY: [employer]6370 [facility] [id number] Information: [id number] (64216) Immature Grans (Abs) 0.0 {x10E3/uL} (Normal) Range: [...] (Normal) Range: 4.0-10.5 :22 HgA1C , Office (28293) HgA1C , Office 6.3 % (Normal) Range: 4.6 - 7.1 :22 Blood Glucose , Office (80524) Blood Glucose , Office 109 (Normal) :49 ALDOS 9.3 ng/dL (Normal) Range: 0.0-30.0 :49 CATU tDOP24 674 Range: 0-510 {ug/24_hr} Comments: TESTING PERFORMED AT [facility]. ORIGINAL REPORT ONFILE IN LAB CONTAINS ADDITIONAL [...] metanephrines and plasma catecolamines. TESTING PERFORMED AT [facility]. ORIGINAL REPORT ONFILE IN LAB CONTAINS [...] >150 0.39 - 1.31Performed at: - [facility] [address] [id number] Director: Bruno Williamson MD, Phone: [phone] - (Normal) Pam car y - 2 0 1 3 9 : 4 9 :49 VMA tVMA24 4.6 {mg/24_hr} (Normal) Range: 0.0-7.5 tVMA 2.2 mg/L (Normal) 53-Cbm-514068:15 BMP CO2 30.0 mmol/L (Normal) Range: 21.0-32.0 [...] 126 mg/dLsuggests DIABETES MELLITUS per A.D.A. criteria. 05-Jko-119590:15 CBCD ANC 3.6 3/uL (Normal) Range: 2.0-7.7 [...] 4.6-6.2 WBC 6.4 {k/mm3} (Normal) Range: 4.4-11.0 62-Ncj-84683:00 BRAIN W/WO CONTRAST Radiology Report See Note [...] Stauffer M.D.August 08, 2012 at 10:05:25 PM [id number] Signed AH/AH If you are the referring physician and would like to consult with theradiologist who provided this interpretation, please contact Chad Mast at [phone]. If this radiologist is unavailable,you will be directed to another radiologist to assist. If you are a patient with a question regarding this report, pleasecontactyour referring physician directly . Professional Interpretation Provided By: Ucha.se, Phone , These documents contain legally protected [...] on 08/08/122207 Sign by: MIKHAIL STAUFFER MD 39-Slr-533678:32 BRAIN/HEAD WITHOUT CONTRAST Radiology Report See Note [...] Fontenot M.D.August 04, 2012 at 5:16:58 PM [id number] Signed DN/DN If you are the referring physician and would like to consult with theradiologist who pro vided this interpretation, please contact Heather Ng M.D. at [phone]. If this radiologist is unavailable, youwillbe directed to another radiologist to assist. If you are a patient with a quest ion regarding this report, pleasecontactyour referring physician directly. Professional Interpretation Provided By: Ucha.se, Phone , These documents contain legally pro [...] 08/04/121718 Sign by: ___ HEATHER FONTENOT MD 26-Dnd-511583:36 CBCD ANC 4.1 3/uL (Normal) Range: 2.0-7.7 [...] 4.6-6.2 WBC 6.2 {k/mm3} (Normal) Range: 4.4-11.0 0-Aqo-050872:57 METABOLIC PANEL, Comments: PATIENT NOT FASTINGPERFORMED BY: [facility] Izwnjw6132 [facility] [id number] Information: [id number] COMPREHENSIVE (30868) ALT (SGPT) 13 [iU]/L (Normal) Range: 0-44 [...] (Normal) Range: 65-99 :01 HgA1C , Office (94853) HgA1C , Office 6.2 % (Normal) Range: 4.6 - 7.1 :01 Blood Glucose , Office (91931) Blood Glucose , Office 89 (Normal) :48 Microscopic Examination Comments: PATIENT WAS FASTINGPERFORMED BY: [employer] [facility] [id number] Bacteria Few (Normal) Mucus Threads Present (Normal) Epithelial Cells (non renal) None seen {/hpf} (Normal) Range: 0 - 10 RBC 0-3 {/hpf} (Normal) Range: 0 - 3 WBC 0-5 {/hpf} (Normal) Range: 0 - 5 :48 TSH (51515) Comments: PATIENT WAS FASTINGPERFORMED BY: Note6370 [facility] [id number] TSH 5.340 {uIU/mL} (Abnormal) Range: 0.450-4.500 :48 URINALYSIS, W/ MICRO (72936) Comments: PATIENT WAS FASTINGPERFORMED BY: [employer] Pqqwil1652 [facility] [id number] Microscopic Examination See below: (Normal) Microscopic Examination MICRON (Normal) Comments: Microscopic follows if indicated. Bilirubin Negative (Normal) Nitrite, Urine Negative (Normal) Urobilinogen,Semi-Qn 0.2 mg/dL (Normal) Range: 0.0-1.9 Occult Blood Negative (Normal) Ketones Negative (Normal) Glucose Negative (Normal) Protein Negative (Normal) WBC Esterase Negative (Normal) Appearance Clear (Normal) pH 5.5 (Normal) Range: 5.0-7.5 Urine-Color Yellow (Normal) Specific Hudson 1.028 (Normal) Range: 1.005-1.030 :48 MICROALBUMIN: CREATININE RATIO Comments: PATIENT WAS FASTINGPERFORMED BY: [employer]cure Knpedz9046 [facility] [id number] (85210) AND (03383) Microalb/Creat Ratio 1.6 {mg/g_creat} (Normal) Range: 0.0-30.0 Creatinine, Urine 195.7 mg/dL (Normal) Range: 22.0-328.0 Microalbumin, Urine 3.2 ug/mL (Normal) Range: 0.0-17.0 :48 METABOLIC PANEL, COMPREHENSIVE Comments: PATIENT WAS FASTINGPERFORMED BY: Note6370 [facility] [id number] (02354) ALT (SGPT) 16 [iU]/L (Normal) Range: 0-44 [...] mg/dL (Normal) Range: 65-99 :48 LIPID PANEL (04950) Comments: PATIENT WAS FASTINGPERFORMED BY: Note6370 [facility] [id number] LDL Cholesterol Calc 97 mg/dL (Normal) Range: [...] MANUAL DIFF Comments: PATIENT WAS FASTINGPERFORMED BY: LabParakweet6370 [facility] [id number] Information: [id number] (85275) Immature Grans (Abs) 0.0 {x10E3/uL} (Normal) Range: [...] (Normal) Range: 4.0-10.5 :46 HgA1C , Office (84464) HgA1C , Office 6.1 % (Normal) Range: 4.6 - 7.1 :46 Blood Glucose , Office (29740) Blood Glucose , Office 91 (Normal) 4-Rvt-687131:25 HEPATOBILLIARY IMG W/PHARM INT Radiology Report See [...] Cholecystokinin (0.02 ug/kg) was administered intravenously over s62-bncvtd period. The post CCK gallbladder ejection fraction eosprcnegahe01 minutes following Cholecystokinin administration was noted to [...] Richmond M.D.December 24, 2011 at 8:34:10 PM [id number] S igned RB/RB If you are the referring physician and would like to consult with theradiologist who provided this interpretation, please contact Chad Aragon at [phone]. If this radiologist is un available, you will bedirected to another radiologist to assist. If you are a patient with a question regarding this report, pleasecontactyour referring physician directly. Professional Interpretation P rovided By: Ucha.se, Phone , These documents contain legally protected [...] on 12/24/112116 Sign by: Aamir Richmond DO 35-Bkd-40033:56 GALLBLADDER Radiology Report See Note (Normal) Comments: [...] size of the right kidney. The right wrogdluujmzoif68.6 cm. Normal rolando al cortex. The right cortex measures 1.8 cm. Thereisno demonstrated renal mass or cyst. There is no right hydronephrosis. IMPRESSION:Sludge in the gallbladder lumen, with a thickened gallbladder wall .Correlation with nuclear medicine hepatobiliary scan is recommended. Signed:Jakob Hunt M.D.December 18, 2011 at 11:00:05 AM [id number] Signed GP/GP If you are the referring physician and would like to consult with theradiologist who provided this interpretation, please contact Chad Lao at [phone]. If this radiologist is unavailable, youwill be directed to another radiologist to assist. If you are a patient with a question regarding this report, pleasecontactyour referring physician directly. Professional Interpretation Provided By: Ucha.se, Phone , These documents contain legally protected [...] on 12/18/11 0940 by Gilbert YANG,Adrianaranscribed on 12/18/111116 by ITS IMPORTSign by Jakob Hunt MD 12/18/111117 Sign by: Jakob Hunt MD :41 HgA1C , Office (84321) HgA1C , Office 6.2 % (Normal) Range: 4.6 - 7.1 :41 Blood Glucose , Office (81899) Blood Glucose , Office 115 (Normal) :37 HgA1C , Office (77587) HgA1C , Office 6.4 % (Normal) Range: 4.6 - 7.1 :37 Blood Glucose , Office (52858) Blood Glucose , Office 119 (Normal) :44 PSA (PROSTATE SPECIFIC Comments: PATIENT WAS FASTINGPERFORMED BY: [employer]70 [facility] [id number] ANTIGEN) (V76.44) Prostate Specific Ag, 1.7 ng/mL [...] or absence of malignant disease. :44 TSH (39232) Comments: PATIENT WAS FASTINGPERFORMED BY: Note6370 [employer] [facility] [id number] TSH 2.660 {uIU/mL} (Normal) Range: 0.450-4.500 :44 URINALYSIS, W/ MICRO (87188) Comments: PATIENT WAS FASTINGPERFORMED BY: GUICHO H[employer] [facility] [id number] Microscopic Examination See below: (Normal) Microscopic Examination MICRON (Normal) Comments: Microscopic follows if indicated. Nitrite, Urine Negative (Normal) Urobilinogen,Semi-Qn 0.2 mg/dL (Normal) Range: 0.0-1.9 Bilirubin Negative (Normal) Occult Blood Negative (Normal) Ketones Negative (Normal) Glucose Negative (Normal) Protein Negative (Normal) WBC Esterase Negative (Normal) Appearance Clear (Normal) Urine-Color Yellow (Normal) pH 6.0 (Normal) Range: 5.0-7.5 Specific Hudson 1.024 (Normal) Range: 1.005-1.030 :44 MICROALBUMIN: CREATININE RATIO Comments: PATIENT WAS FASTINGPERFORMED BY: [employer] [facility] [id number] (57074) AND (18232) Microalb/Creat Ratio 1.1 {mg/g_creat} (Normal) Range: 0.0-30.0 Microalbumin, Urine 3.2 ug/mL (Normal) Range: 0.0-17.0 Creatinine, Urine 294.1 mg/dL (Normal) Range: 22.0-328.0 :44 Microscopic Examination Comments: PATIENT WAS FASTINGPERFORMED BY: GUICHO HakiaSt. Mary's HospitalWlimve6201 [facility] [id number] Bacteria None seen (Normal) Mucus Threads Present (Normal) Epithelial Cells (non renal) None seen {/hpf} (Normal) Range: 0 - 10 RBC 0-3 {/hpf} (Normal) Range: 0 - 3 WBC 0-5 {/hpf} (Normal) Range: 0 - 5 :44 METABOLIC PANEL, COMPREHENSIVE Comments: PATIENT WAS FASTINGPERFORMED BY: Hakia Whrnje8216 [facility] [id number] (73280) ALT (SGPT) 21 [iU]/L (Normal) Range: 0-55 [...] mg/dL (Abnormal) Range: 65-99 :44 LIPID PANEL (30635) Comments: PATIENT WAS FASTINGPERFORMED BY: [facility]6370 [facility] [id number] LDL/HDL Ratio 1.2 {ratio_units} (Normal) Range: 0.0-3.6 [...] MANUAL DIFF Comments: PATIENT WAS FASTINGPERFORMED BY: GUICHO LabCoSt. Mary's HospitalHdagpm4337 [facility] [id number] Information: [id number] (90296) Immature Grans (Abs) 0.0 {x10E3/uL} (Normal) Range: [...] (Normal) Range: 4.0-10.5 :25 HgA1C , Office (72857) HgA1C , Office 6.2 % (Normal) Range: 4.6 - 7.1 :25 Blood Glucose , Office (91712) Blood Glucose , Office 84 (Normal) :56 Blood Glucose , Office (08716) Blood Glucose , Office 96 (Normal) :29 [...] HEATHER FONTENOT MD :08 HgA1C , Office (86408) HgA1C , Office 6.3 % (Normal) Range: 4.6 - 7.1 :08 Blood Glucose , Office (46272) Blood Glucose , Office 108 (Normal) :50 URINALYSIS, W/ MICRO (28118) Comments: PATIENT WAS FASTINGPERFORMED BY: CB [facility] Yvgdrt5564 [facility] [id number] Microscopic Examination See below: (Normal) Microscopic Examination MICRON (Normal) Comments: Microscopic follows if indicated. Nitrite, Urine Negative (Normal) Urobilinogen,Semi-Qn 0.2 mg/dL (Normal) Range: 0.0-1.9 Bilirubin Negative (Normal) Occult Blood Negative (Normal) Ketones Negative (Normal) Glucose Negative (Normal) Protein Negative (Normal) WBC Esterase Negative (Normal) Appearance Clear (Normal) Urine-Color Yellow (Normal) pH 5.5 (Normal) Range: 5.0-7.5 Specific Hudson 1.022 (Normal) Range: 1.005-1.030 :50 MICROALBUMIN: CREATININE RATIO Comments: PATIENT WAS FASTINGPERFORMED BY: HakiaSt. Mary's HospitalSwsnnn5414 [facility] [id number] (35472) AND (52159) Microalb/Creat Ratio <.6 {mg/g_creat} (Normal) Range: 0.0-30.0 Creatinine, Urine 163.1 mg/dL (Normal) Range: 22.0-328.0 Microalbumin, Urine <1.0 ug/mL (Normal) Range: 0.0-17.0 Comments: Verified by repeat analysis :50 METABOLIC PANEL, COMPREHENSIVE Comments: PATIENT WAS FASTINGPERFORMED BY: [facility] Hospital6370 [facility] [id number] (81038) ALT (SGPT) 16 [iU]/L (Normal) Range: 0-55 [...] mg/dL (Abnormal) Range: 65-99 :50 LIPID PANEL (56180) Comments: PATIENT WAS FASTINGPERFORMED BY: VOIQCritical access hospital [id number] LDL Cholesterol Calc 68 mg/dL (Normal) Range: [...] MANUAL DIFF Comments: PATIENT WAS FASTINGPERFORMED BY: Note6370 [facility] [id number] Information: [id number] (12950) Immature Grans (Abs) 0.0 {x10E3/uL} (Normal) Range: [...] Examination Comments: PATIENT WAS FASTINGPERFORMED BY: LabCoSt. Mary's HospitalFndcae4624 [facility] [id number] Bacteria Few (Normal) Mucus Threads Present (Normal) Epithelial Cells (non renal) None seen {/hpf} (Normal) Range: 0 - 10 RBC None seen {/hpf} (Normal) Range: 0 - 3 WBC 0-5 {/hpf} (Normal) Range: 0 - 5 :58 HgA1C , Office (79610) HgA1C , Office 6.0 % (Normal) Range: 4.6 - 7.1 :58 Blood Glucose , Office (20237) Blood Glucose , Office 93 (Normal) 43-Myc-086417:13 PSA (PROSTATE SPECIFIC Comments: PATIENT NOT FASTINGPERFORMED BY: Hakia Otytjm2816 [facility] [id number] Information: [id number] ANTIGEN) (V76.44) Prostate Specific Ag, 1.5 ng/mL (Normal) Range: 0.0-4.0 Serum Comments: miacosa ECLIA methodology. .According to the [place] [employer] [...] of malignant disease. :16 HgA1C , Office (77423) HgA1C , Office 6.2 % (Normal) Range: 4.6 - 7.1 :16 Blood Glucose , Office (00118) Blood Glucose , Office 196 (Normal) 6-Slp-592276:15 TSH (89632) Comments: PATIENT WAS FASTINGPERFORMED BY: HakiaSt. Mary's HospitalTylypd2699 [facility] [id number] TSH 3.200 {uIU/mL} (Normal) Range: 0.450-4.500 4-Mbe-311928:15 MICROALBUMIN: CREATININE RATIO Comments: PATIENT WAS FASTINGPERFORMED BY: HakiaSt. Mary's HospitalJqahyn7273 [facility] [id number] (04605) AND (15835) Creatinine, Urine 168.7 mg/dL (Normal) Range: 22.0-328.0 Microalb/Creat Ratio 1.5 {mg/g_creat} (Normal) Range: 0.0-30.0 Microalbumin, Urine 2.5 ug/mL (Normal) Range: 0.0-17.0 8-Gez-021334:15 METABOLIC PANEL, COMPREHENSIVE Comments: PATIENT WAS FASTINGPERFORMED BY: HakiaSt. Mary's HospitalBjefai7518 [facility] [id number] (74482) A/G Ratio 1.8 (Normal) Range: 1.1-2.5 Alkaline [...] Glucose, Serum 108 mg/dL (Abnormal) Range: 65-99 2-Wqq-903464:15 LIPID PANEL (99553) Comments: PATIENT WAS FASTINGPERFORMED BY: HakiaSt. Mary's HospitalPlfowv1323 [facility] [id number] LDL/HDL Ratio 1.8 {ratio_units} (Normal) Range: 0.0-3.6 HDL Cholesterol 49 mg/dL (Normal) Comments: According to ATP-III Guidelines, HDL-C >59 mg/dL is considered anegative risk factor for CHD. LDL Cholesterol Calc 86 mg/dL (Normal) Range: 0-99 VLDL Cholesterol Ezequiel 25 mg/dL (Normal) Range: 5-40 Cholesterol, Total 160 mg/dL (Normal) Range: 100-199 Triglycerides 123 mg/dL (Normal) Range: 0-149 6-Voi-501329:15 CBC WITH MANUAL DIFF Comments: PATIENT WAS FASTINGPERFORMED BY: LabCoSt. Mary's HospitalXbjayt1695 [facility] [id number] Information: [id number] (44221) Immature Grans (Abs) 0.0 {x10E3/uL} (Normal) Range: [...] (Normal) Range: 4.0-10.5 :53 HgA1C , Office (84825) HgA1C , Office 6.3 % (Normal) Range: 4.6 - 7.1 :53 Blood Glucose , Office (01452) Blood Glucose , Office 123 (Normal) :51 HgA1C , Office (61441) HgA1C , Office 6.2 % (Normal) Range: 4.6 - 7.1 :51 Blood Glucose , Office (39585) Blood Glucose , Office 93 (Normal) :01 Microscopic Examination Comments: PATIENT WAS FASTINGPERFORMED BY: Phonepluslin6370 [facility] [id number] Bacteria Few (Normal) Mucus Threads Present (Normal) Epithelial Cells (non renal) None seen {/hpf} (Normal) Range: 0 - 10 RBC 0-3 {/hpf} (Normal) Range: 0 - 3 WBC 0-5 {/hpf} (Normal) Range: 0 - 5 :01 PSA (PROSTATE SPECIFIC Comments: PATIENT WAS FASTINGPERFORMED BY: [employer] LabCoLEAFER Vbixdx4718 [facility] [id number] ANTIGEN) (V76.44) Prostate Specific Ag, 1.4 ng/mL [...] or absence of malignant disease. :01 TSH (88770) Comments: PATIENT WAS FASTINGPERFORMED BY: HakiaSt. Mary's HospitalVzbzox8996 [facility] [id number] TSH 3.670 {uIU/mL} (Normal) Range: 0.450-4.500 36-Jqf-161548:01 URINALYSIS, W/ MICRO (74849) Comments: PATIENT WAS FASTINGPERFORMED BY: [facility]6370 [facility] [id number] Microscopic Examination See below: (Normal) Bilirubin Negative (Normal) Microscopic Examination MICRON (Normal) Comments: Microscopic follows if indicated. Nitrite, Urine Negative (Normal) Urobilinogen,Semi-Qn 0.2 mg/dL (Normal) Range: 0.0-1.9 Glucose Negative (Normal) Ketones Negative (Normal) Occult Blood Negative (Normal) Protein Negative (Normal) WBC Esterase Negative (Normal) Appearance Clear (Normal) pH 6.0 (Normal) Range: 5.0-7.5 Specific Hudson 1.024 (Normal) Range: 1.005-1.030 Urine-Color Yellow (Normal) 89-Vun-088669:01 MICROALBUMIN: CREATININE RATIO Comments: PATIENT WAS FASTINGPERFORMED BY: HakiaSt. Mary's HospitalMgntla4490 [facility] [id number] (17921) AND (62299) Microalb/Creat Ratio <.4 {mg/g_creat} (Normal) Range: 0.0-30.0 Microalbumin, Urine <1.0 ug/mL (Normal) Range: 0.0-17.0 Creatinine, Urine 226.9 mg/dL (Normal) Range: 22.0-328.0 20-Zrs-574845:01 METABOLIC PANEL, COMPREHENSIVE Comments: PATIENT WAS FASTINGPERFORMED BY: HakiaSt. Mary's HospitalGsjzbu0549 [facility] [id number] (69715) A/G Ratio 2.0 (Normal) Range: 1.1-2.5 Alkaline [...] Glucose, Serum 93 mg/dL (Normal) Range: 65-99 98-Qjs-128155:01 LIPID PANEL (83236) Comments: PATIENT WAS FASTINGPERFORMED BY: LabCoSt. Mary's HospitalZmmbog4509 [facility] [id number] HDL Cholesterol 46 mg/dL (Normal) Comments: According to ATP-III Guidelines, HDL-C >59 mg/dL is considered anegative risk factor for CHD. LDL Cholesterol Calc 70 mg/dL (Normal) Range: 0-99 LDL/HDL Ratio 1.5 {ratio_units} (Normal) Range: 0.0-3.6 VLDL Cholesterol Ezequiel 18 mg/dL (Normal) Range: 5-40 Cholesterol, Total 134 mg/dL (Normal) Range: 100-199 Triglycerides 89 mg/dL (Normal) Range: 0-149 88-Rsk-817238:01 CBC WITH MANUAL DIFF Comments: PATIENT WAS FASTINGPERFORMED BY: LabCoSt. Mary's HospitalEimphg7976 [facility] [id number] Information: [id number] ([id number]) Baso (Absolute) 0.0 {x10E3/uL} (Normal) Range: 0.0-0.2 [...] (Normal) Range: 4.0-10.5 :59 HgA1C , Office (97955) HgA1C , Office 6.6 % (Normal) Range: 4.6 - 7.1 :59 Blood Glucose , Office (63671) Blood Glucose , Office 105 (Normal) :29 HgA1C , Office (12425) Comments: done km HgA1C , Office 7.2 % (Abnormal) Range: 4.6 - 7.1 :29 Blood Glucose , Office (48417) Comments: done km Blood Glucose , Office 134 (Normal) :04 HgA1C , Office (05992) Comments: done km HgA1C , Office 6.7 % (Normal) Range: 4.6 - 7.1 :04 Blood Glucose , Office (51756) Comments: done km Blood Glucose , Office 141 (Normal) :27 TSH (00306) Comments: PATIENT WAS FASTINGPERFORMED BY: LabKISSmetricsSt. Mary's HospitalRsccon3774 [facility] [id number] TSH 3.740 {uIU/mL} (Normal) Range: 0.450-4.500 :27 METABOLIC PANEL, COMPREHENSIVE Comments: PATIENT WAS FASTINGPERFORMED BY: amcureSt. Mary's HospitalYqilrq7320 [facility] [id number] ([id number]) A/G Ratio 1.7 (Normal) Range: 1.1-2.5 Albumin, [...] Range: 135-145 :27 LIPOPROTEIN, BLD, BY NMR (52944) Comments: PATIENT WAS FASTINGClinical Information: ADD [id number], [id number] PERFORMED BY: VOIQCritical access hospital [id number] Cholesterol, Total 149 mg/dL (Normal) HDL-C 41 [...] > 1200 . Triglycerides 117 mg/dL (Normal) :27 CBC WITH MANUAL DIFF (75142) Comments: PATIENT WAS FASTINGPERFORMED BY: [facility]ue[facility]NextGreatPlaceCar[facility] [id number] Baso (Absolute) 0.0 {x10E3/uL} (Normal) Range: 0.0-0.2 [...] (Normal) Range: 4.0-10.5 :55 HgA1C , Office (21691) Comments: done km HgA1C , Office 5.9 % (Normal) Range: 4.6 - 7.1 :55 Blood Glucose , Office (43414) Comments: done km Blood Glucose , Office 115 (Normal) 49-Uxr-357931:10 TSH (79635) Comments: REpeat first week in September; PATIENT NOT FASTINGClinical Information: ADD DRAW FEE [id number] ADD J [id number] PERFORMED BY: LabCoSt. Mary's HospitalCokvvd0926 [facility] [id number] TSH 3.800 {uIU/mL} (Normal) Range: 0.450-4.500 65-Prs-954115:48 TSH (32081) Comments: PATIENT WAS FASTINGPERFORMED BY: [facility]6370 [facility] [id number] TSH 4.538 {uIU/mL} (Abnormal) Range: 0.450-4.500 57-Kyc-507613:48 MICROALBUMIN: CREATININE RATIO Comments: PATIENT WAS FASTINGPERFORMED BY: [address] [id number] ([id number]) AND (75198) Creatinine, Urine 370.1 mg/dL (Abnormal) Range: 22.0-328.0 Microalb/Creat Ratio 1.0 {ug/mg_creat} (Normal) Range: 0.0-30.0 Microalbumin, Urine 3.7 ug/mL (Normal) Range: 0.0-17.0 06-Enm-966739:48 METABOLIC PANEL, COMPREHENSIVE Comments: PATIENT WAS FASTINGPERFORMED BY: [facility]izeHar[facility]6370 [facility] [id number] (44657) A/G Ratio 1.6 (Normal) Range: 1.1-2.5 Albumin, [...] Sodium, Serum 140 mmol/L (Normal) Range: 135-145 71-Ceb-583387:48 CBC WITH MANUAL DIFF (02400) Comments: PATIENT WAS FASTINGClinical Information: ADD DRAW FEE [id number] ADD J [id number] PERFORMED BY: LabHarbor Beach [facility] Hospital6370 [facility] [id number] Baso (Absolute) 0.0 {x10E3/uL} (Normal) Range: 0.0-0.2 [...] {x10E3/uL} (Normal) Range: 4.0-10.5 :48 LIPID PANEL (79146) Comments: PATIENT WAS FASTINGPERFORMED BY: [facility] Frjmse1750 [facility] [id number] Cholesterol, Total 171 mg/dL (Normal) Range: 100-199 HDL Cholesterol 45 mg/dL (Normal) Comments: According to ATP-III Guidelines, HDL-C >59 mg/dL is considered anegative risk factor for CHD. LDL Cholesterol Calc 99 mg/dL (Normal) Range: 0-99 LDL/HDL Ratio 2.2 {ratio_units} (Normal) Range: 0.0-3.6 Triglycerides 133 mg/dL (Normal) Range: 0-149 VLDL Cholesterol Ezequiel 27 mg/dL (Normal) Range: 5-40 :24 HgA1C , Office (26658) Comments: done HgA1C , Office 6.5 % (Normal) Range: 4.6 - 7.1 :24 Blood Glucose , Office (69663) Comments: done Blood Glucose , Office 113 (Normal) :38 HgA1C , Office (10579) Comments: done HgA1C , Office 6.0 % (Normal) Range: 4.6 - 7.1 :38 Blood Glucose , Office (15594) Comments: done Blood Glucose , Office 132 (Normal) :09 PSA,TOT SCREEN 1.30 ng/mL (Normal) Range: 0.00-4.00 Comments: This test was performed using the TPSA method for the[facility] chemistry system.Values obtained with different assay methods cannot be usedinterchangably.When changing PSA assays in the course of monito ring apatient, additional sequential testing should be carriedout to confirm baseline values. :00 HgA1C , Office (08829) Comments: done sylvain HgA1C , Office 7.4 % (Abnormal) Range: 4.6 - 7.1 :00 Blood Glucose , Office (11925) Comments: done sylvain Blood Glucose , Office 138 (Normal) :32 MYOCARD PERF SPECT REST/STRESS Radiology Report See Note (Normal) Comments: Exam Number: [id number] MYOCARDIAL PERFUSION SCAN TECHNIQUEThe patient was injected [...] of 60%. Reported By: LOUIS CASTILLO M.D. 21-Eec-349841:27 URINALYSIS W/O MICRO (66870) Comments: PATIENT WAS FASTINGPERFORMED BY: HakiaSt. Mary's HospitalAomeyr1647 [facility] [id number] Appearance Clear (Normal) Bilirubin Negative (Normal) Glucose Negative (Normal) Ketones Negative (Normal) Microscopic Examination MICRON (Normal) Comments: Microscopic follows if indicated. Nitrite, Urine Negative (Normal) Occult Blood Negative (Normal) pH 7.5 (Normal) Range: 5.0-7.5 Protein Trace (Normal) Specific Hudson 1.023 (Normal) Range: 1.005-1.030 Urine-Color Yellow (Normal) Urobilinogen,Semi-Qn 0.2 mg/dL (Normal) Range: 0.0-1.9 WBC Esterase Negative (Normal) 65-Fyv-714633:27 TSH (47332) Comments: PATIENT WAS FASTINGPERFORMED BY: Hakia Zjggaz1505 [facility] [id number] TSH 3.505 {uIU/mL} (Normal) Range: 0.350-5.500 Comments: Adult TSH concentrations below 5.5 uIU/mL do not rule out the presence of subclinical hypothyroidism. 09-Tsh-119103:27 MICROALBUMIN URINE QUANT Comments: PATIENT WAS FASTINGPERFORMED BY: Hakia Zmhznk7501 [facility] [id number] ([id number]) Microalbum.,U,Random 4.4 ug/mL (Normal) Range: 0.0-17.0 04-Dkw-179193:27 METABOLIC PANEL, COMPREHENSIVE Comments: PATIENT WAS FASTINGPERFORMED BY: HakiaSummer Ville 7493070 [facility] [id number] ([id number]) A/G Ratio 1.8 (Normal) Range: 1.1-2.5 Albumin, [...] Sodium, Serum 140 mmol/L (Normal) Range: 135-145 80-Int-515915:27 CBC WITH MANUAL DIFF (73734) Comments: PATIENT WAS FASTINGClinical Information: ADD [id number], ADD [id number] PERFORMED BY: LabHar[facility] Hospital6370 [facility] [id number] Baso (Absolute) 0.0 {x10E3/uL} (Normal) Range: 0.0-0.2 [...] {x10E3/uL} (Normal) Range: 4.0-10.5 :27 LIPID PANEL (24750) Comments: PATIENT WAS FASTINGPERFORMED BY: LabCoSt. Mary's HospitalHxlrlr5189 [facility] [id number] LDL/HDL Ratio 2.4 {ratio_units} (Normal) Range: 0.0-3.6 Cholesterol, Total 212 mg/dL (Abnormal) Range: 100-199 Comment SPR (Normal) Comments: If initial LDL-cholesterol result is >100 mg/dL, assess forrisk factors. HDL Cholesterol 52 mg/dL (Normal) Range: 40-59 LDL Cholesterol Calc 123 mg/dL (Abnormal) Range: 0-99 Triglycerides 184 mg/dL (Abnormal) Range: 0-149 VLDL Cholesterol Ezequiel 37 mg/dL (Normal) Range: 5-40 :28 HgA1C , Office (36168) Comments: done km HgA1C , Office 6.9 % (Normal) Range: 4.6 - 7.1 :28 Blood Glucose , Office (03159) Comments: done km Blood Glucose , Office 157 (Normal) :58 HgA1C , Office (19728) Comments: done HgA1C , Office 6.6 % (Normal) Range: 4.6 - 7.1 :58 Blood Glucose , Office (17983) Comments: done Blood Glucose , Office 136 [...] was performed using the TPSA method for the[employer] chemistry system.Values obtained with different assay methods cannot be usedinterchangably.When changing PSA assays in the course of monito ring apatient, additionaly sequential testing should be carriedout to confirm baseline values. :29 TSH 3.67 {uIU/mL} (Normal) Range: 0.34-4.82 :39 Blood Glucose , Office (41233) Comments: done Blood Glucose , Office 98 (Normal) :39 HgA1C , Office (17733) Comments: done km HgA1C , Office 6.5 % (Normal) Range: 4.6 - 7.1 :57 HgA1C , Office (39460) HgA1C , Office 6.5 % (Normal) Range: 4.6 - 7.1 :57 Blood Glucose , Office (91864) Blood Glucose , Office 138 (Normal) :03 HgA1C , Office (64985) HgA1C , Office 6.6 % (Normal) Range: 4.6 - 7.1 1-Pcu-748130:03 Blood Glucose , Office (04467) Blood Glucose , Office 92 (Normal) 80-Raz-647722:28 LIVER ALB 3.6 g/dL (Normal) Range: 3.4-5.0 ALK P 96 U/L (Normal) Range: 50-136 ALT 47 [iU]/L (Normal) Range: 30-65 AST 20 U/L (Normal) Range: 15-37 D BILI 0.08 mg/dL (Normal) Range: 0.00-0.30 T BILI 0.44 mg/dL (Normal) Range: 0.00-1.00 T PROT 6.9 g/dL (Normal) Range: 6.4-8.2 68-Ciw-365774:28 MICROALB:CRE UR MALB:CREAT 8.4 {mg/g_CRE} (Normal) MICROALBUMIN,UR [...] Plan of Care Name Dates Details Instructions Right hand pain : Follow up if [...] 1 month- gen med / will need [facility] Indication: Physical exam WITHOUT abnormal findings [...] from H/O transient cerebral ischemia) : Reviewed Dross Skimmer Letter Indication: History of transient cerebral ischemia (Renamed from H/O transient cerebral ischemia) Hypertensive urgency : Reviewed Dross Skimmer Letter Indication: Hypertensive urgency Heart disease, hypertensive, [...] Current Prescription(s) Indication: Hypothyroidism Hypothyroidism : Reviewed Dross Skimmer Letter Indication: Hypothyroidism Uncontrolled type II diabetes [...] and i plan from there Planned Observations CALCIFIDIOL (32026) VIT D 25Indication: Vitamin D deficiency On: :44 Request TSH (24464)Indication: Hypothyroidism On: :43 Request URINALYSIS, W/ MICRO (93641)Indication: Controlled diabetes mellitus type II without complication On: :43 Request MICROALBUMIN: CREATININE RATIO (67290) AND (76289)Indication: Controlled diabetes mellitus type II without complication On: :43 Request METABOLIC PANEL, COMPREHENSIVE (65337)Indication: Controlled diabetes mellitus type II without complication On: :43 Request CBC W/AUTO DIFF WBC (87560)Indication: Controlled diabetes mellitus type II without complication On: :43 Request LIPOPROTEIN, BLD, BY NMR (55539)Indication: Hypercholesterolemia On: :43 Request T4, FREE (THYROXINE) (45176)Indication: Hypothyroidism On: :48 Request T3, FREE (TRIDOTHYRONINE) (94811)Indication: Hypothyroidism On: :48 Request URINALYSIS, W/ MICRO (00902)Indication: Essential hypertension On: :47 Request MICROALBUMIN: CREATININE RATIO (72955) AND (30782)Indication: Essential hypertension On: :47 Request METABOLIC PANEL, COMPREHENSIVE (99409)Indication: Essential hypertension On: :47 Request CBC W/AUTO DIFF WBC (47108)Indication: Essential hypertension On: :47 Request LIPID PANEL (15005)Indication: Hypercholesterolemia On: :47 Request TSH (98094)Indication: Hypothyroidism On: :47 Request CALCIFIDIOL (79876) VIT D 25Indication: Vitamin D deficiency On: :47 Request Influenza A&B Viral Culture (44917)Indication: Flu-like symptoms On: 9-Whc-133504:53 Request POTASSIUM SERUM (49890)Indication: Potassium disorder On: 69-Drk-551386:53 Request CALCIFEDIOL (42549)Indication: Vitamin D deficiency On: 28-Cmw-66343:36 Request TSH (10484)Indication: Hypothyroidism On: 55-Rol-68391:35 Request Lipid Panel (18150)Indication: Hypercholesterolemia On: 02-Qiy-79478:34 Request Metabolic Panel, Comprehensive (46106)Indication: Hypercholesterolemia On: 47-Suw-80107:34 Request URINE VMA (80818)Indication: Hypertensive urgency On: 85-Iqy-116073:54 Request Catecholamines,24-Hour Urine (83050)Indication: Hypertensive urgency On: 62-Rrq-647906:54 Request RENIN (33310)Indication: Hypertensive urgency On: 70-Bji-872770:54 Request ALDOSTERONE (25575)Indication: Hypertensive urgency On: 66-Iig-850188:54 Request METANEPHRINES (97164)Indication: Hypertensive urgency On: 53-Izh-852985:54 Request CBC (Auto) (97981)Indication: Hypertensive urgency On: 68-Uil-909384:36 Request Metabolic Panel, Basic (74893)Indication: Hypertensive urgency On: 55-Ode-736638:36 Request TSH (50398)Indication: Hypertensive urgency On: 11-Sji-573955:24 Request CBC WITH MANUAL DIFF (03481)Indication: Hypertensive urgency On: :24 Request METABOLIC PANEL, COMPREHENSIVE (77678)Indication: Hypertensive urgency On: :24 Request Troponin I (77872)Indication: Hypertensive urgency On: :20 Request CPK MB FRACTION (98322)Indication: Hypertensive urgency On: :20 Request CREATINE KINASE TOTAL (77323)Indication: Hypertensive urgency On: :20 Request TSH (52800)Indication: Hypothyroidism On: :56 Request HgA1C , Office (63301)Indication: Controlled diabetes mellitus type II without complication On: :56 Request PSA (PROSTATE SPECIFIC ANTIGEN) (V76.44)Indication: Screening for prostate cancer On: :20 Request TSH (55581)Indication: Uncontrolled type II diabetes mellitus On: :19 Request URINALYSIS, W/ MICRO (14985)Indication: Uncontrolled type II diabetes mellitus On: :19 Request MICROALBUMIN: CREATININE RATIO (23360) AND (51479)Indication: Uncontrolled type II diabetes mellitus On: :19 Request METABOLIC PANEL, COMPREHENSIVE (24798)Indication: Uncontrolled type II diabetes mellitus On: :19 Request LIPOPROTEIN, BLD, BY NMR (16787)Indication: Uncontrolled type II diabetes mellitus On: :19 Request LIPID PANEL (36183)Indication: Uncontrolled type II diabetes mellitus On: :19 Request CBC WITH MANUAL DIFF (81751)Indication: Uncontrolled type II diabetes mellitus On: :19 Request LIPOPROTEIN, BLD, BY NMR (94982)Indication: Hypercholesterolemia On: :57 Request LIPID PANEL (93345)Indication: Hypercholesterolemia On: :57 Request Comments: do in 3 months LIPID PANEL (58458)Indication: Controlled diabetes mellitus type II without complication On: :22 Request T3, FREE (TRIDOTHYRONINE) (86597)Indication: Abnormal TSH On: :40 Request T4, FREE (THYROXINE) (64597)Indication: Abnormal TSH On: :40 Request TSH (98331)Indication: Abnormal TSH On: :40 Request Comments: do in 2-3 mo TSH (87690)Indication: Controlled diabetes mellitus type II without complication On: :29 Request METABOLIC PANEL, COMPREHENSIVE (56490)Indication: Controlled diabetes mellitus type II without complication On: :29 Request MICROALBUMIN: CREATININE RATIO (96611) AND (84944)Indication: Controlled diabetes mellitus type II without complication On: :29 Request CBC WITH MANUAL DIFF (61446)Indication: Controlled diabetes mellitus type II without complication On: : Request LIPID PANEL (03000)Indication: Controlled diabetes mellitus type II without complication On: :29 Request PSA (PROSTATE SPECIFIC ANTIGEN) (V76.44)Indication: Uncontrolled type II diabetes mellitus On: :18 Request LIPID PANEL (62443)Indication: Hypercholesterolemia On: 66-Nnr-670216:02 Request HEPATIC FUNCTION PANEL (67983)Indication: Hypercholesterolemia On: 81-Odk-238836:02 Request TSH (21145) On: :45 Request METABOLIC PANEL, COMPREHENSIVE (07741) On: :44 Request LIPID PANEL (15790) On: :44 Request CBC WITH MANUAL DIFF (58811) On: :44 Request PSA (PROSTATE SPECIFIC ANTIGEN) (87981) On: :17 Request Comments: screening TSH (70281) On: :14 Request URINALYSIS W/O MICRO (63657) On: :14 Request MICROALBUMIN URINE QUANT (23714) On: :14 Request LIPID PANEL (91329) On: :14 Request METABOLIC PANEL, COMPREHENSIVE (14628) On: :14 Request CBC WITH MANUAL DIFF (34073) On: :14 Request MICROALBUMIN: CREATININE RATIO (56387) On: :07 Request AND (57430) METABOLIC PANEL, COMPREHENSIVE (77031) On: :07 Request LIPID PANEL (70703) On: : Request CBC WITH MANUAL DIFF (26115) On: : Request Planned Encounters Medical; 3 Month FU - On: 07-Feb-2018 10:00 [facility] Denisa Macias DO, DO, Kathleen Planned Procedures TD VACCINE ADULT (95694)By: On: 23-Dec-2017 Intent Anne Hastinsg Comments: a105a3/89965.5mlr dltd, IMMLONG Flu Vaccine (Quadrivalent) On: 28-Nov-2017 Intent 01660Bc: Visit, Nurse Comments: Lot #[id number]/30/19Site-L dltd, IMDose prefilled syringegiven by: Genna VARGAS.VIS reviewed and ABN signed X-RAY RIGHT KNEE, 3 VIEWS On: 31-Jul-2017 Intent (52560)By: Denisa Macias DO, DO, Kathleen Radiology - Knee - Right - Weight On: 31-Jul-2017 Intent BearingBy: Denisa Macias DO, DO, Kathleen ELECTROCARDIOGRAM, COMPLETE (ECG) On: 31-Jul-2017 Intent (80032)By: Denisa Macias DO Comments: nsr no acute chg Denisa Macias DO CT - Brain/Head (IV Contrast On: 31-Dec-2016 Intent Needed)By: Denisa Macias DO, DO, Kathleen Echo CompleteBy: Colleen GARCIA, On: 31-Dec-2016 Intent Denisa Valladares DO YTBC-BI-XNNC BEHAVIORAL On: 31-Dec-2016 Intent COUNSELING FOR OBESITY, 15 MINUTES (G0447)By: Denisa Macias DO, DO, Kathleen Flu Vaccine (Quadrivalent) On: 17-Dec-2016 Intent 29974Wj: Denisa Macias DO Comments: Lot:[id number]:09/09/17Amt:0.5mlRoute:IMSite: L DltdGiven By: YURY Valdez signed Denisa Macias DO MAGNETIC RESONANCE ANGIOGRAPHY OF On: 24-Sep-2016 Intent CAROTID AND VERTEBRAL VESSELS (01119)By: Denisa Macias DO, DO, Kathleen ELECTROCARDIOGRAM, COMPLETE (ECG) On: 24-Sep-2016 Intent (66204)By: Denisa Macias DO Comments: sinus gabby no acute chg- on BB Denisa Macias DO Renal Duplex ScanBy: Colleen GARCIA, On: 24-Sep-2016 Intent Denisa Valladares DO ELECTROCARDIOGRAM, COMPLETE (ECG) On: 10-Sep-2016 Intent (54927)By: Denisa Macias DO Comments: sinus gabby no acute chg Denisa Macias DO CT HEAD OR BRAIN WO CONTRAST On: 21-May-2016 Intent (29246)By: Denisa Macias DO, DO, Kathleen Flu Vaccine (Quadrivalent) On: 23-Dec-2015 Intent 16539Lf: Emeka Levin Comments: FLUlot: [id number]:08/08site:Lt deltoidroute:IMdose:.5mlDEMICK, [place] Echo CompleteBy: Colleen GARCIA, On: 24-Oct-2015 Intent Denisa Valladares DO CT SCAN OF CHEST WITH CONTRAST On: 24-Oct-2015 Intent (85215)By: Denisa Macias DO, DO, Kathleen CT - Chest (IV Contrast On: 20-Jun-2015 Intent Needed)By: Denisa Macias DO, DO, Kathleen Echo CompleteBy: Colleen GARCIA, On: 21-Feb-2015 Intent Denisa Valladares DO Flu Vaccine (Quadrivalent) On: 05-Jan-2015 Intent 66933Cd: Denisa Macias DO Comments: lot [id number]: 09/22/2015site/route L rafa, IMamt 0.5mlVIS and ABN signed when applicableMelody [facility]4 Denisa Macias DO ELECTROCARDIOGRAM, COMPLETE (ECG) On: 16-Nov-2014 Intent (61909)By: Denisa Macias DO Comments: nsr no acute changes - Denisa Macias DO Prevnar 13 (72549)By: Colleen GARCIA, On: 10-May-2014 Intent Denisa Valladares DO Comments: Lot:[id number]:08/07Dose:0.5mgRoute:imSite:l armGiven By:MIGUEL ÁNGEL signed Inhaler Demonstration (82956)By: On: 23-Mar-2014 Intent Hayley Stone CNP ADMINISTRATION OF INFLUENZA VIRUS On: 25-Dec-2013 Intent VACCINE (G0008)By: Visit, Nurse Comments: Lot #[id number]-L dltd, IMDose prefilled syringegiven by:YURY Seymour and IRAIS signed FLU VAC, SPLIT, >3 YEARS, On: 25-Dec-2013 Intent INTRAMUSC (63025)By: Visit, Nurse EKG (14896)By: Colleen GARCIA, On: 08-Oct-2013 Intent Denisa Colleen DO Denisa Comments: nsr no acute chg - same as 2012 and last echo 2012 Radiology - PelvisBy: Colleen GARCIA, On: 09-Jul-2013 Intent Denisa Colleen DODenisa Comments: attention R side SI jt Radiology - Hip - RightBy: Colleen On: 09-Jul-2013 Intent , Denisa Colleen DO, Denisa EMGBy: Colleen DO, Denisa Colleen On: 03-Apr-2013 Intent Denisa GARCIA Comments: lower extremity Nerve ConductionBy: Colleen GARCIA, On: 03-Apr-2013 Intent Denisa Colleen DO Denisa Comments: lower extremity Eprescribed prescriptions On: 03-Apr-2013 Intent (G8553)By: Anne Edge LPN PNEUM VAC ADLT/IMUMNOSPR, On: 19-Dec-2012 Intent SBC/INTRM (19113)By: Luis, Comments: Lot:[id number]:10/25/13Dose:0.5mgRoute:imSite:r armGiven By:MIGUEL ÁNGEL signed Marge ADMINISTRATION OF PNEUMOCOCCAL On: 19-Dec-2012 Intent VACCINE (G0009)By: Marge Smith FLU VAC, SPLIT, >3 YEARS, On: 17-Dec-2012 Intent INTRAMUSC (15517)By: Kely, Comments: Lot:[id number]:6.14Amt:0.5mlRoute:IMSite: L DltdGiven By: YURY Valdez LPN Eprescribed prescriptions On: 17-Dec-2012 Intent (G8553)By: Anne Edge LPN Eprescribed prescriptions On: 15-Sep-2012 Intent (G8553)By: Anne Edge LPN Renal Artery DopplerBy: Colleen On: 08-Aug-2012 Intent DO, Denisa Colleen DO, Denisa MRI - BrainBy: Colleen DO, On: 04-Aug-2012 Intent Denisa Colleen DO, Denisa CT - Brain/HeadBy: Colleen DO, On: 04-Aug-2012 Intent Denisa Colleen DO, Denisa Echo CompleteBy: Colleen DO, On: 04-Aug-2012 Intent Denisa Colleen DO, Denisa Carotid DopplerBy: Colleen DO, On: 04-Aug-2012 Intent Denisa Colleen DO, Denisa EKG (63277)By: Colleen DO, On: 28-Jul-2012 Intent Denisa Colleen DO, Denisa Comments: nsr no acute changes Echo CompleteBy: Colleen DO, On: 21-Mar-2012 Intent Denisa Colleen DO, Denisa Echo CompleteBy: Colleen DO, On: 19-Mar-2012 Intent Denisa Colleen DO, Denisa Eprescribed prescriptions On: 13-Mar-2012 Intent (G8553)By: Anne Edge LPN Eprescribed prescriptions On: 31-Dec-2011 Intent (G8553)By: Colleen DO, Denisa Colleen DO, Denisa Nuclear Medicine - HIDA w/CPKBy: On: 19-Dec-2011 Intent Ciesa WALLPAPER HANGER HELPER, Supriya EKG (45480)By: Colleen DO, On: 13-Dec-2011 Intent Denisa Colleen DO, Denisa Comments: nsr no acute chg Ultrasound - GallbladderBy: On: 29-Nov-2011 Intent Colleen DO, Denisa Colleen DO, Denisa Eprescribed prescriptions On: 29-Nov-2011 Intent (G8553)By: Anne Edge LPN FLU VAC, SPLIT, >3 YEARS, On: 27-Nov-2011 Intent INTRAMUSC (25327)By: Georgette VARGAS, Comments: Lot #[id number]/30/13Site-left deltoidgiven by: ALICIA Raymond ADMINISTRATION OF INFLUENZA VIRUS On: 27-Nov-2011 Intent VACCINE (G0008)By: Marissa Palomino LPN MRI - Lumbar Spine (IV Contrast On: 26-Jan-2011 Intent Needed)By: Denisa Macias DO, DO, Kathleen EKG (70208)By: Colleen GARCIA, On: 05-Jan-2011 Intent Denisa Valladares DO Comments: nsr no acute chg Cartoid DopplerBy: Colleen GARCIA, On: 05-Jan-2011 Intent Denisa Valladares DO EKG (25725)By: Colleen GARCIA, On: 06-Dec-2010 Intent Denisa Valladares DO Comments: nsr no acute chgn- Bio Z (37476)By: Colleen GARCIA, On: 06-Dec-2010 Intent Denisa Valladares DO Comments: stabel parameters- no chg in rx IMMUNIZ ADMNIN, 1 VAC, SNGL/COMBO On: 06-Dec-2010 Intent (76863)By: Denisa Macias DO, DO, Kathleen FLU VAC, SPLIT, >3 YEARS, On: 06-Dec-2010 Intent INTRAMUSC (72098)By: Denisa Macias DO, DO, Kathleen TDAP VACCINE >7 IM (14497)By: On: 30-Aug-2010 Intent Denisa Macias DO, DO, Comments: Lot #[id number]-0/25/13Site-left deltoidgiven by: ALICIA Raymond ADMINISTRATION OF INFLUENZA VIRUS On: 27-Dec-2009 Intent VACCINE (G0008)By: Edilia Vasquez LPN FLU VAC, SPLIT, >3 YEARS, On: 27-Dec-2009 Intent INTRAMUSC (66810)By: Pedro VARGAS, Comments: Lot #[id number] 4PExp-07/03Site-L armDose0.5mlgiven by:GLEN Cruz EKG (70473)By: Colleen GARCIA, On: 15-Nov-2009 Intent Denisa Valladares DO Comments: nsr no acute changes MRI - Shoulder(s) - LeftBy: On: 11-May-2009 Intent Denisa Macias DO, DO, Kathleen Bio Z (99019)By: Colleen GARCIA, On: 25-Oct-2008 Intent Denisa Valladares DO Comments: NORMAL SVR AND CO EKG (25725)By: Colleen GARCIA, On: 25-Oct-2008 Intent Denisa Valladares DO Comments: NSR NO ACUTE CHANGES Bio Z (63053)By: Colleen GARCIA, On: 04-Jun-2008 Intent Denisa Valladares DO Comments: normal IMMUNIZ ADMNIN, 1 VAC, SNGL/COMBO On: 05-Jan-2008 Intent (40081)By: Denisa Macias DO, DO, Kathleen FLU VAC, SPLIT, >3 YEARS, On: 05-Jan-2008 Intent INTRAMUSC (70311)By: Denisa Macias DO, DO, Kathleen Bio Z (89985)By: Colleen GARCIA, On: 07-Nov-2007 Intent Denisa Valladares DO Comments: normal svr and co Nuclear Stress Test/Stress On: 15-Sep-2007 Intent SPECT/TreadmillBy: Colleen GARCIA, Comments: [facility] Denisa Valladares DO Echo CompleteBy: Colleen GARCIA, On: 07-Aug-2007 Intent Denisa Valladares DO Cartoid DopplerBy: Colleen GARCIA, On: 07-Aug-2007 Intent Denisa Valladares DO EKG (65826)By: Colleen GARCIA, On: 07-Aug-2007 Intent Denisa Valladares DO Comments: nsr no acute ischemic changes EKG (03223)By: Colleen GARCIA, On: 29-Nov-2006 Intent Denisa Valladares DO Comments: nsr no acute ischemic changes EMGBy: Denisa Macias DO On: 04-Nov-2006 Intent Denisa GARCIA Nerve ConductionBy: Colleen GARCIA, On: 04-Nov-2006 Intent Denisa Colleen DO, Denisa Instructions Name Dates Details BMI 28.0-28.9,adult : How to access health [...] right upper quadrant Encounters Office Visit On: 23-Dec-2017 9:08 Encounter Reason: [...] The patient does have durable power of deputy prosecuting attorney and living will. The patient has [...] Yes the patient did have (mms 30/30wisper 3/) a mini mental status End: 19-Jan-2015 [...] The patient does have durable power of deputy prosecuting attorney and living will. The patient has noticed nothing from the geriatic depression scale. Other providers contributing to the patient's care are processing technologist (dr liu) and other: ([facility], vision test up to date).Encounter Diagnosis: Physical [...] has completed the [facility] preventative measures: PSA testing (2011) and colonoscopy (2011). The patient does have durable power of deputy prosecuting attorney and living will. The patient has noticed nothing from the geriatic depression scale . Other providers contributing to the patient's care are processing technologist (Dr. Antonio) and surgeon (Dr. Negro -- [...] needs help with are none. The pat melly has driven in past 6 months and [...] criselda toscano does have durable power of deputy prosecuting attorney and living will. The patient has noticed nothing from the geriatic depression scale. Other providers contributing to the patient's care are assistant credit manager and other: (assistant credit manager, ENT). Encounter Diagnosis: Type II Diabetes,controlled (250.00), [...] [facility] End: 07-Mar-2006 14:37 Payers MedicareTRICARE FOR LIFE, [place]EMIA [place]; joceline guarantor
--- OUTSIDE RECORDS SUMMARY | 2018-06-16 22:06 | XMS RPT_ITS | Continuity of Care Document ---
:1945 External Reference #:[id number] Author Organization [facility] Address [address] [place] [address] Phone Care Team Providers Name Role Phone [...] DO, Kathleen Start : 27-Dec-2016 Active Pen [place] 5/16 31G X 8 MM Miscellaneous 1 [...] (External Solution) uad (10 %) Inactive Comments:Trillium Jamul Levitra 10 MG Oral Tablet 1 Tablet [...] : 03-May-2016 End : 10-Sep-2016 Inactive ASPIRIN BUF(DGRJZH-ZPDYRB-SQC), 325MG (Oral Tablet) 1 (one) Tablet Daily [...] Summary (1) Result: Comments: See Note; NOTES: [facility] [address] [place] [address]. [address] [place], [place] [address] [phone] Fax REHABILITATION SERVICES DISCHAR GE SUMMARY MR#: [id number] Acct: [id number] Name: YOHANNES CADET Rep #: [id number] [...] please feel free to call me at [phone]. Thank you for the referral of this patient. Sincerely, Aftab Mendez, PT, <Electronically signed by Aftab Mendez PT, ATC> 12/05/16 1100 CC: Nik valdes DPM; Denisa Macias DO [facility] Signed 09-Oct-2016 Inital Evaluation (1) - PT Result: Comments: See Note; NOTES: [facility] [address] [place], [place] [id number] Fax REHABILITATION SERVICES INITIAL EVALUATION MR#: [id number] Acct: [id number] Name: YOHANNES CADET Rep #: [id number] : 1945 71 From: Aftab Mendez PT, ATC Referring Dr.: Nik Ch DPM Status: REG RCR Insurance: [employer] PART A B WPS FOR LIFE Patient's [...] to be FAXED BACK to us at [phone] for Medicare purposes. Please let me know if there are questions or concerns regarding this plan of care. Physician Signature: Date: <Electronically signed by Aftab Mendez PT, ATC> 1001 CC: Nik Ch DPM; Denisa Macias DO [facility] Signed For Medicare only, by signing this I certify the plan of care. Physicians Signature Date 21-May-2016 Brain/Head without Contrast Result: Comments: See Note; NOTES: [facility] Imaging Services [address] [place] [address] Verdana 4d Brain/Head without Contrast MR#: [id number] Acct: [id number] Name: YOHANNES CADET Rep #: [id number] : 1945 M 70 From: Sincere Solorio DO PCP: Denisa Macias DO Status: REG CLI Study: Brain/Head without Contrast Date of Exam: 05/21/16 Exam# [id number] Ordering Dr: Denisa Macias DO STUDY: CT [...] at 14:26 EST Tel , Service support [phone], CC: Denisa Macias DO Cold Type Composing Machine Operator: Signed 14-Nov-2015 Echocardiogram Complete Result: Comments: See Note; NOTES: [facility] Cardiovascular Services [address] [place] [address] Echo Complete 11/14/15 1303 MR#: [id number] Acct: [id number] Name: YOHANNES CADET Rep #: [id number] : 1945 70 From: Layo Raymond MD Attending Dr: Denisa Macias DO Status: REG CLI Ordering Dr: Denisa Macias DO Date: 11/14/15 Location: [facility] Sex: M C Admitted: Reason Fo r [...] Dictated: 10/24 05/10 1303 Date Transcribed: 11/14/151648 Cold Type Composing Machine Operator: Signed 14-Nov-2015 Chest WITH Contrast Result: Comments: See Note; NOTES: [facility] Imaging Services [address] [place], [place] [address] [address] Verdana 4d Chest WITH Contrast MR#: [id number] Acct: [id number] Name: YOHANNES CADET Rep #: [id number] : 1945 M 70 From: Asia Peres MD PCP: Denisa Macias DO Status: REG CLI Study: Chest WITH Contrast Date of Exam: 11/14/15 Exam# [id number] Ordering Dr: Denisa Macias TUDY: CT CHEST [...] Service support , CC: Denisa Macias DO Cold Type Composing Machine Operator: Signed 24-Oct-2015 ELECTROCARDIOGRAM, COMPLETE (ECG) (43187) Comments: sinus gabby - no acute chg - same as old and on BB Result: [MEASUREMENTS ANALYSIS] Date of Test: 10/24/2015 09:30:26; Heart Rate: 55; CT Interval: 184; QRS: 105; QT Interval: 404; Corrected QT Interval (QTc): 396; P Wave Union: 26; QRS Wave Union: 27; T Wave Union : 34; Blood Pressure: 138/70 [ECG DIAGNOSTIC STATEMENTS] Date of Test: 10/24/2015 09:30:26; Summary: Sinus Bradycardia WITHIN NORMAL LIMITS 29-Sep-2015 Knee 4 or More Views Result: Comments: See Note; NOTES: [facility] Imaging Services [address] [place] [address] Verdana 4d Knee 4 or More Views MR#: [id number] Acct: [id number] Name: YOHANNES CADET Rep #: [id number] : 1945 [facility] From: Tripp Miller MD PCP: Denisa Macias DO Status: [facility] CLI Study: Knee 4 or More Views Date of Exam: 09/29/15 Exam# [id number] Ordering Dr: Carrol Bautista DO STUDY: X-RAY [...] FACR at 9:18 EDT , Service support [phone], RAD/Knee 4 or More Views IMPRESSION: Moderate arthrosis of the patellofemoral joint Electronically Signed: Tripp Miller MD, FACR at 9:18 EDT , Service support [phone], CC: Carrol Kirkpatrick DO; Denisa Macias DO Cold Type Composing Machine Operator: Signed 27-Oct-2013 PT Discharge Summary Result: Comments: See Note; NOTES: [facility] [address] [facility]. [address] [place] [address] Fax REHABILITATION SERVICES DISCHARGE SUMMARY MR#: [id number] Acct: [id number] Name: YOHANNES CADET Rep #: [id number] : 1945 68 From: Baljit Silva Referring [...] referral. Baljit Silva PT T: GI JOB: [id number] <Electronically signed by Baljit pantoja > 10/27/13 0758 CC: Signed 27-Jul-2013 Inital Evaluation - PT Result: Comments: See Note; NOTES: [facility] [address] [facility] [facility] [address]. 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 His goals are to find [...] We discussed with patient possibly using the fjoi-zal-milpqfb orthotics before he considers fabricated orthotics due to cost. Uzair Silva, PT T: GI JOB: [id number] <Electronically signed by Baljit Silva > 07/27/13 1802 CC: Signed For Medicare only, by signing this I c ertify the plan of care. Physicians Signature Date 09-Jul-2013 Hip min 2 Views Result: Comments: See Note; NOTES: [facility] Imaging Services [address] [facility] [place] [address] Radiology Report MR#: [id number] Acct: [id number] Name: YOHANNES CADET Rep #: [id number] : 1945 M 67 From: Jakob Hunt MD PCP: Denisa Macias DO Status: REG CLI Study: Hip min 2 Views Date of Exam: 07/09/13 Exam# [id number] Ordering Dr: Denisa Macias DO STUDY : [...] Jakob Hunt MD at 14:44 EDT Tel [phone], Service support [phone], Fax CC: Denisa Macias DO Cold Type Composing Machine Operator: Signed 09-Jul-2013 Pelvis 1 or 2 Views Result: Comments: See Note; NOTES: [facility] Imaging Services [address] [place] [address] Radiology Report MR#: [id number] Acct: [id number] Name: YOHANNES CADET Rep #: [id number] : 1945 M 67 From: Jakob Hunt MD PCP: Denisa Macias DO Status: REG CLI Study: Pelvis 1 or 2 Views Date of Exam: 07/09/13 Exam# [id number] Ordering Dr: Denisa Macias TUDY: X-RAY - [...] Jakob Hunt MD at 13:32 EDT Tel [phone], Service support [phone], CC: Denisa Macias DO Cold Type Composing Machine Operator: Signed 09-Jul-2013 EKG (38010) Comments: nsr no acute chg - ant leads are old Result: [MEASUREMENTS ANALYSIS] Date of Test: 07/09/2013 08:48:02; Heart Rate: 57; CT Interval: 164; QRS: 106; QT Interval: 408; Corrected QT Interval (QTc): 403; P Wave Union: 25; QRS Wave Union: 60; T Wave Union : 62; Blood Pressure: 138/68 [ECG DIAGNOSTIC STATEMENTS] Date of Test: 07/09/2013 08:48:02; Summary: Sinus Bradycardia - Negative precordial T-waves. WITHIN NORMAL LIMITS Immunization Name Dates Details Influenza (3 years and up) on: 05-Jan-2008 Family History Unknown Family Member Name Dates Details Father Comments: ID/CVA at 84 Status: Active Social History Name [...] 2.27 m2 :15 Comments: [facility] [address] Pulse 57 /min Comments: Pattern: [...] Description Value Details :40 HgA1C , Office (93634) HgA1C , Office 6.6 % (Normal) Range: 4.6 - 7.1 :40 Blood Glucose , Office (65907) Blood Glucose , Office 75 (Normal) 22-Dcg-533004:20 COLON BIOPSY (CHOOSE See Note (Normal) Comments: [facility] [address] [place], [place], [id number] SITE) Comments: Patient: YOHANNES CADET : 1945 (72/M) Acct Num: [id number] Phys: Mg Norman Unit Num: [id number] Loc: LABSPEC Specimen: [id number] Received: 09/20/171532 Spec Type: C OLON BX TISSUES TISSUES: Rectum, NOS GROSS DESCRIPTION Received in fixative is one container labeled with the patient's name and designated rectal polyp. The specimen predominantly consists of fecal material mixed with possible soares soft tissue, measuring in aggregate 2.5 x 0.6 x0.1 cm. The specimen is totally submitted in one cassette. SJ:scott 09/23/17 TC: cannot code CPT: 59394 HEADER OPERATION: Colonoscopy with polypectomy PRE-OP DIAGNOSIS: Rectal bleeding TISSUE SUBMITTED: Rectal polyp MICROSCOPIC DESCRIPTION Slides are reviewed. MICROSCOPIC DIAGNOSIS Rectal polyp, polypectomy: Fragments of fecal material. Colonic mucosal tissue is not identified. SJ:scott 09/24/18 Signed Magdy Purvis 09/24/17 <signature on file> 38-Ktn-968570:08 Microscopic Examination Comments: PATIENT WAS FASTINGPERFORMED BY: i-drive70 [facility]letThe [facility] [id number] Bacteria None seen (Normal) Mucus Threads Present (Normal) Epithelial Cells (non renal) None seen {/hpf} (Normal) Range: 0 - 10 RBC None seen {/hpf} (Normal) Range: 0 - 2 WBC 0-5 {/hpf} (Normal) Range: 0 - 5 30-Opb-637213:08 T4, FREE (THYROXINE) (02148) Comments: PATIENT WAS FASTINGPERFORMED BY: i-drive70 CardiAQ Valve TechnologiesUofL Health [facility] Hospital [id number] T4,Free(Direct) 1.27 ng/dL (Normal) Range: 0.82-1.77 33-Xhp-028936:08 T3, FREE (TRIDOTHYRONINE) (77439) Comments: PATIENT WAS FASTINGPERFORMED BY: [facility] Tudfcc9884 [facility] [id number] Triiodothyronine,Free,Serum 2.7 pg/mL (Normal) Range: 2.0-4.4 50-Oja-526075:08 CALCIFIDIOL (65172) VIT D 25 Comments: PATIENT WAS FASTINGPERFORMED BY: [facility]6370 [facility] [id number] Vitamin D, 25-Hydroxy 57.4 ng/mL (Normal) Range: 30.0-100.0 Comments: Vitamin D deficiency has been defined by the [place] ofMedicine and an Endocrine Society practice guideline as alevel of serum 25-OH vitamin D less than 20 ng/mL (1,2).The Endocrine Society went on to further define vitamin Dinsufficiency as a level between 21 and 29 ng/mL (2).1. IOM ([place] of Medicine). 2010. Dietary reference intakes for calcium and D. [place]: The National Academies Press.2. Charles MF, Raissa NC, Nirmala ALBERT, et al. Evaluation, treatment, and prevention of vitamin D deficiency: an Endocrine Society clinical practice guideline. JCEM. 2010; 96(7):1911-30. 54-Irs-629101:08 TSH (51969) Comments: PATIENT WAS FASTINGPERFORMED BY: [facility]6[address] [facility] [id number] TSH 3.370 {uIU/mL} (Normal) Range: 0.450-4.500 28-Ktf-594228:08 URINALYSIS, W/ MICRO (24718) Comments: PATIENT WAS FASTINGPERFORMED BY: [facility] [id number] Microscopic Examination See below: (Normal) Comments: Microscopic was indicated and was performed. Microscopic Examination MICRON (Normal) Comments: Microscopic follows if indicated. Nitrite, Urine Negative (Normal) Urobilinogen,Semi-Qn 0.2 mg/dL (Normal) Range: 0.2-1.0 Bilirubin Negative (Normal) Occult Blood Negative (Normal) Ketones Negative (Normal) Glucose Negative (Normal) Protein Negative (Normal) WBC Esterase Negative (Normal) Appearance Clear (Normal) Urine-Color Yellow (Normal) pH 5.0 (Normal) Range: 5.0-7.5 Specific [place] 1.026 (Normal) Range: 1.005-1.030 17-Ksb-635355:08 MICROALBUMIN: CREATININE RATIO Comments: PATIENT WAS FASTINGPERFORMED BY: i-drive70 [facility]letThe [facility] [id number] (33344) AND (54467) Alb/Creat Ratio 1.3 {mg/g_creat} (Normal) Range: 0.0-30.0 Albumin, Urine 3.1 ug/mL (Normal) Creatinine, Urine 237.2 mg/dL (Normal) 45-Laf-475778:08 METABOLIC PANEL, COMPREHENSIVE Comments: PATIENT WAS FASTINGPERFORMED BY: i-drive70 [facility]letThe [facility] [id number] (88316) ALT (SGPT) 17 [iU]/L (Normal) Range: 0-44 [...] 8-27 Glucose 142 mg/dL (Abnormal) Range: 65-99 14-Ych-007107:08 CBC W/AUTO DIFF WBC (79452) Comments: PATIENT WAS FASTINGPERFORMED BY: [facility] [id number] Immature Grans (Abs) 0.0 {x10E3/uL} (Normal) Range: [...] 4.14-5.80 WBC 5.5 {x10E3/uL} (Normal) Range: 3.4-10.8 66-Cup-399850:08 LIPID PANEL (96636) Comments: PATIENT WAS FASTINGPERFORMED BY: [facility] Health SolutionsLydia Ville 0059470 [facility] [id number] LDL/HDL Ratio 1.2 {ratio} (Normal) Range: 0.0-3.6 [...] (Normal) Range: 100-199 :08 HgA1C , Office (79908) HgA1C , Office 6.9 % (Normal) Range: 4.6 - 7.1 7-Imx-595329:08 Blood Glucose , Office (12960) Blood Glucose , Office 123 (Normal) 1-Lom-312249:23 Blood Glucose , Office (81457) Blood Glucose , Office 69 (Normal) 6-Uci-062267:23 HgA1C , Office (46359) HgA1C , Office 7.1 % (Normal) Range: 4.6 - 7.1 :23 Blood Glucose , Office (69731) Blood Glucose , Office 84 (Normal) 61-Rsg-048728:06 Microscopic Examination Comments: PATIENT WAS FASTINGPERFORMED BY: [facility]6370 [facility] [id number] Bacteria Few (Normal) Mucus Threads Present (Normal) Epithelial Cells (non renal) None seen {/hpf} (Normal) Range: 0 - 10 RBC 0-2 {/hpf} (Normal) Range: 0 - 2 WBC 0-5 {/hpf} (Normal) Range: 0 - 5 0-Iqz-059290:25 Methymalonic Acid, Serum Comments: PATIENT NOT FASTINGPERFORMED BY: Maximus Media WorldwideZachary [place] 1682970 [facility] [id number] BY: [address] [id number] (23221) Methylmalonic Acid, Serum 586 nmol/L (Abnormal) Range: 0-378 5-Fqs-418989:25 METABOLIC PANEL, Comments: PATIENT NOT FASTINGPERFORMED BY: LabCoHoly Cross HospitalYrylhc0511 [facility] [id number] BY: LabCoCaitlin [place] [address] [facility] [id number] Inf ormation: [id number], [id number] COMPREHENSIVE (96512) ALT (SGPT) 11 [iU]/L (Normal) Range: 0-44 [...] Glucose, Serum 153 mg/dL (Abnormal) Range: 65-99 8-Ynm-509814:25 CBC (AUTO) (60435) Comments: PATIENT NOT FASTINGPERFORMED BY: Lab9sky.comHoboken University Medical CenterEfvfqu8858 [facility] [id number] BY: [employer] [id number] Platelets 213 {x10E3/uL} (Normal) Range: 150-379 RDW 14.0 % (Normal) Range: 12.3-15.4 MCHC 33.2 g/dL (Normal) Range: 31.5-35.7 MCH 27.5 pg (Normal) Range: 26.6-33.0 MCV 83 fL (Normal) Range: 79-97 Hematocrit 38.2 % (Normal) Range: 37.5-51.0 Hemoglobin 12.7 g/dL (Normal) Range: 12.6-17.7 RBC 4.62 {x10E6/uL} (Normal) Range: 4.14-5.80 WBC 4.6 {x10E3/uL} (Normal) Range: 3.4-10.8 4-Arg-162699:25 TSH (16518) Comments: PATIENT NOT FASTINGPERFORMED BY: [facility] Sngyue0697 [facility] [id number] BY: [employer] [id number] TSH 3.040 {uIU/mL} (Normal) Range: 0.450-4.500 3-Gzc-894991:25 VITAMIN B-12 (CYANOCOBALAMIN) Comments: PATIENT NOT FASTINGPERFORMED BY: [facility] Txlswu5055 [facility] [id number] BY: [employer] [id number] (57076) Vitamin B12 227 pg/mL (Normal) Range: 211-946 4-Vgj-142786:25 PSA (PROSTATE SPECIFIC Comments: PATIENT NOT FASTINGPERFORMED BY: [facility] Rieaka5281 [facility] [id number] BY: [address] [id number] ANTIGEN) (V76.44) Prostate Specific Ag, 2.0 ng/mL (Normal) Range: 0.0-4.0 Serum Comments: Dee ECLIA methodology. .According to the [place] Urological Association, Serum PSA shoulddecrease and remain at undetectable levels after radicalprostatectomy. The AUA defines biochemical recurrence as an initialPSA value 0.2 ng/mL or greater followed by a subsequent confirmatoryPSA value 0.2 ng/mL or greater.Values obtained with d ifferent assay methods or kits cannot be usedinterchangeably. Results cannot be interpreted as absolute evidenceof the presence or absence of malignant disease. :06 CALCIFIDIOL (04773) VIT D 25 Comments: PATIENT WAS FASTINGPERFORMED BY: el?6370 Rosado RoadDublin [place] [id number] Vitamin D, 25-Hydroxy 42.4 ng/mL (Normal) Range: 30.0-100.0 Comments: Vitamin D deficiency has been defined by the [place] ofMedicine and an Endocrine Society practice guideline as alevel of serum 25-OH vitamin D less than 20 ng/mL (1,2).The Endocrine Society went on to further define vitamin Dinsufficiency as a level between 21 and 29 ng/mL (2).1. IOM ([place] of Medicine). 2010. Dietary reference intakes for calcium and D. [place]: The National Academies Press.2. Charles MF, Raissa NC, Nirmala ALBERT, et al. Evaluation, treatment, and prevention of vitamin D deficiency: an Endocrine Society clinical practice guideline. JCEM. 2010; 96(7):1911-30. :06 TSH (87559) Comments: PATIENT WAS FASTINGPERFORMED BY: [employer] Aghgdj1284 Rosado RoadDublin [place] [id number] TSH 3.460 {uIU/mL} (Normal) Range: 0.450-4.500 :06 URINALYSIS, W/ MICRO (05512) Comments: PATIENT WAS FASTINGPERFORMED BY: [employer] Evurgm6279 Rosado RoadDublin [place] [id number] Microscopic Examination See below: (Normal) Comments: Microscopic was indicated and was performed. Microscopic Examination MICRON (Normal) Comments: Microscopic follows if indicated. Nitrite, Urine Negative (Normal) Urobilinogen,Semi-Qn 0.2 mg/dL (Normal) Range: 0.2-1.0 Bilirubin Negative (Normal) Occult Blood Negative (Normal) Ketones Negative (Normal) Glucose Negative (Normal) Protein Negative (Normal) WBC Esterase Negative (Normal) Appearance Clear (Normal) Urine-Color Yellow (Normal) pH 5.0 (Normal) Range: 5.0-7.5 Specific [place] 1.020 (Normal) Range: 1.005-1.030 69-Zjt-478026:06 MICROALBUMIN: CREATININE RATIO Comments: PATIENT WAS FASTINGPERFORMED BY: i-drive70 [address] [facility] [id number] (94230) AND (04728) Microalb/Creat Ratio <2.4 {mg/g_creat} (Normal) Range: 0.0-30.0 Microalbumin, Urine <3.0 ug/mL (Normal) Creatinine, Urine 127.3 mg/dL (Normal) 01-Rul-394690:06 METABOLIC PANEL, COMPREHENSIVE Comments: PATIENT WAS FASTINGPERFORMED BY: el?6370 DribletThe [facility]er Banks Hospital [id number] (96129) ALT (SGPT) 15 [iU]/L (Normal) Range: 0-44 [...] Glucose, Serum 136 mg/dL (Abnormal) Range: 65-99 36-Rux-846529:06 LIPID PANEL (95207) Comments: PATIENT WAS FASTINGPERFORMED BY: [facility] Health SolutionsHoboken University Medical CenterQdybxe6847 [facility] [id number] LDL/HDL Ratio 1.5 {ratio_units} (Normal) Range: 0.0-3.6 Comments: LDL/HDL Ratio Men Women 1/2 Avg.Risk 1.0 1.5 Av g.Risk 3.6 3.2 2X Avg.Risk 6.2 5.0 3X Avg.Risk 8.0 6.1 LDL Cholesterol Calc 63 mg/dL (Normal) Range: 0-99 VLDL Cholesterol Ezequiel 25 mg/dL (Normal) Range: 5-40 HDL Cholesterol 42 mg/dL (Normal) Triglycerides 126 mg/dL (Normal) Range: 0-149 Cholesterol, Total 130 mg/dL (Normal) Range: 100-199 43-Ghh-741364:06 CBC W/AUTO DIFF WBC (40304) Comments: PATIENT WAS FASTINGPERFORMED BY: [facility] SolutionsHoboken University Medical CenterDkdzbu4951 [facility] [id number] Immature Grans (Abs) 0.0 {x10E3/uL} (Normal) Range: [...] (Normal) Range: 3.4-10.8 :32 HgA1C , Office (67521) HgA1C , Office 7.3 % (Abnormal) Range: 4.6 - 7.1 :32 Blood Glucose , Office (05338) Blood Glucose , Office 185 (Normal) :33 ALDOSTERONE (53421) Comments: PATIENT NOT FASTINGPERFORMED BY: [facility] [id number] Aldosterone 3.8 ng/dL (Normal) Range: 0.0-30.0 Comments: This test was developed and its performance characteristicsdetermined by [employer]. It has not been cleared or approvedby the Food and Drug Administration. :33 RENIN (35162) Comments: PATIENT NOT FASTINGPERFORMED BY: [facility] [id number] Renin Activity, Plasma 0.402 {ng/mL/hr} Range: 0.167-5.380 (Normal) Comments: This test was developed and its performance characteristicsdetermined by [employer]. It has not been cleared or approvedby the Food and Drug Administration. :31 METANEPHRINES - URINE (63821) Comments: PATIENT NOT FASTINGPERFORMED BY: [address] [id number] Metanephrine, U,24hr 238 {ug/24_hr} (Normal) Range: 45-290 Comments: (Hypertensive) >17 years 11 months: 35 - 460 Metanephrine, Ur 119 ug/L (Normal) Normetanephr.,U,24h 370 {ug/24_hr} (Normal) Range: 82-500 Comments: (Hypertensive) >17 years 11 months: 110 - 1050 Normetanephrine, Ur 185 ug/L (Normal) :31 CATECHOLAMINES TOTAL, URINE Comments: PATIENT NOT FASTINGPERFORMED BY: [address] [id number] Information: START 09/25/2016@447AM (26057) Dopamine, Ur, 24hr 280 {ug/24_hr} (Normal) Range: 0-510 Dopamine, Urine 140 ug/L (Normal) Norepinephrine,U,24h 42 {ug/24_hr} (Normal) Range: 0-135 Norepinephrine, Ur 21 ug/L (Normal) Epinephrine, U, 24hr 4 {ug/24_hr} (Normal) Range: 0-20 Epinephrine, Urine 2 ug/L (Normal) :31 URINE VMA (71380) Comments: PATIENT NOT FASTINGPERFORMED BY: [address] [id number] VMA, Urine, 24hr 3.4 {mg/24_hr} (Normal) Range: 0.0-7.5 Comments: This test was developed and its performance characteristicsdetermined by [facility]. It has not been cleared or approvedby the Food and Drug Administration. VMA, Urine 1.7 mg/L (Normal) 16-Ffo-894706:05 Microscopic Examination Comments: PATIENT WAS FASTINGPERFORMED BY: [facility] Dpybvl1496 [facility] [id number] Bacteria None seen (Normal) Mucus Threads Present (Normal) Epithelial Cells (non renal) None seen {/hpf} (Normal) Range: 0 - 10 RBC 0-2 {/hpf} (Normal) Range: 0 - 2 WBC 0-5 {/hpf} (Normal) Range: 0 - 5 :05 LIPID PANEL (33789) Comments: PATIENT WAS FASTINGPERFORMED BY: mobilePeopleThe Outer [facility] Hospital [id number] LDL/HDL Ratio 1.3 {ratio_units} (Normal) Range: 0.0-3.6 Comments: LDL/HDL Ratio Men Women 1/2 Avg.Risk 1.0 1.5 Av g.Risk 3.6 3.2 2X Avg.Risk 6.2 5.0 3X Avg.Risk 8.0 6.1 LDL Cholesterol Calc 61 mg/dL (Normal) Range: 0-99 VLDL Cholesterol Ezequiel 19 mg/dL (Normal) Range: 5-40 HDL Cholesterol 47 mg/dL (Normal) Triglycerides 94 mg/dL (Normal) Range: 0-149 Cholesterol, Total 127 mg/dL (Normal) Range: 100-199 55-Scr-424536:05 URINALYSIS, W/ MICRO (95983) Comments: PATIENT WAS FASTINGPERFORMED BY: jobsite123 [address] SingOnThe [facility] Hospital [id number] Microscopic Examination See below: (Normal) Comments: Microscopic was indicated and was performed. Microscopic Examination MICRON (Normal) Comments: Microscopic follows if indicated. Nitrite, Urine Negative (Normal) Urobilinogen,Semi-Qn 0.2 mg/dL (Normal) Range: 0.2-1.0 Bilirubin Negative (Normal) Occult Blood Negative (Normal) Ketones Negative (Normal) Glucose Negative (Normal) Protein Negative (Normal) WBC Esterase Negative (Normal) Appearance Clear (Normal) Urine-Color Yellow (Normal) pH 5.5 (Normal) Range: 5.0-7.5 Specific [place] 1.024 (Normal) Range: 1.005-1.030 44-Dof-681513:05 MICROALBUMIN: CREATININE RATIO Comments: PATIENT WAS FASTINGPERFORMED BY: i-drive70 [address] [facility] [id number] (20987) AND (28955) Microalb/Creat Ratio <1.7 {mg/g_creat} (Normal) Range: 0.0-30.0 Microalbumin, Urine <3.0 ug/mL (Normal) Creatinine, Urine 171.8 mg/dL (Normal) :05 METABOLIC PANEL, COMPREHENSIVE Comments: PATIENT WAS FASTINGPERFORMED BY: LabCoHarbor Wing TechnologiesYvzayf2114 [facility] [id number] (16222) ALT (SGPT) 15 [iU]/L (Normal) Range: 0-44 [...] Glucose, Serum 117 mg/dL (Abnormal) Range: 65-99 97-Bnp-005522:05 CBC W/AUTO DIFF WBC (42733) Comments: PATIENT WAS FASTINGPERFORMED BY: LabCoGIDEENQdaqyq2170 [facility] [id number] Immature Grans (Abs) 0.0 {x10E3/uL} (Normal) Range: [...] 4.14-5.80 WBC 4.9 {x10E3/uL} (Normal) Range: 3.4-10.8 09-Bdx-325121:05 TSH (29896) Comments: PATIENT WAS FASTINGPERFORMED BY: Maximus Media WorldwideCoLydia Ville 0059470 [facility] [id number] TSH 3.460 {uIU/mL} (Normal) Range: 0.450-4.500 61-Yef-832738:05 T4, FREE (THYROXINE) (58603) Comments: PATIENT WAS FASTINGPERFORMED BY: [facility] [place] [address] [id number] T4,Free(Direct) 1.34 ng/dL (Normal) Range: 0.82-1.77 62-Dhq-572078:05 T3, FREE (TRIDOTHYRONINE) (26269) Comments: PATIENT WAS FASTINGPERFORMED BY: LabCo Yorgqm5296 [facility] [id number] Triiodothyronine,Free,Serum 3.0 pg/mL (Normal) Range: 2.0-4.4 63-Bxp-154325:05 CALCIFIDIOL (67136) VIT D 25 Comments: PATIENT WAS FASTINGPERFORMED BY: LabCo Astnbv3343 [facility] [id number] Vitamin D, 25-Hydroxy 46.6 ng/mL (Normal) Range: 30.0-100.0 Comments: Vitamin D deficiency has been defined by the [place] ofWestern [facility] Hospitalcine and an Endocrine Society practice guideline as alevel of serum 25-OH vitamin D less than 20 ng/mL (1,2).The Endocrine Society went on to further define vitamin Dinsufficiency as a level between 21 and 29 ng/mL (2).1. IOM ([place] of Medicine). 2010. Dietary reference intakes for calcium and D. [place]: The National Academies Press.2. Charles MF, Raissa NC, Nirmala ALBERT, et al. Evaluation, treatment, and prevention of vitamin D deficiency: an Endocrine Society clinical practice guideline. JCEM. 2010; 96(7):1911-30. :42 HgA1C , Office (31329) HgA1C , Office 6.6 % (Normal) Range: 4.6 - 7.1 :42 Blood Glucose , Office (29988) Blood Glucose , Office 117 (Normal) 14-Svf-830396:59 HgA1C , Office (29372) HgA1C , Office 6.8 % (Normal) Range: 4.6 - 7.1 :59 Blood Glucose , Office (68367) Blood Glucose , Office 237 (Normal) :52 Rapid Flu (24607 x 2) Influenza A Ag neg (Normal) :19 HgA1C , Office (18242) HgA1C , Office 6.6 % (Normal) Range: 4.6 - 7.1 :19 Blood Glucose , Office (39094) Blood Glucose , Office 171 (Normal) 5-Uqt-516591:43 Microscopic Examination Comments: PATIENT WAS FASTINGPERFORMED BY: el?6370 [facility] [id number] Bacteria Few (Normal) Mucus Threads Present (Normal) Epithelial Cells (non renal) 0-10 {/hpf} (Normal) Range: 0 - 10 RBC 0-2 {/hpf} (Normal) Range: 0 - 2 WBC 0-5 {/hpf} (Normal) Range: 0 - 5 :53 Serum Creatinine AND GFR Comments: [facility] Jwujcipxxh86[address] [place], [place], [address] EST GFR - AA 83 mL/min (Normal) Comments: GFR Calc EST GFR 69 mL/min (Normal) Comments: Non- GFR Calc CREAT,SERUM 1.12 mg/dL (Normal) Range: 0.70-1.30 Comments: The validity of the calculated GFR AND GFRAA in patients over70 years has not been determined. Clinical correlation isessential. :43 CALCIFIDIOL (10295) VIT D 25 Comments: PATIENT WAS FASTINGPERFORMED BY: el?6370 [facility] [id number] Vitamin D, 25-Hydroxy 55.4 ng/mL (Normal) Range: 30.0-100.0 Comments: Vitamin D deficiency has been defined by the [place] of[facility] Hospitalcine and an Endocrine Society practice guideline as alevel of serum 25-OH vitamin D less than 20 ng/mL (1,2).The Endocrine Society went on to further define vitamin Dinsufficiency as a level between 21 and 29 ng/mL (2).1. IOM ([place] of Medicine). 2010. Dietary reference intakes for calcium and D. [place]: The National Academies Press.2. Charles MF, Raissa NC, Nirmala ALBERT, et al. Evaluation, treatment, and prevention of vitamin D deficiency: an Endocrine Society clinical practice guideline. JCEM. 2010; 96(7):1911-30. :43 URINALYSIS, W/ MICRO (84338) Comments: PATIENT WAS FASTINGPERFORMED BY: Phillylin6370 [facility] [id number] Microscopic Examination See below: (Normal) Comments: Microscopic was indicated and was performed. Microscopic Examination MICRON (Normal) Comments: Microscopic follows if indicated. Nitrite, Urine Negative (Normal) Urobilinogen,Semi-Qn 0.2 mg/dL (Normal) Range: 0.2-1.0 Bilirubin Negative (Normal) Occult Blood Negative (Normal) Ketones Negative (Normal) Glucose Negative (Normal) Protein Negative (Normal) WBC Esterase Negative (Normal) Appearance Clear (Normal) Urine-Color Yellow (Normal) pH 5.5 (Normal) Range: 5.0-7.5 Specific [place] 1.022 (Normal) Range: 1.005-1.030 6-Dkv-567552:43 MICROALBUMIN: CREATININE RATIO Comments: PATIENT WAS FASTINGPERFORMED BY: Maximus Media WorldwideZachary Ville 1682970 [facility] [id number] (96777) AND (24924) Microalb/Creat Ratio <2.4 {mg/g_creat} (Normal) Range: 0.0-30.0 Microalbumin, Urine <3.0 ug/mL (Normal) Creatinine, Urine 122.5 mg/dL (Normal) 0-Uib-682599:43 METABOLIC PANEL, COMPREHENSIVE Comments: PATIENT WAS FASTINGPERFORMED BY: [facility]6370 [facility] [id number] (34422) ALT (SGPT) 12 [iU]/L (Normal) Range: 0-44 [...] Glucose, Serum 120 mg/dL (Abnormal) Range: 65-99 1-Lhy-369029:43 TSH (09865) Comments: PATIENT WAS FASTINGPERFORMED BY: el?63SvbtleThe Outer Banks Hospital [id number] TSH 4.010 {uIU/mL} (Normal) Range: 0.450-4.500 0-Max-111118:43 LIPID PANEL (21175) Comments: PATIENT WAS FASTINGPERFORMED BY: el?6370 [facility]ETBlue [facility] [id number] LDL/HDL Ratio 1.2 {ratio_units} (Normal) Range: 0.0-3.6 [...] Range: 100-199 :43 CBC W/AUTO DIFF WBC (99264) Comments: PATIENT WAS FASTINGPERFORMED BY: TheSquareFootox CarwowBlue Ridge Regional Hospital [id number] Immature Grans (Abs) 0.0 {x10E3/uL} (Normal) Range: [...] (Normal) Range: 3.4-10.8 :27 HgA1C , Office (04624) HgA1C , Office 6.6 % (Normal) Range: 4.6 - 7.1 :27 Blood Glucose , Office (27996) Blood Glucose , Office 168 (Normal) 99-Buw-468870:08 Microscopic Examination Comments: PATIENT WAS FASTINGPERFORMED BY: [facility] Mkfutz5621 [facility] [id number] Bacteria None seen (Normal) Mucus Threads Present (Normal) Epithelial Cells (non renal) None seen {/hpf} (Normal) Range: 0 - 10 RBC None seen {/hpf} (Normal) Range: 0 - 2 WBC 0-5 {/hpf} (Normal) Range: 0 - 5 :08 CALCIFIDIOL (20137) VIT D 25 Comments: PATIENT WAS FASTINGPERFORMED BY: [employer] Ggigni1935 [facility] [id number] Vitamin D, 25-Hydroxy 62.4 ng/mL (Normal) Range: 30.0-100.0 Comments: Vitamin D deficiency has been defined by the [place] ofMedicine and an Endocrine Society practice guideline as alevel of serum 25-OH vitamin D less than 20 ng/mL (1,2).The Endocrine Society went on to further define vitamin Dinsufficiency as a level between 21 and 29 ng/mL (2).1. IOM ([place] of Medicine). 2010. Dietary reference intakes for calcium and D. [place]: The National Academies Press.2. Charles MF, Raissa NC, Nirmala ALBERT, et al. Evaluation, treatment, and prevention of vitamin D deficiency: an Endocrine Society clinical practice guideline. JCEM. 2010; 96(7):1911-30. :08 URINALYSIS, W/ MICRO (23132) Comments: PATIENT WAS FASTINGPERFORMED BY: [employer] Rpzxfd5117 [facility] [id number] Microscopic Examination See below: (Normal) Comments: Microscopic was indicated and was performed. Microscopic Examination MICRON (Normal) Comments: Microscopic follows if indicated. Nitrite, Urine Negative (Normal) Urobilinogen,Semi-Qn 0.2 mg/dL (Normal) Range: 0.2-1.0 Bilirubin Negative (Normal) Occult Blood Negative (Normal) Ketones Negative (Normal) Glucose Negative (Normal) Protein Negative (Normal) WBC Esterase Negative (Normal) Appearance Clear (Normal) Urine-Color Yellow (Normal) pH 6.0 (Normal) Range: 5.0-7.5 Specific [place] 1.022 (Normal) Range: 1.005-1.030 :08 MICROALBUMIN: CREATININE RATIO Comments: PATIENT WAS FASTINGPERFORMED BY: [facility] Health SolutionsHoboken University Medical CenterHoiryo0878 [facility] [id number] (59940) AND (56336) Microalb/Creat Ratio <1.8 {mg/g_creat} (Normal) Range: 0.0-30.0 Microalbumin, Urine <3.0 ug/mL (Normal) Creatinine, Urine 164.4 mg/dL (Normal) 73-Rvj-909309:08 METABOLIC PANEL, COMPREHENSIVE Comments: PATIENT WAS FASTINGPERFORMED BY: i-drive70 [facility] [id number] (40124) ALT (SGPT) 16 [iU]/L (Normal) Range: 0-44 [...] Glucose, Serum 108 mg/dL (Abnormal) Range: 65-99 39-Ydv-760357:08 LIPID PANEL (39653) Comments: PATIENT WAS FASTINGPERFORMED BY: el?6370 [facility] [id number] LDL/HDL Ratio 1.4 {ratio_units} (Normal) Range: 0.0-3.6 [...] Cholesterol, Total 124 mg/dL (Normal) Range: 100-199 61-Qsi-391615:08 CBC W/AUTO DIFF WBC Comments: PATIENT WAS FASTINGPERFORMED BY: [facility] Vzxjvw2931 [facility] [id number] Information: [id number] (27634) Immature Grans (Abs) 0.0 {x10E3/uL} (Normal) Range: [...] 5.5 {x10E3/uL} (Normal) Range: 3.4-10.8 :08 TSH (13077) Comments: PATIENT WAS FASTINGPERFORMED BY: LabZachary Ville 1682970 [facility] [id number] TSH 4.000 {uIU/mL} (Normal) Range: 0.450-4.500 :03 HgA1C , Office (85656) HgA1C , Office 6.2 % (Normal) Range: 4.6 - 7.1 :03 Blood Glucose , Office (77699) Blood Glucose , Office 102 (Normal) :49 Throat Culture (51493) Comments: PATIENT NOT FASTINGPERFORMED BY: [place] 4948670 [facility] [id number] Information: SRC:THRT [id number] Result 1 RRF (Normal) Comments: Routine respiratory alfredo Upper Respiratory Culture Final report (Normal) :02 Rapid Strep Test, Office (71967) Rapid Strep Test, Office Negative (Normal) :48 Influenza A&B Viral Comments: PATIENT NOT FASTINGPERFORMED BY: LabG[facility] Hospital6370 [facility] [id number] Information: SRC:NOS [id number] Culture (84690) Viral Culture,Rapid,Influenza FLUABN (Normal) Comments: Negative:No Influenza A or B detected. :26 Rapid Flu (00716 x 2) Influenza A Ag negative (Normal) :30 HgA1C , Office (64668) HgA1C , Office 7.3 % (Abnormal) Range: 4.6 - 7.1 :30 Blood Glucose , Office (57727) Blood Glucose , Office 191 (Normal) :52 Microscopic Examination Comments: PATIENT WAS FASTINGPERFORMED BY: [employer] Vlcakv4852 [facility] [id number] Bacteria None seen (Normal) Mucus Threads Present (Normal) Epithelial Cells (non renal) 0-10 {/hpf} (Normal) Range: 0 - 10 RBC 0-2 {/hpf} (Normal) Range: 0 - 2 WBC 0-5 {/hpf} (Normal) Range: 0 - 5 :52 CALCIFIDIOL (41198) VIT D 25 Comments: PATIENT WAS FASTINGPERFORMED BY: [employer] Rdrusj1666 [facility]ado CarwowBlue Ridge Regional Hospital [id number] Vitamin D, 25-Hydroxy 44.9 ng/mL (Normal) Range: 30.0-100.0 Comments: Vitamin D deficiency has been defined by the [place] of[facility] Hospitalcine and an Endocrine Society practice guideline as alevel of serum 25-OH vitamin D less than 20 ng/mL (1,2).The Endocrine Society went on to further define vitamin Dinsufficiency as a level between 21 and 29 ng/mL (2).1. IOM ([place] of Medicine). 2010. Dietary reference intakes for calcium and D. [place]: The National Academies Press.2. Charles MF, Raissa NC, Nirmala ALBERT, et al. Evaluation, treatment, and prevention of vitamin D deficiency: an Endocrine Society clinical practice guideline. JCEM. 2010; 96(7):1911-30. :52 LIPID PANEL (51388) Comments: PATIENT WAS FASTINGPERFORMED BY: [employer] Xeoepk8367 [facility] [id number] LDL/HDL Ratio 2.4 {ratio_units} (Normal) Range: 0.0-3.6 [...] 196 mg/dL (Normal) Range: 100-199 :52 TSH (16948) Comments: PATIENT WAS FASTINGPERFORMED BY: jobsite123 RosadoSpruce MediaThe Outer [facility] Hospital [id number] TSH 4.480 {uIU/mL} (Normal) Range: 0.450-4.500 :52 URINALYSIS, W/ MICRO (00137) Comments: PATIENT WAS FASTINGPERFORMED BY: jobsite123 [facility] [id number] Microscopic Examination See below: (Normal) Comments: Microscopic was indicated and was performed. Microscopic Examination MICRON (Normal) Comments: Microscopic follows if indicated. Nitrite, Urine Negative (Normal) Urobilinogen,Semi-Qn 0.2 mg/dL (Normal) Range: 0.2-1.0 Bilirubin Negative (Normal) Occult Blood Negative (Normal) Ketones Negative (Normal) Glucose Negative (Normal) Protein Negative (Normal) WBC Esterase Negative (Normal) Appearance Clear (Normal) Urine-Color Yellow (Normal) pH 6.0 (Normal) Range: 5.0-7.5 Specific [place] 1.024 (Normal) Range: 1.005-1.030 :52 MICROALBUMIN: CREATININE RATIO Comments: PATIENT WAS FASTINGPERFORMED BY: jobsite123 [facility] [id number] (92900) AND (48739) Microalb/Creat Ratio <2.2 {mg/g_creat} (Normal) Range: 0.0-30.0 Microalbumin, Urine <3.0 ug/mL (Normal) Range: 0.0-17.0 Creatinine, Urine 135.9 mg/dL (Normal) Range: 22.0-328.0 :52 METABOLIC PANEL, COMPREHENSIVE Comments: PATIENT WAS FASTINGPERFORMED BY: [employer] Epfpih0482 [facility] [id number]; will review at 02/21 appt (51657) ALT (SGPT) 13 [iU]/L (Normal) Range: 0-44 [...] Glucose, Serum 130 mg/dL (Abnormal) Range: 65-99 67-Wmt-11276:52 CBC W/AUTO DIFF WBC Comments: PATIENT WAS FASTINGPERFORMED BY: [facility] Lfkiex2372 [facility] [id number] Information: [id number] (21520) Immature Grans (Abs) 0.0 {x10E3/uL} (Normal) Range: [...] (Normal) Range: 3.4-10.8 :56 HgA1C , Office (14450) HgA1C , Office 5.9 % (Normal) Range: 4.6 - 7.1 :56 Blood Glucose , Office (55631) Blood Glucose , Office 103 (Normal) :35 HgA1C , Office (10519) HgA1C , Office 6.0 % (Normal) Range: 4.6 - 7.1 :34 Blood Glucose , Office (51901) Blood Glucose , Office 135 (Normal) :45 Potassium Comments: Test performed at:[facility] Ekvnofneab[address] [place] [address] K 4.3 mmol/L (Normal) Range: 3.5-5.1 :54 Comp. Metabolic Panel (14) Comments: PATIENT WAS FASTINGPERFORMED BY: Gaatu6370 [facility] [id number] Information: [id number] ALT (SGPT) 11 [iU]/L (Normal) Range: 0-44 [...] With LDL/HDL Comments: PATIENT WAS FASTINGPERFORMED BY: [facility] Health SolutionsHoboken University Medical CenterIaxckg5173 [facility] [id number] Ratio LDL/HDL Ratio 2.1 {ratio_units} Range: 0.0-3.6 [...] 2.860 {uIU/mL} Comments: PATIENT WAS FASTINGPERFORMED BY: mobilePeoplein [place] [id number] 9:54 (Normal) Range: 0.450-4.500 02-Aug-2014 Vitamin D, 25-Hydroxy 61.9 ng/mL (Normal) Comments: PATIENT WAS FASTINGPERFORMED BY: mobilePeopleblin [place] [id number] 9:54 Range: 30.0-100.0 Comments: Vitamin D deficiency has been defined by the [place] ofMedicine and an Endocrine Society practice guideline as alevel of serum 25-OH vitamin D less than 20 ng/mL (1,2).The Endocrine Society went on to further define vitamin Dinsufficiency as a level between 21 and 29 ng/mL (2).1. IOM ([place] of Medicine). 2010. Dietary reference intakes for calcium and D. [place]: The National Academies Press.2. Charles MF, Raissa NC, Nirmala ALBERT, et al. Evaluation, treatment, and prevention of vitamin D deficiency: an Endocrine Society clinical practice guideline. JCEM. 2010; 96(7):1911-30. :13 HgA1C , Office (03625) HgA1C , Office 6.8 % (Normal) Range: 4.6 - 7.1 :13 Blood Glucose , Office (19732) Blood Glucose , Office 218 (Normal) 41-Uuj-694053:24 Microscopic Examination Comments: PATIENT WAS FASTINGPERFORMED BY: [employer] Lab3[employer] Hrcrgw9671 ZENTICKETAtrium Health Clevelandin [place] [id number] Bacteria None seen (Normal) Mucus Threads Present (Normal) Epithelial Cells (non renal) None seen {/hpf} (Normal) Range: 0 - 10 RBC 0-2 {/hpf} (Normal) Range: 0 - 2 WBC 0-5 {/hpf} (Normal) Range: 0 - 5 33-Fqj-990362:24 Vitamin D Hydroxy (83119) Comments: PATIENT WAS FASTINGPERFORMED BY: [employer] Bdwzbk9545 [facility] [id number] Vitamin D, 25-Hydroxy 35.7 ng/mL (Normal) Range: 30.0-100.0 Comments: Vitamin D deficiency has been defined by the [place] ofMedicine and an Endocrine Society practice guideline as alevel of serum 25-OH vitamin D less than 20 ng/mL (1,2).The Endocrine Society went on to further define vitamin Dinsufficiency as a level between 21 and 29 ng/mL (2).1. IOM ([place] of Medicine). 2010. Dietary reference intakes for calcium and D. [place]: The National Academies Press.2. Charels MF, Raissa OCONNELL, Nirmala ALBERT, et al. Evaluation, treatment, and prevention of vitamin D deficiency: an Endocrine Society clinical practice guideline. JCEM. 2010; 96(7):1911-30. 95-Unh-182691:24 URINALYSIS, W/ MICRO (07886) Comments: PATIENT WAS FASTINGPERFORMED BY: [employer] Wyxppk5350 [facility] [id number] Microscopic Examination See below: (Normal) Comments: Microscopic was indicated and was performed. Microscopic Examination MICRON (Normal) Comments: Microscopic follows if indicated. Nitrite, Urine Negative (Normal) Urobilinogen,Semi-Qn 0.2 mg/dL (Normal) Range: 0.0-1.9 Bilirubin Negative (Normal) Occult Blood Negative (Normal) Ketones Negative (Normal) Glucose Negative (Normal) Protein Negative (Normal) WBC Esterase Negative (Normal) Appearance Clear (Normal) Urine-Color Yellow (Normal) pH 6.0 (Normal) Range: 5.0-7.5 Specific [place] 1.025 (Normal) Range: 1.005-1.030 57-Uku-989747:24 TSH (39925) Comments: PATIENT WAS FASTINGPERFORMED BY: [employer] Bcnfwj7834 [facility] [id number] TSH 2.740 {uIU/mL} (Normal) Range: 0.450-4.500 24-Uqo-093575:24 MICROALBUMIN: CREATININE RATIO Comments: PATIENT WAS FASTINGPERFORMED BY: [facility]6370 [facility] [id number] (12105) AND (92787) Microalb/Creat Ratio <1.5 {mg/g_creat} (Normal) Range: 0.0-30.0 Microalbumin, Urine <3.0 ug/mL (Normal) Range: 0.0-17.0 Creatinine, Urine 205.5 mg/dL (Normal) Range: 22.0-328.0 37-Imu-309143:24 METABOLIC PANEL, COMPREHENSIVE Comments: PATIENT WAS FASTINGPERFORMED BY: [facility]6370 [facility] [id number] (13195) ALT (SGPT) 13 [iU]/L (Normal) Range: 0-44 [...] Glucose, Serum 138 mg/dL (Abnormal) Range: 65-99 10-Hxr-243258:24 LIPID PANEL (83800) Comments: PATIENT WAS FASTINGPERFORMED BY: [facility]6370 [facility] [id number] LDL/HDL Ratio 3.2 {ratio_units} (Normal) Range: 0.0-3.6 [...] Cholesterol, Total 221 mg/dL (Abnormal) Range: 100-199 06-Kfa-143749:24 CBC W/AUTO DIFF WBC Comments: PATIENT WAS FASTINGPERFORMED BY: [facility]6370 [facility] [id number] Information: [id number] (60984) Immature Grans (Abs) 0.0 {x10E3/uL} (Normal) Range: [...] 4.14-5.80 WBC 5.0 {x10E3/uL} (Normal) Range: 3.4-10.8 57-Ala-495009:00 Fecal Occult Blood , Office (11604) Fecal Occult Blood , Office (Inhouse) negative (Normal) 94-Lsg-602557:57 PSA (PROSTATE SPECIFIC Comments: PATIENT NOT FASTINGPERFORMED BY: LabGarden City Hospital6370 [facility] [id number] Information: [id number] ANTIGEN) (V76.44) Prostate Specific Ag, 1.5 ng/mL (Normal) Range: 0.0-4.0 Serum Comments: Dee ECLIA methodology. .According to the [place] [employer], Serum PSA shoulddecrease and remain [...] of malignant disease. :17 HgA1C , Office (96496) HgA1C , Office 7.0 % (Normal) Range: 4.6 - 7.1 :17 Blood Glucose , Office (53491) Blood Glucose , Office 118 (Normal) :50 HgA1C , Office (09710) HgA1C , Office 7.6 % (Abnormal) Range: 4.6 - 7.1 :50 Blood Glucose , Office (26402) Blood Glucose , Office 142 (Normal) 9-Ish-866160:44 Microscopic Examination Comments: PATIENT WAS FASTINGPERFORMED BY: mobilePeopleThe [facility] [id number] Bacteria None seen (Normal) Mucus Threads Present (Normal) Epithelial Cells (non renal) None seen {/hpf} (Normal) Range: 0 - 10 RBC 0-2 {/hpf} (Normal) Range: 0 - 2 WBC 0-5 {/hpf} (Normal) Range: 0 - 5 :32 URINALYSIS, W/ MICRO (75392) Comments: PATIENT WAS FASTINGPERFORMED BY: mobilePeopleThe [facility] [id number] Microscopic Examination See below: (Normal) Comments: Microscopic was indicated and was performed. Microscopic Examination MICRON (Normal) Comments: Microscopic follows if indicated. Nitrite, Urine Negative (Normal) Urobilinogen,Semi-Qn 0.2 mg/dL (Normal) Range: 0.0-1.9 Bilirubin Negative (Normal) Ketones Negative (Normal) Occult Blood Negative (Normal) Glucose Trace (Abnormal) Protein Negative (Normal) WBC Esterase Negative (Normal) Appearance Clear (Normal) Urine-Color Yellow (Normal) pH 6.0 (Normal) Range: 5.0-7.5 Specific [place] 1.024 (Normal) Range: 1.005-1.030 3-Qwr-245597:32 MICROALBUMIN: CREATININE RATIO Comments: PATIENT WAS FASTINGPERFORMED BY: mobilePeopleThe [facility] [id number] (85574) AND (38157) Microalb/Creat Ratio 1.3 {mg/g_creat} (Normal) Range: 0.0-30.0 Creatinine, Urine 188.3 mg/dL (Normal) Range: 22.0-328.0 Microalbumin, Urine 2.4 ug/mL (Normal) Range: 0.0-17.0 :32 TSH (96322) Comments: PATIENT WAS FASTINGPERFORMED BY: [employer] Jffapb3124 [facility] [id number] TSH 3.250 {uIU/mL} (Normal) Range: 0.450-4.500 :32 METABOLIC PANEL, COMPREHENSIVE Comments: PATIENT WAS FASTINGPERFORMED BY: JOOR [facility] [id number]; will review at 10/08 appt (54670) ALT (SGPT) 22 [iU]/L (Normal) Range: 0-44 [...] mg/dL (Abnormal) Range: 65-99 :32 LIPID PANEL (53176) Comments: PATIENT WAS FASTINGPERFORMED BY: [employer]70 [facility] [id number] LDL/HDL Ratio 2.0 {ratio_units} (Normal) Range: 0.0-3.6 LDL Cholesterol Calc 84 mg/dL (Normal) Range: 0-99 HDL Cholesterol 43 mg/dL (Normal) Comments: According to ATP-III Guidelines, HDL-C >59 mg/dL is considered anegative risk factor for CHD. VLDL Cholesterol Ezequiel 24 mg/dL (Normal) Range: 5-40 Triglycerides 121 mg/dL (Normal) Range: 0-149 Cholesterol, Total 151 mg/dL (Normal) Range: 100-199 6-Ptg-565343:32 CBC WITH MANUAL DIFF Comments: PATIENT WAS FASTINGPERFORMED BY: LabCoHoboken University Medical CenterLxgqrb3892 [facility] [id number] Information: [id number] (39162) Immature Grans (Abs) 0.0 {x10E3/uL} (Normal) Range: [...] (Normal) Range: 3.4-10.8 :37 HgA1C , Office (48235) HgA1C , Office 7.1 % (Normal) Range: 4.6 - 7.1 :37 Blood Glucose , Office (60702) Blood Glucose , Office 142 (Normal) :39 Microscopic Examination Comments: PATIENT WAS FASTINGPERFORMED BY: [employer] [facility] Viwxdm9577 [facility] [id number] Bacteria None seen (Normal) Mucus Threads Present (Normal) Epithelial Cells (non renal) None seen {/hpf} (Normal) Range: 0 - 10 RBC None seen {/hpf} (Normal) Range: 0 - 3 WBC 0-5 {/hpf} (Normal) Range: 0 - 5 :13 Vitamin D Hydroxy (46866) Comments: PATIENT WAS FASTINGPERFORMED BY: el?6370 [facility]ICKETBlue Ridge Regional Hospital [id number] Vitamin D, 25-Hydroxy 35.9 ng/mL (Normal) Range: 30.0-100.0 Comments: Vitamin D deficiency has been defined by the [place] of[facility] Hospitalcine and an Endocrine Society practice guideline as alevel of serum 25-OH vitamin D less than 20 ng/mL (1,2).The Endocrine Society went on to further define vitamin Dinsufficiency as a level between 21 and 29 ng/mL (2).1. IOM ([place] of Medicine). 2010. Dietary reference intakes for calcium and D. [place]: The National Academies Press.2. Charles MF, Raissa NC, Nirmala ALBERT, et al. Evaluation, treatment, and prevention of vitamin D deficiency: an Endocrine Society clinical practice guideline. JCEM. 2010; 96(7):1911-30. :13 TSH (59169) Comments: PATIENT WAS FASTINGPERFORMED BY: Oxygen Biotherapeuticsin [place] [id number] TSH 4.190 {uIU/mL} (Normal) Range: 0.450-4.500 :13 URINALYSIS, W/ MICRO (08085) Comments: PATIENT WAS FASTINGPERFORMED BY: [facility] [id number] Microscopic Examination MICRON (Normal) Comments: Microscopic follows if indicated. Microscopic Examination See below: (Normal) Nitrite, Urine Negative (Normal) Urobilinogen,Semi-Qn 0.2 mg/dL (Normal) Range: 0.0-1.9 Bilirubin Negative (Normal) Occult Blood Negative (Normal) Ketones Negative (Normal) Glucose Negative (Normal) Protein Negative (Normal) Appearance Clear (Normal) WBC Esterase Negative (Normal) Urine-Color Yellow (Normal) pH 7.0 (Normal) Range: 5.0-7.5 Specific [place] 1.023 (Normal) Range: 1.005-1.030 :13 MICROALBUMIN: CREATININE RATIO Comments: PATIENT WAS FASTINGPERFORMED BY: [facility] [id number] ([id number]) AND (57891) Microalb/Creat Ratio 1.4 {mg/g_creat} (Normal) Range: 0.0-30.0 Creatinine, Urine 177.1 mg/dL (Normal) Range: 22.0-328.0 Microalbumin, Urine 2.5 ug/mL (Normal) Range: 0.0-17.0 :13 METABOLIC PANEL, COMPREHENSIVE Comments: PATIENT WAS FASTINGPERFORMED BY: [facility] [id number] (57933) ALT (SGPT) 17 [iU]/L (Normal) Range: 0-44 [...] mg/dL (Abnormal) Range: 65-99 :13 LIPID PANEL (87955) Comments: PATIENT WAS FASTINGPERFORMED BY: i-drive70 [facility] [id number] LDL/HDL Ratio 1.8 {ratio_units} (Normal) Range: 0.0-3.6 [...] MANUAL DIFF Comments: PATIENT WAS FASTINGPERFORMED BY: [facility] Health SolutionsHoboken University Medical CenterFqppfv4513 [facility] [id number] Information: [id number] (54429) Immature Grans (Abs) 0.0 {x10E3/uL} (Normal) Range: [...] (Normal) Range: 3.4-10.8 :31 HgA1C , Office (51711) HgA1C , Office 6.7 % (Normal) Range: 4.6 - 7.1 :31 Blood Glucose , Office (42359) Blood Glucose , Office 141 (Normal) :55 HgA1C , Office (41439) HgA1C , Office 6.4 % (Normal) Range: 4.6 - 7.1 :55 Blood Glucose , Office (11121) Blood Glucose , Office 116 (Normal) :33 Microscopic Examination Comments: PATIENT WAS FASTINGPERFORMED BY: [facility] WorldwideGarden [facility] Hospital6370 [facility] [id number] Bacteria None seen (Normal) Mucus Threads Present (Normal) Epithelial Cells (non renal) None seen {/hpf} (Normal) Range: 0 - 10 RBC 0-3 {/hpf} (Normal) Range: 0 - 3 WBC 0-5 {/hpf} (Normal) Range: 0 - 5 :33 PSA (PROSTATE SPECIFIC Comments: PATIENT WAS FASTINGPERFORMED BY: [facility] Health SolutionsHoboken University Medical CenterNbabfv8987 [facility] [id number] ANTIGEN) (V76.44) Prostate Specific Ag, 1.5 ng/mL (Normal) Range: 0.0-4.0 Serum Comments: Anzhi.comIA methodology. .According to the [place] [employer], Serum PSA shoulddecrease and remain at undetectable levels after radicalprostatectomy. The AUA defines biochemical recurrence as an initialPSA value 0.2 ng/mL or greater followed by a subsequent confirmatoryPSA value 0.2 ng/mL or greater.Values obtained with d ifferent assay methods or kits cannot be usedinterchangeably. Results cannot be interpreted as absolute evidenceof the presence or absence of malignant disease. :33 TSH (68279) Comments: PATIENT WAS FASTINGPERFORMED BY: [facility] WorldwideGarden [facility] Hospital6370 [facility] [id number] TSH 2.770 {uIU/mL} (Normal) Range: 0.450-4.500 :33 URINALYSIS, W/ MICRO (36927) Comments: PATIENT WAS FASTINGPERFORMED BY: [facility] WorldwideG[facility] Hospital6370 [facility] [id number] Microscopic Examination See below: (Normal) Microscopic Examination MICRON (Normal) Comments: Microscopic follows if indicated. Nitrite, Urine Negative (Normal) Urobilinogen,Semi-Qn 0.2 mg/dL (Normal) Range: 0.0-1.9 Bilirubin Negative (Normal) Occult Blood Negative (Normal) Ketones Negative (Normal) Glucose Negative (Normal) Protein Negative (Normal) WBC Esterase Negative (Normal) Appearance Clear (Normal) Urine-Color Yellow (Normal) pH 6.0 (Normal) Range: 5.0-7.5 Specific [place] 1.026 (Normal) Range: 1.005-1.030 :33 MICROALBUMIN: CREATININE RATIO Comments: PATIENT WAS FASTINGPERFORMED BY: [facility] Health SolutionsHoly Cross HospitalGwdwtk9286 [facility] [id number] (67536) AND (96628) Microalb/Creat Ratio 1.8 {mg/g_creat} (Normal) Range: 0.0-30.0 Microalbumin, Urine 3.6 ug/mL (Normal) Range: 0.0-17.0 Creatinine, Urine 203.4 mg/dL (Normal) Range: 22.0-328.0 :33 METABOLIC PANEL, COMPREHENSIVE Comments: PATIENT WAS FASTINGPERFORMED BY: el?6370 [facility] [id number] (04223) ALT (SGPT) 16 [iU]/L (Normal) Range: 0-44 [...] mg/dL (Abnormal) Range: 65-99 :33 LIPID PANEL (45564) Comments: PATIENT WAS FASTINGPERFORMED BY: [employer]6370 [facility] [id number] LDL/HDL Ratio 1.3 {ratio_units} (Normal) Range: 0.0-3.6 [...] MANUAL DIFF Comments: PATIENT WAS FASTINGPERFORMED BY: [employer]6370 [facility] [id number] Information: [id number] (18807) Immature Grans (Abs) 0.0 {x10E3/uL} (Normal) Range: [...] (Normal) Range: 4.0-10.5 :22 HgA1C , Office (93556) HgA1C , Office 6.3 % (Normal) Range: 4.6 - 7.1 :22 Blood Glucose , Office (50196) Blood Glucose , Office 109 (Normal) :49 ALDOS 9.3 ng/dL (Normal) Range: 0.0-30.0 :49 CATU tDOP24 674 Range: 0-510 {ug/24_hr} Comments: TESTING PERFORMED AT [facility]. ORIGINAL REPORT ONFILE IN LAB [...] metanephrines and plasma catecolamines. TESTING PERFORMED AT [facility]. ORIGINAL REPORT ONFILE IN LAB CONTAINS ADDITIONAL [...] >150 0.39 - 1.31Performed at: - [facility] [address] [id number] Director: Bruno Williamson MD, Phone: [phone] - (Normal) Pam car y - 2 0 1 3 9 : 4 9 :49 VMA tVMA24 4.6 {mg/24_hr} (Normal) Range: 0.0-7.5 tVMA 2.2 mg/L (Normal) 61-Xsf-514556:15 BMP CO2 30.0 mmol/L (Normal) Range: 21.0-32.0 [...] 126 mg/dLsuggests DIABETES MELLITUS per A.D.A. criteria. 78-Bpf-577966:15 CBCD ANC 3.6 3/uL (Normal) Range: 2.0-7.7 [...] 4.6-6.2 WBC 6.4 {k/mm3} (Normal) Range: 4.4-11.0 97-Hlr-66586:00 BRAIN W/WO CONTRAST Radiology Report See Note [...] Stauffer M.D.August 08, 2012 at 10:05:25 PM [id number] Signed AH/AH If you are the referring physician and would like to consult with theradiologist who provided this interpretation, please contact Chad Mast at [phone]. If this radiologist is unavailable,you will be directed to another radiologist to assist. If you are a patient with a question regarding this report, pleasecontactyour referring physician directly . Professional Interpretation Provided By: [employer], Phone , These documents contain legally protected [...] on 08/08/122207 Sign by: MIKHAIL STAUFFER MD 42-Qvu-202937:32 BRAIN/HEAD WITHOUT CONTRAST Radiology Report See Note [...] Fontenot M.D.August 04, 2012 at 5:16:58 PM [id number] Signed DN/DN If you are the referring physician and would like to consult with theradiologist who pro vided this interpretation, please contact Heather Ng M.D. at [phone]. If this radiologist is unavailable, youwillbe directed to another radiologist to assist. If you are a patient with a quest ion regarding this report, pleasecontactyour referring physician directly. Professional Interpretation Provided By: [employer], Phone , These documents contain legally pro [...] 08/04/121718 Sign by: ___ HEATHER FONTENOT MD 69-Aeg-839063:36 CBCD ANC 4.1 3/uL (Normal) Range: 2.0-7.7 [...] 4.6-6.2 WBC 6.2 {k/mm3} (Normal) Range: 4.4-11.0 9-Ogq-537674:57 METABOLIC PANEL, Comments: PATIENT NOT FASTINGPERFORMED BY: [facility] Kdmgdr4027 [facility] [id number] Information: [id number] COMPREHENSIVE (92024) ALT (SGPT) 13 [iU]/L (Normal) Range: 0-44 [...] (Normal) Range: 65-99 :01 HgA1C , Office (75339) HgA1C , Office 6.2 % (Normal) Range: 4.6 - 7.1 :01 Blood Glucose , Office (08408) Blood Glucose , Office 89 (Normal) :48 Microscopic Examination Comments: PATIENT WAS FASTINGPERFORMED BY: jobsite123 [facility] [id number] Bacteria Few (Normal) Mucus Threads Present (Normal) Epithelial Cells (non renal) None seen {/hpf} (Normal) Range: 0 - 10 RBC 0-3 {/hpf} (Normal) Range: 0 - 3 WBC 0-5 {/hpf} (Normal) Range: 0 - 5 :48 TSH (80838) Comments: PATIENT WAS FASTINGPERFORMED BY: el?6370 [facility] [id number] TSH 5.340 {uIU/mL} (Abnormal) Range: 0.450-4.500 :48 URINALYSIS, W/ MICRO (74961) Comments: PATIENT WAS FASTINGPERFORMED BY: [employer] Gdqrxc3575 [facility] [id number] Microscopic Examination See below: (Normal) Microscopic Examination MICRON (Normal) Comments: Microscopic follows if indicated. Bilirubin Negative (Normal) Nitrite, Urine Negative (Normal) Urobilinogen,Semi-Qn 0.2 mg/dL (Normal) Range: 0.0-1.9 Occult Blood Negative (Normal) Ketones Negative (Normal) Glucose Negative (Normal) Protein Negative (Normal) WBC Esterase Negative (Normal) Appearance Clear (Normal) pH 5.5 (Normal) Range: 5.0-7.5 Urine-Color Yellow (Normal) Specific [place] 1.028 (Normal) Range: 1.005-1.030 :48 MICROALBUMIN: CREATININE RATIO Comments: PATIENT WAS FASTINGPERFORMED BY: [employer] Teaegp9899 [facility] [id number] (45868) AND (90726) Microalb/Creat Ratio 1.6 {mg/g_creat} (Normal) Range: 0.0-30.0 Creatinine, Urine 195.7 mg/dL (Normal) Range: 22.0-328.0 Microalbumin, Urine 3.2 ug/mL (Normal) Range: 0.0-17.0 :48 METABOLIC PANEL, COMPREHENSIVE Comments: PATIENT WAS FASTINGPERFORMED BY: el?6370 [facility] [id number] (67034) ALT (SGPT) 16 [iU]/L (Normal) Range: 0-44 [...] mg/dL (Normal) Range: 65-99 :48 LIPID PANEL (67979) Comments: PATIENT WAS FASTINGPERFORMED BY: el?6370 [facility] [id number] LDL Cholesterol Calc 97 mg/dL (Normal) Range: [...] MANUAL DIFF Comments: PATIENT WAS FASTINGPERFORMED BY: [employer]6370 [facility] [id number] Information: [id number] (80556) Immature Grans (Abs) 0.0 {x10E3/uL} (Normal) Range: [...] (Normal) Range: 4.0-10.5 :46 HgA1C , Office (17204) HgA1C , Office 6.1 % (Normal) Range: 4.6 - 7.1 :46 Blood Glucose , Office (44100) Blood Glucose , Office 91 (Normal) 3-Rly-138767:25 HEPATOBILLIARY IMG W/PHARM INT Radiology Report See [...] Cholecystokinin (0.02 ug/kg) was administered intravenously over f67-ukikhh period. The post CCK gallbladder ejection fraction vawslknefmwn63 minutes following Cholecystokinin administration was noted to [...] Richmond M.D.December 24, 2011 at 8:34:10 PM [id number] S igned RB/RB If you are the referring physician and would like to consult with theradiologist who provided this interpretation, please contact Chad Aragon at [phone]. If this radiologist is un available, you will bedirected to another radiologist to assist. If you are a patient with a question regarding this report, pleasecontactyour referring physician directly. Professional Interpretation P rovided By: [employer], Phone , These documents contain legally protected [...] on 12/24/112116 Sign by: Aamir Richmond DO 55-Hwt-20265:56 GALLBLADDER Radiology Report See Note (Normal) Comments: [...] size of the right kidney. The right ildddycqsshyts27.6 cm. Normal rolando al cortex. The right cortex measures 1.8 cm. Thereisno demonstrated renal mass or cyst. There is no right hydronephrosis. IMPRESSION:Sludge in the gallbladder lumen, with a thickened gallbladder wall .Correlation with nuclear medicine hepatobiliary scan is recommended. Signed:Jakob Hunt M.D.December 18, 2011 at 11:00:05 AM [id number] Signed GP/GP If you are the referring physician and would like to consult with theradiologist who provided this interpretation, please contact Chad Lao at [phone]. If this radiologist is unavailable, youwill be directed to another radiologist to assist. If you are a patient with a question regarding this report, pleasecontactyour referring physician directly. Professional Interpretation Provided By: [employer], Phone , These documents contain legally protected [...] Jakob Hunt MD :41 HgA1C , Office (80078) HgA1C , Office 6.2 % (Normal) Range: 4.6 - 7.1 :41 Blood Glucose , Office (05172) Blood Glucose , Office 115 (Normal) :37 HgA1C , Office (41571) HgA1C , Office 6.4 % (Normal) Range: 4.6 - 7.1 :37 Blood Glucose , Office (89102) Blood Glucose , Office 119 (Normal) :44 PSA (PROSTATE SPECIFIC Comments: PATIENT WAS FASTINGPERFORMED BY: i-drive70 [facility] [id number] ANTIGEN) (V76.44) Prostate Specific Ag, 1.7 ng/mL (Normal) Range: 0.0-4.0 Serum Comments: Dee ECLIA methodology. .According to the [place] [employer], Serum PSA shoulddecrease and remain at undetectable levels after radicalprostatectomy. The AUA defines biochemical recurrence as an initialPSA value 0.2 ng/mL or greater followed by a subsequent confirmatoryPSA value 0.2 ng/mL or greater.Values obtained with d ifferent assay methods or kits cannot be usedinterchangeably. Results cannot be interpreted as absolute evidenceof the presence or absence of malignant disease. :44 TSH (09586) Comments: PATIENT WAS FASTINGPERFORMED BY: el?6370 [employer] [facility] [id number] TSH 2.660 {uIU/mL} (Normal) Range: 0.450-4.500 :44 URINALYSIS, W/ MICRO (77981) Comments: PATIENT WAS FASTINGPERFORMED BY: GUICHO [facility] [id number] Microscopic Examination See below: (Normal) Microscopic Examination MICRON (Normal) Comments: Microscopic follows if indicated. Nitrite, Urine Negative (Normal) Urobilinogen,Semi-Qn 0.2 mg/dL (Normal) Range: 0.0-1.9 Bilirubin Negative (Normal) Occult Blood Negative (Normal) Ketones Negative (Normal) Glucose Negative (Normal) Protein Negative (Normal) WBC Esterase Negative (Normal) Appearance Clear (Normal) Urine-Color Yellow (Normal) pH 6.0 (Normal) Range: 5.0-7.5 Specific [place] 1.024 (Normal) Range: 1.005-1.030 :44 MICROALBUMIN: CREATININE RATIO Comments: PATIENT WAS FASTINGPERFORMED BY: [facility] [employer] [facility] [id number] (36788) AND (09862) Microalb/Creat Ratio 1.1 {mg/g_creat} (Normal) Range: 0.0-30.0 Microalbumin, Urine 3.2 ug/mL (Normal) Range: 0.0-17.0 Creatinine, Urine 294.1 mg/dL (Normal) Range: 22.0-328.0 :44 Microscopic Examination Comments: PATIENT WAS FASTINGPERFORMED BY: GUICHO [facility] Health SolutionsHoboken University Medical CenterNxteyd1759 [facility] [id number] Bacteria None seen (Normal) Mucus Threads Present (Normal) Epithelial Cells (non renal) None seen {/hpf} (Normal) Range: 0 - 10 RBC 0-3 {/hpf} (Normal) Range: 0 - 3 WBC 0-5 {/hpf} (Normal) Range: 0 - 5 :44 METABOLIC PANEL, COMPREHENSIVE Comments: PATIENT WAS FASTINGPERFORMED BY: [employer] Amhlxr8617 [facility] [id number] (15145) ALT (SGPT) 21 [iU]/L (Normal) Range: 0-55 [...] mg/dL (Abnormal) Range: 65-99 :44 LIPID PANEL (30585) Comments: PATIENT WAS FASTINGPERFORMED BY: [facility] [id number] LDL/HDL Ratio 1.2 {ratio_units} (Normal) Range: 0.0-3.6 [...] DIFF Comments: PATIENT WAS FASTINGPERFORMED BY: GUICHO LabCoHoboken University Medical CenterZlejif3745 [facility] [id number] Information: [id number] (50040) Immature Grans (Abs) 0.0 {x10E3/uL} (Normal) Range: [...] (Normal) Range: 4.0-10.5 :25 HgA1C , Office (25427) HgA1C , Office 6.2 % (Normal) Range: 4.6 - 7.1 :25 Blood Glucose , Office (20995) Blood Glucose , Office 84 (Normal) :56 Blood Glucose , Office (13793) Blood Glucose , Office 96 (Normal) :29 [...] 02/23/11 1355 by ITS IMPORTSign by HEATHER OFNTENOT MD on 02/23/11 1356 Sign by: HEATHER FONTENOT MD :08 HgA1C , Office (02276) HgA1C , Office 6.3 % (Normal) Range: 4.6 - 7.1 :08 Blood Glucose , Office (04456) Blood Glucose , Office 108 (Normal) :50 URINALYSIS, W/ MICRO (33779) Comments: PATIENT WAS FASTINGPERFORMED BY: CB [facility] Xuzdni2798 [facility] [id number] Microscopic Examination See below: (Normal) Microscopic Examination MICRON (Normal) Comments: Microscopic follows if indicated. Nitrite, Urine Negative (Normal) Urobilinogen,Semi-Qn 0.2 mg/dL (Normal) Range: 0.0-1.9 Bilirubin Negative (Normal) Occult Blood Negative (Normal) Ketones Negative (Normal) Glucose Negative (Normal) Protein Negative (Normal) WBC Esterase Negative (Normal) Appearance Clear (Normal) Urine-Color Yellow (Normal) pH 5.5 (Normal) Range: 5.0-7.5 Specific [place] 1.022 (Normal) Range: 1.005-1.030 :50 MICROALBUMIN: CREATININE RATIO Comments: PATIENT WAS FASTINGPERFORMED BY: [facility] Health SolutionsHoboken University Medical CenterGtarkq5628 [facility] [id number] (87030) AND (07521) Microalb/Creat Ratio <.6 {mg/g_creat} (Normal) Range: 0.0-30.0 Creatinine, Urine 163.1 mg/dL (Normal) Range: 22.0-328.0 Microalbumin, Urine <1.0 ug/mL (Normal) Range: 0.0-17.0 Comments: Verified by repeat analysis :50 METABOLIC PANEL, COMPREHENSIVE Comments: PATIENT WAS FASTINGPERFORMED BY: [facility] Media WorldwideGarden City Hospital6370 [facility] [id number] (98697) ALT (SGPT) 16 [iU]/L (Normal) Range: 0-55 [...] mg/dL (Abnormal) Range: 65-99 :50 LIPID PANEL (91205) Comments: PATIENT WAS FASTINGPERFORMED BY: mobilePeopleThe [facility] [id number] LDL Cholesterol Calc 68 mg/dL (Normal) Range: [...] MANUAL DIFF Comments: PATIENT WAS FASTINGPERFORMED BY: el?6370 [facility] [id number] Information: [id number] (42815) Immature Grans (Abs) 0.0 {x10E3/uL} (Normal) Range: [...] Microscopic Examination Comments: PATIENT WAS FASTINGPERFORMED BY: LabCoHoboken University Medical CenterFkyxhv3590 [facility] [id number] Bacteria Few (Normal) Mucus Threads Present (Normal) Epithelial Cells (non renal) None seen {/hpf} (Normal) Range: 0 - 10 RBC None seen {/hpf} (Normal) Range: 0 - 3 WBC 0-5 {/hpf} (Normal) Range: 0 - 5 :58 HgA1C , Office (84799) HgA1C , Office 6.0 % (Normal) Range: 4.6 - 7.1 :58 Blood Glucose , Office (94924) Blood Glucose , Office 93 (Normal) 35-Jkp-758402:13 PSA (PROSTATE SPECIFIC Comments: PATIENT NOT FASTINGPERFORMED BY: [facility] [employer] Ppsiht6464 [facility] [id number] Information: [id number] ANTIGEN) (V76.44) Prostate Specific Ag, 1.5 ng/mL (Normal) Range: 0.0-4.0 Serum Comments: [employer] ECLIA methodology. .According to the [place] [employer], Serum PSA shoulddecrease and remain [...] of malignant disease. :16 HgA1C , Office (77071) HgA1C , Office 6.2 % (Normal) Range: 4.6 - 7.1 :16 Blood Glucose , Office (62024) Blood Glucose , Office 196 (Normal) 8-Cwi-236504:15 TSH (08915) Comments: PATIENT WAS FASTINGPERFORMED BY: [facility] Health SolutionsHoboken University Medical CenterHvooku2860 [facility] [id number] TSH 3.200 {uIU/mL} (Normal) Range: 0.450-4.500 9-Jua-543521:15 MICROALBUMIN: CREATININE RATIO Comments: PATIENT WAS FASTINGPERFORMED BY: [facility] Health SolutionsHoboken University Medical CenterEjywdf3989 [facility] [id number] (72946) AND (91517) Creatinine, Urine 168.7 mg/dL (Normal) Range: 22.0-328.0 Microalb/Creat Ratio 1.5 {mg/g_creat} (Normal) Range: 0.0-30.0 Microalbumin, Urine 2.5 ug/mL (Normal) Range: 0.0-17.0 9-Rbc-669078:15 METABOLIC PANEL, COMPREHENSIVE Comments: PATIENT WAS FASTINGPERFORMED BY: [facility] SolutionsHoboken University Medical CenterItjbrx7813 [facility] [id number] (30120) A/G Ratio 1.8 (Normal) Range: 1.1-2.5 Alkaline [...] Glucose, Serum 108 mg/dL (Abnormal) Range: 65-99 6-Vnx-898829:15 LIPID PANEL (12804) Comments: PATIENT WAS FASTINGPERFORMED BY: [facility] Health SolutionsHoboken University Medical CenterUvarky2618 [facility] [id number] LDL/HDL Ratio 1.8 {ratio_units} (Normal) Range: 0.0-3.6 HDL Cholesterol 49 mg/dL (Normal) Comments: According to ATP-III Guidelines, HDL-C >59 mg/dL is considered anegative risk factor for CHD. LDL Cholesterol Calc 86 mg/dL (Normal) Range: 0-99 VLDL Cholesterol Ezequiel 25 mg/dL (Normal) Range: 5-40 Cholesterol, Total 160 mg/dL (Normal) Range: 100-199 Triglycerides 123 mg/dL (Normal) Range: 0-149 4-Tkv-802846:15 CBC WITH MANUAL DIFF Comments: PATIENT WAS FASTINGPERFORMED BY: LabCoHoboken University Medical CenterGxkauq1669 [facility] [id number] Information: [id number] (92422) Immature Grans (Abs) 0.0 {x10E3/uL} (Normal) Range: [...] (Normal) Range: 4.0-10.5 :53 HgA1C , Office (79670) HgA1C , Office 6.3 % (Normal) Range: 4.6 - 7.1 :53 Blood Glucose , Office (43500) Blood Glucose , Office 123 (Normal) :51 HgA1C , Office (29207) HgA1C , Office 6.2 % (Normal) Range: 4.6 - 7.1 :51 Blood Glucose , Office (80501) Blood Glucose , Office 93 (Normal) :01 Microscopic Examination Comments: PATIENT WAS FASTINGPERFORMED BY: Phil[employer]lin6370 [facility] [id number] Bacteria Few (Normal) Mucus Threads Present (Normal) Epithelial Cells (non renal) None seen {/hpf} (Normal) Range: 0 - 10 RBC 0-3 {/hpf} (Normal) Range: 0 - 3 WBC 0-5 {/hpf} (Normal) Range: 0 - 5 :01 PSA (PROSTATE SPECIFIC Comments: PATIENT WAS FASTINGPERFORMED BY: [employer] LabCoViaView Cebmdk1495 [facility] [id number] ANTIGEN) (V76.44) Prostate Specific Ag, 1.4 ng/mL (Normal) Range: 0.0-4.0 Serum Comments: Dee ECLIA methodology..According to the [place] [employer], Serum PSA shoulddecrease and remain at undetectable levels after radicalprostatectomy. The AUA defines biochemical recurrence a s an initialPSA value 0.2 ng/mL or greater followed by a subsequent confirmatoryPSA value 0.2 ng/mL or greater.Values obtained with different assay methods or kits cannot be usedinterchangeably. Results cannot be interpreted as absolute evidenceof the presence or absence of malignant disease. :01 TSH (36064) Comments: PATIENT WAS FASTINGPERFORMED BY: [facility] Health SolutionsHoboken University Medical CenterJccxwu0070 [facility] [id number] TSH 3.670 {uIU/mL} (Normal) Range: 0.450-4.500 70-Ruk-523474:01 URINALYSIS, W/ MICRO (80092) Comments: PATIENT WAS FASTINGPERFORMED BY: [facility] [id number] Microscopic Examination See below: (Normal) Bilirubin Negative (Normal) Microscopic Examination MICRON (Normal) Comments: Microscopic follows if indicated. Nitrite, Urine Negative (Normal) Urobilinogen,Semi-Qn 0.2 mg/dL (Normal) Range: 0.0-1.9 Glucose Negative (Normal) Ketones Negative (Normal) Occult Blood Negative (Normal) Protein Negative (Normal) WBC Esterase Negative (Normal) Appearance Clear (Normal) pH 6.0 (Normal) Range: 5.0-7.5 Specific [place] 1.024 (Normal) Range: 1.005-1.030 Urine-Color Yellow (Normal) 36-Qez-753660:01 MICROALBUMIN: CREATININE RATIO Comments: PATIENT WAS FASTINGPERFORMED BY: [facility] Health SolutionsHoboken University Medical CenterZqxsqj3529 [facility] [id number] (50093) AND (08030) Microalb/Creat Ratio <.4 {mg/g_creat} (Normal) Range: 0.0-30.0 Microalbumin, Urine <1.0 ug/mL (Normal) Range: 0.0-17.0 Creatinine, Urine 226.9 mg/dL (Normal) Range: 22.0-328.0 54-Dkc-458085:01 METABOLIC PANEL, COMPREHENSIVE Comments: PATIENT WAS FASTINGPERFORMED BY: [facility] Health SolutionsHoboken University Medical CenterBphrnd8929 [facility] [id number] (19134) A/G Ratio 2.0 (Normal) Range: 1.1-2.5 Alkaline [...] Glucose, Serum 93 mg/dL (Normal) Range: 65-99 70-Cui-565317:01 LIPID PANEL (47879) Comments: PATIENT WAS FASTINGPERFORMED BY: LabCoHoboken University Medical CenterAyuixl9161 [facility] [id number] HDL Cholesterol 46 mg/dL (Normal) Comments: According to ATP-III Guidelines, HDL-C >59 mg/dL is considered anegative risk factor for CHD. LDL Cholesterol Calc 70 mg/dL (Normal) Range: 0-99 LDL/HDL Ratio 1.5 {ratio_units} (Normal) Range: 0.0-3.6 VLDL Cholesterol Ezequiel 18 mg/dL (Normal) Range: 5-40 Cholesterol, Total 134 mg/dL (Normal) Range: 100-199 Triglycerides 89 mg/dL (Normal) Range: 0-149 81-Uor-258942:01 CBC WITH MANUAL DIFF Comments: PATIENT WAS FASTINGPERFORMED BY: LabCoHoboken University Medical CenterYxlumi8946 [facility] [id number] Information: [id number] (96459) Baso (Absolute) 0.0 {x10E3/uL} (Normal) Range: 0.0-0.2 [...] (Normal) Range: 4.0-10.5 :59 HgA1C , Office (78340) HgA1C , Office 6.6 % (Normal) Range: 4.6 - 7.1 :59 Blood Glucose , Office (59119) Blood Glucose , Office 105 (Normal) :29 HgA1C , Office (42419) Comments: done km HgA1C , Office 7.2 % (Abnormal) Range: 4.6 - 7.1 :29 Blood Glucose , Office (60396) Comments: done km Blood Glucose , Office 134 (Normal) :04 HgA1C , Office (56650) Comments: done km HgA1C , Office 6.7 % (Normal) Range: 4.6 - 7.1 :04 Blood Glucose , Office (93768) Comments: done km Blood Glucose , Office 141 (Normal) :27 TSH (13240) Comments: PATIENT WAS FASTINGPERFORMED BY: Lab9sky.comHoboken University Medical CenterNfhkdt6567 [facility] [id number] TSH 3.740 {uIU/mL} (Normal) Range: 0.450-4.500 :27 METABOLIC PANEL, COMPREHENSIVE Comments: PATIENT WAS FASTINGPERFORMED BY: MycoTechnologyHoboken University Medical CenterLjuypg0736 [facility] [id number] (41980) A/G Ratio 1.7 (Normal) Range: 1.1-2.5 Albumin, [...] Range: 135-145 :27 LIPOPROTEIN, BLD, BY NMR (30109) Comments: PATIENT WAS FASTINGClinical Information: ADD [id number], [id number] PERFORMED BY: mobilePeopleThe [facility]er [facility] [id number] Cholesterol, Total 149 mg/dL (Normal) HDL-C 41 [...] mg/dL (Normal) :27 CBC WITH MANUAL DIFF (25378) Comments: PATIENT WAS FASTINGPERFORMED BY: [employer] LabOptimum MagazineBlue Ridge Regional Hospital [id number] Baso (Absolute) 0.0 {x10E3/uL} (Normal) Range: 0.0-0.2 [...] (Normal) Range: 4.0-10.5 :55 HgA1C , Office (39791) Comments: done km HgA1C , Office 5.9 % (Normal) Range: 4.6 - 7.1 :55 Blood Glucose , Office (04289) Comments: done km Blood Glucose , Office 115 (Normal) 39-Jhs-483108:10 TSH (67367) Comments: REpeat first week in September; PATIENT NOT FASTINGClinical Information: ADD DRAW FEE [id number] ADD J [id number] PERFORMED BY: LabCoHoboken University Medical CenterAoysrf9343 [facility] [id number] TSH 3.800 {uIU/mL} (Normal) Range: 0.450-4.500 04-Uuj-948501:48 TSH (51112) Comments: PATIENT WAS FASTINGPERFORMED BY: [facility]6370 [facility] [id number] TSH 4.538 {uIU/mL} (Abnormal) Range: 0.450-4.500 88-Vzu-772797:48 MICROALBUMIN: CREATININE RATIO Comments: PATIENT WAS FASTINGPERFORMED BY: [address] [id number] (04060) AND (04800) Creatinine, Urine 370.1 mg/dL (Abnormal) Range: 22.0-328.0 Microalb/Creat Ratio 1.0 {ug/mg_creat} (Normal) Range: 0.0-30.0 Microalbumin, Urine 3.7 ug/mL (Normal) Range: 0.0-17.0 56-Sia-221462:48 METABOLIC PANEL, COMPREHENSIVE Comments: PATIENT WAS FASTINGPERFORMED BY: [employer] Media WorldwideGarden City Hospital6370 [facility] [id number] (17781) A/G Ratio 1.6 (Normal) Range: 1.1-2.5 Albumin, [...] Sodium, Serum 140 mmol/L (Normal) Range: 135-145 14-Qux-325608:48 CBC WITH MANUAL DIFF (06745) Comments: PATIENT WAS FASTINGClinical Information: ADD DRAW FEE [id number] ADD J [id number] PERFORMED BY: LabGarden City Hospital6370 [facility] [id number] Baso (Absolute) 0.0 {x10E3/uL} (Normal) Range: 0.0-0.2 [...] {x10E3/uL} (Normal) Range: 4.0-10.5 :48 LIPID PANEL (29237) Comments: PATIENT WAS FASTINGPERFORMED BY: [facility] Dspowi9547 [facility] [id number] Cholesterol, Total 171 mg/dL (Normal) Range: 100-199 HDL Cholesterol 45 mg/dL (Normal) Comments: According to ATP-III Guidelines, HDL-C >59 mg/dL is considered anegative risk factor for CHD. LDL Cholesterol Calc 99 mg/dL (Normal) Range: 0-99 LDL/HDL Ratio 2.2 {ratio_units} (Normal) Range: 0.0-3.6 Triglycerides 133 mg/dL (Normal) Range: 0-149 VLDL Cholesterol Ezequiel 27 mg/dL (Normal) Range: 5-40 :24 HgA1C , Office (13864) Comments: done HgA1C , Office 6.5 % (Normal) Range: 4.6 - 7.1 :24 Blood Glucose , Office (20806) Comments: done Blood Glucose , Office 113 (Normal) :38 HgA1C , Office (90988) Comments: done HgA1C , Office 6.0 % (Normal) Range: 4.6 - 7.1 :38 Blood Glucose , Office (95098) Comments: done Blood Glucose , Office 132 (Normal) :09 PSA,TOT SCREEN 1.30 ng/mL (Normal) Range: 0.00-4.00 Comments: This test was performed using the TPSA method for the[facility] chemistry system.Values obtained with different assay methods cannot be usedinterchangably.When changing PSA assays in the course of monito ring apatient, additional sequential testing should be carriedout to confirm baseline values. :00 HgA1C , Office (08999) Comments: done sylvain HgA1C , Office 7.4 % (Abnormal) Range: 4.6 - 7.1 :00 Blood Glucose , Office (10813) Comments: done sylvain Blood Glucose , Office 138 (Normal) :32 MYOCARD PERF SPECT REST/STRESS Radiology Report See Note (Normal) Comments: Exam Number: [id number] MYOCARDIAL PERFUSION SCAN TECHNIQUEThe patient was injected [...] of 60%. Reported By: LOUIS CASTILLO M.D. 05-Kho-831979:27 URINALYSIS W/O MICRO (72975) Comments: PATIENT WAS FASTINGPERFORMED BY: Socrates Health SolutionsHoboken University Medical CenterCeoljl0072 [facility] [id number] Appearance Clear (Normal) Bilirubin Negative (Normal) Glucose Negative (Normal) Ketones Negative (Normal) Microscopic Examination MICRON (Normal) Comments: Microscopic follows if indicated. Nitrite, Urine Negative (Normal) Occult Blood Negative (Normal) pH 7.5 (Normal) Range: 5.0-7.5 Protein Trace (Normal) Specific [place] 1.023 (Normal) Range: 1.005-1.030 Urine-Color Yellow (Normal) Urobilinogen,Semi-Qn 0.2 mg/dL (Normal) Range: 0.0-1.9 WBC Esterase Negative (Normal) 84-Ujn-641083:27 TSH (78719) Comments: PATIENT WAS FASTINGPERFORMED BY: [employer] Dgydmj8028 [facility] [id number] TSH 3.505 {uIU/mL} (Normal) Range: 0.350-5.500 Comments: Adult TSH concentrations below 5.5 uIU/mL do not rule out the presence of subclinical hypothyroidism. 03-Dej-109602:27 MICROALBUMIN URINE QUANT Comments: PATIENT WAS FASTINGPERFORMED BY: [employer] Izzxvo0241 [facility] [id number] (18134) Microalbum.,U,Random 4.4 ug/mL (Normal) Range: 0.0-17.0 07-Lgm-950250:27 METABOLIC PANEL, COMPREHENSIVE Comments: PATIENT WAS FASTINGPERFORMED BY: Socrates Health SolutionsLydia Ville 0059470 [facility] [id number] (30452) A/G Ratio 1.8 (Normal) Range: 1.1-2.5 Albumin, [...] Serum 132 mg/dL (Abnormal) Range: 65-99 If -Bahraini >60 mL/min (Normal) Range: 60-137 Comments: Note: [...] Sodium, Serum 140 mmol/L (Normal) Range: 135-145 35-Zqp-629475:27 CBC WITH MANUAL DIFF (60809) Comments: PATIENT WAS FASTINGClinical Information: ADD [id number], ADD [id number] PERFORMED BY: LabGarden City Hospital6370 [facility] [id number] Baso (Absolute) 0.0 {x10E3/uL} (Normal) Range: 0.0-0.2 [...] {x10E3/uL} (Normal) Range: 4.0-10.5 :27 LIPID PANEL (37926) Comments: PATIENT WAS FASTINGPERFORMED BY: LabCoHoboken University Medical CenterPokctf3351 [facility] [id number] LDL/HDL Ratio 2.4 {ratio_units} (Normal) Range: 0.0-3.6 Cholesterol, Total 212 mg/dL (Abnormal) Range: 100-199 Comment SPR (Normal) Comments: If initial LDL-cholesterol result is >100 mg/dL, assess forrisk factors. HDL Cholesterol 52 mg/dL (Normal) Range: 40-59 LDL Cholesterol Calc 123 mg/dL (Abnormal) Range: 0-99 Triglycerides 184 mg/dL (Abnormal) Range: 0-149 VLDL Cholesterol Ezequiel 37 mg/dL (Normal) Range: 5-40 :28 HgA1C , Office (48244) Comments: done km HgA1C , Office 6.9 % (Normal) Range: 4.6 - 7.1 :28 Blood Glucose , Office (54507) Comments: done km Blood Glucose , Office 157 (Normal) :58 HgA1C , Office (37398) Comments: done HgA1C , Office 6.6 % (Normal) Range: 4.6 - 7.1 :58 Blood Glucose , Office (05489) Comments: done Blood Glucose , Office 136 [...] was performed using the TPSA method for the[employer] chemistry system.Values obtained with different assay methods cannot be usedinterchangably.When changing PSA assays in the course of monito ring apatient, additionaly sequential testing should be carriedout to confirm baseline values. :29 TSH 3.67 {uIU/mL} (Normal) Range: 0.34-4.82 :39 Blood Glucose , Office (85405) Comments: done Blood Glucose , Office 98 (Normal) :39 HgA1C , Office (02508) Comments: done km HgA1C , Office 6.5 % (Normal) Range: 4.6 - 7.1 :57 HgA1C , Office (33639) HgA1C , Office 6.5 % (Normal) Range: 4.6 - 7.1 :57 Blood Glucose , Office (81667) Blood Glucose , Office 138 (Normal) :03 HgA1C , Office (53382) HgA1C , Office 6.6 % (Normal) Range: 4.6 - 7.1 5-Atw-525915:03 Blood Glucose , Office (05964) Blood Glucose , Office 92 (Normal) 23-Lfd-283994:28 LIVER ALB 3.6 g/dL (Normal) Range: 3.4-5.0 ALK P 96 U/L (Normal) Range: 50-136 ALT 47 [iU]/L (Normal) Range: 30-65 AST 20 U/L (Normal) Range: 15-37 D BILI 0.08 mg/dL (Normal) Range: 0.00-0.30 T BILI 0.44 mg/dL (Normal) Range: 0.00-1.00 T PROT 6.9 g/dL (Normal) Range: 6.4-8.2 81-Rye-514212:28 MICROALB:CRE UR MALB:CREAT 8.4 {mg/g_CRE} (Normal) MICROALBUMIN,UR [...] 1 month- gen med / will need [facility] Indication: Physical exam WITHOUT abnormal findings [...] from H/O transient cerebral ischemia) : Reviewed Paper Tube Grader Letter Indication: History of transient cerebral ischemia (Renamed from H/O transient cerebral ischemia) Hypertensive urgency : Reviewed Paper Tube Grader Letter Indication: Hypertensive urgency Heart disease, hypertensive, [...] Current Prescription(s) Indication: Hypothyroidism Hypothyroidism : Reviewed Paper Tube Grader Letter Indication: Hypothyroidism Uncontrolled type II diabetes [...] i plan from there Planned Observations CALCIFIDIOL (72997) VIT D 25Indication: Vitamin D deficiency On: :44 Request TSH (90151)Indication: Hypothyroidism On: :43 Request URINALYSIS, W/ MICRO (67820)Indication: Controlled diabetes mellitus type II without complication On: :43 Request MICROALBUMIN: CREATININE RATIO (42084) AND (47728)Indication: Controlled diabetes mellitus type II without complication On: :43 Request METABOLIC PANEL, COMPREHENSIVE (93536)Indication: Controlled diabetes mellitus type II without complication On: :43 Request CBC W/AUTO DIFF WBC (96310)Indication: Controlled diabetes mellitus type II without complication On: :43 Request LIPOPROTEIN, BLD, BY NMR (69487)Indication: Hypercholesterolemia On: :43 Request T4, FREE (THYROXINE) (95437)Indication: Hypothyroidism On: :48 Request T3, FREE (TRIDOTHYRONINE) (16788)Indication: Hypothyroidism On: :48 Request URINALYSIS, W/ MICRO (01103)Indication: Essential hypertension On: :47 Request MICROALBUMIN: CREATININE RATIO (41111) AND (81248)Indication: Essential hypertension On: :47 Request METABOLIC PANEL, COMPREHENSIVE (70272)Indication: Essential hypertension On: :47 Request CBC W/AUTO DIFF WBC (08620)Indication: Essential hypertension On: :47 Request LIPID PANEL (90896)Indication: Hypercholesterolemia On: :47 Request TSH (65531)Indication: Hypothyroidism On: :47 Request CALCIFIDIOL (38139) VIT D 25Indication: Vitamin D deficiency On: :47 Request Influenza A&B Viral Culture (80728)Indication: Flu-like symptoms On: 8-Wyj-840239:53 Request POTASSIUM SERUM (78246)Indication: Potassium disorder On: 45-Lrn-512232:53 Request CALCIFEDIOL (33059)Indication: Vitamin D deficiency On: 07-Zsb-11935:36 Request TSH (64882)Indication: Hypothyroidism On: 79-Moo-61430:35 Request Lipid Panel (30417)Indication: Hypercholesterolemia On: 37-Tam-88906:34 Request Metabolic Panel, Comprehensive (32052)Indication: Hypercholesterolemia On: 81-Vpz-80212:34 Request URINE VMA (55346)Indication: Hypertensive urgency On: 57-Rlw-753644:54 Request Catecholamines,24-Hour Urine (03975)Indication: Hypertensive urgency On: 94-Qpx-019711:54 Request RENIN (36169)Indication: Hypertensive urgency On: 50-Mke-543140:54 Request ALDOSTERONE (82384)Indication: Hypertensive urgency On: 19-Qhd-794048:54 Request METANEPHRINES (45716)Indication: Hypertensive urgency On: 50-Ldn-571978:54 Request CBC (Auto) (97738)Indication: Hypertensive urgency On: 02-Sbd-286770:36 Request Metabolic Panel, Basic (31673)Indication: Hypertensive urgency On: 53-Mcw-117162:36 Request TSH (21842)Indication: Hypertensive urgency On: 26-Kle-892178:24 Request CBC WITH MANUAL DIFF (42573)Indication: Hypertensive urgency On: :24 Request METABOLIC PANEL, COMPREHENSIVE (10329)Indication: Hypertensive urgency On: :24 Request Troponin I (21200)Indication: Hypertensive urgency On: :20 Request CPK MB FRACTION (53080)Indication: Hypertensive urgency On: :20 Request CREATINE KINASE TOTAL (15331)Indication: Hypertensive urgency On: :20 Request TSH (17524)Indication: Hypothyroidism On: :56 Request HgA1C , Office (77326)Indication: Controlled diabetes mellitus type II without complication On: :56 Request PSA (PROSTATE SPECIFIC ANTIGEN) (V76.44)Indication: Screening for prostate cancer On: :20 Request TSH (54900)Indication: Uncontrolled type II diabetes mellitus On: :19 Request URINALYSIS, W/ MICRO (80974)Indication: Uncontrolled type II diabetes mellitus On: :19 Request MICROALBUMIN: CREATININE RATIO (40592) AND (53057)Indication: Uncontrolled type II diabetes mellitus On: :19 Request METABOLIC PANEL, COMPREHENSIVE (99717)Indication: Uncontrolled type II diabetes mellitus On: :19 Request LIPOPROTEIN, BLD, BY NMR (22522)Indication: Uncontrolled type II diabetes mellitus On: :19 Request LIPID PANEL (82363)Indication: Uncontrolled type II diabetes mellitus On: :19 Request CBC WITH MANUAL DIFF (66340)Indication: Uncontrolled type II diabetes mellitus On: :19 Request LIPOPROTEIN, BLD, BY NMR (04258)Indication: Hypercholesterolemia On: :57 Request LIPID PANEL (23877)Indication: Hypercholesterolemia On: :57 Request Comments: do in 3 months LIPID PANEL (65593)Indication: Controlled diabetes mellitus type II without complication On: :22 Request T3, FREE (TRIDOTHYRONINE) (71653)Indication: Abnormal TSH On: :40 Request T4, FREE (THYROXINE) (97456)Indication: Abnormal TSH On: :40 Request TSH (67105)Indication: Abnormal TSH On: :40 Request Comments: do in 2-3 mo TSH (17946)Indication: Controlled diabetes mellitus type II without complication On: :29 Request METABOLIC PANEL, COMPREHENSIVE (29892)Indication: Controlled diabetes mellitus type II without complication On: :29 Request MICROALBUMIN: CREATININE RATIO (99200) AND (42567)Indication: Controlled diabetes mellitus type II without complication On: :29 Request CBC WITH MANUAL DIFF (69574)Indication: Controlled diabetes mellitus type II without complication On: : Request LIPID PANEL (31908)Indication: Controlled diabetes mellitus type II without complication On: :29 Request PSA (PROSTATE SPECIFIC ANTIGEN) (V76.44)Indication: Uncontrolled type II diabetes mellitus On: :18 Request LIPID PANEL (21806)Indication: Hypercholesterolemia On: 41-Gvx-709938:02 Request HEPATIC FUNCTION PANEL (85437)Indication: Hypercholesterolemia On: 38-Lmm-717123:02 Request TSH (10967) On: :45 Request METABOLIC PANEL, COMPREHENSIVE (83362) On: :44 Request LIPID PANEL (25909) On: :44 Request CBC WITH MANUAL DIFF (94790) On: :44 Request PSA (PROSTATE SPECIFIC ANTIGEN) (96925) On: :17 Request Comments: screening TSH (05675) On: :14 Request URINALYSIS W/O MICRO (67033) On: :14 Request MICROALBUMIN URINE QUANT (71339) On: :14 Request LIPID PANEL (74887) On: :14 Request METABOLIC PANEL, COMPREHENSIVE (94647) On: :14 Request CBC WITH MANUAL DIFF (79209) On: :14 Request MICROALBUMIN: CREATININE RATIO (19010) On: :07 Request AND (49479) METABOLIC PANEL, COMPREHENSIVE (76964) On: :07 Request LIPID PANEL (15285) On: : Request CBC WITH MANUAL DIFF (27735) On: : Request Planned Encounters Medical; 3 Month FU - On: 07-Feb-2018 10:00 [facility] Denisa Macias DO, DO, Kathleen Planned Procedures TD VACCINE ADULT (89110)By: On: 23-Dec-2017 Intent Anne Hastings Comments: a105a3/57720.5mlr dltd, IMMLONG Flu Vaccine (Quadrivalent) On: 28-Nov-2017 Intent 40963We: Visit, Nurse Comments: Lot #[id number]/30/19Site-L dltd, IMDose prefilled syringegiven by: Genna VARGAS.VIS reviewed and ABN signed X-RAY RIGHT KNEE, 3 VIEWS On: 31-Jul-2017 Intent (52873)By: Denisa Macias DO, DO, Kathleen Radiology - Knee - Right - Weight On: 31-Jul-2017 Intent BearingBy: Denisa Macias DO, DO, Kathleen ELECTROCARDIOGRAM, COMPLETE (ECG) On: 31-Jul-2017 Intent (96302)By: Denisa Macias DO Comments: nsr no acute chg Denisa Macias DO CT - Brain/Head (IV Contrast On: 31-Dec-2016 Intent Needed)By: Denisa Macias DO, DO, Kathleen Echo CompleteBy: Colleen GARCIA, On: 31-Dec-2016 Intent Denisa Valladares DO [id number] BEHAVIORAL On: 31-Dec-2016 Intent COUNSELING FOR OBESITY, 15 MINUTES (G0447)By: Denisa Macias DO, DO, Kathleen Flu Vaccine (Quadrivalent) On: 17-Dec-2016 Intent 32497Op: Denisa Macias DO Comments: Lot:[id number]:09/09/17Amt:0.5mlRoute:IMSite: L DltdGiven By: YURY Valdez signed Denisa Macias DO MAGNETIC RESONANCE ANGIOGRAPHY OF On: 24-Sep-2016 Intent CAROTID AND VERTEBRAL VESSELS (81605)By: Denisa Macias DO, DO, Kathleen ELECTROCARDIOGRAM, COMPLETE (ECG) On: 24-Sep-2016 Intent (03932)By: Denisa Macias DO Comments: sinus gabby no acute chg- on BB Denisa Macias DO Renal Duplex ScanBy: Colleen GARCIA, On: 24-Sep-2016 Intent Denisa Valladares DO ELECTROCARDIOGRAM, COMPLETE (ECG) On: 10-Sep-2016 Intent (23343)By: Denisa Macias DO Comments: sinus gabby no acute chg Denisa Macias DO CT HEAD OR BRAIN WO CONTRAST On: 21-May-2016 Intent (95337)By: Denisa Macias DO, DO, Kathleen Flu Vaccine (Quadrivalent) On: 23-Dec-2015 Intent 00791Vd: Emeka Levin Comments: FLUlot: [id number]:08/08site:Lt deltoidroute:IMdose:.5mlDEMICK, MA Echo CompleteBy: Colleen GARCIA, On: 24-Oct-2015 Intent Denisa Vall[address]res DO CT SCAN OF CHEST WITH CONTRAST On: 24-Oct-2015 Intent (76224)By: Denisa Macias DO, DO, Kathleen CT - Chest (IV Contrast On: 20-Jun-2015 Intent Needed)By: Denisa Macias DO, DO, Kathleen Echo CompleteBy: Colleen GARCIA, On: 21-Feb-2015 Intent Denisa Valladares DO Flu Vaccine (Quadrivalent) On: 05-Jan-2015 Intent 89871Ee: Denisa Macias DO Comments: lot [id number]: 09/22/2015site/route L rafa, IMamt 0.5mlVIS and ABN signed when applicableMelody [facility] Denisa Macias DO ELECTROCARDIOGRAM, COMPLETE (ECG) On: 16-Nov-2014 Intent (00804)By: Denisa Macias DO Comments: nsr no acute changes - Denisa Macias DO Prevnar 13 (42949)By: Colleen GARCIA, On: 10-May-2014 Intent Denisa Valladares DO Comments: Lot:[id number]:08/07Dose:0.5mgRoute:imSite:l armGiven By:MIGUEL ÁNGEL signed Inhaler Demonstration (62665)By: On: 23-Mar-2014 Intent Hayley Stone CNP ADMINISTRATION OF INFLUENZA VIRUS On: 25-Dec-2013 Intent VACCINE (G0008)By: Visit, Nurse Comments: Lot #[id number]-L dltd, IMDose prefilled syringegiven by:YURY Seymour and IRAIS signed FLU VAC, SPLIT, >3 YEARS, On: 25-Dec-2013 Intent INTRAMUSC (45320)By: Visit, Nurse EKG (58294)By: Colleen GARCIA, On: 08-Oct-2013 Intent Denisa Colleen [...] PNEUM VAC ADLT/IMUMNOSPR, On: 19-Dec-2012 Intent SBC/INTRM (89664)By: Luis, Comments: Lot:[id number]:10/25/13Dose:0.5mgRoute:imSite:r armGiven By:MIGUEL ÁNGEL signed Marge ADMINISTRATION OF PNEUMOCOCCAL On: 19-Dec-2012 Intent VACCINE (G0009)By: Marge Smith FLU VAC, SPLIT, >3 YEARS, On: 17-Dec-2012 Intent INTRAMUSC (45433)By: Kely, Comments: Lot:[id number]:6.14Amt:0.5mlRoute:IMSite: L DltdGiven By: YURY Valdez LPN Eprescribed [...] 04-Aug-2012 Intent Denisa Colleen DO, Denisa EKG (02626)By: Colleen DO, On: 28-Jul-2012 Intent Denisa Colleen [...] - HIDA w/CPKBy: On: 19-Dec-2011 Intent Ciesa BANQUET COORDINATOR, Supriya EKG (44794)By: Colleen DO, On: 13-Dec-2011 Intent Denisa Colleen DO, Denisa Comments: nsr no acute chg Ultrasound - GallbladderBy: On: 29-Nov-2011 Intent Colleen DO, Denisa Colleen DO, Denisa Eprescribed prescriptions On: 29-Nov-2011 Intent (G8553)By: Anne Edge LPN FLU VAC, SPLIT, >3 YEARS, On: 27-Nov-2011 Intent INTRAMUSC (72338)By: Georgette VARGAS, Comments: Lot #[id number]/30/13Site-left deltoidgiven by: ALICIA Raymond ADMINISTRATION OF INFLUENZA VIRUS On: 27-Nov-2011 Intent VACCINE (G0008)By: Marissa Palomino LPN MRI - Lumbar Spine (IV Contrast On: 26-Jan-2011 Intent Needed)By: Denisa Macias DO, DO, Kathleen EKG (16317)By: Colleen GARCIA, On: 05-Jan-2011 Intent Denisa Valladares DO Comments: nsr no acute chg Cartoid DopplerBy: Colleen GARCIA, On: 05-Jan-2011 Intent Denisa Valladares DO EKG (86166)By: Colleen GARCIA, On: 06-Dec-2010 Intent Denisa Valladares DO Comments: nsr no acute chgn- Bio Z (19631)By: Colleen GARCIA, On: 06-Dec-2010 Intent Denisa Valladares DO Comments: stabel parameters- no chg in rx IMMUNIZ ADMNIN, 1 VAC, SNGL/COMBO On: 06-Dec-2010 Intent (22831)By: Denisa Macias DO, DO, Kathleen FLU VAC, SPLIT, >3 YEARS, On: 06-Dec-2010 Intent INTRAMUSC (41101)By: Denisa Macias DO, DO, Kathleen TDAP VACCINE >7 IM (06765)By: On: 30-Aug-2010 Intent Denisa Macias DO, DO, Comments: Lot #[id number]/25/13Site-left deltoidgiven by: ALICIA Raymond ADMINISTRATION OF INFLUENZA VIRUS On: 27-Dec-2009 Intent VACCINE (G0008)By: Edilia Vasquez LPN FLU VAC, SPLIT, >3 YEARS, On: 27-Dec-2009 Intent INTRAMUSC (92375)By: Pedro VARGAS, Comments: Lot #[id number] 4PExp-07/03Site-L armDose0.5mlgiven by:GLEN Cruz EKG (40433)By: Colleen GARCIA, On: 15-Nov-2009 Intent Denisa Valladares DO Comments: nsr no acute changes MRI - Shoulder(s) - LeftBy: On: 11-May-2009 Intent Denisa Macias DO, DO, Kathleen Bio Z (38515)By: Colleen GARCIA, On: 25-Oct-2008 Intent Denisa Valladares DO Comments: NORMAL SVR AND CO EKG (01169)By: Colleen GARCIA, On: 25-Oct-2008 Intent Denisa Valladares DO Comments: NSR NO ACUTE CHANGES Bio Z (34271)By: Colleen GARCIA, On: 04-Jun-2008 Intent Denisa Valladares DO Comments: normal IMMUNIZ ADMNIN, 1 VAC, SNGL/COMBO On: 05-Jan-2008 Intent (96432)By: Denisa Macias DO, DO, Kathleen FLU VAC, SPLIT, >3 YEARS, On: 05-Jan-2008 Intent INTRAMUSC (84448)By: Denisa Macias DO, DO, Kathleen Bio Z (41003)By: Colleen GARCIA, On: 07-Nov-2007 Intent Denisa Valladares DO Comments: normal svr and co Nuclear Stress Test/Stress On: 15-Sep-2007 Intent SPECT/TreadmillBy: Colleen GARCIA, Comments: heart group Denisa Valladares DO Echo CompleteBy: Colleen GARCIA, On: 07-Aug-2007 Intent Denisa Valladares DO Cartoid DopplerBy: Colleen GARCIA, On: 07-Aug-2007 Intent Denisa Valladares DO EKG (84801)By: Colleen GARCIA, On: 07-Aug-2007 Intent Denisa Valladares DO Comments: nsr no acute ischemic changes EKG (35607)By: Colleen GARCIA, On: 29-Nov-2006 Intent Denisa Valladares [...] The patient does have durable power of assistant district attorney and living will. The patient has [...] The patient does have durable power of assistant district attorney and living will. The patient has noticed nothing from the geriatic depression scale. Other providers contributing to the patient's care are fiber optics supervisor (dr liu) and other: ([facility], vision test up to date).Encounter Diagnosis: Physical [...] in bathroom. The patient [facility]ative measures: PSA testing (2011) and colonoscopy (2011). The patient does have durable power of assistant district attorney and living will. The patient has noticed nothing from the geriatic depression scale . Other providers contributing to the patient's care are fiber optics supervisor (Dr. Antonio) and surgeon (Dr. Negro -- [...] criselda toscano does have durable power of assistant district attorney and living will. The patient has noticed nothing from the geriatic depression scale. Other providers contributing to the patient's care are granulizing machine operator and other: (migratory game bird biologist, ENT). Encounter Diagnosis: Type II Diabetes,controlled (250.00), [...]
--- OUTSIDE RECORDS SUMMARY | 2018-06-16 22:08 | XMS RPT_ITS | Continuity of Care Document ---
:1945 External Reference #:[id number] Author Organization [facility] Address [address] [facility] [address] [place] [address] Phone Care Team Providers Name Role Phone [...] not in neptali anymore so we will hop picker ball Status: Active TUBULOVILLOUS ADENOMA, NOS [...] DO, Kathleen Start : 27-Dec-2016 Active Pen Artie 5/16 31G X 8 MM Miscellaneous 1 [...] (External Solution) uad (10 %) Inactive Comments:Trillium Kotlik Levitra 10 MG Oral Tablet 1 Tablet [...] Daily for 0 days Refills: 0 Ordered:29-Nov-2006 Brittaeny Nina Start : 29-Nov-2006 End : 31-Mar-2007 [...] : 15-May-2017 End : 31-Jul-2017 Inactive ASPIRIN BUF(YPKZYH-DURKST-TYC), 325MG (Oral Tablet) 1 (one) Tablet Daily [...] Abdomen Limited Result: Comments: See Note; NOTES: [facility] Imaging Services [address] [place] [address] Abdomen Limited MR#: [id number] Acct: [id number] Name: YOHANNES CADET Rep #: [id number] : 1945 M 72 From: Jakob Hunt MD PCP: Denisa Macias DO Status: REG CLI Study: Abdomen Limited Date of Exam: 04/01/18 Exam# [id number] Ordering Dr: Denisa Macias DO STUDY: ABDOMINAL [...] Jakob Hunt MD at 14:49 EST Tel [phone], Service support , CC: Denisa Macias DO 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 Is patient in pain ?: [...] mg PO DAILY 02/27/18 [History Confirmed 02/27/18] multivitamin,ac-pevd-qwxulkyq tablet 1 tab PO DAILY 02/27 [History Confirmed 02/27/18] ramipril 5 mg capsule 5 mg PO DAILY 02/27/18 [History Confirmed 02/27/18] sitagliptin 100 mg tablet 100 mg PO DAILY 02/27/18 [History Confirmed 02/27/18] [facility] Medical History Diabetes mellitus (Acute) Hypothyroidism [...] a 72 M who presents to the [facility] today for evaluation of a questionable [...] Foreign body of right hand, initial encounter S60.556G Plan At this point I do not [...] Foreign body of right hand, initial encounter S60.972I Encounter type: initial encounter Laterality: right 02/28/18 0826 <Electronically signed by Jhonathan Stafford MD> Date __ Jhonathan Stafford MD Cosigner Signature: Date (if applicable) CC: Denisa Macias DO 07-Feb-2018 Hand 2 Views Result: Comments: See Note; NOTES: [facility] Imaging Services [address] [place] [address] Hand 2 Views MR#: [id number] Acct: [id number] Name: LATOYAYOHANNES F Rep #: [id number] : 0 1945 M 72 From: Morales Perla MD PCP: Denisa Macias DO Status: REG CLI Study: Hand 2 Views Date of Exam: 02/07/18 Exam# [id number] Ordering Dr: Denisa Macias DO STUDY: X-RAY [...] Service support , CC: Denisa Macias DO 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 [address] [place] [address] Fax REHABILITATION SERVICES DISCHAR GE SUMMARY MR#: [id number] Acct: [id number] Name: YOHANNES CADET Rep #: [id number] [...] please feel free to call me at [phone]. Thank you for the referral of this patient. Sincerely, Aftab Mendez, PT, <Electronically signed by Aftab Mendez PT, ATC> 12/05/16 1100 CC: Nik valdes DPM; Denisa Macias DO [facility] Signed 09-Oct-2016 Inital Evaluation (1) - PT Result: Comments: See Note; NOTES: [facility] [address] [facility]. [address] [place] [address] Fax REHABILITATION SERVICES INITIAL EVALUATION MR#: [id number] Acct: [id number] Name: YOHANNES CADET Rep #: [id number] : 1945 71 From: Aftab Mendez PT, ATC Referring DrAddi: Nik Ch DPM Status: REG RCR Insurance: [facility] PART A B WPS FOR LIFE Patient's [...] to be FAXED BACK to us at [phone] for Medicare purposes. Please let me know if there are questions or concerns regarding this plan of care. Physician Signature: Date: <Electronically signed by Aftab Mendez PT, ATC> 1001 CC: Nik Ch DPM; Denisa Macias DO [facility] Signed For Medicare only, by signing this I certify the plan of care. 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: Signed 14-Nov-2015 Echocardiogram Complete Result: Comments: See Note; NOTES: [facility] Cardiovascular Services [address] [place] [address] Echo Complete 11/14/15 1303 MR#: [id number] Acct: [id number] Name: YOHANNES CADET Rep #: [id number] : 1945 70 From: Layo Raymond MD Attending Dr: Denisa Macias DO Status: REG CLI Ordering Dr: Denisa Macias DO Date: 11/14/15 Location: [facility] Sex: M C Admitted: Reason Fo r [...] Dictated: 10/24 05/10 1303 Date Transcribed: 11/14/151648 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: Signed 14-Nov-2015 Chest WITH Contrast Result: Comments: See Note; NOTES: [facility] Imaging Services [address] [place] [address] [place] [address] Verdana 4d Chest WITH Contrast MR#: [id number] Acct: [id number] Name: YOHANNES CADET Rep #: [id number] : 1945 M 70 From: Asia Peres MD PCP: Denisa Macias DO Status: [facility] CLI Study: Chest WITH Contrast Date of Exam: 11/14/15 Exam# [id number] Ordering Dr: Denisa Macias TUDY: CT CHEST [...] Service support , CC: Denisa Macias DO 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: Signed 24-Oct-2015 ELECTROCARDIOGRAM, COMPLETE (ECG) (56463) Comments: sinus gabby - no acute chg - same as old and on BB Result: [MEASUREMENTS ANALYSIS] Date of Test: 10/24/2015 09:30:26; Heart Rate: 55; WV Interval: 184; QRS: 105; QT Interval: 404; Corrected QT Interval (QTc): 396; P Wave Pomona: 26; QRS Wave Pomona: 27; T Wave Pomona : 34; Blood Pressure: 138/70 [ECG DIAGNOSTIC STATEMENTS] Date of Test: 10/24/2015 09:30:26; Summary: Sinus Bradycardia WITHIN NORMAL LIMITS 29-Sep-2015 Knee 4 or More Views Result: Comments: See Note; NOTES: [facility] Imaging Services [address] [facility] [place] [address] Verdana 4d Knee 4 or More Views MR#: [id number] Acct: [id number] Name: LATOYAYOHANNES Rep #: [id number] : 1945 [facility] From: Tripp Miller MD PCP: Denisa Macias DO Status: REG CLI Study: Knee 4 or More Views Date of Exam: 09/29/15 Exam# [id number] Ordering Dr: Carrol Bautista DO STUDY: X-RAY [...] FACR at 9:18 EDT , Service support [phone], RAD/Knee 4 or More Views IMPRESSION: Moderate arthrosis of the patellofemoral joint Electronically Signed: Tripp Miller MD, FACR at 9:18 EDT , Service support , CC: Carrol Kirkpatrick DO; Denisa Macias DO 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 [address] [place] [address] Fax REHABILITATION SERVICES DISCHARGE SUMMARY MR#: [id number] Acct: [id number] Name: YOHANNES CADET Rep #: [id number] : 1945 68 From: Baljit Silva Referring [...] referral. Baljit Silva, PT T: GI JOB: [id number] <Electronically signed by Baljit pantoja > 10/27/13 0758 CC: Signed 27-Jul-2013 Inital Evaluation - PT Result: Comments: See Note; NOTES: [facility] Physical [facility] [address] [facility]. 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 His goals are to find [...] We discussed with patient possibly using the asmm-xql-smeiltq orthotics before he considers fabricated orthotics due to cost. Uzair Silva, PT T: GI JOB: [id number] <Electronically signed by Baljit Silva > 07/27/13 1802 CC: Signed For Medicare only, by signing this I c ertify the plan of care. 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: Signed 09-Jul-2013 Pelvis 1 or 2 Views Result: Comments: See Note; NOTES: [facility] Imaging Services [address] [place] [address] Radiology Report MR#: [id number] Acct: [id number] Name: YOHANNES CADET Rep #: [id number] : 1945 M 67 From: Jakob Hunt MD PCP: Denisa Macias DO Status: REG CLI Study: Pelvis 1 or 2 Views Date of Exam: 07/09/13 Exam# [id number] Ordering Dr: Deinsa Macias DO S TUDY: X-RAY - PELVIS [...] Jakob Hunt MD at 13:32 EDT Tel [phone], Service support [phone], CC: Denisa Macias DO 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 WITHIN NORMAL LIMITS Immunization Name Dates Details Influenza (3 years and up) on: 05-Jan-2008 Family History Unknown Family Member Name Dates Details Father Comments: DC/CVA at 84 Status: Active Social History Name [...] 0.00 cm Results Date Description Value Details 9-Uqi-125651:40 HELICOBACTER PYLORI ANTIBODY Comments: PATIENT NOT FASTINGPERFORMED BY: [facility] Mczeeu4227 [facility] [id number] PROFILE IgG, IgM, IgA (70256) H. pylori, IgG Abs 0.14 {Index_Value} (Normal) Range: 0.00-0.79 Comments: Negative <0.80 Equivocal 0.80 - 0.89 Positive >0.89 6-Jzw-869181:40 Amylase (44316) Comments: PATIENT NOT FASTINGPERFORMED BY: [facility] Faasev2785 [facility] [id number] Amylase 93 U/L (Normal) Range: 31-124 0-Ged-380799:40 Lipase (91443) Comments: PATIENT NOT FASTINGPERFORMED BY: [facility] Vazgtq5302 [facility] [id number] Lipase 41 U/L (Normal) Range: 13-78 9-Rvb-311369:40 Sed Rate Erythrocyte (69839) Comments: PATIENT NOT FASTINGPERFORMED BY: LabCoJer[facility] Medical CenterKidmbs2161 [facility] [id number] Sedimentation Rate-Westergren 8 mm/h (Normal) Range: 0-30 6-Mbs-262457:40 Metabolic Panel, Comprehensive Comments: PATIENT NOT FASTINGPERFORMED BY: [facility]CoJer[facility] Medical CenterFvlvro7011 [facility] [id number] (10231) ALT (SGPT) 17 [iU]/L (Normal) Range: 0-44 [...] 8-27 Glucose 152 mg/dL (Abnormal) Range: 65-99 8-Qgo-985099:40 CBC with auto diff (95478) Comments: PATIENT NOT FASTINGPERFORMED BY: [facility]CoJer[facility] Medical CenterLdexwk7021 [facility] [id number] Immature Grans (Abs) 0.0 {x10E3/uL} (Normal) Range: [...] 4.14-5.80 WBC 6.4 {x10E3/uL} (Normal) Range: 3.4-10.8 96-Cca-110580:59 HgA1C , Office (78768) HgA1C , Office 7.2 % (Abnormal) Range: 4.6 - 7.1 15-Czi-796257:59 Blood Glucose , Office (56578) Blood Glucose , Office 128 (Normal) 2-Xau-703232:20 Microscopic Examination Comments: PATIENT WAS FASTINGPERFORMED BY: BN [facility] [address] [id number] BY: CB [facility] Hkaxiu6172 [facility] [id number] Bacteria None seen (Normal) Mucus Threads Present (Normal) Epithelial Cells (non renal) None seen {/hpf} (Normal) Range: 0 - 10 RBC None seen {/hpf} (Normal) Range: 0 - 2 WBC 0-5 {/hpf} (Normal) Range: 0 - 5 0-Cuj-251172:20 CALCIFIDIOL (29672) VIT D Comments: PATIENT WAS FASTINGPERFORMED BY: [employer] [id number] BY: [employer] Zwfubo8073 [facility] [id number] 25 Vitamin D, 25-Hydroxy 55.7 ng/mL (Normal) Range: 30.0-100.0 Comments: Vitamin D deficiency has been defined by the [place] [facility] and an Endocrine Society practice guideline as alevel of serum 25-OH vitamin D less than 20 ng/mL (1,2).The Endocrine Society went on to further define vitamin Dinsufficiency as a level between 21 and 29 ng/mL (2).1. IOM ([place] [facility]). 2010. Dietary reference intakes for calcium and D. [place]: The National Academies Press.2. Charles MF, Raissa OCONNELL, Nirmala ALBERT, et al. Evaluation, treatment, and prevention of vitamin D deficiency: an Endocrine Society clinical practice guideline. JCEM. 2010; 96(7):1911-30. 6-Hxt-924815:20 TSH (54075) Comments: PATIENT WAS FASTINGPERFORMED BY: [facility] [id number] BY: OinkLos [facility]amos Medical CenterGhrfui7844 [facility] [id number] TSH 2.360 {uIU/mL} (Normal) Range: 0.450-4.500 4-Kwv-238275:20 URINALYSIS, W/ MICRO Comments: PATIENT WAS FASTINGPERFORMED BY: [employer] [id number] BY: [employer], IncJersey Shore University Medical CenterCunogr2554 [facility] [id number] (58670) Microscopic Examination See below: (Normal) Comments: Microscopic was indicated and was performed. Microscopic Examination MICRON (Normal) Comments: Microscopic follows if indicated. Nitrite, Urine Negative (Normal) Urobilinogen,Semi-Qn 0.2 mg/dL (Normal) Range: 0.2-1.0 Bilirubin Negative (Normal) Occult Blood Negative (Normal) Ketones Negative (Normal) Glucose Negative (Normal) Protein Negative (Normal) WBC Esterase Negative (Normal) Appearance Clear (Normal) Urine-Color Yellow (Normal) pH 5.0 (Normal) Range: 5.0-7.5 Specific [place] 1.019 (Normal) Range: 1.005-1.030 3-Rnv-026132:20 MICROALBUMIN: CREATININE Comments: PATIENT WAS FASTINGPERFORMED BY: [employer] [address] [id number] BY: OinkLos Alamos Medical CenterPsvyhx8054 [facility] [id number] RATIO (62628) AND (24854) Alb/Creat Ratio <2.4 {mg/g_creat} (Normal) Range: 0.0-30.0 Comments: Normal: 0.0 - 30.0 Albuminuria: 31.0 - 300.0 Clinical albuminuria: >300.0 Albumin, Urine <3.0 ug/mL (Normal) Creatinine, Urine 123.5 mg/dL (Normal) 0-Dzu-302465:20 METABOLIC PANEL, Comments: PATIENT WAS FASTINGPERFORMED BY: [facility] [id number] BY: OinkJer[facility] Shore University Medical CenterNyyhua9041 [facility] [id number] COMPREHENSIVE (48091) ALT (SGPT) 22 [iU]/L (Normal) Range: 0-44 [...] 8-27 Glucose 156 mg/dL (Abnormal) Range: 65-99 0-Kfb-160115:20 CBC W/AUTO DIFF WBC Comments: PATIENT WAS FASTINGPERFORMED BY: BN [facility] Xxdaenenti7052 [facility] [id number] BY: CB [facility] Zxzcst4980 [facility] [id number] (77303) Immature Grans (Abs) 0.0 {x10E3/uL} (Normal) Range: [...] 4.14-5.80 WBC 5.8 {x10E3/uL} (Normal) Range: 3.4-10.8 0-Glc-554610:20 LIPOPROTEIN, BLD, BY NMR Comments: PATIENT WAS FASTINGPERFORMED BY: BN [facility] Fjslkknhvb2194 [facility] [id number] BY: CB [facility] Jrquye3312 [facility] [id number] (22595) LP-IR Score 66 (Abnormal) Comments: INSULIN RESISTANCE MARKER <--Insulin Sensitive Insulin Resistant--> Percentile in Reference PopulationInsulin Resistance ScoreLP-IR Score Low 25th 50th 75th High <27 27 45 63 >63LP-IR Score is inaccurate if patient is non-fasting. .The LP-IR score is a laboratory developed i [facility] that has beenassociated with insulin resistance and [...] 1600 - 2000 Very High > 2000 29-Wcn-451856:40 HgA1C , Office (61728) HgA1C , Office 6.6 % (Normal) Range: 4.6 - 7.1 19-Kuo-183105:40 Blood Glucose , Office (13263) Blood Glucose , Office 75 (Normal) 88-Odh-902469:20 COLON BIOPSY (CHOOSE See Note (Normal) Comments: [facility] Gl[address]omnm[address] [place], [address] SITE) Comments: Patient: YOHANNES CADET : 1945 (72/M) Acct Num: [id number] Phys: Mg Norman Unit Num: [id number] Loc: LABSPEC Specimen: [id number] Received: 09/20/17 - 5775 Spec Type: C OLON BX TISSUES TISSUES: Rectum, NOS GROSS DESCRIPTION Received in fixative is one container labeled with the patient's name and designated rectal polyp. The specimen predominantly consists of fecal material mixed with possible soares soft tissue, measuring in aggregate 2.5 x 0.6 x0.1 cm. The specimen is totally submitted in one cassette. SJ:scott 09/23/17 TC: cannot code CPT: 54571 HEADER OPERATION: Colonoscopy with polypectomy PRE-OP DIAGNOSIS: Rectal bleeding TISSUE SUBMITTED: Rectal polyp MICROSCOPIC DESCRIPTION Slides are reviewed. MICROSCOPIC DIAGNOSIS Rectal polyp, polypectomy: Fragments of fecal material. Colonic mucosal tissue is not identified. SJ:scott 09/24/18 Signed Magdy Yaniv 09/24/17 <signature on file> 74-Eok-222660:08 Microscopic Examination Comments: PATIENT WAS FASTINGPERFORMED BY: TelASIC Communicationsin [place] [id number] Bacteria None seen (Normal) Mucus Threads Present (Normal) Epithelial Cells (non renal) None seen {/hpf} (Normal) Range: 0 - 10 RBC None seen {/hpf} (Normal) Range: 0 - 2 WBC 0-5 {/hpf} (Normal) Range: 0 - 5 94-Tdl-700613:08 T4, FREE (THYROXINE) (13656) Comments: PATIENT WAS FASTINGPERFORMED BY: Citrus Lanein [place] [id number] T4,Free(Direct) 1.27 ng/dL (Normal) Range: 0.82-1.77 13-Bao-935467:08 T3, FREE (TRIDOTHYRONINE) (19507) Comments: PATIENT WAS FASTINGPERFORMED BY: [address] Lanein [place] [id number] Triiodothyronine,Free,Serum 2.7 pg/mL (Normal) Range: 2.0-4.4 98-Opd-145123:08 CALCIFIDIOL (75196) VIT D 25 Comments: PATIENT WAS FASTINGPERFORMED BY: [employer]63dscoutox IBN Mediablin [place] [id number] Vitamin D, 25-Hydroxy 57.4 ng/mL (Normal) Range: 30.0-100.0 Comments: Vitamin D deficiency has been defined by the [place] of[facility]icine and an Endocrine Society practice guideline as alevel of serum 25-OH vitamin D less than 20 ng/mL (1,2).The Endocrine Society went on to further define vitamin Dinsufficiency as a level between 21 and 29 ng/mL (2).1. IOM ([place] [facility]). 2010. Dietary reference intakes for calcium and D. [place]: The National Academies Press.2. Charles MF, Raissa OCONNELL, Nirmala ALBERT, et al. Evaluation, treatment, and prevention of vitamin D deficiency: an Endocrine Society clinical practice guideline. JCEM. 2010; 96(7):1911-30. 55-Fda-511372:08 TSH (26389) Comments: PATIENT WAS FASTINGPERFORMED BY: TelAS[employer] CommunicationsFirstHealth [id number] TSH 3.370 {uIU/mL} (Normal) Range: 0.450-4.500 06-Ldw-998273:08 URINALYSIS, W/ MICRO (52201) Comments: PATIENT WAS FASTINGPERFORMED BY: [facility] [facility]70 [facility].comFirstHealth [id number] Microscopic Examination See below: (Normal) Comments: Microscopic was indicated and was performed. Microscopic Examination MICRON (Normal) Comments: Microscopic follows if indicated. Nitrite, Urine Negative (Normal) Urobilinogen,Semi-Qn 0.2 mg/dL (Normal) Range: 0.2-1.0 Bilirubin Negative (Normal) Occult Blood Negative (Normal) Ketones Negative (Normal) Glucose Negative (Normal) Protein Negative (Normal) WBC Esterase Negative (Normal) Appearance Clear (Normal) Urine-Color Yellow (Normal) pH 5.0 (Normal) Range: 5.0-7.5 Specific [place] 1.026 (Normal) Range: 1.005-1.030 01-Avl-159397:08 MICROALBUMIN: CREATININE RATIO Comments: PATIENT WAS FASTINGPERFORMED BY: [employer] [facility]70 [facility] [id number] (12343) AND (63625) Alb/Creat Ratio 1.3 {mg/g_creat} (Normal) Range: 0.0-30.0 Albumin, Urine 3.1 ug/mL (Normal) Creatinine, Urine 237.2 mg/dL (Normal) 20-Bcq-040551:08 METABOLIC PANEL, COMPREHENSIVE Comments: PATIENT WAS FASTINGPERFORMED BY: [employer] Bmryue2232 [facility] [id number] (44240) ALT (SGPT) 17 [iU]/L (Normal) Range: 0-44 [...] 8-27 Glucose 142 mg/dL (Abnormal) Range: 65-99 80-Ska-074481:08 CBC W/AUTO DIFF WBC (51355) Comments: PATIENT WAS FASTINGPERFORMED BY: [employer], IncJersey Shore University Medical CenterRslinl8209 [facility] [id number] Immature Grans (Abs) 0.0 {x10E3/uL} (Normal) Range: [...] 4.14-5.80 WBC 5.5 {x10E3/uL} (Normal) Range: 3.4-10.8 07-Zed-118754:08 LIPID PANEL (92895) Comments: PATIENT WAS FASTINGPERFORMED BY: [facility]6370 [facility] [id number] LDL/HDL Ratio 1.2 {ratio} (Normal) Range: 0.0-3.6 Comments: LDL/HDL Ratio Men Women 1/2 Avg.Risk 1.0 1.5 Av g.Risk 3.6 3.2 2X Avg.Risk 6.2 5.0 3X Avg.Risk 8.0 6.1 LDL Cholesterol Calc 51 mg/dL (Normal) Range: 0-99 VLDL Cholesterol Ezequiel 18 mg/dL (Normal) Range: 5-40 HDL Cholesterol 43 mg/dL (Normal) Triglycerides 90 mg/dL (Normal) Range: 0-149 Cholesterol, Total 112 mg/dL (Normal) Range: 100-199 8-Zbv-317232:08 HgA1C , Office (82490) HgA1C , Office 6.9 % (Normal) Range: 4.6 - 7.1 6-Elj-096540:08 Blood Glucose , Office (05934) Blood Glucose , Office 123 (Normal) 7-Pdh-226190:23 Blood Glucose , Office (17051) Blood Glucose , Office 69 (Normal) :23 HgA1C , Office (49606) HgA1C , Office 7.1 % (Normal) Range: 4.6 - 7.1 :23 Blood Glucose , Office (61958) Blood Glucose , Office 84 (Normal) 06-Ehs-756215:06 Microscopic Examination Comments: PATIENT WAS FASTINGPERFORMED BY: [employer], IncLos Alamos Medical CenterIpyszf2824 [facility] [id number] Bacteria Few (Normal) Mucus Threads Present (Normal) Epithelial Cells (non renal) None seen {/hpf} (Normal) Range: 0 - 10 RBC 0-2 {/hpf} (Normal) Range: 0 - 2 WBC 0-5 {/hpf} (Normal) Range: 0 - 5 3-Yes-757444:25 Methymalonic Acid, Serum Comments: PATIENT NOT FASTINGPERFORMED BY: [employer], IncLos Alamos Medical CenterMszquv3316 [facility] [id number] BY: [employer] [id number] (08719) Methylmalonic Acid, Serum 586 nmol/L (Abnormal) Range: 0-378 1-Bzd-321123:25 METABOLIC PANEL, Comments: PATIENT NOT FASTINGPERFORMED BY: [employer], IncJersey Shore University Medical CenterMngcqz2317 [facility] [id number] BY: [employer] [id number] Inf ormation: [id number], 759970 COMPREHENSIVE (88686) ALT (SGPT) 11 [iU]/L (Normal) Range: 0-44 [...] Glucose, Serum 153 mg/dL (Abnormal) Range: 65-99 9-Gwd-986389:25 CBC (AUTO) (92459) Comments: PATIENT NOT FASTINGPERFORMED BY: CB [facility] Peqnnm6497 [facility] [id number] BY: BN [facility] [address] [id number] Platelets 213 {x10E3/uL} (Normal) Range: 150-379 RDW 14.0 % (Normal) Range: 12.3-15.4 MCHC 33.2 g/dL (Normal) Range: 31.5-35.7 MCH 27.5 pg (Normal) Range: 26.6-33.0 MCV 83 fL (Normal) Range: 79-97 Hematocrit 38.2 % (Normal) Range: 37.5-51.0 Hemoglobin 12.7 g/dL (Normal) Range: 12.6-17.7 RBC 4.62 {x10E6/uL} (Normal) Range: 4.14-5.80 WBC 4.6 {x10E3/uL} (Normal) Range: 3.4-10.8 7-Icj-461380:25 TSH (92165) Comments: PATIENT NOT FASTINGPERFORMED BY: CB [facility] Oqqfvg0021 Rosado RoadDublin [place] [id number] BY: [address] [id number] TSH 3.040 {uIU/mL} (Normal) Range: 0.450-4.500 0-Lqs-625986:25 VITAMIN B-12 (CYANOCOBALAMIN) Comments: PATIENT NOT FASTINGPERFORMED BY: CB [facility] Rdyeuh6219 Rosado RoadDublin [place] [id number] BY: [address] [id number] (08281) Vitamin B12 227 pg/mL (Normal) Range: 211-946 2-Gwk-962432:25 PSA (PROSTATE SPECIFIC Comments: PATIENT NOT FASTINGPERFORMED BY: CB [facility] Ldgnbj4465 Rosado RoadDublin [place] [id number] BY: [address] [id number] ANTIGEN) (V76.44) Prostate Specific Ag, 2.0 ng/mL (Normal) Range: 0.0-4.0 Serum Comments: Dee ECLIA methodology. .According to the [place] [employer], Serum PSA shoulddecrease and remain at undetectable levels after radicalprostatectomy. The AUA defines biochemical recurrence as an initialPSA value 0.2 ng/mL or greater followed by a subsequent confirmatoryPSA value 0.2 ng/mL or greater.Values obtained with d ifferent assay methods or kits cannot be usedinterchangeably. Results cannot be interpreted as absolute evidenceof the presence or absence of malignant disease. 92-Wgl-697599:06 CALCIFIDIOL (86232) VIT D 25 Comments: PATIENT WAS FASTINGPERFORMED BY: CB [facility] Jcotfd0838 [address] RoadDublin [place] [id number] Vitamin D, 25-Hydroxy 42.4 ng/mL (Normal) Range: 30.0-100.0 Comments: Vitamin D deficiency has been defined by the [place] and an Endocrine Society practice guideline as alevel of serum 25-OH vitamin D less than 20 ng/mL (1,2).The Endocrine Society went on to further define vitamin Dinsufficiency as a level between 21 and 29 ng/mL (2).1. IOM ([place]). 2010. Dietary reference intakes for calcium and D. [place]: The National Academies Press.2. Charles MF, Raissa OCONNELL, Nirmala ALBERT, et al. Evaluation, treatment, and prevention of vitamin D deficiency: an Endocrine Society clinical practice guideline. JCEM. 2010; 96(7):1911-30. :06 TSH (82058) Comments: PATIENT WAS FASTINGPERFORMED BY: Citrus Lanein [place] [id number] TSH 3.460 {uIU/mL} (Normal) Range: 0.450-4.500 :06 URINALYSIS, W/ MICRO (88935) Comments: PATIENT WAS FASTINGPERFORMED BY: TelASIC CommunicationsFirstHealth [id number] Microscopic Examination See below: (Normal) Comments: Microscopic was indicated and was performed. Microscopic Examination MICRON (Normal) Comments: Microscopic follows if indicated. Nitrite, Urine Negative (Normal) Urobilinogen,Semi-Qn 0.2 mg/dL (Normal) Range: 0.2-1.0 Bilirubin Negative (Normal) Occult Blood Negative (Normal) Ketones Negative (Normal) Glucose Negative (Normal) Protein Negative (Normal) WBC Esterase Negative (Normal) Appearance Clear (Normal) Urine-Color Yellow (Normal) pH 5.0 (Normal) Range: 5.0-7.5 Specific [place] 1.020 (Normal) Range: 1.005-1.030 :06 MICROALBUMIN: CREATININE RATIO Comments: PATIENT WAS FASTINGPERFORMED BY: TelASIC Communicationsin [place] [id number] (26679) AND (10864) Microalb/Creat Ratio <2.4 {mg/g_creat} (Normal) Range: 0.0-30.0 Microalbumin, Urine <3.0 ug/mL (Normal) Creatinine, Urine 127.3 mg/dL (Normal) 69-Knx-726449:06 METABOLIC PANEL, COMPREHENSIVE Comments: PATIENT WAS FASTINGPERFORMED BY: [employer] Ajrfqt7786 [facility] [id number] (78888) ALT (SGPT) 15 [iU]/L (Normal) Range: 0-44 [...] Glucose, Serum 136 mg/dL (Abnormal) Range: 65-99 36-Crh-359444:06 LIPID PANEL (73685) Comments: PATIENT WAS FASTINGPERFORMED BY: CarNinja, IncLos Alamos Medical CenterHoxhgy2981 [facility] [id number] LDL/HDL Ratio 1.5 {ratio_units} (Normal) Range: 0.0-3.6 Comments: LDL/HDL Ratio Men Women 1/2 Avg.Risk 1.0 1.5 Av g.Risk 3.6 3.2 2X Avg.Risk 6.2 5.0 3X Avg.Risk 8.0 6.1 LDL Cholesterol Calc 63 mg/dL (Normal) Range: 0-99 VLDL Cholesterol Ezequiel 25 mg/dL (Normal) Range: 5-40 HDL Cholesterol 42 mg/dL (Normal) Triglycerides 126 mg/dL (Normal) Range: 0-149 Cholesterol, Total 130 mg/dL (Normal) Range: 100-199 77-Jwr-800798:06 CBC W/AUTO DIFF WBC (66704) Comments: PATIENT WAS FASTINGPERFORMED BY: LabCoJersey Shore University Medical CenterXarnps7368 [facility] [id number] Immature Grans (Abs) 0.0 {x10E3/uL} (Normal) Range: [...] (Normal) Range: 3.4-10.8 :32 HgA1C , Office (77846) HgA1C , Office 7.3 % (Abnormal) Range: 4.6 - 7.1 :32 Blood Glucose , Office (15419) Blood Glucose , Office 185 (Normal) :33 ALDOSTERONE (73096) Comments: PATIENT NOT FASTINGPERFORMED BY: [employer] [id number] Aldosterone 3.8 ng/dL (Normal) Range: 0.0-30.0 Comments: This test was developed and its performance characteristicsdetermined by [employer]. It has not been cleared or approvedby the Food and Drug Administration. :33 RENIN (97196) Comments: PATIENT NOT FASTINGPERFORMED BY: [employer] [id number] Renin Activity, Plasma 0.402 {ng/mL/hr} Range: 0.167-5.380 (Normal) Comments: This test was developed and its performance characteristicsdetermined by [employer]. It has not been cleared or approvedby the Food and Drug Administration. :31 METANEPHRINES - URINE (18042) Comments: PATIENT NOT FASTINGPERFORMED BY: LabCo[address] [id number] Metanephrine, U,24hr 238 {ug/24_hr} (Normal) Range: 45-290 Comments: (Hypertensive) >17 years 11 months: 35 - 460 Metanephrine, Ur 119 ug/L (Normal) Normetanephr.,U,24h 370 {ug/24_hr} (Normal) Range: 82-500 Comments: (Hypertensive) >17 years 11 months: 110 - 1050 Normetanephrine, Ur 185 ug/L (Normal) :31 CATECHOLAMINES TOTAL, URINE Comments: PATIENT NOT FASTINGPERFORMED BY: [place] 016687 [facility] [id number] Information: START 09/25/2016@WarrenAM (41854) Dopamine, Ur, 24hr 280 {ug/24_hr} (Normal) Range: 0-510 Dopamine, Urine 140 ug/L (Normal) Norepinephrine,U,24h 42 {ug/24_hr} (Normal) Range: 0-135 Norepinephrine, Ur 21 ug/L (Normal) Epinephrine, U, 24hr 4 {ug/24_hr} (Normal) Range: 0-20 Epinephrine, Urine 2 ug/L (Normal) 26-Sep-20161:31 URINE VMA (13571) Comments: PATIENT NOT FASTINGPERFORMED BY: [facility] Cancer CenterCaro Nut[address] [id number] VMA, Urine, 24hr 3.4 {mg/24_hr} (Normal) Range: 0.0-7.5 Comments: This test was developed and its performance characteristicsdetermined by [employer]. It has not been cleared or approvedby the Food and Drug Administration. VMA, Urine 1.7 mg/L (Normal) 15-Cmd-047298:05 Microscopic Examination Comments: PATIENT WAS FASTINGPERFORMED BY: [facility] HospitalCaro NutJersey Shore University Medical CenterMzxigo0290 [facility] [id number] Bacteria None seen (Normal) Mucus Threads Present (Normal) Epithelial Cells (non renal) None seen {/hpf} (Normal) Range: 0 - 10 RBC 0-2 {/hpf} (Normal) Range: 0 - 2 WBC 0-5 {/hpf} (Normal) Range: 0 - 5 11-Uuf-965022:05 LIPID PANEL (62909) Comments: PATIENT WAS FASTINGPERFORMED BY: [facility]6370 [facility] [id number] LDL/HDL Ratio 1.3 {ratio_units} (Normal) Range: 0.0-3.6 [...] (Normal) Range: 100-199 :05 URINALYSIS, W/ MICRO (28247) Comments: PATIENT WAS FASTINGPERFORMED BY: Yuantiku [facility] [id number] Microscopic Examination See below: (Normal) Comments: Microscopic was indicated and was performed. Microscopic Examination MICRON (Normal) Comments: Microscopic follows if indicated. Nitrite, Urine Negative (Normal) Urobilinogen,Semi-Qn 0.2 mg/dL (Normal) Range: 0.2-1.0 Bilirubin Negative (Normal) Occult Blood Negative (Normal) Ketones Negative (Normal) Glucose Negative (Normal) Protein Negative (Normal) WBC Esterase Negative (Normal) Appearance Clear (Normal) Urine-Color Yellow (Normal) pH 5.5 (Normal) Range: 5.0-7.5 Specific [place] 1.024 (Normal) Range: 1.005-1.030 96-Tbw-604001:05 MICROALBUMIN: CREATININE RATIO Comments: PATIENT WAS FASTINGPERFORMED BY: [employer] [address] [facility] [id number] (68234) AND (94445) Microalb/Creat Ratio <1.7 {mg/g_creat} (Normal) Range: 0.0-30.0 Microalbumin, Urine <3.0 ug/mL (Normal) Creatinine, Urine 171.8 mg/dL (Normal) :05 METABOLIC PANEL, COMPREHENSIVE Comments: PATIENT WAS FASTINGPERFORMED BY: [employer] [address] [facility] [id number] (66434) ALT (SGPT) 15 [iU]/L (Normal) Range: 0-44 [...] Glucose, Serum 117 mg/dL (Abnormal) Range: 65-99 59-Nhq-436660:05 CBC W/AUTO DIFF WBC (86905) Comments: PATIENT WAS FASTINGPERFORMED BY: LabCoJersey Shore University Medical CenterKzuerh0273 [facility] [id number] Immature Grans (Abs) 0.0 {x10E3/uL} (Normal) Range: [...] 4.9 {x10E3/uL} (Normal) Range: 3.4-10.8 :05 TSH (15179) Comments: PATIENT WAS FASTINGPERFORMED BY: [employer] Mr. Number [facility] [id number] TSH 3.460 {uIU/mL} (Normal) Range: 0.450-4.500 :05 T4, FREE (THYROXINE) (19014) Comments: PATIENT WAS FASTINGPERFORMED BY: [employer] Ryayrm5055 [facility] [place] [id number] T4,Free(Direct) 1.34 ng/dL (Normal) Range: 0.82-1.77 :05 T3, FREE (TRIDOTHYRONINE) (26807) Comments: PATIENT WAS FASTINGPERFORMED BY: [employer] Skbyqg2717 [facility] [id number] Triiodothyronine,Free,Serum 3.0 pg/mL (Normal) Range: 2.0-4.4 :05 CALCIFIDIOL (01350) VIT D 25 Comments: PATIENT WAS FASTINGPERFORMED BY: [employer] Xozsyg6154 [facility] [id number] Vitamin D, 25-Hydroxy 46.6 ng/mL (Normal) Range: 30.0-100.0 Comments: Vitamin D deficiency has been defined by the [place] and an Endocrine Society practice guideline as alevel of serum 25-OH vitamin D less than 20 ng/mL (1,2).The Endocrine Society went on to further define vitamin Dinsufficiency as a level between 21 and 29 ng/mL (2).1. IOM ([place]). 2010. Dietary reference intakes for calcium and D. [place]: The National Academies Press.2. Charles MF, Raissa OCONNELL, Nirmala ALBERT, et al. Evaluation, treatment, and prevention of vitamin D deficiency: an Endocrine Society clinical practice guideline. JCEM. 2010; 96(7):1911-30. :42 HgA1C , Office (32795) HgA1C , Office 6.6 % (Normal) Range: 4.6 - 7.1 :42 Blood Glucose , Office (49176) Blood Glucose , Office 117 (Normal) :59 HgA1C , Office (12324) HgA1C , Office 6.8 % (Normal) Range: 4.6 - 7.1 :59 Blood Glucose , Office (04013) Blood Glucose , Office 237 (Normal) :52 Rapid Flu (15744 x 2) Influenza A Ag neg (Normal) :19 HgA1C , Office (23295) HgA1C , Office 6.6 % (Normal) Range: 4.6 - 7.1 :19 Blood Glucose , Office (72849) Blood Glucose , Office 171 (Normal) :43 Microscopic Examination Comments: PATIENT WAS FASTINGPERFORMED BY: LabCoJersey Shore University Medical CenterUucaom5679 [facility] [id number] Bacteria Few (Normal) Mucus Threads Present (Normal) Epithelial Cells (non renal) 0-10 {/hpf} (Normal) Range: 0 - 10 RBC 0-2 {/hpf} (Normal) Range: 0 - 2 WBC 0-5 {/hpf} (Normal) Range: 0 - 5 :53 Serum Creatinine AND GFR Comments: [facility] Zbglnveiqt[address] [place], [place], [id number] EST GFR - AA 83 mL/min (Normal) Comments: GFR Calc EST GFR 69 mL/min (Normal) Comments: Non- GFR Calc CREAT,SERUM 1.12 mg/dL (Normal) Range: 0.70-1.30 Comments: The validity of the calculated GFR AND GFRAA in patients over70 years has not been determined. Clinical correlation isessential. :43 CALCIFIDIOL (08606) VIT D 25 Comments: PATIENT WAS FASTINGPERFORMED BY: [facility]70 [facility] [id number] Vitamin D, 25-Hydroxy 55.4 ng/mL (Normal) Range: 30.0-100.0 Comments: Vitamin D deficiency has been defined by the [place] of[facility] and an Endocrine Society practice guideline as alevel of serum 25-OH vitamin D less than 20 ng/mL (1,2).The Endocrine Society went on to further define vitamin Dinsufficiency as a level between 21 and 29 ng/mL (2).1. IOM ([place]). 2010. Dietary reference intakes for calcium and D. [place]: The National Academies Press.2. Charles MF, Raissa [place], Nirmala ALBERT, et al. Evaluation, treatment, and prevention of vitamin D deficiency: an Endocrine Society clinical practice guideline. JCEM. 2010; 96(7):1911-30. :43 URINALYSIS, W/ MICRO (28499) Comments: PATIENT WAS FASTINGPERFORMED BY: CaseReader6370 [facility] [id number] Microscopic Examination See below: (Normal) Comments: Microscopic was indicated and was performed. Microscopic Examination MICRON (Normal) Comments: Microscopic follows if indicated. Nitrite, Urine Negative (Normal) Urobilinogen,Semi-Qn 0.2 mg/dL (Normal) Range: 0.2-1.0 Bilirubin Negative (Normal) Occult Blood Negative (Normal) Ketones Negative (Normal) Glucose Negative (Normal) Protein Negative (Normal) WBC Esterase Negative (Normal) Appearance Clear (Normal) Urine-Color Yellow (Normal) pH 5.5 (Normal) Range: 5.0-7.5 Specific [place] 1.022 (Normal) Range: 1.005-1.030 8-Sxu-320352:43 MICROALBUMIN: CREATININE RATIO Comments: PATIENT WAS FASTINGPERFORMED BY: [facility] TherapeuticsMunson Healthcare [facility]6370 [facility] [id number] (02926) AND (55906) Microalb/Creat Ratio <2.4 {mg/g_creat} (Normal) Range: 0.0-30.0 Microalbumin, Urine <3.0 ug/mL (Normal) Creatinine, Urine 122.5 mg/dL (Normal) 9-Bsp-381278:43 METABOLIC PANEL, COMPREHENSIVE Comments: PATIENT WAS FASTINGPERFORMED BY: [facility] Blood TherapeuticsSaint John'S HospitalOlvkbe2358 [facility] [id number] (90705) ALT (SGPT) 12 [iU]/L (Normal) Range: 0-44 [...] Glucose, Serum 120 mg/dL (Abnormal) Range: 65-99 0-Sxz-485764:43 TSH (79816) Comments: PATIENT WAS FASTINGPERFORMED BY: [facility]6370 [facility] [id number] TSH 4.010 {uIU/mL} (Normal) Range: 0.450-4.500 :43 LIPID PANEL (11900) Comments: PATIENT WAS FASTINGPERFORMED BY: [facility]6[address] [facility] [id number] LDL/HDL Ratio 1.2 {ratio_units} (Normal) Range: 0.0-3.6 [...] Range: 100-199 :43 CBC W/AUTO DIFF WBC (54543) Comments: PATIENT WAS FASTINGPERFORMED BY: [facility] [facility] [id number] Immature Grans (Abs) 0.0 {x10E3/uL} (Normal) Range: [...] (Normal) Range: 3.4-10.8 :27 HgA1C , Office (41837) HgA1C , Office 6.6 % (Normal) Range: 4.6 - 7.1 :27 Blood Glucose , Office (35898) Blood Glucose , Office 168 (Normal) 33-Mxn-278621:08 Microscopic Examination Comments: PATIENT WAS FASTINGPERFORMED BY: [employer]Reader6370 ITIS HoldingsCarolinas ContinueC[facility] [id number] Bacteria None seen (Normal) Mucus Threads Present (Normal) Epithelial Cells (non renal) None seen {/hpf} (Normal) Range: 0 - 10 RBC None seen {/hpf} (Normal) Range: 0 - 2 WBC 0-5 {/hpf} (Normal) Range: 0 - 5 :08 CALCIFIDIOL (85767) VIT D 25 Comments: PATIENT WAS FASTINGPERFORMED BY: CaseReader6370 IT[employer] HoldingsCarolinas ContinueC[facility] [id number] Vitamin D, 25-Hydroxy 62.4 ng/mL (Normal) Range: 30.0-100.0 Comments: Vitamin D deficiency has been defined by the [place] and an Endocrine Society practice guideline as alevel of serum 25-OH vitamin D less than 20 ng/mL (1,2).The Endocrine Society went on to further define vitamin Dinsufficiency as a level between 21 and 29 ng/mL (2).1. IOM ([place]). 2010. Dietary reference intakes for calcium and D. [place]: The National Academies Press.2. Charles MF, Raissa OCONNELL, Nirmala ALBERT, et al. Evaluation, treatment, and prevention of vitamin D deficiency: an Endocrine Society clinical practice guideline. JCEM. 2010; 96(7):1911-30. 31-Klm-426993:08 URINALYSIS, W/ MICRO (48753) Comments: PATIENT WAS FASTINGPERFORMED BY: TelASIC CommunicationsFirstHealth [id number] Microscopic Examination See below: (Normal) Comments: Microscopic was indicated and was performed. Microscopic Examination MICRON (Normal) Comments: Microscopic follows if indicated. Nitrite, Urine Negative (Normal) Urobilinogen,Semi-Qn 0.2 mg/dL (Normal) Range: 0.2-1.0 Bilirubin Negative (Normal) Occult Blood Negative (Normal) Ketones Negative (Normal) Glucose Negative (Normal) Protein Negative (Normal) WBC Esterase Negative (Normal) Appearance Clear (Normal) Urine-Color Yellow (Normal) pH 6.0 (Normal) Range: 5.0-7.5 Specific [place] 1.022 (Normal) Range: 1.005-1.030 84-Ixj-997291:08 MICROALBUMIN: CREATININE RATIO Comments: PATIENT WAS FASTINGPERFORMED BY: [facility] [facility] [id number] (29573) AND (38483) Microalb/Creat Ratio <1.8 {mg/g_creat} (Normal) Range: 0.0-30.0 Microalbumin, Urine <3.0 ug/mL (Normal) Creatinine, Urine 164.4 mg/dL (Normal) :08 METABOLIC PANEL, COMPREHENSIVE Comments: PATIENT WAS FASTINGPERFORMED BY: Oink Mr. Number [address] [facility] [id number] (75355) ALT (SGPT) 16 [iU]/L (Normal) Range: 0-44 [...] Glucose, Serum 108 mg/dL (Abnormal) Range: 65-99 01-Cgv-908696:08 LIPID PANEL (29523) Comments: PATIENT WAS FASTINGPERFORMED BY: LabCoJersey Shore University Medical CenterEeelhn9359 [facility] [id number] LDL/HDL Ratio 1.4 {ratio_units} (Normal) Range: 0.0-3.6 [...] WBC Comments: PATIENT WAS FASTINGPERFORMED BY: GUICHO [facility]6370 [facility] [id number] Information: [id number] (92562) Immature Grans (Abs) 0.0 {x10E3/uL} (Normal) Range: [...] 5.5 {x10E3/uL} (Normal) Range: 3.4-10.8 :08 TSH (48806) Comments: PATIENT WAS FASTINGPERFORMED BY: [facility] [facility] [id number] TSH 4.000 {uIU/mL} (Normal) Range: 0.450-4.500 :03 HgA1C , Office (39680) HgA1C , Office 6.2 % (Normal) Range: 4.6 - 7.1 :03 Blood Glucose , Office (49362) Blood Glucose , Office 102 (Normal) :49 Throat Culture (63263) Comments: PATIENT NOT FASTINGPERFORMED BY: [employer] Mr. Number [facility] [id number] Information: SRC:THRT [id number] Result 1 RRF (Normal) Comments: Routine respiratory alfredo Upper Respiratory Culture Final report (Normal) :02 Rapid Strep Test, Office (40839) Rapid Strep Test, Office Negative (Normal) :48 Influenza A&B Viral Comments: PATIENT NOT FASTINGPERFORMED BY: Fluidnet [facility] [id number] Information: SRC:NOS [id number] Culture (92769) Viral Culture,Rapid,Influenza FLUABN (Normal) Comments: Negative:No Influenza A or B detected. :26 Rapid Flu (92124 x 2) Influenza A Ag negative (Normal) :30 HgA1C , Office (20828) HgA1C , Office 7.3 % (Abnormal) Range: 4.6 - 7.1 :30 Blood Glucose , Office (35512) Blood Glucose , Office 191 (Normal) :52 Microscopic Examination Comments: PATIENT WAS FASTINGPERFORMED BY: Oink Ujgstc8817 [facility] [id number] Bacteria None seen (Normal) Mucus Threads Present (Normal) Epithelial Cells (non renal) 0-10 {/hpf} (Normal) Range: 0 - 10 RBC 0-2 {/hpf} (Normal) Range: 0 - 2 WBC 0-5 {/hpf} (Normal) Range: 0 - 5 :52 CALCIFIDIOL (75156) VIT D 25 Comments: PATIENT WAS FASTINGPERFORMED BY: Oink Mr. Number [facility] [id number] Vitamin D, 25-Hydroxy 44.9 ng/mL (Normal) Range: 30.0-100.0 Comments: Vitamin D deficiency has been defined by the [place] and an Endocrine Society practice guideline as alevel of serum 25-OH vitamin D less than 20 ng/mL (1,2).The Endocrine Society went on to further define vitamin Dinsufficiency as a level between 21 and 29 ng/mL (2).1. IOM ([place]). 2010. Dietary reference intakes for calcium and D. [place]: The National AcademUR Mobile Press.2. Charles MF, Raissa NC, Nirmala ALBERT, et al. Evaluation, treatment, and prevention of vitamin D deficiency: an Endocrine Society clinical practice guideline. JCEM. 2010; 96(7):1911-30. :52 LIPID PANEL (92029) Comments: PATIENT WAS FASTINGPERFORMED BY: Yuantiku [facility] HospitalTalentaFirstHealth [id number] LDL/HDL Ratio 2.4 {ratio_units} (Normal) Range: 0.0-3.6 [...] 196 mg/dL (Normal) Range: 100-199 :52 TSH (88243) Comments: PATIENT WAS FASTINGPERFORMED BY: Yuantiku [facility] HospitalTalentaFirstHealth [id number] TSH 4.480 {uIU/mL} (Normal) Range: 0.450-4.500 :52 URINALYSIS, W/ MICRO (85547) Comments: PATIENT WAS FASTINGPERFORMED BY: Yuantiku RoadDublin [place] [id number] Microscopic Examination See below: (Normal) Comments: Microscopic was indicated and was performed. Microscopic Examination MICRON (Normal) Comments: Microscopic follows if indicated. Nitrite, Urine Negative (Normal) Urobilinogen,Semi-Qn 0.2 mg/dL (Normal) Range: 0.2-1.0 Bilirubin Negative (Normal) Occult Blood Negative (Normal) Ketones Negative (Normal) Glucose Negative (Normal) Protein Negative (Normal) WBC Esterase Negative (Normal) Appearance Clear (Normal) Urine-Color Yellow (Normal) pH 6.0 (Normal) Range: 5.0-7.5 Specific [place] 1.024 (Normal) Range: 1.005-1.030 :52 MICROALBUMIN: CREATININE RATIO Comments: PATIENT WAS FASTINGPERFORMED BY: [facility] [facility] [id number] (39173) AND (47728) Microalb/Creat Ratio <2.2 {mg/g_creat} (Normal) Range: 0.0-30.0 Microalbumin, Urine <3.0 ug/mL (Normal) Range: 0.0-17.0 Creatinine, Urine 135.9 mg/dL (Normal) Range: 22.0-328.0 :52 METABOLIC PANEL, COMPREHENSIVE Comments: PATIENT WAS FASTINGPERFORMED BY: [place] [address] [facility] [id number]; will review at 02/21 appt (35596) ALT (SGPT) 13 [iU]/L (Normal) Range: 0-44 [...] Glucose, Serum 130 mg/dL (Abnormal) Range: 65-99 20-Suk-90368:52 CBC W/AUTO DIFF WBC Comments: PATIENT WAS FASTINGPERFORMED BY: [facility]Mun[facility]6[address] [facility] [id number] Information: [id number] (07822) Immature Grans (Abs) 0.0 {x10E3/uL} (Normal) Range: [...] (Normal) Range: 3.4-10.8 :56 HgA1C , Office (72499) HgA1C , Office 5.9 % (Normal) Range: 4.6 - 7.1 :56 Blood Glucose , Office (19490) Blood Glucose , Office 103 (Normal) :35 HgA1C , Office (72753) HgA1C , Office 6.0 % (Normal) Range: 4.6 - 7.1 :34 Blood Glucose , Office (26885) Blood Glucose , Office 135 (Normal) :45 Potassium Comments: Test performed at:[facility] Odkaafsqbt[address] [place] [address] [id number] K 4.3 mmol/L (Normal) Range: 3.5-5.1 :54 Comp. Metabolic Panel (14) Comments: PATIENT WAS FASTINGPERFORMED BY: LabCoJersey Shore University Medical CenterXradgk0066 [facility] [id number] Information: [id number] ALT (SGPT) 11 [iU]/L (Normal) Range: 0-44 [...] Glucose, Serum 117 mg/dL (Abnormal) Range: 65-99 09-Gzc-26564:54 Lipid Panel With LDL/HDL Comments: PATIENT WAS FASTINGPERFORMED BY: TelASIC CommunicationsFirstHealth [id number] Ratio LDL/HDL Ratio 2.1 {ratio_units} Range: 0.0-3.6 [...] 2.860 {uIU/mL} Comments: PATIENT WAS FASTINGPERFORMED BY: CaseReader6370 [facility].comFirstHealth [id number] 9:54 (Normal) Range: 0.450-4.500 02-Aug-2014 Vitamin D, 25-Hydroxy 61.9 ng/mL (Normal) Comments: PATIENT WAS FASTINGPERFORMED BY: Oink Smvnog6308 [facility] [id number] 9:54 Range: 30.0-100.0 Comments: Vitamin D deficiency has been defined by the [place] and an Endocrine Society practice guideline as alevel of serum 25-OH vitamin D less than 20 ng/mL (1,2).The Endocrine Society went on to further define vitamin Dinsufficiency as a level between 21 and 29 ng/mL (2).1. IOM ([place] [employer]). 2010. Dietary reference intakes for calcium and D. [place]: The National AcademUR Mobile Press.2. Charles MF, Raissa OCONNELL, Nirmala ALBERT, et al. Evaluation, treatment, and prevention of vitamin D deficiency: an Endocrine Society clinical practice guideline. JCEM. 2010; 96(7):1911-30. :13 HgA1C , Office (46346) HgA1C , Office 6.8 % (Normal) Range: 4.6 - 7.1 :13 Blood Glucose , Office (54219) Blood Glucose , Office 218 (Normal) 04-Cud-482324:24 Microscopic Examination Comments: PATIENT WAS FASTINGPERFORMED BY: [employer] Zochaf9321 [facility] [id number] Bacteria None seen (Normal) Mucus Threads Present (Normal) Epithelial Cells (non renal) None seen {/hpf} (Normal) Range: 0 - 10 RBC 0-2 {/hpf} (Normal) Range: 0 - 2 WBC 0-5 {/hpf} (Normal) Range: 0 - 5 49-Xen-093292:24 Vitamin D Hydroxy (69738) Comments: PATIENT WAS FASTINGPERFORMED BY: Oink Oaqwjc8793 [facility] [id number] Vitamin D, 25-Hydroxy 35.7 ng/mL (Normal) Range: 30.0-100.0 Comments: Vitamin D deficiency has been defined by the [place] [facility] and an Endocrine Society practice guideline as alevel of serum 25-OH vitamin D less than 20 ng/mL (1,2).The Endocrine Society went on to further define vitamin Dinsufficiency as a level between 21 and 29 ng/mL (2).1. IOM ([place] [employer]). 2010. Dietary reference intakes for calcium and D. [place]: The National Academies Press.2. Charles MF, Raissa OCONNELL, Nirmala ALBERT, et al. Evaluation, treatment, and prevention of vitamin D deficiency: an Endocrine Society clinical practice guideline. JCEM. 2010; 96(7):1911-30. 92-Xwk-462213:24 URINALYSIS, W/ MICRO (08367) Comments: PATIENT WAS FASTINGPERFORMED BY: [employer]70 ITIS HoldingsCarolinas Continue[facility] [id number] Microscopic Examination See below: (Normal) Comments: Microscopic was indicated and was performed. Microscopic Examination MICRON (Normal) Comments: Microscopic follows if indicated. Nitrite, Urine Negative (Normal) Urobilinogen,Semi-Qn 0.2 mg/dL (Normal) Range: 0.0-1.9 Bilirubin Negative (Normal) Occult Blood Negative (Normal) Ketones Negative (Normal) Glucose Negative (Normal) Protein Negative (Normal) WBC Esterase Negative (Normal) Appearance Clear (Normal) Urine-Color Yellow (Normal) pH 6.0 (Normal) Range: 5.0-7.5 Specific [place] 1.025 (Normal) Range: 1.005-1.030 35-Vkt-427349:24 TSH (28419) Comments: PATIENT WAS FASTINGPERFORMED BY: CaseReader6370 Rosado [facility] [id number] TSH 2.740 {uIU/mL} (Normal) Range: 0.450-4.500 47-Ors-687937:24 MICROALBUMIN: CREATININE RATIO Comments: PATIENT WAS FASTINGPERFORMED BY: Oink Xrioww6712 [facility] [id number] (91990) AND (12634) Microalb/Creat Ratio <1.5 {mg/g_creat} (Normal) Range: 0.0-30.0 Microalbumin, Urine <3.0 ug/mL (Normal) Range: 0.0-17.0 Creatinine, Urine 205.5 mg/dL (Normal) Range: 22.0-328.0 36-Fnz-851008:24 METABOLIC PANEL, COMPREHENSIVE Comments: PATIENT WAS FASTINGPERFORMED BY: [employer] Tsvqjy0938 [facility] [id number] (12612) ALT (SGPT) 13 [iU]/L (Normal) Range: 0-44 [...] Glucose, Serum 138 mg/dL (Abnormal) Range: 65-99 80-Pgb-345632:24 LIPID PANEL (84097) Comments: PATIENT WAS FASTINGPERFORMED BY: [employer], IncJersey Shore University Medical CenterYmynvt6539 [facility] [id number] LDL/HDL Ratio 3.2 {ratio_units} (Normal) Range: 0.0-3.6 [...] Cholesterol, Total 221 mg/dL (Abnormal) Range: 100-199 95-Fdc-541031:24 CBC W/AUTO DIFF WBC Comments: PATIENT WAS FASTINGPERFORMED BY: LabCoJersey Shore University Medical CenterNgezuu7422 [facility] [id number] Information: [id number] (90453) Immature Grans (Abs) 0.0 {x10E3/uL} (Normal) Range: [...] 3.4-10.8 :00 Fecal Occult Blood , Office (09281) Fecal Occult Blood , Office (Inhouse) negative (Normal) :57 PSA (PROSTATE SPECIFIC Comments: PATIENT NOT FASTINGPERFORMED BY: [employer] Gfcmcl2396 [facility] [id number] Information: [id number] ANTIGEN) (V76.44) Prostate Specific Ag, 1.5 ng/mL (Normal) Range: 0.0-4.0 Serum Comments: Monumental GamesIA methodology. .According to the [place] [employer] Association, Serum PSA shoulddecrease and remain [...] of malignant disease. :17 HgA1C , Office (51661) HgA1C , Office 7.0 % (Normal) Range: 4.6 - 7.1 45-Jbz-954626:17 Blood Glucose , Office (46692) Blood Glucose , Office 118 (Normal) :50 HgA1C , Office (42006) HgA1C , Office 7.6 % (Abnormal) Range: 4.6 - 7.1 :50 Blood Glucose , Office (43191) Blood Glucose , Office 142 (Normal) 9-Mtj-081741:44 Microscopic Examination Comments: PATIENT WAS FASTINGPERFORMED BY: CarNinja, IncLos Alamos Medical CenterMfqtqp1297 [facility] [id number] Bacteria None seen (Normal) Mucus Threads Present (Normal) Epithelial Cells (non renal) None seen {/hpf} (Normal) Range: 0 - 10 RBC 0-2 {/hpf} (Normal) Range: 0 - 2 WBC 0-5 {/hpf} (Normal) Range: 0 - 5 :32 URINALYSIS, W/ MICRO (73618) Comments: PATIENT WAS FASTINGPERFORMED BY: GUICHO Vobile70 [facility] [id number] Microscopic Examination See below: (Normal) Comments: Microscopic was indicated and was performed. Microscopic Examination MICRON (Normal) Comments: Microscopic follows if indicated. Nitrite, Urine Negative (Normal) Urobilinogen,Semi-Qn 0.2 mg/dL (Normal) Range: 0.0-1.9 Bilirubin Negative (Normal) Ketones Negative (Normal) Occult Blood Negative (Normal) Glucose Trace (Abnormal) Protein Negative (Normal) WBC Esterase Negative (Normal) Appearance Clear (Normal) Urine-Color Yellow (Normal) pH 6.0 (Normal) Range: 5.0-7.5 Specific [place] 1.024 (Normal) Range: 1.005-1.030 :32 MICROALBUMIN: CREATININE RATIO Comments: PATIENT WAS FASTINGPERFORMED BY: Fluidnet [facility] [id number] (47200) AND (21869) Microalb/Creat Ratio 1.3 {mg/g_creat} (Normal) Range: 0.0-30.0 Creatinine, Urine 188.3 mg/dL (Normal) Range: 22.0-328.0 Microalbumin, Urine 2.4 ug/mL (Normal) Range: 0.0-17.0 :32 TSH (80954) Comments: PATIENT WAS FASTINGPERFORMED BY: Oink Rcenvc5069 [facility] [id number] TSH 3.250 {uIU/mL} (Normal) Range: 0.450-4.500 :32 METABOLIC PANEL, COMPREHENSIVE Comments: PATIENT WAS FASTINGPERFORMED BY: Fluidnet [facility] [id number]; will review at 10/08 appt (94123) ALT (SGPT) 22 [iU]/L (Normal) Range: 0-44 [...] Glucose, Serum 152 mg/dL (Abnormal) Range: 65-99 8-Ogt-450776:32 LIPID PANEL (74803) Comments: PATIENT WAS FASTINGPERFORMED BY: [employer] [facility]70 [facility]First[facility] [id number] LDL/HDL Ratio 2.0 {ratio_units} (Normal) Range: 0.0-3.6 LDL Cholesterol Calc 84 mg/dL (Normal) Range: 0-99 HDL Cholesterol 43 mg/dL (Normal) Comments: According to ATP-III Guidelines, HDL-C >59 mg/dL is considered anegative risk factor for CHD. VLDL Cholesterol Ezequiel 24 mg/dL (Normal) Range: 5-40 Triglycerides 121 mg/dL (Normal) Range: 0-149 Cholesterol, Total 151 mg/dL (Normal) Range: 100-199 5-Igr-467369:32 CBC WITH MANUAL DIFF Comments: PATIENT WAS FASTINGPERFORMED BY: [employer] [facility]70 [facility]First[facility] [id number] Information: [id number] (39230) Immature Grans (Abs) 0.0 {x10E3/uL} (Normal) Range: [...] (Normal) Range: 3.4-10.8 :37 HgA1C , Office (25026) HgA1C , Office 7.1 % (Normal) Range: 4.6 - 7.1 :37 Blood Glucose , Office (23346) Blood Glucose , Office 142 (Normal) :39 Microscopic Examination Comments: PATIENT WAS FASTINGPERFORMED BY: [place] 5671670 [facility] [id number] Bacteria None seen (Normal) Mucus Threads Present (Normal) Epithelial Cells (non renal) None seen {/hpf} (Normal) Range: 0 - 10 RBC None seen {/hpf} (Normal) Range: 0 - 3 WBC 0-5 {/hpf} (Normal) Range: 0 - 5 :13 Vitamin D Hydroxy (03564) Comments: PATIENT WAS FASTINGPERFORMED BY: Global Blood TherapeuticsSaint John'S HospitalIcyaia9532 [facility] [id number] Vitamin D, 25-Hydroxy 35.9 ng/mL (Normal) Range: 30.0-100.0 Comments: Vitamin D deficiency has been defined by the [place] [facility] and an Endocrine Society practice guideline as alevel of serum 25-OH vitamin D less than 20 ng/mL (1,2).The Endocrine Society went on to further define vitamin Dinsufficiency as a level between 21 and 29 ng/mL (2).1. IOM ([place] [employer]). 2010. Dietary reference intakes for calcium and D. [place]: The National Academies Press.2. Charles MF, Raissa OCONNELL, Nirmala ALBERT, et al. Evaluation, treatment, and prevention of vitamin D deficiency: an Endocrine Society clinical practice guideline. JCEM. 2010; 96(7):1911-30. :13 TSH (33571) Comments: PATIENT WAS FASTINGPERFORMED BY: LabCo Ewisqs8683 [facility] [id number] TSH 4.190 {uIU/mL} (Normal) Range: 0.450-4.500 :13 URINALYSIS, W/ MICRO (14452) Comments: PATIENT WAS FASTINGPERFORMED BY: LabL[facility] Vnmxgi6466 [facility]in [place] [id number] Microscopic Examination See below: (Normal) Microscopic Examination MICRON (Normal) Comments: Microscopic follows if indicated. Nitrite, Urine Negative (Normal) Urobilinogen,Semi-Qn 0.2 mg/dL (Normal) Range: 0.0-1.9 Bilirubin Negative (Normal) Occult Blood Negative (Normal) Ketones Negative (Normal) Glucose Negative (Normal) Protein Negative (Normal) Appearance Clear (Normal) WBC Esterase Negative (Normal) Urine-Color Yellow (Normal) pH 7.0 (Normal) Range: 5.0-7.5 Specific [place] 1.023 (Normal) Range: 1.005-1.030 :13 MICROALBUMIN: CREATININE RATIO Comments: PATIENT WAS FASTINGPERFORMED BY: Oink Fulvfc0179 [facility] [id number] (45117) AND (67612) Microalb/Creat Ratio 1.4 {mg/g_creat} (Normal) Range: 0.0-30.0 Creatinine, Urine 177.1 mg/dL (Normal) Range: 22.0-328.0 Microalbumin, Urine 2.5 ug/mL (Normal) Range: 0.0-17.0 :13 METABOLIC PANEL, COMPREHENSIVE Comments: PATIENT WAS FASTINGPERFORMED BY: CaseReader6370 [facility] [id number] (40379) ALT (SGPT) 17 [iU]/L (Normal) Range: 0-44 [...] mg/dL (Abnormal) Range: 65-99 :13 LIPID PANEL (92427) Comments: PATIENT WAS FASTINGPERFORMED BY: [facility]70 [facility] [id number] LDL/HDL Ratio 1.8 {ratio_units} (Normal) Range: 0.0-3.6 [...] MANUAL DIFF Comments: PATIENT WAS FASTINGPERFORMED BY: LabSongbird6370 [facility] [id number] Information: [id number] (98453) Immature Grans (Abs) 0.0 {x10E3/uL} (Normal) Range: [...] (Normal) Range: 3.4-10.8 :31 HgA1C , Office (95292) HgA1C , Office 6.7 % (Normal) Range: 4.6 - 7.1 :31 Blood Glucose , Office (17577) Blood Glucose , Office 141 (Normal) :55 HgA1C , Office (06771) HgA1C , Office 6.4 % (Normal) Range: 4.6 - 7.1 :55 Blood Glucose , Office (31662) Blood Glucose , Office 116 (Normal) 07-Rhb-798479:33 Microscopic Examination Comments: PATIENT WAS FASTINGPERFORMED BY: Fluidnet Rosado [facility] [id number] Bacteria None seen (Normal) Mucus Threads Present (Normal) Epithelial Cells (non renal) None seen {/hpf} (Normal) Range: 0 - 10 RBC 0-3 {/hpf} (Normal) Range: 0 - 3 WBC 0-5 {/hpf} (Normal) Range: 0 - 5 67-Tmi-577054:33 PSA (PROSTATE SPECIFIC Comments: PATIENT WAS FASTINGPERFORMED BY: [facility]70 [facility] [id number] ANTIGEN) (V76.44) Prostate Specific Ag, 1.5 ng/mL (Normal) Range: 0.0-4.0 Serum Comments: Dee ECLIA methodology. .According to the [place] [employer] Association, Serum PSA shoulddecrease and remain at undetectable levels after radicalprostatectomy. The AUA defines biochemical recurrence as an initialPSA value 0.2 ng/mL or greater followed by a subsequent confirmatoryPSA value 0.2 ng/mL or greater.Values obtained with d ifferent assay methods or kits cannot be usedinterchangeably. Results cannot be interpreted as absolute evidenceof the presence or absence of malignant disease. 33 TSH (40153) Comments: PATIENT WAS FASTINGPERFORMED BY: TelASIC CommunicationsFirstHealth [id number] TSH 2.770 {uIU/mL} (Normal) Range: 0.450-4.500 URINALYSIS, W/ MICRO (07288) Comments: PATIENT WAS FASTINGPERFORMED BY: TelASIC CommunicationsFirstHealth [id number] Microscopic Examination See below: (Normal) Microscopic Examination MICRON (Normal) Comments: Microscopic follows if indicated. Nitrite, Urine Negative (Normal) Urobilinogen,Semi-Qn 0.2 mg/dL (Normal) Range: 0.0-1.9 Bilirubin Negative (Normal) Occult Blood Negative (Normal) Ketones Negative (Normal) Glucose Negative (Normal) Protein Negative (Normal) WBC Esterase Negative (Normal) Appearance Clear (Normal) Urine-Color Yellow (Normal) pH 6.0 (Normal) Range: 5.0-7.5 Specific [place] 1.026 (Normal) Range: 1.005-1.030 :33 MICROALBUMIN: CREATININE RATIO Comments: PATIENT WAS FASTINGPERFORMED BY: TelASIC CommunicationsFirstHealth [id number] (89865) AND (76512) Microalb/Creat Ratio 1.8 {mg/g_creat} (Normal) Range: 0.0-30.0 Microalbumin, Urine 3.6 ug/mL (Normal) Range: 0.0-17.0 Creatinine, Urine 203.4 mg/dL (Normal) Range: 22.0-328.0 :33 METABOLIC PANEL, COMPREHENSIVE Comments: PATIENT WAS FASTINGPERFORMED BY: [employer] Bdplbb7131 [facility] [id number] (25886) ALT (SGPT) 16 [iU]/L (Normal) Range: 0-44 [...] Glucose, Serum 114 mg/dL (Abnormal) Range: 65-99 67-Ect-695928:33 LIPID PANEL (46207) Comments: PATIENT WAS FASTINGPERFORMED BY: CarNinja, IncJersey Shore University Medical CenterZgligp5029 [facility] [id number] LDL/HDL Ratio 1.3 {ratio_units} (Normal) Range: 0.0-3.6 LDL Cholesterol Calc 63 mg/dL (Normal) Range: 0-99 VLDL Cholesterol Ezequiel 25 mg/dL (Normal) Range: 5-40 HDL Cholesterol 47 mg/dL (Normal) Comments: According to ATP-III Guidelines, HDL-C >59 mg/dL is considered anegative risk factor for CHD. Triglycerides 123 mg/dL (Normal) Range: 0-149 Cholesterol, Total 135 mg/dL (Normal) Range: 100-199 48-Flt-165875:33 CBC WITH MANUAL DIFF Comments: PATIENT WAS FASTINGPERFORMED BY: LabCoJersey Shore University Medical CenterTxelqc0064 [facility] [id number] Information: [id number] (19129) Immature Grans (Abs) 0.0 {x10E3/uL} (Normal) Range: [...] (Normal) Range: 4.0-10.5 :22 HgA1C , Office (66492) HgA1C , Office 6.3 % (Normal) Range: 4.6 - 7.1 :22 Blood Glucose , Office (57506) Blood Glucose , Office 109 (Normal) :49 [...] metanephrines and plasma catecolamines. TESTING PERFORMED AT [facility]. ORIGINAL REPORT ONFILE IN LAB [...] >150 0.39 - 1.31Performed at: - [facility] [address] [id number] Director: Bruno Williamson MD, Phone: [phone] - (Normal) joceline y - 2 0 1 3 9 : 4 9 :49 VMA tVMA24 4.6 {mg/24_hr} (Normal) Range: 0.0-7.5 tVMA 2.2 mg/L (Normal) 46-Fcc-585383:15 BMP CO2 30.0 mmol/L (Normal) Range: 21.0-32.0 [...] 126 mg/dLsuggests DIABETES MELLITUS per A.D.A. criteria. 70-Tdm-978869:15 CBCD ANC 3.6 3/uL (Normal) Range: 2.0-7.7 [...] 4.6-6.2 WBC 6.4 {k/mm3} (Normal) Range: 4.4-11.0 51-Egt-99992:00 BRAIN W/WO CONTRAST Radiology Report See Note [...] Stauffer M.D.August 08, 2012 at 10:05:25 PM [id number] Signed AH/ If you are the referring physician and would like to consult with theradiologist who provided this interpretation, please contact Chad Mast at [phone]. If this radiologist is unavailable,you will be directed to another radiologist to assist. If you are a patient with a question regarding this report, pleasecontactyour referring physician directly . Professional Interpretation Provided By: Lagiar, Phone , These documents contain legally protected [...] on 08/08/122207 Sign by: MIKHAIL STAUFFER MD 65-Sss-090917:32 BRAIN/HEAD WITHOUT CONTRAST Radiology Report See Note [...] Fontenot M.D.August 04, 2012 at 5:16:58 PM [phone] Signed DN/DN If you are the referring physician and would like to consult with theradiologist who pro vided this interpretation, please contact Heather Ng M.D. at [phone]. If this radiologist is unavailable, youwillbe directed to another radiologist to assist. If you are a patient with a quest ion regarding this report, pleasecontactyour referring physician directly. Professional Interpretation Provided By: Lagiar, Phone , These documents contain legally pro [...] 08/04/121718 Sign by: ___ HEATHER FONTENOT MD 28-Bhl-093384:36 CBCD ANC 4.1 3/uL (Normal) Range: 2.0-7.7 [...] Comments: PATIENT NOT FASTINGPERFORMED BY: GUICHO [facility] Luztxb1132 [facility] [id number] Information: [id number] COMPREHENSIVE (37375) ALT (SGPT) 13 [iU]/L (Normal) Range: 0-44 [...] (Normal) Range: 65-99 :01 HgA1C , Office (32443) HgA1C , Office 6.2 % (Normal) Range: 4.6 - 7.1 :01 Blood Glucose , Office (92537) Blood Glucose , Office 89 (Normal) :48 Microscopic Examination Comments: PATIENT WAS FASTINGPERFORMED BY: Global Blood TherapeuticsSaint John'S HospitalWfkrsu2100 [facility] [id number] Bacteria Few (Normal) Mucus Threads Present (Normal) Epithelial Cells (non renal) None seen {/hpf} (Normal) Range: 0 - 10 RBC 0-3 {/hpf} (Normal) Range: 0 - 3 WBC 0-5 {/hpf} (Normal) Range: 0 - 5 :48 TSH (03127) Comments: PATIENT WAS FASTINGPERFORMED BY: CarNinja, IncLos Alamos Medical CenterAorlrs1297 [facility] [id number] TSH 5.340 {uIU/mL} (Abnormal) Range: 0.450-4.500 :48 URINALYSIS, W/ MICRO (54004) Comments: PATIENT WAS FASTINGPERFORMED BY: Global Blood TherapeuticsLakeland Regional Hospital Twsqly3234 [facility] [id number] Microscopic Examination See below: (Normal) Microscopic Examination MICRON (Normal) Comments: Microscopic follows if indicated. Bilirubin Negative (Normal) Nitrite, Urine Negative (Normal) Urobilinogen,Semi-Qn 0.2 mg/dL (Normal) Range: 0.0-1.9 Occult Blood Negative (Normal) Ketones Negative (Normal) Glucose Negative (Normal) Protein Negative (Normal) WBC Esterase Negative (Normal) Appearance Clear (Normal) pH 5.5 (Normal) Range: 5.0-7.5 Urine-Color Yellow (Normal) Specific [place] 1.028 (Normal) Range: 1.005-1.030 :48 MICROALBUMIN: CREATININE RATIO Comments: PATIENT WAS FASTINGPERFORMED BY: Global Blood TherapeuticsMunson Healthcare [facility]6370 [facility] [id number] (50513) AND (62039) Microalb/Creat Ratio 1.6 {mg/g_creat} (Normal) Range: 0.0-30.0 Creatinine, Urine 195.7 mg/dL (Normal) Range: 22.0-328.0 Microalbumin, Urine 3.2 ug/mL (Normal) Range: 0.0-17.0 :48 METABOLIC PANEL, COMPREHENSIVE Comments: PATIENT WAS FASTINGPERFORMED BY: Vobile70 [facility] [id number] (66005) ALT (SGPT) 16 [iU]/L (Normal) Range: 0-44 [...] mg/dL (Normal) Range: 65-99 :48 LIPID PANEL (83335) Comments: PATIENT WAS FASTINGPERFORMED BY: Friendster6370 [facility] [id number] LDL Cholesterol Calc 97 mg/dL (Normal) Range: [...] MANUAL DIFF Comments: PATIENT WAS FASTINGPERFORMED BY: LabLakeland [facility] Hospital Pkqine6772 [facility] [id number] Information: [id number] (38189) Immature Grans (Abs) 0.0 {x10E3/uL} (Normal) Range: [...] (Normal) Range: 4.0-10.5 :46 HgA1C , Office (08609) HgA1C , Office 6.1 % (Normal) Range: 4.6 - 7.1 :46 Blood Glucose , Office (86793) Blood Glucose , Office 91 (Normal) 1-Wta-937687:25 HEPATOBILLIARY IMG W/PHARM INT Radiology Report See [...] Cholecystokinin (0.02 ug/kg) was administered intravenously over r07-gqzzhs period. The post CCK gallbladder ejection fraction ufssgxfnvnum38 minutes following Cholecystokinin administration was noted to [...] Richmond M.D.December 24, 2011 at 8:34:10 PM [phone] S igned RB/RB If you are the referring physician and would like to consult with theradiologist who provided this interpretation, please contact Chad Aragon at [phone]. If this radiologist is un available, you will bedirected to another radiologist to assist. If you are a patient with a question regarding this report, pleasecontactyour referring physician directly. Professional Interpretation P rovided By: Lagiar, Phone , These documents contain legally protected [...] on 12/24/112116 Sign by: Aamir Richmond DO 07-Ymc-90876:56 GALLBLADDER Radiology Report See Note (Normal) Comments: [...] size of the right kidney. The right xouxcaozgttfnt97.6 cm. Normal rolando al cortex. The right cortex measures 1.8 cm. Thereisno demonstrated renal mass or cyst. There is no right hydronephrosis. IMPRESSION:Sludge in the gallbladder lumen, with a thickened gallbladder wall .Correlation with nuclear medicine hepatobiliary scan is recommended. Signed:Jakob Hunt M.D.December 18, 2011 at 11:00:05 AM [phone] Signed GP/GP If you are the referring physician and would like to consult with theradiologist who provided this interpretation, please contact Chad Lao at [phone]. If this radiologist is unavailable, youwill be directed to another radiologist to assist. If you are a patient with a question regarding this report, pleasecontactyour referring physician directly. Professional Interpretation Provided By: Lagiar, Phone , These documents contain legally protected [...] destructionofthese documents. Dictated on 12/18/1140 by Jordy Hunt MDscribed on 12/18/111116 by ITS IMPORTSign by Jakob Hunt MD 12/18/111117 Sign by: Jakob Hunt MD :41 HgA1C , Office (05125) HgA1C , Office 6.2 % (Normal) Range: 4.6 - 7.1 :41 Blood Glucose , Office (17099) Blood Glucose , Office 115 (Normal) :37 HgA1C , Office (85013) HgA1C , Office 6.4 % (Normal) Range: 4.6 - 7.1 :37 Blood Glucose , Office (79022) Blood Glucose , Office 119 (Normal) :44 PSA (PROSTATE SPECIFIC Comments: PATIENT WAS FASTINGPERFORMED BY: [facility]70 [employer] [facility] [id number] ANTIGEN) (V76.44) Prostate Specific Ag, 1.7 ng/mL (Normal) Range: 0.0-4.0 Serum Comments: Monumental GamesIA methodology. .According to the [place] [employer], Serum PSA shoulddecrease and remain at undetectable levels after radicalprostatectomy. The AUA defines biochemical recurrence as an initialPSA value 0.2 ng/mL or greater followed by a subsequent confirmatoryPSA value 0.2 ng/mL or greater.Values obtained with d ifferent assay methods or kits cannot be usedinterchangeably. Results cannot be interpreted as absolute evidenceof the presence or absence of malignant disease. :44 TSH (82860) Comments: PATIENT WAS FASTINGPERFORMED BY: CaseReader6370 [facility]comFirst[facility] [id number] TSH 2.660 {uIU/mL} (Normal) Range: 0.450-4.500 :44 URINALYSIS, W/ MICRO (12041) Comments: PATIENT WAS FASTINGPERFORMED BY: CaseReader6370 Rosado [facility] [id number] Microscopic Examination See below: (Normal) Microscopic Examination MICRON (Normal) Comments: Microscopic follows if indicated. Nitrite, Urine Negative (Normal) Urobilinogen,Semi-Qn 0.2 mg/dL (Normal) Range: 0.0-1.9 Bilirubin Negative (Normal) Occult Blood Negative (Normal) Ketones Negative (Normal) Glucose Negative (Normal) Protein Negative (Normal) WBC Esterase Negative (Normal) Appearance Clear (Normal) Urine-Color Yellow (Normal) pH 6.0 (Normal) Range: 5.0-7.5 Specific [place] 1.024 (Normal) Range: 1.005-1.030 :44 MICROALBUMIN: CREATININE RATIO Comments: PATIENT WAS FASTINGPERFORMED BY: GUICHO CarNinja, IncLos Alamos Medical CenterGuwnua2476 [facility] [id number] (94556) AND (40466) Microalb/Creat Ratio 1.1 {mg/g_creat} (Normal) Range: 0.0-30.0 Microalbumin, Urine 3.2 ug/mL (Normal) Range: 0.0-17.0 Creatinine, Urine 294.1 mg/dL (Normal) Range: 22.0-328.0 :44 Microscopic Examination Comments: PATIENT WAS FASTINGPERFORMED BY: GUICHO CarNinja, IncLos Alamos Medical CenterCimhfr6134 [facility] [id number] Bacteria None seen (Normal) Mucus Threads Present (Normal) Epithelial Cells (non renal) None seen {/hpf} (Normal) Range: 0 - 10 RBC 0-3 {/hpf} (Normal) Range: 0 - 3 WBC 0-5 {/hpf} (Normal) Range: 0 - 5 :44 METABOLIC PANEL, COMPREHENSIVE Comments: PATIENT WAS FASTINGPERFORMED BY: CarNinja, IncLos Alamos Medical CenterPtkwrm7127 [facility] [id number] (89407) ALT (SGPT) 21 [iU]/L (Normal) Range: 0-55 [...] mg/dL (Abnormal) Range: 65-99 :44 LIPID PANEL (18401) Comments: PATIENT WAS FASTINGPERFORMED BY: [facility] [id number] LDL/HDL Ratio 1.2 {ratio_units} (Normal) Range: 0.0-3.6 [...] MANUAL DIFF Comments: PATIENT WAS FASTINGPERFORMED BY: [facility] [id number] Information: [id number] (57358) Immature Grans (Abs) 0.0 {x10E3/uL} (Normal) Range: [...] (Normal) Range: 4.0-10.5 :25 HgA1C , Office (52127) HgA1C , Office 6.2 % (Normal) Range: 4.6 - 7.1 :25 Blood Glucose , Office (22486) Blood Glucose , Office 84 (Normal) :56 Blood Glucose , Office (69092) Blood Glucose , Office 96 (Normal) :29 [...] HEATHER FONTENOT MD :08 HgA1C , Office (20020) HgA1C , Office 6.3 % (Normal) Range: 4.6 - 7.1 :08 Blood Glucose , Office (68456) Blood Glucose , Office 108 (Normal) :50 URINALYSIS, W/ MICRO (84244) Comments: PATIENT WAS FASTINGPERFORMED BY: [facility] [facility] [id number] Microscopic Examination See below: (Normal) Microscopic Examination MICRON (Normal) Comments: Microscopic follows if indicated. Nitrite, Urine Negative (Normal) Urobilinogen,Semi-Qn 0.2 mg/dL (Normal) Range: 0.0-1.9 Bilirubin Negative (Normal) Occult Blood Negative (Normal) Ketones Negative (Normal) Glucose Negative (Normal) Protein Negative (Normal) WBC Esterase Negative (Normal) Appearance Clear (Normal) Urine-Color Yellow (Normal) pH 5.5 (Normal) Range: 5.0-7.5 Specific [place] 1.022 (Normal) Range: 1.005-1.030 :50 MICROALBUMIN: CREATININE RATIO Comments: PATIENT WAS FASTINGPERFORMED BY: [employer] Yixlum1847 [facility] [id number] (77722) AND (21801) Microalb/Creat Ratio <.6 {mg/g_creat} (Normal) Range: 0.0-30.0 Creatinine, Urine 163.1 mg/dL (Normal) Range: 22.0-328.0 Microalbumin, Urine <1.0 ug/mL (Normal) Range: 0.0-17.0 Comments: Verified by repeat analysis 29-Nov-20108:50 METABOLIC PANEL, COMPREHENSIVE Comments: PATIENT WAS FASTINGPERFORMED BY: [employer] Hlmuiz7053 [facility] [id number] (96409) ALT (SGPT) 16 [iU]/L (Normal) Range: 0-55 [...] mg/dL (Abnormal) Range: 65-99 :50 LIPID PANEL (40763) Comments: PATIENT WAS FASTINGPERFORMED BY: [facility] [id number] LDL Cholesterol Calc 68 mg/dL (Normal) Range: [...] MANUAL DIFF Comments: PATIENT WAS FASTINGPERFORMED BY: [facility]6370 [facility] [id number] Information: [id number] (58845) Immature Grans (Abs) 0.0 {x10E3/uL} (Normal) Range: [...] Microscopic Examination Comments: PATIENT WAS FASTINGPERFORMED BY: [facility] [id number] Bacteria Few (Normal) Mucus Threads Present (Normal) Epithelial Cells (non renal) None seen {/hpf} (Normal) Range: 0 - 10 RBC None seen {/hpf} (Normal) Range: 0 - 3 WBC 0-5 {/hpf} (Normal) Range: 0 - 5 :58 HgA1C , Office (62456) HgA1C , Office 6.0 % (Normal) Range: 4.6 - 7.1 :58 Blood Glucose , Office (45179) Blood Glucose , Office 93 (Normal) 89-Rmi-931066:13 PSA (PROSTATE SPECIFIC Comments: PATIENT NOT FASTINGPERFORMED BY: [employer] Zfgouv1964 [facility] [id number] Information: [id number] ANTIGEN) (V76.44) Prostate Specific Ag, 1.5 ng/mL (Normal) Range: 0.0-4.0 Serum Comments: Dee ECLIA methodology. .According to the [place] [employer], Serum PSA shoulddecrease and remain [...] of malignant disease. :16 HgA1C , Office (88092) HgA1C , Office 6.2 % (Normal) Range: 4.6 - 7.1 :16 Blood Glucose , Office (79562) Blood Glucose , Office 196 (Normal) :15 TSH (44561) Comments: PATIENT WAS FASTINGPERFORMED BY: [facility]Car[facility] [id number] TSH 3.200 {uIU/mL} (Normal) Range: 0.450-4.500 2-Tfg-153762:15 MICROALBUMIN: CREATININE RATIO Comments: PATIENT WAS FASTINGPERFORMED BY: [facility]70 [employer] [facility] [id number] (12358) AND (51731) Creatinine, Urine 168.7 mg/dL (Normal) Range: 22.0-328.0 Microalb/Creat Ratio 1.5 {mg/g_creat} (Normal) Range: 0.0-30.0 Microalbumin, Urine 2.5 ug/mL (Normal) Range: 0.0-17.0 :15 METABOLIC PANEL, COMPREHENSIVE Comments: PATIENT WAS FASTINGPERFORMED BY: [facility] [id number] (51099) A/G Ratio 1.8 (Normal) Range: 1.1-2.5 Alkaline [...] Glucose, Serum 108 mg/dL (Abnormal) Range: 65-99 8-Whx-636876:15 LIPID PANEL (08040) Comments: PATIENT WAS FASTINGPERFORMED BY: [facility]70 [facility] [id number] LDL/HDL Ratio 1.8 {ratio_units} (Normal) Range: 0.0-3.6 HDL Cholesterol 49 mg/dL (Normal) Comments: According to ATP-III Guidelines, HDL-C >59 mg/dL is considered anegative risk factor for CHD. LDL Cholesterol Calc 86 mg/dL (Normal) Range: 0-99 VLDL Cholesterol Ezequiel 25 mg/dL (Normal) Range: 5-40 Cholesterol, Total 160 mg/dL (Normal) Range: 100-199 Triglycerides 123 mg/dL (Normal) Range: 0-149 6-Qpn-084075:15 CBC WITH MANUAL DIFF Comments: PATIENT WAS FASTINGPERFORMED BY: [facility]70 [facility] [id number] Information: [id number] (86511) Immature Grans (Abs) 0.0 {x10E3/uL} (Normal) Range: [...] (Normal) Range: 4.0-10.5 :53 HgA1C , Office (84754) HgA1C , Office 6.3 % (Normal) Range: 4.6 - 7.1 :53 Blood Glucose , Office (75775) Blood Glucose , Office 123 (Normal) :51 HgA1C , Office (42765) HgA1C , Office 6.2 % (Normal) Range: 4.6 - 7.1 :51 Blood Glucose , Office (63960) Blood Glucose , Office 93 (Normal) 75-Cgj-724845:01 Microscopic Examination Comments: PATIENT WAS FASTINGPERFORMED BY: [employer] Ositic2709 [facility] [id number] Bacteria Few (Normal) Mucus Threads Present (Normal) Epithelial Cells (non renal) None seen {/hpf} (Normal) Range: 0 - 10 RBC 0-3 {/hpf} (Normal) Range: 0 - 3 WBC 0-5 {/hpf} (Normal) Range: 0 - 5 :01 PSA (PROSTATE SPECIFIC Comments: PATIENT WAS FASTINGPERFORMED BY: [employer] Asmguh2497 [facility] [id number] ANTIGEN) (V76.44) Prostate Specific Ag, 1.4 ng/mL (Normal) Range: 0.0-4.0 Serum Comments: [employer] ECLIA methodology..According to the [place] U[employer] Association, Serum PSA shoulddecrease and remain at undetectable levels after radicalprostatectomy. The AUA defines biochemical recurrence a s an initialPSA value 0.2 ng/mL or greater followed by a subsequent confirmatoryPSA value 0.2 ng/mL or greater.Values obtained with different assay methods or kits cannot be usedinterchangeably. Results cannot be interpreted as absolute evidenceof the presence or absence of malignant disease. :01 TSH (82792) Comments: PATIENT WAS FASTINGPERFORMED BY: [employer] Zkmkiv5522 [facility] [id number] TSH 3.670 {uIU/mL} (Normal) Range: 0.450-4.500 25-Uck-346281:01 URINALYSIS, W/ MICRO (14601) Comments: PATIENT WAS FASTINGPERFORMED BY: [employer] Jemjzf3332 [facility] [id number] Microscopic Examination See below: (Normal) Bilirubin Negative (Normal) Microscopic Examination MICRON (Normal) Comments: Microscopic follows if indicated. Nitrite, Urine Negative (Normal) Urobilinogen,Semi-Qn 0.2 mg/dL (Normal) Range: 0.0-1.9 Glucose Negative (Normal) Ketones Negative (Normal) Occult Blood Negative (Normal) Protein Negative (Normal) WBC Esterase Negative (Normal) Appearance Clear (Normal) pH 6.0 (Normal) Range: 5.0-7.5 Specific [place] 1.024 (Normal) Range: 1.005-1.030 Urine-Color Yellow (Normal) :01 MICROALBUMIN: CREATININE RATIO Comments: PATIENT WAS FASTINGPERFORMED BY: [facility]6370 [facility] [id number] (75204) AND (99342) Microalb/Creat Ratio <.4 {mg/g_creat} (Normal) Range: 0.0-30.0 Microalbumin, Urine <1.0 ug/mL (Normal) Range: 0.0-17.0 Creatinine, Urine 226.9 mg/dL (Normal) Range: 22.0-328.0 :01 METABOLIC PANEL, COMPREHENSIVE Comments: PATIENT WAS FASTINGPERFORMED BY: [facility]70 [facility] [id number] (43777) A/G Ratio 2.0 (Normal) Range: 1.1-2.5 Alkaline [...] Glucose, Serum 93 mg/dL (Normal) Range: 65-99 27-Tyr-241129:01 LIPID PANEL (43629) Comments: PATIENT WAS FASTINGPERFORMED BY: [employer] [facility] [id number] HDL Cholesterol 46 mg/dL (Normal) Comments: According to ATP-III Guidelines, HDL-C >59 mg/dL is considered anegative risk factor for CHD. LDL Cholesterol Calc 70 mg/dL (Normal) Range: 0-99 LDL/HDL Ratio 1.5 {ratio_units} (Normal) Range: 0.0-3.6 VLDL Cholesterol Ezequiel 18 mg/dL (Normal) Range: 5-40 Cholesterol, Total 134 mg/dL (Normal) Range: 100-199 Triglycerides 89 mg/dL (Normal) Range: 0-149 16-Fow-266892:01 CBC WITH MANUAL DIFF Comments: PATIENT WAS FASTINGPERFORMED BY: [employer]70 [facility] [id number] Information: [id number] (29263) Baso (Absolute) 0.0 {x10E3/uL} (Normal) Range: 0.0-0.2 [...] (Normal) Range: 4.0-10.5 :59 HgA1C , Office (00774) HgA1C , Office 6.6 % (Normal) Range: 4.6 - 7.1 :59 Blood Glucose , Office (52969) Blood Glucose , Office 105 (Normal) :29 HgA1C , Office (28563) Comments: done km HgA1C , Office 7.2 % (Abnormal) Range: 4.6 - 7.1 :29 Blood Glucose , Office (35969) Comments: done Blood Glucose , Office 134 (Normal) :04 HgA1C , Office (75400) Comments: done km HgA1C , Office 6.7 % (Normal) Range: 4.6 - 7.1 :04 Blood Glucose , Office (79816) Comments: done Blood Glucose , Office 141 (Normal) :27 TSH (85869) Comments: PATIENT WAS FASTINGPERFORMED BY: LabCoLos Alamos Medical CenterKpvoms6999 [facility] [id number] TSH 3.740 {uIU/mL} (Normal) Range: 0.450-4.500 :27 METABOLIC PANEL, COMPREHENSIVE Comments: PATIENT WAS FASTINGPERFORMED BY: LabCoJersey Shore University Medical CenterJabcja3294 [facility] [id number] (01100) A/G Ratio 1.7 (Normal) Range: 1.1-2.5 Albumin, [...] Range: 135-145 :27 LIPOPROTEIN, BLD, BY NMR (24066) Comments: PATIENT WAS FASTINGClinical Information: ADD [id number], [id number] PERFORMED BY: [facility] Ihxtwb0374 [facility] [id number] Cholesterol, Total 149 mg/dL (Normal) HDL-C 41 [...] mg/dL (Normal) 25-Oct-20089:27 CBC WITH MANUAL DIFF (14197) Comments: PATIENT WAS FASTINGPERFORMED BY: [facility] Qjmphn8348 [facility] [id number] Baso (Absolute) 0.0 {x10E3/uL} (Normal) Range: 0.0-0.2 [...] (Normal) Range: 4.0-10.5 :55 HgA1C , Office (17417) Comments: done HgA1C , Office 5.9 % (Normal) Range: 4.6 - 7.1 :55 Blood Glucose , Office (48900) Comments: done Blood Glucose , Office 115 (Normal) 65-Zpo-616651:10 TSH (58135) Comments: REpeat first week in September; PATIENT NOT FASTINGClinical Information: ADD DRAW FEE [id number] ADD J [id number] PERFORMED BY: OinkJersey Shore University Medical CenterCaqwkm6641 [facility] [id number] TSH 3.800 {uIU/mL} (Normal) Range: 0.450-4.500 08-Est-644985:48 TSH (25394) Comments: PATIENT WAS FASTINGPERFORMED BY: [employer], IncJersey Shore University Medical CenterAfdrnk3971 [facility] [id number] TSH 4.538 {uIU/mL} (Abnormal) Range: 0.450-4.500 56-Dkp-412941:48 MICROALBUMIN: CREATININE RATIO Comments: PATIENT WAS FASTINGPERFORMED BY: [employer], IncMig[place] 0612270 [facility] [id number] (45760) AND (75782) Creatinine, Urine 370.1 mg/dL (Abnormal) Range: 22.0-328.0 Microalb/Creat Ratio 1.0 {ug/mg_creat} (Normal) Range: 0.0-30.0 Microalbumin, Urine 3.7 ug/mL (Normal) Range: 0.0-17.0 13-Bqo-472114:48 METABOLIC PANEL, COMPREHENSIVE Comments: PATIENT WAS FASTINGPERFORMED BY: LabCoJer[facility] Shore University Medical CenterPuopqg3005 [facility] [id number] (38090) A/G Ratio 1.6 (Normal) Range: 1.1-2.5 Albumin, [...] Sodium, Serum 140 mmol/L (Normal) Range: 135-145 61-Xks-176673:48 CBC WITH MANUAL DIFF (08426) Comments: PATIENT WAS FASTINGClinical Information: ADD DRAW FEE [id number] ADD J [id number] PERFORMED BY: [employer] [facility] [id number] Baso (Absolute) 0.0 {x10E3/uL} (Normal) Range: 0.0-0.2 [...] 11.7-15.0 WBC 6.1 {x10E3/uL} (Normal) Range: 4.0-10.5 93-Kqg-716740:48 LIPID PANEL (67960) Comments: PATIENT WAS FASTINGPERFORMED BY: GUICHO LabCoJersey Shore University Medical CenterNnvavb7320 [facility] [id number] Cholesterol, Total 171 mg/dL (Normal) Range: 100-199 HDL Cholesterol 45 mg/dL (Normal) Comments: According to ATP-III Guidelines, HDL-C >59 mg/dL is considered anegative risk factor for CHD. LDL Cholesterol Calc 99 mg/dL (Normal) Range: 0-99 LDL/HDL Ratio 2.2 {ratio_units} (Normal) Range: 0.0-3.6 Triglycerides 133 mg/dL (Normal) Range: 0-149 VLDL Cholesterol Ezequiel 27 mg/dL (Normal) Range: 5-40 :24 HgA1C , Office (90644) Comments: done HgA1C , Office 6.5 % (Normal) Range: 4.6 - 7.1 :24 Blood Glucose , Office (21496) Comments: done Blood Glucose , Office 113 (Normal) :38 HgA1C , Office (16263) Comments: done HgA1C , Office 6.0 % (Normal) Range: 4.6 - 7.1 :38 Blood Glucose , Office (81712) Comments: done Blood Glucose , Office 132 (Normal) :09 PSA,TOT SCREEN 1.30 ng/mL (Normal) Range: 0.00-4.00 Comments: This test was performed using the TPSA method for the[employer] chemistry system.Values obtained with different assay methods cannot be usedinterchangably.When changing PSA assays in the course of monito ring apatient, additional sequential testing should be carriedout to confirm baseline values. :00 HgA1C , Office (69406) Comments: done HgA1C , Office 7.4 % (Abnormal) Range: 4.6 - 7.1 :00 Blood Glucose , Office (15094) Comments: done Blood Glucose , Office 138 (Normal) :32 MYOCARD PERF SPECT REST/STRESS Radiology Report See Note (Normal) Comments: Exam Number: [id number] MYOCARDIAL PERFUSION SCAN TECHNIQUEThe patient was injected [...] of 60%. Reported By: LOUIS CASTILLO M.D. 93-Nyj-497851:27 URINALYSIS W/O MICRO (70842) Comments: PATIENT WAS FASTINGPERFORMED BY: LabCoJersey Shore University Medical CenterZukdgd2546 [facility] [id number] Appearance Clear (Normal) Bilirubin Negative (Normal) Glucose Negative (Normal) Ketones Negative (Normal) Microscopic Examination MICRON (Normal) Comments: Microscopic follows if indicated. Nitrite, Urine Negative (Normal) Occult Blood Negative (Normal) pH 7.5 (Normal) Range: 5.0-7.5 Protein Trace (Normal) Specific [place] 1.023 (Normal) Range: 1.005-1.030 Urine-Color Yellow (Normal) Urobilinogen,Semi-Qn 0.2 mg/dL (Normal) Range: 0.0-1.9 WBC Esterase Negative (Normal) :27 TSH (40063) Comments: PATIENT WAS FASTINGPERFORMED BY: [facility]6[address] [facility] [id number] TSH 3.505 {uIU/mL} (Normal) Range: 0.350-5.500 Comments: Adult TSH concentrations below 5.5 uIU/mL do not rule out the presence of subclinical hypothyroidism. : MICROALBUMIN URINE QUANT Comments: PATIENT WAS FASTINGPERFORMED BY: [address] [id number] (69595) Microalbum.,U,Random 4.4 ug/mL (Normal) Range: 0.0-17.0 : METABOLIC PANEL, COMPREHENSIVE Comments: PATIENT WAS FASTINGPERFORMED BY: [facility] TherapeuticsGregory V[place] 2861470 [facility] [id number] (35140) A/G Ratio 1.8 (Normal) Range: 1.1-2.5 Albumin, [...] Serum 132 mg/dL (Abnormal) Range: 65-99 If -Bruneian >60 mL/min (Normal) Range: 60-137 Comments: Note: [...] Sodium, Serum 140 mmol/L (Normal) Range: 135-145 24-Adg-493250:27 CBC WITH MANUAL DIFF (01778) Comments: PATIENT WAS FASTINGClinical Information: ADD [id number], ADD [id number] PERFORMED BY: [facility]6[address] [facility] [id number] Baso (Absolute) 0.0 {x10E3/uL} (Normal) Range: 0.0-0.2 [...] {x10E3/uL} (Normal) Range: 4.0-10.5 :27 LIPID PANEL (58643) Comments: PATIENT WAS FASTINGPERFORMED BY: LabCoJersey Shore University Medical CenterVruggh9316 [facility] [id number] LDL/HDL Ratio 2.4 {ratio_units} (Normal) Range: 0.0-3.6 Cholesterol, Total 212 mg/dL (Abnormal) Range: 100-199 Comment SPRCS (Normal) Comments: If initial LDL-cholesterol result is >100 mg/dL, assess forrisk factors. HDL Cholesterol 52 mg/dL (Normal) Range: 40-59 LDL Cholesterol Calc 123 mg/dL (Abnormal) Range: 0-99 Triglycerides 184 mg/dL (Abnormal) Range: 0-149 VLDL Cholesterol Ezequiel 37 mg/dL (Normal) Range: 5-40 :28 HgA1C , Office (68543) Comments: done HgA1C , Office 6.9 % (Normal) Range: 4.6 - 7.1 :28 Blood Glucose , Office (94016) Comments: done Blood Glucose , Office 157 (Normal) :58 HgA1C , Office (16310) Comments: done HgA1C , Office 6.6 % (Normal) Range: 4.6 - 7.1 :58 Blood Glucose , Office (87645) Comments: done Blood Glucose , Office 136 [...] was performed using the TPSA method for theGreat [employer] chemistry system.Values obtained with different assay methods cannot be usedinterchangably.When changing PSA assays in the course of monito ring apatient, additionaly sequential testing should be carriedout to confirm baseline values. :29 TSH 3.67 {uIU/mL} (Normal) Range: 0.34-4.82 :39 Blood Glucose , Office (86823) Comments: done km Blood Glucose , Office 98 (Normal) :39 HgA1C , Office (50936) Comments: done km HgA1C , Office 6.5 % (Normal) Range: 4.6 - 7.1 :57 HgA1C , Office (19970) HgA1C , Office 6.5 % (Normal) Range: 4.6 - 7.1 :57 Blood Glucose , Office (96226) Blood Glucose , Office 138 (Normal) :03 HgA1C , Office (64833) HgA1C , Office 6.6 % (Normal) Range: 4.6 - 7.1 :03 Blood Glucose , Office (82337) Blood Glucose , Office 92 (Normal) 33-Bvg-565960:28 LIVER ALB 3.6 g/dL (Normal) Range: 3.4-5.0 [...] 1 month- gen med / will need [facility] Indication: Physical exam WITHOUT abnormal [...] from H/O transient cerebral ischemia) : Reviewed Cloth Finishing Range Back Tender Letter Indication: History of transient cerebral ischemia (Renamed from H/O transient cerebral ischemia) Hypertensive urgency : Reviewed Cl[employer] Finishing Range Back Tender Letter Indication: Hypertensive urgency Heart disease, hypertensive, [...] Current Prescription(s) Indication: Hypothyroidism Hypothyroidism : Reviewed Cl[employer] Fin[employer] Range Back Tender Letter Indication: Hypothyroidism Uncontrolled type II diabetes [...] from there Planned Observations T4, FREE (THYROXINE) (12897)Indication: Hypothyroidism On: 97-Kgw-643010:48 Request T3, FREE (TRIDOTHYRONINE) (68301)Indication: Hypothyroidism On: 81-Zfo-389307:48 Request URINALYSIS, W/ MICRO (59448)Indication: Essential hypertension On: 89-Wby-067060:47 Request MICROALBUMIN: CREATININE RATIO (19818) AND (88030)Indication: Essential hypertension On: 30-Skx-719998:47 Request METABOLIC PANEL, COMPREHENSIVE (64442)Indication: Essential hypertension On: :47 Request CBC W/AUTO DIFF WBC (60236)Indication: Essential hypertension On: 99-Rsq-999842:47 Request LIPID PANEL (32984)Indication: Hypercholesterolemia On: 61-Lyc-295536:47 Request TSH (68724)Indication: Hypothyroidism On: 44-Mwx-056220:47 Request CALCIFIDIOL (59293) VIT D 25Indication: Vitamin D deficiency On: 66-Iff-097935:47 Request Influenza A&B Viral Culture (85596)Indication: Flu-like symptoms On: 7-Bim-664090:53 Request POTASSIUM SERUM (90141)Indication: Potassium disorder On: 58-Rin-853729:53 Request CALCIFEDIOL (80866)Indication: Vitamin D deficiency On: :36 Request TSH (82534)Indication: Hypothyroidism On: 02-Tcy-41865:35 Request Lipid Panel (19769)Indication: Hypercholesterolemia On: :34 Request Metabolic Panel, Comprehensive (74473)Indication: Hypercholesterolemia On: :34 Request URINE VMA (44152)Indication: Hypertensive urgency On: 99-Oyz-089650:54 Request Catecholamines,24-Hour Urine (64383)Indication: Hypertensive urgency On: 73-Jmw-162121:54 Request RENIN (18402)Indication: Hypertensive urgency On: 77-Uzz-843206:54 Request ALDOSTERONE (43304)Indication: Hypertensive urgency On: 88-Gmq-303154:54 Request METANEPHRINES (36000)Indication: Hypertensive urgency On: 43-Gff-401039:54 Request CBC (Auto) (67568)Indication: Hypertensive urgency On: 91-Ude-167609:36 Request Metabolic Panel, Basic (91436)Indication: Hypertensive urgency On: 36-Wdj-962992:36 Request TSH (81836)Indication: Hypertensive urgency On: :24 Request CBC WITH MANUAL DIFF (14025)Indication: Hypertensive urgency On: 92-Hxs-897354:24 Request METABOLIC PANEL, COMPREHENSIVE (02904)Indication: Hypertensive urgency On: 78-Jfd-713535:24 Request Troponin I (11855)Indication: Hypertensive urgency On: 43-Fnw-062073:20 Request CPK MB FRACTION (21742)Indication: Hypertensive urgency On: 88-Mwp-432233:20 Request CREATINE KINASE TOTAL (63663)Indication: Hypertensive urgency On: 10-Spy-452665:20 Request TSH (44860)Indication: Hypothyroidism On: 92-Tot-169676:56 Request HgA1C , Office (01248)Indication: Controlled diabetes mellitus type II without complication On: 55-Wqq-08311:56 Request PSA (PROSTATE SPECIFIC ANTIGEN) (V76.44)Indication: Screening for prostate cancer On: :20 Request TSH (24950)Indication: Uncontrolled type II diabetes mellitus On: :19 Request URINALYSIS, W/ MICRO (48776)Indication: Uncontrolled type II diabetes mellitus On: :19 Request MICROALBUMIN: CREATININE RATIO (65111) AND (01236)Indication: Uncontrolled type II diabetes mellitus On: :19 Request METABOLIC PANEL, COMPREHENSIVE (74735)Indication: Uncontrolled type II diabetes mellitus On: :19 Request LIPOPROTEIN, BLD, BY NMR (43144)Indication: Uncontrolled type II diabetes mellitus On: :19 Request LIPID PANEL (08585)Indication: Uncontrolled type II diabetes mellitus On: :19 Request CBC WITH MANUAL DIFF (17096)Indication: Uncontrolled type II diabetes mellitus On: : Request LIPOPROTEIN, BLD, BY NMR (54859)Indication: Hypercholesterolemia On: :57 Request LIPID PANEL (73899)Indication: Hypercholesterolemia On: :57 Request Comments: do in 3 months LIPID PANEL (20389)Indication: Controlled diabetes mellitus type II without complication On: :22 Request T3, FREE (TRIDOTHYRONINE) (56695)Indication: Abnormal TSH On: :40 Request T4, FREE (THYROXINE) (07079)Indication: Abnormal TSH On: :40 Request TSH (26256)Indication: Abnormal TSH On: :40 Request Comments: do in 2-3 mo TSH (02099)Indication: Controlled diabetes mellitus type II without complication On: :29 Request METABOLIC PANEL, COMPREHENSIVE (26606)Indication: Controlled diabetes mellitus type II without complication On: :29 Request MICROALBUMIN: CREATININE RATIO (26687) AND (33530)Indication: Controlled diabetes mellitus type II without complication On: : Request CBC WITH MANUAL DIFF (33952)Indication: Controlled diabetes mellitus type II without complication On: :29 Request LIPID PANEL (05579)Indication: Controlled diabetes mellitus type II without complication On: :29 Request PSA (PROSTATE SPECIFIC ANTIGEN) (V76.44)Indication: Uncontrolled type II diabetes mellitus On: :18 Request LIPID PANEL (12657)Indication: Hypercholesterolemia On: :02 Request HEPATIC FUNCTION PANEL (93432)Indication: Hypercholesterolemia On: 34-Oak-238258:02 Request TSH (76989) On: :45 Request METABOLIC PANEL, COMPREHENSIVE (32009) On: :44 Request LIPID PANEL (71417) On: :44 Request CBC WITH MANUAL DIFF (21908) On: :44 Request PSA (PROSTATE SPECIFIC ANTIGEN) (07389) On: :17 Request Comments: screening TSH (56154) On: :14 Request URINALYSIS W/O MICRO (20247) On: :14 Request MICROALBUMIN URINE QUANT (37920) On: :14 Request LIPID PANEL (15939) On: :14 Request METABOLIC PANEL, COMPREHENSIVE (30038) On: 4-Dvi-290117:14 Request CBC WITH MANUAL DIFF (62432) On: 4-Qsu-409851:14 Request MICROALBUMIN: CREATININE RATIO (97216) On: :07 Request AND (72411) METABOLIC PANEL, COMPREHENSIVE (39379) On: :07 Request LIPID PANEL (32741) On: :07 Request CBC WITH MANUAL DIFF (07858) On: 9-Blz-754070:07 Request Planned Procedures HIDA SCAN WITH CHOLECYSTOKININ On: 03-Apr-2018 Intent (34260)By: Denisa Macias DO, DO, Kathleen ULTRASOUND, ABDOMEN, LIMITED On: 01-Apr-2018 Intent (72143)By: Denisa Macias DO Comments: needs for pre-op -- this week please Denisa Macias DO EKG (04721)By: Denisa Macias DO On: 27-Feb-2018 Intent Denisa Macias DO Comments: nsr no acute chg PNEUM VAC ADLT/IMUMNOSPR, SBC/INTRM On: 07-Feb-2018 Intent (14219)By: Denisa Macias DO Comments: 0.5 cc given sq lt arm lot [id number] exp 04/21/19 Denisa Macias DO X-RAY OF RIGHT HAND, ONE OR TWO On: 07-Feb-2018 Intent VIEWS ([id number])By: Denisa Macias DO Comments: attention to hypothenar area for FB Denisa Macias DO TD VACCINE ADULT ([id number])By: Venkata, On: 23-Dec-2017 Intent Anne Comments: a105a3/22745.5mlr dltd, IMMLONG Flu Vaccine (Quadrivalent) 11889He: On: 28-Nov-2017 Intent Visit, Nurse Comments: Lot #[id number]/30/19Site-L dltd, IMDose prefilled syringegiven by: Genna VARGAS.VIS reviewed and ABN signed X-RAY RIGHT KNEE, 3 VIEWS ([id number])By: On: 31-Jul-2017 Intent Denisa Macias DO, DO, Kathleen Radiology - Knee - Right - Weight On: 31-Jul-2017 Intent BearingBy: Denisa Macias DO, DO, Kathleen ELECTROCARDIOGRAM, COMPLETE (ECG) On: 31-Jul-2017 Intent ([id number])By: Denisa Macias DO Comments: nsr no acute chg Denisa Macias DO CT - Brain/Head (IV Contrast On: 31-Dec-2016 Intent Needed)By: Denisa Macias DO, DO, Kathleen Echo CompleteBy: Denisa Macias DO On: 31-Dec-2016 Intent Denisa Macias DO [id number] BEHAVIORAL COUNSELING On: 31-Dec-2016 Intent FOR OBESITY, 15 MINUTES ([id number])By: Denisa Macias DO, DO, Kathleen Flu Vaccine (Quadrivalent) [id number]: On: 17-Dec-2016 Intent Denisa Macias DO, DO, Comments: Lot:[id number]:09/09/17Amt:0.5mlRoute:IMSite: L DltdGiven By: YURY Valdez signed Denisa MAGNETIC RESONANCE ANGIOGRAPHY OF On: 3-Dayo-2017 Intent CAROTID AND VERTEBRAL VESSELS ([id number])By: Denisa Macias DO, DO, Kathleen ELECTROCARDIOGRAM, COMPLETE (ECG) On: 24-Sep-2016 Intent ([id number])By: Denisa Macias DO Comments: sinus gabby no acute chg- on BB Denisa Macias DO Renal Duplex ScanBy: Colleen GARCIA, On: 24-Sep-2016 Intent Denisa Valladares DO ELECTROCARDIOGRAM, COMPLETE (ECG) On: 10-Sep-2016 Intent ([id number])By: Denisa Macias DO Comments: sinus gabby no acute chg Denisa Macias DO CT HEAD OR BRAIN WO CONTRAST On: 21-May-2016 Intent (04021)By: Denisa Macias DO, DO, Kathleen Flu Vaccine (Quadrivalent) [id number]: On: 23-Dec-2015 Intent Emeka Levin Comments: FLUlot: [id number]:08/08site:Lt deltoidroute:IMdose:.5mlDEMICK, [place] Echo CompleteBy: Denisa Macias DO On: 24-Oct-[address] SCAN OF CHEST WITH CONTRAST On: 24-Oct-2015 Intent ([id number])By: Denisa Macias DO, DO, Kathleen CT - Chest (IV Contrast Needed)By: On: 20-Jun-2015 Intent Denisa Macias DO, DO, Kathleen Echo CompleteBy: Denisa Macias DO On: 21-Feb-2015 Intent Denisa Macias DO Flu Vaccine (Quadrivalent) [id number]: On: 05-Jan-2015 Intent Denisa Macias DO, DO, Comments: lot [id number]: 09/22/2015site/route L rafa, IMamt 0.5mlVIS and ABN signed when applicableELIO Oliver4 Denisa ELECTROCARDIOGRAM, COMPLETE (ECG) On: 16-Nov-2014 Intent ([id number])By: Denisa Macias DO Comments: nsr no acute changes - Denisa Macias DO Prevnar 13 ([id number])By: Colleen GARCIA, On: 10-May-2014 Intent Denisa Macias DO Denisa Comments: Lot:[id number]:08/07Dose:0.5mgRoute:imSite:l armGiven By:MIGUEL ÁNGEL signed Inhaler Demonstration ([id number])By: On: 23-Mar-2014 Intent Hayley Stone CNP ADMINISTRATION OF INFLUENZA VIRUS On: 25-Dec-2013 Intent VACCINE (G0008)By: Visit, Nurse Comments: Lot #[id number]-L dltd, IMDose prefilled syringegiven by:YURY Seymour and IRAIS signed FLU VAC, SPLIT, >3 YEARS, INTRAMUSC On: 25-Dec-2013 Intent ([id number])By: Visit, Nurse EKG ([id number])By: Denisa Macias DO On: 08-Oct-2013 Intent Colleen [...] PNEUM VAC ADLT/IMUMNOSPR, SBC/INTRM On: 19-Dec-2012 Intent ([id number])By: Marge Smith Comments: Lot:[id number]:10/25/13Dose:0.5mgRoute:imSite:r armGiven By:MIGUEL ÁNGEL signed ADMINISTRATION OF PNEUMOCOCCAL On: 19-Dec-2012 Intent VACCINE (G0009)By: Mareg Smith FLU VAC, SPLIT, >3 YEARS, INTRAMUSC On: 17-Dec-2012 Intent ([id number])By: Anne Edge LPN Comments: Lot:[id number]:6.14Amt:0.5mlRoute:IMSite: L DltdGiven By: ALICIA ValdezVIS signed Eprescribed [...] 04-Aug-2012 Intent Denisa Colleen DO, Denisa EKG ([id number])By: Colleen DO Denisa On: 28-Jul-2012 Intent Colleen [...] - HIDA w/CPKBy: On: 19-Dec-2011 Intent Ciesa MARKET GARDENER, Supriya EKG ([id number])By: Colleen DO Denisa On: 13-Dec-2011 Intent Colleen DO Denisa Comments: nsr no acute chg Ultrasound - GallbladderBy: Colleen On: 29-Nov-2011 Intent DODenisa Colleen DO, Denisa Eprescribed prescriptions ([id number])By: On: 29-Nov-2011 Intent Anne Edge LPN FLU VAC, SPLIT, >3 YEARS, INTRAMUSC On: 27-Nov-2011 Intent ([id number])By: Marissa Palomino LPN Comments: Lot #[id number]/30/13Site-left deltoidgiven by: Todd Palomino LPN ADMINISTRATION OF INFLUENZA VIRUS On: 27-Nov-2011 Intent VACCINE (G0008)By: Marissa Palomino LPN MRI - Lumbar Spine (IV Contrast On: 26-Jan-2011 Intent Needed)By: Denisa Macias DO, DO, Kathleen EKG ([id number])By: Denisa Macias DO On: 05-Jan-2011 Intent Denisa Macias DO Comments: nsr no acute chg Cartoid DopplerBy: Colleen GARCIA, On: 05-Jan-2011 Intent Denisa Valladares DO EKG ([id number])By: Denisa Macias DO On: 06-Dec-2010 Intent Denisa Macias DO Comments: nsr no acute chgn- Bio Z ([id number])By: Denisa Macias DO On: 06-Dec-2010 Intent Denisa Macias DO Comments: stabel parameters- no chg in rx IMMUNIZ ADMNIN, 1 VAC, SNGL/COMBO On: 06-Dec-2010 Intent ([id number])By: Denisa Macias DO, DO, Kathleen FLU VAC, SPLIT, >3 YEARS, INTRAMUSC On: 06-Dec-2010 Intent (11601)By: Denisa Macias DO, DO, Kathleen TDAP VACCINE >7 IM ([id number])By: Colleen On: 30-Aug-2010 Denisa Izquierdo DO, DO, Kathleen Comments: Lot #[id number]/25/13Site-left deltoidgiven by: Todd Palomino LPN ADMINISTRATION OF INFLUENZA VIRUS On: 27-Dec-2009 Intent VACCINE (G0008)By: Edilia Vasquez LPN FLU VAC, SPLIT, >3 YEARS, INTRAMUSC On: 27-Dec-2009 Intent ([id number])By: Edilia Vasquez LPN Comments: Lot #[id number] 4PExp-07/03Site-L armDose0.5mlgiven by: EKG ([id number])By: Denisa Macias DO On: 15-Nov-2009 Intent Denisa Macias DO Comments: nsr no acute changes MRI - Shoulder(s) - LeftBy: Colleen On: 11-May-2009 Intent Denisa GARCIA DO, Kathleen Bio Z ([id number])By: Denisa Macias DO On: 25-Oct-2008 Intent Denisa Macias DO Comments: NORMAL SVR AND CO EKG ([id number])By: Denisa Macias DO On: 25-Oct-2008 Intent Denisa Macias DO Comments: NSR NO ACUTE CHANGES Bio Z ([id number])By: Denisa Macias DO On: 04-Jun-2008 Intent Denisa Macias DO Comments: normal IMMUNIZ ADMNIN, 1 VAC, SNGL/COMBO On: 05-Jan-2008 Intent ([id number])By: Denisa Macias DO, DO, Kathleen FLU VAC, SPLIT, >3 YEARS, INTRAMUSC On: 05-Jan-2008 Intent ([id number])By: Denisa Macias DO, DO, Kathleen Bio Z ([id number])By: Denisa Macias DO On: 07-Nov-2007 Intent Denisa Macias DO Comments: normal svr and co Nuclear Stress Test/Stress On: 15-Sep-2007 Intent SPECT/TreadmillBy: Colleen GARCIA, Comments: heart group Denisa Valladares DO Echo CompleteBy: Denisa Macias DO On: 07-Aug-2007 Intent Denisa Macias DO Cartoid DopplerBy: Colleen GARCAI, On: 07-Aug-2007 Intent Denisa Valladares DO EKG (43002)By: Denisa Macias DO On: 07-Aug-2007 Intent Denisa Macias DO Comments: nsr no acute ischemic changes EKG (44102)By: Denisa Macias DO On: 29-Nov-2006 Intent Denisa [...] patient does have durable power of assistant attorney general and living will. The patient has noticed [...] patient does have durable power of assistant attorney general and living will. The patient has noticed nothing from the geriatic depression scale. Other providers contributing to the patient's care are supervisor bakery sanitation (dr zayas) and other: ([facility], vision test up to date).Encounter Diagnosis: Physical [...] in bathroom. The patient has completed the [facility] preventative measures: PSA testing (2011) and colonoscopy (2011). The patient does have durable power of assistant attorney general and living will. The patient has noticed nothing from the geriatic depression scale . Other providers contributing to the patient's care are supervisor bakery sanitation (Dr. Antonio) and surgeon (Dr. Negro -- [...] toscano does have durable power of assistant attorney general and living will. The patient has noticed nothing from the geriatic depression scale. 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 Encounter Diagnosis: Type II Diabetes,controlled (250.00), [...]
--- OUTSIDE RECORDS SUMMARY | 2018-06-16 22:11 | XMS RPT_ITS | Continuity of Care Document ---
:1945 External Reference #:[id number] Author Organization [facility] Address [address] [facility] [address] [place] [address] Phone Care Team Providers Name Role Phone [...] not in neptali anymore so we will product picker ball Status: Active TUBULOVILLOUS ADENOMA, NOS [...] DO, Kathleen Start : 27-Dec-2016 Active Pen [place] 5/16 31G X 8 MM Miscellaneous 1 [...] (External Solution) uad (10 %) Inactive Comments:Trillium [place] Levitra 10 MG Oral Tablet 1 Tablet [...] : 03-May-2016 End : 10-Sep-2016 Inactive ASPIRIN BUF(XBMOKK-DCPBWS-PXN), 325MG (Oral Tablet) 1 (one) Tablet Daily [...] Summary (1) Result: Comments: See Note; NOTES: [facility] Physical Therapy [facility] [facility] [place] [address] Fax REHABILITATION SERVICES DISCHAR GE SUMMARY MR#: [id number] Acct: [id number] Name: YOHANNES CADET Rep #: [id number] : 1945 71 From: Aftab Mendez PT, ATC Referring Dr.: Nik Ch DPM Status: REG RCR Insurance: MEDIC ARE PART A B WPS [employer] HP - PT D/C Summary It [...] please feel free to call me at [phone]. Thank you for the referral of this patient. Sincerely, Aftab Mendez, PT, <Electronically signed by Aftab Mendez PT, ATC> 12/05/16 1100 CC: Nik valdes DPM; Denisa Macias DO [facility] Signed 09-Oct-2016 Inital Evaluation (1) - PT Result: Comments: See Note; NOTES: [facility] Physical Therapy [facility] [address] [place] [address] Fax REHABILITATION SERVICES INITIAL EVALUATION MR#: [id number] Acct: [id number] Name: YOHANNES CADET Rep #: [id number] : 1945 71 From: Aftab Mendez PT, ATC Referring Dr.: Nik Ch DPM Status: REG RCR Insurance: [facility] PART A B [employer] [facility] [facility] [employer] Patient's Visit Information YOHANNES CADET [...] to be FAXED BACK to us at [phone] for Medicare purposes. Please let me know if there are questions or concerns regarding this plan of care. Physician Signature: Date: <Electronically signed by Aftab Mendez PT, ATC> 1001 CC: Nik Ch DPM; Denisa Macias DO [facility] Signed For Medicare only, by signing this I certify the plan of care. Physicians Signature Date 21-May-2016 Brain/Head without Contrast Result: Comments: See Note; NOTES: [facility] Imaging Services [address] [place] [address] Verdamadan 4d Brain/Head without Contrast MR#: [id number] Acct: [id number] Name: YOHANNES CADET Rep #: [id number] : 1945 M 70 From: Sincere Solorio DO PCP: Denisa Macias DO Status: REG CLI Study: Brain/Head without Contrast Date of Exam: 05/21/16 Exam# [id number] Ordering Dr: Denisa Macias DO STUDY: CT [...] at 14:26 EST Tel , Service support [phone], CC: Denisa Macias DO Cardiac Cath Tech: Signed 14-Nov-2015 Echocardiogram Complete Result: Comments: See Note; NOTES: [facility] Cardiovascular Services [address] [place] [address] Echo Complete 11/14/15 1303 MR#: [id number] Acct: [id number] Name: YOHANNES CADET Rep #: [id number] : 1945 70 From: Layo Raymond MD [...] 10/24 05/10 1303 Date Transcribed: 11/14/15 1649 Cardiac Cath Tech: Signed 14-Nov-2015 Chest WITH Contrast Result: Comments: See Note; NOTES: [facility] Imaging Services [address] [place] [address] Verdana 4d Chest WITH Contrast MR#: [id number] Acct: [id number] Name: YOHANNES CADET Rep #: [id number] : 1945 M 70 From: Asia Peres MD PCP: Denisa Macias DO Status: REG CLI Study: Chest WITH Contrast Date of Exam: 11/14/15 Exam# [id number] Ordering Dr: Denisa Macias DO S TUDY: [...] Service support , CC: Denisa Macias DO Cardiac Cath Tech: Signed 24-Oct-2015 ELECTROCARDIOGRAM, COMPLETE (ECG) (39503) Comments: sinus gabby - no acute chg - same as old and on BB Result: [MEASUREMENTS ANALYSIS] Date of Test: 10/24/2015 09:30:26; Heart Rate: 55; DC Interval: 184; QRS: 105; QT Interval: 404; Corrected QT Interval (QTc): 396; P Wave Colon: 26; QRS Wave Colon: 27; T Wave Colon : 34; Blood Pressure: 138/70 [ECG DIAGNOSTIC STATEMENTS] Date of Test: 10/24/2015 09:30:26; Summary: Sinus Bradycardia WITHIN NORMAL LIMITS 29-Sep-2015 Knee 4 or More Views Result: Comments: See Note; NOTES: [facility] Imaging Services [address] [place] [address] Verdana 4d Knee 4 or More Views MR#: [id number] Acct: [id number] Name: YOHANNES CADET Rep #: [id number] : 1945 70 From: Tripp Miller MD PCP: Denisa Macias DO Status: REG CLI Study: Knee 4 or More Views Date of Exam: 09/29/15 Exam# [id number] Ordering Dr: Carrol Bautista DO STUDY: X-RAY [...] FACR at 9:18 EDT , Service support [phone], RAD/Knee 4 or More Views IMPRESSION: Moderate arthrosis of the patellofemoral joint Electronically Signed: Tripp Miller MD, FACR at 9:18 EDT , Service support , CC: Carrol Kirkpatrick DO; Denisa Macias DO Cardiac Cath Tech: Signed 27-Oct-2013 PT Discharge Summary Result: Comments: See Note; NOTES: [facility] Physical Therapy [facility] [address] [place] [address]. [address] [place] [address] Fax REHABILITATION SERVICES DISCHARGE SUMMARY MR#: [id number] Acct: [id number] Name: YOHANNES CADET Rep #: [id number] : 1945 68 From: Baljit Silva Referring [...] referral. Baljit Silva, PT T: GI JOB: [id number] <Electronically signed by Baljit pantoja > 10/27/13 0758 CC: Signed 27-Jul-2013 Inital Evaluation - PT Result: Comments: See Note; NOTES: [facility] Physical Therapy [facility] [address] [facility] [place], [place] [address] Fax REHABILITATION SERVICES INITIAL EVALUATION MR#: [id number] Acct: [id number] Name: YOHANNES CADET Rep #: [id number] : 1945 67 From: Baljit Silva Referring Dr.: Denisa Macias DO Status: DIS RCR Insurance: [place] [employer] PART A B Eval Date: [facility] [employer] DATE OF SERVICE: 07/20/2013 REFERRING PHYSICIAN: Dr. 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 His goals are to find [...] We discussed with patient possibly using the svck-gpn-mnzkjln orthotics before he considers fabricated orthotics due to cost. Uzair Silva PT T: GI JOB: [id number] <Electronically signed by Baljit Silva > 07/27/13 1802 CC: Signed For Medicare only, by signing this I c ertify the plan of care. Physicians Signature Date 09-Jul-2013 Hip min 2 Views Result: Comments: See Note; NOTES: [facility] Imaging Services [address] [place] [address] Radiology Report MR#: [id number] Acct: [id number] Name: YOHANNES CADET Rep #: [id number] : 1945 M 67 From: Jakob Hunt MD PCP: Denisa Macias DO Status: REG CLI Study: Hip min 2 Views Date of Exam: 07/09/13 Exam# [id number] Ordering Dr: Denisa Macias DO STUDY : [...] Jakob Hunt MD at 14:44 EDT Tel [phone], Service support [phone], Fax CC: Denisa Macias DO Cardiac Cath Tech: Signed 09-Jul-2013 Pelvis 1 or 2 Views Result: Comments: See Note; NOTES: [facility] Imaging Services [address] [place] [address] Radiology Report MR#: [id number] Acct: [id number] Name: YOHANNES CADET Rep #: [id number] : 1945 M 67 From: Jakob Hunt MD PCP: Denisa Macias DO Status: REG CLI Study: Pelvis 1 or 2 Views Date of Exam: 07/09/13 Exam# [id number] Ordering Dr: Denisa Macias DO S TUDY: [...] Jakob Hunt MD at 13:32 EDT Tel [phone], Service support [phone], CC: Denisa Macias DO Cardiac Cath Tech: Signed 09-Jul-2013 EKG (21434) Comments: nsr no acute chg - ant leads are old Result: [MEASUREMENTS ANALYSIS] Date of Test: 07/09/2013 08:48:02; Heart Rate: 57; DC Interval: 164; QRS: 106; QT Interval: 408; Corrected QT Interval (QTc): 403; P Wave Colon: 25; QRS Wave Colon: 60; T Wave Colon : 62; Blood Pressure: 138/68 [ECG DIAGNOSTIC STATEMENTS] Date of Test: 07/09/2013 08:48:02; Summary: Sinus Bradycardia - Negative precordial T-waves. WITHIN NORMAL LIMITS Immunization Name Dates Details Influenza (3 years and up) on: 05-Jan-2008 Family History Unknown Family Member Name Dates Details Father Comments: [place]/CVA at 84 Status: Active Social History Name [...] kg/m2 Body Surface Area Calculated 2.26 m2 01-Fhy-208798:47 Pulse 64 /min Comments: Pattern: Regular Respiration [...] kg/m2 Body Surface Area Calculated 2.26 m2 7-Fcu-363874:07 Pulse 62 /min Comments: Pattern: Regular Respiration [...] kg/m2 Body Surface Area Calculated 2.27 m2 0-Api-629963:15 Pulse 78 /min Comments: Pattern: Regular Respiration [...] Calculated 2.27 m2 :15 Comments: Lance at [facility] 2013hearing -wnl Pulse 57 /min Comments: [...] Calculated 2.28 m2 Head Circumference 0.00 cm 7-Van-36681:14 Pulse 64 /min Comments: Pattern: Regular Respiration [...] Description Value Details :59 HgA1C , Office (27695) HgA1C , Office 7.2 % (Abnormal) Range: 4.6 - 7.1 :59 Blood Glucose , Office (42212) Blood Glucose , Office 128 (Normal) 4-Kch-037006:20 Microscopic Examination Comments: PATIENT WAS FASTINGPERFORMED BY: MyPermissions[address] [id number] BY: Qiro70 [place] [id number] Bacteria None seen (Normal) Mucus Threads Present (Normal) Epithelial Cells (non renal) None seen {/hpf} (Normal) Range: 0 - 10 RBC None seen {/hpf} (Normal) Range: 0 - 2 WBC 0-5 {/hpf} (Normal) Range: 0 - 5 5-Pck-763972:20 CALCIFIDIOL (00668) VIT D Comments: PATIENT WAS FASTINGPERFORMED BY: [employer] [id number] BY: Qiro70 [facility] [id number] 25 Vitamin D, 25-Hydroxy 55.7 ng/mL (Normal) Range: 30.0-100.0 Comments: Vitamin D deficiency has been defined by the [place] ofMedicine and an Endocrine Society practice guideline as alevel of serum 25-OH vitamin D less than 20 ng/mL (1,2).The Endocrine Society went on to further define vitamin Dinsufficiency as a level between 21 and 29 ng/mL (2).1. IOM ([place] of Medicine). 2010. Dietary reference intakes for calcium and D. [place]: The National Academies Press.2. Charles MF, Raissa OCONNELL, Nirmala ALBERT, et al. Evaluation, treatment, and prevention of vitamin D deficiency: an Endocrine Society clinical practice guideline. JCEM. 2010; 96(7):1911-30. 6-Zsf-304638:20 TSH (99237) Comments: PATIENT WAS FASTINGPERFORMED BY: MyPermissionston1447 [facility] [id number] BY: [employer] [facility] [id number] TSH 2.360 {uIU/mL} (Normal) Range: 0.450-4.500 7-Zji-471073:20 URINALYSIS, W/ MICRO Comments: PATIENT WAS FASTINGPERFORMED BY: LeisureLink1447 [facility] [id number] BY: Twiiggformerly [facility] [id number] (07477) Microscopic Examination See below: (Normal) Comments: Microscopic was indicated and was performed. Microscopic Examination MICRON (Normal) Comments: Microscopic follows if indicated. Nitrite, Urine Negative (Normal) Urobilinogen,Semi-Qn 0.2 mg/dL (Normal) Range: 0.2-1.0 Bilirubin Negative (Normal) Occult Blood Negative (Normal) Ketones Negative (Normal) Glucose Negative (Normal) Protein Negative (Normal) WBC Esterase Negative (Normal) Appearance Clear (Normal) Urine-Color Yellow (Normal) pH 5.0 (Normal) Range: 5.0-7.5 Specific [place] 1.019 (Normal) Range: 1.005-1.030 4-Yof-776499:20 MICROALBUMIN: CREATININE Comments: PATIENT WAS FASTINGPERFORMED BY: MyPermissionston1447 [facility] [id number] BY: NextCode HealthFormerly [facility] Hospitalin [place] [id number] RATIO (32685) AND (49726) Alb/Creat Ratio <2.4 {mg/g_creat} (Normal) Range: 0.0-30.0 Comments: Normal: 0.0 - 30.0 Albuminuria: 31.0 - 300.0 Clinical albuminuria: >300.0 Albumin, Urine <3.0 ug/mL (Normal) Creatinine, Urine 123.5 mg/dL (Normal) 0-Sto-236719:20 METABOLIC PANEL, Comments: PATIENT WAS FASTINGPERFORMED BY: [facility] [address] [id number] BY: [facility] Ktbqcg6336 [facility] [id number] COMPREHENSIVE (46350) ALT (SGPT) 22 [iU]/L (Normal) Range: 0-44 [...] 8-27 Glucose 156 mg/dL (Abnormal) Range: 65-99 2-Rms-178089:20 CBC W/AUTO DIFF WBC Comments: PATIENT WAS FASTINGPERFORMED BY: Clacendix[address] [id number] BY: [place] 9860670 [facility] [id number] (50568) Immature Grans (Abs) 0.0 {x10E3/uL} (Normal) Range: [...] 4.14-5.80 WBC 5.8 {x10E3/uL} (Normal) Range: 3.4-10.8 4-Szl-753609:20 LIPOPROTEIN, BLD, BY NMR Comments: PATIENT WAS FASTINGPERFORMED BY: Clacendix[address] [id number] BY: ClacendixSt. Joseph's Wayne HospitalHtiojg7357 [facility] [id number] (86137) LP-IR Score 66 (Abnormal) Comments: INSULIN RESISTANCE MARKER <--Insulin Sensitive Insulin Resistant--> Percentile in Reference PopulationInsulin Resistance ScoreLP-IR Score Low 25th 50th 75th High <27 27 45 63 >63LP-IR Score is inaccurate if patient is non-fasting. .The LP-IR score is a laboratory developed i [facility] that has beenassociated with insulin [...] were developed and their performance characteristicsdetermined by 51edj. These assays have not been cleared by [...] 1600 - 2000 Very High > 2000 08-Ghl-118189:40 HgA1C , Office (06206) HgA1C , Office 6.6 % (Normal) Range: 4.6 - 7.1 57-Mrg-508222:40 Blood Glucose , Office (10145) Blood Glucose , Office 75 (Normal) 57-Yuk-286380:20 COLON BIOPSY (CHOOSE See Note (Normal) Comments: [facility] [address] [place], [place], [address] SITE) Comments: Patient: YOHANNES CADET : 1945 (72/M) Acct Num: [id number] Phys: Mg Norman Unit Num: [id number] Loc: LABSPEC Specimen: [id number] Received: 09/20/171532 Spec Type: C JUJU BX TISSUES TISSUES: Rectum, NOS GROSS DESCRIPTION Received in fixative is one container labeled with the patient's name and designated rectal polyp. The specimen predominantly consists of fecal material mixed with possible soares soft tissue, measuring in aggregate 2.5 x 0.6 x0.1 cm. The specimen is totally submitted in one cassette. BIJU:scott 09/23/17 TC: cannot code CPT: 51169 HEADER OPERATION: Colonoscopy with polypectomy PRE-OP DIAGNOSIS: Rectal bleeding TISSUE SUBMITTED: Rectal polyp MICROSCOPIC DESCRIPTION Slides are reviewed. MICROSCOPIC DIAGNOSIS Rectal polyp, polypectomy: Fragments of fecal material. Colonic mucosal tissue is not identified. BIJU:scott 09/24/18 Signed Magdy Purvis 09/24/17 <signature on file> 52-Buj-963102:08 Microscopic Examination Comments: PATIENT WAS FASTINGPERFORMED BY: GUICHO [facility] Htdcvf5762 [address] RoadDublin [place] [id number] Bacteria None seen (Normal) Mucus Threads Present (Normal) Epithelial Cells (non renal) None seen {/hpf} (Normal) Range: 0 - 10 RBC None seen {/hpf} (Normal) Range: 0 - 2 WBC 0-5 {/hpf} (Normal) Range: 0 - 5 :08 T4, FREE (THYROXINE) (39902) Comments: PATIENT WAS FASTINGPERFORMED BY: [facility] Yehztx5360 [address] RoadDublin [place] [id number] T4,Free(Direct) 1.27 ng/dL (Normal) Range: 0.82-1.77 :08 T3, FREE (TRIDOTHYRONINE) (47139) Comments: PATIENT WAS FASTINGPERFORMED BY: IntelliworksThe Rehabilitation Institute Ylakbw[address] [facility] Psych[facility] HospitalDublin [place] [id number] Triiodothyronine,Free,Serum 2.7 pg/mL (Normal) Range: 2.0-4.4 :08 CALCIFIDIOL (72220) VIT D 25 Comments: PATIENT WAS FASTINGPERFORMED BY: [facility] Hdtdri2082 Rosado RoadDublin [place] [id number] Vitamin D, 25-Hydroxy 57.4 ng/mL (Normal) Range: 30.0-100.0 Comments: Vitamin D deficiency has been defined by the [place] ofUniversity Hospitals Geneva Medical Centercine and an Endocrine Society practice guideline as alevel of serum 25-OH vitamin D less than 20 ng/mL (1,2).The Endocrine Society went on to further define vitamin Dinsufficiency as a level between 21 and 29 ng/mL (2).1. IOM ([place] of Medicine). 2010. Dietary reference intakes for calcium and D. [place]: The National Academies Press.2. Charles MF, Raissa NC, Nirmala ALBERT, et al. Evaluation, treatment, and prevention of vitamin D deficiency: an Endocrine Society clinical practice guideline. JCEM. 2010; 96(7):1911-30. :08 TSH (70724) Comments: PATIENT WAS FASTINGPERFORMED BY: [facility]6370 [facility] [id number] TSH 3.370 {uIU/mL} (Normal) Range: 0.450-4.500 76-Ojp-075990:08 URINALYSIS, W/ MICRO (24648) Comments: PATIENT WAS FASTINGPERFORMED BY: [facility]6[address] [facility] [id number] Microscopic Examination See below: (Normal) Comments: Microscopic was indicated and was performed. Microscopic Examination MICRON (Normal) Comments: Microscopic follows if indicated. Nitrite, Urine Negative (Normal) Urobilinogen,Semi-Qn 0.2 mg/dL (Normal) Range: 0.2-1.0 Bilirubin Negative (Normal) Occult Blood Negative (Normal) Ketones Negative (Normal) Glucose Negative (Normal) Protein Negative (Normal) WBC Esterase Negative (Normal) Appearance Clear (Normal) Urine-Color Yellow (Normal) pH 5.0 (Normal) Range: 5.0-7.5 Specific [place] 1.026 (Normal) Range: 1.005-1.030 45-Cga-817676:08 MICROALBUMIN: CREATININE RATIO Comments: PATIENT WAS FASTINGPERFORMED BY: [facility]6[address] [facility] [id number] (64373) AND (42757) Alb/Creat Ratio 1.3 {mg/g_creat} (Normal) Range: 0.0-30.0 Albumin, Urine 3.1 ug/mL (Normal) Creatinine, Urine 237.2 mg/dL (Normal) 56-Fnf-853209:08 METABOLIC PANEL, COMPREHENSIVE Comments: PATIENT WAS FASTINGPERFORMED BY: [facility]6[address] [facility] [id number] (40940) ALT (SGPT) 17 [iU]/L (Normal) Range: 0-44 [...] 8-27 Glucose 142 mg/dL (Abnormal) Range: 65-99 77-Nkh-696905:08 CBC W/AUTO DIFF WBC (24935) Comments: PATIENT WAS FASTINGPERFORMED BY: [facility] Vjkhgq6846 [facility] [id number] Immature Grans (Abs) 0.0 {x10E3/uL} (Normal) Range: [...] {x10E3/uL} (Normal) Range: 3.4-10.8 :08 LIPID PANEL (05276) Comments: PATIENT WAS FASTINGPERFORMED BY: GUICHO Tomveyi Bidamon Ywejeq2531 [facility] [id number] LDL/HDL Ratio 1.2 {ratio} (Normal) Range: 0.0-3.6 [...] (Normal) Range: 100-199 :08 HgA1C , Office (50880) HgA1C , Office 6.9 % (Normal) Range: 4.6 - 7.1 :08 Blood Glucose , Office (46873) Blood Glucose , Office 123 (Normal) 3-Asj-629996:23 Blood Glucose , Office (06549) Blood Glucose , Office 69 (Normal) :23 HgA1C , Office (22424) HgA1C , Office 7.1 % (Normal) Range: 4.6 - 7.1 :23 Blood Glucose , Office (01317) Blood Glucose , Office 84 (Normal) 98-Rop-048633:06 Microscopic Examination Comments: PATIENT WAS FASTINGPERFORMED BY: LabCoSt. Joseph's Wayne HospitalWsiyxl6563 [facility] [id number] Bacteria Few (Normal) Mucus Threads Present (Normal) Epithelial Cells (non renal) None seen {/hpf} (Normal) Range: 0 - 10 RBC 0-2 {/hpf} (Normal) Range: 0 - 2 WBC 0-5 {/hpf} (Normal) Range: 0 - 5 2-Fvf-107965:25 Methymalonic Acid, Serum Comments: PATIENT NOT FASTINGPERFORMED BY: Clacendix Cyvqfo3314 [facility] [id number] BY: Intelliworks[address] [id number] (91136) Methylmalonic Acid, Serum 586 nmol/L (Abnormal) Range: 0-378 5-Adk-705152:25 METABOLIC PANEL, Comments: PATIENT NOT FASTINGPERFORMED BY: Clacendix Zxogjq4150 [facility] [id number] BY: Clacendix[address] [id number] Inf ormation: [id number], 264525 [facility] (64758) ALT (SGPT) 11 [iU]/L (Normal) Range: 0-44 [...] Glucose, Serum 153 mg/dL (Abnormal) Range: 65-99 2-Jzy-893980:25 CBC (AUTO) (99191) Comments: PATIENT NOT FASTINGPERFORMED BY: [employer] [facility] [id number] BY: Clacendix[address] [id number] Platelets 213 {x10E3/uL} (Normal) Range: 150-379 RDW 14.0 % (Normal) Range: 12.3-15.4 MCHC 33.2 g/dL (Normal) Range: 31.5-35.7 MCH 27.5 pg (Normal) Range: 26.6-33.0 MCV 83 fL (Normal) Range: 79-97 Hematocrit 38.2 % (Normal) Range: 37.5-51.0 Hemoglobin 12.7 g/dL (Normal) Range: 12.6-17.7 RBC 4.62 {x10E6/uL} (Normal) Range: 4.14-5.80 WBC 4.6 {x10E3/uL} (Normal) Range: 3.4-10.8 6-Caq-248076:25 TSH (33829) Comments: PATIENT NOT FASTINGPERFORMED BY: Qiro70 [facility] [id number] BY: Clac[address] [id number] TSH 3.040 {uIU/mL} (Normal) Range: 0.450-4.500 3-Ndf-647028:25 VITAMIN B-12 (CYANOCOBALAMIN) Comments: PATIENT NOT FASTINGPERFORMED BY: Finisar [facility] [id number] BY: [facility] Apzzmpzhwv6760 [facility] [id number] (54050) Vitamin B12 227 pg/mL (Normal) Range: 211-946 :25 PSA (PROSTATE SPECIFIC Comments: PATIENT NOT FASTINGPERFORMED BY: [facility] Uyjpgf2114 [facility] Hospitalblin [place] [id number] BY: LabCoChristopher Ville 969967 [facility] [id number] ANTIGEN) (V76.44) Prostate Specific Ag, 2.0 ng/mL (Normal) Range: 0.0-4.0 Serum Comments: 2 MinutesIA methodology. .According to the [place] U[employer] Association, Serum PSA shoulddecrease and remain at undetectable levels after radicalprostatectomy. The AUA defines biochemical recurrence as an initialPSA value 0.2 ng/mL or greater followed by a subsequent confirmatoryPSA value 0.2 ng/mL or greater.Values obtained with d ifferent assay methods or kits cannot be usedinterchangeably. Results cannot be interpreted as absolute evidenceof the presence or absence of malignant disease. :06 CALCIFIDIOL (02936) VIT D 25 Comments: PATIENT WAS FASTINGPERFORMED BY: LabCoSt. Joseph's Wayne HospitalChjmkg4112 [facility] [id number] Vitamin D, 25-Hydroxy 42.4 ng/mL (Normal) Range: 30.0-100.0 Comments: Vitamin D deficiency has been defined by the [place] ofMedicine and an Endocrine Society practice guideline as alevel of serum 25-OH vitamin D less than 20 ng/mL (1,2).The Endocrine Society went on to further define vitamin Dinsufficiency as a level between 21 and 29 ng/mL (2).1. IOM ([place] of Medicine). 2010. Dietary reference intakes for calcium and D. [place]: The National Academies Press.2. Charles MF, Raissa NC, Nirmala ALBERT, et al. Evaluation, treatment, and prevention of vitamin D deficiency: an Endocrine Society clinical practice guideline. JCEM. 2010; 96(7):1911-30. :06 TSH (94442) Comments: PATIENT WAS FASTINGPERFORMED BY: IntelliworksHutzel [facility] Hospital6370 [facility] [id number] TSH 3.460 {uIU/mL} (Normal) Range: 0.450-4.500 04-Ltd-336759:06 URINALYSIS, W/ MICRO (19341) Comments: PATIENT WAS FASTINGPERFORMED BY: [facility]6370 [facility] [id number] Microscopic Examination See below: (Normal) Comments: Microscopic was indicated and was performed. Microscopic Examination MICRON (Normal) Comments: Microscopic follows if indicated. Nitrite, Urine Negative (Normal) Urobilinogen,Semi-Qn 0.2 mg/dL (Normal) Range: 0.2-1.0 Bilirubin Negative (Normal) Occult Blood Negative (Normal) Ketones Negative (Normal) Glucose Negative (Normal) Protein Negative (Normal) WBC Esterase Negative (Normal) Appearance Clear (Normal) Urine-Color Yellow (Normal) pH 5.0 (Normal) Range: 5.0-7.5 Specific [place] 1.020 (Normal) Range: 1.005-1.030 77-Yfc-216105:06 MICROALBUMIN: CREATININE RATIO Comments: PATIENT WAS FASTINGPERFORMED BY: [facility]6370 [facility] [id number] (60389) AND (85444) Microalb/Creat Ratio <2.4 {mg/g_creat} (Normal) Range: 0.0-30.0 Microalbumin, Urine <3.0 ug/mL (Normal) Creatinine, Urine 127.3 mg/dL (Normal) 00-Juq-191819:06 METABOLIC PANEL, COMPREHENSIVE Comments: PATIENT WAS FASTINGPERFORMED BY: [facility]6370 [facility] [id number] (82730) ALT (SGPT) 15 [iU]/L (Normal) Range: 0-44 [...] Glucose, Serum 136 mg/dL (Abnormal) Range: 65-99 43-Boi-359181:06 LIPID PANEL (68306) Comments: PATIENT WAS FASTINGPERFORMED BY: StyleHaulCoDuPontformerly [facility] [id number] LDL/HDL Ratio 1.5 {ratio_units} (Normal) Range: 0.0-3.6 Comments: LDL/HDL Ratio Men Women 1/2 Avg.Risk 1.0 1.5 Av g.Risk 3.6 3.2 2X Avg.Risk 6.2 5.0 3X Avg.Risk 8.0 6.1 LDL Cholesterol Calc 63 mg/dL (Normal) Range: 0-99 VLDL Cholesterol Ezequiel 25 mg/dL (Normal) Range: 5-40 HDL Cholesterol 42 mg/dL (Normal) Triglycerides 126 mg/dL (Normal) Range: 0-149 Cholesterol, Total 130 mg/dL (Normal) Range: 100-199 79-Dcq-970318:06 CBC W/AUTO DIFF WBC (55969) Comments: PATIENT WAS FASTINGPERFORMED BY: Giveit100 LabCoApruve70 Seeonicformerly [facility] [id number] Immature Grans (Abs) 0.0 {x10E3/uL} (Normal) Range: [...] (Normal) Range: 3.4-10.8 :32 HgA1C , Office (41017) HgA1C , Office 7.3 % (Abnormal) Range: 4.6 - 7.1 :32 Blood Glucose , Office (69228) Blood Glucose , Office 185 (Normal) :33 ALDOSTERONE (21091) Comments: PATIENT NOT FASTINGPERFORMED BY: LabCo[address] [id number] Aldosterone 3.8 ng/dL (Normal) Range: 0.0-30.0 Comments: This test was developed and its performance characteristicsdetermined by Tomveyi Bidamon. It has not been cleared or approvedby the Food and Drug Administration. 3-Xok-427150:33 RENIN (45254) Comments: PATIENT NOT FASTINGPERFORMED BY: Intelliworks[address] [id number] Renin Activity, Plasma 0.402 {ng/mL/hr} Range: 0.167-5.380 (Normal) Comments: This test was developed and its performance characteristicsdetermined by Tomveyi Bidamon. It has not been cleared or approvedby the Food and Drug Administration. :31 METANEPHRINES - URINE (67069) Comments: PATIENT NOT FASTINGPERFORMED BY: Clacendix[address] [id number] Metanephrine, U,24hr 238 {ug/24_hr} (Normal) Range: 45-290 Comments: (Hypertensive) >17 years 11 months: 35 - 460 Metanephrine, Ur 119 ug/L (Normal) Normetanephr.,U,24h 370 {ug/24_hr} (Normal) Range: 82-500 Comments: (Hypertensive) >17 years 11 months: 110 - 1050 Normetanephrine, Ur 185 ug/L (Normal) :31 CATECHOLAMINES TOTAL, URINE Comments: PATIENT NOT FASTINGPERFORMED BY: [address] [id number] Information: START 09/25/2016@447AM (03758) Dopamine, Ur, 24hr 280 {ug/24_hr} (Normal) Range: 0-510 Dopamine, Urine 140 ug/L (Normal) Norepinephrine,U,24h 42 {ug/24_hr} (Normal) Range: 0-135 Norepinephrine, Ur 21 ug/L (Normal) Epinephrine, U, 24hr 4 {ug/24_hr} (Normal) Range: 0-20 Epinephrine, Urine 2 ug/L (Normal) :31 URINE VMA (07575) Comments: PATIENT NOT FASTINGPERFORMED BY: LabDavid Ville [address] [facility] [id number] VMA, Urine, 24hr 3.4 {mg/24_hr} (Normal) Range: 0.0-7.5 Comments: This test was developed and its performance characteristicsdetermined by [facility]worksThe [facility]. It has not been cleared or approvedby the Food and Drug Administration. VMA, Urine 1.7 mg/L (Normal) :05 Microscopic Examination Comments: PATIENT WAS FASTINGPERFORMED BY: [facility]6[address] [facility] [id number] Bacteria None seen (Normal) Mucus Threads Present (Normal) Epithelial Cells (non renal) None seen {/hpf} (Normal) Range: 0 - 10 RBC 0-2 {/hpf} (Normal) Range: 0 - 2 WBC 0-5 {/hpf} (Normal) Range: 0 - 5 :05 LIPID PANEL (13212) Comments: PATIENT WAS FASTINGPERFORMED BY: [facility] [id number] LDL/HDL Ratio 1.3 {ratio_units} (Normal) Range: 0.0-3.6 [...] (Normal) Range: 100-199 :05 URINALYSIS, W/ MICRO (98198) Comments: PATIENT WAS FASTINGPERFORMED BY: [facility]6[address] [facility] [id number] Microscopic Examination See below: (Normal) Comments: Microscopic was indicated and was performed. Microscopic Examination MICRON (Normal) Comments: Microscopic follows if indicated. Nitrite, Urine Negative (Normal) Urobilinogen,Semi-Qn 0.2 mg/dL (Normal) Range: 0.2-1.0 Bilirubin Negative (Normal) Occult Blood Negative (Normal) Ketones Negative (Normal) Glucose Negative (Normal) Protein Negative (Normal) WBC Esterase Negative (Normal) Appearance Clear (Normal) Urine-Color Yellow (Normal) pH 5.5 (Normal) Range: 5.0-7.5 Specific [place] 1.024 (Normal) Range: 1.005-1.030 38-Aoq-759182:05 MICROALBUMIN: CREATININE RATIO Comments: PATIENT WAS FASTINGPERFORMED BY: Qiro70 voxapp [facility] HospitalChunyuformerly [facility] [id number] (09803) AND (90049) Microalb/Creat Ratio <1.7 {mg/g_creat} (Normal) Range: 0.0-30.0 Microalbumin, Urine <3.0 ug/mL (Normal) Creatinine, Urine 171.8 mg/dL (Normal) :05 METABOLIC PANEL, COMPREHENSIVE Comments: PATIENT WAS FASTINGPERFORMED BY: U*tique6370 Seeonicformerly [facility] [id number] (84492) ALT (SGPT) 15 [iU]/L (Normal) Range: 0-44 [...] Glucose, Serum 117 mg/dL (Abnormal) Range: 65-99 17-Dwe-343373:05 CBC W/AUTO DIFF WBC (88149) Comments: PATIENT WAS FASTINGPERFORMED BY: LabCoSt. Joseph's Wayne HospitalNmsnve7743 [facility] [id number] Immature Grans (Abs) 0.0 {x10E3/uL} (Normal) Range: [...] 4.14-5.80 WBC 4.9 {x10E3/uL} (Normal) Range: 3.4-10.8 14-Bgy-460487:05 TSH (31244) Comments: PATIENT WAS FASTINGPERFORMED BY: LabCo Srgaqo8588 [address]ado RoadDublin [place] [id number] TSH 3.460 {uIU/mL} (Normal) Range: 0.450-4.500 :05 T4, FREE (THYROXINE) (87733) Comments: PATIENT WAS FASTINGPERFORMED BY: [facility] Mhfpyg1546 Rosado RoadDublin [place] [id number] T4,Free(Direct) 1.34 ng/dL (Normal) Range: 0.82-1.77 :05 T3, FREE (TRIDOTHYRONINE) (44051) Comments: PATIENT WAS FASTINGPERFORMED BY: [facility] Xutbdl6428 Rosado RoadDublin [place] [id number] Triiodothyronine,Free,Serum 3.0 pg/mL (Normal) Range: 2.0-4.4 :05 CALCIFIDIOL (21066) VIT D 25 Comments: PATIENT WAS FASTINGPERFORMED BY: [facility] Vllkcu[address] [facility] HospitalDublin [place] [id number] Vitamin D, 25-Hydroxy 46.6 ng/mL (Normal) Range: 30.0-100.0 Comments: Vitamin D deficiency has been defined by the [place] ofMedicine and an Endocrine Society practice guideline as alevel of serum 25-OH vitamin D less than 20 ng/mL (1,2).The Endocrine Society went on to further define vitamin Dinsufficiency as a level between 21 and 29 ng/mL (2).1. IOM ([place] of Medicine). 2010. Dietary reference intakes for calcium and D. [place]: The National Academies Press.2. Charles MF, Raissa NC, Nirmala ALBERT, et al. Evaluation, treatment, and prevention of vitamin D deficiency: an Endocrine Society clinical practice guideline. JCEM. 2010; 96(7):1911-30. :42 HgA1C , Office (63753) HgA1C , Office 6.6 % (Normal) Range: 4.6 - 7.1 :42 Blood Glucose , Office (19892) Blood Glucose , Office 117 (Normal) :59 HgA1C , Office (44411) HgA1C , Office 6.8 % (Normal) Range: 4.6 - 7.1 :59 Blood Glucose , Office (04756) Blood Glucose , Office 237 (Normal) :52 Rapid Flu (75493 x 2) Influenza A Ag neg (Normal) :19 HgA1C , Office (95438) HgA1C , Office 6.6 % (Normal) Range: 4.6 - 7.1 :19 Blood Glucose , Office (64733) Blood Glucose , Office 171 (Normal) :43 Microscopic Examination Comments: PATIENT WAS FASTINGPERFORMED BY: [facility]yxoah [facility] [id number] Bacteria Few (Normal) Mucus Threads Present (Normal) Epithelial Cells (non renal) 0-10 {/hpf} (Normal) Range: 0 - 10 RBC 0-2 {/hpf} (Normal) Range: 0 - 2 WBC 0-5 {/hpf} (Normal) Range: 0 - 5 :53 Serum Creatinine AND GFR Comments: [facility] [address] [place], [address] EST GFR - AA 83 mL/min (Normal) Comments: GFR Calc EST GFR 69 mL/min (Normal) Comments: Non- GFR Calc CREAT,SERUM 1.12 mg/dL (Normal) Range: 0.70-1.30 Comments: The validity of the calculated GFR AND GFRAA in patients over70 years has not been determined. Clinical correlation isessential. :43 CALCIFIDIOL (61710) VIT D 25 Comments: PATIENT WAS FASTINGPERFORMED BY: Clacendix Chthnn9572 [facility] [id number] Vitamin D, 25-Hydroxy 55.4 ng/mL (Normal) Range: 30.0-100.0 Comments: Vitamin D deficiency has been defined by the [place] ofMedicine and an Endocrine Society practice guideline as alevel of serum 25-OH vitamin D less than 20 ng/mL (1,2).The Endocrine Society went on to further define vitamin Dinsufficiency as a level between 21 and 29 ng/mL (2).1. IOM ([place] of Medicine). 2010. Dietary reference intakes for calcium and D. [place]: The National AcademXumii Press.2. Charles MF, Raissa NC, Nirmala ALBERT, et al. Evaluation, treatment, and prevention of vitamin D deficiency: an Endocrine Society clinical practice guideline. JCEM. 2010; 96(7):1911-30. 2-Khu-719273:43 URINALYSIS, W/ MICRO (49514) Comments: PATIENT WAS FASTINGPERFORMED BY: [employer] [place] [id number] Microscopic Examination See below: (Normal) Comments: Microscopic was indicated and was performed. Microscopic Examination MICRON (Normal) Comments: Microscopic follows if indicated. Nitrite, Urine Negative (Normal) Urobilinogen,Semi-Qn 0.2 mg/dL (Normal) Range: 0.2-1.0 Bilirubin Negative (Normal) Occult Blood Negative (Normal) Ketones Negative (Normal) Glucose Negative (Normal) Protein Negative (Normal) WBC Esterase Negative (Normal) Appearance Clear (Normal) Urine-Color Yellow (Normal) pH 5.5 (Normal) Range: 5.0-7.5 Specific [place] 1.022 (Normal) Range: 1.005-1.030 6-Rnz-240948:43 MICROALBUMIN: CREATININE RATIO Comments: PATIENT WAS FASTINGPERFORMED BY: Twiiggformerly [facility] [id number] (10526) AND (83014) Microalb/Creat Ratio <2.4 {mg/g_creat} (Normal) Range: 0.0-30.0 Microalbumin, Urine <3.0 ug/mL (Normal) Creatinine, Urine 122.5 mg/dL (Normal) :43 METABOLIC PANEL, COMPREHENSIVE Comments: PATIENT WAS FASTINGPERFORMED BY: [facility] SystemsDe[facility] Hospital [id number] (50181) ALT (SGPT) 12 [iU]/L (Normal) Range: 0-44 [...] Glucose, Serum 120 mg/dL (Abnormal) Range: 65-99 2-Tvp-165166:43 TSH (25442) Comments: PATIENT WAS FASTINGPERFORMED BY: U*tique6370 [facility] [id number] TSH 4.010 {uIU/mL} (Normal) Range: 0.450-4.500 7-Nbj-011276:43 LIPID PANEL (57418) Comments: PATIENT WAS FASTINGPERFORMED BY: Qiro70 [facility] [id number] LDL/HDL Ratio 1.2 {ratio_units} (Normal) Range: 0.0-3.6 [...] Cholesterol, Total 117 mg/dL (Normal) Range: 100-199 5-Mzl-594084:43 CBC W/AUTO DIFF WBC (42672) Comments: PATIENT WAS FASTINGPERFORMED BY: LabCoSt. Joseph's Wayne HospitalAoopoz3157 [facility] [id number] Immature Grans (Abs) 0.0 {x10E3/uL} (Normal) Range: [...] (Normal) Range: 3.4-10.8 :27 HgA1C , Office (89843) HgA1C , Office 6.6 % (Normal) Range: 4.6 - 7.1 :27 Blood Glucose , Office (19807) Blood Glucose , Office 168 (Normal) :08 Microscopic Examination Comments: PATIENT WAS FASTINGPERFORMED BY: Clacendix Rwdcex6829 [facility]in [place] [id number] Bacteria None seen (Normal) Mucus Threads Present (Normal) Epithelial Cells (non renal) None seen {/hpf} (Normal) Range: 0 - 10 RBC None seen {/hpf} (Normal) Range: 0 - 2 WBC 0-5 {/hpf} (Normal) Range: 0 - 5 :08 CALCIFIDIOL (78803) VIT D 25 Comments: PATIENT WAS FASTINGPERFORMED BY: Plurchase6370 [facility] [id number] Vitamin D, 25-Hydroxy 62.4 ng/mL (Normal) Range: 30.0-100.0 Comments: Vitamin D deficiency has been defined by the [place] of[place]icine and an Endocrine Society practice guideline as alevel of serum 25-OH vitamin D less than 20 ng/mL (1,2).The Endocrine Society went on to further define vitamin Dinsufficiency as a level between 21 and 29 ng/mL (2).1. IOM ([place] of Medicine). 2010. Dietary reference intakes for calcium and D. [place]: The National Academies Press.2. Charles MF, Raissa NC, Nirmala ALBERT, et al. Evaluation, treatment, and prevention of vitamin D deficiency: an Endocrine Society clinical practice guideline. JCEM. 2010; 96(7):1911-30. :08 URINALYSIS, W/ MICRO (97632) Comments: PATIENT WAS FASTINGPERFORMED BY: Clacendix Iwzwje2635 [facility] [id number] Microscopic Examination See below: (Normal) Comments: Microscopic was indicated and was performed. Microscopic Examination MICRON (Normal) Comments: Microscopic follows if indicated. Nitrite, Urine Negative (Normal) Urobilinogen,Semi-Qn 0.2 mg/dL (Normal) Range: 0.2-1.0 Bilirubin Negative (Normal) Occult Blood Negative (Normal) Ketones Negative (Normal) Glucose Negative (Normal) Protein Negative (Normal) WBC Esterase Negative (Normal) Appearance Clear (Normal) Urine-Color Yellow (Normal) pH 6.0 (Normal) Range: 5.0-7.5 Specific [place] 1.022 (Normal) Range: 1.005-1.030 06-Rzw-713753:08 MICROALBUMIN: CREATININE RATIO Comments: PATIENT WAS FASTINGPERFORMED BY: Voxify Baommh6760 RosadoMomo Networksformerly [facility] [id number] (41015) AND (62370) Microalb/Creat Ratio <1.8 {mg/g_creat} (Normal) Range: 0.0-30.0 Microalbumin, Urine <3.0 ug/mL (Normal) Creatinine, Urine 164.4 mg/dL (Normal) :08 METABOLIC PANEL, COMPREHENSIVE Comments: PATIENT WAS FASTINGPERFORMED BY: U*tique6370 Seeonicformerly [facility] [id number] (80191) ALT (SGPT) 16 [iU]/L (Normal) Range: 0-44 [...] Glucose, Serum 108 mg/dL (Abnormal) Range: 65-99 04-Zmj-912827:08 LIPID PANEL (15763) Comments: PATIENT WAS FASTINGPERFORMED BY: Dashbid70 [facility] [id number] LDL/HDL Ratio 1.4 {ratio_units} (Normal) Range: 0.0-3.6 [...] Cholesterol, Total 124 mg/dL (Normal) Range: 100-199 57-Xgh-519000:08 CBC W/AUTO DIFF WBC Comments: PATIENT WAS FASTINGPERFORMED BY: Plurchase6370 [facility] [id number] Information: [id number] (75059) Immature Grans (Abs) 0.0 {x10E3/uL} (Normal) Range: [...] 5.5 {x10E3/uL} (Normal) Range: 3.4-10.8 :08 TSH (41778) Comments: PATIENT WAS FASTINGPERFORMED BY: [employer] Jiuxjm6973 [facility] [id number] TSH 4.000 {uIU/mL} (Normal) Range: 0.450-4.500 :03 HgA1C , Office (89798) HgA1C , Office 6.2 % (Normal) Range: 4.6 - 7.1 :03 Blood Glucose , Office (52440) Blood Glucose , Office 102 (Normal) :49 Throat Culture (71737) Comments: PATIENT NOT FASTINGPERFORMED BY: VoxifySt. Joseph's Wayne HospitalMwzvpz9381 [facility] [id number] Information: SRC:THRGuillermo [id number] Result 1 RRF (Normal) Comments: Routine respiratory alfredo Upper Respiratory Culture Final report (Normal) :02 Rapid Strep Test, Office (36495) Rapid Strep Test, Office Negative (Normal) 6-Yny-827545:48 Influenza A&B Viral Comments: PATIENT NOT FASTINGPERFORMED BY: LabHutzel [facility] Hospital6370 [facility] [id number] Information: SRC:NOS [id number] Culture (28599) Viral Culture,Rapid,Influenza FLUABN (Normal) Comments: Negative:No Influenza A or B detected. 4-Awg-622848:26 Rapid Flu (41156 x 2) Influenza A Ag negative (Normal) :30 HgA1C , Office (37392) HgA1C , Office 7.3 % (Abnormal) Range: 4.6 - 7.1 :30 Blood Glucose , Office (54470) Blood Glucose , Office 191 (Normal) :52 Microscopic Examination Comments: PATIENT WAS FASTINGPERFORMED BY: Clacendix Vtjtvu7145 [facility] [id number] Bacteria None seen (Normal) Mucus Threads Present (Normal) Epithelial Cells (non renal) 0-10 {/hpf} (Normal) Range: 0 - 10 RBC 0-2 {/hpf} (Normal) Range: 0 - 2 WBC 0-5 {/hpf} (Normal) Range: 0 - 5 :52 CALCIFIDIOL (65640) VIT D 25 Comments: PATIENT WAS FASTINGPERFORMED BY: IntelliworksHutzel Women'S Hospital6370 [facility] [id number] Vitamin D, 25-Hydroxy 44.9 ng/mL (Normal) Range: 30.0-100.0 Comments: Vitamin D deficiency has been defined by the [place] ofMedicine and an Endocrine Society practice guideline as alevel of serum 25-OH vitamin D less than 20 ng/mL (1,2).The Endocrine Society went on to further define vitamin Dinsufficiency as a level between 21 and 29 ng/mL (2).1. IOM ([place] of Medicine). 2010. Dietary reference intakes for calcium and D. [place]: The National Academies Press.2. Charles MF, Raissa NC, Nirmala ALBERT, et al. Evaluation, treatment, and prevention of vitamin D deficiency: an Endocrine Society clinical practice guideline. JCEM. 2010; 96(7):1911-30. :52 LIPID PANEL (75173) Comments: PATIENT WAS FASTINGPERFORMED BY: IntelliworksHutzel Women'S Hospital6370 [facility] [id number] LDL/HDL Ratio 2.4 {ratio_units} (Normal) Range: 0.0-3.6 [...] 196 mg/dL (Normal) Range: 100-199 :52 TSH (76018) Comments: PATIENT WAS FASTINGPERFORMED BY: IntelliworksHutzel Women'S Hospital6370 [facility] [id number] TSH 4.480 {uIU/mL} (Normal) Range: 0.450-4.500 :52 URINALYSIS, W/ MICRO (92868) Comments: PATIENT WAS FASTINGPERFORMED BY: [address] [id number] Microscopic Examination See below: (Normal) Comments: Microscopic was indicated and was performed. Microscopic Examination MICRON (Normal) Comments: Microscopic follows if indicated. Nitrite, Urine Negative (Normal) Urobilinogen,Semi-Qn 0.2 mg/dL (Normal) Range: 0.2-1.0 Bilirubin Negative (Normal) Occult Blood Negative (Normal) Ketones Negative (Normal) Glucose Negative (Normal) Protein Negative (Normal) WBC Esterase Negative (Normal) Appearance Clear (Normal) Urine-Color Yellow (Normal) pH 6.0 (Normal) Range: 5.0-7.5 Specific [place] 1.024 (Normal) Range: 1.005-1.030 :52 MICROALBUMIN: CREATININE RATIO Comments: PATIENT WAS FASTINGPERFORMED BY: Plurchase6370 [facility] HospitalChunyuformerly [facility] [id number] (19247) AND (65366) Microalb/Creat Ratio <2.2 {mg/g_creat} (Normal) Range: 0.0-30.0 Microalbumin, Urine <3.0 ug/mL (Normal) Range: 0.0-17.0 Creatinine, Urine 135.9 mg/dL (Normal) Range: 22.0-328.0 27-Fel-25440:52 METABOLIC PANEL, COMPREHENSIVE Comments: PATIENT WAS FASTINGPERFORMED BY: U*tique6370 [facility] HospitalChunyuformerly [facility] [id number]; will review at 02/21 appt (83874) ALT (SGPT) 13 [iU]/L (Normal) Range: 0-44 [...] Comments: PATIENT WAS FASTINGPERFORMED BY: LabCoSt. Joseph's Wayne HospitalLwnfmr0420 [facility] [id number] Information: [id number] (32109) Immature Grans (Abs) 0.0 {x10E3/uL} (Normal) Range: [...] (Normal) Range: 3.4-10.8 :56 HgA1C , Office (89591) HgA1C , Office 5.9 % (Normal) Range: 4.6 - 7.1 :56 Blood Glucose , Office (17829) Blood Glucose , Office 103 (Normal) :35 HgA1C , Office (85468) HgA1C , Office 6.0 % (Normal) Range: 4.6 - 7.1 :34 Blood Glucose , Office (42028) Blood Glucose , Office 135 (Normal) :45 Potassium Comments: Test performed at:[facility] Dgoqbwkrrk[address] [place], [place] [id number] K 4.3 mmol/L (Normal) Range: 3.5-5.1 :54 Comp. Metabolic Panel (14) Comments: PATIENT WAS FASTINGPERFORMED BY: LabCoSt. Joseph's Wayne HospitalGtthnq5530 [facility] [id number] Information: [id number] ALT (SGPT) 11 [iU]/L (Normal) Range: 0-44 [...] Glucose, Serum 117 mg/dL (Abnormal) Range: 65-99 89-Qlr-86617:54 Lipid Panel With LDL/HDL Comments: PATIENT WAS FASTINGPERFORMED BY: IntelliworksThe [facility] Institute Bwnnja5695 [facility] [id number] Ratio LDL/HDL Ratio 2.1 {ratio_units} Range: 0.0-3.6 [...] 2.860 {uIU/mL} Comments: PATIENT WAS FASTINGPERFORMED BY: Clacendix Ibyukg6503 [facility] [id number] 9:54 (Normal) Range: 0.450-4.500 02-Aug-2014 Vitamin D, 25-Hydroxy 61.9 ng/mL (Normal) Comments: PATIENT WAS FASTINGPERFORMED BY: LabCreative CitizenSt. Joseph's Wayne HospitalBohgpj7584 [facility] [id number] 9:54 Range: 30.0-100.0 Comments: Vitamin D deficiency has been defined by the [place] ofMedicine and an Endocrine Society practice guideline as alevel of serum 25-OH vitamin D less than 20 ng/mL (1,2).The Endocrine Society went on to further define vitamin Dinsufficiency as a level between 21 and 29 ng/mL (2).1. IOM ([place] of Medicine). 2010. Dietary reference intakes for calcium and D. [place]: The National Academies Press.2. Charles MF, Raissa OCONNELL, Nirmala ALBERT, et al. Evaluation, treatment, and prevention of vitamin D deficiency: an Endocrine Society clinical practice guideline. JCEM. 2010; 96(7):1911-30. :13 HgA1C , Office (64423) HgA1C , Office 6.8 % (Normal) Range: 4.6 - 7.1 :13 Blood Glucose , Office (13152) Blood Glucose , Office 218 (Normal) :24 Microscopic Examination Comments: PATIENT WAS FASTINGPERFORMED BY: Clacendix Yyvypv8252 [facility] [place] [id number] Bacteria None seen (Normal) Mucus Threads Present (Normal) Epithelial Cells (non renal) None seen {/hpf} (Normal) Range: 0 - 10 RBC 0-2 {/hpf} (Normal) Range: 0 - 2 WBC 0-5 {/hpf} (Normal) Range: 0 - 5 :24 Vitamin D Hydroxy (55773) Comments: PATIENT WAS FASTINGPERFORMED BY: Clacendix Zkrzzr7923 [facility] [id number] Vitamin D, 25-Hydroxy 35.7 ng/mL (Normal) Range: 30.0-100.0 Comments: Vitamin D deficiency has been defined by the [place] ofMedicine and an Endocrine Society practice guideline as alevel of serum 25-OH vitamin D less than 20 ng/mL (1,2).The Endocrine Society went on to further define vitamin Dinsufficiency as a level between 21 and 29 ng/mL (2).1. IOM ([place] of Medicine). 2010. Dietary reference intakes for calcium and D. [place]: The National Academies Press.2. Charles MF, Raissa OCONNELL, Nirmala ALBERT, et al. Evaluation, treatment, and prevention of vitamin D deficiency: an Endocrine Society clinical practice guideline. JCEM. 2010; 96(7):1911-30. :24 URINALYSIS, W/ MICRO (94760) Comments: PATIENT WAS FASTINGPERFORMED BY: LabCo Alktcj8558 [facility] [id number] Microscopic Examination See below: (Normal) Comments: Microscopic was indicated and was performed. Microscopic Examination MICRON (Normal) Comments: Microscopic follows if indicated. Nitrite, Urine Negative (Normal) Urobilinogen,Semi-Qn 0.2 mg/dL (Normal) Range: 0.0-1.9 Bilirubin Negative (Normal) Occult Blood Negative (Normal) Ketones Negative (Normal) Glucose Negative (Normal) Protein Negative (Normal) WBC Esterase Negative (Normal) Appearance Clear (Normal) Urine-Color Yellow (Normal) pH 6.0 (Normal) Range: 5.0-7.5 Specific [place] 1.025 (Normal) Range: 1.005-1.030 52-Sdy-104779:24 TSH (02395) Comments: PATIENT WAS FASTINGPERFORMED BY: Voxify Sovi [facility] [id number] TSH 2.740 {uIU/mL} (Normal) Range: 0.450-4.500 :24 MICROALBUMIN: CREATININE RATIO Comments: PATIENT WAS FASTINGPERFORMED BY: V[employer] Sovi [facility] [id number] (61307) AND (48094) Microalb/Creat Ratio <1.5 {mg/g_creat} (Normal) Range: 0.0-30.0 Microalbumin, Urine <3.0 ug/mL (Normal) Range: 0.0-17.0 Creatinine, Urine 205.5 mg/dL (Normal) Range: 22.0-328.0 87-Gkd-292205:24 METABOLIC PANEL, COMPREHENSIVE Comments: PATIENT WAS FASTINGPERFORMED BY: Voxify Tzaljv7358 [facility] [id number] (66459) ALT (SGPT) 13 [iU]/L (Normal) Range: 0-44 [...] Glucose, Serum 138 mg/dL (Abnormal) Range: 65-99 49-Toh-242326:24 LIPID PANEL (33351) Comments: PATIENT WAS FASTINGPERFORMED BY: Qiro70 Seeonicformerly [facility] [id number] LDL/HDL Ratio 3.2 {ratio_units} (Normal) Range: 0.0-3.6 [...] Cholesterol, Total 221 mg/dL (Abnormal) Range: 100-199 42-Uxb-323536:24 CBC W/AUTO DIFF WBC Comments: PATIENT WAS FASTINGPERFORMED BY: Qiro70 voxapp [facility] [id number] Information: [id number] (27242) Immature Grans (Abs) 0.0 {x10E3/uL} (Normal) Range: [...] 4.14-5.80 WBC 5.0 {x10E3/uL} (Normal) Range: 3.4-10.8 15-Ang-053731:00 Fecal Occult Blood , Office (37441) Fecal Occult Blood , Office (Inhouse) negative (Normal) 78-Ydn-918382:57 PSA (PROSTATE SPECIFIC Comments: PATIENT NOT FASTINGPERFORMED BY: [facility]6370 [facility] [id number] Information: [id number] ANTIGEN) (V76.44) Prostate Specific Ag, 1.5 ng/mL (Normal) Range: 0.0-4.0 Serum Comments: 2 MinutesIA methodology. .According to the [place] [employer], Serum PSA shoulddecrease and remain [...] of malignant disease. :17 HgA1C , Office (38208) HgA1C , Office 7.0 % (Normal) Range: 4.6 - 7.1 :17 Blood Glucose , Office (06491) Blood Glucose , Office 118 (Normal) :50 HgA1C , Office (57431) HgA1C , Office 7.6 % (Abnormal) Range: 4.6 - 7.1 :50 Blood Glucose , Office (44691) Blood Glucose , Office 142 (Normal) :44 Microscopic Examination Comments: PATIENT WAS FASTINGPERFORMED BY: U*tique6370 [facility] [id number] Bacteria None seen (Normal) Mucus Threads Present (Normal) Epithelial Cells (non renal) None seen {/hpf} (Normal) Range: 0 - 10 RBC 0-2 {/hpf} (Normal) Range: 0 - 2 WBC 0-5 {/hpf} (Normal) Range: 0 - 5 :32 URINALYSIS, W/ MICRO (42442) Comments: PATIENT WAS FASTINGPERFORMED BY: U*tique6370 [facility] [id number] Microscopic Examination See below: (Normal) Comments: Microscopic was indicated and was performed. Microscopic Examination MICRON (Normal) Comments: Microscopic follows if indicated. Nitrite, Urine Negative (Normal) Urobilinogen,Semi-Qn 0.2 mg/dL (Normal) Range: 0.0-1.9 Bilirubin Negative (Normal) Ketones Negative (Normal) Occult Blood Negative (Normal) Glucose Trace (Abnormal) Protein Negative (Normal) WBC Esterase Negative (Normal) Appearance Clear (Normal) Urine-Color Yellow (Normal) pH 6.0 (Normal) Range: 5.0-7.5 Specific [place] 1.024 (Normal) Range: 1.005-1.030 :32 MICROALBUMIN: CREATININE RATIO Comments: PATIENT WAS FASTINGPERFORMED BY: Clacendix Acwbky6649 [facility] [id number] (57909) AND (75091) Microalb/Creat Ratio 1.3 {mg/g_creat} (Normal) Range: 0.0-30.0 Creatinine, Urine 188.3 mg/dL (Normal) Range: 22.0-328.0 Microalbumin, Urine 2.4 ug/mL (Normal) Range: 0.0-17.0 :32 TSH (63617) Comments: PATIENT WAS FASTINGPERFORMED BY: Clacendix Dfywwt8855 [facility] [id number] TSH 3.250 {uIU/mL} (Normal) Range: 0.450-4.500 :32 METABOLIC PANEL, COMPREHENSIVE Comments: PATIENT WAS FASTINGPERFORMED BY: ClacendixSt. Joseph's Wayne HospitalQoxffo0019 [facility] [id number]; will review at 10/08 appt (09243) ALT (SGPT) 22 [iU]/L (Normal) Range: 0-44 [...] Glucose, Serum 152 mg/dL (Abnormal) Range: 65-99 1-Pih-234520:32 LIPID PANEL (39224) Comments: PATIENT WAS FASTINGPERFORMED BY: ClacendixSt. Joseph's Wayne HospitalInoyjz4701 [facility] [id number] LDL/HDL Ratio 2.0 {ratio_units} (Normal) Range: 0.0-3.6 [...] MANUAL DIFF Comments: PATIENT WAS FASTINGPERFORMED BY: ClacendixSt. Joseph's Wayne HospitalKosfex1307 [facility] [id number] Information: [id number] (28019) Immature Grans (Abs) 0.0 {x10E3/uL} (Normal) Range: [...] (Normal) Range: 3.4-10.8 :37 HgA1C , Office (49079) HgA1C , Office 7.1 % (Normal) Range: 4.6 - 7.1 :37 Blood Glucose , Office (43107) Blood Glucose , Office 142 (Normal) 50-Hib-916586:39 Microscopic Examination Comments: PATIENT WAS FASTINGPERFORMED BY: [facility] Lvjlfx3221 [facility] [id number] Bacteria None seen (Normal) Mucus Threads Present (Normal) Epithelial Cells (non renal) None seen {/hpf} (Normal) Range: 0 - 10 RBC None seen {/hpf} (Normal) Range: 0 - 3 WBC 0-5 {/hpf} (Normal) Range: 0 - 5 :13 Vitamin D Hydroxy (98836) Comments: PATIENT WAS FASTINGPERFORMED BY: Giveit100 [facility] Xcibae9711 [facility] [id number] Vitamin D, 25-Hydroxy 35.9 ng/mL (Normal) Range: 30.0-100.0 Comments: Vitamin D deficiency has been defined by the [place] of[employer]icine and an Endocrine Society practice guideline as alevel of serum 25-OH vitamin D less than 20 ng/mL (1,2).The Endocrine Society went on to further define vitamin Dinsufficiency as a level between 21 and 29 ng/mL (2).1. IOM ([place] of Medicine). 2010. Dietary reference intakes for calcium and D. [place]: The National Academies Press.2. Charles MF, Raissa OCONNELL, Nirmala ALBERT, et al. Evaluation, treatment, and prevention of vitamin D deficiency: an Endocrine Society clinical practice guideline. JCEM. 2010; 96(7):1911-30. :13 TSH (84731) Comments: PATIENT WAS FASTINGPERFORMED BY: [facility] SystemsDe[facility] [id number] TSH 4.190 {uIU/mL} (Normal) Range: 0.450-4.500 :13 URINALYSIS, W/ MICRO (45231) Comments: PATIENT WAS FASTINGPERFORMED BY: Twiiggformerly [facility] [id number] Microscopic Examination MICRON (Normal) Comments: Microscopic follows if indicated. Microscopic Examination See below: (Normal) Nitrite, Urine Negative (Normal) Urobilinogen,Semi-Qn 0.2 mg/dL (Normal) Range: 0.0-1.9 Bilirubin Negative (Normal) Occult Blood Negative (Normal) Ketones Negative (Normal) Glucose Negative (Normal) Protein Negative (Normal) Appearance Clear (Normal) WBC Esterase Negative (Normal) Urine-Color Yellow (Normal) pH 7.0 (Normal) Range: 5.0-7.5 Specific [place] 1.023 (Normal) Range: 1.005-1.030 :13 MICROALBUMIN: CREATININE RATIO Comments: PATIENT WAS FASTINGPERFORMED BY: Qiro70 Seeonicformerly [facility] [id number] (10534) AND (82801) Microalb/Creat Ratio 1.4 {mg/g_creat} (Normal) Range: 0.0-30.0 Creatinine, Urine 177.1 mg/dL (Normal) Range: 22.0-328.0 Microalbumin, Urine 2.5 ug/mL (Normal) Range: 0.0-17.0 :13 METABOLIC PANEL, COMPREHENSIVE Comments: PATIENT WAS FASTINGPERFORMED BY: Qiro70 Seeonicformerly [facility] [id number] (08938) ALT (SGPT) 17 [iU]/L (Normal) Range: 0-44 [...] mg/dL (Abnormal) Range: 65-99 :13 LIPID PANEL (23990) Comments: PATIENT WAS FASTINGPERFORMED BY: U*tique6370 [facility] HospitalChunyuformerly [facility] [id number] LDL/HDL Ratio 1.8 {ratio_units} (Normal) Range: 0.0-3.6 LDL Cholesterol Calc 86 mg/dL (Normal) Range: 0-99 VLDL Cholesterol Ezequiel 18 mg/dL (Normal) Range: 5-40 HDL Cholesterol 48 mg/dL (Normal) Comments: According to ATP-III Guidelines, HDL-C >59 mg/dL is considered anegative risk factor for CHD. Triglycerides 92 mg/dL (Normal) Range: 0-149 Cholesterol, Total 152 mg/dL (Normal) Range: 100-199 93-Moz-08877:13 CBC WITH MANUAL DIFF Comments: PATIENT WAS FASTINGPERFORMED BY: [facility]6370 [facility] [id number] Information: [id number] (77778) Immature Grans (Abs) 0.0 {x10E3/uL} (Normal) Range: [...] (Normal) Range: 3.4-10.8 :31 HgA1C , Office (16969) HgA1C , Office 6.7 % (Normal) Range: 4.6 - 7.1 :31 Blood Glucose , Office (82601) Blood Glucose , Office 141 (Normal) :55 HgA1C , Office (73234) HgA1C , Office 6.4 % (Normal) Range: 4.6 - 7.1 :55 Blood Glucose , Office (46389) Blood Glucose , Office 116 (Normal) :33 Microscopic Examination Comments: PATIENT WAS FASTINGPERFORMED BY: Twiiggformerly [facility] [id number] Bacteria None seen (Normal) Mucus Threads Present (Normal) Epithelial Cells (non renal) None seen {/hpf} (Normal) Range: 0 - 10 RBC 0-3 {/hpf} (Normal) Range: 0 - 3 WBC 0-5 {/hpf} (Normal) Range: 0 - 5 :33 PSA (PROSTATE SPECIFIC Comments: PATIENT WAS FASTINGPERFORMED BY: Twiiggformerly [facility] [id number] ANTIGEN) (V76.44) Prostate Specific Ag, 1.5 ng/mL (Normal) Range: 0.0-4.0 Serum Comments: Dee ECLIA methodology. .According to the [place] [employer], Serum PSA shoulddecrease and remain at undetectable levels after radicalprostatectomy. The AUA defines biochemical recurrence as an initialPSA value 0.2 ng/mL or greater followed by a subsequent confirmatoryPSA value 0.2 ng/mL or greater.Values obtained with d ifferent assay methods or kits cannot be usedinterchangeably. Results cannot be interpreted as absolute evidenceof the presence or absence of malignant disease. :33 TSH (69330) Comments: PATIENT WAS FASTINGPERFORMED BY: [employer] Tacmrj0082 [facility] [id number] TSH 2.770 {uIU/mL} (Normal) Range: 0.450-4.500 :33 URINALYSIS, W/ MICRO (49525) Comments: PATIENT WAS FASTINGPERFORMED BY: ClacendixSt. Joseph's Wayne HospitalTcwhyh4272 [facility] [id number] Microscopic Examination See below: (Normal) Microscopic Examination MICRON (Normal) Comments: Microscopic follows if indicated. Nitrite, Urine Negative (Normal) Urobilinogen,Semi-Qn 0.2 mg/dL (Normal) Range: 0.0-1.9 Bilirubin Negative (Normal) Occult Blood Negative (Normal) Ketones Negative (Normal) Glucose Negative (Normal) Protein Negative (Normal) WBC Esterase Negative (Normal) Appearance Clear (Normal) Urine-Color Yellow (Normal) pH 6.0 (Normal) Range: 5.0-7.5 Specific [place] 1.026 (Normal) Range: 1.005-1.030 :33 MICROALBUMIN: CREATININE RATIO Comments: PATIENT WAS FASTINGPERFORMED BY: ClacendixSt. Joseph's Wayne HospitalRmqoof5424 [facility] [id number] (49946) AND (92934) Microalb/Creat Ratio 1.8 {mg/g_creat} (Normal) Range: 0.0-30.0 Microalbumin, Urine 3.6 ug/mL (Normal) Range: 0.0-17.0 Creatinine, Urine 203.4 mg/dL (Normal) Range: 22.0-328.0 :33 METABOLIC PANEL, COMPREHENSIVE Comments: PATIENT WAS FASTINGPERFORMED BY: ClacendixSt. Joseph's Wayne HospitalFzarsc2746 [facility] [id number] (05674) ALT (SGPT) 16 [iU]/L (Normal) Range: 0-44 [...] Glucose, Serum 114 mg/dL (Abnormal) Range: 65-99 67-Wep-318113:33 LIPID PANEL (53152) Comments: PATIENT WAS FASTINGPERFORMED BY: Qiro70 [facility] [id number] LDL/HDL Ratio 1.3 {ratio_units} (Normal) Range: 0.0-3.6 LDL Cholesterol Calc 63 mg/dL (Normal) Range: 0-99 VLDL Cholesterol Ezequiel 25 mg/dL (Normal) Range: 5-40 HDL Cholesterol 47 mg/dL (Normal) Comments: According to ATP-III Guidelines, HDL-C >59 mg/dL is considered anegative risk factor for CHD. Triglycerides 123 mg/dL (Normal) Range: 0-149 Cholesterol, Total 135 mg/dL (Normal) Range: 100-199 85-Gug-104487:33 CBC WITH MANUAL DIFF Comments: PATIENT WAS FASTINGPERFORMED BY: VoxifySt. Joseph's Wayne HospitalBziakf3118 [facility] [id number] Information: [id number] (58558) Immature Grans (Abs) 0.0 {x10E3/uL} (Normal) Range: [...] (Normal) Range: 4.0-10.5 :22 HgA1C , Office (21693) HgA1C , Office 6.3 % (Normal) Range: 4.6 - 7.1 :22 Blood Glucose , Office (12375) Blood Glucose , Office 109 (Normal) :49 ALDOS 9.3 ng/dL (Normal) Range: 0.0-30.0 :49 CATU [id number] 674 Range: 0-510 {ug/24_hr} Comments: TESTING PERFORMED AT [facility]. ORIGINAL REPORT ONFILE IN LAB CONTAINS [...] metanephrines and plasma catecolamines. TESTING PERFORMED AT [facility]. ORIGINAL REPORT ONFILE IN LAB [...] >150 0.39 - 1.31Performed at: - [facility] [address] [id number] Director: Bruno Williamson MD, Phone: [phone] - (Normal) Pam car y - 2 [...] 126 mg/dLsuggests DIABETES MELLITUS per A.D.A. criteria. 46-Vvc-165438:15 CBCD ANC 3.6 3/uL (Normal) Range: 2.0-7.7 [...] 4.6-6.2 WBC 6.4 {k/mm3} (Normal) Range: 4.4-11.0 05-Liy-77890:00 BRAIN W/WO CONTRAST Radiology Report See Note [...] Stauffer M.D.August 08, 2012 at 10:05:25 PM [id number] Signed AH/AH If you are the referring physician and would like to consult with theradiologist who provided this interpretation, please contact Roseanne Mast. at [phone]. If this radiologist is unavailable,you will be directed to another radiologist to assist. If you are a patient with a question regarding this report, pleasecontactyour referring physician directly . Professional Interpretation Provided By: [employer], Phone , These documents contain legally protected [...] on 08/08/122207 Sign by: MIKHAIL STAUFFER MD 11-Qak-969362:32 BRAIN/HEAD WITHOUT CONTRAST Radiology Report See Note [...] Fontenot M.D.August 04, 2012 at 5:16:58 PM [id number] Signed DN/DN If you are the referring physician and would like to consult with theradiologist who pro vided this interpretation, please contact Heather Ng M.D. at [phone]. If this radiologist is unavailable, youwillbe directed to another radiologist to assist. If you are a patient with a quest ion regarding this report, pleasecontactyour referring physician directly. Professional Interpretation Provided By: [employer], Phone , These documents contain legally pro [...] 08/04/121718 Sign by: ___ HEATHER FONTENOT MD 59-Arj-671789:36 CBCD ANC 4.1 3/uL (Normal) Range: 2.0-7.7 [...] METABOLIC PANEL, Comments: PATIENT NOT FASTINGPERFORMED BY: LabCoSt. Joseph's Wayne HospitalSwkfkp4745 [facility] [id number] Information: [id number] COMPREHENSIVE (27604) ALT (SGPT) 13 [iU]/L (Normal) Range: 0-44 [...] (Normal) Range: 65-99 :01 HgA1C , Office (42913) HgA1C , Office 6.2 % (Normal) Range: 4.6 - 7.1 :01 Blood Glucose , Office (58350) Blood Glucose , Office 89 (Normal) :48 Microscopic Examination Comments: PATIENT WAS FASTINGPERFORMED BY: Qiro70 Seeonicformerly [facility] [id number] Bacteria Few (Normal) Mucus Threads Present (Normal) Epithelial Cells (non renal) None seen {/hpf} (Normal) Range: 0 - 10 RBC 0-3 {/hpf} (Normal) Range: 0 - 3 WBC 0-5 {/hpf} (Normal) Range: 0 - 5 :48 TSH (17161) Comments: PATIENT WAS FASTINGPERFORMED BY: Qiro70 Seeonicformerly [facility] [id number] TSH 5.340 {uIU/mL} (Abnormal) Range: 0.450-4.500 :48 URINALYSIS, W/ MICRO (80116) Comments: PATIENT WAS FASTINGPERFORMED BY: ClacendixSt. Joseph's Wayne HospitalAicrol4685 [facility] [id number] Microscopic Examination See below: (Normal) Microscopic Examination MICRON (Normal) Comments: Microscopic follows if indicated. Bilirubin Negative (Normal) Nitrite, Urine Negative (Normal) Urobilinogen,Semi-Qn 0.2 mg/dL (Normal) Range: 0.0-1.9 Occult Blood Negative (Normal) Ketones Negative (Normal) Glucose Negative (Normal) Protein Negative (Normal) WBC Esterase Negative (Normal) Appearance Clear (Normal) pH 5.5 (Normal) Range: 5.0-7.5 Urine-Color Yellow (Normal) Specific [place] 1.028 (Normal) Range: 1.005-1.030 :48 MICROALBUMIN: CREATININE RATIO Comments: PATIENT WAS FASTINGPERFORMED BY: ClacendixSt. Joseph's Wayne HospitalSlnkan1896 [facility] [id number] (67510) AND (63050) Microalb/Creat Ratio 1.6 {mg/g_creat} (Normal) Range: 0.0-30.0 Creatinine, Urine 195.7 mg/dL (Normal) Range: 22.0-328.0 Microalbumin, Urine 3.2 ug/mL (Normal) Range: 0.0-17.0 :48 METABOLIC PANEL, COMPREHENSIVE Comments: PATIENT WAS FASTINGPERFORMED BY: ClacendixSt. Joseph's Wayne HospitalKzhfna9131 [facility] [id number] (77003) ALT (SGPT) 16 [iU]/L (Normal) Range: 0-44 [...] mg/dL (Normal) Range: 65-99 :48 LIPID PANEL (21127) Comments: PATIENT WAS FASTINGPERFORMED BY: Qiro70 [facility] [id number] LDL Cholesterol Calc 97 mg/dL (Normal) Range: [...] MANUAL DIFF Comments: PATIENT WAS FASTINGPERFORMED BY: Well Donelin6370 [facility] [id number] Information: [id number] (80133) Immature Grans (Abs) 0.0 {x10E3/uL} (Normal) Range: [...] (Normal) Range: 4.0-10.5 :46 HgA1C , Office (30762) HgA1C , Office 6.1 % (Normal) Range: 4.6 - 7.1 :46 Blood Glucose , Office (48096) Blood Glucose , Office 91 (Normal) 8-Uii-272876:25 HEPATOBILLIARY IMG W/PHARM INT Radiology Report See [...] Cholecystokinin (0.02 ug/kg) was administered intravenously over u58-cidzcu period. The post CCK gallbladder ejection fraction vhjefajwbuwb23 minutes following Cholecystokinin administration was noted to [...] Richmond M.D.December 24, 2011 at 8:34:10 PM [id number] S igned RB/RB If you are the referring physician and would like to consult with theradiologist who provided this interpretation, please contact Chad Aragon at [phone]. If this radiologist is un available, you will bedirected to another radiologist to assist. If you are a patient with a question regarding this report, pleasecontactyour referring physician directly. Professional Interpretation P rovided By: [employer], Phone , These documents contain legally protected [...] on 12/24/112116 Sign by: Aamir Richmond DO 71-Hcx-27087:56 GALLBLADDER Radiology Report See Note (Normal) Comments: [...] size of the right kidney. The right myiomfzavbbvcn62.6 cm. Normal rolando al cortex. The right cortex measures 1.8 cm. Thereisno demonstrated renal mass or cyst. There is no right hydronephrosis. IMPRESSION:Sludge in the gallbladder lumen, with a thickened gallbladder wall .Correlation with nuclear medicine hepatobiliary scan is recommended. Signed:Jakob Hunt M.D.December 18, 2011 at 11:00:05 AM [id number] Signed GP/GP If you are the referring physician and would like to consult with theradiologist who provided this interpretation, please contact Chad Lao at [phone]. If this radiologist is unavailable, youwill be directed to another radiologist to assist. If you are a patient with a question regarding this report, pleasecontactyour referring physician directly. Professional Interpretation Provided By: [employer], Phone , These documents contain legally protected [...] Jakob Hunt MD :41 HgA1C , Office (05629) HgA1C , Office 6.2 % (Normal) Range: 4.6 - 7.1 :41 Blood Glucose , Office (00200) Blood Glucose , Office 115 (Normal) :37 HgA1C , Office (32883) HgA1C , Office 6.4 % (Normal) Range: 4.6 - 7.1 :37 Blood Glucose , Office (87632) Blood Glucose , Office 119 (Normal) :44 PSA (PROSTATE SPECIFIC Comments: PATIENT WAS FASTINGPERFORMED BY: [facility]6370 [facility] [id number] ANTIGEN) (V76.44) Prostate Specific Ag, 1.7 ng/mL (Normal) Range: 0.0-4.0 Serum Comments: Dee ECLIA methodology. .According to the [place] [employer], Serum PSA shoulddecrease and remain at undetectable levels after radicalprostatectomy. The AUA defines biochemical recurrence as an initialPSA value 0.2 ng/mL or greater followed by a subsequent confirmatoryPSA value 0.2 ng/mL or greater.Values obtained with d ifferent assay methods or kits cannot be usedinterchangeably. Results cannot be interpreted as absolute evidenceof the presence or absence of malignant disease. :44 TSH (26772) Comments: PATIENT WAS FASTINGPERFORMED BY: Twiiggformerly [facility] [id number] TSH 2.660 {uIU/mL} (Normal) Range: 0.450-4.500 :44 URINALYSIS, W/ MICRO (83291) Comments: PATIENT WAS FASTINGPERFORMED BY: Twiiggformerly [facility] [id number] Microscopic Examination See below: (Normal) Microscopic Examination MICRON (Normal) Comments: Microscopic follows if indicated. Nitrite, Urine Negative (Normal) Urobilinogen,Semi-Qn 0.2 mg/dL (Normal) Range: 0.0-1.9 Bilirubin Negative (Normal) Occult Blood Negative (Normal) Ketones Negative (Normal) Glucose Negative (Normal) Protein Negative (Normal) WBC Esterase Negative (Normal) Appearance Clear (Normal) Urine-Color Yellow (Normal) pH 6.0 (Normal) Range: 5.0-7.5 Specific [place] 1.024 (Normal) Range: 1.005-1.030 :44 MICROALBUMIN: CREATININE RATIO Comments: PATIENT WAS FASTINGPERFORMED BY: U*tique6370 Seeonicformerly [facility] [id number] (45186) AND (53363) Microalb/Creat Ratio 1.1 {mg/g_creat} (Normal) Range: 0.0-30.0 Microalbumin, Urine 3.2 ug/mL (Normal) Range: 0.0-17.0 Creatinine, Urine 294.1 mg/dL (Normal) Range: 22.0-328.0 :44 Microscopic Examination Comments: PATIENT WAS FASTINGPERFORMED BY: [facility]6370 [facility] [id number] Bacteria None seen (Normal) Mucus Threads Present (Normal) Epithelial Cells (non renal) None seen {/hpf} (Normal) Range: 0 - 10 RBC 0-3 {/hpf} (Normal) Range: 0 - 3 WBC 0-5 {/hpf} (Normal) Range: 0 - 5 :44 METABOLIC PANEL, COMPREHENSIVE Comments: PATIENT WAS FASTINGPERFORMED BY: IntelliworksHutzel Women[facility] Hospital6370 [facility] [id number] (06136) ALT (SGPT) 21 [iU]/L (Normal) Range: 0-55 [...] Glucose, Serum 119 mg/dL (Abnormal) Range: 65-99 3-Meb-237011:44 LIPID PANEL (59325) Comments: PATIENT WAS FASTINGPERFORMED BY: IntelliworksHutzel Women'[facility] Hospital6370 [facility] [id number] LDL/HDL Ratio 1.2 {ratio_units} (Normal) Range: 0.0-3.6 LDL Cholesterol Calc 63 mg/dL (Normal) Range: 0-99 VLDL Cholesterol Ezequiel 20 mg/dL (Normal) Range: 5-40 HDL Cholesterol 52 mg/dL (Normal) Comments: According to ATP-III Guidelines, HDL-C >59 mg/dL is considered anegative risk factor for CHD. Triglycerides 100 mg/dL (Normal) Range: 0-149 Cholesterol, Total 135 mg/dL (Normal) Range: 100-199 5-Htc-054112:44 CBC WITH MANUAL DIFF Comments: PATIENT WAS FASTINGPERFORMED BY: ClacendixSt. Joseph's Wayne HospitalWzmvrq2491 [facility] [id number] Information: [id number] (60669) Immature Grans (Abs) 0.0 {x10E3/uL} (Normal) Range: [...] (Normal) Range: 4.0-10.5 :25 HgA1C , Office (95403) HgA1C , Office 6.2 % (Normal) Range: 4.6 - 7.1 :25 Blood Glucose , Office (88772) Blood Glucose , Office 84 (Normal) :56 Blood Glucose , Office (85234) Blood Glucose , Office 96 (Normal) 3-Gml-968761:29 SPINE, LUMBAR (ROUTINE) Radiology Report See Note [...] HEATHER FONTENOT MD :08 HgA1C , Office (67955) HgA1C , Office 6.3 % (Normal) Range: 4.6 - 7.1 :08 Blood Glucose , Office (82702) Blood Glucose , Office 108 (Normal) :50 URINALYSIS, W/ MICRO (93838) Comments: PATIENT WAS FASTINGPERFORMED BY: [employer] [place] [id number] Microscopic Examination See below: (Normal) Microscopic Examination MICRON (Normal) Comments: Microscopic follows if indicated. Nitrite, Urine Negative (Normal) Urobilinogen,Semi-Qn 0.2 mg/dL (Normal) Range: 0.0-1.9 Bilirubin Negative (Normal) Occult Blood Negative (Normal) Ketones Negative (Normal) Glucose Negative (Normal) Protein Negative (Normal) WBC Esterase Negative (Normal) Appearance Clear (Normal) Urine-Color Yellow (Normal) pH 5.5 (Normal) Range: 5.0-7.5 Specific [place] 1.022 (Normal) Range: 1.005-1.030 :50 MICROALBUMIN: CREATININE RATIO Comments: PATIENT WAS FASTINGPERFORMED BY: Twiiggformerly [facility] [id number] (50234) AND (78210) Microalb/Creat Ratio <.6 {mg/g_creat} (Normal) Range: 0.0-30.0 Creatinine, Urine 163.1 mg/dL (Normal) Range: 22.0-328.0 Microalbumin, Urine <1.0 ug/mL (Normal) Range: 0.0-17.0 Comments: Verified by repeat analysis :50 METABOLIC PANEL, COMPREHENSIVE Comments: PATIENT WAS FASTINGPERFORMED BY: [employer] vivitformerly [facility] [id number] (64775) ALT (SGPT) 16 [iU]/L (Normal) Range: 0-55 [...] mg/dL (Abnormal) Range: 65-99 :50 LIPID PANEL (93472) Comments: PATIENT WAS FASTINGPERFORMED BY: LabCoSt. Joseph's Wayne HospitalKqjpyq6163 [facility] [id number] LDL Cholesterol Calc 68 mg/dL (Normal) Range: [...] MANUAL DIFF Comments: PATIENT WAS FASTINGPERFORMED BY: [facility]6370 [facility] [id number] Information: [id number] (26324) Immature Grans (Abs) 0.0 {x10E3/uL} (Normal) Range: [...] Microscopic Examination Comments: PATIENT WAS FASTINGPERFORMED BY: Clacendix Tuagze1426 [facility] [id number] Bacteria Few (Normal) Mucus Threads Present (Normal) Epithelial Cells (non renal) None seen {/hpf} (Normal) Range: 0 - 10 RBC None seen {/hpf} (Normal) Range: 0 - 3 WBC 0-5 {/hpf} (Normal) Range: 0 - 5 :58 HgA1C , Office (23583) HgA1C , Office 6.0 % (Normal) Range: 4.6 - 7.1 :58 Blood Glucose , Office (25943) Blood Glucose , Office 93 (Normal) :13 PSA (PROSTATE SPECIFIC Comments: PATIENT NOT FASTINGPERFORMED BY: Clacendix Grxlid9553 [facility] [id number] Information: [id number] ANTIGEN) (V76.44) Prostate Specific Ag, 1.5 ng/mL (Normal) Range: 0.0-4.0 Serum Comments: Dee ECLIA methodology. .According to the [place] [employer], Serum PSA shoulddecrease and remain [...] of malignant disease. :16 HgA1C , Office (66723) HgA1C , Office 6.2 % (Normal) Range: 4.6 - 7.1 :16 Blood Glucose , Office (20673) Blood Glucose , Office 196 (Normal) :15 TSH (60166) Comments: PATIENT WAS FASTINGPERFORMED BY: Clacendix Ggrtob5734 [facility] [id number] TSH 3.200 {uIU/mL} (Normal) Range: 0.450-4.500 3-Spk-180504:15 MICROALBUMIN: CREATININE RATIO Comments: PATIENT WAS FASTINGPERFORMED BY: [facility] [id number] ([id number]) AND (93003) Creatinine, Urine 168.7 mg/dL (Normal) Range: 22.0-328.0 Microalb/Creat Ratio 1.5 {mg/g_creat} (Normal) Range: 0.0-30.0 Microalbumin, Urine 2.5 ug/mL (Normal) Range: 0.0-17.0 0-Ixm-959831:15 METABOLIC PANEL, COMPREHENSIVE Comments: PATIENT WAS FASTINGPERFORMED BY: ClacendixSt. Joseph's Wayne HospitalPkarkg6570 [facility] [id number] (65383) A/G Ratio 1.8 (Normal) Range: 1.1-2.5 Alkaline [...] Glucose, Serum 108 mg/dL (Abnormal) Range: 65-99 3-Exs-071185:15 LIPID PANEL (70445) Comments: PATIENT WAS FASTINGPERFORMED BY: VoxifySt. Joseph's Wayne HospitalXvumge0489 [facility] [id number] LDL/HDL Ratio 1.8 {ratio_units} (Normal) Range: 0.0-3.6 HDL Cholesterol 49 mg/dL (Normal) Comments: According to ATP-III Guidelines, HDL-C >59 mg/dL is considered anegative risk factor for CHD. LDL Cholesterol Calc 86 mg/dL (Normal) Range: 0-99 VLDL Cholesterol Ezequile 25 mg/dL (Normal) Range: 5-40 Cholesterol, Total 160 mg/dL (Normal) Range: 100-199 Triglycerides 123 mg/dL (Normal) Range: 0-149 6-Kwz-425092:15 CBC WITH MANUAL DIFF Comments: PATIENT WAS FASTINGPERFORMED BY: VoxifySt. Joseph's Wayne HospitalFadvfn2895 [facility] [id number] Information: [id number] (89744) Immature Grans (Abs) 0.0 {x10E3/uL} (Normal) Range: [...] (Normal) Range: 4.0-10.5 :53 HgA1C , Office (17805) HgA1C , Office 6.3 % (Normal) Range: 4.6 - 7.1 :53 Blood Glucose , Office (53291) Blood Glucose , Office 123 (Normal) :51 HgA1C , Office (82641) HgA1C , Office 6.2 % (Normal) Range: 4.6 - 7.1 :51 Blood Glucose , Office (32855) Blood Glucose , Office 93 (Normal) 28-Rlb-176076:01 Microscopic Examination Comments: PATIENT WAS FASTINGPERFORMED BY: Voxify Sojmuq3324 [facility] [id number] Bacteria Few (Normal) Mucus Threads Present (Normal) Epithelial Cells (non renal) None seen {/hpf} (Normal) Range: 0 - 10 RBC 0-3 {/hpf} (Normal) Range: 0 - 3 WBC 0-5 {/hpf} (Normal) Range: 0 - 5 42-Mfv-962481:01 PSA (PROSTATE SPECIFIC Comments: PATIENT WAS FASTINGPERFORMED BY: [facility] HealthAt[facility] [id number] ANTIGEN) (V76.44) Prostate Specific Ag, 1.4 ng/mL (Normal) Range: 0.0-4.0 Serum Comments: 2 MinutesIA methodology..According to the [place] [employer], Serum PSA shoulddecrease and remain at undetectable levels after radicalprostatectomy. The AUA defines biochemical recurrence a s an initialPSA value 0.2 ng/mL or greater followed by a subsequent confirmatoryPSA value 0.2 ng/mL or greater.Values obtained with different assay methods or kits cannot be usedinterchangeably. Results cannot be interpreted as absolute evidenceof the presence or absence of malignant disease. : TSH (33688) Comments: PATIENT WAS FASTINGPERFORMED BY: Twiiggformerly [facility] [id number] TSH 3.670 {uIU/mL} (Normal) Range: 0.450-4.500 : URINALYSIS, W/ MICRO (38076) Comments: PATIENT WAS FASTINGPERFORMED BY: Finisar [facility] [id number] Microscopic Examination See below: (Normal) Bilirubin Negative (Normal) Microscopic Examination MICRON (Normal) Comments: Microscopic follows if indicated. Nitrite, Urine Negative (Normal) Urobilinogen,Semi-Qn 0.2 mg/dL (Normal) Range: 0.0-1.9 Glucose Negative (Normal) Ketones Negative (Normal) Occult Blood Negative (Normal) Protein Negative (Normal) WBC Esterase Negative (Normal) Appearance Clear (Normal) pH 6.0 (Normal) Range: 5.0-7.5 Specific [place] 1.024 (Normal) Range: 1.005-1.030 Urine-Color Yellow (Normal) 53-Opu-474671:01 MICROALBUMIN: CREATININE RATIO Comments: PATIENT WAS FASTINGPERFORMED BY: [facility] [id number] ([id number]) AND (03729) Microalb/Creat Ratio <.4 {mg/g_creat} (Normal) Range: 0.0-30.0 Microalbumin, Urine <1.0 ug/mL (Normal) Range: 0.0-17.0 Creatinine, Urine 226.9 mg/dL (Normal) Range: 22.0-328.0 :01 METABOLIC PANEL, COMPREHENSIVE Comments: PATIENT WAS FASTINGPERFORMED BY: LabCoSt. Joseph's Wayne HospitalFajvad2356 [facility] [id number] (06023) A/G Ratio 2.0 (Normal) Range: 1.1-2.5 Alkaline [...] mg/dL (Normal) Range: 65-99 :01 LIPID PANEL (63171) Comments: PATIENT WAS FASTINGPERFORMED BY: ClacendixSt. Joseph's Wayne HospitalNszmck5884 [facility] [id number] HDL Cholesterol 46 mg/dL (Normal) Comments: According to ATP-III Guidelines, HDL-C >59 mg/dL is considered anegative risk factor for CHD. LDL Cholesterol Calc 70 mg/dL (Normal) Range: 0-99 LDL/HDL Ratio 1.5 {ratio_units} (Normal) Range: 0.0-3.6 VLDL Cholesterol Ezequiel 18 mg/dL (Normal) Range: 5-40 Cholesterol, Total 134 mg/dL (Normal) Range: 100-199 Triglycerides 89 mg/dL (Normal) Range: 0-149 43-Ndq-667099:01 CBC WITH MANUAL DIFF Comments: PATIENT WAS FASTINGPERFORMED BY: ClacendixSt. Joseph's Wayne HospitalKdazqs3847 [facility] [id number] Information: [id number] ([id number]) Baso (Absolute) 0.0 {x10E3/uL} (Normal) Range: 0.0-0.2 [...] (Normal) Range: 4.0-10.5 :59 HgA1C , Office (92175) HgA1C , Office 6.6 % (Normal) Range: 4.6 - 7.1 :59 Blood Glucose , Office (39209) Blood Glucose , Office 105 (Normal) :29 HgA1C , Office (01301) Comments: done km HgA1C , Office 7.2 % (Abnormal) Range: 4.6 - 7.1 :29 Blood Glucose , Office (37978) Comments: done km Blood Glucose , Office 134 (Normal) :04 HgA1C , Office (01524) Comments: done km HgA1C , Office 6.7 % (Normal) Range: 4.6 - 7.1 :04 Blood Glucose , Office (81506) Comments: done Blood Glucose , Office 141 (Normal) :27 TSH (81414) Comments: PATIENT WAS FASTINGPERFORMED BY: LabCoSt. Joseph's Wayne HospitalKswzaj1774 [facility] [id number] TSH 3.740 {uIU/mL} (Normal) Range: 0.450-4.500 :27 METABOLIC PANEL, COMPREHENSIVE Comments: PATIENT WAS FASTINGPERFORMED BY: LabCoSt. Joseph's Wayne HospitalLxlwii3524 [facility] [id number] ([id number]) A/G Ratio 1.7 (Normal) Range: 1.1-2.5 Albumin, [...] Range: 135-145 25-Oct-20089:27 LIPOPROTEIN, BLD, BY NMR (36612) Comments: PATIENT WAS FASTINGClinical Information: ADD [id number], [id number] PERFORMED BY: LabHutzel [facility] Hospital6370 [facility] [id number] Cholesterol, Total 149 mg/dL (Normal) HDL-C 41 [...] mg/dL (Normal) 25-Oct-20089:27 CBC WITH MANUAL DIFF (18872) Comments: PATIENT WAS FASTINGPERFORMED BY: LabCoSt. Joseph's Wayne HospitalNigmpj0076 [facility] [id number] Baso (Absolute) 0.0 {x10E3/uL} (Normal) Range: 0.0-0.2 [...] (Normal) Range: 4.0-10.5 :55 HgA1C , Office (39065) Comments: done km HgA1C , Office 5.9 % (Normal) Range: 4.6 - 7.1 :55 Blood Glucose , Office (89350) Comments: done km Blood Glucose , Office 115 (Normal) 77-Yso-173984:10 TSH (11993) Comments: REpeat first week in September; PATIENT NOT FASTINGClinical Information: ADD DRAW FEE [id number] ADD J 75093 PERFORMED BY: Qiro70 [facility] [id number] TSH 3.800 {uIU/mL} (Normal) Range: 0.450-4.500 13-Uqz-410837:48 TSH (92052) Comments: PATIENT WAS FASTINGPERFORMED BY: [employer] [facility] [id number] TSH 4.538 {uIU/mL} (Abnormal) Range: 0.450-4.500 77-Kqn-823714:48 MICROALBUMIN: CREATININE RATIO Comments: PATIENT WAS FASTINGPERFORMED BY: Qiro70 [employer] [facility] [id number] ([id number]) AND (27319) Creatinine, Urine 370.1 mg/dL (Abnormal) Range: 22.0-328.0 Microalb/Creat Ratio 1.0 {ug/mg_creat} (Normal) Range: 0.0-30.0 Microalbumin, Urine 3.7 ug/mL (Normal) Range: 0.0-17.0 72-Rlp-443952:48 METABOLIC PANEL, COMPREHENSIVE Comments: PATIENT WAS FASTINGPERFORMED BY: [facility] [id number] (83240) A/G Ratio 1.6 (Normal) Range: 1.1-2.5 Albumin, [...] Sodium, Serum 140 mmol/L (Normal) Range: 135-145 40-Bww-690858:48 CBC WITH MANUAL DIFF (59422) Comments: PATIENT WAS FASTINGClinical Information: ADD DRAW FEE [id number] ADD J [id number] PERFORMED BY: LabCoSt. Joseph's Wayne HospitalZfcbji5067 [facility] [id number] Baso (Absolute) 0.0 {x10E3/uL} (Normal) Range: 0.0-0.2 [...] {x10E3/uL} (Normal) Range: 4.0-10.5 :48 LIPID PANEL (52955) Comments: PATIENT WAS FASTINGPERFORMED BY: LabCoSt. Joseph's Wayne HospitalNlnbna6624 [facility] [id number] Cholesterol, Total 171 mg/dL (Normal) Range: 100-199 HDL Cholesterol 45 mg/dL (Normal) Comments: According to ATP-III Guidelines, HDL-C >59 mg/dL is considered anegative risk factor for CHD. LDL Cholesterol Calc 99 mg/dL (Normal) Range: 0-99 LDL/HDL Ratio 2.2 {ratio_units} (Normal) Range: 0.0-3.6 Triglycerides 133 mg/dL (Normal) Range: 0-149 VLDL Cholesterol Ezequiel 27 mg/dL (Normal) Range: 5-40 :24 HgA1C , Office (24194) Comments: done km HgA1C , Office 6.5 % (Normal) Range: 4.6 - 7.1 :24 Blood Glucose , Office (50044) Comments: done km Blood Glucose , Office 113 (Normal) :38 HgA1C , Office (88686) Comments: done HgA1C , Office 6.0 % (Normal) Range: 4.6 - 7.1 :38 Blood Glucose , Office (76003) Comments: done Blood Glucose , Office 132 (Normal) :09 PSA,TOT SCREEN 1.30 ng/mL (Normal) Range: 0.00-4.00 Comments: This test was performed using the TPSA method for the[employer] chemistry system.Values obtained with different assay methods cannot be usedinterchangably.When changing PSA assays in the course of monito ring apatient, additional sequential testing should be carriedout to confirm baseline values. :00 HgA1C , Office (08508) Comments: done HgA1C , Office 7.4 % (Abnormal) Range: 4.6 - 7.1 :00 Blood Glucose , Office (77730) Comments: done Blood Glucose , Office 138 (Normal) :32 MYOCARD PERF SPECT REST/STRESS Radiology Report See Note (Normal) Comments: Exam Number: [id number] MYOCARDIAL PERFUSION SCAN TECHNIQUEThe patient was injected [...] of 60%. Reported By: LOUIS CASTILLO M.D. 95-Ymc-174923:27 URINALYSIS W/O MICRO (54300) Comments: PATIENT WAS FASTINGPERFORMED BY: Twiiggformerly [facility] [id number] Appearance Clear (Normal) Bilirubin Negative (Normal) Glucose Negative (Normal) Ketones Negative (Normal) Microscopic Examination MICRON (Normal) Comments: Microscopic follows if indicated. Nitrite, Urine Negative (Normal) Occult Blood Negative (Normal) pH 7.5 (Normal) Range: 5.0-7.5 Protein Trace (Normal) Specific [place] 1.023 (Normal) Range: 1.005-1.030 Urine-Color Yellow (Normal) Urobilinogen,Semi-Qn 0.2 mg/dL (Normal) Range: 0.0-1.9 WBC Esterase Negative (Normal) 83-Yof-868274:27 TSH (08222) Comments: PATIENT WAS FASTINGPERFORMED BY: Twiiggformerly [facility] [id number] TSH 3.505 {uIU/mL} (Normal) Range: 0.350-5.500 Comments: Adult TSH concentrations below 5.5 uIU/mL do not rule out the presence of subclinical hypothyroidism. 69-Jds-163554:27 MICROALBUMIN URINE QUANT Comments: PATIENT WAS FASTINGPERFORMED BY: Twiiggformerly [facility] [id number] ([id number]) Microalbum.,U,Random 4.4 ug/mL (Normal) Range: 0.0-17.0 :27 METABOLIC PANEL, COMPREHENSIVE Comments: PATIENT WAS FASTINGPERFORMED BY: [facility] Mpalop7623 [facility] [id number] (22683) A/G Ratio 1.8 (Normal) Range: 1.1-2.5 Albumin, [...] Serum 132 mg/dL (Abnormal) Range: 65-99 If -[place] >60 mL/min (Normal) Range: 60-137 Comments: Note: [...] Sodium, Serum 140 mmol/L (Normal) Range: 135-145 11-Tbw-620391:27 CBC WITH MANUAL DIFF (34595) Comments: PATIENT WAS FASTINGClinical Information: ADD [id number], ADD [id number] PERFORMED BY: GUICHO [facility] Fvoszf2000 [facility] [id number] Baso (Absolute) 0.0 {x10E3/uL} (Normal) Range: 0.0-0.2 [...] 11.7-15.0 WBC 5.5 {x10E3/uL} (Normal) Range: 4.0-10.5 85-Jkv-861547:27 LIPID PANEL (58506) Comments: PATIENT WAS FASTINGPERFORMED BY: [facility] Uewtxi7047 [facility] [id number] LDL/HDL Ratio 2.4 {ratio_units} (Normal) Range: 0.0-3.6 Cholesterol, Total 212 mg/dL (Abnormal) Range: 100-199 Comment SPRCS (Normal) Comments: If initial LDL-cholesterol result is >100 mg/dL, assess forrisk factors. HDL Cholesterol 52 mg/dL (Normal) Range: 40-59 LDL Cholesterol Calc 123 mg/dL (Abnormal) Range: 0-99 Triglycerides 184 mg/dL (Abnormal) Range: 0-149 VLDL Cholesterol Ezequiel 37 mg/dL (Normal) Range: 5-40 :28 HgA1C , Office (98363) Comments: done HgA1C , Office 6.9 % (Normal) Range: 4.6 - 7.1 :28 Blood Glucose , Office (31413) Comments: done Blood Glucose , Office 157 (Normal) :58 HgA1C , Office (18895) Comments: done HgA1C , Office 6.6 % (Normal) Range: 4.6 - 7.1 :58 Blood Glucose , Office (94820) Comments: done Blood Glucose , Office 136 [...] was performed using the TPSA method for [employer] chemistry system.Values obtained with different assay methods cannot be usedinterchangably.When changing PSA assays in the course of monito ring apatient, additionaly sequential testing should be carriedout to confirm baseline values. :29 TSH 3.67 {uIU/mL} (Normal) Range: 0.34-4.82 :39 Blood Glucose , Office (45347) Comments: done km Blood Glucose , Office 98 (Normal) :39 HgA1C , Office (29919) Comments: done km HgA1C , Office 6.5 % (Normal) Range: 4.6 - 7.1 :57 HgA1C , Office (53020) HgA1C , Office 6.5 % (Normal) Range: 4.6 - 7.1 :57 Blood Glucose , Office (91902) Blood Glucose , Office 138 (Normal) :03 HgA1C , Office (01103) HgA1C , Office 6.6 % (Normal) Range: 4.6 - 7.1 8-Rrq-752887:03 Blood Glucose , Office (82467) Blood Glucose , Office 92 (Normal) 76-Xam-349734:28 LIVER ALB 3.6 g/dL (Normal) Range: 3.4-5.0 [...] 1 month- gen med / will need [facility] Indication: Physical exam WITHOUT abnormal findings [...] from H/O transient cerebral ischemia) : Reviewed Stripper Black And White Letter Indication: History of transient cerebral ischemia (Renamed from H/O transient cerebral ischemia) Hypertensive urgency : Reviewed Stripper Black And White Letter Indication: Hypertensive urgency Heart disease, hypertensive, [...] Current Prescription(s) Indication: Hypothyroidism Hypothyroidism : Reviewed Stripper Black And White Letter Indication: Hypothyroidism Uncontrolled type II diabetes [...] from there Planned Observations T4, FREE (THYROXINE) (90200)Indication: Hypothyroidism On: :48 Request T3, FREE (TRIDOTHYRONINE) (42351)Indication: Hypothyroidism On: :48 Request URINALYSIS, W/ MICRO (79311)Indication: Essential hypertension On: :47 Request MICROALBUMIN: CREATININE RATIO (63327) AND (53947)Indication: Essential hypertension On: :47 Request METABOLIC PANEL, COMPREHENSIVE (52438)Indication: Essential hypertension On: :47 Request CBC W/AUTO DIFF WBC (24840)Indication: Essential hypertension On: :47 Request LIPID PANEL (64566)Indication: Hypercholesterolemia On: :47 Request TSH (38569)Indication: Hypothyroidism On: :47 Request CALCIFIDIOL (21942) VIT D 25Indication: Vitamin D deficiency On: :47 Request Influenza A&B Viral Culture (14736)Indication: Flu-like symptoms On: 8-Gaw-507362:53 Request POTASSIUM SERUM (42688)Indication: Potassium disorder On: 65-Afk-342883:53 Request CALCIFEDIOL (67884)Indication: Vitamin D deficiency On: 57-Dul-55340:36 Request TSH (08842)Indication: Hypothyroidism On: 32-Prq-01085:35 Request Lipid Panel (30842)Indication: Hypercholesterolemia On: :34 Request Metabolic Panel, Comprehensive (61290)Indication: Hypercholesterolemia On: :34 Request URINE VMA (56839)Indication: Hypertensive urgency On: 56-Gag-382330:54 Request Catecholamines,24-Hour Urine (05718)Indication: Hypertensive urgency On: 33-Wbz-527817:54 Request RENIN (39708)Indication: Hypertensive urgency On: 58-Anc-920769:54 Request ALDOSTERONE (07406)Indication: Hypertensive urgency On: 64-Ctf-136650:54 Request METANEPHRINES (76758)Indication: Hypertensive urgency On: 32-Xqv-733287:54 Request CBC (Auto) (06778)Indication: Hypertensive urgency On: 39-Lju-883501:36 Request Metabolic Panel, Basic (45295)Indication: Hypertensive urgency On: 11-Dpp-003439:36 Request TSH (56043)Indication: Hypertensive urgency On: :24 Request CBC WITH MANUAL DIFF (01490)Indication: Hypertensive urgency On: :24 Request METABOLIC PANEL, COMPREHENSIVE (93730)Indication: Hypertensive urgency On: 80-Pky-010021:24 Request Troponin I (14677)Indication: Hypertensive urgency On: 06-Uac-320193:20 Request CPK MB FRACTION (16392)Indication: Hypertensive urgency On: :20 Request CREATINE KINASE TOTAL (56146)Indication: Hypertensive urgency On: 29-Sho-797687:20 Request TSH (27833)Indication: Hypothyroidism On: 88-Hhw-849957:56 Request HgA1C , Office (31985)Indication: Controlled diabetes mellitus type II without complication On: :56 Request PSA (PROSTATE SPECIFIC ANTIGEN) (V76.44)Indication: Screening for prostate cancer On: 99-Vip-67351:20 Request TSH (98746)Indication: Uncontrolled type II diabetes mellitus On: :19 Request URINALYSIS, W/ MICRO (67846)Indication: Uncontrolled type II diabetes mellitus On: :19 Request MICROALBUMIN: CREATININE RATIO (05522) AND (81532)Indication: Uncontrolled type II diabetes mellitus On: :19 Request METABOLIC PANEL, COMPREHENSIVE (20264)Indication: Uncontrolled type II diabetes mellitus On: :19 Request LIPOPROTEIN, BLD, BY NMR (90703)Indication: Uncontrolled type II diabetes mellitus On: :19 Request LIPID PANEL (05022)Indication: Uncontrolled type II diabetes mellitus On: :19 Request CBC WITH MANUAL DIFF (42744)Indication: Uncontrolled type II diabetes mellitus On: :19 Request LIPOPROTEIN, BLD, BY NMR (10567)Indication: Hypercholesterolemia On: :57 Request LIPID PANEL (07604)Indication: Hypercholesterolemia On: :57 Request Comments: do in 3 months LIPID PANEL (60233)Indication: Controlled diabetes mellitus type II without complication On: :22 Request T3, FREE (TRIDOTHYRONINE) (68144)Indication: Abnormal TSH On: :40 Request T4, FREE (THYROXINE) (10314)Indication: Abnormal TSH On: :40 Request TSH (00940)Indication: Abnormal TSH On: :40 Request Comments: do in 2-3 mo TSH (86839)Indication: Controlled diabetes mellitus type II without complication On: :29 Request METABOLIC PANEL, COMPREHENSIVE (01835)Indication: Controlled diabetes mellitus type II without complication On: :29 Request MICROALBUMIN: CREATININE RATIO (05068) AND (89508)Indication: Controlled diabetes mellitus type II without complication On: :29 Request CBC WITH MANUAL DIFF (08479)Indication: Controlled diabetes mellitus type II without complication On: 87-Cer-574684:29 Request LIPID PANEL (76127)Indication: Controlled diabetes mellitus type II without complication On: :29 Request PSA (PROSTATE SPECIFIC ANTIGEN) (V76.44)Indication: Uncontrolled type II diabetes mellitus On: :18 Request LIPID PANEL (83527)Indication: Hypercholesterolemia On: 70-Tpv-016674:02 Request HEPATIC FUNCTION PANEL (30613)Indication: Hypercholesterolemia On: 57-Bzp-584587:02 Request TSH (32941) On: :45 Request METABOLIC PANEL, COMPREHENSIVE (16266) On: :44 Request LIPID PANEL (15984) On: :44 Request CBC WITH MANUAL DIFF (33427) On: :44 Request PSA (PROSTATE SPECIFIC ANTIGEN) (34101) On: :17 Request Comments: screening TSH (43910) On: :14 Request URINALYSIS W/O MICRO (34617) On: :14 Request MICROALBUMIN URINE QUANT (34132) On: 4-Ivw-366745:14 Request LIPID PANEL (96585) On: :14 Request METABOLIC PANEL, COMPREHENSIVE (55126) On: :14 Request CBC WITH MANUAL DIFF (46327) On: Request MICROALBUMIN: CREATININE RATIO (37300) On: : Request AND (58723) METABOLIC PANEL, COMPREHENSIVE (26539) On: : Request LIPID PANEL (67443) On: Request CBC WITH MANUAL DIFF (04936) On: Request Planned Procedures PNEUM VAC ADLT/IMUMNOSPR, SBC/INTRM On: 07-Feb-2018 Intent (17409)By: Denisa Macias DO Comments: 0.5 cc given sq lt arm lot [id number] 04/21/19 Denisa Macias DO X-RAY OF RIGHT HAND, ONE OR TWO On: 07-Feb-2018 Intent VIEWS (25345)By: Denisa Macias DO Comments: attention to hypothenar area for FB Denisa Macias DO TD VACCINE ADULT (33222)By: Venkata, On: 23-Dec-2017 Intent Anne Comments: a105a3/42707.5mlr dltd, IMMLONG Flu Vaccine (Quadrivalent) 05933Ay: On: 28-Nov-2017 Intent Visit, Nurse Comments: Lot #[id number]/30/19Site-L dltd, IMDose prefilled syringegiven by: Genna VARGAS.VIS reviewed and ABN signed X-RAY RIGHT KNEE, 3 VIEWS (00789)By: On: 31-Jul-2017 Intent Denisa Macias DO, DO, Kathleen Radiology - Knee - Right - Weight On: 31-Jul-2017 Intent BearingBy: Denisa Macias DO, DO, Kathleen ELECTROCARDIOGRAM, COMPLETE (ECG) On: 31-Jul-2017 Intent (22243)By: Denisa Macias DO Comments: nsr no acute chg Denisa Macias DO CT - Brain/Head (IV Contrast On: 31-Dec-2016 Intent Needed)By: Denisa Macias DO, DO, Kathleen Echo CompleteBy: Denisa Macias DO On: 31-Dec-2016 Intent Denisa Macias DO XEYL-FF-TGWG BEHAVIORAL COUNSELING On: 31-Dec-2016 Intent FOR OBESITY, 15 MINUTES (G0447)By: Denisa Macias DO, DO, Kathleen Flu Vaccine (Quadrivalent) 56706Ix: On: 17-Dec-2016 Intent Denisa Macias DO, DO, Comments: Lot:[id number]:09/09/17Amt:0.5mlRoute:IMSite: L DltdGiven By: YURY Valdez signed Denisa MAGNETIC RESONANCE ANGIOGRAPHY OF On: 24-Sep-2016 Intent CAROTID AND VERTEBRAL VESSELS (49910)By: Denisa Macias DO, DO, Kathleen ELECTROCARDIOGRAM, COMPLETE (ECG) On: 24-Sep-2016 Intent (76004)By: Denisa Macias DO Comments: sinus gabby no acute chg- on BB Denisa Macias DO Renal Duplex ScanBy: Colleen GARCIA, On: 24-Sep-2016 Intent Denisa Valladares DO ELECTROCARDIOGRAM, COMPLETE (ECG) On: 10-Sep-2016 Intent (65928)By: Denisa Macias DO Comments: sinus gabby no acute chg Denisa Macias DO CT HEAD OR BRAIN WO CONTRAST On: 21-May-2016 Intent (03915)By: Denisa Macias DO, DO, Kathleen Flu Vaccine (Quadrivalent) 53853Vd: On: 23-Dec-2015 Intent Emeka Levin Comments: FLUlot: [id number]:08/08site:Lt deltoidroute:IMdose:.5mlDEMICK, MA Echo CompleteBy: Denisa Macias DO On: 24-Oct-[address] SCAN OF CHEST WITH CONTRAST On: 24-Oct-2015 Intent (40332)By: Denisa Macias DO, DO, Kathleen CT - Chest (IV Contrast Needed)By: On: 20-Jun-2015 Intent Denisa Macias DO, DO, Kathleen Echo CompleteBy: Denisa Macias DO On: 21-Feb-2015 Intent Denisa Macias DO Flu Vaccine (Quadrivalent) 39946Cs: On: 05-Jan-2015 Intent Denisa Macias DO, DO, Comments: lot [id number]: 09/22/2015site/route L rafa, IMamt 0.5mlVIS and ABN signed when applicableChelsea, CMAFM4 Denisa ELECTROCARDIOGRAM, COMPLETE (ECG) On: 16-Nov-2014 Intent (94908)By: Denisa Macias DO Comments: nsr no acute changes - Denisa Macias DO Prevnar 13 (54540)By: Colleen GARCIA, On: 10-May-2014 Intent Denisa Valladares DO Comments: Lot:[id number]:08/07Dose:0.5mgRoute:imSite:l armGiven By:MIGUEL ÁNGEL signed Inhaler Demonstration (37941)By: On: 23-Mar-2014 Intent Hayley Stone CNP ADMINISTRATION OF INFLUENZA VIRUS On: 25-Dec-2013 Intent VACCINE (G0008)By: Visit, Nurse Comments: Lot #[id number]-L dltd, IMDose prefilled syringegiven by:YURY Seymour and ABN signed FLU VAC, SPLIT, >3 YEARS, INTRAMUSC On: 25-Dec-2013 Intent (22669)By: Visit, Nurse EKG (38877)By: Denisa Macias DO On: 08-Oct-2013 Intent Denisa [...] PNEUM VAC ADLT/IMUMNOSPR, SBC/INTRM On: 19-Dec-2012 Intent (28895)By: Marge Smith Comments: Lot:[id number]:10/25/13Dose:0.5mgRoute:imSite:r armGiven By:MIGUEL ÁNGEL signed ADMINISTRATION OF PNEUMOCOCCAL On: 19-Dec-2012 Intent VACCINE (G0009)By: Marge Smith FLU VAC, SPLIT, >3 YEARS, INTRAMUSC On: 17-Dec-2012 Intent (28231)By: Anne Edge LPN Comments: Lot:[id number]:6.14Amt:0.5mlRoute:IMSite: L DltdGiven By: YURY Valdez signed Eprescribed [...] 04-Aug-2012 Intent Denisa Colleen DO, Denisa EKG (55578)By: Colleen DO Denisa On: 28-Jul-2012 Intent Colleen [...] - HIDA w/CPKBy: On: 19-Dec-2011 Intent Chase WELDING INSPECTOR, Supriya EKG (93314)By: Denisa Macias DO On: 13-Dec-2011 Intent Denisa Macias DO Comments: nsr no acute chg Ultrasound - GallbladderBy: Colleen On: 29-Nov-2011 Intent Denisa GARCIA DO, Kathleen Eprescribed prescriptions (G8553)By: On: 29-Nov-2011 Intent Anne Edge LPN FLU VAC, SPLIT, >3 YEARS, INTRAMUSC On: 27-Nov-2011 Intent (02891)By: Marissa Palomino LPN Comments: Lot #[id number]/30/13Site-left deltoidgiven by: Todd Palomino LPN ADMINISTRATION OF INFLUENZA VIRUS On: 27-Nov-2011 Intent VACCINE ([id number])By: Marissa Palomino LPN MRI - Lumbar Spine (IV Contrast On: 26-Jan-2011 Intent Needed)By: Denisa Macias DO, DO, Kathleen EKG ([id number])By: Denisa Macias DO On: 05-Jan-2011 Intent Denisa Macias DO Comments: nsr no acute chg Cartoid DopplerBy: Colleen GARCIA, On: 05-Jan-2011 Intent Denisa Valladares DO EKG ([id number])By: Denisa Macias DO On: 06-Dec-2010 Intent Denisa Macias DO Comments: nsr no acute chgn- Bio Z ([id number])By: Denisa Macias DO On: 06-Dec-2010 Intent Denisa Macias DO Comments: stabel parameters- no chg in rx IMMUNIZ ADMNIN, 1 VAC, SNGL/COMBO On: 06-Dec-2010 Intent ([id number])By: Denisa Macias DO, DO, Kathleen FLU VAC, SPLIT, >3 YEARS, INTRAMUSC On: 06-Dec-2010 Intent ([id number])By: Denisa Macias DO, DO, Kathleen TDAP VACCINE >7 IM ([id number])By: Colleen On: 30-Aug-2010 Intent Denisa GARCIA DO, Kathleen Comments: Lot #[id number]/25/13Site-left deltoidgiven by: Todd Palomino LPN ADMINISTRATION OF INFLUENZA VIRUS On: 27-Dec-2009 Intent VACCINE ([id number])By: Edilia Vasquez LPN FLU VAC, SPLIT, >3 YEARS, INTRAMUSC On: 27-Dec-2009 Intent ([id number])By: Edilia Vasquez LPN Comments: Lot #[id number]/03Site-L armDose0.5mlgiven by: EKG ([id number])By: Denisa Macias DO On: 15-Nov-2009 Intent Denisa Macias DO Comments: nsr no acute changes MRI - Shoulder(s) - LeftBy: Colleen On: 11-May-2009 Intent Denisa GARCIA DO, Kathleen Bio Z ([id number])By: Denisa Macias DO On: 25-Oct-2008 Intent Denisa Macias DO Comments: NORMAL SVR AND CO EKG ([id number])By: Denisa Macias DO On: 25-Oct-2008 Intent Denisa Macias DO Comments: NSR NO ACUTE CHANGES Bio Z ([id number])By: Denisa Macias DO On: 04-Jun-2008 Intent Denisa Macias DO Comments: normal IMMUNIZ ADMNIN, 1 VAC, SNGL/COMBO On: 05-Jan-2008 Intent ([id number])By: Denisa Macias DO, DO, Kathleen FLU VAC, SPLIT, >3 YEARS, INTRAMUSC On: 05-Jan-2008 Intent ([id number])By: Denisa Macias DO, DO, Kathleen Bio Z ([id number])By: Denisa Macias DO On: 07-Nov-2007 Intent Denisa Macias DO Comments: normal svr and co Nuclear Stress Test/Stress On: 15-Sep-2007 Intent SPECT/TreadmillBy: Colleen GARCIA, Comments: [facility] Denisa Valladares DO Echo CompleteBy: Denisa Macias DO On: 07-Aug-2007 Intent Denisa Macias DO Cartoid DopplerBy: Colleen , On: 07-Aug-2007 Intent Denisa Valladares DO EKG ([id number])By: Denisa Macias DO On: 07-Aug-2007 Intent Denisa Macias DO Comments: nsr no acute ischemic changes EKG ([id number])By: Denisa Macias DO On: 29-Nov-2006 Intent Denisa [...] The patient does have durable power of securities attorney and living will. The patient has [...] issues the patient is following up for [facility] All identified problems below, blood sugar [...] The patient does have durable power of securities attorney and living will. The patient has noticed nothing from the geriatic depression scale. Other providers contributing to the patient's care are painter hand (dr liu) and other: ([facility], vision test up to date).Encounter Diagnosis: [...] in bathroom. The patient has completed [facility] preventative measures: PSA testing (2011) and colonoscopy (2011). The patient does have durable power of securities attorney and living will. The patient has noticed nothing from the geriatic depression scale . Other providers contributing to the patient's care are painter hand (Dr. Antonio) and surgeon (Dr. Negro -- [...] pa tient does have durable power of securities attorney and living will. The patient has noticed nothing from the geriatic depression scale. Other providers contributing to the patient's care are diesel engine assembler and other: (overhead distribution engineer, ENT). Encounter Diagnosis: Type II Diabetes,controlled [...]
--- OUTSIDE RECORDS SUMMARY | 2018-06-16 22:13 | XMS RPT_ITS | Continuity of Care Document ---
:1945 External Reference #:[id number] Author Organization [facility] Address [address] [facility] [address] [place] [address] Phone Care Team Providers Name Role Phone [...] in neptali anymore so we will pickle sorter ball Status: Active TUBULOVILLOUS ADENOMA, NOS Comments: [...] DO, Kathleen Start : 27-Dec-2016 Active [place] 08/07 31G X 8 MM Miscellaneous 1 [...] (External Solution) uad (10 %) Inactive Comments:Trillium Emery Levitra 10 MG Oral Tablet 1 Tablet [...] Brittaney Nina End : 31-Mar-2007 Inactive Zithromax Z-Luek 250 MG Oral Tablet 1 (one) Tablet Tablet tad for 0 days Quantity: 1 {Package} Refills: 0 Ordered:10-Sep-2016 Anne Edge LPN Start : 03-May-2016 End : 10-Sep-2016 Inactive Zithromax Z-Luke 250 MG Oral Tablet tad Tablet qd for 0 days Quantity: 1 {Package} Refills: 0 Ordered:31-Jul-2017 Anne Edge LPN Start : 15-May-2017 End : 31-Jul-2017 Inactive ASPIRIN BUF(QFGIWM-BWPZUZ-QFE), 325MG (Oral Tablet) 1 (one) Tablet Daily [...] 2 Views Result: Comments: See Note; NOTES: [facility] Imaging Services [address] [place] [address] Hand 2 Views MR#: [id number] Acct: [id number] Name: YOHANNES CADET Rep #: [id number] : 0 1945 M 72 From: Morales Perla MD PCP: Denisa Macias DO Status: REG CLI Study: Hand 2 Views Date of Exam: 02/07/18 Exam# [id number] Ordering Dr: Denisa Macias DO STUDY: X-RAY [...] Service support , CC: Denisa Macias DO Nurse Discharge: Signed 05-Dec-2016 PT D/C Summary (1) Result: Comments: See Note; NOTES: [facility] Physical Therapy [facility] [address] [place] [address] Fax REHABILITATION SERVICES DISCHAR SUMMARY MR#: [id number] Acct: [id number] Name: YOHANNES CADET Rep #: [id number] : 1945 71 From: Aftab Mendez PT, ATC Referring Dr.: Nik Ch DPM Status: REG RCR Insurance: MEDIC ARE PART A B [employer] HP - PT D/C Summary It has [...] please feel free to call me at [phone]. Thank you for the referral of this patient. Sincerely, Aftab Mendez, PT, <Electronically signed by Aftab Mendez PT, ATC> 12/05/16 1100 CC: Nik valdes DPM; Denisa Colleen DO [facility] Signed 09-Oct-2016 Inital Evaluation (1) - PT Result: Comments: See Note; NOTES: [facility] [address] [place] [address] Fax REHABILITATION SERVICES INITIAL EVALUATION MR#: [id number] Acct: [id number] Name: YOHANNES CADET Rep #: [id number] : 1945 71 From: Aftab Mendez PT, ATC Referring Dr.: Nik Ch DPM Status: REG RCR Insurance: [employer]pro PART A B [employer] Patient's Visit Information YOHANNES CADET is a [...] to be FAXED BACK to us at [phone] for Medicare purposes. Please let me know if there are questions or concerns regarding this plan of care. Physician Signature: Date: <Electronically signed by Aftab Mendez PT, ATC> 1001 CC: Nik Ch DPM; Denisa Macias DO [facility] Signed For Medicare only, by signing this I certify the plan of care. Physicians Signature Date 21-May-2016 Brain/Head without Contrast Result: Comments: See Note; NOTES: [facility] Imaging Services [address] [place] [address] Verdana 4d Brain/Head without Contrast MR#: [id number] Acct: [id number] Name: YOHANNES CADET Rep #: [id number] : 1945 M 70 From: Sincere Solorio DO PCP: Denisa Macias DO Status: REG CLI Study: Brain/Head without Contrast Date of Exam: 05/21/16 Exam# [id number] Ordering Dr: Denisa Macias DO STUDY: CT [...] at 14:26 EST Tel , Service support [phone], CC: Denisa Macias DO Nurse Discharge: Signed 14-Nov-2015 Echocardiogram Complete Result: Comments: See Note; NOTES: [facility] Cardiovascular Services [address] [place] [address] Echo Complete 11/14/15 1303 MR#: [id number] Acct: [id number] Name: YOHANNES CADET Rep #: [id number] : 1945 70 From: Layo Raymond MD Attending Dr: Denisa Macias DO Status: REG CLI Ordering Dr: Denisa Macias DO Date: 11/14/15 Location: [facility] Sex: M C Admitted: Reason Fo r [...] Dictated: 10/24 05/10 1303 Date Transcribed: 11/14/151648 Nurse Discharge: Signed 14-Nov-2015 Chest WITH Contrast Result: Comments: See Note; NOTES: [facility] Imaging Services [address] [place] [address] Verdana 4d Chest WITH Contrast MR#: [id number] Acct: [id number] Name: YOHANNES CADET Rep #: [id number] : 1945 M 70 From: Asia Peres MD PCP: Denisa Macias DO Status: REG CLI Study: Chest WITH Contrast Date of Exam: 11/14/15 Exam# [id number] Ordering Dr: Denisa Macias TUDY: CT CHEST [...] Service support , CC: Denisa Macias DO Nurse Discharge: Signed 24-Oct-2015 ELECTROCARDIOGRAM, COMPLETE (ECG) (42277) Comments: sinus gabby - no acute chg - same as old and on BB Result: [MEASUREMENTS ANALYSIS] Date of Test: 10/24/2015 09:30:26; Heart Rate: 55; VA Interval: 184; QRS: 105; QT Interval: 404; Corrected QT Interval (QTc): 396; P Wave [place]: 26; QRS Wave [place]: 27; T Wave [place] : 34; Blood Pressure: 138/70 [ECG DIAGNOSTIC STATEMENTS] Date of Test: 10/24/2015 09:30:26; Summary: Sinus Bradycardia WITHIN NORMAL LIMITS 29-Sep-2015 Knee 4 or More Views Result: Comments: See Note; NOTES: [facility] Imaging Services [address] [place] [address] Verdana 4d Knee 4 or More Views MR#: [id number] Acct: [id number] Name: YOHANNES CADET Rep #: [id number] : 1945 M 70 From: Tripp Miller MD PCP: Denisa Macias DO Status: REG CLI Study: Knee 4 or More Views Date of Exam: 09/29/15 Exam# [id number] Ordering Dr: Carrol Bautista DO STUDY: X-RAY [...] FACR at 9:18 EDT , Service support [phone], RAD/Knee 4 or More Views IMPRESSION: Moderate arthrosis of the patellofemoral joint Electronically Signed: Tripp Miller MD, FACR at 9:18 EDT , Service support , CC: Carrol Kirkpatrick DO; Denisa Macias DO Nurse Discharge: Signed 27-Oct-2013 PT Discharge Summary Result: Comments: See Note; NOTES: [facility] Physical Therapy [address] [place] [id number] Fax REHABILITATION SERVICES DISCHARGE SUMMARY MR#: [id number] Acct: [id number] Name: YOHANNES CADET Rep #: [id number] : 1945 68 From: Baljit Silva Referring [...] referral. Baljit Silva, PT T: GI JOB: [id number] <Electronically signed by Baljit pantoja > 10/27/13 0758 CC: Signed 27-Jul-2013 Inital Evaluation - PT Result: Comments: See Note; NOTES: [facility] [address] [place] [address]. 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 His goals are to [...] some more stress on his posterior tibi sylvani tendon as his foot mechanics are changing, [...] We discussed with patient possibly using the mjwj-zns-cbrwesn orthotics before he considers fabricated orthotics due to cost. Uzair Silva PT T: GI JOB: [id number] <Electronically signed by Baljit Silva > 07/27/13 1802 CC: Signed For Medicare only, by signing this I c ertify the plan of care. Physicians Signature Date 09-Jul-2013 Hip min 2 Views Result: Comments: See Note; NOTES: [facility] Imaging Services [address] [place] [address] Radiology Report MR#: [id number] Acct: [id number] Name: YOHANNES CADET Rep #: [id number] : 1945 67 From: Jakob Hunt MD PCP: Denisa Macias DO Status: REG CLI Study: Hip min 2 Views Date of Exam: 07/09/13 Exam# [id number] Ordering Dr: Denisa Macias DO STUDY : [...] Jakob Hunt MD at 14:44 EDT Tel [phone], Service support [phone], Fax CC: Denisa Macias DO Nurse Discharge: Signed 09-Jul-2013 Pelvis 1 or 2 Views Result: Comments: See Note; NOTES: [facility] Imaging Services [address] [place] [address] Radiology Report MR#: [id number] Acct: [id number] Name: YOHANNES CADET Rep #: [id number] : 1945 M 67 From: Jakob Hunt MD PCP: Denisa Macias DO Status: REG CLI Study: Pelvis 1 or 2 Views Date of Exam: 07/09/13 Exam# [id number] Ordering Dr: Denisa Macias TUDY: X-RAY - [...] Jakob Hunt MD at 13:32 EDT Tel [phone], Service support [phone], CC: Denisa Macias DO Nurse Discharge: Signed 09-Jul-2013 EKG (43302) Comments: nsr no acute chg - ant leads are old Result: [MEASUREMENTS ANALYSIS] Date of Test: 07/09/2013 08:48:02; Heart Rate: 57; VA Interval: 164; QRS: 106; QT Interval: 408; Corrected QT Interval (QTc): 403; P Wave [place]: 25; QRS Wave [place]: 60; T Wave [place] : 62; Blood Pressure: 138/68 [ECG DIAGNOSTIC STATEMENTS] Date of Test: 07/09/2013 08:48:02; Summary: Sinus Bradycardia - Negative precordial T-waves. WITHIN NORMAL LIMITS Immunization Name Dates Details Influenza (3 years and up) on: 05-Jan-2008 Family History Unknown Family Member Name Dates Details Father Comments: [place]/CVA at 84 Status: Active Social History Name [...] 2.27 m2 :15 Comments: eye-Dr at [facility] 2013hearing -wnl Pulse 57 /min [...] 0.00 cm Results Date Description Value Details 53-Fvh-458417:59 HgA1C , Office (78690) HgA1C , Office 7.2 % (Abnormal) Range: 4.6 - 7.1 90-Qly-771237:59 Blood Glucose , Office (95287) Blood Glucose , Office 128 (Normal) 9-Fiv-147285:20 Microscopic Examination Comments: PATIENT WAS FASTINGPERFORMED BY: [employer] [address] [id number] BY: [employer] [address] [place] [address] [id number] Bacteria None seen (Normal) Mucus Threads Present (Normal) Epithelial Cells (non renal) None seen {/hpf} (Normal) Range: 0 - 10 RBC None seen {/hpf} (Normal) Range: 0 - 2 WBC 0-5 {/hpf} (Normal) Range: 0 - 5 2-Tax-685526:20 CALCIFIDIOL (71489) VIT D Comments: PATIENT WAS FASTINGPERFORMED BY: [employer] [address] [id number] BY: [employer] Alfnec7084 [facility] [id number] 25 Vitamin D, 25-Hydroxy 55.7 ng/mL (Normal) Range: 30.0-100.0 Comments: Vitamin D deficiency has been defined by the [place] ofMedicine and an Endocrine Society practice guideline as alevel of serum 25-OH vitamin D less than 20 ng/mL (1,2).The Endocrine Society went on to further define vitamin Dinsufficiency as a level between 21 and 29 ng/mL (2).1. IOM ([place] of Medicine). 2010. Dietary reference intakes for calcium and D. [place]: The National Academies Press.2. Charles MF, Raissa OCONNELL, Nirmala ALBERT, et al. Evaluation, treatment, and prevention of vitamin D deficiency: an Endocrine Society clinical practice guideline. JCEM. 2010; 96(7):1911-30. 9-Sue-107823:20 TSH (41655) Comments: PATIENT WAS FASTINGPERFORMED BY: [employer] [id number] BY: iCreate SoftwareKindred Hospital at RahwayLtotft4146 [facility] [id number] TSH 2.360 {uIU/mL} (Normal) Range: 0.450-4.500 2-Afg-832788:20 URINALYSIS, W/ MICRO Comments: PATIENT WAS FASTINGPERFORMED BY: [employer] LabAutomated Insightsrp Ovxizhuzcd[address] [id number] BY: [employer]il LabAutomated InsightsKindred Hospital at RahwayAmopxm7253 [facility] [id number] (78992) Microscopic Examination See below: (Normal) Comments: Microscopic was indicated and was performed. Microscopic Examination MICRON (Normal) Comments: Microscopic follows if indicated. Nitrite, Urine Negative (Normal) Urobilinogen,Semi-Qn 0.2 mg/dL (Normal) Range: 0.2-1.0 Bilirubin Negative (Normal) Occult Blood Negative (Normal) Ketones Negative (Normal) Glucose Negative (Normal) Protein Negative (Normal) WBC Esterase Negative (Normal) Appearance Clear (Normal) Urine-Color Yellow (Normal) pH 5.0 (Normal) Range: 5.0-7.5 Specific [place] 1.019 (Normal) Range: 1.005-1.030 9-Lvt-654607:20 MICROALBUMIN: CREATININE Comments: PATIENT WAS FASTINGPERFORMED BY: [employer] Medical TechnologiesStephanie V[place] [address] [facility] [id number] BY: iCreate SoftwareScott Ville 5243370 [facility] [id number] RATIO (56247) AND (97028) Alb/Creat Ratio <2.4 {mg/g_creat} (Normal) Range: 0.0-30.0 Comments: Normal: 0.0 - 30.0 Albuminuria: 31.0 - 300.0 Clinical albuminuria: >300.0 Albumin, Urine <3.0 ug/mL (Normal) Creatinine, Urine 123.5 mg/dL (Normal) 1-Imt-571246:20 METABOLIC PANEL, Comments: PATIENT WAS FASTINGPERFORMED BY: [employer] [id number] BY: iCreate SoftwareKindred Hospital at RahwayBxmsub8233 [facility] [id number] COMPREHENSIVE (32707) ALT (SGPT) 22 [iU]/L (Normal) Range: 0-44 [...] 8-27 Glucose 156 mg/dL (Abnormal) Range: 65-99 2-Mfs-405907:20 CBC W/AUTO DIFF WBC Comments: PATIENT WAS FASTINGPERFORMED BY: BN [facility] Idmsliiksn9951 [facility] [id number] BY: CB [facility] Srmxtg0481 [facility] [id number] (30847) Immature Grans (Abs) 0.0 {x10E3/uL} (Normal) Range: [...] 4.14-5.80 WBC 5.8 {x10E3/uL} (Normal) Range: 3.4-10.8 9-Bqb-722722:20 LIPOPROTEIN, BLD, BY NMR Comments: PATIENT WAS FASTINGPERFORMED BY: BN [facility] Zeipttnzsr9162 [facility] [id number] BY: CB [facility] Ydxncu6886 [facility] [id number] (71504) LP-IR Score 66 (Abnormal) Comments: INSULIN RESISTANCE MARKER <--Insulin Sensitive Insulin Resistant--> Percentile in Reference PopulationInsulin Resistance ScoreLP-IR Score Low 25th 50th 75th High <27 27 45 63 >63LP-IR Score is inaccurate if patient is non-fasting. .The LP-IR score is a laboratory developed i [facility] that has beenassociated with insulin resistance [...] 1600 - 2000 Very High > 2000 27-Ogc-528034:40 HgA1C , Office (19775) HgA1C , Office 6.6 % (Normal) Range: 4.6 - 7.1 23-Xgh-643842:40 Blood Glucose , Office (22660) Blood Glucose , Office 75 (Normal) 56-Njw-962089:20 COLON BIOPSY (CHOOSE See Note (Normal) Comments: [facility] Pljnokijcm2996 [facility]. [place], [place], [address] SITE) Comments: Patient: YOHANNES CADET : 1945 (72/M) Acct Num: [id number] Phys: FroydariusMg Unit Num: [id number] Loc: LABSPEC Specimen: [id number] Received: 09/20/171532 Spec Type: C OLON BX TISSUES TISSUES: Rectum, NOS GROSS DESCRIPTION Received in fixative is one container labeled with the patient's name and designated rectal polyp. The specimen predominantly consists of fecal material mixed with possible soares soft tissue, measuring in aggregate 2.5 x 0.6 x0.1 cm. The specimen is totally submitted in one cassette. BIJU:scott 09/23/17 TC: cannot code CPT: 26597 HEADER OPERATION: Colonoscopy with polypectomy PRE-OP DIAGNOSIS: Rectal bleeding TISSUE SUBMITTED: Rectal polyp MICROSCOPIC DESCRIPTION Slides are reviewed. MICROSCOPIC DIAGNOSIS Rectal polyp, polypectomy: Fragments of fecal material. Colonic mucosal tissue is not identified. BIJU:scott 09/24/18 Signed Magdy Purvis 09/24/17 <signature on file> 77-Rkm-905400:08 Microscopic Examination Comments: PATIENT WAS FASTINGPERFORMED BY: [employer] Hzpodb6686 Rosado RoadDublin [place] [id number] Bacteria None seen (Normal) Mucus Threads Present (Normal) Epithelial Cells (non renal) None seen {/hpf} (Normal) Range: 0 - 10 RBC None seen {/hpf} (Normal) Range: 0 - 2 WBC 0-5 {/hpf} (Normal) Range: 0 - 5 86-Ufq-486782:08 T4, FREE (THYROXINE) (15730) Comments: PATIENT WAS FASTINGPERFORMED BY: [employer] Icjkwp5347 [address] [facility] HospitalDublin [place] [id number] T4,Free(Direct) 1.27 ng/dL (Normal) Range: 0.82-1.77 :08 T3, FREE (TRIDOTHYRONINE) (12508) Comments: PATIENT WAS FASTINGPERFORMED BY: [employer] Ysguxu6464 Rosado RoadDublin [place] [id number] Triiodothyronine,Free,Serum 2.7 pg/mL (Normal) Range: 2.0-4.4 12-Wla-552531:08 CALCIFIDIOL (03158) VIT D 25 Comments: PATIENT WAS FASTINGPERFORMED BY: LabSaint [facility] Irsvyv8787 Rosado RoadDublin [place] [id number] Vitamin D, 25-Hydroxy 57.4 ng/mL (Normal) Range: 30.0-100.0 Comments: Vitamin D deficiency has been defined by the [place] of[place]icine and an Endocrine Society practice guideline as alevel of serum 25-OH vitamin D less than 20 ng/mL (1,2).The Endocrine Society went on to further define vitamin Dinsufficiency as a level between 21 and 29 ng/mL (2).1. IOM ([place] of [place]). 2010. Dietary reference intakes for calcium and D. [place]: The National Academies Press.2. Charles MF, Raissa [place], Nirmala ALBERT, et al. Evaluation, treatment, and prevention of vitamin D deficiency: an Endocrine Society clinical practice guideline. JCEM. 2010; 96(7):1911-30. 21-Bao-119939:08 TSH (90206) Comments: PATIENT WAS FASTINGPERFORMED BY: [facility]6370 [facility] [id number] TSH 3.370 {uIU/mL} (Normal) Range: 0.450-4.500 06-Stm-764851:08 URINALYSIS, W/ MICRO (44643) Comments: PATIENT WAS FASTINGPERFORMED BY: [facility]6370 [facility] [id number] Microscopic Examination See below: (Normal) Comments: Microscopic was indicated and was performed. Microscopic Examination MICRON (Normal) Comments: Microscopic follows if indicated. Nitrite, Urine Negative (Normal) Urobilinogen,Semi-Qn 0.2 mg/dL (Normal) Range: 0.2-1.0 Bilirubin Negative (Normal) Occult Blood Negative (Normal) Ketones Negative (Normal) Glucose Negative (Normal) Protein Negative (Normal) WBC Esterase Negative (Normal) Appearance Clear (Normal) Urine-Color Yellow (Normal) pH 5.0 (Normal) Range: 5.0-7.5 Specific [place] 1.026 (Normal) Range: 1.005-1.030 20-Cdu-409710:08 MICROALBUMIN: CREATININE RATIO Comments: PATIENT WAS FASTINGPERFORMED BY: [facility]psM[facility]6370 [facility] [id number] (52590) AND (02946) Alb/Creat Ratio 1.3 {mg/g_creat} (Normal) Range: 0.0-30.0 Albumin, Urine 3.1 ug/mL (Normal) Creatinine, Urine 237.2 mg/dL (Normal) 78-Xri-474057:08 METABOLIC PANEL, COMPREHENSIVE Comments: PATIENT WAS FASTINGPERFORMED BY: [facility]repsM[facility]6370 [facility] [id number] (21553) ALT (SGPT) 17 [iU]/L (Normal) Range: 0-44 [...] 8-27 Glucose 142 mg/dL (Abnormal) Range: 65-99 18-Dzs-976050:08 CBC W/AUTO DIFF WBC (79233) Comments: PATIENT WAS FASTINGPERFORMED BY: LabCoKindred Hospital at RahwayQdnhdl3851 [facility] [id number] Immature Grans (Abs) 0.0 {x10E3/uL} (Normal) Range: [...] {x10E3/uL} (Normal) Range: 3.4-10.8 :08 LIPID PANEL (31036) Comments: PATIENT WAS FASTINGPERFORMED BY: LabMcl[facility] Hospital6370 [facility] [id number] LDL/HDL Ratio 1.2 {ratio} (Normal) Range: 0.0-3.6 [...] (Normal) Range: 100-199 :08 HgA1C , Office (83040) HgA1C , Office 6.9 % (Normal) Range: 4.6 - 7.1 :08 Blood Glucose , Office (52747) Blood Glucose , Office 123 (Normal) 8-Bdz-366616:23 Blood Glucose , Office (49993) Blood Glucose , Office 69 (Normal) :23 HgA1C , Office (17064) HgA1C , Office 7.1 % (Normal) Range: 4.6 - 7.1 8-Gnk-774468:23 Blood Glucose , Office (85465) Blood Glucose , Office 84 (Normal) 89-Ggi-171910:06 Microscopic Examination Comments: PATIENT WAS FASTINGPERFORMED BY: iCreate SoftwareKindred Hospital at RahwayOwatbu5188 [facility] [id number] Bacteria Few (Normal) Mucus Threads Present (Normal) Epithelial Cells (non renal) None seen {/hpf} (Normal) Range: 0 - 10 RBC 0-2 {/hpf} (Normal) Range: 0 - 2 WBC 0-5 {/hpf} (Normal) Range: 0 - 5 7-Fwh-666981:25 Methymalonic Acid, Serum Comments: PATIENT NOT FASTINGPERFORMED BY: [employer] Software[address] [id number] BY: [employer] [id number] (20057) Methylmalonic Acid, Serum 586 nmol/L (Abnormal) Range: 0-378 7-Hws-116369:25 METABOLIC PANEL, Comments: PATIENT NOT FASTINGPERFORMED BY: [employer] Software[address] [id number] BY: [employer] [id number] Inf ormation: [id number], 282654 COMPREHENSIVE (50321) ALT (SGPT) 11 [iU]/L (Normal) Range: 0-44 [...] Glucose, Serum 153 mg/dL (Abnormal) Range: 65-99 4-Ilz-168279:25 CBC (AUTO) (24144) Comments: PATIENT NOT FASTINGPERFORMED BY: [employer] [address] [place] [address] [id number] BY: [employer] [id number] Platelets 213 {x10E3/uL} (Normal) Range: 150-379 RDW 14.0 % (Normal) Range: 12.3-15.4 MCHC 33.2 g/dL (Normal) Range: 31.5-35.7 MCH 27.5 pg (Normal) Range: 26.6-33.0 MCV 83 fL (Normal) Range: 79-97 Hematocrit 38.2 % (Normal) Range: 37.5-51.0 Hemoglobin 12.7 g/dL (Normal) Range: 12.6-17.7 RBC 4.62 {x10E6/uL} (Normal) Range: 4.14-5.80 WBC 4.6 {x10E3/uL} (Normal) Range: 3.4-10.8 8-Lti-576487:25 TSH (86444) Comments: PATIENT NOT FASTINGPERFORMED BY: [employer] [id number] BY: [employer] [id number] TSH 3.040 {uIU/mL} (Normal) Range: 0.450-4.500 7-Fni-734236:25 VITAMIN B-12 (CYANOCOBALAMIN) Comments: PATIENT NOT FASTINGPERFORMED BY: CB [facility] Defbno0955 Rosado RoadDublin [place] [id number] BY: LabCo[address] [id number] (83603) Vitamin B12 227 pg/mL (Normal) Range: 211-946 0-Yei-343571:25 PSA (PROSTATE SPECIFIC Comments: PATIENT NOT FASTINGPERFORMED BY: CB [facility] Wgomek3712 [address] RoadDublin [place] [id number] BY: LabCo[address] [id number] ANTIGEN) (V76.44) Prostate Specific Ag, 2.0 ng/mL (Normal) Range: 0.0-4.0 Serum Comments: Factual ECLIA methodology. .According to the [place] [employer] Association, Serum PSA shoulddecrease and remain at undetectable levels after radicalprostatectomy. The AUA defines biochemical recurrence as an initialPSA value 0.2 ng/mL or greater followed by a subsequent confirmatoryPSA value 0.2 ng/mL or greater.Values obtained with d ifferent assay methods or kits cannot be usedinterchangeably. Results cannot be interpreted as absolute evidenceof the presence or absence of malignant disease. 98-Caq-971607:06 CALCIFIDIOL (01747) VIT D 25 Comments: PATIENT WAS FASTINGPERFORMED BY: [facility] Cyqqql9[address] [facility] HospitalDublin [place] [id number] Vitamin D, 25-Hydroxy 42.4 ng/mL (Normal) Range: 30.0-100.0 Comments: Vitamin D deficiency has been defined by the [place] ofMedicine and an Endocrine Society practice guideline as alevel of serum 25-OH vitamin D less than 20 ng/mL (1,2).The Endocrine Society went on to further define vitamin Dinsufficiency as a level between 21 and 29 ng/mL (2).1. IOM ([place] of Medicine). 2010. Dietary reference intakes for calcium and D. [place]: The National Academies Press.2. Charles MF, Raissa OCONNELL, Nirmala ALBERT, et al. Evaluation, treatment, and prevention of vitamin D deficiency: an Endocrine Society clinical practice guideline. JCEM. 2010; 96(7):1911-30. :06 TSH (02702) Comments: PATIENT WAS FASTINGPERFORMED BY: [facility]6370 [facility] [id number] TSH 3.460 {uIU/mL} (Normal) Range: 0.450-4.500 41-Shv-656941:06 URINALYSIS, W/ MICRO (18153) Comments: PATIENT WAS FASTINGPERFORMED BY: [facility]6370 [facility] [id number] Microscopic Examination See below: (Normal) Comments: Microscopic was indicated and was performed. Microscopic Examination MICRON (Normal) Comments: Microscopic follows if indicated. Nitrite, Urine Negative (Normal) Urobilinogen,Semi-Qn 0.2 mg/dL (Normal) Range: 0.2-1.0 Bilirubin Negative (Normal) Occult Blood Negative (Normal) Ketones Negative (Normal) Glucose Negative (Normal) Protein Negative (Normal) WBC Esterase Negative (Normal) Appearance Clear (Normal) Urine-Color Yellow (Normal) pH 5.0 (Normal) Range: 5.0-7.5 Specific [place] 1.020 (Normal) Range: 1.005-1.030 37-Mli-811574:06 MICROALBUMIN: CREATININE RATIO Comments: PATIENT WAS FASTINGPERFORMED BY: [facility]psM[facility]6370 [facility] [id number] (06888) AND (32156) Microalb/Creat Ratio <2.4 {mg/g_creat} (Normal) Range: 0.0-30.0 Microalbumin, Urine <3.0 ug/mL (Normal) Creatinine, Urine 127.3 mg/dL (Normal) :06 METABOLIC PANEL, COMPREHENSIVE Comments: PATIENT WAS FASTINGPERFORMED BY: NewsrepsMcl[facility]6370 [facility] [id number] (75292) ALT (SGPT) 15 [iU]/L (Normal) Range: 0-44 [...] mg/dL (Abnormal) Range: 65-99 :06 LIPID PANEL (46045) Comments: PATIENT WAS FASTINGPERFORMED BY: LabMcl[facility]6370 [facility] [id number] LDL/HDL Ratio 1.5 {ratio_units} (Normal) Range: 0.0-3.6 Comments: LDL/HDL Ratio Men Women 1/2 Avg.Risk 1.0 1.5 Av g.Risk 3.6 3.2 2X Avg.Risk 6.2 5.0 3X Avg.Risk 8.0 6.1 LDL Cholesterol Calc 63 mg/dL (Normal) Range: 0-99 VLDL Cholesterol Ezequiel 25 mg/dL (Normal) Range: 5-40 HDL Cholesterol 42 mg/dL (Normal) Triglycerides 126 mg/dL (Normal) Range: 0-149 Cholesterol, Total 130 mg/dL (Normal) Range: 100-199 27-Pcn-360248:06 CBC W/AUTO DIFF WBC (48614) Comments: PATIENT WAS FASTINGPERFORMED BY: LabCoKindred Hospital at RahwayBusyng7049 [facility] [id number] Immature Grans (Abs) 0.0 {x10E3/uL} (Normal) Range: [...] (Normal) Range: 3.4-10.8 :32 HgA1C , Office (57733) HgA1C , Office 7.3 % (Abnormal) Range: 4.6 - 7.1 :32 Blood Glucose , Office (32314) Blood Glucose , Office 185 (Normal) :33 ALDOSTERONE (92825) Comments: PATIENT NOT FASTINGPERFORMED BY: [address] [id number] Aldosterone 3.8 ng/dL (Normal) Range: 0.0-30.0 Comments: This test was developed and its performance characteristicsdetermined by [employer]. It has not been cleared or approvedby the Food and Drug Administration. :33 RENIN (88874) Comments: PATIENT NOT FASTINGPERFORMED BY: Newsreps[address] [id number] Renin Activity, Plasma 0.402 {ng/mL/hr} Range: 0.167-5.380 (Normal) Comments: This test was developed and its performance characteristicsdetermined by [employer]. It has not been cleared or approvedby the Food and Drug Administration. :31 METANEPHRINES - URINE (41524) Comments: PATIENT NOT FASTINGPERFORMED BY: Newsreps[address] [id number] Metanephrine, U,24hr 238 {ug/24_hr} (Normal) Range: 45-290 Comments: (Hypertensive) >17 years 11 months: 35 - 460 Metanephrine, Ur 119 ug/L (Normal) Normetanephr.,U,24h 370 {ug/24_hr} (Normal) Range: 82-500 Comments: (Hypertensive) >17 years 11 months: 110 - 1050 Normetanephrine, Ur 185 ug/L (Normal) :31 CATECHOLAMINES TOTAL, URINE Comments: PATIENT NOT FASTINGPERFORMED BY: [address] [id number] Information: START 09/25/2016@447AM (42332) Dopamine, Ur, 24hr 280 {ug/24_hr} (Normal) Range: 0-510 Dopamine, Urine 140 ug/L (Normal) Norepinephrine,U,24h 42 {ug/24_hr} (Normal) Range: 0-135 Norepinephrine, Ur 21 ug/L (Normal) Epinephrine, U, 24hr 4 {ug/24_hr} (Normal) Range: 0-20 Epinephrine, Urine 2 ug/L (Normal) :31 URINE VMA (20336) Comments: PATIENT NOT FASTINGPERFORMED BY: PARUL [place] [address]7067 [facility] [id number] VMA, Urine, 24hr 3.4 {mg/24_hr} (Normal) Range: 0.0-7.5 Comments: This test was developed and its performance characteristicsdetermined by [facility]. It has not been cleared or approvedby the Food and Drug Administration. VMA, Urine 1.7 mg/L (Normal) 33-Qdh-259539:05 Microscopic Examination Comments: PATIENT WAS FASTINGPERFORMED BY: GUICHO [facility] Bybnrq5535 [facility] [id number] Bacteria None seen (Normal) Mucus Threads Present (Normal) Epithelial Cells (non renal) None seen {/hpf} (Normal) Range: 0 - 10 RBC 0-2 {/hpf} (Normal) Range: 0 - 2 WBC 0-5 {/hpf} (Normal) Range: 0 - 5 10-Npg-354247:05 LIPID PANEL (24004) Comments: PATIENT WAS FASTINGPERFORMED BY: GUICHO [facility] Opsxtq6292 [facility] [id number] LDL/HDL Ratio 1.3 {ratio_units} (Normal) Range: 0.0-3.6 Comments: LDL/HDL Ratio Men Women 1/2 Avg.Risk 1.0 1.5 Av g.Risk 3.6 3.2 2X Avg.Risk 6.2 5.0 3X Avg.Risk 8.0 6.1 LDL Cholesterol Calc 61 mg/dL (Normal) Range: 0-99 VLDL Cholesterol Ezequiel 19 mg/dL (Normal) Range: 5-40 HDL Cholesterol 47 mg/dL (Normal) Triglycerides 94 mg/dL (Normal) Range: 0-149 Cholesterol, Total 127 mg/dL (Normal) Range: 100-199 74-Pjt-943930:05 URINALYSIS, W/ MICRO (73548) Comments: PATIENT WAS FASTINGPERFORMED BY: [facility]6370 [facility] [id number] Microscopic Examination See below: (Normal) Comments: Microscopic was indicated and was performed. Microscopic Examination MICRON (Normal) Comments: Microscopic follows if indicated. Nitrite, Urine Negative (Normal) Urobilinogen,Semi-Qn 0.2 mg/dL (Normal) Range: 0.2-1.0 Bilirubin Negative (Normal) Occult Blood Negative (Normal) Ketones Negative (Normal) Glucose Negative (Normal) Protein Negative (Normal) WBC Esterase Negative (Normal) Appearance Clear (Normal) Urine-Color Yellow (Normal) pH 5.5 (Normal) Range: 5.0-7.5 Specific [place] 1.024 (Normal) Range: 1.005-1.030 74-Gzg-525362:05 MICROALBUMIN: CREATININE RATIO Comments: PATIENT WAS FASTINGPERFORMED BY: [employer] [facility] [id number] (31447) AND (89987) Microalb/Creat Ratio <1.7 {mg/g_creat} (Normal) Range: 0.0-30.0 Microalbumin, Urine <3.0 ug/mL (Normal) Creatinine, Urine 171.8 mg/dL (Normal) 32-Fpu-305717:05 METABOLIC PANEL, COMPREHENSIVE Comments: PATIENT WAS FASTINGPERFORMED BY: [facility] Log[employer] TechnologyPerson [facility] [id number] (76432) ALT (SGPT) 15 [iU]/L (Normal) Range: 0-44 [...] Glucose, Serum 117 mg/dL (Abnormal) Range: 65-99 91-Cig-532201:05 CBC W/AUTO DIFF WBC (43166) Comments: PATIENT WAS FASTINGPERFORMED BY: LabCoKindred Hospital at RahwayZecxil4339 [facility] [id number] Immature Grans (Abs) 0.0 {x10E3/uL} (Normal) Range: [...] 4.9 {x10E3/uL} (Normal) Range: 3.4-10.8 :05 TSH (11884) Comments: PATIENT WAS FASTINGPERFORMED BY: LabCo Dhcvpg4357 Rosado RoadDublin [place] [id number] TSH 3.460 {uIU/mL} (Normal) Range: 0.450-4.500 :05 T4, FREE (THYROXINE) (84121) Comments: PATIENT WAS FASTINGPERFORMED BY: LabCo Lmwxkn7671 Rosado RoadDublin [place] [id number] T4,Free(Direct) 1.34 ng/dL (Normal) Range: 0.82-1.77 :05 T3, FREE (TRIDOTHYRONINE) (43061) Comments: PATIENT WAS FASTINGPERFORMED BY: [facility] Lvevol0510 [address] RoadDublin [place] [id number] Triiodothyronine,Free,Serum 3.0 pg/mL (Normal) Range: 2.0-4.4 :05 CALCIFIDIOL (64295) VIT D 25 Comments: PATIENT WAS FASTINGPERFORMED BY: [facility] Jboayg1638 Rosado RoadDublin [place] [id number] Vitamin D, 25-Hydroxy 46.6 ng/mL (Normal) Range: 30.0-100.0 Comments: Vitamin D deficiency has been defined by the [place] ofMedicine and an Endocrine Society practice guideline as alevel of serum 25-OH vitamin D less than 20 ng/mL (1,2).The Endocrine Society went on to further define vitamin Dinsufficiency as a level between 21 and 29 ng/mL (2).1. IOM ([place] of Medicine). 2010. Dietary reference intakes for calcium and D. [place]: The National Academies Press.2. Charles MF, Raissa NC, Nirmala ALBERT, et al. Evaluation, treatment, and prevention of vitamin D deficiency: an Endocrine Society clinical practice guideline. JCEM. 2010; 96(7):1911-30. :42 HgA1C , Office (24622) HgA1C , Office 6.6 % (Normal) Range: 4.6 - 7.1 :42 Blood Glucose , Office (10563) Blood Glucose , Office 117 (Normal) :59 HgA1C , Office (64656) HgA1C , Office 6.8 % (Normal) Range: 4.6 - 7.1 :59 Blood Glucose , Office (59268) Blood Glucose , Office 237 (Normal) :52 Rapid Flu (30681 x 2) Influenza A Ag neg (Normal) :19 HgA1C , Office (29185) HgA1C , Office 6.6 % (Normal) Range: 4.6 - 7.1 :19 Blood Glucose , Office (33428) Blood Glucose , Office 171 (Normal) :43 Microscopic Examination Comments: PATIENT WAS FASTINGPERFORMED BY: [facility] Log[facility] TechnologyPerson [facility] [id number] Bacteria Few (Normal) Mucus Threads Present (Normal) Epithelial Cells (non renal) 0-10 {/hpf} (Normal) Range: 0 - 10 RBC 0-2 {/hpf} (Normal) Range: 0 - 2 WBC 0-5 {/hpf} (Normal) Range: 0 - 5 :53 Serum Creatinine AND GFR Comments: [facility] Gbejgtfyrh[address] [place], [place], [id number] EST GFR - AA 83 mL/min (Normal) Comments: GFR Calc EST GFR 69 mL/min (Normal) Comments: Non- GFR Calc CREAT,SERUM 1.12 mg/dL (Normal) Range: 0.70-1.30 Comments: The validity of the calculated GFR AND GFRAA in patients over70 years has not been determined. Clinical correlation isessential. :43 CALCIFIDIOL (64780) VIT D 25 Comments: PATIENT WAS FASTINGPERFORMED BY: [employer] [address] EnflickFormerly [facility] [id number] Vitamin D, 25-Hydroxy 55.4 ng/mL (Normal) Range: 30.0-100.0 Comments: Vitamin D deficiency has been defined by the [place] ofMedicine and an Endocrine Society practice guideline as alevel of serum 25-OH vitamin D less than 20 ng/mL (1,2).The Endocrine Society went on to further define vitamin Dinsufficiency as a level between 21 and 29 ng/mL (2).1. IOM ([place] of Medicine). 2010. Dietary reference intakes for calcium and D. [place]: The National Academies Press.2. Charles MF, Raissa OCONNELL, Nirmala ALBERT, et al. Evaluation, treatment, and prevention of vitamin D deficiency: an Endocrine Society clinical practice guideline. JCEM. 2010; 96(7):1911-30. :43 URINALYSIS, W/ MICRO (27505) Comments: PATIENT WAS FASTINGPERFORMED BY: [employer] [place] [id number] Microscopic Examination See below: (Normal) Comments: Microscopic was indicated and was performed. Microscopic Examination MICRON (Normal) Comments: Microscopic follows if indicated. Nitrite, Urine Negative (Normal) Urobilinogen,Semi-Qn 0.2 mg/dL (Normal) Range: 0.2-1.0 Bilirubin Negative (Normal) Occult Blood Negative (Normal) Ketones Negative (Normal) Glucose Negative (Normal) Protein Negative (Normal) WBC Esterase Negative (Normal) Appearance Clear (Normal) Urine-Color Yellow (Normal) pH 5.5 (Normal) Range: 5.0-7.5 Specific [place] 1.022 (Normal) Range: 1.005-1.030 :43 MICROALBUMIN: CREATININE RATIO Comments: PATIENT WAS FASTINGPERFORMED BY: [employer] [place] [id number] (73321) AND (05160) Microalb/Creat Ratio <2.4 {mg/g_creat} (Normal) Range: 0.0-30.0 Microalbumin, Urine <3.0 ug/mL (Normal) Creatinine, Urine 122.5 mg/dL (Normal) :43 METABOLIC PANEL, COMPREHENSIVE Comments: PATIENT WAS FASTINGPERFORMED BY: iCreate SoftwareNor-Lea General HospitalLhmwea5452 [facility] [id number] (42283) ALT (SGPT) 12 [iU]/L (Normal) Range: 0-44 [...] Glucose, Serum 120 mg/dL (Abnormal) Range: 65-99 8-Stp-066350:43 TSH (99595) Comments: PATIENT WAS FASTINGPERFORMED BY: i[employer] SoftwareNor-Lea General HospitalSxnhjc4832 [facility] [id number] TSH 4.010 {uIU/mL} (Normal) Range: 0.450-4.500 8-Dlz-641831:43 LIPID PANEL (77515) Comments: PATIENT WAS FASTINGPERFORMED BY: i[employer] SoftwareNor-Lea General HospitalQwtkxh5062 [facility] [id number] LDL/HDL Ratio 1.2 {ratio_units} (Normal) Range: 0.0-3.6 [...] Cholesterol, Total 117 mg/dL (Normal) Range: 100-199 3-Mlk-595304:43 CBC W/AUTO DIFF WBC (02068) Comments: PATIENT WAS FASTINGPERFORMED BY: [facility] Pomaar9091 [facility] [id number] Immature Grans (Abs) 0.0 {x10E3/uL} (Normal) Range: [...] (Normal) Range: 3.4-10.8 :27 HgA1C , Office (75320) HgA1C , Office 6.6 % (Normal) Range: 4.6 - 7.1 :27 Blood Glucose , Office (30099) Blood Glucose , Office 168 (Normal) :08 Microscopic Examination Comments: PATIENT WAS FASTINGPERFORMED BY: GUICHO [employer] [facility] [id number] Bacteria None seen (Normal) Mucus Threads Present (Normal) Epithelial Cells (non renal) None seen {/hpf} (Normal) Range: 0 - 10 RBC None seen {/hpf} (Normal) Range: 0 - 2 WBC 0-5 {/hpf} (Normal) Range: 0 - 5 :08 CALCIFIDIOL (43698) VIT D 25 Comments: PATIENT WAS FASTINGPERFORMED BY: GUICHO [employer] Iiqbwq5866 [facility] Personal BeePerson [facility] [id number] Vitamin D, 25-Hydroxy 62.4 ng/mL (Normal) Range: 30.0-100.0 Comments: Vitamin D deficiency has been defined by the [place] ofFlower Hospitalcine and an Endocrine Society practice guideline as alevel of serum 25-OH vitamin D less than 20 ng/mL (1,2).The Endocrine Society went on to further define vitamin Dinsufficiency as a level between 21 and 29 ng/mL (2).1. IOM ([place] of Medicine). 2010. Dietary reference intakes for calcium and D. [place]: The National Academies Press.2. Charles MF, Raissa OCONNELL, Nirmala ALBERT, et al. Evaluation, treatment, and prevention of vitamin D deficiency: an Endocrine Society clinical practice guideline. JCEM. 2010; 96(7):1911-30. :08 URINALYSIS, W/ MICRO (55717) Comments: PATIENT WAS FASTINGPERFORMED BY: [facility]6370 [facility] [id number] Microscopic Examination See below: (Normal) Comments: Microscopic was indicated and was performed. Microscopic Examination MICRON (Normal) Comments: Microscopic follows if indicated. Nitrite, Urine Negative (Normal) Urobilinogen,Semi-Qn 0.2 mg/dL (Normal) Range: 0.2-1.0 Bilirubin Negative (Normal) Occult Blood Negative (Normal) Ketones Negative (Normal) Glucose Negative (Normal) Protein Negative (Normal) WBC Esterase Negative (Normal) Appearance Clear (Normal) Urine-Color Yellow (Normal) pH 6.0 (Normal) Range: 5.0-7.5 Specific [place] 1.022 (Normal) Range: 1.005-1.030 :08 MICROALBUMIN: CREATININE RATIO Comments: PATIENT WAS FASTINGPERFORMED BY: NewsrepsMcl[facility] Hospital6370 [facility] [id number] (22321) AND (20246) Microalb/Creat Ratio <1.8 {mg/g_creat} (Normal) Range: 0.0-30.0 Microalbumin, Urine <3.0 ug/mL (Normal) Creatinine, Urine 164.4 mg/dL (Normal) :08 METABOLIC PANEL, COMPREHENSIVE Comments: PATIENT WAS FASTINGPERFORMED BY: [facility]6370 [facility] [id number] (79795) ALT (SGPT) 16 [iU]/L (Normal) Range: 0-44 [...] Glucose, Serum 108 mg/dL (Abnormal) Range: 65-99 34-Tcl-539407:08 LIPID PANEL (93721) Comments: PATIENT WAS FASTINGPERFORMED BY: [employer] [facility] [id number] LDL/HDL Ratio 1.4 {ratio_units} (Normal) Range: 0.0-3.6 [...] DIFF WBC Comments: PATIENT WAS FASTINGPERFORMED BY: [employer] [facility] [id number] Information: [id number] (68518) Immature Grans (Abs) 0.0 {x10E3/uL} (Normal) Range: [...] 5.5 {x10E3/uL} (Normal) Range: 3.4-10.8 :08 TSH (80550) Comments: PATIENT WAS FASTINGPERFORMED BY: [employer] [facility] [id number] TSH 4.000 {uIU/mL} (Normal) Range: 0.450-4.500 :03 HgA1C , Office (08110) HgA1C , Office 6.2 % (Normal) Range: 4.6 - 7.1 :03 Blood Glucose , Office (09220) Blood Glucose , Office 102 (Normal) 5-Dcn-982823:49 Throat Culture (02685) Comments: PATIENT NOT FASTINGPERFORMED BY: TweetwallKindred Hospital at RahwayHikfpw6908 [facility] [id number] Information: SRC:THRT [id number] Result 1 RRF (Normal) Comments: Routine respiratory alfredo Upper Respiratory Culture Final report (Normal) :02 Rapid Strep Test, Office (88631) Rapid Strep Test, Office Negative (Normal) :48 Influenza A&B Viral Comments: PATIENT NOT FASTINGPERFORMED BY: [employer] Peygmj0491 [address] [facility] [id number] Information: SRC:NOS [id number] Culture (50269) Viral Culture,Rapid,Influenza FLUABN (Normal) Comments: Negative:No Influenza A or B detected. 6-Rpz-833876:26 Rapid Flu (90559 x 2) Influenza A Ag negative (Normal) :30 HgA1C , Office (07290) HgA1C , Office 7.3 % (Abnormal) Range: 4.6 - 7.1 :30 Blood Glucose , Office (43991) Blood Glucose , Office 191 (Normal) :52 Microscopic Examination Comments: PATIENT WAS FASTINGPERFORMED BY: [employer] Izszjc8463 [facility] [id number] Bacteria None seen (Normal) Mucus Threads Present (Normal) Epithelial Cells (non renal) 0-10 {/hpf} (Normal) Range: 0 - 10 RBC 0-2 {/hpf} (Normal) Range: 0 - 2 WBC 0-5 {/hpf} (Normal) Range: 0 - 5 :52 CALCIFIDIOL (37041) VIT D 25 Comments: PATIENT WAS FASTINGPERFORMED BY: LabSaint [facility] Xkvfhb0983 [facility] [id number] Vitamin D, 25-Hydroxy 44.9 ng/mL (Normal) Range: 30.0-100.0 Comments: Vitamin D deficiency has been defined by the [place] ofMedicine and an Endocrine Society practice guideline as alevel of serum 25-OH vitamin D less than 20 ng/mL (1,2).The Endocrine Society went on to further define vitamin Dinsufficiency as a level between 21 and 29 ng/mL (2).1. IOM ([place] of [place]). 2010. Dietary reference intakes for calcium and D. [place]: The National Academies Press.2. Charles MF, Raissa NC, Nirmala ALBERT, et al. Evaluation, treatment, and prevention of vitamin D deficiency: an Endocrine Society clinical practice guideline. JCEM. 2010; 96(7):1911-30. :52 LIPID PANEL (26296) Comments: PATIENT WAS FASTINGPERFORMED BY: iCreate SoftwareKindred Hospital at RahwayYjgchw2599 [facility] [id number] LDL/HDL Ratio 2.4 {ratio_units} (Normal) Range: 0.0-3.6 [...] 196 mg/dL (Normal) Range: 100-199 :52 TSH (20871) Comments: PATIENT WAS FASTINGPERFORMED BY: iCreate SoftwareKindred Hospital at RahwayMehgfy7275 [facility] [id number] TSH 4.480 {uIU/mL} (Normal) Range: 0.450-4.500 :52 URINALYSIS, W/ MICRO (00997) Comments: PATIENT WAS FASTINGPERFORMED BY: NewsrepsMclaren [facility] Hospital6370 [facility] [id number] Microscopic Examination See below: (Normal) Comments: Microscopic was indicated and was performed. Microscopic Examination MICRON (Normal) Comments: Microscopic follows if indicated. Nitrite, Urine Negative (Normal) Urobilinogen,Semi-Qn 0.2 mg/dL (Normal) Range: 0.2-1.0 Bilirubin Negative (Normal) Occult Blood Negative (Normal) Ketones Negative (Normal) Glucose Negative (Normal) Protein Negative (Normal) WBC Esterase Negative (Normal) Appearance Clear (Normal) Urine-Color Yellow (Normal) pH 6.0 (Normal) Range: 5.0-7.5 Specific [place] 1.024 (Normal) Range: 1.005-1.030 :52 MICROALBUMIN: CREATININE RATIO Comments: PATIENT WAS FASTINGPERFORMED BY: TweetwallKindred Hospital at RahwayFpdoou4746 [facility] [id number] (18287) AND (40155) Microalb/Creat Ratio <2.2 {mg/g_creat} (Normal) Range: 0.0-30.0 Microalbumin, Urine <3.0 ug/mL (Normal) Range: 0.0-17.0 Creatinine, Urine 135.9 mg/dL (Normal) Range: 22.0-328.0 :52 METABOLIC PANEL, COMPREHENSIVE Comments: PATIENT WAS FASTINGPERFORMED BY: [employer] Ojqerb4055 [facility] [id number]; will review at 02/21 appt (29290) ALT (SGPT) 13 [iU]/L (Normal) Range: 0-44 [...] Glucose, Serum 130 mg/dL (Abnormal) Range: 65-99 99-Rjn-55583:52 CBC W/AUTO DIFF WBC Comments: PATIENT WAS FASTINGPERFORMED BY: LabSaint [facility] Hospital Myqlxl9484 [facility] [id number] Information: [id number] (34626) Immature Grans (Abs) 0.0 {x10E3/uL} (Normal) Range: [...] (Normal) Range: 3.4-10.8 :56 HgA1C , Office (99396) HgA1C , Office 5.9 % (Normal) Range: 4.6 - 7.1 :56 Blood Glucose , Office (04504) Blood Glucose , Office 103 (Normal) :35 HgA1C , Office (12712) HgA1C , Office 6.0 % (Normal) Range: 4.6 - 7.1 :34 Blood Glucose , Office (73474) Blood Glucose , Office 135 (Normal) :45 Potassium Comments: Test performed at:[facility] Dyhdwkigkp3559 [place] [address] K 4.3 mmol/L (Normal) Range: 3.5-5.1 :54 Comp. Metabolic Panel (14) Comments: PATIENT WAS FASTINGPERFORMED BY: [facility] Fvwixh8243 [facility] [id number] Information: [id number] ALT (SGPT) 11 [iU]/L (Normal) Range: 0-44 [...] Glucose, Serum 117 mg/dL (Abnormal) Range: 65-99 24-Lyj-38401:54 Lipid Panel With LDL/HDL Comments: PATIENT WAS FASTINGPERFORMED BY: [employer]70 [facility] [id number] Ratio LDL/HDL Ratio 2.1 {ratio_units} Range: 0.0-3.6 [...] 2.860 {uIU/mL} Comments: PATIENT WAS FASTINGPERFORMED BY: [employer]6370 [facility] [id number] 9:54 (Normal) Range: 0.450-4.500 02-Aug-2014 Vitamin D, 25-Hydroxy 61.9 ng/mL (Normal) Comments: PATIENT WAS FASTINGPERFORMED BY: [employer] Erpbfu6304 [facility] [id number] 9:54 Range: 30.0-100.0 Comments: Vitamin D deficiency has been defined by the [place] ofMedicine and an Endocrine Society practice guideline as alevel of serum 25-OH vitamin D less than 20 ng/mL (1,2).The Endocrine Society went on to further define vitamin Dinsufficiency as a level between 21 and 29 ng/mL (2).1. IOM ([place] of [place]). 2010. Dietary reference intakes for calcium and D. [place]: The National Academies Press.2. Raissa Harrison, Nirmala ALBERT, et al. Evaluation, treatment, and prevention of vitamin D deficiency: an Endocrine Society clinical practice guideline. JCEM. 2010; 96(7):1911-30. :13 HgA1C , Office (82529) HgA1C , Office 6.8 % (Normal) Range: 4.6 - 7.1 :13 Blood Glucose , Office (84648) Blood Glucose , Office 218 (Normal) :24 Microscopic Examination Comments: PATIENT WAS FASTINGPERFORMED BY: [employer]6370 [facility] [id number] Bacteria None seen (Normal) Mucus Threads Present (Normal) Epithelial Cells (non renal) None seen {/hpf} (Normal) Range: 0 - 10 RBC 0-2 {/hpf} (Normal) Range: 0 - 2 WBC 0-5 {/hpf} (Normal) Range: 0 - 5 :24 Vitamin D Hydroxy (77245) Comments: PATIENT WAS FASTINGPERFORMED BY: [employer]6370 [facility]Person [facility] [id number] Vitamin D, 25-Hydroxy 35.7 ng/mL (Normal) Range: 30.0-100.0 Comments: Vitamin D deficiency has been defined by the [place] ofMedicine and an Endocrine Society practice guideline as alevel of serum 25-OH vitamin D less than 20 ng/mL (1,2).The Endocrine Society went on to further define vitamin Dinsufficiency as a level between 21 and 29 ng/mL (2).1. IOM ([place]). 2010. Dietary reference intakes for calcium and D. [place]: The National Academies Press.2. Raissa Harrison, Nirmala ALBERT, et al. Evaluation, treatment, and prevention of vitamin D deficiency: an Endocrine Society clinical practice guideline. JCEM. 2010; 96(7):1911-30. :24 URINALYSIS, W/ MICRO (46841) Comments: PATIENT WAS FASTINGPERFORMED BY: [employer] Cqjysh3523 [facility] [id number] Microscopic Examination See below: (Normal) Comments: Microscopic was indicated and was performed. Microscopic Examination MICRON (Normal) Comments: Microscopic follows if indicated. Nitrite, Urine Negative (Normal) Urobilinogen,Semi-Qn 0.2 mg/dL (Normal) Range: 0.0-1.9 Bilirubin Negative (Normal) Occult Blood Negative (Normal) Ketones Negative (Normal) Glucose Negative (Normal) Protein Negative (Normal) WBC Esterase Negative (Normal) Appearance Clear (Normal) Urine-Color Yellow (Normal) pH 6.0 (Normal) Range: 5.0-7.5 Specific [place] 1.025 (Normal) Range: 1.005-1.030 63-Koy-875965:24 TSH (89427) Comments: PATIENT WAS FASTINGPERFORMED BY: [employer] Ncvfks6787 [facility] [id number] TSH 2.740 {uIU/mL} (Normal) Range: 0.450-4.500 65-Aqa-373726:24 MICROALBUMIN: CREATININE RATIO Comments: PATIENT WAS FASTINGPERFORMED BY: TweetwallKindred Hospital at RahwayAwbmma0079 [facility] [id number] (90547) AND (90808) Microalb/Creat Ratio <1.5 {mg/g_creat} (Normal) Range: 0.0-30.0 Microalbumin, Urine <3.0 ug/mL (Normal) Range: 0.0-17.0 Creatinine, Urine 205.5 mg/dL (Normal) Range: 22.0-328.0 48-Idq-770561:24 METABOLIC PANEL, COMPREHENSIVE Comments: PATIENT WAS FASTINGPERFORMED BY: [employer] Xrstao4154 [facility] [id number] (48564) ALT (SGPT) 13 [iU]/L (Normal) Range: 0-44 [...] Glucose, Serum 138 mg/dL (Abnormal) Range: 65-99 85-Vpz-967768:24 LIPID PANEL (17995) Comments: PATIENT WAS FASTINGPERFORMED BY: LabCoKindred [facility] RahwayAccukq9480 [facility] [id number] LDL/HDL Ratio 3.2 {ratio_units} (Normal) Range: 0.0-3.6 [...] Cholesterol, Total 221 mg/dL (Abnormal) Range: 100-199 39-Kpb-398847:24 CBC W/AUTO DIFF WBC Comments: PATIENT WAS FASTINGPERFORMED BY: [facility] HospitalCoScott Ville [id number] [facility] [id number] Information: [id number] (35114) Immature Grans (Abs) 0.0 {x10E3/uL} (Normal) Range: [...] 4.14-5.80 WBC 5.0 {x10E3/uL} (Normal) Range: 3.4-10.8 68-Gfo-962799:00 Fecal Occult Blood , Office (39127) Fecal Occult Blood , Office (Inhouse) negative (Normal) 12-Yul-056213:57 PSA (PROSTATE SPECIFIC Comments: PATIENT NOT FASTINGPERFORMED BY: [place] [id number] [facility] [id number] Information: [id number] ANTIGEN) (V76.44) Prostate Specific Ag, 1.5 ng/mL (Normal) Range: 0.0-4.0 Serum Comments: Dee ECLIA methodology. .According to the [place] U[employer] Association, Serum PSA shoulddecrease and remain [...] of malignant disease. :17 HgA1C , Office (71419) HgA1C , Office 7.0 % (Normal) Range: 4.6 - 7.1 :17 Blood Glucose , Office (30808) Blood Glucose , Office 118 (Normal) :50 HgA1C , Office (61917) HgA1C , Office 7.6 % (Abnormal) Range: 4.6 - 7.1 :50 Blood Glucose , Office (67973) Blood Glucose , Office 142 (Normal) 4-Nne-541229:44 Microscopic Examination Comments: PATIENT WAS FASTINGPERFORMED BY: BEST Logistics TechnologyPerson [facility] [id number] Bacteria None seen (Normal) Mucus Threads Present (Normal) Epithelial Cells (non renal) None seen {/hpf} (Normal) Range: 0 - 10 RBC 0-2 {/hpf} (Normal) Range: 0 - 2 WBC 0-5 {/hpf} (Normal) Range: 0 - 5 :32 URINALYSIS, W/ MICRO (63405) Comments: PATIENT WAS FASTINGPERFORMED BY: ChartCubeRobley [facility] [id number] Microscopic Examination See below: (Normal) Comments: Microscopic was indicated and was performed. Microscopic Examination MICRON (Normal) Comments: Microscopic follows if indicated. Nitrite, Urine Negative (Normal) Urobilinogen,Semi-Qn 0.2 mg/dL (Normal) Range: 0.0-1.9 Bilirubin Negative (Normal) Ketones Negative (Normal) Occult Blood Negative (Normal) Glucose Trace (Abnormal) Protein Negative (Normal) WBC Esterase Negative (Normal) Appearance Clear (Normal) Urine-Color Yellow (Normal) pH 6.0 (Normal) Range: 5.0-7.5 Specific [place] 1.024 (Normal) Range: 1.005-1.030 :32 MICROALBUMIN: CREATININE RATIO Comments: PATIENT WAS FASTINGPERFORMED BY: [employer] Qqbewf8004 [facility] [id number] (89037) AND (42360) Microalb/Creat Ratio 1.3 {mg/g_creat} (Normal) Range: 0.0-30.0 Creatinine, Urine 188.3 mg/dL (Normal) Range: 22.0-328.0 Microalbumin, Urine 2.4 ug/mL (Normal) Range: 0.0-17.0 :32 TSH (39017) Comments: PATIENT WAS FASTINGPERFORMED BY: [employer] Xdmvdl1891 [facility] [id number] TSH 3.250 {uIU/mL} (Normal) Range: 0.450-4.500 2-Jky-273936:32 METABOLIC PANEL, COMPREHENSIVE Comments: PATIENT WAS FASTINGPERFORMED BY: [employer] [facility] [id number]; will review at 10/08 appt (89656) ALT (SGPT) 22 [iU]/L (Normal) Range: 0-44 [...] Glucose, Serum 152 mg/dL (Abnormal) Range: 65-99 3-Chk-497269:32 LIPID PANEL (44815) Comments: PATIENT WAS FASTINGPERFORMED BY: StackAdapt [facility] [id number] LDL/HDL Ratio 2.0 {ratio_units} (Normal) Range: 0.0-3.6 [...] MANUAL DIFF Comments: PATIENT WAS FASTINGPERFORMED BY: [employer] [facility] [id number] Information: [id number] (42671) Immature Grans (Abs) 0.0 {x10E3/uL} (Normal) Range: [...] (Normal) Range: 3.4-10.8 :37 HgA1C , Office (88819) HgA1C , Office 7.1 % (Normal) Range: 4.6 - 7.1 :37 Blood Glucose , Office (26239) Blood Glucose , Office 142 (Normal) 93-Fnl-261090:39 Microscopic Examination Comments: PATIENT WAS FASTINGPERFORMED BY: [employer]Chat by [employer]70 [employer] [place] [id number] Bacteria None seen (Normal) Mucus Threads Present (Normal) Epithelial Cells (non renal) None seen {/hpf} (Normal) Range: 0 - 10 RBC None seen {/hpf} (Normal) Range: 0 - 3 WBC 0-5 {/hpf} (Normal) Range: 0 - 5 :13 Vitamin D Hydroxy (20770) Comments: PATIENT WAS FASTINGPERFORMED BY: [employer] [place] [id number] Vitamin D, 25-Hydroxy 35.9 ng/mL (Normal) Range: 30.0-100.0 Comments: Vitamin D deficiency has been defined by the [place] ofMedicine and an Endocrine Society practice guideline as alevel of serum 25-OH vitamin D less than 20 ng/mL (1,2).The Endocrine Society went on to further define vitamin Dinsufficiency as a level between 21 and 29 ng/mL (2).1. IOM ([place] of [place]). 2010. Dietary reference intakes for calcium and D. [place]: The National Academies Press.2. Charles MF, Raissa OCONNELL, Nirmala ALBERT, et al. Evaluation, treatment, and prevention of vitamin D deficiency: an Endocrine Society clinical practice guideline. JCEM. 2010; 96(7):1911-30. :13 TSH (59278) Comments: PATIENT WAS FASTINGPERFORMED BY: [employer]6370 [employer] [place] [id number] TSH 4.190 {uIU/mL} (Normal) Range: 0.450-4.500 :13 URINALYSIS, W/ MICRO (84726) Comments: PATIENT WAS FASTINGPERFORMED BY: Tweetwallrp Wchfbj7654 [facility]Person [facility] [id number] Microscopic Examination MICRON (Normal) Comments: Microscopic follows if indicated. Microscopic Examination See below: (Normal) Nitrite, Urine Negative (Normal) Urobilinogen,Semi-Qn 0.2 mg/dL (Normal) Range: 0.0-1.9 Bilirubin Negative (Normal) Occult Blood Negative (Normal) Ketones Negative (Normal) Glucose Negative (Normal) Protein Negative (Normal) Appearance Clear (Normal) WBC Esterase Negative (Normal) Urine-Color Yellow (Normal) pH 7.0 (Normal) Range: 5.0-7.5 Specific [place] 1.023 (Normal) Range: 1.005-1.030 :13 MICROALBUMIN: CREATININE RATIO Comments: PATIENT WAS FASTINGPERFORMED BY: Tweetwallrp Xslpxw0134 [facility] [id number] (07663) AND (07586) Microalb/Creat Ratio 1.4 {mg/g_creat} (Normal) Range: 0.0-30.0 Creatinine, Urine 177.1 mg/dL (Normal) Range: 22.0-328.0 Microalbumin, Urine 2.5 ug/mL (Normal) Range: 0.0-17.0 :13 METABOLIC PANEL, COMPREHENSIVE Comments: PATIENT WAS FASTINGPERFORMED BY: [employer] by [employer]70 [facility] [id number] (69884) ALT (SGPT) 17 [iU]/L (Normal) Range: 0-44 [...] mg/dL (Abnormal) Range: 65-99 :13 LIPID PANEL (03659) Comments: PATIENT WAS FASTINGPERFORMED BY: [employer]6370 [facility] [id number] LDL/HDL Ratio 1.8 {ratio_units} (Normal) Range: 0.0-3.6 LDL Cholesterol Calc 86 mg/dL (Normal) Range: 0-99 VLDL Cholesterol Ezequiel 18 mg/dL (Normal) Range: 5-40 HDL Cholesterol 48 mg/dL (Normal) Comments: According to ATP-III Guidelines, HDL-C >59 mg/dL is considered anegative risk factor for CHD. Triglycerides 92 mg/dL (Normal) Range: 0-149 Cholesterol, Total 152 mg/dL (Normal) Range: 100-199 71-Xzb-00759:13 CBC WITH MANUAL DIFF Comments: PATIENT WAS FASTINGPERFORMED BY: LabCoKindred Hospital at RahwayKarelp0715 [facility] [id number] Information: [id number] (50316) Immature Grans (Abs) 0.0 {x10E3/uL} (Normal) Range: [...] (Normal) Range: 3.4-10.8 :31 HgA1C , Office (91550) HgA1C , Office 6.7 % (Normal) Range: 4.6 - 7.1 :31 Blood Glucose , Office (59050) Blood Glucose , Office 141 (Normal) :55 HgA1C , Office (08312) HgA1C , Office 6.4 % (Normal) Range: 4.6 - 7.1 :55 Blood Glucose , Office (49553) Blood Glucose , Office 116 (Normal) :33 Microscopic Examination Comments: PATIENT WAS FASTINGPERFORMED BY: [employer]6370 [facility] [id number] Bacteria None seen (Normal) Mucus Threads Present (Normal) Epithelial Cells (non renal) None seen {/hpf} (Normal) Range: 0 - 10 RBC 0-3 {/hpf} (Normal) Range: 0 - 3 WBC 0-5 {/hpf} (Normal) Range: 0 - 5 :33 PSA (PROSTATE SPECIFIC Comments: PATIENT WAS FASTINGPERFORMED BY: [employer]6370 [facility] [id number] ANTIGEN) (V76.44) Prostate Specific Ag, 1.5 ng/mL (Normal) Range: 0.0-4.0 Serum Comments: Factual ECLIA methodology. .According to the [place] [employer] Association, Serum PSA shoulddecrease and remain at undetectable levels after radicalprostatectomy. The AUA defines biochemical recurrence as an initialPSA value 0.2 ng/mL or greater followed by a subsequent confirmatoryPSA value 0.2 ng/mL or greater.Values obtained with d ifferent assay methods or kits cannot be usedinterchangeably. Results cannot be interpreted as absolute evidenceof the presence or absence of malignant disease. :33 TSH (81365) Comments: PATIENT WAS FASTINGPERFORMED BY: NewsrepsMcl[facility]6370 [facility] [id number] TSH 2.770 {uIU/mL} (Normal) Range: 0.450-4.500 :33 URINALYSIS, W/ MICRO (30741) Comments: PATIENT WAS FASTINGPERFORMED BY: [place] [id number] [facility] [id number] Microscopic Examination See below: (Normal) Microscopic Examination MICRON (Normal) Comments: Microscopic follows if indicated. Nitrite, Urine Negative (Normal) Urobilinogen,Semi-Qn 0.2 mg/dL (Normal) Range: 0.0-1.9 Bilirubin Negative (Normal) Occult Blood Negative (Normal) Ketones Negative (Normal) Glucose Negative (Normal) Protein Negative (Normal) WBC Esterase Negative (Normal) Appearance Clear (Normal) Urine-Color Yellow (Normal) pH 6.0 (Normal) Range: 5.0-7.5 Specific [place] 1.026 (Normal) Range: 1.005-1.030 87-Cls-954770:33 MICROALBUMIN: CREATININE RATIO Comments: PATIENT WAS FASTINGPERFORMED BY: NewsrepsMcl[facility]6370 [facility] [id number] (41838) AND (70235) Microalb/Creat Ratio 1.8 {mg/g_creat} (Normal) Range: 0.0-30.0 Microalbumin, Urine 3.6 ug/mL (Normal) Range: 0.0-17.0 Creatinine, Urine 203.4 mg/dL (Normal) Range: 22.0-328.0 05-Ehd-118348:33 METABOLIC PANEL, COMPREHENSIVE Comments: PATIENT WAS FASTINGPERFORMED BY: [facility]6370 [facility] [id number] (07435) ALT (SGPT) 16 [iU]/L (Normal) Range: 0-44 [...] Glucose, Serum 114 mg/dL (Abnormal) Range: 65-99 03-Hyu-484694:33 LIPID PANEL (57019) Comments: PATIENT WAS FASTINGPERFORMED BY: [employer] [facility] [id number] LDL/HDL Ratio 1.3 {ratio_units} (Normal) Range: 0.0-3.6 LDL Cholesterol Calc 63 mg/dL (Normal) Range: 0-99 VLDL Cholesterol Ezequiel 25 mg/dL (Normal) Range: 5-40 HDL Cholesterol 47 mg/dL (Normal) Comments: According to ATP-III Guidelines, HDL-C >59 mg/dL is considered anegative risk factor for CHD. Triglycerides 123 mg/dL (Normal) Range: 0-149 Cholesterol, Total 135 mg/dL (Normal) Range: 100-199 29-Rzm-872480:33 CBC WITH MANUAL DIFF Comments: PATIENT WAS FASTINGPERFORMED BY: TweetwallNor-Lea General HospitalPczivk2157 [facility] [id number] Information: [id number] (97798) Immature Grans (Abs) 0.0 {x10E3/uL} (Normal) Range: [...] (Normal) Range: 4.0-10.5 :22 HgA1C , Office (99888) HgA1C , Office 6.3 % (Normal) Range: 4.6 - 7.1 :22 Blood Glucose , Office (48057) Blood Glucose , Office 109 (Normal) :49 ALDOS 9.3 ng/dL (Normal) Range: 0.0-30.0 :49 CATU tDOP24 674 Range: 0-510 {ug/24_hr} Comments: TESTING PERFORMED AT [facility]. ORIGINAL REPORT ONFILE IN LAB [...] metanephrines and plasma catecolamines. TESTING PERFORMED AT [facility]. ORIGINAL REPORT ONFILE IN LAB [...] >150 0.39 - 1.31Performed at: - [facility] [address] [id number] Director: Bruno Williamson MD, Phone: [phone] - (Normal) M joceline y - 2 0 1 3 9 : 4 9 27-Xgv-63654:49 VMA tVMA24 4.6 {mg/24_hr} (Normal) Range: 0.0-7.5 [...] 126 mg/dLsuggests DIABETES MELLITUS per A.D.A. criteria. 10-Jyz-166741:15 CBCD ANC 3.6 3/uL (Normal) Range: 2.0-7.7 [...] 4.6-6.2 WBC 6.4 {k/mm3} (Normal) Range: 4.4-11.0 50-Sto-85358:00 BRAIN W/WO CONTRAST Radiology Report See Note [...] Stauffer M.D.August 08, 2012 at 10:05:25 PM [id number] [id number] Signed AH/AH If you are the referring physician and would like to consult with theradiologist who provided this interpretation, please contact Chad Mast at [phone]. If this radiologist is unavailable,you will be directed to another radiologist to assist. If you are a patient with a question regarding this report, pleasecontactyour referring physician directly . Professional Interpretation Provided By: Chipolo, Phone , These documents contain legally protected [...] on 08/08/122207 Sign by: MIKHAIL STAUFFER MD 97-Bix-682704:32 BRAIN/HEAD WITHOUT CONTRAST Radiology Report See Note [...] Fontenot M.D.August 04, 2012 at 5:16:58 PM [id number] Signed DN/DN If you are the referring physician and would like to consult with theradiologist who pro vided this interpretation, please contact Heather Ng M.D. at [phone]. If this radiologist is unavailable, youwillbe directed to another radiologist to assist. If you are a patient with a quest ion regarding this report, pleasecontactyour referring physician directly. Professional Interpretation Provided By: Chipolo, Phone , These documents contain legally pro [...] 08/04/121718 Sign by: ___ HEATHER FONTENOT MD 48-Rwd-093212:36 CBCD ANC 4.1 3/uL (Normal) Range: 2.0-7.7 [...] METABOLIC PANEL, Comments: PATIENT NOT FASTINGPERFORMED BY: LabCoKindred Hospital at RahwayWkitka3556 [facility] [id number] Information: [id number] COMPREHENSIVE (54381) ALT (SGPT) 13 [iU]/L (Normal) Range: 0-44 [...] (Normal) Range: 65-99 :01 HgA1C , Office (34407) HgA1C , Office 6.2 % (Normal) Range: 4.6 - 7.1 :01 Blood Glucose , Office (09459) Blood Glucose , Office 89 (Normal) :48 Microscopic Examination Comments: PATIENT WAS FASTINGPERFORMED BY: LabCoKindred Hospital at RahwayVnceme9131 [facility] [id number] Bacteria Few (Normal) Mucus Threads Present (Normal) Epithelial Cells (non renal) None seen {/hpf} (Normal) Range: 0 - 10 RBC 0-3 {/hpf} (Normal) Range: 0 - 3 WBC 0-5 {/hpf} (Normal) Range: 0 - 5 :48 TSH (56367) Comments: PATIENT WAS FASTINGPERFORMED BY: iCreate SoftwareNor-Lea General HospitalRzoyhk8415 [facility] [id number] TSH 5.340 {uIU/mL} (Abnormal) Range: 0.450-4.500 :48 URINALYSIS, W/ MICRO (19997) Comments: PATIENT WAS FASTINGPERFORMED BY: iCreate SoftwareNor-Lea General HospitalVvguxg4923 [facility] [id number] Microscopic Examination See below: (Normal) Microscopic Examination MICRON (Normal) Comments: Microscopic follows if indicated. Bilirubin Negative (Normal) Nitrite, Urine Negative (Normal) Urobilinogen,Semi-Qn 0.2 mg/dL (Normal) Range: 0.0-1.9 Occult Blood Negative (Normal) Ketones Negative (Normal) Glucose Negative (Normal) Protein Negative (Normal) WBC Esterase Negative (Normal) Appearance Clear (Normal) pH 5.5 (Normal) Range: 5.0-7.5 Urine-Color Yellow (Normal) Specific [place] 1.028 (Normal) Range: 1.005-1.030 :48 MICROALBUMIN: CREATININE RATIO Comments: PATIENT WAS FASTINGPERFORMED BY: iCreate SoftwareNor-Lea General HospitalVkizzl0805 [facility] [id number] (37624) AND (70795) Microalb/Creat Ratio 1.6 {mg/g_creat} (Normal) Range: 0.0-30.0 Creatinine, Urine 195.7 mg/dL (Normal) Range: 22.0-328.0 Microalbumin, Urine 3.2 ug/mL (Normal) Range: 0.0-17.0 :48 METABOLIC PANEL, COMPREHENSIVE Comments: PATIENT WAS FASTINGPERFORMED BY: iCreate SoftwareKindred Hospital at RahwayWedkvl4378 [facility] [id number] (27933) ALT (SGPT) 16 [iU]/L (Normal) Range: 0-44 [...] mg/dL (Normal) Range: 65-99 :48 LIPID PANEL (47127) Comments: PATIENT WAS FASTINGPERFORMED BY: [employer]70 [facility] [id number] LDL Cholesterol Calc 97 mg/dL (Normal) Range: [...] MANUAL DIFF Comments: PATIENT WAS FASTINGPERFORMED BY: [employer]6370 Editas MedicineFormerly [facility] [id number] Information: [id number] (05360) Immature Grans (Abs) 0.0 {x10E3/uL} (Normal) Range: [...] (Normal) Range: 4.0-10.5 :46 HgA1C , Office (48227) HgA1C , Office 6.1 % (Normal) Range: 4.6 - 7.1 :46 Blood Glucose , Office (14916) Blood Glucose , Office 91 (Normal) 0-Guq-580282:25 HEPATOBILLIARY IMG W/PHARM INT Radiology Report See [...] Cholecystokinin (0.02 ug/kg) was administered intravenously over v37-cblvmd period. The post CCK gallbladder ejection fraction iktbymowolms19 minutes following Cholecystokinin administration was noted to [...] Richmond M.D.December 24, 2011 at 8:34:10 PM [id number] S igned RB/RB If you are the referring physician and would like to consult with theradiologist who provided this interpretation, please contact Chad Aragon at [phone]. If this radiologist is un available, you will bedirected to another radiologist to assist. If you are a patient with a question regarding this report, pleasecontactyour referring physician directly. Professional Interpretation P rovided By: Chipolo, Phone , These documents contain legally protected [...] size of the right kidney. The right vamauqnysrwobc75.6 cm. Normal rolando al cortex. The right cortex measures 1.8 cm. Thereisno demonstrated renal mass or cyst. There is no right hydronephrosis. IMPRESSION:Sludge in the gallbladder lumen, with a thickened gallbladder wall .Correlation with nuclear medicine hepatobiliary scan is recommended. Signed:Jakob Hunt M.D.December 18, 2011 at 11:00:05 AM [id number] Signed GP/GP If you are the referring physician and would like to consult with theradiologist who provided this interpretation, please contact Chad Lao at [phone]. If this radiologist is unavailable, youwill be directed to another radiologist to assist. If you are a patient with a question regarding this report, pleasecontactyour referring physician directly. Professional Interpretation Provided By: Chipolo, Phone , These documents contain legally protected [...] Jakob Hunt MD :41 HgA1C , Office (88544) HgA1C , Office 6.2 % (Normal) Range: 4.6 - 7.1 :41 Blood Glucose , Office (04806) Blood Glucose , Office 115 (Normal) :37 HgA1C , Office (45104) HgA1C , Office 6.4 % (Normal) Range: 4.6 - 7.1 :37 Blood Glucose , Office (34688) Blood Glucose , Office 119 (Normal) :44 PSA (PROSTATE SPECIFIC Comments: PATIENT WAS FASTINGPERFORMED BY: CB LabMcl[facility]6370 [facility] [id number] ANTIGEN) (V76.44) Prostate Specific Ag, 1.7 ng/mL (Normal) Range: 0.0-4.0 Serum Comments: GarpunIA methodology. .According to the [place] [employer], Serum PSA shoulddecrease and remain at undetectable levels after radicalprostatectomy. The AUA defines biochemical recurrence as an initialPSA value 0.2 ng/mL or greater followed by a subsequent confirmatoryPSA value 0.2 ng/mL or greater.Values obtained with d ifferent assay methods or kits cannot be usedinterchangeably. Results cannot be interpreted as absolute evidenceof the presence or absence of malignant disease. :44 TSH (76748) Comments: PATIENT WAS FASTINGPERFORMED BY: [employer]6370 [facility] [id number] TSH 2.660 {uIU/mL} (Normal) Range: 0.450-4.500 :44 URINALYSIS, W/ MICRO (20624) Comments: PATIENT WAS FASTINGPERFORMED BY: [employer]6370 [facility] [id number] Microscopic Examination See below: (Normal) Microscopic Examination MICRON (Normal) Comments: Microscopic follows if indicated. Nitrite, Urine Negative (Normal) Urobilinogen,Semi-Qn 0.2 mg/dL (Normal) Range: 0.0-1.9 Bilirubin Negative (Normal) Occult Blood Negative (Normal) Ketones Negative (Normal) Glucose Negative (Normal) Protein Negative (Normal) WBC Esterase Negative (Normal) Appearance Clear (Normal) Urine-Color Yellow (Normal) pH 6.0 (Normal) Range: 5.0-7.5 Specific [place] 1.024 (Normal) Range: 1.005-1.030 :44 MICROALBUMIN: CREATININE RATIO Comments: PATIENT WAS FASTINGPERFORMED BY: Tweetwall Erfpmf7694 [facility] [id number] (62941) AND (43880) Microalb/Creat Ratio 1.1 {mg/g_creat} (Normal) Range: 0.0-30.0 Microalbumin, Urine 3.2 ug/mL (Normal) Range: 0.0-17.0 Creatinine, Urine 294.1 mg/dL (Normal) Range: 22.0-328.0 :44 Microscopic Examination Comments: PATIENT WAS FASTINGPERFORMED BY: iCreate SoftwareKindred Hospital at RahwayKaenhg1878 [facility] [id number] Bacteria None seen (Normal) Mucus Threads Present (Normal) Epithelial Cells (non renal) None seen {/hpf} (Normal) Range: 0 - 10 RBC 0-3 {/hpf} (Normal) Range: 0 - 3 WBC 0-5 {/hpf} (Normal) Range: 0 - 5 :44 METABOLIC PANEL, COMPREHENSIVE Comments: PATIENT WAS FASTINGPERFORMED BY: [employer]6370 [facility] [id number] (23052) ALT (SGPT) 21 [iU]/L (Normal) Range: 0-55 [...] mg/dL (Abnormal) Range: 65-99 :44 LIPID PANEL (46477) Comments: PATIENT WAS FASTINGPERFORMED BY: [employer] Slsacl6446 [facility] [id number] LDL/HDL Ratio 1.2 {ratio_units} (Normal) Range: 0.0-3.6 [...] MANUAL DIFF Comments: PATIENT WAS FASTINGPERFORMED BY: CampaignerCRMlin6370 [facility] [id number] Information: [id number] (60554) Immature Grans (Abs) 0.0 {x10E3/uL} (Normal) Range: [...] (Normal) Range: 4.0-10.5 :25 HgA1C , Office (32773) HgA1C , Office 6.2 % (Normal) Range: 4.6 - 7.1 :25 Blood Glucose , Office (61564) Blood Glucose , Office 84 (Normal) :56 Blood Glucose , Office (17865) Blood Glucose , Office 96 (Normal) 9-Pof-915764:29 SPINE, LUMBAR (ROUTINE) Radiology Report See Note [...] HEATHER FONTENOT MD :08 HgA1C , Office (59693) HgA1C , Office 6.3 % (Normal) Range: 4.6 - 7.1 :08 Blood Glucose , Office (25786) Blood Glucose , Office 108 (Normal) :50 URINALYSIS, W/ MICRO (04138) Comments: PATIENT WAS FASTINGPERFORMED BY: [employer] TechnologyPhasor Solutions [place] [id number] Microscopic Examination See below: (Normal) Microscopic Examination MICRON (Normal) Comments: Microscopic follows if indicated. Nitrite, Urine Negative (Normal) Urobilinogen,Semi-Qn 0.2 mg/dL (Normal) Range: 0.0-1.9 Bilirubin Negative (Normal) Occult Blood Negative (Normal) Ketones Negative (Normal) Glucose Negative (Normal) Protein Negative (Normal) WBC Esterase Negative (Normal) Appearance Clear (Normal) Urine-Color Yellow (Normal) pH 5.5 (Normal) Range: 5.0-7.5 Specific [place] 1.022 (Normal) Range: 1.005-1.030 :50 MICROALBUMIN: CREATININE RATIO Comments: PATIENT WAS FASTINGPERFORMED BY: BEST Logistics TechnologyPerson [facility] Hospital [id number] (11850) AND (30587) Microalb/Creat Ratio <.6 {mg/g_creat} (Normal) Range: 0.0-30.0 Creatinine, Urine 163.1 mg/dL (Normal) Range: 22.0-328.0 Microalbumin, Urine <1.0 ug/mL (Normal) Range: 0.0-17.0 Comments: Verified by repeat analysis :50 METABOLIC PANEL, COMPREHENSIVE Comments: PATIENT WAS FASTINGPERFORMED BY: [employer]Chat by [employer]70 [employer] [facility] [id number] (54282) ALT (SGPT) 16 [iU]/L (Normal) Range: 0-55 [...] mg/dL (Abnormal) Range: 65-99 :50 LIPID PANEL (32251) Comments: PATIENT WAS FASTINGPERFORMED BY: [employer] [facility] [id number] LDL Cholesterol Calc 68 mg/dL (Normal) Range: [...] DIFF Comments: PATIENT WAS FASTINGPERFORMED BY: [facility] Ngpqud2270 Rosado [facility] [id number] Information: [id number] (89808) Immature Grans (Abs) 0.0 {x10E3/uL} (Normal) Range: [...] Microscopic Examination Comments: PATIENT WAS FASTINGPERFORMED BY: [employer] Odejwo4638 [facility] [id number] Bacteria Few (Normal) Mucus Threads Present (Normal) Epithelial Cells (non renal) None seen {/hpf} (Normal) Range: 0 - 10 RBC None seen {/hpf} (Normal) Range: 0 - 3 WBC 0-5 {/hpf} (Normal) Range: 0 - 5 :58 HgA1C , Office (67120) HgA1C , Office 6.0 % (Normal) Range: 4.6 - 7.1 :58 Blood Glucose , Office (05151) Blood Glucose , Office 93 (Normal) :13 PSA (PROSTATE SPECIFIC Comments: PATIENT NOT FASTINGPERFORMED BY: [employer] Vefgsf5059 [facility] [id number] Information: [id number] ANTIGEN) (V76.44) Prostate Specific Ag, 1.5 ng/mL (Normal) Range: 0.0-4.0 Serum Comments: Dee ECLIA methodology. .According to the [place] [employer], Serum PSA shoulddecrease and remain [...] of malignant disease. :16 HgA1C , Office (52440) HgA1C , Office 6.2 % (Normal) Range: 4.6 - 7.1 :16 Blood Glucose , Office (79795) Blood Glucose , Office 196 (Normal) 9-Uft-790599:15 TSH (12652) Comments: PATIENT WAS FASTINGPERFORMED BY: NewsrepsMcl[facility] Hospital6370 [facility] [id number] TSH 3.200 {uIU/mL} (Normal) Range: 0.450-4.500 8-Vfm-399689:15 MICROALBUMIN: CREATININE RATIO Comments: PATIENT WAS FASTINGPERFORMED BY: NewsrepsMcl[facility] Hospital6370 [facility] [id number] ([id number]) AND (56724) Creatinine, Urine 168.7 mg/dL (Normal) Range: 22.0-328.0 Microalb/Creat Ratio 1.5 {mg/g_creat} (Normal) Range: 0.0-30.0 Microalbumin, Urine 2.5 ug/mL (Normal) Range: 0.0-17.0 9-Fvi-293729:15 METABOLIC PANEL, COMPREHENSIVE Comments: PATIENT WAS FASTINGPERFORMED BY: iCreate SoftwareKindred Hospital at RahwayCkkdqu0252 [facility] [id number] (31470) A/G Ratio 1.8 (Normal) Range: 1.1-2.5 Alkaline [...] Glucose, Serum 108 mg/dL (Abnormal) Range: 65-99 7-Cmx-357849:15 LIPID PANEL (09976) Comments: PATIENT WAS FASTINGPERFORMED BY: [employer]6370 [facility] [id number] LDL/HDL Ratio 1.8 {ratio_units} (Normal) Range: 0.0-3.6 HDL Cholesterol 49 mg/dL (Normal) Comments: According to ATP-III Guidelines, HDL-C >59 mg/dL is considered anegative risk factor for CHD. LDL Cholesterol Calc 86 mg/dL (Normal) Range: 0-99 VLDL Cholesterol Ezequiel 25 mg/dL (Normal) Range: 5-40 Cholesterol, Total 160 mg/dL (Normal) Range: 100-199 Triglycerides 123 mg/dL (Normal) Range: 0-149 5-Rgo-663844:15 CBC WITH MANUAL DIFF Comments: PATIENT WAS FASTINGPERFORMED BY: [employer] by [employer]70 [facility] [id number] Information: [id number] (86938) Immature Grans (Abs) 0.0 {x10E3/uL} (Normal) Range: [...] (Normal) Range: 4.0-10.5 :53 HgA1C , Office (25874) HgA1C , Office 6.3 % (Normal) Range: 4.6 - 7.1 :53 Blood Glucose , Office (57083) Blood Glucose , Office 123 (Normal) :51 HgA1C , Office (99554) HgA1C , Office 6.2 % (Normal) Range: 4.6 - 7.1 :51 Blood Glucose , Office (37202) Blood Glucose , Office 93 (Normal) 89-Ity-390284:01 Microscopic Examination Comments: PATIENT WAS FASTINGPERFORMED BY: LabCoKindred Hospital at RahwayShnuka6640 [facility] [id number] Bacteria Few (Normal) Mucus Threads Present (Normal) Epithelial Cells (non renal) None seen {/hpf} (Normal) Range: 0 - 10 RBC 0-3 {/hpf} (Normal) Range: 0 - 3 WBC 0-5 {/hpf} (Normal) Range: 0 - 5 30-Pxm-846349: PSA (PROSTATE SPECIFIC Comments: PATIENT WAS FASTINGPERFORMED BY: [employer] [facility] [id number] ANTIGEN) (V76.44) Prostate Specific Ag, 1.4 ng/mL (Normal) Range: 0.0-4.0 Serum Comments: GarpunIA methodology..According to the [place] [employer], Serum PSA shoulddecrease and remain at undetectable levels after radicalprostatectomy. The AUA defines biochemical recurrence a s an initialPSA value 0.2 ng/mL or greater followed by a subsequent confirmatoryPSA value 0.2 ng/mL or greater.Values obtained with different assay methods or kits cannot be usedinterchangeably. Results cannot be interpreted as absolute evidenceof the presence or absence of malignant disease. : TSH (34372) Comments: PATIENT WAS FASTINGPERFORMED BY: [employer] by [employer]70 [facility] [id number] TSH 3.670 {uIU/mL} (Normal) Range: 0.450-4.500 42-Rxn-757522: URINALYSIS, W/ MICRO (38248) Comments: PATIENT WAS FASTINGPERFORMED BY: [employer]6370 [facility] [id number] Microscopic Examination See below: (Normal) Bilirubin Negative (Normal) Microscopic Examination MICRON (Normal) Comments: Microscopic follows if indicated. Nitrite, Urine Negative (Normal) Urobilinogen,Semi-Qn 0.2 mg/dL (Normal) Range: 0.0-1.9 Glucose Negative (Normal) Ketones Negative (Normal) Occult Blood Negative (Normal) Protein Negative (Normal) WBC Esterase Negative (Normal) Appearance Clear (Normal) pH 6.0 (Normal) Range: 5.0-7.5 Specific [place] 1.024 (Normal) Range: 1.005-1.030 Urine-Color Yellow (Normal) 61-Jor-675009: MICROALBUMIN: CREATININE RATIO Comments: PATIENT WAS FASTINGPERFORMED BY: [employer]70 [facility] [id number] ([id number]) AND (22245) Microalb/Creat Ratio <.4 {mg/g_creat} (Normal) Range: 0.0-30.0 Microalbumin, Urine <1.0 ug/mL (Normal) Range: 0.0-17.0 Creatinine, Urine 226.9 mg/dL (Normal) Range: 22.0-328.0 16-Ucb-199726:01 METABOLIC PANEL, COMPREHENSIVE Comments: PATIENT WAS FASTINGPERFORMED BY: LabMclaren [facility]on Hospital6370 [facility] [id number] (65357) A/G Ratio 2.0 (Normal) Range: 1.1-2.5 Alkaline [...] Glucose, Serum 93 mg/dL (Normal) Range: 65-99 17-Edx-677588:01 LIPID PANEL (93112) Comments: PATIENT WAS FASTINGPERFORMED BY: iCreate SoftwareKindred Hospital at RahwayAklgkh0391 [facility] [id number] HDL Cholesterol 46 mg/dL (Normal) Comments: According to ATP-III Guidelines, HDL-C >59 mg/dL is considered anegative risk factor for CHD. LDL Cholesterol Calc 70 mg/dL (Normal) Range: 0-99 LDL/HDL Ratio 1.5 {ratio_units} (Normal) Range: 0.0-3.6 VLDL Cholesterol Ezequiel 18 mg/dL (Normal) Range: 5-40 Cholesterol, Total 134 mg/dL (Normal) Range: 100-199 Triglycerides 89 mg/dL (Normal) Range: 0-149 93-Hyz-336069:01 CBC WITH MANUAL DIFF Comments: PATIENT WAS FASTINGPERFORMED BY: LabCoKindred Hospital at RahwayBpskln1499 [facility] [id number] Information: [id number] (34593) Baso (Absolute) 0.0 {x10E3/uL} (Normal) Range: 0.0-0.2 [...] (Normal) Range: 4.0-10.5 :59 HgA1C , Office (65311) HgA1C , Office 6.6 % (Normal) Range: 4.6 - 7.1 :59 Blood Glucose , Office (45654) Blood Glucose , Office 105 (Normal) :29 HgA1C , Office (50618) Comments: done km HgA1C , Office 7.2 % (Abnormal) Range: 4.6 - 7.1 :29 Blood Glucose , Office (03414) Comments: done Blood Glucose , Office 134 (Normal) :04 HgA1C , Office (63313) Comments: done km HgA1C , Office 6.7 % (Normal) Range: 4.6 - 7.1 :04 Blood Glucose , Office (99367) Comments: done Blood Glucose , Office 141 (Normal) :27 TSH (88807) Comments: PATIENT WAS FASTINGPERFORMED BY: iCreate SoftwareKindred Hospital at RahwayPlsnln2793 [facility] [id number] TSH 3.740 {uIU/mL} (Normal) Range: 0.450-4.500 :27 METABOLIC PANEL, COMPREHENSIVE Comments: PATIENT WAS FASTINGPERFORMED BY: TweetwallKindred Hospital at RahwayFtbpnq1778 [facility] [id number] (55414) A/G Ratio 1.7 (Normal) Range: 1.1-2.5 Albumin, [...] Range: 135-145 25-Oct-20089:27 LIPOPROTEIN, BLD, BY NMR (31445) Comments: PATIENT WAS FASTINGClinical Information: ADD [id number], [id number] PERFORMED BY: [facility]6370 [facility] [id number] Cholesterol, Total 149 mg/dL (Normal) HDL-C 41 [...] mg/dL (Normal) 25-Oct-20089:27 CBC WITH MANUAL DIFF (54443) Comments: PATIENT WAS FASTINGPERFORMED BY: LabCoKindred Hospital at RahwayHbegvx3098 [facility] [id number] Baso (Absolute) 0.0 {x10E3/uL} (Normal) Range: 0.0-0.2 [...] (Normal) Range: 4.0-10.5 :55 HgA1C , Office (90293) Comments: done km HgA1C , Office 5.9 % (Normal) Range: 4.6 - 7.1 :55 Blood Glucose , Office (79696) Comments: done km Blood Glucose , Office 115 (Normal) 96-Vcw-984081:10 TSH (66136) Comments: REpeat first week in September; PATIENT NOT FASTINGClinical Information: ADD DRAW FEE [id number] ADD J 15534 PERFORMED BY: TweetwallKindred Hospital at RahwayKvpvdd6743 [facility] [id number] TSH 3.800 {uIU/mL} (Normal) Range: 0.450-4.500 47-Ovd-336837:48 TSH (18326) Comments: PATIENT WAS FASTINGPERFORMED BY: [employer] Jgrmgh2911 [facility] [id number] TSH 4.538 {uIU/mL} (Abnormal) Range: 0.450-4.500 02-Omq-825640:48 MICROALBUMIN: CREATININE RATIO Comments: PATIENT WAS FASTINGPERFORMED BY: iCreate SoftwareKindred Hospital at RahwayGdiels[address] [place] [address] [id number] (23326) AND (80381) Creatinine, Urine 370.1 mg/dL (Abnormal) Range: 22.0-328.0 Microalb/Creat Ratio 1.0 {ug/mg_creat} (Normal) Range: 0.0-30.0 Microalbumin, Urine 3.7 ug/mL (Normal) Range: 0.0-17.0 70-Eqq-941929:48 METABOLIC PANEL, COMPREHENSIVE Comments: PATIENT WAS FASTINGPERFORMED BY: iCreate SoftwareScott Ville 5243370 [facility] [id number] (98694) A/G Ratio 1.6 (Normal) Range: 1.1-2.5 Albumin, [...] Sodium, Serum 140 mmol/L (Normal) Range: 135-145 94-Gxo-193789:48 CBC WITH MANUAL DIFF (50862) Comments: PATIENT WAS FASTINGClinical Information: ADD DRAW FEE [id number] ADD J [id number] PERFORMED BY: LabLeonard Ville 8873570 [facility] [id number] Baso (Absolute) 0.0 {x10E3/uL} (Normal) Range: 0.0-0.2 [...] {x10E3/uL} (Normal) Range: 4.0-10.5 :48 LIPID PANEL (76097) Comments: PATIENT WAS FASTINGPERFORMED BY: [facility]6370 [facility] [id number] Cholesterol, Total 171 mg/dL (Normal) Range: 100-199 HDL Cholesterol 45 mg/dL (Normal) Comments: According to ATP-III Guidelines, HDL-C >59 mg/dL is considered anegative risk factor for CHD. LDL Cholesterol Calc 99 mg/dL (Normal) Range: 0-99 LDL/HDL Ratio 2.2 {ratio_units} (Normal) Range: 0.0-3.6 Triglycerides 133 mg/dL (Normal) Range: 0-149 VLDL Cholesterol Ezequiel 27 mg/dL (Normal) Range: 5-40 99-Biw-902766:24 HgA1C , Office (92937) Comments: done km HgA1C , Office 6.5 % (Normal) Range: 4.6 - 7.1 :24 Blood Glucose , Office (84598) Comments: done Blood Glucose , Office 113 (Normal) :38 HgA1C , Office (13735) Comments: done sylvain HgA1C , Office 6.0 % (Normal) Range: 4.6 - 7.1 :38 Blood Glucose , Office (10240) Comments: done Blood Glucose , Office 132 (Normal) :09 PSA,TOT SCREEN 1.30 ng/mL (Normal) Range: 0.00-4.00 Comments: This test was performed using the TPSA method for theTopSchool chemistry system.Values obtained with different assay methods cannot be usedinterchangably.When changing PSA assays in the course of monito ring apatient, additional sequential testing should be carriedout to confirm baseline values. :00 HgA1C , Office (53453) Comments: done sylvain HgA1C , Office 7.4 % (Abnormal) Range: 4.6 - 7.1 :00 Blood Glucose , Office (89617) Comments: done Blood Glucose , Office 138 (Normal) :32 MYOCARD PERF SPECT REST/STRESS Radiology Report See Note (Normal) Comments: Exam Number: [id number] MYOCARDIAL PERFUSION SCAN TECHNIQUEThe patient was injected [...] of 60%. Reported By: LOUIS CASTILLO M.D. 73-Ztw-976239:27 URINALYSIS W/O MICRO (51013) Comments: PATIENT WAS FASTINGPERFORMED BY: [employer]Chat by [employer]70 Reocar [facility] HospitalSealedMediaPerson Memorial Hospital [id number] Appearance Clear (Normal) Bilirubin Negative (Normal) Glucose Negative (Normal) Ketones Negative (Normal) Microscopic Examination MICRON (Normal) Comments: Microscopic follows if indicated. Nitrite, Urine Negative (Normal) Occult Blood Negative (Normal) pH 7.5 (Normal) Range: 5.0-7.5 Protein Trace (Normal) Specific [place] 1.023 (Normal) Range: 1.005-1.030 Urine-Color Yellow (Normal) Urobilinogen,Semi-Qn 0.2 mg/dL (Normal) Range: 0.0-1.9 WBC Esterase Negative (Normal) 85-Gka-056451:27 TSH (01584) Comments: PATIENT WAS FASTINGPERFORMED BY: [employer]6370 [facility] [id number] TSH 3.505 {uIU/mL} (Normal) Range: 0.350-5.500 Comments: Adult TSH concentrations below 5.5 uIU/mL do not rule out the presence of subclinical hypothyroidism. :27 MICROALBUMIN URINE QUANT Comments: PATIENT WAS FASTINGPERFORMED BY: [facility]6370 [facility] [id number] (79034) Microalbum.,U,Random 4.4 ug/mL (Normal) Range: 0.0-17.0 :27 METABOLIC PANEL, COMPREHENSIVE Comments: PATIENT WAS FASTINGPERFORMED BY: LabMcl[facility] Hospital6370 [facility] [id number] (30366) A/G Ratio 1.8 (Normal) Range: 1.1-2.5 Albumin, [...] Serum 132 mg/dL (Abnormal) Range: 65-99 If -Moroccan >60 mL/min (Normal) Range: 60-137 Comments: Note: [...] Range: 135-145 :27 CBC WITH MANUAL DIFF (68451) Comments: PATIENT WAS FASTINGClinical Information: ADD [id number], ADD [id number] PERFORMED BY: [employer]70 [facility] [id number] Baso (Absolute) 0.0 {x10E3/uL} (Normal) Range: 0.0-0.2 [...] 11.7-15.0 WBC 5.5 {x10E3/uL} (Normal) Range: 4.0-10.5 24-Chx-780003:27 LIPID PANEL (66388) Comments: PATIENT WAS FASTINGPERFORMED BY: [employer] Skdsmz3198 [facility] [id number] LDL/HDL Ratio 2.4 {ratio_units} (Normal) Range: 0.0-3.6 Cholesterol, Total 212 mg/dL (Abnormal) Range: 100-199 Comment SPRCS (Normal) Comments: If initial LDL-cholesterol result is >100 mg/dL, assess forrisk factors. HDL Cholesterol 52 mg/dL (Normal) Range: 40-59 LDL Cholesterol Calc 123 mg/dL (Abnormal) Range: 0-99 Triglycerides 184 mg/dL (Abnormal) Range: 0-149 VLDL Cholesterol Ezequiel 37 mg/dL (Normal) Range: 5-40 :28 HgA1C , Office (41471) Comments: done HgA1C , Office 6.9 % (Normal) Range: 4.6 - 7.1 :28 Blood Glucose , Office (70076) Comments: done Blood Glucose , Office 157 (Normal) :58 HgA1C , Office (28991) Comments: done HgA1C , Office 6.6 % (Normal) Range: 4.6 - 7.1 :58 Blood Glucose , Office (22903) Comments: done Blood Glucose , Office 136 [...] was performed using the TPSA method for theTopSchool chemistry system.Values obtained with different assay methods cannot be usedinterchangably.When changing PSA assays in the course of monito ring apatient, additionaly sequential testing should be carriedout to confirm baseline values. :29 TSH 3.67 {uIU/mL} (Normal) Range: 0.34-4.82 :39 Blood Glucose , Office (05881) Comments: done km Blood Glucose , Office 98 (Normal) :39 HgA1C , Office (19614) Comments: done km HgA1C , Office 6.5 % (Normal) Range: 4.6 - 7.1 :57 HgA1C , Office (19913) HgA1C , Office 6.5 % (Normal) Range: 4.6 - 7.1 5-Gqr-418539:57 Blood Glucose , Office (35033) Blood Glucose , Office 138 (Normal) :03 HgA1C , Office (67968) HgA1C , Office 6.6 % (Normal) Range: 4.6 - 7.1 5-Gdw-572661:03 Blood Glucose , Office (36758) Blood Glucose , Office 92 (Normal) 07-Dbf-021908:28 LIVER ALB 3.6 g/dL (Normal) Range: 3.4-5.0 ALK P 96 U/L (Normal) Range: 50-136 ALT 47 [iU]/L (Normal) Range: 30-65 AST 20 U/L (Normal) Range: 15-37 D BILI 0.08 mg/dL (Normal) Range: 0.00-0.30 T BILI 0.44 mg/dL (Normal) Range: 0.00-1.00 T PROT 6.9 g/dL (Normal) Range: 6.4-8.2 92-Isc-341723:28 MICROALB:CRE UR MALB:CREAT 8.4 {mg/g_CRE} (Normal) MICROALBUMIN,UR 11.6 mg/L (Normal) UR CREAT 138.8 mg/dL (Normal) 49-Pzi-346113:28 PFLIP CHOL 188 mg/dL (Normal) Comments: <200 [...] 1 month- gen med / will need [facility] Indication: Physical exam WITHOUT abnormal findings [...] from H/O transient cerebral ischemia) : Reviewed Lead Cargoman Letter Indication: History of transient cerebral ischemia (Renamed from H/O transient cerebral ischemia) Hypertensive urgency : Reviewed Lead Cargoman Letter Indication: Hypertensive urgency Heart disease, hypertensive, [...] Current Prescription(s) Indication: Hypothyroidism Hypothyroidism : Reviewed Lead Cargoman Letter Indication: Hypothyroidism Uncontrolled type II diabetes [...] from there Planned Observations T4, FREE (THYROXINE) (33899)Indication: Hypothyroidism On: :48 Request T3, FREE (TRIDOTHYRONINE) (94006)Indication: Hypothyroidism On: :48 Request URINALYSIS, W/ MICRO (30436)Indication: Essential hypertension On: :47 Request MICROALBUMIN: CREATININE RATIO (02219) AND (66560)Indication: Essential hypertension On: :47 Request METABOLIC PANEL, COMPREHENSIVE (69926)Indication: Essential hypertension On: :47 Request CBC W/AUTO DIFF WBC (65860)Indication: Essential hypertension On: :47 Request LIPID PANEL (71820)Indication: Hypercholesterolemia On: :47 Request TSH (07090)Indication: Hypothyroidism On: :47 Request CALCIFIDIOL (12043) VIT D 25Indication: Vitamin D deficiency On: :47 Request Influenza A&B Viral Culture (65295)Indication: Flu-like symptoms On: 5-Fnm-040918:53 Request POTASSIUM SERUM (48829)Indication: Potassium disorder On: 26-Aho-871896:53 Request CALCIFEDIOL (26160)Indication: Vitamin D deficiency On: 33-Ohy-42075:36 Request TSH (10939)Indication: Hypothyroidism On: 73-Kre-42724:35 Request Lipid Panel (95722)Indication: Hypercholesterolemia On: :34 Request Metabolic Panel, Comprehensive (62675)Indication: Hypercholesterolemia On: 45-Rvo-94206:34 Request URINE VMA (34780)Indication: Hypertensive urgency On: 14-Wzp-446487:54 Request Catecholamines,24-Hour Urine (82704)Indication: Hypertensive urgency On: 32-Fhc-716865:54 Request RENIN (57050)Indication: Hypertensive urgency On: 76-Gaq-043518:54 Request ALDOSTERONE (76240)Indication: Hypertensive urgency On: 79-Dje-462496:54 Request METANEPHRINES (83385)Indication: Hypertensive urgency On: 38-Koq-375252:54 Request CBC (Auto) (81455)Indication: Hypertensive urgency On: 18-Hfg-765356:36 Request Metabolic Panel, Basic (23856)Indication: Hypertensive urgency On: 54-Kmc-193495:36 Request TSH (44492)Indication: Hypertensive urgency On: 30-Fgg-988493:24 Request CBC WITH MANUAL DIFF (12437)Indication: Hypertensive urgency On: 37-Ntz-027822:24 Request METABOLIC PANEL, COMPREHENSIVE (73411)Indication: Hypertensive urgency On: 46-Lac-855590:24 Request Troponin I (47106)Indication: Hypertensive urgency On: 16-Wxf-206292:20 Request CPK MB FRACTION (47330)Indication: Hypertensive urgency On: 16-Wyi-506833:20 Request CREATINE KINASE TOTAL (14657)Indication: Hypertensive urgency On: 50-Oga-351073:20 Request TSH (23022)Indication: Hypothyroidism On: 17-Hvt-430162:56 Request HgA1C , Office (15553)Indication: Controlled diabetes mellitus type II without complication On: 61-Rnc-50761:56 Request PSA (PROSTATE SPECIFIC ANTIGEN) (V76.44)Indication: Screening for prostate cancer On: 81-Smv-56934:20 Request TSH (61418)Indication: Uncontrolled type II diabetes mellitus On: :19 Request URINALYSIS, W/ MICRO (24475)Indication: Uncontrolled type II diabetes mellitus On: :19 Request MICROALBUMIN: CREATININE RATIO (79844) AND (61393)Indication: Uncontrolled type II diabetes mellitus On: :19 Request METABOLIC PANEL, COMPREHENSIVE (99625)Indication: Uncontrolled type II diabetes mellitus On: :19 Request LIPOPROTEIN, BLD, BY NMR (81051)Indication: Uncontrolled type II diabetes mellitus On: :19 Request LIPID PANEL (83949)Indication: Uncontrolled type II diabetes mellitus On: :19 Request CBC WITH MANUAL DIFF (73160)Indication: Uncontrolled type II diabetes mellitus On: :19 Request LIPOPROTEIN, BLD, BY NMR (03035)Indication: Hypercholesterolemia On: :57 Request LIPID PANEL (58863)Indication: Hypercholesterolemia On: :57 Request Comments: do in 3 months LIPID PANEL (78229)Indication: Controlled diabetes mellitus type II without complication On: :22 Request T3, FREE (TRIDOTHYRONINE) (27135)Indication: Abnormal TSH On: :40 Request T4, FREE (THYROXINE) (33536)Indication: Abnormal TSH On: :40 Request TSH (11535)Indication: Abnormal TSH On: :40 Request Comments: do in 2-3 mo TSH (50137)Indication: Controlled diabetes mellitus type II without complication On: 77-Ora-371733:29 Request METABOLIC PANEL, COMPREHENSIVE (81338)Indication: Controlled diabetes mellitus type II without complication On: 57-Rlc-747561:29 Request MICROALBUMIN: CREATININE RATIO (85076) AND (47534)Indication: Controlled diabetes mellitus type II without complication On: :29 Request CBC WITH MANUAL DIFF (25601)Indication: Controlled diabetes mellitus type II without complication On: 89-Stx-793734:29 Request LIPID PANEL (40032)Indication: Controlled diabetes mellitus type II without complication On: 51-Uce-274418:29 Request PSA (PROSTATE SPECIFIC ANTIGEN) (V76.44)Indication: Uncontrolled type II diabetes mellitus On: :18 Request LIPID PANEL (79206)Indication: Hypercholesterolemia On: 92-Ubo-902427:02 Request HEPATIC FUNCTION PANEL (78189)Indication: Hypercholesterolemia On: 33-Hkh-638290:02 Request TSH (49384) On: :45 Request METABOLIC PANEL, COMPREHENSIVE (68294) On: :44 Request LIPID PANEL (40966) On: :44 Request CBC WITH MANUAL DIFF (39802) On: :44 Request PSA (PROSTATE SPECIFIC ANTIGEN) (34829) On: 7-Ekz-218827:17 Request Comments: screening TSH (04372) On: Request URINALYSIS W/O MICRO (89100) On: Request MICROALBUMIN URINE QUANT (05050) On: Request LIPID PANEL (23026) On: Request METABOLIC PANEL, COMPREHENSIVE (13853) On: Request CBC WITH MANUAL DIFF (87116) On: Request MICROALBUMIN: CREATININE RATIO (55543) On: Request AND (20525) METABOLIC PANEL, COMPREHENSIVE (47080) On: Request LIPID PANEL (48603) On: Request CBC WITH MANUAL DIFF (66440) On: Request Planned Procedures PNEUM VAC ADLT/IMUMNOSPR, SBC/INTRM On: 07-Feb-2018 Intent (61785)By: Denisa Macias DO Comments: 0.5 cc given sq lt arm lot [id number] exp 04/21/19 Denisa Macias DO X-RAY OF RIGHT HAND, ONE OR TWO On: 07-Feb-2018 Intent VIEWS (91800)By: Denisa Macias DO Comments: attention to hypothenar area for FB Denisa Macias DO TD VACCINE ADULT (48990)By: Venkata On: 23-Dec-2017 Intent Anne Comments: a105a3/62522.5mlr dltd, IMMLONG Flu Vaccine (Quadrivalent) 68114Qb: On: 28-Nov-2017 Intent Visit, Nurse Comments: Lot #[id number]/30/Site-L dltd, IMDose prefilled syringegiven by: Genna VARGAS.VIS reviewed and ABN signed X-RAY RIGHT KNEE, 3 VIEWS (94059)By: On: 31-Jul-2017 Intent Denisa Macias DO, DO, Kathleen Radiology - Knee - Right - Weight On: 31-Jul-2017 Intent BearingBy: Denisa Macias DO, DO, Kathleen ELECTROCARDIOGRAM, COMPLETE (ECG) On: 31-Jul-2017 Intent (13971)By: Denisa Macias DO Comments: nsr no acute chg Denisa Macias DO CT - Brain/Head (IV Contrast On: 31-Dec-2016 Intent Needed)By: Denisa Macias DO, DO, Kathleen Echo CompleteBy: Denisa Macias DO On: 31-Dec-2016 Intent Denisa Macias DO GBKV-[id number]-CKVW BEHAVIORAL COUNSELING On: 31-Dec-2016 Intent FOR OBESITY, 15 MINUTES (G0447)By: Denisa Macias DO, DO, Kathleen Flu Vaccine (Quadrivalent) 77111Iv: On: 17-Dec-2016 Intent Denisa Macias DO, DO, Comments: Lot:[id number]:09/09/17Amt:0.5mlRoute:IMSite: L DltdGiven By: YURY Valdez signed Denisa MAGNETIC RESONANCE ANGIOGRAPHY OF On: 24-Sep-2016 Intent CAROTID AND VERTEBRAL VESSELS (15863)By: Denisa Macias DO, DO, Kathleen ELECTROCARDIOGRAM, COMPLETE (ECG) On: 24-Sep-2016 Intent (19037)By: Denisa Macias DO Comments: sinus gabby no acute chg- on BB Denisa Macias DO Renal Duplex ScanBy: Colleen GARCIA, On: 24-Sep-2016 Intent Denisa Valladares DO ELECTROCARDIOGRAM, COMPLETE (ECG) On: 10-Sep-2016 Intent (93635)By: Denisa Macias DO Comments: sinus gabby no acute chg Denisa Macias DO CT HEAD OR BRAIN WO CONTRAST On: 21-May-2016 Intent (31771)By: Denisa Macias DO, DO, Kathleen Flu Vaccine (Quadrivalent) 93489Jg: On: 23-Dec-2015 Intent Emeka Levin Comments: FLUlot: [id number]:08/08site:Lt deltoidroute:IMdose:.5mlDEMICK, MA Echo CompleteBy: Denisa Macias DO On: 24-Oct-2015 Intent [address]isa [address] DO CT SCAN OF CHEST WITH CONTRAST On: 24-Oct-2015 Intent (30907)By: Denisa Macias DO, DO, Kathleen CT - Chest (IV Contrast Needed)By: On: 20-Jun-2015 Intent Denisa Macias DO, DO, Kathleen Echo CompleteBy: Denisa Macias DO On: 21-Feb-2015 Intent Denisa Macias DO Flu Vaccine (Quadrivalent) 74534Cj: On: 05-Jan-2015 Intent Denisa Macias DO, DO, Comments: lot [id number]: 09/22/2015site/route L rafa, IMamt 0.5mlVIS and ABN signed when applicableChelsea, CMA4 Denisa ELECTROCARDIOGRAM, COMPLETE (ECG) On: 16-Nov-2014 Intent (54416)By: Denisa Macias DO Comments: nsr no acute changes - Denisa Macias DO Prevnar 13 (62531)By: Colleen GARCIA, On: 10-May-2014 Intent Denisa Valladares DO Comments: Lot:[id number]:08/07Dose:0.5mgRoute:imSite:l armGiven By:MIGUEL ÁNGEL signed Inhaler Demonstration ([id number])By: On: 23-Mar-2014 Intent Hayley Stone CNP ADMINISTRATION OF INFLUENZA VIRUS On: 25-Dec-2013 Intent VACCINE ([id number])By: Visit, Nurse Comments: Lot #[id number]-L dltd, IMDose prefilled syringegiven by:YURY Seymour and ABN signed FLU VAC, SPLIT, >3 YEARS, INTRAMUSC On: 25-Dec-2013 Intent ([id number])By: Visit, Nurse EKG ([id number])By: Denisa Macias DO On: 08-Oct-2013 Intent Denisa [...] PNEUM VAC ADLT/IMUMNOSPR, SBC/INTRM On: 19-Dec-2012 Intent ([id number])By: Marge Smith Comments: Lot:[id number]:10/25/13Dose:0.5mgRoute:imSite:r armGiven By:MIGUEL ÁNGEL signed ADMINISTRATION OF PNEUMOCOCCAL On: 19-Dec-2012 Intent VACCINE ([id number])By: Marge Smith FLU VAC, SPLIT, >3 YEARS, INTRAMUSC On: 17-Dec-2012 Intent ([id number])By: Anne Edge LPN Comments: Lot:[id number]:6.14Amt:0.5mlRoute:IMSite: L DltdGiven By: YURY Valdez signed Eprescribed [...] On: 04-Aug-2012 Intent Denisa Colleen DODenisa EKG ([id number])By: ColleenDenisa pratt DO On: 28-Jul-2012 Intent Denisa Macias DO Comments: nsr no acute changes Echo CompleteBy: Colleen DOInesDenisa On: 21-Mar-2012 Intent Colleen DODenisa Echo CompleteBy: Colleen DO Denisa On: 19-Mar-2012 Intent Denisa Macias DO Eprescribed prescriptions ([id number])By: On: 13-Mar-2012 Intent Anne Edge LPN Eprescribed prescriptions ([id number])By: On: 31-Dec-2011 Intent Denisa Macias DO, DO, Kathleen Nuclear Medicine - HIDA w/CPKBy: On: 19-Dec-2011 Intent Ciesa ADMITTING INTERVIEWER, Supriya EKG ([id number])By: Denisa Macias DO On: 13-Dec-2011 Intent Denisa Macias DO Comments: nsr no acute chg Ultrasound - GallbladderBy: Colleen On: 29-Nov-2011 Intent Denisa GARCIA DO, Kathleen Eprescribed prescriptions ([id number])By: On: 29-Nov-2011 Intent Anne Edge LPN FLU VAC, SPLIT, >3 YEARS, INTRAMUSC On: 27-Nov-2011 Intent ([id number])By: Marissa Palomino LPN Comments: Lot #[id number]/30/13Site-left deltoidgiven by: Todd Palomino LPN ADMINISTRATION OF INFLUENZA VIRUS On: 27-Nov-2011 Intent VACCINE ([id number])By: Marissa Palomino LPN MRI - Lumbar Spine (IV Contrast On: 26-Jan-2011 Intent Needed)By: Denisa Macias DO, DO, Kathleen EKG ([id number])By: Denisa Macias DO On: 05-Jan-2011 Intent Denisa Macias DO Comments: nsr no acute chg Cartoid DopplerBy: Colleen GARCIA, On: 05-Jan-2011 Intent Denisa Valladares DO EKG ([id number])By: Denisa Macias DO On: 06-Dec-2010 Intent Denisa Macias DO Comments: nsr no acute chgn- Bio Z ([id number])By: Denisa Macias DO On: 06-Dec-2010 Intent Denisa Macias DO Comments: stabel parameters- no chg in rx IMMUNIZ ADMNIN, 1 VAC, SNGL/COMBO On: 06-Dec-2010 Intent ([id number])By: Denisa Macias DO, DO, Kathleen FLU VAC, SPLIT, >3 YEARS, INTRAMUSC On: 06-Dec-2010 Intent ([id number])By: Denisa Macias DO, DO, Kathleen TDAP VACCINE >7 IM ([id number])By: Colleen On: 30-Aug-2010 Denisa Izquierdo DO, DO, Kathleen Comments: Lot #[id number]-5/25/13Site-left deltoidgiven by: Todd Palomino LPN ADMINISTRATION OF INFLUENZA VIRUS On: 27-Dec-2009 Intent VACCINE ([id number])By: Edilia Vasquez LPN FLU VAC, SPLIT, >3 YEARS, INTRAMUSC On: 27-Dec-2009 Intent ([id number])By: Edilia Vasquez LPN Comments: Lot #[id number] 4PExp-07/03Site-L armDose0.5mlgiven by: EKG ([id number])By: Denisa Macias DO On: 15-Nov-2009 Intent Denisa Macias DO Comments: nsr no acute changes MRI - Shoulder(s) - LeftBy: Colleen On: 11-May-2009 Intent Denisa GARCIA DO, Kathleen Bio Z ([id number])By: Denisa Macias DO On: 25-Oct-2008 Intent Denisa Macias DO Comments: NORMAL SVR AND CO EKG ([id number])By: Denisa Macias DO On: 25-Oct-2008 Intent Denisa Macias DO Comments: NSR NO ACUTE CHANGES Bio Z ([id number])By: Denisa Macias DO On: 04-Jun-2008 Intent Denisa Macias DO Comments: normal IMMUNIZ ADMNIN, 1 VAC, SNGL/COMBO On: 05-Jan-2008 Intent ([id number])By: Denisa Macias DO, DO, Kathleen FLU VAC, SPLIT, >3 YEARS, INTRAMUSC On: 05-Jan-2008 Intent ([id number])By: Denisa Macias DO, DO, Kathleen Bio Z ([id number])By: Denisa Macias DO On: 07-Nov-2007 Intent Denisa Macias DO Comments: normal svr and co Nuclear Stress Test/Stress On: 15-Sep-2007 Intent SPECT/TreadmillBy: Colleen GARCIA, Comments: [facility] Denisa Valladares DO Echo CompleteBy: Denisa Macias DO On: 07-Aug-2007 Intent Denisa Macias DO Cartoid DopplerBy: Colleen DO, On: 07-Aug-2007 Intent Denisa Valladares DO EKG ([id number])By: Denisa Macias DO On: 07-Aug-2007 Intent Denisa Macias DO Comments: nsr no acute ischemic changes EKG ([id number])By: Denisa Macias DO On: 29-Nov-2006 Intent Denisa [...] social history. Yes the patient did have ([facility] [place] /30wisper 05/25) a mini mental status End: [...] providers contributing to the patient's care are stone driller helper (dr zayas) and other: ([facility], vision test up to date).Encounter Diagnosis: [...] has completed the [facility] preventative measures: PSA testing (2011) and colonoscopy (2011). The patient does have durable power of trade mark attorney and living will. The patient has noticed nothing from the geriatic depression scale . Other providers contributing to the patient's care are stone driller helper (Dr. Antonio) and surgeon (Dr. Negro -- [...] providers contributing to the patient's care are mixing roll operator and other: (tooling specialist, ENT). Encounter Diagnosis: Type II Diabetes,controlled (250.00), [...]
--- OUTSIDE RECORDS SUMMARY | 2018-06-16 22:14 | XMS RPT_ITS ---
:1945 Author Organization OHIP Care Team Providers Name Role Phone Ines Macias DOhleen Attending Unavailable Colleen DO, Denisa Referring Unavailable Colleen DO, Denisa Consulting Unavailable Colleen, Denisa Attending Unavailable Colleen, Denisa Referring Unavailable Colleen, Denisa Primary Care Unavailable Colleen, Denisa Attending Unavailable Colleen, Denisa Referring Unavailable Colleen, Denisa Primary Care Unavailable JaJulio C mccoyent Attending Unavailable Colleen, Denisa Primary Care Unavailable Jabour, Vincent Referring Unavailable Colleen, Denisa Attending Unavailable Colleen, Denisa Referring Unavailable Colleen, Denisa Primary Care Unavailable Jhonathan Stafford Attending Unavailable Colleen, Denisa Referring Unavailable PROBLEMS PROBLEMS No Problem Records FoundPROCEDURES PROCEDURES No Procedure Records FoundRESULTS RESULTS HEPATOBILLIARY IMG Observed: 04/14/2018 Status: F Source: CLAUS W/PHARM INT 11:[address] [facility] REPOSITORY [facility] Imaging Services [address] [place] [address] Hepatobilliary Img w/Pharm Int MR#: [id number] Acct: [id number] Name: TOMMY KLEIN Rep #: [id number] : 1945 M 72 From: Aamir Richmond DO PCP: Denisa Macias DO Status: REG CLI Study: Hepatobilliary Img w/Pharm Int Date of Exam: 04/14/18 Exam# [id number] Ordering Dr: Denisa Macias DO CLINICAL: 72-year-old male with reported history of right upper quadrant abdominal pain. RADIONUCLIDE HEPATOBILIARY SCINTIGRAPHY COMPARISON: Previous CCK hepatobiliary scintigraphy study dated 12/24/2011, abdominal ultrasound report 04/01/2018 FINDINGS: Following the intravenous administration of 5.4 mCi of 99m Tc Mebrofenin, hepatobiliary images reveal: 1. Relatively prompt and homogeneous radiopharmaceutical concentration is noted by a normal sized liver. No parenchymal defects are identified. 2. Gallbladder activity is identified at 10 minutes post radiopharmaceutical administration. 3. Small intestinal tract is observed at 15 minutes following tracer injection. 4. Washout of the radiopharmaceutical by the hepatic parenchyma appears qualitatively normal. Cholecystokinin (0.02 ug/kg) was administered intravenously over a 30-minute period. The post CCK gallbladder ejection fraction calculated at 20 minutes following Cholecystokinin administration was noted to be 93.0 % (normal greater than 35%). During 30 minutes of post CCK imaging, there is no scintigraphic evidence of reflux of the radiotracer into the common hepatic duct or refilling of the gallbladder. 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 NM/Hepatobilliary Img w/Pharm Int IMPRESSION: 1. A gallbladder ejection fraction calculated to be greater than 35% following the administration of Cholecystokinin makes the probability of functional hepatobiliary disease (gallbladder and/or sphincter of Oddi dyskinesia) and/or organic hepatobiliary disease (chronic acalculous cholecystitis and/or cystic duct syndrome) to be low. (Sandy Juan et al, Journal of Nuclear Medicine 32:1695, 1990). 2. There is scintigraphic evidence of transient post CCK duodenal-gastric reflux. (Elza et al, Nucl Med Angelika Corinne Press pg. 35, 1980). 3 . Overall compared to the previous CCK hepatobiliary scintigraphy study dated 12/24/2011, there is no significant interval change. Electronically Signed: Aamir Richmond DO at 23:46 EST Tel , Service support , CC: Denisa Macias DO Learning Support Services Director: Signed ABDOMEN LIMITED Observed: 04/01/2018 Status: F Source: MANASQUAN 1:[address] [facility] REPOSITORY [facility] Imaging Services [address] [place] [address] [place] [address] Abdomen Limited MR#: [id number] Acct: [id number] Name: TOMMY KLEIN Rep #: [id number] : 1945 M 72 From: Jakob Hunt MD PCP: Denisa Macias DO Status: REG CLI Study: Abdomen Limited Date of Exam: 04/01/18 Exam# [id number] Ordering Dr: Denisa Macias DO STUDY: ABDOMINAL ULTRASOUND - RIGHT UPPER QUADRANT REASON FOR VISIT: Male, 72 years old. One-month history of epigastric pain and nausea. TECHNIQUE: Ultrasound evaluation of the right upper quadrant was performed with real-time and static lares-scale imaging. TECHNICAL QUALITY: Adequate. COMPARISON: None. FINDINGS: Liver: The liver measures 16.9 cm. There is normal echogenicity of the liver. The bile ducts are within normal limits. There is hepatic color flow. The direction of portal flow is hepatopetal. There is no demonstrated mass lesion. Gallbladder: Normal distended gallbladder. The gallbladder wall measures 2.4 mm. There is a negative sonographic Arcos's sign. There is no pericholecystic fluid. There are no gallstones. Common Bile Duct (C.B.D.): The common bile duct measures 4.5 mm. Pancreas: Normal size of the head, body and tail of the pancreas. There is increased echogenicity of the pancreas. There is no demonstrated pancreatic mass or cyst. Right Kidney: Normal size of the right kidney. The right kidney measures 12.7 cm x 4.9 cm x 6.6 cm. Normal renal cortex. The right cortex measures 2.0 cm. There is a 1.2 cm x 1 cm x 0.9 cm cyst arising from the lateral aspect of the right kidney. There is no right hydronephrosis. US/Abdomen Limited IMPRESSION: Normal right upper quadrant ultrasound examination. Small right renal cyst. Electronically Signed: Jakob Hunt MD at 14:49 EST Tel [phone], Service support , CC: Denisa Macias DO Learning Support Services Director: Signed SURGERY VISIT REPORT Observed: 02/28/2018 Status: F Source: MANASQUAN 8:[address] [facility] REPOSITORY [facility] [address] [place] [address]. [address] [place] [address] OFFICE VISIT Date of Service: 02/27/18 MR#: [id number] Acct: [id number] Name: TOMMY KLEIN Rep #: [id number] : 1945 Provider: Jhonathan Stafford MD Age/Sex: 72/M Location: [facility] Status: Signed Intake Vital Signs02/27/18 Height 6 ft 02/27/18 Weight: 216 lb 4 oz 02/27/18 Body Mass Index (BMI) 29.3 02/27/18 Blood Pressure 135/79 H Intake Visit Reasons: FB R Hand Chief Complaint: FB right hand Wood Pattern[employer] Required: No Is patient in pain?: No Allergies shellfish derived Allergy (Mild, Verified 02/27/18 14:47) hives Medications amlodipine 2.5 mg tablet 2.5 mg PO DAILY 02/27/18 [History Confirmed 02/27/18] atorvastatin 40 mg tablet 40 mg PO DAILY 02/27/18 [History Confirmed 02/27/18] cholecalciferol (vitamin D3) 5,000 unit capsule 5,000 unit PO DAILY 02/27/18 [History Confirmed 02/27/18] clonidine HCl 0.1 mg tablet 0.1 mg PO TID 02/27/18 [History Confirmed 02/27/18] clopidogrel 75 mg tablet 75 mg PO DAILY 02/27/18 [History Confirmed 02/27/18] folic acid 1 mg tablet 1 mg PO DAILY 02/27/18 [History Confirmed 02/27/18] glimepiride 4 mg tablet 4 mg PO BID tab 02/27/18 [History Confirmed 02/27/18] levothyroxine 50 mcg tablet 50 mcg PO DAILY 02/27/18 [History Confirmed 02/27/18] metformin 1,000 mg tablet 1,000 mg PO BID 02/27/18 [History Confirmed 02/27/18] metoprolol succinate ER 50 mg capsule sprinkle, ext. release 24 hr 50 mg PO DAILY 02/27/18 [History Confirmed 02/27/18] multivitamin,jp-hwvw-vwvmyokl tablet 1 tab PO DAILY 02/27/18 [History Confirmed 02/27/18] ramipril 5 mg capsule 5 mg PO DAILY 02/27/18 [History Confirmed 02/27/18] sitagliptin 100 mg tablet 100 mg PO DAILY 02/27/18 [History Confirmed 02/27/18] [facility] Medical History Diabetes mellitus (Acute) Hypothyroidism (Acute) TIA (transient ischemic attack) (Acute) HTN (hypertension) (Chronic) Surgical History History of colonoscopy (Acute) History of tonsillectomy (Acute) History of vasectomy (Acute) Family History Father Heart disease Cancer brain Myocardial infarction CVA (cerebral vascular accident) Social History Smoking Status: Never smoker HPI HPI HPI: TOMMY KLEIN, is a 72 M who presents to the office today for evaluation of a questionable foreign body to his right hand. 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 He removed the nail obtained a tetanus shot and since then he has noticed that there is still a slight bump in the area and an x-ray was obtained showing a possible foreign body near the site of entry marked on the film on the lateral area adjacent to the mid first metacarpal. Patient states that he really has no symptomatology at all occasionally he will feel like something is uncomfortable when [...] colon cancer, breast cancer or weakness HEENT HEENT: No difficulty swallowing, eye injury, eye surgery, swollen glands or hoarseness Endo Endocrine: Yes thyroid disease and diabetes mellitus; no thyroid cancer, Hair loss, heat intolerance or cold intolerance Cardio Cardiovascular: Yes high blood pressure; no murmur, pacemaker, heart disease, atrial fibrillation, heart attack, heart stent, palpitations, shortness of breat with exertion or chest pain Psych Psychiatric: No depression, anxiety or hearing voices Resp Respiratory: No shortness of breath, No sleep apnea, No cough, No COPD, No asthma, No emphysema, No wheezing Gastro Gastrointestinal: No abdominal pain, No nausea or vomiting, No diarrhea, No constipation, No blood in stool, No acid reflux, No hemorrhoids, No ulcers, No gallbladder problem, No black,tarry stools Caleb Hematologic: Yes blood thinners, No blood disorders, No bleeding, No anemia, No blood clots Neuro Neurologic: No system reviewed and no additional complaints, except as docu, No as per HPI, No abnormal walking, No abnormal hearing, No abnormal movements, No abnormal speech, No behavioral changes, No burning sensations, No confusion, No seizure-like activity, No unsteadiness, No dizziness, No localized weakness, No frequent falls, No headache(s), No lack of coordination, No loss of vision, No memory loss, No numbness, No other visual disturbances, No radiating pain, No restless legs, No sensory deficit, No fainting, No tingling, No tremor(s), No weakness, Yes other (TIA) Exam Cardio Heart Sounds: no murmurs Extrem Other: On the palmar surface of his right he had is an obvious site where the entry of the nail happened. And it feels like the skin there is still healing and is slightly firm there is no induration he has no pain to deep palpation he has no signs of cellulitis he has normal function of his hand with extension and flexion and cutaneous sensation at the [...] deep within the tissue itself physical exam makes you think that there is something superficial in the hand skin. I do not think there is any benefit to doing any surgeries on him at this time. Coding Level of Care Code Off vis,new,level 2 Diagnoses Foreign body of right hand, initial encounter S60.551A Encounter type: initial encounter Laterality: right 02/28/18 0826 <Electronically signed by Jhonathan Stafford MD> Date Jhonathan Stafford MD Cosigner Signature: Date (if applicable) CC: Denisa Macias DO HAND 2 VIEWS Observed: 02/07/2018 Status: F Source: MANASQUAN 3:[address] [facility] REPOSITORY [facility] Imaging Services [address] [place] [address] Hand 2 Views MR#: [id number] Acct: [id number] Name: TOMMY KLEIN Rep #: [id number] : 1945 M 72 From: Morales Perla MD PCP: Denisa Macias DO Status: REG CLI Study: Hand 2 Views Date of Exam: 02/07/18 Exam# [id number] Ordering Dr: Denisa Macias DO STUDY: X-RAY - RIGHT HAND REASON FOR EXAM: Male, 72 years old. Pain, possible foreign body TECHNIQUE: 2 view(s) of the hand. COMPARISON: None. FINDINGS: Normal radiocarpal articulation. Normal distal radioulnar joint. Normal visualized carpal bones. Normal carpal articulations Normal carpometacarpal articulation of the thumb. Normal second through fifth carpometacarpal joints. Normal metacarpi. There is degenerative arthrosis of the metacarpophalangeal (MCP) joints. Normal interphalangeal joint of the thumb. Normal proximal and distal phalanges of the thumb. Normal metacarpophalangeal joints of the second through fifth fingers. Normal proximal and distal interphalangeal joints of the second through fifth fingers. Normal phalanges of the second through fifth fingers. There is mild soft tissue swelling and a possible foreign body projecting adjacent to the first metacarpal seen only on the lateral view. RAD/Hand 2 Views IMPRESSION: Possible foreign body near the site of entrance marked on the film on the lateral film seen adjacent to the mid first metacarpal Mild arthrosis No demonstrated fracture Electronically Signed: Endy Perla MD at 9:21 EST , Service support , CC: Denisa Macias DO Learning Support Services Director: Signed COLON BIOPSY (CHOOSE Observed: 09/20/2017 Status: F Source: [facility]) 12:[address] [facility] REPOSITORY Patient: TOMMY KLEIN : 1945 (72/M) Acct Num: [id number] Phys: Julio C Normanlian Unit Num: [id number] Loc: LABSPEC Specimen: [id number] Received: 09/20/17 1533 Spec Type: COLON BX TISSUES TISSUES: Rectum, NOS GROSS DESCRIPTION Received in fixative is one container labeled with the patient's name and designated rectal polyp. The specimen predominantly consists of fecal material mixed with possible soares soft tissue, measuring in aggregate 2.5 x 0.6 x 0.1 cm. The specimen is totally submitted in one cassette. SJ:scott 09/23/17 TC: cannot code CPT: 12084 HEADER OPERATION: Colonoscopy with polypectomy PRE-OP DIAGNOSIS: Rectal bleeding TISSUE SUBMITTED: Rectal polyp MICROSCOPIC DESCRIPTION Slides are reviewed. MICROSCOPIC DIAGNOSIS Rectal polyp, polypectomy: Fragments of fecal material. Colonic mucosal tissue is not identified. SJ:scott 09/24/18 Signed Magdy Purvis 09/24/17 <signature on file> Performed By: #### PCOLBX #### [facility] [address] [place], [address] ALLERGIES ALLERGIES DATE TYPE / CODE NAME / CODE REACTION SEVERITY SOURCE 02/27/2018 Drug shellfish Hives [facility] Allergy/416 derived/[id number] Hospital 257974(SNOM 54(RXNORM) Repository ED CT) ENCOUNTERS ENCOUNTERS ADMIT/DISCHARGE ACCOUNT ADMITTING ENCOUNTER LOCATION SOURCE NUMBER CLASS 04/14/2018 [id number] [facility] 4 [facility] ing:[place] Repository 04/01/2018 [id number] [facility] 0 [facility] ing:[place] Repository 04/01/2018 504 Ambulatory Building:[facility] Practices Repository 02/27/2018/ [id number] Ambulatory BMSBuilding:Suzi Devlin 8 8 [facility] Repository 02/07/[id number] ing:HPRAD Repository 09/20/[id number] ing:LABSPEC Repository PAYERS PAYERS ENCOUNTER GUARANTOR PAYER SUBSCRIBER SOURCE 04/14/2018 TOMMY Sofia Primary TOMMYTREMAYNE [place] [id number] Insurance:MEDICARE STONEDOB: [facility] PART A [facility] [id number] Number: Repository [id number]: [phone] [id number] [phone] () Date:2018-04-04 04/14/2018 Secondary TOMMY Palaciososter Insurance:[facility] STONEDOB: [facility] [id number] Hospital Number: Repository [id number] Date:1798-71-20PS [address] [address]AW: 04/14/2018 Tertiary NOT GIVENUNK [place] Insurance:SELF PAY [facility] Number: Effective Repository Date:2018-04-04 04/01/2018 TOMMY F Primary TOMMY F Claus [id number] Insurance:MEDICARE STONEDOB: [facility] [place]ANQUITA PART A [facility] [id number] Hospital [place] Number: Repository [id number]: 330 [id number] [phone] (HP) Date:2018-04-01 04/01/2018 Secondary TOMMY F [place] Insurance:[facility] STONEDOB: [facility] [id number] Hospital Number: Repository [id number] Date:2674-07-54OD [address], [place] [address]RQ: 04/01/2018 Tertiary NOT GIVENUNK [place] Insurance:SELF PAY [facility] Number: Effective Repository Date:2018-04-01 04/01/2018 Tommy F Primary Tommy F OHIP Practices StoneDOB: Insurance:MedicarePol StoneDOB: Repository icy Number: [id number] [address] [id number] 91 [facility], [place] Date:1166-84-17Mwqd [place], [place] [address]Bso: ([phone]) Name:[facility] [address]Bhz: [id number], [place] [address] () (HP)Tel: [phone] 04/01/2018 Secondary Tommy F OHIP Practices Insurance:[employer] Life StoneDOB: Repository [facility]/MedicarePolicy [id number] Number: [address] [id number] RdBurbanner [facility], [place] Date:5126-97-37Lmld [address]Aej: ([phone]) Name: [phone] (HP) [id number] Frey [id number]: 04/01/2018 Tertiary Tommy Sofia OHIP Practices Insurance: StoneDOB: Repository [facility] Number: [id number] [address] Date: - [place], [place] 6691-78-15Band [address]Diy: ([phone]) Name:[facility] [phone] () [address], [place] [id number]: 02/27/2018 TOMMY F Primary TOMMY F Claus [id number] Insurance:MEDICARE STONEDOB: Community BLANQUITA PART A [facility] [id number], [place] Number: Repository [id number]: 330 [id number] [phone] () Date:2018-02-25 02/27/2018 Secondary TOMMY F [place] Insurance:WPS STONEDOB: [facility] [id number] Hospital Number: Repository [id number] Date:6438-12-07NI [address], [place] [address]WO: 02/27/2018 Tertiary NOT GIVENUNK [place] Insurance:SELF PAY [facility] Number: Effective Repository Date:2018-02-25 02/07/2018 TOMMY F Primary TOMMY F [place] [id number] Insurance:MEDICARE STONEDOB: Community [place] PART A [facility] [id number] Number: Repository [id number]: 330 [id number] [phone] () Date:2018-02-07 02/07/2018 Secondary TOMMY F [place] Insurance:WPS STONEDOB: [facility] [id number] Hospital Number: Repository [id number] Date:8032-39-95HS [address] [address]AX: 02/07/2018 Tertiary NOT GIVENUNK [place] Insurance:SELF PAY [facility] Number: Effective Repository Date:2018-02-07 09/20/2017 Tommy Sofia Primary Tommy Palaciososter [id number] Insurance:MEDICARE StoneDOB: Community [place] PART A BPolicy [id number] Number: Repository [address]Tbq: [phone] [id number] [phone] (HP) Date:2017-09-20 09/20/2017 Secondary Tommy Sofia [place] Insurance:[facility] StoneDOB: [facility] [id number] Hospital Number: Repository [id number] Date:5624-54-83VU [address], [place] [address]WB: 09/20/2017 [facility] [place] Insurance:SELF PAY [facility] Number: Effective Repository Date:2017-09-20
== END ==
PROVIDERS: Family Provider Internal Medicine; PCP Internal Medicine; Referring Provider Internal Medicine; Visit Provider Internal Medicine
DX: R10.11 Right upper quadrant pain (principal)
CPT/HCPCS: 78227; A9537; J2805

== ENCOUNTER 2018-04-23 12:25 | Outpatient (RCR) | payer MEDICARE, OTHER, SELFPAY ==
[2018-02-27 14:47] VITALS: BMI 29.3
== END 2018-04-24 23:59 ==
LOC: DC 12:25
PROVIDERS: Family Provider Internal Medicine; PCP Internal Medicine; Visit Provider Internal Medicine
DX: E11.65 Type 2 diabetes mellitus with hyperglycemia (principal); Z71.3 Dietary counseling and surveillance
CPT/HCPCS: G0108

== ENCOUNTER 2018-04-30 11:47 | Outpatient (RCR) | payer MEDICARE, OTHER, SELFPAY ==
[2018-02-27 14:47] VITALS: BMI 29.3
== END 2018-05-22 23:59 ==
LOC: DC 11:47
PROVIDERS: Family Provider Internal Medicine; PCP Internal Medicine; Visit Provider Internal Medicine
DX: E11.65 Type 2 diabetes mellitus with hyperglycemia (principal); Z71.3 Dietary counseling and surveillance
CPT/HCPCS: 97802

== ENCOUNTER 2018-05-26 11:30 | Outpatient (RCR) | payer MEDICARE, OTHER, SELFPAY ==
[2018-02-27 14:47] VITALS: BMI 29.3
== END 2018-06-22 23:59 ==
LOC: DC 11:30
PROVIDERS: Family Provider Internal Medicine; PCP Internal Medicine; Visit Provider Internal Medicine
DX: E11.65 Type 2 diabetes mellitus with hyperglycemia (principal); Z71.3 Dietary counseling and surveillance
CPT/HCPCS: 97803

== ENCOUNTER 2018-10-02 13:24 | Outpatient (RCR) | payer MEDICARE, OTHER, SELFPAY ==
[2018-02-27 14:47] VITALS: BMI 29.3
== END 2018-10-22 23:59 ==
LOC: DC 13:24
PROVIDERS: Family Provider Internal Medicine; PCP Internal Medicine; Visit Provider Internal Medicine
DX: Z71.3 Dietary counseling and surveillance (principal); E11.65 Type 2 diabetes mellitus with hyperglycemia
CPT/HCPCS: G0109

== ENCOUNTER 2018-11-27 08:08 | Outpatient (RCR) | payer MEDICARE, OTHER, SELFPAY ==
[2018-02-27 14:47] VITALS: BMI 29.3
== END 2018-12-22 23:59 ==
LOC: DC 08:08
PROVIDERS: Family Provider Internal Medicine; PCP Internal Medicine; Visit Provider Internal Medicine
DX: E11.65 Type 2 diabetes mellitus with hyperglycemia (principal); Z71.3 Dietary counseling and surveillance
CPT/HCPCS: G0109

== ENCOUNTER → 2019-04-29 11:35 | Outpatient (CLI) | payer MEDICARE, OTHER, SELFPAY ==
[2018-02-27 14:47] VITALS: BMI 29.3
--- NOTE | 2019-04-29 11:39 | RAD_ITS ---
STUDY: X-RAY - RIGHT KNEE REASON FOR EXAM: Knee pain, no specific injury. TECHNIQUE: 2 view(s) of the knee. COMPARISON: Radiographs 09/29/2015. FINDINGS: Normal visualized distal femur. Normal visualized proximal tibia and fibula. Normal proximal tibiofibular articulation. There is mild joint space narrowing of the medial femorotibial compartment similar to the prior study. Normal lateral femorotibial compartment. There is moderate joint space narrowing of the patellofemoral articulation similar to the prior study. There is minimal vascular calcification. RAD/Knee 1 or 2 Views IMPRESSION: Arthrosis of the medial femorotibial and patellofemoral compartments. Electronically Signed: Sean Rosado MD at 13:09 EST Tel , Service support ,
== END ==
PROVIDERS: PCP Internal Medicine; Referring Provider Internal Medicine; Visit Provider Internal Medicine
DX: M25.561 Pain in right knee (principal)
CPT/HCPCS: 73560

== ENCOUNTER 2019-04-30 07:39 | Outpatient (RCR) | payer MEDICARE, OTHER, SELFPAY ==
[2018-02-27 14:47] VITALS: BMI 29.3
== END 2019-04-30 23:59 | disposition home or self-care (01) ==
LOC: DC 07:39
PROVIDERS: Family Provider Internal Medicine; PCP Internal Medicine; Visit Provider Internal Medicine
DX: Z71.3 Dietary counseling and surveillance (principal); E11.65 Type 2 diabetes mellitus with hyperglycemia
CPT/HCPCS: G0109

== ENCOUNTER 2020-09-19 11:30 | Outpatient (RCR) | payer MEDICARE, OTHER, SELFPAY ==
[2018-02-27 14:47] VITALS: BMI 29.3
--- NOTE | 2020-08-30 15:54 | HP.PTEVAL_ITS ---
Patient's Visit Information TOMMY KLEIN is a 74 year old M referred to Physical Therapy by Dr. Denisa Macias DO with a diagnosis of L SI pain. Date of Evaluation: 08/30/20 Physical Therapist: Jakob Jacob DPT, OCS, CSCS - Visit Plan Frequency: 2-3x /Week Duration: 2-4 Weeks Plan: 2-3x/week for 2-4 weeks for. 1. rollout and stretch L pirifrois and posterior hip, teach foam roller to gluts for HEP, teach stretches HS and hip flexors(already given piriformis). 2. strength hip stabs L and gluts and progress to HEP. 3. DTR to upper gluts and pirifromis area on L. MH as needed. - Subjective SI pain L side for a couple months. Insidious onset, may be arthritic. 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 Posterior hip hurts to 6/10 when it triggers. otherwise is amild toothache. it gets triggered by walking or running alot. C omfortable at rest sitting and relaxing. 2 mile hike will flare up on him and will hurt much of day. No leg symptoms. No numbness or tingling. Sleeping is no problem. 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 Works as necessary and mostly on computer or visit a business. On skirt panel assembler and no problem all winter. Basic ADLs are OK. Uncomfortable if flare up but can still do things. Flexibility is still good. doctor thought injection might help. - Pain L SI area Pain Intensity (Out of 10): 1 Pain Intensity Range: 1, 6 - Objective Walks I adn without antalgia today. Trasnfers I and jogs up and down steps without increased pain. L SI area tender to touch and into gluts moderately and not on R. HS and quads and hip flexors and pirformis mod tight. Hip aROM and PROM WFL and symmetrical. SI testing negative today with compression, slight pain L with gapping. LB AROM WFL and without pain. Upper gluts and piriformis on L mod tender vs R. Strenfgth hip abd and ext 3+ B, flexion 4-, knee flex/ext 4+, ankles 4+. - hip scour. - Faddir. - slump. - slr. - Goals Goal 1:: Walk without increased pain 3 miles at home Goal Time Frame: 4-6 Weeks Goal 2:: Pt feel 75% better overall adn I approp managemnt of condition Goal Time Frame: 4-6 Weeks Goal 3:: LEFS 65/80 Goal Time Frame: 4-6 Weeks - Rehabilitation Potential Physical Therapy Diagnosis: L SI pain, pirifromis area with muscle tenderness. Rehabilitation Potential: Fair - Anticipated Interventions Patient/Client Instruction: Educate patient on: Condition, Plan of Care For the Purpose of:: To decrease pain, To improve nutrient delivery to tissue, To improve muscle performance and motor function Therapeutic Exercise to Include: Strength training, Flexibilty training, Gait and locomotor training, Passive ROM, Active ROM For the Purpose of:: To decrease pain, To increase ROM, To improve muscle performance and motor function, To increase tolerance to activity/condition/position, To improve ability of physical actions for home/community/work/leisure, To improve gait and locomotor functions Manual Therapy Techniques to Include: Mobilization, Soft tissue mobilization For the Purpose of:: To increase ROM, To improve nutrient delivery to tissue, To increase oxygenation perfusion, To improve muscle performance and motor function Thermo therapy (hot pack): Yes For the Purpose of:: To improve nutrient delivery to tissue Thank you for the opportunity to evaluate your patient. For Medicare and Medicare HMO plans, please review the plan of care and approve it. It will need to be FAXED BACK to us at [phone] for Medicare purposes. For Medicare only, by signing this I certify the plan of care. Please let me know if there are questions or concerns regarding this plan of care. Physician Signature: Date:
--- NOTE | 2020-09-19 11:58 | HP.PTDCSUM ---
It has been my pleasure to treat TOMMY KLEIN referred by Dr. Denisa Macias DO, with the diagnosis of L SI pain for a total of 5 visit(s). Discharge Date: Please see the following information for a summary of their discharge status. Subjective: Plans to hike in [place] next year and wants to be in the best shape he can be when he goes. He barely senses that he had a pain there. Its much better- he has no pain. He is a 0/10 most of the time. L SI area Pain Intensity (Out of 10): 0 % Improvement: 90 Objective/Function: Posture: good throughout. Gait: no deviation noted. Stairs: asc/desc 8 stairs recip good control. ROM: WFL in all planes of LE and lumbar spine. Strength: Core: fair plus, Hip: 4+/5 throughout, Knee: 5/5. Ankle: 5/5. Flex: HS: moderate, Gastroc: moderate, Piriformis: moderate Goal 1:: Walk without increased pain 3 miles at home Goal Progress: Goal Met Goal 2:: Pt feel 75% better overall adn I approp managemnt of condition Goal Progress: Goal Met Goal 3:: LEFS 65/80 Goal Progress: Goal Met Plan: 09/19/2020: Discharge to home exercise program. Increase strength/stability and continue manual. If there are questions or concerns regarding this patient's physical therapy, please feel free to call me at [phone]. Thank you for the referral of this patient. Sincerely, HUMA WhittingtonT
== END 2020-09-19 19:00 | disposition home or self-care (01) ==
LOC: PT 11:30
PROVIDERS: PCP Internal Medicine; Referring Provider Internal Medicine; Visit Provider Internal Medicine
DX: M53.3 Sacrococcygeal disorders, not elsewhere classified (principal)
CPT/HCPCS: 97110; 97140; 97162; 97164

== ENCOUNTER 2021-05-22 16:00 | Outpatient (RCR) | payer MEDICARE, OTHER, SELFPAY ==
--- NOTE | 2021-05-11 11:54 | HP.OTEVAL ---
Patient's Visit Information TOMMY KLEIN is a 75 year old M, referred to Occupational Therapy by EMILEE Madera, with a diagnosis of right MF trigger finger. 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 pt would like to know what he can do to prevent the triggering and return to use of his right hand. pt states when his finger triggers pain is 7/10. - Pain right MF 1 Pain Intensity Range: 7 - ROM ROM Comments: pt demo with right MF positive trigger finger - limits pts full composite fist -. all other ROM is WNL - Strength [employer]: right 60# left 115# Lateral Pinch: right 14# left 18# Tripod Pinch: right 14# left 16# - Sensation Sensation Comments: denies - Quick DASH-Disab of Arm,Shoulder& Hand Quick DASH Score: 30.0000 - Goals Goal:: pt will demo a increase in right chemical strength tester strength to 85# or greater to return pt to PLOF with ADLs and IADLs by d.c Goal:: pt will demo full right composite fist with no triggering of right MF for pt to return to using right grasp for all size of objects by d/c. Goal:: pt will report the ability to form a composite fist and use right hand for ADLs with pain no greater than 1/10 by d.c Goal:: pt will demo understanding of using trigger finger orthosis by end of 1st session to prevent triggering to allow for flexor tendon to heal. - Rehabilitation General Assessment: pt demo with positive trigger of right MF this limits use of right hand with ADL and IADls as when finger triggers pain is 7/10. Pt would benefit from skilled OT services 2-3x week for 3 weeks to decrease flexor tendon inflammation and resolve right MF triggering to return pt to using right hand with ADL and IADLs at IND. level. Today therapist ed. pt on dx, tx and latesha. trigger finger orthosis- pt demo understanding and agree to POC. Rehabilitation Potential: Good - Anticipated Interventions A/AAROM/PROM, Strengthening, Triggerpoint Release, Modalities, Orthoses, Joint Protection/Energy Conservation, Ergonomic Education, Fine Motor Coord/Aldo, Education re assistive Equipment, Education re Diagnosis - Visit Plan Frequency: 2-3x /Week Duration: 3 Weeks TEXT: Thank you for the opportunity to evaluate your patient. For Medicare and Medicare HMO plans, please review the plan of care and approve it. It will need to be FAXED BACK to us at [phone] for Medicare purposes. Please let me know if there are questions or concerns regarding this plan of care. Physician Signature: Date:
== END 2021-05-22 19:00 | disposition home or self-care (01) ==
LOC: OT 16:00
PROVIDERS: PCP Internal Medicine; Referring Provider Physician Assistant Surgical; Visit Provider Physician Assistant Surgical
DX: M65.321 Trigger finger, right index finger (principal)
CPT/HCPCS: 97035; 97166; 97530

== ENCOUNTER 2021-06-05 12:35 | Outpatient (CLI) | payer MEDICARE, OTHER, SELFPAY | END 2021-06-05 23:59 | disposition home or self-care (01) | LOC: PSN 12:39 | PROVIDERS: PCP Internal Medicine; Referring Provider Internal Medicine; Visit Provider Internal Medicine | DX: Z51.81 Encounter for therapeutic drug level monitoring (principal) | CPT/HCPCS: 93225; 93226 ==

== ENCOUNTER → 2022-01-08 | Outpatient (CLI) | payer MEDICARE, OTHER, SELFPAY ==
--- NOTE | 2022-01-08 13:20 | CDU_ITS ---
Reason For Study: OCCLUSION AND SENOSIS Rt. Velocities/BP Lt. Velocities/BP Prox CCA 84.4/12.6 cm/sec. Prox CCA 97.6/13.5 cm/sec. Mid CCA 53.5/11.0 cm/sec. Mid CCA 77.1/15.7 cm/sec. Dist CCA 44.0/11.0 cm/sec. Dist CCA 53.5/15.7 cm/sec. Prox ICA 80.9/19.5 cm/sec. Prox ICA 48.1/15.0 cm/sec. Mid ICA 64.8/19.5 cm/sec. Mid ICA 80.1/21.9 cm/sec. Dist ICA 63.9/23.2 cm/sec. Dist ICA 77.9/32.9 cm/sec. Rt. ICA/CCA = 80.9/53.5=1.5. Lt. ICA/CCA = 80.1/77.1=1.0. Prox ECA 67.6/7.2 cm/sec. Prox ECA 86.4/9.5 cm/sec. Rt. Vert. 33.6/11.4 cm/sec. Lt. Vert. 50.4/17.5 cm/sec. Right Extracranial There is intimal thickening but no significant atherosclerotic plaque noted in the right common carotid artery. There is heterogeneous, irregular atherosclerotic plaque noted in the right internal carotid artery. There is intimal thickening but no significant atherosclerotic plaque noted in the right external carotid artery. Antegrade flow is noted in the right vertebral artery. Left Extracranial There is intimal thickening but no significant atherosclerotic plaque noted in the left common carotid artery. There is heterogeneous, irregular atherosclerotic plaque noted in the left internal carotid artery. There is intimal thickening but no significant atherosclerotic plaque noted in the left external carotid artery. Antegrade flow is noted in the left vertebral artery. Procedure Carotid Duplex 32392. This is a Carotid Duplex examination using B-mode, color flow and specral Doppler. Exam performed in department. VL/Carotid Duplex Ultrasound Interpretation Summary Mild (<50%) stenosis right extracranial internal carotid. Mild (<50%) stenosis left extracranial internal carotid. Patent and antegrade vertebrals bilaterally. Ordering Physician: Denisa Macias Referring Physician: Denisa Macias Performed By: Guillermina Dempsey, MIKE, RVT
== END | disposition home or self-care (01) ==
LOC: CVS 13:01
PROVIDERS: PCP Internal Medicine; Referring Provider Internal Medicine; Visit Provider Internal Medicine
DX: I65.23 Occlusion and stenosis of bilateral carotid arteries (principal)
CPT/HCPCS: 93880

== ENCOUNTER → 2022-01-17 | Outpatient (CLI) | payer MEDICARE, OTHER, SELFPAY ==
--- NOTE | 2022-01-17 14:45 | RAD_ITS ---
EXAM: XR CHEST, 2 VIEWS CLINICAL INDICATION: SHORTNESS OF BREATH TECHNIQUE: Frontal and lateral views of the chest. This report was created using [employer] report generation technology. COMPARISON: None. FINDINGS: LUNGS AND PLEURAL SPACES: Unremarkable with the exception of suspicion of mild bronchopulmonary cuffing in the medial right lung in the lower lung fierro, possible bronchitis. No consolidation or edema. No pneumothorax. No effusion. HEART: Unremarkable. Cardiac silhouette not enlarged. MEDIASTINUM: Central airways and mediastinal contour are unremarkable. BONES/JOINTS: Unremarkable. SOFT TISSUES: Unremarkable. RAD/Chest PA and Lateral IMPRESSION: Suspicion of mild airway thickening in the medial right lower lung field, possible bronchitis. Otherwise unremarkable exam. Electronically Signed: Taniya Coyle MD at 4:57 EDT ,
[2022-01-17 16:03] LABS: D-Dimer Quantitative (DVT/PE) 0.41 FEU/ug/m (0.27-0.49)
== END | disposition home or self-care (01) ==
LOC: MTLAB 14:44
PROVIDERS: PCP Internal Medicine; Referring Provider Internal Medicine; Visit Provider Internal Medicine
DX: R06.02 Shortness of breath (principal)
CPT/HCPCS: 36415; 71046; 85379

== ENCOUNTER 2022-06-13 07:00 | Outpatient (RCR) | payer MEDICARE, OTHER, SELFPAY ==
--- NOTE | 2022-05-21 15:50 | HP.PTEVAL ---
Patient's Visit Information TOMMY KLEIN is a 76 year old M referred to Physical Therapy by Dr. Denisa Macias DO with a diagnosis of T/S pain. Date of Evaluation: 05/21/22 Physical Therapist: Aftab Mendez, PT, ATC - Visit Plan Frequency: 2-3x /Week Duration: 4-6 Weeks Plan: Assess benefit of C/S traction. Postureal education, DTR, scap stab ex's, UBE, and HEP - Subjective Pt reports he has had pain on the L medial scapular border for 2 weeks now. Pt reports he thinks this may have occurred when he was lifting weights here at [employer]. Pt reports he was performing bicep curls when he kept experiencing a clicking noise in that region. Pt reports the pain will radiate into his neck region, and on occasion he will experience pain in the L UE that will extend to his finger tips. Pt has not had any recent x-rays. Pt reports he has increased pain if he tries to sleep on the L side. Pt also notes increased pain when he attempts to lift heavy objects. Pt reports he also experiences the pain if he bends his neck to the L and R. Pt describes his pain as a toothache. Pt reports his pain is 3/10 while sitting at rest, and elevates to 7/10 at worst - Pain L medial scapula Pain Intensity (Out of 10): 3 Pain Intensity Range: 7 - Objective Neuro: B UE sensation is WNL to light touch. B bicipital reflex= 2/3. MMT: L shoulder ER 4/5. All other B UE MMT 5/5 throughout. ROM: Pt is severely limited with B SB, extension, and retraction. Rotation is moderately limited. Repeated movements: RPIS 10x3 worse, RRIS 10x3 worse. Special tests: Pos apley compression and distraction tests - Balance/Special Test Scores Oswestry Neck Score: 13 - Goals Goal 1:: Decrease L T/S pain x 50% to aid with sleep Goal Time Frame: 4-6 Weeks Goal 2:: Decrease the frequency and intensity of L UE radiculpathy x 50% to aid with IADL's Goal Time Frame: 4-6 Weeks Goal 3:: Pt will demonstrate proper posture to aid with preventing future episodes of T/S pain Goal Time Frame: 4-6 Weeks Goal 4:: I with HEP Goal Time Frame: 4-6 Weeks - Rehabilitation Potential Physical Therapy Diagnosis: Pt has T/'S pain, L UE radiculopathy, and limited c/s ROM secondary to deg changes in the c/s Rehabilitation Potential: Good - Anticipated Interventions Patient/Client Instruction: Educate patient on: Condition, Plan of Care For the Purpose of:: To improve self management Therapeutic Exercise to Include: Strength training, Scapular Strength/Stabilization For the Purpose of:: To decrease pain, To improve muscle performance and motor function Manual Therapy Techniques to Include: Soft tissue mobilization For the Purpose of:: To decrease pain, To increase ROM Thermo therapy (hot pack): Yes Intermittent cervical traction: Yes For the Purpose of:: To decrease pain Thank you for the opportunity to evaluate your patient. For Medicare and Medicare HMO plans, please review the plan of care and approve it. It will need to be FAXED BACK to us at [phone] for Medicare purposes. For Medicare only, by signing this I certify the plan of care. Please let me know if there are questions or concerns regarding this plan of care. Physician Signature: Date:
--- NOTE | 2022-06-13 08:03 | HP.PTDCSUM ---
It has been my pleasure to treat TOMMY KLEIN referred by Dr. Denisa Macias DO, with the diagnosis of T/S pain for a total of 7 visit(s). Discharge Date: Please see the following information for a summary of their discharge status. Subjective: I am significantly better today. My sharp pain is gone. L medial scapula Pain Intensity (Out of 10): 1 % Improvement: 90 Objective/Function: Neck and L shoulder pain is now 1-2/10. Pt no longer gets L UE radiculopathy and has no sleep difficulty at this time. Pt is I with HEP. Rx goals achieved Goal 1:: Decrease L T/S pain x 50% to aid with sleep Goal Progress: Goal Met Goal 2:: Decrease the frequency and intensity of L UE radiculpathy x 50% to aid with IADL's Goal Progress: Goal Met Goal 3:: Pt will demonstrate proper posture to aid with preventing future episodes of T/S pain Goal Progress: Goal Met Goal 4:: I with HEP Goal Progress: Goal Met Plan: Discharge to HEP If there are questions or concerns regarding this patient's physical therapy, please feel free to call me at [phone]. Thank you for the referral of this patient. Sincerely, Aftab Mendez, PT, ATC Balance/Gait/Functional tests - Balance/Special Test Scores Oswestry Neck Score: 5
== END 2022-06-13 08:08 | disposition home or self-care (01) ==
LOC: PT 07:00
PROVIDERS: PCP Internal Medicine; Referring Provider Internal Medicine; Visit Provider Internal Medicine
DX: M54.6 Pain in thoracic spine (principal); R29.3 Abnormal posture; M62.81 Muscle weakness (generalized); M62.838 Other muscle spasm
CPT/HCPCS: 97012; 97110; 97161; 97164

== ENCOUNTER → 2022-08-01 | Outpatient (CLI) | payer MEDICARE, OTHER, SELFPAY | END | disposition home or self-care (01) | LOC: LABSPEC 11:52 | PROVIDERS: PCP Internal Medicine; Referring Provider Internal Medicine Medical Oncology; Visit Provider Internal Medicine Medical Oncology | DX: D64.9 Anemia, unspecified (principal) | CPT/HCPCS: 82274 ==

== ENCOUNTER → 2022-10-19 | Outpatient (CLI) | payer MEDICARE, OTHER, SELFPAY ==
--- NOTE | 2022-10-19 06:45 | ECHOD_ITS ---
Reason For Study: CHEST PAIN Procedure This was a 2D Doppler, Color Flow transthoracic echocardiogram. Exam performed in department. Left Ventricle Normal LV size. Left ventricular systolic function is normal. The estimated ejection fraction is 60 %. No regional wall motion abnormalities noted. Right Ventricle Normal RV size. Normal systolic function. Atria Normal left atrium. Normal right atrium. Mitral Valve Normal mitral valve. Mild (1+) eccentric mitral valve insufficiency. Tricuspid Valve Normal tricuspid valve. Aortic Valve Trisinus/trileaflet aortic valve. Moderate focal aortic valve thickening. Peak aortic valve gradient 23 mmHg. Mean aortic valve gradient 13 mmHg. Mild aortic stenosis. Mild (1+) aortic valve insufficiency. Pulmonic Valve Normal pulmonic valve. Great Vessels Normal aortic root. The pulmonary artery is normal size. Normal inferior vena cava. Pericardium/Pleural No pericardial effusion. MMode/2D Measurements & Calculations LVIDd: 4.9 cm IVSd: 1.1 cm LVOT diam: 2.0 cm LVIDs: 3.3 cm LVPWd: 1.2 cm LVOT area: 3.0 cm2 RVDd: 3.6 cm FS: 33.8 % Ao root diam: 4.1 cm LAV(MOD-bp): 80.1 ml LVAd ap4: 37.9 cm2 LAV(MOD-bp) Indexed: 39.2 ml/m2 LVLd ap4: 8.9 cm LAV(MOD-sp2): 74.6 ml EDV(MOD-sp4): 132.6 ml LAV(MOD-sp4): 75.6 ml EDV(sp4-el): 137.6 ml LVAs ap4: 20.5 cm2 LVLs ap4: 6.5 cm ESV(MOD-sp4): 55.6 ml ESV(sp4-el): 54.8 ml EF(MOD-sp4): 58.1 % EF(sp4-el): 60.2 % SV(MOD-sp4): 77.0 ml SV(sp4-el): 82.8 ml LA A4 area: 24.6 cm2 LA dimension(2D): 3.8 cm RA A4 area: 16.7 cm2 TAPSE: 2.5 cm Time Measurements MV dec time: 0.18 sec Doppler Measurements & Calculations MV E max manav: 110.2 cm/sec Lat Peak E' Manav: 7.3 cm/sec Med Peak E' Manav: 6.0 cm/sec MV A max manav: 59.8 cm/sec E/E' lat: 15.0 E/E' med: 18.5 MV E/A: 1.8 MV V2 max: 112.3 cm/sec Ao V2 max: 240.3 cm/sec MV max P.0 mmHg MV dec slope: 680.7 cm/sec2 Ao max P.1 mmHg MV V2 mean: 63.7 cm/sec Ao V2 mean: 170.2 cm/sec MV mean P.9 mmHg Ao mean P.2 mmHg MV V2 VTI: 38.6 cm Ao V2 VTI: 64.1 cm AV (velocity ratio): 0.41 MVA(VTI): 2.1 cm2 JOEL(I,D): 1.3 cm2 JOEL(V,D): 1.2 cm2 AI max manav: 399.4 cm/sec LV V1 max: 95.5 cm/sec MR max manav: 550.9 cm/sec AI max P.8 mmHg LV V1 max P.6 mmHg MR max P.4 mmHg LV V1 mean P.1 mmHg MR mean manav: 474.4 cm/sec AI dec slope: 194.2 cm/sec2 LV V1 mean: 68.5 cm/sec MR mean P.5 mmHg AI P1/2t: 602.5 msec LV V1 VTI: 26.5 cm MR VTI: 257.0 cm SV(LVOT): 80.6 ml PA V2 max: 92.3 cm/sec PA V2 mean: 62.5 cm/sec ECHO/Echo Complete Interpretation Summary Normal LV size. Left ventricular systolic function is normal. The estimated ejection fraction is 60 %. Mean aortic valve gradient 13 mmHg. Mild aortic stenosis. Mild (1+) aortic valve insufficiency. Ordering Physician: Denisa Macias Referring Physician: Denisa Macias Performed By: Widder, Lillian, RCS
--- NOTE | 2022-10-19 16:41 | STRESSREP_ITS ---
Stress Test Report Exercise myocardial perfusion stress test. 77-year-old man with a history of chest pain Stress protocol: Resting EKG demonstrates normal sinus rhythm with a rate of 56 bpm resting blood pressure is 160/80 mmHg. The patient exercised according to the regular Gurmeet protocol for a total duration of 9 minutes attaining a maximum heart rate of 141 bpm which was 100% of maximum predicted heart rate; the maximum workload was 10.1 metabolic equivalents. At rest there were no ST or T wave changes noted to suggest ischemia and at peak exercise upsloping ST changes only were noted which did not meet the criteria for ischemia. No clinical angina was noted the test was terminated due to the target heart rate being achieved/fatigue. The peak blood pressure was 160/80 mmHg. Rate-pressure product was 20,800. Myocardial perfusion protocol. 11.9 mCi of technetium 99m sestamibi was injected at rest. The patient exercised according to regular Gurmeet protocol for total duration of 9 minutes and at peak exercise 31 mCi mCi of technetium 99m sestamibi was injected stress images were obtained stress and rest images were reconstructed in comparing the short axis vertical long and horizontal long axis. Gated images were also obtained. Perfusion SPECT analysis: Review of the stress images demonstrate normal uptake of tracer noted in all ar eas of the myocardium. The resting images similarly demonstrate normal uptake of tracer noted in all areas of the myocardium. No areas of reversibility are noted to suggest ischemia no previous infarct was noted. Gated SPECT analysis: The gated ejection fraction is 64%. Conclusion: Normal exercise myocardial perfusion stress test at a high workload Preserved ejection fraction.
== END | disposition home or self-care (01) ==
PROVIDERS: PCP Internal Medicine; Referring Provider Internal Medicine; Visit Provider Internal Medicine
DX: R68.89 Other general symptoms and signs (principal); E11.65 Type 2 diabetes mellitus with hyperglycemia; R07.89 Other chest pain
CPT/HCPCS: 78452; 93017; 93306; A9500; A4216

== ENCOUNTER → 2023-08-23 | Outpatient (CLI) | payer MEDICARE, OTHER, SELFPAY ==
--- NOTE | 2023-08-23 13:14 | CT_ITS ---
STUDY: CT CHEST T ABDOMEN WITH CONTRAST REASON FOR EXAM: Male, 77 years old. ANEMIA/SCAPULA PAIN RADIATION DOSAGE (If Supplied By Facility): CTDIvol = ( 16.02 ) mGy, DLP = ( 1114.51 ) mGycm TECHNIQUE: Transaxial imaging was performed following intravenous administration of IV 100mL Isovue-370. Individualized dose optimization techniques were used for this CT. COMPARISON: Comparison is made with prior CT scan of the chest dated November 14, 2015. FINDINGS: CHEST The lungs are normal. There is no demonstrated pleural abnormality. There are calcifications of the coronary arteries. Normal mediastinum. Normal hilar regions. Normal unenhanced pulmonary arteries. The root of the ascending thoracic aorta has a transverse dimension of 40.5 mm. This is upper limits of normal. There are multi-level degenerative changes of the thoracic spine. There is no demonstrated abnormality of the visualized upper abdomen. ABDOMEN Normal liver. Normal gallbladder and extrahepatic biliary system. Normal spleen. Normal pancreas. Normal bilateral adrenal glands. Normal right kidney. There is a 1.3 cm cyst in the upper anterior aspect of the left kidney. Normal visualized stomach. Normal small intestine. Normal colon. There is non-visualization of the appendix. There is scattered atherosclerotic calcification of the abdominal aorta, without a demonstrated aneurysm. Normal inferior vena cava. Normal retroperitoneum. Normal abdominal wall. There are degenerative changes of the visualized lumbar spine. Several lucencies are seen in the first and second portion of the sacrum as well as the superior aspect of the L5 vertebra and inferior aspect of the L3 vertebrae. Correlation with the bone scan is recommended. CT/CT Chest AND Abd W/ Contrast IMPRESSION: Scattered lucencies are seen in the lumbar vertebrae as well as the sacrum as described. Correlation with bone scan recommended. Small cyst in the anterior upper pole of the left kidney. Electronically Signed: Jakob Hunt MD at 14:27 EDT ,
== END | disposition home or self-care (01) ==
LOC: CT 13:12
PROVIDERS: PCP Internal Medicine; Referring Provider Internal Medicine Medical Oncology; Visit Provider Internal Medicine Medical Oncology
DX: D50.9 Iron deficiency anemia, unspecified (principal); R07.9 Chest pain, unspecified
CPT/HCPCS: 71260; 74160; Q9967

== ENCOUNTER → 2023-09-06 | Outpatient (CLI) | payer MEDICARE, OTHER, SELFPAY ==
--- NOTE | 2023-09-06 07:51 | NM_ITS ---
CLINICAL: 77-year-old male with history of back discomfort, osteoarthritis. WHOLE BODY 99m Tc MDP RADIONUCLIDE BONE SCINTIGRAPHY COMPARISON: None available FINDINGS: Following the intravenous administration of 27.0 mCi of 99m Tc MDP, whole body bone images reveal: 1. Increased radiotracer concentration is defined in the patellofemoral compartment of the right knee, medial tibial compartments of both knees, the bilateral hips, the wrist articulations bilaterally, the acromioclavicular compartment of the shoulders bilaterally, the sternoclavicular compartment of the left shoulder, the mid cervical spine posteriorly on the left, the second and third lumbar vertebra posteriorly on the left. 2. The remaining skeletal structures are scintigraphically unremarkable with normal-appearing renal images and urinary bladder activity identified. Calcification of the bilateral costochondral junctions is defined. NM/Bone Scan Whole Body IMPRESSION: 1. The increase in radiopharmaceutical concentration visualized in the remaining articulations, bilateral wrists, both shoulders, the cervical and lumbar spine is commensurate with degenerative arthritis. 2. No other scintigraphic abnormalities are demonstrated. Electronically Signed: Aamir Richmond DO at 9:08 EDT ,
== END | disposition home or self-care (01) ==
LOC: NM 07:51
PROVIDERS: PCP Internal Medicine; Referring Provider Internal Medicine Medical Oncology; Visit Provider Internal Medicine Medical Oncology
DX: M47.814 Spondylosis without myelopathy or radiculopathy, thoracic region (principal); M89.9 Disorder of bone, unspecified
CPT/HCPCS: 78306; A9503

== ENCOUNTER → 2023-09-10 | Outpatient (CLI) | payer MEDICARE, OTHER, SELFPAY ==
--- NOTE | 2023-09-10 10:04 | ART_ITS ---
Reason For Study: PVD Procedure A bilateral lower extremity continuous wave Doppler with analog waveform analysis and ankle brachial indexes. Left Segmental Pressures Left brachial= 171mmHg. Left posterior tibial artery = >254mmHg. Left dorsalis pedis artery = 220mmHg. Left digit = 193 mmHg. The left posterior tibial artery waveforms are triphasic. The left dorsalis pedis waveforms are triphasic. Right Segmental Pressures Right brachial= 177mmHg. Right posterior tibial artery = >254mmHg. Right dorsalis pedis artery = >254mmHg. Right digit = 176 mmHg. The right posterior tibial artery waveforms are triphasic. The right dorsalis pedis waveforms are triphasic. Indices The right resting ankle brachial index is -NC-. The right digital-brachial index is 0.99. The left resting ankle brachial index is 1.24. The left digital-brachial index is 1.09. VL/Ankle Brachial Index Interpretation Summary Right TAMRA not able to be obtained due to non compressible vessels. TBI and Dopp ler/PVR waveforms of the right ankle normal at rest. Left TAMRA 1.24, normal. TBI and Doppler/PVR waveforms of the left ankle normal a t rest. Ordering Physician: Estrella Hong Referring Physician: ESTRELLA HONG MD Performed By: Guillermina Dempsey RVT, RDCS
== END | disposition home or self-care (01) ==
LOC: CVS 10:04
PROVIDERS: PCP Internal Medicine; Referring Provider Internal Medicine; Visit Provider Internal Medicine
DX: I73.9 Peripheral vascular disease, unspecified (principal)
CPT/HCPCS: 93922

== ENCOUNTER 2023-10-21 18:23 | Observation (INO) | payer MEDICARE, OTHER, SELFPAY ==
[2023-10-21] VITALS (8 sets, daily range): BP systolic 137–178; BP diastolic 65–78; PULSE 45–55; RESP 12–16; TEMP 36.8–36.9; O2SAT 96–100; BMI 25.9; BMI 25.0
--- NOTE | 2023-10-21 18:34 | EKG12_ITS ---
Test Reason : Blood Pressure : / mmHG Vent. Rate : 056 BPM Atrial Rate : 056 BPM P-R Int : 184 ms QRS Dur : 096 ms QT Int : 424 ms P-R-T Axes : 026 036 046 degrees QTc Int : 409 ms Sinus bradycardia Otherwise normal ECG Confirmed by GAEL YANG, CLAUDY ([id number]), story editor MELANIE BAZAN ([id number]) on 10/25/2023 9:59:12 AM Referred By: Confirmed By:BRITTNEY MAYO MD
--- NOTE | 2023-10-21 18:40 | RAD_ITS ---
EXAM: XR CHEST, 1 VIEW CLINICAL INDICATION: chest pain TECHNIQUE: Frontal view of the chest. COMPARISON: 01/17/2022 FINDINGS: LUNGS AND PLEURAL SPACES: Unremarkable. No consolidation or edema. No pneumothorax. No effusion. HEART: Unremarkable. Cardiac silhouette not enlarged. MEDIASTINUM: Central airways and mediastinal contour are unremarkable. BONES/JOINTS: Unremarkable. No acute fracture. SOFT TISSUES: Unremarkable. RAD/Chest 1 View (Portable) IMPRESSION: No radiographic evidence of acute cardiopulmonary disease. Electronically Signed: Brian Gaston MD at 19:20 EDT ,
[2023-10-21] MEDS: Aspirin 81 MG TAB.CHEW 324 MG PO (18:51)
--- NOTE | 2023-10-21 18:57 | EDS_ITS ---
HPI History of Present Illness Chief Complaint: Chest Pain Narrative Narrative: 78-year-old male presenting with chest pain today. He states he was in his driveway pulling up the trash cans and started to get chest pain and shortness of breath. He states it lasted for about 30 to 40 minutes. He had to sit and rest and catch his breath. Chest pain is gone away now. Patient states this is unlike him as he is very active and exercises. Denies cough, fever does have history of hypertension, hyperlipidemia, diabetes, hypothyroidism. [facility] Medical History Normal esophagogastroduodenoscopy (EGD) Onychomycosis Anemia Adult hypothyroidism Uncontrolled diabetes mellitus with hyperglycemia Controlled diabetes mellitus type II without complication B12 deficiency Vitamin D deficiency Hypercholesteremia Insomnia Essential (primary) hypertension Heart murmur, aortic Occlusion and stenosis of unspecified carotid artery PVD (peripheral vascular disease) SARS (severe acute respiratory syndrome) GERD (gastroesophageal reflux disease) Unspecified contact dermatitis, unspecified cause Actinic keratosis Rosacea Skin abnormality Osteoarthritis, knee Displacement of lumbar intervertebral disc Sacroiliac joint pain Low back pain potentially associated with radiculopathy Left-sided thoracic back pain Muscle spasm Trigger finger of right hand Impingement syndrome of shoulder region Dribbling following urination BPH associated with nocturia Benign prostatic hyperplasia with urinary obstruction and other lower urinary tract symptoms Impotence Sinus bradycardia Heart murmur, systolic Heart murmur Head congestion PND (post-nasal drip) Paresthesia Decreased peripheral vibratory sense Subcutaneous nodules Nocturia Memory loss Fatigue Hyperglycemia Muscle strain Chronic anticoagulation Transient cerebral ischemia Diabetes mellitus Hypothyroidism HTN (hypertension) TIA (transient ischemic attack) Home Medications ?Medication ?Instructions ?Recorded ?Last Taken ?Type atorvastatin 40 mg tablet 40 mg PO DAILY 02/27/18 Unknown History cholecalciferol (vitamin D3) 125 5,000 unit PO DAILY 02/27/18 Unknown History mcg (5,000 unit) capsule clopidogrel 75 mg tablet (Plavix) 75 mg PO DAILY 02/27/18 Unknown History folic acid 1 mg tablet 1 mg PO DAILY 02/27/18 Unknown History levothyroxine 50 mcg tablet 50 mcg PO DAILY 02/27/18 Unknown History (Synthroid) ramipril 5 mg capsule 5 mg PO DAILY 02/27/18 Unknown History tadalafil 5 mg tablet (Cialis) 5 mg PO DAILY 06/21/22 Unknown History tamsulosin 0.4 mg capsule (Flomax) 0.4 mg PO DAILY 06/21/22 Unknown History metformin 1,000 mg tablet 1,000 mg PO DAILY 04/08/23 Unknown History (Glucophage) sitagliptin phos 100 mg-metformin 1 tab PO QHS 04/08/23 Unknown History ER 1,000 mg tablet,extend rel 24h mp (Janumet XR) clonidine HCl 0.1 mg tablet 0.1 mg PO Q8H PRN hypertensive 10/21/23 Unknown History emergency metoprolol succinate 50 mg 50 mg PO DAILY 10/21/23 Unknown History tablet,extended release 24 hr [id number] 1 tab PO DAILY 10/21/23 Unknown History tablet (A Thru Z High Potency tablet) polysaccharide iron complex 150 mg 150 mg PO DAILY 10/21/23 Unknown History iron capsule (Ferrex) tizanidine 4 mg tablet 4 mg PO BID PRN PRN muscle spasm 10/21/23 Unknown History Allergy/AdvReac Type Severity Reaction Status Date / Time shellfish derived Allergy Mild hives Verified 10/21/23 18:23 Fish Containing Products Allergy NEEDS Verified 10/21/23 18:23 (seafood) FOLLOW-UP Family History Father Heart disease Cancer brain Myocardial infarction CVA (cerebral vascular accident) Surgical History History of colonoscopy History of vasectomy History of tonsillectomy Social History Smoking Status: Never smoker alcohol intake: current alcohol intake frequency: holidays/special occasions only substance use type: does not use ROS ROS ED Constitutional Constitutional ED: Denies chills, fever(s) or sweats Eyes Eyes: Denies blurry vision or change in vision ENT ENT ED: Denies ear pain or sore throat Cardiovascular Cardiovascular: Reports chest pain; Denies palpitations or racing heartbeat Respiratory/Chest Respiratory/Chest: Reports dyspnea and dyspnea on exertion; Denies cough or sputum Gastrointestinal Gastrointestinal: Denies abdominal pain, constipation, diarrhea, nausea or vomiting Genitourinary Genitourinary ED: Denies dysuria, hematuria or urinary frequency Musculoskeletal Musculoskeletal: Denies arthralgias, myalgias or neck pain Integumentary Denies abscess, Abrasions or rash Neurologic Neurologic: Denies headache(s), paresthesias or weakness Psychiatric Psychiatric: Denies anxiety, depression, suicidal ideation or suicidal thoughts Endocrine Endocrinology: Denies polydipsia or polyuria EXAM Physical Exam Const Vital Signs: 10/21/23 18:24 10/21/23 18:34 10/21/23 19:17 Temperature 98.5 F Temperature Source Temporal Pulse Rate 45 L 55 L Respiratory Rate 16 14 Blood Pressure 137/67 H Blood Pressure Mean 90 Pulse Ox 98 96 96 Oxygen Delivery Method Room Air Room Air 10/21/23 19:23 10/21/23 19:30 10/21/23 19:45 Temperature Temperature Source Pulse Rate 52 L 52 L 53 L Respiratory Rate 15 12 16 Blood Pressure 162/67 H 162/67 H 148/65 H Blood Pressure Mean 98 95 89 Pulse Ox 98 96 96 Oxygen Delivery Method Room Air 10/21/23 20:00 10/21/23 20:24 Temperature 98.3 F Temperature Source Pulse Rate 53 L 51 L Respiratory Rate 12 12 Blood Pressure 164/72 H 178/78 H Blood Pressure Mean 96 111 Pulse Ox 100 97 Oxygen Delivery Method Room Air Positive well nourished General Appearance ED: NAD; Negative for pallor HEENT Reports moist mucous membranes normocephalic and atraumatic Eyes PERRL and EOMs intact bilaterally Chest Wall inspection of chest normal Resp normal respiratory effort and clear to auscultation bilaterally Auscultation: Negative for rales, rhonchi or wheezes Cardio regular rate Rate: bradycardia GI normal to inspection, nondistended, normoactive bowel sounds Extremity normal to inspection Neuro oriented x3 and CN's II-XII intact bilaterally Sensorium / Orientation: awake and alert Motor Exam: strength 5/5 throughout Psych mental status grossly normal Skin no rashes or lesions noted General Skin Exam: Negative for jaundice or pallor Heart Score History: Moderately Suspicious ECG: Normal Age: >/= 65 years Risk Factors: >/= 3 Risk Factors or History of CAD Score: 5 MDM MDM MDM Narrative Medical decision making narrative: Patient presented with chest pain. Differential includes but is not limited to ACS, CHF pneumonia, pneumothorax, muscle strain, costochondritis, dehydration, anemia, electrolyte abnormalities. Considered PE but patient is PERC negative. CBC will be obtained to assess white blood cell count, hemoglobin, platelets. BMP to assess renal function, electrolytes, glucose. High-sensitivity troponin and EKG to assess for ischemia/dysrhythmia. BNP to assess for CHF. Chest x-ray to rule out pneumonia or CHF. CBC shows normal white blood cell count 6.1. Hemoglobin 11.9. Platelets are normal. Renal function and electrolytes within normal limits. High-sensitivity troponin is 9. BNP 78.4 patient's heart score is 5. I think he would benefit from admission for chest pain since he is high risk. Patient amenable to this. Admitted in stable condition. Impression: 1. Chest pain Lab Data Attestation: I reviewed the patient's lab results. Labs: Laboratory Results - last 24 hr 10/21/23 18:35 WBC 6.1 RBC 4.42 L Hgb 11.9 L Hct 38.4 L MCV 86.9 MCH 26.9 L MCHC 31.0 L RDW Std Deviation 42.7 RDW Coeff of Cb 13.6 Plt Count TNP MPV 11.1 Immature Gran % (Auto) 0.200 Neut % (Auto) 63.5 Lymph % (Auto) 24.9 [place] % (Auto) 7.7 Eos % (Auto) 2.9 Baso % (Auto) 0.8 Absolute Neuts (auto) 3.9 Absolute Lymphs (auto) 1.52 Nucleated RBC % 0 Platelet Estimate ADEQUATE Sodium 139 Potassium 4.4 Chloride 108 H Carbon Dioxide 29.0 Anion Gap 2 L BUN 21 H Creatinine 1.25 Estim Creat Clear Calc 50.20 Est GFR (MDRD) Af Amer 72 Est GFR (MDRD) Non-Af 59 L BUN/Creatinine Ratio 16.8 Glucose 199 H Calcium 9.2 Troponin I High Sens 9 B-Natriuretic Peptide 78.4 Radiography Diagnostic Testing: Clinical Impression(s) from Imaging Studies Chest X-Ray 10/21/23 18:40 IMPRESSION: No radiographic evidence of acute cardiopulmonary disease. Electronically Signed: Brian Gaston MD at 19:20 EDT , Discharge Plan Triage Chief Complaint: Chest Pain ED Provider: John Neal Dx/Rx/DC Orders Prescriptions: No Action atorvastatin 40 mg tablet 40 mg PO DAILY ramipril 5 mg capsule 5 mg PO DAILY levothyroxine [Synthroid] 50 mcg tablet 50 mcg PO DAILY clopidogrel [Plavix] 75 mg tablet 75 mg PO DAILY folic acid 1 mg tablet 1 mg PO DAILY cholecalciferol (vitamin D3) 5,000 unit capsule 5,000 unit PO DAILY metformin [Glucophage] 1,000 mg tablet 1,000 mg PO DAILY tamsulosin [Flomax] 0.4 mg capsule 0.4 mg PO DAILY tadalafil [Cialis] 5 mg tablet 5 mg PO DAILY Janumet XR 100-1,000 mg tablet, ER multiphase 24 hr 1 tab PO QHS metoprolol succinate 50 mg tablet extended release 24 hr 50 mg PO DAILY tizanidine 4 mg tablet 4 mg PO BID PRN PRN (Reason: muscle spasm) A Thru Z High Potency Tablet 1 tab PO DAILY clonidine HCl 0.1 mg tablet 0.1 mg PO Q8H PRN (Reason: hypertensive emergency) polysaccharide iron complex [Ferrex 150] 150 mg iron capsule 150 mg PO DAILY Primary Care Provider: Denisa Macias Referrals: Denisa Macias DO [Primary Care Provider] - Print Language: Macedonian
[2023-10-21 19:20] LABS: Absolute Lymphocyte Count 1.52 X10^3/uL (0.83-4.51); Absolute Neutrophil Count 3.9 X10^3/uL (2.0-7.7); Basophil# 0.05 X10^3/uL; Basophil% 0.8 % (0-1); Eosinophil# 0.18 X10^3/uL; Eosinophils% 2.9 % (0-5); Hematocrit 38.4 % (40-54); Hemoglobin 11.9 g/dL (13.0-16.5); Lymphocyte # 1.52 X10^3/ul (0.83-4.51); Lymphocyte % 24.9 % (19-41); Mean Corpuscular Hgb 26.9 pg (27.0-32.0); Mean Corpuscular Volume 86.9 fL (80-94); Mean Platelet Vol. 11.1 fl (6.2-12.0); Monocyte# 0.47 X10^3/uL; Monocyte% 7.7 % (0-10); NRBC Flagged by Analyzer 0 % (0-5); Neutrophil # 3.88 X10^3/uL (2.7-7.7); Neutrophil % 63.5 % (47-70); POSITIVE COUNT YES; RBC Distribution Width CV 13.6 % (11.6-14.6); RBC Distribution Width SD 42.7 fl (35.1-43.9); Red Blood Count 4.42 M/mm3 (4.6-6.2); White Blood Count 6.1 K/mm3 (4.4-11.0)
[2023-10-21 19:31] LABS: Differential Indicated SCAN CRITERIA MET
[2023-10-21 19:32] LABS: Anion Gap 2 (5-15); BUN 21 mg/dL (7-18); BUN/Creat Ratio 16.8 RATIO (10-20); Calcium,Total 9.2 mg/dL (8.5-10.1); Chloride 108 mmol/L (98-107); Creatinine, Serum 1.25 mg/dL (0.70-1.30); EST Glomerular Filtration Rate 59 mL/min (>60); Est Glom Filt Rate - Afr Amer 72 mL/min (>60); Glucose 199 mg/dL (74-106); Potassium 4.4 mmol/L (3.5-5.1); Sodium Level 139 mmol/L (136-145); Troponin-I HS (w/2H Reflex) 9 pg/mL (3.0-78.0)
[2023-10-21 19:52] LABS: BNP,B-Type NATRIURETIC PEPTIDE 78.4 pg/mL (0-100)
[2023-10-21 20:00] LABS: Platelet Estimate ADEQUATE (ADEQ)
--- NOTE | 2023-10-21 20:35 | ED.RN ---
Report called to PCU nurse Andrew. No further questions by the receiving nurse at this time
--- NOTE | 2023-10-21 20:40 | HP.PCM.HOS_ITS ---
[facility] - General General Date of Service: 10/21/23 Chief Complaint: Chest pain HPI Narrative TOMMY KLEIN, is a 78 M who presents with chest pain and shortness of breath. Patient was walking up his driveway today which is up a hill and felt short of breath and is also having midsternal chest pain. The chest pain did not radiate but he went into his house and checked his blood pressure and it was noted that his systolic pressure was in the 190s. Saw his primary care doctor and blood pressure was slightly improved into the 170s or 180s but with his chest pain and shortness of breath, he was directed to the emergency room. Since arriving, patient's blood pressure is improved to 160s, his chest pain and shortness of breath have since resolved. Patient had a stress test a year ago but he does not recall if he had any similar or different symptoms at that time. He received aspirin in the emergency room. Typically, the patient is very active and walks 5 miles per day. Has never had any cardiac issues in the past. [facility] Medical History Normal esophagogastroduodenoscopy (EGD) Onychomycosis Anemia Adult hypothyroidism Uncontrolled diabetes mellitus with hyperglycemia Controlled diabetes mellitus type II without complication B12 deficiency Vitamin D deficiency Hypercholesteremia Insomnia Essential (primary) hypertension Heart murmur, aortic Occlusion and stenosis of unspecified carotid artery PVD (peripheral vascular disease) SARS (severe acute respiratory syndrome) GERD (gastroesophageal reflux disease) Unspecified contact dermatitis, unspecified cause Actinic keratosis Rosacea Skin abnormality Osteoarthritis, knee Displacement of lumbar intervertebral disc Sacroiliac joint pain Low back pain potentially associated with radiculopathy Left-sided thoracic back pain Muscle spasm Trigger finger of right hand Impingement syndrome of shoulder region Dribbling following urination BPH associated with nocturia Benign prostatic hyperplasia with urinary obstruction and other lower urinary tract symptoms Impotence Sinus bradycardia Heart murmur, systolic Heart murmur Head congestion PND (post-nasal drip) Paresthesia Decreased peripheral vibratory sense Subcutaneous nodules Nocturia Memory loss Fatigue Hyperglycemia Muscle strain Chronic anticoagulation Transient cerebral ischemia Diabetes mellitus Hypothyroidism HTN (hypertension) TIA (transient ischemic attack) Home Medications ?Medication ?Instructions ?Recorded ?Last Taken ?Type atorvastatin 40 mg tablet 40 mg PO DAILY 02/27/18 Unknown History cholecalciferol (vitamin D3) 125 5,000 unit PO DAILY 02/27/18 Unknown History mcg (5,000 unit) capsule clopidogrel 75 mg tablet (Plavix) 75 mg PO DAILY 02/27/18 Unknown History folic acid 1 mg tablet 1 mg PO DAILY 02/27/18 Unknown History levothyroxine 50 mcg tablet 50 mcg PO DAILY 02/27/18 Unknown History (Synthroid) ramipril 5 mg capsule 5 mg PO DAILY 02/27/18 Unknown History tadalafil 5 mg tablet (Cialis) 5 mg PO DAILY 06/21/22 Unknown History tamsulosin 0.4 mg capsule (Flomax) 0.4 mg PO DAILY 06/21/22 Unknown History metformin 1,000 mg tablet 1,000 mg PO DAILY 04/08/23 Unknown History (Glucophage) sitagliptin phos 100 mg-metformin 1 tab PO QHS 04/08/23 Unknown History ER 1,000 mg tablet,extend rel 24h mp (Janumet XR) clonidine HCl 0.1 mg tablet 0.1 mg PO Q8H PRN hypertensive 10/21/23 Unknown History emergency metoprolol succinate 50 mg 50 mg PO DAILY 10/21/23 Unknown History tablet,extended release 24 hr [id number] 1 tab PO DAILY 10/21/23 Unknown History tablet (A Thru Z High Potency tablet) polysaccharide iron complex 150 mg 150 mg PO DAILY 10/21/23 Unknown History iron capsule (Ferrex) tizanidine 4 mg tablet 4 mg PO BID PRN PRN muscle spasm 10/21/23 Unknown History Allergy/AdvReac Type Severity Reaction Status Date / Time shellfish derived Allergy Mild hives Verified 10/21/23 18:23 Fish Containing Products Allergy NEEDS Verified 10/21/23 18:23 (seafood) FOLLOW-UP Family History Father Heart disease Cancer brain Myocardial infarction CVA (cerebral vascular accident) Surgical History History of colonoscopy History of vasectomy History of tonsillectomy Social History Smoking Status: Never smoker alcohol intake: current alcohol intake frequency: holidays/special occasions only substance use type: does not use ROS ROS Narrative All review of systems were negative except as mentioned above in the history of present illness and the other review of systems. Vital Signs Vital Signs Vital Signs: 10/21/23 18:24 10/21/23 18:34 10/21/23 19:17 Temperature 36.9 C Temperature Source Temporal Pulse Rate 45 L 55 L Respiratory Rate 16 14 Blood Pressure 137/67 H Blood Pressure Mean 90 Pulse Ox 98 96 96 Oxygen Delivery Method Room Air Room Air 10/21/23 19:23 10/21/23 19:30 10/21/23 19:45 Temperature Temperature Source Pulse Rate 52 L 52 L 53 L Respiratory Rate 15 12 16 Blood Pressure 162/67 H 162/67 H 148/65 H Blood Pressure Mean 98 95 89 Pulse Ox 98 96 96 Oxygen Delivery Method Room Air 10/21/23 20:00 10/21/23 20:24 Temperature 36.8 C Temperature Source Pulse Rate 53 L 51 L Respiratory Rate 12 12 Blood Pressure 164/72 H 178/78 H Blood Pressure Mean 96 111 Pulse Ox 100 97 Oxygen Delivery Method Room Air Weight Weight: 84.459 kg Body Mass Index (BMI) 25.9 Physical Exam Const alert and no apparent distress Constitutional Narrative: Nontoxic. Afebrile. No respiratory distress. No conversational dyspnea. HEENT normocephalic and head/scalp atraumatic Eyes Eyes Narrative: No icterus. Neck no lymphadenopathy Neck Narrative: No thyromegaly Resp normal respiratory effort, no retractions, no use of accessory muscles and clear to auscultation bilaterally Cardio regular rate, regular rhythm, S1 normal heart sound and S2 normal heart sound GI normal to inspection, nondistended, normoactive bowel sounds, soft to palpation, non-tender and non-distended Extremity normal to inspection and no clubbing, cyanosis or edema Neuro Sensorium / Orientation: awake and alert Psych affect normal Results Lab / Micro Data Attestation: I reviewed the patient's lab results. 10/21/23 18:35 10/21/23 18:35 Labs: Laboratory Results - last 24 hr 10/21/23 18:35: WBC 6.1, RBC 4.42 L, Hgb 11.9 L, Hct 38.4 L, MCV 86.9, MCH 26.9 L, MCHC 31.0 L, RDW Std Deviation 42.7, RDW Coeff of Cb 13.6, Plt Count TNP, MPV 11.1, Immature Gran % (Auto) 0.200, Neut % (Auto) 63.5, Lymph % (Auto) 24.9, [place] % (Auto) 7.7, Eos % (Auto) 2.9, Baso % (Auto) 0.8, Absolute Neuts (auto) 3.9, Absolute Lymphs (auto) 1.52, Nucleated RBC % 0, Platelet Estimate ADEQUATE, Sodium 139, Potassium 4.4, Chloride 108 H, Carbon Dioxide 29.0, Anion Gap 2 L, B UN 21 H, Creatinine 1.25, Estim Creat Clear Calc 50.20, Est GFR (MDRD) Af Amer 72, Est GFR (MDRD) Non-Af 59 L, BUN/Creatinine Ratio 16.8, Glucose 199 H, Calcium 9.2, Troponin I High Sens 9, B-Natriuretic Peptide 78.4 EKG Initial EKG: Attestation: I personally reviewed and interpreted this EKG as follows: Prior EKG tracings: available for review EKG Rhythm Intrepretation: Sinus Bradycardia Imaging Radiology Impression Chest X-Ray 10/21/23 18:40 IMPRESSION: No radiographic evidence of acute cardiopulmonary disease. Electronically Signed: Brian Gaston MD at 19:20 EDT , Assessment & Plan Assessment/Plan (1) Chest pain: (2) Hypertensive urgency: PLAN: Plan Chest pain/stable angina * Symptoms occurred while the patient was walking up his hill. Patient blood pressure was elevated when he checked into the 190s. Immediately but also several times afterwards. He has not time to be at rest and still in the 190s. Is unclear if the chest pain causes blood pressure to go up or if his blood pressure was up which caused him to have chest pain. Thus far, it is no evidence of any kind of myocardial injury based on his EKG and troponins. * Plan: Continue to cycle his troponins, check treadmill nuclear stress in the morning. If stress test is abnormal or if troponins go segmentally higher, then patient will need cardiology consultation. Hypertensive urgency * Since improved. Patient did take a clonidine before presenting to the emergency room. He does have clonidine available only as needed. Typically his blood pressures in the 120s at home as he does check it fairly regularly. * They state that he takes omeprazole twice daily as well as metoprolol once daily. I will continue those medications. Have as needed hydralazine. Chronic conditions * Celiac disease: Not formally confirmed but patient knows when he send some dietary indiscretions with wheat. Will have him on a gluten-free diet. Patient to follow-up with gastroenterology as outpatient. * Hypothyroidism: Continue levothyroxine * Erectile dysfunction: Hold off on his Cialis for now. Avoid nitrates at this time. VTE prophylaxis: Low risk given observation. Discussed with the patient's at bedside. All questions answered. Charges/Coding Visit Charges Inpatient E&M: 09231 Init Hosp L2
[2023-10-21 21:12] LABS: Reflex Troponin-HS? (from REC) Y
--- NOTE | 2023-10-21 21:37 | EKG12_ITS ---
Test Reason : ADM EKG Blood Pressure : / mmHG Vent. Rate : 050 BPM Atrial Rate : 050 BPM P-R Int : 190 ms QRS Dur : 098 ms QT Int : 440 ms P-R-T Axes : 027 017 041 degrees QTc Int : 401 ms Sinus bradycardia Otherwise normal ECG When compared with ECG of 21-OCT-2023 18:29, MANUAL COMPARISON REQUIRED, DATA IS UNCONFIRMED Confirmed by GAEL YANG, CLAUDY ([id number]), multimedia editor MELANIE BAZAN ([id number]) on 10/25/2023 9:45:02 AM Referred By: WILIAM Confirmed By:BRITTNEY MAYO MD
[2023-10-21 21:52] LABS: Troponin-I HS 8 pg/mL (3.0-78.0)
[2023-10-22 00:53] LABS: Troponin-I HS 9 pg/mL (3.0-78.0)
[2023-10-22 03:02] VITALS: BP 147/78; PULSE 55; RESP 18; TEMP 36.6; O2SAT 99
--- NOTE | 2023-10-22 05:55 | EKG12_ITS ---
Test Reason : AM EKG Blood Pressure : / mmHG Vent. Rate : 047 BPM Atrial Rate : 047 BPM P-R Int : 172 ms QRS Dur : 092 ms QT Int : 456 ms P-R-T Axes : 030 035 050 degrees QTc Int : 403 ms Sinus bradycardia Otherwise normal ECG When compared with ECG of 21-OCT-2023 21:25, MANUAL COMPARISON REQUIRED, DATA IS UNCONFIRMED Confirmed by GAEL YANG, CLAUDY ([id number]), editor news MELANIE BAZAN ([id number]) on 10/25/2023 9:45:18 AM Referred By: WILIAM Confirmed By:BRITTNEY MAYO MD
[2023-10-22 06:23] VITALS: BP 180/78; PULSE 53; RESP 18; TEMP 36.3; O2SAT 98
[2023-10-22] MEDS: Clopidogrel Bisulfate 75 MG Tablet PO (06:34)
[2023-10-22] MEDS: Aspirin E.C. 81 MG Tablet PO (06:34)
[2023-10-22] MEDS: Ramipril 5 MG Capsule PO (06:34)
[2023-10-22 07:08] LABS: Bedside Glucose 130 mg/dL (74-106)
[2023-10-22 07:38] LABS: Hemoglobin A1c 6.6 % (3.8-5.6)
--- NOTE | 2023-10-22 08:40 | NURSING ---
Patient left unit for stress test
--- NOTE | 2023-10-22 10:52 | STRESSREP_ITS ---
Stress Test Report Date: 10/22/2023 Procedure: Exercise tolerance test/imaging study Indications: Chest pain Consent: Per the patient Procedure: The patient exercised on a Gurmeet protocol for 9 minutes achieving a peak heart rate of 106 bpm (75% predicted maximal heart rate) with a peak blood pressure 164/84 mmHg and a peak MET capacity of 10.1 METs. The baseline ECG demonstrated sinus bradycardia. The peak exercise ECG demonstrated sinus tachycardia with no significant ischemic ST-T changes. EKG during recovery revealed sinus rhythm with no significant ST-T changes [There were no cardiac dysrhythmias pretest, during exercise, or recovery]. The functional capacity was considered excellent for age. There was [no complaint of chest discomfort during exercise or recovery]. The examination was discontinued secondary to dyspnea. Impression: 1. Patient reached only 75% of maximal age-predicted heart rate. However he exercised for 9 minutes which is excellent for age. 2. Stress test is negative for exercise-induced EKG changes of ischemia 3. The test test is negative for exercise-induced chest pain 4. Functional capacity is excellent for age 5. Nuclear images pending Myocardial perfusion imaging study: Technique: The patient was injected with 11 mCi of technetium 99m Cardiolite and subsequently rest SPECT Cardiolite nuclear imaging was obtained in the horizontal long, vertical long, and short axis views. The patient exercised on a Gurmeet protocol. Please see above for details. The patient was injected with 33.9 mCi of technetium 99m Cardiolite and subsequently stress SPECT Cardiolite nuclear imaging was obtained in the horizontal long, vertical long, and short axis views. A gated Cardiolite study at peak stress was obtained. Interpretation: Rest and stress SPECT Cardiolite nuclear imaging status post realignment, normalization, and attenuation correction, demonstrates no evidence of significant ischemia or infarction. The gated Cardiolite study demonstrates no significant regional wall motion abnormalities. The reported LVEF is 62%. Impression: 1. There is no evidence of significant ischemia or infarction. 2. The gated Cardiolite study reports an LVEF of 62%. This note was generated with [employer] software. It may contain incorrect words, spelling, and punctuation that were not noted in checking the note before signing.
[2023-10-22] MEDS: Levothyroxine 50 MCG Tablet PO (11:09)
[2023-10-22] MEDS: Tamsulosin HCl 0.4 MG Capsule PO (11:09)
[2023-10-22] MEDS: Iron Polysaccharide Complex 150 MG CAPSULE PO (11:09)
[2023-10-22] MEDS: Folic Acid 1 MG Tablet PO (11:09)
[2023-10-22 11:20] VITALS: BP 130/82; PULSE 55; RESP 14; TEMP 36.7; O2SAT 99
[2023-10-22 11:30] VITALS: PULSE 55
[2023-10-22 11:35] LABS: Bedside Glucose 159 mg/dL (74-106)
[2023-10-22] MEDS: metFORMIN HCl 1,000 MG Tablet 1000 MG PO (11:43)
--- NOTE | 2023-10-22 12:20 | DCINST_ITS ---
Discharge Instructions Diet Discharge Diet: Low fat / Low cholesterol and Carb Control Diet Activity Discharge Activity: Return to Normal Activity Dressing / Incision Call your doctor if you observe: Fever of 101 or Higher, Shortness of breath, Dizziness, Fainting spells, Swelling in the ankles, Chest pain and Increased palpitations (irregular heartbeat) Follow Up Care Test Results: Test results from this visit will be discussed in further detail at your follow- up appointment, if applicable. Discharge Plan Admission Admit Date/Time: 10/21/23 20:33 Attending Provider: Natanael Wright Primary Care Provider: Denisa Macias Consulting Providers: Jakob Deleon Instructions Additional Instructions / Restrictions: Follow-up with your PCP in 3 to 5 days to monitor your blood pressure and make any adjustments as necessary Discharge Orders/Prescriptions Prescriptions: Continued atorvastatin 40 mg tablet 40 mg PO DAILY ramipril 5 mg capsule 5 mg PO DAILY levothyroxine [Synthroid] 50 mcg tablet 50 mcg PO DAILY clopidogrel [Plavix] 75 mg tablet 75 mg PO DAILY folic acid 1 mg tablet 1 mg PO DAILY cholecalciferol (vitamin D3) 5,000 unit capsule 5,000 unit PO DAILY metformin [Glucophage] 1,000 mg tablet 1,000 mg PO DAILY tamsulosin [Flomax] 0.4 mg capsule 0.4 mg PO DAILY tadalafil [Cialis] 5 mg tablet 5 mg PO DAILY Janumet XR 100-1,000 mg tablet, ER multiphase 24 hr 1 tab PO QHS metoprolol succinate 50 mg tablet extended release 24 hr 50 mg PO DAILY tizanidine 4 mg tablet 4 mg PO BID PRN PRN (Reason: muscle spasm) A Thru Z High Potency Tablet 1 tab PO DAILY clonidine HCl 0.1 mg tablet 0.1 mg PO Q8H PRN (Reason: hypertensive emergency) polysaccharide iron complex [Ferrex 150] 150 mg iron capsule 150 mg PO DAILY Referrals / Follow Up: Denisa Macias DO [Primary Care Provider] - Within 1 Week Disposition Disposition (needs filled in before D/C Order can be placed): Home, Self Care
--- NOTE | 2023-10-22 12:44 | CASEMGMT ---
Patient has order for discharge. RN CM in to discuss needs at discharge, at bedside. Patient and deny needs or help at discharge. Patient had no further questions or concerns.
--- NOTE | 2023-10-22 13:07 | PHA.DC.MR.R ---
Pharmacy PR Med Reconciliation Pharmacy Service has performed discharge medication reconciliation for this patient. The patient's discharge medication list was reviewed for discrepancies and discrepancies were resolved. Medications at Discharge Home Medications atorvastatin 40 mg tablet 40 mg PO DAILY 02/27/18 cholecalciferol (vitamin D3) 125 mcg (5,000 unit) capsule 5,000 unit PO DAILY 02/27/18 clopidogrel 75 mg tablet (Plavix) 75 mg PO DAILY 02/27/18 folic acid 1 mg tablet 1 mg PO DAILY 02/27/18 levothyroxine 50 mcg tablet (Synthroid) 50 mcg PO DAILY 02/27/18 ramipril 5 mg capsule 5 mg PO DAILY 02/27/18 tadalafil 5 mg tablet (Cialis) 5 mg PO DAILY 06/21/22 tamsulosin 0.4 mg capsule (Flomax) 0.4 mg PO DAILY 06/21/22 metformin 1,000 mg tablet (Glucophage) 1,000 mg PO DAILY 04/08/23 sitagliptin phos 100 mg-metformin ER 1,000 mg tablet,extend rel 24h mp (Janumet XR) 1 tab PO QHS 04/08/23 clonidine HCl 0.1 mg tablet 0.1 mg PO Q8H PRN hypertensive emergency 10/21/23 metoprolol succinate 50 mg tablet,extended release 24 hr 50 mg PO DAILY 10/21/23 xdxfmeuhycsi-vtgxitkv-jotwka tablet (A Thru Z High Potency tablet) 1 tab PO DAILY 10/21/23 polysaccharide iron complex 150 mg iron capsule (Ferrex) 150 mg PO DAILY 10/21/23 tizanidine 4 mg tablet 4 mg PO BID PRN PRN muscle spasm 10/21/23
--- NOTE | 2023-10-22 13:29 | PCM.DC.SUM ---
Providers Date of Admission: 10/21/23 Primary Care Physician: Dr. Denisa Macias DO Reason For Visit: CHEST PAIN Diagnosis Discharge Diagnosis (1) Chest pain: Status: Acute Code(s): R07.9 - Chest pain, unspecified (2) Hypertensive urgency: Status: Acute Code(s): I16.0 - Hypertensive urgency Medications at Discharge Home Medications atorvastatin 40 mg tablet 40 mg PO DAILY 02/27/18 cholecalciferol (vitamin D3) 125 mcg (5,000 unit) capsule 5,000 unit PO DAILY 02/27/18 clopidogrel 75 mg tablet (Plavix) 75 mg PO DAILY 02/27/18 folic acid 1 mg tablet 1 mg PO DAILY 02/27/18 levothyroxine 50 mcg tablet (Synthroid) 50 mcg PO DAILY 02/27/18 ramipril 5 mg capsule 5 mg PO DAILY 02/27/18 tadalafil 5 mg tablet (Cialis) 5 mg PO DAILY 06/21/22 tamsulosin 0.4 mg capsule (Flomax) 0.4 mg PO DAILY 06/21/22 metformin 1,000 mg tablet (Glucophage) 1,000 mg PO DAILY 04/08/23 sitagliptin phos 100 mg-metformin ER 1,000 mg tablet,extend rel 24h mp (Janumet XR) 1 tab PO QHS 04/08/23 clonidine HCl 0.1 mg tablet 0.1 mg PO Q8H PRN hypertensive emergency 10/21/23 metoprolol succinate 50 mg tablet,extended release 24 hr 50 mg PO DAILY 10/21/23 utlhinztkfpt-jgwaqrlq-wkkfav tablet (A Thru Z High Potency tablet) 1 tab PO DAILY 10/21/23 polysaccharide iron complex 150 mg iron capsule (Ferrex) 150 mg PO DAILY 10/21/23 tizanidine 4 mg tablet 4 mg PO BID PRN PRN muscle spasm 10/21/23 Hospital Course Operations None Procedures Stress test Summary of Care Provided Minutes Spent on Discharge: 36 Hospital Course: Per HPI: TOMMY KLEIN, is a 78 M who presents with chest pain and shortness of breath. Patient was walking up his driveway today which is up a hill and felt short of breath and is also having midsternal chest pain. The chest pain did not radiate but he went into his house and checked his blood pressure and it was noted that his systolic pressure was in the 190s. Saw his primary care doctor and blood pressure was slightly improved into the 170s or 180s but with his chest pain and shortness of breath, he was directed to the emergency room. Since arriving, patient's blood pressure is improved to 160s, his chest pain and shortness of breath have since resolved. Patient had a stress test a year ago but he does not recall if he had any similar or different symptoms at that time. He received aspirin in the emergency room. Typically, the patient is very active and walks 5 miles per day. Has never had any cardiac issues in the past. Hospital Course: 1. Chest pain/essential hypertension?78-year-old male presented to the hospital with chest pressure not feeling well yesterday. He was walking up the driveway when he started having chest pressure and went inside and checked his blood pressure was elevated to the 180s. He went to his PCP and it was 160 so she recommended him coming to the ER for further workup. EKG was nonischemic and his troponins were negative. He had a stress test which was negative for any ischemia with an EF in the 60s. He does have a heart murmur which she is aware of. Blood pressures improved while here with no adjustment to his blood pressure medications 230 systolic. I discussed with him the need to follow-up with his PCP to monitor his blood pressure as an outpatient as he states that in [place] his blood pressures were low and he was having dizziness which is why they removed him from some of his blood pressure medications. I discussed with him and his the plan for discharge today he expressed understanding the risk benefits of going home and would like to go home today. 2. Type 2 diabetes, iron deficiency anemia, celiac disease, hypothyroidism, BPH are all chronic medical conditions which complicate his care. His home medications were continued where appropriate Physical Exam Narrative General: Alert, Oriented x3, Cooperative, No apparent distress HEENT: Atraumatic, PERRLA, EOMI, Normocephalic Oral: Moist Mucosa Neck: Supple, No JVD Lungs: Diminished, normal air movement, No rhonchi, No wheeze, No rales Cardiovascular: Regular rate, Regular Rhythm, Normal S1, Normal S2, GISELE Abdomen: Soft, Non Tender, Non-Distended, No Hepato-splenomegaly Extremities: No edema, Capillary Refill Less than 3 Seconds Skin: No rashes, No breakdown Musculoskeletal: No Tenderness to Palpation of Joints or Extremities Neurological: No focal neurological deficits, Motor Exam 5/5 strength throughout, Sensory exam intact to light touch and pain Psych/Mental Status: Normal Affect, Appropriate Weight / BMI Weight Weight: 184 lb 15.485 oz Body Mass Index (BMI) 25.0 ABG / Lab / Microbiology Data 10/21/23 18:35 10/21/23 18:35 Laboratory: Laboratory Results - last 24 hr 10/21/23 18:35: WBC 6.1, RBC 4.42 L, Hgb 11.9 L, Hct 38.4 L, MCV 86.9, MCH 26.9 L, MCHC 31.0 L, RDW Std Deviation 42.7, RDW Coeff of Cb 13.6, Plt Count TNP, MPV 11.1, Immature Gran % (Auto) 0.200, Neut % (Auto) 63.5, Lymph % (Auto) 24.9, Elliott % (Auto) 7.7, Eos % (Auto) 2.9, Baso % (Auto) 0.8, Absolute Neuts (auto) 3.9, Absolute Lymphs (auto) 1.52, Nucleated RBC % 0, Platelet Estimate ADEQUATE, Sodium 139, Potassium 4.4, Chloride 108 H, Carbon Dioxide 29.0, Anion Gap 2 L, BUN 21 H, Creatinine 1.25, Estim Creat Clear Calc 50.20, Est GFR (MDRD) Af Amer 72, Est GFR (MDRD) Non-Af 59 L, BUN/Creatinine Ratio 16.8, Glucose 199 H, Calcium 9.2, Troponin I High Sens 9, B-Natriuretic Peptide 78.4 10/21/23 21:25: Troponin I High Sens 8 10/22/23 00:16: Troponin I High Sens 9 10/22/23 06:22: Hemoglobin A1c 6.6 H 10/22/23 06:32: POC Glucose 130 H 10/22/23 11:05: POC Glucose 159 H Radiography Diagnostic Testing: Radiology Impression Chest X-Ray 10/21/23 18:40 IMPRESSION: No radiographic evidence of acute cardiopulmonary disease. Electronically Signed: Brian Gaston MD at 19:20 EDT , D/C Instructions Discharge Diet: Low fat / Low cholesterol and Carb Control Diet Call your doctor if you observe: Fever of 101 or Higher, Shortness of breath, Dizziness, Fainting spells, Swelling in the ankles, Chest pain and Increased palpitations (irregular heartbeat) Meaningful Use Info Meaningful Use Meaningful Use Diagnoses (Choose all that apply): None applicable Ischemic Stroke Statin Dosing Therapy Reference: STATIN DOSE THERAPY REFERENCE: * Patients > 75 years receive moderate or high dose statin therapy. * Patients 75 years or YOUNGER should receive HIGH intensity statin dose unless contraindicated. You will be required to document reason for non-treatment if statin daily dose does not meet guidelines. HIGH DOSE STATIN THERAPY DAILY Atorvastatin > than or = to 40 mg Rosuvastatin > than or = to 20 mg Amlodipine + Atorvastatin > than or = to 2.5/40 mg Ezetimibe + Simvastatin 10/80 mg Simvastatin 80mg Discharge Plan Admission Admit Date/Time: 10/21/23 20:33 Primary Reason for Your Visit: Chest discomfort Attending Provider: Natanael Wright Primary Care Provider: Denisa Macias Consulting Providers: Jakob Deleon Instructions Additional Instructions / Restrictions: Follow-up with your PCP in 3 to 5 days to monitor your blood pressure and make any adjustments as necessary Discharge Orders/Prescriptions Prescriptions: Continued atorvastatin 40 mg tablet 40 mg PO DAILY ramipril 5 mg capsule 5 mg PO DAILY levothyroxine [Synthroid] 50 mcg tablet 50 mcg PO DAILY clopidogrel [Plavix] 75 mg tablet 75 mg PO DAILY folic acid 1 mg tablet 1 mg PO DAILY cholecalciferol (vitamin D3) 5,000 unit capsule 5,000 unit PO DAILY metformin [Glucophage] 1,000 mg tablet 1,000 mg PO DAILY tamsulosin [Flomax] 0.4 mg capsule 0.4 mg PO DAILY tadalafil [Cialis] 5 mg tablet 5 mg PO DAILY Janumet XR 100-1,000 mg tablet, ER multiphase 24 hr 1 tab PO QHS metoprolol succinate 50 mg tablet extended release 24 hr 50 mg PO DAILY tizanidine 4 mg tablet 4 mg PO BID PRN PRN (Reason: muscle spasm) A Thru Z High Potency Tablet 1 tab PO DAILY clonidine HCl 0.1 mg tablet 0.1 mg PO Q8H PRN (Reason: hypertensive emergency) polysaccharide iron complex [Ferrex 150] 150 mg iron capsule 150 mg PO DAILY Referrals / Follow Up: Denisa Macias DO [Primary Care Provider] - Within 1 Week Disposition Disposition (needs filled in before D/C Order can be placed): Home, Self Care Charges/Coding Visit Charges Inpatient E&M: 70974 Disch Hosp >30min
== END 2023-10-22 13:27 | disposition home or self-care (01) ==
LOC: ED 19:21 → PCU 20:53
PROVIDERS: Emergency Provider Student in an Organized Health Care Education/Training Program; PCP Internal Medicine; Visit Provider Family Medicine
DX: R07.89 Other chest pain (principal); E11.51 Type 2 diabetes mellitus with diabetic peripheral angiopathy without gangrene; I16.0 Hypertensive urgency; D50.9 Iron deficiency anemia, unspecified; K90.0 Celiac disease; E78.00 Pure hypercholesterolemia, unspecified; I10 Essential (primary) hypertension; R01.1 Cardiac murmur, unspecified; E03.9 Hypothyroidism, unspecified; R06.02 Shortness of breath; Z79.899 Other long term (current) drug therapy; Z79.02 Long term (current) use of antithrombotics/antiplatelets; Z79.890 Hormone replacement therapy; K21.9 Gastro-esophageal reflux disease without esophagitis; Z79.84 Long term (current) use of oral hypoglycemic drugs; N40.1 Benign prostatic hyperplasia with lower urinary tract symptoms; N13.8 Other obstructive and reflux uropathy; R35.1 Nocturia
CPT/HCPCS: 36415; 71045; 78452; 80048; 82962; 83036; 83880; 84484; 85025; 93005; 93017; 99221; 99284; A9500; A4216; G0378

== ENCOUNTER 2023-10-30 16:00 | Outpatient (RCR) | payer MEDICARE, OTHER, SELFPAY ==
--- NOTE | 2023-09-30 18:25 | HP.PTEVAL ---
Patient's Visit Information Visit Information Visit Information: TOMMY KLEIN is a 78 year old M referred to Physical Therapy by Dr. Denisa Macias DO with a diagnosis of Cervical Radiculopathy. Date of Evaluation: 09/30/23 Physical Therapist: Griselda Stockton DPT Visit Plan Frequency: 2x /Week Duration: 4 Weeks Plan: Focus on scapular strength/stabilization, pec stretching- HEP program for return to gym membership. HEP Given IE: Postural correction, education on musculature, scapular retractions, upper trap stretch, levator stretch Subjective Subjective: Patient reports that he has neck and shoulder issues- OA in the spine. The main issue is in the the left shoulder blade. The pain is there all the time. The pain is located along the scapula and it does not radiate. 3-10. More of an irritation. He does not notice anything that changes the discomfort. He does not have any pain that radiates down the arm- no N/T. He has been to a chiropractor and that did not change anything- they tried traction- no change. He has tried heat and that did relieve it a little bit. No headache. 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 He writes left handed and plays golf/ball right handed. Sleep: he has to find a comfortable position at night. They took an x-ray- and he thinks they maybe doing an MRI. PMHX/Meds: see list in chart. Objective Objective: Posture: forward head, rounded shoulders- can correct with verbal and tactile cues but does not maintain Observation: winging of the scapula left>right Palpation: tender along insertion of the levator into the left scapula ROM: cervical spine: flexion/ext: WNL, SB and rotation: limited by 50%- pain with SB to the right- UE: WNL Strength: Scap: poor, Shoulder: 4+/5 throughout Special Test: distraction: negative- no change in symptoms- Dural signs: negative Balance/Special Test Scores Oswestry Neck Score: 10 Goals Goal 1:: Patient will be I with HEP and progression Goal Time Frame: 4-6 Weeks Goal 2:: Patient will maintain proper posture t/o tx session to demo increased scap s/s Goal Time Frame: 4-6 Weeks Goal 3:: Patient will have no pain with palpation to levator insertion Goal Time Frame: 4-6 Weeks Goal 4:: Patient will report 80% improvement Goal Time Frame: 4-6 Weeks Rehabilitation Potential Physical Therapy Diagnosis: Patient has decreased scapular strength/stabilization and muscular endurance leading to poor posture and imbalance decreasing ability to perform ADL's. without pain Anticipated Interventions Patient/Client Instruction: Educate patient on: Benefits of Fitness Program Therapeutic Exercise to Include: Strength training, Endurance training, Coordination, Agility training, Body mechanics, Postural training, Flexibilty training, Neuromotor development, Passive ROM, Active ROM, Dynamic Lumbar Stabilization and Scapular Strength/Stabilization For the Purpose of:: To improve muscle performance and motor function Manual Therapy Techniques to Include: Soft tissue mobilization TENS: Yes Cryotherapy (ice pack, ice massage): Yes Thermo therapy (hot pack): Yes Ultrasound (thermal/non thermal): Yes Text: Thank you for the opportunity to evaluate your patient. For Medicare and Medicare HMO plans, please review the plan of care and approve it. It will need to be FAXED BACK to us at [phone] for Medicare purposes. For Medicare only, by signing this I certify the plan of care. Please let me know if there are questions or concerns regarding this plan of care. Physician Signature: Date:
--- NOTE | 2023-10-30 16:24 | HP.PTDCSUM_ITS ---
Discharge Summary D/C summary: It has been my pleasure to treat TOMMY KLEIN referred by Dr. Denisa Macias DO, with the diagnosis of Cervical Radiculopathy for a total of 8 visit(s). Discharge Date: Please see the following information for a summary of their discharge status. Subjective Subjective: Patient reports that he is sitting here with no neck pain- he feels that he is comfortable with his program- and plans to stay with light weights. He has lost a lot of weight and he has lost a lot of muscle mass and he is planning to continue through health and wellness. 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 Pain c-spine: Pain Intensity (Out of 10): 0 Overall Improvement % Improvement: 50 Objective Objective/Function: Posture: good throughout Observation: no winging of the scapula Palpation: not tender along medial border of the scapula ROM: cervical spine: WNL in all directions Strength: Scap: fair plus, Shoulder: 4+/5 throughout Special Test: distraction: negative- no change in symptoms- Dural signs: negative Goals Goal 1:: Patient will be I with HEP and progression Goal Progress: Goal Met Goal 2:: Patient will maintain proper posture t/o tx session to demo increased scap s/s Goal Progress: Goal Met Goal 3:: Patient will have no pain with palpation to levator insertion Goal Progress: Goal Met Goal 4:: Patient will report 80% improvement Goal Progress: Progressing Plan Plan: Focus on scapular strength/stabilization, pec stretching- HEP program for return to gym membership. HEP Given IE: Postural correction, education on musculature, scapular retractions, upper trap stretch, levator stretch D/C Information d/c sentence: If there are questions or concerns regarding this patient's physical therapy, please feel free to call me at [phone]. Thank you for the referral of this patient. Sincerely, Griselda Stockton, DPT Balance/Gait/Functional tests Balance/Special Test Scores Oswestry Neck Score: 7 Improvement % Improvement: 50
== END 2023-10-30 19:00 | disposition home or self-care (01) ==
LOC: PT 16:00
PROVIDERS: PCP Internal Medicine; Referring Provider Internal Medicine; Visit Provider Internal Medicine
DX: M54.12 Radiculopathy, cervical region (principal); M62.838 Other muscle spasm
CPT/HCPCS: 97110; 97162; 97530

== ENCOUNTER 2024-04-06 19:53 | Emergency (ER) | payer MEDICARE, OTHER, SELFPAY ==
[2024-04-06 19:53] VITALS: BP 203/90; PULSE 55; RESP 16; TEMP 36.6; O2SAT 100
[2024-04-06 19:55] VITALS: BMI 26.4
--- NOTE | 2024-04-06 20:30 | ED.RN ---
Patient's family to nurses station with home BP cuff stating patients blood pressure was increasing. Patient placed on monitor at this time.
[2024-04-06 20:53] VITALS: BP 202/75; PULSE 54; RESP 16; O2SAT 99
--- NOTE | 2024-04-06 20:57 | CT_ITS ---
EXAM: CT HEAD WITHOUT INTRAVENOUS CONTRAST CLINICAL INDICATION: headache TECHNIQUE: Multiple axial images were obtained of the head without intravenous contrast. This CT exam was performed using one or more of the following dose reduction techniques: automated exposure control, adjustment of the mA and/or kV according to patient size, and/or use of iterative reconstruction technique. COMPARISON: 05/21/2016 FINDINGS: BRAIN AND EXTRA-AXIAL SPACES: There is mild enlargement of ventricular system and cortical sulci. No intra- or extra-axial hemorrhage. No evidence of acute infarct. No intracranial mass or mass effect. There is preservation of the lares/white matter interface. Posterior fossa structures are unremarkable. Basal cisterns are patent. BONES/JOINTS: Unremarkable. No discrete lytic or blastic abnormalities. SINUSES: Unremarkable as visualized. Clear. MASTOID AIR CELLS: Unremarkable. Clear. ORBITS: Visualized globes, extraocular muscles, optic nerves and retrobulbar fat appear unremarkable. CT/Brain/Head without Contrast IMPRESSION: No acute findings in the head/brain. There has been no significant change from the reference exam. Electronically Signed: Brian Gaston MD at 21:53 EST ,
[2024-04-06 21:00] VITALS: PULSE 53; RESP 13; O2SAT 98
[2024-04-06 21:31] LABS: Absolute Lymphocyte Count 1.51 X10^3/uL (0.83-4.51); Absolute Neutrophil Count 3.3 X10^3/uL (2.0-7.7); Basophil# 0.04 X10^3/uL; Basophil% 0.7 % (0-1); Eosinophil# 0.16 X10^3/uL; Eosinophils% 2.9 % (0-5); Hematocrit 34.2 % (40-54); Lymphocyte # 1.51 X10^3/ul (0.83-4.51); Lymphocyte % 27.8 % (19-41); Mean Corp Hgb Conc 32.2 g/dL (32-36); Mean Corpuscular Hgb 27.5 pg (27.0-32.0); Mean Corpuscular Volume 85.5 fL (80-94); Mean Platelet Vol. 9.7 fl (6.2-12.0); Monocyte# 0.45 X10^3/uL; Monocyte% 8.3 % (0-10); NRBC Flagged by Analyzer 0 % (0-5); Neutrophil # 3.26 X10^3/uL (2.7-7.7); Neutrophil % 60.1 % (47-70); Platelet Count 222 K/mm3 (150-450); RBC Distribution Width CV 13.4 % (11.6-14.6); RBC Distribution Width SD 41.8 fl (35.1-43.9); White Blood Count 5.4 K/mm3 (4.4-11.0)
[2024-04-06 21:42] LABS: Anion Gap 3 (5-15); BUN 15 mg/dL (7-18); BUN/Creat Ratio 10.6 RATIO (10-20); Calcium,Total 9.2 mg/dL (8.5-10.1); Chloride 109 mmol/L (98-107); Creatinine, Serum 1.42 mg/dL (0.70-1.30); EST Glomerular Filtration Rate 51 mL/min (>60); Est Glom Filt Rate - Afr Amer 62 mL/min (>60); Estimated Creatinine Clearance 45.54 ml/min; Glucose 185 mg/dL (74-106); Potassium 4.4 mmol/L (3.5-5.1); Sodium Level 141 mmol/L (136-145)
[2024-04-06 22:00] VITALS: BP 193/79; PULSE 55; RESP 15; O2SAT 97
[2024-04-06] MEDS: amLODIPine 5 MG Tablet PO (22:12)
--- NOTE | 2024-04-06 22:26 | EDS_ITS ---
HPI History of Present Illness Chief Complaint: Hypertension Informant: patient and spouse/S.O. Narrative Narrative: Patient presents with spouse elevated blood pressure slight headache today. History of hypertension. States blood pressure has been going up in the last month. He was referred to cardiology this summer due to high calcium score. He was cleared from a cardiac standpoint. Blood pressure usually normal in the 120s to 130s per spouse. Also states sent for carotid testing noted that his blood pressure is elevated. Has been keeping an eye on his blood pressures saw his PCP Dr. Macias March 26. Primary initial medication metoprolol 50 mg, ramipril 5 mg twice daily, clonidine 0.1 mg as needed. During the visit he has ramipril increased to twice a day told to follow-up in a few weeks. In the last week blood pressure has been going up and right now. This was reviewed. Been up as high as 180 for which she has been using clonidine once a day for this. This has been helping going down to 140s 150s. Today noted 203/80 therefore he came to the ED with his lightheaded symptoms. Denies chest pains. Denies nausea or vomiting. Denies any changes in his diet. [facility] Medical History Pure hypercholesterolemia, unspecified Abnormal findings on diagnostic imaging of heart and coronary circulation Normal esophagogastroduodenoscopy (EGD) Onychomycosis Anemia Controlled diabetes mellitus type II without complication B12 deficiency Vitamin D deficiency Hypercholesteremia Insomnia Essential (primary) hypertension Heart murmur, aortic Occlusion and stenosis of unspecified carotid artery PVD (peripheral vascular disease) SARS (severe acute respiratory syndrome) GERD (gastroesophageal reflux disease) Unspecified contact dermatitis, unspecified cause Actinic keratosis Rosacea Skin abnormality Osteoarthritis, knee Displacement of lumbar intervertebral disc Sacroiliac joint pain Low back pain potentially associated with radiculopathy Left-sided thoracic back pain Muscle spasm Trigger finger of right hand Impingement syndrome of shoulder region Dribbling following urination BPH associated with nocturia Benign prostatic hyperplasia with urinary obstruction and other lower urinary tract symptoms Impotence Sinus bradycardia Heart murmur, systolic Heart murmur PND (post-nasal drip) Paresthesia Decreased peripheral vibratory sense Subcutaneous nodules Nocturia Memory loss Fatigue Muscle strain Chronic anticoagulation Transient cerebral ischemia Hypothyroidism TIA (transient ischemic attack) Home Medications ?Medication ?Instructions ?Recorded ?Last Taken ?Type atorvastatin 40 mg tablet 40 mg PO DAILY 02/27/18 Unknown History cholecalciferol (vitamin D3) 125 5,000 unit PO DAILY 02/27/18 Unknown History mcg (5,000 unit) capsule clopidogrel 75 mg tablet (Plavix) 75 mg PO DAILY 02/27/18 Unknown History folic acid 1 mg tablet 1 mg PO DAILY 02/27/18 Unknown History levothyroxine 50 mcg tablet 50 mcg PO DAILY 02/27/18 Unknown History (Synthroid) tadalafil 5 mg tablet (Cialis) 5 mg PO DAILY 06/21/22 Unknown History tamsulosin 0.4 mg capsule (Flomax) 0.4 mg PO DAILY 06/21/22 Unknown History metformin 1,000 mg tablet 1,000 mg PO DAILY 04/08/23 Unknown History (Glucophage) sitagliptin phos 100 mg-metformin 1 tab PO QHS 04/08/23 Unknown History ER 1,000 mg tablet,extend rel 24h mp (Janumet XR) clonidine HCl 0.1 mg tablet 0.1 mg PO Q8H PRN hypertensive 10/21/23 Unknown History emergency metoprolol succinate 50 mg 50 mg PO DAILY 10/21/23 Unknown History tablet,extended release 24 hr [id number] 1 tab PO DAILY 10/21/23 Unknown History tablet (A Thru Z High Potency tablet) polysaccharide iron complex 150 mg 150 mg PO DAILY 10/21/23 Unknown History iron capsule (Ferrex) tizanidine 4 mg tablet 4 mg PO BID PRN PRN muscle spasm 10/21/23 Unknown History ramipril 5 mg capsule 5 mg PO BID 02/17/24 Unknown History loratadine 10 mg tablet (Claritin) 10 mg PO QDAY PRN 03/05/24 Unknown History amlodipine 5 mg tablet 5 mg PO DAILY #30 tabs 04/06/24 Unknown Rx Allergy/AdvReac Type Severity Reaction Status Date / Time shellfish derived Allergy Mild hives Verified 04/06/24 19:53 Fish Containing Products Allergy Hives Verified 04/06/24 19:53 (seafood) Family History Father Heart disease Cancer brain Myocardial infarction CVA (cerebral vascular accident) Surgical History History of colonoscopy History of vasectomy History of tonsillectomy Social History Smoking Status: Never smoker alcohol intake: current alcohol intake frequency: holidays/special occasions only substance use type: does not use ROS ROS ED Constitutional Constitutional ED: Denies chills, fever(s) or sweats ENT ENT ED: Denies sore throat Cardiovascular Cardiovascular: Denies chest pain, leg edema, palpitations or racing heartbeat Respiratory/Chest Respiratory/Chest: Denies cough, dyspnea or dyspnea on exertion Gastrointestinal Gastrointestinal: Denies abdominal pain, diarrhea, nausea or vomiting Genitourinary Genitourinary ED: Denies dysuria, hematuria or urinary frequency Musculoskeletal Musculoskeletal: Denies back pain, extremity pain or neck pain Integumentary Denies rash or wounds Neurologic Neurologic: Reports headache(s); Denies paresthesias or weakness EXAM Physical Exam Const Vital Signs: 04/06/24 19:53 04/06/24 20:53 04/06/24 21:00 Temperature 97.8 F Temperature Source Oral Pulse Rate 55 L 54 L 53 L Respiratory Rate 16 16 13 Blood Pressure 203/90 H 202/75 H Blood Pressure Mean 127 117 Pulse Ox 100 99 98 Oxygen Delivery Method Room Air Room Air Room Air 04/06/24 22:00 Temperature Temperature Source Pulse Rate 55 L Respiratory Rate 15 Blood Pressure 193/79 H Blood Pressure Mean 117 Pulse Ox 97 Oxygen Delivery Method Room Air Positive well nourished and well developed General Appearance ED: well developed and NAD HEENT Reports moist mucous membranes normocephalic and atraumatic Eyes General Eye ED: Yes normal appearance of both eyes Neck full ROM Neck Narrative: No meningismus Chest Wall Chest: Negative for tenderness Resp normal respiratory effort and normal air movement Effort and Inspection: symmetric chest movement; Negative for respiratory distress Cardio regular rate, regular rhythm and no murmurs Peripheral Pulses: pulses 2+ throughout GI normal to inspection, nondistended, normoactive bowel sounds and non-tender Palpation: Negative for guarding or rebound tenderness present Extremity normal to inspection General Extremety ED: Negative for edema or tenderness General Extremity: Negative for edema Neuro oriented x3, CN's II-XII intact bilaterally and no sensory deficits noted Sensorium / Orientation: awake and alert Skin no rashes or lesions noted and no wounds MDM MDM MDM Narrative Medical decision making narrative: Interventions / MDM: Differential diagnosis: Accelerated hypertension, headache Diagnosis considered but do not suspect: No clinical hypertensive emergency, intracranial hemorrhage however CT negative. My EKG interpretation: N/A Imaging independently reviewed and interpreted by myself: CT brain: No acute process. Also read by radiology. External documents reviewed: N/A Test considered but not ordered:N/A ED course: Patient initial blood pressure 203/90 on arrival during my evaluation it was 175/91. Reported headache at home with blood pressure elevated. CT brain ordered labs ordered. CT scan negative labs stable. Creatinine 1.4 GFR 51. Blood pressure rechecked during my evaluation 193/79. No chest pains no nausea or vomiting. I spoke with on-call physician Dr. Velasquez discussed patient's history and his visit with his primary doctor and his blood pressure readings and his daily clonidine use when needed. This time she recommended starting amlodipine 5 mg daily. He will continue his home medicines and clonidine as needed. Will call the office for follow-up for blood pressure recheck. This complaint the patient spouse who understands agrees with plan. All questions were answered. Re-evaluation: stable Disposition discussed with patient/family/significant other: Patient and spouse Case discussed with consulting clinician: PCP This note was generated with [employer] dictation software. It may contain incorrect words, spelling, and punctuation that were not noted in checking the note before signing. Lab Data Attestation: I reviewed the patient's lab results. Labs: Laboratory Results - last 24 hr 04/06/24 21:20 WBC 5.4 RBC 4.00 L Hgb 11.0 L Hct 34.2 L MCV 85.5 MCH 27.5 MCHC 32.2 RDW Std Deviation 41.8 RDW Coeff of Cb 13.4 Plt Count 222 MPV 9.7 Immature Gran % (Auto) 0.200 Neut % (Auto) 60.1 Lymph % (Auto) 27.8 [place] % (Auto) 8.3 Eos % (Auto) 2.9 Baso % (Auto) 0.7 Absolute Neuts (auto) 3.3 Absolute Lymphs (auto) 1.51 Nucleated RBC % 0 Sodium 141 Potassium 4.4 Chloride 109 H Carbon Dioxide 29.0 Anion Gap 3 L BUN 15 Creatinine 1.42 H Estim Creat Clear Calc 45.54 Est GFR (MDRD) Af Amer 62 Est GFR (MDRD) Non-Af 51 L BUN/Creatinine Ratio 10.6 Glucose 185 H Calcium 9.2 Radiography Diagnostic Testing: Clinical Impression(s) from Imaging Studies Brain CT 04/06/24 20:57 IMPRESSION: No acute findings in the head/brain. There has been no significant change from the reference exam. Electronically Signed: Brian Gaston MD at 21:53 EST , Discharge Plan Triage Chief Complaint: Hypertension Other Complaint: Headache ED Provider: Kris Dillon Dx/Rx/DC Orders Clinical Impression: Elevated blood pressure reading in office with diagnosis of hypertension, Headache Instructions: ED Hypertension, Established Prescriptions: New amlodipine 5 mg tablet 5 mg PO DAILY Qty: 30 0RF No Action atorvastatin 40 mg tablet 40 mg PO DAILY levothyroxine [Synthroid] 50 mcg tablet 50 mcg PO DAILY clopidogrel [Plavix] 75 mg tablet 75 mg PO DAILY folic acid 1 mg tablet 1 mg PO DAILY cholecalciferol (vitamin D3) 5,000 unit capsule 5,000 unit PO DAILY metformin [Glucophage] 1,000 mg tablet 1,000 mg PO DAILY ramipril 5 mg capsule 5 mg PO BID tamsulosin [Flomax] 0.4 mg capsule 0.4 mg PO DAILY tadalafil [Cialis] 5 mg tablet 5 mg PO DAILY Janumet XR 100-1,000 mg tablet, ER multiphase 24 hr 1 tab PO QHS loratadine [Claritin] 10 mg tablet 10 mg PO QDAY PRN metoprolol succinate 50 mg tablet extended release 24 hr 50 mg PO DAILY tizanidine 4 mg tablet 4 mg PO BID PRN PRN (Reason: muscle spasm) A Thru Z High Potency Tablet 1 tab PO DAILY clonidine HCl 0.1 mg tablet 0.1 mg PO Q8H PRN (Reason: hypertensive emergency) polysaccharide iron complex [Ferrex 150] 150 mg iron capsule 150 mg PO DAILY Primary Care Provider: Denisa Macias Referrals: Denisa Macias DO [Primary Care Provider] - 1 Week Activity Restrictions/Additional Instructions: CT head negative. Labs are stable. Discussed with Dr. Velasquez, take amlodipine as prescribed. Continue ramipril 10 mg twice a day. Continue your metoprolol. Continue to monitor and log your blood pressure, use clonidine as needed as prescribed. Follow-up with the office in the next week. Print Language: Setswana Disposition Disposition: Home, Self Care Discharge Date/Time: 04/06/24 22:55
[2024-04-06 22:37] VITALS: BP 200/85; PULSE 50; RESP 19; TEMP 36.9; O2SAT 100
== END 2024-04-06 22:55 | disposition home or self-care (01) ==
PROVIDERS: Emergency Provider Emergency Medicine; PCP Internal Medicine; Visit Provider Emergency Medicine
DX: R03.0 Elevated blood-pressure reading, without diagnosis of hypertension (principal); E11.9 Type 2 diabetes mellitus without complications; R51.9 Headache, unspecified; E78.00 Pure hypercholesterolemia, unspecified; N40.1 Benign prostatic hyperplasia with lower urinary tract symptoms; N13.8 Other obstructive and reflux uropathy; E03.9 Hypothyroidism, unspecified; Z79.02 Long term (current) use of antithrombotics/antiplatelets; Z79.84 Long term (current) use of oral hypoglycemic drugs; Z79.890 Hormone replacement therapy; Z79.899 Other long term (current) drug therapy; Z86.73 Personal history of transient ischemic attack (TIA), and cerebral infarction without residual deficits
CPT/HCPCS: 70450; 80048; 85025; 99285; A4216

== ENCOUNTER → 2024-04-06 | Outpatient (CLI) | payer MEDICARE, OTHER, SELFPAY | END | disposition home or self-care (01) | LOC: PSN 08:05 | PROVIDERS: PCP Internal Medicine; Referring Provider Internal Medicine; Visit Provider Internal Medicine | DX: R06.09 Other forms of dyspnea (principal) | CPT/HCPCS: 94060; 94726; 94729 ==

== ENCOUNTER → 2024-04-11 | Outpatient (CLI) | payer MEDICARE, OTHER, SELFPAY ==
--- NOTE | 2024-04-11 08:04 | US_ITS ---
STUDY: RENAL ULTRASOUND - COMPLETE REASON FOR EXAM: Male, 78 years old. Hypertensive Urgency i16.0 -- Left kidney TECHNIQUE: Ultrasound evaluation of the kidneys was performed with real-time and static sepulveda-scale imaging. COMPARISON: None. FINDINGS: RIGHT KIDNEY: Normal location of the right kidney, which is normal in size. The right kidney measures 11.2 cm. . There is a normal cortex of the right kidney. 7 mm exophytic cyst. There are no right renal calculi. There is no right hydronephrosis. DISTAL RIGHT URETER: There is non-visualization of the distal right ureter. There is no demonstrated right ureterovesical junction calculus. There is no demonstrated right ureteral jet. LEFT KIDNEY: Normal location of the left kidney, which is normal in size. The left kidney measures 12.3 cm. . There is a normal cortex of the left kidney. There is no left renal mass or cyst. There are no left renal calculi. There is no left hydronephrosis. DISTAL LEFT URETER: There is non-visualization of the distal left ureter. There is no demonstrated left ureterovesical junction calculus. There is no demonstrated left ureteral jet. AORTA: There is obscuration of the abdominal aorta by overlying bowel gas I.V.C.: It is not visualized. There is too much overlying bowel gas. BLADDER: The distended urinary bladder has a volume in cc of 97. Postvoid volume of 25 cc. There is focal wall thickening of the distended bladder. Prostate gland has a volume of 28 cc. US/Kidney and Bladder IMPRESSION: Simple right renal cyst. Thickening of the urinary bladder. This can suggest cystitis. Electronically Signed: Aftab Camara MD at 21:23 EST ,
== END | disposition home or self-care (01) ==
LOC: US 08:01
PROVIDERS: PCP Internal Medicine; Referring Provider Internal Medicine; Visit Provider Internal Medicine
DX: I16.0 Hypertensive urgency (principal)
CPT/HCPCS: 76770

== ENCOUNTER → 2024-04-13 | Outpatient (CLI) | payer MEDICARE, OTHER, SELFPAY | END | disposition home or self-care (01) | LOC: LABSPEC 12:13 | PROVIDERS: PCP Internal Medicine; Referring Provider Internal Medicine Medical Oncology; Visit Provider Internal Medicine Medical Oncology | DX: E61.1 Iron deficiency (principal) | CPT/HCPCS: 82274 ==

== ENCOUNTER → 2024-04-16 | Outpatient (CLI) | payer MEDICARE, OTHER, SELFPAY ==
--- NOTE | 2024-04-16 09:05 | RDU_ITS ---
Reason For Study: HTN Right Renal Artery Left Renal Artery Right renal artery ostium 76.9/17.9 Left renal artery ostium 63.3/9.5 RSV/EDV. PSV/EDV. Right renal artery proximal Left renal artery proximal PSV/EDV 118/19.4 PSV/EDV. 56.7/11.6 . Right renal artery mid 143.5/23 Left renal artery mid 65/15.8 PSV/EDV. PSV/EDV . Right renal artery distal 99.7/17.5 Left renal artery distal 65.8/13.1 PSV/EDV. PSV/EDV. Right RAR 1.90. Left RAR 0.87. Right Renal Parenchyma Left Renal Parenchyma Upper Pole Medula 25.6/7.5 PSV/EDV. Left upper pole medulla 33/11.1 Right upper pole medulla EDR 0.3 . PSV/EDV . Right upper pole medulla R.I. Left upper pole medulla EDR 0.3 . 0.71 . Left upper pole medulla R.I. 0.66 . Upper Tyson Cortx 22.3/6.4 PSV/EDV. UP Cortex 14.2/3.8 PSV/EDV. Right upper pole cortex EDR 0.3 . Left upper pole cortex EDR 0.3 . Right upper pole cortex R.I. 0.71 . Left upper pole cortex R.I. 0.73 . Right lower Pole medulla 25.1/5.8 Left lower Pole medulla 24.1/6 PSV/EDV . PSV/EDV . Right lower pole medulla EDR 0.2 . Left lower pole medulla EDR 0.2 . Right lower pole medulla R.I. Left lower pole medulla R.I. 0.75 . 0.77 . Lower Pole Cortx 17/5.4 PSV/EDV. Lower Pole Cortex 13/4.7 PSV/EDV. Left lower pole cortex EDR 0.3 . Right lower pole cortex EDR 0.4 . Left lower pole cortex R.I. 0.68 . Right lower pole cortex R.I. 0.64 . Left Renal Hilar Right Renal Hilar LT Hilar avg 49.2/12.7 PSV/EDV . Right Hilar avg 65.5/16 PSV/EDV. Left hilar acceleration time 70 Right hilar acceleration time 50 m/sec. m/sec. Left Renal Dimensions Right Renal Dimensions Left kidney size 11.44 cm . Right kidney size 11.66 cm . Left cortical dimension 1.90 cm . Right cortical dimension 1.56 cm . Aorta Proximal abdominal aorta 2.16 x 2.16 cm . Proximal abdominal aorta peak systolic velocity is 75.7 cm/sec . Distal abdominal aorta 1.85 x 1.67 cm . Distal abdominal aorta peak systolic velocity is 75.7 cm/sec . VL/Renal Artery Duplex Ultrasound Interpretation Summary Right renal artery patent with normal velocities and no evidence of stenosis. Left renal artery patent with normal velocities and no evidence of stenosis. Right renal vein patent. Left renal vein patent. Right kidney normal in size. Left kidney normal in size. Ordering Physician: Denisa Macias Referring Physician: Denisa Macias Performed By: Chela Dunham RVT
--- NOTE | 2024-04-16 09:05 | ECHOD_ITS ---
Reason For Study: HTN EMERGENCY Procedure This was a 2D Doppler, Color Flow transthoracic echocardiogram. Exam performed in department. Left Ventricle Normal LV size. Moderate concentric left ventricular hypertrophy. Left ventricular systolic function is normal. The left ventricular ejection fraction is 60 %. No regional wall motion abnormalities noted. Right Ventricle Normal RV size. Normal systolic function. Atria Normal left atrium. Normal right atrium. Mitral Valve Normal mitral valve. Tricuspid Valve Normal tricuspid valve. Aortic Valve Trisinus/trileaflet aortic valve. Moderate focal aortic valve calcification. Peak aortic valve gradient 46 mmHg. Mean aortic valve gradient 28 mmHg. Mild (1+) aortic valve insufficiency. Pulmonic Valve Normal pulmonic valve. Great Vessels Normal aortic root. The pulmonary artery is normal size. Inferior vena cava collapse with respiration. Pericardium/Pleural No pericardial effusion. MMode/2D Measurements & Calculations LVIDd: 4.3 cm IVSd: 1.4 cm LVOT diam: 1.9 cm LVIDs: 3.0 cm LVPWd: 1.8 cm LVOT area: 2.9 cm2 FS: 29.1 % Ao root diam: 3.7 cm LAV(MOD-bp): 51.3 ml LVAd ap4: 37.7 cm2 LAV(MOD-bp) Indexed: 25.0 ml/m2 LVLd ap4: 9.0 cm LAV(MOD-sp2): 52.2 ml EDV(MOD-sp4): 128.0 ml LAV(MOD-sp4): 48.9 ml EDV(sp4-el): 133.5 ml LVAs ap4: 17.7 cm2 LVLs ap4: 7.2 cm ESV(MOD-sp4): 39.6 ml ESV(sp4-el): 37.0 ml EF(MOD-sp4): 69.1 % EF(sp4-el): 72.3 % SV(MOD-sp4): 88.4 ml SV(sp4-el): 96.5 ml LA A4 area: 18.6 cm2 SI(MOD-sp4): 43.1 ml/m2 LA dimension(2D): 3.9 cm RA A4 area: 14.1 cm2 Time Measurements MV dec time: 0.16 sec Doppler Measurements & Calculations MV E max manav: 91.6 cm/sec Lat Peak E' Manav: 8.2 cm/sec Med Peak E' Manav: 6.0 cm/sec MV A max manav: 84.7 cm/sec E/E' lat: 11.1 E/E' med: 15.4 MV E/A: 1.1 MV V2 max: 96.8 cm/sec Ao V2 max: 337.4 cm/sec MV max P.8 mmHg MV dec slope: 562.3 cm/sec2 Ao max P.5 mmHg MV V2 mean: 53.9 cm/sec Ao V2 mean: 251.6 cm/sec MV mean P.4 mmHg Ao mean P.7 mmHg MV V2 VTI: 37.2 cm Ao V2 VTI: 82.6 cm AI max manav: 425.4 cm/sec PA V2 max: 93.3 cm/sec AI max P.4 mmHg PA V2 mean: 65.7 cm/sec AI dec slope: 204.4 cm/sec2 AI P1/2t: 609.7 msec ECHO/Echo Complete Interpretation Summary Left ventricular systolic function is normal. Normal LV size. The left ventricular ejection fraction is 60 %. Moderate concentric left ventricular hypertrophy. Moderate focal aortic valve calcification. Mean aortic valve gradient 28 mmHg. Mild (1+) aortic valve insufficiency. Ordering Physician: Denisa Macias Referring Physician: Denisa Macias Performed By: Lillian Velazquez RCS
== END | disposition home or self-care (01) ==
LOC: CVS 09:03
PROVIDERS: PCP Internal Medicine; Referring Provider Internal Medicine; Visit Provider Internal Medicine
DX: I10 Essential (primary) hypertension (principal); I16.0 Hypertensive urgency; G45.9 Transient cerebral ischemic attack, unspecified
CPT/HCPCS: 93306; 93975

== ENCOUNTER → 2024-05-26 | Outpatient (CLI) | payer MEDICARE, OTHER, SELFPAY ==
--- NOTE | 2024-05-26 07:27 | CDU_ITS ---
Reason For Study Reason For Study: TIA Rt. Velocities/BP Lt. Velocities/BP Prox CCA 68.3/12.6 cm/sec. Prox CCA 69.5/14.7 cm/sec. Mid CCA 50.6/10.0 cm/sec. Mid CCA 70.5/14.7 cm/sec. Dist CCA 45.9/8.1 cm/sec. Dist CCA 49.7/12.8 cm/sec. Prox ICA 76.8/22.0 cm/sec. Prox ICA 69.5/20.4 cm/sec. Mid ICA 59.1/16.6 cm/sec. Mid ICA 67.0/25.3 cm/sec. Dist ICA 56.3/17.6 cm/sec. Dist ICA 73.2/29.0 cm/sec. Rt. ICA/CCA = 76.8/50.6=1.5. Lt. ICA/CCA = 73.2/70.5=1.0. Prox ECA 52.1/7.7 cm/sec. Prox ECA 91.6/10.6 cm/sec. Rt. Vert. 58.2/14.7 cm/sec. Lt. Vert. 48.6/14.2 cm/sec. Right Extracranial There is intimal thickening but no significant atherosclerotic plaque noted in the right common carotid artery. There is heterogeneous, irregular atherosclerotic plaque noted in the right internal carotid artery. The atherosclerotic plaque causes acoustic shadowing. There is intimal thickening but no significant atherosclerotic plaque noted in the right external carotid artery. Antegrade flow is noted in the right vertebral artery. Left Extracranial There is intimal thickening but no significant atherosclerotic plaque noted in the left common carotid artery. There is heterogeneous, irregular atherosclerotic plaque noted in the left internal carotid artery. The atherosclerotic plaque causes acoustic shadowing. There is intimal thickening but no significant atherosclerotic plaque noted in the left external carotid artery. Antegrade flow is noted in the left vertebral artery. Procedure Carotid Duplex 24932. This is a Carotid Duplex examination using B-mode, color flow and specral Doppler. Exam performed in department. VL/Carotid Duplex Ultrasound Interpretation Summary Mild (<50%) stenosis right extracranial internal carotid. Mild (<50%) stenosis left extracranial internal carotid. Patent and antegrade vertebrals bilaterally. Ordering Physician: Denisa Macias Referring Physician: Marcelo Dela Cruz Performed By: Guillermina Dempsey, MIKE, RVT
[2024-05-26 08:03] LABS: Erythrocyte Sedimentation Rate 4 mm/hr (0-20)
[2024-05-26 08:06] LABS: Absolute Lymphocyte Count 1.46 X10^3/uL (0.83-4.51); Absolute Neutrophil Count 3.6 X10^3/uL (2.0-7.7); Basophil# 0.04 X10^3/uL; Basophil% 0.7 % (0-1); Eosinophil# 0.19 X10^3/uL; Eosinophils% 3.3 % (0-5); Hematocrit 34.4 % (40-54); Hemoglobin 10.9 g/dL (13.0-16.5); Lymphocyte # 1.46 X10^3/ul (0.83-4.51); Lymphocyte % 25.1 % (19-41); Mean Corp Hgb Conc 31.7 g/dL (32-36); Mean Corpuscular Hgb 27.5 pg (27.0-32.0); Mean Corpuscular Volume 86.6 fL (80-94); Monocyte% 8.6 % (0-10); NRBC Flagged by Analyzer 0 % (0-5); Neutrophil # 3.59 X10^3/uL (2.7-7.7); Neutrophil % 61.6 % (47-70); Platelet Count 211 K/mm3 (150-450); RBC Distribution Width CV 13.9 % (11.6-14.6); RBC Distribution Width SD 43.8 fl (35.1-43.9); Red Blood Count 3.97 M/mm3 (4.6-6.2); White Blood Count 5.8 K/mm3 (4.4-11.0)
[2024-05-26 08:36] LABS: Ferritin 80 ng/mL (37-417)
[2024-05-26 10:24] LABS: ALB/GLOB Ratio 1.6 RATIO (0.9-2.4); AST(SGOT) 16 U/L (<=37); Alanine Aminotransfer ALT/SGPT 12 U/L (<=46); Albumin, Serum 3.8 g/dL (3.4-4.8); Alkaline Phosphatase 96 U/L (40-129); Anion Gap 10 (5-15); BUN 19 mg/dL (4-19); BUN/Creat Ratio 14.6 RATIO (10-20); CRP < 3.00 mg/L (0.0-3.0); Calcium,Total 9.6 mg/dL (7.6-11.0); Carbon Dioxide 24.4 mmol/L (21.0-32.0); Chloride 107 mmol/L (98-108); Creatinine, Serum 1.31 mg/dL (0.70-1.20); EST Glomerular Filtration Rate 55 (>60); Globulin 2.4 g/dL (2.2-4.2); Glucose 246 mg/dL (70-99); Magnesium 1.5 mg/dL (1.5-2.2); Potassium 4.7 mmol/L (3.3-5.1); Protein, Total 6.3 g/dL (5.9-8.4); Sodium Level 142 mmol/L (133-145); Total Bilirubin 0.27 mg/dL (0.00-1.30)
[2024-05-26 10:35] LABS: LDH 146 U/L (87-241)
[2024-05-26 10:38] LABS: Iron 89 ug/dL (65-175); Iron Binding Capacity,Total 275 ug/dL (250-450); Iron Binding Capacity,Unsat 186 ug/dL (228-428)
[2024-05-27 19:07] LABS: Deamidated Gliadin IgA 2 units (0-19); Deamidated Gliadin IgG 1 units (0-19); Endomysial Antibody IgA Negative (Negative); Immunoglobulin A 159 mg/dL (61-437); t-Transglutaminase IgA 6 U/mL (0-3)
== END | disposition home or self-care (01) ==
LOC: CVS 07:26
PROVIDERS: Internal Medicine Medical Oncology; PCP Internal Medicine; Referring Provider Psychiatry & Neurology Neurology; Visit Provider Psychiatry & Neurology Neurology
DX: R29.818 Other symptoms and signs involving the nervous system (principal); E61.1 Iron deficiency; Z86.73 Personal history of transient ischemic attack (TIA), and cerebral infarction without residual deficits
CPT/HCPCS: 36415; 80053; 82728; 82784; 83516; 83540; 83550; 83615; 83735; 84100; 85025; 85652; 86140; 86255; 93880

== ENCOUNTER → 2024-05-27 | Outpatient (CLI) | payer MEDICARE, OTHER, SELFPAY ==
--- NOTE | 2024-05-27 11:12 | MRI_ITS ---
PROCEDURE: MRI brain without and with IV contrast REASON FOR EXAM: Neurologic deficit TECHNIQUE: Multisequence multiplanar MR images of the brain were obtained before and after the administration of intravenous contrast. 17 mL of Clariscan were administered. COMPARISON: 04/06/2024 FINDINGS: No diffusion restriction to suggest acute/subacute ischemia. No acute intracranial hemorrhage, midline shift or mass effect. No chronic microhemorrhage. No pathologic enhancement. Moderate generalized cerebral atrophy and chronic small-vessel ischemic disease. No hydrocephalus. Globes are intact. Paranasal sinuses and mastoid air cells are relatively clear. Trace bilateral maxillary mucosal thickening. MRI/Brain W/WO Contrast IMPRESSION: 1. No acute intracranial abnormality or pathologic enhancement. 2. Atrophy and chronic small-vessel ischemic disease. Reading Location: [facility]
== END | disposition home or self-care (01) ==
LOC: MRI 10:58
PROVIDERS: PCP Internal Medicine; Referring Provider Psychiatry & Neurology Neurology; Visit Provider Psychiatry & Neurology Neurology
DX: R29.818 Other symptoms and signs involving the nervous system (principal); Z86.73 Personal history of transient ischemic attack (TIA), and cerebral infarction without residual deficits
CPT/HCPCS: 70553; A9575

== ENCOUNTER → 2024-10-02 | Outpatient (CLI) | payer MEDICARE, OTHER, SELFPAY ==
--- NOTE | 2024-10-02 15:03 | RAD_ITS ---
PROCEDURE: HIP, UNI W/ PELVIS 2-3 VIEWS 10/02/2024 REASON FOR EXAM: HIP PAIN TECHNIQUE: HIP, UNI W/ PELVIS 2-3 VIEWS COMPARISON: None FINDINGS: The bones are osteoporotic. Normal femoral head, neck, intertrochanteric region and visualized proximal femur. Normal acetabulum. Normal hip joint. Normal visualized superior and inferior pubic rami and ischial tuberosities. RAD/HIP, UNI W/ Pelvis 2-3 Views IMPRESSION: Osteoporosis. No fracture or dislocation. Reading [facility]
== END | disposition home or self-care (01) ==
LOC: MTRAD 15:00
PROVIDERS: PCP Internal Medicine; Referring Provider Internal Medicine; Visit Provider Internal Medicine
DX: M25.551 Pain in right hip (principal)
CPT/HCPCS: 73502

== ENCOUNTER → 2024-10-22 | Outpatient (CLI) | payer MEDICARE, OTHER, SELFPAY | END | disposition home or self-care (01) | LOC: OPBD 13:35 | PROVIDERS: PCP Internal Medicine; Referring Provider Internal Medicine; Visit Provider Internal Medicine | DX: M81.0 Age-related osteoporosis without current pathological fracture (principal) | CPT/HCPCS: 77080 ==

== ENCOUNTER → 2024-10-27 | Outpatient (CLI) | payer MEDICARE, OTHER, SELFPAY ==
--- NOTE | 2024-10-27 09:00 | PET_ITS ---
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 A preliminary CT study encompassing the Skull base, neck, chest, abdomen, pelvis, and proximal thighs was performed for purposes of attenuation correction and anatomic localization. The proximal thighs were also included. The patient's blood glucose level was 105 mg/dL (allowable range: 50-180 mg/dL). RADIOPHARMACEUTICAL: 13.462 mCi 18F-FDG (Fluorodeoxyglucose F18) IV was injected into he patient. RADIATION DOSE SUMMARY: Effective Dose: Approximately 7 mSv for a standard whole-body PET scan Organ Doses: Varies by organ, with higher doses typically to the bladder, liver, and brain COMPARISON: COMPARISON FROM CT, PET OR OTHER PERTINENT EXAMS: None provided.. FINDINGS: Physiologic uptake: There may be expected metabolic uptake within the brain, tongue and floor of the mouth and larynx/vocal cords, heart, odette (many normal individuals have hilar uptake in less than 3 nodes with mildly avid hilar nodes less than 2.7 SUV), liver and spleen, system, and GI tract and symmetric muscle uptake. FDG AVID AND NON-AVID LESIONS. Reported avid SUV values (g/mL*) are maximum SUV. NECK: There are no significant neck abnormalities. CHEST: Moderate coronary artery calcification is seen. Chest wall- There are no significant chest wall abnormalities. Axilla- There are no significant axillary abnormalities. Lung parenchyma- No hypermetabolic focus is seen within the lung parenchyma. No concerning lung nodule is identified. Mediastinum- There are no significant hilar or mediastinal adenopathy. Pleura- There are no significant pleural abnormalities. ABDOMEN: Stomach- No significant abnormalities. Liver- No significant abnormalities. Spleen- No significant abnormalities. Pancrease- No significant abnormalities. Kidneys- No significant abnormalities. Bowel- Normal bowel activity. Spine- No significant abnormalities. Moderate aortic and iliac artery calcification; no evidence of abdominal aortic aneurysm. PELVIS: Bowel- Normal physiologic bowel activity is identified. Masses- There are no pelvic masses. Bones- Prominent degenerative changes are seen throughout the spine, particularly lumbar and cervical regions. With the use of bone window settings, there are no osteolytic or osteoblastic lesions. There are no FDG avid lesions within the visualized portion of the axial skeleton. PET/PET/CT Tumor Base -Thigh Init IMPRESSION: FDG avid- No significant avid lesions. Other: 1. Moderate coronary artery calcification is noted. 2. Moderate aortic and iliac artery calcification; no evidence of abdominal aor tic aneurysm. 3. Prominent degenerative changes throughout the spine, particularly lumbar and cervical regions. Please note the low-dose CT scan was performed to facilitate PET image reconstr uction and anatomic localization and does not replace a diagnostic CT. Any diagnostic CT requested and performed at the time of the PET will be reported separately. Reading Location: [place] [id number]
== END | disposition home or self-care (01) ==
PROVIDERS: PCP Internal Medicine; Referring Provider Internal Medicine Pulmonary Disease; Visit Provider Internal Medicine Pulmonary Disease
DX: R91.1 Solitary pulmonary nodule (principal); J43.2 Centrilobular emphysema; G47.10 Hypersomnia, unspecified
CPT/HCPCS: 78815; A9552

== ENCOUNTER 2024-12-01 15:30 | Outpatient (RCR) | payer OTHER, MEDICARE, SELFPAY ==
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
--- NOTE | 2024-12-01 16:32 | HP.PTDCSUM ---
Discharge Summary D/C summary: It has been my pleasure to treat TOMMY KLEIN referred by Dr. Denisa Macias DO, with the diagnosis of Neck and LBP for a total of 91 visit(s). Discharge Date: Please see the following information for a summary of their discharge status. Subjective Subjective: Pt reports he is really doing well. Would like to try things on his own. Pain Neck: Pain Intensity (Out of 10): 3 LB: Pain Intensity (Out of 10): 4 Overall Improvement % Improvement: 80 Objective Objective/Function: ROM: C/s SB ROM is minimally limited. Neck pain is 3/10, LBP is 4/10 Pt is I with HEP Rx goals achieved Goals Goal 1:: Decrease neck pain x 50% to aid with sleep Goal Progress: Goal Met Goal 2:: Increase c/s ROM x 1 grade to aid with IADL's Goal Progress: Goal Met Goal 3:: I with HEP Goal Progress: Goal Met Goal 4:: Decrease LBP x 50% to aid with sleep Goal Progress: Goal Met Plan Plan: Discharge to HEP D/C Information d/c sentence: If there are questions or concerns regarding this patient's physical therapy, please feel free to call me at [phone]. Thank you for the referral of this patient. Sincerely, Aftab Mendez, PT, ATC Balance/Gait/Functional tests Balance/Special Test Scores Oswestry Neck Score: 13 Improvement % Improvement: 80
== END 2024-12-01 19:00 | disposition home or self-care (01) ==
LOC: PT 15:30
PROVIDERS: PCP Internal Medicine; Referring Provider Internal Medicine; Visit Provider Internal Medicine
DX: M50.30 Other cervical disc degeneration, unspecified cervical region (principal)
CPT/HCPCS: 97110; 97140; 97161; 97530